=== PATIENT | female | born 1950 | race Caucasian/White ===

== ENCOUNTER 2018-03-09 00:25 | Outpatient (CLI) | payer OTHER, SELFPAY ==
--- NOTE | 2018-03-09 16:17 | DI.MAMMO_ITS ---
SYMPTOM/DIAGNOSIS: SCREENING, Z12.31 MAMMOGRAMS: Mammograms were interpreted according to the usual protocol including computer analysis with CAD system, tomosynthesis and C view imaging. The breast tissue is heterogeneously radiodense which lowers the sensitivity of the study. There is no dominant mass. There are no suspicious calcifications. When compared with the previous images, there is a question regarding interval development of a small area of nodularity in the superior portion of the left breast. Further evaluation of this patient with a craniocaudad and mediolateral compression spot film and ultrasound is recommended to rule out the possibility of a small malignancy. IMPRESSION: Category 0. Breast density, category C. Further evaluation with compression spot films and ultrasound. SA ASSESSMENT OF FINDINGS: Incomplete: Needs additional imaging evaluation. Category 0. Patient will receive a letter notifying them of these results. Bi-RADS category C. The breasts are heterogeneously dense, which may obscure small masses.
== END 2018-03-09 00:45 ==
PROVIDERS: PCP Family Medicine; Visit Provider Family Medicine
DX: Z12.31 Encounter for screening mammogram for malignant neoplasm of breast (principal); R92.8 Other abnormal and inconclusive findings on diagnostic imaging of breast
CPT/HCPCS: 77063; 77067

== ENCOUNTER 2018-03-14 01:17 | Outpatient (CLI) | payer OTHER, SELFPAY ==
--- NOTE | 2018-03-14 10:02 | DI.MAMMO_ITS ---
SYMPTOM/DIAGNOSIS: F/U MAMMO, NODULARITY LEFT BREAST ADDITIONAL VIEWS: Additional images are interpreted according to the usual protocol including tomosynthesis and 2D imaging. CC and MLO spot compression views were performed of the upper and central portions of the left breast for a questioned nodular asymmetry. No persistent abnormality or change is seen on the additional views performed. The findings are consistent with overlying fibroglandular tissue. IMPRESSION: Category 1B, negative mammogram. Yearly screening mammography is recommended. RUST ASSESSMENT OF FINDINGS: Negative. Category 1. Patient will receive a letter notifying them of these results. BI-RADS category B. There are scattered areas of fibroglandular density.
== END 2018-03-14 01:37 ==
PROVIDERS: PCP Family Medicine; Visit Provider Family Medicine
DX: Z12.31 Encounter for screening mammogram for malignant neoplasm of breast (principal); R92.8 Other abnormal and inconclusive findings on diagnostic imaging of breast; N64.59 Other signs and symptoms in breast
CPT/HCPCS: 77063; 77067

== ENCOUNTER 2018-05-10 12:17 | Outpatient (CLI) | payer OTHER, SELFPAY ==
[2018-05-10 12:51] LABS: Abs Immature Grans 0.01 k/cumm (0.0-0.09); Absolute Basophil Count 0.03 k/cumm (0.0-0.2); Absolute Eosinophil Count 0.18 k/cumm (0.0-0.7); Absolute Lymphocyte Count 1.19 k/cumm (1.2-3.4); Absolute Monocyte Count 0.57 k/cumm (0.11-0.7); Absolute Neutrophil Count 3.54 k/cumm (1.2-6.7); Basophils % 0.5; Eosinophils % 3.3; HCT 37.5 % (36.0-46.0); Immature Grans % 0.2; Lymphocytes % 21.6; Mean Corp. HGB Concentration 34.7 g/dL (32.0-36.0); Mean Corpuscular Hemoglobin 32.4 pg (27.0-33.0); Mean Corpuscular Volume 93.5 fL (80-95); Mean Platelet Volume 8.7 fL (8.0-11.0); Monocytes % 10.3; Neutrophils % 64.1; Platelet Count 200 x1000/uL (130-400); RBC 4.01 m/cumm (4.00-5.20); White Blood Cell Count 5.52 k/cumm (4.4-10.8)
[2018-05-10 13:08] LABS: ALT 35 U/L (12-78); AST 23 U/L (15-37); Albumin 4.2 g/dL (3.4-5.0); Alkaline Phosphatase 98 U/L (46-116); Anion Gap 10.2 mmol/L (3-11); BUN 30 mg/dL (7-18); Bilirubin, Total 0.8 mg/dL (0.2-1.0); CO2 29.8 mmol/L (21.0-32.0); CREATININE 1.12 mg/dL (0.55-1.02); Chloride 100 mmol/L (98-107); Estimated GFR 48.82 (mL/min/1.73m2); Glucose 91 mg/dL (70-100); LDH 205 U/L (81-234); Sodium 140 mmol/L (136-145); Total Protein 7.8 g/dL (6.4-8.2)
== END 2018-05-10 12:37 ==
PROVIDERS: PCP Family Medicine; Visit Provider Internal Medicine Hematology & Oncology
DX: C83.30 Diffuse large B-cell lymphoma, unspecified site (principal); Z94.81 Bone marrow transplant status
CPT/HCPCS: 36415; 80053; 83615; 85025

== ENCOUNTER 2018-05-25 00:37 | Outpatient (CLI) | payer OTHER, SELFPAY ==
--- NOTE | 2018-05-25 13:55 | MERGE_ITS ---
*[facility]* *[facility]* [address] [place] [address] Date of study: 05/25/2018 Transthoracic Echocardiography M-mode, complete 2D, complete spectral Doppler, and color Doppler *STUDY CONCLUSIONS* Summary: 1. Left ventricle: The cavity size was normal. Systolic function was at the lower limits of normal. The estimated ejection fraction was 50-55%. Some parameters suggest diastolic dysfunction. There was no evidence of elevated ventricular filling pressure by Doppler parameters. 2. Mitral valve: There was moderate regurgitation. 3. Right ventricle: The cavity size was normal. Wall thickness was normal. Systolic function was normal. 4. Atrial septum: No defect or patent foramen ovale was identified. 5. Tricuspid valve: There was mild-moderate regurgitation. 6. Pulmonary arteries: Pulmonary systolic pressure was in the range of 15mm Hg to 25mm Hg. 7. Inferior vena cava: The vessel was patent and normal in size. The respirophasic diameter changes were in the normal range (greater than or equal to 50%), consistent with normal central venous pressure. *PATIENT PRESENTATION* Height: 157.5cm ((62in) ) S/D Pressure: 93 / 54 Weight: 66.7kg ((146.7lb) ) BSA: 1.73m^2 Test start time: 02:10 PM. Test stop time: 03:10 PM. CONSULTING Belén Griffin PERFORMING Unknown PERFORMING [facility] TRANSONIC ENGINEER Hanna Montgomery, (R)(CT), [facility] ORDERING Gabi Easley REFERRING Gabi Easley *PROCEDURE DATA* Procedure information: The patient was identified by two identifiers. This study was interpreted by [facility]. Pertinent images and digital data are archived for permanent storage and are available for subsequent review. No prior study was available for comparison. Study status: Routine. Transthoracic echocardiography. M-mode, complete 2D, complete spectral Doppler, and color Doppler. A Transthoracic Echocardiogram was performed. Scanning was performed from the parasternal, apical, subcostal, and suprasternal notch acoustic windows. Images were obtained using an [id number] cardiac ultrasound machine. Image quality was good. Study completion: The patient tolerated the procedure well. 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 *CARDIAC ANATOMY* Left ventricle: The cavity size was normal. Systolic function was at the lower limits of normal. The estimated ejection fraction was 50-55%. The tissue Doppler parameters were abnormal. Some parameters suggest diastolic dysfunction. There was no evidence of elevated ventricular filling pressure by Doppler parameters. Aortic valve: Trileaflet. Doppler: There was no stenosis. There was no regurgitation. VTI ratio of LVOT to aortic valve: 0.74. Valve area (VTI): 2.3cm^2. Indexed valve area (VTI): 1.3cm^2/m^2. Peak velocity ratio of LVOT to aortic valve: 0.71. Valve area (Vmax): 2.2cm^2. Indexed valve area (Vmax): 1.3cm^2/m^2. Mean velocity ratio of LVOT to aortic valve: 0.61. Valve area (Vmean): 1.9cm^2. Indexed valve area (Vmean): 1.1cm^2/m^2. Mean gradient (S): 2.6mm Hg. Peak gradient (S): 4.4mm Hg. Aorta: Aortic root: The aortic root was normal in size. Ascending aorta: The ascending aorta was normal in size. Mitral valve: Doppler: There was no evidence for stenosis. There was moderate regurgitation. Valve area by pressure half-time: 3.7cm^2. Indexed valve area by pressure half-time: 2.2cm^2/m^2. Left atrium: The atrium was normal in size. Atrial septum: No defect or patent foramen ovale was identified. Right ventricle: The cavity size was normal. Wall thickness was normal. Systolic function was normal. Pulmonic valve: Doppler: There was no evidence for stenosis. There was no significant regurgitation. Tricuspid valve: Doppler: There was mild-moderate regurgitation. Pulmonary artery: Poorly visualized. Pulmonary systolic pressure was in the range of 15mm Hg to 25mm Hg. Right atrium: The atrium was normal in size. Pericardium: There was no pericardial effusion. Systemic veins: Inferior vena cava: Well visualized. The vessel was patent and normal in size. The respirophasic diameter changes were in the normal range (greater than or equal to 50%), consistent with normal central venous pressure. Baseline ECG: Normal sinus rhythm. Measurements Left ventricle Value Reference LV ID, ED, PLAX 4.3 cm 3.5 - 6.0 LV ID, ES, PLAX 2.8 cm 2.1 - 4.0 LV PW thickness, ED, PLAX 0.8 cm LV end-diastolic volume, 1-p A2C 51 ml LV ejection fraction, 1-p A2C 52 % LV end-diastolic volume, 1-p A4C 64 ml LV ejection fraction, 1-p A4C 49 % LV e', lateral 0.067 m/sec LV E/e', lateral 9 LV e', medial 0.046 m/sec LV E/e', medial 13 LV e', average 0.057 m/sec LV E/e', average 10 Ventricular septum Value Reference IVS thickness, ED, PLAX 0.8 cm LVOT Value Reference LVOT ID, A-P 2.0 cm LVOT area 3.1 cm^2 LVOT peak velocity, S 0.74 m/sec LVOT mean velocity, S 0.47 m/sec LVOT VTI, S 15.6 cm LVOT peak gradient, S 2.2 mm Hg LVOT mean gradient, S 1 mm Hg Stroke volume (SV), LVOT DP 48 ml Stroke index (SV/bsa), LVOT DP 28 ml/m^2 Aortic valve Value Reference Aortic valve peak velocity, S 1 m/sec Aortic valve mean velocity, S 0.77 m/sec Aortic valve VTI, S 21.0 cm Aortic mean gradient, S 2.6 mm Hg Aortic peak gradient, S 4.4 mm Hg VTI ratio, LVOT/AV 0.74 Aortic valve area, VTI 2.3 cm^2 Velocity ratio, peak, LVOT/AV 0.71 Aortic valve area, peak velocity 2.2 cm^2 Velocity ratio, mean, LVOT/AV 0.61 Aortic valve area, mean velocity 1.9 cm^2 Aortic valve area/bsa, mean velocity 1.1 cm^2/m^2 Aorta Value Reference Aortic root ID, ED 2.9 cm Ascending aorta ID, A-P, S 2.8 cm Left atrium Value Reference LA ID, A-P, ES 3.4 cm LA ID/bsa, A-P 2.0 cm/m^2 <=2.2 LA area, ES, A4C 14.2 cm^2 8.8 - 23.4 LA area, ES, A2C 15 cm^2 LA volume/bsa, ES, 1-p A4C 23 ml/m^2 LA volume, ES, 2-p 38 ml LA volume/bsa, ES, 2-p 22 ml/m^2 LA/aortic root ratio 1.15 Mitral valve Value Reference Mitral E-wave peak velocity 0.58 m/sec Mitral A-wave peak velocity 0.86 m/sec Mitral deceleration time 203 ms 150 - 230 Mitral pressure half-time 59 ms Mitral E/A ratio, peak 0.68 Mitral valve area, PHT, DP 3.7 cm^2 Tricuspid valve Value Reference Tricuspid regurg peak velocity 2.1 m/sec Tricuspid peak RV-RA gradient 17.5 mm Hg Right atrium Value Reference RA area, ES, A4C 10.4 cm^2 8.3 - 19.5 Legend: (L) and (H) enio values outside specified reference range. I have personally reviewed the images and have reviewed and edited the reported findings. Electronically signed by Joshua Newton MD 05/25/2018 17:38
== END 2018-05-25 00:57 ==
PROVIDERS: PCP Family Medicine; Visit Provider Nurse Practitioner Family
DX: C83.30 Diffuse large B-cell lymphoma, unspecified site (principal); Z92.21 Personal history of antineoplastic chemotherapy; Z94.81 Bone marrow transplant status; I08.1 Rheumatic disorders of both mitral and tricuspid valves
CPT/HCPCS: 93306

== ENCOUNTER 2018-11-28 13:01 | Outpatient (CLI) | payer OTHER, SELFPAY ==
[2018-11-28 13:34] LABS: Abs Immature Grans 0.01 k/cumm (0.0-0.09); Absolute Basophil Count 0.02 k/cumm (0.0-0.2); Absolute Eosinophil Count 0.16 k/cumm (0.0-0.7); Absolute Lymphocyte Count 1.17 k/cumm (1.2-3.4); Absolute Monocyte Count 0.44 k/cumm (0.11-0.7); Absolute Neutrophil Count 3.53 k/cumm (1.2-6.7); Basophils % 0.4; HCT 35.4 % (36.0-46.0); HGB 11.9 g/dL (12.0-15.5); Immature Grans % 0.2; Mean Corp. HGB Concentration 33.6 g/dL (32.0-36.0); Mean Corpuscular Hemoglobin 31.8 pg (27.0-33.0); Mean Corpuscular Volume 94.7 fL (80-95); Mean Platelet Volume 8.7 fL (8.0-11.0); Monocytes % 8.3; Neutrophils % 66.1; Platelet Count 207 x1000/uL (130-400); RBC 3.74 m/cumm (4.00-5.20); RBC Distribution Width 12.3 % (11.7-14.6); White Blood Cell Count 5.33 k/cumm (4.4-10.8)
[2018-11-28 14:14] LABS: ALT 50 U/L (14-59); AST 21 U/L (15-37); Albumin 3.9 g/dL (3.4-5.0); Alkaline Phosphatase 101 U/L (46-116); Anion Gap 8.6 mmol/L (3-11); BUN 31 mg/dL (7-18); Bilirubin, Total 0.6 mg/dL (0.2-1.0); CO2 31.4 mmol/L (21.0-32.0); CREATININE 0.93 mg/dL (0.55-1.02); Calcium 9.6 mg/dL (8.5-10.1); Chloride 103 mmol/L (98-107); Glucose 103 mg/dL (70-100); LDH 197 U/L (81-234); Potassium 3.7 mmol/L (3.5-5.1); Sodium 143 mmol/L (136-145)
== END 2018-11-28 13:21 ==
PROVIDERS: PCP Family Medicine; Visit Provider Internal Medicine Hematology & Oncology
DX: C83.30 Diffuse large B-cell lymphoma, unspecified site (principal)
CPT/HCPCS: 36415; 80053; 83615; 85025

== ENCOUNTER 2019-06-06 01:49 | Outpatient (CLI) | payer MEDICARE, BC, SELFPAY ==
[2019-06-06 16:04] LABS: Abs Immature Grans 0.01 k/cumm (0.0-0.09); Absolute Basophil Count 0.01 k/cumm (0.0-0.2); Absolute Eosinophil Count 0.16 k/cumm (0.0-0.7); Absolute Lymphocyte Count 1.34 k/cumm (1.2-3.4); Absolute Monocyte Count 0.48 k/cumm (0.11-0.7); Basophils % 0.2; Eosinophils % 3.1; HCT 37.1 % (36.0-46.0); HGB 12.9 g/dL (12.0-15.5); Immature Grans % 0.2 %; Lymphocytes % 25.8; Mean Corp. HGB Concentration 34.8 g/dL (32.0-36.0); Mean Corpuscular Hemoglobin 32.5 pg (27.0-33.0); Mean Corpuscular Volume 93.5 fL (80-95); Mean Platelet Volume 8.8 fL (8.0-11.0); Monocytes % 9.2; Neutrophils % 61.5; Platelet Count 211 x1000/uL (130-400); RBC 3.97 m/cumm (4.00-5.20); RBC Distribution Width 12.4 % (11.7-14.6)
[2019-06-06 16:06] LABS: ALT 35 U/L (14-59); AST 20 U/L (15-37); Albumin 4.1 g/dL (3.4-5.0); Alkaline Phosphatase 100 U/L (46-116); Anion Gap 6.5 mmol/L (3-11); BUN 33 mg/dL (7-18); Bilirubin, Total 0.6 mg/dL (0.2-1.0); CO2 32.5 mmol/L (21.0-32.0); CREATININE 1.05 mg/dL (0.55-1.02); Calcium 9.9 mg/dL (8.5-10.1); Chloride 101 mmol/L (98-107); Estimated GFR 52.43 (mL/min/1.73m2); Glucose 92 mg/dL (74-106); LDH 223 U/L (81-234); Potassium 4.2 mmol/L (3.5-5.1); Sodium 140 mmol/L (136-145); Total Protein 7.8 g/dL (6.4-8.2)
== END 2019-06-06 02:09 ==
PROVIDERS: PCP Family Medicine; Visit Provider Internal Medicine Hematology & Oncology
DX: C83.30 Diffuse large B-cell lymphoma, unspecified site (principal)
CPT/HCPCS: 36415; 80053; 83615; 85025

== ENCOUNTER 2019-07-03 01:32 | Outpatient (CLI) | payer MEDICARE, BC, SELFPAY ==
--- NOTE | 2019-07-03 07:30 | DI.MAMMO_ITS ---
EXAM: MG MAMMO SCREENING CLINICAL HISTORY: screening,Z12.39 TECHNIQUE: Bilateral full field digital CC and MLO mammographic images were obtained with 3D tomosyn thesis and utilizing computer aided detection (CAD). COMPARISON: Available for comparison. FINDINGS: Masses/Architectural Distortion: None seen. There is asymmetric breast tissue in the upper central le ft breast on the mediolateral oblique view. Microcalcifications: No suspicious pleomorphic-type are seen. Skin Thickening/Nipple Retraction: None. IMPRESSION: 1. Asymmetric breast tissue in the upper central left breast on the MLO view. 2. Further evaluation with a spot compression views recommended. Ultrasound may be indicated at that time. BI-RADS Category 0 - Assessment Incomplete: Need additional imaging evaluation Breast Density - Category B - Scattered areas of fibroglandular density A negative radiographic report should not delay biopsy if a dominant or clinically suspicious mass is present. Up to ten percent of cancers are not identified on mammography. A negative report may reinforce clinical impression. Adenosis and dense breasts may obscure an underlying neoplasm. False positive reports average 6 to 10%. Patient will receive a letter notifying them of these results.
--- NOTE | 2019-07-03 14:15 | DI.RAD_ITS ---
EXAM: XR LUMBAR SPINE COMPLETE CLINICAL HISTORY: LBP, DORSALGIA, BACK PAIN, M54.9. TECHNIQUE: 2D digital imaging was performed. COMPARISON: CT CHEST WITH CONTRAST from 02/26/2014 FINDINGS: There are 5 lumbar type vertebral bodies. There is a right convex scoliosis of the thoracolumbar spi ne. No acute fracture or subluxation is identified. Disc space narrowing is seen throughout the lum bar spine with relative sparing of the L5-S1 disc space. Vacuum discs are seen at T12-L1 and L4-L5. Degenerative changes of the facets are present throughout the lumbar spine particularly from L3-4 th rough L5-S1. Moderate amount of retained stool is seen throughout the colon. IMPRESSION: 1. 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 2. Dextroscoliosis of the thoracolumbar spine. 3. Constipation. DATA REPOSITORY: RADIATION DOSE DELIVERED:
--- NOTE | 2019-07-03 14:15 | DI.RAD_ITS ---
EXAM: XR HIP PELVIS ADULT BL CLINICAL HISTORY: hip pain B/L, M25.559. TECHNIQUE: 2D digital imaging was performed. COMPARISON: No exams were available for comparison FINDINGS: BONES: No acute fracture is present. No bony destructive lesion is seen. JOINTS: No dislocation present. SOFT TISSUE: Normal. IMPRESSION: Unrmarkable radiographs of bilat hips. Unremarkable radiographs of the pelvis DATA REPOSITORY: RADIATION DOSE DELIVERED:
== END 2019-07-03 01:52 ==
PROVIDERS: PCP Family Medicine; Visit Provider Family Medicine
DX: Z12.31 Encounter for screening mammogram for malignant neoplasm of breast (principal); R92.8 Other abnormal and inconclusive findings on diagnostic imaging of breast; M25.551 Pain in right hip; M25.552 Pain in left hip; M54.5 Low back pain; M51.36 Other intervertebral disc degeneration, lumbar region; M47.816 Spondylosis without myelopathy or radiculopathy, lumbar region
CPT/HCPCS: 73521; 77063; 77067; 72110

== ENCOUNTER 2019-07-05 02:10 | Outpatient (CLI) | payer MEDICARE, BC, SELFPAY ==
--- NOTE | 2019-07-05 | DI.US_ITS ---
EXAM: MG MAMMO SCREEN CALL BACK UNI CLINICAL HISTORY: F/U MAMMO,ASYMMETRIC BREAST TISSUE,R92.8. TECHNIQUE: Craniocaudal and mediolateral oblique Full Field Digital Mammography views of the left br east with Computer Aided Diagnosis followed by Tomosynthesis and left breast ultrasound. COMPARISON: Priors available for comparison FINDINGS: Mammography/Tomosynthesis: Masses/Architectural Distortion: None seen. Microcalcifictions: No suspicious pleomorphic-type are seen. Skin Thickening/Nipple Retraction: None. Left breast US: Echotexture: Normal appearance of the glandular tissue. Shadowing: No suspicious foci. Cyst: None. Solid lesions: None seen. Ductal dilation: None. IMPRESSION: 1. No evidence of malignancy is noted. 2. Unless there is more urgent need, follow-up screening mammography is recommended, as per [employer] guidelines. 3. The findings were discussed with the patient on the date of the examination. BI-RADS Category 1 - Negative Breast Density - Category B - Scattered areas of fibroglandular density A negative radiographic report should not delay biopsy if a dominant or clinically suspicious mass is present. Up to ten percent of cancers are not identified on mammography. A negative report may reinforce clinical impression. Adenosis and dense breasts may obscure an underlying neoplasm. False positive reports average 6 to 10%. Patient will receive a letter notifying them of these results.
== END 2019-07-05 02:30 ==
PROVIDERS: PCP Family Medicine; Visit Provider Family Medicine
DX: Z12.31 Encounter for screening mammogram for malignant neoplasm of breast (principal); R92.8 Other abnormal and inconclusive findings on diagnostic imaging of breast; N64.59 Other signs and symptoms in breast
CPT/HCPCS: 76642; 77063; 77067

== ENCOUNTER 2019-09-11 09:38 | Outpatient (CLI) | payer MEDICARE, BC, SELFPAY ==
[2019-09-13 23:08] LABS: SARS-CoV-2 RNA Undetected (Undetected); SARS-CoV-2 Specimen Source Nasopharynx
== END 2019-09-11 09:58 ==
PROVIDERS: PCP Family Medicine; Visit Provider Family Medicine
DX: Z11.59 Encounter for screening for other viral diseases (principal)
CPT/HCPCS: U0003

== ENCOUNTER 2019-12-17 03:07 | Outpatient (CLI) | payer OTHER, MEDICARE, SELFPAY ==
[2019-12-17 16:02] LABS: Abs Immature Grans 0.01 10^3/uL (0.0-0.06); Absolute Basophil Count 0.03 10^3/uL (0.0-0.2); Absolute Eosinophil Count 0.14 10^3/uL (0.0-0.7); Absolute Lymphocyte Count 1.27 10^3/uL (1.2-3.4); Absolute Neutrophil Count 3.05 10^3/uL (1.2-6.7); Basophils % 0.6; Eosinophils % 2.7; HGB 11.9 g/dL (11.2-15.7); Immature Grans % 0.2; Lymphocytes % 24.9; MCH 31.8 pg (27.0-33.0); MCV 93.6 fL (80-95); MPV 9.1 fL (8.0-11.0); Monocytes % 11.8; Neutrophils % 59.8; Nucleated RBC 0 %; Platelet Count 180 10^3/uL (130-400); RBC 3.74 10^6/uL (3.93-5.22); RDW 11.9 % (11.7-14.6); RDW-SD 40.7 fL
[2019-12-17 17:04] LABS: ALT 45 U/L (14-59); AST 21 U/L (15-37); Albumin 3.8 g/dL (3.4-5.0); Alkaline Phosphatase 83 U/L (46-116); Anion Gap 7.2 mmol/L (3-11); BUN 37 mg/dL (7-18); Bilirubin, Total 0.6 mg/dL (0.2-1.0); CO2 28.8 mmol/L (21.0-32.0); CREATININE 1.13 mg/dL (0.55-1.02); Calcium 9.8 mg/dL (8.5-10.1); Chloride 104 mmol/L (98-107); Estimated GFR 48.03 (mL/min/1.73m2); Glucose 89 mg/dL (74-106); LDH 203 U/L (81-234); Potassium 3.9 mmol/L (3.5-5.1); Sodium 140 mmol/L (136-145); Total Protein 6.9 g/dL (6.4-8.2)
== END 2019-12-17 03:27 ==
PROVIDERS: PCP Family Medicine; Visit Provider Internal Medicine Hematology & Oncology
DX: C83.30 Diffuse large B-cell lymphoma, unspecified site (principal); Z94.81 Bone marrow transplant status
CPT/HCPCS: 36415; 80053; 83615; 85025

== ENCOUNTER 2020-06-26 02:01 | Outpatient (CLI) | payer OTHER, MEDICARE, SELFPAY ==
[2020-06-27 15:52] LABS: COVID-19 RT-PCR UVMMC Result Negative (Negative)
== END 2020-06-26 02:02 | disposition home or self-care (01) ==
LOC: LBO 02:01
PROVIDERS: PCP Family Medicine; Visit Provider Family Medicine
DX: Z20.822 Contact with and (suspected) exposure to COVID-19 (principal)
CPT/HCPCS: U0003

== ENCOUNTER 2020-07-16 02:57 | Outpatient (CLI) | payer OTHER, MEDICARE, SELFPAY ==
[2020-07-17 13:31] LABS: COVID-19 RT-PCR UVMMC Result Negative (Negative)
== END 2020-07-16 02:58 | disposition home or self-care (01) ==
LOC: LBO 02:57
PROVIDERS: PCP Family Medicine; Visit Provider Family Medicine
DX: Z20.822 Contact with and (suspected) exposure to COVID-19 (principal)
CPT/HCPCS: U0003

== ENCOUNTER 2020-08-05 02:54 | Outpatient (CLI) | payer OTHER, MEDICARE, SELFPAY ==
[2020-08-06 14:22] LABS: COVID-19 RT-PCR UVMMC Result Negative (Negative)
== END 2020-08-05 02:55 | disposition home or self-care (01) ==
LOC: LBO 02:54
PROVIDERS: PCP Family Medicine; Visit Provider Family Medicine
DX: Z20.822 Contact with and (suspected) exposure to COVID-19 (principal)
CPT/HCPCS: U0003

== ENCOUNTER 2021-04-07 02:05 | Outpatient (CLI) | payer OTHER, MEDICARE, SELFPAY ==
--- NOTE | 2021-04-07 06:45 | DI.MAMMO_ITS ---
Exam(s) MAMMO SCREENING EXAM: MAMMO SCREENING CLINICAL HISTORY: screening,z12.39 TECHNIQUE: Mammograms were interpreted according to the usual protocol including computer analysis w [employer] CAD system, tomosynthesis and C-view imaging. COMPARISON: FINDINGS: The breasts are of moderate density with fairly symmetrical distribution of fibroglandular tissue. N o dominant mass or clumped microcalcification is identified in either breast. The current examinatio n is compared with previous examinations including June 2019 and there has been no gross interval foster ge in appearance in comparison with the prior studies. IMPRESSION: No specific evidence of malignancy at this time. Routine screening examinations are suggested at yea rly intervals in this age group according to the ACS ACR guidelines. BI-RADS Category 1 - Negative Breast Density - Category B - Scattered areas of fibroglandular density
== END 2021-04-07 02:25 ==
PROVIDERS: PCP Family Medicine; Visit Provider Family Medicine
DX: Z12.31 Encounter for screening mammogram for malignant neoplasm of breast (principal)
CPT/HCPCS: 77063; 77067

== ENCOUNTER 2021-08-24 15:16 | Outpatient (REF) | payer MEDICARE, OTHER, SELFPAY ==
[2021-08-25 14:40] LABS: COVID-19 RT-PCR UVMMC Result Negative (Negative)
== END 2021-08-24 15:17 | disposition home or self-care (01) ==
LOC: LBN 15:16
PROVIDERS: PCP Family Medicine; Visit Provider Family Medicine
DX: Z20.822 Contact with and (suspected) exposure to COVID-19 (principal)
CPT/HCPCS: U0003

== ENCOUNTER 2022-04-12 02:47 | Outpatient (CLI) | payer MEDICARE, OTHER, SELFPAY ==
[2022-04-12 09:24] LABS: HCT 37.9 % (36.0-46.0); MCH 31.4 pg (27.0-33.0); MCHC 34.3 % (32.0-36.0); MCV 92 fL (80-95); MPV 8.9 fL (8.0-11.0); Platelet Count 183 10^3/uL (130-400); RBC 4.14 10^6/uL (3.93-5.22); RDW 12.3 % (11.7-14.6); RDW-SD 41.1 fL; WBC 5.45 10^3/uL (4.4-10.8)
[2022-04-12 10:12] LABS: Iron 99 ug/dL (50-170)
[2022-04-12 10:25] LABS: TSH (W/Ref FT4) 1.77 uIU/mL (0.36-3.74)
== END 2022-04-12 02:48 | disposition home or self-care (01) ==
LOC: LBO 02:47
PROVIDERS: PCP Family Medicine; Visit Provider Family Medicine
DX: F32.9 Major depressive disorder, single episode, unspecified (principal); C85.90 Non-Hodgkin lymphoma, unspecified, unspecified site
CPT/HCPCS: 36415; 85027; 83540; 84443

== ENCOUNTER 2022-05-07 00:51 | Outpatient (CLI) | payer MEDICARE, SELFPAY ==
--- NOTE | 2022-05-07 08:00 | DI.MAMMO_ITS ---
Exam(s) MAMMO SCREENING EXAM: MAMMO SCREENING CLINICAL HISTORY: screening,Z12.39 TECHNIQUE: Bilateral full field digital CC and MLO mammographic images were obtained with 3D tomosyn thesis and utilizing computer aided detection (CAD). COMPARISON: Available for comparison. FINDINGS: Masses/Architectural Distortion: None seen. Microcalcifications: No suspicious pleomorphic-type are seen. Skin Thickening/Nipple Retraction: None. IMPRESSION: 1. No significant interval change with no specific features of malignancy noted. 2. Unless there is more urgent need, screening mammography is recommended, as per [employer] guidelines. BI-RADS Category 1 - Negative Breast Density - Category B - Scattered areas of fibroglandular density Breast density category C or D implies that the patient has dense breast tissue. Dense breast tissue is very common and is not abnormal but dense breast tissue can make it harder to find cancer on a ma mmogram. Also, dense breast tissue may increase their breast cancer risk. This information about the result of the mammogram report was provided to the patient to raise their awareness. Use this report when you speak with the patient about their risks for breast cancer, which includes their family hist ory. At that time, you may recommend for more screening tests (Ultrasound or MRI) as they might be us eful based on their risk. A negative radiographic report should not delay biopsy if a dominant or clinically suspicious mass is present. Up to ten percent of cancers are not identified on mammography. A negative report may reinforce clinical impression. Adenosis and dense breasts may obscure an underlying neoplasm. False positive reports average 6 to 10%. Patient will receive a letter notifying them of these results.
--- NOTE | 2022-05-07 08:00 | DI.DEXA_ITS ---
Exam(s) XR DEXA BONE DENSITY W/WO RACHEL EXAM: XR DEXA BONE DENSITY W/WO RACHEL CLINICAL HISTORY: OSTEOPOROSIS, M81.0 TECHNIQUE: COMPARISON: CR XR LUMBAR SPINE COMPLETE from 07/03/2019.Comparison DEXA scan is 03/02/2004. FINDINGS: Lateral Spine Image: Unremarkable. No compression deformities identified. Left hip: Total T-Score: -1.9. Compares to -0.9 on the prior examination. Total Z-Score: -0.4 T- and Z-scores: Findings are consistent with osteopenia. Left forearm: Total T-Score: -0.5 Total Z-Score: 1.5 T- and Z-scores: Within normal limits. IMPRESSION: No evidence of osteoporosis.
== END 2022-05-07 01:11 ==
LOC: DI 00:52
PROVIDERS: PCP Family Medicine; Visit Provider Family Medicine
DX: Z12.31 Encounter for screening mammogram for malignant neoplasm of breast (principal); M81.0 Age-related osteoporosis without current pathological fracture; M85.88 Other specified disorders of bone density and structure, other site
CPT/HCPCS: 77063; 77067; 77080

== ENCOUNTER 2023-10-12 08:58 | Outpatient (CLI) | payer MEDICARE, SELFPAY ==
[2023-10-12 08:30] LABS: ESR 7 mm/hr (0-30); HGB 12.5 g/dL (11.2-15.7); MCH 31.7 pg (27.0-33.0); MCHC 34.7 % (32.0-36.0); MCV 91 fL (80-95); Platelet Count 190 10^3/uL (130-400); RBC 3.94 10^6/uL (3.93-5.22); RDW 12.2 % (11.7-14.6); RDW-SD 41.1 fL; WBC 3.94 10^3/uL (4.4-10.8)
[2023-10-12 08:54] LABS: ALT 40 U/L (14-59); AST 22 U/L (15-37); Albumin 3.7 g/dL (3.4-5.0); Alkaline Phosphatase 84 U/L (46-116); Anion Gap 7.7 mmol/L (3-11); BUN 26 mg/dL (7-18); Bilirubin, Total 0.86 mg/dL (0.2-1.0); C-Reactive Protein < 0.50 mg/dL (<or=0.5); CO2 30.3 mmol/L (21.0-32.0); CREATININE 1.3 mg/dL (0.55-1.02); Chloride 102 mmol/L (98-107); Estimated GFR 43.96 (mL/min/1.73m2); Glucose 135 mg/dL (74-106); Potassium 3.7 mmol/L (3.5-5.1); Sodium 140 mmol/L (136-145); Total Protein 7.1 g/dL (6.4-8.2)
[2023-10-12 09:28] LABS: Calculated LDL 178 mg/dL (<100); Cholesterol 277 mg/dL (<200); HDL Cholesterol 89 mg/dL (40-60); Triglyceride 53 mg/dL (<150); Vitamin D 25 Total 54.2 ng/mL (30-100)
[2023-10-12 10:42] LABS: Hemoglobin A1C 5.8 % (<5.7)
== END 2023-10-12 08:59 | disposition home or self-care (01) ==
LOC: LBO 08:59
PROVIDERS: PCP Family Medicine; Visit Provider Family Medicine
DX: C85.90 Non-Hodgkin lymphoma, unspecified, unspecified site (principal); G47.00 Insomnia, unspecified; R53.83 Other fatigue; I10 Essential (primary) hypertension; E03.9 Hypothyroidism, unspecified; R73.09 Other abnormal glucose
CPT/HCPCS: 36415; 80053; 80061; 82306; 85027; 85652; 83036; 84443; 86140

== ENCOUNTER 2023-10-21 08:38 | Outpatient (CLI) | payer MEDICARE, SELFPAY ==
[2023-10-21 07:43] LABS: ESR 5 mm/hr (0-30)
[2023-10-21 09:27] LABS: ALT 42 U/L (14-59); AST 22 U/L (15-37); Albumin 4.2 g/dL (3.4-5.0); Alkaline Phosphatase 95 U/L (46-116); Anion Gap 5.9 mmol/L (3-11); BUN 28 mg/dL (7-18); Bilirubin, Total 1.25 mg/dL (0.2-1.0); CO2 33.1 mmol/L (21.0-32.0); CREATININE 1.1 mg/dL (0.55-1.02); Calcium 10.4 mg/dL (8.5-10.1); Chloride 102 mmol/L (98-107); Estimated GFR 53.72 (mL/min/1.73m2); Glucose 95 mg/dL (74-106); Potassium 4.2 mmol/L (3.5-5.1); Sodium 141 mmol/L (136-145); Total Protein 7.4 g/dL (6.4-8.2); Vitamin B12 764 pg/mL (193-986)
[2023-10-21 09:38] LABS: Uric Acid 5.7 mg/dL (2.6-6.0)
[2023-10-21 18:17] LABS: Rheumatoid Factor <8.6 IU/mL (<12.0)
[2023-10-24 13:40] LABS: ANA Interpretation Positive (Negative)
== END 2023-10-21 08:39 | disposition home or self-care (01) ==
LOC: LBO 08:40
PROVIDERS: PCP Family Medicine; Visit Provider Family Medicine
DX: I10 Essential (primary) hypertension (principal); M25.50 Pain in unspecified joint; G62.9 Polyneuropathy, unspecified; R76.8 Other specified abnormal immunological findings in serum
CPT/HCPCS: 36415; 80053; 85652; 82607; 84550; 86038; 86431

== ENCOUNTER 2023-10-26 03:41 | Outpatient (CLI) | payer MEDICARE, SELFPAY ==
[2023-10-27 16:56] LABS: RNP Ab, IgG <6.0 CU (<20.0); SS-B (La) Ab, IgG <3.3 CU (<20.0); Sm (Smith) Ab, IgG <8.0 CU (<20.0); dsDNA Ab, IgG <22.0 IU/mL (<27.0)
== END 2023-10-26 03:42 | disposition home or self-care (01) ==
LOC: LBO 03:41
PROVIDERS: PCP Family Medicine; Visit Provider Family Medicine
DX: R76.8 Other specified abnormal immunological findings in serum (principal)
CPT/HCPCS: 36415; 86225; 86235

== ENCOUNTER 2023-10-28 00:22 | Outpatient (CLI) | payer MEDICARE, SELFPAY ==
--- OUTSIDE RECORDS SUMMARY | 2023-10-28 00:40 | XMS_ITS | Clinical Summary ---
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 Broke out in maculopapular pruritic dermatitis on abdomen, chest, forehead and upper back. Medications Medication Sig Dispensed Refills Start Date End Date Status diphenhydrAMINE-acetam inophen (TYLENOL PM) 25-500 mg TabletIndications:Othe r drug-induced neutropenia Take by mouth every evening. Reported on 03/24/2016 Active acetaminophen (TYLENOL) 500 mg Tablet Take 1,000 mg by mouth every 6 hours as needed for Pain. Reported on 03/24/2016 Active escitalopram (LEXAPRO) 10 mg Tablet Take 10 mg by mouth daily. Active cholecalciferol, Vitamin D3, 400 unit TabletIndications:Stat us post autologous bone marrow transplant,Lymphoma in remission Take 400 Units by mouth daily. Active b complex vitamins Tablet Take 1 tablet by mouth daily. Active magnesium 250 mg Tablet Take 1 tablet by mouth daily. Active LORazepam (Ativan) 0.5 mg Tablet Take 0.25 mg by mouth every 6 hours as needed for Anxiety. Active fish oil-omega-3 fatty acids 1,000 mg Capsule Take 2 g by mouth daily. Active Active Problems Problem Noted Date Diagnosed Date Status post autologous bone marrow transplant Chemotherapy adverse reaction 12/20/2014 Hypokalemia 10/25/2014 Hypomagnesemia 10/25/2014 Neutropenia 10/25/2014 Overview (04/16/2015): Approximately 3 months post transplant. Acute neutropenia. Requiring Neulasta injections several times. 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 No evidence of viral infection. Drug suspected. Possibly Rituxan delayed neutropenia Lymphoma 03/21/2014 Overview (12/26/2015): [address] biopsy consistent with DLBCL. PET with stage III A disease. BMBx with low grade lymphoma; no large cell. LDH = 412. IPI = 3 (age, stage, LDH) PET 03/28/14 IMPRESSION: 1. Intensely hypermetabolic lymphadenopathy supraclavicular, infraclavicular, and in the axilla on the left as well as paratracheal along the mediastinum with pretracheal and hilar extension on the right. 2. Abnormal hypermetabolic lymphadenopathy paraaortocaval, in the bilateral common iliac, internal iliac, and external iliac as well as left inguinal region. The largest lymph nodes are seen in the left common iliac and in the right external iliac chain. Plan for RCHOP on ECOG protocol. E1412 Randomized Phase II Open Label Study of Lenalidomide R-CHOP (R2CHOP) vs RCHOP (Rituximab, Cyclophosphamide, Doxorubicin, Vincristine and Prednisone) in Patients with Newly Diagnosed Diffuse Large B Cell Lymphoma Arm B: RCHOP repeat every 3 weeks for total of 6 cycles ?? Cycle 1 R-CHOP given on 04/12/14, with Neulasta support ?? Cycle 2 R-CHOP given on 05/01/14, with Neulasta support PET after 3 cycles 05/2014 IMPRESSION: 1. Overall marked interval improvement, however, residual active lymphoma in the residual right paratracheal ammon mass. 2. No other sites of active lymphoma. C#6 completed 07/24/14 PET 09/02/14 IMPRESSION: 1. Partial but significant improvement of hypermetabolic right paratracheal conglomerate ammon mass consistent with lymphoma. 2. Slight interval decrease in size of non-FDG avid left axillary lymph nodes most likely representing treated lymphoma. 3. No other sites of active lymphoma. Bronch biopsy of persistent PET avid LN 09/26/14 DISCUSSION Lymph node: right R2 (EBUS-guided FNA): - Large B-cell lymphoma (see NOTE). Abnormal lymphocytes in this FNA specimen consist of a mixture of medium to large size cell with irregular nuclear contours, fine chromatin, variably prominent nucleoli and a moderate amount of cytoplasm. Occasional small lymphocytes and apoptotic bodies are seen in the background. The neoplastic cells are PAX5(weak)+ CD10- BCL6-/(weak/partial)+ MUM1- and strongly BCL2+. The immunostain for CD3 highlights reactive T-cells in the background. Flow cytometry immunophenotype analysis was performed concurrently (see separate report) and identified a monoclonal, kappa-restricted CD5- CD10- B-cell population. In summary, these morphologic and immunophenotypic findings are consistent with involvement of the lymph node by B-cell lymphoma, reflecting residual disease. Immunostaining for cell of origin was not informative according to the [employer]sem putty remover, but the strong BCL2 expression in the absence of MUM1 suggests a germinal center origin via the Muris putty remover. Lymphoma TB discussion 10/01/14 Recommendations for salvage chemotherapy and [facility] C#2 [facility] 11/04/14 PET scan negative! 11/25/14 ! AD[place] 12/17/14 [place] [facility] [place]ipheral BlN/ood Stem Cell Transplant ?? Conditioning regimen: Carmustine, Etoposide and Cyclophosphamide ?? Day 0 = 12/23/14 Reinfusion of Auto stem cells ?? Complications: N/V/D; Hemorrhoids; anorexia; low grade fevers( no infectious source. Thought to be d/t count recovery) ?? Transfusion support: 1 RBC transfusion on 12/31; 1 unit Plts on 12/29 ?? Engraftment: ANC on 01/03 (day + 11) Plts on 01/05 (day +13) Seven days after transfusion on 12/29 ?? PET scan in March: Negative ?? CT scan in December: Negative Depression with anxiety 03/21/2014 Resolved Problems Problem Noted Date Diagnosed Date Resolved Date LOUISE (acute kidney injury) 10/25/2014 Immunizations Name Administration Dates Next Due DTaP/Hep B/IPV 07/01/2016, 6,08/28/2015,07/28 HIB Vaccine PRP-T (ActHIB, H iberix, OmniHib) 07/01/2016,10/02/2015,08/28/2015,07/28 Hepatitis B (Engerix-B, Juan M mbivax) 0-19yrs 07/01/2016,10/02/2015,08/28/2015,07/28 Influenza PF, Split 11/06/2014 Influenza Trivalent w/Preservative 12/25/2015 Influenza Vaccine, Whole 01/03/2006,12/22/2004 MMR Vaccine LIVE 01/10/2017 Pneumococcal Conjugate (Prevnar 13) 08/28/2015,0 07/29/2015,04/24/2015 Pneumococcal Polysaccharide (Pneumovax 23) 07/01/2016 Social History Tobacco Use Types Packs/Day Years Used Date Smoking Tobacco: Never Smokeless Tobacco: Never Alcohol Use Standard Drinks/Week Comments Yes 2 (1 standard drink = 0.6 oz pur e alcohol) Sex and Gender Information Value Date Recorded Sex Assigned at Not on file Gender Identity Not on file Sexual Orientation Not on file Last Filed Vital Signs Vital Sign Reading Time Taken Comments Blood Pressure 130/73 12/26/2019 11:02 AM EST Pulse 80 12/26/2019 11:02 AM EST Temperature 35.8 ??C (96.4 ??F) 12/26/2019 11:[address] Respiratory Rate 16 12/26/2019 11:02 AM EST Oxygen Saturation 100% 12/26/2019 11:02 AM EST Inhaled Oxygen Concentration - - Weight 67.6 kg (149 lb) 12/26/2019 11:02 AM EST Height 157 cm (5' 1.81) 12/26/2019 11:02 AM EST Body Mass Index 27.42 12/26/2019 11:02 AM EST Plan of Treatment Upcoming Encounters Date Type Department Care Team (Late st Contact Info) Description 12/07/2023 12:00 PM EDT Office Visit Dermatology at [address] [place] [address] Juan F Chappell MD [facility] [address] [place] [address] Health Maintenance Due Date Last Done Comments CT Colonography 1950 Colonoscopy 1950 Colorectal Cancer Screening 1950 FIT DNA 1950 FIT 1950 Sigmoidoscopy (10 year) with FIT yearly 1950 Sigmoidoscopy 1950 Tdap adult 10/05/1971 Tetanus vaccine 10/05/1971 Breast Cancer Share Decision Needed 1992 Breast Cancer screening 1992 Zoster vaccine (1 of 2) 2002 Bone Density Scan 2017 Pneumoccocal Vaccine: 65+ (3 of 3 - PPSV23 or PCV20) 07/01/2021 07/01/2016, 08/28/2015, 07/29/2015, Additional history exists Covid-19 Vaccine ( - 2022-2 4 season) 2023 Influenza (Flu) vaccine (1 o f 1 - Influenza standard series) 10/16/2023 12/25/2015, 11/06/2014, 01/03/2006, Additional history exists Hepatitis C Screening Completed 03/28/2014 Diabetes Screening (HgbA1C o r Glucose) Discontinued 10/27/2017, 07/18/2017, 01/10/2017, Additional history exists Procedures Procedure Name Priority Date/Time Associated Diagnosis Comments COMPREHENSIVE METABOLIC PANEL STAT 10/27/2017 11:00 AM EDT 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, unspecified body region HEPATITIS C ANTIBODY STAT 03/28/2014 10:56 AM EST Lymphoma from Last 3 Months or Most Recently Relevant to Health Maintenance Results * (ABNORMAL) Comprehensive metabolic panel (non-fasting) (10/27/2017 11:00 AM EDT) Glucose 94 65 - 199 mg/dL [facility] Comment:Diabetes: >=200 mg/d L plus symptoms Blood Urea Nitrogen 26(H) 8 - 18 mg/dL [facility] Creatinine 1.11 0.70 - 1.20 mg/dL [facility] Sodium 140 135 - 145 mmol/L [facility] Potassium 4.0 3.5 - 5.0 mmol/L [facility] Comment: Please note: ??Patients with WBC >100,000 may have falsely elevated Potassium levels. ??For accurate Potassium quantification in these patients send serum separator tube (gold top) for subsequent determinations. ??Contact the Clinical Chemistry Laboratory if there are any questions. Chloride 99 98 - 107 mmol/L [facility] Carbon Dioxide 28 22 - 31 mmol/L [facility] Anion Gap 13 5 - 15 mmol/L [facility] Calcium 10.2 8.5 - 10.5 mg/dL [facility] Protein, Total 7.3 6.1 - 8.0 gm/dL [facility] Albumin 4.3 3.2 - 5.2 gm/dL [facility] Aspartate Aminotransferase 22 0 - 30 unit/L [facility] Alanine Aminotransferase 25 0 - 30 unit/L [facility] Alkaline Phosphatase 88 40 - 104 unit/L [facility] Bilirubin, Total 0.9 0.2 - 1.3 mg/dL [facility] Est Glomerular Filtration Rate 52(L) >=60 mL/min/1. 73 m?? [facility] Comment: The eGFR was calculated using the CKD-EPI equation. As with all creatinine based estimates of kidney function, eGFR values calculated with the CKD-EPI equation are not accurate in patients with acute kidney failure, extremes of body mass or the acutely ill. [email or web address]/[facility] eGFR 60 >=60 mL/min/1. 73 m?? [facility] Comment: The eGFR was calculated using the CKD-EPI equation. As with all creatinine based estimates of kidney function, eGFR values calculated with the CKD-EPI equation are not accurate in patients with acute kidney failure, extremes of body mass or the acutely ill. http://[employer]/[facility] Blood specimen (specimen) 10/27/2017 11:00 AM EDT 10/27/2017 11:10 AM EDT Narrative Resulting Agency Comment Spec In Lab Kimberly Mondragon MD CHEMISTRY ORDERA BLES [facility] [place] [address] * Hepatitis C Antibody (03/28/2014 10:56 AM EST) Hepatitis C Antibody Negative Negative CERDANIA BUCHANANENNIUM Blood specimen (specimen) 03/28/2014 10:56 AM EST 03/28/2014 11:09 AM EST Narrative Resulting Agency Comment Spec In Lab Kimberly Mondragon MD CHEMISTRY ORDERA BLES GIBRAN COREAS from Last 3 Months or Most Recently Relevant to Health Maintenance Advance Directives Documents on File Type Date Recorded 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 Advance Directives and Livin g Will 05/22/2014 1:07 PM 01/20/2013 * Full Code (Latest Code Status on File) Date Activated Date Inactivated Comments 01/22/2016 12:47 PM 01/23/2016 4:35 AM Question Answer Comments Does patient have capacity to make decision: Yes * Full Code Date Activated Date Inactivated Comments 03/31/2015 3:07 PM 01/22/2016 12:47 PM Question Answer Comments Does patient have capacity to make decision: Yes * Full Code Date Activated Date Inactivated Comments 12/17/2014 4:55 PM 01/05/2015 6:24 PM Question Answer Comments Does patient have capacity to make decision: Yes * Full Code Date Activated Date Inactivated Comments 12/17/2014 8:46 AM 12/17/2014 4:55 PM Question Answer Comments Does patient have capacity to make decision: Yes * Full Code Date Activated Date Inactivated Comments 11/04/2014 4:06 PM 11/06/2014 4:21 PM Question Answer Comments Does patient have capacity to make decision: Yes Care Teams Racket Stringer Relationship Specialty Start Date End Date Belén Griffin MD [address] [place] [address] PCP - General Family Medicine 05/07/15
--- OUTSIDE RECORDS SUMMARY | 2023-10-28 00:40 | XMS_ITS ---
Author Organization [facility] Address [facility] [place] [address] Care Team Providers Care Archives Specialist Name Role Phone Belén Griffin MD Primary Care Provider [phone] Active Problems Problem Noted Date Diagnosed Date [...] was not informative according to the [place] cargo broker, but the strong BCL2 expression in the absence of MUM1 suggests a germinal center origin via the Muris cargo broker. Lymphoma TB discussion 10/01/14 Recommendations for salvage chemotherapy and autologous stem cell transplant. C#1 [facility] 8/26/15 [facility] 11/25/14 ! [place] [facility] [place] Bl[place] Stem Cell Transplant [...] in December: Negative Depression with anxiety 03/21/2014 Current Oncology Plans No current plan information found. Past Plans ADULT HSCT Plan Name Start Date Discontinue Date Treatment Medications Discontinue Reason Plan Provider Cycles BCN IP HSCT (AUTO) - CBV 12/18/19 15 09/29/2015 carmustine (BiCNU) in dextrose 5% 500 mL infusioncycloPHOSphamide (Cytoxan) in sodium chloride 0.9% 250 mL infusionetoposide (Vepesid) 20 mg/mLmesna (Mesnex) infusion Therapy Complete Kimberly Mondragon MD 1 of 1 cycle started ADULT TREATMENT Plan Name Start Date Discontinue Date Treatment Medications Discontinue Reason Plan Provider Cycles BCN IP HEM LYMPHOMA (NHL) - R-DHAP 5 12/17/2014 CISplatin (Platinol) in sodium chloride 0.9% 250 mL infusioncytarabine (Cytosar) in sodium chloride 0.9% 250 mL infusionriTUXimab (Rituxan) (2 mg/mL) in sodium chloride 0.9% infusion Therapy Kimberly Otto MD 2 of 2 cycles started Radiation Treatments * No radiation treatments are documented for this patient in [facility]. Treatments may have been administered in another system. Lifetime Dose Tracking * Chemical Lifetime Dose Automatic Entry Manual Entr y doxorubicin 295.661 mg/m2 (510 mg) 295.661 mg/m2 (510 mg) 0 mg/m2 (0 mg) Resolved Problems Problem Noted Date Diagnosed Date Resolved Date LOUISE (acute kidney injury) 10/25/2014
--- OUTSIDE RECORDS SUMMARY | 2023-10-28 00:41 | XMS_ITS | Encounter Summary ---
Author Organization [facility] Address [facility] [place] [address] Care Team Providers Care Pressroom Supervisor Name Role Phone Belén Griffin MD Primary Care Provider [phone] Encounter Details Date Type Department Care Team (Latest Contact Info) Description 12/16/2022 Travel Social History Tobacco Use Types Packs/Day Years Used Date Smoking Tobacco: Never Smokeless Tobacco: Never Alcohol Use Standard Drinks/Week Comments Yes 2 (1 standard drink = 0.6 oz pur e alcohol) Sex and Gender Information Value Date Recorded Sex Assigned at Not on file Gender Identity Not on file Sexual Orientation Not on file documented as of this encounter Plan of Treatment Upcoming Encounters Date Type Department Care Team (Late st Contact Info) Description 12/07/2023 12:00 PM EDT Office Visit Dermatology at [facility] [address] [place] [address] Juan F Chappell MD [facility] [address] [address] documented as of this encounter Visit Diagnoses Not on filedocumented in this encounter Care Teams Pressroom Supervisor Relationship Specialty Start Date End Date Belén Griffin MD [address] [place] [address] PCP - General Family Medicine 05/07/15 documented as of this encounter
--- OUTSIDE RECORDS SUMMARY | 2023-10-28 00:41 | XMS_ITS | Encounter Summary ---
Author Organization [facility] Address [facility] [place] [address] Care Team Providers Care Gasoline Plant Operator Name Role Phone Belén Griffin MD Primary Care Provider [phone] Encounter Details Date Type Department Care Team (Latest Contact Info) Description 01/10/2017 12:02 PM [facility] Hospital Encounter [place] [phone] Status post autologous bone marrow transplant; Diffuse large B-cell lymphoma, unspecified body region Discharge Disposition: Home Social History Tobacco Use Types Packs/Day Years Used Date Smoking Tobacco: Never Smokeless Tobacco: Never Alcohol Use Standard Drinks/Week Comments Yes 2 (1 standard drink = 0.6 oz pur e alcohol) Sex and Gender Information Value Date Recorded Sex Assigned at Not on file Gender Identity Not on file Sexual Orientation Not on file documented as of this encounter Medications at Time of Discharge Medication Sig Dispensed Refills Start Date End Date cholecalciferol, Vitamin D3, 400 unit TabletIndications:Statu s post autologous bone marrow transplant,Lymphoma in remission Take 400 Units by mouth daily. escitalopram (LEXAPRO) 10 mg Tablet Take 10 mg by mouth daily. diphenhydrAMINE-acetami nophen (TYLENOL PM) 25-500 mg TabletIndications:Other drug-induced neutropenia Take by mouth every evening. Reported on 03/24/2016 acetaminophen (TYLENOL) 500 mg Tablet Take 1,000 mg by mouth every 6 hours as needed for Pain. Reported on 03/24/2016 LORazepam (ATIVAN) 0.5 mg TabletIndications:DLBCL (diffuse large B cell lymphoma),Stem cell donor,Examination of participant in clinical trial Take 1 tablet by mouth every 6 hours as needed for Anxiety. 50 tablet 1 06/25/2015 11/29/2018 documented as of this encounter Progress Notes * Kendy Floyd RN - 01/10/2017 4:21 PM EST Patient Name: Myriam Vivas Patient Age: 66 y.o. Birthdate: 1950 Admit date: 01/10/2017 Attending Physician: No att. providers found Access visit. See MAR and/or flowsheet. MMR vaccine administered as ordered. Tolerated well. documented in this encounter Plan of Treatment Upcoming Encounters Date Type Department Care Team (Late st Contact Info) Description 12/07/2023 12:00 PM EDT Office Visit Dermatology at [address] [address] Juan F Chappell MD [facility] [address] [place] [address] documented as of this encounter Visit Diagnoses Diagnosis Status post autologous bone marrow transplant Bone marrow replaced by transplant Diffuse large B-cell lymphoma, unspecified body region documented in this encounter Care Teams Gasoline Plant Operator Relationship Specialty Start Date End Date Belén Griffin MD [address] [place] [address] PCP - General Family Medicine 05/07/15 documented as of this encounter
--- OUTSIDE RECORDS SUMMARY | 2023-10-28 00:41 | XMS_ITS | Encounter Summary ---
Author Organization [facility] Address [facility] [place] [address] Care Team Providers Care Door Closer Name Role Phone Belén Griffin MD Primary Care Provider [phone] Encounter Details Date Type Department Care Team (Late st Contact Info) Description 10/06/2016 3:00 PM EDT Office Visit Hematology/Oncology at [address] [address] Kimberly Mondragon MD [facility] [address] [place] [address] Large cell lymphoma Social History Tobacco Use Types Packs/Day Years Used Date Smoking Tobacco: Never Smokeless Tobacco: Never Alcohol Use Standard Drinks/Week Comments Yes 2 (1 standard drink = 0.6 oz pur e alcohol) Sex and Gender Information Value Date Recorded Sex Assigned at Not on file Gender Identity Not on file Sexual Orientation Not on file documented as of this encounter Last Filed Vital Signs Vital Sign Reading Time Taken Comments Blood Pressure 109/60 10/06/2016 3:09 PM EDT Pulse 92 10/06/2016 3:09 PM EDT Temperature 36.6 ??C (97.9 ??F) 10/06/2016 3:09 PM ED T Respiratory Rate 16 10/06/2016 3:09 PM EDT Oxygen Saturation 99% 10/06/2016 3:09 PM EDT Inhaled Oxygen Concentration - - Weight 68.5 kg (151 lb) 10/06/2016 3:09 PM EDT Height 157 cm (5' 1.81) 10/06/2016 3:09 PM EDT Body Mass Index 27.79 10/06/2016 3:09 PM EDT documented in this encounter Progress Notes * Kimberly Mondragon MD - 10/06/2016 3:00 PM EDT Hematology/BMT Clinic [place] [address] FOLLOW-UP PATIENT EVALUATION Patient Active Problem List Diagnosis ??? Depression with anxiety ??? Status post autologous bone marrow transplant ??? Chemotherapy adverse reaction ??? Hypokalemia ??? Hypomagnesemia ??? Neutropenia Approximately 3 months post transplant. Acute neutropenia. Requiring Neulasta injections several times. 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 No evidence of viral infection. Drug suspected. Possibly Rituxan delayed neutropenia ??? 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 BMBx with low grade lymphoma; no large cell. LDH = 412. IPI = 3 (age,stage, LDH) PET 03/28/14 IMPRESSION: 1. Intensely hypermetabolic [...] was not informative according to the [employer] supervisor home economics, but the strong BCL2 expression in the absence of MUM1 suggests a germinal center origin via the [place] supervisor home economics. Lymphoma TB discussion 10/01/14 Recommendations for salvage chemotherapy and autologous stem cell transplant. C#1 RDHAP 10/09/14 With stem cell collection C#2 RDHAP 11/04/14 PET scan negative! 11/25/14 ! [place]17[place] [facility] [place] [...] Negative ?? CT scan in December: Negative INTERIM HISTORY OF PRESENT ILLNESS: Myriam Vivas is a 65yo female with Primary Refractory DLBCL. She is 21 months (01/02/2015) s/p an Autologous peripheral blood stem cell transplant. Here for a 3 month followup. She is working full-time. She has been well - she did have a slight rash on her arms - saw MD ? Allergic reaction - did not require treatment, resolved on its own. She is still dealing with fatigue which is stable. She sleeps well with Tylenol PM nightly. She is looking forward to a trip to [facility] with her SO in October. She has been healthy - no recent infections. No B symptoms. No new adenopathy. Appetite is great and weight is up- which she is somewhat concerned with. Her primary care and dental is UTD Ex- still in fdc, but she has gone to visit him on occasion. MEDICATIONS: Current Outpatient Prescriptions on File Prior to Visit Medication Sig Dispense Refill ??? cholecalciferol, Vitamin D3, 400 unit Tablet Take 400 Units by mouth daily. ??? escitalopram (LEXAPRO) 10 mg Tablet Take 10 mg by mouth daily. ??? LORazepam (ATIVAN) 0.5 mg Tablet Take 1 tablet by mouth every 6 hours as needed for Anxiety. 50tablet 1 ??? diphenhydrAMINE-acetaminophen (TYLENOL PM) 25-500 mg Tablet Take by mouth every evening. Reported on 03/24/2016 ??? acetaminophen (TYLENOL) 500 mg Tablet Take 1,000 mg by mouth every 6 hours as needed for Pain. Reported on 03/24/2016 No current facility-administered medications on file prior to visit. ALLERGIES: Allergies Allergen Reactions ??? Levofloxacin Other (See Comments) tendonitis ??? Tegaderm [Transparent Dressings] Other (See Comments) Unsure if actual allergy Use Sorbaview ??? Vancomycin Itching and Dermatitis Sarah's syndrome. Slow infusion for any upcoming doses. Broke out in maculopapular pruritic dermatitis on abdomen, chest, forehead and upper back. INTERIM SOCIAL HISTORY: Changes in job, home situation, tobacco or alcohol use: No CHANGES IN RELEVANT FAMILY HISTORY: No ROS Energy level: Stable Pain: No Appetite:good Fevers/chills/sweats:No Bruising/bleeding/melena:No Recent infections:No Headaches:neg Vision:neg Hearing:neg Sinus: neg Seasonal Allergies: neg Mouth sores:neg Dentition: Good Swallowing: neg GERD : neg Nausea/vomiting: neg diarrhea/constipation:No SOB/HAUSRE/pulmonary sx: no chest pain:No sx: negative Change in adenopathy or other masses:No Unexpected weight loss or gain:No Skin rashes or petechiae:No Musculoskeletal complaints:No Extremities: Negative upper and lower bilaterally Neurologic symptoms:No Mental Status changes: neg Mood: Hx of Depression with anxiety under much better control Sleep: No difficulty sleeping PHYSICAL EXAM: BP 109/60 (Patient Position: Sitting) Pulse 92 Temp 36.6 ??C (97.9 ??F) (Oral) Resp 16 Ht 157 cm (5' 1.81) Wt 68.5 kg (151 lb) SpO2 99% BMI 27.79 kg/m2 GENERAL: Myriam Vivas is healthy appearing and looks great!!! Her hair is Short and curly. She looks beautiful. She has a friendly positive outlook, all smiles. HEENT: Oral mucosa is clear. Neck: Supple Lungs: Clear breath sounds bilaterally Heart: Regular rate and rhythm without murmur Abdomen: Soft, nontender and no organomegaly Skin: No rash Extremity: shows no edema Muskuloskeletal: Stable Neuro: A+O x 3 Psychiatric: Normal. LABORATORY STUDIES: WBC - 3.05 HG- 11.7 PLT - 154 RADIOLOGY STUDIES: ?? CT of C/A/P on 07/01/16: COMPARISON: December 25, 2015 ?? FINDINGS: ?? Chest: Lungs and large airways: New 10 mm left lower lobe opacity. Pleura: No effusion. Heart/vasculature: Normal. Lymph nodes/Mediastinum/Jazzy: Stable subcentimeter left axillary lymph nodes. None pathologically enlarged. ?? Abdomen/pelvis: Liver: Normal size and attenuation without lesions. Bile ducts: Nondilated. Gallbladder: No calcified gallstones. Normal caliber wall. Pancreas: Normal attenuation without ductal dilatation. Spleen: Normal. Adrenals: Normal. Kidneys: Stable hypodense subcentimeter left interpolar renal lesion too small to further characterize though I suspect simple cyst. No suspicious lesions. ?? Vasculature: Normal Lymph Nodes: No enlarged lymph nodes. Bowel: Moderate fecal load. Loops of large and small bowel are normal in caliber without mural thickening. Stomach is decompressed. Peritoneum and mesentery: No ascites, free air, or loculated fluid collection. No mesenteric inflammation. Abdominal wall: Normal. ?? Urinary Bladder: Normal. Reproductive organs: Normal. Osseous structures: No suspicious lesions. ?? IMPRESSION New 10 mm left lower lobe opacity which I suspect is inflammatory in nature. Follow-up to ensure resolution is suggested. Remainder of this exam is stable without pathologically enlarged lymph nodes. ASSESSMENT: Myriam Vivas is a delightful 66 y.o. female with Primary Refractory DLBCL. She is 21 months s/p an Autologous pb stem cell transplant. ?? Autologous stem cell transplant for primary refractory diffuse large B-cell lymphoma - 21 monthsout - Conditioning regimen: CBV - Day 0 = 12/23/14 Performance status is excellent! Laboratory studies are stable. No s/s of recurrent disease. LAST CT scan without overt evidence of relapse. Unlikely the 10mm left lower lobe opacity is disease, but we will f/u in [address] of chest to be sure it has not progressed. ?? ID - No focal s/s of infection. - rash - ? Etiology. Resolved on its own. ?? Psychosocial - Depression and Anxiety are under good control and she still sees a therapist. Remains on Lexapro with Ativan 0.5mg TID prn. ?? Vaccines - Completed 3 sets of vaccines. She will be due for boosters at her next visit - MMR #1 in 12/31 and MMR #2 in 02/2017. ?? Survivorship -Ongoing routine health maintenance with PCP, ie Check TSH annually, along with fasting glucose and cholesterol. Mammo, colo, pap smear/pelvic exam, etc.: These are all up to date!! ?? [place] in 3 [place] [facility] [place] And a repeat chest CT at that time. She will call sooner if she has any new or concerrning symptoms. CC: Belén Griffin MD documented in this encounter Plan of Treatment Upcoming Encounters Date Type Department Care Team (Late st Contact Info) Description 12/07/2023 12:00 PM EDT Office Visit Dermatology at [facility] [address] [place] [address] Juan F Chappell MD [facility] [address] RANDE[place] [address] documented as of this encounter Visit Diagnoses Diagnosis Large cell lymphoma Large cell lymphoma, unspecified site, extranodal and solid organ sites documented in this encounter Care Teams Door Closer Relationship Specialty Start Date End Date Belén Griffin MD [address] [facility] [address] [place] [address] PCP - General Family Medicine 05/07/15 documented as of this encounter
--- OUTSIDE RECORDS SUMMARY | 2023-10-28 00:41 | XMS_ITS | Encounter Summary ---
Author Organization [facility] Address [facility] [place] [address] Care Team Providers Care Hedge Fund Trader Name Role Phone Belén Griffin MD Primary Care Provider [phone] Encounter Details Date Type Department Care Team (Late st Contact Info) Description 12/16/2022 8:45 AM EDT Office Visit Dermatology at [facility] [address] [place] [address] Juan F Chappell MD [facility] DR RANDE[address] [place] [address] Seborrheic keratosis; Lentigines; History of nonmelanoma skin cancer; Multiple benign nevi of upper extremity, lower extremity, and trunk; Dermal nevus of other site; Seborrheic keratosis, inflamed Social History Tobacco Use Types Packs/Day Years Used Date Smoking Tobacco: Never Smokeless Tobacco: Never Alcohol Use Standard Drinks/Week Comments Yes 2 (1 standard drink = 0.6 oz pur e alcohol) Sex and Gender Information Value Date Recorded Sex Assigned at Not on file Gender Identity Not on file Sexual Orientation Not on file documented as of this encounter Progress Notes * Carolann Figueroa, SOBEIDA - 12/16/2022 8:45 AM EDT Images from the original note were not included. DEPARTMENT OF DERMATOLOGY Medical Dermatology Clinic Provider: Juan F Chappell MD Patient's preferred name Myriam Preferred contact method for results [x]Phone []myD-H []Letter Detailed phone message OK? Yes Are there any other people with whom we may discuss your care? Past Medical History Date, location, treatment Melanoma N Dysplastic nevi N SCC N BCC BCC left lower eyelid, Moh's [facility] 06/[address]? 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 Patient returns to clinic today for a fullskin exam with the following concerns: - She has a small scaly papule on her right nasal sidewall that she wants to have evaluated. She states it does not come off when she picks at it. - She has some scale on her forehead that does not extend into the hairline. Not itchy. Last visit at Dermatology: 12/01/2021 Last visit with this provider: 12/01/2021 Medications: Reviewed in eD-H Allergies: Reviewed in eD-H Skin Examination: Full skin examination: Patient asked to undress to their comfort level. Verbalized that the provider???s preference is that the patient remove all clothing and that the provider will not examine areas patient elects to keep covered. Patient elects to keep underwear on and have the following examined: scalp, hair, face, ears, neck, chest, axillae, abdomen, back, and upper and lower extremities. Genitalia and buttocks were not examined. Assessment/Plan #. Seborrheic Keratoses - Stuck on, waxy papules on the trunk and extremities including right cheek. - Benign. No treatment needed. Patient reassured. #. Lentigines - Scattered light-brown, evenly pigmented, well-demarcated macules on sun-exposed areas of the trunk and extremities. - No worrisome pigmented lesions. Discussed benign nature of lesions and provided reassurance. Willcontinue to monitor. #. [place] Angiomas - Multiple bright red, well-demarcated papules on the trunk and extremities. - Discussed benign nature of lesions and provided reassurance. No treatment necessary at this time. #. Benign Nevi - Scattered medium brown, evenly pigmented macules and papules on the trunk and extremities with reassuring pigment pattern on dermoscopy. - Discussed benign nature of lesions and provided reassurance. Will continue to monitor. #. Dermal Nevus - 2 mm skin colored papule on the right arm -pt reassured. No further intervention required. If irritated can perform a shave removal #. History of BCC - Well-healed scar on the left lower eyelid per skin history. - No evidence of recurrence; will continue to monitor. #. Inflamed Seborrheic Keratosis - Inflamed, stuck on, waxy papule on the right nasal sidewall x 1. - Discussed benign nature of lesion(s) and provided reassurance. - Due to irritation present on today's exam and history of symptoms, discussed removal with cryotherapy. - Patient elects to proceed with cryotherapy today. Procedure: Destruction of lesion(s) with cryotherapy (LN2). Location(s): As noted above Number: 1 Discussed procedure and expectations including risks and benefits. Verbal consent obtained. Treatedwith LN2. There were no complications; Patient tolerated the procedure well. Post-procedure expectations and wound care were reviewed. Other: Sun protection discussed (protective clothing and SPF30+ broad-spectrum sunscreen) RTC: 1 year for FSE []Note routed to secretary to the vice president [x]Recall placed in scheduling system []Appointment scheduled at checkout Scribe attestation: SOBEIDA Nolan has performed the documentation for this encounter in thepresence of and acting as a scribe for Juan F Chappell MD. I performed the above scribed service and agree with the accuracy of the documentation in this encounter. Reviewed and signed by: Juan F Chappell MD Dermatology [facility] documented in this encounter Plan of Treatment Upcoming Encounters Date Type Department Care Team (Late st Contact Info) Description 12/07/2023 12:00 PM EDT Office Visit Dermatology at [facility] [address] [place] [address] Juan F Chappell MD [facility] DR RANDEE [place] [address] documented as of this encounter Visit Diagnoses Diagnosis Seborrheic keratosis Other seborrheic keratosis Lentigines Other dyschromia History of nonmelanoma skin cancer Personal history of other malignant neoplasm of skin Multiple benign nevi of upper extremity, lower extremity, and trunk Dermal nevus of other site Benign neoplasm of other specified sites of skin Seborrheic keratosis, inflamed Inflamed seborrheic keratosis documented in this encounter Care Teams Hedge Fund Trader Relationship Specialty Start Date End Date Belén Griffin MD [address] [place] [address] PCP - General Family Medicine 05/07/15 documented as of this encounter
--- OUTSIDE RECORDS SUMMARY | 2023-10-28 00:41 | XMS_ITS | Encounter Summary ---
Author Organization [facility] Address [facility] [place] [address] Care Team Providers Care Supervisor Furnace Process Name Role Phone Belén Griffin MD Primary Care Provider [phone] Encounter Details Date Type Department Care Team (Latest Contact Info) Description 12/09/2022 Travel Social History Tobacco Use Types Packs/Day [...] 12:00 PM EDT Office Visit Dermatology at [facility] [address] [place] [address] Juan F Chappell MD [facility] DR [address] [address] documented as of this encounter Visit Diagnoses Not on filedocumented in this encounter Care Teams Supervisor Furnace Process Relationship Specialty Start Date End Date Belén Griffin MD [address] [place] [address] PCP - General Family Medicine 05/07/15 documented as of this encounter
--- OUTSIDE RECORDS SUMMARY | 2023-10-28 00:41 | XMS_ITS | Encounter Summary ---
Author Organization [facility] Address [facility] [place] [address] Care Team Providers Care Cloth Tester Quality Name Role Phone Belén Griffin MD Primary Care Provider [phone] Encounter Details Date Type Department Care Team (Late st Contact Info) Description 12/01/2020 9:15 AM EDT Office Visit Dermatology at [facility] [address] [place] [address] Juan F Chappell MD [facility] [address] [place] [address] [place] (actinic keratosis); SK (seborrheic keratosis); Lentigines; Dermal nevus of other site Social History Tobacco Use Types Packs/Day Years Used Date Smoking Tobacco: Never Smokeless Tobacco: Never Alcohol Use Standard Drinks/Week Comments Yes 2 (1 standard drink = 0.6 oz pur e alcohol) Sex and Gender Information Value Date Recorded Sex Assigned at Not on file Gender Identity Not on file Sexual Orientation Not on file documented as of this encounter Progress Notes * Juan F Chappell MD - 12/01/2020 9:15 AM EDT Images from the original note [...] LN2? 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 Patient is new and self-referred to the clinic for full skin exam. Patient denies any specific skin concerns today; no lesions that are new, changing or symptomatic. Medications: Reviewed in eD-H Allergies: Reviewed in eD-H Skin Examination: Full skin examination: Patient asked to undress to their comfort level. Verbalized that the provider's preference is that patient remove all clothing and that the provider will not examine areas patient elects to keep covered. Examination of the scalp, hair, head, face, ears, neck, chest, axillae, abdomen, back, buttocks, genitalia, and upper and lower extremities was normal with the exception ofthe findings below. Assessment/Plan #. Actinic Keratosis - Ill-defined gritty papule(s) on the forehead x1, left forearm x1 - Explained etiology, natural history and premalignant potential of these lesions. - Patient opted to proceed with liquid nitrogen. - Patient should to return to clinic for re-evaluation if lesions do not resolve within 6 weeks of this treatment. Procedure: Destruction of lesion(s) with cryotherapy. Location(s): As noted above Number: 2 Discussed procedure and expectations including risks and benefits. Verbal consent obtained. Treatedwith LN2. There were no complications. Patient tolerated the procedure well. Post-procedure expectations and wound care were reviewed. #. Seborrheic Keratoses - stuck on, waxy papules on the trunk and extremities - Benign. No treatment needed. Patient reassured. #. Solar lentigines - scattered light brown 3-6mm macules on the face, upper back, chest, bilateralarms, and bilateral lower extremities - Benign. No treatment needed. #. Dermal Nevus- 2mm skin colored papule on the right arm -pt reassured. No further intervention required. If irritated can perform a shave removal Other: ??? Sun protection discussed (protective clothing and SPF30+ broad-spectrum sunscreen) RTC: 1 year for FSE []Note routed to financial secretary [x]Recall placed in scheduling system []Appointment scheduled at checkout Scribe attestation: Jaye Kevin and Carolann Figueroa MA have performed the documentation for this encounter in the presence of and acting as a scribe for Juan F Chappell MD. I performed the above scribed service and agree with the accuracy of the documentation in this encounter. Reviewed and signed by: Juan F Chappell MD Dermatology [facility] documented in this encounter Plan of Treatment Upcoming Encounters Date Type Department Care Team (Late st Contact Info) Description 12/07/2023 12:00 PM EDT Office Visit Dermatology at [address] [address] Juan F Chappell MD [facility] [address] [place] [address] documented as of this encounter Visit Diagnoses Diagnosis AK (actinic keratosis) Actinic keratosis SK (seborrheic keratosis) Other seborrheic keratosis Lentigines Other dyschromia Dermal nevus of other site Benign neoplasm of other specified sites of skin documented in this encounter Care Teams Cloth Tester Quality Relationship Specialty Start Date End Date Belén Griffin MD [address] [place] [address] PCP - General Family Medicine 05/07/15 documented as of this encounter
--- OUTSIDE RECORDS SUMMARY | 2023-10-28 00:41 | XMS_ITS | Encounter Summary ---
Author Organization [facility] Address [facility] [place] [address] Care Team Providers Care Demi Chef Name Role Phone Belén Griffin MD Primary Care Provider [phone] Encounter Details Date Type Department Care Team (Late st Contact Info) Description 06/20/2019 12:30 PM EDT TH Visit (TeleHealth) Hematology/Oncology at [address] [phone] Kimberly Mondragon MD [facility] [address] [place] [address] Gabi Easley, [facility] [address] [place] [address] Status post autologous bone marrow transplant; Diffuse large B-cell lymphoma, unspecified body region Social History Tobacco Use Types Packs/Day Years Used Date Smoking Tobacco: Never Smokeless Tobacco: Never Alcohol Use Standard Drinks/Week Comments Yes 2 (1 standard drink = 0.6 oz pur e alcohol) Sex and Gender Information Value Date Recorded Sex Assigned at Not on file Gender Identity Not on file Sexual Orientation Not on file documented as of this encounter Progress Notes * Kimberly Mondragon MD - 06/20/2019 12:30 PM EDT Hematology/[place] [address] FOLLOW-UP PATIENT EVALUATION Patient Active Problem List [...] suspected. Possibly Rituxan delayed neutropenia ??? Lymphoma [address] biopsy consistent with [...] was not informative according to the Bassem opener, but the strong BCL2 expression in the absence of MUM1 suggests a germinal center origin via the Muris opener. Lymphoma TB discussion 10/01/14 Recommendations for salvage chemotherapy and autologous stem cell transplant. C#1 RDP 10/09/14 With stem cell collection C#2 RDP 11/04/14 PET scan negative! 11/25/14 ! ADMIT on 12/17/14 to [facility] for Autologous Peripheral BlN/ood Stem Cell Transplant [...] Negative ?? CT scan in December: Negative I confirmed with the patient that this was a telephone encounter in lieu of an office visit. Charges may be incurred. Patient agreed and gave me permission to proceed. Patient prefers to be called: Myriam Spouse/Partner: Carlos ( as of 2019) Other support: INTERIM HISTORY OF PRESENT ILLNESS: Myriam Vivas is a 68 y.o. female with Primary Refractory DLBCL. She is Almost 5 years (01/02/2015)s/p an Autologous peripheral blood stem cell transplant. Carlos has retired and bought a house in [place]. She retired in Jan 2019. 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 They had a difficult trip to [place]. She and Carlos have broken up but are still friends. Sheis managing well. Her ex- will be out of long-term within the year. She has been healthy - no recent infections. No B symptoms. No new adenopathy. She has no pulmonary or infectious symptoms. No fevers. No B symptoms. Myriam is appropriately sheltering in and following goldman virus epidemic precautions. Her primary care and dental is UTD. MEDICATIONS: Current Outpatient Medications on File Prior to Visit Medication Sig Dispense Refill ??? calcium carb/mag carb/folic ac ([id number] ACID ORAL) Take by mouth. ??? b complex vitamins Tablet Take 1 tablet by mouth daily. ??? cholecalciferol, Vitamin D3, 400 unit Tablet Take 400 Units by mouth daily. ??? escitalopram (LEXAPRO) 10 mg Tablet Take 10 mg by mouth daily. ??? acetaminophen (TYLENOL) 500 mg Tablet Take 1,000 mg by mouth every 6 hours as needed for Pain. Reported on 03/24/2016 ??? diphenhydrAMINE-acetaminophen (TYLENOL PM) 25-500 mg Tablet Take by mouth every evening. Reported on 03/24/2016 No current facility-administered medications [...] job, home situation, tobacco or alcohol use: Living alone in her apartment again CHANGES IN RELEVANT FAMILY HISTORY: No ROS Energy level: Stable Pain: No Appetite:good Fevers/chills/sweats:No Bruising/bleeding/melena:No Recent infections:No Headaches:neg Vision:neg Hearing:neg Sinus: neg Seasonal Allergies: neg Mouth sores:neg Dentition: Good Swallowing: neg GERD : neg Nausea/vomiting: neg diarrhea/constipation:No SOB/HAUSER/pulmonary sx: no chest pain:No sx: negative Change in adenopathy or other masses:No Unexpected weight loss or gain:No Skin rashes or petechiae:No Musculoskeletal complaints:No Extremities: Negative upper and lower bilaterally Neurologic symptoms:No Mental Status changes: neg Mood: Hx of Depression with anxiety under much better control Sleep: No difficulty sleeping PHYSICAL EXAM: There were no vitals taken for this visit. Telephone encounter LABORATORY STUDIES: No results found for this or any previous visit (from the past 72 hour(s)). Labs dated 06/06/2019 at [facility] White count 5.2 Hemoglobin 12.9 Platelets 211 ANC 3.2 creatinine 1.0 LFTs normal LDH 223 RADIOLOGY STUDIES: 10/27/17 CT Chest EXAMINATION: CT CHEST WO CONTRAST (GENERIC) ?? CLINICAL HISTORY: f/u on findings of CT chest 07/18/17a ?? TECHNIQUE: Helical CT of the chest was performed without contrast. Multiplanar reformatted images were reviewed. ?? COMPARISON: Chest CT 07/18/2017 ? FINDINGS: Lungs and airways: There is an overall better degree of aeration of both lungs. The previously reported new 7 x 5 mm RIGHT lower lobe nodule has almost completely disappeared. There are no new pulmonary nodules or other interval change. Again noted are the irregular opacity in the LEFT lower lobe (series 6 image 276). In a few small tree-in-bud opacities in the LEFT upper lobe (series 6 image 162). The central airways are patent. Pleura and pericardium: No effusions. Heart and vasculature: Heart size normal. No coronary artery calcification. ?? Mediastinum and hilar structures: No lymphadenopathy ?? Allowing for the lack of intravenous contrast, the portions of the abdominal organs included in the field of veiw are unchanged. Osseous structure: No focal lytic or sclerotic osseous lesion. ? IMPRESSION Impression: Near complete clearing of previously reported new 7 x 5 mm nodule in RIGHT lower lobe. No other interval change. ?? ASSESSMENT: Myriam Vivas is a delightful 68 y.o. female with Primary Refractory DLBCL s/p an Autologous pb stem cell transplant. ?? Autologous stem cell transplant for primary refractory diffuse large B-cell lymphoma - 4+ years from transplant - Conditioning regimen: CBV. - Day 0 = 12/23/14 Performance status is excellent! Laboratory studies are stable. No s/s of recurrent disease. She underwent a series of CT chest scans that needed to be followed for different reasons. Finally, she had a nuclear scan in October 2017 and further imaging follow-up is not necessary. ?? Psychosocial - Depression and Anxiety are under good control and she still sees a therapist. Remains on Lexapro no longer requiring Ativan 0.5mg BID prn. Sleeping better. Using essential oils to help w/ anxiety. Sleeping well. With tylenol PM. ?? Vaccines - Completed vaccines. - MMR #1 in 12/31 - given that she is auto, not allo, I will only plan one MMR as her risk is much lower. - OK for her to get the new Non-live Shingrex zoster vaccine. Would not get the old live Zostrix vaccine. - annual flu vaccine ?? Cardiac- echocardiogram dated 05/25/2018 in follow-up to her prior chemotherapy with ejection fraction of 50 to 55%. No further follow-up necessary. ?? RTC in 6 months with cbc, cmp, ldh in [place] -for her final visit.. She has completed her survivorship appointment with Gabi Easley. We will continue to follow her every 6 mos to 5 years until 2019.. She will call sooner if she has any new or concerrning symptoms. I spent 15 min on this telehealth encounter including chart review, time with the patient and documentation. CC: Belén Griffin MD documented in this encounter Plan of Treatment Upcoming Encounters Date Type Department Care Team (Late st Contact Info) Description 12/07/2023 12:00 PM EDT Office Visit Dermatology at [facility] [address] [place] [address] Juan F Chappell MD [facility] DR RANDEE [place] [address] documented as of this encounter Procedures Procedure Name Priority Date/Time Associated Diagnosis Comments CBC (WITH DIFF) Routine 06/06/2019 documented in this encounter Results * CBC (with Diff) (06/06/2019) White Blood Cell 5.2 Hemoglobin 12.9 Hematocrit 37.1 Platelet 211 Neutrophil Absolute (ANC) - Automated 3.2 Creatinine 1.05 Lactate Dehydrogenase 223 Blood specimen (specimen) 06/06/2019 Historical Provider HEMATOLOGY ORDERA BLES documented in this encounter Visit Diagnoses Diagnosis Status post autologous bone marrow transplant Bone marrow replaced by transplant Diffuse large B-cell lymphoma, unspecified body region documented in this encounter Care Teams Demi Chef Relationship Specialty Start Date End Date Belén Griffin MD [address] [place] [address] PCP - General Family Medicine 05/07/15 documented as of this encounter
--- OUTSIDE RECORDS SUMMARY | 2023-10-28 00:41 | XMS_ITS | Encounter Summary ---
Author Organization [facility] Address [facility] [place] [address] Care Team Providers Care Blanking Machine Operator Name Role Phone Belén Griffin MD Primary Care Provider [phone] Reason for Visit * Reason Comments Follow-up Encounter Details Date Type Department Care Team (Late st Contact Info) Description 10/27/2017 1:00 PM EDT Office Visit Hematology [place] [phone] Kimberly Mondragon MD [facility] DR HEMATOLOGY [place] [address] Status post autologous bone marrow transplant; Diffuse [...] Sign Reading Time Taken Comments Blood Pressure 101/57 10/27/2017 12:58 PM EDT Pulse 90 10/27/2017 12:58 PM EDT Temperature 36.6 ??C (97.9 ??F) 10/27/2017 12:58 PM E DT Respiratory Rate - - Oxygen Saturation 96% 10/27/2017 12:58 PM EDT Inhaled Oxygen Concentration - - Weight 65.8 kg (145 lb) 10/27/2017 12:58 PM EDT Height 157 cm (5' 1.81) 10/27/2017 12:58 PM EDT Body Mass Index 26.68 10/27/2017 12:58 PM EDT documented in this encounter Progress Notes * Kimberly Mondragon MD - 10/27/2017 1:00 PM EDT Hematology/BMT Clinic [place] [id number] FOLLOW-UP PATIENT EVALUATION Patient Active Problem List [...] was not informative according to the Bassem brake lining finisher, but the strong BCL2 expression in the absence of MUM1 suggests a germinal center origin via the Muris brake lining finisher. Lymphoma TB discussion 10/01/14 Recommendations for salvage chemotherapy and autologous stem cell transplant. C#1 RDHAP 10/09/14 With stem cell collection C#2 RDHAP 11/04/14 PET scan negative! 11/25/14 ! AD[place] 12/17/14 [place] [facility] [place] Bl[place]ood Stem Cell Transplant [...] with Primary Refractory DLBCL. She is Almost 3 years (01/02/2015) s/p an Autologous peripheral blood stem cell transplant. She is working full-time. Carlos has retired and bought a house in [place]. I have been crazy busy She went to the transplant survivor celebration yesterday which was hard for her to relive. Thinking of long term in 2020. Going to [facility]. She is still dealing with fatigue which is stable. She sleeps well with Tylenol PM nightly. Naps daily. Decreasing her ativan w/ Dr Griffin's direction. She has been healthy - no recent infections. No B symptoms. No new adenopathy. She has no pulmonary or infectious symptoms. No fevers. Her primary care and dental is UTD Ex- still in [facility], but she has gone to visit him [...] job, home situation, tobacco or alcohol use: Here with Carlos. CHANGES IN RELEVANT FAMILY HISTORY: No ROS [...] Sleep: No difficulty sleeping PHYSICAL EXAM: BP 101/57 (Patient Position: Sitting) Pulse 90 Temp 36.6 ??C (97.9 ??F) (Temporal) Ht 157 cm (5' 1.81) Wt 65.8 kg (145 lb) SpO2 96% BMI 26.68 kg/m2 GENERAL: Myriam Vivas is healthy appearing [...] A+O x 3 Psychiatric: Normal. LABORATORY STUDIES: Recent Results (from the past 72 hour(s)) Comprehensive metabolic panel (non-fasting) Result Value Ref Range Glucose Lvl 94 65 - 199 mg/dL BUN 26 (H) 8 - 18 mg/dL Creatinine 1.11 0.70 - 1.20 mg/dL Sodium 140 135 - 145 mmol/L Potassium 4.0 3.5 - 5.0 mmol/L Chloride 99 98 - 107 mmol/L CO2 28 22 - 31 mmol/L Anion Gap 13 5 - 15 mmol/L Calcium 10.2 8.5 - 10.5 mg/dL Total Protein 7.3 6.1 - 8.0 gm/dL Albumin 4.3 3.2 - 5.2 gm/dL AST 22 0 - 30 unit/L ALT 25 0 - 30 unit/L Alk Phos 88 40 - 104 unit/L Total Bilirubin 0.9 0.2 - 1.3 mg/dL eGFR 52 (L) >=60 mL/min/1.73 m?? eGFR 60 >=60 mL/min/1.73 m?? Lactate Dehydrogenase Result Value Ref Range LDH 217 110 - 220 unit/L Hemogram Result Value Ref Range WBC 5.2 4.0 - 9.5 x10(3)/mcL RBC 3.85 (L) 4.00 - 5.21 x10(6)/mcL Hemoglobin 12.3 11.7 - 15.5 gm/dL Hematocrit 35.5 (L) 35.7 - 45.8 % MCV 92.2 82.6 - 94.4 fL MCH 31.9 27.1 - 32.0 pg MCHC 34.6 31.7 - 35.0 gm/dL Platelets 186 145 - 357 x10(3)/mcL RDWSD 40.3 37.0 - 46.0 fL RDWCV 11.9 11.5 - 14.1 % MPV 8.8 7.6 - 12.9 fL nRBC % Auto 0.0 % nRBC Abs Auto 0.000 0.000 - 0.000 x10(3)/mcL Differential, Automated Result Value Ref Range Neutrophils % 66.4 % Neutr Abs (ANC) 3.42 1.70 - 6.10 x10(3)/mcL Lymphocytes % 19.2 % Lymphocytes Abs 1.0 0.9 - 3.2 x10(3)/mcL Monocytes % 10.5 % Monocyte Abs 0.5 0.3 - 0.9 x10(3)/mcL Eosinophils % 3.1 % Eosinophils Abs 0.2 0.0 - 0.4 x10(3)/mcL Basophils % 0.6 % Basophils Abs 0.0 0.0 - 0.1 x10(3)/mcL Immature Gran % 0.20 % [place] Gran Abs 0.01 0.00 - 0.04 x10(3)/mcL RADIOLOGY STUDIES: 10/27/17 CT Chest EXAMINATION: CT [...] ?? ASSESSMENT: Myriam Vivas is a delightful 67 y.o. female with Primary Refractory DLBCL s/p an Autologous pb stem cell transplant. ?? Autologous stem cell transplant for primary refractory diffuse large B-cell lymphoma - 2+ years from transplant - Conditioning regimen: CBV - Day 0 = 12/23/14 Performance status is excellent! Laboratory studies are stable. No s/s of recurrent disease. LAST CT scan without overt evidence of relapse. But there was a LLL nodule and she is here otday for 6 mo f/u. Today the nodule is stable but now radiology wants 3 mo f/u for tree in but appearance. ?? ID - No focal s/s of infection. ?? Psychosocial - Depression and Anxiety are under good control and she still sees a therapist. Remains on Lexapro with Ativan 0.5mg BID prn. ?? Vaccines - Completed vaccines. - MMR #1 in 12/31 - given that she is auto, not allo, I will only plan one MMR as her risk is much lower. - OK for her to get the new Non-live Shingrex zoster vaccine. Would not get the old live Zostrix vaccine. - annual flu vaccine ?? Pulmonary Process - Repeat CT chest w/o contrast Today with resolution. No further imaging necessary. ?? RTC in 6 months with cbc, cmp, [place]dh [place] [facility] Gabi for survivorship. We will continue to follow her every 6 mos to 5 years. She will call sooner if she has any new or concerrning symptoms. CC: Belén Griffin MD documented in this encounter Plan of Treatment Upcoming Encounters Date Type Department Care Team (Late st Contact Info) Description 12/07/2023 12:00 PM EDT Office Visit Dermatology at [facility] [address] [place] [address] Juan F Chappell MD [facility] DR RANDEE [place] [address] documented as of this encounter Visit Diagnoses Diagnosis Status post autologous bone marrow transplant Bone marrow replaced by transplant Diffuse large B-cell lymphoma, unspecified body region documented in this encounter Care Teams Blanking Machine Operator Relationship Specialty Start Date End Date Belén Griffin MD [address] [place] [address] PCP - General Family Medicine 05/07/15 documented as of this encounter
--- OUTSIDE RECORDS SUMMARY | 2023-10-28 00:41 | XMS_ITS | Encounter Summary ---
Author Organization [facility] Address [facility] [place] [address] Care Team Providers Care Hospice Spiritual Care Coordinator Name Role Phone Belén Griffin MD Primary Care Provider [phone] Encounter Details Date Type Department Care Team (Late st Contact Info) Description 08/23/2016 Orders Only Hematology [place] [address] Brittaney Henning Social History Tobacco Use Types Packs/Day Years [...] 12:00 PM EDT Office Visit Dermatology at [facility] [address] [place] [address] Juan F Chappell MD [facility] [address] [place] [address] documented as of this encounter Visit Diagnoses Not on filedocumented in this encounter Care Teams Hospice Spiritual Care Coordinator Relationship Specialty Start Date End Date Belén Griffin MD [address] [place] [address] PCP - General Family Medicine 05/07/15 documented as of this encounter
--- OUTSIDE RECORDS SUMMARY | 2023-10-28 00:41 | XMS_ITS | Encounter Summary ---
Author Organization [facility] Address [facility] [place] [address] Care Team Providers Care Metal Drill Operator Name Role Phone Belén Griffin MD Primary Care Provider Encounter Details Date Type Department Care Team (Late st Contact Info) Description 01/10/2017 Orders Only [place]ology [place] [address] Brittaney Henning Social History Tobacco Use Types [...] 12:00 PM EDT Office Visit Dermatology at [facility] [address] [place] [address] Juan F Chappell MD [facility] DR RANDEE [place] [address] documented as of this encounter Visit Diagnoses Not on filedocumented in this encounter Care Teams Metal Drill Operator Relationship Specialty Start Date End Date Belén Griffin MD [address] [place] [address] PCP - General Family Medicine 05/07/15 documented as of this encounter
--- OUTSIDE RECORDS SUMMARY | 2023-10-28 00:41 | XMS_ITS | Encounter Summary ---
Author Organization [facility] Address [facility] [place] [address] Care Team Providers Care Agriculture Engineer Name Role Phone Belén Griffin MD Primary Care Provider [phone] Reason for Visit * Reason Onset Date Comments Other 04/26/2019 Encounter Details Date Type Department Care Team (Late st Contact Info) Description 04/26/2019 Telephone Hematology/Oncology at [address] [address] Ana Paula Benz RN Other Social History Tobacco Use Types Packs/Day Years Used Date Smoking Tobacco: Never Smokeless Tobacco: Never Alcohol Use Standard Drinks/Week Comments Yes 2 (1 standard drink = 0.6 oz pur e alcohol) Sex and Gender Information Value Date Recorded Sex Assigned at Not on file Gender Identity Not on file Sexual Orientation Not on file documented as of this encounter Miscellaneous Notes * Telephone Encounter - Ana Paula Benz RN - 04/26/2019 2:22 PM EDT Pt's daughter called . Pt is in [place] planning to come home. They are concerned for her risk of sanjay the covid 19 virus. Let her know per Dr. Mondragon that she is not at anymore risk then anyone else. Her immune system is intact since her transplant. As far as taking plane home they will have to way the risks. Guided them to use CDC website or call [employer]. [employer] Energyfor help guiding them. Theyappreciated info. documented in this encounter Plan of Treatment Upcoming Encounters Date Type Department Care Team (Late st Contact Info) Description 12/07/2023 12:00 PM EDT Office Visit Dermatology at [facility] [address] [place] [address] Juan F Chappell MD [facility] DR RANDEE [place] [address] documented as of this encounter Visit Diagnoses Not on filedocumented in this encounter Care Teams Agriculture Engineer Relationship Specialty Start Date End Date Belén Griffin MD [address] [place] [address] PCP - General Family Medicine 05/07/15 documented as of this encounter
--- OUTSIDE RECORDS SUMMARY | 2023-10-28 00:41 | XMS_ITS | Encounter Summary ---
Author Organization [facility] [place] [address] Care Team Providers Care Hide Shaker Name Role Phone Belén Griffin MD Primary Care Provider [phone] Reason for Referral * Diagnostic Test (Routine) - Closed Specialty Diagnoses / Procedures Referred By Perry cabrera Referred To Contact Radiology Diagnoses Lymphoma, unspecified body region, unspecified lymphoma type Procedures IR Removal of Kimberly Lopez MD [facility] [address] [place] [address] [place] [address] Referral ID Status Reason Start Date Expiration Date V isits Requested Visits Authorized [id number] Closed Specialty Service Requested 01/02/2016 01/01/2017 1 1 Reason for Visit * Diagnostic Test (Routine) - Closed Specialty Diagnoses / Procedures Referred By Perry cabrera Referred To Contact Radiology Diagnoses Lymphoma, unspecified body region, unspecified lymphoma type Procedures IR Removal of Kimberly Lopez MD [facility] [place] [address] [facility] [place] [address] Referral ID Status Reason Start Date Expiration Date V isits Requested Visits Authorized [id number] Closed Specialty Service Requested 01/02/2016 01/01/2017 1 1 Encounter Details Date Type Department Care Team (Late st Contact Info) Description 01/22/2016 12:01 PM EST - 01/22/2016 11:59 PM EST Hospital Encounter [place] [address] Kimberly Mondragon MD [facility] DR HEMATOLOGY AND ONCOLOGY [place] [id number] Lymphoma, unspecified body region, unspecified lymphoma type Discharge Disposition: Home Social History Tobacco Use [...] Sign Reading Time Taken Comments Blood Pressure 107/54 01/22/2016 2:00 PM EST Pulse 85 01/22/2016 12:25 PM EST Temperature 36.8 ??C (98.3 ??F) 01/22/2016 12:[address] Respiratory Rate 18 01/22/2016 12:25 PM EST Oxygen Saturation 95% 01/22/2016 2:04 PM EST Inhaled Oxygen Concentration - - Weight - - Height - - Body Mass Index - - documented in this encounter Discharge Instructions * Discharge Instructions* Jasmine Lucero - 01/22/2016 1:44 PM EST [facility] Vascular and Interventional Radiology Discharge Instructions for your Chest Port Removal Activity: ??? Relax for the next 24 hours Diet: ??? Drink plenty of fluids. ??? Resume your regular diet Bandage: There is a sterile dressing consisting of small gauze with a clear dressing (Tegaderm or IV 3000). This dressing should be left in place for 48 hours. If the clear dressing becomes loose youshould place tape over the edges to secure it in place. No tub baths, swimming or whirlpools for 1 week. No showering for 48 hours. Note: If you have steri-strips beneath your dressing, simply allow them to fall off. Do not peel them off. There may be [employer]patterson (skin glue) also, allow this to flake off. Do not pick this off. Bathing: Do not take a shower until 48 hours after your port is removed; after this time you may shower with the dressing in place, then remove it and pat your skin dry. After 48 hours, we recommend that you cover the area with THE AQUA GUARD PROVIDED for 1 week while showering, facing away from the shower stream. You may use a bandaid to cover the site after the 48 hours are up if there is any drainage. No tub baths, whirlpools or swimming for one week following port removal. Pain: Apply ice bag to site (s) at 30 minute intervals (30 minutes on and 30 minutes off) for 24 hours?? . May use as needed for pain and/or bruising after 24 hours. When to call your healthcare provider: ??? If you notice bleeding from the incision on your chest, you should lie flat and apply firm pressure over the site for 10-15 minutes, keeping the site covered and call your doctor. If you are still bleeding after 10-15 minutes, reapply pressure, and have someone drive you to the nearest Emergency Department, or call 911. ??? If you develop pain, redness, drainage or swelling at or around chest incision site. ??? If you develop a fever equal to or greater than 101 degrees Fahrenheit. When to call the Interventional Radiology Department: Please call with any questions or concerns. If it is during regular office hours, please call [phone]. If it is after regular office hours, or on weekends or holidays, please call [phone] and ask to speak to the [employer] life insurance salesperson for Interventional Radiology. You have received medication during your procedure to help lesson anxiety and keep you comfortable.These medications affect judgement and reaction time. We recommend that you do not drive, operate equipment, sign any important documents, or smoke unattended for 24 hours following your procedure. Because of the sedation, be careful on stairs, as you may be unsteady on your feet. You may resume your regular diet as tolerated. IV site -- slight redness, or tenderness is normal, you can use a warm compress. If tenderness and redness increases or foul drainage occurs, please contact your M. D. Revised 02/28/15 documented in this encounter Medications at Time of Discharge Medication Sig Dispensed Refills Start Date End Date escitalopram (LEXAPRO) 10 mg Tablet Take 10 [...] as of this encounter Progress Notes * Ghassan Nassar MD - 01/20/2016 9:34 AM EST Images from the original note were not included. INTERVENTIONAL RADIOLOGY FOCUSED H&P and PRE-PROCEDURE NOTE: PCP: Belén Griffin MD Referring Physician: Kimberly Mondragon Planned Procedure: Mediport removal (RIGHT) Procedure Indication: Finished chemotherapy Presenting Diagnosis/ Complaint: Myriam De Souza is a 65 y.o. female with history of Diffuse Large Cell Non-Hodgkins Lymphoma who underwent mediport placement with IR on 04/05/14 for planned chemotherapy. Pt is followed by Kimberly Burnett, MSN, [employer] OFFICER of [facility], last seen in office on 12/25/15. P atient has since completed chemotherapy and CT CAP performed at this time was without evidence of disease recurrence. Request per Dr. Gupta is for removal of her mediport with IR. Past Medical/Surgical History: Patient Active Problem List Diagnosis Code ??? Lymphoma C85.90 ??? Depression with anxiety F41.8 ??? Hypokalemia E87.6 ??? Hypomagnesemia E83.42 ??? Neutropenia D70.9 ??? Chemotherapy adverse reaction T45.1X5A ??? 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 Past Surgical History Procedure Laterality Date ??? Pro bone marrow aspiration w/bx through same incision/site Right 03/29/2014 [place] BONE MARROW ASP PERFORMED W/BX THRU BX INCISION performed by Kimberly Mondragon MD at [facility] ??? Pro bone marrow bx, needle/trocar Right 03/29/2014 ([facility] BONE MARROW,BIOPSY performed by Kimberly Mondragon MD at [facility] ??? Pro bone marrow aspiration w/bx through same incision/site Left 09/02/2014 ([facility]) BONE MARROW ASP PERFORMED W/BX THRU BX INCISION performed by Kimberly Mondragon MD at [facility] ??? Pro bone marrow bx, needle/trocar Left 09/02/2014 ([facility] BONE MARROW,BIOPSY performed by Kimberly Mondragon MD at [facility] ??? Pro endobronchial u/s add-on N/A 09/26/2014 ENDOBRONCHIAL ULTRASOUND (EBUS) performed by Jamey Martin MD at [facility] ENDOSCOPY ??? Pro bone marrow aspiration w/bx through same incision/site Right 04/02/2015 ([facility] BONE MARROW ASP PERFORMED W/BX THRU BX INCISION performed by Kimberly Mondragon MD at [facility] ??? Pro bone marrow bx, needle/trocar Right 04/02/2015 ([facility] BONE MARROW,BIOPSY performed by Kimberly Mondragon MD at [facility] Medications: Current Outpatient Prescriptions on File Prior to Encounter Medication Sig Dispense Refill ??? escitalopram (LEXAPRO) 10 mg Tablet Take 10 mg by mouth daily. ??? LORazepam (ATIVAN) 0.5 mg Tablet Take 1 tablet by mouth every 6 hours as needed for Anxiety. 50tablet 1 ??? acetaminophen (TYLENOL) 500 mg Tablet Take 1,000 mg by mouth every 6 hours as needed for Pain. ??? diphenhydrAMINE-acetaminophen (TYLENOL PM) 25-500 mg Tablet Take by mouth every evening. No current facility-administered medications on file prior to encounter. Allergies: Levofloxacin; Tegaderm [transparent dressings]; and Vancomycin Social History and Habits: Social History Social History ??? Marital status: Spouse name: N/A ??? Number of children: N/A ??? Years of education: N/A Occupational History ??? Not on file. Social History Main Topics ??? Smoking status: Never Smoker ??? Smokeless tobacco: Never Used ??? Alcohol use 1.2 oz/week 2 Glasses of wine per week ??? Drug use: No ??? Sexual activity: Yes Partners: Male Other Topics Concern ??? Not on file Social History Narrative Living situation: Lives by herself in an apartment. Seeing a gentleman friend now. Daughter in [place] and another daughter in [place] [place]. Supportive friend group. 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 Significant Family History: No family history on file. Physical Examination: pending Labs: Lab Results Component Value Date WBC 3.9 (L) 12/25/2015 ANC 1.81 05/26/2015 HCT 32.3 (L) 12/25/2015 PLATELET 153 12/25/2015 INR 1.0 12/10/2014 BUN 22 (H) 12/25/2015 CREATININE 0.96 12/25/2015 ALKPHOS 80 12/25/2015 AST 22 12/25/2015 ALBUMIN 4.4 12/25/2015 BILIDIR 0.2 12/25/2015 BILITOT 0.8 12/25/2015 ALT 25 12/25/2015 PROT 6.6 12/25/2015 Imagin04/05/14 ASA: Pending (to be assessed in angio the day of procedure) Mallampati Class: Pending (to be assessed in angio the day of procedure) Assessment/Plan: 65 y.o. female with history of DLBCL s/p right IJV mediport placement 04/05/14 withIR for chemotherapy - now completed without evidence of disease recurrence. Plan is for removal of her mediport with IR at this time. I have reviewed the sedation plan for this patient???s case and concur that Fentanyl and Versed areappropriate choices for sedation and will be provided per the protocoled order set for this case Labs to be performed day of procedure: none additional Medication to STOP: none Sedation: Moderate sedation per IR RN protocols Prophylactic antibiotic: 2 gm Ancef IV Additional medications for procedure: none Planned access site: right chest Position: supine Consent: Pending - Ghassan Nassar MD (Pager #[phone]) 01/20/2016 * Jasmine Lucero - 01/19/2016 11:12 AM EST ANGIO NURSING DATABASE Name: MYRIAM DE SOUZA Date of : 1950 AGE 65 y.o. [address]: [address] [place] [id number] (home) [phone] (work) Mobile: Telephone Information: Referring Provider: Kimberly Mondragon REASON FOR VISIT: Question Answer Comment Where will study be performed? [facility] Reason for exam and clinical history: remove mediport chemo complete Exam/Procedure requested: remove mediport Does patient require sedation? None Is the patient on anticoagulant / anitplatelet therapy ? No Anticoagulant/antiplatelet/herbal med. stopped on per MD order. Allergies Allergen Reactions ??? Levofloxacin Other (See Comments) tendonitis ??? Tegaderm [Transparent Dressings] Other (See Comments) Unsure if actual allergy Use Sorbaview ??? Vancomycin Itching and Dermatitis Sarah's syndrome. Slow infusion for any upcoming doses. Broke out in maculopapular pruritic dermatitis on abdomen, chest, forehead and upper back. Pertinent PMH: Patient Active Problem List Diagnosis Code ??? Lymphoma C85.90 ??? Depression with anxiety F41.8 ??? Hypokalemia E87.6 ??? Hypomagnesemia E83.42 ??? Neutropenia D70.9 ??? Chemotherapy adverse reaction T45.1X5A ??? 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 Pro bone marrow aspiration w/bx through same incision/site Right 03/29/2014 ([facility]) BONE MARROW ASP PERFORMED W/BX THRU BX INCISION performed by Kimberly Mondragon MD at [facility] ??? Pro bone marrow bx, needle/trocar Right 03/29/2014 ([facility]) BONE MARROW,BIOPSY performed by Kimberly Mondragon MD at [facility] ??? Pro bone marrow aspiration w/bx through same incision/site Left 09/02/2014 ([facility]) BONE MARROW ASP PERFORMED W/BX THRU BX INCISION performed by Kimberly Mondragon MD at [facility] ??? Pro bone marrow bx, needle/trocar Left 09/02/2014 ([facility]) BONE MARROW,BIOPSY performed by Kimberly Mondragon MD at [facility] ??? Pro endobronchial u/s add-on N/A 09/26/2014 ENDOBRONCHIAL ULTRASOUND (EBUS) performed by Jamey Martin MD at [facility] ??? Pro bone marrow aspiration w/bx through same incision/site Right 04/02/2015 ([facility]) BONE MARROW ASP PERFORMED W/BX THRU BX INCISION performed by Kimberly Mondragon MD at [facility] ??? Pro bone marrow bx, needle/trocar Right 04/02/2015 ([facility] BONE MARROW,BIOPSY performed by Kimberly Mondragon MD at [facility] DATE PROCEDURE MEDS GIVEN 04/05/14 Mediport placement Ancef 1 gm IV; Versed 2.5 mg IV; Fentanyl 150 mcg IV. 10/23/14 Non-tunneled Temporary CVC Line. Fentanyl 150 mcg IV,Versed 2mg IV, 12/17/14 Triple lumen CVC tunneled, apheresis catheter placed. Ancef 2 gms IV; Versed 3 mg IV; Fentanyl 150 mcg IV. ?01/22/2016 Mediport removal Local only, Ancef 2g ? To procedure room two via stretcher. Onto stretcher supine. All monitors, O2, safety strap in place. Med's per protocol. Laboratory Results: Lab Results Component Value Date INR 1.0 12/10/2014 Lab Results Component Value Date CREATININE 0.96 12/25/2015 Lab Results Component Value Date K 4.0 12/25/2015 Lab Results Component Value Date PLATELET 153 12/25/2015 Medications: Prior to Admission medications Medication Sig Start Date End Date Taking? Authorizing Provider escitalopram (LEXAPRO) 10 mg Tablet Take 10 mg by mouth daily. PROVIDER, HISTORICAL LORazepam (ATIVAN) 0.5 mg Tablet Take 1 tablet by mouth every 6 hours as needed for Anxiety. 06/25/15 Hawa Overton APRN acetaminophen (TYLENOL) 500 mg Tablet Take 1,000 mg by mouth every 6 hours as needed for Pain. PROVIDER, HISTORICAL diphenhydrAMINE-acetaminophen (TYLENOL PM) 25-500 mg Tablet Take by mouth every evening. PROVIDER, HISTORICAL documented in this encounter Plan of Treatment Upcoming Encounters Date Type Department Care Team (Late st Contact Info) Description 12/07/2023 12:00 PM EDT Office Visit Dermatology at [facility] [address] [place] [address] Juan F Chappell MD [facility] DR [place] [address] documented as of this encounter Procedures Procedure Name Priority Date/Time Associated Diagnosis Comments IR MEDIPORT REMOVAL Routine 01/22/2016 2 :15 PM EST Lymphoma, unspecified body region, unspecified lymphoma type documented in this encounter Results * IR Removal of Mediport (01/22/2016 2:15 PM EST) Anatomical Region Laterality Modality X-Ray Angiograph y Narrative 01/23/2016 9:26 AM EST VIR PROCEDURE NOTE ? Procedure: Single lumen chest port removal. ? Indication for Procedure: Completion of chemotherapy; port no longer needed ? Intervention: Informed consent obtained. A moment of truth was performed and the patient and procedure correctly identified. Continuous monitoring of pulse, blood pressure and oxygen saturation performed by nursing. Maximal sterile barrier technique prep and drape. ?? Preprocedure IV antibiotics administered. Skin anesthetized with 1% lidocaine as well as bupivacaine with epinephrine. Blunt and sharp dissection used to remove, intact, single lumen port. Wound copiously irrigated. The pocket was closed using a two layer technique with absorbable suture material (2-0 vicryl deep interrupted and 4-0 monocryl running subcuticular). Skin closed with indermil. ? Meds: 2 gm IV ancef Lidocaine 1% 10cc ? Complications: None. ? Resident/Fellow: Blank Garland MD/ Cam Ortiz DO Assisted By: Jewels Knowles APRN ? Attending: Dr. Caceres (I was present for the procedure) Kimberly Mondragon MD IMG IR ORDERABLE S documented in this encounter Visit Diagnoses Diagnosis Lymphoma, unspecified body region, unspecified lymphoma type documented in this encounter Administered Medications Inactive Administered Medications - up to 3 most recent administrations Medication Order MAR Action Action Date Dose Rate Site BUpivacaine-EPINEPHrine 0.25 %-1:200,000 injection 20 mL 20 mL (50 mg), Infiltration, ONCE, 1 dose, On Cece 01/22/16 at 1245, For use in Interventional Radiology (IR) only for procedural sedation with direct provider supervision and verbal order., Angio/IR (Intra-Procedure), Routine Given 01/22/2016 12:45 PM EST 20 mLs ceFAZolin (ANCEF) 2g in dextrose 5% 50 mL 2 g, Intravenous, ONCE, 1 dose, On Cece 01/22/16 at 1245, Administer over 30 Minutes, Redose every 3 hours if CrCl is greater than 20. Redose every 8 hours if CrCl is less than 20., Day of Surgery (Day of Procedure), Indication for (Active or Suspected): Prophylaxis Given 01/22/2016 1:10 PM EST 2 g 100 mL/hr lidocaine (XYLOCAINE) 10 mg/mL (1 %) injection 10 mg 10 mg, Subcutaneous, ONCE, 1 dose, On Cece 01/22/16 at 1245, For use in Interventional Radiology (IR) only for procedure with direct provider supervision and verbal order., Angio/IR (Intra-Procedure), Routine Given 01/22/2016 1:49 PM EST 10 mg documented in this encounter Care Teams Hide Shaker Relationship Specialty Start Date End Date Belén Griffin MD [address] [place] [address] PCP - General Family Medicine 05/07/15 documented as of this encounter
--- OUTSIDE RECORDS SUMMARY | 2023-10-28 00:41 | XMS_ITS | Encounter Summary ---
Author Organization [facility] [place] [address] Care Team Providers Care Vehicle Mechanic Name Role Phone Belén Griffin MD Primary Care Provider [phone] Reason for Referral * Diagnostic Test (Routine) - Closed Specialty Diagnoses / Procedures Referred By Contnam Referred To Contact Radiology Diagnoses DLBCL (diffuse large B cell lymphoma) Procedures CT Chest w Contrast Kimberly Burnett APRN [facility] DR [place]EM[place] [address] [facility] [place] [address] Referral ID Status Reason Start Date Expiration Date V isits Requested Visits Authorized [id number] Closed Specialty Service Requested 12/24/2016 03/24/2017 1 1 Reason for Visit * Diagnostic Test (Routine) - Closed Specialty Diagnoses / Procedures Referred By Contnam Referred To Contact Radiology Diagnoses DLBCL (diffuse large B cell lymphoma) Procedures CT Chest w Contrast Kimberly Burnett APRN [facility] [place] [address] [facility] [place] [address] Referral ID Status Reason Start Date Expiration Date V isits Requested Visits Authorized [id number] Closed Specialty Service Requested 12/24/2016 03/24/2017 1 1 Encounter Details Date Type Department Care Team (Late st Contact Info) Description 01/10/2017 11:20 AM EST - 01/10/2017 12:01 PM EST Hospital Encounter CT Scan at [facility] [place] [phone] Kimberly Burnett APRN [facility] DR HEMATOLOGY [place] [address] DLBCL (diffuse large B cell lymphoma) Discharge Disposition: Home Social History Tobacco Use [...] 06/25/2015 11/29/2018 documented as of this encounter Plan of Treatment Upcoming Encounters Date Type Department Care Team (Late st Contact Info) Description 12/07/2023 12:00 PM EDT Office Visit Dermatology at [facility] [address] [place] [phone] Juan F Chappell MD [facility] [place] [address] documented as of this encounter Procedures Procedure Name Priority Date/Time Associated Diagnosis Comments CT CHEST W CONTRAST Routine 01/10/2017 1 1:49 AM EST DLBCL (diffuse large B cell lymphoma) documented in this encounter Results * CT Chest w Contrast (01/10/2017 11:49 AM EST) Anatomical Region Laterality Modality Chest Computed Tomogra phy Impressions 01/10/2017 12:36 PM EST Persistent left lower lobe basal opacity, but appears slightly flatter on orthogonal reconstructions, thus may reflect a very slowly organizing focal inflammatory/infectious process. Continued CT surveillance is recommended, which can be performed with noncontrast technique. No new or progressive findings. Narrative 01/10/2017 12:36 PM EST EXAMINATION: CT CHEST W CONTRAST CLINICAL HISTORY: Hx of Lymphoma. ??10mm left lobe opacity. ??r/o resolution. TECHNIQUE: 3.75 mm thick axial contiguous sections were obtained through the chest via helical acquisition after the intravenous administration of 60 cc of Omnipaque-350. Thin-section reconstructions as well as coronal and sagittal reformatted images were generated. COMPARISON: 07/01/2016. FINDINGS: Pulmonary parenchyma: Although the left lower lobe basal subpleural opacity is similar in maximum dimension, approximately 10 mm, it appears flatter on orthogonal reconstructions, see for example series 601 image 64 compared series 601 image 63 of prior. No new or progressive findings in either lung. Airways: No endobronchial opacities identified. Pleura: No pleural effusion seen. Lymph nodes: No thoracic lymphadenopathy noted. Heart, pericardium, and great vessels: No pericardial effusion or other interval findings. Other mediastinal structures: No new findings. Lower neck: No new findings. Upper abdomen: No new findings. Skeletal structures: No suspicious interval osseous findings. Procedure Note Kalie Solorzano MD - 01/10/2017 EXAMINATION: CT CHEST W CONTRAST CLINICAL HISTORY: Hx of Lymphoma. 10mm left lobe opacity. r/oresolution. TECHNIQUE: 3.75 mm thick axial contiguous sections were obtained throughthe chest via helical acquisition after the intravenous administration of 60cc of Omnipaque-350. Thin-section reconstructions as well as coronal andsagittal reformatted images were generated. COMPARISON: 07/01/2016. FINDINGS: Pulmonary parenchyma: Although the left lower lobe basal subpleuralopacity is similar in maximum dimension, approximately 10 mm, it appears flatter on orthogonal reconstructions, see for example series 601 image 64 comparedseries 601 image 63 of prior. No new or progressive findings in either lung. Airways: No endobronchial opacities identified. Pleura: No pleural effusion seen. Lymph nodes: No thoracic lymphadenopathy noted. Heart, pericardium, and great vessels: No pericardial effusion or otherinterval findings. Other mediastinal structures: No new findings. Lower neck: No new findings. Upper abdomen: No new findings. Skeletal structures: No suspicious interval osseous findings. IMPRESSION Persistent left lower lobe basal opacity, but appears slightly flatteron orthogonal reconstructions, thus may reflect a very slowly organizingfocal inflammatory/infectious process. Continued CT surveillance is recommended,which can be performed with noncontrast technique. No new or progressivefindings. Kimberly Burnett APRN IMG CT ORDERABLE S documented in this encounter Visit Diagnoses Diagnosis DLBCL (diffuse large B cell lymphoma) Other malignant lymphomas, unspecified site, extranodal and solid organ sites documented in this encounter Administered Medications Inactive Administered Medications - up to 3 most recent administrations Medication Order MAR Action Action Date Dose Rate Site iohexol (OMNIPAQUE) 350 mg/mL solution 0-200 mL 0-200 mL, Intravenous, ONCE PRN, 1 dose, Starting on Tue01/10/17 at 1130, Until Tue01/10/17 at 1145, Per Protocol, Warning Vesicant/Irritant Medication , Radiology Contrast, Routine Given 01/10/2017 11:45 AM EST 60 mLs documented in this encounter Care Teams Vehicle Mechanic Relationship Specialty Start Date End Date Belén Griffin MD [address] [place] [address] PCP - General Family Medicine 05/07/15 documented as of this encounter
--- OUTSIDE RECORDS SUMMARY | 2023-10-28 00:41 | XMS_ITS | Encounter Summary ---
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, unspecified body region Procedures CT Chest wo Contrast (Generic) Kimberly Mondragon MD [facility] [address] [place] [address] [facility] [place] [address] Referral ID Status Reason Start Date Expiration Date V isits Requested Visits Authorized [id number] Closed Specialty Service Requested 2017 01/02/2018 1 1 Encounter Details Date Type Department Care Team (Late st Contact Info) Description 07/18/2017 2:00 PM EDT Office Visit [place] [address] Kimberly Mondragon MD [facility] [address] [place] [address] Status post autologous bone marrow transplant; Diffuse [...] Sign Reading Time Taken Comments Blood Pressure 114/66 07/18/2017 2:08 PM EDT Pulse 88 07/18/2017 2:08 PM EDT Temperature 36.7 ??C (98.1 ??F) 07/18/2017 2:08 PM ED T Respiratory Rate 17 07/18/2017 2:08 PM EDT Oxygen Saturation 98% 07/18/2017 2:08 PM EDT Inhaled Oxygen Concentration - - Weight 65.9 kg (145 lb 3.2 oz) 07/18/2017 2:08 P M EDT Height 158.2 cm (5' 2.28) 07/18/2017 2:08 PM ED T Body Mass Index 26.32 07/18/2017 2:08 PM EDT documented in this encounter Progress Notes * Kimberly Mondragon MD - 07/18/2017 2:00 PM EDT Hematology/[place] [address] FOLLOW-UP PATIENT EVALUATION Patient Active Problem List [...] was not informative according to the Bassem showcase trimmer, but the strong BCL2 expression in the absence of MUM1 suggests a germinal center origin via the Muris showcase trimmer. Lymphoma TB discussion 10/01/14 Recommendations for salvage chemotherapy and autologous stem cell transplant. C#1 RDHAP 10/09/14 With stem cell collection C#2 RDHAP 11/04/14 PET scan negative! 11/25/14 ! 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 She is 2 1/2 years (01/02/2015) s/p an Autologous peripheral blood stem cell transplant. She is working full-time. Carlos has retired and bought a house in [place]. Just back from [place]. I have been crazy busy She went to the transplant survivor celebration yesterday which was hard for her to relive. Thinking of half-way in 2020. She is still dealing with fatigue which is stable. She sleeps well with Tylenol PM nightly. Naps daily. Decreasing her ativan w/ Dr Griffin's direction. She has been healthy - no recent infections. No B symptoms. No new adenopathy. She has no pulmonary or infectious symptoms. No fevers. Her primary care and dental is UTD Ex- still in half-way, but she has gone to visit him [...] job, home situation, tobacco or alcohol use: Just back from [facility] CHANGES IN RELEVANT FAMILY HISTORY: No ROS [...] Sleep: No difficulty sleeping PHYSICAL EXAM: BP 114/66 (Patient Position: Sitting) Pulse 88 Temp 36.7 ??C (98.1 ??F) (Temporal) Resp 17 Ht 158.2 cm (5' 2.28) Wt 65.9 kg (145 lb 3.2 oz) SpO2 98% BMI 26.32 kg/m2 GENERAL: Myriam Vivas is healthy appearing [...] (non-fasting) Result Value Ref Range Glucose Lvl 70 65 - 199 mg/dL BUN 28 (H) 8 - 18 mg/dL Creatinine 1.13 0.70 - 1.20 mg/dL Sodium 146 (H) 135 - 145 mmol/L Potassium 4.5 3.5 - 5.0 mmol/L Chloride 102 98 - 107 mmol/L CO2 29 22 - 31 mmol/L Anion Gap 15 5 - 15 mmol/L Calcium 10.3 8.5 - 10.5 mg/dL Total Protein 6.7 6.1 - 8.0 gm/dL Albumin 4.2 3.2 - 5.2 gm/dL AST 24 0 - 30 unit/L ALT 32 (H) 0 - 30 unit/L Alk Phos 89 40 - 104 unit/L Total Bilirubin 0.6 0.2 - 1.3 mg/dL Estimated GFR 48 (L) >=60 Lactate Dehydrogenase Result Value Ref Range LDH 198 110 - 220 unit/L Hemogram Result Value Ref Range WBC 5.0 4.0 - 9.5 x10(3)/mcL RBC 3.63 (L) 4.00 - 5.21 x10(6)/mcL Hemoglobin 11.8 11.7 - 15.5 gm/dL Hematocrit 35.4 (L) 35.7 - 45.8 % MCV 97.5 (H) 82.6 - 94.4 fL MCH 32.5 (H) 27.1 - 32.0 pg MCHC 33.3 31.7 - 35.0 gm/dL Platelets 166 145 - 357 x10(3)/mcL RDWSD 45.0 37.0 - 46.0 fL RDWCV 12.4 11.5 - 14.1 % MPV 8.7 7.6 - 12.9 fL nRBC % Auto 0.0 % nRBC Abs Auto 0.000 0.000 - 0.000 x10(3)/mcL Differential, Automated Result Value Ref Range Neutrophils % 63.1 % Neutr Abs (ANC) 3.12 1.70 - 6.10 x10(3)/mcL Lymphocytes % 20.6 % Lymphocytes Abs 1.0 0.9 - 3.2 x10(3)/mcL Monocytes % 11.7 % Monocyte Abs 0.6 0.3 - 0.9 x10(3)/mcL Eosinophils % 3.8 % Eosinophils Abs 0.2 0.0 - 0.4 x10(3)/mcL Basophils % 0.6 % Basophils Abs 0.0 0.0 - 0.1 x10(3)/mcL Immature Gran % 0.20 % [place] Gran Abs 0.01 0.00 - 0.04 x10(3)/mcL RADIOLOGY STUDIES: 07/18/17 CT Chest EXAMINATION: CT CHEST WO CONTRAST (GENERIC) ?? CLINICAL HISTORY: h/o lymphoma. s/p auto transplant Dec 2014. Following LLL nodule - 6 month f/u . ?? TECHNIQUE: 2.5 mm thick axial contiguous sections were obtained through the chest via helical acquisition without intravenous contrast administration using low radiation dose technique. Thin-section reconstructions as well as coronal and sagittal reformatted images were generated. ?? COMPARISON: 01/10/2017 ?? FINDINGS: Pulmonary parenchyma: No appreciable change in the approximately 10 mm left lower lobe irregular nodular opacity, see series 4 images 72 and 73 compared to series 4 images 48 and 49 of prior and series 4 images 49-50 of the 07/01/2016 study, and remains relatively flat on orthogonal reconstructions. New oblong nodular opacity at the right lung base measuring 7 x 5 mm, possibly an enlarged intrapulmonary lymph node in this patient who has new tree-in-bud opacities slightly more superiorly, see for example series 4 image 60. New smaller focal areas of tree-in-bud opacity are also present in the left upper lobe, see series 4 image 46 and at the base of the right middle lobe, see series 4 image 74. Airways: No endobronchial opacities identified. Pleura: No pleural effusion seen. Lymph nodes: No interval lymph node enlargement identified within limits of noncontrast technique. Heart, pericardium, and great vessels: Pericardial effusion or other interval change. Other mediastinal structures: No new findings. Lower neck: No new findings. Upper abdomen: No new findings. Skeletal structures: No new findings. ?? IMPRESSION ` 1. Left lower lobe opacity, indeterminate but unchanged. 2. New scattered tree-in-bud opacities and an oblong nodular opacity in the right lower lobe that may reflect minimal bronchiolitis and enlarged intrapulmonary lymph node, respectively, for which 3 month follow-up noncontrast chest CT is suggested to look for resolution versus persistence. ASSESSMENT: Myriam Vivas is a delightful 66 y.o. female with Primary Refractory DLBCL s/p [...] 0.5mg BID prn. ?? Vaccines - Completed 3 sets of vaccines. - MMR #1 in 12/31 - given that she is auto, not allo, I will only plan one MMR as her risk is much lower. ?? Pulmonary Process - CT chest very low suspician for recurrent lymphoma. Repeat CT chest w/o contrast In Oct 2017. ?? Survivorship -Ongoing routine health maintenance with PCP, ie Check TSH annually, along with fasting glucose and cholesterol. Mammo, colo, pap smear/pelvic exam, etc.: These are all up to date!! ?? RTC in 3 months to [facility] with labs and a repeat chest CT at that time. She will call sooner if she has any new or concerrning symptoms. CC: Belén Griffin MD documented in this encounter Plan of Treatment Upcoming Encounters Date Type Department Care Team (Late st Contact Info) Description 12/07/2023 12:00 PM EDT Office Visit Dermatology at [facility] [address] [place] [phone] Juan F Chappell MD [facility] [address] RAN[place] [address] documented as of this encounter Results * CT Chest wo Contrast (Generic) (10/27/2017 10:42 AM EDT) Anatomical Region Laterality Modality Chest Computed Tomogra phy Impressions 10/27/2017 1:14 PM EDT Impression: Near complete clearing of previously reported new 7 x 5 mm nodule in RIGHT lower lobe. No other interval change. Narrative 10/27/2017 1:14 PM EDT EXAMINATION: CT CHEST WO CONTRAST (GENERIC) CLINICAL HISTORY: f/u on findings of CT chest 07/18/17 TECHNIQUE: Helical CT of the chest was performed without contrast. Multiplanar reformatted images were reviewed. COMPARISON: Chest CT 07/18/2017 ? FINDINGS: Lungs [...] Heart size normal. No coronary artery calcification. Mediastinum and hilar structures: No lymphadenopathy Allowing for the lack of intravenous contrast, the portions of the abdominal organs included in the field of veiw are unchanged. Osseous structure: No focal lytic or sclerotic osseous lesion. ? Procedure Note Abhinav Kwon MD - 10/27/2017 EXAMINATION: CT CHEST WO CONTRAST (GENERIC) CLINICAL HISTORY: f/u on findings of CT chest 07/18/17 TECHNIQUE: Helical CT of the chest was performed without contrast.Multiplanar reformatted images were reviewed. COMPARISON: Chest CT 07/18/2017 ? FINDINGS: Lungs and airways: There is an overall better degree of aeration of bothlungs. The previously reported new 7 x 5 mm RIGHT lower lobe nodule has almost completely disappeared. There are no new pulmonary nodules or otherinterval change. Again noted are the irregular opacity in the LEFT lower lobe(series 6 image 276). In a few small tree-in-bud opacities in the LEFT upper lobe(series 6 image 162). The central airways are patent. Pleura and pericardium: No effusions. Heart and vasculature: Heart size normal. No coronary arterycalcification. Mediastinum and hilar structures: No lymphadenopathy Allowing for the lack of intravenous contrast, the portions of theabdominal organs included in the field of veiw are unchanged. Osseous structure: No focal lytic or sclerotic osseous lesion. ? IMPRESSION Impression: Near complete clearing of previously reported new 7 x 5 mm nodule in RIGHTlower lobe. No other interval change. 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
--- OUTSIDE RECORDS SUMMARY | 2023-10-28 00:41 | XMS_ITS | Encounter Summary ---
Author Organization [facility] Address [facility] [place] [address] Care Team Providers Care Ferry Terminal Supervisor Name Role Phone Belén Griffin MD Primary Care Provider [phone] Reason for Visit * Reason Onset Date Comments Labs Only 03/25/2016 Lab Tracking Encounter Details Date Type Department Care Team (Late st Contact Info) Description 03/25/2016 Telephone Hematology Oncology at [address] [phone] Faustina Soto RN Labs Only (Lab Tracking) Social History Tobacco Use Types Packs/Day Years [...] encounter Miscellaneous Notes * Telephone Encounter - Faustina Soto RN - 03/25/2016 9:12 AM EST LAB TRACKING Myriam Vivas Diagnosis: Lymphoma LABS ORDERED: FU with Dr Mondragon in June at [facility] Assessment: Pt seen in [facility] 03/24/16-Per Dr. Mondragon, no more lab tracking Plan: [facility] appointment in June for CT CAP, labs and vaccines (18 month post- transplant vaccines). DATE WBC HGB/HCT PLTS ANC MEDS/PLAN LOCATION 03/15/16 3.01 11.2/32.9 174k 1.74 F/U @ [facility] in June with labs, vaccines, and CT CAP June 2016 12/25/15 3.9 11.0/32.3 153k 2.55 F/u appt with EMB in 3 months 3 months at [facility] 10/01 4.3 10.3/29.9 173k 2.97 Next appt in 3 months 3 months at [facility] 08/27 3.1 10.7/29.5 142k 1,68 Follow up with EMB at [facility] on 10/01. Post transplant vaccines Lab once a month Next due at [facility] 10/0107/29/15 3.1 10.4/29.3 144K 2.04 Extra week Lab Tracking, met with LIDIA at [facility] today Labs were drawnat [facility] 07/21/15 2.99 10.7/30.2 168k 1.88 Meet with Giancarlo at [facility] 07/28 Labs every other Félix @ [facility] 07/07/15 3.24 10.4/30.2 185k 2.13 Labs every other week [facility] 06/30/15 3.82 10.3/29.1 180 2.53 CBC q tuesday [facility] 06/23/15 4.89 10.3/29.6 181k 3.70 Antibiotics per dentist Cbc every tuesday06/16/15 8.44 10.4/29.9 118K 6.50 CBC every Tuesday at [facility] 06/09/15 1.29 1028.5 160k 0.43 Pt will have neulasta 6 mg today Labs again next week. 05/26/15 2.74 1028.7 150K 1.81 No Change Labs every other week next due 06/09/15 05/12/15 2.16 9.5/27.7 177K 1.35 No change Labs every other week next due 05/2505/05/15 4.24 9.2/26.7 185k 3.18 Continue as planned Labs at [facility] 05/1104/28/15 4.56 9.3/27.6 224k 3.61 augmentin d/c'd thurs. 04/23 [facility] 05/0404/21/15 6.26 9.2/26.4 137k 5.20 Continued as planned [facility] 04/2704/14/15 6.03 9.7/27.6 129k 4.98 continued as planned [facility] 04/20 04/07 38.09 0.7/27.8 175 32.38 Weaning off Lexapro. Continues off Acyclovir and Bactrim [facility] 2.03/31/15 0.98 8.7/24.2 126k .09 Pt to have bone marrow biopsy tue and pet scan see Birgit [facility] 04/0703/24/15 5.36 10.2/28.1 123 4.22 [facility] 17.34 9.6/27.2 89 8.84 [facility] documented in this encounter Plan of Treatment Upcoming Encounters Date Type Department Care Team (Late st Contact Info) Description 12/07/2023 12:00 PM EDT Office Visit Dermatology at [address] [phone] Juan F Chappell MD [facility] DR [place] [address] documented as of this encounter Visit Diagnoses Not on filedocumented in this encounter Care Teams Ferry Terminal Supervisor Relationship Specialty Start Date End Date Belén Griffin MD [address] [place] [address] [address] [facility] [address] [place] [address] PCP - General Family Medicine 05/07/15 documented as of this encounter
--- OUTSIDE RECORDS SUMMARY | 2023-10-28 00:41 | XMS_ITS | Encounter Summary ---
Author Organization Replaced By [facility] [place] [address] Care Team Providers Care Qm Consultant Name Role Phone Belén Griffin MD Primary Care Provider [phone] Encounter Details Date Type Department Care Team (Latest Contact Info) Description 01/10/2017 12:03 PM EST - 01/10/2017 11:59 PM [facility] Hospital Encounter Hematology [place] [phone] Status post autologous bone marrow transplant; Diffuse [...] 12:00 PM EDT Office Visit Dermatology at 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, unspecified body region CBC (WITH DIFF) STAT 01/10/2017 12:08 PM EST 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, unspecified body region LACTATE DEHYDROGENASE STAT 01/10/2017 12:08 PM EST 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, unspecified body region COMPREHENSIVE METABOLIC PANEL STAT 01/10/2017 12:08 PM EST 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, unspecified body region documented in this encounter Results * Differential, Automated (01/10/2017 12:08 PM EST) Neutrophil % 61.5 % [facility] Neutrophil Absolute 2.39 1.70 - 6.10 x10(3)/[facility] LAB[facility] Lymph % 23.1 % [facility] Lymphocytes Abs 0.9 0.9 - 3.2 x10(3)/[facility] Monocyte % 10.5 % [facility] Monocyte Abs 0.4 0.3 - 0.9 x10(3)/[facility] Eos % 3.6 % [facility] Eosinophils Abs 0.1 0.0 - 0.4 x10(3)/[facility] Basophil % 1.0 % [facility] Baso Absolute 0.0 0.0 - 0.1 x10(3)/[facility]OR[facility] Immature Gran % 0.30 % [facility] Comment: Immature granulocytes(IG's)percentage and absolute count will include metamyelocytes, myelocytes, and promyelocytes. Blood smears from CBCs yielding IG's will be scanned manually for concordance. If this scan disagrees with the automated IG or if promyelocytes are noted, a manual differential will be performed. Immature Gran Absolute 0.01 0.00 - 0.04 x10(3)/[facility] Blood specimen (specimen) 01/10/2017 12:08 PM EST 01/10/2017 12:26 PM EST Narrative Resulting Agency Comment Spec In Lab Kimberly Mondragon MD HEMATOLOGY ORDER AYO [facility] [place] [address] * (ABNORMAL) Hemogram (01/10/2017 12:08 PM EST) White Blood Cell 3.9(L) 4.0 - 9.5 x10(3)/[facility] LAB[facility] Red Blood Cell 3.68(L) 4.00 - 5.21 x10(6)/[facility] Hemoglobin 11.7 11.7 - 15.5 gm/dL [facility] Hematocrit 34.7(L) 35.7 - 45.8 % [facility] Mean Cell Volume 94.3 82.6 - 94.4 fL [facility] Mean Cell Hemoglobin 31.8 27.1 - 32.0 pg [facility] Mean Cell Hemoglobin Concentration 33.7 31.7 - 35.0 gm/dL [facility] Platelet 158 145 - 357 x10(3)/mc L [facility] RDW Standard Deviation 41.8 37.0 - 46.0 fL [facility] RDW coefficient of variation 12.0 11.5 - 14.1 % [facility] Mean Platelet Volume 8.5 7.6 - 12.9 fL [facility] NRBC% auto 0.0 % [facility] NRBC Absolute 0.000 0.000 - 0.000 x10(3)/mc L [facility] Blood specimen (specimen) 01/10/2017 12:08 PM EST 01/10/2017 12:26 PM EST Narrative Resulting Agency Comment Spec In Lab Kimberly Mondragon MD HEMATOLOGY ORDER AYO Performing Organization Address City/[facility]/ZIP Co de Phone Number [facility] [place] [address] * Lactate Dehydrogenase (01/10/2017 12:08 PM EST) Lactate Dehydrogenase 212 110 - 220 unit/L [facility] Blood specimen (specimen) 01/10/2017 12:08 PM EST 01/10/2017 12:26 PM EST Narrative Resulting Agency Comment Spec In Lab Kimberly Mondragon MD CHEMISTRY ORDERA BLES Performing Organization Address City/[facility]/ZIP Co de Phone Number [facility] [place] [address] * (ABNORMAL) Comprehensive metabolic panel (non-fasting) (01/10/2017 12:08 PM EST) Glucose 102 65 - 199 mg/dL [facility] Comment:Diabetes: >=200 mg/d L plus symptoms Blood Urea Nitrogen 23(H) 8 - 18 mg/dL [facility] Creatinine 1.06 0.70 - 1.20 mg/dL [facility] Sodium 140 135 - 145 mmol/L [facility] Potassium 3.7 3.5 - 5.0 mmol/L [facility] Comment: Please note: ??Patients with WBC >100,000 may have falsely elevated Potassium levels. ??For accurate Potassium quantification in these patients send serum separator tube (gold top) for subsequent determinations. ??Contact the Clinical Chemistry Laboratory if there are any questions. Chloride 98 98 - 107 mmol/L [facility] Carbon Dioxide 30 22 - 31 mmol/L [facility] Anion Gap 12 5 - 15 mmol/L [facility] Calcium 10.2 8.5 - 10.5 mg/dL [facility] Protein, Total 6.9 6.1 - 8.0 gm/dL [facility] Albumin 4.6 3.2 - 5.2 gm/dL [facility] Aspartate Aminotransferase 20 0 - 30 unit/L [facility] Alanine Aminotransferase 24 0 - 30 unit/L [facility] Alkaline Phosphatase 81 40 - 104 unit/L [facility] Bilirubin, Total 0.8 0.2 - 1.3 mg/dL [facility] Est Glomerular Filtration Rate 52(L) >=60 [facility] Comment: The reported eGFR should be multiplied by 1.2 for patients. The MDRD is not an appropriate measure of renal function for patients with body mass extremes or in patients with acute kidney failure. http://[employer]/DHnkdep http://[employer]/DHMCnkf Blood specimen (specimen) 01/10/2017 12:08 PM EST 01/10/2017 12:26 PM EST Narrative Resulting Agency Comment Spec In Lab Kimberly Mondragon MD CHEMISTRY ORDERA LEANNA [facility] [place] [address] documented in this encounter Visit Diagnoses Diagnosis Status post autologous bone marrow transplant Bone marrow replaced by transplant Diffuse large B-cell lymphoma, unspecified body region documented in this encounter Care Teams Qm Consultant Relationship Specialty Start Date End Date Belén Griffin MD [address] [place] [address] PCP - General Family Medicine 05/07/15 documented as of this encounter
--- OUTSIDE RECORDS SUMMARY | 2023-10-28 00:41 | XMS_ITS | Encounter Summary ---
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, unspecified body region Procedures CT Chest wo Contrast (Generic) Kimberly Mondragon MD [facility] DR HEMATOLOGY [place] [address] [facility] [place] [address] Referral ID Status Reason Start Date Expiration Date V isits Requested Visits Authorized [id number] Closed Specialty Service Requested 2017 01/02/2018 1 1 Reason for Visit * Diagnostic Test (Routine) - Closed Specialty Diagnoses / Procedures Referred By Perry cabrera Referred To Contact Radiology Diagnoses 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, unspecified body region Procedures CT Chest wo Contrast (Generic) Kimberly Mondragon MD [facility] DR HEMATOLOGY [place] [address] [facility] [place] [address] Referral ID Status Reason Start Date Expiration Date V isits Requested Visits Authorized [id number] Closed Specialty Service Requested 2017 01/02/2018 1 1 Encounter Details Date Type Department Care Team (Late st Contact Info) Description 10/27/2017 9:55 AM EDT - 10/27/2017 10:50 AM EDT Hospital [place] [address] Kimberly Mondragon MD [facility] DR HEMATOLOGY [place] [address] Status post autologous bone marrow transplant; Diffuse [...] 12:00 PM EDT Office Visit Dermatology at [facility] [address] [place] [address] Juan F Chappell MD [facility] DR RANDEE [place] [address] documented as of this encounter Procedures Procedure Name Priority Date/Time Associated Diagnosis Comments CT CHEST WO CONTRAST (GENERIC) Routine 10/27/2017 10:42 AM EDT 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
--- OUTSIDE RECORDS SUMMARY | 2023-10-28 00:41 | XMS_ITS | Encounter Summary ---
Author Organization [facility]ly [facility] Address [facility] [place] [address] Care Team Providers Care Deep Submergence Vehicle Operator Name Role Phone Belén Griffin MD Primary Care Provider [phone] Encounter Details Date Type Department Care Team (Latest Contact Info) Description 07/01/2016 9:06 AM EDT Hospital Encounter [place] [phone] Lymphoma, unspecified body region, unspecified lymphoma type [...] 12:00 PM EDT Office Visit Dermatology at [facility] [address] [place] [address] Juan F Chappell MD [facility] [place] [address] documented as of this encounter Procedures Procedure Name Priority Date/Time Associated Diagnosis Comments HEMOGRAM STAT 07/01/2016 9:31 AM EDT Lymphoma, unspecified body region, unspecified lymphoma type DIFFERENTIAL, AUTOMATED STAT 07/01/2016 9:31 AM EDT Lymphoma, unspecified body region, unspecified lymphoma type CBC (WITH DIFF) STAT 07/01/2016 9:31 AM EDT Lymphoma, unspecified body region, unspecified lymphoma type LACTATE DEHYDROGENASE STAT 07/01/2016 9:31 AM EDT Lymphoma, unspecified body region, unspecified lymphoma type COMPREHENSIVE METABOLIC PANEL STAT 07/01/2016 9:31 AM EDT Lymphoma, unspecified body region, unspecified lymphoma type documented in this encounter Results * Differential, Automated (07/01/2016 9:31 AM EDT) Neutrophil % 59.8 % [facility] Neutrophil Absolute 2.42 1.70 - 6.10 x10(3)/[facility] LABORATORY Lymph % 21.7 % [facility] Lymphocytes Abs 0.9 0.9 - 3.2 x10(3)/[facility]OR[facility]ORY Monocyte % 14.3 % [facility] Monocyte Abs 0.6 0.3 - 0.9 x10(3)/[facility]OR[facility] Eos % 3.5 % [facility] Eosinophils Abs 0.1 0.0 - 0.4 x10(3)/[facility] Basophil % 0.5 % [facility] Baso Absolute 0.0 0.0 - 0.1 x10(3)/[facility]OR[facility]ORY Immature Gran % 0.20 % [facility] Comment: Immature granulocytes(IG's)percentage and absolute count will include metamyelocytes, myelocytes, and promyelocytes. Blood smears from CBCs yielding IG's will be scanned manually for concordance. If this scan disagrees with the automated IG or if promyelocytes are noted, a manual differential will be performed. Immature Gran Absolute 0.01 0.00 - 0.04 x10(3)/[facility] LABOR[facility]ORY Blood specimen (specimen) 07/01/2016 9:31 AM EDT 07/01/2016 9:46 AM EDT Narrative Resulting Agency Comment Spec In Lab Kimberly Mondragon MD HEMATOLOGY ORDER AYO [facility] [place] [address] * (ABNORMAL) Hemogram (07/01/2016 9:31 AM EDT) White Blood Cell 4.0 4.0 - 9.5 x10(3)/mc L [facility] Red Blood Cell 3.60(L) 4.00 - 5.21 x10(6)/mc L [facility] Hemoglobin 11.7 11.7 - 15.5 gm/dL [facility] Hematocrit 33.9(L) 35.7 - 45.8 % [facility] Mean Cell Volume 94.2 82.6 - 94.[address] [facility] Mean Cell Hemoglobin 32.5(H) 27.1 - 32.[address] [facility] Mean Cell Hemoglobin Concentration 34.5 31.7 - 35.0 gm/dL [facility] Platelet 171 145 - 357 x10(3)/mc L [facility] RDW Standard Deviation 42.9 37.0 - 46.[address] [facility] RDW coefficient of variation 12.5 11.5 - 14.1 % [facility] Mean Platelet Volume 8.6 7.6 - 12.[address] [facility] NRBC% auto 0.0 % [facility] NRBC Absolute 0.000 0.000 - 0.000 x10(3)/mc L [facility] Blood specimen (specimen) 07/01/2016 9:31 AM EDT 07/01/2016 9:46 AM EDT Narrative Resulting Agency Comment Spec In Lab Kimberly Mondragon MD HEMATOLOGY ORDER AYO Performing Organization Address City/[facility]/ZIP Co de Phone Number [facility] [place] [address] * Lactate Dehydrogenase (07/01/2016 9:31 AM EDT) Lactate Dehydrogenase 187 110 - 220 unit/L [facility] Blood specimen (specimen) 07/01/2016 9:31 AM EDT 07/01/2016 9:46 AM EDT Narrative Resulting Agency Comment Spec In Lab Kimberly Mondragon MD CHEMISTRY ORDERA BLES Performing Organization Address City/[facility]/ZIP Co de Phone Number [facility] [place] [address] * (ABNORMAL) Comprehensive metabolic panel (non-fasting) (07/01/2016 9:31 AM EDT) Glucose 85 65 - 199 mg/dL [facility] Comment:Diabetes: >=200 mg/d L plus symptoms Blood Urea Nitrogen 23(H) 8 - 18 mg/dL [facility] Creatinine 1.05 0.70 - 1.20 mg/dL [facility] Comment: Please note that the pediatric reference intervals supplied above were not validated at [facility]. Results from pediatric patients should be interpreted in conjunction to the patient's age, height and muscle mass. Sodium 140 135 - 145 mmol/L [facility] Potassium 4.9 3.5 - 5.0 mmol/L [facility] Comment: Please note: ??Patients with WBC >100,000 may have falsely elevated Potassium levels. ??For accurate Potassium quantification in these patients send serum separator tube (gold top) for subsequent determinations. ??Contact the Clinical Chemistry Laboratory if there are any questions. Chloride 98 98 - 107 mmol/L [facility] Carbon Dioxide 28 22 - 31 mmol/L [facility] Anion Gap 14 5 - 15 mmol/L [facility] Calcium 10.3 8.5 - 10.5 mg/dL [facility] Protein, Total 7.1 6.1 - 8.0 gm/dL [facility] Albumin 4.5 3.2 - 5.2 gm/dL [facility] Aspartate Aminotransferase 24 0 - 30 unit/L [facility] Alanine Aminotransferase 27 0 - 30 unit/L [facility] Alkaline Phosphatase 82 40 - 104 unit/L [facility] Bilirubin, Total 0.9 0.2 - 1.3 mg/dL [facility] Bilirubin, Direct 0.2 0.0 - 0.3 mg/dL [facility] Est Glomerular Filtration Rate 53(L) >=60 [facility] Comment: This estimated GFR (eGFR) value was calculated using the MDRD equation which has been validated on patients between the ages of 18 and 70. The MDRD should not be used to assess kidney function in patients < 18 years of age or in patients with extremes of body mass, or in patients with acute kidney failure. This value should be multiplied by 1.2 for patients. For further information please copy and paste the following links into your internet browser. http://[employer]/DHnkdep http://[employer]/DHMCnkf Blood specimen (specimen) 07/01/2016 9:31 AM EDT 07/01/2016 9:46 AM EDT Narrative Resulting Agency Comment Spec In Lab Kimberly Mondragon MD CHEMISTRY ORDERA BLES [facility] [place] [id number] documented in this encounter Visit Diagnoses Diagnosis Lymphoma, unspecified body region, unspecified lymphoma type documented in this encounter Care Teams Deep Submergence Vehicle Operator Relationship Specialty Start Date End Date Belén Griffin MD [address] [facility] [place] [address] PCP - General Family Medicine 05/07/15 documented as of this encounter
--- OUTSIDE RECORDS SUMMARY | 2023-10-28 00:41 | XMS_ITS | Encounter Summary ---
Author Organization [facility] Address [facility] [place] [address] Care Team Providers Care Shuttle Spotter Name Role Phone Belén Griffin MD Primary Care Provider Encounter Details Date Type Department Care Team (Late st Contact Info) Description 12/01/2021 11:15 AM EDT Office Visit Dermatology at [facility] [address] [place] [address] Juan F Chappell MD [facility] DR RANDE[place] [address] Seborrheic keratosis; Lentigines; History of nonmelanoma skin cancer; Multiple benign nevi of upper extremity, lower extremity, and trunk Social History Tobacco Use Types Packs/Day Years [...] Progress Notes * Carolann Figueroa, SOBEIDA - 12/01/2021 11:15 AM EDT Images from the original note were not included. DEPARTMENT OF DERMATOLOGY Medical Dermatology Clinic Provider: Juan F Chappell MD Patient's preferred name Myriam Preferred contact method for results [x]?Phone []?myD-H []?Letter Detailed phone message OK? Yes Are there any other people with whom we may discuss your care? Past Medical History Date, location, treatment Melanoma N Dysplastic nevi N SCC N BCC BCC left lower eyelid, Moh's [facility] 06/[address]? Unsure ? Other relevant past medical history ?? Family History Details Melanoma ?? NMSC ?? 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 Pre-Procedure Screening Details Allergy to lidocaine, epinephrine, Dermabond, chlorhexidine, or adhesives N Bleeding disorder or blood thinners N Pacemaker, defibrillator, deep brain stimulator, cochlear implant N History of Present Illness: Myriam Vivas is a 71 y.o. Patient returns to clinic today for a fullskin exam with the following concerns: - Patient denies any specific skin concerns today; no lesions that are new, changing or symptomatic. Last visit at Dermatology: 12/01/2020 Last visit with this provider: 12/01/2020 Medications: Reviewed in eD-H Allergies: Reviewed in [...] not examined. Assessment/Plan #. Seborrheic Keratoses - stuck on, waxy papules on the trunk and extremities - Benign. No treatment needed. Patient reassured. ?? #. Solar lentigines - scattered light brown 3-6mm macules on the face, upper back, chest, bilateralarms, and bilateral lower extremities - Benign. No treatment needed. ?? #. Dermal Nevus- 2mm skin colored papule on the right arm -pt reassured. No further intervention required. If irritated can perform a shave removal #. History of BCC - Well-healed scar on the left lower eyelid per skin history. - No evidence of recurrence; will continue to monitor. RTC: 1 year for FSE []Note routed to laboratory secretary [x]Recall placed in scheduling system []Appointment scheduled at checkout Scribe attestation: SOBEIDA Nolan has performed the documentation for this encounter in thepresence of and acting as a scribe for Juan F Chappell MD. I performed the above scribed service and agree with the accuracy of the documentation in this encounter. Reviewed and signed by: Juan F Chappell MD Dermatology [facility] documented in this encounter Plan of Treatment Upcoming Encounters Date Type Department Care Team (Late st Contact Info) Description 12/07/2023 12:00 PM EDT Office Visit Dermatology at [facility] [address] [place] [address] Juan F Chappell MD [facility] [place] [address] documented as of this encounter Visit Diagnoses Diagnosis Seborrheic keratosis Other seborrheic keratosis Lentigines Other dyschromia History of nonmelanoma skin cancer Personal history of other malignant neoplasm of skin Multiple benign nevi of upper extremity, lower extremity, and trunk documented in this encounter Care Teams Shuttle Spotter Relationship Specialty Start Date End Date Belén Griffin MD [address] [facility] [place] [address] PCP - General Family Medicine 05/07/15 documented as of this encounter
--- OUTSIDE RECORDS SUMMARY | 2023-10-28 00:41 | XMS_ITS | Encounter Summary ---
Author Organization [facility] Address [facility] [place] [address] Care Team Providers Care Tool Engine Lathe Set Up Operator Name Role Phone Belén Griffin MD Primary Care Provider [phone] Encounter Details Date Type Department Care Team (Late Contact Info) Description 03/25/2016 Notes Only Hematology/Oncology at [address] [phone] Kimberly Mondragon MD [facility] DR HEMATOLOGY [place] [address] Social History Tobacco Use Types Packs/Day Years [...] Encounters Date Type Department Care Team (Late Contact Info) Description 12/07/2023 12:00 PM EDT Office Visit Dermatology at [facility] [address] [place] [address] Juan F Chappell MD [facility] DR RANDEE [place] [address] documented as of this encounter Visit Diagnoses Not on filedocumented in this encounter Care Teams Tool Engine Lathe Set Up Operator Relationship Specialty Start Date End Date Belén Griffin MD [address] [place] [address] PCP - General Family Medicine 05/07/15 documented as of this encounter
--- OUTSIDE RECORDS SUMMARY | 2023-10-28 00:41 | XMS_ITS | Encounter Summary ---
Author Organization [facility] Address [facility] [place] [address] Care Team Providers Care Vegetable Handler Name Role Phone Belén Griffin MD Primary Care Provider [phone] Encounter Details Date Type Department Care Team (Late st Contact Info) Description 05/10/2018 11:00 AM EDT Clinical Support Hematology/Oncology at [address] [phone] Kimberly Mondragon MD [facility] DR HEMATOLOGY [place] [address] Gabi Easley, ADRIEN [facility] DR [place] [address] Status post autologous bone marrow transplant; Diffuse [...] Sign Reading Time Taken Comments Blood Pressure 106/87 05/10/2018 11:12 AM EDT Pulse 76 05/10/2018 11:12 AM EDT Temperature 36.5 ??C (97.7 ??F) 05/10/2018 11:12 AM E DT Respiratory Rate 17 05/10/2018 11:12 AM EDT Oxygen Saturation 98% 05/10/2018 11:12 AM EDT Inhaled Oxygen Concentration - - Weight 68.9 kg (152 lb) 05/10/2018 11:12 AM EDT Height 157 cm (5' 1.81) 05/10/2018 11:12 AM EDT copied Body Mass Index 27.97 05/10/2018 11:12 AM EDT documented in this encounter Progress Notes * Gabi Easley, TRAVEL CLERK - 05/10/2018 11:00 AM EDT Subjective: Patient ID: Myriam Vivas is a 67 y.o. female here for f/u of NHL Patient Active Problem List Diagnosis ??? 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 Lymphoma TB discussion 10/01/14 Recommendations for salvage chemotherapy and autologous stem cell transplant. C#1 RDHAP 10/09/14 With stem cell collection C#2 RDHAP 11/04/14 PET scan negative! 11/25/14 ! ADMIT on 12/17/14 to [facility] for Autologous Peripheral BlN/ood Stem Cell Transplant [...] Negative ?? CT scan in December: Negative HPI Myriam is doing well. She is here today with her SO. She has no complaints or concerns. She is retiring next year and plans to winter in [facility] after that. She hash ahd no infections over the winter. Her energy is good - she does get tired at times but does interfere with her ADL's. She denies any lumps or bumps, no drenching night sweats. She just started weight watchers this week. Review of Systems Constitutional: Negative. HENT: Negative. Eyes: Negative. Respiratory: Negative. Negative for cough and shortness of breath. Cardiovascular: Negative. Negative for chest pain, palpitations and leg swelling. Gastrointestinal: Positive for constipation. Negative for diarrhea, nausea and vomiting. Uses colace, fiber supp and prunes with good effect Genitourinary: Negative. Musculoskeletal: Negative. Skin: Negative. Neurological: Negative. Negative for weakness and numbness. Psychiatric/Behavioral: Negative. Objective: Physical Exam Constitutional: She is oriented to person, place, and time. She appears well- developed and well-nourished. No distress. HENT: Mouth/Throat: Oropharynx is clear and moist. No oropharyngeal exudate. Eyes: Pupils are equal, round, and reactive to light. Conjunctivae are normal. Neck: Normal range of motion. Neck supple. Cardiovascular: Normal rate, regular rhythm and normal heart sounds. No murmur heard. Pulmonary/Chest: Effort normal and breath sounds normal. She has no wheezes. She has no rales. Abdominal: Soft. Bowel sounds are normal. She exhibits no mass. There is no rebound and no guarding. Musculoskeletal: Normal range of motion. She exhibits no edema. Lymphadenopathy: She has no cervical adenopathy. She has no axillary adenopathy. Right: No inguinal and no supraclavicular adenopathy present. Left: No inguinal and no supraclavicular adenopathy present. Neurological: She is alert and oriented to person, place, and time. Skin: Skin is warm and dry. Psychiatric: She has a normal mood and affect. Labs pending BP 106/87 (Patient Position: Sitting) Pulse 76 Temp 36.5 ??C (97.7 ??F) (Oral) Resp 17 Ht 157 cm (5' 1.81) Comment: copied Wt 68.9 kg (152 lb) SpO2 98% BMI 27.97 kg/m?? Assessment and Plan: 1. 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 She has been doing very well with no B symptoms, no adenopathy and no recent infections. Overall she is doing very well. Today we did review her survivorship care plan. Please see under problem list - Oncology treatment summary. We reviewed in detail. All questions were addressed. She is overdue for post treatment echo - we will get that scheduled at [facility] She unfortunately did not have labs prior to appointment today - she will go today for CBC/d, CMP and LDH. We will continue to follow prospectively in hematology clinic. Myriam Vivas will return to clinic in 6 months. she will call before then if any concerns or changes in status. documented in this encounter Plan of Treatment Upcoming Encounters Date Type Department Care Team (Late st Contact Info) Description 12/07/2023 12:00 PM EDT Office Visit Dermatology at [facility] [address] [place] [address] Juan F Chappell MD [facility] DR RANDEE [place] [address] documented as of this encounter Procedures Procedure Name Priority Date/Time Associated Diagnosis Comments ECHO SCAN (SCAN) 05/25/2018 12:0 0 AM EDT CBC (WITH DIFF) Routine 05/10/2018 LACTATE DEHYDROGENASE Routine 05/10/2018 COMPREHENSIVE METABOLIC PANEL Routine 05/10/2018 documented in this encounter Results * SCAN DOC: ECHO (05/25/2018 12:00 AM EDT) Anatomical Region Laterality Modality Cardiac Other Narrative 05/25/2018 12:00 AM EDT Ordered by an unspecified provider. Scanning Provider MEDIA MGR SCAN EXT O RDR/RSLT * Lactate Dehydrogenase (05/10/2018) Lactate Dehydrogenase 205 Blood specimen (specimen) 05/10/2018 Gabi Bassem Easley APRN CHEMISTRY ORDERABLES * Comprehensive metabolic panel (non-fasting) (05/10/2018) Blood Urea Nitrogen 30 Creatinine 1.12 Blood specimen (specimen) 05/10/2018 Gabi Bassem Easley APRN CHEMISTRY ORDERABLES * CBC (with Diff) (05/10/2018) White Blood Cell 5.52 Hemoglobin 13.0 Hematocrit 37.5 Platelet 200 Neutrophil Absolute (ANC) - Automated 3.54 Blood specimen (specimen) 05/10/2018 Gabi Bassem Easley APRN HEMATOLOGY ORDERABLE S documented in this encounter Visit Diagnoses Diagnosis Status post autologous bone marrow transplant Bone marrow replaced by transplant Diffuse large B-cell lymphoma, unspecified body region documented in this encounter Care Teams Vegetable Handler Relationship Specialty Start Date End Date Belén Griffin MD [address] [place] [address] PCP - General Family Medicine 05/07/15 documented as of this encounter
--- OUTSIDE RECORDS SUMMARY | 2023-10-28 00:41 | XMS_ITS | Encounter Summary ---
Author Organization [facility] Address [facility] [place] [address] Care Team Providers Care Hand Bander Name Role Phone Belén Griffin MD Primary Care Provider [phone] Encounter Details Date Type Department Care Team (Late st Contact Info) Description 08/18/2018 Orders Only Hematology [place] [address] Kimberly Mondragon MD [facility] DR HEMATOLOGY [place] [address] Diffuse large B-cell lymphoma, unspecified body region [...] 12:00 PM EDT Office Visit Dermatology at [facility] [address] [place] [address] Juan F Chappell MD [facility] DR RANDEE TINOCO-[place] [address] documented as of this encounter Visit Diagnoses Diagnosis Diffuse large B-cell lymphoma, unspecified body region documented in this encounter Care Teams Hand Bander Relationship Specialty Start Date End Date Belén Griffin MD [address] [place] [address] PCP - General Family Medicine 05/07/15 documented as of this encounter
--- OUTSIDE RECORDS SUMMARY | 2023-10-28 00:41 | XMS_ITS | Encounter Summary ---
Author Organization [facility] Address [facility] [place] [address] Care Team Providers Care Wallpaper Inspector And Shipper Name Role Phone Belén Griffin MD Primary Care Provider [phone] Encounter Details Date Type Department Care Team (Latest Contact Info) Description 10/27/2017 10:51 AM EDT - 10/27/2017 11:59 PM EDT Hospital Encounter [place] [phone] Status post autologous bone marrow transplant; Diffuse [...] Sig Dispensed Refills Start Date End Date b complex vitamins Tablet Take 1 tablet by mouth daily. 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, unspecified body region CBC (WITH DIFF) STAT 10/27/2017 11:00 AM EDT 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, unspecified body region LACTATE DEHYDROGENASE STAT 10/27/2017 11:00 AM EDT 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5 0.3 - 0.9 x10(3)/[facility] Eos % 3.1 % [facility] Eosinophils Abs 0.2 0.0 - 0.4 x10(3)/[facility] Basophil % 0.6 % [facility] Baso Absolute 0.0 0.0 - 0.1 x10(3)/[facility] Immature Gran % 0.20 % [facility] Comment: Immature granulocytes(IG's)percentage and absolute count will include metamyelocytes, myelocytes, and promyelocytes. Blood smears from CBCs yielding IG's will be scanned manually for concordance. If this scan disagrees with the automated IG or if promyelocytes are noted, a manual differential will be performed. Immature Gran Absolute 0.01 0.00 - 0.04 x10(3)/[facility] Blood specimen (specimen) 10/27/2017 11:00 AM EDT 10/27/2017 11:10 AM EDT Narrative Resulting Agency Comment Spec In Lab Kimberly Mondragon MD HEMATOLOGY ORDER AYO [facility] [place] [address] * (ABNORMAL) Hemogram (10/27/2017 11:00 AM EDT) White Blood Cell 5.2 4.0 - 9.5 x10(3)/ L [facility] Red Blood Cell 3.85(L) 4.00 - 5.21 x10(6)/ L [facility] Hemoglobin 12.3 11.7 - 15.5 gm/dL [facility] Hematocrit 35.5(L) 35.7 - 45.8 % [facility] Mean Cell Volume 92.2 82.6 - 94.4 fL [facility] Mean Cell Hemoglobin 31.9 27.1 - 32.0 pg [facility] Mean Cell Hemoglobin Concentration 34.6 31.7 - 35.0 gm/dL [facility] Platelet 186 145 - 357 x10(3)/mc L [facility] RDW Standard Deviation 40.3 37.0 - 46.0 [facility] RDW coefficient of variation 11.9 11.5 - 14.1 % [facility] Mean Platelet Volume 8.8 7.6 - 12.9 fL [facility] NRBC% auto 0.0 % [facility] NRBC Absolute 0.000 0.000 - 0.000 x10(3)/mc L [facility] Blood specimen (specimen) 10/27/2017 11:00 AM EDT 10/27/2017 11:10 AM EDT Narrative Resulting Agency Comment Spec In Lab Kimberly Mondragon MD HEMATOLOGY ORDER AYO Performing Organization Address City/[facility]/ZIP Co de Phone Number [facility] [place] [address] * Lactate Dehydrogenase (10/27/2017 11:00 AM EDT) [facility] Lactate Dehydrogenase 217 110 - 220 unit/L [facility] Blood specimen (specimen) 10/27/2017 11:00 AM EDT 10/27/2017 11:10 AM EDT Narrative Resulting Agency Comment Spec In Lab Kimberly Mondragon MD CHEMISTRY ORDERA BLES Performing Organization Address City/[facility]/ZIP Co de Phone Number [facility] [place] [address] * (ABNORMAL) Comprehensive metabolic panel (non-fasting) (10/27/2017 11:00 AM EDT) Glucose 94 65 - 199 mg/dL [facility] Comment:Diabetes: >=200 mg/d L plus symptoms Blood Urea Nitrogen 26(H) 8 - 18 mg/dL [facility] Creatinine 1.11 0.70 - 1.20 mg/dL [facility] Sodium 140 135 - 145 mmol/L [facility] Potassium 4.0 3.5 - 5.0 mmol/L [facility] Comment: Please note: ??Patients with WBC >100,000 may have falsely elevated Potassium levels. ??For accurate Potassium quantification in these patients send serum separator tube (gold top) for subsequent determinations. ??Contact the Clinical Chemistry Laboratory if there are any questions. Chloride 99 98 - 107 mmol/L [facility] Carbon Dioxide 28 22 - 31 mmol/L [facility] Anion Gap 13 5 - 15 mmol/L [facility] Calcium 10.2 8.5 - 10.5 mg/dL [facility] Protein, Total 7.3 6.1 - 8.0 gm/dL [facility] Albumin 4.3 3.2 - 5.2 gm/dL [facility] Aspartate Aminotransferase 22 0 - 30 unit/L [facility] Alanine Aminotransferase 25 0 - 30 unit/L [facility] Alkaline Phosphatase 88 40 - 104 unit/L [facility] Bilirubin, Total 0.9 0.2 - 1.3 mg/dL [facility] Est Glomerular Filtration Rate 52(L) >=60 mL/min/1. 73 m?? [facility] Comment: The eGFR was calculated using the CKD-EPI equation. As with all creatinine based estimates of kidney function, eGFR values calculated with the CKD-EPI equation are not accurate in patients with acute kidney failure, extremes of body mass or the acutely ill. [email or web address] eGFR 60 >=60 mL/min/1. 73 m?? [facility] Comment: The eGFR was calculated using the CKD-EPI equation. As with all creatinine based estimates of kidney function, eGFR values calculated with the CKD-EPI equation are not accurate in patients with acute kidney failure, extremes of body mass or the acutely ill. 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
--- OUTSIDE RECORDS SUMMARY | 2023-10-28 00:41 | XMS_ITS | Encounter Summary ---
Author Organization [facility] Address [facility] [place] [address] Care Team Providers Care Coil Tester Name Role Phone Belén Griffin MD Primary Care Provider [phone] Encounter Details Date Type Department Care Team (Latest Contact Info) Description 07/18/2017 11:24 AM EDT - 07/18/2017 11:59 PM EDT Hospital Encounter [place]ology [place] [phone] Status post autologous bone marrow transplant; Diffuse [...] 12:00 PM EDT Office Visit Dermatology at [facility] [address] [place] [address] Juan F Chappell MD [facility] DR RANDE[place] [address] documented as of this encounter Procedures Procedure Name Priority Date/Time Associated Diagnosis Comments HEMOGRAM STAT 07/18/2017 11:29 AM EDT 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, unspecified body region DIFFERENTIAL, AUTOMATED STAT 07/18/2017 11:29 AM EDT 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, unspecified body region CBC (WITH DIFF) STAT 07/18/2017 11:29 AM EDT 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, unspecified body region LACTATE DEHYDROGENASE STAT 07/18/2017 11:29 AM EDT 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, unspecified body region COMPREHENSIVE METABOLIC PANEL STAT 07/18/2017 11:29 AM EDT 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, unspecified body region documented in this encounter Results * Differential, Automated (07/18/2017 11:29 AM EDT) Neutrophil % 63.1 % [facility] Neutrophil Absolute 3.12 1.70 - 6.10 x10(3)/[facility] Lymph % 20.6 % [facility] Lymphocytes Abs 1.0 0.9 - 3.2 x10(3)/[facility] Monocyte % 11.7 % [facility] Monocyte Abs 0.6 0.3 - 0.9 x10(3)/[facility] Eos % 3.8 % [facility] Eosinophils Abs 0.2 0.0 - 0.4 x10(3)/[facility] Basophil % 0.6 % [facility] Baso Absolute 0.0 0.0 - 0.1 x10(3)/[facility] Immature Gran % 0.20 % [facility] Comment: Immature granulocytes(IG's)percentage and absolute count will include metamyelocytes, myelocytes, and promyelocytes. Blood smears from CBCs yielding IG's will be scanned manually for concordance. If this scan disagrees with the automated IG or if promyelocytes are noted, a manual differential will be performed. Immature Gran Absolute 0.01 0.00 - 0.04 x10(3)/[facility] Blood specimen (specimen) 07/18/2017 11:29 AM EDT 07/18/2017 11:40 AM EDT Narrative Resulting Agency Comment Spec In Lab Kimberly Mondragon MD HEMATOLOGY ORDER AYO [facility] [place] [address] * (ABNORMAL) Hemogram (07/18/2017 11:29 AM EDT) White Blood Cell 5.0 4.0 - 9.5 x10(3)/mc L [facility] Red Blood Cell 3.63(L) 4.00 - 5.21 x10(6)/mc L [facility] Hemoglobin 11.8 11.7 - 15.5 gm/dL [facility] Hematocrit 35.4(L) 35.7 - 45.8 % [facility] Mean Cell Volume 97.5(H) 82.6 - 94.4 fL [facility] Mean Cell Hemoglobin 32.5(H) 27.1 - 32.0 pg [facility] Mean Cell Hemoglobin Concentration 33.3 31.7 - 35.0 gm/dL [facility] Platelet 166 145 - 357 x10(3)/mc L [facility] RDW Standard Deviation 45.0 37.0 - 46.0 fL [facility] RDW coefficient of variation 12.4 11.5 - 14.1 % [facility] Mean Platelet Volume 8.7 7.6 - 12.9 fL [facility] NRBC% auto 0.0 % [facility] NRBC Absolute 0.000 0.000 - 0.000 x10(3)/mc L [facility] Blood specimen (specimen) 07/18/2017 11:29 AM EDT 07/18/2017 11:40 AM EDT Narrative Resulting Agency Comment Spec In Lab Kimberly Mondragon MD HEMATOLOGY ORDER AYO Performing Organization Address City/[facility]/ZIP Co de Phone Number [facility] [place] [address] * Lactate Dehydrogenase (07/18/2017 11:29 AM EDT) Lactate Dehydrogenase 198 110 - 220 unit/L [facility] Blood specimen (specimen) 07/18/2017 11:29 AM EDT 07/18/2017 11:40 AM EDT Narrative Resulting Agency Comment Spec In Lab Kimberly Mondragon MD CHEMISTRY ORDERA BLES Performing Organization Address [facility] Co de Phone Number [facility] [place] [address] * (ABNORMAL) Comprehensive metabolic panel (non-fasting) (07/18/2017 11:29 AM EDT) Glucose 70 65 - 199 mg/dL [facility] Comment:Diabetes: >=200 mg/d L plus symptoms Blood Urea Nitrogen 28(H) 8 - 18 mg/dL [facility] Creatinine 1.13 0.70 - 1.20 mg/dL [facility] Sodium 146(H) 135 - 145 mmol/L [facility] Potassium 4.5 3.5 - 5.0 mmol/L [facility] Comment: Please note: ??Patients with WBC >100,000 may have falsely elevated Potassium levels. ??For accurate Potassium quantification in these patients send serum separator tube (gold top) for subsequent determinations. ??Contact the Clinical Chemistry Laboratory if there are any questions. Chloride 102 98 - 107 mmol/L [facility] Carbon Dioxide 29 22 - 31 mmol/L [facility] Anion Gap 15 5 - 15 mmol/L [facility] Calcium 10.3 8.5 - 10.5 mg/dL [facility] Protein, Total 6.7 6.1 - 8.0 gm/dL [facility] Albumin 4.2 3.2 - 5.2 gm/dL [facility] Aspartate Aminotransferase 24 0 - 30 unit/L [facility] Alanine Aminotransferase 32(H) 0 - 30 unit/L [facility] Alkaline Phosphatase 89 40 - 104 unit/L [facility] Bilirubin, Total 0.6 0.2 - 1.3 mg/dL [facility] Est Glomerular Filtration Rate 48(L) >=60 [facility] Comment: The reported eGFR should be multiplied by 1.2 for patients. The MDRD is not an appropriate measure of renal function for patients with body mass extremes or in patients with acute kidney failure. http://[employer]/DHnkdep [email or web address]://[employer]/DHMCnkf Blood specimen (specimen) 07/18/2017 11:29 AM EDT 07/18/2017 11:40 AM EDT Narrative Resulting Agency Comment Spec In Lab Kimberly Mondragon MD CHEMISTRY ORDERA BLES [facility] [place] [address] documented in this encounter Visit Diagnoses Diagnosis Status post autologous bone marrow transplant Bone marrow replaced by transplant Diffuse large B-cell lymphoma, unspecified body region documented in this encounter Care Teams Coil Tester Relationship Specialty Start Date End Date Belén Griffin MD [address] [place] [address] PCP - General Family Medicine 05/07/15 documented as of this encounter
--- OUTSIDE RECORDS SUMMARY | 2023-10-28 00:41 | XMS_ITS | Encounter Summary ---
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, unspecified body region Procedures CT Chest wo Contrast (Generic) Kimberly Mondragon MD [facility] [place] [address] [facility] [place] [address] Referral ID Status Reason Start Date Expiration Date V isits Requested Visits Authorized [id number] Closed Specialty Service Requested 07/06/2017 2017 1 1 Reason for Visit * Diagnostic Test (Routine) - Closed Specialty Diagnoses / Procedures Referred By Perry cabrera Referred To Contact Radiology Diagnoses 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, unspecified body region Procedures CT Chest wo Contrast (Generic) Kimberly Mondragon MD [facility] [place] [address] [facility] [place] [address] Referral ID Status Reason Start Date Expiration Date V isits Requested Visits Authorized [id number] Closed Specialty Service Requested 07/06/2017 2017 1 1 Encounter Details Date Type Department Care Team (Late st Contact Info) Description 07/18/2017 10:33 AM EDT - 07/18/2017 11:23 AM EDT Hospital [place] [address] Kimberly Mondragon MD [facility] [address] [place] [address] Status post autologous bone marrow [...] 12:00 PM EDT Office Visit Dermatology at [facility] [address] [place] [address] Juan F Chappell MD [facility] [address] [place] [address] documented as of this encounter Procedures Procedure Name Priority Date/Time Associated Diagnosis Comments CT CHEST WO CONTRAST (GENERIC) Routine 07/18/2017 11:16 AM EDT 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 Left lower lobe opacity, indeterminate but unchanged. 2. New scattered tree-in-bud opacities and an oblong nodular opacity in the right lower lobe that may reflect minimal bronchiolitis and enlarged intrapulmonary lymph node, respectively, for which 3 month follow-up noncontrast chest CT is suggested to look for resolution versus persistence. Narrative 07/18/2017 12:06 PM EDT EXAMINATION: CT CHEST WO CONTRAST (GENERIC) CLINICAL HISTORY: h/o lymphoma. ?? s/p auto transplant Dec 2014. ?? Following LLL nodule - 6 month f/u . TECHNIQUE: 2.5 mm thick axial contiguous sections were obtained through the chest via helical acquisition without intravenous contrast administration using low radiation dose technique. Thin-section reconstructions as well as coronal and sagittal reformatted images were generated. COMPARISON: 01/10/2017 FINDINGS: Pulmonary parenchyma: No appreciable change in [...] new findings. Skeletal structures: No new findings. Procedure Note Kalie Solorzano MD - 07/18/2017 EXAMINATION: CT CHEST WO CONTRAST (GENERIC) CLINICAL HISTORY: h/o lymphoma. s/p auto transplant Dec 2014.Following LLL nodule - 6 month f/u . TECHNIQUE: 2.5 mm thick axial contiguous sections were obtained throughthe chest via helical acquisition without intravenous contrast administrationusing low radiation dose technique. Thin-section reconstructions as well ascoronal and sagittal reformatted images were generated. COMPARISON: 01/10/2017 FINDINGS: Pulmonary parenchyma: No appreciable change in the approximately 10 mmleft lower lobe irregular nodular opacity, see series 4 images 72 and 73compared to series 4 images 48 and 49 of prior and series 4 images 49-50 of the07/01/2016 study, and remains relatively flat on orthogonal reconstructions. New oblong nodular opacity at the right lung base measuring 7 x 5 mm,possibly an enlarged intrapulmonary lymph node in this patient who has [id number] opacities slightly more superiorly, see for example series 4 image 60.New smaller focal areas of tree-in-bud opacity are also present in the leftupper lobe, see series 4 image 46 and at the base of the right middle lobe, seeseries 4 image 74. Airways: No endobronchial opacities identified. Pleura: No pleural effusion seen. Lymph nodes: No interval lymph node enlargement identified within limitsof noncontrast technique. Heart, pericardium, and great vessels: Pericardial effusion or otherinterval change. Other mediastinal structures: No new findings. Lower neck: No new findings. Upper abdomen: No new findings. Skeletal structures: No new findings. IMPRESSION ` 1. Left lower lobe opacity, indeterminate but unchanged. 2. New scattered tree-in-bud opacities and an oblong nodular opacity inthe right lower lobe that may reflect minimal bronchiolitis and enlarged intrapulmonary lymph node, respectively, for which 3 month follow-upnoncontrast chest CT is suggested to look for resolution versus persistence. Kimberly Mondragon MD IMG CT ORDERABLE S documented in this encounter Visit Diagnoses Diagnosis Status post autologous bone marrow transplant Bone marrow replaced by transplant Diffuse large B-cell lymphoma, unspecified body region documented in this encounter Care Teams Rv Detailer Relationship Specialty Start Date End Date Belén Griffin MD [address] [place] [address] PCP - General Family Medicine 05/07/15 documented as of this encounter
--- OUTSIDE RECORDS SUMMARY | 2023-10-28 00:41 | XMS_ITS | Encounter Summary ---
Author Organization [facility] Address [facility] [place] [address] Care Team Providers Care Oven Stripper Name Role Phone Belén Griffin MD Primary Care Provider Reason for Referral * Diagnostic Test (Routine) - Closed Specialty Diagnoses / Procedures Referred By Perry cabrera Referred To Contact Radiology Diagnoses Status post autologous bone marrow transplant Lymphoma in remission Procedures CT Chest Abdomen Pelvis w Contrast (Generic) Kimberly Mondragon MD [facility] DR HEMATOLOGY [place] [address] [facility] [place] [address] Referral ID Status Reason Start Date Expiration Date V isits Requested Visits Authorized [id number] Closed Specialty Service Requested 06/24/2016 09/22/2016 1 1 Encounter Details Date Type Department Care Team (Late st Contact Info) Description 03/24/2016 1:30 PM EST Office Visit Hematology/Oncology at [address] [address] Kimberly Mondragon MD [facility] DR HEMATOLOGY [place] [address] Status post autologous bone marrow transplant; Lymphoma in remission Social History Tobacco Use Types Packs/Day Years [...] Sign Reading Time Taken Comments Blood Pressure - - Pulse 88 03/24/2016 1:26 PM EST Temperature 36.5 ??C (97.7 ??F) 03/24/2016 1:26 PM ES T Respiratory Rate 16 03/24/2016 1:26 PM EST Oxygen Saturation 100% 03/24/2016 1:26 PM EST Inhaled Oxygen Concentration - - Weight 61.7 kg (136 lb) 03/24/2016 1:26 PM EST Height 157.5 cm (5' 2.01) 03/24/2016 1:26 PM ES T Body Mass Index 24.87 03/24/2016 1:26 PM EST documented in this encounter Progress Notes * Kimberly Mondragon MD - 03/24/2016 1:30 PM EST Hematology/[place] [address] FOLLOW-UP PATIENT EVALUATION Patient Active Problem List [...] was not informative according to the Bassem digital circuit designer, but the strong BCL2 expression in the absence of MUM1 suggests a germinal center origin via the Muris digital circuit designer. Lymphoma TB discussion 10/01/14 Recommendations for salvage chemotherapy and autologous stem cell transplant. C#1 RDHAP 10/09/14 With stem cell collection C#2 RDHAP 11/04/14 PET scan negative! 11/25/14 ! ADMIT on 12/17/14 [place] [facility] [place] Peripheral BlN/ood Stem Cell Transplant [...] OF PRESENT ILLNESS: Myriam Vivas is a 64yo female with Primary Refractory DLBCL. She is 1 year (01/02/2015) s/p an Autologous peripheral blood stem cell transplant. Here for a 3 month followup. No new health concerns. Almost back to work full-time. Less anxiety. Tired at end of the day. Dating Carlos and going on vacation soon to [place]. Brain is a little fuzzy, especially when she is tired. Able to get done what she wants to get done. Exercises in the morning. No fevers or recent infections. No B symptoms. Ex- is back in skilled nursing, which continues to cause much emotional stress. MEDICATIONS: Current Outpatient Prescriptions on File Prior to Visit Medication Sig Dispense Refill ??? escitalopram (LEXAPRO) [...] RELEVANT FAMILY HISTORY: No ROS Energy level: Improved Pain: No Appetite:good Fevers/chills/sweats:No Bruising/bleeding/melena:No Recent infections:No [...] Neurologic symptoms:No Mental Status changes: neg Mood: Depression with anxiety Sleep: No difficulty sleeping PHYSICAL EXAM: Pulse 88 Temp 36.5 ??C (97.7 ??F) (Oral) Resp 16 Ht 157.5 cm (5' 2.01) Wt 61.7 kg (136 lb) SpO2 100% BMI 24.87 kg/m2 GENERAL: Myriam Vivas is healthy appearing and looks great!!! Her hair is chort and curly. She looks beautiful. Accompanied by significant other. HEENT: Oral mucosa is clear. Neck: Supple Lungs: Clear breath sounds bilaterally Heart: Regular rate and rhythm without murmur Abdomen: Soft, nontender and no organomegaly Skin: No rash Extremity: shows no edema Muskuloskeletal: Stable Neuro: A+O x 3 Psychiatric: Normal. LABORATORY STUDIES: No results found for this or any previous visit (from the past 72 hour(s)). Labs at [facility] dated 03/15/16: Wbc 3.0 hgb 11.2 plt 174k anc 1.74 Creat 1.0 LFT Normal LDH 183 normal RADIOLOGY STUDIES: ?? CT of C/A/P on 12/25/15: FINDINGS: ? Chest Lungs and large airways: No abnormal opacity Pleura: No effusion Heart: Normal size, no pericardial effusion Mediastinum and carlo: No lymphadenopathy Axilla: Stable centimeter or less LEFT axillary lymph nodes, which were not metabolically active on the recent PET/CT. Abdomen/pelvis Liver: Within normal limits. Bile ducts: Normal caliber Gallbladder: No calcified gallstones. Normal caliber wall. Pancreas: Normal Spleen: Normal Adrenals: Normal Kidneys: Small, 6 mm, cyst in the interpole region of the LEFT kidney. No hydronephrosis bilaterally. ?? Lymph nodes: No enlarged abdominal or pelvic lymph nodes Bowel: Normal caliber, no wall thickening Peritoneum and mesentery: No ascites or free air, no fluid collection Reproductive organs: Within normal limits. Osseous structures: No suspicious lesions. ?? IMPRESSION No evidence of disease recurrence. ASSESSMENT: Myriam Vivas is a delightful 65 y.o. female with Primary Refractory DLBCL. She is 1 year s/p an Autologous pb stem cell transplant. ?? 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 No evidence of recurrent disease. NEGATIVE CT scan today ?? ID - No focal s/s of infection. - Has completed one year of Acyclovir 800mg bid. Discontinued. ?? Psychosocial - Depression and Anxiety has been an issue throughout her treatment. Remains on Lexapro with Ativan0.5mg TID. If she is late taking a dose of Ativan, she feels poorly, anxious, trembles, as if she is going through withdrawal. She would like to try and wean off of it, once the issues surrounding her ex- settle down. She has a therapist. ?? Vaccines - Completed 3 sets of vaccines. She will be due for boosters, 18 months post transplant, therefore, her next set of vaccines will be due June. - MMR #1 in 12/31 and MMR #2 in 02/2017. ?? Disposition ?? RTC at [facility] [place] - will also check a CT scan CAP on the same day which will be 18 mos post transplant ?? Vaccines at [facility] in June 2016 (18 month post transplant vaccines). ?? Ongoing routine health maintenance, ie Check TSH annually, along with fasting glucose and cholesterol. Mammo, colo, pap smear/pelvic exam, etc. CC: Belén Griffin MD documented in this encounter Plan of Treatment Upcoming Encounters Date Type Department Care Team (Late st Contact Info) Description 12/07/2023 12:00 PM EDT Office Visit Dermatology at [facility] [address] [place] [address] Juan F Chappell MD [facility] [place] [address] documented as of this encounter Results * CT Chest Abdomen Pelvis w Contrast (Generic) (07/01/2016 11:17 AM EDT) Anatomical Region Laterality Modality Abdomen, Pelvis Computed Tomogra phy Impressions 07/01/2016 12:09 PM EDT New 10 mm left lower lobe opacity which I suspect is inflammatory in nature. Follow-up to ensure resolution is suggested. Remainder of this exam is stable without pathologically enlarged lymph nodes. Narrative 07/01/2016 12:09 PM EDT EXAMINATION: CT CHEST ABDOMEN PELVIS W CONTRAST (GENERIC) CLINICAL HISTORY: restage lymphoma - 18 mos s/p transplant TECHNIQUE: Helical CT of the chest, abdomen, and pelvis was performed following intravenous administration of 71 ml of Omnipaque 350 Oral contrast was administered. COMPARISON: December 25, 2015 FINDINGS: Chest: Lungs and large airways: New 10 mm left lower lobe opacity. Pleura: No effusion. Heart/vasculature: Normal. Lymph nodes/Mediastinum/Carlo: Stable subcentimeter left axillary lymph nodes. None pathologically enlarged. Abdomen/pelvis: Liver: Normal size and attenuation without lesions. Bile ducts: Nondilated. Gallbladder: No calcified gallstones. Normal caliber wall. Pancreas: Normal attenuation without ductal dilatation. Spleen: Normal. Adrenals: Normal. Kidneys: Stable hypodense subcentimeter left interpolar renal lesion too small to further characterize though I suspect simple cyst. No suspicious lesions. ? Vasculature: Normal Lymph Nodes: ??No enlarged lymph nodes. Bowel: Moderate fecal load. Loops of large and small bowel are normal in caliber without mural thickening. Stomach is decompressed. Peritoneum and mesentery: No ascites, free air, or loculated fluid collection. No mesenteric inflammation. Abdominal wall: Normal. Urinary Bladder: Normal. Reproductive organs: Normal. Osseous structures: No suspicious lesions. Procedure Note Marci Grover MD - 07/01/2016 EXAMINATION: CT CHEST ABDOMEN PELVIS W CONTRAST (GENERIC) CLINICAL HISTORY: restage lymphoma - 18 mos s/p transplant TECHNIQUE: Helical CT of the chest, abdomen, and pelvis was performedfollowing intravenous administration of 71 ml of Omnipaque 350 Oral contrast was administered. COMPARISON: December 25, 2015 FINDINGS: Chest: Lungs and large airways: New 10 mm left lower lobe opacity. Pleura: No effusion. Heart/vasculature: Normal. Lymph nodes/Mediastinum/Carlo: Stable subcentimeter left axillary lymphnodes. None pathologically enlarged. Abdomen/pelvis: Liver: Normal size and attenuation without lesions. Bile ducts: Nondilated. Gallbladder: No calcified gallstones. Normal caliber wall. Pancreas: Normal attenuation without ductal dilatation. Spleen: Normal. Adrenals: Normal. Kidneys: Stable hypodense subcentimeter left interpolar renal lesion toosmall to further characterize though I suspect simple cyst. No suspiciouslesions. Vasculature: Normal Lymph Nodes: No enlarged lymph nodes. Bowel: Moderate fecal load. Loops of large and small bowel are normal incaliber without mural thickening. Stomach is decompressed. Peritoneum and mesentery: No ascites, free air, or loculated fluidcollection. No mesenteric inflammation. Abdominal wall: Normal. Urinary Bladder: Normal. Reproductive organs: Normal. Osseous structures: No suspicious lesions. IMPRESSION New 10 mm left lower lobe opacity which I suspect is inflammatory innature. Follow-up to ensure resolution is suggested. Remainder of this exam is stable without pathologically enlarged lymphnodes. Kimberly Mondragon MD IMG CT ORDERABLE S documented in this encounter Visit Diagnoses Diagnosis Status post autologous bone marrow transplant Bone marrow replaced by transplant Lymphoma in remission Other malignant lymphomas, unspecified site, extranodal and solid organ sites Status post autologous bone marrow transplant Bone marrow replaced by transplant Lymphoma in remission Other malignant lymphomas, unspecified site, extranodal and solid organ sites documented in this encounter Care Teams Oven Stripper Relationship Specialty Start Date End Date Belén Griffin MD [address] [facility] [address] [place] [address] PCP - General Family Medicine 05/07/15 documented as of this encounter
--- OUTSIDE RECORDS SUMMARY | 2023-10-28 00:41 | XMS_ITS | Encounter Summary ---
Author Organization [facility] Address [facility] [place] [address] Care Team Providers Care Gift Basket Packer Name Role Phone Belén Griffin MD Primary Care Provider [phone] Encounter Details Date Type Department Care Team (Late st Contact Info) Description 07/18/2017 Orders Only Hematology [place] [address] Kimberly Mondragon MD [facility] [address] [place] [address] Social History Tobacco Use Types Packs/Day Years [...] 12:00 PM EDT Office Visit Dermatology at [facility] [address] [place] [address] Juan F Chappell MD [facility] DR [facility] [address] documented as of this encounter Visit Diagnoses Not on filedocumented in this encounter Care Teams Gift Basket Packer Relationship Specialty Start Date End Date Belén Griffin MD [address] [place] [address] PCP - General Family Medicine 05/07/15 documented as of this encounter
--- OUTSIDE RECORDS SUMMARY | 2023-10-28 00:41 | XMS_ITS | Encounter Summary ---
Author Organization [facility] [place] [address] Care Team Providers Care Plate Furnace Operator Name Role Phone Belén Griffin MD Primary Care Provider [phone] Encounter Details Date Type Department Care Team (Latest Contact Info) Description 07/01/2016 9:07 AM EDT - 07/01/2016 11:59 PM EDT Hospital Encounter [place]ematology [place] [address] Status post autologous bone marrow transplant Discharge Disposition: Home Social History Tobacco Use [...] as of this encounter Progress Notes * Eli Matute RN - 07/01/2016 2:59 PM EDT Patient Name: Myriam Vivas Patient Age: 65 y.o. Birthdate: 1950 Admit date: 07/01/2016 Attending Physician: Jennifer att. providers found Access visit. See MAR and/or flowsheet. Patient received post transplant vaccinations, see MAR for details. Patient tolerated with out issue. documented in this encounter Plan of Treatment Upcoming Encounters Date Type Department Care Team (Late st Contact Info) Description 12/07/2023 12:00 PM EDT Office Visit Dermatology at [address] [address] Juan F Chappell MD [facility] DR RANDEE [place] [address] documented as of this encounter Visit Diagnoses Diagnosis Status post autologous bone marrow transplant Bone marrow replaced by transplant documented in this encounter Care Teams Plate Furnace Operator Relationship Specialty Start Date End Date Belén Griffin MD [address] [place] [address] PCP - General Family Medicine 05/07/15 documented as of this encounter
--- OUTSIDE RECORDS SUMMARY | 2023-10-28 00:41 | XMS_ITS | Encounter Summary ---
Author Organization [facility] Address [facility] [place] [address] Care Team Providers Care School Library Media Program Director Name Role Phone Belén Griffin MD Primary Care Provider [phone] Reason for Referral * Diagnostic Test (Routine) - Closed Specialty Diagnoses / Procedures Referred By Perry cabrera Referred To Contact Radiology Diagnoses 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, unspecified body region Procedures CT Chest wo Contrast (Generic) Kimberly Velez MD [facility] [address] HEMATOLOGY [place] [address] [facility] [place] [address] Referral ID Status Reason Start Date Expiration Date V isits Requested Visits Authorized [id number] Closed Specialty Service Requested 07/06/2017 2017 1 1 Reason for Visit * Reason Comments Follow-up Encounter Details Date Type Department Care Team (Late st Contact Info) Description 01/10/2017 2:30 PM EST Office Visit Hematology [place] [address] Kimberly Velez MD [facility] DR HEMATOLOGY [place] [address] Kisha Vazquez MD [facility] HEMATOLOGY/[place] [address] Status post autologous bone marrow transplant; Diffuse [...] Sign Reading Time Taken Comments Blood Pressure 95/65 01/10/2017 2:28 PM EST Pulse 95 01/10/2017 2:28 PM EST Temperature 36.7 ??C (98.1 ??F) 01/10/2017 2:28 PM ES T Respiratory Rate 17 01/10/2017 2:28 PM EST Oxygen Saturation 96% 01/10/2017 2:28 PM EST Inhaled Oxygen Concentration - - Weight 68.9 kg (152 lb) 01/10/2017 2:28 PM EST Height 157 cm (5' 1.81) 01/10/2017 2:28 PM EST Body Mass Index 27.97 01/10/2017 2:28 PM EST documented in this encounter Progress Notes * Kimberly Velez MD - 01/10/2017 2:30 PM EST Hematology/[place] [address] FOLLOW-UP PATIENT EVALUATION Patient Active Problem List [...] was not informative according to the Bassem transmission technician, but the strong BCL2 expression in the absence of MUM1 suggests a germinal center origin via the Muris transmission technician. Lymphoma TB discussion 10/01/14 Recommendations for salvage chemotherapy and autologous stem cell transplant. C#1 RDHAP 10/09/14 With stem cell collection C#2 RDHAP 11/04/14 PET scan negative! 11/25/14 ! ADMIT on 12/17/14 to [facility] for Autologous Peripheral BlN/ood Stem Cell Transplant [...] female with Primary Refractory DLBCL. She is 24 months (01/02/2015) s/p an Autologous peripheral blood stem cell transplant. Here for a 3 month followup. She is working full-time. Carlos has retired and bought a house in [place]. She is still dealing with fatigue which is stable. She sleeps well with Tylenol PM nightly. Naps daily. Decreasing her ativan w/ Dr Griffni's direction. She has been healthy - no recent infections. No B symptoms. No new adenopathy. She has no pulmonary or infectious symptoms. Her primary care and dental is UTD [...] by mouth every evening. Reported on 03/24/2016 Current Facility-Administered Medications on File Prior to Visit Medication Dose Route Frequency Provider Last Rate Last Dose ??? [COMPLETED] iohexol (OMNIPAQUE) 350 mg/mL solution 0-200 mL 0-200 mL Intravenous Once PRN Kalie Solorzano MD 60 mL at 01/10/17 3294 ALLERGIES: Allergies Allergen Reactions ??? Levofloxacin Other [...] Sleep: No difficulty sleeping PHYSICAL EXAM: BP 95/65 (Patient Position: Sitting) Pulse 95 Temp 36.7 ??C (98.1 ??F) (Oral) Resp 17 Ht 157 cm (5' 1.81) Wt 68.9 kg (152 lb) SpO2 96% BMI 27.97 kg/m2 GENERAL: Myriam Vivas is healthy appearing [...] (non-fasting) Result Value Ref Range Glucose Lvl 102 65 - 199 mg/dL BUN 23 (H) 8 - 18 mg/dL Creatinine 1.06 0.70 - 1.20 mg/dL Sodium 140 135 - 145 mmol/L Potassium 3.7 3.5 - 5.0 mmol/L Chloride 98 98 - 107 mmol/L CO2 30 22 - 31 mmol/L Anion Gap 12 5 - 15 mmol/L Calcium 10.2 8.5 - 10.5 mg/dL Total Protein 6.9 6.1 - 8.0 gm/dL Albumin 4.6 3.2 - 5.2 gm/dL AST 20 0 - 30 unit/L ALT 24 0 - 30 unit/L Alk Phos 81 40 - 104 unit/L Total Bilirubin 0.8 0.2 - 1.3 mg/dL Estimated GFR 52 (L) >=60 Lactate Dehydrogenase Result Value Ref Range LDH 212 110 - 220 unit/L Hemogram Result Value Ref Range WBC 3.9 (L) 4.0 - 9.5 x10(3)/mcL RBC 3.68 (L) 4.00 - 5.21 x10(6)/mcL Hemoglobin 11.7 11.7 - 15.5 gm/dL Hematocrit 34.7 (L) 35.7 - 45.8 % MCV 94.3 82.6 - 94.4 fL MCH 31.8 27.1 - 32.0 pg MCHC 33.7 31.7 - 35.0 gm/dL Platelets 158 145 - 357 x10(3)/mcL RDWSD 41.8 37.0 - 46.0 fL RDWCV 12.0 11.5 - 14.1 % MPV 8.5 7.6 - 12.9 fL nRBC % Auto 0.0 % nRBC Abs Auto 0.000 0.000 - 0.000 x10(3)/mcL Differential, Automated Result Value Ref Range Neutrophils % 61.5 % Neutr Abs (ANC) 2.39 1.70 - 6.10 x10(3)/mcL Lymphocytes % 23.1 % Lymphocytes Abs 0.9 0.9 - 3.2 x10(3)/mcL Monocytes % 10.5 % Monocyte Abs 0.4 0.3 - 0.9 x10(3)/mcL Eosinophils % 3.6 % Eosinophils Abs 0.1 0.0 - 0.4 x10(3)/mcL Basophils % 1.0 % Basophils Abs 0.0 0.0 - 0.1 x10(3)/mcL Immature Gran % 0.30 % [place] Gran Abs 0.01 0.00 - 0.04 x10(3)/mcL RADIOLOGY STUDIES: EXAMINATION: CT CHEST W CONTRAST ?? CLINICAL HISTORY: Hx of Lymphoma. 10mm left lobe opacity. r/o resolution. ?? TECHNIQUE: 3.75 mm thick axial contiguous sections were obtained through the chest via helical acquisition after the intravenous administration of 60 cc of Omnipaque-350. Thin-section reconstructions as well as coronal and sagittal reformatted images were generated. ?? COMPARISON: 07/01/2016. ?? FINDINGS: Pulmonary parenchyma: Although the left lower [...] Skeletal structures: No suspicious interval osseous findings. ?? IMPRESSION Persistent left lower lobe basal opacity, but appears slightly flatter on orthogonal reconstructions, thus may reflect a very slowly organizing focal inflammatory/infectious process. Continued CT surveillance is recommended, which can be performed with noncontrast technique. No new or progressive findings. ASSESSMENT: Myriam Vivas is a delightful 66 [...] left lower lobe opacity is disease, but today we did a 6 month f/u CT chest with minimal change. See above. We will plan repeat CT chest in [address] CAP was in June 2016 so no need to do abd/pelvis again at this time. ?? ID - No focal s/s of [...] recurrent lymphoma. Repeat CT chest w/o contrast June 2017. ?? Survivorship -Ongoing routine health maintenance with PCP, ie Check TSH annually, along with fasting glucose and cholesterol. Mammo, colo, pap smear/pelvic exam, etc.: These are all up to date!! ?? RTC in 6 months to [facility] with labs and a repeat chest CT at that time. She will call sooner if she has any new or concerrning symptoms. CC: Belén Griffin MD documented in this encounter Miscellaneous Notes * Addendum Note - Kimberly Velez MD - 01/10/2017 3:54 PM ESTAddended by: KIMBERLY VELEZ on: 01/10/2017 03:54 PM Modules accepted: Orders * Addendum Note - Kimberly Velez MD - 01/10/2017 3:33 PM ESTAddended by: KIMBERLY VELEZ on: 01/10/2017 03:33 PM Modules accepted: Orders documented in this encounter Plan of Treatment Upcoming Encounters Date Type Department Care Team (Late st Contact Info) Description 12/07/2023 12:00 PM EDT Office Visit Dermatology at [facility] [address] [place] [address] Juan F Chappell MD [facility] DR RANDEE [place] [address] documented as of this encounter Results * [...] lymph node in this patient who has [id number] opacities slightly more superiorly, see for example [...] to look for resolution versus persistence. Kimberly Velez MD IMG CT ORDERABLE S documented in this encounter Visit Diagnoses Diagnosis Status post autologous bone marrow transplant Bone marrow replaced by transplant Diffuse large B-cell lymphoma, unspecified body region Status post autologous bone marrow transplant Bone marrow replaced by transplant Diffuse large B-cell lymphoma, unspecified body region documented in this encounter Care Teams School Library Media Program Director Relationship Specialty Start Date End Date Belén Griffin MD [address] [place] [address] PCP - General Family Medicine 05/07/15 documented as of this encounter
--- OUTSIDE RECORDS SUMMARY | 2023-10-28 00:41 | XMS_ITS | Encounter Summary ---
Author Organization [facility] Address [facility] [place] [address] Care Team Providers Care Polysomnographic Technologist Name Role Phone Belén Griffin MD Primary Care Provider [phone] Encounter Details Date Type Department Care Team (Latest Contact Info) Description 10/19/2017 - 10/19/2017 11:59 PM EDT Hospital Encounter XRay at [address] [place] [address] Wild Owens MD [facility] HEMATOLOGY [place] [address] Research exam Discharge Disposition: Home Social History Tobacco Use [...] PM EDT Office Visit Dermatology at [facility] [address] [place] [address] Juan F Chappell MD [facility] DR RANDEE [place] [address] documented as of this encounter Procedures Procedure Name Priority Date/Time Associated Diagnosis Comments FILM LIBRARY RESEARCH COPY Routine 10/19/2017 12:00 AM EDT Research exam documented in this encounter Results * Film Library Research Copy (10/19/2017 12:00 AM EDT) Narrative [facility] - 04/04/2018 2:32 PM EST This exam is for storage only and is auto-finalizing. Wild Owens MD IMG FILM LIBRARY O RDERABLES [place], [place] documented in this encounter Visit Diagnoses Diagnosis Research exam Examination of participant in clinical trial documented in this encounter Care Teams Polysomnographic Technologist Relationship Specialty Start Date End Date Belén Griffin MD [address] [place] [address] [address] [place] [address] PCP - General Family Medicine 05/07/15 documented as of this encounter
--- OUTSIDE RECORDS SUMMARY | 2023-10-28 00:41 | XMS_ITS | Encounter Summary ---
Author Organization [facility] Address [facility] [place] [address] Care Team Providers Care Flying Squad Salesperson Name Role Phone Belén Griffin MD Primary Care Provider [phone] Reason for Referral * Diagnostic Test (Routine) - Closed Specialty Diagnoses / Procedures Referred By Perry cabrera Referred To Contact Radiology Diagnoses DLBCL (diffuse large B cell lymphoma) Procedures CT Chest w Contrast Kimberly Burnett APRN [facility] DR HEMATOLOGY [place] [address] [facility] [place] [address] Referral ID Status Reason Start Date Expiration Date V isits Requested Visits Authorized [id number] Closed Specialty Service Requested 12/24/2016 03/24/2017 1 1 Reason for Visit * Reason Comments Follow-up Encounter Details Date Type Department Care Team (Late st Contact Info) Description 07/01/2016 1:30 PM EDT Office Visit Hematology [place] [address] Kimberly Mondragon MD [facility] DR HEMATOLOGY [place] [address] Kimberly Burnett APRN [facility] [address] HEMATOLOGY [place] [address] DLBCL (diffuse large B cell lymphoma) Social History Tobacco Use Types Packs/Day Years [...] Sign Reading Time Taken Comments Blood Pressure 102/55 07/01/2016 1:28 PM EDT Pulse 95 07/01/2016 1:28 PM EDT Temperature 36.2 ??C (97.2 ??F) 07/01/2016 1:28 PM ED T Respiratory Rate 16 07/01/2016 1:28 PM EDT Oxygen Saturation 98% 07/01/2016 1:28 PM EDT Inhaled Oxygen Concentration - - Weight 64.8 kg (142 lb 12.8 oz) 07/01/2016 1:28 PM EDT Height 157 cm (5' 1.81) 07/01/2016 1:28 PM EDT Body Mass Index 26.28 07/01/2016 1:28 PM EDT documented in this encounter Progress Notes * Kimberly Burnett APRN - 07/01/2016 1:30 PM EDT Hematology/[place] [address] FOLLOW-UP PATIENT EVALUATION Patient Active Problem List [...] was not informative according to the Bassem catalogue maker, but the strong BCL2 expression in the absence of MUM1 suggests a germinal center origin via the Muris catalogue maker. Lymphoma TB discussion 10/01/14 Recommendations for salvage chemotherapy and autologous stem cell transplant. C#1 [facility] 10/09/14 With stem cell collection C#2 [facility] 11/04/14 PET scan negative! 11/25/14 ! 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 She is 18 months (01/02/2015) s/p an Autologous peripheral blood stem cell transplant. Here for a 3 month followup. No new health issues. She is working full-time, but is still dealing with fatigue. She is taking a daily nap for 2-3 hours, and is able to sleep well at night. Recently went to [place] and is planning on going to [place] next weekend. Keeping very busy. Works been going well. No B symptoms. She did have a long-lasting cough this winter, but finally resolved. No antibiotics needed. No palpable adenopathy. Appetite is great and weight is up!! Starting to get some walking in. Her bike has been repaired. Recently had a colo: negative. Had a mammo: negative. and pelvic exam. Ex- still in longterm, but she has gone to visit him [...] ??? [COMPLETED] iohexol (OMNIPAQUE) 350 mg/mL solution 17,500 mg 50 mL Oral Once PRN Yany Solorzano MD 17,500 mg at 07/01/16 0900 ??? [COMPLETED] iohexol (OMNIPAQUE) 350 mg/mL solution 24,850 mg 71 mL Intravenous Once PRN Kalie Solorzano MD 24,850 mg at 07/01/16 1118 ALLERGIES: Allergies Allergen Reactions ??? Levofloxacin Other [...] Sleep: No difficulty sleeping PHYSICAL EXAM: BP 102/55 (Patient Position: Sitting) Pulse 95 Temp 36.2 ??C (97.2 ??F) (Temporal) Resp 16 Ht 157 cm (5' 1.81) Wt 64.8 kg (142 lb 12.8 oz) SpO2 98% BMI 26.28 kg/m2 GENERAL: Myriam Vivas is healthy appearing and looks great!!! Her hair is Short and curly. She looks beautiful. Accompanied by [...] (non-fasting) Result Value Ref Range Glucose Lvl 85 65 - 199 mg/dL BUN 23 (H) 8 - 18 mg/dL Creatinine 1.05 0.70 - 1.20 mg/dL Sodium 140 135 - 145 mmol/L Potassium 4.9 3.5 - 5.0 mmol/L Chloride 98 98 - 107 mmol/L CO2 28 22 - 31 mmol/L Anion Gap 14 5 - 15 mmol/L Calcium 10.3 8.5 - 10.5 mg/dL Total Protein 7.1 6.1 - 8.0 gm/dL Albumin 4.5 3.2 - 5.2 gm/dL AST 24 0 - 30 unit/L ALT 27 0 - 30 unit/L Alk Phos 82 40 - 104 unit/L Total Bilirubin 0.9 0.2 - 1.3 mg/dL Bili, Direct 0.2 0.0 - 0.3 mg/dL Estimated GFR 53 (L) >=60 Lactate Dehydrogenase Result Value Ref Range LDH 187 110 - 220 unit/L Hemogram Result Value Ref Range WBC 4.0 4.0 - 9.5 x10(3)/mcL RBC 3.60 (L) 4.00 - 5.21 x10(6)/mcL Hemoglobin 11.7 11.7 - 15.5 gm/dL Hematocrit 33.9 (L) 35.7 - 45.8 % MCV 94.2 82.6 - 94.4 fL MCH 32.5 (H) 27.1 - 32.0 pg MCHC 34.5 31.7 - 35.0 gm/dL Platelets 171 145 - 357 x10(3)/mcL RDWSD 42.9 37.0 - 46.0 fL RDWCV 12.5 11.5 - 14.1 % MPV 8.6 7.6 - 12.9 fL nRBC % Auto 0.0 % nRBC Abs Auto 0.000 0.000 - 0.000 x10(3)/mcL Differential, Automated Result Value Ref Range Neutrophils % 59.8 % Neutr Abs (ANC) 2.42 1.70 - 6.10 x10(3)/mcL Lymphocytes % 21.7 % Lymphocytes Abs 0.9 0.9 - 3.2 x10(3)/mcL Monocytes % 14.3 % Monocyte Abs 0.6 0.3 - 0.9 x10(3)/mcL Eosinophils % 3.5 % Eosinophils Abs 0.1 0.0 - 0.4 x10(3)/mcL Basophils % 0.5 % Basophils Abs 0.0 0.0 - 0.1 x10(3)/mcL Immature Gran % 0.20 % [place] Gran Abs 0.01 0.00 - 0.04 x10(3)/mcL RADIOLOGY STUDIES: ?? CT of C/A/P on [...] nodes. ASSESSMENT: Myriam Vivas is a delightful 65 y.o. female with Primary Refractory DLBCL. She is 18 months s/p an Autologous pb stem cell transplant. ?? 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 Laboratory studies are stable. No s/s of recurrent disease. CT scan without overt evidence of relapse. Unlikely the 10mm left lower lobe opacity is disease, but we will f/u in [address] of chest to be sure it has not progressed. ?? ID - No focal s/s of infection. ?? Psychosocial - Depression and Anxiety are under better control and she still sees a therapist. Remains on Lexapro with Ativan 0.5mg TID prn. I am very impressed how she handled the results of her CT scan. She assured me she was not going to let the new finding on today's scan consume her- great job! ?? Vaccines - Completed 3 sets of vaccines. She will be due for boosters, 18 months post transplantbeing given today. - MMR #1 in 12/31 and MMR #2 in 02/2017. ?? Disposition ?? Vaccines at [facility] today (18 month post transplant vaccines). ?? Ongoing routine health maintenance, ie Check TSH annually, along with fasting glucose and cholesterol. Mammo, colo, pap smear/pelvic exam, etc.: These are all up to date!! ?? RTC in 3 months at [facility] ?? RTC in 6 months to [facility] for 24months MMR And a repeat chest CT at that time. Kimberly Burnett, MSN, REGISTERED NURSE [employer] Nurse Practitioner Section of Hematology/Oncology [facility] Office phone: CC: Belén Griffin MD documented in this encounter Plan of Treatment Upcoming Encounters Date Type Department Care Team (Late st Contact Info) Description 12/07/2023 12:00 PM EDT Office Visit Dermatology at [facility] [address] [place] [address] Juan F Chappell MD [facility] DR RANDEE [place] [address] documented as of this encounter Results * CT Chest w [...] No new or progressivefindings. Kimberly Burnett APRN [facility] CT ORDERABLE S documented in this encounter Visit Diagnoses Diagnosis DLBCL (diffuse large B cell lymphoma) Other malignant lymphomas, unspecified site, extranodal and solid organ sites DLBCL (diffuse large B cell lymphoma) Other malignant lymphomas, unspecified site, extranodal and solid organ sites documented in this encounter Care Teams Flying Squad Salesperson Relationship Specialty Start Date End Date Belén Griffin MD [address] [place] [address] PCP - General Family Medicine 05/07/15 documented as of this encounter
--- OUTSIDE RECORDS SUMMARY | 2023-10-28 00:41 | XMS_ITS | Encounter Summary ---
Author Organization [facility] Address [facility] [address] Care Team Providers Care Mop Handle Assembler Name Role Phone Belén Griffin MD Primary Care Provider [phone] Reason for Visit * Reason Onset Date Comments Labs Only 12/29/2015 Lab Tracking Encounter Details Date Type Department Care Team (Late st Contact Info) Description 12/29/2015 Telephone Hematology Oncology at [address] [address] James Davila, RN Labs Only (Lab Tracking) Social History [...] encounter Miscellaneous Notes * Telephone Encounter - James Davila RN - 12/29/2015 11:32 AM EST LAB TRACKING Myriam Vivas Diagnosis: Lymphoma LABS ORDERED: [address] FU with Dr Mondragon Assessment: Pt seen in [place] 12/25/15, see note. Plan: RTC with labs in 3 months, see [facility] [place], also to be seen at [facility] in 6 months for labs and vaccines (18 month post-transplant vaccines). DATE WBC HGB/HCT PLTS ANC MEDS/PLAN LOCATION 12/25/15 3.9 11.0/32.3 153k 2.55 F/u appt with EMB in 3 months 3 months at [facility] 10/01 4.3 10.3/29.9 173k 2.97 Next appt in 3 months 3 months at [facility] 08/27 3.1 10.7/29.5 142k 1,68 Follow up with EMB at [facility] on 10/01. Post transplant vaccines Lab once a month Next due at [facility] 10/0107/29/15 3.1 10.4/29.3 144K 2.04 Extra week Lab Tracking, met with LIDIA at [facility] today Labs were drawnat [facility] 07/21/15 2.99 10.7/30.2 168k 1.88 Meet with Giancarlo at [facility] 07/28 Labs every other Félix @ [facility] 07/07/15 3.24 10.4/30.2 185k 2.13 Labs every other week [facility] 06/30/15 3.82 10.3/29.1 180 2.53 CBC q tuesday [facility] 06/23/15 4.89 10.3/29.6 181k 3.70 Antibiotics per dentist Cbc every tuesday06/16/15 8.44 10.4/29.9 118K 6.50 CBC every Tuesday at [facility] 06/09/15 1.29 10.5 160k 0.43 Pt will have neulasta 6 mg today Labs again next week. 05/26/15 2.74 1028.7 150K 1.81 No Change Labs every other week next due 06/09/15 05/12/15 2.16 9.5/27.7 177K 1.35 No change Labs every other week next due 05/2505/05/15 4.24 9.2/26.7 185k 3.18 Continue as planned Labs at [facility] 05/1104/28/15 4.56 9.3/27.6 224k 3.61 augmentin d/c'd thurs. 04/23 [facility] 05/0404/21/15 6.26 9.2/26.4 137k 5.20 Continued as planned [facility] 04/2704/14/15 6.03 9.7/27.6 129k 4.98 continued as planned nv 04/20 04/07 38.09 0.7/27.8 175 32.38 Weaning off Lexapro. Continues off Acyclovir and Bactrim [facility] 2.03/31/15 0.98 8.7/24.2 126k .09 Pt to have bone marrow biopsy tue and pet scan see Birgit [facility] 04/0703/24/15 5.36 10.2/28.1 123 4.22 [facility] 17.34 9.6/27.2 89 8.84 [facility] documented in this encounter Plan of Treatment Upcoming Encounters Date Type Department Care Team (Late st Contact Info) Description 12/07/2023 12:00 PM EDT Office Visit Dermatology at [place] [address] [place] [address] Juan F Chappell MD [facility] DR [place] [address] documented as of this encounter Visit Diagnoses Not on filedocumented in this encounter Care Teams Mop Handle Assembler Relationship Specialty Start Date End Date Belén Griffin MD [address] [place] [address] PCP - General Family Medicine 05/07/15 documented as of this encounter
--- OUTSIDE RECORDS SUMMARY | 2023-10-28 00:41 | XMS_ITS | Encounter Summary ---
[place] [address] Care Team Providers Care Chiropractic Neurologist Name Role Phone Belén Griffin MD Primary Care Provider [phone] Reason for Visit * Reason Onset Date Comments Questions 05/17/2016 Encounter Details Date Type Department Care Team (Late st Contact Info) Description 05/17/2016 Telephone [place]ematology [place] [phone] Dafne Sandy, RN Questions Social History Tobacco Use Types Packs/Day Years [...] encounter Miscellaneous Notes * Telephone Encounter - Dafne Sandy RN - 05/17/2016 2:39 PM EDT RN received the following message from clinical nursing secretary: Myriam called, asking if she should get the shingles vaccine? She had one before she had her transplant, so she's not sure if she should get now? Discussed patient with Dr Mondragon and she states patient should love have a live vaccine such as shingles for approx 5 years with the dx of lymphoma. Left message for patient with above information. Requested clarification of vaccination she received prior to her transplant. Awaiting a return call. documented in this encounter Plan of Treatment Upcoming Encounters Date Type Department Care Team (Late st Contact Info) Description 12/07/2023 12:00 PM EDT Office Visit Dermatology at [facility] [address] [place] [address] Juan F Chappell MD [facility] DR RANDEE [place] [address] documented as of this encounter Visit Diagnoses Not on filedocumented in this encounter Care Teams Chiropractic Neurologist Relationship Specialty Start Date End Date Belén Griffin MD [address] [place] [address] PCP - General Family Medicine 05/07/15 documented as of this encounter
--- OUTSIDE RECORDS SUMMARY | 2023-10-28 00:41 | XMS_ITS | Encounter Summary ---
Author Organization [facility] [place] [address] Care Team Providers Care Wash Tank Tender Name Role Phone Belén Griffin MD Primary Care Provider [phone] Reason for Referral * Diagnostic Test (Routine) - Closed Specialty Diagnoses / Procedures Referred By Perry cabrera Referred To Contact Radiology Diagnoses Status post autologous bone marrow transplant Lymphoma in remission Procedures CT Chest Abdomen Pelvis w Contrast (Generic) Kimberly Mondragon MD [facility] HEMAT[place] [address] [facility] [place] [address] Referral ID Status Reason Start Date Expiration Date V isits Requested Visits Authorized [id number] Closed Specialty Service Requested 06/24/2016 09/22/2016 1 1 Reason for Visit * Diagnostic Test (Routine) - Closed Specialty Diagnoses / Procedures Referred By Perry cabrera Referred To Contact Radiology Diagnoses Status post autologous bone marrow transplant Lymphoma in remission Procedures CT Chest Abdomen Pelvis w Contrast (Generic) Kimberly Mondragon MD [facility] HEMATOLOGY [place] [address] [facility] [place] [address] Referral ID Status Reason Start Date Expiration Date V isits Requested Visits Authorized [id number] Closed Specialty Service Requested 06/24/2016 09/22/2016 1 1 Encounter Details Date Type Department Care Team (Late st Contact Info) Description 07/01/2016 8:56 AM EDT - 07/01/2016 9:05 AM EDT Hospital Encounter CT Scan at [facility] [place] [address] Kimberly Mondragon MD [facility] DR HEMATOLOGY [place] [address] Status post autologous bone marrow transplant; Lymphoma in remission Discharge Disposition: Home Social History Tobacco Use [...] Visit Dermatology at [address] [place] [address] Juan F Chappell MD [facility] [place] [address] documented as of this encounter Procedures Procedure Name Priority Date/Time Associated Diagnosis Comments CT CHEST ABDOMEN PELVIS W CONTRAST (GENERIC) Routine 07/01/2016 11:17 AM EDT Status post autologous bone marrow transplant Lymphoma in remission documented in this encounter Results * CT Chest Abdomen [...] structures: No suspicious lesions. Procedure Note Marci Grvoer MD - 07/01/2016 EXAMINATION: CT CHEST ABDOMEN [...] Normal. Lymph nodes/Mediastinum/Jazzy: Stable subcentimeter left axillary lymphnodes. None pathologically [...] Rate Site iohexol (OMNIPAQUE) 350 mg/mL solution 17,500 mg 17,500 mg (50 mL), Oral, ONCE PRN, 1 dose, Starting on Cece 07/01/16 at 1057, Until Cece 07/01/16 at 0900, Per Protocol, Warning Vesicant/Irritant Medication , Routine Given 07/01/2016 9:00 AM EDT 17,500 mg iohexol (OMNIPAQUE) 350 mg/mL solution 24,850 mg 24,850 mg (71 mL), Intravenous, ONCE PRN, 1 dose, Starting on Cece 07/01/16 at 1057, Until Cece 07/01/16 at 1118, Per Protocol, Warning Vesicant/Irritant Medication , Routine Given 07/01/2016 11:18 AM EDT 24,850 mg documented in this encounter Care Teams Wash Tank Tender Relationship Specialty Start Date End Date Belén Griffin MD [address] [facility] [address] [place] [address] PCP - General Family Medicine 05/07/15 documented as of this encounter
--- OUTSIDE RECORDS SUMMARY | 2023-10-28 00:41 | XMS_ITS | Encounter Summary ---
Author Organization [facility] Address [facility] [place] [address] Care Team Providers Care Cooler Tender Name Role Phone eBlén Griffin MD Primary Care Provider [phone] Encounter Details Date Type Department Care Team (Late st Contact Info) Description 12/26/2019 11:00 AM EST Office Visit Hematology/Oncology at [address] [phone] Kimberly Mondragon MD [facility] DR HEMATOLOGY [place] [address] Gabi Easley, [facility] DR HEMATOLOGY [place] [address] Diffuse large B-cell lymphoma, unspecified body region; Status post autologous bone marrow transplant Social History Tobacco Use Types Packs/Day Years [...] Mass Index 27.42 12/26/2019 11:02 AM EST documented in this encounter Progress Notes * Kimberly Mondragon MD - 12/26/2019 11:00 AM EST Hematology/[place] [address] FOLLOW-UP PATIENT EVALUATION Patient Active Problem List [...] was not informative according to the Bassem set making machine operator, but the strong BCL2 expression in the absence of MUM1 suggests a germinal center origin via the Muris set making machine operator. Lymphoma TB discussion 10/01/14 Recommendations for salvage chemotherapy and autologous stem cell transplant. C#1 [facility] 10/09/14 With stem cell collection C#2 [facility] 11/04/14 PET scan negative! 11/25/14 ! ADMIT on 12/17/14 to [facility] for Autologous Peripheral BlN/ood Stem Cell Transplant [...] Negative ?? CT scan in December: Negative Patient prefers to be called: Myriam Spouse/Partner: Carlos ( as of 2019) Other support: INTERIM HISTORY OF PRESENT ILLNESS: Myriam Vivas is a 69 y.o. female with Primary Refractory DLBCL. She is 5 years (01/02/2015) s/p anAutologous peripheral blood stem cell transplant. Carlos has retired and bought a house in [place]. She retired in Jan 2019. 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 She and Carlos have broken up but are still friends. She is managing well. Her ex- will be out of longterm within the year. She has been healthy - no recent infections. No B symptoms. No new adenopathy. She has no pulmonary or infectious symptoms. No fevers. No B symptoms. Myriam is appropriately sheltering in and following goldman virus epidemic precautions. Her primary care and dental is UTD. Here for her final Hematology follow up! MEDICATIONS: Current Outpatient Medications on File Prior to Visit Medication Sig Dispense Refill ??? magnesium 250 mg Tablet Take 1 tablet by mouth daily. ??? LORazepam (Ativan) 0.5 mg Tablet Take 0.25 mg by mouth every 6 hours as needed for Anxiety. ??? b complex vitamins Tablet Take 1 tablet by mouth daily. ??? cholecalciferol, Vitamin D3, 400 unit Tablet Take 400 Units by mouth daily. ??? escitalopram (LEXAPRO) 10 mg Tablet Take 10 mg by mouth daily. ??? diphenhydrAMINE-acetaminophen (TYLENOL PM) 25-500 mg Tablet Take by mouth every evening. Reported on 03/24/2016 ??? [DISCONTINUED] calcium carb/mag carb/folic ac ([id number]-[id number] ACID ORAL) Take by mouth. ??? acetaminophen (TYLENOL) 500 mg Tablet Take [...] better control Sleep: No difficulty sleeping PHYSICAL EXAM BP 130/73 (Patient Position: Sitting) Pulse 80 Temp 35.8 ??C (96.4 ??F) (Temporal) Resp 16 Ht 157 cm (5' 1.81) Wt 67.6 kg (149 lb) SpO2 100% BMI 27.42 kg/m?? Body surface area is 1.72 meters squared. GENERAL: Myriam Vivas appears well and is in no acute distress. ENT: Oral pharynx clear. EYES: SWATHI NECK: Supple without adenopathy. AXILLARY: no adenopathy OTHER LYMPH: no adenopathy CARDIAC: Regular rate and rhythm without S3,S4 or murmurs. LUNGS: Clear to auscultation./percussion ABDOMEN: Soft and non-tender without hepatosplenomegaly or masses. EXTREMITIES: No cyanosis, clubbing, edema or calf tenderness. SKIN: No bruises or petechiae. NEUROLOGICAL: Alert and oriented to person, place and time. MUSCULOSKELETAL: No spinal or chest wall tenderness. LABORATORY STUDIES: No results found for this or any previous visit (from the past 72 hour(s)). Labs dated 12/17/2019 White count 5.1, hemoglobin is 11.9, platelets are 180, ANC is 3.0. Creatinineis 1.13, LFTs are normal. LDH is normal at 203. RADIOLOGY STUDIES: 10/27/17 CT Chest EXAMINATION: CT [...] ?? ASSESSMENT: Myriam Vivas is a delightful 69 y.o. female with Primary Refractory DLBCL s/p [...] and further imaging follow-up is not necessary. LUMA to date She has completed 5 years of surveillance post transplant and has previously had a survivorship appointment with SHARONA Flowers. ?? Psychosocial - Depression and Anxiety are under good control and she still sees a therapist. Remains on Lexapro no longer requiring Ativan 0.5mg BID prn. Sleeping better. Using essential oils to help w/ anxiety. Sleeping well. With tylenol PM. ?? Cardiac- echocardiogram dated 05/25/2018 in follow-up to her prior chemotherapy with ejection fraction of 50 to 55%. No further follow-up necessary. ?? No further f/u needed - she has completed 5 years of surveillance post treatment! CC: Belén Griffin MD documented in this encounter Plan of Treatment Upcoming Encounters Date Type Department Care Team (Late st Contact Info) Description 12/07/2023 12:00 PM EDT Office Visit Dermatology at [facility] [address] [place] [address] Juan F Chappell MD [facility] DR RANDEE [place] [address] documented as of this encounter Procedures Procedure Name Priority Date/Time Associated Diagnosis Comments CBC (WITH DIFF) Routine 12/17/2019 documented in this encounter Results * CBC (with Diff) (12/17/2019) White Blood Cell 5.1 Hemoglobin 11.9 Hematocrit 35.0 Platelet 180 Neutrophil Absolute (ANC) - Automated 3.05 Creatinine 1.13 Blood Urea Nitrogen 37 Lactate Dehydrogenase 203 Blood specimen (specimen) 12/17/2019 Historical Provider HEMATOLOGY ORDERA BLES documented in this encounter Visit Diagnoses Diagnosis Diffuse large B-cell lymphoma, unspecified body region Status post autologous bone marrow transplant Bone marrow replaced by transplant documented in this encounter Care Teams Cooler Tender Relationship Specialty Start Date End Date Belén Griffin MD [address] [place] [address] PCP - General Family Medicine 05/07/15 documented as of this encounter
--- OUTSIDE RECORDS SUMMARY | 2023-10-28 00:41 | XMS_ITS | Encounter Summary ---
Author Organization [facility] Address [facility] [address] Care Team Providers Care Assistant Teaching Professor Name Role Phone Belén Griffin MD Primary Care Provider [phone] Encounter Details Date Type Department Care Team (Late st Contact Info) Description 01/02/2016 Telephone Hematology [place] [phone] Dafne Sandy RN Social History Tobacco Use Types Packs/Day Years [...] Miscellaneous Notes * Telephone Encounter - Dafne Sandy, RN - 01/02/2016 9:47 AM EST Received additional disability paperwork from Sushma. Paperwork forwarded to Marilu Daniels disability paperwork coordinator documented in this encounter Plan of Treatment Upcoming Encounters Date Type Department Care Team (Late st Contact Info) Description 12/07/2023 12:00 PM EDT Office Visit Dermatology at [address] [place] [address] Juan F Chappell MD [facility] DR RANDEE [place] [address] documented as of this encounter Visit Diagnoses Not on filedocumented in this encounter Care Teams Assistant Teaching Professor Relationship Specialty Start Date End Date Belén Griffin MD [address] [place] [address] [address] [place] [address] PCP - General Family Medicine 05/07/15 documented as of this encounter
--- OUTSIDE RECORDS SUMMARY | 2023-10-28 00:41 | XMS_ITS | Encounter Summary ---
Author Organization [facility] Address [facility] [place] [address] Care Team Providers Care Pulp Operator Name Role Phone Belén Griffin MD Primary Care Provider [phone] Encounter Details Date Type Department Care Team (Late st Contact Info) Description 11/29/2018 2:30 PM EDT Office Visit Hematology/Oncology at [address] [address] Kimberly Mondragon MD [facility] [address] [place] [address] Status post autologous bone marrow transplant; Diffuse [...] Sign Reading Time Taken Comments Blood Pressure 105/66 11/29/2018 2:13 PM EDT Pulse 88 11/29/2018 2:13 PM EDT Temperature 36.5 ??C (97.7 ??F) 11/29/2018 2:13 PM ED T Respiratory Rate 16 11/29/2018 2:13 PM EDT Oxygen Saturation 99% 11/29/2018 2:13 PM EDT Inhaled Oxygen Concentration - - Weight 64.4 kg (142 lb) 11/29/2018 2:13 PM EDT Height 157 cm (5' 1.81) 11/29/2018 2:13 PM EDT Body Mass Index 26.13 11/29/2018 2:13 PM EDT documented in this encounter Progress Notes * Kimberly Mondragon MD - 11/29/2018 2:30 PM EDT Hematology/[place] [address] FOLLOW-UP PATIENT EVALUATION Patient Active Problem List [...] was not informative according to the Bassem shell machine operator, but the strong BCL2 expression in the absence of MUM1 suggests a germinal center origin via the Muris shell machine operator. Lymphoma TB discussion 10/01/14 Recommendations for salvage chemotherapy and autologous stem cell transplant. C#1 RDHAP 10/09/14 With stem cell collection C#2 RDHAP 11/04/14 PET scan negative! 11/25/14 ! [place] 12[place]17/14 [place] [facility] [place]ood Stem Cell Transplant [...] with Primary Refractory DLBCL. She is Almost 4 years (01/02/2015) s/p an Autologous peripheral blood stem cell transplant. She is working full-time. Carlos has retired and bought a house in [place]. Planning to long-term in Jan 2019 . Going to [facility]. Her will [place] of [place] [facility] within the year. She has been healthy - no recent infections. No B symptoms. No new adenopathy. She has no pulmonary or infectious symptoms. No fevers. Her primary care and dental is [facility]. MEDICATIONS: Current Outpatient Medications on File Prior to Visit Medication Sig Dispense Refill ??? calcium carb/mag carb/folic ac (MKEORQDRX-[id number]-[id number] ACID ORAL) Take by mouth. ??? b [...] every evening. Reported on 03/24/2016 ??? [DISCONTINUED] LORazepam (ATIVAN) 0.5 mg Tablet Take 1 tablet by mouth every 6 hours as needed for Anxiety. (Patient not taking: Reported on 11/29/2018) 50 tablet 1 No current facility-administered medications on file prior [...] Sleep: No difficulty sleeping PHYSICAL EXAM: BP 105/66 (Patient Position: Sitting) Pulse 88 Temp 36.5 ??C (97.7 ??F) (Oral) Resp 16 Ht 157 cm (5' 1.81) Wt 64.4 kg (142 lb) SpO2 99% BMI 26.13 kg/m?? GENERAL: Myriam Vivas is healthy appearing and [...] Recent Results (from the past 72 hour(s)) CBC (with Diff) Result Value Ref Range WBC 5.33 Hemoglobin 11.9 Hematocrit 35.4 Platelets 207 Neutr Abs (ANC) 3.53 LDH 197 ANC 0.93 LFT's normal RADIOLOGY STUDIES: 10/27/17 CT Chest EXAMINATION: CT [...] needed to be followed for different reasons. Finally,she had a nuclear scan in October 2017 and further follow-up is not necessary. ?? Psychosocial - [...] 6 months with cbc, cmp, ldh in [facility]. She has completed her survivorship appointment with [...] 12:00 PM EDT Office Visit Dermatology at [facility] [address] [place] [address] Juan F Chappell MD [facility] [place] [address] documented as of this encounter Procedures Procedure Name Priority Date/Time Associated Diagnosis Comments CBC (WITH DIFF) Routine 11/28/2018 documented in this encounter Results * CBC (with Diff) (11/28/2018) White Blood Cell 5.33 Hemoglobin 11.9 Hematocrit 35.4 Platelet 207 Neutrophil Absolute (ANC) - Automated 3.53 Lactate Dehydrogenase 197 Blood specimen (specimen) 11/28/2018 Historical Provider HEMATOLOGY ORDERA BLES documented in this encounter Visit Diagnoses Diagnosis Status post autologous bone marrow transplant Bone marrow replaced by transplant Diffuse large B-cell lymphoma, unspecified body region documented in this encounter Care Teams Pulp Operator Relationship Specialty Start Date End Date Belén Griffin MD [address] [place] [address] PCP - General Family Medicine 05/07/15 documented as of this encounter
--- OUTSIDE RECORDS SUMMARY | 2023-10-28 00:42 | XMS_ITS | Encounter Summary ---
Author Organization [facility] Address [facility] [place] [address] Care Team Providers Care Supervisor Vacuum Metalizing Name Role Phone Belén Griffin MD Primary Care Provider [phone] Encounter Details Date Type Department Care Team (Latest Contact Info) Description 10/02/2015 10:16 AM EDT - 10/02/2015 11:59 PM EDT Hospital Encounter Hematology [place] [phone] Lymphoma; Lymphoma, unspecified body region, unspecified lymphoma type [...] for Anxiety. 50 tablet 1 06/25/2015 11/29/2018 escitalopram oxalate (LEXAPRO) 10 mg Tablet Take 1 tablet by mouth daily. 30 tablet 12 01/03/2015 12/25/2015 senna (SENOKOT) 8.6 mg Tablet Take 1 tablet by mouth daily. 12/25/2015 documented as of this encounter Progress Notes * Anne Welch RN - 10/02/2015 1:17 PM EDT Patient Name: Myriam Vivas Patient Age: 64 y.o. Birthdate: 1950 Admit date: 10/02/2015 Attending Physician: No att. providers found Administered Immunization injections as ordered; pt tolerated well. documented in this encounter Plan of Treatment Upcoming Encounters Date Type Department Care Team (Late st Contact Info) Description 12/07/2023 12:00 PM EDT Office Visit Dermatology at [facility] [address] [place] [address] Juan F Chappell MD [facility] DR [place] [address] documented as of this encounter Procedures Procedure Name Priority Date/Time Associated Diagnosis Comments HEMOGRAM STAT 10/02/2015 11:20 AM EDT Lymphoma DIFFERENTIAL, AUTOMATED STAT 10/02/2015 11:20 AM EDT Lymphoma CBC (WITH DIFF) STAT 10/02/2015 11:20 AM EDT Lymphoma LACTATE DEHYDROGENASE STAT 10/02/2015 11:20 AM EDT Lymphoma COMPREHENSIVE METABOLIC PANEL STAT 10/02/2015 11:20 AM EDT Lymphoma documented in this encounter Results * (ABNORMAL) Differential, Automated (10/02/2015 11:20 AM EDT) Neutrophil % 68.7 % [facility] Neutrophil Absolute 2.97 1.50 - 6.30 x10(3)/[facility] Lymph % 8.8 % [facility] Lymphocytes Abs 0.4(L) 1.0 - 3.6 x10(3)/[facility] Monocyte % 16.2 % [facility] Monocyte Abs 0.7 0.2 - 1.0 x10(3)/[facility] Eos % 5.6 % [facility] Eosinophils Abs 0.2 0.0 - 0.5 x10(3)/[facility] Basophil % 0.5 % [facility] Baso Absolute 0.0 0.0 - 0.2 x10(3)/[facility] Immature Gran % 0.20 % [facility] Comment: Immature granulocytes(IG's)percentage and absolute count will include metamyelocytes, myelocytes, and promyelocytes. Blood smears from CBCs yielding IG's will be scanned manually for concordance. If this scan disagrees with the automated IG or if promyelocytes are noted, a manual differential will be performed. Immature Gran Absolute 0.01 0.00 - 0.05 x10(3)/[facility] Blood specimen (specimen) 10/02/2015 11:20 AM EDT 10/02/2015 11:27 AM EDT Narrative Resulting Agency Comment Spec In Lab Kimberly Mondragon MD HEMATOLOGY ORDER AYO [facility] [place] [address] * (ABNORMAL) Hemogram (10/02/2015 11:20 AM EDT) White Blood Cell 4.3 4.0 - 10.0 x10(3)/[facility] Red Blood Cell 3.10(L) 3.93 - 5.22 x10(6)/ L [facility] Hemoglobin 10.3(L) 11.2 - 15.7 gm/dL [facility] Hematocrit 29.9(L) 34.0 - 45.0 % [facility] Mean Cell Volume 96.5(H) 79.0 - 94.0 fL [facility] Mean Cell Hemoglobin 33.2(H) 26.6 - 32.2 pg [facility] Mean Cell Hemoglobin Concentration 34.4 32.0 - 36.5 gm/dL [facility] Platelet 173 145 - 370 x10(3)/[facility] RDW Standard Deviation 42.4 35.0 - 46.0 fL [facility] RDW coefficient of variation 12.2 10.9 - 14.4 % [facility] Mean Platelet Volume 8.5(L) 9.0 - 12.0 fL [facility] NRBC% auto 0.0 % [facility] NRBC Absolute 0.000 0.000 - 0.012 x10(3)/[facility] Blood specimen (specimen) 10/02/2015 11:20 AM EDT 10/02/2015 11:27 AM EDT Narrative Resulting Agency Comment Spec In Lab Kimberly Mondragon MD HEMATOLOGY ORDER AYO [facility] [place] [address] * Lactate Dehydrogenase (10/02/2015 11:20 AM EDT) Lactate Dehydrogenase 175 110 - 220 unit/L [facility] Blood specimen (specimen) 10/02/2015 11:20 AM EDT 10/02/2015 11:27 AM EDT Narrative Resulting Agency Comment Spec In Lab Kimberly Mondragon MD CHEMISTRY ORDERA LEANNA [facility] [place] [address] * (ABNORMAL) Comprehensive metabolic panel (non-fasting) (10/02/2015 11:20 AM EDT) Glucose 96 65 - 199 mg/dL [facility] Comment:Diabetes: >=200 mg/d L plus symptoms Blood Urea Nitrogen 22(H) 8 - 18 mg/dL [facility] Creatinine 0.90 0.70 - 1.20 mg/dL [facility] Comment: Please note that the pediatric reference intervals supplied above were [place] [facility] Results from pediatric patients should be interpreted in conjunction to the patient's age, height and muscle mass. Sodium 142 135 - 145 mmol/L [facility] Potassium 4.1 3.5 - 5.0 mmol/L [facility] Comment: Please note: ??Patients with WBC >100,000 may have falsely elevated Potassium levels. ??For accurate Potassium quantification in these patients send serum separator tube (gold top) for subsequent determinations. ??Contact the Clinical Chemistry Laboratory if there are any questions. Chloride 102 98 - 107 mmol/L [facility] Carbon Dioxide 27 22 - 31 mmol/L [facility] Anion Gap 13 5 - 15 mmol/L [facility] Calcium 9.7 8.5 - 10.5 mg/dL [facility] Protein, Total 6.8 6.1 - 8.0 gm/dL [facility] Albumin 4.3 3.2 - 5.2 gm/dL [facility] Aspartate Aminotransferase 32(H) 0 - 30 unit/L [facility] Alanine Aminotransferase 55(H) 0 - 30 unit/L [facility] Alkaline Phosphatase 129(H) 40 - 104 unit/L [facility] Bilirubin, Total 0.7 0.2 - 1.3 mg/dL [facility] Bilirubin, Direct 0.2 0.0 - 0.3 mg/dL [facility] Est Glomerular Filtration Rate >60 >=60 [facility] Comment: This estimated GFR (eGFR) [...] the following links into your internet browser. [email or web address] Blood specimen (specimen) 10/02/2015 11:20 AM EDT 10/02/2015 11:27 AM EDT Narrative Resulting Agency Comment Spec In Lab Kimberly Mondragon MD CHEMISTRY ORDERA BLES [facility] [place] [id number] documented in this encounter Visit Diagnoses Diagnosis Lymphoma, unspecified body region, unspecified lymphoma type documented in this encounter Care Teams Supervisor Vacuum Metalizing Relationship Specialty Start Date End Date Belén Griffin MD [address] [place] [address] PCP - General Family Medicine 05/07/15 documented as of this encounter
--- OUTSIDE RECORDS SUMMARY | 2023-10-28 00:42 | XMS_ITS | Encounter Summary ---
Author Organization [facility] Address [facility] [place] [address] Care Team Providers Care Telephone Diaphragm Assembler Name Role Phone Belén Griffin MD Primary Care Provider [phone] Reason for Visit * Reason Onset Date Comments Labs Only 10/02/2015 Encounter Details Date Type Department Care Team (Late st Contact Info) Description 10/02/2015 Telephone Hematology Oncology at [address] [address] Dana Sanchez I, RN Labs Only Social History Tobacco Use Types Packs/Day Years [...] encounter Miscellaneous Notes * Telephone Encounter - Dana Sanchez RN - 10/02/2015 12:09 PM EDT LAB TRACKING Myriam Vivas Diagnosis: Lymphoma LABS ORDERED: [address] FU [address] Mondragon at [facility] Assessment: Labs reviewed by Dr. Mondragon . Plan: DATE WBC HGB/HCT PLTS ANC MEDS/PLAN LOCATION 10/01 4.3 10.3/29.9 [address] 2[address] [facility] 08/27 3.1 10.7/29.5 142k 1,68 Follow up with EMB at [facility] on 10/01. Post transplant vaccines Lab once a month Next due at [facility] 10/0107/29/15 3.1 10.4/29.3 144K 2.04 Extra week Lab Tracking, met with LIDIA at [facility] today Labs were drawnat [facility] 07/21/15 2.99 10.7/30.2 168k 1.88 [address] Giancarlo at [facility] 07/28 Labs every other Félix @ [facility] 07/07/15 3.24 10.4/30.2 185k 2.13 Labs every other week [facility] 06/30/15 3.82 10.29.1 180 2.53 CBC q tuesday [facility] 06/23/15 4.89 10.3/29.6 181k 3.70 Antibiotics per dentist Cbc every tuesday06/16/15 8.44 10.4/29.9 118K 6.50 CBC every Tuesday at [facility] 06/09/15 1.29 10.5 160k 0.43 Pt will have neulasta 6 mg today Labs again next week. 05/26/15 2.74 10.7 150K 1.81 No Change Labs every other week next due 06/09/15 05/12/15 2.16 9.5/27.7 177K 1.35 No change Labs every other week next due 05/2505/05/15 4.24 9.2/26.7 185k 3.18 Continue as planned Labs at [facility] 05/1104/28/15 4.56 9.3/27.6 224k 3.61 augmentin d/c'd thurs. 04/23 [facility] 05/0404/21/15 6.26 9.2/26.4 137k 5.20 Continued as planned [facility] 04/2704/14/15 6.03 9.7/27.6 129k 4.98 continued as planned [facility] 04/20 04/07 38.09 0.7/27.8 175 32.38 Weaning off Lexapro. Continues off Acyclovir and Bactrim [facility] 2.29 2/15/16 0.98 8.7/24.2 126k .09 Pt to have bone marrow biopsy tue and pet scan see Birgit [facility] 04/0716 5.36 10.2/28.1 123 4.22 [facility] 17.34 9.6/27.2 89 8.84 [facility] documented in this encounter Plan of Treatment Upcoming Encounters Date Type Department Care Team (Late st Contact Info) Description 12/07/2023 12:00 PM EDT Office Visit Dermatology at [facility] [address] [place] [address] [address] [facility] [address] [place] [address] documented as of this encounter Visit Diagnoses Not on filedocumented in this encounter Care Teams Telephone Diaphragm Assembler Relationship Specialty Start Date End Date Belén Griffin MD [address] [place] [address] PCP - General Family Medicine 05/07/15 documented as of this encounter
--- OUTSIDE RECORDS SUMMARY | 2023-10-28 00:42 | XMS_ITS | Encounter Summary ---
[place] [address] Care Team Providers Care Bulk Plant Operator Name Role Phone Belén Griffin MD Primary Care Provider [phone] Reason for Visit * Reason Onset Date Comments Questions 11/25/2015 Encounter Details Date Type Department Care Team (Late st Contact Info) Description 11/25/2015 Telephone Hematology [place] [phone] Dafne Sandy, RN Questions Social History Tobacco [...] Telephone Encounter - Dafne Sandy RN - 11/25/2015 3:53 PM EDT RN received the following message from clinical secretary administrative assistant: She called, saying that Sushma sent us paperwork to complete. ??Did we get it? [phone] Contacted patient and she is aware paperwork has been forwarded to appropriate person. She is asking how long it takes to complete. Patient is aware that this office has 30 days to complete, but typically it is done within a couple of weeks when possible. Patient states she will call at the end of the month to be sure paperwork has been sent. RN will continue to follow documented in this encounter Plan of Treatment Upcoming Encounters Date Type Department Care Team (Late st Contact Info) Description 12/07/2023 12:00 PM EDT Office Visit Dermatology at [facility] [address] [place] [address] Juan F Chappell MD [facility] DR RANDEE [place] [address] documented as of this encounter Visit Diagnoses Not on filedocumented in this encounter Care Teams Bulk Plant Operator Relationship Specialty Start Date End Date Belén Griffin MD [address] [place] [address] PCP - General Family Medicine 05/07/15 documented as of this encounter
--- OUTSIDE RECORDS SUMMARY | 2023-10-28 00:42 | XMS_ITS | Encounter Summary ---
Author Organization [facility] Address [facility] [place] [address] Care Team Providers Care Residential Concierge Name Role Phone Belén Griffin MD Primary Care Provider [phone] Reason for Visit * Reason Comments Follow-up Encounter Details Date Type Department Care Team (Late st Contact Info) Description 12/25/2015 1:00 PM EST Office Visit Hematology [place] [address] Kimberly Mondragon MD [facility] [address] [place] [address] Kimberly Burnett APRN [facility] [address] [place] [address] Diffuse large B-cell lymphoma, unspecified body region [...] Sign Reading Time Taken Comments Blood Pressure 107/56 12/25/2015 1:06 PM EST Pulse 92 12/25/2015 1:06 PM EST Temperature 36.7 ??C (98.1 ??F) 12/25/2015 1:06 PM ES T Respiratory Rate 18 12/25/2015 1:06 PM EST Oxygen Saturation 100% 12/25/2015 1:06 PM EST Inhaled Oxygen Concentration - - Weight 58.2 kg (128 lb 3.2 oz) 12/25/2015 1:10 P M EST Height - - Body Mass Index 23.44 10/02/2015 11:48 AM EDT documented in this encounter Progress Notes * Kimberly Burnett, CENTRAL STATION OPERATOR - 12/25/2015 1:00 PM EST Hematology/[place] [address] FOLLOW-UP PATIENT EVALUATION Patient Active Problem List [...] was not informative according to the Bas[place] gamb cutter, but the strong BCL2 expression in the absence of MUM1 suggests a germinal center origin via the Muris gamb cutter. Lymphoma TB discussion 10/01/14 Recommendations for salvage chemotherapy and autologous stem cell transplant. C#1 RDHAP 10/09/14 With stem cell collection C#2 RDHAP 11/04/14 PET scan negative! 11/25/14 ! [place] on 12/17/14 [place] [facility] [place] [...] new health concerns. Almost back to work full-time, up to 35 hours/week. Brain is a little fuzzy, especially when she is tired. Able to get done what she wants to get done. Exercises in the morning. No fevers or recent infections. No B symptoms. Going to [place] this weekend. Ex- is back in intermediate, which continues to cause much emotional stress. [...] mg Tablet Take by mouth every evening. Current Facility-Administered Medications on File Prior to Visit Medication Dose Route Frequency Provider Last Rate Last Dose ??? [DISCONTINUED] sodium chloride 0.9 % flush 10 mL 10 mL Intravenous Daily PRN Kimberly Mondragon MD ??? [DISCONTINUED] heparin, porcine 100 unit/mL flush 500 Units 500 Units Intercatheter Daily PRN Kimberly Mondragon MD ALLERGIES: Allergies Allergen Reactions ??? Levofloxacin Other [...] anxiety Sleep: No difficulty sleeping PHYSICAL EXAM: BP 107/56 (Patient Position: Sitting) Pulse 92 Temp 36.7 ??C (98.1 ??F) (Temporal) Resp 18 Wt 58.2 kg (128 lb 3.2 oz) SpO2 100% BMI 23.44 kg/m2 GENERAL: Myriam Vivas is healthy appearing [...] A+O x 3 Psychiatric: Normal. LABORATORY STUDIES: Lab Results Component Value Date WBC 3.9 (L) 12/25/2015 WBC 4.3 10/02/2015 RBC 3.36 (L) 12/25/2015 RBC 3.10 (L) 10/02/2015 HGB 11.0 (L) 12/25/2015 HGB 10.3 (L) 10/02/2015 HCT 32.3 (L) 12/25/2015 HCT 29.9 (L) 10/02/2015 MCV 96.1 (H) 12/25/2015 MCV 96.5 (H) 10/02/2015 MCH 32.7 (H) 12/25/2015 MCH 33.2 (H) 10/02/2015 MCHC 34.1 12/25/2015 MCHC 34.4 10/02/2015 PLATELET 153 12/25/2015 PLATELET 173 10/02/2015 RDWCV 12.0 12/25/2015 RDWCV 12.2 10/02/2015 NA 141 12/25/2015 NA 142 10/02/2015 K 4.0 12/25/2015 K 4.1 10/02/2015 CL 100 12/25/2015 CL 102 10/02/2015 CO2 30 12/25/2015 CO2 27 10/02/2015 BUN 22 (H) 12/25/2015 BUN 22 (H) 10/02/2015 CREATININE 0.96 12/25/2015 CREATININE 0.90 10/02/2015 GLUCOSE 99 12/25/2015 GLUCOSE 96 10/02/2015 CALCIUM 9.7 12/25/2015 CALCIUM 9.7 10/02/2015 LDH 166 12/25/2015 LDH 175 10/02/2015 RADIOLOGY STUDIES: ?? CT of C/A/P on [...] Has completed one year of Acyclovir 800mg bid, therefore, discontinue today. ?? Psychosocial - Depression and Anxiety has [...] #2 in 02/2017. ?? Disposition ?? RTC in 3 months with laboratory studies and will see Dr. Mondragon, in [place] ?? We will see her back in the hem clinic at [facility] [place] 6 months for labs, and vaccines(18 month post transplant vaccines). ?? Ongoing routine health maintenance, ie Check TSH annually, along with fasting glucose and cholesterol. Mammo, colo, pap smear/pelvic exam, etc. Kimberly Burnett, MSN, CENTRAL STATION OPERATOR Nurse Practitioner Section of Hematology/Oncology [facility] Office phone: CC: Belén Griffin MD documented in this encounter Plan of Treatment Upcoming Encounters Date Type Department Care Team (Late st Contact Info) Description 12/07/2023 12:00 PM EDT Office Visit Dermatology at [facility] [address] [place] [address] Juan F Chappell MD [facility] DR [place] [address] documented as of this encounter Visit Diagnoses Diagnosis Diffuse large B-cell lymphoma, unspecified body region documented in this encounter Care Teams Residential Concierge Relationship Specialty Start Date End Date Belén Griffin MD [address] [place] [address] PCP - General Family Medicine 05/07/15 documented as of this encounter
--- OUTSIDE RECORDS SUMMARY | 2023-10-28 00:42 | XMS_ITS | Encounter Summary ---
[place] [address] Care Team Providers Care Java Golden Gate Developer Name Role Phone Belén Griffin MD Primary Care Provider [phone] Reason for Visit * Reason Onset Date Comments Social Service Coordination 11/21/2015 Encounter Details Date Type Department Care Team (Late st Contact Info) Description 11/21/2015 Telephone Hematology [place] [phone] Dafne Sandy, RN Social Service Coordination Social History Tobacco Use Types Packs/Day Years [...] Telephone Encounter - Dafne Sandy RN - 11/21/2015 10:28 AM EDT Received disability paperwork from Sushma via fax. Paperwork forwarded to Marilu Daniels disability paperwork coordinator for completion. documented in this encounter Plan of Treatment Upcoming Encounters Date Type Department Care Team (Late st Contact Info) Description 12/07/2023 12:00 PM EDT Office Visit Dermatology at [facility] [address] [place] [address] Juan F Chappell MD [facility] DR [place] [address] documented as of this encounter Visit Diagnoses Not on filedocumented in this encounter Care Teams Java Golden Gate Developer Relationship Specialty Start Date End Date Belén Griffin MD [address] [place] [address] PCP - General Family Medicine 05/07/15 documented as of this encounter
--- OUTSIDE RECORDS SUMMARY | 2023-10-28 00:42 | XMS_ITS | Encounter Summary ---
Author Organization [facility] Address [facility] [place] [address] Care Team Providers Care Back Winder Name Role Phone Belén Griffin MD Primary Care Provider [phone] Encounter Details Date Type Department Care Team (Late st Contact Info) Description 05/26/2015 External Results Hematology [place] [address] Kimberly Mondragon MD [facility] DR [place] [address] Other malignant lymphomas, unspecified site, extranodal and solid organ sites Social History Tobacco Use Types Packs/Day Years [...] EDT Office Visit Dermatology at [facility] [address] [place] [address] Juan F Chappell MD [facility] [place] [address] documented as of this encounter Procedures Procedure Name Priority Date/Time Associated Diagnosis Comments CBC (WITH DIFF) STAT 05/26/2015 8:05 AM EDT Other malignant lymphomas, unspecified site, extranodal and solid organ sites documented in this encounter Results * (ABNORMAL) CBC (with Diff) (05/26/2015 8:05 AM EDT) White Blood Cell 2.74(EXTER NAL/ABN) EXTERNAL LAB Hemoglobin 10.0(EXTER NAL/ABN) EXTERNAL LAB Hematocrit 28.7(EXTER NAL/ABN) EXTERNAL LAB Platelet 150 EXTERNAL LAB Neutrophil Absolute (ANC) - Automated 1.81 EXTERNAL LAB Blood specimen (specimen) 05/26/2015 8:05 AM EDT Kimberly Mondragon MD HEMATOLOGY ORDER [facility] EXTERNAL LAB documented in this encounter Visit Diagnoses Diagnosis Other malignant lymphomas, unspecified site, extranodal and solid organ sites documented in this encounter Care Teams Back Winder Relationship Specialty Start Date End Date Belén Griffin MD [address] [place] [address] PCP - General Family Medicine 05/07/15 documented as of this encounter
--- OUTSIDE RECORDS SUMMARY | 2023-10-28 00:42 | XMS_ITS | Encounter Summary ---
Author Organization [facility] Address [facility] [place] [address] Care Team Providers Care Chief Cloth Finishing Range Operator Name Role Phone Belén Griffin MD Primary Care Provider [phone] Encounter Details Date Type Department Care Team (Late st Contact Info) Description 10/02/2015 Orders Only Hematology [place] [address] Brittaney Henning Social History Tobacco Use Types [...] 12:00 PM EDT Office Visit Dermatology at [facility] [address] [place] [address] Juan F Chappell MD [facility] DR R[address] [address] documented as of this encounter Visit Diagnoses Not on filedocumented in this encounter Care Teams Chief Cloth Finishing Range Operator Relationship Specialty Start Date End Date Belén Griffin MD [address] [place] [address] PCP - General Family Medicine 05/07/15 documented as of this encounter
--- OUTSIDE RECORDS SUMMARY | 2023-10-28 00:42 | XMS_ITS | Encounter Summary ---
Author Organization [facility] [place] [address] Care Team Providers Care Rac Specialist Name Role Phone Belén Griffin MD Primary Care Provider [phone] Encounter Details Date Type Department Care Team (Latest Contact Info) Description 12/25/2015 8:42 AM EST - 12/25/2015 11:[address] [facility] Hospital Encounter Hematology [place] [address] Status post autologous bone marrow transplant (Primary Dx); DLBCL (diffuse large B cell lymphoma); Stem cell donor; Examination of participant in clinical trial Discharge Disposition: Home Social History Tobacco Use [...] as of this encounter Progress Notes * Keyonna Horvath RN - 12/25/2015 9:38 AM EST Patient Name: Myriam Vivas Patient Age: 65 y.o. Birthdate: 1950 Admit date: 12/25/2015 Attending Physician: No att. providers found Access visit. See MAR and/or flowsheet. 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 Examination of participant in clinical trial DIFFERENTIAL, AUTOMATED STAT 12/25/2015 9:30 AM EST 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 Examination of participant in clinical trial CBC (WITH DIFF) STAT 12/25/2015 9:30 AM EST 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 Examination of participant in clinical trial LACTATE DEHYDROGENASE STAT 12/25/2015 9:30 AM EST 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 Examination of participant in clinical trial COMPREHENSIVE METABOLIC PANEL STAT 12/25/2015 9:30 AM EST 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 Examination of participant in clinical trial documented in this encounter Results * (ABNORMAL) Differential, Automated (12/25/2015 9:30 AM EST) Neutrophil % 65.2 % [facility] Neutrophil Absolute 2.55 1.70 - 6.10 x10(3)/mc L [facility] Lymph % 17.4 % [facility] Lymphocytes Abs 0.7(L) 0.9 - 3.2 x10(3)/ L [facility] Monocyte % 13.0 % [facility] Monocyte Abs 0.5 0.3 - 0.9 x10(3)/ L [facility] Eos % 3.6 % [facility] Eosinophils Abs 0.1 0.0 - 0.4 x10(3)/ L [facility] Basophil % 0.8 % [facility] Baso Absolute 0.0 0.0 - 0.1 x10(3)/mc L [facility] Immature Gran % 0.00 % [facility] Comment: Immature granulocytes(IG's)percentage and absolute count will include metamyelocytes, myelocytes, and promyelocytes. Blood smears from CBCs yielding IG's will be scanned manually for concordance. If this scan disagrees with the automated IG or if promyelocytes are noted, a manual differential will be performed. Immature Gran Absolute 0.00 0.00 - 0.04 x10(3)/mc L [facility] Blood specimen (specimen) 12/25/2015 9:30 AM EST 12/25/2015 9:56 AM EST Narrative Resulting Agency Comment Spec In Lab Kimberly Mondragon MD HEMATOLOGY ORDER [facility] [place] [address] * (ABNORMAL) Hemogram (12/25/2015 9:30 AM EST) White Blood Cell 3.9(L) 4.0 - 9.5 x10(3)/[facility] Red Blood Cell 3.36(L) 4.00 - 5.21 x10(6)/[facility] Hemoglobin 11.0(L) 11.7 - 15.5 gm/dL [facility] Hematocrit 32.3(L) 35.7 - 45.8 % [facility] Mean Cell Volume 96.1(H) 82.6 - 94.4 [facility] Mean Cell Hemoglobin 32.7(H) 27.1 - 32.0 pg [facility] Mean Cell Hemoglobin Concentration 34.1 31.7 - 35.0 gm/dL [facility] Platelet 153 145 - 357 x10(3)/[facility] RDW Standard Deviation 42.4 37.0 - 46.0 [facility] RDW coefficient of variation 12.0 11.5 - 14.1 % [facility] Mean Platelet Volume 8.7 7.6 - 12.9 [facility] NRBC% auto 0.0 % [facility] NRBC Absolute 0.000 0.000 - 0.000 x10(3)/[facility] Blood specimen (specimen) 12/25/2015 9:30 AM EST 12/25/2015 9:56 AM EST Narrative Resulting Agency Comment Spec In Lab Kimberly Mondragon MD HEMATOLOGY ORDER [facility] [place] [address] * Lactate Dehydrogenase (12/25/2015 9:30 AM EST) Pathologist [facility] Lactate Dehydrogenase 166 110 - 220 unit/L [facility] Blood specimen (specimen) 12/25/2015 9:30 AM EST 12/25/2015 9:56 AM EST Narrative Resulting Agency Comment Spec In Lab Kimberly Mondragon MD CHEMISTRY ORDERA BLES [facility] [place] [address] * (ABNORMAL) Comprehensive metabolic panel (non-fasting) (12/25/2015 9:30 AM EST) Glucose 99 65 - 199 mg/dL [facility] Comment:Diabetes: >=200 mg/d L plus symptoms Blood Urea Nitrogen 22(H) 8 - 18 mg/dL [facility] Creatinine 0.96 0.70 - 1.20 mg/dL [facility] Comment: Please note that the pediatric reference intervals supplied above were not validated at [facility]. Results from pediatric patients should be interpreted in conjunction to the patient's age, height and muscle mass. Sodium 141 135 - 145 mmol/L [facility] Potassium 4.0 3.5 - 5.0 mmol/L [facility] Comment: Please note: ??Patients with WBC >100,000 may have falsely elevated Potassium levels. ??For accurate Potassium quantification in these patients send serum separator tube (gold top) for subsequent determinations. ??Contact the Clinical Chemistry Laboratory if there are any questions. Chloride 100 98 - 107 mmol/L [facility] Carbon Dioxide 30 22 - 31 mmol/L [facility] Anion Gap 11 5 - 15 mmol/L [facility] Calcium 9.7 8.5 - 10.5 mg/dL [facility] Protein, Total 6.6 6.1 - 8.0 gm/dL [facility] Albumin 4.4 3.2 - 5.2 gm/dL [facility] Aspartate Aminotransferase 22 0 - 30 unit/L [facility] Alanine Aminotransferase 25 0 - 30 unit/L [facility] Alkaline Phosphatase 80 40 - 104 unit/L [facility] Bilirubin, Total 0.8 0.2 - 1.3 mg/dL [facility] Bilirubin, Direct 0.2 0.0 - 0.3 mg/dL [facility] Est Glomerular Filtration Rate 59(L) >=60 [facility] Comment: This estimated GFR (eGFR) [...] the following links into your internet browser. [email or web address] Blood specimen (specimen) 12/25/2015 9:30 AM EST 12/25/2015 9:56 AM EST Narrative Resulting Agency Comment Spec In Lab Kimberly Mondragon MD CHEMISTRY ORDERA BLES [facility] [place] [id number] documented in this encounter Visit Diagnoses Diagnosis 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 DLBCL (diffuse large B cell lymphoma) Other malignant lymphomas, unspecified site, extranodal and solid organ sites Stem cell donor Examination of participant in clinical trial documented in this encounter Care Teams Rac Specialist Relationship Specialty Start Date End Date Belén Griffin MD [address] [place] [address] PCP - General Family Medicine 05/07/15 documented as of this encounter
--- OUTSIDE RECORDS SUMMARY | 2023-10-28 00:42 | XMS_ITS | Encounter Summary ---
[place] [address] Care Team Providers Care Press Reader Name Role Phone Belén Griffin MD Primary Care Provider [phone] Reason for Visit * Reason Onset Date Comments Social Service Coordination 07/07/2015 Disa bility pprwork Encounter Details Date Type Department Care Team (Late st Contact Info) Description 07/07/2015 Telephone [place]ematology [place] [phone] Dafne Sandy, RN Social Service Coordination (Disability pprwork) Social History Tobacco Use Types Packs/Day Years [...] Telephone Encounter - Dafne Sandy RN - 07/07/2015 3:21 PM EDT Disability paperwork received from Sushma. Paperwork given to Marilu Daniels for completion documented in this encounter Plan of Treatment Upcoming Encounters Date Type Department Care Team (Late st Contact Info) Description 12/07/2023 12:00 PM EDT Office Visit Dermatology at [facility] [address] [place] [address] Juan F Chappell MD [facility] DR [place] [address] documented as of this encounter Visit Diagnoses Not on filedocumented in this encounter Care Teams Press Reader Relationship Specialty Start Date End Date Belén Griffin MD [address] [place] [address] PCP - General Family Medicine 05/07/15 documented as of this encounter
--- OUTSIDE RECORDS SUMMARY | 2023-10-28 00:42 | XMS_ITS | Encounter Summary ---
Author Organization [facility] Address [facility] [place] [address] Care Team Providers Care Drywall Worker Name Role Phone Belén Griffin MD Primary Care Provider [phone] Encounter Details Date Type Department Care Team (Late st Contact Info) Description 07/29/2015 External Results [facility] [place] [address] Kimberly Mondragon MD [facility] [place] [address] Social History Tobacco Use Types Packs/Day Years [...] 12:00 PM EDT Office Visit Dermatology at [facility] [address] [place] [address] Juan F Chapepll MD [facility] DR RAN[place] [address] documented as of this encounter Procedures Procedure Name Priority Date/Time Associated Diagnosis Comments CHEMOTHERAPY SCAN Routine 07/29/2015 documented in this encounter Results * Scan Doc: Chemotherapy (07/29/2015) Kimberly Mondragon MD MEDIA MGR SCAN E XT ORDR/RSLT documented in this encounter Visit Diagnoses Not on filedocumented in this encounter Care Teams Drywall Worker Relationship Specialty Start Date End Date Belén Griffin MD [address] [place] [address] [address] [place] [address] PCP - General Family Medicine 05/07/15 documented as of this encounter
--- OUTSIDE RECORDS SUMMARY | 2023-10-28 00:42 | XMS_ITS | Encounter Summary ---
Author Organization [facility] Address [facility] [place] [address] Care Team Providers Care Vamp Wetter Name Role Phone Belén Griffin MD Primary Care Provider [phone] Reason for Visit * Reason Comments Follow-up Encounter Details Date Type Department Care Team (Late st Contact Info) Description 07/29/2015 11:00 AM EDT Office Visit H[place]ology [place] [phone] Kimberly Mondragon MD [facility] [place] [address] Kimberly Burnett APRN [facility] [place] [address] DLBCL (diffuse large B cell lymphoma) Social [...] Sign Reading Time Taken Comments Blood Pressure 106/59 07/29/2015 10:45 AM EDT Pulse 75 07/29/2015 10:45 AM EDT Temperature 36.1 ??C (97 ??F) 07/29/2015 10:45 AM EDT Respiratory Rate - - Oxygen Saturation 100% 07/29/2015 10:45 AM EDT Inhaled Oxygen Concentration - - Weight 54.5 kg (120 lb 3.2 oz) 07/29/2015 10:45 AM EDT Height 157.5 cm (5' 2.01) 07/29/2015 10:45 AM E DT Body Mass Index 21.98 07/29/2015 10:45 AM EDT documented in this encounter Progress Notes * Kimberly Burnett, FOIL OPERATOR - 07/29/2015 11:37 AM EDT Hematology/[place] [address] FOLLOW-UP PATIENT EVALUATION Patient Active Problem List [...] was not informative according to the Bassem movie extra, but the strong BCL2 expression in the absence of MUM1 suggests a germinal center origin via the Muris movie extra. Lymphoma TB discussion 10/01/14 Recommendations for salvage chemotherapy and autologous stem cell transplant. C#1 RDHAP 10/09/14 With stem cell collection C#2 RDHAP 11/04/14 PET scan negative! 11/25/14 ! [place]17[place] [facility] Stem Cell Transplant [...] +13) Seven days after transfusion on 12/29 INTERIM HISTORY OF PRESENT ILLNESS: Luis Fernando Vivas is a 64yo female with Primary Refractory DLBCL. She is 7 Months (01/02/2015) s/p an Autologous peripheral blood stem cell transplant. Here for a 3 months followup. Doing ok. Still gets teired and takes a nap after four hours of work. Energy is improved overall. Naps once/day. Working 5 days/week. No B symptoms. No palpable adenopathy. Emotionally she is having a difficult time with accusations about the behavior of her ex-, and this has been very stressful. Remains on Lexapro Weight stable. No pain. No bleeding. MEDICATIONS: Current Outpatient Prescriptions on File Prior to Visit Medication Sig Dispense Refill ??? penicillin v potassium (VEETID) 500 mg Tablet Take 500 mg by mouth 4 times daily. ??? CHLORHEXIDINE GLUCONATE (PAROEX ORAL RINSE MM) by Mucous Membrane route 2 times daily. ??? escitalopram (LEXAPRO) 10 mg Tablet Take 10 mg by mouth daily. ??? LORazepam (ATIVAN) 0.5 mg Tablet Take 1 tablet by mouth every 6 hours as needed for Anxiety. 50tablet 1 ??? loperamide (IMMODIUM) 2 mg Capsule Take 2 mg by mouth 4 times daily as needed for Diarrhea. ??? acetaminophen (TYLENOL) 500 mg Tablet Take 1,000 mg by mouth every 6 hours as needed for Pain. ??? ondansetron (ZOFRAN) 8 mg Tablet Take 1 tablet by mouth every 8 hours as needed for Nausea. 20 tablet 3 ??? diphenhydrAMINE-acetaminophen (TYLENOL PM) 25-500 mg Tablet Take by mouth every evening. ??? hydrocortisone 1 % Cream Apply topically 4 times daily. Preparation-H. To hemorrhoids for discomfort 30 g 0 ??? escitalopram oxalate (LEXAPRO) 10 mg Tablet Take 1 tablet by mouth daily. 30 tablet 12 ??? docusate sodium (COLACE) 100 mg Capsule Take 100 mg by mouth 2 times daily. ??? senna (SENOKOT) 8.6 mg Tablet Take 1 tablet by mouth daily. No current facility-administered medications on file prior to visit. ALLERGIES: Allergies Allergen Reactions ??? Levofloxacin Other (See Comments) tendonitis ??? Tegaderm [Transparent Dressings] Other (See Comments) Unsure if actual allergy, please try [id number] Skin tears/rawness ??? Vancomycin Itching and Dermatitis Sarah's syndrome. Slow infusion for any upcoming doses. Broke out in maculopapular pruritic dermatitis on abdomen, chest, forehead and upper back. 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 CHANGES IN RELEVANT FAMILY HISTORY: ROS Energy level: Stable Pain: No Appetite:good [...] changes: neg Mood: Depression with anxiety Sleep: Difficulty sleeping PHYSICAL EXAM: BP 106/59 (Patient Position: Sitting) Pulse 75 Temp 36.1 ??C (97 ??F) (Temporal) Ht 157.5 cm (5' 2.01) Wt 54.5 kg (120 lb 3.2 oz) SpO2 100% BMI 21.98 kg/m2 GENERAL: Luis Fernando Vivas is in mild distress. Comes to the appointment alone. HEENT: Oral mucosa is clear. Neck: Supple Lungs: Clear breath sounds bilaterally Heart: Regular rate and rhythm without murmur Abdomen: Soft, nontender and no organomegaly Skin: No rash Extremity: shows no edema Muskuloskeletal: Walks slowly and deliberately. Neuro: A+O x 3 Psychiatric: Teary, depressed LABORATORY STUDIES: Lab Results Component Value Date WBC 3.1 (L) 07/29/2015 WBC 2.74 (EXTERNAL/ABN) 05/26/2015 RBC 3.10 (L) 07/29/2015 RBC 2.78 (L) 04/24/2015 HGB 10.4 (L) 07/29/2015 HGB 10.0 (EXTERNAL/ABN) 05/26/2015 HCT 29.3 (L) 07/29/2015 HCT 28.7 (EXTERNAL/ABN) 05/26/2015 MCV 94.5 (H) 07/29/2015 MCV 94.2 (H) 04/24/2015 MCH 33.5 (H) 07/29/2015 MCH 33.5 (H) 04/24/2015 MCHC 35.5 07/29/2015 MCHC 35.5 04/24/2015 PLATELET 144 (L) 07/29/2015 PLATELET 150 05/26/2015 RDWCV 13.2 07/29/2015 RDWCV 13.6 04/24/2015 NA 145 07/29/2015 NA 143 04/24/2015 K 3.8 07/29/2015 K 3.5 04/24/2015 CL 104 07/29/2015 CL 104 04/24/2015 CO2 28 07/29/2015 CO2 23 04/24/2015 BUN 22 (H) 07/29/2015 BUN 26 (H) 04/24/2015 CREATININE 1.00 07/29/2015 CREATININE 1.19 04/24/2015 GLUCOSE 114 07/29/2015 GLUCOSE 92 04/24/2015 CALCIUM 9.6 07/29/2015 CALCIUM 10.1 04/24/2015 LDH 184 07/29/2015 LDH 147 04/24/2015 Results for LUIS FERNANDO VIVAS ( ) as of 08/05/2015 15:08 Ref. Range 07/29/2015 09:30 Neutr Abs (ANC) Latest Ref Range: 1.50 - 6.30 x10(3)/mcL 2.04 RADIOLOGY STUDIES: none ASSESSMENT: Luis Fernando Vivas is a delightful 64 y.o. female with Primary Refractory DLBCL. She is +7 months s/p an Autologous pb stem cell transplant. ?? 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 It has been four months since she needed a dose of Neulasta. She is leukopenic today(stable), but not neutropenic. No focal s/s of infection. ?? Neutropenia - ?? Not neutropenic. Leukopenia stable. ?? ID - No focal s/s of infection. - Continue Acyclovir 800mg bid x 1 year post transplant. ?? Psychosocial - Depression and Anxiety has been an issue throughout her treatment, and is worse at the current time, despite being back on the Lexapro. A new issue with her ex- has surfaced, and she and herfamily are trying to deal with this. Using Ativan about 0.25 mg about 3-5 times daily. She is doinggreat with her ativan usage. She has a therapist. ?? Vaccines - Dose #1 Prevnar 13 given in April. Today, she will receive dose #2 Prevnar 13 (given at 3, 6, 9 months post transplant) and start her initial series of vaccinations today also: DTaP with IPV; Hib; Hep B #1 - In One month, Luis Fernando will return and receive her 2nd series of vaccines: DTaP with Hep B and IPV; Hib; Hep B #2 And 3rd dose of Prevnar 13 ?? Disposition - Great support from friends and Carlos. She is working part-time. IMMEDIATE PLANS: ?? Proceed with 1st series of post transplant vaccinations. Including 2nd dose of Prevnar. ?? Continue Lexapro 10mg daily ?? Continue ativan 0.25mg tid prn ?? Continue Acyclovir 800mg bid and continue for one year post transplant. ?? F/U with Dafne regarding:[employer] and letter regarding long-term disability. ?? RTC in One month for labs(cbc, diff), vaccines only and 2 months for labs, appt and vaccines Kimberly Burnett, MSN, FOIL OPERATOR Nurse Practitioner Section of Hematology/Oncology [facility] Office phone: CC: Belén Griffin MD documented in this encounter Plan of Treatment Upcoming Encounters Date Type Department Care Team (Late st Contact Info) Description 12/07/2023 12:00 PM EDT Office Visit Dermatology at [facility] [address] [place] [address] Juan F Chappell MD [facility] [address] [place] [address] documented as of this encounter Visit Diagnoses Diagnosis DLBCL (diffuse large B cell lymphoma) Other malignant lymphomas, unspecified site, extranodal and solid organ sites documented in this encounter Care Teams Vamp Wetter Relationship Specialty Start Date End Date Belén Griffin MD [address] [place] [address] PCP - General Family Medicine 05/07/15 documented as of this encounter
--- OUTSIDE RECORDS SUMMARY | 2023-10-28 00:42 | XMS_ITS | Encounter Summary ---
Author Organization [facility] Address [facility] [place] [address] Care Team Providers Care Canvas Shop Laborer Name Role Phone Belén Griffin MD Primary Care Provider [phone] Encounter Details Date Type Department Care Team (Latest Contact Info) Description 08/28/2015 11:04 AM EDT - 08/28/2015 11:59 PM EDT Hospital Encounter H[place]ology [place] [phone] Lymphoma, unspecified body region, unspecified lymphoma type (Primary Dx) Discharge Disposition: Home Social History Tobacco Use [...] Tablet Take 10 mg by mouth daily. diphenhydrAMINE-acetam inophen (TYLENOL PM) 25-500 mg TabletIndications:Othe r drug-induced neutropenia Take by mouth every evening. Reported on 03/24/2016 acetaminophen (TYLENOL) 500 mg Tablet Take 1,000 mg by mouth every 6 hours as needed for Pain. Reported on 03/24/2016 penicillin v potassium (VEETID) 500 mg Tablet Take 500 mg by mouth 4 times daily. 10/02/2015 CHLORHEXIDINE GLUCONATE (PAROEX ORAL RINSE MM) by Mucous Membrane route 2 times daily. 10/02/2015 LORazepam (ATIVAN) 0.5 mg TabletIndications:DLBC L (diffuse large B cell lymphoma),Stem cell donor,Examination of participant in clinical trial Take 1 tablet by mouth every 6 hours as needed for Anxiety. 50 tablet 1 06/25/2015 11/29/2018 loperamide (IMMODIUM) 2 mg Capsule Take 2 mg by mouth 4 times daily as needed for Diarrhea. 10/02/2015 ondansetron (ZOFRAN) 8 mg TabletIndications:Lymp fawn, unspecified lymphoma, unspecified lymphoma region,DLBCL (diffuse large B cell lymphoma),Stem cell donor,Examination of participant in clinical trial Take 1 tablet by mouth every 8 hours as needed for Nausea. 20 tablet 3 05/07/2015 10/02/2015 hydrocortisone 1 % Cream Apply topically 4 times daily. Preparation-H. To hemorrhoids for discomfort 30 g 0 01/03/2015 10/02/2015 escitalopram oxalate (LEXAPRO) 10 mg Tablet Take 1 tablet by mouth daily. 30 tablet 12 01/03/2015 12/25/2015 docusate sodium (COLACE) 100 mg Capsule Take 100 mg by mouth 2 times daily. 10/02/2015 senna (SENOKOT) 8.6 mg Tablet Take 1 tablet by mouth daily. 12/25/2015 documented as of this encounter Progress Notes * Vonda Stanley RN - 08/28/2015 1:34 PM EDT Patient Name: Myriam Vivas Patient Age: 64 y.o. Birthdate: 1950 Admit date: 08/28/2015 Attending Physician: No att. providers found Access visit. See MAR and/or flowsheet. documented in this encounter Plan of Treatment Upcoming Encounters Date Type Department Care Team (Late st Contact Info) Description 12/07/2023 12:00 PM EDT Office Visit Dermatology at [facility] [address] [place] [address] Juan F Chappell MD [facility] DR [place] [address] documented as of this encounter Visit Diagnoses Diagnosis Lymphoma, unspecified body region, unspecified lymphoma type- Primary documented in this encounter Care Teams Canvas Shop Laborer Relationship Specialty Start Date End Date Belén Griffin MD [address] [place] [address] PCP - General Family Medicine 05/07/15 documented as of this encounter
--- OUTSIDE RECORDS SUMMARY | 2023-10-28 00:42 | XMS_ITS | Encounter Summary ---
Author Organization [facility] Address [facility] [place] [address] Care Team Providers Care Refinery Operator Crude Unit Name Role Phone Belén Griffin MD Primary Care Provider [phone] Reason for Visit * Reason Onset Date Comments Labs Only 07/07/2015 lab tracking Encounter Details Date Type Department Care Team (Late st Contact Info) Description 07/07/2015 Telephone Hematology/Oncology at [address] [address] Ana Paula Benz RN Labs Only (lab tracking) Social History Tobacco Use Types Packs/Day Years [...] Encounter - Ana Paula Benz RN - 07/07/2015 10:19 AM EDT LAB TRACKING Diagnosis: Lymphoma LABS ORDERED: CBC every other Tuesday Assessment: Labs sent to Dr. Mondragon for review. Plan: Pt feels fine, pt can go to every other week per Dr. Mondragon, pt agrees with plan. DATE WBC HGB/HCT PLTS ANC MEDS/PLAN LOCATION 07/07/15 3.24 10.4/30.2 185k 2.13 Labs every other week [facility] 06/30/15 3.82 10.3/29.1 180 2.53 CBC q tuesday [facility] 06/23/15 4.89 10.3/29.6 181k 3.70 Antibiotics per dentist Cbc every [place] 06/16/15 8.44 10.4/29.9 118K 6.50 CBC every Tuesday at [facility] 06/09/15 1.29 10.5 160k 0.43 Pt will have neulasta 6 mg today Labs again next week. 05/26/15 2.74 10.7 150K 1.81 No Change Labs every other week next due 06/09/15 05/12/15 2.16 9.5/27.7 177K 1.35 No change Labs every other week next due 05/2505/05/15 4.24 9.2/26.7 185k 3.18 Continue as planned Labs at [facility] 05/1104/28/15 4.56 9.3/27.6 224k 3.61 augmentin d/c'd . 04/23 [facility] 05/0404/21/15 6.26 9.2/26.4 137k 5.20 Continued as planned [facility] 04/2704/14/15 6.03 9.7/27.6 129k 4.98 continued as planned [facility] 04/20 04/07 38.09 0.7/27.8 175 32.38 Weaning off Lexapro. Continues off Acyclovir and Bactrim [facility] .03/31/15 0.98 8.7/24.2 126k .09 Pt to have bone marrow biopsy tue and pet scan see Birgit [facility] 04/0703/24/15 5.36 10.2/28.1 123 4.22 [facility] 17.34 9.6/27.2 89 8.84 [facility] documented in this encounter Plan of Treatment Upcoming Encounters Date Type Department Care Team (Late st Contact Info) Description 12/07/2023 12:00 PM EDT Office Visit Dermatology at [address] [place] [address] Juan F Chappell MD [facility] DR RANDEE [place] [address] documented as of this encounter Visit Diagnoses Not on filedocumented in this encounter Care Teams Refinery Operator Crude Unit Relationship Specialty Start Date End Date Belén Griffin MD [address] [place] [address] [address] [facility] [address] [place] [address] PCP - General Family Medicine 05/07/15 documented as of this encounter
--- OUTSIDE RECORDS SUMMARY | 2023-10-28 00:42 | XMS_ITS | Encounter Summary ---
[place] [address] Care Team Providers Care Dietary Server Name Role Phone Belén Griffin MD Primary Care Provider [phone] Reason for Visit * Reason Onset Date Comments Follow-up 07/29/2015 Encounter Details Date Type Department Care Team (Late st Contact Info) Description 07/29/2015 Telephone Hematology [place] [phone] Dafne Sandy, RN Follow-up Social History Tobacco Use Types Packs/Day Years [...] Telephone Encounter - Dafne Sandy RN - 07/29/2015 2:46 PM EDT RN received the following message from clinical medical secretary teacher: Myriam called, she wanted to know when she is supposed to go to [facility] for her labs, and at what frequency? Would you please call her? Per Dr Mondragon, patient will follow up here in 1 month. No labs needed until f/u appt. Spoke with patient and she is aware of above plan. RN will continue to follow. documented in this encounter Plan of Treatment Upcoming Encounters Date Type Department Care Team (Late st Contact Info) Description 12/07/2023 12:00 PM EDT Office Visit Dermatology at [facility] [address] [place] [address] Juan F Chappell MD [facility] DR [address] [address] documented as of this encounter Visit Diagnoses Not on filedocumented in this encounter Care Teams Dietary Server Relationship Specialty Start Date End Date Belén Griffin MD [address] [place] [address] PCP - General Family Medicine 05/07/15 documented as of this encounter
--- OUTSIDE RECORDS SUMMARY | 2023-10-28 00:42 | XMS_ITS | Encounter Summary ---
Author Organization [facility] Address [facility] [place] [address] Care Team Providers Care Teletype Technician Name Role Phone Belén Griffin MD Primary Care Provider [phone] Reason for Visit * Reason Onset Date Comments Nutrition Counseling 07/24/2015 Encounter Details Date Type Department Care Team (Late st Contact Info) Description 07/24/2015 9:00 AM EDT Telephone Hematology/Oncology at [address] [address] [facility] [place] [address] Nutrition Counseling Social History Tobacco Use Types Packs/Day Years [...] encounter Miscellaneous Notes * Telephone Encounter - Markell Drew RD - 07/24/2015 10:45 AM EDT [facility] Dietitian Follow Up? Assessment Seen By: Arminda Drew, , RD, METAL COATER OPERATOR, LD Patient and diagnosis: Myriam Vivas is a 64yo female with Primary Refractory DLBCL.?? She is 5?? Months?? (01/02/2015)? s/p an Autologous peripheral blood stem cell transplant. ?? She was discharged home 4 days ago. Has spent most of her time in bed. She is sleeping very well and taking 3-4 daytime naps, each over a couple of hours. Did not do much walking while hospitalized. She is however, going up and down stairs 4-5x/day. Able to perform ADLs independently. Struggling with her appetite. No interest in eating and contending with taste changes. Had a few mouth sores during transplant, but these have healed. She is eating a few bites of crackers, yogurt, soup broth and cheese. Poor intake of fluids, < 1Liter. Has never been able to take in a lot of fluids. Assessment: ?? HPI: Patient Active Problem List?? Diagnosis?? Code? Lymphoma?? C85.90? Depression with anxiety?? F41.8? Hypokalemia?? E87.6? Hypomagnesemia?? E83.42? Neutropenia?? D70.9? Chemotherapy adverse reaction?? T45.1X5A? Status post autologous bone marrow transplant?? Z94.81?? ADMIT on 12/17/14 to [facility] for Autologous Peripheral BlN/ood [...] +13) Seven days after transfusion on 12/29 Meds: reviewed Labs: reviewed Ht/Wt: 157.5 cm Oncology Vitals 05/21/2015 Weight 54.432 kg Previous Wt: ??63.9 kg on 01/17/15; gain Oncology Vitals?? 01/10/2015?? Weight?? 62.823 kg?? Height?? 158.3 cm?? Wt Hx: ?UBW: ??125 - 150. 147 during chemo, but lost after BMT?% UBW: ?IBW: ??48.2 kg?+/- 10%?% IBW: ?? BMI: 22 ?___ Edema?___ Ascites?___Muscle wasting Calorie needs: ??1200 Protein needs: 58 Fluid needs: ??1.5 - 2 L Food Intake: Eating smaller meals, grazes. Feels stomach has shrunk. Went out to dinner three timeslast week. Has started cooking some, otherwise, she was relying of frozen meals. Buying premade smoothies - takes her three servings to drink it. Mouth sores may come and go, predominantly on sides of tongue. Am: 1/2 bagel and cream cheese (250 kcals, 6 g pro) Snack: high fat yogurt (260 kcals, 8 g pro), spoonful of PB (~ 100 kcals, 4 g pro) Noon: 1/2 chx salad sandwich (250 kals , 24 g pro), 1.5 cookies (200 kcals, 2 g pro) Pm: german left overs (lo mein - 231 kcals, 12 g pro, egg roll- 56 kcals, 2 g pro) Snacks: Intake: ~ 1200 kcals, 56 Fluids: Pettis nectar and water and 1/3 naked smoothi Supplements/Frequency: home made smoothies - ?___ Ensure/Plus ?___ Boost/Plus ?___ CIB ?___ Other: ?? Teas, vitamins, or other nutritional supplements: none currently Food allergies or avoidances: none Appetite: ??Good, eating small, frequent meals Nausea: not really Vomiting: Denies Chewing: ?? Dentition: ?? Swallowing: denies Taste Changes: starting to taste better Bowels: off and on, but regular at the moment. May take stool softener or immodium, prn Food availability/purchasing, meal planning and preparation: Staying with her significant other, Carlos. Depression: ?? Social Support: ?? 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 Nutrition Diagnosis: ?? Was asked by Faustina Soto RN to speak with Myriam while she was in clinic for IVF.?? We discussed the concept of food as medicine and the importance of eating small, frequent, calorically dense, protein-rich meals and snacks throughout the day.?? She is focusing on bland foods specifically cereals and crackers.?? She gets easily overwhelmed with food, which is not typical for her.? Becoming stronger and more active since discharged 6 days ago. Now can walk up stairs unassisted and walks them 5-6 times/d.?? Struggles with fluids.? Also discussed the benefits of light physical activity,?? Starting gradually with minutes and increasing daily, most days of the week to help with fatigue, stimulate appetite, and preserve muscle mass. ?? 05/29/15: Feels like she is gaining footing with life in general. 07/24/15: PC to Myriam for follow up, she was able to talk only briefly. She reports she is eating well, enjoying access to more fruits and vegetables as the weather has warmed up and has gained 4 lbs. She feels comfortable with current weight. She is at low nutritional risk and discussed if concerns arise we can touch base at that point. Nutrition Intervention: ? Increase caloric needs ?? Modify diet consistency: ? Increase frequency of meals and snacks ?? Need for supplements Nutrition Goals: ?? Educational Handouts provided: --Diarrhea --Fluid needs -- Taste and smell changes Other Recommendations: ? Monitoring and Evaluation: ?? Will follow up with janet Donahue * Telephone Encounter - Markell Drew RD - 07/24/2015 10:31 AM EDT [facility] Dietitian Follow Up? Assessment Seen By: Arminda Drew MS, RD, METAL COATER OPERATOR, LD Patient and diagnosis: Myriam Vivas is a 64yo female with Primary Refractory DLBCL.?? She is 5?? Months?? (01/02/2015)? s/p an Autologous peripheral blood stem cell transplant. ?? She was discharged home 4 days ago. Has spent most of her time in bed. She is sleeping very well and taking 3-4 daytime naps, each over a couple of hours. Did not do much walking while hospitalized. She is however, going up and down stairs 4-5x/day. Able to perform ADLs independently. Struggling with her appetite. No interest in eating and contending with taste changes. Had a few mouth sores during transplant, but these have healed. She is eating a few bites of crackers, yogurt, soup broth and cheese. Poor intake of fluids, < 1Liter. Has never been able to take in a lot of fluids. Assessment: ?? HPI: Patient Active Problem List?? Diagnosis?? Code? Lymphoma?? C85.90? Depression with anxiety?? F41.8? Hypokalemia?? E87.6? Hypomagnesemia?? E83.42? Neutropenia?? D70.9? Chemotherapy adverse reaction?? T45.1X5A? Status post autologous bone marrow transplant?? Z94.81?? ADMIT on 12/17/14 to [facility] for Autologous Peripheral BlN/ood [...] +13) Seven days after transfusion on 12/29 Meds: reviewed Labs: reviewed Ht/Wt: 157.5 cm Oncology Vitals 05/21/2015 Weight 54.432 kg Previous Wt: ??63.9 kg on 01/17/15; gain Oncology Vitals?? 01/10/2015?? Weight?? 62.823 kg?? Height?? 158.3 cm?? Wt Hx: ?UBW: ??125 - 150. 147 during chemo, but lost after BMT?% UBW: ?IBW: ??48.2 kg?+/- 10%?% IBW: ?? BMI: 22 ?___ Edema?___ Ascites?___Muscle wasting Calorie needs: ??1200 Protein needs: 58 Fluid needs: ??1.5 - 2 L Food Intake: Eating smaller meals, grazes. Feels stomach has shrunk. Went out to dinner three timeslast week. Has started cooking some, otherwise, she was relying of frozen meals. Buying premade smoothies - takes her three servings to drink it. Mouth sores may come and go, predominantly on sides of tongue. Am: 1/2 bagel and cream cheese (250 kcals, 6 g pro) Snack: high fat yogurt (260 kcals, 8 g pro), spoonful of PB (~ 100 kcals, 4 g pro) Noon: 1/2 chx salad sandwich (250 kals , 24 g pro), 1.5 cookies (200 kcals, 2 g pro) Pm: german left overs (lo mein - 231 kcals, 12 g pro, egg roll- 56 kcals, 2 g pro) Snacks: Intake: ~ 1200 kcals, 56 Fluids: Pettis nectar and water and 1/3 naked smoothi Supplements/Frequency: home made smoothies - ?___ Ensure/Plus ?___ Boost/Plus ?___ CIB ?___ Other: ?? Teas, vitamins, or other nutritional supplements: none currently Food allergies or avoidances: none Appetite: ??Good, eating small, frequent meals Nausea: not really Vomiting: Denies Chewing: ?? Dentition: ?? Swallowing: denies Taste Changes: starting to taste better Bowels: off and on, but regular at the moment. May take stool softener or immodium, prn Food availability/purchasing, meal planning and preparation: Staying with her significant other, Carlos. Depression: ?? Social Support: ?? 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 Nutrition Diagnosis: ?? Was asked by Faustina Soto, LINDA to speak with Myriam while she was in clinic for IVF.?? We discussed the concept of food as medicine and the importance of eating small, frequent, calorically dense, protein-rich meals and snacks throughout the day.?? She is focusing on bland foods specifically cereals and crackers.?? She gets easily overwhelmed with food, which is not typical for her.? Becoming stronger and more active since discharged 6 days ago. Now can walk up stairs unassisted and walks them 5-6 times/d.?? Struggles with fluids.? Also discussed the benefits of light physical activity,?? Starting gradually with minutes and increasing daily, most days of the week to help with fatigue, stimulate appetite, and preserve muscle mass. ?? 05/29/15: Feels like she is gaining footing with life in general. 07/24/15: Feels like Nutrition Intervention: ? Increase caloric needs ?? Modify diet consistency: ? Increase frequency of meals and snacks ?? Need for supplements Nutrition Goals: ?? Educational Handouts provided: --Diarrhea --Fluid needs -- Taste and smell changes Other Recommendations: ? Monitoring and Evaluation: ?? Will follow up with Mrs. Vivas in 4-6 week (s)?? Via TC to re-evaluate. documented in this encounter Plan of Treatment Upcoming Encounters Date Type Department Care Team (Late st Contact Info) Description 12/07/2023 12:00 PM EDT Office Visit Dermatology at [facility] [address] [place] [address] Juan F Chappell MD [facility] DR RANDEE [place] [address] documented as of this encounter Visit Diagnoses Not on filedocumented in this encounter Care Teams Teletype Technician Relationship Specialty Start Date End Date Belén Griffin MD [address] [place] [address] PCP - General Family Medicine 05/07/15 documented as of this encounter
--- OUTSIDE RECORDS SUMMARY | 2023-10-28 00:42 | XMS_ITS | Encounter Summary ---
Author Organization [facility] Address [facility] [place] [address] Care Team Providers Care Teacher Citizenship Name Role Phone Belén Griffin MD Primary Care Provider Reason for Visit * Reason Onset Date Comments Labs Only 05/26/2015 Lab Tracking Encounter Details Date Type Department Care Team (Late st Contact Info) Description 05/26/2015 Telephone Hematology/Oncology at [address] [address] Faustina Soto RN Labs Only [...] Telephone Encounter - Faustina Soto RN - 05/26/2015 10:25 AM EDT LAB TRACKING Diagnosis: Lymphoma LABS ORDERED: CBC every other mondays MEDICATIONS: Assessment: No Complaints per patient. Plan: labs every other week per Dr. Mondragon (started 05/12/15) DATE WBC HGB/HCT PLTS ANC MEDS/PLAN LOCATION 05/26/15 2.74 12/11.7 150K 1.81 No Change Labs every other week next due 06/09/15 05/12/15 2.16 9.5/27.7 177K 1.35 No change Labs every other week next due 05/2505/05/15 4.24 9.2/26.7 185k 3.18 Continue as planned Labs at [facility] 05/1104/28/15 4.56 9.3/27.6 224k 3.61 augmentin d/c'd th. 04/23 [facility] 05/0404/21/15 6.26 9.2/26.4 137k 5.20 Continued as planned [facility] 04/2704/14/15 6.03 9.7/27.6 129k 4.98 continued as planned [facility] 04/20 04/07 38.09 0.7/27.8 175 32.38 Weaning off Lexapro. Continues off Acyclovir and Bactrim [facility] .03/31/15 0.98 8.7/24.2 126k .09 Pt to have bone marrow biopsy tue and pet scan see Birgit [facility] 04/0703/24/15 5.36 10.2/28.1 123 4.22 [facility] 17.34 9.6/27.2 89 8.84 [facility] documented in this encounter Plan of Treatment Upcoming Encounters Date Type Department Care Team (Late st Contact Info) Description 12/07/2023 12:00 PM EDT Office Visit Dermatology at [facility] [address] [place] [address] Juan F Chappell MD [facility] DR RANDE[place] [address] documented as of this encounter Visit Diagnoses Not on filedocumented in this encounter Care Teams Teacher Citizenship Relationship Specialty Start Date End Date Belén Griffin MD [address] [place] [address] PCP - General Family Medicine 05/07/15 documented as of this encounter
--- OUTSIDE RECORDS SUMMARY | 2023-10-28 00:42 | XMS_ITS | Encounter Summary ---
Author Organization [facility] [address] Care Team Providers Care Machine Attendant Name Role Phone Belén Griffin MD Primary Care Provider [phone] Reason for Visit * Reason Onset Date Comments Questions 08/28/2015 Encounter Details Date Type Department Care Team (Late st Contact Info) Description 08/28/2015 Telephone Hematology [place] [phone] Dafne Sandy, RN Questions Social History Tobacco [...] Telephone Encounter - Dafne Sandy RN - 08/28/2015 3:27 PM EDT RN received the following message from clinical field secretary: Patient is having a dental appointment next Tue. ??Does she need to get labs prior to this? ??She can be reached at: [phone] RN reviewed today's results with Thelma Burnett NP and she states patient does not need to have repeat labs next week. Labs are stable today. RN called patient at above number and she is aware labs are stable. RN discussed with patient that she does not need labs again prior to her dental appt next week. Future appts reviewed with patient and she knows next lab draw will be in September. Patient knows to contact this office with further questions or concerns. RN will continue to follow documented in this encounter Plan of Treatment Upcoming Encounters Date Type Department Care Team (Late st Contact Info) Description 12/07/2023 12:00 PM EDT Office Visit Dermatology at [facility] [address] [place] [address] Juan F Chappell MD [facility] DR RANDEE [place] [address] documented as of this encounter Visit Diagnoses Not on filedocumented in this encounter Care Teams Machine Attendant Relationship Specialty Start Date End Date Belén Griffin MD [address] [place] [address] PCP - General Family Medicine 05/07/15 documented as of this encounter
--- OUTSIDE RECORDS SUMMARY | 2023-10-28 00:42 | XMS_ITS | Encounter Summary ---
Author Organization [facility] Address [facility] [place] [address] Care Team Providers Care Rehab Spec Name Role Phone Belén Griffin MD Primary Care Provider [phone] Encounter Details Date Type Department Care Team (Late st Contact Info) Description 08/21/2015 Telephone Hematology [place] [phone] Dafne Sandy RN Social History Tobacco Use [...] Telephone Encounter - Dafne Sandy RN - 08/21/2015 11:53 AM EDT RN received the following message from clinical litigation secretary: Myriam called, saying she is scheduled for labs and then vaccines on 08/27 in the morning. ??She saidshe is leaving for [place] right after her vaccinations. ??She wants to make sure we look at her labsbefore she leaves, so that if she needs anything prior to leaving for [place], she gets it. ??Her fear is that she leaves for [place] and then we call her, saying she needs to come back for some reason. I told her I would relay this to you to make sure someone is checking for her labs. Reminder placed in eDH for nursing to monitor results and contact patient once received. RN will continue to follow documented in this encounter Plan of Treatment Upcoming Encounters Date Type Department Care Team (Late st Contact Info) Description 12/07/2023 12:00 PM EDT Office Visit Dermatology at [facility] [address] [place] [address] Juan F Chappell MD [facility] DR RANDEE [place] [address] documented as of this encounter Visit Diagnoses Not on filedocumented in this encounter Care Teams Rehab Spec Relationship Specialty Start Date End Date Belén Griffin MD [address] [facility] [address] [place] [address] PCP - General Family Medicine 05/07/15 documented as of this encounter
--- OUTSIDE RECORDS SUMMARY | 2023-10-28 00:42 | XMS_ITS | Encounter Summary ---
Author Organization [facility] Address [facility] [place] [address] Care Team Providers Care Track Walker Name Role Phone Belén Griffin MD Primary Care Provider [phone] Encounter Details Date Type Department Care Team (Late st Contact Info) Description 06/25/2015 8:45 AM EDT Office Visit Hematology/Oncology at [address] [phone] Hawa Overton, BELT BUILDER [facility] [place] [address] DLBCL (diffuse large B cell lymphoma); Stem cell donor; Examination of participant in clinical trial Social History Tobacco Use Types Packs/Day Years [...] Sign Reading Time Taken Comments Blood Pressure 104/63 06/25/2015 8:57 AM EDT Pulse 70 06/25/2015 8:57 AM EDT Temperature 36.7 ??C (98.1 ??F) 06/25/2015 8:57 AM ED T Respiratory Rate 16 06/25/2015 8:57 AM EDT Oxygen Saturation 100% 06/25/2015 8:57 AM EDT Inhaled Oxygen Concentration - - Weight 53.3 kg (117 lb 8 oz) 06/25/2015 8:57 AM EDT Height - - Body Mass Index 21.49 05/21/2015 9:53 AM EDT documented in this encounter Patient Instructions * Patient Instructions* Hawa Overton APRN - 06/25/2015 9:43 AM EDT She will followup with paul in [place] as scheduled on 07/29/15. Will continue every other week labs for now. documented in this encounter Progress Notes * Hawa Overton APRN - 06/25/2015 9:42 AM EDT Hematology/BMT Clinic [place] [id number] FOLLOW-UP PATIENT EVALUATION Patient Active Problem List [...] was not informative according to the [employer] butcher supervisor, but the strong BCL2 expression in the absence of MUM1 suggests a germinal center origin via the [place] butcher supervisor. Lymphoma TB discussion 10/01/14 Recommendations for salvage chemotherapy and autologous stem cell transplant. C#1 RDHAP 10/09/14 With stem cell collection C#2 RDHAP 11/04/14 PET scan negative! 11/25/14 ! ADMIT on 12/17/14 to [facility] for Autologous Peripheral BlN/ood Stem [...] on 12/29 INTERIM HISTORY OF PRESENT ILLNESS: Myriam Vivas is a 64yo female with Primary Refractory DLBCL. She is 5 Months (01/02/2015) s/p an Autologous peripheral blood stem cell transplant. She is still fatigued. She is still napping. She is working 3-4 hrs day. Her last neulasta was two weeks ago. She had her last pentamidine treatment in early June. She saw the real estate inspector and is working on her weight. Her weight is down another 3 lbs since her visit last month. She is on antibiotics- penicillin for a dental issue. Emotionally, she feels like things are getting better. She is back seeing her therapist who believes she should go back on her Lexapro, which we stopped while trying to sort out her neutropenia. Myriam is doing a bit better on the lexapro. Had a nice trip to [place]. No fevers. No HAs, lightheadedness/dizziness. Breathing is stable. MEDICATIONS: Current Outpatient Prescriptions on File Prior to Visit Medication Sig Dispense Refill ??? acetaminophen (TYLENOL) 500 mg Tablet Take 1,000 mg by mouth every 6 hours as needed for Pain. ??? diphenhydrAMINE-acetaminophen (TYLENOL PM) 25-500 mg Tablet Take by mouth every evening. ??? escitalopram oxalate (LEXAPRO) 10 mg Tablet Take 1 tablet by mouth daily. 30 tablet 12 ??? loperamide (IMMODIUM) 2 mg Capsule Take 2 mg by mouth 4 times daily as needed for Diarrhea. ??? ondansetron (ZOFRAN) 8 mg Tablet Take 1 tablet by mouth every 8 hours as needed for Nausea. 20 tablet 3 ??? hydrocortisone 1 % Cream Apply topically 4 times daily. Preparation-H. To hemorrhoids for discomfort 30 g 0 ??? docusate sodium (COLACE) 100 mg Capsule Take 100 mg by mouth 2 times daily. ??? senna (SENOKOT) 8.6 mg Tablet Take 1 tablet by mouth daily. No current facility-administered medications on file prior to visit. ALLERGIES: Allergies Allergen Reactions ??? Levofloxacin Other (See Comments) tendonitis ??? Tegaderm [Transparent Dressings] Other (See Comments) Unsure if actual allergy, please try [id number] Skin tears/rawness ??? Vancomycin Itching and Dermatitis Sarah's syndrome. Slow infusion for any upcoming doses. Broke out in maculopapular pruritic dermatitis on abdomen, chest, forehead and upper back. 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 CHANGES IN RELEVANT FAMILY HISTORY: ROS Energy level:slowly improving Pain: No Appetite:good Fevers/chills/sweats:No Bruising/bleeding/melena:No Recent infections: Headaches:neg Vision:neg Hearing:neg Sinus: neg Seasonal Allergies: [...] anxiety Sleep: Difficulty sleeping PHYSICAL EXAM: BP 104/63 mmHg Pulse 70 Temp(Src) 36.7 ??C (98.1 ??F) (Oral) Resp 16 Wt 53.298 kg (117 lb 8oz) SpO2 100% GENERAL: Myriam Vivas is in better spirits today. HEENT: Oral mucosa is clear. Neck: Supple Lungs: Clear breath sounds bilaterally Heart: Regular rate and rhythm without murmur Abdomen: Soft, nontender and no organomegaly Skin: No rash Extremity: shows no edema Muskuloskeletal: Walks slowly and deliberately. Neuro: A+O x 3 Psychiatric: Teary, depressed LABORATORY STUDIES: date wbc anc hgb plt 01/17/15 5.2 3.13 7.9 218 01/29/15 4.5 2.3 8.8 187 1/20/16 2.0 0.98 9.5 149 03/12/15 0.89 0.02 9.8 135 Stop ACV, Bactrim and give neulasta #1 03/17/15 17.3 8.8 9.6 89 04/03/15 0.8 0.0 8.6 132 BMBx with maturation arrest in myeloid line. No MDS or lymphoma. Neulasta #2 given 04/07/15 38k 32k 9.7 175 04/14/15 2.8 4.9 9.7 129 04/28/15 4.5 3.6 9.3 224 05/05/15 4.2 3.1 9.2 185 06/23/15 4.89 3.7 10.3 181 RADIOLOGY STUDIES: none ASSESSMENT: Myriam Vivas is a delightful 64 y.o. female with Primary Refractory DLBCL. She is 5+ months s/p an Autologous pb stem cell transplant. ?? Autologous stem cell transplant for primary refractory diffuse large B-cell lymphoma - 5+ monthsout - Conditioning regimen: CBV - Day 0 = 12/23/14 - Last month she developed acute onset neutropenia without any identifying cause. Her evaluation was Negative for disease with a negative PET and a negative bone marrow biopsy. All medications were also held. She has received 2 doses of Neulasta, with the 2nd dose given 3 weeks ago. Both her wbc and ANC are normal today with an improvement in both her hgb and plt counts. In retrospect we think this was due to late rituxan effect. ?? Neutropenia - ?? Etiology of acute WBC/ANC drop remains unclear. It has been 4 + weeks since her 2nd Neulasta injection and her wbc/ANC remain normal. ?? every other week CBC. ?? She is back on her acyclovir 800mg bid and we have changed her pjp prophylaxis to monthly inhaled Pentamidine. She is scheduled for a treatment today and will need two more monthly treatments locally. ?? ID - Pentamidine inhalation therapy for PJP prophylaxis completed in early june - Continue Acyclovir 800mg bid x 1 year post transplant. ?? Psychosocial - Depression and Anxiety has been an issue throughout her treatment, and is worse at the current time, especially since we weaned her off of her Lexapro. We will restart the Lexapro at this time while she continues with Ativan prn. Using about 0.25 mg about 3-5 times daily. She is doing great with her ativan usage. ?? Vaccines - Dose #1 Prevnar 13 given in April. We will have Myriam return in 2- 3 mos for dose #2 Prevnar 13 (given at 3, 6, 9 months post transplant) and start her initial series of vaccinations. Due for Prevnar again in June/July at [facility]. ?? Ear pain - resolved ?? Pulmonary - Reviewed reasons to call - fevers, dyspnea, progressive cough. Today lungs are clearand she did not cough at all through the appt. But we talked at length about sx/sx to call for. ?? Weight loss - still not gaining weight. She has lost another 3 lbs since last visit. She has problems with early saiety. I hate to treat this with a pill. She has seen real estate inspector in the past. She is willing to try again. Her biggest problem is that she is so tired and fills up so quickly. If the real estate inspector thinks she needs an appettie stimulant then I am happy to prescribe. ?? Disposition - Great support from friends and Carlos. She has returned to work part-time. 3-4 hours per day. IMMEDIATE PLANS: - CBC only every other Tuesday though June then once in July at [facility] then will determine based on counts and overall recovery - J triage nurses to follow. Will give Neulasta for ANC falls near or below 500 again. If - Continue Lexapro 10mg daily - good effect to date. - Continue ativan 0.25mg tid prn - Continue Acyclovir 800mg bid and continue for one year post transplant. Will continue on penicillin for dental issue. Continue to work with real estate inspector re: weight loss issue. - RTC in July to [facility] for labs, prevnar #2. And to begin initial series of post- transplant vaccinations. This has been scheduled. CC: Belén Griffin MD documented in this encounter Plan of Treatment Upcoming Encounters Date Type Department Care Team (Late st Contact Info) Description 12/07/2023 12:00 PM EDT Office Visit Dermatology at [address] [place] [address] Juan F Chappell MD [facility] DR [place] [address] documented as of this encounter Visit Diagnoses Diagnosis DLBCL (diffuse large B cell lymphoma) Other malignant lymphomas, unspecified site, extranodal and solid organ sites Stem cell donor Examination of participant in clinical trial documented in this encounter Care Teams Track Walker Relationship Specialty Start Date End Date Belén Griffin MD [address] [place] [address] PCP - General Family Medicine 05/07/15 documented as of this encounter
--- OUTSIDE RECORDS SUMMARY | 2023-10-28 00:42 | XMS_ITS | Encounter Summary ---
Author Organization [facility] Address [facility] [place] [address] Care Team Providers Care Semi Automatic Sewing Machine Operator Name Role Phone Belén Griffin MD Primary Care Provider [phone] Reason for Visit * Reason Onset Date Comments Labs Only 06/23/2015 lab tracking Encounter Details Date Type Department Care Team (Late st Contact Info) Description 06/23/2015 Telephone Hematology/Oncology at [address] [phone] Ana Paula Benz RN Labs [...] Encounter - Ana Paula Benz RN - 06/23/2015 8:45 AM EDT LAB TRACKING Diagnosis: Lymphoma LABS ORDERED: CBC every Tuesday Assessment: Patient called and she has tooth ache in right molar. Needs to see dentist, they will not see her until Giancarlo gives OK. Plan: Per Dr. Mondragon pt can have any dental work done that is needed and they are to start her onantibiotics right away there choice and to be generous with them. Labs and note faxed to [facility] dental at [phone]. Pt agrees with plan. DATE WBC HGB/HCT PLTS ANC MEDS/PLAN LOCATION 06/23/15 4.89 10.3/29.6 181k 3.70 Antibiotics per dentist Cbc every catrachito 06/16/15 8.44 10.4/29.9 118K 6.50 CBC every Tuesday at [facility] 06/09/15 1.29 10.5 160k 0.43 Pt will have neulasta 6 mg today Labs again next week. 05/26/15 2.74 10.7 150K 1.81 No Change Labs every other week next due 06/09/15 05/12/15 2.16 9.5/27.7 177K 1.35 No change Labs every other week next due 05/2505/05/15 4.24 9.2/26.7 185k 3.18 Continue as planned Labs at [facility] 05/1104/28/15 4.56 9.3/27.6 224k 3.61 augmentin d/c'd th. 04/[address] [facility] 05/0404/21/15 6.26 9.2/26.4 137k 5.20 Continued as planned [facility] 04/2704/14/15 6.03 9.7/27.6 129k 4.98 continued as planned [facility] 04/20 04/07 38.09 0.7/27.8 175 32.38 Weaning off Lexapro. Continues off Acyclovir and Bactrim [facility] 2.03/31/15 0.98 8.7/24.2 126k .09 Pt to have bone marrow biopsy tue and pet scan see Birgit [facility] 04/0703/24/15 5.36 10.2/28.1 123 4.22 [facility] 17.34 9.6/27.2 89 8.84 [facility] documented in this encounter Plan of Treatment Upcoming Encounters Date Type Department Care Team (Late st Contact Info) Description 12/07/2023 12:00 PM EDT Office Visit Dermatology at [facility] [address] [place] [address] Juan F Chappell MD [facility] [address] [place] [address] documented as of this encounter Visit Diagnoses Not on filedocumented in this encounter Care Teams Semi Automatic Sewing Machine Operator Relationship Specialty Start Date End Date Belén Griffin MD [address] [place] [address] [address] PCP - General Family Medicine 05/07/15 documented as of this encounter
--- OUTSIDE RECORDS SUMMARY | 2023-10-28 00:42 | XMS_ITS | Encounter Summary ---
Author Organization [facility] Address [facility] [place] [address] Care Team Providers Care Dog Raiser Name Role Phone Belén Griffin MD Primary Care Provider [phone] Encounter Details Date Type Department Care Team (Late st Contact Info) Description 05/07/2015 1:30 PM EDT Office Visit Hematology/Oncology at [address] [phone] Kimberly Mondragon MD [facility] DR HEMATOLOGY [place] [address] DLBCL (diffuse large B cell lymphoma); Stem cell donor; Examination of participant in clinical trial; Lymphoma, unspecified lymphoma, unspecified lymphoma region Social History Tobacco Use Types Packs/Day [...] Sign Reading Time Taken Comments Blood Pressure 106/57 05/07/2015 1:22 PM EDT Pulse 98 05/07/2015 1:22 PM EDT Temperature 36.9 ??C (98.4 ??F) 05/07/2015 1:22 PM ED T Respiratory Rate 16 05/07/2015 1:22 PM EDT Oxygen Saturation 100% 05/07/2015 1:22 PM EDT Inhaled Oxygen Concentration - - Weight 55.3 kg (122 lb) 05/07/2015 1:22 PM EDT Height 157.5 cm (5' 2.01) 05/07/2015 1:22 PM ED T Body Mass Index 22.31 05/07/2015 1:22 PM EDT documented in this encounter Progress Notes * Kimberly Mondragon MD - 05/07/2015 12:46 PM EDT Hematology/[place] [address] FOLLOW-UP PATIENT EVALUATION Patient Active Problem List [...] was not informative according to the [employer] agency owner, but the strong BCL2 expression in the absence of MUM1 suggests a germinal center origin via the [employer] agency owner. Lymphoma TB discussion 10/01/14 Recommendations for salvage chemotherapy and autologous stem cell transplant. C#1 RDHAP 10/09/14 With stem cell collection C#2 RDHAP 11/04/14 PET scan negative! 11/25/14 ! ADMIT on 12/17/14 to [facility] for [place]ologous Peripheral BlN/ood Stem Cell Transplant [...] female with Primary Refractory DLBCL. She is 4 months s/p an Autologous peripheral blood stem cell transplant. When she was seen in [facility] last week with respiratory symptoms, she was started on a course of Augmentin(04/15). Shortly after starting this, she developed diarrhea, sometimes having difficulty making it to the bathroom because of its abrupt onset. The Augmentin has also affected her appetite. Lost 8pounds in the last 3 weeks. Her sore throat has been effectively treated and she has been left withresidual intermittent shooting pain along the outer aspect of her left ear. She has never had fevers, shaking chills or a productive cough. She is using Immodium Emotionally, she feels like things are falling apart and out of control. She is back seeing her therapist who believes she should go back on her Lexapro, which we stopped while trying to sort out herneutropenia. Myriam is doing a bit better on the lexapro. Not feeling depressed but she worries about her weight loss and her R ear hurts. No fevers. Dry cough since tuesday. Ear pain conrolled w/ 2 tylenol bid and one tylenol PM at [facility]. [place]th feels good on the ear. She says from the ear down the neck it just does not feel right. Using debrox. Has not tried anti- histamine. No HAs, lightheadedness/dizziness. Breathing is stable. Since the transplant she has lost About 12 #. Has lost 25# since her diagnosis. Her stomach is recovering from the antibiotic. She does get hungry but not eating a Lot. Wakes up hungry but fills up easily. No bleeding. Working 2-3 hours 5days/week but exhuasted once she gets home. MEDICATIONS: Current Outpatient Prescriptions on File Prior to Visit Medication Sig Dispense Refill ??? diphenhydrAMINE-acetaminophen (TYLENOL PM) 25-500 mg Tablet Take by mouth every evening. ??? LORazepam (ATIVAN) 0.5 mg Tablet Take 1 tablet by mouth every 6 hours as needed for Anxiety. 30tablet 1 ??? escitalopram oxalate (LEXAPRO) 10 mg Tablet Take 1 tablet by mouth daily. 30 tablet 12 ??? ondansetron (ZOFRAN) 8 mg Tablet Take 1 tablet by mouth every 8 hours as needed for Nausea. 20 tablet 3 ??? [DISCONTINUED] amoxicillin-clavulanate (AUGMENTIN) 875-125 mg Tablet Take 1 tablet by mouth 2 times daily. 20 tablet 0 ??? [DISCONTINUED] diphenhydrAMINE/aluminum-magnesium hydroxide/lidocaine (BMX) 1:1:1 Oral Suspension Take 5 mLs by mouth 4 times daily as needed. Apply to mouth ulcers as needed. 100 mL 3 ??? hydrocortisone 1 % Cream Apply topically 4 times daily. Preparation-H. To hemorrhoids for discomfort 30 g 0 ??? [DISCONTINUED] prochlorperazine (COMPAZINE) 10 mg Tablet Take 1 tablet by mouth every 6 hours as needed for Nausea. 30 tablet 1 ??? docusate sodium (COLACE) 100 mg Capsule Take 100 mg by mouth 2 times daily. ??? senna (SENOKOT) 8.6 mg Tablet Take 1 tablet by mouth daily. No current facility-administered medications on file prior to visit. ALLERGIES: Allergies Allergen Reactions ??? Levofloxacin Other (See Comments) tendonitis ??? Tegaderm [Transparent Dressings] Other (See Comments) Unsure if actual allergy, please try [id number] Skin tears/rawness ??? Vancomycin Itching and Dermatitis Sarah's syndrome. Slow infusion for any upcoming doses. Broke out in maculopapular pruritic dermatitis on abdomen, chest, forehead and upper back. INTERIM SOCIAL HISTORY: Changes in job, home situation, tobacco or alcohol use: She has returned to work CHANGES IN RELEVANT FAMILY HISTORY: ROS Energy level:stable Pain: No Appetite:good Fevers/chills/sweats:No Bruising/bleeding/melena:No Recent infections:No [...] anxiety Sleep: Difficulty sleeping PHYSICAL EXAM: BP 106/57 mmHg Pulse 98 Temp(Src) 36.9 ??C (98.4 ??F) (Oral) Resp 16 Ht 157.5 cm (5' 2.01) Wt 55.339 kg (122 lb) BMI 22.31 kg/m2 SpO2 100% GENERAL: Myriam Vivas is in mild distress. Teary. Accompanied by significant other. 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 No MDS or lymphoma. Neulasta #2 given 04/07/15 38k 32k 9.7 175 04/14/15 2.8 4.9 9.7 129 04/28/15 4.5 3.6 9.3 224 05/05/15 4.2 3.1 9.2 185 RADIOLOGY STUDIES: none ASSESSMENT: Myriam Vivas is a delightful 64 y.o. female with Primary Refractory DLBCL. She is 4+ months s/p an Autologous pb stem cell transplant. ?? Autologous stem cell transplant for primary refractory diffuse large B-cell lymphoma - 4+ monthsout - Conditioning regimen: CBV - Day [...] injection and her wbc/ANC remain normal. ?? CBC on 05/01 and if normal then can go to every other week CBC. ?? She is back on her acyclovir 800mg bid and we have changed her pjp prophylaxis to monthly inhaled Pentamidine. She is scheduled for a treatment today and will need two more monthly treatments locally. ?? ID - Recovering from a recent URI. The Augmentin that she is completing has caused significant diarrhea and loss of appetite. She has already completed 9 of the 10 day course, therefore, I have stopped this medication. - Pentamidine inhalation therapy for PJP prophylaxis today and monthly x 2 more treatments. Next due 05/22/15 at [facility] - Continue Acyclovir 800mg bid x 1 [...] ?? Vaccines - Dose #1 Prevnar 13 today. We will have Myriam return in 3 months for dose #2 Prevnar 13 (given at 3, 6, 9 months post transplant) and start her initial series of vaccinations. Due for Prevnar again in June/July. ?? Ear pain - exam is completely normal except for wax in R ear. SHe has been using debrox at home.We called PCP and they kindly got her in for removal tomorrow. I think that is the cause. Neck and OP exam is all normal. No bad teeth. She will call us if the was removal does not help. ?? Pulmonary - dry couhg. Reviewed reasons to call - fevers, dyspnea, progressive cough. Today lungs are clear and she did not cough at all through the appt. But we talked at length about sx/sx to call for. ?? Disposition - Great support from friends and Carlos. She has returned to work part-time. 2-3 hours per day. Going to [place] for the weekend. IMMEDIATE PLANS: - CBC only every Tuesday - [facility] triage nurses to follow. Will give Neulasta for ANC falls near or below 500 again. If - Continue Lexapro 10mg daily - Continue ativan 0.25mg tid prn - Pentamidine inhalation therapy today. She will need two more monthly treatments which have been arranged at [facility]. Next scheduled on 05/22/15. - Continue Acyclovir 800mg bid and continue for one year post transplant. - PCP kindly fit her in [facility] for wax removal of R ear. - Appt with Dr. Mondragon on 05/21/15 - RTC in July to [facility] for labs, prevnar #2. And to begin initial series of post- transplant vaccinations. CC: Belén Griffin MD documented in this encounter Plan of Treatment Upcoming Encounters Date Type Department Care Team (Late st Contact Info) Description 12/07/2023 12:00 PM EDT Office Visit Dermatology at [address] [place] [address] Juan F Chappell MD [facility] DR RANDEE [place] [address] documented as of this encounter Visit Diagnoses Diagnosis DLBCL (diffuse large B cell lymphoma) Other malignant lymphomas, unspecified site, extranodal and solid organ sites Stem cell donor Examination of participant in clinical trial Lymphoma, unspecified lymphoma, unspecified lymphoma region documented in this encounter Care Teams Dog Raiser Relationship Specialty Start Date End Date Belén Griffin MD [address] [place] [address] PCP - General Family Medicine 05/07/15 documented as of this encounter
--- OUTSIDE RECORDS SUMMARY | 2023-10-28 00:42 | XMS_ITS | Encounter Summary ---
Author Organization [facility] Address [facility] [place] [address] Care Team Providers Care Chief Of Hospital Medicine Name Role Phone Belén Griffin MD Primary Care Provider [phone] Encounter Details Date Type Department Care Team (Late st Contact Info) Description 09/19/2015 Orders Only [place] [address] Brenda Meyer Social History Tobacco Use Types Packs/Day Years [...] 12:00 PM EDT Office Visit Dermatology at [facility] [address] [place] [address] Juan F Chappell MD [facility] DR RAN[place] [address] documented as of this encounter Visit Diagnoses Not on filedocumented in this encounter Care Teams Chief Of Hospital Medicine Relationship Specialty Start Date End Date Belén Griffin MD [address] [place] [address] PCP - General Family Medicine 05/07/15 documented as of this encounter
--- OUTSIDE RECORDS SUMMARY | 2023-10-28 00:42 | XMS_ITS | Encounter Summary ---
Author Organization [facility] Address [facility] [address] Care Team Providers Care Highway Worker Name Role Phone Belén Griffin MD Primary Care Provider [phone] Encounter Details Date Type Department Care Team (Latest Contact Info) Description 08/28/2015 11:03 AM EDT Hospital Encounter [place]ematology [place] [phone] Lymphoma, unspecified body region, unspecified lymphoma type (Primary Dx); Other malignant lymphomas, unspecified site, extranodal and solid organ sites; Hypokalemia; Status post autologous bone marrow transplant; DLBCL (diffuse large B cell lymphoma); Stem [...] Notes * Vonda Stanley RN - 08/28/2015 11:41 AM EDT Patient Name: Myriam Vivas Patient Age: 64 y.o. Birthdate: 1950 Admit date: 08/28/2015 Attending Physician: No att. providers found Access visit. See MAR and/or flowsheet. documented in this encounter Plan of Treatment Upcoming Encounters Date Type Department Care Team (Late st Contact Info) Description 12/07/2023 12:00 PM EDT Office Visit Dermatology at [address] [place] [address] Juan F Chappell MD [facility] DR RAN[place] [address] Scheduled Orders Name Type Priority Associated Diagnoses Orde r Schedule CBC (with Diff) Lab STAT Other malignant lymphomas, unspecified site, extranodal and solid organ sites 1 Occurrences starting 08/28/2015 until 08/28/2015 documented as of this encounter Procedures Procedure Name Priority Date/Time Associated Diagnosis Comments HEMOGRAM STAT 08/28/2015 11:40 AM EDT 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 Examination of participant in clinical trial DIFFERENTIAL, AUTOMATED STAT 08/28/2015 11:40 AM EDT 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 Examination of participant in clinical trial CBC (WITH DIFF) STAT 08/28/2015 11:40 AM EDT 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 Examination of participant in clinical trial documented in this encounter Results * (ABNORMAL) Differential, Automated (08/28/2015 11:40 AM EDT) Neutrophil % 54.9 % [facility] Neutrophil Absolute 1.68 1.50 - 6.30 x10(3)/mc L [facility] Lymph % 26.8 % [facility] Lymphocytes Abs 0.8(L) 1.0 - 3.6 x10(3)/mc L [facility] Monocyte % 13.7 % [facility] Monocyte Abs 0.4 0.2 - 1.0 x10(3)/mc L [facility] Eos % 3.9 % [facility] Eosinophils Abs 0.1 0.0 - 0.5 x10(3)/mc L [facility] Basophil % 0.7 % [facility] Baso Absolute 0.0 0.0 - 0.2 x10(3)/[facility] Immature Gran % 0.00 % [facility] Comment: Immature granulocytes(IG's)percentage and absolute count will include metamyelocytes, myelocytes, and promyelocytes. Blood smears from CBCs yielding IG's will be scanned manually for concordance. If this scan disagrees with the automated IG or if promyelocytes are noted, a manual differential will be performed. Immature Gran Absolute 0.00 0.00 - 0.05 x10(3)/[facility] Blood specimen (specimen) 08/28/2015 11:40 AM EDT 08/28/2015 11:47 AM EDT Narrative Resulting Agency Comment Spec In Lab Kimberly Mondragon MD HEMATOLOGY ORDER AYO [facility] [place] [address] * (ABNORMAL) Hemogram (08/28/2015 11:40 AM EDT) White Blood Cell 3.1(L) 4.0 - 10.0 x10(3)/[facility] Red Blood Cell 3.12(L) 3.93 - 5.22 x10(6)/[facility] Hemoglobin 10.7(L) 11.2 - 15.7 gm/dL [facility] Hematocrit 29.5(L) 34.0 - 45.0 % [facility] Mean Cell Volume 94.6(H) 79.0 - 94.0 fL [facility] Mean Cell Hemoglobin 34.3(H) 26.6 - 32.2 pg [facility] Mean Cell Hemoglobin Concentration 36.3 32.0 - 36.5 gm/dL [facility] Platelet 142(L) 145 - 370 x10(3)/[facility] RDW Standard Deviation 42.3 35.0 - 46.0 fL [facility] RDW coefficient of variation 12.5 10.9 - 14.4 % [facility] Mean Platelet Volume 8.5(L) 9.0 - 12.0 fL [facility] Blood specimen (specimen) 08/28/2015 11:40 AM EDT 08/28/2015 11:47 AM EDT Narrative Resulting Agency Comment Spec In Lab Kimberly Mondragon MD HEMATOLOGY ORDER AYO [facility] [place] [place] [address] documented in this encounter Visit Diagnoses Diagnosis Lymphoma, unspecified body region, unspecified lymphoma type- Primary Other malignant lymphomas, unspecified site, extranodal and solid organ sites Hypokalemia Hypopotassemia Status post autologous bone marrow transplant Bone marrow replaced by transplant DLBCL (diffuse large B cell lymphoma) Other malignant lymphomas, unspecified site, extranodal and solid organ sites Stem cell donor Examination of participant in clinical trial documented in this encounter Administered Medications Inactive Administered Medications - up to 3 most recent administrations Medication Order MAR Action Action Date Dose Rate Site heparin, porcine 100 unit/mL flush 500 Units 500 Units, Intravenous, ONCE, 1 dose, On Cece 08/28/15 at 1145, Routine Given 08/28/2015 11:32 AM EDT 500 Units sodium chloride 0.9 % flush 20 mL 20 mL, Intravenous, CONTINUOUS PRN, 100 doses, Starting on Cece 08/28/15 at 1124, Until Tue08/29/15 at 0435, Recovery Operator, Routine New Bag 08/28/2015 11:31 AM EDT 20 mLs documented in this encounter Care Teams Highway Worker Relationship Specialty Start Date End Date Belén Griffin MD [address] [place] [address] PCP - General Family Medicine 05/07/15 documented as of this encounter
--- OUTSIDE RECORDS SUMMARY | 2023-10-28 00:42 | XMS_ITS | Encounter Summary ---
Author Organization [facility] Address [facility] [place] [address] Care Team Providers Care Second Baker Name Role Phone Belén Griffin MD Primary Care Provider [phone] Reason for Visit * Reason Onset Date Comments Labs Only 05/12/2015 lab tracking Encounter Details Date Type Department Care Team (Late st Contact Info) Description 05/12/2015 Telephone Hematology/Oncology at [address] [address] Ana Paula Benz RN Labs [...] Encounter - Ana Paula Benz RN - 05/12/2015 10:02 AM EDT LAB TRACKING Diagnosis: Lymphoma LABS ORDERED: CBC every other mondays MEDICATIONS: Assessment: Dr. miller reviewed labs Plan: labs every other week per JORDIN miller inf room notified , pt quite excited. DATE WBC HGB/HCT PLTS ANC MEDS/PLAN LOCATION 05/12/15 6.03 9.7/27.6 129k 4.98 No change Labs every other week next due 05/2505/05/15 4.24 9.2/26.7 185k 3.18 Continue as planned Labs at [facility] 05/1104/28/15 4.56 9.3/27.6 224k 3.61 augmentin d/c'd th. 04/23 [facility] 05/0404/21/15 6.26 9.2/26.4 137k 5.20 Continued as planned [facility] 04/2704/14/15 6.03 9.7/27.6 129k 4.98 continued as planned [facility] 04/20 04/07 38.09 0.7/27.8 175 32.38 Weaning off Lexapro. Continues off Acyclovir and Bactrim [facility] .03/31/1601 0.98 8.7/24.2 126k .09 Pt to have bone marrow biopsy wed and pet scan Th see Giancarlo after [facility] 04/0703/24/15 5.36 10.2/28.1 123 4.22 [facility] 17.34 9.6/27.2 89 8.84 [facility] documented in this encounter Plan of Treatment Upcoming Encounters Date Type Department Care Team (Late st Contact Info) Description 12/07/2023 12:00 PM EDT Office Visit Dermatology at [facility] [address] [place] [address] Juan F Chappell MD [facility] DR [address] [place] [address] documented as of this encounter Visit Diagnoses Not on filedocumented in this encounter Care Teams Second Baker Relationship Specialty Start Date End Date Belén Griffin MD [address] [place] [address] PCP - General Family Medicine 05/07/15 documented as of this encounter
--- OUTSIDE RECORDS SUMMARY | 2023-10-28 00:42 | XMS_ITS | Encounter Summary ---
Author Organization [facility] Address [facility] [place] [address] Care Team Providers Care Lace Stripper Name Role Phone Belén Griffin MD Primary Care Provider Reason for Visit * Reason Onset Date Comments Labs Only 07/29/2015 Lab Tracking Encounter Details Date Type Department Care Team (Late st Contact Info) Description 07/29/2015 Telephone Hematology Oncology at [address] [address] Faustina Soto RN Labs Only [...] Telephone Encounter - Faustina Soto RN - 07/29/2015 10:56 AM EDT LAB TRACKING Myriam Vivas Diagnosis: Lymphoma LABS ORDERED: CBC every other Tuesday Assessment: Labs sent to Dr. Mondragon for review. Plan: Every other Tuesday labs at [facility]. DATE WBC HGB/HCT PLTS ANC MEDS/PLAN LOCATION 07/29/15 3.1 10.4/29.3 144K 2.04 Extra week Lab Tracking, met with LIDIA at [facility] today Labs were drawn[facility] 07/21/15 2.99 10.7/30.2 168k 1.88 Meet with Giancarlo at [facility] 07/28 Labs every other Félix @ [facility] 07/07/15 3.24 10.4/30.2 185k 2.13 Labs every other week [facility] 06/30/15 3.82 10.3/29.1 180 2.53 CBC q tuesday [facility] 06/23/15 4.89 10.3/29.6 181k 3.70 Antibiotics per dentist Cbc every tuesday06/16/15 8.44 10.4/29.9 118K 6.50 CBC every Tuesday at [facility] 06/09/15 1.29 10.5 160k 0.43 Pt will have neulasta 6 mg today Labs again next week. 05/26/15 2.74 10.7 150K 1.81 No Change Labs every other week next due 06/09/15 05/12/15 2.16 9.5/27.7 177K 1.35 No change Labs every other week next due 05/2505/05/15 4.24 9.2/26.7 185k 3.18 Continue as planned Labs at [facility] 05/1104/28/15 4.56 9.3/27.6 224k 3.61 augmentin d/c'd th. 04/23 [facility] 05/0404/21/15 6.26 9.2/26.4 137k 5.20 Continued as planned [facility] 04/2704/14/15 6.03 9.7/27.6 129k 4.98 continued as planned [facility] 04/20 04/07 38.09 0.7/27.8 175 32.38 Weaning off Lexapro. Continues off Acyclovir and Bactrim [facility] .03/31/15 0.98 8.7/24.2 126k .09 Pt to have bone marrow biopsy tue and pet scan Th see Birgit [facility] 04/0703/24/15 5.36 10.2/28.1 123 4.22 [facility] 17.34 9.6/27.2 89 8.84 [facility] documented in this encounter Plan of Treatment Upcoming Encounters Date Type Department Care Team (Late st Contact Info) Description 12/07/2023 12:00 PM EDT Office Visit Dermatology at [facility] [address] [place] [address] Juan F Chappell MD [facility] DR [address] [address] documented as of this encounter Visit Diagnoses Not on filedocumented in this encounter Care Teams Lace Stripper Relationship Specialty Start Date End Date Belén Griffin MD [address] [place] [address] PCP - General Family Medicine 05/07/15 documented as of this encounter
--- OUTSIDE RECORDS SUMMARY | 2023-10-28 00:42 | XMS_ITS | Encounter Summary ---
Author Organization [facility] Address [facility] [place] [address] Care Team Providers Care Sand Conditioner Machine Name Role Phone Belén Griffin MD Primary Care Provider [phone] Reason for Visit * Reason Onset Date Comments Labs Only 08/28/2015 Encounter Details Date Type Department Care Team (Late st Contact Info) Description 08/28/2015 Telephone Hematology Oncology at [address] [phone] Dana Sanchez I, RN Labs [...] Notes * Telephone Encounter - Dana Sanchez I RN - 08/28/2015 3:04 PM EDT LAB TRACKING Myriam Vivas Diagnosis: Lymphoma LABS ORDERED: CBC once a month Assessment: Labs sent to Dr. Mondragon for review. Plan: Change lab to once a month DATE WBC HGB/HCT PLTS ANC MEDS/PLAN LOCATION 08/27 3.1 10.7/29.5 142k 1,68 Follow up with EMB at [facility] on 10/01. Post transplant vaccines Lab once a month Next due at [facility] 10/0107/29/15 3.1 10.4/29.3 144K 2.04 Extra week Lab Tracking, met with LIDIA at [facility] today Labs were drawnat [facility] 07/21/15 2.99 10.7/30.2 168k 1.88 Meet with Giancarlo at [facility] 07/28 Labs every other Félix @ [facility] 07/07/15 3.24 10.430.2 185k 2.13 Labs every other week [facility] 06/30/15 3.82 10.3/29.1 180 2.53 CBC q tuesday [facility] 06/23/15 4.89 10.329.6 181k 3.70 Antibiotics per dentist Cbc every tuesday06/16/15 8.44 10.4/29.9 118K 6.50 CBC every Tuesday at [facility] 06/09/15 1.29 10.5 160k 0.43 Pt will have neulasta 6 mg today Labs again next week. 05/26/15 2.74 10/28.7 150K 1.81 No Change Labs every other week next due 06/09/15 05/12/15 2.16 9.5/27.7 177K 1.35 No change Labs every other week next due 05/2505/05/15 4.24 9.2/26.7 185k 3.18 Continue as planned Labs at [facility] 05/1104/28/15 4.56 9.3/27.6 224k 3.61 augmentin d/c'd th. 04/23 [facility] 05/0404/21/15 6.26 9.2/26.4 137k 5.20 Continued as planned [facility] 04/2704/14/15 6.03 9.7/27.6 129k 4.98 continued as planned [facility] 04/20 04/07 38.09 0.7/27.8 175 32.38 Weaning off Lexapro. Continues off Acyclovir and Bactrim [facility] 2.29 03/31/15 0.98 8.7/24.2 126k .09 Pt to have bone marrow biopsy wed and pet scan see Birgit [facility] 04/0703/24/15 5.36 10.2/28.1 123 4.22 [facility] 17.34 9.6/27.2 89 8.84 [facility] documented in this encounter Plan of Treatment Upcoming Encounters Date Type Department Care Team (Late st Contact Info) Description 12/07/2023 12:00 PM EDT Office Visit Dermatology at [facility] [address] [place] [address] Juan F Chappell MD [facility] [address] [address] documented as of this encounter Visit Diagnoses Not on filedocumented in this encounter Care Teams Sand Conditioner Machine Relationship Specialty Start Date End Date Belén Griffin MD [address] [place] [address] [address] [place] [address] PCP - General Family Medicine 05/07/15 documented as of this encounter
--- OUTSIDE RECORDS SUMMARY | 2023-10-28 00:42 | XMS_ITS | Encounter Summary ---
Author Organization [facility] Address [facility] [place] [address] Care Team Providers Care Radial Drill Press Set Up Operator Name Role Phone Belén Griffin MD Primary Care Provider [phone] Encounter Details Date Type Department Care Team (Latest Contact Info) Description 07/29/2015 9:38 AM EDT Hospital Encounter [place]ology [place] [phone] DLBCL (diffuse large B cell lymphoma); Status post autologous bone marrow transplant; Hypokalemia; Stem cell donor; Examination of participant in [...] as of this encounter Progress Notes * Aileen Méndez RN - 07/29/2015 9:54 AM EDT Patient Name: Myriam Vivas Patient Age: 64 y.o. Birthdate: 1950 Admit date: 07/29/2015 Attending Physician: No att. providers found Access visit. See MAR and/or flowsheet. documented in this encounter Plan of Treatment Upcoming Encounters Date Type Department Care Team (Late st Contact Info) Description 12/07/2023 12:00 PM EDT Office Visit Dermatology at [facility] [address] [place] [address] Juan F Chappell MD [facility] DR [address] [address] documented as of this encounter Procedures Procedure Name Priority Date/Time Associated Diagnosis Comments HEMOGRAM STAT 07/29/2015 9:30 AM EDT 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 Examination of participant in clinical trial DIFFERENTIAL, AUTOMATED STAT 07/29/2015 9:30 AM EDT 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 Examination of participant in clinical trial CBC (WITH DIFF) STAT 07/29/2015 9:30 AM EDT 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 Examination of participant in clinical trial LACTATE DEHYDROGENASE STAT 07/29/2015 9:30 AM EDT 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 Examination of participant in clinical trial COMPREHENSIVE METABOLIC PANEL STAT 07/29/2015 9:30 AM EDT 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 Examination of participant in clinical trial documented in this encounter Results * (ABNORMAL) Differential, Automated (07/29/2015 9:30 AM EDT) Neutrophil % 65.9 % [facility] Neutrophil Absolute 2.04 1.50 - 6.30 x10(3)/mc L [facility] Lymph % 18.7 % [facility] Lymphocytes Abs 0.6(L) 1.0 - 3.6 x10(3)/mc L [facility] Monocyte % 10.3 % [facility] Monocyte Abs 0.3 0.2 - 1.0 x10(3)/mc L [facility] Eos % 4.5 % [facility] Eosinophils Abs 0.1 0.0 - 0.5 x10(3)/[facility] Basophil % 0.6 % [facility] Baso Absolute 0.0 0.0 - 0.2 x10(3)/[facility] Immature Gran % 0.00 % [facility] Comment: Immature granulocytes(IG's)percentage and absolute count will include metamyelocytes, myelocytes, and promyelocytes. Blood smears from CBCs yielding IG's will be scanned manually for concordance. If this scan disagrees with the automated IG or if promyelocytes are noted, a manual differential will be performed. Immature Gran Absolute 0.00 0.00 - 0.05 x10(3)/[facility] Blood specimen (specimen) 07/29/2015 9:30 AM EDT 07/29/2015 10:05 AM EDT Narrative Resulting Agency Comment Spec In Lab Kimberly Mondragon MD HEMATOLOGY ORDER AYO [facility] [place] [address] * (ABNORMAL) Hemogram (07/29/2015 9:30 AM EDT) White Blood Cell 3.1(L) 4.0 - 10.0 x10(3)/[facility] Red Blood Cell 3.10(L) 3.93 - 5.22 x10(6)/[facility] Hemoglobin 10.4(L) 11.2 - 15.7 gm/dL [facility] Hematocrit 29.3(L) 34.0 - 45.0 % [facility] Mean Cell Volume 94.5(H) 79.0 - 94.0 fL [facility] Mean Cell Hemoglobin 33.5(H) 26.6 - 32.2 pg [facility] Mean Cell Hemoglobin Concentration 35.5 32.0 - 36.5 gm/dL [facility] Platelet 144(L) 145 - 370 x10(3)/ L [facility] RDW Standard Deviation 45.5 35.0 - 46.0 fL [facility] RDW coefficient of variation 13.2 10.9 - 14.4 % [facility] Mean Platelet Volume 8.8(L) 9.0 - 12.0 fL [facility] Blood specimen (specimen) 07/29/2015 9:30 AM EDT 07/29/2015 10:05 AM EDT Narrative Resulting Agency Comment Spec In Lab Kimberly Mondragon MD HEMATOLOGY ORDER AYO Performing Organization Address City/[facility]/ZIP Co de Phone Number [facility] [place] [address] * Lactate Dehydrogenase (07/29/2015 9:30 AM EDT) [facility] Lactate Dehydrogenase 184 110 - 220 unit/L [facility] Blood specimen (specimen) 07/29/2015 9:30 AM EDT 07/29/2015 10:05 AM EDT Narrative Resulting Agency Comment Spec In Lab Kimberly Mondragon MD CHEMISTRY ORDERA BLES Performing Organization Address [facility] Co de Phone Number [facility] [address] * (ABNORMAL) Comprehensive metabolic panel (non-fasting) (07/29/2015 9:30 AM EDT) Glucose 114 65 - 199 mg/dL [facility] Comment:Diabetes: >=200 mg/d L plus symptoms Blood Urea Nitrogen 22(H) 8 - 18 mg/dL [facility] Creatinine 1.00 0.70 - 1.20 mg/dL [facility] Comment: Please note that the pediatric reference intervals supplied above were not validated at [facility]. Results from pediatric patients should be interpreted in conjunction to the patient's age, height and muscle mass. Sodium 145 135 - 145 mmol/L [facility] Potassium 3.8 3.5 - 5.0 mmol/L [facility] Comment: Please note: ??Patients with WBC >100,000 may have falsely elevated Potassium levels. ??For accurate Potassium quantification in these patients send serum separator tube (gold top) for subsequent determinations. ??Contact the Clinical Chemistry Laboratory if there are any questions. Chloride 104 98 - 107 mmol/L [facility] Carbon Dioxide 28 22 - 31 mmol/L [facility] Anion Gap 13 5 - 15 mmol/L [facility] Calcium 9.6 8.5 - 10.5 mg/dL [facility] Protein, Total 6.5 6.1 - 8.0 gm/dL [facility] Albumin 4.5 3.2 - 5.2 gm/dL [facility] Aspartate Aminotransferase 20 0 - 30 unit/L [facility] Alanine Aminotransferase 23 0 - 30 unit/L [facility] Alkaline Phosphatase 86 40 - 104 unit/L [facility] Bilirubin, Total 0.8 0.2 - 1.3 mg/dL [facility] Bilirubin, Direct 0.2 0.0 - 0.3 mg/dL [facility] Est Glomerular Filtration Rate 56(L) >=60 [facility] Comment: This estimated GFR (eGFR) [...] the following links into your internet browser. [email or web address] Blood specimen (specimen) 07/29/2015 9:30 AM EDT 07/29/2015 10:05 AM EDT Narrative Resulting Agency Comment Spec In Lab Kimberly Mondragon MD CHEMISTRY ORDERA [facility] [place] [address] documented in this encounter Visit Diagnoses Diagnosis DLBCL (diffuse large B cell lymphoma) Other malignant lymphomas, unspecified site, extranodal and solid organ sites Status post autologous bone marrow transplant Bone marrow replaced by transplant Hypokalemia Hypopotassemia Stem cell donor Examination of participant in clinical trial documented in this encounter Administered Medications Inactive Administered Medications - up to 3 most recent administrations Medication Order MAR Action Action Date Dose Rate Site heparin, porcine 100 unit/mL flush 500 Units 500 Units, Intravenous, ONCE, 1 dose, On e 07/29/15 at 0930, Routine Given 07/29/2015 9:53 AM EDT 500 Units sodium chloride 0.9 % flush 20 mL 20 mL, Intravenous, CONTINUOUS PRN, 1 dose, Starting on Tue07/29/15 at 0900, Until Tue07/29/15 at 0953, Wound/Ostomy Clinical Nurse Specialist, Routine New Bag 07/29/2015 9:53 AM EDT 20 mLs documented in this encounter Care Teams Radial Drill Press Set Up Operator Relationship Specialty Start Date End Date Belén Griffin MD [address] [place] [address] PCP - General Family Medicine 05/07/15 documented as of this encounter
--- OUTSIDE RECORDS SUMMARY | 2023-10-28 00:42 | XMS_ITS | Encounter Summary ---
Author Organization Count Includes [facility] Address [facility] [place] [address] Care Team Providers Care Soa Engineer Name Role Phone Belén Griffin MD Primary Care Provider [phone] Reason for Referral * Diagnostic Test (Routine) - Closed Specialty Diagnoses / Procedures Referred By Perry cabrera Referred To Contact Radiology Diagnoses Lymphoma, unspecified body region, unspecified lymphoma type Procedures CT Chest, Abdomen, & Pelvis With Contrast (GENERIC) Kimberly Mondragon MD [facility] [address] [place] [address] [facility] [place] [address] Referral ID Status Reason Start Date Expiration Date V isits Requested Visits Authorized [id number] Closed Specialty Service Requested 12/19/2015 03/18/2016 1 1 * Diagnostic Test (Routine) - Closed Specialty Diagnoses / Procedures Referred By Perry cabrera Referred To Contact Radiology Diagnoses Lymphoma, unspecified body region, unspecified lymphoma type Procedures IR Removal of Mediport Kimberly Mondragon MD [facility] [place] [address] [facility] [place] [address] Referral ID Status Reason Start Date Expiration Date V isits Requested Visits Authorized [id number] Closed Specialty Service Requested 01/02/2016 01/01/2017 1 1 Reason for Visit * Reason Comments Follow-up Encounter Details Date Type Department Care Team (Late st Contact Info) Description 10/02/2015 11:30 AM EDT Office Visit Hematology [place] [address] Kimberly Mondragon MD [facility] DR HEMATOLOGY AND ONCOLOGY [place] [id number] Lymphoma, unspecified body region, unspecified lymphoma type Social History Tobacco Use Types Packs/Day Years [...] Sign Reading Time Taken Comments Blood Pressure 110/56 10/02/2015 11:48 AM EDT Pulse 81 10/02/2015 11:48 AM EDT Temperature 36.4 ??C (97.5 ??F) 10/02/2015 11:48 AM E DT Respiratory Rate 16 10/02/2015 11:48 AM EDT Oxygen Saturation 99% 10/02/2015 11:48 AM EDT Inhaled Oxygen Concentration - - Weight 56 kg (123 lb 6.4 oz) 10/02/2015 11:48 AM EDT Height 157.5 cm (5' 2.01) 10/02/2015 11:48 AM E DT Body Mass Index 22.56 10/02/2015 11:48 AM EDT documented in this encounter Progress Notes * Kimberly Mondragon MD - 10/02/2015 11:30 AM EDT Hematology/BMT Clinic [place] [address] FOLLOW-UP PATIENT EVALUATION Patient Active Problem List [...] was not informative according to the Bassem mainframe programmer analyst, but the strong BCL2 expression in the absence of MUM1 suggests a germinal center origin via the Muris mainframe programmer analyst. Lymphoma TB discussion 10/01/14 Recommendations for salvage chemotherapy and autologous stem cell transplant. C#1 RDHAP 10/09/14 With stem cell collection C#2 RDHAP 11/04/14 PET scan negative! 11/25/14 ! 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 She is 9 Months (01/02/2015) s/p an Autologous peripheral blood stem cell transplant. Here for a 3 months followup. Doing ok. Still gets tired and takes a nap after five hours of work. Energy is improved overall. Naps once/day. Working 5 days/week. She is fine through work and then collapses when she finally relaxes. No B symptoms. No palpable adenopathy. Emotionally she is having a difficult time with accusations about the behavior of her ex-, and this has been very stressful. Remains on Lexapro Weight stable. No pain. No bleeding. He is still with [employer]. Her ex- was arrested. She is going to the cancer survivor [employer] camp. She needed more ativan during this time - Dr Griffin is helping her with this. MEDICATIONS: Current Outpatient Prescriptions on File Prior to Visit Medication Sig Dispense Refill ??? LORazepam (ATIVAN) 0.5 mg Tablet Take 1 tablet by mouth every 6 hours as needed for Anxiety. 50tablet 1 ??? diphenhydrAMINE-acetaminophen (TYLENOL PM) 25-500 mg Tablet Take by mouth every evening. ??? senna (SENOKOT) 8.6 mg Tablet Take 1 tablet by mouth daily. ??? escitalopram (LEXAPRO) 10 mg Tablet Take 10 mg by mouth daily. ??? acetaminophen (TYLENOL) 500 mg Tablet Take 1,000 mg by mouth every 6 hours as needed for Pain. ??? escitalopram oxalate (LEXAPRO) 10 mg Tablet Take 1 tablet by mouth daily. 30 tablet 12 No current facility-administered medications on file prior to visit. ALLERGIES: Allergies Allergen Reactions ??? Levofloxacin Other (See Comments) tendonitis ??? Tegaderm [Transparent Dressings] Other (See Comments) Unsure if actual allergy, please try [id number] Skin tears/rawness ??? Vancomycin Itching and Dermatitis Sarah's syndrome. Slow infusion for any upcoming doses. Broke out in maculopapular pruritic dermatitis on abdomen, chest, forehead and upper back. 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 CHANGES IN RELEVANT FAMILY HISTORY: ROS Energy [...] anxiety Sleep: Difficulty sleeping PHYSICAL EXAM: BP 110/56 (Patient Position: Sitting) Pulse 81 Temp 36.4 ??C (97.5 ??F) (Temporal) Resp 16 Ht 157.5cm (5' 2.01) Wt 56 kg (123 lb 6.4 oz) SpO2 99% BMI 22.56 kg/m2 GENERAL: Myriam Vivas is in mild distress. Comes to the appointment alone. HEENT: Oral mucosa is clear. Neck: Supple Lungs: Clear breath sounds bilaterally Heart: Regular rate and rhythm without murmur Abdomen: Soft, nontender and no organomegaly Skin: No rash Extremity: shows no edema Muskuloskeletal: Walks slowly and deliberately. Neuro: A+O x 3 Psychiatric: Teary, depressed LABORATORY STUDIES: Lab Results Component Value Date WBC 4.3 10/02/2015 WBC 3.1 (L) 08/28/2015 RBC 3.10 (L) 10/02/2015 RBC 3.12 (L) 08/28/2015 HGB 10.3 (L) 10/02/2015 HGB 10.7 (L) 08/28/2015 HCT 29.9 (L) 10/02/2015 HCT 29.5 (L) 08/28/2015 MCV 96.5 (H) 10/02/2015 MCV 94.6 (H) 08/28/2015 MCH 33.2 (H) 10/02/2015 MCH 34.3 (H) 08/28/2015 MCHC 34.4 10/02/2015 MCHC 36.3 08/28/2015 PLATELET 173 10/02/2015 PLATELET 142 (L) 08/28/2015 RDWCV 12.2 10/02/2015 RDWCV 12.5 08/28/2015 NA 142 10/02/2015 NA 145 07/29/2015 K 4.1 10/02/2015 K 3.8 07/29/2015 CL 102 10/02/2015 CL 104 07/29/2015 CO2 27 10/02/2015 CO2 28 07/29/2015 BUN 22 (H) 10/02/2015 BUN 22 (H) 07/29/2015 CREATININE 0.90 10/02/2015 CREATININE 1.00 07/29/2015 GLUCOSE 96 10/02/2015 GLUCOSE 114 07/29/2015 CALCIUM 9.7 10/02/2015 CALCIUM 9.6 07/29/2015 LDH 175 10/02/2015 LDH 184 07/29/2015 Results for MYRIAM VIVAS ( ) as of 08/05/2015 15:08 Ref. Range 07/29/2015 09:30 Neutr Abs (ANC) Latest Ref Range: 1.50 - 6.30 x10(3)/mcL 2.04 RADIOLOGY STUDIES: none ASSESSMENT: Myriam Vivas is a delightful 64 y.o. female with Primary Refractory DLBCL. She is +9 months s/p an Autologous pb stem cell transplant. ?? 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 It has been four months since she needed a dose of Neulasta. She is leukopenic today(stable), but not neutropenic. No focal s/s of infection. ?? ID - No focal s/s of [...] a therapist. ?? Vaccines - Completed 3 set vaccines. Final vaccines ?? Disposition - Great support from friends and Carlos. She is working part-time. Advancing hours as tolerated. IMMEDIATE PLANS: ?? Next vaccines are due Jan 2017. Third set will be completed today. ?? Continue Lexapro 10mg daily ?? Continue ativan 0.25mg tid prn per PCP ?? Continue Acyclovir 800mg bid and continue for one year post transplant. Complete acyclovir December 2016. ?? Mediport removal on day of CT ?? mediport flushes in Oct and Oct at [facility] ?? RTC in three month for labs(cbc, diff) and CT CAP. CC: Belén Griffin MD documented in this encounter Plan of Treatment Upcoming Encounters Date Type Department Care Team (Late st Contact Info) Description 12/07/2023 12:00 PM EDT Office Visit Dermatology at [facility] [address] [place] [address] Juan F Chappell MD [facility] [address] [place] [address] documented as of this encounter Results * IR Removal of [...] Kimberly Mondragon MD IMG IR ORDERABLE S * CT Chest, Abdomen, & Pelvis With Contrast (GENERIC) (12/25/2015 11:08 AM EST) Anatomical Region Laterality Modality Abdomen, Pelvis Computed Tomogra phy Impressions 12/25/2015 11:24 AM EST No evidence of disease recurrence. Narrative 12/25/2015 11:24 AM EST EXAMINATION: CT CHEST ABDOMEN PELVIS W CONTRAST (GENERIC) CLINICAL HISTORY: restage lymphoma - compare to PET scan TECHNIQUE: Helical CT of the chest, abdomen, and pelvis was performed following intravenous administration of 110 ml of Omnipaque 350 and oral contrast. COMPARISON: PET/CT dated April 03, 2015 FINDINGS: Chest Lungs and large airways: No abnormal [...] of the LEFT kidney. No hydronephrosis bilaterally. Lymph nodes: No enlarged abdominal or pelvic lymph nodes Bowel: Normal caliber, no wall thickening Peritoneum and mesentery: No ascites or free air, no fluid collection Reproductive organs: Within normal limits. Osseous structures: No suspicious lesions. Procedure Note Joshua Bal MD - 12/25/2015 EXAMINATION: CT CHEST ABDOMEN PELVIS W CONTRAST (GENERIC) CLINICAL HISTORY: restage lymphoma - compare to PET scan TECHNIQUE: Helical CT of the chest, abdomen, and pelvis was performedfollowing intravenous administration of 110 ml of Omnipaque 350 and oral contrast. COMPARISON: PET/CT dated April 03, 2015 FINDINGS: Chest Lungs and large airways: No abnormal opacity Pleura: No effusion Heart: Normal size, no pericardial effusion Mediastinum and carlo: No lymphadenopathy Axilla: Stable centimeter or less LEFT axillary lymph nodes, which werenot metabolically active on the recent PET/CT. Abdomen/pelvis Liver: Within normal limits. Bile ducts: Normal caliber Gallbladder: No calcified gallstones. Normal caliber wall. Pancreas: Normal Spleen: Normal Adrenals: Normal Kidneys: Small, 6 mm, cyst in the interpole region of the LEFT kidney.No hydronephrosis bilaterally. Lymph nodes: No enlarged abdominal or pelvic lymph nodes Bowel: Normal caliber, no wall thickening Peritoneum and mesentery: No ascites or free air, no fluid collection Reproductive organs: Within normal limits. Osseous structures: No suspicious lesions. IMPRESSION No evidence of disease recurrence. Kimberly Mondragon MD IMG CT ORDERABLE S documented in this encounter Visit Diagnoses Diagnosis Lymphoma, unspecified body region, unspecified lymphoma type Lymphoma, unspecified body region, unspecified lymphoma type Lymphoma, unspecified body region, unspecified lymphoma type documented in this encounter Care Teams Soa Engineer Relationship Specialty Start Date End Date Belén Griffin MD [address] [place] [address] PCP - General Family Medicine 05/07/15 documented as of this encounter
--- OUTSIDE RECORDS SUMMARY | 2023-10-28 00:42 | XMS_ITS | Encounter Summary ---
Author Organization [facility] [place] [address] Care Team Providers Care Choke Reamer Name Role Phone Belén Griffin MD Primary Care Provider [phone] Reason for Referral * Diagnostic Test (Routine) - Closed Specialty Diagnoses / Procedures Referred By Perry t Referred To Contact Radiology Diagnoses Lymphoma, unspecified body region, unspecified lymphoma type Procedures CT Chest, Abdomen, & Pelvis With Contrast (GENERIC) Kimberly Mondragon MD [facility] [address] HEMATOLOGY [place] [address] [facility] [place] [address] Referral ID Status Reason Start Date Expiration Date V isits Requested Visits Authorized [id number] Closed Specialty Service Requested 12/19/2015 03/18/2016 1 1 Reason for Visit * Diagnostic Test (Routine) - Closed Specialty Diagnoses / Procedures Referred By Perry cabrera Referred To Contact Radiology Diagnoses Lymphoma, unspecified body region, unspecified lymphoma type Procedures CT Chest, Abdomen, & Pelvis With Contrast (GENERIC) Kimberly Mondragon MD [facility] [address] HEMATOLOGY [place] [address] [facility] [place] [address] Referral ID Status Reason Start Date Expiration Date V isits Requested Visits Authorized [id number] Closed Specialty Service Requested 12/19/2015 03/18/2016 1 1 Encounter Details Date Type Department Care Team (Late st Contact Info) Description 12/25/2015 8:32 AM EST - 12/25/2015 8:41 AM [facility] Hospital Encounter CT Scan at [facility] [place] [address] [facility] [address] HEMATOLOG[place] [address] Lymphoma, unspecified body region, unspecified lymphoma type [...] 12:00 PM EDT Office Visit Dermatology at [facility] [address] [place] [address] [address] [facility] [address] [place] [address] documented as of this encounter Procedures Procedure Name Priority Date/Time Associated Diagnosis Comments CT CHEST ABDOMEN PELVIS W CONTRAST (GENERIC) Routine 12/25/2015 11:08 AM EST Lymphoma, unspecified body region, unspecified lymphoma type documented in this encounter Results * CT Chest, Abdomen, & Pelvis With [...] Rate Site iohexol (OMNIPAQUE) 350 mg/mL solution 38,500 mg 38,500 mg (110 mL), Intravenous, ONCE PRN, 1 dose, Starting on Cece 12/25/15 at 1109, Until Cece 12/25/15 at 1102, Per Protocol, Warning Vesicant/Irritant Medication , Routine Given 12/25/2015 11:02 AM EST 38,500 mg iohexol (OMNIPAQUE) 350 mg/mL solution 49 mg 49 mg (rounded from 50 mg), Oral, ONCE PRN, 1 dose, Starting on Cece 12/25/15 at 1109, Until Cece 12/25/15 at 0900, Per Protocol, Warning Vesicant/Irritant Medication , Routine Given 12/25/2015 9:00 AM EST 49 mg documented in this encounter Care Teams Choke Reamer Relationship Specialty Start Date End Date Belén Griffin MD [address] [place] [address] [address] [facility] [address] [place] [address] PCP - General Family Medicine 05/07/15 documented as of this encounter
--- OUTSIDE RECORDS SUMMARY | 2023-10-28 00:42 | XMS_ITS | Encounter Summary ---
Author Organization [facility] Address [facility] [place] [address] Care Team Providers Care Post Secondary Professional Name Role Phone Belén Griffin MD Primary Care Provider [phone] Reason for Visit * Reason Onset Date Comments Labs Only 06/16/2015 Lab Tracking Encounter Details Date Type Department Care Team (Late st Contact Info) Description 06/16/2015 Telephone Hematology/Oncology at [address] [address] Faustina Soto RN Labs Only [...] Telephone Encounter - Faustina Soto RN - 06/16/2015 9:30 AM EDT LAB TRACKING Diagnosis: Lymphoma LABS ORDERED: CBC every Tuesday Assessment: Patient called and states she is feeling fine. Myriam offered that yesterday she ate something that went right thru her and that she had diarrhea x3, it is resolved as of this morning, her Potassium was 3.3, and she plans on having a banana or two today. Plan: No change in plan. Labs again on Tuesday DATE WBC HGB/HCT PLTS ANC MEDS/PLAN LOCATION 06/16/15 8.44 10.4/29.9 118K 6.50 CBC every Tuesday at [facility] 06/09/15 1.29 10/28.5 160k 0.43 Pt will have neulasta 6 mg today Labs again next week. 05/26/15 2.74 10.7 150K 1.81 No Change Labs every other week next due 06/09/15 05/12/15 2.16 9.5/27.7 177K 1.35 No change Labs every other week next due 05/2505/05/15 4.24 9.2/26.7 185k 3.18 Continue as planned Labs at [facility] 05/1104/28/15 4.56 9.3/27.6 224k 3.61 augmentin d/c'd . 04/23 [facility] 05/0404/21/15 6.26 9.2/26.4 137k 5.20 Continued as planned [facility] 04/2704/14/15 6.03 9.7/27.6 129k 4.98 continued as planned [facility] 04/20 04/07 38.09 0.7/27.8 175 32.38 Weaning off Lexapro. Continues off Acyclovir and Bactrim [facility] .03/31/15 0.98 8.7/24.2 126k .09 Pt to have bone marrow biopsy tue and pet scan see Birgit [facility] 04/0703/24/15 5.36 10.2/28.1 123 4.22 [facility] 17.34 9.6/27.2 89 8.84 [facility] documented in this encounter Plan of Treatment Upcoming Encounters Date Type Department Care Team (Late st Contact Info) Description 12/07/2023 12:00 PM EDT Office Visit Dermatology at [facility] [address] [place] [address] Juan F Chappell MD [facility] [place] [address] documented as of this encounter Visit Diagnoses Not on filedocumented in this encounter Care Teams Post Secondary Professional Relationship Specialty Start Date End Date Belén Griffin MD [address] [place] [address] PCP - General Family Medicine 05/07/15 documented as of this encounter
--- OUTSIDE RECORDS SUMMARY | 2023-10-28 00:42 | XMS_ITS | Encounter Summary ---
Author Organization [facility] Address [facility] [place] [address] Care Team Providers Care Business Team Leader Name Role Phone Belén Griffin MD Primary Care Provider [phone] Encounter Details Date Type Department Care Team (Latest Contact Info) Description 07/29/2015 9:39 AM EDT - 07/29/2015 11:59 PM EDT Hospital Encounter Hematology [place] [address] Status post autologous bone marrow transplant; Lymphoma, unspecified body region, unspecified lymphoma type [...] of this encounter Progress Notes * Kendy Bach RN - 07/29/2015 1:07 PM EDT Patient Name: Myriam Vivas Patient Age: 64 y.o. Birthdate: 1950 Admit date: 07/29/2015 Attending Physician: No att. providers found Access visit. See MAR and/or flowsheet. 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
--- OUTSIDE RECORDS SUMMARY | 2023-10-28 00:42 | XMS_ITS | Encounter Summary ---
Author Organization [facility] Address [facility] [place] [address] Care Team Providers Care In File Operator Name Role Phone Belén Griffin MD Primary Care Provider [phone] Encounter Details Date Type Department Care Team (Latest Contact Info) Description 10/02/2015 10:16 AM EDT - 10/02/2015 11:59 PM EDT Hospital Encounter Hematology [place] [address] Lymphoma, unspecified body region, unspecified lymphoma type; Hypokalemia Discharge Disposition: Home Social History Tobacco Use [...] Notes * Anne Welch RN - 10/02/2015 11:17 AM EDT Patient Name: Myriam Vivas Patient Age: 64 y.o. Birthdate: 1950 Admit date: 10/02/2015 Attending Physician: Jennifer att. providers found Mediport accessed, labs drawn,de-accessed. See MAR/flowsheet. documented in this encounter Plan of Treatment Upcoming Encounters Date Type Department Care Team (Late st Contact Info) Description 12/07/2023 12:00 PM EDT Office Visit Dermatology at [facility] [address] [place] [address] Juan F Chappell MD [facility] [address] [place] [address] documented as of this encounter Visit Diagnoses Diagnosis Lymphoma, unspecified body region, unspecified lymphoma type Hypokalemia Hypopotassemia documented in this encounter Administered Medications Inactive Administered Medications - up to 3 most recent administrations Medication Order MAR Action Action Date Dose Rate Site heparin, porcine 100 unit/mL flush 500 Units 500 Units, Intravenous, ONCE, 1 dose, On Cece 10/02/15 at 0800, Routine Given 10/02/2015 11:16 AM EDT 500 Units sodium chloride 0.9 % flush 20 mL 20 mL, Intravenous, CONTINUOUS PRN, 100 doses, Starting on Cece 10/02/15 at 0740, Until Tue10/03/15 at 0435, [employer], Routine New Bag 10/02/2015 11:15 AM EDT 20 mLs documented in this encounter Care Teams In File Operator Relationship Specialty Start Date End Date Belén Griffin MD [address] [place] [address] PCP - General Family Medicine 05/07/15 documented as of this encounter
--- OUTSIDE RECORDS SUMMARY | 2023-10-28 00:42 | XMS_ITS | Encounter Summary ---
Author Organization [facility] Address [facility] [place] [address] Care Team Providers Care Wig Stylist Name Role Phone Belén Griffin MD Primary Care Provider [phone] Reason for Visit * Reason Comments Injections Encounter Details Date Type Department Care Team (Late st Contact Info) Description 06/09/2015 11:30 AM EDT Infusion Hematology Oncology at [address] [address] Diffuse large B-cell lymphoma, unspecified body region [...] as of this encounter Progress Notes * Alyse Lima, RN - 06/09/2015 11:39 AM EDT TIME TREATMENT STARTED: 1130 Myriam Vivas, 64 y.o. female with diagnosis of DLBCL is here for neulasta injection. S: Pt. offers no complaints at this time. O: ANC 0.43 today. Neulasta 6mg SQ given left abdomen. REACTIONS (DESCRIPTION, TIME, INTERVENTION AND EFFECTIVENESS) none A: Pt. Tolerated treatment well. Myriam Vivas confirms that all questions and issues have been addressed. P: Myriam will have labs repeated in one week. documented in this encounter Plan of Treatment Upcoming Encounters Date Type Department Care Team (Late st Contact Info) Description 12/07/2023 12:00 PM EDT Office Visit Dermatology at [facility] [address] [address] Juan F Chappell MD [facility] [address] [place] [address] documented as of this encounter Procedures Procedure Name Priority Date/Time Associated Diagnosis Comments CHEMOTHERAPY SCAN 06/09/2015 12:00 AM EDT documented in this encounter Results * SCAN DOC: CHEMOTHERAPY (06/09/2015 12:00 AM EDT) Scanning Provider MEDIA MGR SCAN EXT O RDR/RSLT documented in this encounter Visit Diagnoses Diagnosis Diffuse large B-cell lymphoma, unspecified body region documented in this encounter Administered Medications Inactive Administered Medications - up to 3 most recent administrations Medication Order MAR Action Action Date Dose Rate Site pegfilgrastim (NEULASTA) injection 6 mg 6 mg, Subcutaneous, ONCE, 1 dose, On Tue06/09/15 at 1130, Bring to room temperature 15-30 mins before administration., Routine Given 06/09/2015 11:38 AM EDT 6 mg documented in this encounter Care Teams Wig Stylist Relationship Specialty Start Date End Date Belén Griffin MD [address] [place] [address] [address] [place] [address] PCP - General Family Medicine 05/07/15 documented as of this encounter
--- OUTSIDE RECORDS SUMMARY | 2023-10-28 00:42 | XMS_ITS | Encounter Summary ---
Author Organization [facility] [place] [address] Care Team Providers Care Detention Worker Name Role Phone Belén Griffin MD Primary Care Provider [phone] Reason for Visit * Reason Onset Date Comments Disability Paperwork 11/28/2015 [employer] insurance P [phone] F [phone] Encounter Details Date Type Department Care Team (Late st Contact Info) Description 11/28/2015 Telephone [place]ology [place] [address] Marilu Daniels Disability Paperwork ([employer] insurance P [phone] F [phone] ) Social History Tobacco Use Types Packs/Day Years [...] encounter Miscellaneous Notes * Telephone Encounter - Marilu Daniels - 11/28/2015 11:06 AM EDT Received disability documentation from [email or web address]. Completed the documentation and forwarded a copy of the request to medical records. Scanned into eD. documented in this encounter Plan of Treatment Upcoming Encounters Date Type Department Care Team (Late st Contact Info) Description 12/07/2023 12:00 PM EDT Office Visit Dermatology at [facility] [address] [place] [address] Juan F Chappell MD [facility] [address] [place] [address] documented as of this encounter Visit Diagnoses Not on filedocumented in this encounter Care Teams Detention Worker Relationship Specialty Start Date End Date Belén Griffin MD [address] [place] [address] [address] [facility] 1 [place] [address] PCP - General Family Medicine 05/07/15 documented as of this encounter
--- OUTSIDE RECORDS SUMMARY | 2023-10-28 00:42 | XMS_ITS | Encounter Summary ---
Author Organization [facility] Address [facility] [place] [address] Care Team Providers Care Return Clerk Name Role Phone Belén Griffin MD Primary Care Provider [phone] Encounter Details Date Type Department Care Team (Late st Contact Info) Description 08/07/2015 Telephone [place] [phone] Dafne Sandy RN Social History Tobacco Use [...] Telephone Encounter - Dafne Sandy RN - 08/07/2015 10:18 AM EDT RN received request from Thelma Burnett NP to f/u with patient regarding disability paperwork. Left message for patient requesting call back. Spoke with patient and she states that [employer] has not received paperwork. RN will follow up with Disability Paperwork Specialist regarding this. Per Marilu Daniels, paperwork was filled out, and faxed. Marilu sent paperwork to medical records to be scanned into eD documented in this encounter Plan of Treatment Upcoming Encounters Date Type Department Care Team (Late st Contact Info) Description 12/07/2023 12:00 PM EDT Office Visit Dermatology at [facility] [address] [place] [address] Juan F Chappell MD [facility] [address] [place] [address] documented as of this encounter Visit Diagnoses Not on filedocumented in this encounter Care Teams Return Clerk Relationship Specialty Start Date End Date Belén Griffin MD [address] [facility] 1 [place] [address] PCP - General Family Medicine 05/07/15 documented as of this encounter
--- OUTSIDE RECORDS SUMMARY | 2023-10-28 00:42 | XMS_ITS | Encounter Summary ---
Author Organization [facility] Address [facility] [place] [address] Care Team Providers Care Industrial Pharmacist Name Role Phone Belén Griffin MD Primary Care Provider [phone] Encounter Details Date Type Department Care Team (Latest Contact Info) Description 05/29/2015 3:15 PM EDT Clinical Support Hematology/Oncology at [address] [phone] [facility] [place] [address] Dietary counseling and surveillance Social History Tobacco Use Types Packs/Day Years Used Date Smoking Tobacco: Never Smokeless Tobacco: Never Alcohol Use Standard Drinks/Week Comments Yes 2 (1 standard drink = 0.6 oz pur e alcohol) Sex and Gender Information Value Date Recorded Sex Assigned at Not on file Gender Identity Not on file Sexual Orientation Not on file documented as of this encounter Progress Notes * Markell Drew, JAKE - 05/29/2015 3:20 PM EDT [facility] Dietitian Follow Up? Assessment Seen By: Arminda Drew, MS, RD, SOLUTION SPEC, LD Patient and diagnosis: Myriam Vivas is [...] marrow transplant?? Z94.81?? 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 [...] is gaining footing with life in general. Nutrition Intervention: ? Increase caloric needs ?? [...] Dermatology at [facility] [address] [place] [address] Juan F Chappell MD [facility] DR RANDEE [place] [address] documented as of this encounter Visit Diagnoses Diagnosis Dietary counseling and surveillance Dietary surveillance and counseling documented in this encounter Care Teams Industrial Pharmacist Relationship Specialty Start Date End Date Belén Griffin MD [facility] [address] [facility] 1 [place] [address] PCP - General Family Medicine 05/07/15 documented as of this encounter
--- OUTSIDE RECORDS SUMMARY | 2023-10-28 00:42 | XMS_ITS | Encounter Summary ---
Author Organization [facility] Address [facility] [place] [address] Care Team Providers Care Home Planning Consultant Salesperson Name Role Phone Belén Griffin MD Primary Care Provider [phone] Reason for Visit * Reason Onset Date Comments Labs Only 06/09/2015 lab tracking Encounter Details Date Type Department Care Team (Late st Contact Info) Description 06/09/2015 Telephone Hematology/Oncology at [address] [address] Ana Paula Benz RN Labs [...] Encounter - Ana Paula Benz RN - 06/09/2015 9:34 AM EDT LAB TRACKING Diagnosis: Lymphoma LABS ORDERED: CBC every mondays MEDICATIONS: Assessment: pt feeling fine Plan: dr. Mondragon reviewed labs and pt to come in for neulasta and have labs again next week. DATE WBC HGB/HCT PLTS ANC MEDS/PLAN LOCATION 06/09/15 1.29 10/28.5 160k 0.43 Pt will have neulasta 6 mg today Labs again next week. 05/26/15 2.74 10.7 150K 1.81 No Change Labs every other week next due 06/09/15 05/12/15 2.16 9.5/27.7 177K 1.35 No change Labs every other week next due 05/2505/05/15 4.24 9.2/26.7 185k 3.18 Continue as planned Labs at [facility] 05/1104/28/15 4.56 9.3/27.6 224k 3.61 augmentin d/c'd . 04/23 [facility] 05/0404/21/15 6.26 9.2/26.4 137k 5.20 Continued as planned [facility] 04/2704/14/15 6.03 9.7/27.6 129k 4.98 continued as planned [facility] 04/20 04/07 38.09 0.7/27.8 175 32.38 Weaning off Lexapro. Continues off Acyclovir and Bactrim [facility] 2.03/31/15 0.98 8.7/24.2 126k .09 Pt to have bone marrow biopsy tue and pet scan see Birgit [facility] 04/0703/24/15 5.36 10.2/28.1 123 4.22 [facility] 17.34 9.6/27.[address] [facility] documented in this encounter Plan of Treatment Upcoming Encounters Date Type Department Care Team (Late st Contact Info) Description 12/07/2023 12:00 PM EDT Office Visit Dermatology at [facility] [address] [place] [address] Juan F Chappell MD [facility] DR RANDE[place] [address] documented as of this encounter Visit Diagnoses Not on filedocumented in this encounter Care Teams Home Planning Consultant Salesperson Relationship Specialty Start Date End Date Belén Griffin MD [address] [facility] [address] [place] [address] PCP - General Family Medicine 05/07/15 documented as of this encounter
--- OUTSIDE RECORDS SUMMARY | 2023-10-28 00:42 | XMS_ITS | Encounter Summary ---
Author Organization [facility] Address [facility] [place] [address] Care Team Providers Care Mobile Pet Groomer Name Role Phone Belén Griffin MD Primary Care Provider [phone] Encounter Details Date Type Department Care Team (Late st Contact Info) Description 09/29/2015 Orders Only [place]ology [place] [address] Brenda Meyer Social History Tobacco Use Types [...] 12:00 PM EDT Office Visit Dermatology at [facility] [address] [place] [address] Juan F Chappell MD [facility] DR [place] [address] documented as of this encounter Visit Diagnoses Not on filedocumented in this encounter Care Teams Mobile Pet Groomer Relationship Specialty Start Date End Date Belén Griffin MD [address] [facility] [address] [place] [address] PCP - General Family Medicine 05/07/15 documented as of this encounter
--- OUTSIDE RECORDS SUMMARY | 2023-10-28 00:42 | XMS_ITS | Encounter Summary ---
Author Organization [facility] [place] [address] Care Team Providers Care Cluster Bore Operator Name Role Phone Belén Griffin MD Primary Care Provider [phone] Reason for Visit * Reason Onset Date Comments Labs Only 07/21/2015 Lab Tracking Encounter Details Date Type Department Care Team (Late st Contact Info) Description 07/21/2015 Telephone Hematology/Oncology at [address] [address] James Davila, RN Labs Only [...] Telephone Encounter - James Davila RN - 07/21/2015 12:08 PM EDT LAB TRACKING Myriam Vivas Diagnosis: Lymphoma LABS ORDERED: CBC every other Tuesday Assessment: Labs sent to Dr. Mondragon for review. Myriam is meeting with Dr. Mondragon at [facility] next Friday 07/28 in which she plans to get labs drawn there and receive an immunization. Plan: Pt to have additional lab draw next Tuesday at [facility] for decrease in WBC/ANC. (Then continue with every other Félix labs at [facility].) DATE WBC HGB/HCT PLTS ANC MEDS/PLAN LOCATION 07/21/15 2.99 10.7/30.2 168k 1.88 Meet with Giancarlo at [facility] 07/28 Labs every other Tuesday @ [facility] 07/07/15 3.24 10.30.2 185k 2.13 Labs every other week [facility] 06/30/15 3.82 10.3/29.1 180 2.53 CBC q tuesday [facility] 06/23/15 4.89 10.329.6 181k 3.70 Antibiotics per dentist Cbc every tuesday06/16/15 8.44 10.4/29.9 118K 6.50 CBC every Tuesday at [facility] 06/09/15 1.29 10.5 160k 0.43 Pt will have neulasta 6 mg today Labs again next week. 05/26/15 2.74 1028.7 150K 1.81 No Change Labs every other week next due 06/09/15 05/12/15 2.16 9.5/27.7 177K 1.35 No change Labs every other week next due 05/2505/05/15 4.24 9.2/26.7 185k 3.18 Continue as planned Labs at [facility] 05/1104/28/15 4.56 9.3/27.6 224k 3.61 augmentin d/c'd . 04/23 [facility] 05/0404/21/15 6.26 9.2/26.4 137k 5.20 Continued as planned [facility] 04/2704/14/15 6.03 9.7/27.6 129k 4.98 continued as planned [facility] 04/20 04/07 38.09 0.7/27.8 175 32.38 Weaning off Lexapro. Continues off Acyclovir and Bactrim [facility] 2.03/31/15 0.98 8.7/24.2 126k .09 Pt to have bone marrow biopsy tue and pet scan see Birgit [facility] 04/0703/24/15 5.36 10.2/28.1 123 4.22 [facility] 17.34 9.6/27.2 89 8.84 [place] documented in this encounter Plan of Treatment Upcoming Encounters Date Type Department Care Team (Late st Contact Info) Description 12/07/2023 12:00 PM EDT Office Visit Dermatology at [facility] [address] [place] [address] Juan F Chappell MD [facility] DR RANDEE JO[place] [address] documented as of this encounter Visit Diagnoses Not on filedocumented in this encounter Care Teams Cluster Bore Operator Relationship Specialty Start Date End Date Belén Griffin MD [address] [place] [address] [address] [facility] 1 [place] [address] PCP - General Family Medicine 05/07/15 documented as of this encounter
--- OUTSIDE RECORDS SUMMARY | 2023-10-28 00:42 | XMS_ITS | Encounter Summary ---
Author Organization [facility] Address [facility] [place] [address] Care Team Providers Care Timber Hewer Name Role Phone Belén Griffin MD Primary Care Provider [phone] Encounter Details Date Type Department Care Team (Late st Contact Info) Description 05/21/2015 10:00 AM EDT Office Visit Hematology/Oncology at [address] [address] Kimberly Mondragon MD [facility] DR HEMATOLOGY [place] [address] Lymphoma, unspecified body region, unspecified lymphoma type [...] Sign Reading Time Taken Comments Blood Pressure 107/58 05/21/2015 9:53 AM EDT Pulse 100 05/21/2015 9:53 AM EDT Temperature 36.5 ??C (97.7 ??F) 05/21/2015 9:53 AM ED T Respiratory Rate 16 05/21/2015 9:53 AM EDT Oxygen Saturation 100% 05/21/2015 9:53 AM EDT Inhaled Oxygen Concentration - - Weight 54.4 kg (120 lb) 05/21/2015 9:53 AM EDT Height 157.5 cm (5' 2.01) 05/21/2015 9:53 AM ED T Body Mass Index 21.94 05/21/2015 9:53 AM EDT documented in this encounter Progress Notes * Kimberly Mondragon MD - 05/20/2015 10:41 PM EDT Hematology/BMT Clinic [place] [id number] FOLLOW-UP PATIENT EVALUATION Patient Active Problem List [...] was not informative according to the Bassem group leader wafer polishing, but 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 Lymphoma TB discussion 10/01/14 Recommendations for salvage chemotherapy and autologous stem cell transplant. C#1 R[facility]AP 10/09/14 With stem cell collection C#2 RDHAP 11/04/14 PET scan negative! 11/25/14 ! ADMIT on 12/17/14 to [facility] for Autologous Peripheral BlN/ood [...] cell transplant. When she was seen in [facility] last week with respiratory symptoms, she was [...] Immodium Emotionally, she feels like things are getting better. She is back seeing her therapist who believes she should go back on her Lexapro, which we stopped while trying to sort out her neutropenia. Myriam is doing a bit better on the lexapro. Had a nice trip to [place]. No fevers. Dry cough since tuesday. Ear pain Improved w/ wax removal. Has not tried anti-histamine. No HAs, lightheadedness/dizziness. Breathing is stable. Since the transplant she has lost About 12#. Has lost 25# since her diagnosis. Her stomach is recovering from the antibiotic. No bleeding. Working 2-3 hours 5days/week but exhuasted once she gets home. Takes a nap when she returns. MEDICATIONS: Current Outpatient Prescriptions on File Prior to Visit Medication Sig Dispense Refill ??? loperamide (IMMODIUM) 2 mg Capsule Take 2 mg by mouth 4 times daily as needed for Diarrhea. ??? acetaminophen (TYLENOL) 500 mg Tablet Take 1,000 mg by mouth every 6 hours as needed for Pain. ??? LORazepam (ATIVAN) 0.5 mg Tablet Take 1 tablet by mouth every 6 hours as needed for Anxiety. 50tablet 1 ??? ondansetron (ZOFRAN) 8 mg Tablet Take [...] Comments) Unsure if actual allergy, please try [id number] Skin tears/rawness ??? Vancomycin Itching and Dermatitis Sarah's syndrome. Slow infusion for any upcoming doses. Broke out in maculopapular pruritic dermatitis on abdomen, chest, forehead and upper back. 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 CHANGES IN RELEVANT FAMILY HISTORY: ROS Energy level:slowly improving Pain: No Appetite:good Fevers/chills/sweats:No Bruising/bleeding/melena:No Recent infections:No [...] with anxiety Sleep: Difficulty sleeping PHYSICAL EXAM: There were no vitals taken for this visit. GENERAL: Myriam Vivas is in mild distress. [...] 2 more treatments. Next due 05/22/15 at [facility] - Continue Acyclovir 800mg bid x 1 [...] of vaccinations. Due for Prevnar again in at [facility]. ?? Ear pain - improved with wax removal. We appreciate PCP getting her in so quickly. ?? Pulmonary - dry cough. Reviewed reasons to call - fevers, dyspnea, progressive cough. Today lungs are clear and she did not cough at all through the appt. But we talked at length about sx/sx to call for. ?? Weight loss - still not gaining weight. She has problems with early saiety. I hate to treat thiswith a pill. She has seen barrel waterer in the past. She is willing to try again. Her biggest problem is that she is so tired and fills up so quickly. If the barrel waterer thinks she needs an appettie stimulant then I am happy to prescribe. ?? Disposition - Great support from friends and Carlos. She has returned to work part-time. 2-3 hours per day. IMMEDIATE PLANS: - CBC only every other Tuesday though June then once in July at [facility] then will determine based on counts and overall recovery - [facility] triage nurses to follow. Will give Neulasta for ANC falls near or below 500 again. If - Continue Lexapro 10mg daily - good effect to date. - Continue ativan 0.25mg tid prn - Pentamidine inhalation therapy today. She will need one final more monthly treatment which have been arranged at [facility]. Next scheduled on 05/22/15. Then PJP prophylaxis is complete. - Continue Acyclovir 800mg bid and continue for one year post transplant. - refer to nutritionis again - Appt with :Hawa in 4-5 weeks - RTC in July to [facility] for labs, prevnar #2. And to begin initial series of post- transplant vaccinations. CC: Belén Griffin MD documented in this encounter Plan of Treatment Upcoming Encounters Date Type Department Care Team (Late st Contact Info) Description 12/07/2023 12:00 PM EDT Office Visit Dermatology at [facility] [address] [place] [address] Juan F Chappell MD [facility] DR RANDEE [place] [address] documented as of this encounter Visit Diagnoses Diagnosis Lymphoma, unspecified body region, unspecified lymphoma type documented in this encounter Care Teams Timber Hewer Relationship Specialty Start Date End Date Belén Griffin MD [address] [place] [address] PCP - General Family Medicine 05/07/15 documented as of this encounter
--- OUTSIDE RECORDS SUMMARY | 2023-10-28 00:42 | XMS_ITS | Encounter Summary ---
Author Organization [facility] Address [facility] [place] [address] Care Team Providers Care Maintenance Data Analyst Name Role Phone Belén Griffin MD Primary Care Provider [phone] Reason for Visit * Reason Onset Date Comments Medical Care Coordination 10/30/2015 Encounter Details Date Type Department Care Team (Late st Contact Info) Description 10/30/2015 Telephone Hematology Oncology at [address] [address] Dana Sanhcez I, RN Medical Care Coordination Social History Tobacco Use Types Packs/Day [...] Telephone Encounter - Dana Sanchez RN - 10/30/2015 4:02 PM EDT Received call from Perla at [facility]. We have orders to flush Myriam's port in Sept and Oct the patient lives in [place] . Port to be removed in Nov after her Ct Scan. New order generated for Dr Mondragon's signature. Tatianna Benz notified. documented in this encounter Plan of Treatment Upcoming Encounters Date Type Department Care Team (Late st Contact Info) Description 12/07/2023 12:00 PM EDT Office Visit Dermatology at [facility] [address] [place] [address] Juan F Chappell MD [facility] DR [place] [address] documented as of this encounter Visit Diagnoses Not on filedocumented in this encounter Care Teams Maintenance Data Analyst Relationship Specialty Start Date End Date Belén Griffin MD [address] [place] [address] [address] [facility] 1 [place] [address] PCP - General Family Medicine 05/07/15 documented as of this encounter
--- OUTSIDE RECORDS SUMMARY | 2023-10-28 00:42 | XMS_ITS | Encounter Summary ---
Author Organization [facility] Address [facility] [place] [address] Care Team Providers Care Forest Products Gatherer Name Role Phone Belén Griffin MD Primary Care Provider [phone] Encounter Details Date Type Department Care Team (Late st Contact Info) Description 05/05/2015 Telephone Hematology Oncology at [address] [address] Maryellen Pang RN Social History Tobacco Use Types Packs/Day [...] encounter Miscellaneous Notes * Telephone Encounter - Maryellen Pang RN - 05/05/2015 3:26 PM EDT LAB TRACKING Diagnosis: Lymphoma LABS ORDERED: CBC mondays MEDICATIONS: Assessment: Dr. miller reviewed labs Plan: continue weekly cbc's DATE WBC HGB/HCT PLTS ANC MEDS/PLAN LOCATION 05/05/15 4.24 9.2/26.7 185k 3.18 Continue as planned Labs at [facility] 05/1104/28/15 4.56 9.3/27.6 224k 3.61 augmentin d/c'd thurs. 04/23 [facility] 05/0404/21/15 6.26 9.2/26.4 137k 5.20 Continued as planned [facility] 04/2704/14/15 6.03 9.7/27.6 129k 4.98 continued as planned [facility] 04/20 04/07 38.09 0.7/27.8 175 32.38 Weaning off Lexapro. Continues off Acyclovir and Bactrim [facility] 2.03/3103/31/1601 0.98 8.7/24.2 126k .09 Pt to have bone marrow biopsy tue and pet scan see Giancarlo after [facility] 04/0703/24/15 5.36 10.2/28.1 123 4.22 [facility] 17.34 9.6/27.2 89 8.84 [facility] documented in this encounter Plan of Treatment Upcoming Encounters Date Type Department Care Team (Late st Contact Info) Description 12/07/2023 12:00 PM EDT Office Visit Dermatology at [address] [address] Juan F Chappell MD [facility] DR RANDE[place] [address] documented as of this encounter Visit Diagnoses Not on filedocumented in this encounter Care Teams Forest Products Gatherer Relationship Specialty Start Date End Date Belén Griffin MD [address] [place] [address] [address] [facility] 1 [place] [address] PCP - General Family Medicine 03/05/15 05/06/15 documented as of this encounter
--- OUTSIDE RECORDS SUMMARY | 2023-10-28 00:42 | XMS_ITS | Encounter Summary ---
Author Organization [facility] Address [facility] [place] [address] Care Team Providers Care Optometrist/Practice Owner Name Role Phone Belén Griffin MD Primary Care Provider [phone] Reason for Visit * Reason Onset Date Comments Labs Only 06/30/2015 lab tracking Encounter Details Date Type Department Care Team (Late st Contact Info) Description 06/30/2015 Telephone Hematology/Oncology at [address] [phone] Ramila Hernández RN Labs Only (lab tracking) Social History [...] encounter Miscellaneous Notes * Telephone Encounter - Ramila Hernández RN - 06/30/2015 1:44 PM EDT LAB TRACKING Diagnosis: Lymphoma LABS ORDERED: CBC every Tuesday Assessment: Patient on antibiotic/peroex rinse and reports that her oral cavity/gum feels much better. No new issues. Labs sent to Dr. Mondragon for review. Plan: Continue CBC q Tuesday for now. DATE WBC HGB/HCT PLTS ANC MEDS/PLAN LOCATION 06/30/15 3.82 10.3/29.1 180 2.53 CBC q tuesday [facility] 06/23/15 4.89 10.3/29.6 181k 3.70 Antibiotics per dentist Cbc every tuesday06/16/15 8.44 10.4/29.9 118K 6.50 CBC every Tuesday at [facility] 06/09/15 1.29 10.5 160k 0.43 Pt will have neulasta 6 mg today Labs again next week. 05/26/15 2.74 10.7 150K 1.81 No Change Labs every other week next due 06/09/15 05/12/15 2.16 9.5/27.7 177K 1.35 No change Labs every other week next due 05/2505/05/15 4.24 9.2/26.7 185k 3.18 Continue as planned Labs at [facility] 05/1104/28/15 4.56 9.3/27.6 224k 3.61 augmentin d/c'd . 04/23 [facility] 05/0404/21/15 6.26 9.2/26.4 137k 5.20 Continued as planned [facility] 04/2704/14/15 6.03 9.7/27.6 129k 4.98 continued as planned [facility] 04/20 04/07 38.09 0.7/27.8 175 32.38 Weaning off Lexapro. Continues off Acyclovir and Bactrim [facility] 2.03/31/15 0.98 8.7/24.2 126k .09 Pt to have bone marrow biopsy tue and pet scan see Birgit [facility] 04/0703/24/15 5.36 10.2/28.1 123 4.22 [facility] 17.34 9.6/27.2 89 8.84 [facility] documented in this encounter Plan of Treatment Upcoming Encounters Date Type Department Care Team (Late st Contact Info) Description 12/07/2023 12:00 PM EDT Office Visit Dermatology at [facility] [address] [place] [address] Juan F Chappell MD [facility] [address] [place] [address] documented as of this encounter Visit Diagnoses Not on filedocumented in this encounter Care Teams Optometrist/Practice Owner Relationship Specialty Start Date End Date Belén Griffin MD [address] [place] [address] [address] [place] [address] PCP - General Family Medicine 05/07/15 documented as of this encounter
--- OUTSIDE RECORDS SUMMARY | 2023-10-28 00:43 | XMS_ITS | Encounter Summary ---
Author Organization [facility] Address [facility] [place] [address] Care Team Providers Care Excel Vba Developer Name Role Phone Belén Griffin MD Primary Care Provider [phone] Reason for Visit * Reason Onset Date Comments Labs Only 03/31/2015 lab tracking Encounter Details Date Type Department Care Team (Late st Contact Info) Description 03/31/2015 Telephone Hematology/Oncology at [address] [phone] Ana Paula Benz RN Labs [...] Encounter - Ana Paula Benz RN - 03/31/2015 9:28 AM EST LAB TRACKING LABS ORDERED: CBC mondays MEDICATIONS: Neulasta 6mg on 03/12/15 DATE WBC HGB/HCT PLTS ANC MEDS/PLAN LOCATION 03/31/15 0.98 8.7/24.2 126k .09 Pt to have bone marrow biopsy tue and pet scan see Birgit [facility] 04/0703/24/15 5.36 10.2/28.1 123 4.22 [facility] 03/17/15 17.34 9.6/27.2 89 8.84 [facility] Assessment: Patient states she feels good, but is tired. Plan: labs every Tuesday per Dr. Mondragon-Patient aware and agreeable to plan documented in this encounter Plan of Treatment Upcoming Encounters Date Type Department Care Team (Late st Contact Info) Description 12/07/2023 12:00 PM EDT Office Visit Dermatology at [facility] [address] [place] [address] Juan F Chappell MD [facility] DR RANDE[place] [address] documented as of this encounter Visit Diagnoses Not on filedocumented in this encounter Care Teams Excel Vba Developer Relationship Specialty Start Date End Date Belén Griffin MD [address] [place] [address] PCP - General Family Medicine 03/05/15 05/06/15 documented as of this encounter
--- OUTSIDE RECORDS SUMMARY | 2023-10-28 00:43 | XMS_ITS | Encounter Summary ---
Author Organization [facility] Address [facility] [place] [address] Care Team Providers Care Secondary School Teacher Name Role Phone Belén Griffin MD Primary Care Provider Reason for Visit * Reason Onset Date Comments Labs Only 04/21/2015 lab tracking Encounter Details Date Type Department Care Team (Late st Contact Info) Description 04/21/2015 Telephone Hematology/Oncology at [address] [phone] Ana Paula Benz RN Labs [...] Encounter - Ana Paula Benz RN - 04/21/2015 10:12 AM EST LAB TRACKING Diagnosis: Lymphoma LABS ORDERED: CBC mondays MEDICATIONS: Assessment: Pt states she feels very tired and antibiotic given her diarrhea. Cold symptoms better.She is at work. No interest in eating, forcing herself to eat. Dr. Mondragon reviewed labs. Plan: She will see Dr. Mondragon in [place]. DATE WBC HGB/HCT PLTS ANC MEDS/PLAN LOCATION 04/21/15 6.26 9.2/26.4 137k 5.20 Continued as planned [facility] 04/2704/14/15 6.03 9.7/27.6 129k 4.98 continued as planned [facility] 04/20 04/07 38.09 0.7/27.8 175 32.38 Weaning off Lexapro. Continues off Acyclovir and Bactrim [facility] 2.03/31/15 0.98 8.7/24.2 126k .09 Pt to have bone marrow biopsy tue and pet scan see Birgit [place] 04/0703/24/15 5.36 10.2/28.1 123 4.22 [facility] 03/17/15 17.34 9.6/27.2 89 8.84 [facility] documented in this encounter Plan of Treatment Upcoming Encounters Date Type Department Care Team (Late st Contact Info) Description 12/07/2023 12:00 PM EDT Office Visit Dermatology at [address] [phone] Juan F Chappell MD [facility] [address] [place] [address] documented as of this encounter Visit Diagnoses Not on filedocumented in this encounter Care Teams Secondary School Teacher Relationship Specialty Start Date End Date Belén Griffin MD [address] [place] [address] [address] [facility] 1 [place] [address] PCP - General Family Medicine 03/05/15 05/06/15 documented as of this encounter
--- OUTSIDE RECORDS SUMMARY | 2023-10-28 00:43 | XMS_ITS | Encounter Summary ---
Author Organization [facility] Address [facility] [place] [address] Care Team Providers Care Car Ferrier Name Role Phone Belén Griffin MD Primary Care Provider Reason for Visit * Reason Onset Date Comments Labs Only 03/12/2015 Encounter Details Date Type Department Care Team (Late st Contact Info) Description 03/12/2015 Telephone Hematology/Oncology at [address] [phone] Dana Sanchez I, RN Labs [...] Telephone Encounter - Dana Sanchez RN - 03/12/2015 11:29 AM EST LAB TRACKING DIAGNOSIS: progressive neutropenia LABS ORDERED: cbc MEDICATIONS: ASSESSMENT: Status post BMT, progressive neutropenia. PLAN: Neulasta 6 mg today. Discontinue Acyclovir and Bactrim,. Repeat cbc on 03/17 and 03/31. Patient notified that cbc to be drawn at 11 am on 03/31 DATE WBC HGB/HCT PLTS ANC MEDS/PLAN LOCATION 03/12 0.89 9.8/27.5 135 0.02 Stop Acyclovir and Bactrim Repeat cbc on 03/17 and 03/31 [facility] documented in this encounter Plan of Treatment Upcoming Encounters Date Type Department Care Team (Late st Contact Info) Description 12/07/2023 12:00 PM EDT Office Visit Dermatology at [facility] [address] [place] [address] Juan F Chappell MD [facility] DR RANDE[place] [address] documented as of this encounter Visit Diagnoses Not on filedocumented in this encounter Care Teams Car Ferrier Relationship Specialty Start Date End Date Belén Griffin MD [address] [place] [address] [address] [facility] 1 [place] [address] PCP - General Family Medicine 03/05/15 05/06/15 documented as of this encounter
--- OUTSIDE RECORDS SUMMARY | 2023-10-28 00:43 | XMS_ITS | Encounter Summary ---
Author Organization [facility] Address [facility] [place] [address] Care Team Providers Care Manager Endoscopy Name Role Phone Maine Dunn Primary Care Provider Encounter Details Date Type Department Care Team (Late st Contact Info) Description 01/29/2015 12:30 PM EST Office Visit Hematology/Oncology at [address] [phone] Kimberly Mondragon MD [facility] DR HEMATOLOGY [place] [address] Lymphoma Social History Tobacco Use Types Packs/Day Years [...] Sign Reading Time Taken Comments Blood Pressure 114/56 01/29/2015 12:22 PM EST Pulse 103 01/29/2015 12:22 PM EST Temperature 36.8 ??C (98.2 ??F) 01/29/2015 12:[address] Respiratory Rate 20 01/29/2015 12:22 PM EST Oxygen Saturation 100% 01/29/2015 12:22 PM EST Inhaled Oxygen Concentration - - Weight 61.2 kg (135 lb) 01/29/2015 12:22 PM EST Height 158.3 cm (5' 2.32) 01/29/2015 12:[address] Body Mass Index 24.44 01/29/2015 12:22 PM EST documented in this encounter Progress Notes * Kimberly Mondragon MD - 01/29/2015 12:33 AM EST [facility] [place] [address] FOLLOW-UP PATIENT EVALUATION PROBLEM LIST: 1. Diffuse Large B-cell Lymphoma [address] biopsy consistent [...] was not informative according to the [place] heating and ventilating drafter, but the strong BCL2 expression in the absence of MUM1 suggests a germinal center origin via the [place] heating and ventilating drafter. Lymphoma TB discussion 10/01/14 Recommendations for salvage chemotherapy and autologous stem cell transplant. C#1 [facility] 10/09/14 With stem cell collection C#2 [facility] 11/04/14 PET scan negative! 11/25/14 ! 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 She is Day +38 s/p an Autologous peripheral blood stem cell transplant. She tolerated the transplant reasonably well(see specifics above). She is feeling quite anxious about the whole process, and says she doesn't really remember. More energy and walking outdoors a little bit. She is driving locally to do errands. Decorated her apartment last night. Dealing with a bit of depression. Scratchy throat. No fevers. Has an excellent Appetite and has been eating. No N/V. Taking bactrim. Down to one nap/day. Energy is improving. Starting to do more on her won. Going to supermarket. Yesterday was able to walk about 1/4-1/2 mile. Goes up and down stairs to get to her Apt. Bowels are fairly normal. One episode of nausea/week. MEDICATIONS: Current Outpatient Prescriptions on File Prior to Visit Medication Sig Dispense Refill ??? sulfamethoxazole-trimethoprim (BACTRIM DS) 800-160 mg Tablet Take 1 tablet by mouth 2 times daily. Take 1 pill 2 times daily on Saturdays and Sundays. 20 tablet 5 ??? LORazepam (ATIVAN) 0.5 mg Tablet Take 1 tablet by mouth every 6 hours as needed for Anxiety. 60tablet 1 ??? hydrocortisone 1 % Cream Apply topically 4 times daily. Preparation-H. To hemorrhoids for discomfort 30 g 0 ??? escitalopram oxalate (LEXAPRO) 10 mg Tablet Take 1 tablet by mouth daily. 30 tablet 12 ??? acyclovir (ZOVIRAX) 400 mg Tablet Take 2 tablets by mouth 2 times daily. 60 tablet 3 ??? ondansetron (ZOFRAN) 8 mg Tablet Take 1 tablet by mouth every 8 hours as needed for Nausea. 20 tablet 3 ??? prochlorperazine (COMPAZINE) 10 mg Tablet Take 1 [...] Comments) Unsure if actual allergy, please try [id number] Skin tears/rawness ??? Vancomycin Itching and Dermatitis Sarah's syndrome. Slow infusion for any upcoming doses. Broke out in maculopapular pruritic dermatitis on abdomen, chest, forehead and upper back. INTERIM SOCIAL HISTORY: Changes in job, home situation, tobacco or alcohol use: She has returned home. CHANGES IN RELEVANT FAMILY HISTORY: HEMATOLOGIC REVIEW OF SYSTEMS: CONSTITUTIONAL SYMPTOMS: Fevers/chills/drenching sweats: No Recent infections: No Unexpected weight loss of > 10% baseline body weight: 2 lb weight loss in the past week. Change in adenopathy or other masses: No GENERAL REVIEW OF SYSTEMS: Headache/lightheadedness/syncope: No Sinus pain/pressure: No Oral sores/lesions: No Sore throat/dysphagia: No Cough/SOB/chest pain: No Appetite: Improved Nausea/vomiting/dyspepsia: No Diarrhea/constipation: No Urinary pain, burning, incontinence: No Skin rashes or petechiae: No Peripheral edema: None Bruising/bleeding/melena: No Pain: No Other: Depression with anxiety PHYSICAL EXAM: BP 114/56 mmHg Pulse 103 Temp(Src) 36.8 ??C (98.2 ??F) (Oral) Resp 20 Ht 158.3 cm (5' 2.32) Wt 61.236 kg (135 lb) BMI 24.44 kg/m2 SpO2 100% GENERAL: Myriam Vivas is in no acute distress. Accompanied by her significant other. HEENT: Oral mucosa is clear. Neck: Supple Lungs: Clear breath sounds bilaterally Heart: Regular rate and rhythm without murmur Abdomen: Soft, nontender and no organomegaly Skin: No rash Extremity: shows no edema Muskuloskeletal: Walks slowly and deliberately. Neuro: A+O x 3 Psychiatric: Normal LABORATORY STUDIES: Lab Results Component Value Date WBC 4.1 01/23/2015 WBC 3.7* 01/14/2015 RBC 2.69* 01/23/2015 RBC 2.63* 01/14/2015 HGB 8.6* 01/23/2015 HGB 8.1* 01/14/2015 HCT 25.2* 01/23/2015 HCT 24.0* 01/14/2015 MCV 93.7 01/23/2015 MCV 91.3 01/14/2015 MCH 32.0 01/23/2015 MCH 30.8 01/14/2015 MCHC 34.1 01/23/2015 MCHC 33.8 01/14/2015 PLATELET 183 01/23/2015 PLATELET 144* 01/14/2015 RDWCV 18.3* 01/23/2015 RDWCV 15.8* 01/14/2015 NA 145 01/23/2015 NA 141 01/14/2015 K 3.9 01/23/2015 K 3.7 01/14/2015 CL 103 01/23/2015 CL 99 01/14/2015 CO2 27 01/23/2015 CO2 29 01/14/2015 BUN 19* 01/23/2015 BUN 14 01/14/2015 CREATININE 0.84 01/23/2015 CREATININE 0.92 01/14/2015 GLUCOSE 83 01/23/2015 GLUCOSE 95 01/14/2015 CALCIUM 10.1 01/23/2015 CALCIUM 9.7 01/14/2015 LDH 223* 01/23/2015 LDH 278* 01/14/2015 Labs today show a white count of 4.5, hemoglobin of 8.8, platelets of 187. Electrolytes are normal with a creatinine which has improved and is now 1.17. LFTs are normal. Albumin is 3.7. RADIOLOGY STUDIES: None ASSESSMENT: Myriam Vivas is a 64 y.o. female with Primary Refractory DLBCL. She recently underwent an Autologous pb stem cell transplant. 1. /BMT - DAY + 38 - Conditioning regimen: CBV - Day 0 = 12/23/14 - Complications included n/v/d. Low grade fevers thought to be d/t blood count recovery; hemoirrhoids, anorexia - minimal transfusion support - CBC has engrafted. - NO transfusions needed 2. ID - No focal s/s of infection. No infectious complications while hospitalized. - At time of discharge, both Keflex and Fluc were discontinued, given the absence of infection and count recovery - Remain on Acyclovir 800mg po BID for One year post transplant. - Continue PJP prophylaxis with Bactrim DS 1 tablet BID on Saturdays and Sundays, and continue for six months post transplant. 3. FEN/Renal - Improved appetite- She met with the local float remover last week. - She is hungry and has an appetite. - Reviewed better tolerance by taking in small amounts frequently. - Bun/Cre normal. - D/C oral magnesium supplement, given normal lab value and increased appetite. 4. Cardio/Pulmonary -No issues 5. GI/ Hepatic - Minimally elevated LDH. Doubtful it is lymphoma, given how soon out from transplant she is. May be related to bone marrow recovery. Will follow. - Minimal nausea. Relieved with current antiemetic regimen. 7. Psychosocial - Depression and Anxiety has been an issue this week. We discussed resuming sessions with her counselor. Will try and cut back on her daily use of Ativan. She is using 2 ativan per day (one to help w/ napping and sleeping). We will discuss this in the future to help wean her off. - she is going to call her therapist for an appt with her anxiety this week. - Reviewed the importance of daily activity, starting out with very small increments, ie. Walking 5minutes/day and building up slowly. 6. Disposition - Living back at home. Great support from friends and Carlos. - Return to work - Myriam states she is starting to get bored, but not sure that she has the stamina to return to work yet. We'll plan to see her on February and reassess. If she wants to return to work prior to that time, she can call Светлана Boone at [facility] [place] [place] who can write the letter of permission toreturn to work part-time. IMMEDIATE PLANS: - Continue Bactrim DS 1 tablet BID on Saturdays and Sundays. - Continue Acyclovir BID. - Next appt with Dr. Mondragon in 4- 6 weeks at [facility]. - restaging mid Mar with labs and PET. No BMBX needed. CC: Izzy Hinds MD documented in this encounter Plan of Treatment Upcoming Encounters Date Type Department Care Team (Late Contact Info) Description 12/07/2023 12:00 PM EDT Office Visit Dermatology at [facility] [address] [place] [address] Juan F Chappell MD [facility] DR RANDEE [place] [address] documented as of this encounter Visit Diagnoses Diagnosis Lymphoma Other malignant lymphomas, unspecified site, extranodal and solid organ sites documented in this encounter Care Teams Manager Endoscopy Relationship Specialty Start Date End Date Maine Dunn PA PCP - General 04/08/14 02/13/15 documented as of this encounter
--- OUTSIDE RECORDS SUMMARY | 2023-10-28 00:43 | XMS_ITS | Encounter Summary ---
Author Organization Formerly [facility] Address [facility] [place] [address] Care Team Providers Care Cataract Lens Generator Name Role Phone Belén Griffin MD Primary Care Provider [phone] Reason for Visit * Auth/Cert - Closed Specialty Diagnoses / Procedures Referred By Perry t Referred To Contact Diagnoses DLBCL Procedures PRO BONE MARROW ASPIRATION W/BX THROUGH SAME INCISION/SITE PRO BONE MARROW BX, NEEDLE/TROCAR ([facility]) BONE MARROW ASP PERFORMED W/BX THRU BX INCISION ([facility]URG) BONE MARROW,BIOPSY Referral ID Status Reason Start Date Expiration Date Visits Re quested Visits Authorized [id number] Closed 1 1 Encounter Details Date Type Department Care Team (Latest Contact Info) Description 04/02/2015 10:51 AM EST - 04/02/2015 11:59 PM EST Hospital Encounter [place]ology [place] [address] Lymphoma, unspecified lymphoma, unspecified lymphoma region (Primary Dx); Lymphoma; Hypokalemia Discharge Disposition: Home Social History Tobacco [...] Sig Dispensed Refills Start Date End Date diphenhydrAMINE/alumin um-magnesium hydroxide/lidocaine (BMX) 1:1:1 Oral Suspension Take 5 mLs by mouth 4 times daily as needed. Apply to mouth ulcers as needed. 100 mL 3 03/19/2015 05/07/2015 LORazepam (ATIVAN) 0.5 mg TabletIndications:DLBC L (diffuse large B cell lymphoma),Stem cell donor,Examination of participant in clinical trial Take 1 tablet by mouth every 6 hours as needed for Anxiety. 30 tablet 1 03/05/2015 05/07/2015 hydrocortisone 1 % Cream Apply topically 4 times daily. Preparation-H. To hemorrhoids for discomfort 30 g 0 01/03/2015 10/02/2015 escitalopram oxalate (LEXAPRO) 10 mg Tablet Take 1 tablet by mouth daily. 30 tablet 12 01/03/2015 12/25/2015 ondansetron (ZOFRAN) 8 mg TabletIndications:Lymp fawn,DLBCL (diffuse large B cell lymphoma),Stem cell donor,Examination of participant in clinical trial Take 1 tablet by mouth every 8 hours as needed for Nausea. 20 tablet 3 11/04/2014 05/07/2015 prochlorperazine (COMPAZINE) 10 mg Tablet Take 1 tablet by mouth every 6 hours as needed for Nausea. 30 tablet 1 10/25/2014 05/07/2015 docusate sodium (COLACE) 100 mg Capsule Take 100 mg by mouth 2 times daily. 10/02/2015 senna (SENOKOT) 8.6 mg Tablet Take 1 tablet by mouth daily. 12/25/2015 documented as of this encounter Progress Notes * Lei Castañeda RN - 04/02/2015 11:35 AM EST Patient Name: Myriam Vivas Patient Age: 64 y.o. Birthdate: 1950 Admit date: 04/02/2015 Attending Physician: Kimberly Mondragon MD Access visit. Mediport accessed without incident. Blood specimens obtained & sent to lab. See MAR and/or flowsheet. documented in this encounter Plan of Treatment Upcoming Encounters Date Type Department Care Team (Late st Contact Info) Description 12/07/2023 12:00 PM EDT Office Visit Dermatology at [facility] [address] [place] [phone] Juan F Chappell MD [facility] [address] [place] [address] documented as of this encounter Procedures Procedure Name Priority Date/Time Associated Diagnosis Comments PARVO B19 RESULT STAT 04/02/2015 11:2 5 AM EST Lymphoma, unspecified lymphoma, unspecified lymphoma region PARVO B19 PCR STAT 04/02/2015 11:25 AM EST Lymphoma, unspecified lymphoma, unspecified lymphoma region HEMOGRAM STAT 04/02/2015 11:25 AM EST Lymphoma, unspecified lymphoma, unspecified lymphoma region EBV PCR QUANTITATIVE (JUNE) STAT 04/02/2015 11:25 AM EST Lymphoma, unspecified lymphoma, unspecified lymphoma region CMV PCR, QUANTITATIVE STAT 04/02/2015 11:25 AM EST Lymphoma, unspecified lymphoma, unspecified lymphoma region ABO/RH TYPING STAT 04/02/2015 11:25 AM EST Lymphoma CBC (WITH DIFF) STAT 04/02/2015 11:25 AM EST Lymphoma, unspecified lymphoma, unspecified lymphoma region ANTIBODY SCREEN STAT 04/02/2015 11:25 AM EST Lymphoma TYPE AND SCREEN (MC/CGP/MARTHA) STAT 04/02/2015 11:25 AM EST Lymphoma LACTATE DEHYDROGENASE STAT 04/02/2015 11:25 AM EST Lymphoma COMPREHENSIVE METABOLIC PANEL STAT 04/02/2015 11:25 AM EST Lymphoma LAB SCAN 03/31/2015 12:00 AM EST documented in this encounter Results * PARVO B19 result (04/02/2015 11:25 AM EST) [id number] Result Negative [facility] [id number] Interp RESULT: The [id number] target DNA was not detected METHOD: This test was performed using real time PCR to amplify the VP2 gene sequence found in Parvovirus B19. Viral DNA was isolated and amplified using TaqMan primers (2) and probe specific to the above sequence, and analyzed using the [employer] Smart[employer]er. Control reactions for positive and negative samples gave expected results. This test was developed and its performance determined by the [facility] Molecular Pathology Laboratory. It has not been cleared or approved by the U.S. Food and Drug Administration. This test is used for clinical purposes and should not be considered investigational or for research purposes. The Molecular Pathology Laboratory is certified by the Clinical Laboratory Improvement Act of 1988 and as such is allowed to perform high complexity clinical testing. [facility] Comment: [VERIFIED DATE]04.07.15 Verified By:Preethi Morgan (Electronic Signature) Blood specimen (specimen) 04/02/2015 11:25 AM EST 04/02/2015 2:42 PM EST Narrative Resulting Agency Comment Spec In Lab Kimberly Mondragon MD HEMATOLOGY ORDER AYO [facility] [place] [address] * (ABNORMAL) Hemogram (04/02/2015 11:25 AM EST) White Blood Cell 0.8(Criti jenaro) 4.0 - 10.0 x10(3)/mc L CERNER MILLENNIUM Comment: Manual differential not performed. See previous results from last 24 hrs.. This result has been called to NOT CALLED by TRUDI ANDERSON on 04 02 2015 at 1211, and has not been read back. previous critical called Red Blood Cell 2.58(L) 3.93 - 5.22 x10(6)/mc L CERNER MILLENNIUM Hemoglobin 8.6(L) 11.2 - 15.7 gm/dL CERNER MILLENNIUM Hematocrit 24.2(L) 34.0 - 45.0 % CERNER MILLENNIUM Mean Cell Volume 93.8 79.0 - 94.0 fL CERNER MILLENNIUM Mean Cell Hemoglobin 33.3(H) 26.6 - 32.2 pg CERDANIA MILLENNIUM Mean Cell Hemoglobin Concentration 35.5 32.0 - 36.5 gm/dL CERDANIA MILLENNIUM Platelet 132(L) 145 - 370 x10(3)/mc L CERNER MILLENNIUM RDW Standard Deviation 43.3 35.0 - 46.0 fL CERNER MILLENNIUM RDW coefficient of variation 12.8 10.9 - 14.4 % CERNER MILLENNIUM Mean Platelet Volume 9.3 9.0 - 12.0 fL CERDANIA BUCHANANENNIUM Blood specimen (specimen) 04/02/2015 11:25 AM EST 04/02/2015 11:57 AM EST Narrative Resulting Agency Comment Spec In Lab Kimberly Mondragon MD HEMATOLOGY ORDER AYO G[facility]RAN GEEIUM * Antibody screen (04/02/2015 11:25 AM EST) Ab Screen Interp Negative GIBRAN GEEIUM Expires at [id number] on: 04/05/2015 GIBRAN GEEIUM Blood specimen (specimen) 04/02/2015 11:25 AM EST 04/02/2015 12:11 PM EST Narrative Resulting Agency Comment Spec In Lab Kimberly Mondragon MD BLOOD BANK LAB O RDERABLES Performing Organization Address City/[facility]/ZIP Co de Phone Number GIBRAN GEEIUM * ABO/Rh Typing (04/02/2015 11:25 AM EST) ABORH Type B Pos GIBRAN GEEIUM Blood specimen (specimen) 04/02/2015 11:25 AM EST 04/02/2015 12:11 PM EST Narrative Resulting Agency Comment Spec In Lab Kimberly Mondragon MD BLOOD BANK LAB O RDERABLES [facility] GEEIUM * Lactate Dehydrogenase (04/02/2015 11:25 AM EST) Lactate Dehydrogenase 155 110 - 220 unit/L CERNER MILLENNIUM Blood specimen (specimen) 04/02/2015 11:25 AM EST 04/02/2015 11:57 AM EST Narrative Resulting Agency Comment Spec In Lab Kimberly Mondragon MD CHEMISTRY ORDERA LAENNA CERNER MILLENNIUM * (ABNORMAL) Comprehensive metabolic panel (non-fasting) (04/02/2015 11:25 AM EST) Glucose 126 65 - 199 mg/dL CERNER MILLENNIUM Comment:Diabetes: >=200 mg/d L plus symptoms Blood Urea Nitrogen 18 8 - 18 mg/dL CERNER MILLENNIUM Creatinine 1.07 0.70 - 1.20 mg/dL CERNER MILLENNIUM Comment: Please note that the pediatric reference intervals supplied above were not validated at [facility]. Results from pediatric patients should be interpreted in conjunction to the patient's age, height and muscle mass. Sodium 144 135 - 145 mmol/L CERNER MILLENNIUM Potassium 3.4(L) 3.5 - 5.0 mmol/L CERNER MILLENNIUM Comment: Please note: ??Patients with WBC >100,000 may have falsely elevated Potassium levels. ??For accurate Potassium quantification in these patients send serum separator tube (gold top) for subsequent determinations. ??Contact the Clinical Chemistry Laboratory if there are any questions. Chloride 105 98 - 107 mmol/L CERNER MILLENNIUM Carbon Dioxide 26 22 - 31 mmol/L CERNER MILLENNIUM Anion Gap 13 5 - 15 mmol/L CERNER MILLENNIUM Calcium 9.4 8.5 - 10.5 mg/dL CERNER MILLENNIUM Protein, Total 6.5 6.1 - 8.0 gm/dL CERNER MILLENNIUM Albumin 4.4 3.2 - 5.2 gm/dL CERNER MILLENNIUM Aspartate Aminotransferase 17 0 - 30 unit/L CERNER MILLENNIUM Alanine Aminotransferase 18 0 - 30 unit/L CERNER MILLENNIUM Alkaline Phosphatase 74 40 - 104 unit/L CERNER MILLENNIUM Bilirubin, Total 0.9 0.2 - 1.3 mg/dL CERNER MILLENNIUM Bilirubin, Direct 0.2 0.0 - 0.3 mg/dL CERNER MILLENNIUM Est Glomerular Filtration Rate 52(L) >=60 [facility] Comment: This estimated GFR (eGFR) value was [...] the following links into your internet browser. [email or web address] Blood specimen (specimen) 04/02/2015 11:25 AM EST 04/02/2015 11:57 AM EST Narrative Resulting Agency Comment Spec In Lab Kimberly Mondragon MD CHEMISTRY ORDERIIZI group Performing Organization Address [facility] de Phone Number [facility] * CMV PCR, Quantitative (04/02/2015 11:25 AM EST) Pathologist [facility] CMV Quant (Numeric) <137 IU/mL [facility] CMV Quant (Interp) Result: Not Detected Sample: plasma Method: This quantitative real-time PCR assay was performed in the [facility] Molecular Pathology Laboratory using ??NEPTALI?? AmpliPrep/NEPTALI? ? TaqMan?? CMV Test ([employer] Linear Range: 137 IU/mL - 9,100,000 IU/mL (2.14 log ? 6.96 log IU/mL) Limit of Detection: 91 IU/mL (1.96 log IU/mL) [facility] Blood specimen (specimen) 04/02/2015 11:25 AM EST 04/04/2015 12:54 PM EST Narrative Resulting Agency Comment Spec In Lab Kimberly Mondragon MD MOLECULAR NICK RAM Performing Organization Address [facility] de Phone Number [facility] * EBV PCR Quantitative (04/02/2015 11:25 AM EST) Pathologist [facility] EBV PCR,Quantitative NONE DETECTED. ?Lower limit of detection is 500 copies/mL. GIBRAN COREAS Comment: Test performed by [facility] [employer], [place], [place]. Analyte Specific Reagent: This test was developed and its performance characteristics determined by [facility]. It has not been cleared or approved by the U.S. Food and Drug Administration. Blood specimen (specimen) 04/02/2015 11:25 AM EST 04/02/2015 12:11 PM EST Narrative Resulting Agency Comment Spec In Lab Kimberly Mondragon MD LAB SEND OUT ORD ERABLES GIBRAN COREAS * SCAN DOC: LAB (03/31/2015 12:00 AM EST) Scanning Provider MEDIA MGR SCAN EXT O RDR/RSLT documented in this encounter Visit Diagnoses Diagnosis Lymphoma, unspecified lymphoma, unspecified lymphoma region- Primary Hypokalemia Hypopotassemia documented in this encounter Administered Medications Inactive Administered Medications - up to 3 most recent administrations Medication Order MAR Action Action Date Dose Rate Site heparin, porcine 100 unit/mL flush 500 Units 500 Units, Intravenous, ONCE, 1 dose, On Tue04/02/15 at 1145, Routine Given 04/02/2015 11:25 AM EST 500 Units sodium chloride 0.9 % flush 10 mL 10 mL, Intravenous, EVERY 1 MIN PRN, Starting on Tue04/02/15 at 1121, Until Cece 04/03/15 at 0441, Chaplain, Routine Given 04/02/2015 11:25 AM EST 20 mLs documented in this encounter Care Teams Cataract Lens Generator Relationship Specialty Start Date End Date Belén Griffin MD [address] [place] [address] PCP - General Family Medicine 03/05/15 05/06/15 documented as of this encounter
--- OUTSIDE RECORDS SUMMARY | 2023-10-28 00:43 | XMS_ITS | Encounter Summary ---
Author Organization [facility] Address [facility] [place] [address] Care Team Providers Care Senior Air Director Name Role Phone Belén Griffin MD Primary Care Provider [phone] Reason for Visit * Reason Onset Date Comments Labs Only 04/28/2015 lab tracking Encounter Details Date Type Department Care Team (Late st Contact Info) Description 04/28/2015 Telephone Hematology/Oncology at [address] [address] Ana Paula Benz RN Labs [...] Encounter - Ana Paula Benz RN - 04/28/2015 9:16 AM EDT LAB TRACKING Diagnosis: Lymphoma LABS ORDERED: CBC mondays MEDICATIONS: Assessment: Dr. miller reviewed labs Plan: continue weekly cbc's DATE WBC HGB/HCT PLTS ANC MEDS/PLAN LOCATION 04/28/15 4.56 9.3/27.6 224k 3.61 augmentin d/c'd thurs. 04/23 [facility] 05/0404/21/15 6.26 9.2/26.4 137k 5.20 Continued as planned nv 04/2704/14/15 6.03 9.7/27.6 129k 4.98 continued as planned [facility] 04/20 04/07 38.09 0.7/27.8 175 32.38 Weaning off Lexapro. Continues off Acyclovir and Bactrim [facility] 2.03/31/15 0.98 8.7/24.2 126k .09 Pt to have bone marrow biopsy tue and pet scan see Birgit NV 04/0703/24/15 5.36 10.2/28.1 123 4.22 NV 03/17/15 17.34 9.6/27.2 89 8.84 NV documented in this encounter Plan of Treatment Upcoming Encounters Date Type Department Care Team (Late st Contact Info) Description 12/07/2023 12:00 PM EDT Office Visit Dermatology at [address] [address] Juan F Chappell MD [facility] DR RANDEE [place] [address] documented as of this encounter Visit Diagnoses Not on filedocumented in this encounter Care Teams Senior Air Director Relationship Specialty Start Date End Date Belén Griffin MD [facility] [address] [address] PCP - General Family Medicine 03/05/15 05/06/15 documented as of this encounter
--- OUTSIDE RECORDS SUMMARY | 2023-10-28 00:43 | XMS_ITS | Encounter Summary ---
Author Organization [facility] Address [facility] [place] [address] Care Team Providers Care Pointer Machine Operator Name Role Phone Maine Dunn Primary Care Provider [phone] Reason for Visit * Reason Onset Date Comments Nutrition Counseling 02/10/2015 Encounter Details Date Type Department Care Team (Late st Contact Info) Description 02/10/2015 8:30 AM EST Telephone Hematology [place] [phone] [address] [facility] [place] [address] Nutrition Counseling Social History Tobacco Use Types [...] Telephone Encounter - Markell Drew RD - 02/10/2015 12:49 PM EST [facility] Dietitian Phone Call Assessment Patient and diagnosis: Myriam Vivas is a 64yo female with Primary Refractory DLBCL. 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 HPI: Patient Active Problem List Diagnosis Code ??? Lymphoma C85.90 ??? Depression with anxiety F41.8 ??? Hypokalemia E87.6 ??? Hypomagnesemia E83.42 ??? Neutropenia D70.9 ??? Chemotherapy adverse reaction T45.1X5A ??? 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 She reports she does get thirsty, no longer having issues w/ fluid intake. Appetite isn't as vigorous as it was before BMT. Bowels are more consistent. She would like to return to work ~ 5 hrs/wk in about a week. Eating wide variety of foods and tastes is good. Hasn't had to take nausea meds. Energy levels are improving. Able to get out daily to do errands or walks. We discussed she will schedule follow up with myself in [facility] or colleagues in [facility] if she feels it is needed. documented in this encounter Plan of Treatment Upcoming Encounters Date Type Department Care Team (Late st Contact Info) Description 12/07/2023 12:00 PM EDT Office Visit Dermatology at [facility] [address] [place] [address] Juan F Chappell MD [facility] DR R[address] [address] documented as of this encounter Visit Diagnoses Not on filedocumented in this encounter Care Teams Pointer Machine Operator Relationship Specialty Start Date End Date Maine Dunn PA PCP - General 04/08/14 02/13/15 documented as of this encounter
--- OUTSIDE RECORDS SUMMARY | 2023-10-28 00:43 | XMS_ITS | Encounter Summary ---
Author Organization [facility] [place] [address] Care Team Providers Care Water Ski Assembler Name Role Phone Belén Griffin MD Primary Care Provider [phone] Encounter Details Date Type Department Care Team (Latest Contact Info) Description 04/24/2015 11:58 AM EST - 04/24/2015 11:59 PM EST Hospital Encounter [place] [phone] Lymphoma, unspecified lymphoma, unspecified lymphoma region Discharge Disposition: Home Social History Tobacco [...] Sign Reading Time Taken Comments Blood Pressure 119/64 04/24/2015 2:53 PM EST Pulse 110 04/24/2015 3:45 PM EST Temperature 37 ??C (98.6 ??F) 04/24/2015 2:53 PM EST Respiratory Rate 18 04/24/2015 3:45 PM EST Oxygen Saturation 98% 04/24/2015 3:45 PM EST Inhaled Oxygen Concentration - - Weight - - Height - - Body Mass Index - - documented in this encounter Medications at Time of Discharge Medication Sig Dispensed Refills Start Date End Date diphenhydrAMINE-acetam inophen (TYLENOL PM) 25-500 mg TabletIndications:Othe r drug-induced neutropenia Take by mouth every evening. Reported on 03/24/2016 amoxicillin-clavulanat e (AUGMENTIN) 875-125 mg TabletIndications:Othe r drug-induced neutropenia,Acute URI Take 1 tablet by mouth 2 times daily. 20 tablet 0 04/18/2015 05/07/2015 diphenhydrAMINE/alumin um-magnesium hydroxide/lidocaine (BMX) 1:1:1 Oral Suspension [...] as of this encounter Progress Notes * Lakesha Gil RN - 04/24/2015 3:27 PM EST Patient Name: Myriam Vivas Patient Age: 64 y.o. Birthdate: 1950 Admit date: 04/24/2015 Attending Physician: No att. providers found TIME TREATMENT STARTED: 1520 TIME TREATMENT ENDED: 1545 Myriam Vivas, 64 y.o. female with diagnosis of DLBCL s/p Auto SCT 4 months ago, is here for pentamidine inhalation treatment. This is patient's first time receiving pentamidine inhalation. Breath sounds prior to administration clear to auscultation bilaterally throughout. No cough noted.Patient denied any asthma or recent cough. Patient tolerated pentamidine treatment well. Following breath sounds were clear to auscultation bilaterally throughout. No coughing during treatment. HR post 110 - verified HR trend has been in the 100's. Oxygen saturation mid 90's on RA. Patient reportedshe felt well denied any SOB. Patient was able to have pentamidine titrated from 6L at start to 8L. S: Pt. offers no complaints at this time. O: Orders independently verified for correct drug name, route and dosage per patient's height, weight and BSA by Lakesha Gil RN and onsite pharmacist REACTIONS (DESCRIPTION, TIME, INTERVENTION AND EFFECTIVENESS) None A: Pt. Tolerated treatment well. Myriam Vivas confirms that all questions and issues have been addressed. P: Return to clinic as scheduled. documented in this encounter Plan of Treatment Upcoming Encounters Date Type Department Care Team (Late st Contact Info) Description 12/07/2023 12:00 PM EDT Office Visit Dermatology at [facility] [address] [place] [phone] Juan F Chappell MD [facility] DR RANDEE [place] [address] documented as of this encounter Visit Diagnoses Diagnosis Lymphoma, unspecified lymphoma, unspecified lymphoma region documented in this encounter Administered Medications Inactive Administered Medications - up to 3 most recent administrations Medication Order MAR Action Action Date Dose Rate Site pentamidine (PENTAM) solution 300 mg 300 mg, Inhalation, ONCE, 1 dose, On Cece 04/24/15 at 1500, Routine, Indication for (Active or Suspected): Prophylaxis Given 04/24/2015 3:21 PM EST 300 mg documented in this encounter Care Teams Water Ski Assembler Relationship Specialty Start Date End Date Belén Griffin MD [address] [facility] [address] [place] [address] PCP - General Family Medicine 03/05/15 05/06/15 documented as of this encounter
--- OUTSIDE RECORDS SUMMARY | 2023-10-28 00:43 | XMS_ITS | Encounter Summary ---
Author Organization [facility] Address [facility] [place] [address] Care Team Providers Care Paddle Dyeing Machine Operator Name Role Phone Belén Griffin MD Primary Care Provider [phone] Reason for Visit * Auth/Cert - Closed Specialty Diagnoses / Procedures Referred By Perry t Referred To Contact Diagnoses DLBCL Procedures PRO BONE MARROW ASPIRATION W/BX THROUGH SAME INCISION/SITE PRO BONE MARROW BX, NEEDLE/TROCAR ([facility] MSURG) BONE MARROW ASP PERFORMED W/BX THRU BX INCISION ([facility] MSURG) BONE MARROW,BIOPSY Referral ID Status Reason Start Date Expiration Date Visits Re quested Visits Authorized [id number] Closed 1 1 Encounter Details Date Type Department Care Team (Late st Contact Info) Description 04/02/2015 9:30 AM EST - 04/02/2015 10:30 AM EST Surgery [place] [address] Kimberly Mondragon MD [facility] [place] [address] ([facility] MSURG) BONE MARROW ASP PERFORMED W/BX THRU BX INCISION (WRVU 0.16) Social History Tobacco Use Types Packs/Day Years [...] Sign Reading Time Taken Comments Blood Pressure 102/58 04/02/2015 9:59 AM EST Pulse 83 04/02/2015 9:59 AM EST Temperature 36.5 ??C (97.7 ??F) 04/02/2015 8:32 AM ES T Respiratory Rate 18 04/02/2015 9:59 AM EST Oxygen Saturation 100% 04/02/2015 10:07 AM EST Inhaled Oxygen Concentration - - Weight 59 kg (130 lb) 04/02/2015 8:32 AM EST Height 157.5 cm (5' 2.01) 04/02/2015 8:32 AM ES T Body Mass Index 23.77 04/02/2015 8:32 AM EST documented in this encounter Discharge Instructions * Discharge Instructions* Justin Bess RN - 04/02/2015 8:28 AM EST OUTPATIENT SURGERY POST-OPERATIVE INSTRUCTIONS BONE MARROW BIOPSY SITE 1. You have had a bone marrow aspiration and or/biopsy, which is like having an operation with a tiny, deep incision. 2. Do Not do any strenuous work today, like housework, yard work, sports of any kind or lifting more than 5 pounds as it may cause your bone marrow site to bleed. 3. To avoid infection, leave the clear plastic dressing on the site for three days. You may shower,bathe, or swim as you wish, provided the clear dressing remains intact, and all sides of the dressing are firmly adhered to the skin. In the unlikely event that a portion or the entire dressing should come off, you may replace it with a conventional cloth band aid. However, you will no longer be able to get the site wet until three days have passed, as a conventional band aid is not waterproof and the site is no longer a sterile area. 4. It is not unusual for the site to leak a scant amount of blood, so do not be alarmed to see a small collection, or ???puddle?? of blood under the dressing. Wound healing will still occur. 5. If you are uncertain if there is an increase in any leaking from your bone marrow site, roll up a towel, lie down on a firm surface, place the towel directly under the puncture site to apply pressure, and rest there for one half hour. Direct, FIRM thumb pressure applied to the site for 10 minutes works well as an alternative method. Leave the dressing on. 6. Most people do not experience much discomfort after this procedure, but if you do, you should ask your physician what to take. AVOID ASPIRIN PRODUCTS as these interfere with clotting. 7. After three days, remove your dressing and leave it off, so the air can get to the site to finish the healing process. 8. NOTIFY YOUR DOCTOR FOR: a. Redness b. Heat c. Fever d. Swelling e. Drainage f. Increased pain g. Foul odor (which may not be apparent through the dressing) If you are having problems or have any additional concerns or questions: Between 8am and 5pm - Call the Hematology Clinic at . After 5pm or on a weekend: Call the [facility] owner operator tanker truck driver at and ask for the physician community organization director covering for your doctor. Instructions following sedation You may have received medication before and/or during your procedure, which affects judgement and reaction time. Use caution with stairs. Do not drive, operate machinery, drink alcoholic beverages, or make any legal decisions for 24 hours. You may eat a regular diet as tolerated. Do not smoke if you are alone. IV site -- slight redness, or tenderness is normal, you can use a warm compress. If tenderness and redness increases or foul drainage occurs, please contact your [facility] [address] [address] ??? [place] [address] ??? [phone] ??? [email or web address] [employer] ??? [facility] ??? [facility] ??? [facility] documented in this encounter Medications at Time [...] daily. 12/25/2015 documented as of this encounter H&P Notes * Kimberly Burnett APRN - 04/02/2015 9:20 AM EST Images from the original note were not included. 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 Assessment: Cardiovascular: Rhythm: Regular Rate: Normal Pulmonary: Breath sounds clear to auscultation ASA: 2: Patient with mild systemic disease Mallampati: III: only the base of the uvula can be seen H&P reviewed: Yes Relevant diagnostic studies: None Confirm NPO status: Yes, Date and Time of last intake: 04/01/15 at 2100 History of anesthetic complications: No Current medications reviewed: Yes Allergies reviewed: Yes Alcohol use: None, Date and Time of last drink: Drug use: None Sedation Plan: moderate (conscious sedation) The sedation plan, its benefits and risks, and alternatives were discussed with the patient. The planned procedure, its benefits and risks, and alternatives were discussed with the patient. The patient consented to the procedure. Discharge to: Hotel with significant other. Patient returns tomorrow for PET scan. Kimberly Burnett MSN, ENTEROSTOMAL NURSE Nurse Practitioner Section of Hematology/Oncology [facility] Office phone: documented in this encounter Procedure Notes * Kimberly Burnett APRN - 04/02/2015 10:05 AM ESTProcedure(s): HC BONE MARROW ASPIRATION PERFORMED W BIOPSY THROUGH BX INCISION Pre-Procedure Diagnose(s): DLBCL (diffuse large B cell lymphoma); Neutropenia, unspecified type BONE MARROW BIOPSY AND ASPIRATION PROCEDURE NOTE Bone Marrow Biopsy & Aspiration with Conscious Sedation Date/Time of Procedure: April 02, 2015 at 10:00am Proceduralist: KIMBERLY BURNETT APRN, RN, MS, WOOD DRILL OPERATOR DIAGNOSIS: Diffuse Large B- cell Lymphoma Pre-Procedure: (x) Consent signed and on chart. (x) CBC drawn within 3 days. (x) Medications/Allergies (x) H & P complete Prior to start of procedure the following is verified in a TIME OUT: (x) Patient identity (x) Planned procedure (x) Safety concerns IV ACCESS: Per sedation RN PAIN INTERVENTION: Per sedation RN Sterile Condition: Chlorohexidine was used to sterilize the area. Sterile drapes were used to create a sterile field. Local Anesthesia: 1% Lidocaine 18mLs with Sodium Bicarbonate 8.4% 2mLs PROCEDURE: A bone marrow biopsy and aspiration was performed on the RIGHT posterior iliac crest. [id number] dressing placed and pressure applied to site(s) for 30 minutes following the procedure. Estimated Blood Loss: minimal Complications: none POST INTERVENTION CARE & PAIN ASSESSMENT: Per [facility] nurses. Follow-up: Written/Verbal instructions for site care given to patient per [facility] nurses. Follow-up with Physician as instructed. Kimberly Burnett, MSN, ENTEROSTOMAL NURSE Nurse Practitioner Section of Hematology/Oncology [facility] Office phone: documented in this encounter Plan of Treatment Upcoming Encounters Date Type Department Care Team (Late st Contact Info) Description 12/07/2023 12:00 PM EDT Office Visit Dermatology at [facility] [address] [address] Juan F Chappell MD [facility] [place] [address] documented as of this encounter Procedures Procedure Name Priority Date/Time Associated Diagnosis Comments CHROMO REPORT ACQUIRED Routine 6 12:05 PM EST IMMUNOPHENOTYPING FLOW CYTOMETRY (BLOOD) Routine 04/02/2015 10:03 AM EST BONE MARROW FINAL REPORT Routine 016 10:03 AM EST IRON STAIN, BONE MARROW Routine 04/02/19 16 10:03 AM EST BONE MARROW PANEL (MC/CGP/APD) Routine 04/02/2015 10:03 AM EST ([facility] MSURG) BONE MARROW BIOPSY; DIAGNOSTIC (WRVU 1.28) 04/02/2015 9:42 AM EST DLBCL ([facility] MSURG) BONE MARROW ASP PERFORMED W/BX THRU BX INCISION (WRVU 0.16) 04/02/2015 9:42 AM EST DLBCL DIFFERENTIAL, MANUAL Routine 04/02/2015 9:08 AM EST HEMOGRAM Routine 04/02/2015 9:08 AM EST CBC (WITH DIFF) Routine 04/02/2015 9:08 AM EST ([facility] MSURG)BONE MARROW ASP PERFORMED W/BX THRU BX INCISION Routine 04/02/2015 8:20 AM EST ([facility] MSURG) BONE MARROW BIOPSY; DIAGNOSTIC Routine 04/02/2015 8:20 AM EST documented in this encounter Results * chromo report acquired (04/02/2015 12:05 PM EST) Cytogenetics Acquired Report Final Report ? [id number] Specimen Type: Bone Marrow Specimen Condition: 3.5mL, -fat, spicules Collection Date/Time: 04/02/2015 10:03 Received Date/Time: 04/02/2015 13:52 Indication: Lymphoma ---Results--- Normal karyotype ---Karyotype--- 46,XX[20] ---Preparation-- - Culture Type: 24 hour short term culture Days in Culture: 1 Banding Method: G-banding Banding Level: 400 bands FISH Method: N/A ---Analysis--- Cultures Analyzed: 1 Metaphase Cells Counted: ??30 Metaphase Cells Analyzed: ??20 Metaphase Cells Karyotyped: ??2 ---Interpretatio n--- Cytogenetic analysis of the bone marrow revealed a normal female karyotype of 46,XX. No clonal abnormalities were observed. ---Comments--- Correlation with clinical presentation and other laboratory testing results is suggested. 16 (Electronic Signature) Verified By: Rajeev MANN, Ph.D., [facility] [place] Director, Cytogenetics [facility] 04/02/2015 12:0 5 PM EST Kimberly Mondragon MD HEMATOLOGY ORDER AYO [facility] [place] [address] * Bone Marrow Final Report (04/02/2015 10:03 AM EST) Final Diagnosis [id number] ?Location: The signing pathologist has (i) examined the relevant preparation(s) for the specimen(s) and (ii) rendered or confirmed the diagnosis(es). . ? Bone Marrow Final DIAGNOSIS 1. Pancytopenia with agranulocytosis, peripheral blood. 2. Normocellular marrow with relative erythroid hyperplasia and ?? left-shifted granulopoiesis. 3. Benign lymphoid aggregate without evidence for involvement by B-cell ?? lymphoproliferative neoplasm (see Discussion). 04/05/15 DLO 04/05/15 Verified by: ? David MANN, Maryellen Roman ?Hematopathologist ?(Electronic Signature) The attending pathologist whose signature appears on this report has reviewed all diagnostic slides and has edited the gross and/or microscopic portion of the report in rendering the final pathologic diagnosis. DISCUSSION Flow cytometry immunophenotype analysis was performed concurrently on the bone marrow aspirate (see separate report) and identified a left-shifted granulocyte series and no monoclonal B-cell populations. In summary, the ?findings in this marrow are consistent with a maturation arrest in the granulocyte series, and the topographic appearance of granulocyte precursors suggests the beginning of recovery. A maturation arrest is often seen in the setting of a toxic exposure (e.g., viral infection, medication effect) and is usually self-limiting once the underlying trigger has resolved. Delayed onset neutropenia after autologous hematopoietic cell transplantation has been associated with ritixumab (Jason et al., Annals of Oncology 21: 169-1705, 2010). The megaloblastoid appearance of th erythroid precursors may reflect a treatment effect, nutritional deficiency or medication effect. A myelodysplastic syndrome is less likely, though not excluded. The specimen has been submitted for cytogenetic analysis and the restults will be reported separately when available. PERIPHERAL SMEAR The white blood cell count is 0.84K/uL, and the predominating cells are small lymphocytes. Occasional atypical lymphocytes are present, but no frankly abnormal forms are seen. Granulocytes are markedly reduced and left-shifted with only a single mature neutrophil s Mature monocytes and eosinophils are present and are morphologically normal. Normocytic anemia is evident (Hgb 8. g/dL; MCV 93.0 fL), but RBC morphology is generally unremarkabl Platelets are slightly decreased in number ( ? 135K/uL) but exhibit normal morphologic features. No blasts or abnormal circulating cell populations are appreciated. BONE MARROW ASPIRATE The bone marrow aspirate is particulate and cellular with a marked relative granulocytic hypoplasia such that the myeloid:erythroid ratio is estimated at 1:2. A neoplastic infilt is not identified. Myeloid maturation is reduced and left-shifted with an arrest at the promyelocyte stage but without an increase in blasts, and eosinophils are prominent throughout. Erythroid precursors show somewhat megaloblastoid maturation with nuclear- cytoplasmic dyssynchrony and occasional cells showing nuclear irregularities. Megakaryocyt are normal in number and morphology. Plasma cells and lymphocytes have normal morphology are not increased in number. An iron stain is performed and demonstrates that iron stores are present and distributed appropriately in macrophages. No increase in ring sideroblast is appreciated. . DIFFERENTIAL Neutrophils/bands 2%, Lymphocytes 10%, Monocytes 2%, Eosinophils 22%, Basophils 0%, Metamyelocytes 0%, Myelocytes 0%, Promyelocytes 7%, Blasts 2%, Erythroid precursors 50%, Plasma cells 4%. ENZYME CYTOCHEMISTRY N/A BONE MARROW BIOPSY and/or CLOT The decalcified bone marrow biopsy specimen consists of cortical and trabecular bone and hematopoietic tissue with focal areas of hemorrhagic aspiration artifact present. The bone marrow is roughly normocellular for age with an overall cellularity estimated at approximately 50%. Myeloid maturation is once again seen as reduced and left-shifted but without an increase in blasts. Granulocyte precursors are identified by the immunostain for myeloperoxidase and are concentrated in a normal location along the bony trabeculae. Active islands of maturing erythroid precursors are abundant throughout. Megakaryocytes a present in normal number, have a generally normal morphology and are distributed in a nor pattern throughout the bone marrow space without significant cluster formation or abnorma localization. There is a single, well-circumscribed lymphoid aggregate consisting of smal mature lymphocytes located in an interstitial location and having a benign appearance. Th immunostains for CD3 and PAX5 highlight the T- and B-cells, respectively, in the nodule and demonstate a T-cell predominance. The immunostain for CD20 is negative throughout. There are no granulomata or abnormal infiltrating nonhematopoietic cell populations. The bony trabeculae appear normal for age. Immunohistochemistry Studies: Formalin-fixed, paraffin-embedded tissue sections are studied using the B-SA system technique with appropriate positive and negative controls. ??These IHC studies provide the pathologist with adjunctive diagnostic information. Antibody specificity has been verifie by testing antibodies on a series of in-house tissues with known immunohistochemical performance characteristics. The clinical interpretation of any antibody positive stainin or its absence is evaluated within the context of clinical presentation, morphology, histopathological criteria and other diagnostic tests. Block ?Antibody ? Result (Positive/Negative) A1 ? CD3 ? See above discussion ? CD20 ? PAX5 ? Myeloperoxidase CLINICAL INFORMATION Specimen: ? Bone marrow aspirate and biopsy, right Clinical Diagnosis: ? Lymphoma, s/p autoHCT with late pancytopenia Indication for Study: ?? Evaluate etiology of pancytopenia ?Flow Cytometry DIAGNOSIS 1. Left-shifted granulocyte series without an increased blast population ?? identified. 2. No monoclonal B-cell populations present (see Discussion). 04/02/15 DLO 04/04/15 Verified by: ? David MANN, Maryellen Roman ?Hematopathologist ?(Electronic Signature) DISCUSSION The majority of lymphocytes in this bone marrow aspirate specimen are CD3+ T-cells (71% of lymphocytes; 33% of total cells) and CD3-CD56+ NK cells constitute 26% of lymphocytes (12 of total cells). Essentially no B-cells are present, thus there is no immmunophenotypic evidence for involvement of the bone marrow by a monoclonal B-cell lymphoproliferative neoplasm. The granulocyte series is left-shifted by CD45/side scatter criteria but there . DISCUSSION is no increased blast population identified. These immunophenotypic findings support the morphologic impression (see separate report). Flow analysis is an ancillary study. A definite diagnosis requires correlation with the morphologic features of this process and if necessary, correlation with other ancillary studies like immunohistochemistry, enzyme cytochemistry and/or cyto/molecular genetics. This test was developed and its performance characteristics determined by the Clinical Flow Cytometry Laboratory at [facility]. It has not been cleared or approved by the U.S. Food and Drug Administration. ??The FDA has determined that such clearance or approval is not necessary. ??This test is used for clinical purposes. ??It should not be regarded as investigational or for research. ??This laboratory is certified under the Clinical Laboratory Improvement Act of 1988 (CLIA) as qualified to perform high complexity clinical laboratory testing. SPECIMEN PROCESSING FCM: [id number] Cells for immunophenotypic analysis were derived from bone marrow. ??CD45 vs side scatter gating was utilized to identify a lymphoid analysis region that comprises approximately 46-52% of all cells. The following markers were assessed: CD3, CD5, CD10, CD19, CD45, CD56, kappa light chain, and lambda light chain. CLINICAL INFORMATION 64 yo female with hx DLBL. Now with severe neutropenia after initial recovery after autologous HCT. 04/05/2015 2:07 PM EST [facility] BONE MARROW STRUCTURE / Unknown 04/02/2015 10:03 AM EST 04/02/2015 10:03 AM EST Kimberly Mondragon MD PATHOLOGY/CYTOLO GY ORDERABLES Performing Organization Address City/State/[facility] [[email or web address]] Co de Phone Number GIBRAN COREAS [facility] [place] [address] * Immunophenotyping Flow Cytometry (04/02/2015 10:03 AM EST) Immunophenotyping Flow See Comment GIBRAN COREAS Comment: When completed by the Pathologist, the Flow Cytometry Report ([id number]) will display under the Pathology Results section within eD. Bone marrow specimen (specimen) 04/02/2015 10:03 AM EST 04/02/2015 10:23 AM EST Narrative Resulting Agency Comment Spec In Lab Kimberly Mondragon MD HEMATOLOGY ORDER AYO GIBRAN GEEIUM * Iron Stain, Bone Marrow (04/02/2015 10:03 AM EST) Bone Marrow Iron Stain See Comment CERNER MILLENNIUM Comment:See Bone Marrow Repo rt [id number] under Hematopathology Reports. Bone marrow specimen (specimen) 04/02/2015 10:03 AM EST 04/02/2015 10:23 AM EST Narrative Resulting Agency Comment Spec In Lab Kimberly Mondragon MD HEMATOLOGY ORDER AYO GIBRAN BUCHANANENNIUM * (ABNORMAL) Differential, Manual (04/02/2015 9:08 AM EST) Lymphocyte Manual 50 % CE RNER MILLENNIUM Monocyte Manual 15 % CERN ER MILLENNIUM Eosinophil Manual 13 % CE RNER MILLENNIUM Basophil Manual 4 % CERN ER MILLENNIUM Metamyelocyte Manual 16 % CERNER MILLENNIUM Myelocyte Manual 1 % CER NER MILLENNIUM Promyelocyte Manual 1 % CERNER MILLENNIUM Neutrophil Absolute (ANC) - Manual 0.0(L) 1.5 - 6.3 x10(3)/m cL CERNER MILLENNIUM Neutrophil Absolute (ANC) - Automated 0.00(Critical ) 1.50 - 6.30 x10(3)/m cL CERNER MILLENNIUM Comment: Called by: [facility], Read back by: Yan White, Date-Time: 04 02 2015 1036. This result has been called to YAN WHITE by Rajani Weinstein on 04 02 2015 at 1036, and has been read back. Lymph Absolute Manual 0.4(L) 1.0 - 3.6 x10(3)/m cL CERNER MILLENNIUM Monocyte Absolute Manual 0.1(L) 0.2 - 1.0 x10(3)/m cL CERNER MILLENNIUM Eos Absolute Manual 0.1 0.0 - 0.5 x10(3)/m cL CERNER MILLENNIUM Baso Absolute Manual 0.0 0.0 - 0.2 x10(3)/m cL CERNER MILLENNIUM [place]on Absolute Manual 0.1(H) 0.0 - 0.0 x10(3)/m cL CERNER MILLENNIUM Myelo Absolute Manual 0.0 0.0 - 0.0 x10(3)/m cL CERNER MILLENNIUM Promyelo Absolute Manual 0.0 0.0 - 0.0 x10(3)/m cL CERNER MILLENNIUM Total Cells Ct 100 CERNE R MILLENNIUM Plat estimate Decreased CERNER MILLENNIUM RBC Morphology Normal CERNE R MILLENNIUM Plat, Giant Less than 1 /HPF CERNER MILLENNIUM Blood specimen (specimen) 04/02/2015 9:08 AM EST 04/02/2015 9:31 AM EST Narrative Resulting Agency Comment Spec In Lab Kimberly Mondragon MD HEMATOLOGY ORDER AYO CERNER MILLENNIUM * (ABNORMAL) Hemogram (04/02/2015 9:08 AM EST) White Blood Cell 0.8(Criti jenaro) 4.0 - 10.0 x10(3)/mc L CERNER MILLENNIUM Comment: This result has been called to TREVOR WHITE by TRUDI ANDERSON on 04 02 2015 at 0946, and has been read back. Red Blood Cell 2.58(L) 3.93 - 5.22 x10(6)/mc L CERNER MILLENNIUM Hemoglobin 8.8(L) 11.2 - 15.7 gm/dL CERNER MILLENNIUM Hematocrit 24.0(L) 34.0 - 45.0 % CERNER MILLENNIUM Mean Cell Volume 93.0 79.0 - 94.0 fL CERNER MILLENNIUM Mean Cell Hemoglobin 34.1(H) 26.6 - 32.2 pg CERNER MILLENNIUM Mean Cell Hemoglobin Concentration 36.7(H) 32.0 - 36.5 gm/dL CERNER MILLENNIUM Platelet 135(L) 145 - 370 x10(3)/mc L CERNER MILLENNIUM RDW Standard Deviation 42.5 35.0 - 46.0 fL CERNER MILLENNIUM RDW coefficient of variation 12.7 10.9 - 14.4 % CERNER MILLENNIUM Mean Platelet Volume 9.1 9.0 - 12.0 fL GIBRAN COREAS Blood specimen (specimen) 04/02/2015 9:08 AM EST 04/02/2015 9:31 AM EST Narrative Resulting Agency Comment Spec In Lab Kimberly Mondragon MD HEMATOLOGY ORDER AYO GIBRAN COREAS documented in this encounter Visit Diagnoses Not on filedocumented in this encounter Administered Medications Inactive Administered Medications - up to 3 most recent administrations Medication Order MAR Action Action Date Dose Rate Site fentaNYL 50 mcg/mL multi-dose injection 25-50 mcg, Intravenous, EVERY 5 MIN PRN, Starting on Tue04/02/15 at 0822, Until Tue04/02/15 at 1028, Pain, Hold for respiratory rate less than 8 breaths per minute. (maximum dose 200 mcg), Intra-Operative (Intra-Procedure), Routine Given 04/02/2015 9:47 AM EST 25 mcg midazolam (PF) (VERSED) 1 mg/mL multi-dose injection 0.5-2 mg 0.5-2 mg, Intravenous, EVERY 5 MIN PRN, Starting on Tue04/02/15 at 0822, Until Tue04/02/15 at 1028, Sleep, Anxiety, Hold for delirium/agitation. (Maximum dose 5 mg)., Intra-Operative (Intra-Procedure), Routine Given 04/02/2015 9:51 AM EST 1 mg Given 04/02/2015 9:44 AM EST 2 mg sodium chloride 0.9% infusion 1,000 mL, at 100 mL/hr, Intravenous, CONTINUOUS, Starting on Tue04/02/15 at 0845, Until Tue04/02/15 at 1028, Day of Surgery (Day of Procedure) New Bag 04/02/2015 9:10 AM EST 1,000 mLs 100 mL/hr documented in this encounter Active and Recently Administered Medications Times are shown in EST. Continuous Medication Order 03/31/2015 04/01/2015 04/02/2015 sodium chloride 0.9% infusion (CANCELED) 1,000 mL, at 100 mL/hr, Intravenous, CONTINUOUS, Starting on Tue04/02/15 at 0845, Until Tue04/02/15 at 1028, Day of Surgery (Day of Procedure) 0910 (New Bag - Prov ider: Justin Bess RN) PRN Medication Order 03/31/2015 04/01/2015 04/02/2015 fentaNYL 50 mcg/mL multi-dose injection (CANCELED) 25-50 mcg, Intravenous, EVERY 5 MIN PRN, Starting on Tue04/02/15 at 0822, Until Tue04/02/15 at 1028, Pain, Hold for respiratory rate less than 8 breaths per minute. (maximum dose 200 mcg), Intra-Operative (Intra-Procedure), Routine 0947 (Given - Provid er: Justin Bess RN) midazolam (PF) (VERSED) 1 mg/mL multi-dose injection 0.5-2 mg (CANCELED) 0.5-2 mg, Intravenous, EVERY 5 MIN PRN, Starting on Tue04/02/15 at 0822, Until Tue04/02/15 at 1028, Sleep, Anxiety, Hold for delirium/agitation. (Maximum dose 5 mg)., Intra-Operative (Intra-Procedure), Routine 0944 (Given - Provid er: Justin Bess RN)0951 (Given - Provider: Justin Bess RN) documented in this encounter Care Teams Paddle Dyeing Machine Operator Relationship Specialty Start Date End Date Belén Griffin MD [address] [place] [address] [address] PCP - General Family Medicine 03/05/15 05/06/15 documented as of this encounter
--- OUTSIDE RECORDS SUMMARY | 2023-10-28 00:43 | XMS_ITS | Encounter Summary ---
Author Organization [facility] Address [facility] [place] [address] Care Team Providers Care Material Coordinator Name Role Phone Belén Griffin MD Primary Care Provider [phone] Reason for Visit * Reason Onset Date Comments Labs Only 03/24/2015 Lab Tracking Encounter Details Date Type Department Care Team (Late st Contact Info) Description 03/24/2015 Telephone Hematology/Oncology at [address] [address] Faustina Soto RN Labs Only [...] Telephone Encounter - Faustina Soto RN - 03/24/2015 12:46 PM EST LAB TRACKING LABS ORDERED: CBC MEDICATIONS: Neulasta 6mg on 03/12/15 DATE WBC HGB/HCT PLTS ANC MEDS/PLAN LOCATION 03/24/15 5.36 10.2/28.1 123 4.22 [facility] 03/17/15 17.34 9.6/27.2 89 8.84 [facility] Assessment: Patient states she feels good, but is tired. Plan: labs every Tuesday per Dr. Mondragon-Patient aware and agreeable to plan documented in this encounter Plan of Treatment Upcoming Encounters Date Type Department Care Team (Late st Contact Info) Description 12/07/2023 12:00 PM EDT Office Visit Dermatology at [facility] [address] [place] [address] Juan F Chappell MD [facility] DR RANDEE [place] [address] documented as of this encounter Visit Diagnoses Not on filedocumented in this encounter Care Teams Material Coordinator Relationship Specialty Start Date End Date Belén Griffin MD [address] [facility] [place] [address] PCP - General Family Medicine 03/05/15 05/06/15 documented as of this encounter
--- OUTSIDE RECORDS SUMMARY | 2023-10-28 00:43 | XMS_ITS | Encounter Summary ---
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 Examination of participant in clinical trial Procedures PET/CT STANDARD (Skull base to Mid-thigh) Kimberly Mondragon MD [facility] DR [place] [address] [place] [address] Referral ID Status Reason Start Date Expiration Date V isits Requested Visits Authorized [id number] Closed Specialty Service Requested 03/24/2015 05/23/2015 1 1 Reason for Visit * Diagnostic Test (Routine) - Closed Specialty Diagnoses / Procedures Referred By Perry cabrera Referred To Contact Radiology Diagnoses 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 Examination of participant in clinical trial Procedures PET/CT STANDARD (Skull base to Mid-thigh) Kimberly Mondragon MD [facility] [place] [address] [facility] [place] [address] Referral ID Status Reason Start Date Expiration Date V isits Requested Visits Authorized [id number] Closed Specialty Service Requested 03/24/2015 05/23/2015 1 1 Encounter Details Date Type Department Care Team (Late st Contact Info) Description 04/03/2015 9:20 AM [facility] Hospital Encounter [place] [address] Kimberly Mondragon MD [facility] [place] [address] Status post autologous bone marrow transplant; DLBCL [...] daily. 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 Thank you for referring this patient to [facility]. I have personally reviewed the image(s) and the residents interpretation and agree with the findings, Lazaro Thompson at 04/03/2015 12:16 PM Narrative 04/03/2015 12:16 PM EST EXAMINATION: PET/CT STANDARD (SKULL BASE TO MID THIGH) CLINICAL HISTORY: restage lymphoma after transplant TECHNIQUE: Procedure: Following IV injection of 97-xkewtl-1-deoxyglucose (FDG) a standard uptake of approximately 60 minutes, a noncontrast CT scan followed by a PET scan were acquired from the base of the skull to mid thighs. The noncontrast CT was used for anatomic localization and photon attenuation correction of the PET scan Blood glucose level: 90 (mg/dL) FDG dose: 11.8 mCi COMPARISON: PET CT 11/25/2014 FINDINGS: HEAD/NECK: Normal activity in all soft tissue regions of the neck and visualized lower head. ? CHEST: Normal activity in all soft tissue regions. Stable clusters of small non-FDG avid left axillary and right paratracheal lymph nodes. ABDOMEN/PELVIS: Normal activity in all soft tissue regions. Incidental note is made of a coarse calcification in the anterior aspect of the uterus (CT image 188), which was present as well on the prior exam and may represent a fibroid. SKELETON/EXTREMITIES: Normal activity in all regions of the axial and ??visualized appendicular skeleton. Incidental note made of a hemangioma in the T2 vertebral body. Procedure Note Lazaro Thompson MD - 04/03/2015 EXAMINATION: PET/CT STANDARD (SKULL BASE TO MID THIGH) CLINICAL HISTORY: restage lymphoma after transplant TECHNIQUE: Procedure: Following IV injection of 79-hptmmj-1-deoxyglucose(FDG) a standard uptake of approximately 60 minutes, a noncontrast CT scanfollowed by a PET scan were acquired from the base of the skull to mid thighs. Thenoncontrast CT was used for anatomic localization and photon attenuation correction ofthe PET scan Blood glucose level: 90 (mg/dL) FDG dose: 11.8 mCi COMPARISON: PET CT 11/25/2014 FINDINGS: HEAD/NECK: Normal activity in all soft tissue regions of the neck and visualizedlower head. CHEST: Normal activity in all soft tissue regions. Stable clusters of smallnon-FDG avid left axillary and right paratracheal lymph nodes. ABDOMEN/PELVIS: Normal activity in all soft tissue regions. Incidental note is made of acoarse calcification in the anterior aspect of the uterus (CT image 188), whichwas present as well on the prior exam and may represent a fibroid. SKELETON/EXTREMITIES: Normal activity in all regions of the axial and visualized appendicular skeleton. Incidental note made of a hemangioma in the T2 vertebral body. IMPRESSION IMPRESSION: No active lymphoma. Thank you for referring this patient to [facility]. I have personally reviewed the image(s) and the residents interpretationand agree with the findings, Lazaro Donna at 04/03/2015 12:16 PM Kimberly Mondragon MD IMG PET ORDERABL ES * POCT Glucose (04/03/2015 9:57 AM EST) Glucose, POC 90 65 - 199 mg/dL [facility] Comment: Supplemental ranges: <140 mg/dL before meals <180 mg/dL all other times of the day Blood specimen (specimen) 04/03/2015 9:57 AM EST 04/03/2015 9:57 AM EST Kimberly Mondragon MD POINT OF CARE TE ST ORDERABLES [facility] documented in this encounter Visit Diagnoses Diagnosis [...] MAR Action Action Date Dose Rate Site fludeoxyglucose (F-18) FDG injection 11.8 mCi 11.8 mCi, Intravenous, ONCE PRN, 1 dose, Starting on Cece 04/03/15 at 1000, Until Cece 04/03/15 at 1000, Per Protocol, Routine Given 04/03/2015 10:00 AM EST 11.8 mCi documented in this encounter Care Teams Change Coordinator Relationship Specialty Start Date End Date Belén Griffin MD [address] [place] [address] PCP - General Family Medicine 03/05/15 05/06/15 documented as of this encounter
--- OUTSIDE RECORDS SUMMARY | 2023-10-28 00:43 | XMS_ITS | Encounter Summary ---
Author Organization [facility] Address [facility] [place] [address] Care Team Providers Care Final Expense Agent Name Role Phone Belén Griffin MD Primary Care Provider [phone] Encounter Details Date Type Department Care Team (Late st Contact Info) Description 04/17/2015 Telephone Hematology [place] [phone] Carrie Kim, RN Social History Tobacco Use Types Packs/Day [...] encounter Miscellaneous Notes * Telephone Encounter - Carrie Orosco, LINDA - 04/17/2015 9:31 AM EST BMT Coordinator: Care Coordination -PJP prophylaxis Per Dr. Mondragon pt to receive pentamadine inhalation next 04/23 at her f/u at [facility] then locally for three months. Arranged with [facility] Respiratory department and orders faxed to along with demographics, med/allergy list, insurance information and Dr. Mckeon 04/15 office note. Confirmed receipt and [facility] will schedule pent tx with pt directly for timeline around May 21. Called Myriam to let her know and she is comfortable with the above plan. documented in this encounter Plan of Treatment Upcoming Encounters Date Type Department Care Team (Late st Contact Info) Description 12/07/2023 12:00 PM EDT Office Visit Dermatology at [facility] [address] [place] [address] Juan F Chappell MD [facility] DR RANDEE [place] [address] documented as of this encounter Visit Diagnoses Not on filedocumented in this encounter Care Teams Final Expense Agent Relationship Specialty Start Date End Date Belén Griffin MD [address] [place] [address] PCP - General Family Medicine 03/05/15 05/06/15 documented as of this encounter
--- OUTSIDE RECORDS SUMMARY | 2023-10-28 00:43 | XMS_ITS | Encounter Summary ---
Author Organization [facility] Address [facility] [place] [address] Care Team Providers Care Osteopathic Neurologist Name Role Phone Belén Griffin MD Primary Care Provider [phone] Reason for Visit * Reason Comments Follow-up Encounter Details Date Type Department Care Team (Late st Contact Info) Description 04/03/2015 1:00 PM EST Office Visit [place] [address] Kimberly Mondragon MD [facility] DR HEMATOLOGY [place] [address] Kimberly Burnett APRN [facility] [address] HEMATOLOGY [place] [address] Lymphoma, unspecified lymphoma, unspecified lymphoma region Social [...] Sign Reading Time Taken Comments Blood Pressure 104/52 04/03/2015 12:58 PM EST Pulse 109 04/03/2015 12:58 PM EST Temperature 36.8 ??C (98.2 ??F) 04/03/2015 12:[address] Respiratory Rate 18 04/03/2015 12:58 PM EST Oxygen Saturation 100% 04/03/2015 12:58 PM EST Inhaled Oxygen Concentration - - Weight 59.5 kg (131 lb 2.8 oz) 04/03/2015 12:58 PM EST Height 157.5 cm (5' 2.01) 04/03/2015 12:[address] Body Mass Index 23.99 04/03/2015 12:58 PM EST documented in this encounter Progress Notes * Kimberly Mondragon MD - 04/03/2015 1:07 PM EST Hematology/BMT Clinic [facility] [place] [address] FOLLOW-UP PATIENT EVALUATION PROBLEM LIST: 1. Diffuse [...] was not informative according to the [place] child nutrition director, but the strong BCL2 expression in the absence of MUM1 suggests a germinal center origin via the [place] child nutrition director. Lymphoma TB discussion 10/01/14 Recommendations for salvage chemotherapy and autologous stem cell transplant. C#1 [facility] 10/09/14 With stem cell collection C#2 [facility] 11/04/14 PET scan negative! 11/25/14 ! ADMIT on 12/17/14 [place] [facility] [place] Autologous Peripheral BlN/ood Stem Cell Transplant [...] female with Primary Refractory DLBCL. She is almost 3 months s/p an Autologous peripheral blood stem cell transplant. Just when she was returning to work, she had an acute drop in her ANC. Her acyclovir and Bactrim were held. I ended up giving her a dose of Neulasta and she had an excellent Response. She denies any other new medications. No viral symptoms. However, about 3 weeks after the Neulasta shot the white count dropped again. The drop is isolated to the myeloid lines. It is most consistent with drug effect. Myriam feels relatively well. She continues to deny any infectious symptoms. She is taking minimal medications and we reviewed all of these. She is on no homeopathic or naturopathic medications. She'shad no fevers or infections. MEDICATIONS: Current Outpatient Prescriptions on File Prior to Visit Medication Sig Dispense Refill ??? LORazepam (ATIVAN) 0.5 mg Tablet Take 1 tablet by mouth every 6 hours as needed for Anxiety. 30tablet 1 ??? escitalopram oxalate (LEXAPRO) 10 mg Tablet Take 1 tablet by mouth daily. 30 tablet 12 ??? diphenhydrAMINE/aluminum-magnesium hydroxide/lidocaine (BMX) 1:1:1 Oral Suspension Take 5 mLs by mouth 4 times daily as needed. Apply to mouth ulcers as needed. 100 mL 3 ??? hydrocortisone 1 % Cream Apply topically 4 times daily. Preparation-H. To hemorrhoids for discomfort 30 g 0 ??? ondansetron (ZOFRAN) 8 mg Tablet Take [...] Tablet Take 1 tablet by mouth daily. Current Facility-Administered Medications on File Prior to Visit Medication Dose Route Frequency Provider Last Rate Last Dose ??? [COMPLETED] fludeoxyglucose (F-18) FDG injection 11.8 mCi 11.8 mCi Intravenous Once PRN Lazaro Thompson MD 11.8 mCi at 04/03/15 1000 ??? [DISCONTINUED] sodium chloride 0.9 % flush 10 mL 10 mL Intravenous Q1 Min PRKimberly Cai MD 20 mL at 04/02/15 1125 ALLERGIES: Allergies Allergen Reactions ??? Levofloxacin Other (See Comments) tendonitis ??? Tegaderm [Transparent Dressings] Other (See Comments) Unsure if actual allergy, please try [id number] Skin tears/rawness ??? Vancomycin Itching and Dermatitis Sarah's syndrome. Slow infusion for any upcoming doses. Broke out in maculopapular pruritic dermatitis on abdomen, chest, forehead and upper back. INTERIM SOCIAL HISTORY: Changes in job, home situation, tobacco or alcohol use: She has returned to work CHANGES IN RELEVANT FAMILY HISTORY: HEMATOLOGIC REVIEW [...] Other: Depression with anxiety PHYSICAL EXAM: BP 104/52 mmHg Pulse 109 Temp(Src) 36.8 ??C (98.2 ??F) (Temporal) Resp 18 Ht 157.5 cm (5' 2.01) Wt 59.5 kg (131 lb 2.8 oz) BMI 23.99 kg/m2 SpO2 100% GENERAL: Myriam Vivas is in no acute distress. Accompanied by her significant other. HEENT: Oral mucosa is clear. Neck: Supple Lungs: Clear breath sounds bilaterally Heart: Regular rate and rhythm without murmur Abdomen: Soft, nontender and no organomegaly Skin: No rash Extremity: shows no edema Muskuloskeletal: Walks slowly and deliberately. Neuro: A+O x 3 Psychiatric: Normal LABORATORY STUDIES: date wbc anc hgb plt 12/4/15 5.2 3.13 7.9 218 01/29/15 4.5 2.3 8.8 187 03/05/15 2.0 0.98 9.5 149 03/12/15 0.89 0.02 9.8 135 Stop ACV, Bactrim and give neulasta 03/17/15 17.3 8.8 9.6 89 04/03/15 0.8 0.0 8.6 132 BMBx Results for MYRIAM VIVAS ( ) as of 04/03/2015 13:08 Ref. Range 04/02/2015 11:25 WBC Latest Ref Range: 4.0-10.0 x10(3)/mcL 0.8 (CRIT) RBC Latest Ref Range: 3.93-5.22 x10(6)/mcL 2.58 (L) Hemoglobin Latest Ref Range: 11.2-15.7 gm/dL 8.6 (L) Hematocrit Latest Ref Range: 34.0-45.0 % 24.2 (L) MCV Latest Ref Range: 79.0-94.0 fL 93.8 MCH Latest Ref Range: 26.6-32.2 pg 33.3 (H) MCHC Latest Ref Range: 32.0-36.5 gm/dL 35.5 RDWSD Latest Ref Range: 35.0-46.0 fL 43.3 RDWCV Latest Ref Range: 10.9-14.4 % 12.8 Platelets Latest Ref Range: 145-370 x10(3)/mcL 132 (L) MPV Latest Ref Range: 9.0-12.0 fL 9.3 Sodium Latest Ref Range: 135-145 mmol/L 144 Potassium Latest Ref Range: 3.5-5.0 mmol/L 3.4 (L) Chloride Latest Ref Range: 98-107 mmol/L 105 CO2 Latest Ref Range: 22-31 mmol/L 26 Anion Gap Latest Ref Range: 5-15 mmol/L 13 BUN Latest Ref Range: 8-18 mg/dL 18 Creatinine Latest Ref Range: 0.70-1.20 mg/dL 1.07 Estimated GFR Latest Ref Range: >=60 52 (L) Glucose Lvl Latest Ref Range: 65-199 mg/dL 126 Calcium Latest Ref Range: 8.5-10.5 mg/dL 9.4 Total Protein Latest Ref Range: 6.1-8.0 gm/dL 6.5 Albumin Latest Ref Range: 3.2-5.2 gm/dL 4.4 Total Bilirubin Latest Ref Range: 0.2-1.3 mg/dL 0.9 Bili, Direct Latest Ref Range: 0.0-0.3 mg/dL 0.2 Alk Phos Latest Ref Range: 40-104 unit/L 74 AST Latest Ref Range: 0-30 unit/L 17 ALT Latest Ref Range: 0-30 unit/L 18 LDH Latest Ref Range: 110-220 unit/L 155 PARVO B19 RESULT Unknown Rpt ABORh Type Unknown B Pos AB Screen Interp Unknown Negative Expires at 2359 on: Unknown 04/05/2015 Her electrolytes and LFT 's have been normal. RADIOLOGY STUDIES: Study Result ? EXAMINATION: PET/CT STANDARD (SKULL BASE TO MID THIGH) ?? CLINICAL HISTORY: restage lymphoma after transplant ?? TECHNIQUE: Procedure: Following IV injection of 06-amidzz-0-deoxyglucose (FDG) a standard uptake of approximately 60 minutes, a noncontrast CT scan followed by a PET scan were acquired from the base of the skull to mid thighs. The noncontrast CT was used for anatomic localization and photon attenuation correction of the PET scan ?? Blood glucose level: 90 (mg/dL) ?? FDG dose: 11.8 mCi ?? COMPARISON: PET CT 11/25/2014 ?? FINDINGS: ? HEAD/NECK: Normal activity in all soft tissue regions of the neck and visualized lower head.? CHEST: Normal activity in all soft tissue regions. Stable clusters of small non-FDG avid left axillary and right paratracheal lymph nodes. ?? ABDOMEN/PELVIS: ?? Normal activity in all soft tissue regions. Incidental note is made of a coarse calcification in the anterior aspect of the uterus (CT image 188), which was present as well on the prior exam and may represent a fibroid. ? SKELETON/EXTREMITIES: Normal activity in all regions of the axial and?? visualized appendicular skeleton. Incidental note made of a hemangioma in the T2 vertebral body. ?? IMPRESSION IMPRESSION: No active lymphoma. ASSESSMENT: Myriam Vivas is a 64 y.o. female with Primary Refractory DLBCL. She recently underwent an Autologous pb stem cell transplant. 1. 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 Her counts have dropped Last week. Her ANC fell below 1000. I gave her a shot of Neulasta and she responded immediately. She returns today for discussion of why the ANC may have dropped and further plans. Presently her Bactrim and acyclovir on hold. Etiology of acute WBC/ANC drop is unclear. She denies any infections or viral syndromes/symptoms. We are pleased to tell her that today her lymphoma is in remission with a negative PET scan. ?? Aphthous ulcers - started since WBC/ANC dropped. Have improved since last time I saw her. Off ACV so could be viral or could be from neutropenia. Rinsing w/ saline and baking soda. Juan M's biotene as well. BMX prn. ?? ID - No focal s/s of infection. No infectious complications while hospitalized. - We have held both bactrim and ACV for about 3 + weeks now. I was going to start pentamidine for PJP prophylaxis But given the neutropenia nad the fact that pentamidine has been associated with neuropenia in up to 10% ; It seems wiser to hold it at this time. ?? FEN/Renal - Improved appetite- disappointed that she needs to ?? Psychosocial - Depression and Anxiety has been an issue throughout her treatment. She is slowly weaning her Ativan. Unfortunately, just has this problem was really improving, we need to stop her antidepressant. It is one drug that has been associated with neutropenia and leukopenia. We've asked her to wean it to every other day for a week and then off. - Reviewed the importance of daily activity, starting out with very small increments, ie. Will increase work as tolerated. ?? Vaccines - to start post- transplant vaccinations 6 months post transplant - due June 2015. Will not administer these until WBC/ANC has recovered. She also needs flu shot annually. No shingles or MMR until 3 years post transplant or more due to live vaccine status. ?? Disposition - Great support from friends and Carlos. She has tightness in mm which might be due to lack of use or possibly also due to syd quinolones. I've referred her to physical therapy. She has returned to work part-time. 2-3 hours per day. ?? Neutropenia - Myriam had a bone marrow biopsy done yesterday. I spoke to Dr. Hernandez who is signing out. 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 It's possible that she sees some very early forms, but she is waiting for more stains. This would be most consistent with drug effect or viral infection. Myriam has had no signs or symptoms of virus in the last 2 months. Today we decided to stop every medication we could. She will remain on Ativan when necessary for her anxiety. Benadryl and Tylenol for sleep. We will stop all antibiotics. We will wean her off of her antidepressant. Once the count has rec overed, we will add in drugs wanted a time. She knows to call for signs or symptoms of infection. We reviewed neutropenic precautions. A second dose of Neulasta will be given today, now that the bonemarrow biopsy is complete. We will check labs again on Tuesday ?? IMMEDIATE PLANS: - Continue to hold bactrim and acyclovir. Will also hold pentamidine, lexapro. lexapro qod X 4 doses then off. Avoid other symptomatic meds as much as you can. We thought she could take tylenol and benadryl and ativan. - Referral to PT - will start when WBC recovers. - CBC only every Tuesday - [facility] triage nurses to follow. - neutropenic precautions reviewed. Neutropenic diet. No dentist or colo. - appt at [facility] next time I am there. I discussed all of the above with the patient and all of her questions were answered. Support and counseling given as appropriate. This note was written or modified using [employer] voice recognition software. The final note was screened for mistakes. Please excuse any remaining errors. Fax note to Dr Sacha Hancock [phone] per patient request. CC: Izzy Hinds MD documented in this encounter Plan of Treatment Upcoming Encounters Date Type Department Care Team (Late st Contact Info) Description 12/07/2023 12:00 PM EDT Office Visit Dermatology at [facility] [address] [place] [address] Juan F Chappell MD [facility] DR RANDEE [place] [address] documented as of this encounter Visit Diagnoses Diagnosis Lymphoma, unspecified lymphoma, unspecified lymphoma region documented in this encounter Care Teams Osteopathic Neurologist Relationship Specialty Start Date End Date Belén Griffin MD [address] [place] [address] PCP - General Family Medicine 03/05/15 05/06/15 documented as of this encounter
--- OUTSIDE RECORDS SUMMARY | 2023-10-28 00:43 | XMS_ITS | Encounter Summary ---
Author Organization [facility] Address [facility] [place] [address] Care Team Providers Care Clothing Worker Name Role Phone Belén Griffin MD Primary Care Provider [phone] Encounter Details Date Type Department Care Team (Late st Contact Info) Description 03/31/2015 Orders Only [place]ematology [place] [address] Kimberly Mondragon MD [facility] [place] [address] Lymphoma, unspecified lymphoma, unspecified lymphoma region Social [...] at [facility] [address] [place] [address] Juan F Chappell MD [facility] [address] [place] [address] documented as of this encounter Results * CMV PCR, Quantitative (04/02/2015 11:25 AM EST) CMV Quant (Numeric) <137 IU/mL [facility] CMV Quant (Interp) Result: Not Detected Sample: plasma Method: This quantitative real-time PCR assay was performed in the [facility] Molecular Pathology Laboratory using ??NEPTALI?? AmpliPrep/NEPTALI? ? TaqMan?? CMV Test ([employer] Linear Range: 137 IU/mL - 9,100,000 IU/mL (2.14 log ? 6.96 log IU/mL) Limit of Detection: 91 IU/mL (1.96 log IU/mL) [facility] Blood specimen (specimen) 04/02/2015 11:25 AM EST 04/04/2015 12:54 PM EST Narrative Resulting Agency Comment Spec In Lab Kimberly Mondragon MD MOLECULAR ORDERA LEANNA Performing Organization Address City/[facility]/ZIP Co de Phone Number [facility] * EBV PCR Quantitative (04/02/2015 11:25 AM EST) EBV PCR,Quantitative NONE DETECTED. ?Lower limit of detection is 500 copies/mL. [facility] Comment: Test performed by [facility] [email or web address], [place], [place]. Analyte Specific Reagent: This test was developed and its performance characteristics determined by [facility]. It has not been cleared or approved by the U.S. Food and Drug Administration. Blood specimen (specimen) 04/02/2015 11:25 AM EST 04/02/2015 12:11 PM EST Narrative Resulting Agency Comment Spec In Lab Kimberly Mondragon MD LAB SEND OUT ORD ERABLES Performing Organization Address City/[facility]/ZIP Co de Phone Number [facility] documented in this encounter Visit Diagnoses Diagnosis Lymphoma, unspecified lymphoma, unspecified lymphoma region documented in this encounter Care Teams Clothing Worker Relationship Specialty Start Date End Date Belén Griffin MD [address] [place], [place] [address] [place] [address] PCP - General Family Medicine 03/05/15 05/06/15 documented as of this encounter
--- OUTSIDE RECORDS SUMMARY | 2023-10-28 00:43 | XMS_ITS | Encounter Summary ---
Author Organization [facility] Address [facility] [place] [address] Care Team Providers Care Software Sales Consultant Name Role Phone Belén Griffin MD Primary Care Provider [phone] Reason for Visit * Reason Onset Date Comments Labs Only 03/17/2015 Lab Tracking Encounter Details Date Type Department Care Team (Late st Contact Info) Description 03/17/2015 Telephone Hematology Oncology at [address] [address] Faustina Soto RN Labs Only [...] Telephone Encounter - Faustina Soto RN - 03/17/2015 1:07 PM EST LAB TRACKING LABS ORDERED: CBC MEDICATIONS: Neulasta 6mg on 03/12/15 DATE WBC HGB/HCT PLTS ANC MEDS/PLAN LOCATION 03/17/15 17.34 9.6/27.2 89 8.84 [facility] Assessment: Plan: No further labs, see Dr. Mondragon on Tuesday documented in this encounter Plan of Treatment Upcoming Encounters Date Type Department Care Team (Late st Contact Info) Description 12/07/2023 12:00 PM EDT Office Visit Dermatology at [facility] [address] [place] [address] Juan F Chappell MD [facility] DR RANDE[address] [place] [address] documented as of this encounter Visit Diagnoses Not on filedocumented in this encounter Care Teams Software Sales Consultant Relationship Specialty Start Date End Date Belén Griffin MD [address] [place] [address] PCP - General Family Medicine 03/05/15 05/06/15 documented as of this encounter
--- OUTSIDE RECORDS SUMMARY | 2023-10-28 00:43 | XMS_ITS | Encounter Summary ---
Author Organization [facility] Address [facility] [place] [address] Care Team Providers Care Pasteurizing Machine Operator Name Role Phone Belén Griffin MD Primary Care Provider [phone] Encounter Details Date Type Department Care Team (Late st Contact Info) Description 04/18/2015 Orders Only Hematology [place] [address] Kimberly Mondragon MD [facility] [address] [place] [address] Other drug-induced neutropenia; Acute URI Social History Tobacco Use Types Packs/Day Years [...] [facility] [address] [place] [address] Juan F Chappell MD [facility] DR [address] [address] documented as of this encounter Visit Diagnoses Diagnosis Other drug-induced neutropenia Acute URI Acute upper respiratory infections of unspecified site documented in this encounter Care Teams Pasteurizing Machine Operator Relationship Specialty Start Date End Date Belén Griffin MD [address] [place] [address] PCP - General Family Medicine 03/05/15 05/06/15 documented as of this encounter
--- OUTSIDE RECORDS SUMMARY | 2023-10-28 00:43 | XMS_ITS | Encounter Summary ---
Author Organization [facility] Address [facility] [place] [address] Care Team Providers Care Facility Engineer Name Role Phone Belén Griffin MD Primary Care Provider Reason for Visit * Reason Comments Follow-up Encounter Details Date Type Department Care Team (Late st Contact Info) Description 04/24/2015 1:30 PM EST Office Visit [place]ematology [place] [id number] Kimberly Mondragon MD [facility] [address] [place] [address] Kimberly Burnett APRN [facility] [address] [place] [address] DLBCL (diffuse large B cell lymphoma) Social [...] Sign Reading Time Taken Comments Blood Pressure 107/68 04/24/2015 1:24 PM EST Pulse 114 04/24/2015 1:24 PM EST Temperature 36.7 ??C (98.1 ??F) 04/24/2015 1:24 PM ES T Respiratory Rate 18 04/24/2015 1:24 PM EST Oxygen Saturation 99% 04/24/2015 1:24 PM EST Inhaled Oxygen Concentration - - Weight 56 kg (123 lb 7.3 oz) 04/24/2015 1:24 PM EST Height 157.5 cm (5' 2.01) 04/24/2015 1:24 PM ES T Body Mass Index 22.57 04/24/2015 1:24 PM EST documented in this encounter Progress Notes * Kimberly Burnett, WINDOWS [employer] ADMINISTRATOR - 04/24/2015 12:12 PM EST Hematology/BMT Clinic [place] [address] FOLLOW-UP PATIENT EVALUATION PROBLEM LIST: 1. Diffuse [...] was not informative according to the [employer] merchandiser retail representative, but the strong BCL2 expression in the absence of MUM1 suggests a germinal center origin via the [employer] merchandiser retail representative. Lymphoma TB discussion 10/01/14 Recommendations for salvage chemotherapy and autologous stem cell transplant. C#1 [facility] 10/09/14 With stem cell collection C#2 [facility] 11/04/14 PET scan negative! 11/25/14 ! ADMIT on 12/17/14 to [facility] for Autologous Peripheral BlN/ood Stem Cell Transplant [...] cell transplant. When she was seen in [facility] last week with respiratory symptoms, she [...] stopped while trying to sort out herneutropenia. Luis Fernando would also like to resume Lexapro. Working 2-3 hours 5days/week but exhuasted once she gets home. No HAs, lightheadedness/dizziness. Breathing is stable. No bleeding. MEDICATIONS: Current Outpatient Prescriptions on File Prior to Visit Medication Sig Dispense Refill ??? amoxicillin-clavulanate (AUGMENTIN) 875-125 mg Tablet Take 1 tablet by mouth 2 times daily. 20 tablet 0 ??? calcium carbonate (TUMS) 200 mg calcium (500 mg) Tablet, Chewable Take 1 tablet by mouth as needed for Heartburn. ??? diphenhydrAMINE-acetaminophen (TYLENOL PM) 25-500 mg Tablet Take by mouth every evening. ??? diphenhydrAMINE/aluminum-magnesium hydroxide/lidocaine (BMX) 1:1:1 Oral Suspension Take 5 mLs by mouth 4 times daily as needed. Apply to mouth ulcers as needed. 100 mL 3 ??? LORazepam (ATIVAN) 0.5 mg Tablet Take 1 tablet by mouth every 6 hours as needed for Anxiety. 30tablet 1 ??? hydrocortisone 1 % Cream Apply [...] Comments) Unsure if actual allergy, please try [id number] Skin tears/rawness ??? Vancomycin Itching and Dermatitis Sarah's syndrome. Slow infusion for any upcoming doses. Broke out in maculopapular pruritic dermatitis on abdomen, chest, forehead and upper back. INTERIM SOCIAL HISTORY: Changes in job, home situation, tobacco or alcohol use: She has returned to work CHANGES IN RELEVANT FAMILY HISTORY: HEMATOLOGIC REVIEW OF SYSTEMS: CONSTITUTIONAL SYMPTOMS: Fevers/chills/drenching sweats: No Recent infections: Yes- URI Unexpected weight loss of > 10% baseline body weight: 8 lb weight loss in the past 3 weeks. Change in adenopathy or other masses: No GENERAL REVIEW OF SYSTEMS: Headache/lightheadedness/syncope: No Sinus pain/pressure: See above Oral sores/lesions: No Sore throat/dysphagia: See above Cough/SOB/chest pain: No Appetite: Poor while on Augmentin Nausea/vomiting/dyspepsia: No Diarrhea/constipation: Yes- diarrhea while on Augmentin Urinary pain, burning, incontinence: No Skin rashes or petechiae: No Peripheral edema: None Bruising/bleeding/melena: No Pain: No Other: Depression with anxiety PHYSICAL EXAM: Vitals Office Visit from 04/24/2015 in [facility] Hem Onc Weight - Scale 56 kg (123 lb 7.3 oz) Height 157.5 cm (5' 2.01) BSA (Calculated - sq m) 1.57 sq meters BMI (Calculated) 22.6 Temp 36.7 ??C (98.1 ??F) Temp Source Temporal Heart Rate 114 Heart Rate Source Left Resp 18 BP 107/68 mmHg BP Location Right arm Patient Position Sitting SpO2 99 % Karnofsky Score 80 GENERAL: Luis Fernando Vivas is in mild distress. Teary. Accompanied [...] 9.7 175 04/14/15 2.8 4.9 9.7 129 Lab Results Component Value Date WBC 4.0 04/24/2015 WBC 0.8* 04/02/2015 RBC 2.78* 04/24/2015 RBC 2.58* 04/02/2015 HGB 9.3* 04/24/2015 HGB 8.6* 04/02/2015 HCT 26.2* 04/24/2015 HCT 24.2* 04/02/2015 MCV 94.2* 04/24/2015 MCV 93.8 04/02/2015 MCH 33.5* 04/24/2015 MCH 33.3* 04/02/2015 MCHC 35.5 04/24/2015 MCHC 35.5 04/02/2015 PLATELET 162 04/24/2015 PLATELET 132* 04/02/2015 RDWCV 13.6 04/24/2015 RDWCV 12.8 04/02/2015 NA 143 04/24/2015 NA 144 04/02/2015 K 3.5 04/24/2015 K 3.4* 04/02/2015 CL 104 04/24/2015 CL 105 04/02/2015 CO2 23 04/24/2015 CO2 26 04/02/2015 BUN 26* 04/24/2015 BUN 18 04/02/2015 CREATININE 1.19 04/24/2015 CREATININE 1.07 04/02/2015 GLUCOSE 92 04/24/2015 GLUCOSE 126 04/02/2015 CALCIUM 10.1 04/24/2015 CALCIUM 9.4 04/02/2015 LDH 147 04/24/2015 LDH 155 04/02/2015 Results for LUIS FERNANDO VIVAS ( ) as of 04/30/2015 16:04 Ref. Range 04/24/2015 12:20 Neutr Abs (ANC) Latest Ref Range: 1.50-6.30 x10(3)/mcL 2.57 RADIOLOGY STUDIES: ASSESSMENT: Luis Fernando Vivas is a delightful 64 y.o. female with Primary Refractory DLBCL. She is 4 months s/p an Autologous pb stem cell transplant. ?? 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 ?? Neutropenia - ?? Etiology of acute WBC/ANC drop remains unclear. It has been 3 weeks since her 2nd Neulasta injection and her wbc/ANC remain normal. ?? She is back on her acyclovir 800mg bid and we have changed her pjp prophylaxis to monthly inhaled Pentamidine. She is scheduled for a treatment today and will need two more monthly treatments locally. ?? Given her increased anxiety and depression, I too agree that it is in Luis Fernando's best interest to restart her Lexapro. ?? ID - Recovering from a recent URI. The Augmentin that she is completing has caused significant diarrhea and loss of appetite. She has already completed 9 of the 10 day course, therefore, I have stopped this medication. - Pentamidine inhalation therapy for PJP prophylaxis today and monthly x 2 more treatments. - Continue Acyclovir 800mg bid x 1 year post transplant. ?? Psychosocial - Depression and Anxiety has been an issue throughout her treatment, and is worse at the current time, especially since we weaned her off of her Lexapro. We will restart the Lexapro at this time while she continues with Ativan prn. ?? Vaccines - Dose #1 Prevnar 13 today. We will have Luis Fernando return in 3 months for dose #2 Prevnar 13 (given at 3, 6, 9 months post transplant) and start her initial series of vaccinations. ?? Disposition - Great support from friends and Carlos. She has returned to work part-time. 2-3 hours per day. IMMEDIATE PLANS: - CBC only every Tuesday - [facility] triage nurses to follow. Will give Neulasta for ANC falls near or below 500 again. - STOP Augmentin - RESTART Lexapro 10mg daily - Continue ativan 0.25mg tid prn - Pentamidine inhalation therapy today. She will need two more monthly treatments which have been arranged at [facility]. - Continue Acyclovir 800mg bid and continue for one year post transplant. - Appt with Dr. Mondragon already scheduled at [facility] - RTC in 3 months to [facility] for labs, prevnar #2. And to begin initial series of post-transplant vaccinations. Kimberly Burnett, MSN, WINDOWS [employer] ADMINISTRATOR Nurse Practitioner Section of Hematology/Oncology [facility] Office phone: CC: Belén Griffin MD documented in this encounter Plan of Treatment Upcoming Encounters Date Type Department Care Team (Late st Contact Info) Description 12/07/2023 12:00 PM EDT Office Visit Dermatology at [facility] [address] [place] [address] Juan F Chappell MD [facility] DR [place] [address] documented as of this encounter Visit Diagnoses Diagnosis DLBCL (diffuse large B cell lymphoma) Other malignant lymphomas, unspecified site, extranodal and solid organ sites documented in this encounter Care Teams Facility Engineer Relationship Specialty Start Date End Date Belén Griffin MD [address] [place] [address] PCP - General Family Medicine 03/05/15 05/06/15 documented as of this encounter
--- OUTSIDE RECORDS SUMMARY | 2023-10-28 00:43 | XMS_ITS | Encounter Summary ---
Author Organization [facility] [place] [address] Care Team Providers Care Billing Collections Specialist Name Role Phone Maine Dunn Primary Care Provider [phone] Encounter Details Date Type Department Care Team (Latest Contact Info) Description 01/23/2015 9:37 AM EST - 01/23/2015 11:59 PM EST Hospital Encounter Hematology [place] [id number] Lymphoma (Primary Dx); Hypokalemia; Status post autologous bone marrow transplant Discharge [...] Sig Dispensed Refills Start Date End Date sulfamethoxazole-trime thoprim (BACTRIM DS) 800-160 mg Tablet Take 1 tablet by mouth 2 times daily. Take 1 pill 2 times daily on Saturdays and Sundays. 20 tablet 5 01/24/2015 03/19/2015 LORazepam (ATIVAN) 0.5 mg TabletIndications:Lymp fawn,DLBCL (diffuse large B cell lymphoma),Stem cell donor,Examination of participant in clinical trial Take 1 tablet by mouth every 6 hours as needed for Anxiety. 60 tablet 1 01/23/2015 03/05/2015 hydrocortisone 1 % Cream Apply topically 4 times daily. Preparation-H. To hemorrhoids for discomfort 30 g 0 01/03/2015 10/02/2015 escitalopram oxalate (LEXAPRO) 10 mg Tablet Take 1 tablet by mouth daily. 30 tablet 12 01/03/2015 12/25/2015 acyclovir (ZOVIRAX) 400 mg Tablet Take 2 tablets by mouth 2 times daily. 60 tablet 3 01/03/2015 03/05/2015 magnesium oxide (MAG-OX) 400 mg Tablet Take 1 tablet by mouth daily. 60 tablet 12 11/06/2014 01/29/2015 ondansetron (ZOFRAN) 8 mg TabletIndications:Lymp fawn,DLBCL (diffuse [...] Take 1 tablet by mouth daily. 12/25/2015 [place]-3 Fatty Acids-Vitamin E (FISH OIL) 1,000 mg CapsuleIndications:Lym phoma Take by mouth. 01/29/2015 Calcium 500 mg TabletIndications:Lymp fawn Take by mouth. 01/29/2015 Cholecalciferol, Vitamin D3, (VITAMIN D-3) 2,000 unit CapsuleIndications:Lym phoma Take 1,000 Units by mouth. 01/29/2015 documented as of this encounter Progress Notes * Vonda Stanley RN - 01/23/2015 10:08 AM EST Patient Name: Myriam Vivas Patient Age: 64 y.o. Birthdate: 1950 Admit date: 01/23/2015 Attending Physician: No att. providers found Access visit. See MAR and/or flowsheet. documented in this encounter Miscellaneous Notes * Addendum Note - Kendy Bach RN - 01/23/2015 12:14 PM ESTEncounter addended by: Kendy Bach, RN on: 01/23/2015 12:14 PM
Documentation filed: Inpatient Document Flowsheet, Inpatient MAR documented in this encounter Plan of Treatment Upcoming Encounters Date Type Department Care Team (Late st Contact Info) Description 12/07/2023 12:00 PM EDT Office Visit Dermatology at [facility] [address] [place] [address] Juan F Chappell MD [facility] DR RANDEE [place] [address] documented as of this encounter Procedures Procedure Name Priority Date/Time Associated Diagnosis Comments HEMOGRAM STAT 01/23/2015 10:21 AM EST Lymphoma DIFFERENTIAL, AUTOMATED STAT 01/23/2015 10:21 AM EST Lymphoma CBC (WITH DIFF) STAT 01/23/2015 10:21 AM EST Lymphoma MAGNESIUM STAT 01/23/2015 10:21 AM EST Lymphoma Status post autologous bone marrow transplant LACTATE DEHYDROGENASE STAT 01/23/2015 10:21 AM EST Lymphoma COMPREHENSIVE METABOLIC PANEL STAT 01/23/2015 10:21 AM EST Lymphoma ABO/RH TYPING Routine 01/23/2015 10:10 AM EST Lymphoma ANTIBODY SCREEN Routine 01/23/2015 10:10 AM EST Lymphoma TYPE AND SCREEN ([facility]/MARTHA) Routine 01/23/2015 10:10 AM EST Lymphoma documented in this encounter Results * (ABNORMAL) Differential, Automated (01/23/2015 10:21 AM EST) Neutrophil % 48.8 % CERNER MILLENNIUM Neutrophil Absolute 2.02 1.50 - 6.30 x10(3)/mc L CERNER MILLENNIUM Lymph % 21.3 % CERNER MILLENNIUM Lymphocytes Abs 0.9(L) 1.0 - 3.6 x10(3)/mc L CERNER MILLENNIUM Monocyte % 15.0 % CERNER MILLENNIUM Monocyte Abs 0.6 0.2 - 1.0 x10(3)/mc L CERNER MILLENNIUM Eos % 13.3 % CERNER MILLENNIUM Eosinophils Abs 0.6(H) 0.0 - 0.5 x10(3)/mc L CERNER MILLENNIUM Basophil % 1.4 % CERNER MILLENNIUM Baso Absolute 0.1 0.0 - 0.2 x10(3)/mc L CERNER MILLENNIUM Immature Gran % 0.20 % CERN ER MILLENNIUM Comment: Immature granulocytes(IG's)percentage and absolute count will include metamyelocytes, myelocytes, and promyelocytes. Blood smears from CBCs yielding IG's will be scanned manually for concordance. If this scan disagrees with the automated IG or if promyelocytes are noted, a manual differential will be performed. Immature Gran Absolute 0.01 0.00 - 0.05 x10(3)/mc L CERNER MILLENNIUM Blood specimen (specimen) 01/23/2015 10:21 AM EST 01/23/2015 10:21 AM EST Narrative Resulting Agency Comment Spec In Lab Kimberly Mondragon MD HEMATOLOGY ORDER AYO GIBRAN BUCHANANENNIUM * (ABNORMAL) Hemogram (01/23/2015 10:21 AM EST) White Blood Cell 4.1 4.0 - 10.0 x10(3)/mc L CERNER MILLENNIUM Red Blood Cell 2.69(L) 3.93 - 5.22 x10(6)/mc L CERNER MILLENNIUM Hemoglobin 8.6(L) 11.2 - 15.7 gm/dL CERNER MILLENNIUM Hematocrit 25.2(L) 34.0 - 45.0 % CERNER MILLENNIUM Mean Cell Volume 93.7 79.0 - 94.0 fL CERNER MILLENNIUM Mean Cell Hemoglobin 32.0 26.6 - 32.2 pg CERNER MILLENNIUM Mean Cell Hemoglobin Concentration 34.1 32.0 - 36.5 gm/dL CERNER MILLENNIUM Platelet 183 145 - 370 x10(3)/mc L CERNER MILLENNIUM RDW Standard Deviation 62.5(H) 35.0 - 46.0 fL CERNER MILLENNIUM RDW coefficient of variation 18.3(H) 10.9 - 14.4 % CERNER MILLENNIUM Mean Platelet Volume 8.8(L) 9.0 - 12.0 fL CERNER MILLENNIUM Blood specimen (specimen) 01/23/2015 10:21 AM EST 01/23/2015 10:21 AM EST Narrative Resulting Agency Comment Spec In Lab Kimberly Mondragon MD HEMATOLOGY ORDER AYO Performing Organization Address City/[facility] de Phone Number CERDANIA BUCHANANENNIUM * (ABNORMAL) Magnesium (01/23/2015 10:21 AM EST) Magnesium 0.68(L) 0.69 - 1.07 mmol/L CERNER MILLENNIUM Blood specimen (specimen) 01/23/2015 10:21 AM EST 01/23/2015 10:21 AM EST Narrative Resulting Agency Comment Spec In Lab Kimberly Mondragon MD CHEMISTRY ORDERA BLES Performing Organization Address City/[facility] Co de Phone Number CERDANIA BUCHANANENNIUM * (ABNORMAL) Lactate Dehydrogenase (01/23/2015 10:21 AM EST) Lactate Dehydrogenase 223(H) 110 - 220 unit/L CERNER MILLENNIUM Blood specimen (specimen) 01/23/2015 10:21 AM EST 01/23/2015 10:21 AM EST Narrative Resulting Agency Comment Spec In Lab Kimberly Mondragon MD CHEMISTRY ORDERA BLES CERNER MILLENNIUM * (ABNORMAL) Comprehensive metabolic panel (non-fasting) (01/23/2015 10:21 AM EST) [facility] Glucose 83 65 - 199 mg/dL CERNER MILLENNIUM Comment:Diabetes: >=200 mg/d L plus symptoms Blood Urea Nitrogen 19(H) 8 - 18 mg/dL CERNER MILLENNIUM Creatinine 0.84 0.70 - 1.20 mg/dL CERNER MILLENNIUM Comment: Please note that the pediatric reference intervals supplied above were not validated at [facility]. Results from pediatric patients should be interpreted in conjunction to the patient's age, height and muscle mass. Sodium 145 135 - 145 mmol/L CERNER MILLENNIUM Potassium 3.9 3.5 - 5.0 mmol/L CERNER MILLENNIUM Comment: Please note: ??Patients with WBC >100,000 may have falsely elevated Potassium levels. ??For accurate Potassium quantification in these patients send serum separator tube (gold top) for subsequent determinations. ??Contact the Clinical Chemistry Laboratory if there are any questions. Chloride 103 98 - 107 mmol/L CERNER MILLENNIUM Carbon Dioxide 27 22 - 31 mmol/L CERNER MILLENNIUM Anion Gap 15 5 - 15 mmol/L CERNER MILLENNIUM Calcium 10.1 8.5 - 10.5 mg/dL CERNER MILLENNIUM Protein, Total 6.8 6.1 - 8.0 gm/dL CERNER MILLENNIUM Albumin 4.3 3.2 - 5.2 gm/dL CERNER MILLENNIUM Aspartate Aminotransferase 30 0 - 30 unit/L CERNER MILLENNIUM Alanine Aminotransferase 26 0 - 30 unit/L CERNER MILLENNIUM Alkaline Phosphatase 71 40 - 104 unit/L CERNER MILLENNIUM Bilirubin, Total 0.5 0.2 - 1.3 mg/dL CERNER MILLENNIUM Bilirubin, Direct 0.1 0.0 - 0.3 mg/dL CERNER MILLENNIUM Est Glomerular Filtration Rate >60 >=60 CERNER MILLENNIUM Comment: This estimated GFR (eGFR) value was [...] the following links into your internet browser. [email or web address] Blood specimen (specimen) 01/23/2015 10:21 AM EST 01/23/2015 10:21 AM EST Narrative Resulting Agency Comment Spec In Lab Kimberly Mondragon MD CHEMISTRY ORDERA BLES Performing Organization Address [facility] Co de Phone Number [facility] * Antibody screen (01/23/2015 10:10 AM EST) Ab Screen Interp Negative [facility] Expires at [id number] on: 01/26/2015 [facility] Blood specimen (specimen) 01/23/2015 10:10 AM EST 01/23/2015 10:32 AM EST Narrative Resulting Agency Comment Spec In Lab Kimberly Mondragon MD BLOOD BANK LAB O RDERABLES Performing Organization Address [facility] de Phone Number [facility] * ABO/Rh Typing (01/23/2015 10:10 AM EST) ABORH Type B Pos [facility] Blood specimen (specimen) 01/23/2015 10:10 AM EST 01/23/2015 10:32 AM EST Narrative Resulting Agency Comment Spec In Lab Kimberly Mondragon MD BLOOD BANK LAB O RDERALEANNA Performing Organization Address [facility] de Phone Number [facility] documented in this encounter Visit Diagnoses Diagnosis Lymphoma- Primary Other malignant lymphomas, unspecified site, extranodal and solid organ sites Hypokalemia Hypopotassemia Status post autologous bone marrow transplant Bone marrow replaced by transplant documented in this encounter Administered Medications Inactive Administered Medications - up to 3 most recent administrations Medication Order MAR Action Action Date Dose Rate Site heparin, porcine 100 unit/mL flush 500 Units 500 Units, Intravenous, ONCE, 1 dose, On Cece 01/23/15 at 1000, Routine Given 01/23/2015 12:12 PM EST 500 Units sodium chloride 0.9 % flush 10 mL 10 mL, Intravenous, EVERY 1 MIN PRN, Starting on Cece 01/23/15 at 0940, Until Tue01/24/15 at 0436, Educational Therapy Teacher, Routine Given 01/23/2015 12:11 PM EST 20 mLs Given 01/23/2015 9:50 AM EST 20 mLs documented in this encounter Care Teams Billing Collections Specialist Relationship Specialty Start Date End Date Maine Dunn PA PCP - General 04/08/14 02/13/15 documented as of this encounter
--- OUTSIDE RECORDS SUMMARY | 2023-10-28 00:43 | XMS_ITS | Encounter Summary ---
Author Organization [facility] Address [facility] [address] [address] Care Team Providers Care Trauma Director Name Role Phone Belén Griffin MD Primary Care Provider [phone] Reason for Visit * Auth/Cert - Closed Specialty Diagnoses / Procedures Referred By Perry t Referred To Contact Diagnoses DLBCL Procedures PRO BONE MARROW ASPIRATION W/BX THROUGH SAME INCISION/SITE PRO BONE MARROW BX, NEEDLE/TROCAR ([facility] MSURG) BONE MARROW ASP PERFORMED W/BX THRU BX INCISION ([facility] MSURG) BONE MARROW,BIOPSY Referral ID Status Reason Start Date Expiration Date Visits Re quested Visits Authorized [id number] Closed 1 1 Encounter Details Date Type Department Care Team (Late st Contact Info) Description 04/02/2015 8:19 AM EST - 04/02/2015 10:30 AM [facility] Hospital Encounter [place] [address] Kimberly Mondragon MD [facility] [address] [place]EMAT[place] [address] Discharge Disposition: Home Social History Tobacco Use [...] 5pm or on a weekend: Call the [facility] breaker operator at and ask for the physician medical cost consultant covering for your doctor. Instructions following sedation [...] [address] ??? [place] [address] ??? [phone] ??? [email or web address] [employer] ??? [facility] ??? [facility] ??? [facility], [facility] documented in this encounter Medications at [...] tomorrow for PET scan. Kimberly Burnett MSN, BIOLOGY PROFESSOR Nurse Practitioner Section of Hematology/Oncology [facility] Office phone: documented in this encounter Procedure Notes * Kimbelry Burnett APRN - 04/02/2015 10:05 AM ESTProcedure(s): HC BONE MARROW ASPIRATION PERFORMED W BIOPSY THROUGH BX INCISION Pre-Procedure Diagnose(s): DLBCL (diffuse large B cell lymphoma); Neutropenia, unspecified type BONE MARROW BIOPSY AND ASPIRATION PROCEDURE NOTE Bone Marrow Biopsy & Aspiration with Conscious Sedation Date/Time of Procedure: April 02, 2015 at 10:00am Proceduralist: KIMBERLY BURNETT APRN, RN, MS, SHORT ORDER COOK DIAGNOSIS: Diffuse Large B- cell Lymphoma Pre-Procedure: [...] performed on the RIGHT posterior iliac crest. [id number] dressing placed and pressure applied to site(s) for 30 minutes following the procedure. Estimated Blood Loss: minimal Complications: none POST INTERVENTION CARE & PAIN ASSESSMENT: Per [facility] nurses. Follow-up: Written/Verbal instructions for site care given to patient per [facility] nurses. Follow-up with Physician as instructed. Kimberly Burnett MSN, BIOLOGY PROFESSOR Nurse Practitioner Section of Hematology/Oncology [facility] Office phone: documented in this encounter Plan of Treatment Upcoming Encounters Date Type Department Care Team (Late st Contact Info) Description 12/07/2023 12:00 PM EDT Office Visit Dermatology at [facility] [address] [place] [address] Juan F Chappell MD [facility] DR RANDEE [place] [address] documented as of this encounter Procedures Procedure Name Priority Date/Time Associated Diagnosis Comments CHROMO REPORT ACQUIRED Routine 6 12:05 PM EST IMMUNOPHENOTYPING FLOW CYTOMETRY (BLOOD) Routine 04/02/2015 10:03 AM EST BONE MARROW FINAL REPORT Routine 016 10:03 AM EST IRON STAIN, BONE MARROW Routine 04/02/19 16 10:03 AM EST BONE MARROW PANEL ([facility]/APD) Routine 04/02/2015 10:03 AM EST ([facility] MSURG) [...] chromo report acquired (04/02/2015 12:05 PM EST) [facility] Cytogenetics Acquired Report Final Report ? [id number] Specimen Type: Bone Marrow Specimen Condition: 3.5mL, [...] and other laboratory testing results is suggested. 04.12.15 (Electronic Signature) Verified By: Rajeev MANN, Ph.D., [facility] Centering Director, Cytogenetics [facility] 04/02/2015 12:0 5 PM EST Kimberly Mondragon MD HEMATOLOGY ORDER AYO [facility] [place] [address] * Bone Marrow Final Report (04/02/2015 10:03 AM EST) Pathologist [facility] Final Diagnosis [id number] ?Location: The signing pathologist has (i) examined [...] paraffin-embedded tissue sections are studied using the [employer] system technique with appropriate positive and negative [...] by the Clinical Flow Cytometry Laboratory at [facility]. It has not been cleared or approved [...] clinical laboratory testing. SPECIMEN PROCESSING FCM: [id number] Cells for immunophenotypic analysis were derived from [...] after autologous HCT. 04/05/2015 2:07 PM EST [facility] BONE MARROW STRUCTURE / Unknown 04/02/2015 10:03 AM EST 04/02/2015 10:03 AM EST Kimberly Mondragon MD PATHOLOGY/CYTOLO GY ORDERABLES [facility] [place] [place] [address] * Immunophenotyping Flow Cytometry (04/02/2015 10:03 AM EST) Immunophenotyping Flow See Comment [facility] Comment: When completed by the Pathologist, the Flow Cytometry Report ([id number]) will display under the Pathology Results section within eDH. Bone marrow specimen (specimen) 04/02/2015 10:03 AM EST 04/02/2015 10:23 AM EST Narrative Resulting Agency Comment Spec In Lab Kimberly Mondragon MD HEMATOLOGY ORDER AYO [facility] * Iron Stain, Bone Marrow (04/02/2015 10:03 AM EST) Bone Marrow Iron Stain See Comment CERNER MILLENNIUM Comment:See Bone Marrow Repo rt [id number] under Hematopathology Reports. Bone marrow specimen (specimen) 04/02/2015 10:03 AM EST 04/02/2015 10:23 AM EST Narrative Resulting Agency Comment Spec In Lab Kimberly Mondragon MD HEMATOLOGY ORDER AYO CERNER MILLENNIUM * (ABNORMAL) Differential, Manual (04/02/2015 9:08 AM [...] x10(3)/m cL CERNER MILLENNIUM Comment: Called by: [facility], Read back by: Yan White, Date-Time: 04 [...] 0.0 - 0.2 x10(3)/m cL CERNER MILLENNIUM [place] Absolute Manual 0.1(H) 0.0 - 0.0 x10(3)/m [...] Platelet Volume 9.1 9.0 - 12.0 fL CERNER MILLENNIUM Blood specimen (specimen) 04/02/2015 9:08 AM EST 04/02/2015 9:31 AM EST Narrative Resulting Agency Comment Spec In Lab Kimberly Mondragon MD HEMATOLOGY ORDER AYO [facility] documented in this encounter Visit Diagnoses Not on filedocumented in this encounter Administered Medications Inactive Administered Medications - up to 3 most recent administrations Medication Order MAR Action Action Date Dose Rate Site sodium chloride 0.9% infusion 1,000 mL, at [...] RN) documented in this encounter Care Teams Trauma Director Relationship Specialty Start Date End Date Belén Griffin MD [address] [place] [address] PCP - General Family Medicine 03/05/15 05/06/15 documented as of this encounter
--- OUTSIDE RECORDS SUMMARY | 2023-10-28 00:43 | XMS_ITS | Encounter Summary ---
Author Organization [facility] [place] [address] Care Team Providers Care Care Manager Name Role Phone Belén Griffin MD Primary Care Provider [phone] Encounter Details Date Type Department Care Team (Latest Contact Info) Description 04/24/2015 11:58 AM EST - 04/24/2015 11:59 PM [facility] Hospital Encounter Hematology [place] [phone] Status post autologous bone marrow transplant Discharge [...] as of this encounter Progress Notes * Neyda Suresh RN - 04/24/2015 2:50 PM EST Patient Name: Myriam Vivas Patient Age: 64 y.o. Birthdate: 1950 Admit date: 04/24/2015 Attending Physician: No att. providers found Access visit. See MAR and/or flowsheet. documented in this encounter Plan of Treatment Upcoming Encounters Date Type Department Care Team (Late st Contact Info) Description 12/07/2023 12:00 PM EDT Office Visit Dermatology at [facility] [address] [address] Juan F Chappell MD [facility] DR RANDEE [place] [address] documented as of this encounter Visit Diagnoses Diagnosis Status post autologous bone marrow transplant Bone marrow replaced by transplant documented in this encounter Care Teams Care Manager Relationship Specialty Start Date End Date Belén Griffin MD [address] [address] PCP - General Family Medicine 03/05/15 05/06/15 documented as of this encounter
--- OUTSIDE RECORDS SUMMARY | 2023-10-28 00:43 | XMS_ITS | Encounter Summary ---
Author Organization [facility] Address [facility] [place] [address] Care Team Providers Care Creative/Art Director Name Role Phone Belén Griffin MD Primary Care Provider [phone] Reason for Visit * Reason Comments Injections Neulasta Encounter Details Date Type Department Care Team (Late st Contact Info) Description 03/12/2015 12:00 PM EST Infusion Hematology Oncology at [address] [address] Status post autologous bone marrow transplant Social [...] as of this encounter Progress Notes * Faustina Soto RN - 03/12/2015 1:45 PM EST Infusion Note Diagnosis:Lymphoma/post Auto BMT Treatment: Neulasta Injection Neulasta 6 mg injected in right abdomen Patient aware to call clinic with any questions or concerns.Patient instructed by Dr. Mondragon to wear a mask and let us know of any s/s of infection. Plan: Return to clinic as scheduled. documented in this encounter Plan of Treatment Upcoming Encounters Date Type Department Care Team (Late st Contact Info) Description 12/07/2023 12:00 PM EDT Office Visit Dermatology at [facility] [address] [place] [address] Juan F Chappell MD [facility] [place] [address] documented as of this encounter Procedures Procedure Name Priority Date/Time Associated Diagnosis Comments CHEMOTHERAPY SCAN 03/12/2015 12:00 AM EST documented in this encounter Results * SCAN DOC: CHEMOTHERAPY (03/12/2015 12:00 AM EST) Scanning Provider MEDIA MGR [...] 6 mg, Subcutaneous, ONCE, 1 dose, On Tue03/12/15 at 1200, Routine Given 03/12/2015 11:54 AM EST 6 mg documented in this encounter Care Teams Creative/Art Director Relationship Specialty Start Date End Date Belén Griffin MD [address] [place] [address] PCP - General Family Medicine 03/05/15 05/06/15 documented as of this encounter
--- OUTSIDE RECORDS SUMMARY | 2023-10-28 00:43 | XMS_ITS | Encounter Summary ---
Author Organization [facility] Address [facility] [place] [address] Care Team Providers Care Flash Drier Operator Name Role Phone Belén Griffin MD Primary Care Provider [phone] Reason for Visit * Reason Onset Date Comments Labs Only 04/14/2015 lab tracking Encounter Details Date Type Department Care Team (Late st Contact Info) Description 04/14/2015 Telephone Hematology/Oncology at [address] [address] Ana Paula Benz RN Labs [...] Encounter - Ana Paula Benz RN - 04/14/2015 9:22 AM EST LAB TRACKING LABS ORDERED: CBC mondays MEDICATIONS: Assessment: pt states she has a cold no fever or chills, sore throat. Dr. Mondragon reviewed labs. Plan: Pt can go to work , have labs again next Tuesday and see Dr. Mondragon in clinic this tue. Pt agrees with plan. DATE WBC HGB/HCT PLTS ANC MEDS/PLAN LOCATION 04/14/15 6.03 9.7/27.6 129k 4.98 continued as planned [facility] 04/20 04/07 38.09 0.7/27.8 175 32.38 Weaning off Lexapro. Continues off Acyclovir and Bactrim [place] .03/31/15 0.98 8.7/24.2 126k .09 Pt to have bone marrow biopsy tue and pet scan see Birgit [facility] 04/0703/24/15 5.36 10.2/28.1 123 4.22 [place] 03/17/15 17.34 9.6/27.2 89 8.84 [facility] documented in this encounter Plan of Treatment Upcoming Encounters Date Type Department Care Team (Late st Contact Info) Description 12/07/2023 12:00 PM EDT Office Visit Dermatology at [facility] [address] [place] [address] Juan F Chappell MD [facility] DR RANDEE [place] [address] documented as of this encounter Visit Diagnoses Not on filedocumented in this encounter Care Teams Flash Drier Operator Relationship Specialty Start Date End Date Belén Griffin MD [address] [facility] [address] [place] [address] PCP - General Family Medicine 03/05/15 05/06/15 documented as of this encounter
--- OUTSIDE RECORDS SUMMARY | 2023-10-28 00:43 | XMS_ITS | Encounter Summary ---
Author Organization [facility] Address [facility] [place] [address] Care Team Providers Care Mill Labor Supervisor Name Role Phone Belén Griffin MD Primary Care Provider [phone] Encounter Details Date Type Department Care Team (Late st Contact Info) Description 03/31/2015 Orders Only [place] [address] Michelle Kemp APRN [facility] [place] [address] Social History Tobacco Use Types Packs/Day Years [...] 12:00 PM EDT Office Visit Dermatology at [facility] [address] [place] [address] Juan F Chappell MD [facility] DR RANDEE [place] [address] Scheduled Orders Name Type Priority Associated Diagnoses Orde r Schedule ([facility] MSURG)BONE MARROW ASP PERFORMED W/BX THRU BX INCISION Procedures Routine One Time f or 1 Occurrences starting 03/31/2015 until 03/31/2015 ([facility] MSURG) UNILAT BONE MARROW BIOSPY Procedures Routine One Time for 1 Occurrences starting 03/31/2015 until 03/31/2015 documented as of this encounter Visit Diagnoses Not on filedocumented in this encounter Care Teams Mill Labor Supervisor Relationship Specialty Start Date End Date Belén Griffin MD [address] [facility] [address] [place] [address] PCP - General Family Medicine 03/05/15 05/06/15 documented as of this encounter
--- OUTSIDE RECORDS SUMMARY | 2023-10-28 00:43 | XMS_ITS | Encounter Summary ---
Author Organization [facility] Address [facility] [place] [address] Care Team Providers Care Job Specification Writer Name Role Phone Belén Griffin MD Primary Care Provider [phone] Encounter Details Date Type Department Care Team (Late st Contact Info) Description 04/16/2015 1:30 PM EST Office Visit Hematology/Oncology at [address] [address] Kimberly Mondragon MD [facility] DR HEMAT[place] [address] Other drug-induced neutropenia Social History Tobacco Use Types Packs/Day Years [...] Sign Reading Time Taken Comments Blood Pressure 109/61 04/16/2015 1:24 PM EST Pulse 109 04/16/2015 1:24 PM EST Temperature 36.6 ??C (97.9 ??F) 04/16/2015 1:24 PM ES T Respiratory Rate 18 04/16/2015 1:24 PM EST Oxygen Saturation 100% 04/16/2015 1:24 PM EST Inhaled Oxygen Concentration - - Weight 57.6 kg (127 lb) 04/16/2015 1:24 PM EST Height 157.5 cm (5' 2.01) 04/16/2015 1:24 PM ES T Body Mass Index 23.22 04/16/2015 1:24 PM EST documented in this encounter Progress Notes * Kimberly Mondragon MD - 04/16/2015 8:10 AM EST Hematology/BMT Clinic [facility] [place] [address] FOLLOW-UP PATIENT EVALUATION PROBLEM LIST: 1. Diffuse Large B-cell Lymphoma [address] biopsy consistent [...] was not informative according to the Bassem bin piler, but the strong BCL2 expression in the absence of MUM1 suggests a germinal center origin via the Muris bin piler. Lymphoma TB discussion 10/01/14 Recommendations for salvage chemotherapy and autologous stem cell transplant. C#1 RDP 10/09/14 With stem cell collection C#2 RDP 11/04/14 PET scan negative! 11/25/14 ! ADMIT on 12/17/14 to [facility] for Autologous Peripheral BlN/ood Stem Cell Transplant [...] with Primary Refractory DLBCL. She is almost 4 months s/p an Autologous peripheral blood stem cell transplant. Just when she was returning to work, she had an acute drop in her ANC. Her acyclovir and Bactrim were held. I ended up giving her a dose of Neulasta (03/12/15) and she had an excellent Response. She denies any other new medications. No viral symptoms. However, about 3 weeks after the Neulasta shot the white count dropped again and needed neulasta (04/03/15) a second time. The drop is isolated to the myeloid lines. It is most consistent with drug effect. Possibly Rituxan. Bone marrow biopsy listedritesh Miguel feels relatively well. She is very tired and wonders how much is physical vs psychological. Hard to get herself going to do things. She saw her PCP yesterday. She had an anterior cervical lymphnode which was hard. PET negativity is reassuring. She was started on amoxicillin.. She is taking minimal medications and we reviewed all of these. She is on no homeopathic or naturopathic medications. She developed a viral syndrome (fatique, no fevers, L sided sore throat X 1 week, + clear rhinorhea, + itchy ear) - of note she has been off all medications given neutropenia listed above- and saw her PCP who palpated cervical adenoapthy especially on the Left and started amoxicillin. MEDICATIONS: Current Outpatient Prescriptions on File Prior to Visit Medication Sig Dispense Refill ??? LORazepam (ATIVAN) 0.5 mg Tablet Take 1 tablet by mouth every 6 hours as needed for Anxiety. 30tablet 1 ??? docusate sodium (COLACE) 100 mg Capsule Take 100 mg by mouth 2 times daily. ??? diphenhydrAMINE/aluminum-magnesium hydroxide/lidocaine (BMX) 1:1:1 Oral Suspension [...] needed for Nausea. 30 tablet 1 ??? senna (SENOKOT) 8.6 mg Tablet Take 1 tablet by mouth daily. No current facility-administered medications on file prior to visit. ALLERGIES: Allergies Allergen Reactions ??? Levofloxacin Other (See Comments) tendonitis ??? Tegaderm [Transparent Dressings] Other (See Comments) Unsure if actual allergy, please try [id number] Skin tears/rawness ??? Vancomycin Itching and Dermatitis [...] throat/dysphagia: See above Cough/SOB/chest pain: No Appetite: Improved Nausea/vomiting/dyspepsia: No Diarrhea/constipation: No Urinary pain, burning, incontinence: No Skin rashes or petechiae: No Peripheral edema: None Bruising/bleeding/melena: No Pain: No Other: Depression with anxiety PHYSICAL EXAM: BP 109/61 mmHg Pulse 109 Temp(Src) 36.6 ??C (97.9 ??F) Resp 18 Ht 157.5 cm (5' 2.01) Wt 57.607 kg (127 lb) BMI 23.22 kg/m2 SpO2 100% GENERAL: Myriam Vivas is in no acute distress. HEENT: Oral mucosa is clear. Neck: Supple [...] 9.7 175 04/14/15 2.8 4.9 9.7 129 Her electrolytes and LFT 's have been normal. HEMEPATH: DIAGNOSIS 1. Left-shifted granulocyte series without an increased blast population ?identified. 2. No monoclonal B-cell populations present (see Discussion). 04/02/15 DISCUSSION The majority of lymphocytes in this bone marrow aspirate specimen are CD3+ T- cells (71% of ??lymphocytes; 33% of total cells) and CD3-CD56+ NK cells constitute 26% of lymphocytes (12 ??of total cells). Essentially no B-cells are present, thus there is no immmunophenotypic ??evidence for involvement of the bone marrow by a monoclonal B-cell lymphoproliferative ??neoplasm. The granulocyte series is left-shifted by CD45/side scatter criteria but there RADIOLOGY STUDIES: Study Result ? EXAMINATION: PET/CT STANDARD (SKULL BASE TO MID THIGH) ?? CLINICAL HISTORY: restage lymphoma after transplant ?? TECHNIQUE: Procedure: Following IV injection of 04-abumgc-0-deoxyglucose (FDG) a standard uptake of approximately 60 [...] underwent an Autologous pb stem cell transplant. ?? 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 Her counts have dropped Last week. We are pleased to tell her that today her lymphoma is in remission with a negative PET scan. ?? Neutropenia - ?? Her ANC fell below 1000. I gave her a shot of Neulasta and she responded immediately. She returns today for discussion of why the ANC may have dropped and further plans. Presently her Bactrim and acyclovir on hold. We have also weaned her off of her Lexapro. Etiology of acute WBC/ANC drop is unclear. She denies any infections or viral syndromes/symptoms. ?? We'll restart acyclovir today at 800 mg twice a day. Will schedule her for pentamadine at [facility] next week. ?? Still having good effect from the Neulasta. If this is rituximab effect with delayed neutropenia, one would expect granulocyte recovery with one or more doses of rituximab. ?? Next drug to restart would be Lexapro. ?? Aphthous ulcers - started since WBC/ANC [...] for about 3 + weeks now. I am going to use pentamadine for P JPprophylaxis, given that she developed neutropenia while on Bactrim. Seems safer to temporarily use pentamadine and slowly restart other medications one by one. ?? Psychosocial - Depression and Anxiety has been an issue throughout her treatment. She is slowly weaning her Ativan. Unfortunately, just has this problem was really improving, we need to stop her antidepressant. It is one drug that has been associated with neutropenia and leukopenia. We've asked her to wean it to every other day for a week and then off. We talked at length today about whether she needed to restart the Lexapro. She feels she is doing okay with Ativan alone. Using 0.25 mg 3 times a day. She deftly seems a little bit more depressed which is understandable given the situation. We'll try to restart Lexapro next. - Reviewed the importance of daily activity, starting out with very small increments, ie. Will increase work as tolerated. ?? Vaccines - we'll see her at [facility] next week and plan to start her vaccines including Prevnar ?? Disposition - Great support from friends and Carlos. She has returned to work part-time. 2-3 hours per day. IMMEDIATE PLANS: - Referral to PT - will start when WBC recovers. - CBC only every Tuesday - [facility] triage nurses to follow. Will give Neulasta for ANC falls near or below 500 again. - neutropenic precautions reviewed. Neutropenic diet. No dentist or colo. - Continue amoxicillin her PCP recommendations. If her sore throat and earache have not recovered by Tuesday, she will call and we can change the amoxicillin to Augmentin. - she has weaned off lexapro. Using ativan 0.25mg tid. - Restart 1 med at a time. Consider lexapro next. - acyclovir 800mg bid will be restarted now - rtc on 04/23 with sabina - check labs, appt and prevnar to follow Will schedule pentamidine on that date as well. Following that, Carrie Orosco has graciously arranged future pentamadine's at [facility] which will be much more convenient for her. I discussed all of the above with the patient and all of her questions were answered. Support and counseling given as appropriate. This note was written or modified using [employer] voice recognition software. The final note was screened for mistakes. Please excuse any remaining errors. This note was written or modified using [employer] voice recognition software. The final note was screened for mistakes. Please excuse any remaining errors. Fax note to Dr Sacha Hancock [phone] per patient request. CC: Izzy Hinds MD documented in this encounter Plan of Treatment Upcoming Encounters Date Type Department Care Team (Late st Contact Info) Description 12/07/2023 12:00 PM EDT Office Visit Dermatology at [address] [address] Juan F Chappell MD [facility] DR RANDEE [place] [address] documented as of this encounter Visit Diagnoses Diagnosis Other drug-induced neutropenia documented in this encounter Care Teams Job Specification Writer Relationship Specialty Start Date End Date Belén Griffin MD [address] [place] [address] PCP - General Family Medicine 03/05/15 05/06/15 documented as of this encounter
--- OUTSIDE RECORDS SUMMARY | 2023-10-28 00:43 | XMS_ITS | Encounter Summary ---
Author Organization [facility] [place] [address] Care Team Providers Care Civil Defense Director Name Role Phone Belén Griffin MD Primary Care Provider Encounter Details Date Type Department Care Team (Latest Contact Info) Description 04/03/2015 1:32 PM EST - 04/03/2015 11:59 PM [facility] Hospital Encounter [place] [address] Lymphoma, unspecified lymphoma, unspecified lymphoma region Discharge [...] as of this encounter Progress Notes * Mayra Moreno RN - 04/03/2015 1:54 PM EST Patient Name: Myriam Vivas Patient Age: 64 y.o. Birthdate: 1950 Admit date: 04/03/2015 Attending Physician: No att. providers found Access visit. See MAR and/or flowsheet. neulasta given as documented in edh documented in this encounter Plan of Treatment Upcoming Encounters Date Type Department Care Team (Late st Contact Info) Description 12/07/2023 12:00 PM EDT Office Visit Dermatology at [facility] [address] [place] [address] Juan F Chappell MD [facility] DR RANDEE [place] [address] documented as of this encounter Visit Diagnoses Diagnosis Lymphoma, unspecified lymphoma, unspecified lymphoma region documented in this encounter Care Teams Civil Defense Director Relationship Specialty Start Date End Date Belén Griffin MD [address] [facility] [address] [place] [address] PCP - General Family Medicine 03/05/15 05/06/15 documented as of this encounter
--- OUTSIDE RECORDS SUMMARY | 2023-10-28 00:43 | XMS_ITS | Encounter Summary ---
Author Organization [facility] [place] [address] Care Team Providers Care Newspaper Vendor Name Role Phone Unavailable Primary Care Provider Unavailabl e Reason for Visit * Reason Comments Other Encounter Details Date Type Department Care Team (Late st Contact Info) Description 02/20/2015 Telephone Hematology [place] [address] Erika Workman, RN Social History Tobacco Use Types Packs/Day [...] encounter Miscellaneous Notes * Telephone Encounter - Erika Workman, RN - 02/20/2015 10:46 AM EST RESEARCH NURSE TELEPHONE NOTE E1412: Randomized Phase II Open Label Study of Lenalidomide R-CHOP (R2CHOP) vs RCHOP (Rituximab, Cyclophosphamide, Doxorubicin, Vincristine and Prednisone) in 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 Mondragon told her she was having scans in March. She believes she should be going to [facility] in February. Also, she wants to return to work, and was told to call to discuss this. Please call her at [phone]. Thanks! Kadie Protocol requirements reviewed with research coordinator. Due to primary refractory disease based upon biopsy s/p PET-6 and subsequent treatment, patient will be followed for survival only. Return call placed to patient, who states that she was under the impression that she did not need to do anything further for study and therefore was confused about the need to come to [facility] on 03/06/15 as scheduled. Microsoft Windows Engineer advised Ms. Vivas that her appointments for 03/06/15 at [facility] were booked in error. Discussed that although she has no specific requirements for the study any longer, we will continue tocollect data for E1412 in regards to survival status if she is agreeable. Myriam verbalizes agreement to data collection via medical records. She was appreciative of the phone call and will call [facility] to ensure that her next appointments with Dr. Mondragon are scheduled per [id number]. Message sent to Светлана Boone RN with request for assistance regarding return to work as mentioned above. documented in this encounter Plan of Treatment Upcoming Encounters Date Type Department Care Team (Late st Contact Info) Description 12/07/2023 12:00 PM EDT Office Visit Dermatology at [facility] [address] [place] [address] Juan F Chappell MD [facility] DR RANDEE [place] [address] documented as of this encounter Visit Diagnoses Not on filedocumented in this encounter
--- OUTSIDE RECORDS SUMMARY | 2023-10-28 00:43 | XMS_ITS | Encounter Summary ---
Author Organization Count Includes [facility] Address [facility] [place] [address] Care Team Providers Care Cargo And Container Inspector Name Role Phone Belén Griffin MD Primary Care Provider [phone] Encounter Details Date Type Department Care Team (Late st Contact Info) Description 03/12/2015 Notes Only Hematology [place] [phone] Kimberly Mondragon MD [facility] DR HEMATOLOGY [place] [address] Social History Tobacco Use Types Packs/Day Years [...] Progress Notes * Kimberly Mondragon MD - 03/12/2015 2:53 PM EST Labs noted w/ progressive neutropenia. Unclear etiology. No new meds. No illnesses. Asked her to hold acyclovir and bactrim. Neutropenic precautions discussed. Will give neulasta 6mg today and recheck CBC on 03/17/15 and again on 03/31/15. If neutropenia recurs may need to consider BMBx but normal H/Hand platelet count is very encouraging. Wbc 0.89 ANC 0.02 hgb 9.8 plt 135k documented in this encounter Plan of Treatment Upcoming Encounters Date Type Department Care Team (Late st Contact Info) Description 12/07/2023 12:00 PM EDT Office Visit Dermatology at [facility] [address] [place] [address] Juan F Chappell MD [facility] DR RANDEE [place] [address] documented as of this encounter Visit Diagnoses Not on filedocumented in this encounter Care Teams Cargo And Container Inspector Relationship Specialty Start Date End Date Belén Griffin MD [address] [place] [address] [address] [facility] [place] [address] PCP - General Family Medicine 03/05/15 05/06/15 documented as of this encounter
--- OUTSIDE RECORDS SUMMARY | 2023-10-28 00:43 | XMS_ITS | Encounter Summary ---
Author Organization [facility] Address [facility] [place] [address] Care Team Providers Care Wiring Mechanic Name Role Phone Belén Griffin MD Primary Care Provider Reason for Visit * Reason Onset Date Comments Labs Only 04/07/2015 Encounter Details Date Type Department Care Team (Late st Contact Info) Description 04/07/2015 Telephone Hematology/Oncology at [address] [address] Dana Sanchez I, RN Labs [...] Telephone Encounter - Dana Sanchez RN - 04/07/2015 11:08 AM EST LAB TRACKING LABS ORDERED: CBC mondays MEDICATIONS: Neulasta 6mg on 04/03/2015.Spoke with patient who reports feeling fatigued, otherwise well Per Dr mondragon Stay OFF all of the meds as she is doing CBC on Tuesday She can go to work and stop neutropenic diet for now Kimberly Mondragon MD DATE WBC HGB/HCT PLTS ANC MEDS/PLAN LOCATION 04/07 38.09 0.7/27.8 175 32.38 Weaning off Lexapro. Continues off Acyclovir and Bactrim [facility] 2.29 03/31/15 0.98 8.7/24.2 126k .09 Pt to have bone marrow biopsy tue and pet scan see Birgit [facility] 04/0703/24/15 5.36 10.2/28.1 123 4.22 [place] 03/17/15 17.34 9.6/27.2 89 8.84 NV Assessment: Patient states she feels good, but is tired. Plan: labs every Tuesday per Dr. Mondragon-Patient aware and agreeable to plan documented in this encounter Plan of Treatment Upcoming Encounters Date Type Department Care Team (Late st Contact Info) Description 12/07/2023 12:00 PM EDT Office Visit Dermatology at [facility] [address] [place] [address] Juan F Chappell MD [facility] DR [place] [address] documented as of this encounter Visit Diagnoses Not on filedocumented in this encounter Care Teams Wiring Mechanic Relationship Specialty Start Date End Date Belén Griffin MD [address] [place] [address] [address] [facility] [place] [address] PCP - General Family Medicine 03/05/15 05/06/15 documented as of this encounter
--- OUTSIDE RECORDS SUMMARY | 2023-10-28 00:43 | XMS_ITS | Encounter Summary ---
Author Organization [facility] Address [facility] [place] [address] Care Team Providers Care Ceramic Tiler Name Role Phone Belén Griffin MD Primary Care Provider [phone] Reason for Visit * Reason Onset Date Comments Medical Care Coordination 03/24/2015 Pentam idine Encounter Details Date Type Department Care Team (Late st Contact Info) Description 03/24/2015 Telephone Hematology [place] [phone] Светлана Boone RN Medical Care Coordination (Pentamidine) Social History Tobacco Use Types Packs/Day Years [...] encounter Miscellaneous Notes * Telephone Encounter - Светлана Boone RN - 03/24/2015 5:36 PM EST 03/24/15 BMT Coordinator note/ Pentamidine O: Dr Mondragon requested i set up pt for Pentamidine treatment at [facility] or [facility]. [facility] was willing to schedule myriam but she has never received care and doesn't have a medical record number or insurance info. The respiratory therapist from [facility] called me back and said that they haven't done the procedure for a couple of years but was willing to consider this. He spoke to the respir atory staff here to identify what equipment they would need and he is willing to consider performing Pentamidine for pt in April. Myriam has PET here on 04/03/15 and will get her Pentamidine at this time. A; Myriam agreeable to plan P: I will call [facility] beginning of April to confirm they are able to do the pentamidine therapy And will fax orders if they can. Myriam will need 5 more months of therapy. documented in this encounter Plan of Treatment Upcoming Encounters Date Type Department Care Team (Late st Contact Info) Description 12/07/2023 12:00 PM EDT Office Visit Dermatology at [facility] [address] [place] [address] Juan F Chappell MD [facility] DR RANDE[place] [address] documented as of this encounter Visit Diagnoses Not on filedocumented in this encounter Care Teams Ceramic Tiler Relationship Specialty Start Date End Date Belén Griffin MD [address] [place] [address] PCP - General Family Medicine 03/05/15 05/06/15 documented as of this encounter
--- OUTSIDE RECORDS SUMMARY | 2023-10-28 00:43 | XMS_ITS | Encounter Summary ---
Author Organization [facility] Address [facility] [place] [address] Care Team Providers Care Corporate Bond Trader Name Role Phone Belén Griffin MD Primary Care Provider [phone] Encounter Details Date Type Department Care Team (Late st Contact Info) Description 04/24/2015 [place] [address] Kimberly Burnett APRN [facility] [place] [address] Social History Tobacco Use Types Packs/Day Years [...] 12:00 PM EDT Office Visit Dermatology at [facility] [address] [place] [address] Juan F Chappell MD [facility] [address] [place] [address] documented as of this encounter Visit Diagnoses Not on filedocumented in this encounter Care Teams Corporate Bond Trader Relationship Specialty Start Date End Date Belén Griffin MD [address] [facility] 1 [place], [place] [address] PCP - General Family Medicine 03/05/15 05/06/15 documented as of this encounter
--- OUTSIDE RECORDS SUMMARY | 2023-10-28 00:43 | XMS_ITS | Encounter Summary ---
Author Organization [facility] Address [facility] [place] [address] Care Team Providers Care Mail Handlers Supervisor Name Role Phone Belén Griffin MD Primary Care Provider Reason for Visit * Diagnostic Test (Routine) - Closed Specialty Diagnoses / Procedures Referred By Perry cabrera Referred To Contact Radiology Diagnoses 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 Examination of participant in clinical trial Procedures PET/CT STANDARD (Skull base to Mid-thigh) Kimberly Mondragon MD [facility] [place] [address] [place] [address] Referral ID Status Reason Start Date Expiration Date V isits Requested Visits Authorized [id number] Closed Specialty Service Requested 03/24/2015 05/23/2015 1 1 Encounter Details Date Type Department Care Team (Late st Contact Info) Description 04/03/2015 9:21 AM EST - 04/03/2015 12:35 PM [facility] Hospital En[place] [address] Kimberly Mondragon MD [facility] [address] [place] [address] Discharge Disposition: Home Social History Tobacco Use [...] Visit Dermatology at [facility] [address] [place] [address] Juan F Chappell MD [facility] [address] [place] [address] documented as of this encounter Procedures Procedure Name Priority Date/Time Associated Diagnosis Comments NM PET CT SKULL BASE TO MID-THIGH ([facility]) Routine 04/03/2015 11:24 AM EST 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 Examination of participant in clinical trial documented in this encounter Results * PET/CT STANDARD (Skull base to Mid-thigh) (04/03/2015 11:24 AM EST) Anatomical Region Laterality Modality Nuclear Medicine Impressions 04/03/2015 12:16 PM EST IMPRESSION: No active lymphoma. Thank you for referring this patient to [facility]. I have personally reviewed the image(s) and the residents interpretation and agree with the findings, Lazaro Thompson at 04/03/2015 12:16 PM Narrative 04/03/2015 12:16 PM EST EXAMINATION: PET/CT STANDARD (SKULL BASE TO MID THIGH) CLINICAL HISTORY: restage lymphoma after transplant TECHNIQUE: Procedure: Following IV injection of 10-owihky-2-deoxyglucose (FDG) a standard uptake of approximately 60 [...] transplant TECHNIQUE: Procedure: Following IV injection of 80-ojmvoz-4-deoxyglucose(FDG) a standard uptake of approximately 60 minutes, [...] Thank you for referring this patient to [facility]. I have personally reviewed the image(s) and the residents interpretationand agree with the findings, Lazaro Thompson at 04/03/2015 12:16 PM Kimberly Mondragon MD IMG PET ORDERABL ES documented in this encounter Visit Diagnoses Not on filedocumented in this encounter Care Teams Mail Handlers Supervisor Relationship Specialty Start Date End Date Belén Griffin MD [address] [place] [address] PK[address] [facility] [[email or web address] [address] [place] [address] PCP - General Family Medicine 03/05/15 05/06/15 documented as of this encounter
--- OUTSIDE RECORDS SUMMARY | 2023-10-28 00:43 | XMS_ITS | Encounter Summary ---
Author Organization [facility] Address [facility] [place] [address] Care Team Providers Care Agricultural Service Technician Name Role Phone Belén Griffin MD Primary Care Provider [phone] Encounter Details Date Type Department Care Team (Latest Contact Info) Description 04/24/2015 11:57 AM [facility] Hospital Encounter Hematology [place] [id number] Lymphoma; Hypokalemia Discharge Disposition: Home Social History [...] Progress Notes * Lei Castañeda RN - 04/24/2015 12:22 PM EST Patient Name: Myriam Vivas Patient Age: 64 y.o. Birthdate: 1950 Admit date: 04/24/2015 Attending Physician: Kimberly Mondragon MD Access visit. Mediport accessed & de-accessed without incident. Blood specimens obtained & sent to lab. See MAR and/or flowsheet. documented in this encounter Plan of Treatment Upcoming Encounters Date Type Department Care Team (Late st Contact Info) Description 12/07/2023 12:00 PM EDT Office Visit Dermatology at [facility] [address] [place] [address] Juan F Chappell MD [facility] [place] [address] documented as of this encounter Procedures Procedure Name Priority Date/Time Associated Diagnosis Comments HEMOGRAM STAT 04/24/2015 12:20 PM EST Lymphoma DIFFERENTIAL, AUTOMATED STAT 04/24/2015 12:20 PM EST Lymphoma CBC (WITH DIFF) STAT 04/24/2015 12:20 PM EST Lymphoma LACTATE DEHYDROGENASE STAT 04/24/2015 12:20 PM EST Lymphoma COMPREHENSIVE METABOLIC PANEL STAT 04/24/2015 12:20 PM EST Lymphoma documented in this encounter Results * (ABNORMAL) Differential, Automated (04/24/2015 12:20 PM EST) Neutrophil % 64.2 % [facility] Neutrophil Absolute 2.57 1.50 - 6.30 x10(3)/mc L [facility] Lymph % 17.2 % [facility] Lymphocytes Abs 0.7(L) 1.0 - 3.6 x10(3)/mc L [facility] Monocyte % 15.5 % [facility] Monocyte Abs 0.6 0.2 - 1.0 x10(3)/mc L [facility] Eos % 2.7 % [facility] Eosinophils Abs 0.1 0.0 - 0.5 x10(3)/mc L [facility] Basophil % 0.2 % [facility] Baso Absolute 0.0 0.0 - 0.2 x10(3)/mc L [facility] Immature Gran % 0.20 % [facility] Comment: Immature granulocytes(IG's)percentage and absolute count will include metamyelocytes, myelocytes, and promyelocytes. Blood smears from CBCs yielding IG's will be scanned manually for concordance. If this scan disagrees with the automated IG or if promyelocytes are noted, a manual differential will be performed. Immature Gran Absolute 0.01 0.00 - 0.05 x10(3)/mc L [facility] Blood specimen (specimen) 04/24/2015 12:20 PM EST 04/24/2015 12:36 PM EST Narrative Resulting Agency Comment Spec In Lab Kimberly Mondragon MD HEMATOLOGY ORDER AYO [facility] [place] [address] * (ABNORMAL) Hemogram (04/24/2015 12:20 PM EST) White Blood Cell 4.0 4.0 - 10.0 x10(3)/[facility] Red Blood Cell 2.78(L) 3.93 - 5.22 x10(6)/ L [facility] Hemoglobin 9.3(L) 11.2 - 15.7 gm/dL [facility] Hematocrit 26.2(L) 34.0 - 45.0 % [facility] Mean Cell Volume 94.2(H) 79.0 - 94.0 fL [facility] Mean Cell Hemoglobin 33.5(H) 26.6 - 32.2 pg [facility] Mean Cell Hemoglobin Concentration 35.5 32.0 - 36.5 gm/dL [facility] Platelet 162 145 - 370 x10(3)/ L [facility] RDW Standard Deviation 46.4(H) 35.0 - 46.0 fL [facility] RDW coefficient of variation 13.6 10.9 - 14.4 % [facility] Mean Platelet Volume 9.2 9.0 - 12.0 fL [facility] Blood specimen (specimen) 04/24/2015 12:20 PM EST 04/24/2015 12:36 PM EST Narrative Resulting Agency Comment Spec In Lab Kimberly Mondragon MD HEMATOLOGY ORDER AYO Performing Organization Address City/[facility]/ZIP Co de Phone Number [facility] [place] [address] * Lactate Dehydrogenase (04/24/2015 12:20 PM EST) Lactate Dehydrogenase 147 110 - 220 unit/L [facility] Blood specimen (specimen) 04/24/2015 12:20 PM EST 04/24/2015 12:36 PM EST Narrative Resulting Agency Comment Spec In Lab Kimberly Mondragon MD CHEMISTRY ORDERA BLES Performing Organization Address [facility] Co de Phone Number [facility] [place] [address] * (ABNORMAL) Comprehensive metabolic panel (non-fasting) (04/24/2015 12:20 PM EST) Glucose 92 65 - 199 mg/dL [facility] Comment:Diabetes: >=200 mg/d L plus symptoms Blood Urea Nitrogen 26(H) 8 - 18 mg/dL [facility] Creatinine 1.19 0.70 - 1.20 mg/dL [facility] Comment: Please note that the pediatric reference intervals supplied above were not validated at [facility]. Results from pediatric patients should be interpreted in conjunction to the patient's age, height and muscle mass. Sodium 143 135 - 145 mmol/L [facility] Potassium 3.5 3.5 - 5.0 mmol/L [facility] Comment: Please note: ??Patients with WBC >100,000 may have falsely elevated Potassium levels. ??For accurate Potassium quantification in these patients send serum separator tube (gold top) for subsequent determinations. ??Contact the Clinical Chemistry Laboratory if there are any questions. Chloride 104 98 - 107 mmol/L [facility] Carbon Dioxide 23 22 - 31 mmol/L [facility] Anion Gap 16(H) 5 - 15 mmol/L [facility] Calcium 10.1 8.5 - 10.5 mg/dL [facility] Protein, Total 7.0 6.1 - 8.0 gm/dL [facility] Albumin 4.5 3.2 - 5.2 gm/dL [facility] Aspartate Aminotransferase 16 0 - 30 unit/L [facility] Alanine Aminotransferase 16 0 - 30 unit/L [facility] Alkaline Phosphatase 86 40 - 104 unit/L [facility] Bilirubin, Total 0.9 0.2 - 1.3 mg/dL [facility] Bilirubin, Direct 0.2 0.0 - 0.3 mg/dL [facility] Est Glomerular Filtration Rate 46(L) >=60 [facility] Comment: This estimated GFR [...] the following links into your internet browser. [email or web address] Blood specimen (specimen) 04/24/2015 12:20 PM EST 04/24/2015 12:36 PM EST Narrative Resulting Agency Comment Spec In Lab Kimberly Mondragon MD CHEMISTRY ORDERA BLES [facility] [place] [address] documented in this encounter Visit Diagnoses Diagnosis Lymphoma Other malignant lymphomas, unspecified site, extranodal and solid organ sites Hypokalemia Hypopotassemia documented in this encounter Administered Medications Inactive Administered Medications - up to 3 most recent administrations Medication Order MAR Action Action Date Dose Rate Site heparin, porcine 100 unit/mL flush 500 Units 500 Units, Intravenous, ONCE, 1 dose, On Cece 04/24/15 at 1000, Routine Given 04/24/2015 12:21 PM EST 500 Units sodium chloride 0.9 % flush 20 mL 20 mL, Intravenous, CONTINUOUS PRN, 100 doses, Starting on Cece 04/24/15 at 0942, Until Tue04/25/15 at 0439, Ham Pumper, Routine New Bag 04/24/2015 12:21 PM EST 20 mLs documented in this encounter Care Teams Agricultural Service Technician Relationship Specialty Start Date End Date Belén Griffin MD [address] [facility] [address] [place] [address] PCP - General Family Medicine 03/05/15 05/06/15 documented as of this encounter
--- OUTSIDE RECORDS SUMMARY | 2023-10-28 00:43 | XMS_ITS | Encounter Summary ---
Author Organization [facility] Address [facility] [place] [address] Care Team Providers Care Care Process Manager Name Role Phone Belén Griffin MD Primary Care Provider [phone] Encounter Details Date Type Department Care Team (Late st Contact Info) Description 04/18/2015 Telephone Hematology Oncology at [address] [address] Faustina Soto RN Social History Tobacco Use Types Packs/Day [...] Telephone Encounter - Faustina Soto RN - 04/18/2015 10:37 AM EST Patient called today with complaints of her throat continuing to be sore and she is unable to eat solid foods at this time. She is taking liquids. She denies any fevers or chills. Discussed with Dr. Mondragon plan as follows: CBC today - Scheduled at [facility] 2nd floor for 1130-12 noon Stop amoxicillin Start augmentin 875 bid X 10 d - Script sent to her pharmacy Patient made aware of plan and is agreeable to above. 1150 Patient had labs drawn WBC 5.03/Hgb 9.2/Hct 26.6/Plt 124/ANC 3.84 Patient is taking tylenol for throat discomfort and states pain is improved. She picked up her prescription for Augmentin. documented in this encounter Plan of Treatment Upcoming Encounters Date Type Department Care Team (Late st Contact Info) Description 12/07/2023 12:00 PM EDT Office Visit Dermatology at [facility] [address] [place] [address] Juan F Chappell MD [facility] DR RANDE[place] [address] documented as of this encounter Visit Diagnoses Not on filedocumented in this encounter Care Teams Care Process Manager Relationship Specialty Start Date End Date Belén Griffin MD [address] [place] [address] [address] PCP - General Family Medicine 03/05/15 05/06/15 documented as of this encounter
--- OUTSIDE RECORDS SUMMARY | 2023-10-28 00:43 | XMS_ITS | Encounter Summary ---
Author Organization [facility] Address [facility] [place] [address] Care Team Providers Care Lathe Operator Contact Lens Name Role Phone Belén Griffin MD Primary Care Provider [phone] Encounter Details Date Type Department Care Team (Late st Contact Info) Description 03/19/2015 12:00 PM EST Office Visit Hematology/Oncology at [address] [address] Kimberly Mondragon MD [facility] DR [place] [address] Lymphoma, unspecified lymphoma, unspecified lymphoma region Social [...] Sign Reading Time Taken Comments Blood Pressure 117/65 03/19/2015 12:05 PM EST Pulse 92 03/19/2015 12:05 PM EST Temperature 36.7 ??C (98.1 ??F) 03/19/2015 12:[address] Respiratory Rate 16 03/19/2015 12:05 PM EST Oxygen Saturation 100% 03/19/2015 12:05 PM EST Inhaled Oxygen Concentration - - Weight 61.7 kg (136 lb) 03/19/2015 12:05 PM EST Height 158.3 cm (5' 2.32) 03/19/2015 12:[address] Body Mass Index 24.62 03/19/2015 12:05 PM EST documented in this encounter Progress Notes * Kimberly Mondragon MD - 03/19/2015 12:32 AM EST Hematology/BMT Clinic [facility] [place] [address] FOLLOW-UP PATIENT EVALUATION PROBLEM LIST: 1. Diffuse [...] was not informative according to the Bassem manager chemical, but the strong BCL2 expression in the absence of MUM1 suggests a germinal center origin via the Muris manager chemical. Lymphoma TB discussion 10/01/14 Recommendations for salvage chemotherapy and autologous stem cell transplant. C#1 RDHAP 10/09/14 With stem cell collection C#2 RDHAP 11/04/14 PET scan negative! 11/25/14 ! ADMIT on 12/17/14 to [facility] for Autologous Peripheral BlN/ood Stem Cell Transplant [...] process, and says she doesn't really remember. Chest when she was returning to work, she had an acute drop in her ANC. Her acyclovir and Bactrim were held. I ended up giving her a dose of Neulasta and she had an excellent Response. She denies anyother new medications. No viral symptoms. MEDICATIONS: Current Outpatient Prescriptions on File Prior to Visit Medication Sig Dispense Refill ??? acyclovir (ZOVIRAX) 800 mg Tablet Take 1 tablet by mouth 2 times daily for 30 days. 60 tablet 11 ??? LORazepam (ATIVAN) 0.5 mg Tablet Take 1 tablet by mouth every 6 hours as needed for Anxiety. 30tablet 1 ??? sulfamethoxazole-trimethoprim (BACTRIM DS) 800-160 mg Tablet Take 1 tablet by mouth 2 times daily. Take 1 pill 2 times daily on Saturdays and Sundays. 20 tablet 5 ??? hydrocortisone 1 % Cream Apply topically [...] Comments) Unsure if actual allergy, please try [id number] Skin tears/rawness ??? Vancomycin Itching and Dermatitis [...] No Other: Depression with anxiety PHYSICAL EXAM: There were no vitals taken for this visit. GENERAL: Myriam Vivas is in no acute [...] give neulasta 03/17/15 17.3 8.8 9.6 89 Start pentamidine Her electrolytes and LFT 's have been normal. RADIOLOGY STUDIES: None ASSESSMENT: Myriam Vivas is [...] minimal transfusion support - CBC has engrafted. Her counts have dropped Last week. Her ANC fell below 1000. I gave her a shot of Neulasta and she responded immediately. She returns today for discussion of why the ANC may have dropped and further plans. Presently her Bactrim and acyclovir on hold. Etiology of acute WBC/ANC drop is unclear. She denies any infections or viral syndromes/symptoms. ?? Aphthous ulcers - started since WBC/ANC dropped. Off ACV so could be viral or could be from neutropenia. Rinsing w/ saline and baking soda. Juan M's biotene as well. Will also give BMX for local pain relief./ ?? ID - No focal s/s of infection. No infectious complications while hospitalized. - Will need pentamidine inhaled once a month. Will arrange at [facility] DANIELLE and continue monthly up to 6 months post transplant. ?? FEN/Renal - Improved appetite- She met with the local memorial adviser in the past. Limited by mouth ulcer pain right now. ?? Psychosocial - Depression and Anxiety has been an issue throughout her treatment. She is slowly weaning her Ativan. - Reviewed the importance of daily activity, starting out with very small increments, ie. Will increase work as tolerated. ?? Vaccines - to start post- transplant vaccinations 6 months post transplant - due June 2015. She also needs flu shot annually. No [...] to work part-time. 2-3 hours per day. - Return to work - see HPI IMMEDIATE PLANS: - Continue to hold bactrim and acyclovir. ACV held as of low WBC/ANC last week. - restaging mid Mar with labs and PET at [facility]. No BMBX needed. Scheduled on 04/03/15. - Referral to PT - starts tomorrow. - CBC only every Friday 03/24 and 03/31. (in addition to labs at [facility] on 04/03/15). - Will ask Светлана Boone to schedule pentamidine DANIELLE at [facility] I discussed all of the above with the patient and all of her questions were answered. Support and counseling given as appropriate. This note was written or modified using [employer] voice recognition software. The final note was screened for mistakes. Please excuse any remaining errors. CC: Izzy Hinds MD documented in this encounter Plan of Treatment Upcoming Encounters Date Type Department Care Team (Late st Contact Info) Description 12/07/2023 12:00 PM EDT Office Visit Dermatology at [facility] [address] [place] [address] Juan F Chappell MD [facility] [place] [address] documented as of this encounter Procedures Procedure Name Priority Date/Time Associated Diagnosis Comments LAB SCAN 03/17/2015 12:00 AM EST documented in this encounter Results * SCAN DOC: LAB (03/17/2015 12:00 AM EST) Scanning Provider MEDIA MGR SCAN EXT O RDR/RSLT documented in this encounter Visit Diagnoses Diagnosis Lymphoma, unspecified lymphoma, unspecified lymphoma region documented in this encounter Care Teams Lathe Operator Contact Lens Relationship Specialty Start Date End Date Belén Griffin MD [address] [place] [address] PCP - General Family Medicine 03/05/15 05/06/15 documented as of this encounter
--- OUTSIDE RECORDS SUMMARY | 2023-10-28 00:43 | XMS_ITS | Encounter Summary ---
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 Examination of participant in clinical trial Kimberly Mondragon MD [facility] [place] [address] Edward Mandel, PT [address] [facility] [address] [place] [address] Referral ID Status Reason Start Date Expiration Date V isits Requested Visits Authorized [id number] Closed Evaluate and Treat 03/05/2015 09/01/2015 12 12 * Diagnostic Test (Routine) - Closed Specialty Diagnoses / Procedures Referred By Contnam t Referred To Contact Radiology Diagnoses 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 Examination of participant in clinical trial Procedures PET/CT STANDARD (Skull base to Mid-thigh) Kimberly Mondragon MD [facility] [place] [address] [place] [address] Referral ID Status Reason Start Date Expiration Date V isits Requested Visits Authorized [id number] Closed Specialty Service Requested 03/24/2015 05/23/2015 1 1 Encounter Details Date Type Department Care Team (Late st Contact Info) Description 03/05/2015 9:30 AM EST Office Visit Hematology/Oncology at [address] [address] Kimberly Mondragon MD [facility] [place] [address] Status post autologous bone marrow transplant; DLBCL [...] Sign Reading Time Taken Comments Blood Pressure 115/62 03/05/2015 9:18 AM EST Pulse 95 03/05/2015 9:18 AM EST Temperature 36.4 ??C (97.5 ??F) 03/05/2015 9:18 AM ES T Respiratory Rate 16 03/05/2015 9:18 AM EST Oxygen Saturation 100% 03/05/2015 9:18 AM EST Inhaled Oxygen Concentration - - Weight 61.9 kg (136 lb 8 oz) 03/05/2015 9:18 AM EST Height 158.3 cm (5' 2.32) 03/05/2015 9:18 AM ES T Body Mass Index 24.71 03/05/2015 9:18 AM EST documented in this encounter Progress Notes * Kimberly Mondragon MD - 03/04/2015 9:29 PM EST Hematology/BMT Clinic [place] [address] FOLLOW-UP PATIENT EVALUATION PROBLEM LIST: 1. Diffuse [...] was not informative according to the Bassem reel fed printer, but the strong BCL2 expression in the absence of MUM1 suggests a germinal center origin via the Muris reel fed printer. Lymphoma TB discussion 10/01/14 Recommendations for salvage chemotherapy and autologous stem cell transplant. C#1 RDP 10/09/14 With stem cell collection C#2 [facility] 11/04[facility]14 PET scan negative! 11/25/14 ! 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 She is 2.5 months s/p an Autologous peripheral blood stem cell transplant. She tolerated the transplant reasonably well(see specifics above). She is feeling quite anxious about the whole process, and says she doesn't really remember. More energy and walking outdoors a little bit. She is driving locally to do errands. Decorated her apartment last night. Dealing with a bit of depression. Working 10 hours per week - this is her 2nd week back. Working about 2 hours per day. They have been very understanding w/ her reduced hours. Naps after working. Scratchy throat. No fevers. Has an excellent Appetite and has been eating. No N/V. Taking bactrim. Bowels are fairly normal. One episode of [...] as needed for Anxiety. 60tablet 1 ??? escitalopram oxalate (LEXAPRO) 10 mg Tablet Take 1 tablet by mouth daily. 30 tablet 12 ??? acyclovir (ZOVIRAX) 400 mg Tablet Take 2 tablets by mouth 2 times daily. 60 tablet 3 ??? hydrocortisone 1 % Cream [...] Comments) Unsure if actual allergy, please try [id number] Skin tears/rawness ??? Vancomycin Itching and Dermatitis [...] Other: Depression with anxiety PHYSICAL EXAM: BP 115/62 mmHg Pulse 95 Temp(Src) 36.4 ??C (97.5 ??F) (Oral) Resp 16 Ht 158.3 cm (5' 2.32) Wt 61.916 kg (136 lb 8 oz) BMI 24.71 kg/m2 SpO2 100% GENERAL: Myriam Vivas is in no acute distress. Accompanied by her significant other. HEENT: Oral mucosa is clear. Neck: Supple Lungs: Clear breath sounds bilaterally Heart: Regular rate and rhythm without murmur Abdomen: Soft, nontender and no organomegaly Skin: No rash Extremity: shows no edema Muskuloskeletal: Walks slowly and deliberately. Neuro: A+O x 3 Psychiatric: Normal LABORATORY STUDIES: Labs today with Wbc 2.0 ANC 0.98 hgb 9.5 plt 149 Her electrolytes are normal. Creatinine is stable at 1.35. LFTs are essentially stable. LDH is normal at 196. RADIOLOGY STUDIES: None ASSESSMENT: Myriam Vivas is a 64 y.o. female with Primary Refractory DLBCL. She recently underwent an Autologous pb stem cell transplant. 1. /BMT - 2.5 months out - Conditioning regimen: CBV - Day 0 = 12/23/14 - Complications included n/v/d. Low grade fevers thought to be d/t blood count recovery; hemoirrhoids, anorexia - minimal transfusion support - CBC has engrafted. Her counts have dropped into her last appointment. In the meantime, she's beenstarted on Bactrim. I suspect that this is the cause of the drop in white count, ANC, and platelet count. I'm going to have her hold her Bactrim this weekend. And recheck counts next week. She may need temp been prophylaxis. - NO transfusions needed 2. ID - [...] and continue for six months post transplant. - Given drop in her counts. I suspect this is from the addition of Bactrim. Going to have her hold her Bactrim this weekend and check a CBC next Tuesday. If the counts go up off the Bactrim, then she may need pentamidine prophylaxis instead of Bactrim. - 3. FEN/Renal - Improved appetite- She met with the local traffic clerk last week. - She is hungry and [...] daily use of Ativan. She is using 0.5-1.5 ativan per day. Not using it for sleep any more - Just using for anxiety. Using tylenol PM at night instead. We will discuss this in the future to help wean her off. - she is going to call her therapist for an appt with her anxiety this week. - Reviewed the importance of daily activity, starting out with very small increments, ie. Will increase work as tolerated. 6. Disposition - Living back at home. Great support from friends and Carlos. She has tightness in mm which might bedue to lack of use or possibly also due to syd quinolones. I've referred her to physical therapy. - Return to work - see HPI IMMEDIATE PLANS: - Hold Bactrim DS 1 tablet BID on Saturdays and Sundays. We will recheck a CBC next Tuesday. She may need 10 again if Bactrim is not tolerated due to drop in counts. - Continue Acyclovir BID. - restaging mid Mar with labs and PET at [facility]. No BMBX needed. - Referral to PT Myriam had a list of questions mainly regarding infectious risks at this point. We discussed all of these. OK to eat all foods. No restaurants yet except off hours. Mask in crowds. . Flights around 4-5 mos post transplant. I discussed all of the above with the patient and all of her questions were answered. Support and counseling given as appropriate. This note was written or modified using Mytrus voice recognition software. The final note was screened for mistakes. Please excuse any remaining errors. 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 Thank you for referring this patient to [facility]. I have personally reviewed the image(s) and the residents interpretation and agree with the findings, Lazaro Thompson at 04/03/2015 12:16 PM Narrative 04/03/2015 12:16 PM EST EXAMINATION: PET/CT STANDARD (SKULL BASE TO MID THIGH) CLINICAL HISTORY: restage lymphoma after transplant TECHNIQUE: Procedure: Following IV injection of 76-axeyus-5-deoxyglucose (FDG) a standard uptake of approximately 60 [...] transplant TECHNIQUE: Procedure: Following IV injection of 14-hsxcwa-8-deoxyglucose(FDG) a standard uptake of approximately 60 minutes, [...] Thank you for referring this patient to [facility]. I have personally reviewed the image(s) and the residents interpretationand agree with the findings, Lazaro Thompson at 04/03/2015 12:16 PM Kimberly Mondragon MD IMG PET ORDERABL ES documented in this encounter Visit Diagnoses Diagnosis Status post autologous bone marrow transplant Bone marrow replaced by transplant DLBCL (diffuse large B cell lymphoma) Other malignant lymphomas, unspecified site, extranodal and solid organ sites Stem cell donor Examination of participant in clinical trial Status post autologous bone marrow transplant Bone marrow replaced by transplant DLBCL (diffuse large B cell lymphoma) Other malignant lymphomas, unspecified site, extranodal and solid organ sites Stem cell donor Examination of participant in clinical trial documented in this encounter Care Teams Textbook Associate Relationship Specialty Start Date End Date Belén Griffin MD [address] [place] [address] PCP - General Family Medicine 03/05/15 05/06/15 documented as of this encounter
--- OUTSIDE RECORDS SUMMARY | 2023-10-28 00:44 | XMS_ITS | Encounter Summary ---
Author Organization [facility] Address [facility] [place] [address] Care Team Providers Care Oleomargarine Maker Name Role Phone Maine Dunn Primary Care Provider [phone] Reason for Visit * Reason Comments Lymphoma hydration Encounter Details Date Type Department Care Team (Late st Contact Info) Description 01/17/2015 1:30 PM EST Infusion Hematology Oncology at [address] [phone] Lymphoma Social History Tobacco Use Types Packs/Day [...] Sign Reading Time Taken Comments Blood Pressure 122/68 01/17/2015 12:50 PM EST Pulse 100 01/17/2015 12:50 PM EST Temperature 36.8 ??C (98.2 ??F) 01/17/2015 12:[address] Respiratory Rate 16 01/17/2015 12:50 PM EST Oxygen Saturation 99% 01/17/2015 12:50 PM EST Inhaled Oxygen Concentration - - Weight 64 kg (141 lb) 01/17/2015 12:50 PM EST Height 158.3 cm (5' 2.32) 01/17/2015 12:[address] Body Mass Index 25.52 01/17/2015 12:50 PM EST documented in this encounter Progress Notes * Carrie Rodriguez - 01/17/2015 1:01 PM EST INFUSION THERAPY ADMINISTRATION NOTES DIAGNOSIS: Non-Hodgkin's Lymphoma s/p Auto stem cell transplant REASON FOR VISIT: Hydration SUBJECTIVE Myriam is feeling much better than last week. Her appetite has improved, she is still not taking in enough fluids, but she says she is taking in more than last week. She denies pain. She does tend to have a little nausea in the middle of the night, for which her anti-emetics have been effective. Shetook one stool softener last night and has moved her bowels today. She is still very fatigued, but thinks it is improving as she was able to drive herself her for treatment today. OBJECTIVE 122/68 100 HR 99% of RA RR 18 36.8 IV ACCESS: Right mediport, +BR, flushed with 20cc NS & 500 units Heparin REACTIONS (DESCRIPTION, TIME, INTERVENTION AND EFFECTIVENESS) none ASSESSMENT Myriam was awake, alert and tolerated treatment well. PLAN Return to clinic per routine, as scheduled. documented in this encounter Plan of Treatment Upcoming Encounters Date Type Department Care Team (Late st Contact Info) Description 12/07/2023 12:00 PM EDT Office Visit Dermatology at [facility] [address] [place] [address] Juan F Chappell MD [facility] DR [place] [address] documented as of this encounter Visit Diagnoses Diagnosis Lymphoma Other malignant lymphomas, unspecified site, extranodal and solid organ sites documented in this encounter Administered Medications Inactive Administered Medications - up to 3 most recent administrations Medication Order MAR Action Action Date Dose Rate Site sodium chloride 0.9% infusion 1,000 mL, at 500 mL/hr, Intravenous, ONCE, 1 dose, On Tue01/17/15 at 1330 New Bag 01/17/2015 12:50 PM EST 1,000 mLs 500 mL/hr documented in this encounter Care Teams Oleomargarine Maker Relationship Specialty Start Date End Date Maine Dunn PA PCP - General 04/08/14 02/13/15 documented as of this encounter
--- OUTSIDE RECORDS SUMMARY | 2023-10-28 00:44 | XMS_ITS | Encounter Summary ---
Author Organization [facility] [place] [address] Care Team Providers Care Streetcar Repairer Name Role Phone Maine Dunn Primary Care Provider [phone] Reason for Visit * Reason Comments Lymphoma Encounter Details Date Type Department Care Team (Latest Contact Info) Description 01/07/2015 8:54 AM EST - 01/07/2015 9:12 AM EST Hospital Encounter [place] [id number] Status post autologous bone marrow transplant; Lymphoma Discharge Disposition: Home Social History Tobacco Use Types Packs/Day Years Used Date Smoking Tobacco: Never Smokeless Tobacco: Never Alcohol Use Standard Drinks/Week Comments Yes 2 (1 standard drink = 0.6 oz pur e alcohol) Sex and Gender Information Value Date Recorded Sex Assigned at Not on file Gender Identity Not on file Sexual Orientation Not on file documented as of this encounter Discharge Instructions * Patient Instructions* Merlene Macias, RN - 01/07/2015 10:53 AM EST Results for LUIS FERNANDO VIVAS ( ) as of 01/07/2015 10:52 Ref. Range 01/07/2015 09:28 WBC Latest Range: 4.0-10.0 x10(3)/mcL 12.8 (H) RBC Latest Range: 3.93-5.22 x10(6)/mcL 3.06 (L) Hemoglobin Latest Range: 11.2-15.7 gm/dL 9.7 (L) Hematocrit Latest Range: 34.0-45.0 % 27.7 (L) MCV Latest Range: 79.0-94.0 fL 90.5 MCH Latest Range: 26.6-32.2 pg 31.7 MCHC Latest Range: 32.0-36.5 gm/dL 35.0 RDWSD Latest Range: 35.0-46.0 fL 50.1 (H) RDWCV Latest Range: 10.9-14.4 % 15.4 (H) Platelets Latest Range: 145-370 x10(3)/mcL 53 (L) MPV Latest Range: 9.0-12.0 fL 11.0 Neutr Abs (ANC) Latest Range: 1.50-6.30 x10(3)/mcL 7.91 (H) Neutrophil % Latest Units: % 60 Band % Latest Units: % 2 Lymphocyte % Latest Units: % 3 Monocyte % Latest Units: % 20 Metamyelo % Latest Units: % 1 Myelocyte % Latest Units: % 10 Promyelocyte % Latest Units: % 4 Neutrophil Abs Latest Range: 1.5-6.3 x10(3)/mcL 7.6 (H) Band Abs Latest Range: 0.2-0.6 x10(3)/mcL 0.3 Lymphocyte Abs Latest Range: 1.0-3.6 x10(3)/mcL 0.4 (L) Monocyte Abs Latest Range: 0.2-1.0 x10(3)/mcL 2.6 (H) Metamyelo Abs Latest Range: 0.0-0.0 x10(3)/mcL 0.1 (H) Myelocyte Abs Latest Range: 0.0-0.0 x10(3)/mcL 1.3 (H) Promyelo Abs Latest Range: 0.0-0.0 x10(3)/mcL 0.5 (H) Tot Diff Cell Ct No range found 100 Plat Estimate No range found Decreased RBC Morphology No range found Abnormal Ovalocytes Latest Units: /HPF 1-5 Toxic Granulation No range found Present Dohle Bodies No range found Present Sodium Latest Range: 135-145 mmol/L 140 Potassium Latest Range: 3.5-5.0 mmol/L 3.7 Chloride Latest Range: 98-107 mmol/L 98 CO2 Latest Range: 22-31 mmol/L 27 Anion Gap Latest Range: 5-15 mmol/L 15 BUN Latest Range: 8-18 mg/dL 11 Creatinine Latest Range: 0.70-1.20 mg/dL 1.03 Estimated GFR Latest Range: >=60 54 (L) Glucose Lvl No range found 114 Calcium Latest Range: 8.5-10.5 mg/dL 10.2 Magnesium Latest Range: 0.69-1.07 mmol/L 0.73 Total Protein Latest Range: 6.1-8.0 gm/dL 7.0 Albumin Latest Range: 3.2-5.2 gm/dL 4.2 Total Bilirubin Latest Range: 0.2-1.3 mg/dL 0.4 Bili, Direct Latest Range: 0.0-0.3 mg/dL 0.1 Alk Phos Latest Range: 40-104 unit/L 154 (H) AST Latest Range: 0-30 unit/L 25 ALT Latest Range: 0-30 unit/L 21 ABORh Type No range found B Pos AB Screen Interp No range found Negative Expires at 2359 on: No range found 01/10/2015 documented in this encounter Medications at Time of Discharge Medication Sig Dispensed Refills Start Date End Date hydrocortisone 1 % Cream Apply topically 4 times daily. Preparation-H. To hemorrhoids for discomfort 30 g 0 01/03/2015 10/02/2015 escitalopram oxalate (LEXAPRO) 10 mg Tablet Take 1 tablet by mouth daily. 30 tablet 12 01/03/2015 12/25/2015 zolpidem (AMBIEN) 5 mg Tablet Take 1 tablet by mouth nightly as needed for Sleep. 10 tablet 0 01/03/2015 01/14/2015 acyclovir (ZOVIRAX) 400 mg Tablet Take 2 [...] for Nausea. 20 tablet 3 11/04/2014 05/07/2015 LORazepam (ATIVAN) 0.5 mg TabletIndications:Lymp fawn,DLBCL (diffuse large B cell lymphoma),Stem cell donor,Examination of participant in clinical trial Take 1 tablet by mouth every 6 hours as needed for Anxiety. 30 tablet 2 11/04/2014 01/13/2015 prochlorperazine (COMPAZINE) 10 mg Tablet Take 1 tablet by mouth every 6 hours as needed for Nausea. 30 tablet 1 10/25/2014 05/07/2015 docusate sodium (COLACE) 100 mg Capsule Take 100 mg by mouth 2 times daily. 10/02/2015 senna (SENOKOT) 8.6 mg Tablet Take 1 tablet by mouth daily. 12/25/2015 [place]-3 Fatty Acids-Vitamin E (FISH OIL) 1,000 mg CapsuleIndications:Lym phoma Take by mouth. 01/29/2015 Calcium 500 mg TabletIndications:Lymp fawn Take by mouth. 01/29/2015 Cholecalciferol, Vitamin D3, (VITAMIN D-3) 2,000 unit CapsuleIndications:Lym phoma Take 1,000 Units by mouth. 01/29/2015 documented as of this encounter Progress Notes * Merlene Macias RN - 01/07/2015 10:26 AM EST Patient Name: Luis Fernando Vivas Patient Age: 64 y.o. Birthdate: 1950 Admit date: 01/07/2015 Attending Physician: No att. providers found TIME TREATMENT STARTED: 1030 TIME TREATMENT ENDED: 1255 Luis Fernando Vivas, 64 y.o. female with diagnosis of Lymphoma s/p transplane is here for NS. S: Pt. offers no complaints at this time. O: Chemotherapy orders independently verified for correct drug name, route and dosage per Merlene Macias RN and onsite pharmacist. Port accessed in room 8 NS one liter over 2 hours per Thelma Burnett K+ 3.7 Mag 0.73 REACTIONS (DESCRIPTION, TIME, INTERVENTION AND EFFECTIVENESS) none A: Pt. Tolerated treatment well. Luis Fernando Vivas confirms that all questions and issues have been addressed. P: Return to clinic per routine. documented in this encounter Plan of Treatment Upcoming Encounters Date Type Department Care Team (Late st Contact Info) Description 12/07/2023 12:00 PM EDT Office Visit Dermatology at [facility] [address] [place] [address] Juan F Chappell MD 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 Lymphoma Other malignant lymphomas, unspecified site, extranodal and solid organ sites documented in this encounter Administered Medications Inactive Administered Medications - up to 3 most recent administrations Medication Order MAR Action Action Date Dose Rate Site sodium chloride 0.9% infusion 500 mL/hr, Intravenous, CONTINUOUS, Starting on Tue01/07/15 at 1100, Until Tue01/07/15 at 1259 New Bag 01/07/2015 10:51 AM EST 500 mL/hr 500 mL/hr documented in this encounter Care Teams Streetcar Repairer Relationship Specialty Start Date End Date Maine Dunn PA PCP - General 04/08/14 02/13/15 documented as of this encounter
--- OUTSIDE RECORDS SUMMARY | 2023-10-28 00:44 | XMS_ITS | Encounter Summary ---
Author Organization [facility] Address [facility] [place] [address] Care Team Providers Care Chronic Manager Name Role Phone Maine Dunn Primary Care Provider [phone] Reason for Visit * Reason Comments Follow-up Encounter Details Date Type Department Care Team (Late st Contact Info) Description 01/14/2015 10:00 AM EST Office Visit [place] [address] Kimberly Burnett CENTRAL SUPPLY NURSE [facility] HEMATOLOGY [place] [address] Lymphoma; Status post autologous bone marrow transplant Social [...] Sign Reading Time Taken Comments Blood Pressure 121/62 01/14/2015 9:48 AM EST Pulse 97 01/14/2015 9:48 AM EST Temperature 36.8 ??C (98.2 ??F) 01/14/2015 9:48 AM ES T Respiratory Rate 16 01/14/2015 9:48 AM EST Oxygen Saturation 100% 01/14/2015 9:48 AM EST Inhaled Oxygen Concentration - - Weight 62 kg (136 lb 9.6 oz) 01/14/2015 9:48 AM EST Height 158.3 cm (5' 2.32) 01/14/2015 9:48 AM ES T Body Mass Index 24.73 01/14/2015 9:48 AM EST documented in this encounter Progress Notes * Kimberly Burnett, CENTRAL SUPPLY NURSE - 01/14/2015 8:54 AM EST [facility]ematology[facility] [place] [address] FOLLOW-UP PATIENT EVALUATION PROBLEM LIST: 1. Diffuse [...] was not informative according to the Bassem bag machine adjuster, but the strong BCL2 expression in the absence of MUM1 suggests a germinal center origin via the Muris bag machine adjuster. Lymphoma TB discussion 10/01/14 Recommendations for salvage chemotherapy and autologous stem cell transplant. C#1 RDP 10/09/14 With stem cell collection C#2 RDHAP [...] with Primary Refractory DLBCL. She is Day +22 s/p an Autologous peripheral blood stem cell transplant. She tolerated the transplant reasonably well(see specifics above). She is feeling quite anxious about the whole process, and says she doesn't really remember. Since last week, Myriam has been eating and drinking better. Quantity has also improved. Tolerating eggs, peanut butter and yogurt. She is hungry and thirsty. She thinks she is getting in about 1L fluids/day. No mouth sores. No vomiting. A little bit of nausea- has taken either the Zofran or Compazine, which works better. She is back at her home since this past Tuesday. Not sleeping as much during the day. She alters rest with brief periods of activity. Sleeping well at night. Using Ativan at night. She does have a loton her mind, with a lot of paperwork to be completed for social security. No fevers or focal s/s of infection. Denies ARVIZU's, lightheadedness or dizziness. Breathing remains stable, even walking up stairs. No chest pain or pressure. Still has emorrhoids but not as bad, as she is not moving her bowels as often. Not necessarily diarrhea. Has not tried driving yet. Anxiety is well controlled. MEDICATIONS: Prior to Admission medications Medication Sig Start Date End Date Taking? Authorizing Provider hydrocortisone 1 % Cream Apply topically 4 times daily. Preparation-H. To hemorrhoids for discomfort 01/03/15 Yes Zayra Leach APRN escitalopram oxalate (LEXAPRO) 10 mg Tablet Take 1 tablet by mouth daily. 01/03/15 Yes Zayra Leach APRN acyclovir (ZOVIRAX) 400 mg Tablet Take 2 tablets by mouth 2 times daily. 01/03/15 Yes Zayra Leach APRN magnesium oxide (MAG-OX) 400 mg Tablet Take 1 tablet by mouth daily. 11/06/14 Yes Zayra Leach APRN LORazepam (ATIVAN) 0.5 mg Tablet Take 1 tablet by mouth every 6 hours as needed for Anxiety. 11/04/14 Yes Kimberly Mondragon MD senna (SENOKOT) 8.6 mg Tablet Take 1 tablet by mouth daily. Yes PROVIDER, HISTORICAL zolpidem (AMBIEN) 5 mg Tablet Take 1 tablet by mouth nightly as needed for Sleep. 01/03/15 Zayra Leach APRN ondansetron (ZOFRAN) 8 mg Tablet Take 1 tablet by mouth every 8 hours as needed for Nausea. 11/04/14Kimberly Mondragon MD prochlorperazine (COMPAZINE) 10 mg Tablet Take 1 tablet by mouth every 6 hours as needed for Nausea. 10/25/14 Elie Garce MD docusate sodium (COLACE) 100 mg Capsule Take 100 mg by mouth 2 times daily. PROVIDER, HISTORICAL [place]-3 Fatty Acids-Vitamin E (FISH OIL) 1,000 mg Capsule Take by mouth. PROVIDER, HISTORICAL Calcium 500 mg Tablet Take by mouth. PROVIDER, HISTORICAL Cholecalciferol, Vitamin D3, (VITAMIN D-3) 2,000 unit Capsule Take 1,000 Units by mouth. PROVIDER, HISTORICAL ALLERGIES: Allergies Allergen Reactions ??? Levofloxacin Other (See Comments) tendonitis ??? Tegaderm [Transparent Dressings] Other (See Comments) Unsure if actual allergy, please try [id number] Skin tears/rawness ??? Vancomycin Itching and Dermatitis [...] No Cough/SOB/chest pain: No Appetite: Improved Nausea/vomiting/dyspepsia: Nausea Diarrhea/constipation: No Urinary pain, burning, incontinence: No Skin rashes or petechiae: No Peripheral edema: None Bruising/bleeding/melena: No Pain: No Other: No PHYSICAL EXAM: Vitals Office Visit from 01/14/2015 in [facility] Weight - Scale 61.961 kg (136 lb 9.6 oz) Height 158.3 cm (5' 2.32) BSA (Calculated - sq m) 1.65 sq meters BMI (Calculated) 24.8 Temp 36.8 ??C (98.2 ??F) Temp Source Temporal Heart Rate 97 Heart Rate Source Right Resp 16 BP 121/62 mmHg BP Location Left arm Patient Position Sitting SpO2 100 % Karnofsky Score 80 GENERAL: Myriam Vivas is in no acute distress. Accompanied by her significant other. HEENT: Oral mucosa is clear. Neck: Supple Lungs: Clear breath sounds bilaterally Heart: Regular rate and rhythm without murmur Abdomen: Soft, nontender and no organomegaly Skin: Left chest with reduced erythema at site of soto removal. No drainage. Palms are peeling. Extremity: shows no edema Muskuloskeletal: Walks slowly and deliberately. Neuro: A+O x 3 Psychiatric: Normal LABORATORY STUDIES: Lab Results Component Value Date WBC 3.7* 01/14/2015 WBC 12.8* 01/07/2015 RBC 2.63* 01/14/2015 RBC 3.06* 01/07/2015 HGB 8.1* 01/14/2015 HGB 9.7* 01/07/2015 HCT 24.0* 01/14/2015 HCT 27.7* 01/07/2015 MCV 91.3 01/14/2015 MCV 90.5 01/07/2015 MCH 30.8 01/14/2015 MCH 31.7 01/07/2015 MCHC 33.8 01/14/2015 MCHC 35.0 01/07/2015 PLATELET 144* 01/14/2015 PLATELET 53* 01/07/2015 RDWCV 15.8* 01/14/2015 RDWCV 15.4* 01/07/2015 NA 141 01/14/2015 NA 140 01/07/2015 K 3.7 01/14/2015 K 3.7 01/07/2015 CL 99 01/14/2015 CL 98 01/07/2015 CO2 29 01/14/2015 CO2 27 01/07/2015 BUN 14 01/14/2015 BUN 11 01/07/2015 CREATININE 0.92 01/14/2015 CREATININE 1.03 01/07/2015 GLUCOSE 95 01/14/2015 GLUCOSE 114 01/07/2015 CALCIUM 9.7 01/14/2015 CALCIUM 10.2 01/07/2015 LDH 278* 01/14/2015 LDH 203 12/17/2014 RADIOLOGY STUDIES: ASSESSMENT: Myriam Vivas is a 64 y.o. female with Primary Refractory DLBCL. She recently underwent an Autologous pb stem cell transplant. 1. /BMT - DAY + 22 - Conditioning regimen: CBV - Day 0 = 12/23/14 - Complications included n/v/d. Low grade fevers thought to be d/t blood count recovery; hemoirrhoids, anorexia - minimal transfusion support - Decreased WBC today- manifestation of no longer being on growth factor support. More anemic, and will watch closely. Probably related to bone marrow still recovering. - Plts are great! - NO transfusions needed today. - Will recheck a cbc/diff on , 01/16, locally at [facility]. 2. ID - No focal s/s of infection. No infectious complications while hospitalized. - At time of discharge, both Keflex and Fluc were discontinued, given the absence of infection and count recovery - Remain on Acyclovir 800mg po BID for One year post transplant. - At Day + 30, if platelet count remains above 20k, untransfused, will begin PJP prophylaxis with Bactrim DS 1 tablet on Aiicrjf-Koivfpyfoq-Kdmhtxz and continue for six months post transplant. 3. FEN/Renal - Improved appetite- She met with the local night shift supervisor last week. - She is hungry and has an appetite. - Reviewed better tolerance by taking in small amounts frequently. - Bun/Cre normal. - D/C oral magnesium supplement, given normal lab value and increased appetite. - NO Hydration today: Will arrange for laboratory studies( cbc, diff) and Hydration support (NS 1Liter IV over 2 hours) at [facility] for , 01/16. 4. Cardio/Pulmonary -No issues 5. GI/ Hepatic - Elevated LDH. Doubtful it is lymphoma, given how soon out from transplant she is. May be related to bone marrow recovery. Will follow. - Minimal nausea. Relieved with current antiemetic regimen. 7. Psychosocial - Anxiety is less this week. She admits to being a bit overwhelmed with the amount of paperwork sheneeds to complete for social security. We discussed taking on a small amount of work at a time, so that the anxiety doesn't become overwhelming. - Reviewed the importance of daily activity, starting out with very small increments, ie. Walking 5minutes/day and building up slowly. 6. Disposition - Living back at home. Great support from friends and Carlos. IMMEDIATE PLANS: - No hydration today. - Will arrange for Hydration: NS 1Liter IV over 2 hours for , January 16 and labs(cbc, diff) also. To be done at . - No transfusion support today. - RTC in One week with laboratory studies(access room), appt with me and infusion time for additional hydration support. - Continue Acyclovir BID. -F/U Magnesium level today. If it remains normal, will discontinue oral supplement. Results for MYRIAM VIVAS ( ) as of 01/14/2015 16:38 Ref. Range 01/07/2015 09:28 01/14/2015 09:30 Magnesium Latest Range: 0.69-1.07 mmol/L 0.73 0.77 Kimberly Burnett, MSN, CENTRAL SUPPLY NURSE Nurse Practitioner Section of Hematology/Oncology [facility] Office phone: CC: Izzy Hinds MD documented in this encounter Plan of Treatment Upcoming Encounters Date Type Department Care Team (Late st Contact Info) Description 12/07/2023 12:00 PM EDT Office Visit Dermatology at [address] [address] Juan F Chappell MD [facility] DR RANDEE [place] [address] documented as of this encounter Results * (ABNORMAL) Magnesium (01/23/2015 10:21 AM EST) Magnesium 0.68(L) 0.69 - 1.07 mmol/L GIBRAN COREAS Blood specimen (specimen) 01/23/2015 10:21 AM EST 01/23/2015 10:21 AM EST Narrative Resulting Agency Comment Spec In Lab Kimberly Mondragon MD CHEMISTRY ORDERA BLES GIBRAN COREAS documented in this encounter Visit Diagnoses Diagnosis Lymphoma Other malignant lymphomas, unspecified site, extranodal and solid organ sites Status post autologous bone marrow transplant Bone marrow replaced by transplant documented in this encounter Care Teams Chronic Manager Relationship Specialty Start Date End Date Maine Dunn PA PCP - General 04/08/14 02/13/15 documented as of this encounter
--- OUTSIDE RECORDS SUMMARY | 2023-10-28 00:44 | XMS_ITS | Encounter Summary ---
Author Organization [facility] [place] [address] Care Team Providers Care Hand Silvering Supervisor Name Role Phone Maine Dunn Primary Care Provider [phone] Encounter Details Date Type Department Care Team (Latest Contact Info) Description 01/14/2015 9:09 AM EST - 01/14/2015 11:59 PM EST Hospital Encounter Hematology [place] [id number] Lymphoma Discharge Disposition: Home Social History Tobacco [...] Sig Dispensed Refills Start Date End Date LORazepam (ATIVAN) 0.5 mg TabletIndications:Lymp fawn,DLBCL (diffuse large B cell lymphoma),Stem cell donor,Examination of participant in clinical trial Take 1 tablet by mouth every 6 hours as needed for Anxiety. 30 tablet 2 01/13/2015 01/23/2015 hydrocortisone 1 % Cream Apply topically 4 [...] Take 1 tablet by mouth daily. 12/25/2015 [place]-3 Fatty Acids-Vitamin E (FISH OIL) 1,000 mg CapsuleIndications:Lym phoma Take by mouth. 01/29/2015 Calcium 500 mg TabletIndications:Lymp fawn Take by mouth. 01/29/2015 Cholecalciferol, Vitamin D3, (VITAMIN D-3) 2,000 unit CapsuleIndications:Lym phoma Take 1,000 Units by mouth. 01/29/2015 documented as of this encounter Progress Notes * Blank Alexander RN - 01/14/2015 9:39 AM EST Patient Name: Myriam Vivas Patient Age: 64 y.o. Birthdate: 1950 Admit date: 01/14/2015 Attending Physician: No att. providers found Access visit. See MAR and/or flowsheet. documented in this encounter Plan of Treatment Upcoming Encounters Date Type Department Care Team (Late st Contact Info) Description 12/07/2023 12:00 PM EDT Office Visit Dermatology at [facility] [address] [place] [address] Juan F Chappell MD [facility] DR RANDEE [place] [address] documented as of this encounter Procedures Procedure Name Priority Date/Time Associated Diagnosis Comments NUCLEATED RED BLOOD CELLS STAT 01/14/2015 9:30 AM EST HEMOGRAM STAT 01/14/2015 9:30 AM EST Lymphoma DIFFERENTIAL, AUTOMATED STAT 01/14/2015 9:30 AM EST Lymphoma ABO/RH TYPING STAT 01/14/2015 9:30 AM EST Lymphoma CBC (WITH DIFF) STAT 01/14/2015 9:30 AM EST Lymphoma ANTIBODY SCREEN STAT 01/14/2015 9:30 AM EST Lymphoma TYPE AND SCREEN ([facility]/MARTHA) STAT 01/14/2015 9:30 AM EST Lymphoma MAGNESIUM STAT 01/14/2015 9:30 AM EST LACTATE DEHYDROGENASE STAT 01/14/2015 9:30 AM EST Lymphoma COMPREHENSIVE METABOLIC PANEL STAT 01/14/2015 9:30 AM EST Lymphoma documented in this encounter Results * Magnesium (01/14/2015 9:30 AM EST) Pathologist [facility] Magnesium 0.77 0.69 - 1.07 mmol/L [facility] Blood specimen (specimen) Venous Draw / Unknown 01/14/2015 9:30 AM EST 01/14/2015 9:45 AM EST Narrative Resulting Agency Comment Spec In Lab Kimberly Mondragon MD CHEMISTRY ORDERA BLES [facility] * Nucleated Red Blood Cells (01/14/2015 9:30 AM EST) Pathologist [facility] NRBC% auto 0.0 % CERNER MILLENNIUM NRBC Absolute 0.000 0.000 - 0.012 x10(3)/mcL GIBRAN BUCHANANENNIUM Blood specimen (specimen) 01/14/2015 9:30 AM EST 01/14/2015 9:42 AM EST Narrative Resulting Agency Comment Spec In Lab Kimberly Mondragon MD HEMATOLOGY ORDER AYO Performing Organization Address [facility] Co de Phone Number GIBRAN GEEIUM * Antibody screen (01/14/2015 9:30 AM EST) Ab Screen Interp Negative GIBRAN GEEIUM Expires at [id number] on: 01/17/2015 GIBRAN GEEIUM Blood specimen (specimen) 01/14/2015 9:30 AM EST 01/14/2015 9:43 AM EST Narrative Resulting Agency Comment Spec In Lab Kimberly Mondragon MD BLOOD BANK LAB O RDERABLES Performing Organization Address [facility] Co de Phone Number GIBRAN GEEIUM * ABO/Rh Typing (01/14/2015 9:30 AM EST) ABORH Type B Pos GIBRAN GEEIUM Blood specimen (specimen) 01/14/2015 9:30 AM EST 01/14/2015 9:43 AM EST Narrative Resulting Agency Comment Spec In Lab Kimberly Mondragon MD BLOOD BANK LAB O RDERABLES Performing Organization Address [facility] de Phone Number GIBRAN GEEIUM * (ABNORMAL) Differential, Automated (01/14/2015 9:30 AM EST) Neutrophil % 54.4 % CERNER MILLENNIUM Neutrophil Absolute 2.03 1.50 - 6.30 x10(3)/mc L CERNER MILLENNIUM Lymph % 15.8 % CERNER MILLENNIUM Lymphocytes Abs 0.6(L) 1.0 - 3.6 x10(3)/mc L CERNER MILLENNIUM Monocyte % 25.1 % CERNER MILLENNIUM Monocyte Abs 0.9 0.2 - 1.0 x10(3)/mc L CERNER MILLENNIUM Eos % 1.3 % CERNER MILLENNIUM Eosinophils Abs 0.0 0.0 - 0.5 x10(3)/mc L CERNER MILLENNIUM Basophil % 2.9 % CERNER MILLENNIUM Baso Absolute 0.1 0.0 - 0.2 x10(3)/mc L CERNER MILLENNIUM Immature Gran % 0.50 % CERN ER MILLENNIUM Comment: Immature granulocytes(IG's)percentage and absolute count will include metamyelocytes, myelocytes, and promyelocytes. Blood smears from CBCs yielding IG's will be scanned manually for concordance. If this scan disagrees with the automated IG or if promyelocytes are noted, a manual differential will be performed. Immature Gran Absolute 0.02 0.00 - 0.05 x10(3)/mc L CERNER MILLENNIUM Blood specimen (specimen) 01/14/2015 9:30 AM EST 01/14/2015 9:42 AM EST Narrative Resulting Agency Comment Spec In Lab Kimberly Mondragon MD HEMATOLOGY ORDER AYO CERNER MILLENNIUM * (ABNORMAL) Hemogram (01/14/2015 9:30 AM EST) White Blood Cell 3.7(L) 4.0 - 10.0 x10(3)/mc L CERNER MILLENNIUM Red Blood Cell 2.63(L) 3.93 - 5.22 x10(6)/mc L CERNER MILLENNIUM Hemoglobin 8.1(L) 11.2 - 15.7 gm/dL CERNER MILLENNIUM Hematocrit 24.0(L) 34.0 - 45.0 % CERNER MILLENNIUM Mean Cell Volume 91.3 79.0 - 94.0 fL CERNER MILLENNIUM Mean Cell Hemoglobin 30.8 26.6 - 32.2 pg CERNER MILLENNIUM Mean Cell Hemoglobin Concentration 33.8 32.0 - 36.5 gm/dL CERNER MILLENNIUM Platelet 144(L) 145 - 370 x10(3)/mc L CERNER MILLENNIUM RDW Standard Deviation 49.4(H) 35.0 - 46.0 fL CERNER MILLENNIUM RDW coefficient of variation 15.8(H) 10.9 - 14.4 % CERNER MILLENNIUM Mean Platelet Volume 9.4 9.0 - 12.0 fL CERNER MILLENNIUM Blood specimen (specimen) 01/14/2015 9:30 AM EST 01/14/2015 9:42 AM EST Narrative Resulting Agency Comment Spec In Lab Kimberly Mondragon MD HEMATOLOGY ORDER AYO Performing Organization Address [facility] Co de Phone Number CERNER MILLENNIUM * (ABNORMAL) Lactate Dehydrogenase (01/14/2015 9:30 AM EST) Lactate Dehydrogenase 278(H) 110 - 220 unit/L CERNER MILLENNIUM Blood specimen (specimen) 01/14/2015 9:30 AM EST 01/14/2015 9:42 AM EST Narrative Resulting Agency Comment Spec In Lab Kimberly Mondragon MD CHEMISTRY ORDERA BLES Performing Organization Address [facility] de Phone Number CERNER MILLENNIUM * Comprehensive metabolic panel (non-fasting) (01/14/2015 9:30 AM EST) Glucose 95 65 - 199 mg/dL CERNER MILLENNIUM Comment:Diabetes: >=200 mg/d L plus symptoms Blood Urea Nitrogen 14 8 - 18 mg/dL CERNER MILLENNIUM Creatinine 0.92 0.70 - 1.20 mg/dL CERNER MILLENNIUM Comment: Please note that the pediatric reference intervals supplied above were not validated at [facility] [place]. Results from pediatric patients should be interpreted in conjunction to the patient's age, height and muscle mass. Sodium 141 135 - 145 mmol/L CERNER MILLENNIUM Potassium 3.7 3.5 - 5.0 mmol/L CERNER MILLENNIUM Comment: Please note: ??Patients with WBC >100,000 may have falsely elevated Potassium levels. ??For accurate Potassium quantification in these patients send serum separator tube (gold top) for subsequent determinations. ??Contact the Clinical Chemistry Laboratory if there are any questions. Chloride 99 98 - 107 mmol/L CERNER MILLENNIUM Carbon Dioxide 29 22 - 31 mmol/L CERNER MILLENNIUM Anion Gap 13 5 - 15 mmol/L CERNER MILLENNIUM Calcium 9.7 8.5 - 10.5 mg/dL CERNER MILLENNIUM Protein, Total 6.6 6.1 - 8.0 gm/dL CERNER MILLENNIUM Albumin 4.1 3.2 - 5.2 gm/dL CERNER MILLENNIUM Aspartate Aminotransferase 25 0 - 30 unit/L CERNER MILLENNIUM Alanine Aminotransferase 19 0 - 30 unit/L CERNER MILLENNIUM Alkaline Phosphatase 90 40 - 104 unit/L CERNER MILLENNIUM Bilirubin, [...] the following links into your internet browser. [email or web address] Blood specimen (specimen) 01/14/2015 9:30 AM EST 01/14/2015 9:42 AM EST Narrative Resulting Agency Comment Spec In Lab Kimberly Mondragon MD CHEMISTRY ORDERA BLES [facility] documented in this encounter Visit Diagnoses Diagnosis Lymphoma Other malignant lymphomas, unspecified site, extranodal and solid organ sites documented in this encounter Administered Medications Inactive Administered Medications - up to 3 most recent administrations Medication Order MAR Action Action Date Dose Rate Site sodium chloride 0.9 % flush 20 mL 20 mL, Intravenous, DAILY PRN, Starting on Tue01/14/15 at 0919, Until Tue01/15/15 at 0434, for the accessing and continued maintenance of an Implantable Port device, Routine Given 01/14/2015 9:39 AM EST 20 mLs documented in this encounter Care Teams Hand Silvering Supervisor Relationship Specialty Start Date End Date Maine Dunn PA PCP - General 04/08/14 02/13/15 documented as of this encounter
--- OUTSIDE RECORDS SUMMARY | 2023-10-28 00:44 | XMS_ITS | Encounter Summary ---
Author Organization [facility] Address [facility] [place] [address] Care Team Providers Care Oven Technician Name Role Phone Maine Dunn Primary Care Provider [phone] Reason for Visit * Reason Comments IV Medication Hydration Encounter Details Date Type Department Care Team (Late st Contact Info) Description 01/10/2015 2:00 PM EST Infusion Hematology Oncology at [address] [address] Lymphoma; Status post autologous bone marrow transplant [...] Sign Reading Time Taken Comments Blood Pressure 121/57 01/10/2015 1:59 PM EST Pulse 89 01/10/2015 1:59 PM EST Temperature 36.9 ??C (98.4 ??F) 01/10/2015 1:59 PM ES T Respiratory Rate 16 01/10/2015 1:59 PM EST Oxygen Saturation 98% 01/10/2015 1:59 PM EST Inhaled Oxygen Concentration - - Weight 62.8 kg (138 lb 8 oz) 01/10/2015 1:59 PM EST Height 158.3 cm (5' 2.32) 01/10/2015 1:59 PM ES T Body Mass Index 25.07 01/10/2015 1:59 PM EST documented in this encounter Progress Notes * Brianna Ash RN - 01/10/2015 3:37 PM EST INFUSION THERAPY ADMINISTRATION NOTES DIAGNOSIS: Lymphoma. Recent stem cell transplant REASON FOR VISIT: Hydration SUBJECTIVE: c/o nausea. Takes Zofran and it has been ineffective. Discussed trialing the Compazine Feels weak, tired, nauseous. Can't eat. Discouraged over the weight loss. Has question r/t the stemcell transplant and asked to see Faustina Soto RN. OBJECTIVE: vss. Pale. Discussed concerns with Faustina. Met with brand coordinator. IV ACCESS: R port accessed without difficulty. Flushes easily with good blood return. Hydration initiated per order. After 1 liter of NS over 2 hours the port was flushed with 20 cc of NS and [id number] units by Abel Biswas RN. REACTIONS: Myriam was awake, alert and tolerated treatment well. PLAN: Return to clinic per routine. at 1000 documented in this encounter Plan of Treatment Upcoming Encounters Date Type Department Care Team (Late st Contact Info) Description 12/07/2023 12:00 PM EDT Office Visit Dermatology at [facility] [address] [place] [address] Juan F Chappell MD [facility] DR RANDE[place] [address] documented as of this encounter Visit Diagnoses [...] 500 mL/hr, Intravenous, ONCE, 1 dose, On Tue01/10/15 at 1500 New Bag 01/10/2015 2:10 PM EST 1,000 mLs 500 mL/ hr documented in this encounter Care Teams Oven Technician Relationship Specialty Start Date End Date Maine Dunn PA PCP - General 04/08/14 02/13/15 documented as of this encounter
--- OUTSIDE RECORDS SUMMARY | 2023-10-28 00:44 | XMS_ITS | Encounter Summary ---
Author Organization Formerly [facility] Address [facility] [place] [address] Care Team Providers Care Pet Feeder Name Role Phone Maine Dunn Primary Care Provider [phone] Reason for Visit * Reason Comments Follow-up Encounter Details Date Type Department Care Team (Late st Contact Info) Description 01/23/2015 11:00 AM EST Office Visit [place] [phone] Kimberly Burnett APRN [facility] HEMATOLOGY [place] [address] Lymphoma; DLBCL (diffuse large B cell lymphoma); Stem [...] Sign Reading Time Taken Comments Blood Pressure 128/73 01/23/2015 10:42 AM EST Pulse 94 01/23/2015 10:42 AM EST Temperature 36.2 ??C (97.2 ??F) 01/23/2015 10:[address] Respiratory Rate 18 01/23/2015 10:42 AM EST Oxygen Saturation 100% 01/23/2015 10:42 AM EST Inhaled Oxygen Concentration - - Weight 61.3 kg (135 lb 3.2 oz) 01/23/2015 10:42 AM EST Height 158.3 cm (5' 2.32) 01/23/2015 10:[address] Body Mass Index 24.47 01/23/2015 10:42 AM EST documented in this encounter Progress Notes * Kimberly Burnett, CONSTRUCTION SERVICES TECHNICIAN - 01/23/2015 11:18 AM EST Hematology/[place] [address] FOLLOW-UP PATIENT EVALUATION PROBLEM LIST: 1. Diffuse [...] was not informative according to the Bassem seed pelleter, but the strong BCL2 expression in the absence of MUM1 suggests a germinal center origin via the Muris seed pelleter. Lymphoma TB discussion 10/01/14 Recommendations for salvage chemotherapy and autologous stem cell transplant. C#1 RDHAP 10/09/14 With stem cell collection C#2 RDHAP 11/04/14 PET scan negative! 11/25/14 ! ADMIT on 12/17/14 to [facility] for Autologous Peripheral BlN/ood Stem Cell Transplant [...] with Primary Refractory DLBCL. She is Day +31 s/p an Autologous peripheral blood stem cell transplant. She tolerated the transplant reasonably well(see specifics above). She is feeling quite anxious about the whole process, and says she doesn't really remember. More energy and walking outdoors a little bit. She is driving locally to do errands. Decorated her apartment last night. Dealing with a bit of depression. Scratchy throat. No fevers. Has a decent appetite Down to one nap/day. Bowels are fairly normal. One episode of nausea/week. MEDICATIONS: Prior to Admission medications Medication Sig [...] hours as needed for Nausea. 10/25/14 Elie Grace MD docusate sodium (COLACE) 100 mg Capsule Take 100 mg by mouth 2 times daily. PROVIDER, HISTORICAL Dunlow-3 Fatty Acids-Vitamin E (FISH OIL) 1,000 mg Capsule Take by mouth. PROVIDER, HISTORICAL Calcium 500 mg Tablet Take by mouth. PROVIDER, HISTORICAL Cholecalciferol, Vitamin D3, (VITAMIN D-3) 2,000 unit Capsule Take 1,000 Units by mouth. PROVIDER, HISTORICAL ALLERGIES: Allergies Allergen Reactions ??? Levofloxacin Other (See Comments) tendonitis ??? Tegaderm [Transparent Dressings] Other (See Comments) Unsure if actual allergy, please try [id number] Skin tears/rawness ??? Vancomycin Itching and Dermatitis [...] anxiety PHYSICAL EXAM: Vitals Office Visit from 01/23/2015 in [facility] Weight - Scale 61.326 kg (135 lb 3.2 oz) Height 158.3 cm (5' 2.32) BSA (Calculated - sq m) 1.64 sq meters BMI (Calculated) 24.5 Temp 36.2 ??C (97.2 ??F) Temp Source Temporal Heart Rate 94 Heart Rate Source Left Resp 18 BP 128/73 mmHg BP Location Right arm Patient Position Sitting SpO2 100 % [...] 01/14/2015 LDH 223* 01/23/2015 LDH 278* 01/14/2015 RADIOLOGY STUDIES: ASSESSMENT: Myriam Vivas is a 64 y.o. female with Primary Refractory DLBCL. She recently underwent an Autologous pb stem cell transplant. 1. /BMT - DAY + 31 - Conditioning regimen: CBV - Day 0 [...] BID for One year post transplant. - Beginning this weekend, Myriam will start PJP prophylaxis with Bactrim DS 1 tablet BID on Saturdays and Sundays, and continue for six months post transplant. 3. FEN/Renal - Improved appetite- She met with the local stockbroker last week. - She is hungry and has an appetite. - Reviewed better tolerance by taking in small amounts frequently. - Bun/Cre normal. - D/C oral magnesium supplement, given normal lab value and increased appetite. - NO Hydration today: Will arrange for laboratory studies( cbc, diff) and Hydration support (NS 1Liter IV over [address] hours) at [facility] for , 01/16. 4. Cardio/Pulmonary -No issues [...] cut back on her daily use of Ativan - Reviewed the importance of daily activity, starting out with very small increments, ie. Walking 5minutes/day and building up slowly. 6. Disposition - Living back at home. Great support from friends and Carlos. IMMEDIATE PLANS: - No hydration today. - Start Bactrim DS 1 tablet BID on Saturdays and Sundays. - Continue Acyclovir BID. - Next appt with Dr. Mondragon on 01/29 at [facility]. Kimberly Burnett, MSN, CONSTRUCTION SERVICES TECHNICIAN Nurse Practitioner Section of Hematology/Oncology [facility] Office phone: CC: Izzy Hinds MD documented in this encounter Plan of Treatment Upcoming Encounters Date Type Department Care Team (Late st Contact Info) Description 12/07/2023 12:00 PM EDT Office Visit Dermatology at [facility] [address] [place] [address] Juan F Chappell MD [facility] DR RANDEE T[place]OC[place] [address] documented as of this encounter Visit Diagnoses Diagnosis Lymphoma Other malignant lymphomas, unspecified site, extranodal and solid organ sites DLBCL (diffuse large B cell lymphoma) Other malignant lymphomas, unspecified site, extranodal and solid organ sites Stem cell donor Examination of participant in clinical trial documented in this encounter Care Teams Pet Feeder Relationship Specialty Start Date End Date aMine Dunn PA PCP - General 04/08/14 02/13/15 documented as of this encounter
--- OUTSIDE RECORDS SUMMARY | 2023-10-28 00:44 | XMS_ITS | Encounter Summary ---
Author Organization [facility] [place] [address] Care Team Providers Care Impression Printer Name Role Phone Maine Dunn Primary Care Provider [phone] Encounter Details Date Type Department Care Team (Latest Contact Info) Description 01/07/2015 9:13 AM EST - 01/07/2015 11:59 PM EST Hospital Encounter Hematology [place] [address] Lymphoma Discharge Disposition: Home Social History Tobacco [...] Take 1 tablet by mouth daily. 12/25/2015 [place]vel[place]-3 Fatty Acids-Vitamin E (FISH OIL) 1,000 mg CapsuleIndications:Lym phoma Take by mouth. 01/29/2015 Calcium 500 mg TabletIndications:Lymp fawn Take by mouth. 01/29/2015 Cholecalciferol, Vitamin D3, (VITAMIN D-3) 2,000 unit CapsuleIndications:Lym phoma Take 1,000 Units by mouth. 01/29/2015 documented as of this encounter Plan of Treatment Upcoming Encounters Date Type Department Care Team (Late st Contact Info) Description 12/07/2023 12:00 PM EDT Office Visit Dermatology at [facility] [address] [place] [phone] Juan F Chappell MD [facility] DR RANDEE [place] [address] Scheduled Orders Name Type Priority Associated Diagnoses Orde r Schedule Comprehensive metabolic panel (non-fasting) Lab STAT Lymphoma 1 Occurrences starting 01/07/2015 until 01/07/2015 Lactate Dehydrogenase Lab STAT Lymphoma 1 Occurrences starting 01/07/2015 until 01/07/2015 documented as of this encounter Procedures Procedure Name Priority Date/Time Associated Diagnosis Comments DIFFERENTIAL, MANUAL STAT 01/07/2015 9:28 AM EST HEMOGRAM STAT 01/07/2015 9:28 AM EST Lymphoma ABO/RH TYPING STAT 01/07/2015 9:28 AM EST Lymphoma CBC (WITH DIFF) STAT 01/07/2015 9:28 AM EST Lymphoma ANTIBODY SCREEN STAT 01/07/2015 9:28 AM EST Lymphoma TYPE AND SCREEN ([facility]/MARTHA) STAT 01/07/2015 9:28 AM EST Lymphoma MAGNESIUM STAT 01/07/2015 9:28 AM EST COMPREHENSIVE METABOLIC PANEL STAT 01/07/2015 9:28 AM EST Lymphoma documented in this encounter Results * (ABNORMAL) Differential, Manual (01/07/2015 9:28 AM EST) Neutrophil % Manual 60 % CERNER MILLENNIUM Band % 2 % CERNER MILLENNIUM Lymphocyte Manual 3 % CE RNER MILLENNIUM Monocyte Manual 20 % CERN ER MILLENNIUM Metamyelocyte Manual 1 % CERNER MILLENNIUM Myelocyte Manual 10 % CER NER MILLENNIUM Promyelocyte Manual 4 % CERNER MILLENNIUM Neutrophil Absolute (ANC) - Manual 7.6(H) 1.5 - 6.3 x10(3)/mc L CERNER MILLENNIUM Band Abs 0.3 0.2 - 0.6 x10(3)/mc L CERNER MILLENNIUM Neutrophil Absolute (ANC) - Automated 7.91(H) 1.50 - 6.30 x10(3)/mc L CERNER MILLENNIUM Lymph Absolute Manual 0.4(L) 1.0 - 3.6 x10(3)/mc L CERNER MILLENNIUM Monocyte Absolute Manual 2.6(H) 0.2 - 1.0 x10(3)/mc L CERNER MILLENNIUM [place] Absolute Manual 0.1(H) 0.0 - 0.0 x10(3)/mc L CERNER MILLENNIUM Myelo Absolute Manual 1.3(H) 0.0 - 0.0 x10(3)/mc L CERNER MILLENNIUM Promyelo Absolute Manual 0.5(H) 0.0 - 0.0 x10(3)/mc L CERNER MILLENNIUM Total Cells Ct 100 CERNE R MILLENNIUM Plat estimate Decreased CERNER MILLENNIUM RBC Morphology Abnormal CERNE R MILLENNIUM Ovalocytes 1-5 /HPF CERNER MILLENNIUM Toxic Granulation Present CE RNER MILLENNIUM Dohle Bodies Present CERNER DEWAYNEENNIUM Blood specimen (specimen) 01/07/2015 9:28 AM EST 01/07/2015 9:34 AM EST Narrative Resulting Agency Comment Spec In Lab Kimberly Mondragon MD HEMATOLOGY ORDER AYO GIBRAN GEEIUM * Magnesium (01/07/2015 9:28 AM EST) Magnesium 0.73 0.69 - 1.07 mmol/L GIBRAN GEEIUM Comment:result rechecked-NM Blood specimen (specimen) Venous Draw / Unknown 01/07/2015 9:28 AM EST 01/07/2015 9:37 AM EST Narrative Resulting Agency Comment Spec In Lab Kimberly Mondragon MD CHEMISTRY ORDERA BLES GIBRAN GEEIUM * Antibody screen (01/07/2015 9:28 AM EST) Ab Screen Interp Negative GIBRAN GEEIUM Expires at [id number] on: 01/10/2015 CERNER GERARDIUM Blood specimen (specimen) 01/07/2015 9:28 AM EST 01/07/2015 9:39 AM EST Narrative Resulting Agency Comment Spec In Lab Kimberly Mondragon MD BLOOD BANK LAB O RDERABLES CERNER MILLENNIUM * ABO/Rh Typing (01/07/2015 9:28 AM EST) ABORH Type B Pos CERNER MILLENNIUM Blood specimen (specimen) 01/07/2015 9:28 AM EST 01/07/2015 9:39 AM EST Narrative Resulting Agency Comment Spec In Lab Kimberly Mondragon MD BLOOD BANK LAB O RDERABLES GIBRAN BUCHANANENNIUM * (ABNORMAL) Hemogram (01/07/2015 9:28 AM EST) White Blood Cell 12.8(H) 4.0 - 10.0 x10(3)/mc L CERNER MILLENNIUM Red Blood Cell 3.06(L) 3.93 - 5.22 x10(6)/mc L CERNER MILLENNIUM Hemoglobin 9.7(L) 11.2 - 15.7 gm/dL CERNER MILLENNIUM Hematocrit 27.7(L) 34.0 - 45.0 % CERNER MILLENNIUM Mean Cell Volume 90.5 79.0 - 94.0 fL CERNER MILLENNIUM Mean Cell Hemoglobin 31.7 26.6 - 32.2 pg CERNER MILLENNIUM Mean Cell Hemoglobin Concentration 35.0 32.0 - 36.5 gm/dL CERNER MILLENNIUM Platelet 53(L) 145 - 370 x10(3)/mc L CERNER MILLENNIUM RDW Standard Deviation 50.1(H) 35.0 - 46.0 fL CERNER MILLENNIUM RDW coefficient of variation 15.4(H) 10.9 - 14.4 % CERNER MILLENNIUM Mean Platelet Volume 11.0 9.0 - 12.0 fL CERNER MILLENNIUM Blood specimen (specimen) 01/07/2015 9:28 AM EST 01/07/2015 9:34 AM EST Narrative Resulting Agency Comment Spec In Lab Kimberly Mondragon MD HEMATOLOGY ORDER AYO GIBRAN GEEIUM * (ABNORMAL) Comprehensive metabolic panel (non-fasting) (01/07/2015 9:28 AM EST) [facility] Glucose 114 65 - 199 mg/dL CERNER MILLENNIUM Comment:Diabetes: >=200 mg/d L plus symptoms Blood Urea Nitrogen 11 8 - 18 mg/dL CERNER MILLENNIUM Comment:result rechecked-NM Creatinine 1.03 0.70 - 1.20 mg/dL CERNER MILLENNIUM Comment: Please note that the pediatric reference intervals supplied above were not validated at [facility]. Results from pediatric patients should be interpreted in conjunction to the patient's age, height and muscle mass. Sodium 140 135 - 145 mmol/L CERNER MILLENNIUM Potassium 3.7 3.5 - 5.0 mmol/L CERNER MILLENNIUM Comment: Please note: ??Patients with WBC >100,000 may have falsely elevated Potassium levels. ??For accurate Potassium quantification in these patients send serum separator tube (gold top) for subsequent determinations. ??Contact the Clinical Chemistry Laboratory if there are any questions. Chloride 98 98 - 107 mmol/L CERNER MILLENNIUM Carbon Dioxide 27 22 - 31 mmol/L CERNER MILLENNIUM Anion Gap 15 5 - 15 mmol/L CERNER MILLENNIUM Calcium 10.2 8.5 - 10.5 mg/dL CERNER MILLENNIUM Protein, Total 7.0 6.1 - 8.0 gm/dL CERNER MILLENNIUM Albumin 4.2 3.2 - 5.2 gm/dL CERNER MILLENNIUM Aspartate Aminotransferase 25 0 - 30 unit/L CERNER MILLENNIUM Alanine Aminotransferase 21 0 - 30 unit/L CERNER MILLENNIUM Alkaline Phosphatase 154(H) 40 - 104 unit/L CERNER MILLENNIUM Bilirubin, Total 0.4 0.2 - 1.3 mg/dL CERNER MILLENNIUM Bilirubin, Direct 0.1 0.0 - 0.3 mg/dL CERNER MILLENNIUM Est Glomerular Filtration Rate 54(L) >=60 CERNER MILLENNIUM Comment: This estimated GFR [...] the following links into your internet browser. [email or web address] Blood specimen (specimen) 01/07/2015 9:28 AM EST 01/07/2015 9:34 AM EST Narrative Resulting Agency Comment Spec In Lab Kimberly Mondragon MD CHEMISTRY ORDERA LEANNA [facility] documented in this encounter Visit Diagnoses Diagnosis Lymphoma Other malignant lymphomas, unspecified site, extranodal and solid organ sites documented in this encounter Care Teams Impression Printer Relationship Specialty Start Date End Date Maine Dunn PA PCP - General 04/08/14 02/13/15 documented as of this encounter
--- OUTSIDE RECORDS SUMMARY | 2023-10-28 00:44 | XMS_ITS | Encounter Summary ---
Author Organization [facility] Address [facility] [place] [address] Care Team Providers Care Licensed Journeyman Electrician Name Role Phone Maine Dunn Primary Care Provider [phone] Encounter Details Date Type Department Care Team (Late st Contact Info) Description 01/07/2015 9:30 AM EST Office Visit [place] [phone] Kimberly Mondragon MD [facility] [address] HEMATOLOGY [place] [address] Lymphoma; Status post autologous bone marrow transplant [...] Sign Reading Time Taken Comments Blood Pressure 113/63 01/07/2015 9:29 AM EST Pulse 104 01/07/2015 9:29 AM EST Temperature 36.6 ??C (97.9 ??F) 01/07/2015 9:29 AM ES T Respiratory Rate 18 01/07/2015 9:29 AM EST Oxygen Saturation 99% 01/07/2015 9:29 AM EST Inhaled Oxygen Concentration - - Weight 63.3 kg (139 lb 9.6 oz) 01/07/2015 9:29 A M EST Height 158.3 cm (5' 2.32) 01/07/2015 9:29 AM ES T Body Mass Index 25.27 01/07/2015 9:29 AM EST documented in this encounter Progress Notes * Kimberly Burnett Hillary, AUTOMOTIVE LEASING SALES REPRESENTATIVE - 01/07/2015 9:23 AM EST Hematology/BMT [place] [address] FOLLOW-UP PATIENT EVALUATION PROBLEM LIST: 1. Diffuse [...] was not informative according to the Bassem seo associate, but the strong BCL2 expression in the absence of MUM1 suggests a germinal center origin via the Muris seo associate. Lymphoma TB discussion 10/01/14 Recommendations for salvage chemotherapy and autologous stem cell transplant. C#1 RDP 10/09/14 With stem cell collection C#2 RDP 11/04/14 PET scan negative! 11/25/14 ! [place] [facility]em Cell Transplant [...] with Primary Refractory DLBCL. She is Day +15 s/p an Autologous peripheral blood stem cell transplant. She tolerated the transplant reasonably well(see specifics above). She is feeling quite anxious about the whole process, and says she doesn't really remember. She was discharged home 2 days ago. Has spent most of her time in bed. She is sleeping very well and taking 3-4 daytime naps, each over a couple of hours. Did not do much walking while hospitalized. She is however, going up and down stairs 4-5x/day. Able to perform ADLs independently. No more low grade fevers, which were thought to be related to count recovery. No shaking chills andno focal s/s of infection. Denies ARVIZU's, lightheadedness or dizziness. Breathing remains stable, even walking up stairs. No chest pain or pressure. Struggling with her appetite. No interest in eating and contending with taste changes. Had a few mouth sores during transplant, but these have healed. She is eating a few bites of crackers, yogurt, soup broth and cheese. Poor intake of fluids, < 1Liter. Has never been able to take in a lot of fluids. Nausea this morning, but this is the first time No vomiting. Still having diarrhea- 2 episodes yesterday. Hemorrhoids are a little better. No longer needing to do sitz baths. They are not painful now and do not bleed. No pain. No bleeding or spontaneous bruising. No new rash. Residual erythema at old soto site. Anxiety is well controlled. MEDICATIONS: Prior to [...] by mouth 2 times daily. PROVIDER, HISTORICAL [place]-3 Fatty Acids-Vitamin E (FISH OIL) 1,000 mg Capsule Take by mouth. PROVIDER, HISTORICAL Calcium 500 mg Tablet Take by mouth. PROVIDER, HISTORICAL Cholecalciferol, Vitamin D3, (VITAMIN D-3) 2,000 unit Capsule Take 1,000 Units by mouth. PROVIDER, HISTORICAL ALLERGIES: Allergies Allergen Reactions ??? Levofloxacin Other (See Comments) tendonitis ??? Tegaderm [Transparent Dressings] Other (See Comments) Unsure if actual allergy, please try [id number] Skin tears/rawness ??? Vancomycin Itching and Dermatitis Sarah's syndrome. Slow infusion for any upcoming doses. Broke out in maculopapular pruritic dermatitis on abdomen, chest, forehead and upper back. INTERIM SOCIAL HISTORY: Changes in job, home situation, tobacco or alcohol use: Staying with her significant other CHANGES IN RELEVANT FAMILY HISTORY: HEMATOLOGIC REVIEW OF SYSTEMS: CONSTITUTIONAL SYMPTOMS: Fevers/chills/drenching sweats: No Recent infections: No Unexpected weight loss of > 10% baseline body weight: No Change in adenopathy or other masses: No GENERAL REVIEW OF SYSTEMS: Headache/lightheadedness/syncope: No Sinus pain/pressure: No Oral sores/lesions: No Sore throat/dysphagia: No Cough/SOB/chest pain: No Appetite: Poor Nausea/vomiting/dyspepsia: Nausea Diarrhea/constipation: Diarrhea Urinary pain, burning, incontinence: No Skin rashes or petechiae: No Peripheral edema: None Bruising/bleeding/melena: No Pain: No Other: No PHYSICAL EXAM: Vitals Office Visit from 01/07/2015 in [facility] Weight - Scale 63.322 kg (139 lb 9.6 oz) Height 158.3 cm (5' 2.32) BSA (Calculated - sq m) 1.67 sq meters BMI (Calculated) 25.3 Temp 36.6 ??C (97.9 ??F) Temp Source Temporal Heart Rate 104 Heart Rate Source Monitor Resp 18 BP 113/63 mmHg BP Location Right arm Patient Position Sitting SpO2 99 % GENERAL: Myriam Vivas is in no acute distress. Accompanied by her significant other. Looks tired. HEENT: Sunken eyes. Single healed oral ulcer on the left buccal mucosa. Mouth is dry Neck: Supple Lungs: Clear breath sounds bilaterally Heart: Slightly tachy with regular rhythm without murmur Abdomen: Soft, nontender and no organomegaly Skin: Healing petecchia on lower extremities. Skin is generally dry.. Left chest, at site of soto removal with erythema and 3-4mm opening - no drainage -no streaking Extremity: shows no edema Muskuloskeletal: Walks slowly and deliberately. Neuro: A+O x 3 Psychiatric: Teary LABORATORY STUDIES: Recent Results (from the past 24 hour(s)) Comprehensive metabolic panel (non-fasting) Result Value Ref Range Glucose Lvl 114 65 - 199 mg/dL BUN 11 8 - 18 mg/dL Creatinine 1.03 0.70 - 1.20 mg/dL Sodium 140 135 - 145 mmol/L Potassium 3.7 3.5 - 5.0 mmol/L Chloride 98 98 - 107 mmol/L CO2 27 22 - 31 mmol/L Anion Gap 15 5 - 15 mmol/L Calcium 10.2 8.5 - 10.5 mg/dL Total Protein 7.0 6.1 - 8.0 gm/dL Albumin 4.2 3.2 - 5.2 gm/dL AST 25 0 - 30 unit/L ALT 21 0 - 30 unit/L Alk Phos 154 (H) 40 - 104 unit/L Total Bilirubin 0.4 0.2 - 1.3 mg/dL Bili, Direct 0.1 0.0 - 0.3 mg/dL Estimated GFR 54 (L) >=60 Hemogram Result Value Ref Range WBC 12.8 (H) 4.0 - 10.0 x10(3)/mcL RBC 3.06 (L) 3.93 - 5.22 x10(6)/mcL Hemoglobin 9.7 (L) 11.2 - 15.7 gm/dL Hematocrit 27.7 (L) 34.0 - 45.0 % MCV 90.5 79.0 - 94.0 fL MCH 31.7 26.6 - 32.2 pg MCHC 35.0 32.0 - 36.5 gm/dL Platelets 53 (L) 145 - 370 x10(3)/mcL RDWSD 50.1 (H) 35.0 - 46.0 fL RDWCV 15.4 (H) 10.9 - 14.4 % MPV 11.0 9.0 - 12.0 fL ABO/Rh Typing Result Value Ref Range ABORh Type B Pos Antibody screen Result Value Ref Range Ab Screen Interp Negative Expires at 2359 on: 01/10/2015 Magnesium Result Value Ref Range Magnesium 0.73 0.69 - 1.07 mmol/L Differential, Manual Result Value Ref Range Neutrophil % 60 % Band % 2 % Lymphocyte % 3 % Monocyte % 20 % Metamyelo % 1 % Myelocyte % 10 % Promyelocyte % 4 % Neutrophil Abs 7.6 (H) 1.5 - 6.3 x10(3)/mcL Band Abs 0.3 0.2 - 0.6 x10(3)/mcL Neutr Abs (ANC) 7.91 (H) 1.50 - 6.30 x10(3)/mcL Lymphocyte Abs 0.4 (L) 1.0 - 3.6 x10(3)/mcL Monocyte Abs 2.6 (H) 0.2 - 1.0 x10(3)/mcL Metamyelo Abs 0.1 (H) 0.0 - 0.0 x10(3)/mcL Myelocyte Abs 1.3 (H) 0.0 - 0.0 x10(3)/mcL Promyelo Abs 0.5 (H) 0.0 - 0.0 x10(3)/mcL Tot Diff Cell Ct 100 Plat Estimate Decreased RBC Morphology Abnormal Ovalocytes 1-5 /HPF Toxic Granulation Present Dohle Bodies Present RADIOLOGY STUDIES: ASSESSMENT: Myriam Vivas is a 64 y.o. female with Primary Refractory DLBCL. She recently underwent an Autologous pb stem cell transplant. 1. /BMT - DAY + 15 - Conditioning regimen: CBV - Day 0 = 12/23/14 - Complications included n/v/d. Low grade fevers thought to be d/t blood count recovery; hemoirrhoids, anorexia - minimal transfusion support - CBC improved today. Has engrafted. - NO transfusions needed today. 2. ID - No focal s/s of [...] prophylaxis with Bactrim DS 1 tablet on Uzrivks-Oeuqrudqec-Qcyycdf and continue for six months post transplant. 3. FEN/Renal - Poor appetite- Myriam is feeling overwhelmed and pressured by the need to eat and drink an adequate amount. - Discussed better tolerance by taking in small amounts frequently. - Discussed protein and the need to increase her intake of fluids, which can include broth, jello and popsicles. - Does not need K+ or Mag replacement - Although Bun/Cre are normal, her Cre is up from discharge, confirming my suspicion for dehydration(urine has been darker). - Hydration today: NS 1 Liter IV over 2 hours. Will arrange for Hydration support only at [facility] for Tuesday, 01/10 4. Cardio/Pulmonary - Minimally tachycardic, also related to being dehydrated 5. GI/ Hepatic - Minimally elevated Alkp, otherwise, Normal LFTs - No nausea upon returning home until this morning. No vomiting. Has not needed any antiemetics. 7. Psychosocial - Talked a bit about her feelings of being overwhelmed, particularly around her lack of appetite. Assured Myriam what she is feeling is normal. Also mentioned to her significant other that it will be more work on his part finding food items Myriam is interested in. Also discussed it is normal and appropriate to tolerate small portions at one time. Talking about taking it One day at a time. - I discussed the importance of daily activity, starting out with very small increments, ie. Walking 5 minutes/day and building up slowly. Discussed that activity decreases the incidence of n/v, improves muscle tone and minimizes infectious risk, ie. Pneumonia. 6. Disposition - Staying with her significant other, Carlos. IMMEDIATE PLANS: - Hydration today: NS 1Liter IV over 2 hours - No transfusion support today. - Will arrange for hydration support on Tuesday, 01/10, locally at [facility] in One week with laboratory studies(access room), appt with me and infusion time for additional hydration support. Kimberly Burnett, MSN, AUTOMOTIVE LEASING SALES REPRESENTATIVE Nurse Practitioner Section of Hematology/Oncology [facility] Office phone: CC: Izzy Hinds MD documented in this encounter Plan of Treatment Upcoming Encounters Date Type Department Care Team (Late st Contact Info) Description 12/07/2023 12:00 PM EDT Office Visit Dermatology at [address] [phone] Juan F Chappell MD [facility] DR RANDEE [place] [address] documented as of this encounter Visit Diagnoses Diagnosis Lymphoma Other malignant lymphomas, unspecified site, extranodal and solid organ sites Status post autologous bone marrow transplant Bone marrow replaced by transplant documented in this encounter Care Teams Licensed Journeyman Electrician Relationship Specialty Start Date End Date Maine Dunn PA PCP - General 04/08/14 02/13/15 documented as of this encounter
--- OUTSIDE RECORDS SUMMARY | 2023-10-28 00:44 | XMS_ITS | Encounter Summary ---
Author Organization [facility] Address [facility] [place] [address] Care Team Providers Care [employer] Financials Developer Name Role Phone Maine Dunn Primary Care Provider Encounter Details Date Type Department Care Team (Latest Contact Info) Description 01/17/2015 2:15 PM EST Clinical Support Hematology/Oncology at [address] [phone] [facility] [place] [address] Status post autologous bone marrow transplant Social [...] of this encounter Progress Notes * Markell Drew RD - 01/17/2015 1:01 PM EST [facility] Dietitian Follow Up Assessment Seen By: Arminda Drew, MS, RD, PHYSICIST SOLID EARTH, LD Patient and diagnosis: Myriam Vivas is a 64yo female with Primary Refractory DLBCL. She is Day +18s/p an Autologous peripheral blood stem cell transplant. She was discharged home 4 days ago. [...] take in a lot of fluids. Assessment: HPI: Patient Active Problem List Diagnosis Code ??? Lymphoma C85.90 ??? Depression with anxiety F41.8 ??? Hypokalemia E87.6 ??? Hypomagnesemia E83.42 ??? Neutropenia D70.9 ??? Chemotherapy adverse reaction T45.1X5A ??? Status post autologous bone marrow transplant Z94.81 ADMIT on 12/17/[address] [facility] [place] for Autologous Peripheral BlN/ood Stem [...] on 12/29 Meds: reviewed Labs: reviewed Ht/Wt: 63.9 kg on 01/17/15; gain Previous Wt: Oncology Vitals 01/10/2015 Weight 62.823 kg Height 158.3 cm Wt Hx: UBW: 125 - 150 % UBW: IBW: +/- 10% % IBW: BMI: ___ Edema ___ Ascites ___Muscle wasting Calorie needs: Protein needs: Fluid needs: Food Intake: Eating a lot of frozen foods, but not the crap frozen foods. Eating Shanna's and Renee's Own. Am: 2 pieces toast w/ butter Noon: 1/2 bagel w/ egg and cheese Pm: pizza, but didn't like it. Snacks: canned peaches Fluids: Doing better this week. Took out water bottle today, but hasn't started to use it. Vi markus, cup of decaf tea (almost whole cup), water. Struggles with drinking. Claims 40 oz to be a good day. Supplements/Frequency: home made smoothies - ___ Ensure/Plus ___ Boost/Plus ___ CIB ___ Other: Teas, vitamins, or other nutritional supplements: Mag-ox Food allergies or avoidances: spicy foods are bothering her Appetite: Nausea: rarely, takes zofran, prn Vomiting: Denies Chewing: Dentition: Swallowing: denies Taste Changes: starting to taste better Bowels: rarely diarrhea now. Took stool softener yesterday. Food availability/purchasing, meal planning and preparation: Staying with her significant other, Carlos. Depression: Social Support: Economic Issues: Physical Activity: limited, walking stairs 5-6 times/d (full set of stairs). Nutrition Diagnosis: Was asked by Faustina Soto RN to speak with Myriam while she was in clinic for IVF. We discussed the concept of food as medicine and the importance of eating small, frequent, calorically dense, protein-rich meals and snacks throughout the day. She is focusing on bland foods specifically cereals and crackers. She gets easily overwhelmed with food, which is not typical for her. Becoming stronger and more active since discharged 6 days ago. Now can walk up stairs unassisted and walks them 5-6 times/d. Struggles with fluids. Also discussed the benefits of light physical activity, Starting gradually with minutes and increasing daily, most days of the week to help with fatigue, stimulate appetite, and preserve muscle mass. Nutrition Intervention: ? Increase caloric needs ? Modify diet consistency: ? Increase frequency of meals and snacks ? Need for supplements Nutrition Goals: Educational Handouts provided: --Diarrhea --Fluid needs -- Taste and smell changes Other Recommendations: ? Monitoring and Evaluation: Will follow up with Mrs. Vivas___ in __2__ week (s) Via [facility] to re-evaluate. documented in this encounter Plan of Treatment Upcoming Encounters Date Type Department Care Team (Late st Contact Info) Description 12/07/2023 12:00 PM EDT Office Visit Dermatology at [facility] [address] [place] [address] Juan F Chappell MD [facility] DR [place] [address] documented as of this encounter Procedures Procedure Name Priority Date/Time Associated Diagnosis Comments CHEMOTHERAPY SCAN 01/15/2015 12:00 AM EST documented in this encounter Results * SCAN DOC: CHEMOTHERAPY (01/15/2015 12:00 AM EST) Scanning Provider MEDIA MGR SCAN EXT O RDR/RSLT documented in this encounter Visit Diagnoses Diagnosis Status post autologous bone marrow transplant Bone marrow replaced by transplant documented in this encounter Care Teams [employer] Fin[employer] Developer Relationship Specialty Start Date End Date Maine Dunn PA PCP - General 04/08/14 02/13/15 documented as of this encounter
--- OUTSIDE RECORDS SUMMARY | 2023-10-28 00:44 | XMS_ITS | Encounter Summary ---
Author Organization [facility] Address [facility] [place] [address] Care Team Providers Care Mechanical Pencils Assembler Name Role Phone Maine Dunn Primary Care Provider [phone] Reason for Visit * Reason Onset Date Comments Medication Refill 01/13/2015 Encounter Details Date Type Department Care Team (Late st Contact Info) Description 01/13/2015 Refill Hematology/Oncology at [address] [phone] Ramila Hernández RN Lymphoma; DLBCL (diffuse large B cell lymphoma); [...] Telephone Encounter - Ramila Hernández RN - 01/13/2015 9:46 AM EST Telephone call from patient requesting refill lorazepam. I discussed this with Dr. Mondragon who approved refill. Refill phoned into [facility] at [facility]. Telephone call back to patient to let her know this refill has been called in. documented in this encounter Plan of Treatment Upcoming Encounters Date Type Department Care Team (Late st Contact Info) Description 12/07/2023 12:00 PM EDT Office Visit Dermatology at [facility] [address] [place] [address] Juan F Chappell MD [facility] DR R[place] [address] documented as of this encounter Visit Diagnoses Diagnosis Lymphoma Other malignant lymphomas, unspecified site, extranodal and solid organ sites DLBCL (diffuse large B cell lymphoma) Other malignant lymphomas, unspecified site, extranodal and solid organ sites Stem cell donor Examination of participant in clinical trial documented in this encounter Care Teams Mechanical Pencils Assembler Relationship Specialty Start Date End Date Maine Dunn PA PCP - General 04/08/14 02/13/15 documented as of this encounter
--- OUTSIDE RECORDS SUMMARY | 2023-10-28 00:44 | XMS_ITS | Encounter Summary ---
Author Organization [facility] Address [facility] [place] [address] Care Team Providers Care Vice President Of Consulting Services Name Role Phone Maine Dunn Primary Care Provider [phone] Encounter Details Date Type Department Care Team (Latest Contact Info) Description 01/10/2015 Unscheduled Encounter Hematology/Oncology at [address] [phone] [facility] [place] [address] Dietary counseling and surveillance Social History Tobacco [...] Progress Notes * Markell Drew RD - 01/10/2015 3:16 PM EST [facility] Dietitian Follow Up Assessment Seen By: Arminda Drew, MS, RD, MOTOR VEHICLE SALESPERSON, LD Patient and diagnosis: Myriam Vivas is [...] marrow transplant Z94.81 ADMIT on 12/17/14 to [facility] [...] on 12/29 Meds: reviewed Labs: reviewed Ht/Wt: Oncology Vitals 01/10/2015 Weight 62.823 kg Height 158.3 cm Wt Hx: UBW: 125 - 150 % UBW: IBW: +/- 10% % IBW: BMI: ___ Edema ___ Ascites ___Muscle wasting Calorie needs: Protein needs: Fluid needs: Food Intake: Today was the most she has eaten in a long time d/t N/D Am: 1/2 bowl instant oatmeal Noon: Pm: Snacks: saltienes Fluids: sipping on oumar markus, cup of decaf tea (almost whole cup), water. Struggles with drinking.Claims 40 oz to be a good day. Supplements/Frequency: ___ Ensure/Plus ___ Boost/Plus ___ CIB ___ Other: Teas, vitamins, or other nutritional supplements: Mag-ox Food allergies or avoidances: spicy foods are bothering her Appetite: Nausea: + taking zofran and has Vomiting: Chewing: Dentition: Swallowing: Mouth sore, no longer doing baking soda and salt rinses Taste Changes: + Bowels: diarrhea, incontence and wearing Depends. Food availability/purchasing, meal planning and preparation: Staying [...] Will follow up with Mrs. Vivas___ in __1__ week (s) to re-evaluate. documented in this encounter Plan of Treatment Upcoming Encounters Date Type Department Care Team (Late st Contact Info) Description 12/07/2023 12:00 PM EDT Office Visit Dermatology at [facility] [address] [place] [address] Juan F Chappell MD [facility] DR RANDEE [place] [address] documented as of this encounter Visit Diagnoses Diagnosis Dietary counseling and surveillance Dietary surveillance and counseling documented in this encounter Care Teams Vice President Of Consulting Services Relationship Specialty Start Date End Date Maine Dunn PA PCP - General 04/08/14 02/13/15 documented as of this encounter
--- OUTSIDE RECORDS SUMMARY | 2023-10-28 00:45 | XMS_ITS | Encounter Summary ---
Author Organization [facility] [place] [address] Care Team Providers Care Qual Research Manager Name Role Phone Maine Dunn Primary Care Provider [phone] Reason for Referral * Diagnostic Test (Routine) - Closed Specialty Diagnoses / Procedures Referred By Perry cabrera Referred To Contact Radiology Diagnoses DLBCL (diffuse large B cell lymphoma) Procedures IR central venous access Светл[place] [address] Referral ID Status Reason Start Date Expiration Date V isits Requested Visits Authorized [id number] Closed Specialty Service Requested 12/17/2014 12/17/2015 1 1 Reason for Visit * Auth/Cert - Closed Specialty Diagnoses / Procedures Referred By Contnam t Referred To Contact Diagnoses Diffuse large B-cell lymphoma, unspecified site [id number] CBV Procedures PRO BONE MARROW/STEM XPLANT, AUTOLOGOUS AUTOLOGOUS STEM CELL TRANSPLANT Referral ID Status Reason Start Date Expiration Date Visits Re quested Visits Authorized [id number] Closed 1 1 Encounter Details Date Type Department Care Team (Late st Contact Info) Description 12/17/2014 8:02 AM EST - 12/17/2014 10:44 AM EST Hospital [place] [address] Kimberly Mondragon MD [facility] DR HEMATOLOGY [place] [address] DLBCL (diffuse large B cell lymphoma) Discharge [...] Sign Reading Time Taken Comments Blood Pressure 126/74 12/17/2014 10:30 AM EST Pulse 89 12/17/2014 9:50 AM EST Temperature 35.9 ??C (96.6 ??F) 12/17/2014 9:59 AM ES T Respiratory Rate 16 12/17/2014 9:59 AM EST Oxygen Saturation 98% 12/17/2014 10:30 AM EST Inhaled Oxygen Concentration - - Weight - - Height - - Body Mass Index - - documented in this encounter Discharge Instructions * Discharge Instructions* Nile Owens RN - 12/17/2014 10:42 AM EST [facility] Vascular/Interventional Radiology DISCHARGE INSTRUCTIONS FOR TUNNELED CENTRAL VENOUS CATHETER CARE Bandage: There is a sterile dressing over the catheter site consisting of a small gauze with a clear dressing ( Tegaderm) over it. This dressing will be changed or removed by the hospital staff, and you should not change it at home. If the clear dressing becomes loose, you should place tape over the edges to secure it in place. Never touch the open end of the CVC when the cap has been removed. Bathing: You may shower 72 hours after the catheter has been inserted. When you shower or bathe, you must cover the site with a waterproof material, such as plastic wrap, taped over the dressing and injection caps. When to call your healthcare provider: ?? If you develop pain, redness, drainage of swelling at the catheter or neck puncture site. ?? If you develop a fever of 101 degrees or greater. ?? If you develop shaking chills. ?? If the catheter breaks, or you notice leaking from one of the ports or the catheter itself. ?? If you notice bleeding from the catheter or the neck puncture sites, apply firm pressure over both sites simultaneously for 10-15 minutes. If you are still bleeding after 10-15 minutes, have someone drive you to the nearest Emergency Department or call 911. When to call the Interventional Radiology Department: Please call with any questions or concerns. If it is during regular working hours, please call [phone]. If it is after 5 pm or a weekend or holiday, call [phone] and ask for the Sales Stock Associate sales assistants and salespersons for Interventional Radiology. You have received medication during your procedure to help lesson anxiety and keep you comfortable.We recommend that you do not drive, operate equipment, sign any important documents, or smoke unattended for 24 hours following your procedure. You may have received medication before and/or during your procedure, which affects judgement and reaction time. Be careful on stairs, as you may be unsteady on your feet. You may eat a regular diet as tolerated IV site -- slight redness, or tenderness is normal, you can use a warm compress. If tenderness and redness increases or foul drainage occurs, please contact your M. D. 02/26/11 documented in this encounter Medications at Time of Discharge Medication Sig Dispensed Refills Start Date End Date acyclovir (ZOVIRAX) 400 mg Tablet Take 2 tablets by mouth 2 times daily. 60 tablet 3 01/03/2015 01/03/2015 hydrocortisone 1 % Cream Apply topically 4 [...] for Nausea. 30 tablet 1 10/25/2014 05/07/2015 acyclovir (ZOVIRAX) 400 mg Tablet Take 1 tablet by mouth 2 times daily. 60 tablet 3 10/11/2014 01/03/2015 docusate sodium (COLACE) 100 mg Capsule Take 100 mg by mouth 2 times daily. 10/02/2015 senna (SENOKOT) 8.6 mg Tablet Take 1 tablet by mouth daily. 12/25/2015 Lyerly-3 Fatty Acids-Vitamin E (FISH OIL) 1,000 mg CapsuleIndications:Lym phoma Take by mouth. 01/29/2015 Calcium 500 mg TabletIndications:Lymp fawn Take by mouth. 01/29/2015 Cholecalciferol, Vitamin D3, (VITAMIN D-3) 2,000 unit CapsuleIndications:Lym phoma Take 1,000 Units by mouth. 01/29/2015 escitalopram (LEXAPRO) 10 mg tablet 03/08/2005 01/03/2015 documented as of this encounter Progress Notes * Marci Sahu PA - 12/16/2014 9:54 AM EST Images from the original note were not included. PRE-PROCEDURE VIR NOTE Date of : 1950 Age: 64 y.o. PCP: SOPHY FUNES Referring Physician (if different): Giancarlo Indication: Scheduled for stem cell transplant Planned Procedure: Tunneled triple lumen CVC ( non pheresis) Chief Complaint/Diagnosis: 64 yo female with h/o lymphoma scheduled for stem cell transplant. Tunneled triple lumen CVC requested. Pertinent Past Medical/Surgical History: Patient Active Problem List Diagnosis Code ??? Lymphoma C85.90 ??? Depression with anxiety F41.8 ??? Hypokalemia E87.6 ??? Hypomagnesemia E83.42 ??? LOUISE (acute kidney injury) N17.9 ??? Neutropenia D70.9 Allergies Allergen Reactions ??? Levofloxacin Other (See Comments) tendonitis ??? Tegaderm [Transparent Dressings] Other (See Comments) Unsure if actual allergy, please try [id number] Skin tears/rawness Current Outpatient Prescriptions on File Prior to Encounter Medication Sig Dispense Refill ??? magnesium oxide (MAG-OX) 400 mg Tablet Take 1 tablet by mouth daily. 60 tablet 12 ??? ondansetron (ZOFRAN) 8 mg Tablet Take 1 tablet by mouth every 8 hours as needed for Nausea. 20 tablet 3 ??? LORazepam (ATIVAN) 0.5 mg Tablet Take 1 tablet by mouth every 6 hours as needed for Anxiety. 30tablet 2 ??? prochlorperazine (COMPAZINE) 10 mg Tablet Take 1 tablet by mouth every 6 hours as needed for Nausea. 30 tablet 1 ??? acyclovir (ZOVIRAX) 400 mg Tablet Take 1 tablet by mouth 2 times daily. 60 tablet 3 ??? docusate sodium (COLACE) 100 mg Capsule Take 100 mg by mouth 2 times daily. ??? senna (SENOKOT) 8.6 mg Tablet Take 1 tablet by mouth daily. ??? Lyerly-3 Fatty Acids-Vitamin E (FISH OIL) 1,000 mg Capsule Take by mouth. ??? Calcium 500 mg Tablet Take by mouth. ??? Cholecalciferol, Vitamin D3, (VITAMIN D-3) 2,000 unit Capsule Take 1,000 Units by mouth. ??? escitalopram (LEXAPRO) 10 mg tablet No current facility-administered medications on file prior to encounter. Pertinent ROS: as per HPI Pertinent Family History: non contributory Social History: n/a Labs: Lab Results Component Value Date WBC 4.1 12/10/2014 ANC 3.60 11/04/2014 HCT 25.5* 12/10/2014 PLATELET 179 12/10/2014 INR 1.0 12/10/2014 BUN 28* 12/10/2014 Lab Results Component Value Date ALKPHOS 80 12/10/2014 AST 24 12/10/2014 ALBUMIN 4.3 12/10/2014 BILIDIR 0.1 12/10/2014 BILITOT 0.4 12/10/2014 ALT 29 12/10/2014 Physical Exam: pending ASA: Mallampati Class: Assessment / Plan: 64 yo female with h/o lymphoma scheduled for stem cell transplant. Tunneled triple lumen CVC requested. Medications to discontinue: none Prophylactic antibiotic: Ancef 2 grams IV Planned access site / position: Supine, likely LIJ Pre-Sedation Assessment: Assessment: Cardiovascular: Rhythm: Regular Rate: Normal Pulmonary: Breath sounds clear to auscultation ASA: 3: Patient with severe systemic disease Mallampati: II: tonsillar pillars are blocked by the tongue Sedation Plan: moderate (conscious sedation) The sedation plan, its benefits and risks, and alternatives were discussed with the patient. The planned procedure, its benefits and risks, and alternatives were discussed with the patient. The patient consented to the procedure. IE * Shameka Wilkerson RN - 12/12/2014 2:42 PM EDT ANGIO/VIR NURSING DATABASE Name: MYRIAM DE SOUZA Date of : 1950 AGE 64 y.o. [address]: [address] [place] [id number] (home) Mobile: No relevant phone numbers on file. Referring Provider: Светлана Boone PROCEDURE: 3-lumen IJ tunneled non pheresis catheter -DLBCL, s/p salvage therapy, PET negative , being admitted for autologous transplant Allergies Allergen Reactions ??? Levofloxacin Other (See Comments) tendonitis ??? Tegaderm [Transparent Dressings] Other (See Comments) Unsure if actual allergy, please try [id number] Skin tears/rawness Pertinent PMH: Patient Active Problem List Diagnosis Code ??? Lymphoma C85.90 ??? Depression with anxiety F41.8 ??? Hypokalemia E87.6 ??? Hypomagnesemia E83.42 ??? LOUISE (acute kidney injury) N17.9 ??? Neutropenia D70.9 Pertinent PSH: Past Surgical History Procedure Laterality Date ??? Pro bone marrow aspiration w/bx through same incision/site Right 03/29/2014 ([facility]) BONE MARROW ASP PERFORMED W/BX THRU BX INCISION performed by Kimberly Mondragon MD at [facility] ??? Pro bone marrow bx, needle/trocar Right 03/29/2014 ([facility]) BONE MARROW,BIOPSY performed by Kimberly Mondragon MD at [facility] ??? Pro bone marrow aspiration w/bx through same incision/site Left 09/02/2014 ([facility]) BONE MARROW ASP PERFORMED W/BX THRU BX INCISION performed by Kimberly Mondragon MD at [facility] ??? Pro bone marrow bx, needle/trocar Left 09/02/2014 ([facility]) BONE MARROW,BIOPSY performed by Kimberly Mondragon MD at [facility] ??? Pro endobronchial u/s add-on N/A 09/26/2014 ENDOBRONCHIAL ULTRASOUND (EBUS) performed by Jamey Martin MD at [facility] ENDOSCOPY DATE PROCEDURE MEDS GIVEN 04/05/14 Mediport placement Ancef 1 gm IV; Versed 2.5 mg IV; Fentanyl 150 mcg IV. 10/23/14 Non-tunneled Temporary CVC Line. Fentanyl 150 mcg IV,Versed 2mg IV, 12/17/14 Triple lumen CVC tunneled, apheresis catheter placed. Ancef 2 gms IV; Versed 3 mg IV; Fentanyl 150 mcg IV. Laboratory Results: Lab Results Component Value Date INR 1.0 12/10/2014 No components found for: PT/PTT Lab Results Component Value Date CREATININE 1.01 12/10/2014 Lab Results Component Value Date K 3.8 12/10/2014 Lab Results Component Value Date PLATELET 179 12/10/2014 Medications: Prior to Admission medications Medication Sig Start Date End Date Taking? Authorizing Provider magnesium oxide (MAG-OX) 400 mg Tablet Take 1 tablet by mouth daily. 11/06/14 Zayra Leach APRN ondansetron (ZOFRAN) 8 mg Tablet Take 1 tablet by mouth every 8 hours as needed for Nausea. 11/04/14Kimberly Mondragon MD LORazepam (ATIVAN) 0.5 mg Tablet Take 1 tablet by mouth every 6 hours as needed for Anxiety. 11/04/14 Kimberly Mondragon MD prochlorperazine (COMPAZINE) 10 mg Tablet Take 1 tablet by mouth every 6 hours as needed for Nausea. 10/25/14 Elie Grace MD acyclovir (ZOVIRAX) 400 mg Tablet Take 1 tablet by mouth 2 times daily. 10/11/14 Elsi Mena MD docusate sodium (COLACE) 100 mg Capsule Take 100 mg by mouth 2 times daily. PROVIDER, HISTORICAL senna (SENOKOT) 8.6 mg Tablet Take 1 tablet by mouth daily. PROVIDER, HISTORICAL Lyerly-3 Fatty Acids-Vitamin E (FISH OIL) 1,000 mg Capsule Take by mouth. PROVIDER, HISTORICAL Calcium 500 mg Tablet Take by mouth. PROVIDER, HISTORICAL Cholecalciferol, Vitamin D3, (VITAMIN D-3) 2,000 unit Capsule Take 1,000 Units by mouth. PROVIDER, HISTORICAL escitalopram (LEXAPRO) 10 mg tablet 03/08/05 ++++ FOR OUTPATIENT SCAN'S: I have informed this patient that they require a road oiling truck driver to be present and in the building to drive them home after this procedure. In the absence of a road oiling truck driver, IR will not be able to perform this procedure and will need to reschedule. Pt verbalized understanding of these i nstructions during the pre-procedure education via phone. (initials) documented in this encounter Plan of Treatment Upcoming Encounters Date Type Department Care Team (Late st Contact Info) Description 12/07/2023 12:00 PM EDT Office Visit Dermatology at [facility] [address] [place] [address] Juan F Chappell MD [facility] DR RANDEE [place] [address] documented as of this encounter Procedures Procedure Name Priority Date/Time Associated Diagnosis Comments IR TUNNELED CENTRAL VENOUS ACCESS NON-DIALYSIS Routine 12/17/2014 9:56 AM EST DLBCL (diffuse large B cell lymphoma) documented in this encounter Results * IR central venous access (12/17/2014 9:56 AM EST) Anatomical Region Laterality Modality Chest, Vascular X-Ray Angiograph y Narrative 12/18/2014 11:43 AM EST VIR PROCEDURE NOTE: ?? Procedure: ??Triple lumen tunneled non pheresis left ??IJ cath Indication: ??Stem cell transplant Technique: After discussing risks (including infection, bleeding, damage to surrounding structures), and benefits, patient consented to the procedure. A moment of truth was performed and the patient and procedure correctly identified. ??Due to discomfort during the ??procedure, split doses of fentanyl and versed were administered by the IR nurse during continuous monitoring of pulse, blood pressure and oxygen saturation. ?? Total administered: Fentanyl 150 mcg IV, Versed 3 mg IV. ??Ancef 2 g IV administered for antibiotic prophylaxis. After maximal sterile barrier technique preparation of the neck and upper chest, ultrasound was used to localize the internal jugular vein. ??1% lidocaine SQ was administered for anesthesia, and a 21 ga needle was advanced under ultrasound guidance into the IJ and a 0.018 inch wire was advanced into SVC. ??A 5 Fr introducer sheath was placed and the wire exchanged for a 0.035 inch wire. ?? Lidocaine was then infiltrated in a caudal-lateral direction, and incision below the clavicle made with an 11 blade. ??A tunneler was then used to bring the triple lumen 12.5 Fr catheter through the tunnel to the venotomy site. ??Venotomy was dilated to accommodate the 13 Fr peel-away sheath, and during breath-hold, the catheter advanced. ??Sheath was removed, and catheter secured to the skin. ??All ports flushed and aspirated well. ?? Patient tolerated the procedure well. ?? Complications: ??There were no immediate complications. Contrast: ??No contrast administered. ?? Fluoro time: 0.3 ??min. Impression: US and fluoro guided placement of a triple lumen tunneled left IJ non pheresis catheter, tip in the cavoatrial junction. Recommendation: Catheter ready for use. Procedure performed by ANGIE Walton Dr. Kimberly Mondragon MD IMG IR ORDERABLE S [...] (50 mg), Infiltration, ONCE, 1 dose, On Tue12/17/14 at 0900, For use in Interventional Radiology (IR) only for procedural sedation with direct provider supervision and verbal order., Angio/IR (Intra-Procedure), Routine Given 12/17/2014 9:27 AM EST 20 mLs ceFAZolin (ANCEF) 2g in dextrose 5% 50 mL 2 g, Intravenous, ONCE, 1 dose, On Tue12/17/14 at 0900, Administer over 30 Minutes, Redose every 3 hours if CrCl is greater than 20. Redose every 8 hours if CrCl is less than 20., Day of Surgery (Day of Procedure), Indication for (Active or Suspected): Prophylaxis Given 12/17/2014 9:14 AM EST 2 g 100 mL/hr fentaNYL 50 mcg/mL multi-dose injection 25-50 mcg, Intravenous, EVERY 5 MIN PRN, Starting on Tue12/17/14 at 0844, Until Tue12/17/14 at 0945, Pain, per unit protocol, For use in Interventional Radiology (IR) only for procedural sedation with direct provider supervision and verbal order., Angio/IR (Intra-Procedure), Routine Given 12/17/2014 9:32 AM EST 50 mcg Given 12/17/2014 9:22 AM EST 50 mcg Given 12/17/2014 9:11 AM EST 50 mcg lidocaine (XYLOCAINE) 10 mg/mL (1 %) injection 10 mg 10 mg, Subcutaneous, ONCE, 1 dose, On Tue12/17/14 at 0900, For use in Interventional Radiology (IR) only for procedure with direct provider supervision and verbal order., Angio/IR (Intra-Procedure), Routine Given 12/17/2014 9:26 AM EST 10 mg midazolam (PF) (VERSED) 1 mg/mL multi-dose injection 0.5-1 mg 0.5-1 mg, Intravenous, EVERY 5 MIN PRN, Starting on Tue12/17/14 at 0844, Until Tue12/17/14 at 0945, Anxiety, per unit protocol, For use in Interventional Radiology (IR) only for procedural sedation with direct provider supervision and verbal order., Angio/IR (Intra-Procedure), Routine Given 12/17/2014 9:32 AM EST 1 mg Given 12/17/2014 9:22 AM EST 1 mg Given 12/17/2014 9:11 AM EST 1 mg sodium chloride 0.9% infusion 1,000 mL, at 100 mL/hr, Intravenous, CONTINUOUS, Starting on Tue12/17/14 at 0900, Until Tue12/18/14 at 0436, Day of Surgery (Day of Procedure) New Bag 12/17/2014 8:37 AM EST 1,000 mLs 100 mL/hr documented in this encounter Care Teams Qual Research Manager Relationship Specialty Start Date End Date Maine Dunn PA PCP - General 04/08/14 02/13/15 documented as of this encounter
--- OUTSIDE RECORDS SUMMARY | 2023-10-28 00:45 | XMS_ITS | Encounter Summary ---
Author Organization [facility] Address [facility] [place] [address] Care Team Providers Care Sr. Operations Manager Name Role Phone Maine Dunn Primary Care Provider [phone] Reason for Visit * Reason Comments Follow-up Encounter Details Date Type Department Care Team (Late st Contact Info) Description 12/10/2014 8:30 AM EDT Office Visit Hematology [place] [id number] Kimberly Mondragon MD [facility] [place] [address] Светлана Boone RN Lymphoma Social History Tobacco Use Types Packs/Day [...] Sign Reading Time Taken Comments Blood Pressure 130/69 12/10/2014 8:31 AM EDT Pulse 83 12/10/2014 8:31 AM EDT Temperature 36.4 ??C (97.5 ??F) 12/10/2014 8:31 AM ED T Respiratory Rate 16 12/10/2014 8:31 AM EDT Oxygen Saturation 100% 12/10/2014 8:31 AM EDT Inhaled Oxygen Concentration - - Weight 66.5 kg (146 lb 9.7 oz) 12/10/2014 8:31 A M EDT Height 158.7 cm (5' 2.48) 12/10/2014 8:31 AM ED T Body Mass Index 26.4 12/10/2014 8:31 AM EDT documented in this encounter Progress Notes * Светлана Boone RN - 01/16/2015 4:32 PM EST 12/10/14 BMT Coordinator note/ Pre-transplant work-up and consent for transplant S I am exhausted from all the tests today. O: Myriam is here for her pre-transplant work-up and to discuss again the transplant process. Myriam verbalizes why we did all of these tests today. The results we have available as of today, she meetseligibility for transplant. I will request ins approval for her transplant when all results are available. We discussed in detail the chemotherapy she will receive, infusion of the stem cells, being neutropenic and complications during the hospital stay, counts recovering and discharge. Talked about the transplant recovery phase. Her goal is to return to work in February 2015. Myriam was asking good questions and is more prepared to move to her transplant admission. He daughter will be with her at the beginning of her transplant. Myriam plans to stay with a friend the first week after her discharge. I asked Myriam to complete the distress tool to have a base line before her transplant. She identifies her level to be be 3. I expected she would report a higher level because she reports anxiety and the need to use Ativan. She identified under practical problems making treatment decisions but she seems comfortable with the decision to proceed to transplant and recover and resume a normal life. She admits she worries but didn't identify any concerns or worries about the transplant during this meeting today. Her physical complaints are constipation ,fatigue, pain and sleep. She has been dealingwith these during her chemotherapy. Her pain was joint discomforts and stopping the Levaguin has dec reased her discomfort. A: Getting prepared for her transplant admission, scheduled for 12/17/14. P: Line placement, Labs, see a provider to be admitted, plan CBV regimen. Will communicate admit date to Thelma Cagle APRN to work on Veguita order set. * Kimberly Mondragon MD - 12/10/2014 8:37 AM EDT Hematology Clinic [facility] [place] [address] FOLLOW-UP PATIENT EVALUATION PROBLEM LIST: Patient Active Problem List Diagnosis ??? Depression with anxiety ??? Hypokalemia ??? Hypomagnesemia ??? LOUISE (acute kidney injury) ??? Neutropenia ??? Lymphoma [address] biopsy [...] was not informative according to the [employer] accounts adjustable clerk, but the strong BCL2 expression in the absence of MUM1 suggests a germinal center origin via the [place] accounts adjustable clerk. Lymphoma TB discussion 10/01/14 Recommendations for salvage chemotherapy and autologous stem cell transplant. C#1 RDHAP 10/09/14 With stem cell collection C#2 RDHAP 11/04/14 PET scan negative! 11/25/14 ! INTERIM HISTORY OF PRESENT ILLNESS: It was my pleasure to see Myriam Vivas back in clinic today. Myriam Vivas is a 64 y.o. 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 She is not sleeping well so very tired. No response at ativan, ambien, benadryl. Does not think it is anxiety. Has to sleep in in the AM to feel better. Plans to admit on Saturday 12/16 for transplant. ROS Energy level: She is getting out and doing errands and all ADL's Pain: No Appetite:good Fevers/chills/sweats:No Bruising/bleeding/melena:No Recent infections:No HEENT: negative Nausea/vomiting/diarrhea/constipation:No SOB/HAUSER/chest pain:No Change in adenopathy or other masses:No Unexpected weight loss or gain:No Skin rashes or petechiae:No Musculoskeletal complaints:No Extremities: Negative upper and lower bilaterally Neurologic symptoms:No Mood: Normal Sleep: Difficulty sleeping - see above MEDS: No outpatient prescriptions have been marked as taking for the 12/10/14 encounter (Office Visit) with Kimberly Mondragon MD. Allergies: Allergies Allergen Reactions ??? Levofloxacin Other (See Comments) tendonitis ??? Tegaderm [Transparent Dressings] Other (See Comments) Unsure if actual allergy, please try [id number] Skin tears/rawness INTERIM SOCIAL HISTORY Changes in job, home situation, tobacco or alcohol use: see HPI PHYSICAL EXAM BP 130/69 mmHg Pulse 83 Temp(Src) 36.4 ??C (97.5 ??F) (Temporal) Resp 16 Ht 158.7 cm (5' 2.48) Wt 66.5 kg (146 lb 9.7 oz) BMI 26.40 kg/m2 SpO2 100% Body surface area is 1.71 meters squared. GENERAL: Myriam Vivas appears well [...] MUSCULOSKELETAL: No spinal or chest wall tenderness. LINE: nontender, no erythema LABORATORY STUDIES No results found for this or any previous visit (from the past 72 hour(s)). RADIOLOGY STUDIES REVIEWED: none ASSESSMENT/PLAN: I met with Myriam Vivas and Janny to discuss autologous bone marrow transplant. I explained the transplant process itself. It requires at least three if not four weeks in the hospital. I would plan to treat her with BCNU, etoposide, and Cytoxan. I explained the timeframe of chemotherapy being given on days -6, -4, and -2 with stem cell infusion on day zero. Granulocyte engraftment usually happens around day 10 to 11 with discharge by day 15. I discussed side effects of the autologous transplant. I specifically talked about the BCNU and theagitation that can occur with its infusion. I wrote everything down for her as we talked. She understands that BCNU may require Ativan and/or Demerol during the infusion. Other side effects from the t ransplant include but are not limited to: hair loss, nausea and vomiting, fatigue, loss of appetite, potential need for parenteral nutrition, and organ damage including brain, Heart, lungs, kidney, and liver. Cytoxan can also do damage to both the Heart and lungs. Other risks include bleeding, lossof fertility, infection, need for antibiotics, need for transfusions, need for ICU care. There is a2 to 5% chance of dying from the transplant itself. There is a 5 to 8% chance of myelodysplastic syndrome, most often more than 5 years after the transplant . Diarrhea, mucositis, and rashes were also reviewed. Following the transplant, the patient is discharged when her ANC is over 500, she is off antibiotics, and is able to eat and drink enough as well as ambulate to maintain successful discharge/home going. We talked about the immunosuppression following transplant, which can last up from six months to a year. She will require both Bactrim and acyclovir following tHe transplant. All of her questions were answered, and I wrote down all the information for her. she understands the risks and would like to proceed with our plan for stem cell collection and transplantation. she will meet with Светлана Boone. I will meet w/ her again to re-review transplant and especially the potential side effects and risks and for consenting. total time: 40 min 8:30-9:10 time in counsellin min Copy SOPHY FUNES (General) documented in this encounter Plan of Treatment Upcoming Encounters Date Type Department Care Team (Late st Contact Info) Description 12/07/2023 12:00 PM EDT Office Visit Dermatology at [facility] [address] [place] [address] Juan F Chappell MD [facility] [address] [place] [address] documented as of this encounter Visit Diagnoses Diagnosis Lymphoma Other malignant lymphomas, unspecified site, extranodal and solid organ sites documented in this encounter Care Teams Sr. Operations Manager Relationship Specialty Start Date End Date Maine Dunn PA PCP - General 04/08/14 02/13/15 documented as of this encounter
--- OUTSIDE RECORDS SUMMARY | 2023-10-28 00:45 | XMS_ITS | Encounter Summary ---
Author Organization [facility] [place] [address] Care Team Providers Care Porcelain Enamel Sprayer Name Role Phone Maine Dunn Primary Care Provider [phone] Encounter Details Date Type Department Care Team (Latest Contact Info) Description 12/10/2014 8:28 AM EDT - 12/10/2014 9:29 AM EDT Hospital Encounter Hematology [place] [id number] DLBCL (diffuse large B cell lymphoma) Discharge [...] Sig Dispensed Refills Start Date End Date magnesium oxide (MAG-OX) 400 mg Tablet Take 1 tablet by mouth daily. 60 tablet 12 11/06/2014 01/29/2015 ondansetron (ZOFRAN) 8 mg TabletIndications:Lympho ma,DLBCL (diffuse large B cell lymphoma),Stem cell donor,Examination of participant in clinical trial Take 1 tablet by mouth every 8 hours as needed for Nausea. 20 tablet 3 11/04/2014 05/07/2015 LORazepam (ATIVAN) 0.5 mg TabletIndications:Lympho ma,DLBCL (diffuse large B cell lymphoma),Stem cell donor,Examination [...] Take 1 tablet by mouth daily. 12/25/2015 Fordyce-3 Fatty Acids-Vitamin E (FISH OIL) 1,000 mg CapsuleIndications:Lymph vivien Take by mouth. 01/29/2015 Calcium 500 mg TabletIndications:Lympho ma Take by mouth. 01/29/2015 Cholecalciferol, Vitamin D3, (VITAMIN D-3) 2,000 unit CapsuleIndications:Lymph vivien Take 1,000 Units by mouth. 01/29/2015 escitalopram (LEXAPRO) 10 mg tablet 03/08/2005 01/03/2015 documented as of this encounter Plan of Treatment Upcoming Encounters Date Type Department Care Team (Late st Contact Info) Description 12/07/2023 12:00 PM EDT Office Visit Dermatology at [facility] [address] [place] [address] Juan F Chappell MD [facility] DR RANDEE [place] [address] documented as of this encounter Procedures Procedure Name Priority Date/Time Associated Diagnosis Comments HLA SCREEN GLORIA Routine 12/10/2014 12:2 0 PM EDT HEMOGRAM STAT 12/10/2014 12:20 PM EDT DLBCL (diffuse large B cell lymphoma) DIFFERENTIAL, AUTOMATED STAT 12/10/2014 12:20 PM EDT DLBCL (diffuse large B cell lymphoma) KIMBERLY-WOOTEN VIRUS ANTIBODIES STAT 12/10/2014 12:20 PM EDT DLBCL (diffuse large B cell lymphoma) CMV ANTIBODY, IGM STAT 12/10/2014 12: 20 PM EDT DLBCL (diffuse large B cell lymphoma) ABO/RH TYPING STAT 12/10/2014 12:20 PM EDT DLBCL (diffuse large B cell lymphoma) TOXOPLASMA ANTIBODY, IGG STAT 12/10/2014 12:20 PM EDT DLBCL (diffuse large B cell lymphoma) CMV ANTIBODY, IGG STAT 12/10/2014 12: 20 PM EDT DLBCL (diffuse large B cell lymphoma) URINALYSIS WITH REFLEX CULTURE Routine 12/10/2014 12:20 PM EDT DLBCL (diffuse large B cell lymphoma) PROTHROMBIN TIME STAT 12/10/2014 12:2 0 PM EDT DLBCL (diffuse large B cell lymphoma) CBC (WITH DIFF) STAT 12/10/2014 12:20 PM EDT DLBCL (diffuse large B cell lymphoma) ANTIBODY SCREEN STAT 12/10/2014 12:20 PM EDT DLBCL (diffuse large B cell lymphoma) TYPE AND SCREEN (MC/CGP/MARTHA) STAT 12/10/2014 12:20 PM EDT DLBCL (diffuse large B cell lymphoma) DIRECT ANTIGLOBULIN TEST STAT 12/10/2014 12:20 PM EDT DLBCL (diffuse large B cell lymphoma) TSH STAT 12/10/2014 12:20 PM EDT DLBCL (diffuse large B cell lymphoma) PHOSPHORUS STAT 12/10/2014 12:20 PM EDT DLBCL (diffuse large B cell lymphoma) MAGNESIUM STAT 12/10/2014 12:20 PM EDT DLBCL (diffuse large B cell lymphoma) LACTATE DEHYDROGENASE STAT 12/10/2014 12:20 PM EDT DLBCL (diffuse large B cell lymphoma) COMPREHENSIVE METABOLIC PANEL STAT 12/10/2014 12:20 PM EDT DLBCL (diffuse large B cell lymphoma) HSV 1 AND 2 IGG ANTIBODIES STAT 12/10/2014 12:20 PM EDT DLBCL (diffuse large B cell lymphoma) VARICELLA ZOSTER ANTIBODY, IGG STAT 12/10/2014 12:20 PM EDT DLBCL (diffuse large B cell lymphoma) documented in this encounter Results * HLA Screen GLORIA (12/10/2014 12:20 PM EDT) Pathologist [facility] HLA (GLORIA) Interp No HLA or platelet specific antibodies detected. CERNER MILLENNIUM Blood specimen (specimen) Venous Draw / Unknown 12/10/2014 12:20 PM EDT 12/10/2014 12:39 PM EDT Kimberly Mondragon MD BLOOD BANK LAB O RDERABLES CERNER MILLENNIUM * (ABNORMAL) Differential, Automated (12/10/2014 12:20 PM EDT) Pathologist [facility] Neutrophil % 74.8 % CERNER MILLENNIUM Neutrophil Absolute 3.05 1.50 - 6.30 x10(3)/mc L CERNER MILLENNIUM Lymph % 12.3 % CERNER MILLENNIUM Lymphocytes Abs 0.5(L) 1.0 - 3.6 x10(3)/mc L CERNER MILLENNIUM Monocyte % 9.3 % CERNER MILLENNIUM Monocyte Abs 0.4 0.2 - 1.0 x10(3)/mc L CERNER MILLENNIUM Eos % 2.9 % CERNER MILLENNIUM Eosinophils Abs 0.1 0.0 - 0.5 x10(3)/mc L CERNER MILLENNIUM Basophil % 0.5 % CERNER MILLENNIUM Baso Absolute 0.0 0.0 - 0.2 x10(3)/mc L CERNER MILLENNIUM [...] x10(3)/mc L CERNER MILLENNIUM Blood specimen (specimen) 12/10/2014 12:20 PM EDT 12/10/2014 12:49 PM EDT Narrative Resulting Agency Comment Spec In Lab Kimberly Mondragon MD HEMATOLOGY ORDER AYO CERNER MILLENNIUM * (ABNORMAL) Hemogram (12/10/2014 12:20 PM EDT) White Blood Cell 4.1 4.0 - 10.0 x10(3)/mc L CERNER MILLENNIUM Red Blood Cell 2.68(L) 3.93 - 5.22 x10(6)/mc L CERNER MILLENNIUM Hemoglobin 8.8(L) 11.2 - 15.7 gm/dL CERNER MILLENNIUM Hematocrit 25.5(L) 34.0 - 45.0 % CERNER MILLENNIUM Mean Cell Volume 95.1(H) 79.0 - 94.0 fL CERNER MILLENNIUM Mean Cell Hemoglobin 32.8(H) 26.6 - 32.2 pg CERNER MILLENNIUM Mean Cell Hemoglobin Concentration 34.5 32.0 - 36.5 gm/dL CERNER MILLENNIUM Platelet 179 145 - 370 x10(3)/mc L CERNER MILLENNIUM RDW Standard Deviation 60.5(H) 35.0 - 46.0 fL CERNER MILLENNIUM RDW coefficient of variation 17.9(H) 10.9 - 14.4 % CERNER MILLENNIUM Mean Platelet Volume 9.0 9.0 - 12.0 fL CERNER MILLENNIUM Blood specimen (specimen) 12/10/2014 12:20 PM EDT 12/10/2014 12:49 PM EDT Narrative Resulting Agency Comment Spec In Lab Kimberly Mondragon MD HEMATOLOGY ORDER AYO Performing Organization Address City/[facility]/ZIP Co de Phone Number [facility] GERARDIUM * Antibody screen (12/10/2014 12:20 PM EDT) Ab Screen Interp Negative CERNER MILLENNIUM Expires at [id number] on: 12/13/2014 CERNER MILLENNIUM Blood specimen (specimen) 12/10/2014 12:20 PM EDT 12/10/2014 12:39 PM EDT Narrative Resulting Agency Comment Spec In Lab Kimberly Mondragon MD BLOOD BANK LAB O RDERABLES Performing Organization Address [facility] Co de Phone Number GIBRAN GEEIUM * ABO/Rh Typing (12/10/2014 12:20 PM EDT) ABORH Type B Pos CERNER DEWAYNEENNIUM Blood specimen (specimen) 12/10/2014 12:20 PM EDT 12/10/2014 12:39 PM EDT Narrative Resulting Agency Comment Spec In Lab Kimberly Mondragon MD BLOOD BANK LAB O RDERABLES Performing Organization Address [facility] Co de Phone Number CERDANIA GEEIUM * Urinalysis with reflex Culture (12/10/2014 12:20 PM EDT) Glucose, Urine Dipstick Negative Negative mg/dL CERNER MILLENNIUM Protein, Urine Dipstick Negative Negative mg/dL CERNER MILLENNIUM Bilirubin, Urine Dipstick Negative Negative mg/dL CERNER MILLENNIUM Comment: Clinical correlation required for positive Urine Bilirubin results as false positive may occur with some drugs and drug related products. If a false positive is suspected a serum total bilirubin should be considered if clinically indicated. Urobilinogen, Urine Dipstick Normal Normal mg/dL CERNER MILLENNIUM pH, Urn (dipstick) 5.0 5.0 - 8.0 CERNER MILLENNIUM Blood, Urine Dipstick Negative Negative mg/dL CERNER MILLENNIUM Ketone, Urine Dipstick Negative Negative mg/dL CERNER MILLENNIUM Nitrite, Urine Dipstick Negative Negative CERNER MILLENNIUM Leukocytes, Urine Dipstick Negative Negative mcL CERNER MILLENNIUM Appearance, Urine Dipstick Clear Clear CERNER MILLENNIUM Specific [place] Urine Automated 1.025 1.002 - 1.030 CERNER MILLENNIUM Color, Urine Dipstick Yellow Yellow CERNER MILLENNIUM RBC, Urine <1 0 - 4 /HPF CERNER MILLENNIUM WBC, Urine 2 0 - 5 /HPF CERNER MILLENNIUM Squamous Epithelial Cells, Urine <1 <=4 /HPF CERNER MILLENNIUM Reflex to Culture No CERNER MILLENNIUM Urine specimen obtained by clean catch procedure (specimen) 12/10/2014 12:20 PM EDT 12/10/2014 12:49 PM EDT Narrative Resulting Agency Comment Spec In Lab Kimberly Mondragon MD URINE ORDERABLES [facility] * Toxoplasma Antibody, IgG (12/10/2014 12:20 PM EDT) Toxoplasma Antibody IgG Neg Neg [facility] Blood specimen (specimen) 12/10/2014 12:20 PM EDT 12/11/2014 7:58 AM EDT Narrative Resulting Agency Comment Spec In Lab Kimberly Mondragon MD IMMUNOLOGY ORDER AYO [facility] * (ABNORMAL) Kimberly-Wooten Virus Antibodies (12/10/2014 12:20 PM EDT) EBV (VCA) IgG Ab Pos(A) Neg CER NER MILLENNIUM EBV (VCA) IgM Ab Neg Neg CER NER MILLENNIUM EBNA Antibodies Pos(A) Neg CERN ER MILLENNIUM EBV Interpretation Results suggest past infection. CERNER MILLENNIUM Comment: In most populations, at least 90% of the adult population will have been infected with EBV some time in the past and therefore, will be positive for anti-VCA/IgG and anti-EBNA. Antibodies to EBNA develop 6-8 weeks after primary infection and remain present for life. Presence of VCA/IgM antibodies indicates recent primary infection with EBV. Blood specimen (specimen) 12/10/2014 12:20 PM EDT 12/11/2014 7:58 AM EDT Narrative Resulting Agency Comment Spec In Lab Kimberly Mondragon MD IMMUNOLOGY ORDER AYO Performing Organization Address City/[facility] Co de Phone Number [facility] DEWAYNEENNIUM * CMV Antibody, IgM (12/10/2014 12:20 PM EDT) CMV IgM Neg Neg CERNER MILLENNIUM Blood specimen (specimen) 12/10/2014 12:20 PM EDT 12/11/2014 7:58 AM EDT Narrative Resulting Agency Comment Spec In Lab Kimberly Mondragon MD IMMUNOLOGY ORDER AYO Performing Organization Address City/[facility] Co de Phone Number [facility] DEWAYNEENNIUM * CMV Antibody, IgG (12/10/2014 12:20 PM EDT) CMV IgG Neg Neg CERNER MILLENNIUM Blood specimen (specimen) 12/10/2014 12:20 PM EDT 12/11/2014 7:58 AM EDT Narrative Resulting Agency Comment Spec In Lab Kimberly Mondragon MD IMMUNOLOGY ORDER AYO Performing Organization Address City/[facility] Co de Phone Number [facility] DEWAYNEENNIUM * Prothrombin Time (12/10/2014 12:20 PM EDT) Prothrombin Time 13.4 12.0 - 15.0 sec CERNER MILLENNIUM Comment: Transfusion Committee Guidelines: INR less than 2.0, PTT less than OR equal to 43.5 seconds, or Fibrinogen greater than or equal to 100 mg/dl indicate adequate procoagulant activity for hemostasis in patients without underlying bleeding disorders. International Normalization Ratio 1.0 0.9 - 1.1 CERNER MILLENNIUM Blood specimen (specimen) 12/10/2014 12:20 PM EDT 12/10/2014 12:49 PM EDT Narrative Resulting Agency Comment Spec In Lab Kimberly Mondragon MD HEMATOLOGY ORDER AYO Performing Organization Address City/[facility]/ZIP Co de Phone Number [facility] * Direct antiglobulin test (12/10/2014 12:20 PM EDT) SRUTHI Poly Negative [facility] DEWAYNETUCS[facility] HOS[facility]ITALIUM Blood specimen (specimen) 12/10/2014 12:20 PM EDT 12/10/2014 12:39 PM EDT Narrative Resulting Agency Comment Spec In Lab Kimberly Mondragon MD BLOOD BANK LAB O RDERABLES Performing Organization Address [facility]/ZIP Co de Phone Number [facility] * Lactate Dehydrogenase (12/10/2014 12:20 PM EDT) Lactate Dehydrogenase 204 110 - 220 unit/L [facility] Blood specimen (specimen) 12/10/2014 12:20 PM EDT 12/10/2014 12:49 PM EDT Narrative Resulting Agency Comment Spec In Lab Kimberly Mondragon MD CHEMISTRY ORDERA BLES Performing Organization Address [facility] Co de Phone Number [facility] * Phosphorus (12/10/2014 12:20 PM EDT) Phosphorus 3.8 2.5 - 4.5 mg/dL [facility] Blood specimen (specimen) 12/10/2014 12:20 PM EDT 12/10/2014 12:49 PM EDT Narrative Resulting Agency Comment Spec In Lab Kimberly Mondragon MD CHEMISTRY ORDERA BLES Performing Organization Address [facility] Co de Phone Number [facility] * (ABNORMAL) Magnesium (12/10/2014 12:20 PM EDT) Magnesium 0.61(L) 0.69 - 1.07 mmol/L [facility] Blood specimen (specimen) 12/10/2014 12:20 PM EDT 12/10/2014 12:49 PM EDT Narrative Resulting Agency Comment Spec In Lab Kimberly Mondragon MD CHEMISTRY ORDERA LEANNA CERNER MILLENNIUM * (ABNORMAL) Comprehensive metabolic panel (non-fasting) (12/10/2014 12:20 PM EDT) Glucose 169 65 - 199 mg/dL CERNER MILLENNIUM Comment:Diabetes: >=200 mg/d L plus symptoms Blood Urea Nitrogen 28(H) 8 - 18 mg/dL CERNER MILLENNIUM Creatinine 1.01 0.70 - 1.20 mg/dL CERNER MILLENNIUM Comment: Please note that the pediatric reference intervals supplied above were not validated [place] [facility]. Results from pediatric patients should be interpreted in conjunction to the patient's age, height and muscle mass. Sodium 144 135 - 145 mmol/L CERNER MILLENNIUM Potassium 3.8 3.5 - 5.0 mmol/L CERNER MILLENNIUM Comment: Please note: ??Patients with WBC >100,000 may have falsely elevated Potassium levels. ??For accurate Potassium quantification in these patients send serum separator tube (gold top) for subsequent determinations. ??Contact the Clinical Chemistry Laboratory if there are any questions. Chloride 103 98 - 107 mmol/L CERNER MILLENNIUM Carbon Dioxide 28 22 - 31 mmol/L CERNER MILLENNIUM Anion Gap 13 5 - 15 mmol/L CERNER MILLENNIUM Calcium 9.7 8.5 - 10.5 mg/dL CERNER MILLENNIUM Protein, Total 6.4 6.1 - 8.0 gm/dL CERNER MILLENNIUM Albumin 4.3 3.2 - 5.2 gm/dL CERNER MILLENNIUM Aspartate Aminotransferase 24 0 - 30 unit/L CERNER MILLENNIUM Alanine Aminotransferase 29 0 - 30 unit/L CERNER MILLENNIUM Alkaline Phosphatase 80 40 - 104 unit/L CERNER MILLENNIUM Bilirubin, Total 0.4 0.2 - 1.3 mg/dL CERNER MILLENNIUM Bilirubin, Direct 0.1 0.0 - 0.3 mg/dL CERNER MILLENNIUM Est Glomerular Filtration Rate 56(L) >=60 CERNER MILLENNIUM Comment: This estimated GFR [...] the following links into your internet browser. [email or web address] Blood specimen (specimen) 12/10/2014 12:20 PM EDT 12/10/2014 12:49 PM EDT Narrative Resulting Agency Comment Spec In Lab Kimberly Mondragon MD CHEMISTRY ORDERA BLES Performing Organization Address [facility] Co de Phone Number [facility] * TSH (12/10/2014 12:20 PM EDT) Thyroid Stimulating Hormone 2.12 0.27 - 4.20 mcIU/mL [facility] Blood specimen (specimen) 12/10/2014 12:20 PM EDT 12/10/2014 12:49 PM EDT Narrative Resulting Agency Comment Spec In Lab Kimberly Mondragon MD CHEMISTRY ORDERA BLES Performing Organization Address [facility] Co de Phone Number [facility] * Varicella zoster Antibody, IgG (12/10/2014 12:20 PM EDT) Varicella Zoster Antibody IgG Pos [facility] Blood specimen (specimen) 12/10/2014 12:20 PM EDT 12/11/2014 7:58 AM EDT Narrative Resulting Agency Comment Spec In Lab Kimberly Mondragon MD IMMUNOLOGY ORDER AYO Performing Organization Address [facility] Co de Phone Number [facility] * HSV 1 and 2 IgG Antibodies (12/10/2014 12:20 PM EDT) HSV Type 1 Ab, IgG Neg Neg CERNER MILLENNIUM HSV Type 2 Ab, IgG Neg Neg CERNER MILLENNIUM Blood specimen (specimen) 12/10/2014 12:20 PM EDT 12/11/2014 7:58 AM EDT Narrative Resulting Agency Comment Spec In Lab Kimberly Mondragon MD IMMUNOLOGY ORDER AYO [facility]NEJ[facility] documented in this encounter Visit Diagnoses Diagnosis DLBCL (diffuse large B cell lymphoma) Other malignant lymphomas, unspecified site, extranodal and solid organ sites documented in this encounter Care Teams Porcelain Enamel Sprayer Relationship Specialty Start Date End Date Maine Dunn PA PCP - General 04/08/14 02/13/15 documented as of this encounter
--- OUTSIDE RECORDS SUMMARY | 2023-10-28 00:45 | XMS_ITS | Encounter Summary ---
Author Organization [facility] [place] [address] Care Team Providers Care Culinary Intern Name Role Phone Maine Dunn Primary Care Provider [phone] Reason for Visit * Auth/Cert - Closed Specialty Diagnoses / Procedures Referred By Perry cabrera Referred To Contact Diagnoses Diffuse large B-cell lymphoma, unspecified site [id number] CBV Procedures PRO BONE MARROW/STEM XPLANT, AUTOLOGOUS AUTOLOGOUS STEM CELL TRANSPLANT Referral ID Status Reason Start Date Expiration Date Visits Re quested Visits Authorized [id number] Closed 1 1 Encounter Details Date Type Department Care Team (Latest Contact Info) Description 12/17/2014 10:45 AM EST - 12/17/2014 1:52 PM EST Hospital Encounter Hematology [place] [address] Lymphoma; DLBCL (diffuse large B cell lymphoma) Discharge [...] Take 1 tablet by mouth daily. 12/25/2015 [place]-3 Fatty Acids-Vitamin E (FISH OIL) 1,000 mg CapsuleIndications:Lym phoma Take by mouth. 01/29/2015 Calcium 500 mg TabletIndications:Lymp fawn Take by mouth. 01/29/2015 Cholecalciferol, Vitamin D3, (VITAMIN D-3) 2,000 unit CapsuleIndications:Lym phoma Take 1,000 Units by mouth. 01/29/2015 escitalopram (LEXAPRO) 10 mg tablet 03/08/2005 01/03/2015 documented as of this encounter Progress Notes * Neyda Suresh RN - 12/17/2014 11:12 AM EST Patient Name: Myriam Vivas Patient Age: 64 y.o. Birthdate: 1950 Admit date: 12/17/2014 Attending Physician: No att. providers found Access visit. See MAR and/or flowsheet. documented in this encounter Plan of Treatment Upcoming Encounters Date Type Department Care Team (Late st Contact Info) Description 12/07/2023 12:00 PM EDT Office Visit Dermatology at [facility] [address] [place] [address] Juan F Chappell MD [facility] [address] [address] Scheduled Orders Name Type Priority Associated Diagnoses Orde r Schedule CBC (with Diff) Lab STAT DLBCL (diffuse large B cell lymphoma) 1 Occurrences starting 12/17/2014 until 12/17/2014 documented as of this encounter Procedures Procedure Name Priority Date/Time Associated Diagnosis Comments URINALYSIS WITH REFLEX CULTURE STAT 12/17/2014 11:10 AM EST Lymphoma URINE CULTURE STAT 12/17/2014 11:10 AM EST ABO/RH TYPING STAT 12/17/2014 11:05 AM EST Lymphoma ANTIBODY SCREEN STAT 12/17/2014 11:05 AM EST Lymphoma TYPE AND SCREEN (MC/CGP/MARTHA) STAT 12/17/2014 11:05 AM EST Lymphoma URIC ACID STAT 12/17/2014 11:05 AM EST Lymphoma LACTATE DEHYDROGENASE STAT 12/17/2014 11:05 AM EST Lymphoma COMPREHENSIVE METABOLIC PANEL STAT 12/17/2014 11:05 AM EST Lymphoma documented in this encounter Results * (ABNORMAL) Urine culture (12/17/2014 11:10 AM EST) Urine Culture 1,000-9,000 cfu/ml Gram Positive organisms , probable contaminant(A ) CERNER MILLENNIUM Urine specimen obtained by clean catch procedure (specimen) 12/17/2014 11:10 AM EST 12/17/2014 12:05 PM EST Narrative Resulting Agency Comment Spec In Lab Kimberly Mondragon MD MICROBIOLOGY - G ENERAL ORDERABLES CERNER MILLENNIUM * (ABNORMAL) Urinalysis with reflex Culture (12/17/2014 11:10 AM EST) Glucose, Urine Dipstick Negative Negative mg/dL CERNER [...] Negative Negative CERNER MILLENNIUM Leukocytes, Urine Dipstick Moderate(A) Negative mcL CERNER MILLENNIUM Appearance, Urine Dipstick Clear Clear CERNER MILLENNIUM Specific [place] Urine Automated 1.024 1.002 - 1.030 CERNER MILLENNIUM Color, Urine Dipstick Yellow Yellow CERNER MILLENNIUM RBC, Urine 1 0 - 4 /HPF CERNER MILLENNIUM WBC, Urine 8(H) 0 - 5 /HPF CERNER MILLENNIUM Squamous Epithelial Cells, Urine 1 <=4 /HPF CERNER MILLENNIUM Hyaline Casts, Urine 3(H) 0 - 2 /LPF GIBRAN GEEIUM Reflex to Culture Yes [facility] Urine specimen obtained by clean catch procedure (specimen) 12/17/2014 11:10 AM EST 12/17/2014 11:50 AM EST Narrative Resulting Agency Comment Spec In Lab Kimberly Mondragon MD URINE ORDERABLES Performing Organization Address [facility] Co de Phone Number GIBRAN COREAS * Antibody screen (12/17/2014 11:05 AM EST) Ab Screen Interp Negative [facility] Expires at [id number] on: 12/20/2014 GIBRAN COREAS Blood specimen (specimen) 12/17/2014 11:05 AM EST 12/17/2014 11:57 AM EST Narrative Resulting Agency Comment Spec In Lab Kimberly Mondragon MD BLOOD BANK LAB O RDERABLES Performing Organization Address [facility] Co de Phone Number GIBRAN COREAS * ABO/Rh Typing (12/17/2014 11:05 AM EST) ABORH Type B Pos GIBRAN COREAS Blood specimen (specimen) 12/17/2014 11:05 AM EST 12/17/2014 11:57 AM EST Narrative Resulting Agency Comment Spec In Lab Kimberly Mondragon MD BLOOD BANK LAB O RDERABLES Performing Organization Address [facility] Co de Phone Number GIBRAN COREAS * Uric acid (12/17/2014 11:05 AM EST) Uric Acid 4.0 2.5 - 6.5 mg/dL GIBRAN COREAS Blood specimen (specimen) 12/17/2014 11:05 AM EST 12/17/2014 11:49 AM EST Narrative Resulting Agency Comment Spec In Lab Kimberly Mondragon MD CHEMISTRY ORDERA BLES CERNER MILLENNIUM * Lactate Dehydrogenase (12/17/2014 11:05 AM EST) Lactate Dehydrogenase 203 110 - 220 unit/L CERNER MILLENNIUM Blood specimen (specimen) 12/17/2014 11:05 AM EST 12/17/2014 11:49 AM EST Narrative Resulting Agency Comment Spec In Lab Kimberly Mondragon MD CHEMISTRY ORDERA LEANNA CERNER DEWAYNEENNIUM * (ABNORMAL) Comprehensive metabolic panel (non-fasting) (12/17/2014 11:05 AM EST) Glucose 143 65 - 199 mg/dL CERNER MILLENNIUM Comment:Diabetes: >=200 mg/d L plus symptoms Blood Urea Nitrogen 24(H) 8 - 18 mg/dL CERNER MILLENNIUM Creatinine 1.06 0.70 - 1.20 mg/dL CERNER MILLENNIUM Comment: Please note that the pediatric reference intervals supplied above were not validated at [facility]. Results from pediatric patients should be interpreted in conjunction to the patient's age, height and muscle mass. Sodium 141 135 - 145 mmol/L CERNER MILLENNIUM Potassium 4.2 3.5 - 5.0 mmol/L CERNER MILLENNIUM Comment: Please note: ??Patients with WBC >100,000 may have falsely elevated Potassium levels. ??For accurate Potassium quantification in these patients send serum separator tube (gold top) for subsequent determinations. ??Contact the Clinical Chemistry Laboratory if there are any questions. Chloride 102 98 - 107 mmol/L CERNER MILLENNIUM Carbon Dioxide 27 22 - 31 mmol/L CERNER MILLENNIUM Anion Gap 12 5 - 15 mmol/L CERNER MILLENNIUM Calcium 9.5 8.5 - 10.5 mg/dL CERNER MILLENNIUM Protein, Total 6.6 6.1 - 8.0 gm/dL CERNER MILLENNIUM Albumin 4.3 3.2 - 5.2 gm/dL CERNER MILLENNIUM Aspartate Aminotransferase 28 0 - 30 unit/L CERNER MILLENNIUM Alanine Aminotransferase 39(H) 0 - 30 unit/L CERNER MILLENNIUM Alkaline Phosphatase 93 40 - 104 unit/L CERNER MILLENNIUM Bilirubin, Total 0.4 0.2 - 1.3 mg/dL CERNER MILLENNIUM Bilirubin, Direct 0.1 0.0 - 0.3 mg/dL CERNER MILLENNIUM Est Glomerular Filtration Rate 53(L) >=60 CERNER MILLENNIUM Comment: This estimated GFR [...] the following links into your internet browser. [email or web address] [email or web address] Blood specimen (specimen) 12/17/2014 11:05 AM EST 12/17/2014 11:49 AM EST Narrative Resulting Agency Comment Spec In Lab Kimberly Mondragon MD CHEMISTRY ORDERA BLES [facility] [place] documented in this encounter Visit Diagnoses Diagnosis [...] Rate Site sodium chloride 0.9 % flush 10 mL 10 mL, Intravenous, DAILY PRN, Starting on Tue12/17/14 at 1054, Until Tue12/18/14 at 0436, for the accessing and continued maintenance of an Implantable Port device, Routine Given 12/17/2014 11:12 AM EST 10 mLs documented in this encounter Care Teams Culinary Intern Relationship Specialty Start Date End Date Maine Dunn PA PCP - General 04/08/14 02/13/15 documented as of this encounter
--- OUTSIDE RECORDS SUMMARY | 2023-10-28 00:45 | XMS_ITS | Encounter Summary ---
Author Organization [facility] Address [facility] [place] [address] Care Team Providers Care Jury Consultant Name Role Phone Maine Dunn Primary Care Provider [phone] Encounter Details Date Type Department Care Team (Late st Contact Info) Description 12/10/2014 12:30 PM EDT - 12/10/2014 11:59 PM EDT Hospital Encounter XRay at [address] [place] [address] [facility] HEMATOLOGY [place] [address] DLBCL (diffuse large B cell lymphoma) Discharge [...] Take 1 tablet by mouth daily. 12/25/2015 [place]-3 Fatty Acids-Vitamin E (FISH OIL) 1,000 mg [...] [facility] [address] [place] [address] Juan F Chappell MD [facility] [address] [address] documented as of this encounter Procedures Procedure Name Priority Date/Time Associated Diagnosis Comments INFECTIOUS DISEASE SERO PANEL Routine 12/12/2014 2:38 PM EDT XR CHEST PA AND LATERAL Routine 12/10/2014 12:51 PM EDT DLBCL (diffuse large B cell lymphoma) documented in this encounter Results * Infectious Disease Sero Panel (12/12/2014 2:38 PM EDT) Sero Panel Patient: Myriam Vivas Date of : 1950 Identification Number: [id number] Date Sample Drawn: 12/10/2014 The following serological tests were performed: ABO/Rh type = B Positive Antibody Screen= Negative ?[Ref Value: Negative] Hepatitis B Core Antibody = Negative ? [Ref Value: Negative] Hepatitis B Surface Antigen = Negative ?? [Ref Value: Negative] Hepatitis C Virus = Negative ? [Ref Value: Negative] HIV 1/2 Antibody = Negative ?[Ref Value: Negative] HTLV I/II Antibody = Negative ?[Ref Value: Negative] GLENN Multiplex = Negative ? [Ref Value: Negative] Syphilis Serology = Negative ? [Ref Value: Non-reactive] West Nile Virus GLENN = Negative ? [Ref Value: Negative] [place]ag[place] Antibody = Negative ? [Ref Value: Negative] CMV Antibody = Negative ?[Ref Value: Negative] All testing was performed by: [employer] [address] [place] [address] CLIA ID Number: [id number] EMIRDANIA BUCHANANTREVON Blood specimen (specimen) Other / Unknown 12/12/2014 2:38 PM EDT 12/12/2014 2:48 PM EDT Narrative Resulting Agency Comment Spec In Lab Kimberly Mondragon MD BLOOD BANK LAB O RDERABLES GIBRAN COREAS * XR Chest Routine PA & Lateral (12/10/2014 12:51 PM EDT) Anatomical Region Laterality Modality Chest N/A Digital Radiogra phy Impressions 12/10/2014 1:40 PM EDT IMPRESSION: No active cardiopulmonary pathology identified. Narrative 12/10/2014 1:40 PM EDT EXAMINATION: XR CHEST ROUTINE PA AND LATERAL CLINICAL HISTORY: pre-transplant eval, DLBCL, PET neg, needs auto transplant TECHNIQUE: PA and lateral views of the chest. ? COMPARISON: 10/24/2014. FINDINGS: Resolved pleural effusions. Clear lungs. Reports atelectasis catheter tip in unchanged position. The cardiomediastinal silhouette, carlo, and pulmonary vessels are within normal limits. No significant osseous findings are seen. Procedure Note Kalie Solorzano MD - 12/10/2014 EXAMINATION: XR CHEST ROUTINE PA AND LATERAL CLINICAL HISTORY: pre-transplant eval, DLBCL, PET neg, needs autotransplant TECHNIQUE: PA and lateral views of the chest. COMPARISON: 10/24/2014. FINDINGS: Resolved pleural effusions. Clear lungs. Reports atelectasiscatheter tip in unchanged position. The cardiomediastinal silhouette, carlo, andpulmonary vessels are within normal limits. No significant osseous findings areseen. IMPRESSION IMPRESSION: No active cardiopulmonary pathology identified. Kimberly Mondragon MD IMG DX ORDERABLE S documented in this encounter Visit Diagnoses Diagnosis DLBCL (diffuse large B cell lymphoma) Other malignant lymphomas, unspecified site, extranodal and solid organ sites documented in this encounter Care Teams Jury Consultant Relationship Specialty Start Date End Date Maine Dunn PA PCP - General 04/08/14 02/13/15 documented as of this encounter
--- OUTSIDE RECORDS SUMMARY | 2023-10-28 00:45 | XMS_ITS | Encounter Summary ---
[place] [address] Care Team Providers Care Soap Inspector Name Role Phone Maine Dunn Primary Care Provider [phone] Reason for Referral * Diagnostic Test (Routine) - Closed Specialty Diagnoses / Procedures Referred By Contac t Referred To Contact Hematology and Oncology Diagnoses DLBCL (diffuse large B cell lymphoma) Procedures Echocardiogram Transthoracic(Leb) Светлана Boone RN [facility] [place] [facility] [address] [place] [phone] Referral ID Status Reason Start Date Expiration Date V isits Requested Visits Authorized [id number] Closed Specialty Service Requested 12/09/2014 12/09/2015 1 1 Reason for Visit * Diagnostic Test (Routine) - Closed Specialty Diagnoses / Procedures Referred By Contac t Referred To Contact Hematology and Oncology Diagnoses DLBCL (diffuse large B cell lymphoma) Procedures Echocardiogram Transthoracic(Leb) Светлана Boone RN [facility] [place] [facility] [address] [place] [phone] Referral ID Status Reason Start Date Expiration Date V isits Requested Visits Authorized [id number] Closed Specialty Service Requested 12/09/2014 12/09/2015 1 1 Encounter Details Date Type Department Care Team (Late st Contact Info) Description 12/10/2014 9:30 AM EDT - 12/10/2014 9:40 AM EDT Hospital Encounter Non-Invasive Cardiology Lab [facility] [place] [address] Kimberly Mondragon MD [facility] HEMATOLOGY [place] [address] DLBCL (diffuse large B cell lymphoma) Discharge [...] Take 1 tablet by mouth daily. 12/25/2015 [facility]-3 Fatty Acids-Vitamin E (FISH OIL) 1,000 mg [...] Dermatology at [facility] [address] [place] [address] Juan F Chappell MD [facility] [place] [address] documented as of this encounter Procedures Procedure Name Priority Date/Time Associated Diagnosis Comments ECHO COMPLETE Routine 12/10/2014 10:17 AM EDT DLBCL (diffuse large B cell lymphoma) documented in this encounter Results * ECHO COMPLETE (12/10/2014 10:17 AM EDT) EF 63 HEARTLAB SYSTEM Anatomical Region Laterality Modality Other 12/10/2014 Narrative 12/10/2014 11:47 AM EDT Procedure: ?Transthoracic Echocardiogram Patient: ?AP Campuzano ? (Age): 1950(64y) Med Rec#: ? [id number] ?Sex: ?F ? Site Loc: ? [facility] ?Ht / Wt: ??157(cm)/68(kg) Pt. Loc: ?Echo Lab ?BSA: ?1.69 Study Date: ?? 12/10/2014 ?Pt. Type: Outpatient Tape: ? Referring: Kimberly Mondragon Reading: Pasha Duarte ([id number]) Seo Engineer: Christiana Ulrich [facility] Interpreting Fellow: Aram Ordonez Diagnosis: *ICD-10-PCS Neoplasm of unspecified behavior of unspecified site (D49.9) *Neoplasm of Uncertain Behavior of other Specified Sites (238.8) CPT Codes: *Echo Full (57854) *Spectral Doppler (50322) *Color Doppler (08210) Indication: ?? F/U Chemotherapy Rhythm: ? Sinus BP: ? 125/45 HR: ? 91 SUMMARY: 1. The left ventricular chamber size is normal. ??Left ventricular wall thickness is normal. ??There is normal global left ventricular systolic function (GLS -18%). ??The quantitative left ventricular ejection fraction by biplane Gallardo's method is 63%. ??There are no left ventricular segmental wall motion abnormalities. ??Doppler assessment is consistent with normal left sided filling pressure. 2. Right ventricular chamber size, wall thickness, and systolic function are within normal limits. ??Pulmonary artery hypertension could not be assessed due to inadequate tricuspid regurgitation jet. 3. There is no hemodynamically significant valve disease. 4. There is no significant change in LVEF compared to prior studies on 09/2014 and 03/2014. ?? 5. See remainder of report for additional findings. FINDINGS: ? Left Ventricle ?The left ventricular chamber size is normal. ?Left ventricular wall thickness is normal. ?No ventricular septal defect is visualized. ?There is normal global left ventricular systolic function. GLS -18%. ?The quantitative left ventricular ejection fraction by biplane Gallardo's method is 63%. ?The quantitative left ventricular ejection fraction by 3-D rendering is 65%. ?There are no left ventricular segmental wall motion abnormalities. ?Doppler assessment is consistent with normal left sided filling pressure. Left Atrium ?The left atrium is normal in size. 24 ml/m2. ?No atrial septal defect is visualized. Right Ventricle ?Right ventricular chamber size, wall thickness, and systolic function are within normal limits. ?Pulmonary artery hypertension could not be assessed due to inadequate tricuspid regurgitation jet. Right Atrium ?The right atrium is normal in size. Aortic Valve ?The aortic valve is trileaflet. The leaflets are thin with normal excursion. There is no aortic stenosis or regurgitation present. Mitral Valve ?The mitral valve leaflets are mildly thickened. ?There is trace mitral regurgitation present. Tricuspid Valve ?The tricuspid valve appears normal in structure and function. ?There is trace tricuspid regurgitation present. Pulmonic Valve ?The pulmonic valve is not well visualized. ?There is trace pulmonic regurgitation present. Pericardium ?The pericardium appears normal and there is no evidence of a pericardial effusion. Aorta ?The aortic root is normal in size. ?The ascending aorta is normal in size. Pulmonary Artery ?The main pulmonary artery appears normal. Venous ?The inferior vena cava appears normal in size. ?There is a greater than 50% respiratory change in the inferior vena cava dimension. Misc ?There is no hemodynamically significant valve disease. ?See remainder of report for additional findings. ?Two-dimensional echo, spectral Doppler and color Doppler performed. ?Three-dimensional echocardiogram performed. ?JOSE LUIS performed Chambers 2D ?Value ?Units (Range) ? IVSd (2D) ? 1 ?cm ? LVPWd (2D) ?1 ?cm ? IVS:LVPW ratio (2D) 0.9 ?ratio ? LVIDd (2D) ?4.1 ?cm ? LVIDs (2D) ?2.7 ?cm ? LVIDd (2D) index ?2.4 ?cm/m2 ? LVIDs (2D) index ?1.6 ?cm/m2 ? LV FS (2D) ?34 ? % ? EF Teichholz (2D) ?? 63 ? % ? Ao root diameter (2D2.9 ?cm (2.1 - 3.6) ? Ascending Ao ?2.7 ?cm (2 - 3.5) ? Volumes/Mass ?Value ?Units (Range) ? LA Area 4 CH ?13 ? cm2 (<21) ? LA ESV BP (A/L) inde23.8 ? ml/m2 ? RA AREA 4CH ? 12 ? cm2 ? LA ESV SP 4CH (MOD) 30.5 ? ml ? LA ESV SP 2CH (MOD) 45.6 ? ml ? LA ESV BP (MOD) inde24 ? ml/m2 ? LV ESV SP 4CH (MOD) 39.4 ? ml ? LV ESV SP 2CH (MOD) 25.2 ? ml ? LV EDV BP ? 86.4 ? ml ? LV ESV BP ? 31.7 ? ml ? BP EF (MOD) ? 63 ? % ? 3D LVEF ? 65 ? % ? 3D EDV ?97 ? ml ? 3D ESV ?34 ? ml ? Global Longiitudinal-18 ?% (-19.7 - 0.28) ? LV mass (2D) ?130.2 ?g ? LV mass (2D) index ??77.1 ? g/m2 ? Diastolic/Systolic Function ?Value ?Units (Range) ? MV E-wave Vmax ?0.6 ?m/sec ? MV deceleration [id number] ?msec ? MV A-wave Vmax ?0.8 ?m/sec ? MV E:A ratio ?0.7 ?ratio ? LV septal e' Vmax ?? 0.1 ?m/sec ? LV E:e' septal ratio12.4 ? ratio ? Measurement Trending Name ? 12/10/2014 ? LV EDV BP ?86.41 LVIDd (2D) ? 4.09 LV ESV BP ?31.74 LVIDs (2D) ? 2.7 Wall Motion: Segment Name ?Rest ? Base-Anteroseptal ?? Normal ? Base-Anterior ? Normal ? Base-Anterolateral ??Normal ? Base-Posterolateral Normal ? Base-Inferior ? Normal ? Base-Inferoseptal ?? Normal ? Mid-Anteroseptal ?Normal ? Mid-Anterior ?Normal ? Mid-Anterolateral ?? Normal ? Mid-Posterolateral ??Normal ? Mid-Inferior ?Normal ? Mid-Inferoseptal ?Normal ? [place]-Septal ? Normal ? [place]-Anterior ? Normal ? [place]-Lateral ?Normal ? [place]-Inferior ? Normal ? [place]-Tip ?Normal ? This report has been electronically signed by: Pasha Duarte MD ? 12/10/2014 11:46:58 Images reviewed and interpretation verified [facility] Cardiac [facility]trasound [facility] Procedure Note Pasha Duarte MD - 12/10/2014 Procedure: Transthoracic Echocardiogram Patient: AP Campuzano (Age): 1950(64y) Med Rec#: [id number] Sex: F Site Loc: [facility] Ht / Wt: 157(cm)/68(kg) Pt. Loc: Echo Lab BSA: 1.69 Study Date: 12/10/2014 Pt. Type: Outpatient Tape: Referring: Kimberly Mondragon Reading: Pasha Duarte ([id number]) Seo Engineer: Christiana Ulrich [facility] Interpreting Fellow: Aram Ordonez Diagnosis: *ICD-10-PCS Neoplasm of unspecified behavior of unspecified site (D49.9) *Neoplasm of Uncertain Behavior of other Specified Sites (238.8) CPT Codes: *Echo Full (84786) *Spectral Doppler (80951) *Color Doppler (37576) Indication: F/U Chemotherapy Rhythm: Sinus BP: 125/45 HR: 91 SUMMARY: 1. The left ventricular chamber size is normal. Left ventricular wall thickness is normal. There is normal global left ventricular systolic function (GLS -18%). The quantitative left ventricular ejection fraction by biplane Gallardo's method is 63%. There are no left ventricular segmental wall motion abnormalities. Doppler assessment is consistent with normal left sided filling pressure. 2. Right ventricular chamber size, wall thickness, and systolic function are within normal limits. Pulmonary artery hypertension could not be assessed due to inadequate tricuspid regurgitation jet. 3. There is no hemodynamically significant valve disease. 4. There is no significant change in LVEF compared to prior studies on 09/2014 and 03/2014. 5. See remainder of report for additional findings. FINDINGS: Left Ventricle The left ventricular chamber size is normal. Left ventricular wall thickness is normal. No ventricular septal defect is visualized. There is normal global left ventricular systolic function. GLS -18%. The quantitative left ventricular ejection fraction by biplane Gallardo's method is 63%. The quantitative left ventricular ejection fraction by 3-D rendering is 65%. There are no left ventricular segmental wall motion abnormalities. Doppler assessment is consistent with normal left sided filling pressure. Left Atrium The left atrium is normal in size. 24 ml/m2. No atrial septal defect is visualized. Right Ventricle Right ventricular chamber size, wall thickness, and systolic function are within normal limits. Pulmonary artery hypertension could not be assessed due to inadequate tricuspid regurgitation jet. Right Atrium The right atrium is normal in size. Aortic Valve The aortic valve is trileaflet. The leaflets are thin with normal excursion. There is no aortic stenosis or regurgitation present. Mitral Valve The mitral valve leaflets are mildly thickened. There is trace mitral regurgitation present. Tricuspid Valve The tricuspid valve appears normal in structure and function. There is trace tricuspid regurgitation present. Pulmonic Valve The pulmonic valve is not well visualized. There is trace pulmonic regurgitation present. Pericardium The pericardium appears normal and there is no evidence of a pericardial effusion. Aorta The aortic root is normal in size. The ascending aorta is normal in size. Pulmonary Artery The main pulmonary artery appears normal. Venous The inferior vena cava appears normal in size. There is a greater than 50% respiratory change in the inferior vena cava dimension. Misc There is no hemodynamically significant valve disease. See remainder of report for additional findings. Two-dimensional echo, spectral Doppler and color Doppler performed. Three-dimensional echocardiogram performed. JOSE LUIS performed Chambers 2D Value Units (Range) IVSd (2D) 1 cm LVPWd (2D) 1 cm IVS:LVPW ratio (2D) 0.9 ratio LVIDd (2D) 4.1 cm LVIDs (2D) 2.7 cm LVIDd (2D) index 2.4 cm/m2 LVIDs (2D) index 1.6 cm/m2 LV FS (2D) 34 % EF Teichholz (2D) 63 % Ao root diameter (2D2.9 cm (2.1 - 3.6) Ascending Ao 2.7 cm (2 - 3.5) Volumes/Mass Value Units (Range) LA Area 4 CH 13 cm2 (<21) LA ESV BP (A/L) inde23.8 ml/m2 RA AREA 4CH 12 cm2 LA ESV SP 4CH (MOD) 30.5 ml LA ESV SP 2CH (MOD) 45.6 ml LA ESV BP (MOD) inde24 ml/m2 LV ESV SP 4CH (MOD) 39.4 ml LV ESV SP 2CH (MOD) 25.2 ml LV EDV BP 86.4 ml LV ESV BP 31.7 ml BP EF (MOD) 63 % 3D LVEF 65 % 3D EDV 97 ml 3D ESV 34 ml Global Longiitudinal-18 % (-19.7 - 0.28) LV mass (2D) 130.2 g LV mass (2D) index 77.1 g/m2 Diastolic/Systolic Function Value Units (Range) MV E-wave Vmax 0.6 m/sec MV deceleration [id number] msec MV A-wave Vmax 0.8 m/sec MV E:A ratio 0.7 ratio LV septal e' Vmax 0.1 m/sec LV E:e' septal ratio12.4 ratio Measurement Trending Name 12/10/2014 LV EDV BP 86.41 LVIDd (2D) 4.09 LV ESV BP 31.74 LVIDs (2D) 2.7 Wall Motion: Segment Name Rest Base-Anteroseptal Normal Base-Anterior Normal Base-Anterolateral Normal Base-Posterolateral Normal Base-Inferior Normal Base-Inferoseptal Normal Mid-Anteroseptal Normal Mid-Anterior Normal Mid-Anterolateral Normal Mid-Posterolateral Normal Mid-Inferior Normal Mid-Inferoseptal Normal [place]-Septal Normal [place]-Anterior Normal [place]-Lateral Normal [place]-Inferior Normal [place]-Tip Normal This report has been electronically signed by: Pasha Duarte MD 12/10/2014 11:46:58 Images reviewed and interpretation verified [facility] Kimberly Mondragon MD ECHO ORDERABLES documented in this encounter Visit Diagnoses Diagnosis DLBCL (diffuse large B cell lymphoma) Other malignant lymphomas, unspecified site, extranodal and solid organ sites documented in this encounter Care Teams Soap Inspector Relationship Specialty Start Date End Date Maine Dunn PA PCP - General 04/08/14 02/13/15 documented as of this encounter
--- OUTSIDE RECORDS SUMMARY | 2023-10-28 00:45 | XMS_ITS | Encounter Summary ---
Author Organization [facility] [place] [address] Care Team Providers Care Digital Production Artist Name Role Phone Maine Dunn Primary Care Provider [phone] Reason for Referral * Diagnostic Test (Routine) - Closed Specialty Diagnoses / Procedures Referred By Perry cabrera Referred To Contact Hematology and Oncology Diagnoses DLBCL (diffuse large B cell lymphoma) Procedures Echocardiogram Transthoracic(Leb) Светлана Boone RN [facility] [address] [place] [address] Referral ID Status Reason Start Date Expiration Date V isits Requested Visits Authorized [id number] Closed Specialty Service Requested 12/09/2014 12/09/2015 1 1 Encounter Details Date Type Department Care Team (Late st Contact Info) Description 12/04/2014 Orders Only [place]ology [place] [address] Светлана Boone RN DLBCL (diffuse large B cell lymphoma) Social [...] 12:00 PM EDT Office Visit Dermatology at [facility] [address] [place] [phone] Juan F Chappell MD [facility] [place] [address] documented as of this encounter Results * XR Chest Routine PA & Lateral [...] Kimberly Mondragon MD IMG DX ORDERABLE S * Urinalysis with reflex Culture (12/10/2014 12:20 [...] Urine Dipstick Clear Clear CERNER MILLENNIUM Specific [place] Urine Automated 1.025 1.002 - 1.030 CERNER [...] Mondragon MD URINE ORDERABLES Performing Organization Address City/[facility] Co de Phone Number CERNER MILLENNIUM * Toxoplasma Antibody, IgG (12/10/2014 12:20 PM EDT) Toxoplasma Antibody IgG Neg Neg CERNER MILLENNIUM Blood specimen (specimen) 12/10/2014 12:20 PM EDT 12/11/2014 7:58 AM EDT Narrative Resulting Agency Comment Spec In Lab Kimberly Mondragon MD IMMUNOLOGY ORDER AYO [facility] * (ABNORMAL) Kimberly-Wooten Virus Antibodies (12/10/2014 12:20 PM EDT) EBV (VCA) IgG Ab Pos(A) Neg CER NER MILLENNIUM EBV (VCA) IgM Ab Neg Neg CER NER MILLENNIUM EBNA Antibodies Pos(A) Neg CERN ER MILLENNIUM EBV Interpretation Results suggest past infection. CERNER [facility] Comment: In most populations, at least 90% [...] Narrative Resulting Agency Comment Spec In Lab Kibmerly Mondragon MD IMMUNOLOGY ORDER AYO Performing Organization Address [facility] Co de Phone Number [facility] * CMV Antibody, IgM (12/10/2014 12:20 PM EDT) CMV IgM Neg Neg [facility] Blood specimen (specimen) 12/10/2014 12:20 PM EDT 12/11/2014 7:58 AM EDT Narrative Resulting Agency Comment Spec In Lab Kimberly Mondrgaon MD IMMUNOLOGY ORDER AYO Performing Organization Address City/[facility] Co de Phone Number [facility] * CMV Antibody, IgG (12/10/2014 12:20 PM EDT) CMV IgG Neg Neg [facility] Blood specimen (specimen) 12/10/2014 12:20 PM EDT 12/11/2014 7:58 AM EDT Narrative Resulting Agency Comment Spec In Lab Kimberly Mondragon MD IMMUNOLOGY ORDER AYO Performing Organization Address City/[facility] Co de Phone Number [facility] * Prothrombin Time (12/10/2014 12:20 PM EDT) Prothrombin Time 13.4 12.0 - 15.0 sec [facility] Comment: Transfusion Committee Guidelines: INR less than 2.0, PTT less than OR equal to 43.5 seconds, or Fibrinogen greater than or equal to 100 mg/dl indicate adequate procoagulant activity for hemostasis in patients without underlying bleeding disorders. International Normalization Ratio 1.0 0.9 - 1.1 [facility] Blood specimen (specimen) 12/10/2014 12:20 PM EDT 12/10/2014 12:49 PM EDT Narrative Resulting Agency Comment Spec In Lab Kimberly Mondragon MD HEMATOLOGY ORDER AYO Performing Organization Address [facility] de Phone Number [facility] * Direct antiglobulin test (12/10/2014 12:20 PM EDT) SRUTHI Poly Negative [facility] Blood specimen (specimen) 12/10/2014 12:20 PM EDT 12/10/2014 12:39 PM EDT Narrative Resulting Agency Comment Spec In Lab Kimberly Mondragon MD BLOOD BANK LAB O RDERABLES Performing Organization Address [facility] de Phone Number [facility] * Lactate Dehydrogenase (12/10/2014 12:20 PM EDT) Pathologist [facility] Lactate Dehydrogenase 204 110 - 220 unit/L [facility] Blood specimen (specimen) 12/10/2014 12:20 PM EDT 12/10/2014 12:49 PM EDT Narrative Resulting Agency Comment Spec In Lab Kimberly Mondragon MD CHEMISTRY ORDERA BLES Performing Organization Address [facility] de Phone Number [facility] * Phosphorus (12/10/2014 12:20 PM EDT) Phosphorus 3.8 2.5 - 4.5 mg/dL [facility] Blood specimen (specimen) 12/10/2014 12:20 PM EDT 12/10/2014 12:49 PM EDT Narrative Resulting Agency Comment Spec In Lab Kimberly Mondragon MD CHEMISTRY ORDERA BLES CERNER MILLENNIUM * (ABNORMAL) Magnesium (12/10/2014 12:20 PM EDT) Magnesium 0.61(L) 0.69 - 1.07 mmol/L CERNER MILLENNIUM Blood specimen (specimen) 12/10/2014 12:20 PM EDT 12/10/2014 12:49 PM EDT Narrative Resulting Agency Comment Spec In Lab Kimberly Mondragon MD CHEMISTRY ORDERA BLES Performing Organization Address [facility] Co de Phone Number CERNER MILLENNIUM * (ABNORMAL) Comprehensive metabolic panel (non-fasting) (12/10/2014 12:20 PM EDT) Glucose 169 65 - 199 mg/dL CERNER MILLENNIUM Comment:Diabetes: >=200 mg/d L plus symptoms Blood Urea Nitrogen 28(H) 8 - 18 mg/dL CERNER MILLENNIUM Creatinine 1.01 0.70 - 1.20 mg/dL CERNER MILLENNIUM Comment: Please note that the pediatric reference intervals supplied above were not validated at [facility]. Results from pediatric [...] the following links into your internet browser. [email or web address] Blood specimen (specimen) 12/10/2014 12:20 PM EDT 12/10/2014 12:49 PM EDT Narrative Resulting Agency Comment Spec In Lab Kimberly Mondragon MD CHEMISTRY ORDERA BLES [facility] * TSH (12/10/2014 12:20 PM EDT) Thyroid Stimulating Hormone 2.12 0.27 - 4.20 mcIU/mL CERNER MILLENNIUM Blood specimen (specimen) 12/10/2014 12:20 PM EDT 12/10/2014 12:49 PM EDT Narrative Resulting Agency Comment Spec In Lab Kimberly Mondragon MD CHEMISTRY ORDERA BLES [facility] * Varicella zoster Antibody, IgG (12/10/2014 12:20 PM EDT) Varicella Zoster Antibody IgG Pos CERNER MILLENNIUM Blood specimen (specimen) 12/10/2014 12:20 PM EDT 12/11/2014 7:58 AM EDT Narrative Resulting Agency Comment Spec In Lab Kimberly Mondragon MD IMMUNOLOGY ORDER AYO Performing Organization Address City/[facility]/ZIP Co de Phone Number [facility] * HSV 1 and 2 IgG Antibodies (12/10/2014 12:20 PM EDT) HSV Type 1 Ab, IgG Neg Neg CERNER MILLENNIUM HSV Type 2 Ab, IgG Neg Neg CERNER MILLENNIUM Blood specimen (specimen) 12/10/2014 12:20 PM EDT 12/11/2014 7:58 AM EDT Narrative Resulting Agency Comment Spec In Lab Kimberly Mondragon MD IMMUNOLOGY ORDER AYO Performing Organization Address [facility] de Phone Number [facility] * Pulmonary Function Testing (12/10/2014 11:34 AM EDT) Narrative Efren Warner MD - 12/10/2014 11:34 AM EDT Efren Warner MD ? 12/10/2014 11:34 AM FEV1, FVC, and FEV1/FVC are normal. ??Diffusing capacity uncorrected for hemoglobin is reduced. ??Oxygen saturation on room air at rest is normal. Impression: ??Normal spirometry. ??The isolated reduction in diffusing capacity is a non-specific finding consistent with a variety of cardiopulmonary disorders as well as anemia. Kimberly Mondragon MD PFT ORDERABLES * EKG 12 Lead (12/10/2014 10:26 AM EDT) Ventricular rate 78 BPM MUSE SYSTEM Atrial Rate 78 BPM MUSE SYSTEM P-R Interval 144 ms MUSE SYSTEM QRS Duration 78 ms MUSE SYSTEM Q-T Interval 382 ms MUSE SYSTEM QTC Calculated (Bezet) 435 ms MUSE SYSTEM Calculated P [place] 50 degrees MUSE SYSTEM Calculated R [place] 0 degrees MUSE SYSTEM Calculated T [place] 33 degrees MUSE SYSTEM INTERPRETATION Normal sinus rhythm Normal ECG No previous ECGs available Confirmed by MD Pablito, Rob ([id number]) on 12/10/2014 1:40:04 PM MUSE SYSTEM 12/10/2014 10:2 6 AM EDT 12/10/2014 1:40 PM EDT Kimberly Mondragon MD ECG ORDERABLES MUSE SYSTEM * ECHO COMPLETE (12/10/2014 10:17 AM EDT) EF 63 HEARTLAB SYSTEM Anatomical Region Laterality Modality Other 12/10/2014 Narrative 12/10/2014 11:47 AM EDT Procedure: ?Transthoracic Echocardiogram Patient: ?AP Campuzano ? (Age): 1950(64y) Med Rec#: ? [id number] ?Sex: ?F ? Site Loc: ? [facility] ?Ht / Wt: ??157(cm)/68(kg) Pt. Loc: ?Echo Lab ?BSA: ?1.69 Study Date: ?? 12/10/2014 ?Pt. Type: Outpatient Tape: ? Referring: Kimberly Mondragon Reading: Pasha Duarte ([id number]) Heater Planer Operator: Christiana Ulrich RDCS Interpreting Fellow: Aram Ordonez Diagnosis: *ICD-10-PCS Neoplasm of unspecified behavior of unspecified site (D49.9) *Neoplasm of Uncertain Behavior of other Specified Sites (238.8) CPT Codes: *Echo Full (12057) *Spectral Doppler (73154) *Color Doppler (31506) Indication: ?? F/U Chemotherapy Rhythm: ? Sinus [...] E-wave Vmax ?0.6 ?m/sec ? MV deceleration [id number] ?msec ? MV A-wave Vmax ?0.8 ?m/sec [...] ? Mid-Inferior ?Normal ? Mid-Inferoseptal ?Normal ? [place]-Septal ? Normal ? [place]-Anterior ? Normal ? [place]-Lateral ?Normal ? [place]-Inferior ? Normal ? [place]-Tip ?Normal ? This report has been electronically signed by: Pasha Duarte MD ? 12/10/2014 11:46:58 Images reviewed and interpretation verified [facility] Cardiac Ultrasound Laboratory Procedure Note Pasha Duarte MD - 12/10/2014 Procedure: Transthoracic Echocardiogram Patient: AP GALVEZ(Age): 1950(64y) Med Rec#: [id number] Sex: F Site Loc: [facility] Ht / Wt: 157(cm)/68(kg) Pt. Loc: Echo Lab BSA: 1.69 Study Date: 12/10/2014 Pt. Type: Outpatient Tape: Referring: Kimberly Mondragon Reading: Pasha Duarte ([id number]) Heater Planer Operator: Christiana Ulrich RDCS Interpreting Fellow: Aram Ordonez Diagnosis: *ICD-10-PCS Neoplasm of unspecified behavior of unspecified site (D49.9) *Neoplasm of Uncertain Behavior of other Specified Sites (238.8) CPT Codes: *Echo Full (81333) *Spectral Doppler (49926) *Color Doppler (59269) Indication: F/U Chemotherapy Rhythm: Sinus BP: 125/45 [...] MV E-wave Vmax 0.6 m/sec MV deceleration [id number] msec MV A-wave Vmax 0.8 m/sec MV [...] Normal Mid-Posterolateral Normal Mid-Inferior Normal Mid-Inferoseptal Normal [place]-Septal Normal [place]-Anterior Normal [place]-Lateral Normal [place]-Inferior Normal [place]-Tip Normal This report has been electronically signed by: Pasha Duarte MD 12/10/2014 11:46:58 Images reviewed and interpretation verified [facility] Cardiac Ultrasound Laboratory Kimberly Mondragon MD ECHO [...] sites documented in this encounter Care Teams Digital Production Artist Relationship Specialty Start Date End Date Maine Dunn PA PCP - General 04/08/14 02/13/15 documented as of this encounter
--- OUTSIDE RECORDS SUMMARY | 2023-10-28 00:45 | XMS_ITS | Encounter Summary ---
Author Organization [facility] Address [facility] [place] [address] Care Team Providers Care Music Typographer Name Role Phone Maine Dunn Primary Care Provider [phone] Reason for Visit * Reason Comments Follow-up * Auth/Cert - Closed Specialty Diagnoses / Procedures Referred By Perry cabrera Referred To Contact Diagnoses Diffuse large B-cell lymphoma, unspecified site [id number] CBV Procedures PRO BONE MARROW/STEM XPLANT, AUTOLOGOUS AUTOLOGOUS STEM CELL TRANSPLANT Referral ID Status Reason Start Date Expiration Date Visits Re quested Visits Authorized [id number] Closed 1 1 Encounter Details Date Type Department Care Team (Late st Contact Info) Description 12/17/2014 11:30 AM EST Office Visit Hematology [place] [phone] Kimberly Burnett APRN [facility] [place] [address] Kimberly Mondragon MD [facility] [place]EMAT[place] [address] Lymphoma Social History Tobacco Use Types Packs/Day [...] Taken Comments Blood Pressure - - Pulse - - Temperature - - Respiratory Rate - - Oxygen Saturation - - Inhaled Oxygen Concentration - - Weight 68.1 kg (150 lb 3.2 oz) 12/17/2014 11:15 AM EST Height 159.3 cm (5' 2.72) 12/17/2014 11:[address] Body Mass Index 26.85 12/17/2014 11:15 AM EST documented in this encounter Progress Notes * Kimberly Burnett, BRIM GREASER OPERATOR - 12/17/2014 9:45 AM [place] [address] FOLLOW-UP PATIENT EVALUATION PROBLEM LIST: Patient Active Problem List Diagnosis ??? Depression with anxiety ??? Hypokalemia ??? Hypomagnesemia ??? LOUISE (acute kidney injury) ??? Neutropenia ??? Lymphoma [address] biopsy [...] was not informative according to the [place] motorized squad captain, but the strong BCL2 expression in the absence of MUM1 suggests a germinal center origin via the [place] motorized squad captain. Lymphoma TB discussion 10/01/14 Recommendations for salvage chemotherapy and autologous stem cell transplant. C#1 RDHAP 10/09/14 With stem cell collection C#2 RDHAP 11/04/14 PET scan negative! 11/25/14 ! INTERIM HISTORY OF PRESENT ILLNESS: It was my pleasure to see Myriam Vivas back in clinic today. Myriam Vivas is a 64 y.o. year old female being seen for admission for Autologous Peripheral Blood Stem Cell Transplant. Doing pretty well. No new health concerns. No B symptoms. No intercurrent illnesses or infections. The previous discomfort she had in the muscles of her arms and legs is improving, since Levofloxacin was discontinued(it is now on her allergies). Breathing remains stable. Appetite is maintained. Bowels are regular. Energy is low but stable. She has the most energy in the late afternoon- early evening timeframe. Has not been walking regularly. Has been busy preparing for the transplant. She has 4 friends who are cleaning her entire house. She even went out and bought an artificial [place] tree. She requests that Ativan be scheduled TID, and not offered on a prn basis ROS Energy level: She is getting out and doing errands and all ADL's Pain: No Appetite:good Fevers/chills/sweats:No Bruising/bleeding/melena:No Recent infections:No HEENT: negative Nausea/vomiting/diarrhea/constipation:No SOB/HAUSER/chest pain:No Change in adenopathy or other masses:No Unexpected weight loss or gain:No Skin rashes or petechiae:No Musculoskeletal complaints:No Extremities: Negative upper and lower bilaterally Neurologic symptoms:No Mood: Normal Sleep: Difficulty sleeping - see above MEDS: Prior to Admission medications Medication Sig Start [...] 1 tablet by mouth daily. PROVIDER, HISTORICAL [place]-3 Fatty Acids-Vitamin E (FISH OIL) 1,000 mg Capsule Take by mouth. PROVIDER, HISTORICAL Calcium 500 mg Tablet Take by mouth. PROVIDER, HISTORICAL Cholecalciferol, Vitamin D3, (VITAMIN D-3) 2,000 unit Capsule Take 1,000 Units by mouth. PROVIDER, HISTORICAL escitalopram (LEXAPRO) 10 mg tablet 03/08/05 Allergies: Allergies Allergen Reactions ??? Levofloxacin Other (See Comments) tendonitis ??? Tegaderm [Transparent Dressings] Other (See Comments) Unsure if actual allergy, please try [id number] Skin tears/rawness INTERIM SOCIAL HISTORY Changes in job, home situation, tobacco or alcohol use: No PHYSICAL EXAM Vitals Office Visit from 12/17/2014 in [facility] Hem Onc Weight - Scale 68.13 kg (150 lb 3.2 oz) Height 159.3 cm (5' 2.72) BSA (Calculated - sq m) 1.74 sq meters BMI (Calculated) 26.9 GENERAL: Myriam Vivas appears well and is in no acute distress. Accompanied by her daughter. ENT: Oral pharynx clear. EYES: SWATHI NECK: Supple without adenopathy. AXILLARY: no adenopathy OTHER LYMPH: no adenopathy CARDIAC: Regular rate and rhythm without S3,S4 or murmurs. LUNGS: Clear to auscultation. ABDOMEN: Soft and non-tender without hepatosplenomegaly or masses. EXTREMITIES: No cyanosis, clubbing, edema or calf tenderness. SKIN: No bruises or petechiae. NEUROLOGICAL: Alert and oriented to person, place and time. MUSCULOSKELETAL: No spinal or chest wall tenderness. LINE: Right chest mediport; Left chest Triple Lumen Catheter LABORATORY STUDIES RADIOLOGY STUDIES REVIEWED: none ASSESSMENT/PLAN: Myriam Vivas is a 64yo female with Primary Refractory DLBCL. She is here today for admission for Autologous pb stem cell transplant. Conditioning regimen will be Carmustine, Etoposide and Cyclophosphamide. Clinically stable. Has done a lot of preparation for the transplant. I briefly reviewed side effects of the autologous transplant. Discussed the potential agitation that can occur with the BCNU, and that she will receive this chemo tonight, and will be given Ativan asa premed. Also, mentioned the myelosuppressive effects of the chemo, alopecia, n/v/d and self care measures to prevent infection, ie. Daily mouth care, skin and rectal care and the importance of walking on a daily basis. Discussed the importance of taking one day at a time, and she has paddy a suit-case full of toys, ie. Coloring books, Origami kit and many DVDs, along with some light reading.We talked a little bit about what it is like once she returns home, but I assured her I would spendtime with her after discharge. She understands that she will be supported with antiemetics, hydration, antibiotics and transfusionsupport if needed. All questions were answered to her satisfaction. Immediate Plans: ?? Admit to [address] [place] [address] for Autologous PB stem cell transplant. Attending on service is Justin Foote MD ?? Conditioning Regimen with CBV: Using patient's adjusted body weight for chemo doses. Day - 6 (12/17) Carmustine 15mg/kg = 825mg x 1 Day -4 (12/19) Etoposide 60mg/kg = 3, 300mg x 1 Day -2 (12/21) Cyclophosphamide 100mg/kg = 5,500mg x 1 with [place] 60mg/kg(actual patient's weight) =3, 990mg Day 0 (12/23) Stem Cell Infusion. ?? Infectious prophylaxis with Fluc, Keflex( patient is allergic to Levofloxacin) and Acyclovir. ?? Please order Ativan 0.5mg po/IV TID on a scheduled basis Kimberly Burnett, MSN, BRIM GREASER OPERATOR Nurse Practitioner Section of Hematology/Oncology [facility] Office phone: Copy SOPHY FUNES documented in this encounter Plan of Treatment Upcoming Encounters Date Type Department Care Team (Late st Contact Info) Description 12/07/2023 12:00 PM EDT Office Visit Dermatology at [facility] [address] [place] [phone] Juan F Chappell MD [facility] DR RANDEE [place] [address] documented as of this encounter Results * (ABNORMAL) Urinalysis with reflex Culture (12/17/2014 [...] Urine Dipstick Clear Clear CERNER MILLENNIUM Specific [place] Urine Automated 1.024 1.002 - 1.030 CERNER MILLENNIUM Color, Urine Dipstick Yellow Yellow CERNER MILLENNIUM RBC, Urine 1 0 - 4 /HPF CERNER MILLENNIUM WBC, Urine 8(H) 0 - 5 /HPF CERNER MILLENNIUM Squamous Epithelial Cells, Urine 1 <=4 /HPF CERNER MILLENNIUM Hyaline Casts, Urine 3(H) 0 - 2 /LPF CERNER MILLENNIUM Reflex to Culture Yes CERNER MILLENNIUM Urine specimen obtained by clean catch procedure (specimen) 12/17/2014 11:10 AM EST 12/17/2014 11:50 AM EST Narrative Resulting Agency Comment Spec In Lab Kimberly Mondragon MD URINE ORDERABLES CERNER MILLENNIUM * Uric acid (12/17/2014 11:05 AM EST) Uric Acid 4.0 2.5 - 6.5 mg/dL CERNER MILLENNIUM Blood specimen (specimen) 12/17/2014 11:05 AM EST 12/17/2014 11:49 AM EST Narrative Resulting Agency Comment Spec In Lab Kimberly Mondragon MD CHEMISTRY [facility] documented in this encounter Visit Diagnoses Diagnosis Lymphoma Other malignant lymphomas, unspecified site, extranodal and solid organ sites documented in this encounter Care Teams Music Typographer Relationship Specialty Start Date End Date Maine Dunn PA PCP - General 04/08/14 02/13/15 documented as of this encounter
--- OUTSIDE RECORDS SUMMARY | 2023-10-28 00:45 | XMS_ITS | Encounter Summary ---
[place] [address] Care Team Providers Care Universal Worker Assisted Living Name Role Phone Maine Dunn Primary Care Provider Encounter Details Date Type Department Care Team (Latest Contact Info) Description 12/10/2014 9:41 AM EDT - 12/10/2014 10:38 AM EDT Hospital Encounter [place] [phone] DLBCL (diffuse large B cell lymphoma) Discharge [...] Take 1 tablet by mouth daily. 12/25/2015 [place]-3 Fatty Acids-Vitamin E (FISH OIL) 1,000 mg [...] 12:00 PM EDT Office Visit Dermatology at [facility] [address] [place] [address] Juan F Chappell MD [facility] [address] RANDEE [place] [address] documented as of this encounter Procedures Procedure Name Priority Date/Time Associated Diagnosis Comments EKG 12-LEAD Routine 12/10/2014 10:26 AM EDT DLBCL (diffuse large B cell lymphoma) documented in this encounter Results * EKG 12 Lead (12/10/2014 10:26 AM EDT) Ventricular rate 78 BPM MUSE SYSTEM Atrial Rate 78 BPM MUSE SYSTEM P-R Interval 144 ms MUSE SYSTEM QRS Duration 78 ms MUSE SYSTEM Q-T Interval 382 ms MUSE SYSTEM QTC Calculated (Bezet) 435 ms MUSE SYSTEM Calculated P [place] 50 degrees MUSE SYSTEM Calculated R [place] 0 degrees MUSE SYSTEM Calculated T [place] 33 degrees MUSE SYSTEM INTERPRETATION Normal sinus rhythm Normal ECG No previous ECGs available Confirmed by MD Pablito, Rob ([id number]) on 12/10/2014 1:40:04 PM MUSE SYSTEM 12/10/2014 10:2 6 AM EDT 12/10/2014 1:40 PM EDT Kimberly Mondragon MD ECG ORDERABLES MUSE SYSTEM documented in this encounter Visit Diagnoses Diagnosis DLBCL (diffuse large B cell lymphoma) Other malignant lymphomas, unspecified site, extranodal and solid organ sites documented in this encounter Care Teams Universal Worker Assisted Living Relationship Specialty Start Date End Date Maine Dunn PA PCP - General 04/08/14 02/13/15 documented as of this encounter
--- OUTSIDE RECORDS SUMMARY | 2023-10-28 00:45 | XMS_ITS | Encounter Summary ---
[place] [address] Care Team Providers Care Meters Superintendent Name Role Phone Maine Dunn Primary Care Provider [phone] Encounter Details Date Type Department Care Team (Latest Contact Info) Description 12/10/2014 10:39 AM EDT - 12/10/2014 12:29 PM EDT Hospital Encounter [place] [phone] DLBCL (diffuse large B cell lymphoma) Discharge [...] Take 1 tablet by mouth daily. 12/25/2015 [place]-3 Fatty Acids-Vitamin E (FISH OIL) 1,000 mg CapsuleIndications:Lymph vivien Take by mouth. 01/29/2015 Calcium 500 mg TabletIndications:Lympho ma Take by mouth. 01/29/2015 Cholecalciferol, Vitamin D3, (VITAMIN D-3) 2,000 unit CapsuleIndications:Lymph vivien Take 1,000 Units by mouth. 01/29/2015 escitalopram (LEXAPRO) 10 mg tablet 03/08/2005 01/03/2015 documented as of this encounter Procedure Notes * Efren Warner MD - 12/10/2014 11:34 AM EDTAssociated Order(s): PULMONARY FUNCTION TEST FEV1, FVC, and FEV1/FVC are normal. Diffusing capacity uncorrected for hemoglobin is reduced. Oxygen saturation on room air at rest is normal. Impression: Normal spirometry. The isolated reduction in diffusing capacity is a non-specific finding consistent with a variety of cardiopulmonary disorders as well as anemia. documented in this encounter Plan of Treatment Upcoming Encounters Date Type Department Care Team (Late st Contact Info) Description 12/07/2023 12:00 PM EDT Office Visit Dermatology at [facility] [address] [place] [address] Juan F Chappell MD [facility] [place] [address] documented as of this encounter Procedures Procedure Name Priority Date/Time Associated Diagnosis Comments COMMON PULMONARY FUNCTION TEST Routine 12/10/2014 11:34 AM EDT DLBCL (diffuse large B cell lymphoma) documented in this encounter Results * Pulmonary Function Testing (12/10/2014 11:34 AM [...] as anemia. Kimberly Mondragon MD PFT ORDERABLES documented in this encounter Visit Diagnoses Diagnosis DLBCL (diffuse large B cell lymphoma) Other malignant lymphomas, unspecified site, extranodal and solid organ sites documented in this encounter Care Teams Meters Superintendent Relationship Specialty Start Date End Date Maine Dunn PA PCP - General 04/08/14 02/13/15 documented as of this encounter
--- OUTSIDE RECORDS SUMMARY | 2023-10-28 00:45 | XMS_ITS | Encounter Summary ---
Author Organization [place] [address] Care Team Providers Care Supervisor Aircraft Maintenance Name Role Phone Maine Dunn Primary Care Provider [phone] Reason for Visit * Reason Onset Date Comments Arm Pain 12/05/2014 Encounter Details Date Type Department Care Team (Late st Contact Info) Description 12/05/2014 Telephone Hematology [place] [phone] Светлана Boone RN Arm Pain Social History Tobacco Use Types Packs/Day Years [...] Telephone Encounter - Светлана Boone RN - 12/05/2014 5:15 PM EDT 12/05/14 BMT Coordinator Note/ follow-up S: overall it is getting better. I don't want to see my PCP. O: I called Myriam to tell her we weren't sure what was causing this arm pain. We recommended she see her PCP. She is aware of her appointment on Tuesday to discuss her upcoming transplant and shared she has her pre-transplant work-up. She wants to move forward with the transplant despite her arm discomfort and fatigue. She reports the arm discomfort is better and she is able to bend and tie her shoes. A; ? etilogy of arm discomfort P: Tuesday appt with pre-transplant work-up. Tentative transplant admission on 12/17/14. documented in this encounter Plan of Treatment Upcoming Encounters Date Type Department Care Team (Late st Contact Info) Description 12/07/2023 12:00 PM EDT Office Visit Dermatology at [facility] [address] [place] [address] Juan F Chappell MD [facility] [address] [place] [address] documented as of this encounter Visit Diagnoses Not on filedocumented in this encounter Care Teams Supervisor Aircraft Maintenance Relationship Specialty Start Date End Date Maine Dunn PA PCP - General 04/08/14 02/13/15 documented as of this encounter
--- OUTSIDE RECORDS SUMMARY | 2023-10-28 00:45 | XMS_ITS | Encounter Summary ---
Author Organization [facility] [place] [address] Care Team Providers Care Title One Kindergarten Teacher Name Role Phone Maine Dunn Primary Care Provider [phone] Reason for Visit * Reason Onset Date Comments Arm Pain 12/04/2014 Encounter Details Date Type Department Care Team (Late st Contact Info) Description 12/04/2014 Telephone Hematology [place] [phone] Светлана Boone RN Arm Pain Social History [...] Telephone Encounter - Светлана Boone RN - 12/04/2014 10:01 AM EDT 12/04/14 BMT Coordinator Note/ Triage S: I am still having arm discomfort. O: Myriam called yesterday to report she still is having katie arm pain, she describes it as if she got a tetanus shot. She had the pain in her upper thigh, groin area but that has gone away but her arms continue to hurt rebecca when she is doing something from an angle like dressing and shutting doors. She can't raise both arms above her head. She is only walking when she has activities not walking like a mile a day. She states she fatigues easily. Discussed the importance of walking to help with thefatigue and getting her ready for her upcoming transplant admission planned for 12/17/14. Her pre-transplant work-up planned for next week. A: ? Etiology of arm discomfort P: Discuss above with Dr Mondragon. Pre-transplant w/u. Will determine if she is ready for transplant admit. * Telephone Encounter - Светлана Boone RN - 12/04/2014 9:58 AM EDT ----- Message from Kimberly Milton sent at 12/02/2014 2:35 PM EDT ----- Regarding: Pt still having symptoms Contact: Светлана, Pt called, she says that she is still having symptoms, she says that after the last visit, Dr. Mondragon was hoping the change in medications would do it, but no success. She wanted to know if there were any other options. Would you please call her? [phone] Thanks! Kadie documented in this encounter Plan of Treatment Upcoming Encounters Date Type Department Care Team (Late st Contact Info) Description 12/07/2023 12:00 PM EDT Office Visit Dermatology at [facility] [address] [place] [address] Juan F Chappell MD [facility] [address] [address] documented as of this encounter Visit Diagnoses Not on filedocumented in this encounter Care Teams Title One Kindergarten Teacher Relationship Specialty Start Date End Date Maine Dunn PA PCP - General 04/08/14 02/13/15 documented as of this encounter
--- OUTSIDE RECORDS SUMMARY | 2023-10-28 00:45 | XMS_ITS | Encounter Summary ---
Author Organization [facility] [place] [address] Care Team Providers Care Chemical Dependency Counselor Name Role Phone Maine Dunn Primary Care Provider [phone] Reason for Referral * Diagnostic Test (Routine) - Closed Specialty Diagnoses / Procedures Referred By Perry cabrera Referred To Contact Radiology Diagnoses DLBCL (diffuse large B cell lymphoma) Procedures IR central venous access [place] [address] Referral ID Status Reason Start Date Expiration Date V isits Requested Visits Authorized [id number] Closed Specialty Service Requested 12/17/2014 12/17/2015 1 1 Encounter Details Date Type Department Care Team (Late st Contact Info) Description 12/11/2014 Orders Only Hematology [place] [phone] Светлана Boone RN DLBCL (diffuse [...] PM EDT Office Visit Dermatology at [facility] [address] [place] [address] Juan F Chappell MD [facility] [address] [address] documented as of this encounter Results * IR central venous [...] sites documented in this encounter Care Teams Chemical Dependency Counselor Relationship Specialty Start Date End Date Maine Dunn PA PCP - General 04/08/14 02/13/15 documented as of this encounter
--- OUTSIDE RECORDS SUMMARY | 2023-10-28 00:45 | XMS_ITS | Encounter Summary ---
Author Organization [facility] Address [facility] [place] [address] Care Team Providers Care Research Nurse Name Role Phone Maine Dunn Primary Care Provider [phone] Reason for Visit * Auth/Cert - Closed Specialty Diagnoses / Procedures Referred By Perry t Referred To Contact Diagnoses Diffuse large B-cell lymphoma, unspecified site [id number] CBV Procedures PRO BONE MARROW/STEM XPLANT, AUTOLOGOUS AUTOLOGOUS STEM CELL TRANSPLANT Referral ID Status Reason Start Date Expiration Date Visits Re quested Visits Authorized [id number] Closed 1 1 Encounter Details Date Type Department Care Team (Late st Contact Info) Description 12/17/2014 1:53 PM EST - 01/05/2015 4:15 PM EST Hospital Encounter Hematology [place] [address] Justin Foote Jr., MD [facility] [address] [place] [address] Wild Owens MD [facility] [address] [place] [address] Kimberly Mondragon MD [facility] [address] HEMATOLOGY [place] [address] Sally Nweton MD [facility] [address] [place] [address] Vimal Darden MD [facility] [address] [place] [address] Lymphoma; Hypomagnesemia; Chemotherapy adverse reaction, subsequent encounter; Chemotherapy adverse reaction, initial encounter Discharge Disposition: Home Social History Tobacco Use [...] Sign Reading Time Taken Comments Blood Pressure 121/76 01/05/2015 3:54 PM EST Pulse 97 01/05/2015 3:54 PM EST Temperature 37 ??C (98.6 ??F) 01/05/2015 3:54 PM EST Respiratory Rate 18 01/05/2015 3:54 PM EST Oxygen Saturation 96% 01/05/2015 3:54 PM EST Inhaled Oxygen Concentration - - Weight 63.2 kg (139 lb 5.3 oz) 01/05/2015 3:54 P M EST Height 159 cm (5' 2.6) 12/17/2014 2:00 PM EST Body Mass Index 25 12/17/2014 2:00 PM EST documented in this encounter Discharge Summaries * Vimal Darden MD - 01/05/2015 8:51 AM EST Discharge Summary Patient Name: Myriam De Souza Patient Age: 64 y.o. Language: Canadian Race: White Ethnicity: Not nor Admit date: 12/17/2014 Discharge date and time: 01/05/15 Attending Physician: Kimberly Mondragon MD Discharge Physician: Dr. Vimal Darden Follow-up Recommendations for Providers: -Continue discussion about hydration status and nutrition intake. -Ask about hemorrhoid pain. Discharge Diagnoses (Hospital Problems) and Secondary Diagnoses (Chronic Problems): Active Hospital Problems Diagnosis ??? Chemotherapy adverse reaction Resolved Hospital Problems Diagnosis Date Resolved No resolved problems to display. Active Non-Hospital Problems Diagnosis ??? Lymphoma History of Presentation: Recently admitted on 12/17 for Auto transplant in treatment of her refractory DLBCL. PET with stage III A disease. [...] was not informative according to the Bassem insert operator, but the strong BCL2 expression in the absence of MUM1 suggests a germinal center origin via the Muris insert operator. Lymphoma TB discussion 10/01/14 Recommendations for salvage chemotherapy and autologous stem cell transplant. C#1 RDHAP 10/09/14 With stem cell collection C#2 RDHAP 11/04/14 PET scan negative! 11/25/14 ! Hospital Course: # Auto transplant Day +11 today-Stem Cell Infusion Day (12/23/14) -Etoposide reaction with fevers. Work-up for sepsis negative. Chemotherapy/Transplant Meds: # Chemotherapy - CBV Conditioning Regimen prior to autologous stem cell transplant -Carmustine 15mg/kg (dose to be given 825 mg) IV x1 on day -6 (12/17/14) over 2 hours -Day -5 (12/18/14): Rest day -Etoposide 60/mg/kg (dose to be given 3,300 mg) IV x1 on day -4 (12/19/14) over 4 hours -Day -3 (12/20/14): Rest day -Cyclophosphamide 100mg/kg (dose to be given 5,500 mg) IV x1 on day -2 (12/21/14) over 2 hours -Mesna 120mg/kg (dose to be given 3,990 mg) IV x1 dose on day -2 (12/21 ) over 24 hours -Day -1 (12/22/14) Rest day -Day 0 (12/23-11/2014) -Stem Cell Transplant -Days 1-14 (12/17-12/28/14) -Awaiting Count Recovery # Antiemetics: -Zofran 16mg IV or PO beginning on day -6 and ongoing until day -3 -Palonsoetron 0.25 IV push on day -2 one hour prior to cyclophosphamide -Lorazepam 0.5mg PO/IV every 6 hours scheduled nausea/anxiety. May repeat once in 30 minutes if prior dose ineffective. -Aprepitant 125mg PO prior to cyclophosphamide on day -2, then aprepitant 80 mg PO daily on day -1. -Zofran 8mg PO/IV every 8 hours as needed beginning on day +1 # Pre-Medications: -Benadryl 25mg IV 30 minutes prior to etoposide and repeat 2 hours into the infusion. -Hydrocortisone 80mg IV 30 minutes prior to etoposide and repeat 2 hours into the infusion. # Chemotherapy Hydration: - for day -6 (carmustine hydration): give 0.9% NS IV @ 250ml/hr x4 hours before carmustine. Hold during carmustine. Restart @ 250ml for 2 hours after carmustine. - for day -4 (etoposide hydration): concurrent with etoposide run IV 0.9% NS IV @ 1,000mg/hr x 4 hours. Post etoposide, run 0.9% NS at 500ml/hr for 30 minutes, then at 250ml/hr for 30 minutes, then at 125ml/hr for 3 hours then stop. - for day -2 (cyclophosphamide hydration): give 0.9% NS IV @ 250ml/hr starting one hour prior to cyclophosphamide and continuing for at least 6 hours after completion of the cyclophosphamide. # FEN: - Lasix 20mg IV once 4 hours after completing etoposide as needed dyspnea only. Hold if SBP is lessthan 110. - Lasix 20mg IV once daily PRN wt greater than 1 kg above admit baseline - Lasix 20mg for wt greater than 1 kg over 12 hours or input exceeding output by greater than 1000ml per 12 hours. Hold if SBP is less than 90mmHg prior to Lasix administration. -Magnesium and potassium repletion per SOP. # Infection Prophylaxis: - If HSV positive: acyclovir 800mg PO BID on admit or Acyclovir 500mg IV every 12 hours if unable to take by mouth. - Keflex 500 mg QID po daily starting Day 0 -Fluconazole 400mg po daily starting Day 0 - Bactrim DS one table PO once daily from admission until and including day -2. Discontinue after day -2 dose given. - On day +30 start Bactrim DS one table once daily. #Nursing Care -Strict I/O -Caphosol 30mL four times a day -Neutropenic precautions and diet. -Weight BID -Incentive spirometry every 2 hours. -Rectal, oral, skin care per SOP #Mucositis -Magic mouthwash helping for throat pain, continue orders at Q2H PRN -Continue Oxy PRN for pain. -Anticipated improvement with count recovery. #Loss of appetite Nutrition consult ordered. Increasing PO intake. -PO intake encouraged as tolerated. Trying new drinks for hydration. -1 litre of LR today in light of weight loss. #GI - diarrhea better after 1 dose of immodium. Give additional x1 dose of immodium in light of loose stools. -C. Diff sample negative -Sitz baths for hemorrhoids. Continue Prep H and mary care. #Low Grade Fevers -Maybe indicative of count recovery. NO focal signs of infection at current time. If fever increases to 38 C x2 or 38.3C once will do septic workup. #Anemia -transfuse PRBC's PRN for hemoglobin less than 7 or symptomatic. 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 Cover with Band-Aid. Monitor site for infection. #Insomnia Slept well last night - has not required Ambien. Improving and sustaining sleep patterns. Vital Signs at Discharge: BP: 98/60 mmHg, Heart Rate: 89, Temp: 37.1 ??C (98.8 ??F), Resp: 20, BMI (Calculated): 26.7 Height: 159 cm (5' 2.6) (12/17/14 1400) Weight - Scale: 63.4 kg (139 lb 12.4 oz) (01/03/15 0444) Functional and Cognitive Status: Baseline Important Studies and Lab Data: Labs: Last 3 wbc, hgb, hct plt Recent Labs 01/03/15 0453 01/02/15 0450 01/01/15 0436 WBC 4.2 0.8* 0.1* HGB 7.6* 7.7* 7.7* HCT 21.7* 21.4* 20.9* PLATELET 18* 11* 11* Last 3 Lytes Recent Labs 01/03/15 0453 01/02/15 0450 01/01/15 0435 NA 139 137 139 K 3.9 3.7 3.7 CL 98 95* 99 CO2 30 30 31 BUN 5* 7* 8 CREATININE 0.85 0.83 0.66* Last 3 LFTs Recent Labs 01/02/15 0450 12/30/14 0320 12/26/14 0340 AST 18 12 30 ALT 21 24 51* ALKPHOS 153* 96 93 BILITOT 0.5 0.5 0.3 BILIDIR 0.2 0.2 0.1 Last Ca, Mg, Phos Recent Labs 01/03/15 0453 CALCIUM 9.3 PHOS 2.9 Studies: Microbiology: Urinalysis from 12/21/14 septic work up negative Urinalysis 12/23/14 + Ketones, Protein and Glucose. - for heme C-diff 12/30/14-negative Pertinent radiology/diagnostic studies: Chest x-ray on 12/20/14 IMPRESSION: 1. No focal consolidation to suggest pneumonia. 2. Nonspecific radiodensity projecting over the medial LEFT lung base of uncertain etiology or clinical significance. Discharge Conditions/Prognosis: Myriam De Souza is being discharged home today without services. She is doing well. Denies SOB, Nausea/Vomiting/Diarrhea/Constipation. VSS-afebrile. Labs stable. More than 30 minutes was spent with patient and family regarding chente management planning, discharge medication review/discussion, anticipated chemotherapy side effects of treatment and methods to manage symptoms. Patient and family states all questions were answered. Discharge to: Home of boyfriend Updated Allergies/ADRs: Allergies Allergen Reactions ??? Levofloxacin Other (See Comments) tendonitis ??? Tegaderm [Transparent Dressings] Other (See Comments) Unsure if actual allergy, please try [id number] Skin tears/rawness ??? Vancomycin Itching and Dermatitis Sarah's syndrome. Slow infusion for any upcoming doses. Broke out in maculopapular pruritic dermatitis on abdomen, chest, forehead and upper back. Immunizations Given this Hospitalization: Immunization History Administered Date(s) Administered ??? Influenza PF, Split 11/06/2014 ??? Influenza Vaccine, Whole 12/22/2004, 01/03/2006 Discharge Medications: Your Medications New Medications Dose Details hydrocortisone 1 % Crea Apply topically 4 times daily. Preparation-H. To hemorrhoids for discomfort Quantity: 30 g Refills: 0 Continued medications with new dosing Dose Details acyclovir 400 mg Tab Commonly known as: ZOVIRAX Take 2 tablets by mouth 2 times daily. What changed: how much to take 800 mg Quantity: 60 tablet Refills: 3 escitalopram oxalate 10 mg Tab Commonly known as: LEXAPRO Take 1 tablet by mouth daily. What changed: See the new instructions. 10 mg Quantity: 30 tablet Refills: 12 Continued medications, unchanged Dose Details Calcium 500 mg Tab Take by mouth. Refills: 0 cholecalciferol (Vitamin D3) 2,000 unit Cap Take 1,000 Units by mouth. Generic drug: cholecalciferol (Vitamin D3) 1000 Units Refills: 0 docusate sodium 100 mg Cap Commonly known as: COLACE Take 100 mg by mouth 2 times daily. 100 mg Refills: 0 FISH OIL 1,000 mg Cap Take by mouth. Generic drug: fish oil-omega-3 fatty acids with vitamin E Refills: 0 LORazepam 0.5 mg Tab Commonly known as: ATIVAN Take 1 tablet by mouth every 6 hours as needed for Anxiety. 0.5 mg Quantity: 30 tablet Refills: 2 magnesium oxide 400 mg Tab Commonly known as: MAG-OX Take 1 tablet by mouth daily. 400 mg Quantity: 60 tablet Refills: 12 ondansetron 8 mg Tab Commonly known as: ZOFRAN Take 1 tablet by mouth every 8 hours as needed for Nausea. 8 mg Quantity: 20 tablet Refills: 3 prochlorperazine 10 mg Tab Commonly known as: COMPAZINE Take 1 tablet by mouth every 6 hours as needed for Nausea. 10 mg Quantity: 30 tablet Refills: 1 senna 8.6 mg Tab Commonly known as: SENOKOT Take 1 tablet by mouth daily. 1 tablet Refills: 0 Smoking Status at Discharge: History Smoking status ??? Never Smoker Smokeless tobacco ??? Never Used Last Set of Vitals and range of vitals over past 24 hours: Last value Range last 24 hrs Temperature Temp: 37.1 ??C (98.8 ??F) Temp: [36.9 ??C (98.4 ??F)-37.3 ??C (99.1 ??F)] Heart Rate Heart Rate: 89 Heart Rate: [80-105] Blood Pressure BP: 98/60 mmHg BP: (98-124)/(54-72) Respiratory Rate Resp: 20 Resp: [15-20] SpO2 SpO2: 97 % SpO2: [96 %-98 %] Code Status at Discharge: Full Code Instructions Given to Patient at Discharge: Patient Instructions 1. You received an AUTO transplant (with CBV chemotherapy). Carmustine, BCNU and Etoposide 2. Use good hand washing and avoid crowds and people with colds or infections. Call right away if you have any of the following symptoms: Temperature greater than 100.4 F (oral) Check your temperature twice a day at home Shaking chills, with or without a fever Signs of infection (e.g. burning with urination, yellow or green sputum, redness, swelling, drainage of a wound or at the site of your central venous access device (Mediport, Garland) or mouth sores. Any unusual bleeding or bruising, or red spots on your skin (petechiae) Black tarry stools or red or dark brown urine Bloody or coffee ground colored emesis (vomit) Prolonged bleeding from cuts Unusual or new back or stomach pain Diarrhea for >24 hours Constipation for >48 hours Vomiting for >24 hours 3. At home you will take medications to prevent infection: Acyclovir (prevents viral infections, especially herpes zoster/shingles). Take 800mg (400mg two tablets) twice daily, ongoing. Changes in Your Medications: New Medications: - Prep-H rectal application for Hemorrhoid pain four times a day. 4. For nausea and vomiting, take anti-emetic medications (ondansetron or compazine) at the first sign of nausea/vomiting. Continue to try and drink plenty of fluid (attempt to drink 2 Liters/day), eat small frequent meals, avoid foods that are hot and spicy, and avoid triggers for nausea/vomiting (e.g., foods with strong odors, quick sudden movements). Notify your physician or nurse practitioner if: - You have nausea/vomiting not controlled by current nausea medicines. - You have nausea/vomiting that lasts longer than 24 hours. - You are unable to eat/drink or keep anything down for more than 24 hours. - You are dizzy or lightheaded. 5. When you go home, you may experience fatigue. This can be the result of a blood counts, especially low red blood cell count (anemia) and a low white blood cell count (neutropenia) . It should improve as your counts improve. Notify your physician or nurse practitioner if: - You are too tired to get out of bed for 24 hours. - You are feeling confused or unable to think clearly. - Fatigue becomes worse every day. - You feel short of breath or have a hard time breathing. Activity level: Try to increase the amount of activity you do every day. Chemotherapy can cause fatigue, but the best way to prevent fatigue is to continue exercising. Work: Wash your hands frequently and stay away from sick individuals. Pace yourself and rest when you are fatigued. Driving: Do not drive if you are feeling fatigued. Diet: Regular, healthy diet--wash fruits well. Peel root vegetables with skins (potatoes, carrots etc.) Follow-Up Appointments at [facility]: 1. On Tuesday, 01/07: Labs to be drawn on 3K Infusion at 8:30 AM Clinic appointment with Thelma Burnett APRN at 9:30 AM. If you have any questions or concerns, call Dr. Mondragon's office. During non- business hours, call [phone] and ask to speak to the Hematology Fellow On-Call. General Instructions None Future Appointments Provider Department Dept Phone 01/07/2015 8:30 AM LABORATORY, TECH [facility] [phone] 01/07/2015 9:30 AM Kimberly Mondragon MD [facility] [phone] 01/07/2015 10:30 AM [facility] THERAPY [facility] [phone] 01/14/2015 9:00 AM LABORATORY, TECH [facility] [phone] 01/14/2015 10:00 AM Kimberly Burnett APRN [facility] [phone] 03/06/2015 12:00 PM LABORATORY, TECH [facility] [phone] 03/06/2015 3:30 PM Maryellen Johnson RN; Kimebrly Mondragon MD [facility] [phone] Provider Contact Information: SOPHY FUNES [address] / [place] [address] Discharge References/Attachments None Zayra VENTURA, ADRIEN [facility] Hematology/Oncology-[address] [place] [address] Pager: [phone] documented in this encounter Discharge Instructions * Patient Instructions* Zayra Leach APRN - 12/18/2014 2:46 PM EST 1. You received an AUTO transplant (with CBV chemotherapy). Carmustine, BCNU and Etoposide 2. Use good hand washing and avoid crowds and people with colds or infections. Call right away if you have any of the following symptoms: Temperature greater than 100.4 F (oral) Check your temperature twice a day at home Shaking chills, with or without a fever Signs of infection (e.g. burning with urination, yellow or green sputum, redness, swelling, drainage of a wound or at the site of your central venous access device (Mediport, Garland) or mouth sores. Any unusual bleeding or bruising, or red spots on your skin (petechiae) Black tarry stools or red or dark brown urine Bloody or coffee ground colored emesis (vomit) Prolonged bleeding from cuts Unusual or new back or stomach pain Diarrhea for >24 hours Constipation for >48 hours Vomiting for >24 hours 3. At home you will take medications to prevent infection: Acyclovir (prevents viral infections, especially herpes zoster/shingles). Take 800mg (400mg two tablets) twice daily, ongoing. Changes in Your Medications: New Medications: - Prep-H rectal application for Hemorrhoid pain four times a day. 4. For nausea and vomiting, take anti-emetic medications (ondansetron or compazine) at the first sign of nausea/vomiting. Continue to try and drink plenty of fluid (attempt to drink 2 Liters/day), eat small frequent meals, avoid foods that are hot and spicy, and avoid triggers for nausea/vomiting (e.g., foods with strong odors, quick sudden movements). Notify your physician or nurse practitioner if: - You have nausea/vomiting not controlled by current nausea medicines. - You have nausea/vomiting that lasts longer than 24 hours. - You are unable to eat/drink or keep anything down for more than 24 hours. - You are dizzy or lightheaded. 5. When you go home, you may experience fatigue. This can be the result of a blood counts, especially low red blood cell count (anemia) and a low white blood cell count (neutropenia) . It should improve as your counts improve. Notify your physician or nurse practitioner if: - You are too tired to get out of bed for 24 hours. - You are feeling confused or unable to think clearly. - Fatigue becomes worse every day. - You feel short of breath or have a hard time breathing. Activity level: Try to increase the amount of activity you do every day. Chemotherapy can cause fatigue, but the best way to prevent fatigue is to continue exercising. Work: Wash your hands frequently and stay away from sick individuals. Pace yourself and rest when you are fatigued. Driving: Do not drive if you are feeling fatigued. Diet: Regular, healthy diet--wash fruits well. Peel root vegetables with skins (potatoes, carrots etc.) Follow-Up Appointments at [facility]: 1. On Tuesday, 01/07: Labs to be drawn on 3K Infusion at 8:30 AM Clinic appointment with Thelma Burnett APRN at 9:30 AM. If you have any questions or concerns, call Dr. Mondragon's office. During non- business hours, call [phone] and ask to speak to the Hematology Fellow On-Call. documented in this encounter Medications at Time [...] Take 1 tablet by mouth daily. 12/25/2015 Buford-3 Fatty Acids-Vitamin E (FISH OIL) 1,000 mg CapsuleIndications:Lym phoma Take by mouth. 01/29/2015 Calcium 500 mg TabletIndications:Lymp fawn Take by mouth. 01/29/2015 Cholecalciferol, Vitamin D3, (VITAMIN D-3) 2,000 unit CapsuleIndications:Lym phoma Take 1,000 Units by mouth. 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 PET showed stage III A disease and BMBX showed low grade lymphoma. Received x2 cycles of RCHOP and PET scan after 3 cycles on 06/03 showed residual active lymphoma and residual right paratracheal ammon mass. After 6 cycles of RCHOP (last dose 06/03/14) PET scan on 09/02/14 showed partial but significant improved hypermetabolic rightparatracheal conglomerate ammon mass consistent with lymphoma. And slight decrease in size of left axillary lymph nodes. Bronch biopsy of LN on 09/26/14. Began plans for salvage chemotherapy and autologous stem cell transplant. Treatment Plan: R-CHOP 04/12/14 #1 cycle with Neulasta support R-CHOP 05/01/14 #2 cycle with Neulasta support. R-CHOP 06/03/14 #6 cycle with Neulasta support Cycle 1 R-DHAP 10/09/14 with stem cell collection Cycle 2 R-DHAP 11/04/14 Dose reduced cisplatin to 50% and cytarabine to 1000mg/m2. Hospital Problem List: Patient Active Problem List Diagnosis Code ??? Lymphoma C85.90 ??? Depression with anxiety F41.8 ??? Hypokalemia E87.6 ??? Hypomagnesemia E83.42 ??? Neutropenia D70.9 ??? Chemotherapy adverse reaction T45.1X5A ??? Status post autologous bone marrow transplant Z94.81 24 Hour Events: [facility] in [facility] Anxious about d/c PHYSICAL EXAM: Blood pressure 108/68, pulse 89, temperature 36.9 ??C (98.4 ??F), temperature source Oral, resp. rate 18, height 159 cm (5' 2.6), weight 62.3 kg (137 lb 5.6 oz), SpO2 96 %. Constitutional:Appears fatigued but well-developed and well-nourished. No distress. HEENT: EOMI, PERRL. Oropharynx is moist. No buccal or lingual mucositis. No exudate. Eyes: Conjunctivae normal are normal. Pupils are equal, round, and reactive to light. Neck: Normal range of motion. Neck supple. No masses. Cardiovascular: RRR. No murmur or rubs heard. Normal pulses. Pulmonary/Chest: Clear to auscultation bilaterally, no wheezes or crackles, breathing symmetrical with no retractions or accessory muscle use. Abdomen: Soft, non-tender, non-distended. Bowel sounds are normal. Exam negative for adenopathy andhepatosplenomegaly. Rectal hemorrhoids are large but no evidence of erythema or bleeding. Musculoskeletal: Normal range of motion. Normal gait. Exhibits no edema. Lymphadenopathy: No cervical, axillary or inguinal adenopathy. Neurological: Alert and oriented to person, place, and time. Skin: Skin is warm and dry. No obvious rashes. Petechiae scattered on bilateral lower legs. Left tunneled catheter site with 3-4mm opening - no drainage - no erythema surrounding site, no streaking. Psychiatric: Normal mood and affect. Labs: Reviewed PLAN: # Auto transplant Day +13 Today-Stem Cell Infusion Day (12/23/14) She is ready to go today Last blood and platelet tx was on 12/31/14- despite low plates, she should begin to recover on her own She is due to se Dr Mondragon on - check K, Mag and ? Need for blood or platelet tx D/c meds: ativan, lexapro, nexium #Anxiety Ativan as ordered; I asked that she takes 0.5 mg TID, as she does as an outpt, along with lexapro She will need a lot of emotional support as an outpt I reviewed d/c plans and issues to monitor for, including fevers, N/V, and/or bleed Time: 38 mins with the majority spent in coordination of d/c planning Jose Darden MD [facility] Hematology/Oncology-1 [place] [address] Pager: [phone] * Vimal Darden MD - 01/04/2015 8:32 AM EST 1 [facility] Hematology/Oncology/SCT Progress Note Patient info: Patient Name: Myriam De Souza : 1950 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 PET showed stage III A disease and BMBX showed low grade lymphoma. Received x2 cycles of RCHOP and PET scan after 3 cycles on 06/03 showed residual active lymphoma and residual right paratracheal ammon mass. After 6 cycles of RCHOP (last dose 06/03/14) PET scan on 09/02/14 showed partial but significant improved hypermetabolic rightparatracheal conglomerate ammon mass consistent with lymphoma. And slight decrease in size of left axillary lymph nodes. Bronch biopsy of LN on 09/26/14. Began plans for salvage chemotherapy and autologous stem cell transplant. Treatment Plan: R-CHOP 04/12/14 #1 cycle with Neulasta support R-CHOP 05/01/14 #2 cycle with Neulasta support. R-CHOP 06/03/14 #6 cycle with Neulasta support Cycle 1 R-DHAP 10/09/14 with stem cell collection Cycle 2 R-DHAP 11/04/14 Dose reduced cisplatin to 50% and cytarabine to 1000mg/m2. PLAN: # Auto transplant Day +12 Today-Stem Cell Infusion Day (12/23/14) -Etoposide reaction with fevers. Work-up for sepsis negative. Hospital Problem List: Patient Active Problem List Diagnosis Code ??? Lymphoma C85.90 ??? Depression with anxiety F41.8 ??? Hypokalemia E87.6 ??? Hypomagnesemia E83.42 ??? Neutropenia D70.9 ??? Chemotherapy adverse reaction T45.1X5A 24 Hour Events: Nice inc in ANC Not eating - 1L po Antimicrobials: Acyclovir 800mg po BID Fluconazole 200mg BID Keflex 500mg QID - allergy to levaquin Chemotherapy/Transplant Meds: # Chemotherapy - CBV Conditioning Regimen prior to autologous stem cell transplant -Carmustine 15mg/kg (dose to be given 825 mg) IV x1 on day -6 (12/17/14) over 2 hours -Day -5 (12/18/14): Rest day -Etoposide 60/mg/kg (dose to be given 3,300 mg) IV x1 on day -4 (12/19/14) over 4 hours -Day -3 (12/20/14): Rest day -Cyclophosphamide 100mg/kg (dose to be given 5,500 mg) IV x1 on day -2 (12/21/14) over 2 hours -Mesna 120mg/kg (dose to be given 3,990 mg) IV x1 dose on day -2 (12/21 ) over 24 hours -Day -1 (12/22/14) Rest day -Day 0 (12/23-11/2014) -Stem Cell Transplant -Days 1-14 (12/24-01/07/15) -Awaiting Count recovery Pain meds: Oxycodone 5mg PO Q6H PRN Access Lines: -Right chest mediport site is CDI with no signs of infection. -old/removed left tunneled catheter site with 3-4mm opening - no drainage - no erythema, no streaking. CURRENT MEDS: ??? acyclovir 800 mg Oral BID ??? hydrocortisone Topical (Top) 4 Times Daily ??? bacitracin Topical (Top) Daily ??? sodium chloride 0.9 % 5 mL Intravenous Q12H ??? cephalexin 500 mg Oral 4 Times Daily ??? esomeprazole 40 mg Oral Daily ??? supersaturated calcium phosphate 30 mL Oral 4 Times Daily ??? fluconazole 400 mg Oral Daily ??? filgrastim 480 mcg Subcutaneous Daily ??? escitalopram oxalate 10 mg Oral Daily ??? LORazepam 0.5 mg Oral Q6H ??? sodium chloride 0.9 % 5 mL Intravenous BID ??? enoxaparin 40 mg Subcutaneous Daily Admit wt:67.4 kg ; wt is below baseline PHYSICAL EXAM: Blood pressure 96/56, pulse 93, temperature 36.9 ??C (98.4 ??F), temperature source Oral, resp. rate 20, height 159 cm (5' 2.6), weight 62.9 kg (138 lb 10.7 oz), SpO2 93 %. Constitutional:Appears fatigued but well-developed and well-nourished. No distress. HEENT: EOMI, PERRL. Oropharynx is moist. No buccal or lingual mucositis. No exudate. Eyes: Conjunctivae normal are normal. Pupils are equal, round, and reactive to light. Neck: Normal range of motion. Neck supple. No masses. Cardiovascular: RRR. No murmur or rubs heard. Normal pulses. Pulmonary/Chest: Clear to auscultation bilaterally, no wheezes or crackles, breathing symmetrical with no retractions or accessory muscle use. Abdomen: Soft, non-tender, non-distended. Bowel sounds are normal. Exam negative for adenopathy andhepatosplenomegaly. Rectal hemorrhoids are large but no evidence of erythema or bleeding. Musculoskeletal: Normal range of motion. Normal gait. Exhibits no edema. Lymphadenopathy: No cervical, axillary or inguinal adenopathy. Neurological: Alert and oriented to person, place, and time. Skin: Skin is warm and dry. No obvious rashes. Petechiae scattered on bilateral lower legs. Left tunneled catheter site with 3-4mm opening - no drainage - no erythema surrounding site, no streaking. Psychiatric: Normal mood and affect. Labs: Reviewed PLAN: # Auto transplant Day +12 today-Stem Cell Infusion Day (12/23/14) D/c G-CSF, acy, fluc and keflex, as wellas caphosol # Infection Prophylaxis: See above #Nursing Care Encourage po intake #Anemia -transfuse PRBC's PRN for hemoglobin less than 7 or symptomatic. #Anxiety Ativan as ordered K Katalina MANN [facility] Hematology/Oncology-[address] [place] [address] Pager: [phone] * Vy England, RD - 01/03/2015 3:51 PM EST Nutrition Progress Note: S: Per pt: Sleeping, spoke with RN - patient is trying her best to eat Appetite: Poor-Fair Chewing/Swallowing: no issues noted N/V: no issues noted O: Patient Active Problem List Diagnosis Code ??? Lymphoma C85.90 ??? Depression with anxiety F41.8 ??? Hypokalemia E87.6 ??? Hypomagnesemia E83.42 ??? Neutropenia D70.9 ??? Chemotherapy adverse reaction T45.1X5A No past medical history on file. Diet: BMT Height: 159 cm Admit Weight: 67.4 kg (148 lbs) BMI: 26.7 Current Weight: 63.4 kg (139 lbs) BMI: 25.0 Weight Change: 9 lbs lost (6% severe weight loss) in < 1 month Labs: (01/03) BUN 5, Mg 0.54 Medications: Caphosol, Immodium A: Patient seen for BMT follow up. RN reports that patient has been trying to eat, but is experiencing lack of appetite and taste changes. Family brings her food and she has her fridge stocked up with snacks. Snacks and supplements depend on her preference which changes daily. Nursing staff providing encouragement. Patient with compromised PO intake > 5 days and severe weight loss is consistent with severe protein calorie malnutrition. P: Continue current diet and provide patient preferences. Monitor and encourage PO intake. Monitor weights. Nutrition to follow. 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 PET showed stage III A disease and BMBX showed low grade lymphoma. Received x2 cycles of RCHOP and PET scan after 3 cycles on 06/03 showed residual active lymphoma and residual right paratracheal ammon mass. After 6 cycles of RCHOP (last dose 06/03/14) PET scan on 09/02/14 showed partial but significant improved hypermetabolic rightparatracheal conglomerate ammon mass consistent with lymphoma. And slight decrease in size of left axillary lymph nodes. Bronch biopsy of LN on 09/26/14. Began plans for salvage chemotherapy and autologous stem cell transplant. Treatment Plan: R-CHOP 04/12/14 #1 cycle with Neulasta support R-CHOP 05/01/14 #2 cycle with Neulasta support. R-CHOP 06/03/14 #6 cycle with Neulasta support Cycle 1 R-DHAP 10/09/14 with stem cell collection Cycle 2 R-DHAP 11/04/14 Dose reduced cisplatin to 50% and cytarabine to 1000mg/m2. PLAN: # Auto transplant Day +11 Today-Stem Cell Infusion Day (12/23/14) -Etoposide reaction with fevers. Work-up for sepsis negative. Hospital Problem List: Patient Active Problem List Diagnosis Code ??? Lymphoma C85.90 ??? Depression with anxiety F41.8 ??? Hypokalemia E87.6 ??? Hypomagnesemia E83.42 ??? Neutropenia D70.9 ??? Chemotherapy adverse reaction T45.1X5A 24 Hour Events: - ROS negative for: SOB, chest pain, abdominal pain, fevers, headache or N/V -Sore throat improved today. BMX and PRN oxycodone helpful. Increased appetite but nothing tastes good. Denies nausea and able to tolerate jello and liquids. Only ate bites of dinner last night. Ableto swallow pills and control saliva. -One episode of loose bowels last night. No incontinence. -tunneled catheter site stable -Healing. No erythema. No drainage. -biggest complaint is fatigue and dry mouth. - Hemorrhoids are swollen and painful. Using steroid cream, barrier ointment and sitz baths with good effect. No bleeding from hemorrhoids. - continues with low grade temps but improved 99.1F T max- no fever spike at this time Antimicrobials: Acyclovir 800mg po BID Fluconazole 200mg BID Keflex 500mg QID - allergy to levaquin Chemotherapy/Transplant Meds: # Chemotherapy - CBV Conditioning Regimen prior to autologous stem cell transplant -Carmustine 15mg/kg (dose to be given 825 mg) IV x1 on day -6 (12/17/14) over 2 hours -Day -5 (12/18/14): Rest day -Etoposide 60/mg/kg (dose to be given 3,300 mg) IV x1 on day -4 (12/19/14) over 4 hours -Day -3 (12/20/14): Rest day -Cyclophosphamide 100mg/kg (dose to be given 5,500 mg) IV x1 on day -2 (12/21/14) over 2 hours -Mesna 120mg/kg (dose to be given 3,990 mg) IV x1 dose on day -2 (12/21 ) over 24 hours -Day -1 (12/22/14) Rest day -Day 0 (12/23-11/2014) -Stem Cell Transplant -Days 1-14 (12/24-01/07/15) -Awaiting Count recovery Pain meds: Oxycodone 5mg PO Q6H PRN Access Lines: -Right chest mediport site is CDI with no signs of infection. -old/removed left tunneled catheter site with 3-4mm opening - no drainage - no erythema, no streaking. CURRENT MEDS: ??? hydrocortisone Topical (Top) 4 Times Daily ??? acyclovir 800 mg Oral BID ??? bacitracin Topical (Top) Daily ??? sodium chloride 0.9 % 5 mL Intravenous Q12H ??? zolpidem 5 mg Oral Nightly ??? cephalexin 500 mg Oral 4 Times Daily ??? esomeprazole 40 mg Oral Daily ??? supersaturated calcium phosphate 30 mL Oral 4 Times Daily ??? fluconazole 400 mg Oral Daily ??? filgrastim 480 mcg Subcutaneous Daily ??? escitalopram oxalate 10 mg Oral Daily ??? LORazepam 0.5 mg Oral Q6H ??? sodium chloride 0.9 % 5 mL Intravenous BID ??? enoxaparin 40 mg Subcutaneous Daily VITALS: Last value Range last 24 hrs Temperature Temp: 37.2 ??C (99 ??F) Temp: [36.9 ??C (98.4 ??F)-37.3 ??C (99.1 ??F)] Heart Rate Heart Rate: 94 Heart Rate: [80-105] Blood Pressure BP: 102/58 mmHg BP: (102-124)/(54-72) Respiratory Rate Resp: 16 Resp: [15-16] SpO2 SpO2: 97 % SpO2: [96 %-98 %] Intake/Output Summary (Last 24 hours) at 01/03/15 0814 Last data filed at 01/03/15 0640 Gross per 24 hour Intake 2291 ml Output 2300 ml Net -9 ml Patient Vitals for the past 168 hrs: Weight 01/03/15 0444 63.4 kg (139 lb 12.4 oz) 01/02/15 1550 64.4 kg (141 lb 15.6 oz) 01/02/15 0438 64 kg (141 lb 1.5 oz) 01/01/15 1537 65.5 kg (144 lb 6.4 oz) 01/01/15 0426 64.6 kg (142 lb 6.7 oz) 12/31/14 1537 64.1 kg (141 lb 5 oz) 12/31/14 0656 63.5 kg (139 lb 15.9 oz) 12/30/14 1751 64.7 kg (142 lb 10.2 oz) 12/30/14 0847 63.7 kg (140 lb 6.9 oz) 12/29/14 1657 64.5 kg (142 lb 3.2 oz) 12/29/14 0338 65 kg (143 lb 4.8 oz) 12/28/14 1607 64.2 kg (141 lb 8.6 oz) 12/28/14 0643 64.4 kg (141 lb 15.6 oz) 12/27/14 1728 65 kg (143 lb 4.8 oz) Admit wt:67.4 kg Change in weight to today: - 0.6 KG in 24 hours, -4 KG since admission PHYSICAL EXAM: Constitutional:Appears fatigued but well-developed and well-nourished. No distress. HEENT: EOMI, PERRL. Oropharynx is moist. No buccal or lingual mucositis. No exudate. Eyes: Conjunctivae normal are normal. Pupils are equal, round, and reactive to light. Neck: Normal range of motion. Neck supple. No masses. Cardiovascular: RRR. No murmur or rubs heard. Normal pulses. Pulmonary/Chest: Clear to auscultation bilaterally, no wheezes or crackles, breathing symmetrical with no retractions or accessory muscle use. Abdomen: Soft, non-tender, non-distended. Bowel sounds are normal. Exam negative for adenopathy andhepatosplenomegaly. Rectal hemorrhoids are large but no evidence of erythema or bleeding. Musculoskeletal: Normal range of motion. Normal gait. Exhibits no edema. Lymphadenopathy: No cervical, axillary or inguinal adenopathy. Neurological: Alert and oriented to person, place, and time. Skin: Skin is warm and dry. No obvious rashes. Petechiae scattered on bilateral lower legs. Left tunneled catheter site with 3-4mm opening - no drainage - no erythema surrounding site, no streaking. Psychiatric: Normal mood and affect. Labs: Recent Labs 01/03/1545201/02/1544901/01/15 0436 WBC 4.2 0.8* 0.1* HGB 7.6* 7.7* 7.7* HCT 21.7* 21.4* 20.9* PLATELET 18* 11* 11* NEUTROABS 2.05 -- -- Recent Labs 01/03/1545201/02/1544901/01/15 0435 NA 139 137 139 K 3.9 3.7 3.7 CL 98 95* 99 CO2 30 30 31 BUN 5* 7* 8 CREATININE 0.85 0.83 0.66* GLUCOSE 83 88 86 Recent Labs 01/03/1545201/02/1544901/01/15 0435 CALCIUM 9.3 9.3 9.3 MAGNESIUM 0.54* 0.71 0.59* PHOS 2.9 2.8 2.9 Recent Labs 01/02/150 12/30/14 0320 AST 18 12 ALT 21 24 ALKPHOS 153* 96 BILITOT 0.5 0.5 BILIDIR 0.2 0.2 No results for input(s): INR, PT, PTT in the last 72 hours. No results for input(s): LDH, URICACID in the last 168 hours. Tumor Lysis Labs: Recent Labs 01/03/1545201/02/150 01/01/15 0435 PHOS 2.9 2.8 2.9 K 3.9 3.7 3.7 Microbiology: Urinalysis from 12/21/14 septic work up negative Urinalysis 12/23/14 + Ketones, Protein and Glucose. - for heme C-diff 12/30/14-negative Pertinent radiology/diagnostic studies: Chest x-ray on 12/20/14 IMPRESSION: 1. No focal consolidation to suggest pneumonia. 2. Nonspecific radiodensity projecting over the medial LEFT lung base of uncertain etiology or clinical significance. ASSESSMENT: Myriam De Souza is a 64 y.o. female admitted for autologous stem cell transplant for DLBCL. PLAN: # Auto transplant Day +11 today-Stem Cell Infusion Day (12/23/14) -Etoposide reaction with fevers. Work-up for sepsis negative. Chemotherapy/Transplant Meds: # Chemotherapy - CBV Conditioning Regimen prior to autologous stem cell transplant -Carmustine 15mg/kg (dose to be given 825 mg) IV x1 on day -6 (12/17/14) over 2 hours -Day -5 (12/18/14): Rest day -Etoposide 60/mg/kg (dose to be given 3,300 mg) IV x1 on day -4 (12/19/14) over 4 hours -Day -3 (12/20/14): Rest day -Cyclophosphamide 100mg/kg (dose to be given 5,500 mg) IV x1 on day -2 (12/21/14) over 2 hours -Mesna 120mg/kg (dose to be given 3,990 mg) IV x1 dose on day -2 (12/21 ) over 24 hours -Day -1 (12/22/14) Rest day -Day 0 (12/23-11/2014) -Stem Cell Transplant -Days 1-14 (12/17-12/28/14) -Awaiting Count Recovery # Antiemetics: -Zofran 16mg IV or PO beginning on day -6 and ongoing until day -3 -Palonsoetron 0.25 IV push on day -2 one hour prior to cyclophosphamide -Lorazepam 0.5mg PO/IV every 6 hours scheduled nausea/anxiety. May repeat once in 30 minutes if prior dose ineffective. -Aprepitant 125mg PO prior to cyclophosphamide on day -2, then aprepitant 80 mg PO daily on day -1. -Zofran 8mg PO/IV every 8 hours as needed beginning on day +1 # Pre-Medications: -Benadryl 25mg IV 30 minutes prior to etoposide and repeat 2 hours into the infusion. -Hydrocortisone 80mg IV 30 minutes prior to etoposide and repeat 2 hours into the infusion. # Chemotherapy Hydration: - for day -6 (carmustine hydration): give 0.9% NS IV @ 250ml/hr x4 hours before carmustine. Hold during carmustine. Restart @ 250ml for 2 hours after carmustine. - for day -4 (etoposide hydration): concurrent with etoposide run IV 0.9% NS IV @ 1,000mg/hr x 4 hours. Post etoposide, run 0.9% NS at 500ml/hr for 30 minutes, then at 250ml/hr for 30 minutes, then at 125ml/hr for 3 hours then stop. - for day -2 (cyclophosphamide hydration): give 0.9% NS IV @ 250ml/hr starting one hour prior to cyclophosphamide and continuing for at least 6 hours after completion of the cyclophosphamide. # FEN: - Lasix 20mg IV once 4 hours after completing etoposide as needed dyspnea only. Hold if SBP is lessthan 110. - Lasix 20mg IV once daily PRN wt greater than 1 kg above admit baseline - Lasix 20mg for wt greater than 1 kg over 12 hours or input exceeding output by greater than 1000ml per 12 hours. Hold if SBP is less than 90mmHg prior to Lasix administration. -Magnesium and potassium repletion per SOP. # Infection Prophylaxis: - If HSV positive: acyclovir 800mg PO BID on admit or Acyclovir 500mg IV every 12 hours if unable to take by mouth. - Keflex 500 mg QID po daily starting Day 0 -Fluconazole 400mg po daily starting Day 0 - Bactrim DS one table PO once daily from admission until and including day -2. Discontinue after day -2 dose given. - On day +30 start Bactrim DS one table once daily. #Nursing Care -Strict I/O -Caphosol 30mL four times a day -Neutropenic precautions and diet. -Weight BID -Incentive spirometry every 2 hours. -Rectal, oral, skin care per SOP #Mucositis -Magic mouthwash helping for throat pain, continue orders at Q2H PRN -Continue Oxy PRN for pain. -Anticipated improvement with count recovery. #Loss of appetite Nutrition consult ordered. Increasing PO intake. -PO intake encouraged as tolerated. Trying new drinks for hydration. -1 litre of LR today in light of weight loss. #GI - diarrhea better after 1 dose of immodium. Give additional x1 dose of immodium in light of loose stools. -C. Diff sample negative -Sitz baths for hemorrhoids. Continue Prep H and mary care. #Low Grade Fevers -Maybe indicative of count recovery. NO focal signs of infection at current time. If fever increases to 38 C x2 or 38.3C once will do septic workup. #Anemia -transfuse PRBC's PRN for hemoglobin less than 7 or symptomatic. 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 Cover with Band-Aid. Monitor site for infection. #Insomnia Slept well last night - has not required Ambien. Improving and sustaining sleep patterns. #Pancytopenia due to Chemotherapy Treatment -Expected and anticipated in light of transplant status. -Anticipated count recovery at days 10-14. -Continue neutropenic precautions. -ANC 2,050 today. -Daily Neupogen subcutaneous until ANC greater than 1,500 x2 days or 5,000 for one day. -Transfuse with platelets if platelets are at or below 5K. If on Lovenox for prophylaxis, transfuseif platelets are at and below 10K. -Hold Lovenox if platelets are below 20K. #Electrolytes Mag and potassium replacement per protocol. CODE STATUS: Full code DIET: Regular ACTIVITY: Goal: walk 1 mile per day. DVT Prophylaxis: Lovenox 40 mg daily subcutaneous. Hold when platelets dip below 10K. Transfuse with 1 unit of platelets and give Lovenox after platelet infusion. Plan: Stable and awaiting count recovery expected at 10-14 days post stem cell transplant. Will be discharged when able to tolerate PO fluids, eat regular food and decreased stool incontinence. AUDREY Lott, ADRIEN [facility] Hematology/Oncology-[address] [place] [phone] Pager: [phone] Myriam De Souza Female, 64 y.o., 1950 ++++++++++++++++++++++++++++++++++++++++++++++++++++++++++++++++ Attending Addendum: I agree with the history, physical, assessment and plan of the housestaff. I have seen and examinedthe patient on rounds and I have discussed the management with the team. I have reviewed all pertinent laboratory and radiographic findings. This patient meets criteria for inpatient level of care due to the above medical complexity. I agree with the plan above. 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 PET showed stage III A disease and BMBX showed low grade lymphoma. Received x2 cycles of RCHOP and PET scan after 3 cycles on 06/03 showed residual active lymphoma and residual right paratracheal ammon mass. After 6 cycles of RCHOP (last dose 06/03/14) PET scan on 09/02/14 showed partial but significant improved hypermetabolic rightparatracheal conglomerate ammon mass consistent with lymphoma. And slight decrease in size of left axillary lymph nodes. Bronch biopsy of LN on 09/26/14. Began plans for salvage chemotherapy and autologous stem cell transplant. Treatment Plan: R-CHOP 04/12/14 #1 cycle with Neulasta support R-CHOP 05/01/14 #2 cycle with Neulasta support. R-CHOP 06/03/14 #6 cycle with Neulasta support Cycle 1 R-DHAP 10/09/14 with stem cell collection Cycle 2 R-DHAP 11/04/14 Dose reduced cisplatin to 50% and cytarabine to 1000mg/m2. PLAN: # Auto transplant Day +10 Today-Stem Cell Infusion Day (12/23/14) -Etoposide reaction with fevers. Work-up for sepsis negative. Hospital Problem List: Patient Active Problem List Diagnosis Code ??? Lymphoma C85.90 ??? Depression with anxiety F41.8 ??? Hypokalemia E87.6 ??? Hypomagnesemia E83.42 ??? Neutropenia D70.9 ??? Chemotherapy adverse reaction T45.1X5A 24 Hour Events: - ROS negative for: SOB, chest pain, abdominal pain, fevers, headache or N/V -complains of sore throat. Pain is 4-5/10 and most of pain sensation occurs with swallowing. BMX and PRN oxycodone helpful. No appetite - does not feel like eating or drinking, but forcing herself todo so. Denies nausea and able to tolerate jello and liquids. Oatmeal did not go over well yesterday. Difficulty swallowing. Able to swallow pills and control saliva. -Still loose stools. streaks in underwear and passing gas causes incontinence. -tunneled catheter site stable - no increase in erythema. No drainage. -biggest complaint is fatigue. Exhausted after shower. - Hemorrhoids are swollen and painful especially with incontinent episodes. Using steroid cream andbarrier ointment with good effect.Tuck pads are burning periarea. No bleeding from hemorrhoids. - continues with low grade temperature -T max 100.2F- no fever spike at this time Antimicrobials: Acyclovir 800mg po BID Fluconazole 200mg BID Keflex 500mg QID - allergy to levaquin Chemotherapy/Transplant Meds: # Chemotherapy - CBV Conditioning Regimen prior to autologous stem cell transplant -Carmustine 15mg/kg (dose to be given 825 mg) IV x1 on day -6 (12/17/14) over 2 hours -Day -5 (12/18/14): Rest day -Etoposide 60/mg/kg (dose to be given 3,300 mg) IV x1 on day -4 (12/19/14) over 4 hours -Day -3 (12/20/14): Rest day -Cyclophosphamide 100mg/kg (dose to be given 5,500 mg) IV x1 on day -2 (12/21/14) over 2 hours -Mesna 120mg/kg (dose to be given 3,990 mg) IV x1 dose on day -2 (12/21 ) over 24 hours -Day -1 (12/22/14) Rest day -Day 0 (12/23-11/2014) -Stem Cell Transplant -Days 1-14 (12/24-01/07/15) -Awaiting Count recovery Pain meds: Oxycodone 5mg PO Q6H PRN Access Lines: -Right chest mediport site is CDI with no signs of infection. -old/removed left tunneled catheter site with 3-4mm opening - no drainage - decreasing erythema surrounding site, no streaking. CURRENT MEDS: ??? lactated ringers 200 mL/hr Intravenous Once ??? loperamide 2 mg Oral Once ??? hydrocortisone Topical (Top) BID ??? acyclovir 800 mg Oral BID ??? bacitracin Topical (Top) Daily ??? sodium chloride 0.9 % 5 mL Intravenous Q12H ??? zolpidem 5 mg Oral Nightly ??? cephalexin 500 mg Oral 4 Times Daily ??? esomeprazole 40 mg Oral Daily ??? supersaturated calcium phosphate 30 mL Oral 4 Times Daily ??? fluconazole 400 mg Oral Daily ??? filgrastim 480 mcg Subcutaneous Daily ??? escitalopram oxalate 10 mg Oral Daily ??? LORazepam 0.5 mg Oral Q6H ??? sodium chloride 0.9 % 5 mL Intravenous BID ??? enoxaparin 40 mg Subcutaneous Daily VITALS: Last value Range last 24 hrs Temperature Temp: 36.5 ??C (97.7 ??F) Temp: [36.5 ??C (97.7 ??F)-37.9 ??C (100.2 ??F)] Heart Rate Heart Rate: 91 Heart Rate: [86-109] Blood Pressure BP: 106/78 mmHg BP: (100-126)/(65-78) Respiratory Rate Resp: 14 Resp: [14-16] SpO2 SpO2: 95 % SpO2: [95 %-97 %] Intake/Output Summary (Last 24 hours) at 01/02/15 0959 Last data filed at 01/02/15 0905 Gross per 24 hour Intake 1852 ml Output 2175 ml Net -323 ml Patient Vitals for the past 168 hrs: Weight 01/02/15 0438 64 kg (141 lb 1.5 oz) 01/01/15 1537 65.5 kg (144 lb 6.4 oz) 01/01/15 0426 64.6 kg (142 lb 6.7 oz) 12/31/14 1537 64.1 kg (141 lb 5 oz) 12/31/14 0656 63.5 kg (139 lb 15.9 oz) 12/30/14 1751 64.7 kg (142 lb 10.2 oz) 12/30/14 0847 63.7 kg (140 lb 6.9 oz) 12/29/14 1657 64.5 kg (142 lb 3.2 oz) 12/29/14 0338 65 kg (143 lb 4.8 oz) 12/28/14 1607 64.2 kg (141 lb 8.6 oz) 12/28/14 0643 64.4 kg (141 lb 15.6 oz) 12/27/14 1728 65 kg (143 lb 4.8 oz) 12/27/14 0316 64.2 kg (141 lb 8.6 oz) 12/26/14 1300 65 kg (143 lb 4.8 oz) Admit wt:67.4 kg Change in weight to today: - 0.6 KG in 24 hours, -3.4 KG since admission PHYSICAL EXAM: Constitutional:Appears fatigued but well-developed and well-nourished. No distress. HEENT: EOMI, PERRL. Oropharynx is moist. Small 1-2 mm lesion left buccal mucosa. No exudate. Eyes: Conjunctivae normal are normal. Pupils are equal, round, and reactive to light. Neck: Normal range of motion. Neck supple. No masses. Cardiovascular: RRR. No murmur or rubs heard. Normal pulses. Pulmonary/Chest: Clear to auscultation bilaterally, no wheezes or crackles, breathing symmetrical with no retractions or accessory muscle use. Abdomen: Soft, non-tender, non-distended. Bowel sounds are normal. Exam negative for adenopathy andhepatosplenomegaly. Rectal hemorrhoids are large but no evidence of erythema or bleeding. Musculoskeletal: Normal range of motion. Normal gait. Exhibits no edema. Lymphadenopathy: No cervical, axillary or inguinal adenopathy. Neurological: Alert and oriented to person, place, and time. Skin: Skin is warm and dry. No obvious rashes or petechiae. Left tunneled catheter site with 3-4mm opening - no drainage - slight erythema surrounding site, no streaking. Psychiatric: Normal mood and affect. Labs: Recent Labs 01/02/15 0450 01/01/15 0436 12/31/14 0430 WBC 0.8* 0.1* 0.0* HGB 7.7* 7.7* 6.5* HCT 21.4* 20.9* 17.9* PLATELET 11* 11* 14* Recent Labs 01/02/150 01/01/155 12/31/14 0430 NA 137 139 139 K 3.7 3.7 3.5 CL 95* 99 96* CO2 30 31 31 BUN 7* 8 12 CREATININE 0.83 0.66* 0.77 GLUCOSE 88 86 94 Recent Labs 01/02/150 01/01/15 0435 12/31/14 043 CALCIUM 9.3 9.3 9.2 MAGNESIUM 0.71 0.59* 0.73 PHOS 2.8 2.9 3.0 Recent Labs 01/02/15 0450 12/30/14 0320 AST 18 12 ALT 21 24 ALKPHOS 153* 96 BILITOT 0.5 0.5 BILIDIR 0.2 0.2 No results for input(s): INR, PT, PTT in the last 72 hours. No results for input(s): LDH, URICACID in the last 168 hours. Tumor Lysis Labs: Recent Labs 01/02/1544901/01/1543412/31/14429 PHOS 2.8 2.9 3.0 K 3.7 3.7 3.5 Microbiology: Urinalysis from 12/21/14 septic work up negative Urinalysis 12/23/14 + Ketones, Protein and Glucose. - for heme C-diff 12/30/14-negative Pertinent radiology/diagnostic studies: Chest x-ray on 12/20/14 IMPRESSION: 1. No focal consolidation to suggest pneumonia. 2. Nonspecific radiodensity projecting over the medial LEFT lung base of uncertain etiology or clinical significance. ASSESSMENT: Myriam De Souza is a 64 y.o. female admitted for autologous stem cell transplant for DLBCL. PLAN: # Auto transplant Day +10 today-Stem Cell Infusion Day (12/23/14) -Etoposide reaction with fevers. Work-up for sepsis negative. Chemotherapy/Transplant Meds: # Chemotherapy - CBV Conditioning Regimen prior to autologous stem cell transplant -Carmustine 15mg/kg (dose to be given 825 mg) IV x1 on day -6 (12/17/14) over 2 hours -Day -5 (12/18/14): Rest day -Etoposide 60/mg/kg (dose to be given 3,300 mg) IV x1 on day -4 (12/19/14) over 4 hours -Day -3 (12/20/14): Rest day -Cyclophosphamide 100mg/kg (dose to be given 5,500 mg) IV x1 on day -2 (12/21/14) over 2 hours -Mesna 120mg/kg (dose to be given 3,990 mg) IV x1 dose on day -2 (12/21 ) over 24 hours -Day -1 (12/22/14) Rest day -Day 0 (12/23-11/2014) -Stem Cell Transplant -Days 1-14 (12/17-12/28/14) -Awaiting Count Recovery # Antiemetics: -Zofran 16mg IV or PO beginning on day -6 and ongoing until day -3 -Palonsoetron 0.25 IV push on day -2 one hour prior to cyclophosphamide -Lorazepam 0.5mg PO/IV every 6 hours scheduled nausea/anxiety. May repeat once in 30 minutes if prior dose ineffective. -Aprepitant 125mg PO prior to cyclophosphamide on day -2, then aprepitant 80 mg PO daily on day -1. -Zofran 8mg PO/IV every 8 hours as needed beginning on day +1 # Pre-Medications: -Benadryl 25mg IV 30 minutes prior to etoposide and repeat 2 hours into the infusion. -Hydrocortisone 80mg IV 30 minutes prior to etoposide and repeat 2 hours into the infusion. # Chemotherapy Hydration: - for day -6 (carmustine hydration): give 0.9% NS IV @ 250ml/hr x4 hours before carmustine. Hold during carmustine. Restart @ 250ml for 2 hours after carmustine. - for day -4 (etoposide hydration): concurrent with etoposide run IV 0.9% NS IV @ 1,000mg/hr x 4 hours. Post etoposide, run 0.9% NS at 500ml/hr for 30 minutes, then at 250ml/hr for 30 minutes, then at 125ml/hr for 3 hours then stop. - for day -2 (cyclophosphamide hydration): give 0.9% NS IV @ 250ml/hr starting one hour prior to cyclophosphamide and continuing for at least 6 hours after completion of the cyclophosphamide. # FEN: - Lasix 20mg IV once 4 hours after completing etoposide as needed dyspnea only. Hold if SBP is lessthan 110. - Lasix 20mg IV once daily PRN wt greater than 1 kg above admit baseline - Lasix 20mg for wt greater than 1 kg over 12 hours or input exceeding output by greater than 1000ml per 12 hours. Hold if SBP is less than 90mmHg prior to Lasix administration. -Magnesium and potassium repletion per SOP. # Infection Prophylaxis: - If HSV positive: acyclovir 800mg PO BID on admit or Acyclovir 500mg IV every 12 hours if unable to take by mouth. - Keflex 500 mg QID po daily starting Day 0 -Fluconazole 400mg po daily starting Day 0 - Bactrim DS one table PO once daily from admission until and including day -2. Discontinue after day -2 dose given. - On day +30 start Bactrim DS one table once daily. #Nursing Care -Strict I/O -Caphosol 30mL four times a day -Neutropenic precautions and diet. -Weight BID -Incentive spirometry every 2 hours. -Rectal, oral, skin care per SOP #Mucositis -Magic mouthwash helping for throat pain, continue orders at Q2H PRN -Continue oxy PRN for pain. -Anticipated improvement with count recovery. #Loss of appetite Nutrition consult ordered. Increasing PO intake. -PO intake encouraged as tolerated -Difficulty maintaining PO fluids. -2 litre of LR today in light of weight loss. #GI - diarrhea better after 1 dose of immodium. Give additional x1 dose of immodium in light of stool incontinence. -C. Diff sample negative -Sitz baths for hemorrhoids. Continue Prep H and mary care. #Low Grade Fevers -Maybe indicative of count recovery. NO focal signs of infection at current time. If fever increases to 38 C x2 or 38.3C once will do septic workup. Afebrile this AM. #Anemia -transfuse PRBC's PRN for hemoglobin less than 7 or symptomatic. 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 Cover with Band-Aid. Monitor site for infection. #Insomnia Slept well last night - has not required Ambien. Improving and sustaining sleep patterns. #Pancytopenia due to Chemotherapy Treatment -Expected and anticipated in light of transplant status. -Anticipated count recovery at days 10-14. -Continue neutropenic precautions. -ANC 390 today. Expected increase tomorrow. -Daily Neupogen subcutaneous until ANC greater than 1,500 x2 days or 5,000 for one day. -Transfuse with platelets if platelets are at or below 5K. If on Lovenox for prophylaxis, transfuseif platelets are at and below 10K. -Hold Lovenox if platelets are below 20K. #Electrolytes Mag and potassium replacement per protocol. CODE STATUS: Full code DIET: Regular ACTIVITY: Goal: walk 1 mile per day. DVT Prophylaxis: Lovenox 40 mg daily subcutaneous. Hold when platelets dip below 10K. Transfuse with 1 unit of platelets and give Lovenox after platelet infusion. Plan: Stable and awaiting count recovery expected at 10-14 days post stem cell transplant. AUDREY Lott, ADRIEN [facility] Hematology/Oncology-[address] [place] [address] Pager: [phone]+++++++++++++++++++++++++++++++++++++++++++++++++++++++++++++++ Attending Addendum: I agree with the history, physical, assessment and plan of the housestaff. I have seen and examinedthe patient on rounds and I have discussed the management with the team. I have reviewed all pertinent laboratory and radiographic findings. This patient meets criteria for inpatient level of care due to the above medical complexity. I agree with the plan above. * Kimberly Mondragon MD - 01/01/2015 10:11 AM EST 1 [facility] Hematology/Oncology/SCT Progress Note Patient info: Patient Name: Myriam De Souza : 1950 Service: Hematology - GUEST SERVICE MANAGER Responsible Attending: Giancarlo Date of Admission: 12/17/2014 ( Hospital Day 15 days ) Service: 1 [place] Nurse Practitioner Services HPI: Myriam De Souza is a 64 y.o. 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 PET showed stage III A disease and BMBX showed low grade lymphoma. Received x2 cycles of RCHOP and PET scan after 3 cycles on 06/03 showed residual active lymphoma and residual right paratracheal ammon mass. After 6 cycles of RCHOP (last dose 06/03/14) PET scan on 09/02/14 showed partial but significant improved hypermetabolic rightparatracheal conglomerate ammon mass consistent with lymphoma. And slight decrease in size of left axillary lymph nodes. Bronch biopsy of LN on 09/26/14. Began plans for salvage chemotherapy and autologous stem cell transplant. Treatment Plan: R-CHOP 04/12/14 #1 cycle with Neulasta support R-CHOP 05/01/14 #2 cycle with Neulasta support. R-CHOP 06/03/14 #6 cycle with Neulasta support Cycle 1 R-DHAP 10/09/14 with stem cell collection Cycle 2 R-DHAP 11/04/14--current admission--Dose reduced cisplatin to 50% and cytarabine to 1000mg/m2. PLAN: # Auto transplant Day +9 Today-Stem Cell Infusion Day (12/23/14) -Etoposide reaction with fevers. Work-up for sepsis negative. Hospital Problem List: Patient Active Problem List Diagnosis Code ??? Lymphoma C85.90 ??? Depression with anxiety F41.8 ??? Hypokalemia E87.6 ??? Hypomagnesemia E83.42 ??? Neutropenia D70.9 ??? Chemotherapy adverse reaction T45.1X5A 24 Hour Events: - ROS negative for: SOB, chest pain, abdominal pain, fevers, headache or N/V -complains of sore throatPain is 4-5/10 and most of pain sensation occurs with swallowing. BMX and PRN oxycodone helpful. No appetite - does not feel like eating or drinking, but forcing herself to do so. Denies nausea and able to tolerate jello and liquids. Trying oatmeal this morning. -no further loose stools - took 1 immodium yesterday; however she does have small amounts of loose stool when urinating. No bleeding. -tunneled catheter site stable - no increase in erythema. No drainage -biggest complaint is fatigue -Hemorrhoids are stable. Using tucks and steroid cream with good effect. No rectal bleeding. - continues with low grade temperature - no fever spike at this time Antimicrobials: Acyclovir 800mg po BID Fluconazole 200mg BID Keflex 500mg QID - allergy to levaquin Chemotherapy/Transplant Meds: # Chemotherapy - CBV Conditioning Regimen prior to autologous stem cell transplant -Carmustine 15mg/kg (dose to be given 825 mg) IV x1 on day -6 (12/17/14) over 2 hours -Day -5 (12/18/14): Rest day -Etoposide 60/mg/kg (dose to be given 3,300 mg) IV x1 on day -4 (12/19/14) over 4 hours -Day -3 (12/20/14): Rest day -Cyclophosphamide 100mg/kg (dose to be given 5,500 mg) IV x1 on day -2 (12/21/14) over 2 hours -Mesna 120mg/kg (dose to be given 3,990 mg) IV x1 dose on day -2 (12/21 ) over 24 hours -Day -1 (12/22/14) Rest day -Day 0 (12/23-11/2014) -Stem Cell Transplant -Days 1-14 (12/24-01/07/15) -Awaiting Count recovery Pain meds: Oxycodone 5mg PO Q6H PRN Access Lines: -Right chest mediport site is CDI with no signs of infection. -old/removed left tunneled catheter site with 3-4mm opening - no drainage - decreasing erythema surrounding site, no streaking. - left hand PIV D/C'd. CURRENT MEDS: ??? hydrocortisone Topical (Top) BID ??? acyclovir 800 mg Oral BID ??? bacitracin Topical (Top) Daily ??? sodium chloride 0.9 % 5 mL Intravenous Q12H ??? zolpidem 5 mg Oral Nightly ??? cephalexin 500 mg Oral 4 Times Daily ??? esomeprazole 40 mg Oral Daily ??? supersaturated calcium phosphate 30 mL Oral 4 Times Daily ??? fluconazole 400 mg Oral Daily ??? filgrastim 480 mcg Subcutaneous Daily ??? escitalopram oxalate 10 mg Oral Daily ??? LORazepam 0.5 mg Oral Q6H ??? sodium chloride 0.9 % 5 mL Intravenous BID ??? enoxaparin 40 mg Subcutaneous Daily VITALS: Last value Range last 24 hrs Temperature Temp: 37.7 ??C (99.9 ??F) Temp: [36.8 ??C (98.2 ??F)-37.7 ??C (99.9 ??F)] Heart Rate Heart Rate: 95 Heart Rate: [83-99] Blood Pressure BP: 118/70 mmHg BP: (102-118)/(60-70) Respiratory Rate Resp: 16 Resp: [16-18] SpO2 SpO2: 96 % SpO2: [96 %-99 %] Intake/Output Summary (Last 24 hours) at 01/01/15 1011 Last data filed at 01/01/15 0442 Gross per 24 hour Intake 3144 ml Output 1750 ml Net 1394 ml Patient Vitals for the past 168 hrs: Weight 01/01/15 0426 64.6 kg (142 lb 6.7 oz) 12/31/14 1537 64.1 kg (141 lb 5 oz) 12/31/14 0656 63.5 kg (139 lb 15.9 oz) 12/30/14 1751 64.7 kg (142 lb 10.2 oz) 12/30/14 0847 63.7 kg (140 lb 6.9 oz) 12/29/14 1657 64.5 kg (142 lb 3.2 oz) 12/29/14 0338 65 kg (143 lb 4.8 oz) 12/28/14 1607 64.2 kg (141 lb 8.6 oz) 12/28/14 0643 64.4 kg (141 lb 15.6 oz) 12/27/14 1728 65 kg (143 lb 4.8 oz) 12/27/14 0316 64.2 kg (141 lb 8.6 oz) 12/26/14 1300 65 kg (143 lb 4.8 oz) 12/26/14 0330 64.4 kg (141 lb 15.6 oz) 12/25/14 1702 65 kg (143 lb 4.8 oz) Admit wt:67.4 kg Change in weight to today: - 1.2 KG in 24 hours, -3.9 KG since admission PHYSICAL EXAM: Constitutional:Appears fatigued but well-developed and well-nourished. No distress. HEENT: EOMI, PERRL. Oropharynx is moist. Small 1-2 mm lesion left buccal mucosa. No exudate. Eyes: Conjunctivae normal are normal. Pupils are equal, round, and reactive to light. Neck: Normal range of motion. Neck supple. No masses. Cardiovascular: RRR. No murmur or rubs heard. Normal pulses. Pulmonary/Chest: Clear to auscultation bilaterally, no wheezes or crackles, breathing symmetrical with no retractions or accessory muscle use. Abdomen: Soft, non-tender, non-distended. Bowel sounds are normal. Exam negative for adenopathy andhepatosplenomegaly. Musculoskeletal: Normal range of motion. Normal gait. Exhibits no edema. Lymphadenopathy: No cervical, axillary or inguinal adenopathy. Neurological: Alert and oriented to person, place, and time. Skin: Skin is warm and dry. No obvious rashes or petechiae. Left tunneled catheter site with 3-4mm opening - no drainage - slight erythema surrounding site, no streaking. Psychiatric: Normal mood and affect. Labs: Recent Labs 01/01/1543512/31/1442912/30/14 0320 WBC 0.1* 0.0* 0.0* HGB 7.7* 6.5* 7.5* HCT 20.9* 17.9* 20.9* PLATELET 11* 14* 22* Recent Labs 01/01/1543412/31/1442912/30/14 0320 NA 139 139 137 K 3.7 3.5 4.2 CL 99 96* 97* CO2 31 31 31 BUN 8 12 15 CREATININE 0.66* 0.77 0.84 GLUCOSE 86 94 93 Recent Labs 01/01/1543412/31/1442912/30/14 0320 CALCIUM 9.3 9.2 9.3 MAGNESIUM 0.59* 0.73 0.63* PHOS 2.9 3.0 3.6 Recent Labs 12/30/140 12/26/14 0340 AST 12 30 ALT 24 51* ALKPHOS 96 93 BILITOT 0.5 0.3 BILIDIR 0.2 0.1 No results for input(s): INR, PT, PTT in the last 72 hours. No results for input(s): LDH, URICACID in the last 168 hours. Tumor Lysis Labs: Recent Labs 01/01/1543412/31/14429 12/30/14 0320 PHOS 2.9 3.0 3.6 K 3.7 3.5 4.2 Microbiology: Urinalysis from 12/21/14 septic work up negative Urinalysis 12/23/14 + Ketones, Protein and Glucose. - for heme C-diff 12/30/14-negative Pertinent radiology/diagnostic studies: Chest x-ray on 12/20/14 IMPRESSION: 1. No focal consolidation to suggest pneumonia. 2. Nonspecific radiodensity projecting over the medial LEFT lung base of uncertain etiology or clinical significance. ASSESSMENT: Myriam De Souza is a 64 y.o. female admitted for autologous stem cell transplant for DLBCL. PLAN: # Auto transplant Day +9 today-Stem Cell Infusion Day (12/23/14) -Etoposide reaction with fevers. Work-up for sepsis negative. Chemotherapy/Transplant Meds: # Chemotherapy - CBV Conditioning Regimen prior to autologous stem cell transplant -Carmustine 15mg/kg (dose to be given 825 mg) IV x1 on day -6 (12/17/14) over 2 hours -Day -5 (12/18/14): Rest day -Etoposide 60/mg/kg (dose to be given 3,300 mg) IV x1 on day -4 (12/19/14) over 4 hours -Day -3 (12/20/14): Rest day -Cyclophosphamide 100mg/kg (dose to be given 5,500 mg) IV x1 on day -2 (12/21/14) over 2 hours -Mesna 120mg/kg (dose to be given 3,990 mg) IV x1 dose on day -2 (12/21 ) over 24 hours -Day -1 (12/22/14) Rest day -Day 0 (12/23-11/2014) -Stem Cell Transplant -Days 1-14 (12/17-12/28/14) -Awaiting Count Recovery # Antiemetics: -Zofran 16mg IV or PO beginning on day -6 and ongoing until day -3 -Palonsoetron 0.25 IV push on day -2 one hour prior to cyclophosphamide -Lorazepam 0.5mg PO/IV every 6 hours scheduled nausea/anxiety. May repeat once in 30 minutes if prior dose ineffective. -Aprepitant 125mg PO prior to cyclophosphamide on day -2, then aprepitant 80 mg PO daily on day -1. -Zofran 8mg PO/IV every 8 hours as needed beginning on day +1 # Pre-Medications: -Benadryl 25mg IV 30 minutes prior to etoposide and repeat 2 hours into the infusion. -Hydrocortisone 80mg IV 30 minutes prior to etoposide and repeat 2 hours into the infusion. # Chemotherapy Hydration: - for day -6 (carmustine hydration): give 0.9% NS IV @ 250ml/hr x4 hours before carmustine. Hold during carmustine. Restart @ 250ml for 2 hours after carmustine. - for day -4 (etoposide hydration): concurrent with etoposide run IV 0.9% NS IV @ 1,000mg/hr x 4 hours. Post etoposide, run 0.9% NS at 500ml/hr for 30 minutes, then at 250ml/hr for 30 minutes, then at 125ml/hr for 3 hours then stop. - for day -2 (cyclophosphamide hydration): give 0.9% NS IV @ 250ml/hr starting one hour prior to cyclophosphamide and continuing for at least 6 hours after completion of the cyclophosphamide. # FEN: - Lasix 20mg IV once 4 hours after completing etoposide as needed dyspnea only. Hold if SBP is lessthan 110. - Lasix 20mg IV once daily PRN wt greater than 1 kg above admit baseline - Lasix 20mg for wt greater than 1 kg over 12 hours or input exceeding output by greater than 1000ml per 12 hours. Hold if SBP is less than 90mmHg prior to Lasix administration. -Magnesium and potassium repletion per SOP. # Infection Prophylaxis: - If HSV positive: acyclovir 800mg PO BID on admit or Acyclovir 500mg IV every 12 hours if unable to take by mouth. - Keflex 500 mg QID po daily starting Day 0 -Fluconazole 400mg po daily starting Day 0 - Bactrim DS one table PO once daily from admission until and including day -2. Discontinue after day -2 dose given. - On day +30 start Bactrim DS one table once daily. #Nursing Care -Strict I/O -Caphosol 30mL four times a day -Neutropenic precautions and diet. -Weight BID -Incentive spirometry every 2 hours. -Rectal, oral, skin care per SOP #Mucositis -Magic mouthwash helping for throat pain, will increase orders to Q2H PRN -Continue oxy PRN for pain. -Anticipated improvement with count recovery. #Loss of appetite Nutrition consult ordered. Increasing PO intake. -PO intake encouraged as tolerated -Difficulty maintaining PO fluids. -1 litre of LR today #GI - diarrhea better after 1 dose of immodium -C. Diff sample negative #Anemia -transfuse PRBC's PRN. 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 Cover with Band-Aid. Monitor site for infection. #Insomnia Slept wekk last night - has not required Ambien. Improving and sustaining sleep patterns. #Pancytopenia due to Chemotherapy Treatment -Expected and anticipated in light of transplant status. -Anticipated count recovery at days 10-14. -Continue neutropenic precautions. -Daily Neupogen subcutaneous until ANC greater than 1,500 x2 days or 5,000 for one day. -Transfuse with platelets if platelets are at or below 5K. If on Lovenox for prophylaxis, transfuseif platelets are at and below 10K. -Hold Lovenox if platelets are below 20K. #Electrolytes Mag and potassium replacement per protocol. CODE STATUS: Full code DIET: Regular ACTIVITY: Goal: walk 1 mile per day. DVT Prophylaxis: Lovenox 40 mg daily subcutaneous. Hold when platelets dip below 10K. Transfuse with 1 unit of platelets and give Lovenox after platelet infusion. Plan: Stable and awaiting count recovery expected at 10-14 days post stem cell transplant. Gabi Easley, SETTLEMENT TECHNICIAN, LEATHER SCRAPER [facility] Hematology/Oncology-[address] [place] [phone] Pager: [phone]+++++++++++++++++++++++++++++++++++++++++++++++++++++++++++++++ Attending Addendum: I agree with the history, physical, assessment and plan of the housestaff. I have seen and examinedthe patient on rounds and I have discussed the management with the team. I have reviewed all pertinent laboratory and radiographic findings. This patient meets criteria for inpatient level of care due to the above medical complexity. I agree with the plan above. Day +9 Auto transplant for primary refractory DLBLC. CBV priming regimen. Tired with Mucositis and decreased appetite. No fevers. Continue electrolyte replacement, IVF, and prophylactic ATB. Expect count recovery day 10-12. emb * Kimberly Mondragon MD - 12/31/2014 9:26 AM EST 1 [facility] Hematology/Oncology/SCT Progress Note Patient info: Patient Name: Myriam De Souza : 1950 Service: Hematology - GUEST SERVICE MANAGER Responsible Attending: Giancarlo Date of Admission: 12/17/2014 ( Hospital Day 14 days ) Service: [facility] Nurse Practitioner Services HPI: Myriam De Souza is a 64 y.o. 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 PET showed stage III A disease and BMBX showed low grade lymphoma. Received x2 cycles of RCHOP and PET scan after 3 cycles on 06/03 showed residual active lymphoma and residual right paratracheal ammon mass. After 6 cycles of RCHOP (last dose 06/03/14) PET scan on 09/02/14 showed partial but significant improved hypermetabolic rightparatracheal conglomerate ammon mass consistent with lymphoma. And slight decrease in size of left axillary lymph nodes. Bronch biopsy of LN on 09/26/14. Began plans for salvage chemotherapy and autologous stem cell transplant. Treatment Plan: R-CHOP 04/12/14 #1 cycle with Neulasta support R-CHOP 05/01/14 #2 cycle with Neulasta support. R-CHOP 06/03/14 #6 cycle with Neulasta support Cycle 1 R-DHAP 10/09/14 with stem cell collection Cycle 2 R-DHAP 11/04/14--current admission--Dose reduced cisplatin to 50% and cytarabine to 1000mg/m2. PLAN: # Auto transplant Day +8 Today-Stem Cell Infusion Day (12/23/14) -Etoposide reaction with fevers. Work-up for sepsis negative. Hospital Problem List: Patient Active Problem List Diagnosis Code ??? Lymphoma C85.90 ??? Depression with anxiety F41.8 ??? Hypokalemia E87.6 ??? Hypomagnesemia E83.42 ??? Neutropenia D70.9 ??? Chemotherapy adverse reaction T45.1X5A 24 Hour Events: - ROS negative for: SOB, chest pain, abdominal pain, fevers, headache or N/V -complains of sore throat - mouth not too bad able to swallow. States mouth is less painful today. Pain is 4/10 and most of pain sensation occurs with swallowing. BMX and PRN oxycodone helpful. No appetite - does not feel like eating or drinking. Denies nausea and able to tolerate jello and liquids. -loose stools overnight with slight incontinence. -tunneled catheter site continues to improve with Bacitracin. Decreased redness. -biggest complaint is fatigue -Hemorrhoids are uncomfortable. Using witch regi pads with good effect. No rectal bleeding. Antimicrobials: Acyclovir 800mg po BID Fluconazole 200mg BID Keflex 500mg QID - allergy to levaquin Chemotherapy/Transplant Meds: # Chemotherapy - CBV Conditioning Regimen prior to autologous stem cell transplant -Carmustine 15mg/kg (dose to be given 825 mg) IV x1 on day -6 (12/17/14) over 2 hours -Day -5 (12/18/14): Rest day -Etoposide 60/mg/kg (dose to be given 3,300 mg) IV x1 on day -4 (12/19/14) over 4 hours -Day -3 (12/20/14): Rest day -Cyclophosphamide 100mg/kg (dose to be given 5,500 mg) IV x1 on day -2 (12/21/14) over 2 hours -Mesna 120mg/kg (dose to be given 3,990 mg) IV x1 dose on day -2 (12/21 ) over 24 hours -Day -1 (12/22/14) Rest day -Day 0 (12/23-11/2014) -Stem Cell Transplant -Days 1-14 (12/24-01/07/15) -Awaiting Count recovery Pain meds: Oxycodone 5mg PO Q6H PRN Access Lines: -Right chest mediport site is CDI with no signs of infection. -old/removed left tunneled catheter site with 3-4mm opening - no drainage - decreasing erythema surrounding site, no streaking. - left hand PIV is CDI with no signs of infection. CURRENT MEDS: ??? acyclovir 800 mg Oral BID ??? bacitracin Topical (Top) Daily ??? sodium chloride 0.9 % 5 mL Intravenous Q12H ??? zolpidem 5 mg Oral Nightly ??? cephalexin 500 mg Oral 4 Times Daily ??? esomeprazole 40 mg Oral Daily ??? supersaturated calcium phosphate 30 mL Oral 4 Times Daily ??? fluconazole 400 mg Oral Daily ??? filgrastim 480 mcg Subcutaneous Daily ??? escitalopram oxalate 10 mg Oral Daily ??? LORazepam 0.5 mg Oral Q6H ??? sodium chloride 0.9 % 5 mL Intravenous BID ??? enoxaparin 40 mg Subcutaneous Daily VITALS: Last value Range last 24 hrs Temperature Temp: 37 ??C (98.6 ??F) Temp: [37 ??C (98.6 ??F)-37.7 ??C (99.9 ??F)] Heart Rate Heart Rate: 88 Heart Rate: [83-95] Blood Pressure BP: 98/60 mmHg BP: (98-114)/(54-72) Respiratory Rate Resp: 16 Resp: [16-18] SpO2 SpO2: 98 % SpO2: [95 %-98 %] Intake/Output Summary (Last 24 hours) at 12/31/14 0926 Last data filed at 12/31/14 0443 Gross per 24 hour Intake 1775 ml Output 1100 ml Net 675 ml Patient Vitals for the past 168 hrs: Weight 12/31/14 0656 63.5 kg (139 lb 15.9 oz) 12/30/14 1751 64.7 kg (142 lb 10.2 oz) 12/30/14 0847 63.7 kg (140 lb 6.9 oz) 12/29/14 1657 64.5 kg (142 lb 3.2 oz) 12/29/14 0338 65 kg (143 lb 4.8 oz) 12/28/14 1607 64.2 kg (141 lb 8.6 oz) 12/28/14 0643 64.4 kg (141 lb 15.6 oz) 12/27/14 1728 65 kg (143 lb 4.8 oz) 12/27/14 0316 64.2 kg (141 lb 8.6 oz) 12/26/14 1300 65 kg (143 lb 4.8 oz) 12/26/14 0330 64.4 kg (141 lb 15.6 oz) 12/25/14 1702 65 kg (143 lb 4.8 oz) 12/25/14 0500 64.5 kg (142 lb 3.2 oz) 12/24/14 1550 65.2 kg (143 lb 11.8 oz) Admit wt:67.4 kg Change in weight to today: - 1.2 KG in 24 hours, -3.9 KG since admission PHYSICAL EXAM: Constitutional:Appears fatigued but well-developed and well-nourished. No distress. HEENT: EOMI, PERRL. Oropharynx is moist. Small 1-2 mm lesion left buccal mucosa. No exudate. Eyes: Conjunctivae normal are normal. Pupils are equal, round, and reactive to light. Neck: Normal range of motion. Neck supple. No masses. Cardiovascular: RRR. No murmur or rubs heard. Normal pulses. Pulmonary/Chest: Clear to auscultation bilaterally, no wheezes or crackles, breathing symmetrical with no retractions or accessory muscle use. Abdomen: Soft, non-tender, non-distended. Bowel sounds are normal. Exam negative for adenopathy andhepatosplenomegaly. Musculoskeletal: Normal range of motion. Normal gait. Exhibits no edema. Lymphadenopathy: No cervical, axillary or inguinal adenopathy. Neurological: Alert and oriented to person, place, and time. Skin: Skin is warm and dry. No obvious rashes or petechiae. Left tunneled catheter site with 3-4mm opening - no drainage - slight erythema surrounding site, no streaking. Psychiatric: Normal mood and affect. Labs: Recent Labs 12/31/14 0430 12/30/14 0320 12/29/14 0810 12/29/14 0330 12/25/14 0500 WBC 0.0* 0.0* -- 0.0* < > 0.7* HGB 6.5* 7.5* -- 7.1* < > 9.0* HCT 17.9* 20.9* -- 20.5* < > 25.5* PLATELET 14* 22* 23* 4* < > 52* NEUTROABS -- -- -- -- -- 0.55* < > = values in this interval not displayed. Recent Labs 12/31/14 0430 12/30/14 0320 12/29/14 0330 NA 139 137 138 K 3.5 4.2 4.0 CL 96* 97* 100 CO2 31 31 29 BUN 12 15 14 CREATININE 0.77 0.84 0.72 GLUCOSE 94 93 101 Recent Labs 12/31/14 0430 12/30/14 0320 12/29/14 0330 CALCIUM 9.2 9.3 9.0 MAGNESIUM 0.73 0.63* 0.80 PHOS 3.0 3.6 3.7 Recent Labs 12/30/140 12/26/14 0340 AST 12 30 ALT 24 51* ALKPHOS 96 93 BILITOT 0.5 0.3 BILIDIR 0.2 0.1 No results for input(s): INR, PT, PTT in the last 72 hours. No results for input(s): LDH, URICACID in the last 168 hours. Tumor Lysis Labs: Recent Labs 12/31/14 0430 12/30/14 0320 12/29/14 0330 PHOS 3.0 3.6 3.7 K 3.5 4.2 4.0 Microbiology: Urinalysis from 12/21/14 septic work up negative Urinalysis 12/23/14 + Ketones, Protein and Glucose. - for heme C-diff -pending Pertinent radiology/diagnostic studies: Chest x-ray on 12/20/14 IMPRESSION: 1. No focal consolidation to suggest pneumonia. 2. Nonspecific radiodensity projecting over the medial LEFT lung base of uncertain etiology or clinical significance. ASSESSMENT: Myriam De Souza is a 64 y.o. female admitted for autologous stem cell transplant for DLBCL. PLAN: # Auto transplant Day +8 today-Stem Cell Infusion Day (12/23/14) -Etoposide reaction with fevers. Work-up for sepsis negative. Chemotherapy/Transplant Meds: # Chemotherapy - CBV Conditioning Regimen prior to autologous stem cell transplant -Carmustine 15mg/kg (dose to be given 825 mg) IV x1 on day -6 (12/17/14) over 2 hours -Day -5 (12/18/14): Rest day -Etoposide 60/mg/kg (dose to be given 3,300 mg) IV x1 on day -4 (12/19/14) over 4 hours -Day -3 (12/20/14): Rest day -Cyclophosphamide 100mg/kg (dose to be given 5,500 mg) IV x1 on day -2 (12/21/14) over 2 hours -Mesna 120mg/kg (dose to be given 3,990 mg) IV x1 dose on day -2 (12/21 ) over 24 hours -Day -1 (12/22/14) Rest day -Day 0 (12/23-11/2014) -Stem Cell Transplant -Days 1-14 (12/17-12/28/14) -Awaiting Count Recovery # Antiemetics: -Zofran 16mg IV or PO beginning on day -6 and ongoing until day -3 -Palonsoetron 0.25 IV push on day -2 one hour prior to cyclophosphamide -Lorazepam 0.5mg PO/IV every 6 hours scheduled nausea/anxiety. May repeat once in 30 minutes if prior dose ineffective. -Aprepitant 125mg PO prior to cyclophosphamide on day -2, then aprepitant 80 mg PO daily on day -1. -Zofran 8mg PO/IV every 8 hours as needed beginning on day +1 # Pre-Medications: -Benadryl 25mg IV 30 minutes prior to etoposide and repeat 2 hours into the infusion. -Hydrocortisone 80mg IV 30 minutes prior to etoposide and repeat 2 hours into the infusion. # Chemotherapy Hydration: - for day -6 (carmustine hydration): give 0.9% NS IV @ 250ml/hr x4 hours before carmustine. Hold during carmustine. Restart @ 250ml for 2 hours after carmustine. - for day -4 (etoposide hydration): concurrent with etoposide run IV 0.9% NS IV @ 1,000mg/hr x 4 hours. Post etoposide, run 0.9% NS at 500ml/hr for 30 minutes, then at 250ml/hr for 30 minutes, then at 125ml/hr for 3 hours then stop. - for day -2 (cyclophosphamide hydration): give 0.9% NS IV @ 250ml/hr starting one hour prior to cyclophosphamide and continuing for at least 6 hours after completion of the cyclophosphamide. # FEN: - Lasix 20mg IV once 4 hours after completing etoposide as needed dyspnea only. Hold if SBP is lessthan 110. - Lasix 20mg IV once daily PRN wt greater than 1 kg above admit baseline - Lasix 20mg for wt greater than 1 kg over 12 hours or input exceeding output by greater than 1000ml per 12 hours. Hold if SBP is less than 90mmHg prior to Lasix administration. -Magnesium and potassium repletion per SOP. # Infection Prophylaxis: - If HSV positive: acyclovir 800mg PO BID on admit or Acyclovir 500mg IV every 12 hours if unable to take by mouth. - Keflex 500 mg QID po daily starting Day 0 -Fluconazole 400mg po daily starting Day 0 - Bactrim DS one table PO once daily from admission until and including day -2. Discontinue after day -2 dose given. - On day +30 start Bactrim DS one table once daily. #Nursing Care -Strict I/O -Caphosol 30mL four times a day -Neutropenic precautions and diet. -Weight BID -Incentive spirometry every 2 hours. -Rectal, oral, skin care per SOP #Mucositis -Magic mouthwash helping for throat pain, will increase orders to Q2H PRN -Continue oxy PRN for pain. -Anticipated improvement with count recovery. #Loss of appetite Nutrition consult ordered. Increasing PO intake. -PO intake encouraged as tolerated -Difficulty maintaining PO fluids. -1 litre of LR today #GI - diarrhea with urgency, incontinence yesterday. -C. Diff sample pending. If r/o C. Diff is negative will administer one dose of immodium. #Anemia -Will transfuse with 1 unit of RBC today for Hgb of 6.5. 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 Cover with Band-Aid. Monitor site for infection. #Insomnia Continue w/ Ambien nightly. Improving and sustaining sleep patterns. #Pancytopenia due to Chemotherapy Treatment -Expected and anticipated in light of transplant status. -Anticipated count recovery at days 10-14. -Continue neutropenic precautions. -Daily Neupogen subcutaneous until ANC greater than 1,500 x2 days or 5,000 for one day. -Transfuse with platelets if platelets are at or below 5K. If on Lovenox for prophylaxis, transfuseif platelets are at and below 10K. -Hold Lovenox if platelets are below 20K. #Electrolytes Mag and potassium replacement per protocol. CODE STATUS: Full code DIET: Regular ACTIVITY: Goal: walk 1 mile per day. DVT Prophylaxis: Lovenox 40 mg daily subcutaneous. Hold when platelets dip below 10K. Transfuse with 1 unit of platelets and give Lovenox after platelet infusion. Plan: Stable and awaiting count recovery expected at 10-14 days post stem cell transplant. Zayra Leach SETTLEMENT TECHNICIAN, LEATHER SCRAPER [facility] Hematology/Oncology-[address] [place] [address] Pager: [phone]+++++++++++++++++++++++++++++++++++++++++++++++++++++++++++++++ Attending Addendum: I agree with the history, physical, assessment and plan of the housestaff. I have seen and examinedthe patient on rounds and I have discussed the management with the team. I have reviewed all pertinent laboratory and radiographic findings. This patient meets criteria for inpatient level of care due to the above medical complexity. I agree with the plan above. Day +7 Auto transplant for primary refractory DLBLC. CBV priming regimen. Tired with Mucositis and decreased appetite. No fevers. Continue electrolyte replacement, IVF, and prophylactic ATB. Expect count recovery day 10-12. emb * Kimberly Mondragon MD - 12/30/2014 10:45 AM EST 1 [facility] Hematology/Oncology/SCT Progress Note Patient info: Patient Name: Myriam De Souza : 1950 Service: Hematology - GUEST SERVICE MANAGER Responsible Attending: Giancarlo Date of Admission: 12/17/2014 ( Hospital Day 13 days ) Service: 1 [place] Nurse Practitioner Services HPI: Myriam De Souza is a 64 y.o. 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 PET showed stage III A disease and BMBX showed low grade lymphoma. Received x2 cycles of RCHOP and PET scan after 3 cycles on 06/03 showed residual active lymphoma and residual right paratracheal ammon mass. After 6 cycles of RCHOP (last dose 06/03/14) PET scan on 09/02/14 showed partial but significant improved hypermetabolic rightparatracheal conglomerate ammon mass consistent with lymphoma. And slight decrease in size of left axillary lymph nodes. Bronch biopsy of LN on 09/26/14. Began plans for salvage chemotherapy and autologous stem cell transplant. Treatment Plan: R-CHOP 04/12/14 #1 cycle with Neulasta support R-CHOP 05/01/14 #2 cycle with Neulasta support. R-CHOP 06/03/14 #6 cycle with Neulasta support Cycle 1 R-DHAP 10/09/14 with stem cell collection Cycle 2 R-DHAP 11/04/14--current admission--Dose reduced cisplatin to 50% and cytarabine to 1000mg/m2. PLAN: # Auto transplant Day +7 Today-Stem Cell Infusion Day (12/23/14) -Etoposide reaction with fevers. Work-up for sepsis negative. Hospital Problem List: Patient Active Problem List Diagnosis Code ??? Lymphoma C85.90 ??? Depression with anxiety F41.8 ??? Hypokalemia E87.6 ??? Hypomagnesemia E83.42 ??? Neutropenia D70.9 ??? Chemotherapy adverse reaction T45.1X5A 24 Hour Events: - ROS negative for: SOB, chest pain, abdominal pain, fevers, headache or N/V -complains of sore throat - mouth not too bad able to swallow. BMX and PRN oxycodone helpful. No appetite - does not feel like eating or drinking. Denies nausea but feels foods are 'too heavy' Ableto tolerate jello and liquids. -loose stools X2 yesterday with urgency/incontinence. Denies BRBPR. -rash has resolved over the weekend -tunneled catheter site continues to improve with Bacitracin -biggest complaint is fatigue Antimicrobials: Acyclovir 800mg po BID Fluconazole 200mg BID Keflex 500mg QID - allergy to levaquin Chemotherapy/Transplant Meds: # Chemotherapy - CBV Conditioning Regimen prior to autologous stem cell transplant -Carmustine 15mg/kg (dose to be given 825 mg) IV x1 on day -6 (12/17/14) over 2 hours -Day -5 (12/18/14): Rest day -Etoposide 60/mg/kg (dose to be given 3,300 mg) IV x1 on day -4 (12/19/14) over 4 hours -Day -3 (12/20/14): Rest day -Cyclophosphamide 100mg/kg (dose to be given 5,500 mg) IV x1 on day -2 (12/21/14) over 2 hours -Mesna 120mg/kg (dose to be given 3,990 mg) IV x1 dose on day -2 (12/21 ) over 24 hours -Day -1 (12/22/14) Rest day -Day 0 (12/23-11/2014) -Stem Cell Transplant -Days 1-14 (12/24-01/07/15) -Awaiting Count recovery Pain meds: Oxycodone 5mg PO Q6H PRN Access Lines: -Right chest mediport site is CDI with no signs of infection. -old/removed left tunneled catheter site with 3-4mm opening - no drainage - + erythema surrounding site, no streaking. - left hand PIV is CDI CURRENT MEDS: ??? diphenhydrAMINE/aluminum-magnesium hydroxide/lidocaine (BMX) 5 mL Oral Q2H ??? acyclovir 800 mg Oral BID ??? bacitracin Topical (Top) Daily ??? sodium chloride 0.9 % 5 mL Intravenous Q12H ??? zolpidem 5 mg Oral Nightly ??? cephalexin 500 mg Oral 4 Times Daily ??? esomeprazole 40 mg Oral Daily ??? supersaturated calcium phosphate 30 mL Oral 4 Times Daily ??? fluconazole 400 mg Oral Daily ??? filgrastim 480 mcg Subcutaneous Daily ??? escitalopram oxalate 10 mg Oral Daily ??? LORazepam 0.5 mg Oral Q6H ??? sodium chloride 0.9 % 5 mL Intravenous BID ??? enoxaparin 40 mg Subcutaneous Daily VITALS: Last value Range last 24 hrs Temperature Temp: 37.3 ??C (99.1 ??F) Temp: [37.1 ??C (98.8 ??F)-37.7 ??C (99.9 ??F)] Heart Rate Heart Rate: 84 Heart Rate: [82-96] Blood Pressure BP: 106/64 mmHg BP: (90-122)/(60-80) Respiratory Rate Resp: 16 Resp: [12-18] SpO2 SpO2: 95 % SpO2: [93 %-97 %] Intake/Output Summary (Last 24 hours) at 12/30/14 1047 Last data filed at 12/30/14 1033 Gross per 24 hour Intake 260 ml Output 1375 ml Net -1115 ml Patient Vitals for the past 168 hrs: Weight 12/30/14 0847 63.7 kg (140 lb 6.9 oz) 12/29/14 1657 64.5 kg (142 lb 3.2 oz) 12/29/14 0338 65 kg (143 lb 4.8 oz) 12/28/14 1607 64.2 kg (141 lb 8.6 oz) 12/28/14 0643 64.4 kg (141 lb 15.6 oz) 12/27/14 1728 65 kg (143 lb 4.8 oz) 12/27/14 0316 64.2 kg (141 lb 8.6 oz) 12/26/14 1300 65 kg (143 lb 4.8 oz) 12/26/14 0330 64.4 kg (141 lb 15.6 oz) 12/25/14 1702 65 kg (143 lb 4.8 oz) 12/25/14 0500 64.5 kg (142 lb 3.2 oz) 12/24/14 1550 65.2 kg (143 lb 11.8 oz) 12/24/14 0747 65.2 kg (143 lb 11.8 oz) 12/23/14 1744 67 kg (147 lb 11.3 oz) Admit wt:67.4 kg Change in weight to today: - 0.8KG in 24 hours, -3.7 KG since admission PHYSICAL EXAM: Constitutional: Appears well-developed and well-nourished. No distress. HEENT: EOMI, PERRL. Oropharynx is pale and dry. Small 2-3 mm lesion left buccal mucosa. No exudate. Eyes: Conjunctivae normal are normal. Pupils are equal, round, and reactive to light. Neck: Normal range of motion. Neck supple. No masses. Cardiovascular: RRR. No murmur or rubs heard. Normal pulses. Pulmonary/Chest: Clear to auscultation bilaterally, no wheezes or crackles, breathing symmetrical with no retractions or accessory muscle use. Abdomen: Soft, non-tender, non-distended. Bowel sounds are normal. Exam negative for adenopathy andhepatosplenomegaly. Musculoskeletal: Normal range of motion. Normal gait. Exhibits no edema. Lymphadenopathy: No cervical, axillary or inguinal adenopathy. Neurological: Alert and oriented to person, place, and time. Skin: Skin is warm and dry. No obvious rashes or petechiae. Left tunneled catheter site with 3-4mm opening - no drainage - + erythema surrounding site, no streaking. Psychiatric: Normal mood and affect. Labs: Recent Labs 12/30/14 0320 12/29/14 0810 12/29/14 0330 12/28/14 0500 12/25/14 0500 12/24/14 0430 WBC 0.0* -- 0.0* 0.1* < > 0.7* 1.7* HGB 7.5* -- 7.1* 7.8* < > 9.0* 6.9* HCT 20.9* -- 20.5* 21.9* < > 25.5* 19.3* PLATELET 22* 23* 4* 12* < > 52* 64* NEUTROABS -- -- -- -- -- 0.55* 1.56 < > = values in this interval not displayed. Recent Labs 12/30/14 0320 12/29/14 0330 12/28/14 0500 NA 137 138 138 K 4.2 4.0 4.3 CL 97* 100 99 CO2 31 29 30 BUN 15 14 16 CREATININE 0.84 0.72 0.68* GLUCOSE 93 101 92 Recent Labs 12/30/14 0320 12/29/14 0330 12/28/14 0500 CALCIUM 9.3 9.0 9.2 MAGNESIUM 0.63* 0.80 0.65* PHOS 3.6 3.7 3.7 Recent Labs 12/30/14 0320 12/26/14 0340 AST 12 30 ALT 24 51* ALKPHOS 96 93 BILITOT 0.5 0.3 BILIDIR 0.2 0.1 No results for input(s): INR, PT, PTT in the last 72 hours. No results for input(s): LDH, URICACID in the last 168 hours. Tumor Lysis Labs: Recent Labs 12/30/14 0320 12/29/14 0330 12/28/14 0500 PHOS 3.6 3.7 3.7 K 4.2 4.0 4.3 Microbiology: Urinalysis from 12/21/14 septic work up negative Urinalysis 12/23/14 + Ketones, Protein and Glucose. - for heme C-diff -pending Pertinent radiology/diagnostic studies: Chest x-ray on 12/20/14 IMPRESSION: 1. No focal consolidation to suggest pneumonia. 2. Nonspecific radiodensity projecting over the medial LEFT lung base of uncertain etiology or clinical significance. ASSESSMENT: Myriam De Souza is a 64 y.o. female admitted for autologous stem cell transplant for DLBCL - today is day +7 PLAN: # Auto transplant Day +6 today-Stem Cell Infusion Day (12/23/14) -Etoposide reaction with fevers. Work-up for sepsis negative. Chemotherapy/Transplant Meds: # Chemotherapy - CBV Conditioning Regimen prior to autologous stem cell transplant -Carmustine 15mg/kg (dose to be given 825 mg) IV x1 on day -6 (12/17/14) over 2 hours -Day -5 (12/18/14): Rest day -Etoposide 60/mg/kg (dose to be given 3,300 mg) IV x1 on day -4 (12/19/14) over 4 hours -Day -3 (12/20/14): Rest day -Cyclophosphamide 100mg/kg (dose to be given 5,500 mg) IV x1 on day -2 (12/21/14) over 2 hours -Mesna 120mg/kg (dose to be given 3,990 mg) IV x1 dose on day -2 (12/21 ) over 24 hours -Day -1 (12/22/14) Rest day -Day 0 (12/23-11/2014) -Stem Cell Transplant -Days 1-14 (12/17-12/28/14) -Awaiting Count Recovery # Antiemetics: -Zofran 16mg IV or PO beginning on day -6 and ongoing until day -3 -Palonsoetron 0.25 IV push on day -2 one hour prior to cyclophosphamide -Lorazepam 0.5mg PO/IV every 6 hours scheduled nausea/anxiety. May repeat once in 30 minutes if prior dose ineffective. -Aprepitant 125mg PO prior to cyclophosphamide on day -2, then aprepitant 80 mg PO daily on day -1. -Zofran 8mg PO/IV every 8 hours as needed beginning on day +1 # Pre-Medications: -Benadryl 25mg IV 30 minutes prior to etoposide and repeat 2 hours into the infusion. -Hydrocortisone 80mg IV 30 minutes prior to etoposide and repeat 2 hours into the infusion. # Chemotherapy Hydration: - for day -6 (carmustine hydration): give 0.9% NS IV @ 250ml/hr x4 hours before carmustine. Hold during carmustine. Restart @ 250ml for 2 hours after carmustine. - for day -4 (etoposide hydration): concurrent with etoposide run IV 0.9% NS IV @ 1,000mg/hr x 4 hours. Post etoposide, run 0.9% NS at 500ml/hr for 30 minutes, then at 250ml/hr for 30 minutes, then at 125ml/hr for 3 hours then stop. - for day -2 (cyclophosphamide hydration): give 0.9% NS IV @ 250ml/hr starting one hour prior to cyclophosphamide and continuing for at least 6 hours after completion of the cyclophosphamide. # FEN: - Lasix 20mg IV once 4 hours after completing etoposide as needed dyspnea only. Hold if SBP is lessthan 110. - Lasix 20mg IV once daily PRN wt greater than 1 kg above admit baseline - Lasix 20mg for wt greater than 1 kg over 12 hours or input exceeding output by greater than 1000ml per 12 hours. Hold if SBP is less than 90mmHg prior to Lasix administration. -Magnesium and potassium repletion per SOP. # Infection Prophylaxis: - If HSV positive: acyclovir 800mg PO BID on admit or Acyclovir 500mg IV every 12 hours if unable to take by mouth. - Keflex 500 mg QID po daily starting Day 0 -Fluconazole 400mg po daily starting Day 0 - Bactrim DS one table PO once daily from admission until and including day -2. Discontinue after day -2 dose given. - On day +30 start Bactrim DS one table once daily. #Nursing Care -Strict I/O -Caphosol 30mL four times a day -Neutropenic precautions and diet. -Weight BID -Incentive spirometry every 2 hours. -Rectal, oral, skin care per SOP #Mucositis -Magic mouthwash helping for throat pain, will increase orders to Q2H PRN #Loss of appetite Nutrition consult ordered. Increasing PO intake. -PO intake encouraged as tolerated -Difficulty maintaining PO fluids. -1 litre of LR today #GI - diarrhea with urgency, incontinence yesterday. -Will send sample for C.diff today. #Anemia -Stable. Will transfuse with 1 unit of RBC if Hgb dips below 7. #Anxiety Ativan as ordered #Rash -Sarah's syndrome rash resolved - D/C S[place]. -Tunneled catheter site - continue to Apply bacitracin to open area (previous suture site) on left chest. Cover with Band-Aid. Monitor site for infection. #Insomnia Continue w/ Ambien nightly. Improving and sustaining sleep patterns. #Pancytopenia due to Chemotherapy Treatment -Expected and anticipated in light of transplant status. -Anticipated count recovery at days 10-14. -Continue neutropenic precautions. -Daily Neupogen subcutaneous until ANC greater than 1,500 x2 days or 5,000 for one day. -Transfuse with platelets if platelets are at or below 5K. If on Lovenox for prophylaxis, transfuseif platelets are at and below 10K. -Hold Lovenox if platelets are below 20K. #Electrolytes Mag and potassium replacement per protocol. CODE STATUS: Full code DIET: Regular ACTIVITY: Walk 1 mile per day DVT Prophylaxis: Lovenox 40 mg daily subcutaneous. Hold when platelets dip below 10K. Transfuse with 1 unit of platelets and give Lovenox after platelet infusion. Patient seen, examined and discussed with Dr Giancarlo Easley, MSN, LEATHER SCRAPER [address] Hematology/Oncology Nurse Practitioner Services Pager: [phone]+++++++++++++++++++++++++++++++++++++++++++++++++++++++++++++++ Attending Addendum: I agree with the history, physical, assessment and plan of the housestaff. I have seen and examinedthe patient on rounds and I have discussed the management with the team. I have reviewed all pertinent laboratory and radiographic findings. This patient meets criteria for inpatient level of care due to the above medical complexity. I agree with the plan above. Day +7 Auto transplant for primary refractory DLBLC. CBV priming regimen. Tired with Mucositis and decreased appetite. No fevers. Continue electrolyte replacement, IVF, and prophylactic ATB. Expect count recovery day 10-12. emb * Paige Hernandez - 12/29/2014 8:27 AM EST 1 [place] [facility] H[facility]/Oncology/SCT Progress Note Patient info: Patient Name: Myriam De Souza : 1950 Service: Hematology - GUEST SERVICE MANAGER Responsible Attending: Dr. Mondragon Date of Admission: 12/17/2014 ( Hospital Day 12 days ) Service: 1 [place] [facility] Pract[facility]er [facility] Interval history: Myriam De Souza is a 64 y.o. female with diffuse large B cell lymphoma who is admitted for autologous stem cell transplant. She is day +6. She complains of discomfort in her throat. She also has difficulty swallowing some of her bigger medications. Mild sore throat reported. No oral pain or lesions. She has some loose stool but not watey diarrhea. No abdominal pain. Her most bothersome complaint is fatigue however. Hospital Problem List: Patient Active Problem List Diagnosis Code ??? Lymphoma C85.90 ??? Depression with anxiety F41.8 ??? Hypokalemia E87.6 ??? Hypomagnesemia E83.42 ??? Neutropenia D70.9 ??? Chemotherapy adverse reaction T45.1X5A Antimicrobials: Acyclovir 800 bid Fluconazole 200 mg bid - begin on day 0 Keflex 500 mg qid - begin on day 0 ( allergy to Levaquin ) Pain meds: Oxycodone 5 mg po Q 6 hours prn Access Lines: -left chest tunneled line site is decreasing in erythema. Left chest line suture site is pink and ROSEMARY. Left hand peripheral line is CDI. Will access mediport at noon. 24 hours after Vancomycin CURRENT MEDS: ??? bacitracin Topical (Top) Daily ??? sodium chloride 0.9 % 5 mL Intravenous Q12H ??? camphor-menthol Topical (Top) TID ??? zolpidem 5 mg Oral Nightly ??? cephalexin 500 mg Oral 4 Times Daily ??? esomeprazole 40 mg Oral Daily ??? supersaturated calcium phosphate 30 mL Oral 4 Times Daily ??? fluconazole 400 mg Oral Daily ??? acyclovir 800 mg Oral BID ??? filgrastim 480 mcg Subcutaneous Daily ??? escitalopram oxalate 10 mg Oral Daily ??? LORazepam 0.5 mg Oral Q6H ??? sodium chloride 0.9 % 5 mL Intravenous BID ??? enoxaparin 40 mg Subcutaneous Daily VITALS: Last value Range last 24 hrs Temperature Temp: 37.2 ??C (99 ??F) Temp: [37.1 ??C (98.8 ??F)-37.6 ??C (99.7 ??F)] Heart Rate Heart Rate: 88 Heart Rate: [76-104] Blood Pressure BP: 110/64 mmHg BP: (108-116)/(60-72) Respiratory Rate Resp: 18 Resp: [17-19] SpO2 SpO2: 96 % SpO2: [95 %-97 %] Intake/Output Summary (Last 24 hours) at 12/29/14 0827 Last data filed at 12/29/14 0632 Gross per 24 hour Intake 2074 ml Output 1400 ml Net 674 ml Patient Vitals for the past 168 hrs: Weight 12/29/14 0338 65 kg (143 lb 4.8 oz) 12/28/14 1607 64.2 kg (141 lb 8.6 oz) 12/28/14 0643 64.4 kg (141 lb 15.6 oz) 12/27/14 1728 65 kg (143 lb 4.8 oz) 12/27/14 0316 64.2 kg (141 lb 8.6 oz) 12/26/14 1300 65 kg (143 lb 4.8 oz) 12/26/14 0330 64.4 kg (141 lb 15.6 oz) 12/25/14 1702 65 kg (143 lb 4.8 oz) 12/25/14 0500 64.5 kg (142 lb 3.2 oz) 12/24/14 1550 65.2 kg (143 lb 11.8 oz) 12/24/14 0747 65.2 kg (143 lb 11.8 oz) 12/23/14 1744 67 kg (147 lb 11.3 oz) 12/23/14 0433 65.9 kg (145 lb 4.5 oz) 12/22/14 1545 67.8 kg (149 lb 7.6 oz) Admit wt:68.4 kg. Change in weight to today: -4.2 KG PHYSICAL EXAM: Gen - alert and oriented, no distress, conversant EENT- Membrane is moist and intact. No lesions of mucositis present in visible orophaynx Neck - no cervical lymphadenopathy, masses, or stiffness Heart - RRR, no murmurs or rubs, no palpable thrill, normal pulses Lungs - clear to auscultation bilaterally, no wheezes or crackles, breathing symmetrical with no retractions or accessory muscle use Abdomen:No visible rash on abdomen no hepatosplenomegaly, no masses, soft, non- tender, non-distended, normal bowel sounds. Extremities - no LE edema, normal perfusion, no clubbing or cyanosis Musculoskeletal - normal (5/5) strength and tone in arms and legs, normal gait, mobile with normal range of motion of joints Heme - No lymphadenopathy in cervical, axillary or supraclavicular areas; no petechiae or bruising Labs: Recent Labs 12/29/14 0330 12/28/14 0500 12/27/14 0343 12/25/14 0500 12/24/14 0430 12/23/14 0200 WBC 0.0* 0.1* 0.1* < > 0.7* 1.7* 2.9* HGB 7.1* 7.8* 8.8* < > 9.0* 6.9* 7.7* HCT 20.5* 21.9* 25.5* < > 25.5* 19.3* 21.6* PLATELET 4* 12* 22* < > 52* 64* 97* NEUTROABS -- -- -- -- 0.55* 1.56 2.69 < > = values in this interval not displayed. Recent Labs 12/29/14 0330 12/28/14 0500 12/27/14 0343 NA 138 138 141 K 4.0 4.3 4.2 CL 100 99 100 CO2 29 30 26 BUN 14 16 20* CREATININE 0.72 0.68* 0.82 GLUCOSE 101 92 104 Recent Labs 12/29/14 0330 12/28/14 0500 12/27/14 0343 CALCIUM 9.0 9.2 9.3 MAGNESIUM 0.80 0.65* 0.87 PHOS 3.7 3.7 3.4 Recent Labs 12/26/14 0340 12/23/14 0200 AST 30 57* ALT 51* 103* ALKPHOS 93 94 BILITOT 0.3 0.7 BILIDIR 0.1 0.2 No results for input(s): INR, PT, PTT in the last 72 hours. No results for input(s): LDH, URICACID in the last 168 hours. Tumor Lysis Labs: Recent Labs 12/29/14 0330 12/28/14 0500 12/27/14 0343 PHOS 3.7 3.7 3.4 K 4.0 4.3 4.2 Microbiology: Urinalysis from 12/21/14 septic work up negative Urinalysis 12/23/14 + Ketones, Protein and Glucose. - for heme Pertinent radiology/diagnostic studies: Chest x-ray on 12/20/14 IMPRESSION: 1. No focal consolidation to suggest pneumonia. 2. Nonspecific radiodensity projecting over the medial LEFT lung base of uncertain etiology or clinical significance. ASSESSMENT: Myriam De Souza is a 64 y.o. 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 PLAN: # Auto transplant Day +6 today-Stem Cell Infusion Day (12/23/14) -Etoposide reaction with fevers. Work-up for sepsis negative. Chemotherapy/Transplant Meds: # Chemotherapy - CBV Conditioning Regimen prior to autologous stem cell transplant -Carmustine 15mg/kg (dose to be given 825 mg) IV x1 on day -6 (12/17/14) over 2 hours -Day -5 (12/18/14): Rest day -Etoposide 60/mg/kg (dose to be given 3,300 mg) IV x1 on day -4 (12/19/14) over 4 hours -Day -3 (12/20/14): Rest day -Cyclophosphamide 100mg/kg (dose to be given 5,500 mg) IV x1 on day -2 (12/21/14) over 2 hours -Mesna 120mg/kg (dose to be given 3,990 mg) IV x1 dose on day -2 (12/21 ) over 24 hours -Day -1 (12/22/14) Rest day -Day 0 (12/23-11/2014) -Stem Cell Transplant -Days 1-14 (12/17-12/28/14) -Awaiting Count Recovery # Antiemetics: -Zofran 16mg IV or PO beginning on day -6 and ongoing until day -3 -Palonsoetron 0.25 IV push on day -2 one hour prior to cyclophosphamide -Lorazepam 0.5mg PO/IV every 6 hours scheduled nausea/anxiety. May repeat once in 30 minutes if prior dose ineffective. -Aprepitant 125mg PO prior to cyclophosphamide on day -2, then aprepitant 80 mg PO daily on day -1. -Zofran 8mg PO/IV every 8 hours as needed beginning on day +1 # Pre-Medications: -Benadryl 25mg IV 30 minutes prior to etoposide and repeat 2 hours into the infusion. -Hydrocortisone 80mg IV 30 minutes prior to etoposide and repeat 2 hours into the infusion. # Chemotherapy Hydration: - for day -6 (carmustine hydration): give 0.9% NS IV @ 250ml/hr x4 hours before carmustine. Hold during carmustine. Restart @ 250ml for 2 hours after carmustine. - for day -4 (etoposide hydration): concurrent with etoposide run IV 0.9% NS IV @ 1,000mg/hr x 4 hours. Post etoposide, run 0.9% NS at 500ml/hr for 30 minutes, then at 250ml/hr for 30 minutes, then at 125ml/hr for 3 hours then stop. - for day -2 (cyclophosphamide hydration): give 0.9% NS IV @ 250ml/hr starting one hour prior to cyclophosphamide and continuing for at least 6 hours after completion of the cyclophosphamide. # FEN: - Lasix 20mg IV once 4 hours after completing etoposide as needed dyspnea only. Hold if SBP is lessthan 110. - Lasix 20mg IV once daily PRN wt greater than 1 kg above admit baseline - Lasix 20mg for wt greater than 1 kg over 12 hours or input exceeding output by greater than 1000ml per 12 hours. Hold if SBP is less than 90mmHg prior to Lasix administration. -Magnesium and potassium repletion per SOP. # Infection Prophylaxis: - If HSV positive: acyclovir 800mg PO BID on admit or Acyclovir 500mg IV every 12 hours if unable to take by mouth. - Keflex 500 mg QID po daily starting Day 0 -Fluconazole 400mg po daily starting Day 0 - Bactrim DS one table PO once daily from admission until and including day -2. Discontinue after day -2 dose given. - On day +30 start Bactrim DS one table once daily. #Nursing Care -Strict I/O -Caphosol 30mL four times a day -Neutropenic precautions and diet. -Weight BID -Incentive spirometry every 2 hours. -Rectal, oral, skin care per SOP #Mucositis -No oral lesions -Magic mouthwash helping for throat pain #Loss of appetite Nutrition consult ordered. Increasing PO intake. -PO intake encouraged as tolerated -Difficulty maintaining PO fluids. #GI Soft stool, not watery -Will send sample for C.diff if it becomes watery #Anemia -Stable. Will transfuse with 1 unit of RBC if Hgb dips below 7. 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 -Continue Sarna lotion TID. Continue to monitor. -Apply bacitracin to open area (previous suture site) on left chest. Cover with Band-Aid. Monitor site for infection. #Insomnia Continue w/ Ambien nightly. Improving and sustaining sleep patterns. #Pancytopenia due to Chemotherapy Treatment -Expected and anticipated in light of transplant status. -Anticipated count recovery at days 10-14. -Continue neutropenic precautions. -Daily Neupogen subcutaneous until ANC greater than 1,500 x2 days or 5,000 for one day. -Transfuse with platelets if platelets are at or below 5K. If on Lovenox for prophylaxis, transfuseif platelets are at and below 10K. -Hold Lovenox if platelets are below 20K. #Electrolytes Mag and potassium replacement per protocol. CODE STATUS: Full code DIET: Regular ACTIVITY: Walk 1 mile per day DVT Prophylaxis: Lovenox 40 mg daily subcutaneous. Hold when platelets dip below 10K. Transfuse with 1 unit of platelets and give Lovenox after platelet infusion. Patient seen, examined and discussed with Dr Aman Hernandez MD Fellow, Hematology & Oncology Pager [phone] Associated attestation - Sally Newton MD - 12/29/2014 2:58 PM EST BMT/Hematology Inpatient Staff Addendum I have independently interviewed and examined this patient and have personally reviewed the relevant clinical, laboratory and radiological data with the Hematology Inpatient House staff on rounds. Please refer to the comprehensive admit note, with which I concur, for complete details of our encounter with this patient. I have reviewed and endorse the plan as outlined and have made any additions/corrections below. This patient meets criteria for inpatient level of care due to the above medical complexity. 64 yo F s/p CBV conditioning regimen and Day +6 autologous stem cell transplant for DLBLC. + sore throat from mucositis, no visible oral lesions Chemotherapy induced pancytopenia -Platelets transfused today -Neupogen support starts today Infectious PPX Acyclovir 800 BID (liquid) -trouble tolerating pills Keflex 500 Qd (Levaquin allergy) Fluconazole 400 QD Mucositis -no oral lesions -+ sore throat -Magic mouthwash and prn pain medication GI PPX Esomeprazole DVT prophylaxis Lovenox 40 H/O Depression -Continue lexapro Insomnia Ambien prn SALLY NEWTON MD Dept. 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 Mondragon Date of Admission: 12/17/2014 ( Hospital Day 11 days ) Service: 1 [place] [facility] Interval history: Myriam De Souza is a 64 y.o. female with diffuse large B cell lymphoma who is admitted for autologous stem cell transplant. She is day +5. Mild sore throat reported. No oral pain or lesions. Appetite is decreased. Soft stool. No watery diarrhea.. No d/v/n, headache, SOB, pain, fevers, chills. Hospital Problem List: Patient Active Problem List Diagnosis Code ??? Lymphoma C85.90 ??? Depression with anxiety F41.8 ??? Hypokalemia E87.6 ??? Hypomagnesemia E83.42 ??? Neutropenia D70.9 ??? Chemotherapy adverse reaction T45.1X5A Antimicrobials: Acyclovir 800 bid Fluconazole 200 mg bid - begin on day 0 Keflex 500 mg qid - begin on day 0 ( allergy to Levaquin ) Pain meds: Oxycodone 5 mg po Q 6 hours prn Access Lines: -left chest tunneled line site is decreasing in erythema. Left chest line suture site is pink and [employer]. Left hand peripheral line is CDI. Will access mediport at noon. 24 hours after Vancomycin CURRENT MEDS: ??? bacitracin Topical (Top) Daily ??? sodium chloride 0.9 % 5 mL Intravenous Q12H ??? camphor-menthol Topical (Top) TID ??? zolpidem 5 mg Oral Nightly ??? cephalexin 500 mg Oral 4 Times Daily ??? esomeprazole 40 mg Oral Daily ??? supersaturated calcium phosphate 30 mL Oral 4 Times Daily ??? fluconazole 400 mg Oral Daily ??? acyclovir 800 mg Oral BID ??? filgrastim 480 mcg Subcutaneous Daily ??? escitalopram oxalate 10 mg Oral Daily ??? LORazepam 0.5 mg Oral Q6H ??? sodium chloride 0.9 % 5 mL Intravenous BID ??? enoxaparin 40 mg Subcutaneous Daily VITALS: Last value Range last 24 hrs Temperature Temp: 37.1 ??C (98.8 ??F) Temp: [36.7 ??C (98.1 ??F)-37.2 ??C (99 ??F)] Heart Rate Heart Rate: 77 Heart Rate: [77-91] Blood Pressure BP: 116/70 mmHg BP: (96-122)/(64-80) Respiratory Rate Resp: 18 Resp: [18-19] SpO2 SpO2: 97 % SpO2: [95 %-97 %] Intake/Output Summary (Last 24 hours) at 12/28/14 1248 Last data filed at 12/28/14 1229 Gross per 24 hour Intake 1840 ml Output 1200 ml Net 640 ml Patient Vitals for the past 168 hrs: Weight 12/28/14 0643 64.4 kg (141 lb 15.6 oz) 12/27/14 1728 65 kg (143 lb 4.8 oz) 12/27/14 0316 64.2 kg (141 lb 8.6 oz) 12/26/14 1300 65 kg (143 lb 4.8 oz) 12/26/14 0330 64.4 kg (141 lb 15.6 oz) 12/25/14 1702 65 kg (143 lb 4.8 oz) 12/25/14 0500 64.5 kg (142 lb 3.2 oz) 12/24/14 1550 65.2 kg (143 lb 11.8 oz) 12/24/14 0747 65.2 kg (143 lb 11.8 oz) 12/23/14 1744 67 kg (147 lb 11.3 oz) 12/23/14 0433 65.9 kg (145 lb 4.5 oz) 12/22/14 1545 67.8 kg (149 lb 7.6 oz) 12/22/14 0300 68.4 kg (150 lb 12.7 oz) 12/21/14 1538 68.2 kg (150 lb 5.7 oz) Admit wt:68.4 kg. Change in weight to today: -4.2 KG PHYSICAL EXAM: Gen - alert and oriented, no distress, conversant EENT- Membrane is moist and intact. No lesions of mucositis present. Neck - no cervical lymphadenopathy, masses, or stiffness Heart - RRR, no murmurs or rubs, no palpable thrill, normal pulses Lungs - clear to auscultation bilaterally, no wheezes or crackles, breathing symmetrical with no retractions or accessory muscle use Abdomen: Fading confluent maculopapular rash on abdomen, mild pruritis. no hepatosplenomegaly, no masses, soft, non-tender, non-distended, normal bowel sounds. Extremities - no LE edema, normal perfusion, no clubbing or cyanosis Musculoskeletal - normal (5/5) strength and tone in arms and legs, normal gait, mobile with normal range of motion of joints Heme - No lymphadenopathy in cervical, axillary or supraclavicular areas; no petechiae or bruising Labs: Recent Labs 12/28/14 0500 12/27/14 0343 12/26/14 0340 12/25/14 0500 12/24/14 0430 12/23/14 0200 WBC 0.1* 0.1* 0.2* 0.7* 1.7* 2.9* HGB 7.8* 8.8* 8.5* 9.0* 6.9* 7.7* HCT 21.9* 25.5* 24.8* 25.5* 19.3* 21.6* PLATELET 12* 22* 34* 52* 64* 97* NEUTROABS -- -- -- 0.55* 1.56 2.69 Recent Labs 12/28/14 0500 12/27/14 0343 12/26/14 0340 NA 138 141 142 K 4.3 4.2 4.3 CL 99 100 102 CO2 30 26 28 BUN 16 20* 21* CREATININE 0.68* 0.82 0.72 GLUCOSE 92 104 87 Recent Labs 12/28/14 0500 12/27/14 0343 12/26/14 0340 CALCIUM 9.2 9.3 9.1 MAGNESIUM 0.65* 0.87 0.67* PHOS 3.7 3.4 3.5 Recent Labs 12/26/14 0340 12/23/14 0200 AST 30 57* ALT 51* 103* ALKPHOS 93 94 BILITOT 0.3 0.7 BILIDIR 0.1 0.2 No results for input(s): INR, PT, PTT in the last 72 hours. No results for input(s): LDH, URICACID in the last 168 hours. Tumor Lysis Labs: Recent Labs 12/28/14 0500 12/27/14 0343 12/26/14 0340 PHOS 3.7 3.4 3.5 K 4.3 4.2 4.3 Microbiology: Urinalysis from 12/21/14 septic work up negative Urinalysis 12/23/14 + Ketones, Protein and Glucose. - for heme Pertinent radiology/diagnostic studies: Chest x-ray on 12/20/14 IMPRESSION: 1. No focal consolidation to suggest pneumonia. 2. Nonspecific radiodensity projecting over the medial LEFT lung base of uncertain etiology or clinical significance. ASSESSMENT: Myriam De Souza is a 64 y.o. 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 PLAN: # Auto transplant Day 5+ today-Stem Cell Infusion Day (12/23/14) -Etoposide reaction with fevers. Work-up for sepsis negative. Chemotherapy/Transplant Meds: # Chemotherapy - CBV Conditioning Regimen prior to autologous stem cell transplant -Carmustine 15mg/kg (dose to be given 825 mg) IV x1 on day -6 (12/17/14) over 2 hours -Day -5 (12/18/14): Rest day -Etoposide 60/mg/kg (dose to be given 3,300 mg) IV x1 on day -4 (12/19/14) over 4 hours -Day -3 (12/20/14): Rest day -Cyclophosphamide 100mg/kg (dose to be given 5,500 mg) IV x1 on day -2 (12/21/14) over 2 hours -Mesna 120mg/kg (dose to be given 3,990 mg) IV x1 dose on day -2 (12/21 ) over 24 hours -Day -1 (12/22/14) Rest day -Day 0 (12/24/14) -Stem Cell Transplant -Days 1-14 (12/17-12/28/14) -Awaiting Count Recovery # Antiemetics: -Zofran 16mg IV or PO beginning on day -6 and ongoing until day -3 -Palonsoetron 0.25 IV push on day -2 one hour prior to cyclophosphamide -Lorazepam 0.5mg PO/IV every 6 hours scheduled nausea/anxiety. May repeat once in 30 minutes if prior dose ineffective. -Aprepitant 125mg PO prior to cyclophosphamide on day -2, then aprepitant 80 mg PO daily on day -1. -Zofran 8mg PO/IV every 8 hours as needed beginning on day +1 # Pre-Medications: -Benadryl 25mg IV 30 minutes prior to etoposide and repeat 2 hours into the infusion. -Hydrocortisone 80mg IV 30 minutes prior to etoposide and repeat 2 hours into the infusion. # Chemotherapy Hydration: - for day -6 (carmustine hydration): give 0.9% NS IV @ 250ml/hr x4 hours before carmustine. Hold during carmustine. Restart @ 250ml for 2 hours after carmustine. - for day -4 (etoposide hydration): concurrent with etoposide run IV 0.9% NS IV @ 1,000mg/hr x 4 hours. Post etoposide, run 0.9% NS at 500ml/hr for 30 minutes, then at 250ml/hr for 30 minutes, then at 125ml/hr for 3 hours then stop. - for day -2 (cyclophosphamide hydration): give 0.9% NS IV @ 250ml/hr starting one hour prior to cyclophosphamide and continuing for at least 6 hours after completion of the cyclophosphamide. # FEN: - Lasix 20mg IV once 4 hours after completing etoposide as needed dyspnea only. Hold if SBP is lessthan 110. - Lasix 20mg IV once daily PRN wt greater than 1 kg above admit baseline - Lasix 20mg for wt greater than 1 kg over 12 hours or input exceeding output by greater than 1000ml per 12 hours. Hold if SBP is less than 90mmHg prior to Lasix administration. -Magnesium and potassium repletion per SOP. # Infection Prophylaxis: - If HSV positive: acyclovir 800mg PO BID on admit or Acyclovir 500mg IV every 12 hours if unable to take by mouth. - Keflex 500 mg QID po daily starting Day 0 -Fluconazole 400mg po daily starting Day 0 - Bactrim DS one table PO once daily from admission until and including day -2. Discontinue after day -2 dose given. - On day +30 start Bactrim DS one table once daily. #Nursing Care -Strict I/O -Caphosol 30mL four times a day -Neutropenic precautions and diet. -Weight BID -Incentive spirometry every 2 hours. -Rectal, oral, skin care per SOP #Mucositis -No oral lesions -Magic mouthwash helping for throat pain #Loss of appetite Nutrition consult ordered. Increasing PO intake. -PO intake encouraged as tolerated -Difficulty maintaining PO fluids. #GI Soft stool, not watery -Will send sample for C.diff if it becomes watery #Anemia -Stable. Will transfuse with 1 unit of RBC if Hgb dips below 7. 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 -Continue Sarna lotion TID. Continue to monitor. -Apply bacitracin to open area (previous suture site) on left chest. Cover with Band-Aid. Monitor site for infection. #Insomnia Continue w/ Ambien nightly. Improving and sustaining sleep patterns. #Pancytopenia due to Chemotherapy Treatment -Expected and anticipated in light of transplant status. -Anticipated count recovery at days 10-14. -Continue neutropenic precautions. -Daily Neupogen subcutaneous until ANC greater than 1,500 x2 days or 5,000 for one day. -Transfuse with platelets if platelets are at or below 5K. If on Lovenox for prophylaxis, transfuseif platelets are at and below 10K. -Hold Lovenox if platelets are below 20K. #Electrolytes Mag and potassium replacement per protocol. CODE STATUS: Full code DIET: Regular ACTIVITY: Walk 1 mile per day DVT Prophylaxis: Lovenox 40 mg daily subcutaneous. Hold when platelets dip below 10K. Transfuse with 1 unit of platelets and give Lovenox after platelet infusion. SALLY NEWTON MD Dept. Of Hematology Pager [phone] * Krys Butts, RD - 12/27/2014 3:10 PM EST Nutrition Progress Note: S: Per pt: I like shakes in the moment. Appetite: fair Chewing/Swallowing: no problems, but sensitive mouth N/V: no Bowels: daily loose BM O: Patient Active Problem List Diagnosis Code ??? Lymphoma C85.90 ??? Depression with anxiety F41.8 ??? Hypokalemia E87.6 ??? Hypomagnesemia E83.42 ??? Neutropenia D70.9 ??? Chemotherapy adverse reaction T45.1X5A No past medical history on file. Diet: BMT Admit Weight: 67.4 kg Estimated body mass index is 25.39 kg/(m^2) as calculated from the following: Height as of this encounter: 159 cm (5' 2.6). Weight as of this encounter: 64.2 kg (141 lb 8.6 oz). Labs: Lab Results Component Value Date NA 141 12/27/2014 K 4.2 12/27/2014 CL 100 12/27/2014 CO2 26 12/27/2014 BUN 20* 12/27/2014 CREATININE 0.82 12/27/2014 GLUCOSE 104 12/27/2014 MAGNESIUM 0.87 12/27/2014 CALCIUM 9.3 12/27/2014 PHOS 3.4 12/27/2014 AST 30 12/26/2014 ALT 51* 12/26/2014 ALKPHOS 93 12/26/2014 BILITOT 0.3 12/26/2014 BILIDIR 0.1 12/26/2014 Medications: Nexium, Mg-sulfate, caphosol, ativan A: Pt seen for nutrition follow up. Mrs De Souza is frustrated with her lack of appetite and concerned about weight loss. She is eating snacks brought in by family and friends, shakes (protein powder:Spiru Tein brought from home) mixed by nursing and soups. We talked about ordering options. Pt denied the need for different snacks, she will order additional food for her meals to save, so she can be more flexible with her choices. Provided contact information. Encouraged pt to contact Food and Nutrition services with any questions that may arise. P: Continue current diet order Provide pt preferences as needed Will provide cafe menu to maximize choices Encourage good po intake Nutrition to follow throughout hospital stay KRYS BUTTS RD * Iona Smallwood A - 12/27/2014 11:53 AM EST Mixer Crane Operator Encounter Note Patient Name: Myriam De Souza : [id number] MR#: [id number] Admit Date: 12/17/2014 1:53 PM Hospital Day 14 days Narrative: Initial visit with pt and her daughter while rounding on [facility] [place]. Assessment: Myriam and her daughter appeared in good spirits, reflecting on Myriam's journey through treatment thus far, and preparing for Myriam's daughter to head home to [facility]. Both appeared very supportiveof one another. Myriam shared that she grew up in the Conservative Evangel[employer] tradition. She shared thatas an adult she identifies culturally with her tradition, but not necessarily religiously. Intervention and Outcome: Brief intro to staff physician services and initial conversation with Myriam and her dtr. Spiritual and emotional support, through listening presence and life review. Visit ended when Myriam received a phone call from her insurance company. This commercial underwriter wished blessings to her daughter, who offered thanks for the visit. Left a business card for pt. Follow-up: Mixer Crane Operator remains available for follow-up visit and spiritual care support of pt. Time in Direct Care: 10 minutes IONA SMALLWOOD 12/31/2014 * Kimberly Mondragon MD - 12/27/2014 8:57 AM EST 1 [place] [facility] Hematology/Oncology/SCT Progress Note Patient info: Patient Name: Myriam De Souza : 1950 Service: Hematology - GUEST SERVICE MANAGER Responsible Attending: Dr. Mondragon Date of Admission: 12/17/2014 ( Hospital Day 10 days ) Service: 1 [place] [facility] Interval history: Myriam De Souza is a 64 y.o. female with diffuse large B cell lymphoma who is admitted for autologous stem cell transplant. She is day +4. Abdominal rash is improving. Small open areas where tunneled line site was sutured. She has improved appetite. No nausea and eating well. Increasing drinking. Frustrated at inability to eat real meals due to low appetite from normal appetite at home. Increased mobility and feeling well today. Daily BM is starting to firm up. Less loose today. No d/v/n, headache, SOB, pain, fevers, chills. Hospital Problem List: Patient Active Problem List Diagnosis Code ??? Lymphoma C85.90 ??? Depression with anxiety F41.8 ??? Hypokalemia E87.6 ??? Hypomagnesemia E83.42 ??? Neutropenia D70.9 ??? Chemotherapy adverse reaction T45.1X5A Antimicrobials: Acyclovir 800 bid Fluconazole 200 mg bid - begin on day 0 Keflex 500 mg qid - begin on day 0 ( allergy to Levaquin ) Pain meds: Oxycodone 5 mg po Q 6 hours prn Access Lines: -left chest tunneled line site is decreasing in erythema. Left chest line suture site is pink and ROSEM[employer]. Left hand peripheral line is CDI. Will access mediport at noon. 24 hours after Vancomycin CURRENT MEDS: ??? sodium chloride 0.9 % 5 mL Intravenous Q12H ??? camphor-menthol Topical (Top) TID ??? zolpidem 5 mg Oral Nightly ??? cephalexin 500 mg Oral 4 Times Daily ??? esomeprazole 40 mg Oral Daily ??? supersaturated calcium phosphate 30 mL Oral 4 Times Daily ??? fluconazole 400 mg Oral Daily ??? acyclovir 800 mg Oral BID ??? [START ON 12/28/2014] filgrastim 480 mcg Subcutaneous Daily ??? escitalopram oxalate 10 mg Oral Daily ??? LORazepam 0.5 mg Oral Q6H ??? sodium chloride 0.9 % 5 mL Intravenous BID ??? enoxaparin 40 mg Subcutaneous Daily VITALS: Last value Range last 24 hrs Temperature Temp: 36.9 ??C (98.4 ??F) Temp: [36.8 ??C (98.2 ??F)-37.2 ??C (99 ??F)] Heart Rate Heart Rate: 79 Heart Rate: [79-91] Blood Pressure BP: 124/66 mmHg BP: (110-124)/(60-76) Respiratory Rate Resp: 18 Resp: [18-20] SpO2 SpO2: 96 % SpO2: [96 %-97 %] Intake/Output Summary (Last 24 hours) at 12/27/14 0857 Last data filed at 12/27/14 0600 Gross per 24 hour Intake 1705 ml Output 1425 ml Net 280 ml Patient Vitals for the past 168 hrs: Weight 12/27/14 0316 64.2 kg (141 lb 8.6 oz) 12/26/14 1300 65 kg (143 lb 4.8 oz) 12/26/14 0330 64.4 kg (141 lb 15.6 oz) 12/25/14 1702 65 kg (143 lb 4.8 oz) 12/25/14 0500 64.5 kg (142 lb 3.2 oz) 12/24/14 1550 65.2 kg (143 lb 11.8 oz) 12/24/14 0747 65.2 kg (143 lb 11.8 oz) 12/23/14 1744 67 kg (147 lb 11.3 oz) 12/23/14 0433 65.9 kg (145 lb 4.5 oz) 12/22/14 1545 67.8 kg (149 lb 7.6 oz) 12/22/14 0300 68.4 kg (150 lb 12.7 oz) 12/21/14 1538 68.2 kg (150 lb 5.7 oz) 12/21/14 0450 67.6 kg (149 lb 0.5 oz) 12/20/14 1524 68.8 kg (151 lb 10.8 oz) Admit wt:68.4 kg. Change in weight to today: -4.2 KG PHYSICAL EXAM: Gen - alert and oriented, no distress, conversant EENT- Membrane is moist and intact. No lesions of mucositis present. Neck - no cervical lymphadenopathy, masses, or stiffness Heart - RRR, no murmurs or rubs, no palpable thrill, normal pulses Lungs - clear to auscultation bilaterally, no wheezes or crackles, breathing symmetrical with no retractions or accessory muscle use Abdomen: Fading confluent maculopapular rash on abdomen, mild pruritis. no hepatosplenomegaly, no masses, soft, non-tender, non-distended, normal bowel sounds. Extremities - no LE edema, normal perfusion, no clubbing or cyanosis Musculoskeletal - normal (5/5) strength and tone in arms and legs, normal gait, mobile with normal range of motion of joints Heme - No lymphadenopathy in cervical, axillary or supraclavicular areas; no petechiae or bruising Labs: Recent Labs 12/27/1434212/26/1433912/25/14 0500 12/24/14 0430 12/23/14 0200 WBC 0.1* 0.2* 0.7* 1.7* 2.9* HGB 8.8* 8.5* 9.0* 6.9* 7.7* HCT 25.5* 24.8* 25.5* 19.3* 21.6* PLATELET 22* 34* 52* 64* 97* NEUTROABS -- -- 0.55* 1.56 2.69 Recent Labs 12/27/1434212/26/14 0340 12/25/14 0500 NA 141 142 140 K 4.2 4.3 4.0 CL 100 102 100 CO2 26 28 30 BUN 20* 21* 17 CREATININE 0.82 0.72 0.65* GLUCOSE 104 87 96 Recent Labs 12/27/1434212/26/14 0340 12/25/14 0500 CALCIUM 9.3 9.1 9.4 MAGNESIUM 0.87 0.67* 0.75 PHOS 3.4 3.5 3.8 Recent Labs 12/26/14 0340 12/23/14 0200 12/21/14 0445 AST 30 57* 213* ALT 51* 103* 174* ALKPHOS 93 94 79 BILITOT 0.3 0.7 0.7 BILIDIR 0.1 0.2 0.2 No results for input(s): INR, PT, PTT in the last 72 hours. No results for input(s): LDH, URICACID in the last 168 hours. Tumor Lysis Labs: Recent Labs 12/27/14 0343 12/26/14 0340 12/25/14 0500 PHOS 3.4 3.5 3.8 K 4.2 4.3 4.0 Microbiology: Urinalysis from 12/21/14 septic work up negative Urinalysis 12/23/14 + Ketones, Protein and Glucose. - for heme Pertinent radiology/diagnostic studies: Chest x-ray on 12/20/14 IMPRESSION: 1. No focal consolidation to suggest pneumonia. 2. Nonspecific radiodensity projecting over the medial LEFT lung base of uncertain etiology or clinical significance. ASSESSMENT: Myriam De Souza is a 64 y.o. 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 PLAN: # Auto transplant Day 4+ today-Stem Cell Infusion Day (12/23/14) -Etoposide reaction with fevers. Work-up for sepsis negative. Chemotherapy/Transplant Meds: # Chemotherapy - CBV Conditioning Regimen prior to autologous stem cell transplant -Carmustine 15mg/kg (dose to be given 825 mg) IV x1 on day -6 (12/17/14) over 2 hours -Day -5 (12/18/14): Rest day -Etoposide 60/mg/kg (dose to be given 3,300 mg) IV x1 on day -4 (12/19/14) over 4 hours -Day -3 (12/20/14): Rest day -Cyclophosphamide 100mg/kg (dose to be given 5,500 mg) IV x1 on day -2 (12/21/14) over 2 hours -Mesna 120mg/kg (dose to be given 3,990 mg) IV x1 dose on day -2 (12/21 ) over 24 hours -Day -1 (12/22/14) Rest day -Day 0 (12/24/14) -Stem Cell Transplant -Days 1-14 (12/17-12/28/14) -Awaiting Count Recovery # Antiemetics: -Zofran 16mg IV or PO beginning on day -6 and ongoing until day -3 -Palonsoetron 0.25 IV push on day -2 one hour prior to cyclophosphamide -Lorazepam 0.5mg PO/IV every 6 hours scheduled nausea/anxiety. May repeat once in 30 minutes if prior dose ineffective. -Aprepitant 125mg PO prior to cyclophosphamide on day -2, then aprepitant 80 mg PO daily on day -1. -Zofran 8mg PO/IV every 8 hours as needed beginning on day +1 # Pre-Medications: -Benadryl 25mg IV 30 minutes prior to etoposide and repeat 2 hours into the infusion. -Hydrocortisone 80mg IV 30 minutes prior to etoposide and repeat 2 hours into the infusion. # Chemotherapy Hydration: - for day -6 (carmustine hydration): give 0.9% NS IV @ 250ml/hr x4 hours before carmustine. Hold during carmustine. Restart @ 250ml for 2 hours after carmustine. - for day -4 (etoposide hydration): concurrent with etoposide run IV 0.9% NS IV @ 1,000mg/hr x 4 hours. Post etoposide, run 0.9% NS at 500ml/hr for 30 minutes, then at 250ml/hr for 30 minutes, then at 125ml/hr for 3 hours then stop. - for day -2 (cyclophosphamide hydration): give 0.9% NS IV @ 250ml/hr starting one hour prior to cyclophosphamide and continuing for at least 6 hours after completion of the cyclophosphamide. # FEN: - Lasix 20mg IV once 4 hours after completing etoposide as needed dyspnea only. Hold if SBP is lessthan 110. - Lasix 20mg IV once daily PRN wt greater than 1 kg above admit baseline - Lasix 20mg for wt greater than 1 kg over 12 hours or input exceeding output by greater than 1000ml per 12 hours. Hold if SBP is less than 90mmHg prior to Lasix administration. -Magnesium and potassium repletion per SOP. # Infection Prophylaxis: - If HSV positive: acyclovir 800mg PO BID on admit or Acyclovir 500mg IV every 12 hours if unable to take by mouth. - Keflex 500 mg QID po daily starting Day 0 -Fluconazole 400mg po daily starting Day 0 - Bactrim DS one table PO once daily from admission until and including day -2. Discontinue after day -2 dose given. - On day +30 start Bactrim DS one table once daily. #Nursing Care -Strict I/O -Caphosol 30mL four times a day -Neutropenic precautions and diet. -Weight BID -Incentive spirometry every 2 hours. -Rectal, oral, skin care per SOP #Loss of appetite-Improving Nutrition consult ordered. Increasing PO intake. #Weight Loss -Infuse 1L of LR today for less than 4KG of weight loss. -Difficulty maintaining PO fluids. #Anemia -Stable. Will transfuse with 1 unit of RBC if Hgb dips below 7. 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 -Continue Sarna lotion TID. Continue to monitor. -Apply bacitrain to open area (previous suture site) on left chest. Cover with bandaid. Monitor site for infection. #Insomnia Continue w/ Ambien nightly. Improving and sustaining sleep patterns. #Pancytopenia due to Chemotherapy Treatment -Expected and anticipated in light of transplant status. -Anticipated count recovery at days 10-14. -Continue neutropenic precautions. -Daily Neupogen subcutaneous until ANC greater than 1,500 x2 days or 5,000 for one day. -Transfuse with platelets if platelets are at or below 5K. If on Lovenox for prophylaxis, transfuseif platelets are at and below 10K. -Hold Lovenox if platelets are below 20K. #Electrolytes Mag and potassium replacement per protocol. CODE STATUS: Full code DIET: Regluar ACTIVITY: Walk 1 mile per day DVT Prophylaxis: Lovenox 40 mg daily subcutaneous. Hold when platelets dip below 10K. Transfuse with 1 unit of platelets and give Lovenox after platelet infusion. Zayra Leach SETTLEMENT TECHNICIAN, LEATHER SCRAPER [facility] Hematology/Oncology-[address] [place] [address] Pager: [phone]+++++++++++++++++++++++++++++++++++++++++++++++++++++++++++++++ Attending Addendum: I agree with the history, physical, assessment and plan of the housestaff. I have seen and examinedthe patient on rounds and I have discussed the management with the team. I have reviewed all pertinent laboratory and radiographic findings. This patient meets criteria for inpatient level of care due to the above medical complexity. I agree with the plan above. * Larisa Hoskins RN - 12/26/2014 1:09 PM EST Office of Care Management Conche Operator RN Continued Hospitalization update/Discharge Planning update Reviewed record and discussed pt with Alonzo Leach APRN for inpt heme-onc service; and at interdisciplinary discharge rounds. Reason for continued hospitalization: 64 y.o. female with diffuse large B cell lymphoma who is admitted for autologous stem cell transplant. She is day +3. (12/26/2014, ezra marie) Still pancytopenic, and not yet medically ready for discharge. Planned removal today of tunneled nonpheresis CVC, placed 12/17, because of erythema at exit site. Pt is maintaining independent functional status thru hospitalization to date. Anticipate another 10 days +/- until count recovery appropriate for discharge. No continuing care needs identified at this time, but will re-assess closer to DC. PLAN: Conche Operator RN will continue to follow for coordination of care and discharge planning. Srinivasan Hoskins RN [employer] System Engineer of Care Management [phone] * Jewels Knowles APRN - 12/26/2014 9:37 AM EST PRE-PROCEDURE VIR NOTE Date of : 1950 Age: 64 y.o. PCP: SOPHY FUNES Referring Physician (if different): Hany Indication: Peritubal erythema Planned Procedure: Removal of tunneled CVC Chief Complaint/Diagnosis: 64 y.o. 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 A tunneled nonpheresis CVC was placed 12/17/14, and is now erythematous at the exitsite. We have been consulted for removal of CVC. TEGADERM ALLERGY. PLT 34, 000. Allergies Allergen Reactions ??? Levofloxacin Other (See Comments) tendonitis ??? Tegaderm [Transparent Dressings] Other (See Comments) Unsure if actual allergy, please try [id number] Skin tears/rawness Scheduled Meds: ??? vancomycin 1 g Intravenous Once ??? sodium chloride 0.9 % 5 mL Intravenous Q12H ??? camphor-menthol Topical (Top) TID ??? zolpidem 5 mg Oral Nightly ??? cephalexin 500 mg Oral 4 Times Daily ??? esomeprazole 40 mg Oral Daily ??? supersaturated calcium phosphate 30 mL Oral 4 Times Daily ??? fluconazole 400 mg Oral Daily ??? acyclovir 800 mg Oral BID ??? [START ON 12/28/2014] filgrastim 480 mcg Subcutaneous Daily ??? escitalopram oxalate 10 mg Oral Daily ??? LORazepam 0.5 mg Oral Q6H ??? sodium chloride 0.9 % 5 mL Intravenous BID ??? enoxaparin 40 mg Subcutaneous Daily Continuous Infusions: PRN Meds:.sodium chloride 0.9 %, sodium chloride 0.9 %, senna-docusate, polyethylene glycol (MIRALAX)oral powder, acetaminophen, sodium chloride, LORazepam, ondansetron, prochlorperazine, furosemide,furosemide, potassium chloride, potassium chloride, potassium chloride, magnesium sulfate, magnesium sulfate, potassium phosphate, potassium phosphate, alteplase, heparin, porcine, sodium chloride 0.9 %, sodium chloride 0.9 %, lidocaine, oxyCODONE Pertinent ROS: as per HPI Pertinent Family History: non contributory Social History: n/a Labs: Lab Results Component Value Date WBC 0.2* 12/26/2014 ANC 3.60 11/04/2014 HCT 24.8* 12/26/2014 PLATELET 34* 12/26/2014 INR 1.0 12/10/2014 BUN 21* 12/26/2014 Assessment / Plan: 64 y.o. 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 A tunneled nonpheresis CVC was placed 12/17/14, and is now erythematous at the exit site. We have been consulted for removal of CVC. TEGADERM ALLERGY. PLT 34, 000. * Kimberly Mondragon MD - 12/26/2014 8:55 AM EST 1 [place] [facility] Hematology/Oncology/SCT Progress Note Patient info: Patient Name: Myriam De Souza : 1950 Service: Hematology - GUEST SERVICE MANAGER Responsible Attending: Dr. Mondragon Date of Admission: 12/17/2014 ( Hospital Day 9 days ) Service: [facility] Nurse Practitioner Services Interval history: Myriam De Souza is a 64 y.o. female with diffuse large B cell lymphoma who is admitted for autologous stem cell transplant. She is day +3. Abdominal rash is improving. She has improved appetite. No nausea and eating well. Increasing drinking. Increased mobility and feeling well today. Daily loose BM--not watery. No d/v/n, headache, SOB, pain, fevers, chills. Hospital Problem List: Patient Active Problem List Diagnosis Code ??? Lymphoma C85.90 ??? Depression with anxiety F41.8 ??? Hypokalemia E87.6 ??? Hypomagnesemia E83.42 ??? Neutropenia D70.9 ??? Chemotherapy adverse reaction T45.1X5A Antimicrobials: Acyclovir 800 bid Fluconazole 200 mg bid - begin on day 0 Keflex 500 mg qid - begin on day 0 ( allergy to Levaquin ) Pain meds: Oxycodone 5 mg po Q 6 hours prn Access Lines: -Left chest tunneled line site is pink at insertion site. Right chest single lumen mediport is not accessed at current time. In light of 0 ANC, will infuse with 1 gram Vancomycin IV x1 dose in tunneled line site. Insert peripheral IV and access mediport after vancomycin is infused. CURRENT MEDS: ??? vancomycin 1 g Intravenous Once ??? sodium chloride 0.9 % 5 mL Intravenous Q12H ??? camphor-menthol Topical (Top) TID ??? nystatin 500,000 Units Oral 4 Times Daily ??? zolpidem 5 mg Oral Nightly ??? cephalexin 500 mg Oral 4 Times Daily ??? esomeprazole 40 mg Oral Daily ??? supersaturated calcium phosphate 30 mL Oral 4 Times Daily ??? fluconazole 400 mg Oral Daily ??? acyclovir 800 mg Oral BID ??? [START ON 12/28/2014] filgrastim 480 mcg Subcutaneous Daily ??? escitalopram oxalate 10 mg Oral Daily ??? LORazepam 0.5 mg Oral Q6H ??? sodium chloride 0.9 % 5 mL Intravenous BID ??? enoxaparin 40 mg Subcutaneous Daily VITALS: Last value Range last 24 hrs Temperature Temp: 37.2 ??C (99 ??F) Temp: [36.9 ??C (98.4 ??F)-37.2 ??C (99 ??F)] Heart Rate Heart Rate: 89 Heart Rate: [82-89] Blood Pressure BP: 120/72 mmHg BP: (106-122)/(60-80) Respiratory Rate Resp: 18 Resp: [18] SpO2 SpO2: 96 % SpO2: [96 %-98 %] Intake/Output Summary (Last 24 hours) at 12/26/14 0859 Last data filed at 12/26/14 0833 Gross per 24 hour Intake 1605 ml Output 875 ml Net 730 ml Patient Vitals for the past 168 hrs: Weight 12/26/14 0330 64.4 kg (141 lb 15.6 oz) 12/25/14 1702 65 kg (143 lb 4.8 oz) 12/25/14 0500 64.5 kg (142 lb 3.2 oz) 12/24/14 1550 65.2 kg (143 lb 11.8 oz) 12/24/14 0747 65.2 kg (143 lb 11.8 oz) 12/23/14 1744 67 kg (147 lb 11.3 oz) 12/23/14 0433 65.9 kg (145 lb 4.5 oz) 12/22/14 1545 67.8 kg (149 lb 7.6 oz) 12/22/14 0300 68.4 kg (150 lb 12.7 oz) 12/21/14 1538 68.2 kg (150 lb 5.7 oz) 12/21/14 0450 67.6 kg (149 lb 0.5 oz) 12/20/14 1524 68.8 kg (151 lb 10.8 oz) 12/20/14 0550 68.2 kg (150 lb 5.7 oz) 12/19/14 1525 66.8 kg (147 lb 4.3 oz) Admit wt:68.4 kg. Change in weight to today: -2.4 KG PHYSICAL EXAM: Gen - alert and oriented, no distress, conversant EENT- No furry coating on tongue. Membrane is moist and intact. No lesions of mucositis present. Neck - no cervical lymphadenopathy, masses, or stiffness Heart - RRR, no murmurs or rubs, no palpable thrill, normal pulses Lungs - clear to auscultation bilaterally, no wheezes or crackles, breathing symmetrical with no retractions or accessory muscle use Abdomen: Fading confluent maculopapular rash on abdomen, mild pruritis. no hepatosplenomegaly, no masses, soft, non-tender, non-distended, normal bowel sounds. Extremities - no LE edema, normal perfusion, no clubbing or cyanosis Musculoskeletal - normal (5/5) strength and tone in arms and legs, normal gait, mobile with normal range of motion of joints Heme - No lymphadenopathy in cervical, axillary or supraclavicular areas; no petechiae or bruising Labs: Recent Labs 12/26/140 12/25/14 0500 12/24/14 0430 12/23/14 0200 WBC 0.2* 0.7* 1.7* 2.9* HGB 8.5* 9.0* 6.9* 7.7* HCT 24.8* 25.5* 19.3* 21.6* PLATELET 34* 52* 64* 97* NEUTROABS -- 0.55* 1.56 2.69 Recent Labs 12/26/14 0340 12/25/14 0500 12/24/14 0430 NA 142 140 142 K 4.3 4.0 3.9 CL 102 100 102 CO2 28 30 31 BUN 21* 17 13 CREATININE 0.72 0.65* 0.60* GLUCOSE 87 96 88 Recent Labs 12/26/14 0340 12/25/14 0500 12/24/14 0430 CALCIUM 9.1 9.4 9.0 MAGNESIUM 0.67* 0.75 0.56* PHOS 3.5 3.8 3.4 Recent Labs 12/26/14 0340 12/23/14 0200 12/21/14 0445 AST 30 57* 213* ALT 51* 103* 174* ALKPHOS 93 94 79 BILITOT 0.3 0.7 0.7 BILIDIR 0.1 0.2 0.2 No results for input(s): INR, PT, PTT in the last 72 hours. No results for input(s): LDH, URICACID in the last 168 hours. Tumor Lysis Labs: Recent Labs 12/26/14 0340 12/25/14 0500 12/24/14 0430 PHOS 3.5 3.8 3.4 K 4.3 4.0 3.9 Microbiology: Urinalysis from 12/21/14 septic work up negative Urinalysis 12/23/14 + Ketones, Protein and Glucose. - for heme Pertinent radiology/diagnostic studies: Chest x-ray on 12/20/14 IMPRESSION: 1. No focal consolidation to suggest pneumonia. 2. Nonspecific radiodensity projecting over the medial LEFT lung base of uncertain etiology or clinical significance. ASSESSMENT: Myriam De Souza is a 64 y.o. 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 PLAN: # Auto transplant Day 3+ today-Stem Cell Infusion Day (12/23/14) -Etoposide reaction with fevers. Work-up for sepsis negative. Chemotherapy/Transplant Meds: # Chemotherapy - CBV Conditioning Regimen prior to autologous stem cell transplant -Carmustine 15mg/kg (dose to be given 825 mg) IV x1 on day -6 (12/17/14) over 2 hours -Day -5 (12/18/14): Rest day -Etoposide 60/mg/kg (dose to be given 3,300 mg) IV x1 on day -4 (12/19/14) over 4 hours -Day -3 (12/20/14): Rest day -Cyclophosphamide 100mg/kg (dose to be given 5,500 mg) IV x1 on day -2 (12/21/14) over 2 hours -Mesna 120mg/kg (dose to be given 3,990 mg) IV x1 dose on day -2 (12/21 ) over 24 hours -Day -1 (12/22/14) Rest day -Day 0 (12/24/14) -Stem Cell Transplant -Days 1-14 (12/17-12/28/14) -Awaiting Count Recovery # Antiemetics: -Zofran 16mg IV or PO beginning on day -6 and ongoing until day -3 -Palonsoetron 0.25 IV push on day -2 one hour prior to cyclophosphamide -Lorazepam 0.5mg PO/IV every 6 hours scheduled nausea/anxiety. May repeat once in 30 minutes if prior dose ineffective. -Aprepitant 125mg PO prior to cyclophosphamide on day -2, then aprepitant 80 mg PO daily on day -1. -Zofran 8mg PO/IV every 8 hours as needed beginning on day +1 # Pre-Medications: -Benadryl 25mg IV 30 minutes prior to etoposide and repeat 2 hours into the infusion. -Hydrocortisone 80mg IV 30 minutes prior to etoposide and repeat 2 hours into the infusion. # Chemotherapy Hydration: - for day -6 (carmustine hydration): give 0.9% NS IV @ 250ml/hr x4 hours before carmustine. Hold during carmustine. Restart @ 250ml for 2 hours after carmustine. - for day -4 (etoposide hydration): concurrent with etoposide run IV 0.9% NS IV @ 1,000mg/hr x 4 hours. Post etoposide, run 0.9% NS at 500ml/hr for 30 minutes, then at 250ml/hr for 30 minutes, then at 125ml/hr for 3 hours then stop. - for day -2 (cyclophosphamide hydration): give 0.9% NS IV @ 250ml/hr starting one hour prior to cyclophosphamide and continuing for at least 6 hours after completion of the cyclophosphamide. # FEN: - Lasix 20mg IV once 4 hours after completing etoposide as needed dyspnea only. Hold if SBP is lessthan 110. - Lasix 20mg IV once daily PRN wt greater than 1 kg above admit baseline - Lasix 20mg for wt greater than 1 kg over 12 hours or input exceeding output by greater than 1000ml per 12 hours. Hold if SBP is less than 90mmHg prior to Lasix administration. -Magnesium and potassium repletion per SOP. # Infection Prophylaxis: - If HSV positive: acyclovir 800mg PO BID on admit or Acyclovir 500mg IV every 12 hours if unable to take by mouth. - Keflex 500 mg QID po daily starting Day 0 -Fluconazole 400mg po daily starting Day 0 - Bactrim DS one table PO once daily from admission until and including day -2. Discontinue after day -2 dose given. - On day +30 start Bactrim DS one table once daily. #Nursing Care -Strict I/O -Caphosol 30mL four times a day -Neutropenic precautions and diet. -Weight BID -Incentive spirometry every 2 hours. -Rectal, oral, skin care per SOP # Nausea Not gettingscheduled Zofran 16 mg BID for nausea on account of headaches and constipation. Ativan 0.5 mg q 6 hours #Loss of appetite-Improving Nutrition consult ordered. Increasing PO intake. -Urinalysis shows ketones--evidence of decreased caloric intake. #Weight Loss -Will transfuse with 1 L of LR if unable to increase weight by noon. Goal of drinking 1L by noon. #Thursh-Resolved -Will d/c nystatin s/s #Anemia -Stable. Will transfuse with 1 unit of RBC if Hgb dips below 7. #Appliance Counselor -Will transfuse with 1 gram Vancomycin IV through tunneled line. Remove tunneled line. Use peripheral IV for procedure of tunneled line removal. Then access mediport after vancomycin is infused and tunneled line is removed. #Anxiety Ativan as ordered #Insomnia Continue w/ Ambien nightly. Improving and sustaining sleep patterns. #Electrolytes Mag and potassium replacement per protocol. CODE STATUS: Full code DIET: Regluar ACTIVITY: Walk 1 mile per day DVT Prophylaxis: Lovenox 40 mg daily subcutaneous. Hold when platelets dip below 10K. Transfuse with 1 unit of platelets and give Lovenox after platelet infusion. Zayra Leach SETTLEMENT TECHNICIAN, LEATHER SCRAPER [facility] Hematology/Oncology-[address] [place] [address] Pager: [phone]+++++++++++++++++++++++++++++++++++++++++++++++++++++++++++++++ Attending Addendum: I agree with the history, physical, assessment and plan of the housestaff. I have seen and examinedthe patient on rounds and I have discussed the management with the team. I have reviewed all pertinent laboratory and radiographic findings. This patient meets criteria for inpatient level of care due to the above medical complexity. I agree with the plan above. * Moni Webb LPN - 12/25/2014 11:48 AM EST Therapeutic massage given. Myriam receptive and appreciative, stating Come back any time! Prior to session anxiety rated 4/10; after session 0/10. Prior to session fatigue rated 5/10; after session 3/10. [facility] Team will try and see 2-3x/week. * Kimberly Mondragon MD - 12/25/2014 9:02 AM EST 1 [place] [facility] Hematology/Oncology/SCT Progress Note Patient info: Patient Name: Myriam De Souza : 1950 Service: Hematology - GUEST SERVICE MANAGER Responsible Attending: Dr. Mondragon Date of Admission: 12/17/2014 ( Hospital Day 8 days ) Service: 1 [place] Nurse Practitioner Services Interval history: Myriam De Souza is a 64 y.o. female with diffuse large B cell lymphoma who is admitted for autologous stem cell transplant. She is day +2. Patient developed abdominal rash and x1 hive 10 minutes after blood transfusion completed. Resolvedwith Benadryl 25mg IV. Transfusion reaction work-up sent. She has improved appetite. No nausea and eating well. Increased mobility and feeling well today. Daily loose BM. No d/v/n, headache, SOB, pain. Hospital Problem List: Patient Active Problem List Diagnosis Code ??? Lymphoma C85.90 ??? Depression with anxiety F41.8 ??? Hypokalemia E87.6 ??? Hypomagnesemia E83.42 ??? Neutropenia D70.9 ??? Chemotherapy adverse reaction T45.1X5A Antimicrobials: Acyclovir 800 bid Fluconazole 200 mg bid - begin on day 0 Keflex 500 mg qid - begin on day 0 ( allergy to Levaquin ) Pain meds: Oxycodone 5 mg po Q 6 hours prn Access Lines: -Left chest tunneled line site is CD with no signs of infection. Dressing is curling at edges. RN to change today. Right chest single lumen mediport is not accessed. CURRENT MEDS: ??? nystatin 500,000 Units Oral 4 Times Daily ??? zolpidem 5 mg Oral Nightly ??? cephalexin 500 mg Oral 4 Times Daily ??? esomeprazole 40 mg Oral Daily ??? supersaturated calcium phosphate 30 mL Oral 4 Times Daily ??? fluconazole 400 mg Oral Daily ??? acyclovir 800 mg Oral BID ??? [START ON 12/28/2014] filgrastim 480 mcg Subcutaneous Daily ??? escitalopram oxalate 10 mg Oral Daily ??? LORazepam 0.5 mg Oral Q6H ??? sodium chloride 0.9 % 5 mL Intravenous BID ??? enoxaparin 40 mg Subcutaneous Daily VITALS: Last value Range last 24 hrs Temperature Temp: 37 ??C (98.6 ??F) Temp: [36.7 ??C (98.1 ??F)-37.1 ??C (98.8 ??F)] Heart Rate Heart Rate: 78 Heart Rate: [71-82] Blood Pressure BP: 114/76 mmHg BP: (106-128)/(68-76) Respiratory Rate Resp: 18 Resp: [16-20] SpO2 SpO2: 94 % SpO2: [94 %-98 %] Intake/Output Summary (Last 24 hours) at 12/25/14 0902 Last data filed at 12/25/14 0800 Gross per 24 hour Intake 2004 ml Output 2300 ml Net -296 ml Patient Vitals for the past 168 hrs: Weight 12/25/14 0500 64.5 kg (142 lb 3.2 oz) 12/24/14 1550 65.2 kg (143 lb 11.8 oz) 12/24/14 0747 65.2 kg (143 lb 11.8 oz) 12/23/14 1744 67 kg (147 lb 11.3 oz) 12/23/14 0433 65.9 kg (145 lb 4.5 oz) 12/22/14 1545 67.8 kg (149 lb 7.6 oz) 12/22/14 0300 68.4 kg (150 lb 12.7 oz) 12/21/14 1538 68.2 kg (150 lb 5.7 oz) 12/21/14 0450 67.6 kg (149 lb 0.5 oz) 12/20/14 1524 68.8 kg (151 lb 10.8 oz) 12/20/14 0550 68.2 kg (150 lb 5.7 oz) 12/19/14 1525 66.8 kg (147 lb 4.3 oz) 12/19/14 0344 65.9 kg (145 lb 4.5 oz) 12/18/14 1413 67.9 kg (149 lb 11.1 oz) Admit wt:68.4 kg. Change in weight to today: -3.9 KG PHYSICAL EXAM: Gen - alert and oriented, no distress, conversant EENT- Scant white furry coating on tongue. Decreased in size from yesterday. Neck - no cervical lymphadenopathy, masses, or stiffness Heart - RRR, no murmurs or rubs, no palpable thrill, normal pulses Lungs - clear to auscultation bilaterally, no wheezes or crackles, breathing symmetrical with no retractions or accessory muscle use Abdomen: Fading confluent maculopapular rash on abdomen, mild pruritis. no hepatosplenomegaly, no masses, soft, non-tender, non-distended, normal bowel sounds. Extremities - no LE edema, normal perfusion, no clubbing or cyanosis Musculoskeletal - normal (5/5) strength and tone in arms and legs, normal gait, mobile with normal range of motion of joints Heme - No lymphadenopathy in cervical, axillary or supraclavicular areas; no petechiae or bruising Labs: Recent Labs 12/25/14 0500 12/24/140 12/23/14 0200 WBC 0.7* 1.7* 2.9* HGB 9.0* 6.9* 7.7* HCT 25.5* 19.3* 21.6* PLATELET 52* 64* 97* NEUTROABS 0.55* 1.56 2.69 Recent Labs 12/25/14 0500 12/24/14 0430 12/23/14 0200 NA 140 142 142 K 4.0 3.9 4.1 CL 100 102 102 CO2 30 31 28 BUN 17 13 15 CREATININE 0.65* 0.60* 0.73 GLUCOSE 96 88 86 Recent Labs 12/25/14 0500 12/24/14 0430 12/23/14 0200 CALCIUM 9.4 9.0 9.7 MAGNESIUM 0.75 0.56* 0.79 PHOS 3.8 3.4 3.9 Recent Labs 12/23/14 0200 12/21/14 0445 AST 57* 213* ALT 103* 174* ALKPHOS 94 79 BILITOT 0.7 0.7 BILIDIR 0.2 0.2 No results for input(s): INR, PT, PTT in the last 72 hours. No results for input(s): LDH, URICACID in the last 168 hours. Tumor Lysis Labs: Recent Labs 12/25/14 0500 12/24/14 0430 12/23/14 0200 PHOS 3.8 3.4 3.9 K 4.0 3.9 4.1 Microbiology: Urinalysis from 12/21/14 septic work up negative Urinalysis 12/23/14 + Ketones, Protein and Glucose. - for heme Pertinent radiology/diagnostic studies: Chest x-ray on 12/20/14 IMPRESSION: 1. No focal consolidation to suggest pneumonia. 2. Nonspecific radiodensity projecting over the medial LEFT lung base of uncertain etiology or clinical significance. ASSESSMENT: Myriam De Souza is a 64 y.o. 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 PLAN: # Auto transplant Day 2+ today-Stem Cell Infusion Day (12/23/14) -Etoposide reaction with fevers. Work-up for sepsis negative. Chemotherapy/Transplant Meds: # Chemotherapy - CBV Conditioning Regimen prior to autologous stem cell transplant -Carmustine 15mg/kg (dose to be given 825 mg) IV x1 on day -6 (12/17/14) over 2 hours -Day -5 (12/18/14): Rest day -Etoposide 60/mg/kg (dose to be given 3,300 mg) IV x1 on day -4 (12/19/14) over 4 hours -Day -3 (12/20/14): Rest day -Cyclophosphamide 100mg/kg (dose to be given 5,500 mg) IV x1 on day -2 (12/21/14) over 2 hours -Mesna 120mg/kg (dose to be given 3,990 mg) IV x1 dose on day -2 (12/21 ) over 24 hours -Day -1 (12/22/14) Rest day -Day 0 (12/24/14) -Stem Cell Transplant -Days 1-14 (12/17-12/28/14) -Awaiting Count Recovery # Antiemetics: -Zofran 16mg IV or PO beginning on day -6 and ongoing until day -3 -Palonsoetron 0.25 IV push on day -2 one hour prior to cyclophosphamide -Lorazepam 0.5mg PO/IV every 6 hours scheduled nausea/anxiety. May repeat once in 30 minutes if prior dose ineffective. -Aprepitant 125mg PO prior to cyclophosphamide on day -2, then aprepitant 80 mg PO daily on day -1. -Zofran 8mg PO/IV every 8 hours as needed beginning on day +1 # Pre-Medications: -Benadryl 25mg IV 30 minutes prior to etoposide and repeat 2 hours into the infusion. -Hydrocortisone 80mg IV 30 minutes prior to etoposide and repeat 2 hours into the infusion. # Chemotherapy Hydration: - for day -6 (carmustine hydration): give 0.9% NS IV @ 250ml/hr x4 hours before carmustine. Hold during carmustine. Restart @ 250ml for 2 hours after carmustine. - for day -4 (etoposide hydration): concurrent with etoposide run IV 0.9% NS IV @ 1,000mg/hr x 4 hours. Post etoposide, run 0.9% NS at 500ml/hr for 30 minutes, then at 250ml/hr for 30 minutes, then at 125ml/hr for 3 hours then stop. - for day -2 (cyclophosphamide hydration): give 0.9% NS IV @ 250ml/hr starting one hour prior to cyclophosphamide and continuing for at least 6 hours after completion of the cyclophosphamide. # FEN: - Lasix 20mg IV once 4 hours after completing etoposide as needed dyspnea only. Hold if SBP is lessthan 110. - Lasix 20mg IV once daily PRN wt greater than 1 kg above admit baseline - Lasix 20mg for wt greater than 1 kg over 12 hours or input exceeding output by greater than 1000ml per 12 hours. Hold if SBP is less than 90mmHg prior to Lasix administration. -Magnesium and potassium repletion per SOP. # Infection Prophylaxis: - If HSV positive: acyclovir 800mg PO BID on admit or Acyclovir 500mg IV every 12 hours if unable to take by mouth. - Keflex 500 mg QID po daily starting Day 0 -Fluconazole 400mg po daily starting Day 0 - Bactrim DS one table PO once daily from admission until and including day -2. Discontinue after day -2 dose given. - On day +30 start Bactrim DS one table once daily. #Nursing Care -Strict I/O -Caphosol 30mL four times a day -Neutropenic precautions and diet. -Weight BID -Incentive spirometry every 2 hours. -Rectal, oral, skin care per SOP # Nausea Not gettingscheduled Zofran 16 mg BID for nausea on account of headaches and constipation. Ativan 0.5 mg q 6 hours #Loss of appetite-Improving Nutrition consult ordered. Increasing PO intake. -Urinalysis shows ketones--evidence of decreased caloric intake. #Thursh -Continue nystatin swish and spit four times a day. May require just for 2-3 more days for thrush to clear. -Continue to monitor. #Anemia -Transfuse with 1 unit of PRBC yesterday due to anemia and pending chente. Recovered count today. #Anxiety Ativan as ordered #Insomnia Continue w/ Ambien nightly. Improving and sustaining sleep patterns. #Constipation-Improved Daily BM. Taking Pericolace TID and Miralax PRN #Electrolytes Mag and potassium replacement per protocol. CODE STATUS: Full code DIET: Regluar ACTIVITY: Walk 1 mile per day DVT Prophylaxis: Lovenox 40 mg daily subcutaneous Zayra Leach SETTLEMENT TECHNICIAN, LEATHER SCRAPER [facility] Hematology/Oncology-[address] [place] [address] Pager: [phone]+++++++++++++++++++++++++++++++++++++++++++++++++++++++++++++++ Attending Addendum: I agree with the history, physical, assessment and plan of the housestaff. I have seen and examinedthe patient on rounds and I have discussed the management with the team. I have reviewed all pertinent laboratory and radiographic findings. This patient meets criteria for inpatient level of care due to the above medical complexity. I agree with the plan above. * Ewelina Reyna MD - 12/24/2014 5:36 PM EST Transfusion Medicine Service Transfusion Reaction Report Transfusion Medicine Attending Physician: Ewelina Reyna MD Transfusion Medicine Resident: Rajani Coleman MD Date: 12/24/2014 Patient Name: Myriam De Souza Date of : 1950 Chief Complaint: The patient is a 64 y.o. year-old female admitted for autologous stem cell transplant (day +1) for treatment of diffuse large B cell lymphoma on 12/17/2014 1:53 PM. Indication for Transfusion: The patient was transfused RBC on 12/24/2014 for anemia. Reaction Description: Per report, ten minutes after completion of blood product, patient complainedof a rash and itching on her chest. Patient denied other signs or symptoms. Implicated Component Information: Unit Number(s): [id number] Volume Transfused: 350 mL Premedication: None History of Previous Transfusion Reactions: No Vital signs: TIME TEMP PULSE RESP BP Pre- TXN 13:23 37.1 82 18 120/70 During TXN 13:51 37.1 80 16 118/68 Post- TXN 16:20 37.0 72 20 128/70 Reaction Assessment: CDC/NHSN Biovigilance Reaction Classification: Allergic reaction Severity: Grade 1 (Non-Severe) Imputability:Probable Recommendations: The Transfusion Medicine Service and Transfusion Committee advise against the routine premedicationof patients with no prior history of transfusion reactions or of those with a history of only febrile or mild allergic reactions as this practice has not been shown to reduce the rate of these reactions. The patient is cleared for additional blood product transfusions if clinically indicated. Please report any subsequent reactions to the Transfusion Medicine Service. RAJANI COLEMAN MD 12/24/2014 ATTENDING MD ATTESTATION: I reviewed the clinical data and laboratory evaluation. I agree with the interpretation as presented by Dr. Coleman. This patient may receive additional blood components if clinically indicated. EWELINA REYNA MD 12/24/2014 * Zayra Leach, LEATHER SCRAPER - 12/24/2014 7:56 AM EST 1 [place] [facility] Hematology/Oncology/SCT Progress Note Patient info: Patient Name: Myriam De Souza : 1950 Service: Hematology - GUEST SERVICE MANAGER Responsible Attending: Dr. Mondragon Date of Admission: 12/17/2014 ( Hospital Day 7 days ) Service: [facility] Nurse Practitioner Services Interval history: Myriam De Souza is a 64 y.o. female with diffuse large B cell lymphoma who is admitted for autologous stem cell transplant. She is day +1. There were no acute issues overnight - no fevers or chills. She has improved appetite. No nausea and eating well. Increased mobility and feeling well today. Daily BM. No d/v/n, headache, SOB, pain. Hospital Problem List: Patient Active Problem List Diagnosis Code ??? Lymphoma C85.90 ??? Depression with anxiety F41.8 ??? Hypokalemia E87.6 ??? Hypomagnesemia E83.42 ??? Neutropenia D70.9 ??? Chemotherapy adverse reaction T45.1X5A Antimicrobials: Acyclovir 800 bid Fluconazole 200 mg bid - begin on day 0 Keflex 500 mg qid - begin on day 0 ( allergy to Levaquin ) Pain meds: Oxycodone 5 mg po Q 6 hours prn Access Lines: -Left chest tunneled line site is CDI with no signs of infection. Right chest single lumen mediportis not accessed. CURRENT MEDS: ??? nystatin 500,000 Units Oral 4 Times Daily ??? zolpidem 5 mg Oral Nightly ??? senna-docusate 1 tablet Oral TID ??? cephalexin 500 mg Oral 4 Times Daily ??? esomeprazole 40 mg Oral Daily ??? supersaturated calcium phosphate 30 mL Oral 4 Times Daily ??? fluconazole 400 mg Oral Daily ??? acyclovir 800 mg Oral BID ??? [START ON 12/28/2014] filgrastim 480 mcg Subcutaneous Daily ??? escitalopram oxalate 10 mg Oral Daily ??? LORazepam 0.5 mg Oral Q6H ??? sodium chloride 0.9 % 5 mL Intravenous BID ??? enoxaparin 40 mg Subcutaneous Daily VITALS: Last value Range last 24 hrs Temperature Temp: 37.1 ??C (98.8 ??F) Temp: [36.7 ??C (98.1 ??F)-37.2 ??C (99 ??F)] Heart Rate Heart Rate: 77 Heart Rate: [76-100] Blood Pressure BP: 120/74 mmHg BP: (101-133)/(54-77) Respiratory Rate Resp: 18 Resp: [16-20] SpO2 SpO2: 98 % SpO2: [95 %-99 %] Intake/Output Summary (Last 24 hours) at 12/24/14 0756 Last data filed at 12/24/14 0632 Gross per 24 hour Intake 1914 ml Output 2600 ml Net -686 ml Patient Vitals for the past 168 hrs: Weight 12/24/14 0747 65.2 kg (143 lb 11.8 oz) 12/23/14 1744 67 kg (147 lb 11.3 oz) 12/23/14 0433 65.9 kg (145 lb 4.5 oz) 12/22/14 1545 67.8 kg (149 lb 7.6 oz) 12/22/14 0300 68.4 kg (150 lb 12.7 oz) 12/21/14 1538 68.2 kg (150 lb 5.7 oz) 12/21/14 0450 67.6 kg (149 lb 0.5 oz) 12/20/14 1524 68.8 kg (151 lb 10.8 oz) 12/20/14 0550 68.2 kg (150 lb 5.7 oz) 12/19/14 1525 66.8 kg (147 lb 4.3 oz) 12/19/14 0344 65.9 kg (145 lb 4.5 oz) 12/18/14 1413 67.9 kg (149 lb 11.1 oz) 12/18/14 0328 68 kg (149 lb 14.6 oz) 12/17/14 1400 67.4 kg (148 lb 9.4 oz) Admit wt:68.4 kg. Change in weight to today: -3.2 KG PHYSICAL EXAM: Gen - alert and oriented, no distress, conversant EENT- Thin white furry coating on tongue. Decreased in size from yesterday. Neck - no cervical lymphadenopathy, masses, or stiffness Heart - RRR, no murmurs or rubs, no palpable thrill, normal pulses Lungs - clear to auscultation bilaterally, no wheezes or crackles, breathing symmetrical with no retractions or accessory muscle use Abdomen: no hepatosplenomegaly, no masses, soft, non-tender, non-distended, normal bowel sounds. Extremities - no LE edema, normal perfusion, no clubbing or cyanosis Musculoskeletal - normal (5/5) strength and tone in arms and legs, normal gait, mobile with normal range of motion of joints Heme - No lymphadenopathy in cervical, axillary or supraclavicular areas; no petechiae or bruising Labs: Recent Labs 12/24/1442912/23/140 12/20/14 0354 WBC 1.7* 2.9* 13.6* HGB 6.9* 7.7* 7.3* HCT 19.3* 21.6* 21.3* PLATELET 64* 97* 104* NEUTROABS 1.56 2.69 13.17* Recent Labs 12/24/14 0430 12/23/14 0200 12/22/14 0245 NA 142 142 136 K 3.9 4.1 3.2* CL 102 102 100 CO2 31 28 25 BUN 13 15 12 CREATININE 0.60* 0.73 0.69* GLUCOSE 88 86 91 Recent Labs 12/24/14 0430 12/23/14 0200 12/22/14 0245 CALCIUM 9.0 9.7 8.6 MAGNESIUM 0.56* 0.79 0.49* PHOS 3.4 3.9 3.2 Recent Labs 12/23/14 0200 12/21/14 0445 12/17/14 1105 AST 57* 213* 28 ALT 103* 174* 39* ALKPHOS 94 79 93 BILITOT 0.7 0.7 0.4 BILIDIR 0.2 0.2 0.1 No results for input(s): INR, PT, PTT in the last 72 hours. Recent Labs 12/17/14 1105 LDH 203 URICACID 4.0 Tumor Lysis Labs: Recent Labs 12/24/14 0430 12/23/14 0200 12/22/14 0245 12/17/14 1105 URICACID -- -- -- -- 4.0 PHOS 3.4 3.9 3.2 < > -- K 3.9 4.1 3.2* < > 4.2 < > = values in this interval not displayed. Microbiology: Urinalysis from 12/21/14 septic work up negative Urinalysis 12/23/14 + Ketones, Protein and Glucose. - for heme Pertinent radiology/diagnostic studies: Chest x-ray on 12/20/14 IMPRESSION: 1. No focal consolidation to suggest pneumonia. 2. Nonspecific radiodensity projecting over the medial LEFT lung base of uncertain etiology or clinical significance. ASSESSMENT: Myriam De Souza is a 64 y.o. 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 PLAN: # Auto transplant Day 1+ today-Stem Cell Infusion Day (12/23/14) Chemotherapy/Transplant Meds: # Chemotherapy - CBV Conditioning Regimen prior to autologous stem cell transplant -Carmustine 15mg/kg (dose to be given 825 mg) IV x1 on day -6 (12/17/14) over 2 hours -Day -5 (12/18/14): Rest day -Etoposide 60/mg/kg (dose to be given 3,300 mg) IV x1 on day -4 (12/19/14) over 4 hours -Day -3 (12/20/14): Rest day -Cyclophosphamide 100mg/kg (dose to be given 5,500 mg) IV x1 on day -2 (12/21/14) over 2 hours -Mesna 120mg/kg (dose to be given 3,990 mg) IV x1 dose on day -2 (12/21 ) over 24 hours -Day -1 (12/22/14) Rest day -Day 0 (12/24/14) -Stem Cell Transplant -Days 1-14 (12/17-12/28/14) -Awaiting Count Recovery # Antiemetics: -Zofran 16mg IV or PO beginning on day -6 and ongoing until day -3 -Palonsoetron 0.25 IV push on day -2 one hour prior to cyclophosphamide -Lorazepam 0.5mg PO/IV every 6 hours scheduled nausea/anxiety. May repeat once in 30 minutes if prior dose ineffective. -Aprepitant 125mg PO prior to cyclophosphamide on day -2, then aprepitant 80 mg PO daily on day -1. -Zofran 8mg PO/IV every 8 hours as needed beginning on day +1 # Pre-Medications: -Benadryl 25mg IV 30 minutes prior to etoposide and repeat 2 hours into the infusion. -Hydrocortisone 80mg IV 30 minutes prior to etoposide and repeat 2 hours into the infusion. # Chemotherapy Hydration: - for day -6 (carmustine hydration): give 0.9% NS IV @ 250ml/hr x4 hours before carmustine. Hold during carmustine. Restart @ 250ml for 2 hours after carmustine. - for day -4 (etoposide hydration): concurrent with etoposide run IV 0.9% NS IV @ 1,000mg/hr x 4 hours. Post etoposide, run 0.9% NS at 500ml/hr for 30 minutes, then at 250ml/hr for 30 minutes, then at 125ml/hr for 3 hours then stop. - for day -2 (cyclophosphamide hydration): give 0.9% NS IV @ 250ml/hr starting one hour prior to cyclophosphamide and continuing for at least 6 hours after completion of the cyclophosphamide. # FEN: - Lasix 20mg IV once 4 hours after completing etoposide as needed dyspnea only. Hold if SBP is lessthan 110. - Lasix 20mg IV once daily PRN wt greater than 1 kg above admit baseline - Lasix 20mg for wt greater than 1 kg over 12 hours or input exceeding output by greater than 1000ml per 12 hours. Hold if SBP is less than 90mmHg prior to Lasix administration. -Magnesium and potassium repletion per SOP. # Infection Prophylaxis: - If HSV positive: acyclovir 800mg PO BID on admit or Acyclovir 500mg IV every 12 hours if unable to take by mouth. - Keflex 500 mg QID po daily starting Day 0 -Fluconazole 400mg po daily starting Day 0 - Bactrim DS one table PO once daily from admission until and including day -2. Discontinue after day -2 dose given. - On day +30 start Bactrim DS one table once daily. #Nursing Care -Strict I/O -Caphosol 30mL four times a day -Neutropenic precautions and diet. -Weight BID -Incentive spirometry every 2 hours. -Rectal, oral, skin care per SOP # Nausea Not gettingscheduled Zofran 16 mg BID for nausea on account of headaches and constipation. Ativan 0.5 mg q 6 hours #Loss of appetite-Improving Nutrition consult ordered. Increasing PO intake. -Urinalysis shows ketones--evidence of decreased caloric intake. #Thursh -Start nystatin swish and spit four times a day. -Continue to monitor. #Anemia -Transfuse with 1 unit of PRBC due to anemia and pending chente. #Hiccups-Resolved # Headache-Resolved #Anxiety Ativan as ordered #Insomnia Continue w/ Ambien #Constipation-Improved Daily BM. Taking Pericolace TID and Miralax PRN #Electrolytes Mag and potassium replacement per protocol. CODE STATUS: Full code DIET: Regluar ACTIVITY: Walk 1 mile per day DVT Prophylaxis: Lovenox 40 mg daily subcutaneous Zayra VENTURA APRN [facility] Hematology/Oncology-[address] [place] [phone] Pager: [phone]+++++++++++++++++++++++++++++++++++++++++++++++++++++++++++++++ Attending Addendum: I agree with the history, physical, assessment and plan of the housestaff. I have seen and examinedthe patient on rounds and I have discussed the management with the team. I have reviewed all pertinent laboratory and radiographic findings. This patient meets criteria for inpatient level of care due to the above medical complexity. I agree with the plan above. Dali Perez RN - 12/23/2014 6:00 PM EST Day 0 Infusion of Frozen Product Blood return in pt???s central line was verified on the day of infusion. Appropriate delay following conditioning regimen and prior to cellular therapy product infusion was confirmed. The procedure was explained to the patient and education provided on common side effects. The patient reported a good understanding. Pre-medications given as ordered. At the bedside 2 certified RN? s, this RN & Lakesha Gil, verified patient identification and performed a product verification. Blood bank product stickers can be found in pt???s paper chart. Product was infused per protocol. Bag/Syringe #1 57 mL - Start time: 1418 End time: 1423 12/23/14 1345 12/23/14 1418 12/23/14 1423 Adult Vital Signs Temp 37 ??C (98.6 ??F) (Pre signs) 36.9 ??C (98.4 ??F) (First push) 37 ??C (98.6 ??F) (End) Temp Source Oral Oral Oral Heart Rate 85 78 83 BP 122/77 mmHg 129/63 mmHg 133/61 mmHg BP Method Automatic Automatic Automatic BP Location (NBP) Right arm Left arm Left arm Resp 18 18 16 SpO2 98 % 96 % 98 % Visual Checks Awake;In bed Awake;In bed Awake;In bed Oxygen Therapy O2 Device [facility] 12/23/14 1438 12/23/14 1447 Adult Vital Signs Temp 36.8 ??C (98.2 ??F) (15 mins post) 36.7 ??C (98.1 ??F) (30 mins post) Temp Source Oral Oral Heart Rate 81 76 BP 101/54 mmHg 109/55 mmHg BP Method Automatic Automatic BP Location (NBP) Right arm Left arm Resp 18 18 SpO2 99 % 96 % Visual Checks Awake;In bed Awake;In bed Oxygen Therapy O2 Device [facility] Side effects experienced during re-infusion: [ ] Nausea [x] Hypotension [ ] Rigors [ ] Seizure Activity [ ] Vomiting [ ] Hypertension [ ] Chills [x] Other: tingling in fingers Response to above symptoms: The pt's baseline blood pressure was 122/77. The 15 minute post infusion blood pressure was 101/54.Per the Auto Stem Cell Transplant Procedure guidelines, the pt experienced a mild infusion reactionbecause her SBP decreased by 20 mmHg from baseline. Cell therapy and blood bank were immediately notified. Zayra Leach GUEST SERVICE MANAGER and the blood bank resident congressional representative were notified and the need to completea reaction workup was discussed. The correct reaction workup was verified by CNLeona Garland and Dr. Reyna. Per Dr. Reyna, the transfusion reaction documentation and empty stem cell bag were pili sent to the blood bank, but a blood sample and urinalysis were not needed. The pt was asymptomatic despite these BP changes. The pt also experience tingling in her fingers during the 5 minute cell infusion. This resolved once the infusion was complete. * Ewelina Reyna MD - 12/23/2014 3:48 PM EST Transfusion Medicine Service Infusion Reaction Report Transfusion Medicine Attending Physician: Ewelina Reyna MD Transfusion Medicine Fellow/Resident: ABI TAVERAS MD Date: 12/23/2014 Patient Name: Myriam De Souza Date of : 1950 Chief Complaint: The patient is a 64 y.o. year old female admitted for stem cell transplant on 12/17/2014 1:53 PM. Relevant Problems: Diffuse large B cell lymphoma admitted for autologous stem cell transplant Patient ABO Type: B Pos Product Type: Autologous stem cell infusion (cryopreserved) Infusion Description : Cellular therapy product infusion began at 1418 on 1423. Reaction Description: Nursing staff reported a drop in blood pressure from 122/61 to 101/54 after the transfusion. Onset of signs/symptoms occurred at 1438, 15 minutes after the start of the infusion. Cellular Therapy Product Information: Unit Number(s): [id number] AO Unit ABO Type(s): B Pos Volume Transfused: 57mL Premedication: Tylenol and Benadryl Other Blood Products Transfused in Previous 24 Hours: No Relevant History: History of Transfusion Reactions: No History: N/A Relevant Labs: Results for MYRIAM DE SOUZA ( ) as of 12/23/2014 16:35 Ref. Range 12/23/2014 02:00 WBC Latest Range: 4.0-10.0 x10(3)/mcL 2.9 (L) RBC Latest Range: 3.93-5.22 x10(6)/mcL 2.28 (L) Hemoglobin Latest Range: 11.2-15.7 gm/dL 7.7 (L) Hematocrit Latest Range: 34.0-45.0 % 21.6 (L) MCV Latest Range: 79.0-94.0 fL 94.7 (H) MCH Latest Range: 26.6-32.2 pg 33.8 (H) MCHC Latest Range: 32.0-36.5 gm/dL 35.6 RDWSD Latest Range: 35.0-46.0 fL 53.7 (H) RDWCV Latest Range: 10.9-14.4 % 15.8 (H) Platelets Latest Range: 145-370 x10(3)/mcL 97 (L) Relevant Medications: Acyclovir 400mg BID Vital signs associated with he transfusion reaction: TIME TEMP PULSE RESP BP Pre- TXN 1345 37 85 18 122/77 During TXN 1423 36.9 78 18 129/63 Post- TXN 1438 36.8 81 18 101/54 Vital signs over the last 24 hours: Last value Range last 24 hrs Temperature Temp: 36.7 ??C (98.1 ??F) (30 mins post) Temp: [36.6 ??C (97.9 ??F)- 37.2 ??C (99 ??F)] Heart Rate Heart Rate: 76 Heart Rate: [76-86] Blood Pressure BP: 109/55 mmHg BP: (96-133)/(52-78) Respiratory Rate Resp: 18 Resp: [16-20] SpO2 SpO2: 96 % SpO2: [96 %-99 %] Fluid Balance: Intake/Output Summary (Last 24 hours) at 12/23/14 1548 Last data filed at 12/23/14 1526 Gross per 24 hour Intake 1174 ml Output 1725 ml Net -551 ml Laboratory Investigation: Clerical check confirms that the patient received the correct product:yes Product Cultured: Yes Reaction Assessment: Hypotensive transfusion reactions are characterized by a drop in blood pressure (change >30mmHg,or value <80mmHg) occurring during or within one hour of cessation of transfusion. Other symptoms such as facial flushing, dyspnea or abdominal cramps may occur but usually hypotension is the solemanifestation. Product was cultured prior to and upon removal from storage. A patient blood sample was not required for this workup. Blood bank and cell therapy were notified and no patient interventions were required. The 21mmHg decrease in systolic blood pressure (pre- vs. post- transfusion) does not qualify as a hypotensive transfusion reaction. No other symptoms were reported and the clerical check found no issues. The values reported are all within the patients reported blood pressure range this admission. Recommendations: The patient is cleared for additional blood product transfusions if clinically indicated. Please report any subsequent reactions to the Transfusion Medicine Service. ABI TAVERAS MD, PhD 12/23/2014 ATTENDING MD ATTESTATION: I reviewed the clinical data and laboratory evaluation. I agree with the interpretation as presented by Dr. Taveras. This patient may receive additional blood components if clinically indicated. EWELINA REYNA MD 12/24/2014 * Krys Butts, RD - 12/23/2014 1:15 PM EST Nutrition Progress Note: S: Per pt: I think I'm doing better than last week. Appetite: poor, but improving Chewing/Swallowing: no problems noted N/V: N Bowels: 2 loose BM yesterday O: Patient Active Problem List Diagnosis Code ??? Lymphoma C85.90 ??? Depression with anxiety F41.8 ??? Hypokalemia E87.6 ??? Hypomagnesemia E83.42 ??? Neutropenia D70.9 ??? Chemotherapy adverse reaction T45.1X5A No past medical history on file. Diet: BMT Admit Weight: 67.4 kg Estimated body mass index is 26.07 kg/(m^2) as calculated from the following: Height as of this encounter: 159 cm (5' 2.6). Weight as of this encounter: 65.9 kg (145 lb 4.5 oz). Labs: Lab Results Component Value Date NA 142 12/23/2014 K 4.1 12/23/2014 CL 102 12/23/2014 CO2 28 12/23/2014 BUN 15 12/23/2014 CREATININE 0.73 12/23/2014 GLUCOSE 86 12/23/2014 MAGNESIUM 0.79 12/23/2014 CALCIUM 9.7 12/23/2014 PHOS 3.9 12/23/2014 AST 57* 12/23/2014 ALT 103* 12/23/2014 ALKPHOS 94 12/23/2014 BILITOT 0.7 12/23/2014 BILIDIR 0.2 12/23/2014 Medications: Nexium, Mg-sulfate, Ativan, Cahosol A: Rd consulted re poor po intake. I saw the pt with her daughter at her bedside. She reports that her appetite is slightly improved compared to our last encounter last week. Intake since last week has been poor. She had some of her breakfast (bagel, fruit, yogurt) today, but did not eat dinner yesterday. She has some protein shakes she brought from home, which she plans to drink later, and some dry cereal to snack on. She is a grazer and appreciates the option to get some snacks in between meals. She is also open to try Boost or CIB during her stay here.. Assessment: Pt at nutritional risk related to treatment, with suppressed appetite and inadequate pointake. Weight currently stable, but pt receiving IV fluids. Encouraged pt to contact Food and Nutrition services with any questions that may arise. 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 Foote Date of Admission: 12/17/2014 ( Hospital Day 6 days ) Service: 1 [place] [facility] Interval history: Myriam De Souza is a 64 y.o. female with diffuse large B cell lymphoma who is admitted for autologous stem cell transplant. She is day 0. She was seen, examined and discussed with her RN. Her daughter is present in the room There were no acute issues overnight - no fevers or chills. She has a reduced appetite and is agreeable to a nutrition evaluation. She has mild intermittent hiccups mostly when she lies flat. She also feels fatigued but it is not disabling. Mild nausea persists but no need for prn antiemetics so far this morning. Had a BM this am. She has no other symptoms. Hospital Problem List: Patient Active Problem List Diagnosis Code ??? Lymphoma C85.90 ??? Depression with anxiety F41.8 ??? Hypokalemia E87.6 ??? Hypomagnesemia E83.42 ??? Neutropenia D70.9 ??? Chemotherapy adverse reaction T45.1X5A Antimicrobials: Acyclovir 800 bid Fluconazole 200 mg bid - begin on day 0 Keflex 500 mg qid - begin on day 0 ( allergy to Levaquin ) Pain meds: Oxycodone 5 mg po Q 6 hours prn Access Lines: -Left chest tunneled line site is CDI with no signs of infection. Right chest single lumen mediportis not accessed. CURRENT MEDS: ??? zolpidem 5 mg Oral Nightly ??? senna-docusate 1 tablet Oral TID ??? cephalexin 500 mg Oral 4 Times Daily ??? aprepitant 80 mg Oral Daily ??? esomeprazole 40 mg Oral Daily ??? supersaturated calcium phosphate 30 mL Oral 4 Times Daily ??? fluconazole 400 mg Oral Daily ??? acyclovir 800 mg Oral BID ??? acetaminophen 650 mg Oral Once ??? diphenhydrAMINE 50 mg Oral Once ??? [START ON 12/28/2014] filgrastim 480 mcg Subcutaneous Daily ??? escitalopram oxalate 10 mg Oral Daily ??? LORazepam 0.5 mg Oral Q6H ??? sodium chloride 0.9 % 5 mL Intravenous BID ??? enoxaparin 40 mg Subcutaneous Daily VITALS: Last value Range last 24 hrs Temperature Temp: 36.6 ??C (97.9 ??F) Temp: [36.6 ??C (97.9 ??F)-37.2 ??C (99 ??F)] Heart Rate Heart Rate: 82 Heart Rate: [75-86] Blood Pressure BP: 118/78 mmHg BP: (96-124)/(52-78) Respiratory Rate Resp: 20 Resp: [18-20] SpO2 SpO2: 96 % SpO2: [96 %-98 %] Intake/Output Summary (Last 24 hours) at 12/23/14 0805 Last data filed at 12/23/14 0724 Gross per 24 hour Intake 919 ml Output 2600 ml Net -1681 ml Patient Vitals for the past 168 hrs: Weight 11/09/15 0433 65.9 kg (145 lb 4.5 oz) 12/22/14 1545 67.8 kg (149 lb 7.6 oz) 12/22/14 0300 68.4 kg (150 lb 12.7 oz) 12/21/14 1538 68.2 kg (150 lb 5.7 oz) 12/21/14 0450 67.6 kg (149 lb 0.5 oz) 12/20/14 1524 68.8 kg (151 lb 10.8 oz) 12/20/14 0550 68.2 kg (150 lb 5.7 oz) 12/19/14 1525 66.8 kg (147 lb 4.3 oz) 12/19/14 0344 65.9 kg (145 lb 4.5 oz) 12/18/14 1413 67.9 kg (149 lb 11.1 oz) 12/18/14 0328 68 kg (149 lb 14.6 oz) 12/17/14 1400 67.4 kg (148 lb 9.4 oz) Admit wt:68.4 kg. Change in weight to today: -1.5 KG PHYSICAL EXAM: Gen - alert and oriented, no distress, conversant EENT- Thick white furry coating on tongue. Neck - no cervical lymphadenopathy, masses, or stiffness Heart - RRR, no murmurs or rubs, no palpable thrill, normal pulses Lungs - clear to auscultation bilaterally, no wheezes or crackles, breathing symmetrical with no retractions or accessory muscle use Abdomen: no hepatosplenomegaly, no masses, soft, non-tender, non-distended, normal bowel sounds. Extremities - no LE edema, normal perfusion, no clubbing or cyanosis Musculoskeletal - normal (5/5) strength and tone in arms and legs, normal gait, mobile with normal range of motion of joints Heme - No lymphadenopathy in cervical, axillary or supraclavicular areas; no petechiae or bruising Labs: Recent Labs 12/23/14 0200 12/20/14 0354 12/17/14 1400 WBC 2.9* 13.6* 5.4 HGB 7.7* 7.3* 8.7* HCT 21.6* 21.3* 24.6* PLATELET 97* 104* 165 NEUTROABS 2.69 13.17* 3.74 Recent Labs 12/23/14 0200 12/22/14 0245 12/21/14 0445 NA 142 136 142 K 4.1 3.2* 4.1 CL 102 100 107 CO2 28 25 24 BUN 15 12 20* CREATININE 0.73 0.69* 0.90 GLUCOSE 86 91 90 Recent Labs 12/23/14 0200 12/22/14 0245 12/21/14 0445 CALCIUM 9.7 8.6 8.9 MAGNESIUM 0.79 0.49* 0.79 PHOS 3.9 3.2 2.8 Recent Labs 12/23/14 0200 12/21/14 0445 12/17/14 1105 AST 57* 213* 28 ALT 103* 174* 39* ALKPHOS 94 79 93 BILITOT 0.7 0.7 0.4 BILIDIR 0.2 0.2 0.1 No results for input(s): INR, PT, PTT in the last 72 hours. Recent Labs 12/17/14 1105 LDH 203 URICACID 4.0 Tumor Lysis Labs: Recent Labs 12/23/14 0200 12/22/14 0245 12/21/14 0445 12/17/14 1105 URICACID -- -- -- -- 4.0 PHOS 3.9 3.2 2.8 < > -- K 4.1 3.2* 4.1 < > 4.2 < > = values in this interval not displayed. Microbiology: Urinalysis from 12/21/14 septic work up negative Pertinent radiology/diagnostic studies: Chest x-ray on 12/20/14 IMPRESSION: 1. No focal consolidation to suggest pneumonia. 2. Nonspecific radiodensity projecting over the medial LEFT lung base of uncertain etiology or clinical significance. ASSESSMENT: Myriam De Souza is a 64 y.o. 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 PLAN: # Auto transplant Day 0-Stem Cell Transplant today (12/23/14) Chemotherapy/Transplant Meds: # Chemotherapy - CBV Conditioning Regimen prior to autologous stem cell transplant -Carmustine 15mg/kg (dose to be given 825 mg) IV x1 on day -6 (12/17/14) over 2 hours -Day -5 (12/18/14): Rest day -Etoposide 60/mg/kg (dose to be given 3,300 mg) IV x1 on day -4 (12/19/14) over 4 hours -Day -3 (12/20/14): Rest day -Cyclophosphamide 100mg/kg (dose to be given 5,500 mg) IV x1 on day -2 (12/21/14) over 2 hours -Mesna 120mg/kg (dose to be given 3,990 mg) IV x1 dose on day -2 (12/21 ) over 24 hours -Day -1 (12/22/14) Rest day -Day 0 (12/24/14) -Stem Cell Transplant -Days 1-14 (12/17-12/28/14) -Awaiting Count Recovery # Antiemetics: -Zofran 16mg IV or PO beginning on day -6 and ongoing until day -3 -Palonsoetron 0.25 IV push on day -2 one hour prior to cyclophosphamide -Lorazepam 0.5mg PO/IV every 6 hours scheduled nausea/anxiety. May repeat once in 30 minutes if prior dose ineffective. -Aprepitant 125mg PO prior to cyclophosphamide on day -2, then aprepitant 80 mg PO daily on day -1. -Zofran 8mg PO/IV every 8 hours as needed beginning on day +1 # Pre-Medications: -Benadryl 25mg IV 30 minutes prior to etoposide and repeat 2 hours into the infusion. -Hydrocortisone 80mg IV 30 minutes prior to etoposide and repeat 2 hours into the infusion. # Chemotherapy Hydration: - for day -6 (carmustine hydration): give 0.9% NS IV @ 250ml/hr x4 hours before carmustine. Hold during carmustine. Restart @ 250ml for 2 hours after carmustine. - for day -4 (etoposide hydration): concurrent with etoposide run IV 0.9% NS IV @ 1,000mg/hr x 4 hours. Post etoposide, run 0.9% NS at 500ml/hr for 30 minutes, then at 250ml/hr for 30 minutes, then at 125ml/hr for 3 hours then stop. - for day -2 (cyclophosphamide hydration): give 0.9% NS IV @ 250ml/hr starting one hour prior to cyclophosphamide and continuing for at least 6 hours after completion of the cyclophosphamide. # FEN: - Lasix 20mg IV once 4 hours after completing etoposide as needed dyspnea only. Hold if SBP is lessthan 110. - Lasix 20mg IV once daily PRN wt greater than 1 kg above admit baseline - Lasix 20mg for wt greater than 1 kg over 12 hours or input exceeding output by greater than 1000ml per 12 hours. Hold if SBP is less than 90mmHg prior to Lasix administration. -Magnesium and potassium repletion per SOP. # Infection Prophylaxis: - If HSV positive: acyclovir 800mg PO BID on admit or Acyclovir 500mg IV every 12 hours if unable to take by mouth. - Keflex 500 mg QID po daily starting Day 0 -Fluconazole 400mg po daily starting Day 0 - Bactrim DS one table PO once daily from admission until and including day -2. Discontinue after day -2 dose given. - On day +30 start Bactrim DS one table once daily. #Nursing Care -Strict I/O -Caphosol 30mL four times a day -Neutropenic precautions and diet. -Weight BID -Incentive spirometry every 2 hours. -Rectal, oral, skin care per SOP # Nausea Not gettingscheduled Zofran 16 mg BID for nausea on account of headaches and constipation. Ativan 0.5 mg q 6 hours #Loss of appetite Nutrition consult ordered #Thursh -Start nystatin swish and spit four times a day. -Continue to monitor. #Hiccups Mild Monitor Consider Thorazine, gabapentin, reglan if it becomes intractible # Headache Low-grade headache May be r/t Zofran but improved Nasal spray prn #Anxiety Ativan as ordered #Insomnia Continue w/ Ambien #Constipation Small, hard BM today Continue Pericolace TID Miralax today and PRN #Electrolytes Mag and potassium replacement per protocol. CODE STATUS: Full code DIET: Regluar ACTIVITY: Walk 1 mile per day DVT Prophylaxis: Lovenox 40 mg daily Zayra Leach SETTLEMENT TECHNICIAN, LEATHER SCRAPER [facility] Hematology/Oncology-[address] [place] [address] Pager: [phone]+++++++++++++++++++++++++++++++++++++++++++++++++++++++++++++++ Attending Addendum: I agree with the history, physical, assessment and plan of the housestaff. I have seen and examinedthe patient on rounds and I have discussed the management with the team. I have reviewed all pertinent laboratory and radiographic findings. This patient meets criteria for inpatient level of care due to the above medical complexity. I agree with the plan above. * Paige Hernandez - 12/22/2014 11:14 AM EST 1 [place] [facility]/Oncology/SCT Progress Note Patient info: Patient Name: Myriam De Souza : 1950 Service: Hematology - GUEST SERVICE MANAGER Responsible Attending: Dr. Foote Date of Admission: 12/17/2014 ( Hospital Day 5 days ) Service: [facility] Practitioner Services Interval history: Myriam De Souza is a 64 y.o. female with diffuse large B cell lymphoma who is admitted for autologous stem cell transplant. She is day -1. She was seen, examined and discussed with her RN. Her daughter is present in the room There were no acute issues overnight - no fevers or chills. She has a reduced appetite and is agreeable to a nutrition evaluation. She has mild intermittent hiccups mostly when she lies flat. She also feels fatigued but it is not disabling. Mild nausea persists but no need for prn antiemetics so far this morning. Had a BM this am. She has no other symptoms. Hospital Problem List: Patient Active Problem List Diagnosis Code ??? Lymphoma C85.90 ??? Depression with anxiety F41.8 ??? Hypokalemia E87.6 ??? Hypomagnesemia E83.42 ??? Neutropenia D70.9 ??? Chemotherapy adverse reaction T45.1X5A Antimicrobials: Acyclovir 800 bid Fluconazole 200 mg bid - begin on day 0 Keflex 500 mg qid - begin on day 0 ( allergy to Levaquin ) Chemotherapy/Transplant Meds: # Chemotherapy - CBV Conditioning Regimen prior to autologous stem cell transplant -Carmustine 15mg/kg (dose to be given 825 mg) IV x1 on day -6 (12/17/14) over 2 hours -Day -5 (12/18/14): Rest day -Etoposide 60/mg/kg (dose to be given 3,300 mg) IV x1 on day -4 (12/19/14) over 4 hours -Day -3 (12/20/14): Rest day -Cyclophosphamide 100mg/kg (dose to be given 5,500 mg) IV x1 on day -2 (12/21/14) over 2 hours -Mesna 120mg/kg (dose to be given 3,990 mg) IV x1 dose on day -2 (12/21 ) over 24 hours -Day -1 (12/22/14) Rest day -Day 0 (12/24/14) -Stem Cell Transplant -Days 1-14 (12/17-12/28/14) -Awaiting Count Recovery # Antiemetics: -Zofran 16mg IV or PO beginning on day -6 and ongoing until day -3 -Palonsoetron 0.25 IV push on day -2 one hour prior to cyclophosphamide -Lorazepam 0.5mg PO/IV every 6 hours scheduled nausea/anxiety. May repeat once in 30 minutes if prior dose ineffective. -Aprepitant 125mg PO prior to cyclophosphamide on day -2, then aprepitant 80 mg PO daily on day -1. -Zofran 8mg PO/IV every 8 hours as needed beginning on day +1 # Pre-Medications: -Benadryl 25mg IV 30 minutes prior to etoposide and repeat 2 hours into the infusion. -Hydrocortisone 80mg IV 30 minutes prior to etoposide and repeat 2 hours into the infusion. # Chemotherapy Hydration: - for day -6 (carmustine hydration): give 0.9% NS IV @ 250ml/hr x4 hours before carmustine. Hold during carmustine. Restart @ 250ml for 2 hours after carmustine. - for day -4 (etoposide hydration): concurrent with etoposide run IV 0.9% NS IV @ 1,000mg/hr x 4 hours. Post etoposide, run 0.9% NS at 500ml/hr for 30 minutes, then at 250ml/hr for 30 minutes, then at 125ml/hr for 3 hours then stop. - for day -2 (cyclophosphamide hydration): give 0.9% NS IV @ 250ml/hr starting one hour prior to cyclophosphamide and continuing for at least 6 hours after completion of the cyclophosphamide. # FEN: - Lasix 20mg IV once 4 hours after completing etoposide as needed dyspnea only. Hold if SBP is lessthan 110. - Lasix 20mg IV once daily PRN wt greater than 1 kg above admit baseline - Lasix 20mg for wt greater than 1 kg over 12 hours or input exceeding output by greater than 1000ml per 12 hours. Hold if SBP is less than 90mmHg prior to Lasix administration. -Magnesium and potassium repletion per SOP. # Infection Prophylaxis: - If HSV positive: acyclovir 800mg PO BID on admit or Acyclovir 500mg IV every 12 hours if unable to take by mouth. - Keflex 500 mg QID po daily starting Day 0 -Fluconazole 400mg po daily starting Day 0 - Bactrim DS one table PO once daily from admission until and including day -2. Discontinue after day -2 dose given. - On day +30 start Bactrim DS one table once daily. #Nursing Care -Strict I/O -Caphosol 30mL four times a day -Neutropenic precautions and diet. -Weight BID -Incentive spirometry every 2 hours. -Rectal, oral, skin care per SOP Pain meds: Oxycodone 5 mg po Q 6 hours prn Access Lines: -Left chest mediport site is CDI with no signs of infection. CURRENT MEDS: ??? zolpidem 5 mg Oral Nightly ??? senna-docusate 1 tablet Oral TID ??? [START ON 12/23/2014] cephalexin 500 mg Oral 4 Times Daily ??? aprepitant 80 mg Oral Daily ??? esomeprazole 40 mg Oral Daily ??? supersaturated calcium phosphate 30 mL Oral 4 Times Daily ??? [START ON 12/23/2014] fluconazole 400 mg Oral Daily ??? acyclovir 800 mg Oral BID ??? mesna (MESNEX) infusion 60 mg/kg/dose (Treatment Plan Actual) Intravenous Q12H ??? [START ON 12/23/2014] acetaminophen 650 mg Oral Once ??? [START ON 12/23/2014] diphenhydrAMINE 50 mg Oral Once ??? [START ON 12/28/2014] filgrastim 480 mcg Subcutaneous Daily ??? escitalopram oxalate 10 mg Oral Daily ??? LORazepam 0.5 mg Oral Q6H ??? sodium chloride 0.9 % 5 mL Intravenous BID ??? enoxaparin 40 mg Subcutaneous Daily VITALS: Last value Range last 24 hrs Temperature Temp: 36.9 ??C (98.4 ??F) Temp: [36.9 ??C (98.4 ??F)-37.2 ??C (99 ??F)] Heart Rate Heart Rate: 77 Heart Rate: [77-94] Blood Pressure BP: 112/70 mmHg BP: (110-120)/(68-74) Respiratory Rate Resp: 18 Resp: [18-20] SpO2 SpO2: 96 % SpO2: [95 %-98 %] Intake/Output Summary (Last 24 hours) at 12/22/14 1114 Last data filed at 12/22/14 1111 Gross per 24 hour Intake 5242 ml Output 3675 ml Net 1567 ml Patient Vitals for the past 168 hrs: Weight 12/22/14 0300 68.4 kg (150 lb 12.7 oz) 12/21/14 1538 68.2 kg (150 lb 5.7 oz) 12/21/14 0450 67.6 kg (149 lb 0.5 oz) 12/20/14 1524 68.8 kg (151 lb 10.8 oz) 12/20/14 0550 68.2 kg (150 lb 5.7 oz) 12/19/14 1525 66.8 kg (147 lb 4.3 oz) 12/19/14 0344 65.9 kg (145 lb 4.5 oz) 12/18/14 1413 67.9 kg (149 lb 11.1 oz) 12/18/14 0328 68 kg (149 lb 14.6 oz) 12/17/14 1400 67.4 kg (148 lb 9.4 oz) Admit wt:68.1 in clinic. Change in weight to today: weight: stable ( admit 68.1. Pm weight 68.2 ). PHYSICAL EXAM: Constitutional: Middle aged lady. Very pleasant. Comfortable in bed but looks tired. HEENT: EOMI, PERRL. Oropharynx is clear and moist. No oropharyngeal lesions or exudate. Neck: Normal range of motion. Neck supple. No masses. Cardiovascular: S1 and S2, regular without gallops rubs.No murmur. Normal pulses. Pulmonary/Chest: Clear to auscultation bilaterally, no wheezes or crackles. Abdomen: Soft, non-tender, non-distended. Bowel sounds are normal. Lymphadenopathy: No adenopathy Neurological: Alert and oriented to person, place, and time. Skin: Skin is warm and dry. No obvious rashes, ecchymosis, lesions or petechiae. Psychiatric: A&O. Left chest wall mediport w/out s/s infection. Labs: Recent Labs 12/20/14 0354 12/17/14 1400 WBC 13.6* 5.4 HGB 7.3* 8.7* HCT 21.3* 24.6* PLATELET 104* 165 NEUTROABS 13.17* 3.74 Recent Labs 12/22/14 0245 12/21/14 0445 12/20/14 0354 NA 136 142 149* K 3.2* 4.1 3.3* CL 100 107 112* CO2 25 24 21* BUN 12 20* 18 CREATININE 0.69* 0.90 1.03 GLUCOSE 91 90 136 Recent Labs 12/22/14 0245 12/21/14 0445 12/20/14 0354 CALCIUM 8.6 8.9 8.3* MAGNESIUM 0.49* 0.79 0.54* PHOS 3.2 2.8 3.4 Recent Labs 12/21/14 0445 12/17/14 1105 AST 213* 28 ALT 174* 39* ALKPHOS 79 93 BILITOT 0.7 0.4 BILIDIR 0.2 0.1 No results for input(s): INR, PT, PTT in the last 72 hours. Recent Labs 12/17/14 1105 LDH 203 URICACID 4.0 Tumor Lysis Labs: Recent Labs 12/22/14 0245 12/21/14 0445 12/20/14 0354 12/17/14 1105 URICACID -- -- -- -- 4.0 PHOS 3.2 2.8 3.4 < > -- K 3.2* 4.1 3.3* < > 4.2 < > = values in this interval not displayed. Microbiology: Urinalysis from septic work up negative Pertinent radiology/diagnostic studies: IMPRESSION: 1. No focal consolidation to suggest pneumonia. 2. Nonspecific radiodensity projecting over the medial LEFT lung base of uncertain etiology or clinical significance. ASSESSMENT: Myriam De Souza is a 64 y.o. 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 PLAN: # Auto transplant Day -1 REST TODAY # Nausea Not gettingscheduled Zofran 16 mg BID for nausea on account of headaches and constipation. Ativan 0.5 mg q 6 hours #Loss of appetite Nutrition consult ordered #Hiccups Mild Monitor Consider Thorazine, gabapentin, reglan if it becomes intractible # Headache Low-grade headache May be r/t Zofran but improved Nasal spray prn #Anxiety Ativan as ordered #Insomnia Continue w/ Ambien #Constipation Small, hard BM today Continue Pericolace TID Miralax today and PRN #Electrolytes Mag and potassium replacement today CODE STATUS: Full code DIET: Regluar ACTIVITY: Walk 1 mile per day DVT Prophylaxis: Lovenox 40 mg daily Updated Plan: 1. Day -1 of APSCT; Rest today 2. If further anti-emetics nec, will consider non-ondansetron alternative (eg, reglan, scopolamine), given pt's existing headache and constipation. Reglan will be a good alternative as it may help both nausea and hiccups 3. Continue close monitoring of wt/volume status as per transplant routine. Lasix diuresis prn. 4. Peripheral blood stem cell reinfusion scheduled for 12/23. All questions answered at time of this visit This patient meets criteria for inpatient level of care due to the above medical complexity. Patient seen, examined and discussed with Dr Graciela Hernandez MD Fellow, Hematology & Oncology Pager [phone] * Wild Owens MD - 12/21/2014 1:32 PM EST 1 [place] [facility]Oncology/SCT Progress Note Patient info: Patient Name: Myriam De Souza : 1950 Service: Hematology - GUEST SERVICE MANAGER Responsible Attending: Dr. Foote Date of Admission: 12/17/2014 ( Hospital Day 4 days ) Service: 1 [place] [facility] Pract[facility] Interval history: Myriam De Souza is a 64 y.o. female with diffuse large B cell lymphoma who is admitted for autologous stem cell transplant. She is day -3. She had a very difficult night. Spiked a fever to 39.2 approx 3+ hours after Etoposide infusion. Full septic work up initiated. CXR neg. Blood/ urine pending. No further fevers. Required Demerol for rigors. This morning Myriam is feeling exhausted. She has a low-grade frontal headache and is nauseated requiring IV Compazine. Taking in minimal po fluids. Requesting to get up to the shower as she was incontinent of urine during the night - wasn't able to get to the bathroom quickly enough. Has a bedside commode. In the afternoon, Myriam was feeling much better but still quite fatigued. Has persistent, mild nausea and low-grade headache which she attributes to nasal stuffiness. Requesting nasal saline spray. Concerned she has not had a good bowel movement. [employer] works for her. Walked up to 5th floor and two laps around the POD. Daughter remains at bedside. Hospital Problem List: Patient Active Problem List Diagnosis Code ??? Lymphoma C85.90 ??? Depression with anxiety F41.8 ??? Hypokalemia E87.6 ??? Hypomagnesemia E83.42 ??? Neutropenia D70.9 ??? Chemotherapy adverse reaction [id number] Antimicrobials: Acyclovir 800 bid Fluconazole 200 mg bid - begin on day 0 Keflex 500 mg qid - begin on day 0 ( allergy to Levaquin ) Chemotherapy/Transplant Meds: # Chemotherapy - CBV Conditioning Regimen prior to autologous stem cell transplant -Carmustine 15mg/kg (dose to be given 825 mg) IV x1 on day -6 (12/17/14) over 2 hours -Day -5 (12/18/14): Rest day -Etoposide 60/mg/kg (dose to be given 3,300 mg) IV x1 on day -4 (12/19/14) over 4 hours -Day -3 (12/20/14): Rest day -Cyclophosphamide 100mg/kg (dose to be given 5,500 mg) IV x1 on day -2 (12/21/14) over 2 hours -Mesna 120mg/kg (dose to be given 3,990 mg) IV x1 dose on day -2 (12/21 ) over 24 hours -Day -1 (12/22/14) Rest day -Day 0 (12/24/14) -Stem Cell Transplant -Days 1-14 (12/17-12/28/14) -Awaiting Count Recovery # Antiemetics: -Zofran 16mg IV or PO beginning on day -6 and ongoing until day -3 -Palonsoetron 0.25 IV push on day -2 one hour prior to cyclophosphamide -Lorazepam 0.5mg PO/IV every 6 hours scheduled nausea/anxiety. May repeat once in 30 minutes if prior dose ineffective. -Aprepitant 125mg PO prior to cyclophosphamide on day -2, then aprepitant 80 mg PO daily on day -1. -Zofran 8mg PO/IV every 8 hours as needed beginning on day +1 # Pre-Medications: -Benadryl 25mg IV 30 minutes prior to etoposide and repeat 2 hours into the infusion. -Hydrocortisone 80mg IV 30 minutes prior to etoposide and repeat 2 hours into the infusion. # Chemotherapy Hydration: - for day -6 (carmustine hydration): give 0.9% NS IV @ 250ml/hr x4 hours before carmustine. Hold during carmustine. Restart @ 250ml for 2 hours after carmustine. - for day -4 (etoposide hydration): concurrent with etoposide run IV 0.9% NS IV @ 1,000mg/hr x 4 hours. Post etoposide, run 0.9% NS at 500ml/hr for 30 minutes, then at 250ml/hr for 30 minutes, then at 125ml/hr for 3 hours then stop. - for day -2 (cyclophosphamide hydration): give 0.9% NS IV @ 250ml/hr starting one hour prior to cyclophosphamide and continuing for at least 6 hours after completion of the cyclophosphamide. # FEN: - Lasix 20mg IV once 4 hours after completing etoposide as needed dyspnea only. Hold if SBP is lessthan 110. - Lasix 20mg IV once daily PRN wt greater than 1 kg above admit baseline - Lasix 20mg for wt greater than 1 kg over 12 hours or input exceeding output by greater than 1000ml per 12 hours. Hold if SBP is less than 90mmHg prior to Lasix administration. -Magnesium and potassium repletion per SOP. # Infection Prophylaxis: - If HSV positive: acyclovir 800mg PO BID on admit or Acyclovir 500mg IV every 12 hours if unable to take by mouth. - Keflex 500 mg QID po daily starting Day 0 -Fluconazole 400mg po daily starting Day 0 - Bactrim DS one table PO once daily from admission until and including day -2. Discontinue after day -2 dose given. - On day +30 start Bactrim DS one table once daily. #Nursing Care -Strict I/O -Caphosol 30mL four times a day -Neutropenic precautions and diet. -Weight BID -Incentive spirometry every 2 hours. -Rectal, oral, skin care per SOP Pain meds: Oxycodone 5 mg po Q 6 hours prn Access Lines: -Left chest mediport site is CDI with no signs of infection. CURRENT MEDS: ??? zolpidem 5 mg Oral Nightly ??? senna-docusate 1 tablet Oral TID ??? [START ON 12/23/2014] cephalexin 500 mg Oral 4 Times Daily ??? [START ON 12/22/2014] aprepitant 80 mg Oral Daily ??? esomeprazole 40 mg Oral Daily ??? supersaturated calcium phosphate 30 mL Oral 4 Times Daily ??? [START ON 12/23/2014] fluconazole 400 mg Oral Daily ??? acyclovir 800 mg Oral BID ??? mesna (MESNEX) infusion 60 mg/kg/dose (Treatment Plan Actual) Intravenous Q12H ??? cyclophosphamide (CYTOXAN) chemo infusion 100 mg/kg/dose (Treatment Plan Adjusted) Intravenous Once ??? [START ON 12/23/2014] acetaminophen 650 mg Oral Once ??? [START ON 12/23/2014] diphenhydrAMINE 50 mg Oral Once ??? [START ON 12/28/2014] filgrastim 480 mcg Subcutaneous Daily ??? escitalopram oxalate 10 mg Oral Daily ??? LORazepam 0.5 mg Oral Q6H ??? sodium chloride 0.9 % 5 mL Intravenous BID ??? enoxaparin 40 mg Subcutaneous Daily VITALS: Last value Range last 24 hrs Temperature Temp: 37.1 ??C (98.8 ??F) Temp: [35.9 ??C (96.6 ??F)-37.5 ??C (99.5 ??F)] Heart Rate Heart Rate: 85 Heart Rate: [82-97] Blood Pressure BP: 116/68 mmHg BP: (106-118)/(60-74) Respiratory Rate Resp: 18 Resp: [16-19] SpO2 SpO2: 95 % SpO2: [95 %-96 %] Intake/Output Summary (Last 24 hours) at 12/21/14 1333 Last data filed at 12/21/14 1320 Gross per 24 hour Intake 1585 ml Output 1900 ml Net -315 ml Patient Vitals for the past 168 hrs: Weight 12/21/14 0450 67.6 kg (149 lb 0.5 oz) 12/20/14 1524 68.8 kg (151 lb 10.8 oz) 12/20/14 0550 68.2 kg (150 lb 5.7 oz) 12/19/14 1525 66.8 kg (147 lb 4.3 oz) 12/19/14 0344 65.9 kg (145 lb 4.5 oz) 12/18/14 1413 67.9 kg (149 lb 11.1 oz) 12/18/14 0328 68 kg (149 lb 14.6 oz) 12/17/14 1400 67.4 kg (148 lb 9.4 oz) Admit wt:68.1 in clinic. Change in weight to today: weight: stable ( admit 68.1. Pm weight 68.2 ). PHYSICAL EXAM: Constitutional: Appears exhausted but managing a smile. HEENT: EOMI, PERRL. Oropharynx is clear and moist. No oropharyngeal lesions or exudate. Neck: Normal range of motion. Neck supple. No masses. Cardiovascular: RRR. No murmur or rubs heard. Normal pulses. Pulmonary/Chest: Clear to auscultation bilaterally, no wheezes or crackles. Abdomen: Soft, non-tender, non-distended. Bowel sounds are normal. Lymphadenopathy: No adenopathy Neurological: Alert and oriented to person, place, and time. Skin: Skin is warm and dry. No obvious rashes, ecchymosis, lesions or petechiae. Psychiatric: A&O. Left chest wall mediport w/out s/s infection. Labs: Recent Labs 12/20/14 0354 12/17/14 1400 WBC 13.6* 5.4 HGB 7.3* 8.7* HCT 21.3* 24.6* PLATELET 104* 165 NEUTROABS 13.17* 3.74 Recent Labs 12/21/14 0445 12/20/14 0354 12/19/14 0350 NA 142 149* 143 K 4.1 3.3* 4.0 CL 107 112* 104 CO2 24 21* 30 BUN 20* 18 16 CREATININE 0.90 1.03 0.96 GLUCOSE 90 136 93 Recent Labs 12/21/14 0445 12/20/14 0354 12/19/14 0350 CALCIUM 8.9 8.3* 9.4 MAGNESIUM 0.79 0.54* 0.86 PHOS 2.8 3.4 3.2 Recent Labs 12/21/14 0445 12/17/14 1105 AST 213* 28 ALT 174* 39* ALKPHOS 79 93 BILITOT 0.7 0.4 BILIDIR 0.2 0.1 No results for input(s): INR, PT, PTT in the last 72 hours. Recent Labs 12/17/14 1105 LDH 203 URICACID 4.0 Tumor Lysis Labs: Recent Labs 12/21/145 12/20/14 0354 12/19/14 0350 12/17/14 1105 URICACID -- -- -- -- 4.0 PHOS 2.8 3.4 3.2 < > -- K 4.1 3.3* 4.0 < > 4.2 < > = values in this interval not displayed. Microbiology: Urinalysis from septic work up negative Pertinent radiology/diagnostic studies: IMPRESSION: 1. No focal consolidation to suggest pneumonia. 2. Nonspecific radiodensity projecting over the medial LEFT lung base of uncertain etiology or clinical significance. ASSESSMENT: Myriam De Souza is a 64 y.o. 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 PLAN: # Auto transplant Day -2 Cytoxan today # Nausea Continue scheduled Zofran 16 mg BID for nausea Ativan 0.5 mg q 6 hours # Headache Low-grade headache May be r/t Zofran Nasal spray prn #Anxiety Ativan as ordered #Insomnia Continue w/ Ambien #Constipation Small, hard BM today Continue Pericolace TID Miralax today and PRN #Electrolytes Mag and potassium replacement today CODE STATUS: Full code DIET: Regluar ACTIVITY: Walk 1 mile per day DVT Prophylaxis: Lovenox 40 mg daily Updated Plan: 1. Day -2 of APSCT; due for Cytoxan today with hyrdation 2. If further anti-emetics nec, will consider non-ondansetron alternative (eg, reglan, scopolamine), given pt's existing headache and constipation. 3. Continue close monitoring of wt/volume status as per transplant routine. Lasix diuresis prn. 4. Peripheral blood stem cell reinfusion scheduled for 12/23. All questions answered at time of this visit This patient meets criteria for inpatient level of care due to the above medical complexity. Wild Owens MD [employer] adviser Section of Hematology/Oncology [facility] * Ghassan Ho MSW - 12/20/2014 1:56 PM EST 12/19/14 1100 Social Work Plan Plan Pt, 64 DWF admitted for Auto-PBSCT for refractroty DLBCL. Please r/t comperhensive psychosocial assessment dated 10/11/14 located in Amubulatory Notes. Met brifely with pt and dtr while she pt was receiving RN care. Pt appreciates follow-up support-no current issues noted. Will follow through di sposition for DEPARTMENTAL SECRETARY support Patient/Family in Agreement with Plan yes * Justin Foote MD - 12/20/2014 9:31 AM EST 1 [place] Inpatient Hematology/Oncology/SCT Progress Note Patient info: Patient Name: Myriam De Souza : 1950 Service: Hematology - GUEST SERVICE MANAGER Responsible Attending: Dr. Foote Date of Admission: 12/17/2014 ( Hospital Day 3 days ) Service: 1 [place] Nurse Practitioner Services Interval history: Myriam De Souza is a 64 y.o. female with diffuse large B cell lymphoma who is admitted for autologous stem cell transplant. She is day -3. She had a very difficult night. Spiked a fever to 39.2 approx 3+ hours after Etoposide infusion. Full septic work up initiated. CXR neg. Blood/ urine pending. No further fevers. Required Demerol for rigors. This morning Myriam is feeling exhausted. She has a low-grade frontal headache and is nauseated requiring IV Compazine. Taking in minimal po fluids. Requesting to get up to the shower as she was incontinent of urine during the night - wasn't able to get to the bathroom quickly enough. Has a bedside commode. In the afternoon, Myriam was feeling much better but still quite fatigued. Has persistent, mild nausea and low-grade headache which she attributes to nasal stuffiness. Requesting nasal saline spray. Concerned she has not had a good bowel movement. [employer] works for her. Walked up to 5th floor and two laps around the POD. Daughter remains at bedside. Hospital Problem List: Patient Active Problem List Diagnosis Code ??? Lymphoma C85.90 ??? Depression with anxiety F41.8 ??? Hypokalemia E87.6 ??? Hypomagnesemia E83.42 ??? Neutropenia D70.9 Antimicrobials: Acyclovir 800 bid Fluconazole 200 mg bid - begin on day 0 Keflex 500 mg qid - begin on day 0 ( allergy to Levaquin ) Chemotherapy/Transplant Meds: # Chemotherapy - CBV Conditioning Regimen prior to autologous stem cell transplant -Carmustine 15mg/kg (dose to be given 825 mg) IV x1 on day -6 (12/17/14) over 2 hours -Day -5 (12/18/14): Rest day -Etoposide 60/mg/kg (dose to be given 3,300 mg) IV x1 on day -4 (12/19/14) over 4 hours -Day -3 (12/20/14): Rest day -Cyclophosphamide 100mg/kg (dose to be given 5,500 mg) IV x1 on day -2 (12/21/14) over 2 hours -Mesna 120mg/kg (dose to be given 3,990 mg) IV x1 dose on day -2 (12/21 ) over 24 hours -Day -1 (12/22/14) Rest day -Day 0 (12/24/14) -Stem Cell Transplant -Days 1-14 (12/17-12/28/14) -Awaiting Count Recovery # Antiemetics: -Zofran 16mg IV or PO beginning on day -6 and ongoing until day -3 -Palonsoetron 0.25 IV push on day -2 one hour prior to cyclophosphamide -Lorazepam 0.5mg PO/IV every 6 hours scheduled nausea/anxiety. May repeat once in 30 minutes if prior dose ineffective. -Aprepitant 125mg PO prior to cyclophosphamide on day -2, then aprepitant 80 mg PO daily on day -1. -Zofran 8mg PO/IV every 8 hours as needed beginning on day +1 # Pre-Medications: -Benadryl 25mg IV 30 minutes prior to etoposide and repeat 2 hours into the infusion. -Hydrocortisone 80mg IV 30 minutes prior to etoposide and repeat 2 hours into the infusion. # Chemotherapy Hydration: - for day -6 (carmustine hydration): give 0.9% NS IV @ 250ml/hr x4 hours before carmustine. Hold during carmustine. Restart @ 250ml for 2 hours after carmustine. - for day -4 (etoposide hydration): concurrent with etoposide run IV 0.9% NS IV @ 1,000mg/hr x 4 hours. Post etoposide, run 0.9% NS at 500ml/hr for 30 minutes, then at 250ml/hr for 30 minutes, then at 125ml/hr for 3 hours then stop. - for day -2 (cyclophosphamide hydration): give 0.9% NS IV @ 250ml/hr starting one hour prior to cyclophosphamide and continuing for at least 6 hours after completion of the cyclophosphamide. # FEN: - Lasix 20mg IV once 4 hours after completing etoposide as needed dyspnea only. Hold if SBP is lessthan 110. - Lasix 20mg IV once daily PRN wt greater than 1 kg above admit baseline - Lasix 20mg for wt greater than 1 kg over 12 hours or input exceeding output by greater than 1000ml per 12 hours. Hold if SBP is less than 90mmHg prior to Lasix administration. -Magnesium and potassium repletion per SOP. # Infection Prophylaxis: - If HSV positive: acyclovir 800mg PO BID on admit or Acyclovir 500mg IV every 12 hours if unable to take by mouth. - Keflex 500 mg QID po daily starting Day 0 -Fluconazole 400mg po daily starting Day 0 - Bactrim DS one table PO once daily from admission until and including day -2. Discontinue after day -2 dose given. - On day +30 start Bactrim DS one table once daily. #Nursing Care -Strict I/O -Caphosol 30mL four times a day -Neutropenic precautions and diet. -Weight BID -Incentive spirometry every 2 hours. -Rectal, oral, skin care per SOP Pain meds: Oxycodone 5 mg po Q 6 hours prn Access Lines: -Left chest mediport site is CDI with no signs of infection. CURRENT MEDS: ??? zolpidem 5 mg Oral Nightly ??? senna-docusate 1 tablet Oral TID ??? ondansetron 16 mg Intravenous Q12H ??? [START ON 12/23/2014] cephalexin 500 mg Oral 4 Times Daily ??? [START ON 12/21/2014] palonosetron 0.25 mg Intravenous Once ??? [START ON 12/21/2014] aprepitant 125 mg Oral Once ??? [START ON 12/22/2014] aprepitant 80 mg Oral Daily ??? esomeprazole 40 mg Oral Daily ??? supersaturated calcium phosphate 30 mL Oral 4 Times Daily ??? [START ON 12/23/2014] fluconazole 400 mg Oral Daily ??? acyclovir 800 mg Oral BID ??? [START ON 12/21/2014] mesna (MESNEX) infusion 60 mg/kg/dose (Treatment Plan Actual) Intravenous Q12H ??? [START ON 12/21/2014] cyclophosphamide (CYTOXAN) chemo infusion 100 mg/kg/dose (Treatment Plan Adjusted) Intravenous Once ??? [START ON 12/23/2014] acetaminophen 650 mg Oral Once ??? [START ON 12/23/2014] diphenhydrAMINE 50 mg Oral Once ??? [START ON 12/28/2014] filgrastim 480 mcg Subcutaneous Daily ??? escitalopram oxalate 10 mg Oral Daily ??? LORazepam 0.5 mg Oral Q6H ??? senna 8.6 mg Oral Daily ??? sodium chloride 0.9 % 5 mL Intravenous BID ??? enoxaparin 40 mg Subcutaneous Daily VITALS: Last value Range last 24 hrs Temperature Temp: 37 ??C (98.6 ??F) Temp: [37 ??C (98.6 ??F)-39.2 ??C (102.6 ??F)] Heart Rate Heart Rate: 91 Heart Rate: [91-125] Blood Pressure BP: 108/64 mmHg BP: (100-122)/(60-70) Respiratory Rate Resp: 16 Resp: [12-20] SpO2 SpO2: 97 % SpO2: [92 %-97 %] Intake/Output Summary (Last 24 hours) at 12/20/14 0931 Last data filed at 12/20/14 0655 Gross per 24 hour Intake 6731 ml Output 4850 ml Net 1881 ml Patient Vitals for the past 168 hrs: Weight 12/20/14 0550 68.2 kg (150 lb 5.7 oz) 12/19/14 1525 66.8 kg (147 lb 4.3 oz) 12/19/14 0344 65.9 kg (145 lb 4.5 oz) 12/18/14 1413 67.9 kg (149 lb 11.1 oz) 12/18/14 0328 68 kg (149 lb 14.6 oz) 12/17/14 1400 67.4 kg (148 lb 9.4 oz) Admit wt:68.1 in clinic. Change in weight to today: weight: stable ( admit 68.1. Pm weight 68.2 ). PHYSICAL EXAM: Constitutional: Appears exhausted but managing a smile. HEENT: EOMI, PERRL. Oropharynx is clear and moist. No oropharyngeal lesions or exudate. Neck: Normal range of motion. Neck supple. No masses. Cardiovascular: RRR. No murmur or rubs heard. Normal pulses. Pulmonary/Chest: Clear to auscultation bilaterally, no wheezes or crackles. Abdomen: Soft, non-tender, non-distended. Bowel sounds are normal. Lymphadenopathy: No adenopathy Neurological: Alert and oriented to person, place, and time. Skin: Skin is warm and dry. No obvious rashes, ecchymosis, lesions or petechiae. Psychiatric: A&O. Left chest wall mediport w/out s/s infection. Labs: Recent Labs 12/20/14 0354 12/17/14 1400 WBC 13.6* 5.4 HGB 7.3* 8.7* HCT 21.3* 24.6* PLATELET 104* 165 NEUTROABS 13.17* 3.74 Recent Labs 12/20/14 0354 12/19/14 0350 12/18/14 0330 NA 149* 143 137 K 3.3* 4.0 4.3 CL 112* 104 102 CO2 21* 30 26 BUN 18 16 23* CREATININE 1.03 0.96 0.97 GLUCOSE 136 93 116 Recent Labs 12/20/14 0354 12/19/14 0350 12/18/14 0330 CALCIUM 8.3* 9.4 8.8 MAGNESIUM 0.54* 0.86 0.61* PHOS 3.4 3.2 3.3 Recent Labs 12/17/14 1105 AST 28 ALT 39* ALKPHOS 93 BILITOT 0.4 BILIDIR 0.1 No results for input(s): INR, PT, PTT in the last 72 hours. Recent Labs 12/17/14 1105 LDH 203 URICACID 4.0 Tumor Lysis Labs: Recent Labs 12/20/14 0354 12/19/14 0350 12/18/14 0330 12/17/14 1105 URICACID -- -- -- 4.0 PHOS 3.4 3.2 3.3 -- K 3.3* 4.0 4.3 4.2 Microbiology: Urinalysis from septic work up negative Pertinent radiology/diagnostic studies: IMPRESSION: 1. No focal consolidation to suggest pneumonia. 2. Nonspecific radiodensity projecting over the medial LEFT lung base of uncertain etiology or clinical significance. ASSESSMENT: Myriam De Souza is a 64 y.o. female day -3 of autologous stem cell transplant for diffuse large cell lymphoma. PLAN: # Auto transplant Day -3 Rest day today. Cytoxan tomorrow # Nausea Continue scheduled Zofran 16 mg BID for nausea Ativan 0.5 mg q 6 hours # Headache Low-grade headache May be r/t Zofran Nasal spray prn #Anxiety Ativan as ordered #Insomnia Continue w/ Ambien #Constipation Small, hard BM today Continue Pericolace TID Miralax today and PRN #Electrolytes Mag and potassium replacement today CODE STATUS: Full code DIET: Regluar ACTIVITY: Walk 1 mile per day DVT Prophylaxis: Lovenox 40 mg daily Michelle Kemp APRN [facility] 1 [place] Hematology/Oncology Nurse Practitioner Services Hematology/BMT Inpatient Shared Visit Staff Addendum: I have participated in this shared medical visit via interview and examination of the patient, review of all pertinent clinical, laboratory and radiographic data and discussion of the case on rounds with the Hematology/BMT Inpatient SPACER TYPE BAR AND SEGMENT Team today. I agree with the findings, assessment and plan asoutlined in today's SPACER [employer] SEGMENT note, with any changes or add'l comments included below. 64 year old woman with primary refractory DLBCL now day -3 of high-dose CBV therapy and APSCT. She is overall clinically stable, with pre-adm'n neg PET/CT after initial R-CHOP followed by salvage DHAP therapy. Had usual effects following BCNU (resolved), then fever and rigors 3-4 hrs after Etoposide infusion yesterday, with lingering malaise, nausea and headache today. Also with constipation thatis being addressed with increased bowel regimen. Cytoxan due on 12/21, and we are closely following net positive wt relative to pre-adm'n baseline, with prn lasix diuresis. Updated Plan: 1. Day -3 of APSCT; due for Cytoxan on 12/21. 2. If further anti-emetics nec, will consider non-ondansetron alternative (eg, reglan, scopolamine), given pt's existing headache and constipation. 3. Continue close monitoring of wt/volume status as per transplant routine. Lasix diuresis prn. 4. Peripheral blood stem cell reinfusion scheduled for 12/23. This patient meets criteria for inpatient level of care due to the above medical complexity. RODOLFO Foote MD Heme/Onc Section * Bernadette Cintron U - 12/19/2014 11:19 PM EST Was called by RN that patient spiked temp.it is within >3 hours after chemo. As advised will getUA, CXR, Blood cultures. Close observation. Discussed with RN. * Bernadette Cintron U - 12/19/2014 10:08 PM EST Was requested by RN to prescribe demerol iv for rigors.discussed with pharmacy,she reviewed patientmedication.according to pharmacy it should be fine. 25 mg iv demerol was prescribed. * Justin Foote MD - 12/19/2014 12:20 PM EST 1 [place] Inpatient Hematology/Oncology/SCT Progress Note Patient info: Patient Name: Myriam De Souza : 1950 Service: Hematology - GUEST SERVICE MANAGER Responsible Attending: Dr. Foote Date of Admission: 12/17/2014 ( Hospital Day 2 days ) Service: [facility] Nurse Practitioner Services Interval history: Myriam De Souza is a 64 y.o. female with diffuse large B cell lymphoma who is admitted for autologous stem cell transplant. She is day -4. Had a good night with resolution of her headache and nausea. She felt Ambien helped her have a good night's sleep. Ate a full breakfast. Has been up walking the halls this morning. She is concerned about having a bowel movement and has requested a laxative today. Daughter will be here until day 0. [facility]. Due for Etoposide today. Hospital Problem List: Patient Active Problem List Diagnosis Code ??? Lymphoma C85.90 ??? Depression with anxiety F41.8 ??? Hypokalemia E87.6 ??? Hypomagnesemia E83.42 ??? Neutropenia D70.9 Antimicrobials: Acyclovir 800 bid Fluconazole 200 mg bid - begin on day 0 Keflex 500 mg qid - begin on day 0 ( allergy to Levaquin ) Chemotherapy/Transplant Meds: # Chemotherapy - CBV Conditioning Regimen prior to autologous stem cell transplant -Carmustine 15mg/kg (dose to be given 825 mg) IV x1 on day -6 (12/17/14) over 2 hours -Day -5 (12/18/14): Rest day -Etoposide 60/mg/kg (dose to be given 3,300 mg) IV x1 on day -4 (12/19/14) over 4 hours -Day -3 (12/20/14): Rest day -Cyclophosphamide 100mg/kg (dose to be given 5,500 mg) IV x1 on day -2 (12/21/14) over 2 hours -Mesna 120mg/kg (dose to be given 3,990 mg) IV x1 dose on day -2 (12/21 ) over 24 hours -Day -1 (12/22/14) Rest day -Day 0 (12/24/14) -Stem Cell Transplant -Days 1-14 (12/17-12/28/14) -Awaiting Count Recovery # Antiemetics: -Zofran 16mg IV or PO beginning on day -6 and ongoing until day -3 -Palonsoetron 0.25 IV push on day -2 one hour prior to cyclophosphamide -Lorazepam 0.5mg PO/IV every 6 hours scheduled nausea/anxiety. May repeat once in 30 minutes if prior dose ineffective. -Aprepitant 125mg PO prior to cyclophosphamide on day -2, then aprepitant 80 mg PO daily on day -1. -Zofran 8mg PO/IV every 8 hours as needed beginning on day +1 # Pre-Medications: -Benadryl 25mg IV 30 minutes prior to etoposide and repeat 2 hours into the infusion. -Hydrocortisone 80mg IV 30 minutes prior to etoposide and repeat 2 hours into the infusion. # Chemotherapy Hydration: - for day -6 (carmustine hydration): give 0.9% NS IV @ 250ml/hr x4 hours before carmustine. Hold during carmustine. Restart @ 250ml for 2 hours after carmustine. - for day -4 (etoposide hydration): concurrent with etoposide run IV 0.9% NS IV @ 1,000mg/hr x 4 hours. Post etoposide, run 0.9% NS at 500ml/hr for 30 minutes, then at 250ml/hr for 30 minutes, then at 125ml/hr for 3 hours then stop. - for day -2 (cyclophosphamide hydration): give 0.9% NS IV @ 250ml/hr starting one hour prior to cyclophosphamide and continuing for at least 6 hours after completion of the cyclophosphamide. # FEN: - Lasix 20mg IV once 4 hours after completing etoposide as needed dyspnea only. Hold if SBP is lessthan 110. - Lasix 20mg IV once daily PRN wt greater than 1 kg above admit baseline - Lasix 20mg for wt greater than 1 kg over 12 hours or input exceeding output by greater than 1000ml per 12 hours. Hold if SBP is less than 90mmHg prior to Lasix administration. -Magnesium and potassium repletion per SOP. # Infection Prophylaxis: - If HSV positive: acyclovir 800mg PO BID on admit or Acyclovir 500mg IV every 12 hours if unable to take by mouth. - Keflex 500 mg QID po daily starting Day 0 -Fluconazole 400mg po daily starting Day 0 - Bactrim DS one table PO once daily from admission until and including day -2. Discontinue after day -2 dose given. - On day +30 start Bactrim DS one table once daily. #Nursing Care -Strict I/O -Caphosol 30mL four times a day -Neutropenic precautions and diet. -Weight BID -Incentive spirometry every 2 hours. -Rectal, oral, skin care per SOP Pain meds: Oxycodone 5 mg po Q 6 hours prn Access Lines: -Left chest mediport site is CDI with no signs of infection. CURRENT MEDS: ??? zolpidem 5 mg Oral Nightly ??? ondansetron 16 mg Intravenous Q12H ??? [START ON 12/23/2014] cephalexin 500 mg Oral 4 Times Daily ??? diphenhydrAMINE 25 mg Intravenous Once ??? diphenhydrAMINE 25 mg Intravenous Once ??? hydrocortisone 1 mg/kg/dose (Treatment Plan Actual) Intravenous Once ??? hydrocortisone 1 mg/kg/dose (Treatment Plan Actual) Intravenous Once ??? [START ON 12/21/2014] palonosetron 0.25 mg Intravenous Once ??? [START ON 12/21/2014] aprepitant 125 mg Oral Once ??? [START ON 12/22/2014] aprepitant 80 mg Oral Daily ??? esomeprazole 40 mg Oral Daily ??? supersaturated calcium phosphate 30 mL Oral 4 Times Daily ??? [START ON 12/23/2014] fluconazole 400 mg Oral Daily ??? acyclovir 800 mg Oral BID ??? etoposide 60 mg/kg/dose (Treatment Plan Adjusted) Intravenous Once ??? [START ON 12/21/2014] mesna (MESNEX) infusion 60 mg/kg/dose (Treatment Plan Actual) Intravenous Q12H ??? [START ON 12/21/2014] cyclophosphamide (CYTOXAN) chemo infusion 100 mg/kg/dose (Treatment Plan Adjusted) Intravenous Once ??? [START ON 12/23/2014] acetaminophen 650 mg Oral Once ??? [START ON 12/23/2014] diphenhydrAMINE 50 mg Oral Once ??? [START ON 12/28/2014] filgrastim 480 mcg Subcutaneous Daily ??? docusate sodium 100 mg Oral BID ??? escitalopram oxalate 10 mg Oral Daily ??? LORazepam 0.5 mg Oral Q6H ??? senna 8.6 mg Oral Daily ??? sodium chloride 0.9 % 5 mL Intravenous BID ??? enoxaparin 40 mg Subcutaneous Daily VITALS: Last value Range last 24 hrs Temperature Temp: 36.9 ??C (98.4 ??F) Temp: [36.9 ??C (98.4 ??F)-37.1 ??C (98.8 ??F)] Heart Rate Heart Rate: 108 Heart Rate: [98-108] Blood Pressure BP: 106/64 mmHg BP: (106-124)/(64-76) Respiratory Rate Resp: 20 Resp: [16-20] SpO2 SpO2: 96 % SpO2: [95 %-99 %] Intake/Output Summary (Last 24 hours) at 12/19/14 1220 Last data filed at 12/19/14 1100 Gross per 24 hour Intake 1508 ml Output 2500 ml Net -992 ml Patient Vitals for the past 168 hrs: Weight 12/19/14 0344 65.9 kg (145 lb 4.5 oz) 12/18/14 1413 67.9 kg (149 lb 11.1 oz) 12/18/14 0328 68 kg (149 lb 14.6 oz) 12/17/14 1400 67.4 kg (148 lb 9.4 oz) Admit wt:67.4 kg Change in weight to today: Weight change: 0.5 kg (1 lb 1.6 oz) PHYSICAL EXAM: Constitutional: Looks well this morning in good spirits HEENT: EOMI, PERRL. Oropharynx is clear and moist. No oropharyngeal lesions or exudate. Neck: Normal range of motion. Neck supple. No masses. Cardiovascular: RRR. No murmur or rubs heard. Normal pulses. Pulmonary/Chest: Clear to auscultation bilaterally, no wheezes or crackles, breathing symmetrical with no retractions or accessory muscle use. Abdomen: Soft, non-tender, non-distended. Bowel sounds are normal. Lymphadenopathy: No adenopathy Neurological: Alert and oriented to person, place, and time. Skin: Skin is warm and dry. No obvious rashes, ecchymosis, lesions or petechiae. Psychiatric: Normal mood and affect. Labs: Recent Labs 12/17/14 1400 WBC 5.4 HGB 8.7* HCT 24.6* PLATELET 165 NEUTROABS 3.74 Recent Labs 12/19/14 0350 12/18/14 0330 12/17/14 1105 NA 143 137 141 K 4.0 4.3 4.2 CL 104 102 102 CO2 30 26 27 BUN 16 23* 24* CREATININE 0.96 0.97 1.06 GLUCOSE 93 116 143 Recent Labs 12/19/14 0350 12/18/14 0330 12/17/14 1105 CALCIUM 9.4 8.8 9.5 MAGNESIUM 0.86 0.61* -- PHOS 3.2 3.3 -- Recent Labs 12/17/14 1105 AST 28 ALT 39* ALKPHOS 93 BILITOT 0.4 BILIDIR 0.1 No results for input(s): INR, PT, PTT in the last 72 hours. Recent Labs 12/17/14 1105 LDH 203 URICACID 4.0 Tumor Lysis Labs: Recent Labs 12/19/14 0350 12/18/14 0330 12/17/14 1105 URICACID -- -- 4.0 PHOS 3.2 3.3 -- K 4.0 4.3 4.2 Microbiology: Urine clear today Pertinent radiology/diagnostic studies: None at current time. ASSESSMENT: Myriam De Souza is a 64 y.o. 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 Doing very well today. Up walking, showering, eating all meals. Side effects from Carmustine have resolved. PLAN: # Auto transplant Day -4 Etoposide tonight # Nausea Continue scheduled Zofran 16 mg BID for nausea Ativan 0.5 mg q 6 hours # Headache Resolved #Anxiety Ativan as ordered #Insomnia Ambien was helpful last night. Will write for scheduled Ambien #Constipation Two small, hard BM today Begin Pericolace TID #Electrolytes Stable today Note: After discussion with Dr. Foote, will hold off on any fever work-up if Myriam spikes during or two hours after infusion of Etoposide. She may have Tylenol as needed. If she spikes 4-6 hours afterthe infusion, proceed with septic work-up. CODE STATUS: Full code DIET: Regluar ACTIVITY: Walk 1 mile per day DVT Prophylaxis: Lovenox 40 mg daily Michelle Kemp APRN [address] Hematology/Oncology Nurse Practitioner Services Hematology/BMT Inpatient Shared Visit Staff Addendum: I have participated in this shared medical visit via interview and examination of the patient, review of all pertinent clinical, laboratory and radiographic data and discussion of the case on rounds with the Hematology/BMT Inpatient SPACER TYPE BAR AND SEGMENT Team today. I agree with the findings, assessment and plan asoutlined in today's SPACER TYPE BAR AND SEGMENT note, with any changes or add'l comments included below. 64 year old woman with primary refractory DLBCL now day -4 of high-dose CBV therapy and APSCT. She is overall clinically well, with recent neg PET/CT after initial R-CHOP followed by salvage DHAP therapy. Noted typical BCNU side effects (headache, nausea), now resolved, and she is due for Etoposideinfusion today. Wt moderately net negative relative to pre-adm'n baseline, and we will continue to follow this parameter closely. Updated Plan: 1. Due for Etoposide today; Cytoxan on 12/21. 2. Repeat urinalysis neg. No current indication for therapeutic atbx. 3. Close monitoring of wt/volume status as per transplant routine. 4. Peripheral blood stem cell reinfusion scheduled for 12/23. This patient meets criteria for inpatient level of care due to the above medical complexity. RODOLFO Foote MD Heme/Onc Section * Beckie Krys, RD - 12/18/2014 3:16 PM EST Nutrition Progress Note: S: Per pt: I don't think I will eat today. Appetite: poor Chewing/Swallowing: no problems noted N/V: vomiting, not really feeling nauseous O: Patient Active Problem List Diagnosis Code ??? Lymphoma C85.90 ??? Depression with anxiety F41.8 ??? Hypokalemia E87.6 ??? Hypomagnesemia E83.42 ??? Neutropenia D70.9 No past medical history on file. Diet: BMT Admit Weight: 67.4 kg Estimated body mass index is 26.86 kg/(m^2) as calculated from the following: Height as of this encounter: 159 cm (5' 2.6). Weight as of this encounter: 67.9 kg (149 lb 11.1 oz). Labs: Lab Results Component Value Date NA 137 12/18/2014 K 4.3 12/18/2014 CL 102 12/18/2014 CO2 26 12/18/2014 BUN 23* 12/18/2014 CREATININE 0.97 12/18/2014 GLUCOSE 116 12/18/2014 MAGNESIUM 0.61* 12/18/2014 CALCIUM 8.8 12/18/2014 PHOS 3.3 12/18/2014 AST 28 12/17/2014 ALT 39* 12/17/2014 ALKPHOS 93 12/17/2014 BILITOT 0.4 12/17/2014 BILIDIR 0.1 12/17/2014 Medications: Nexiumm Mg-sulfate, compazine, caphosol, Aloxi A: Pt seen re BMT diet order. Pt very sleepy, did not eat any meals so far today. She has some dry cereal she want to try and hopes for better appetite tomorrow. Pt has been on BMT diet precautions before and is familiar with the restrictions. I reviewed the basics and she denied any further questions. She also denies the need for snacks or supplements at this time. Provided BMT diet handout withcontact information. Encouraged pt to contact Food and Nutrition services with any questions that may arise. P: Continue current diet order Provide pt preferences as able Nutrition to follow throughout hospital stay [address] * Larisa Hoskins RN - 12/18/2014 2:42 PM EST Office of Care Management Conche Operator RN Initial Note Reviewed record and discussed pt with Gordo Kemp and Alonzo Maria for inpt heme-onc team; and at interdisciplinary discharge rounds. Did not interview pt today. For more complete information on pt's supports/resources, see pre-transplant Psycho-Social Assessment, in Telephone Note in Ambulatory Notes by Alonzo LYMAN, encounter date 10/11/2014, file date 10/17/2014. Reason for admission:64 y.o. female presents for admission for autologous stem cell transplant for her refractory diffuse large B cell lymphoma. 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 Srinivasan Hoskins RN Case Avionics System Engineer of Care Management pgr [phone] and [phone] * Justin Foote MD - 12/18/2014 8:58 AM EST 1 [place] Inpatient Hematology/Oncology/SCT Progress Note Patient info: Patient Name: Myraim De Souza : 1950 Service: Hematology - GUEST SERVICE MANAGER Responsible Attending: Dr. Foote Date of Admission: 12/17/2014 ( Hospital Day 1 day ) Service: 1 [place] Nurse Practitioner Services Interval history: Myriam De Souza is a 64 y.o. female with diffuse large B cell lymphoma who is admitted for autologous stem cell transplant. She is day -5. Received BCNU last evening and reported restless legs, headaches, nausea. Slept poorly. Oxycodone was helpful with her pain and Ativan / Zofran for the nausea. This morning she continues to c/o a headache 5/10; mostly frontal. Has some residual nausea but making an effort to eat breakfast and drink fluids. No fevers or other complaints overnight. Hospital Problem List: Patient Active Problem List Diagnosis Code ??? Lymphoma C85.90 ??? Depression with anxiety F41.8 ??? Hypokalemia E87.6 ??? Hypomagnesemia E83.42 ??? Neutropenia D70.9 Antimicrobials: Acyclovir 800 bid Fluconazole 200 mg bid - begin on day 0 Keflex 500 mg qid - begin on day 0 ( allergy to Levaquin ) Chemotherapy/Transplant Meds: # Chemotherapy - CBV Conditioning Regimen prior to autologous stem cell transplant -Carmustine 15mg/kg (dose to be given 825 mg) IV x1 on day -6 (12/17/14) over 2 hours -Day -5 (12/18/14): Rest day -Etoposide 60/mg/kg (dose to be given 3,300 mg) IV x1 on day -4 (12/19/14) over 4 hours -Day -3 (12/20/14): Rest day -Cyclophosphamide 100mg/kg (dose to be given 5,500 mg) IV x1 on day -2 (12/21/14) over 2 hours -Mesna 120mg/kg (dose to be given 3,990 mg) IV x1 dose on day -2 (12/21 ) over 24 hours -Day -1 (12/22/14) Rest day -Day 0 (12/24/14) -Stem Cell Transplant -Days 1-14 (12/17-12/28/14) -Awaiting Count Recovery # Antiemetics: -Zofran 16mg IV or PO beginning on day -6 and ongoing until day -3 -Palonsoetron 0.25 IV push on day -2 one hour prior to cyclophosphamide -Lorazepam 0.5mg PO/IV every 6 hours scheduled nausea/anxiety. May repeat once in 30 minutes if prior dose ineffective. -Aprepitant 125mg PO prior to cyclophosphamide on day -2, then aprepitant 80 mg PO daily on day -1. -Zofran 8mg PO/IV every 8 hours as needed beginning on day +1 # Pre-Medications: -Benadryl 25mg IV 30 minutes prior to etoposide and repeat 2 hours into the infusion. -Hydrocortisone 80mg IV 30 minutes prior to etoposide and repeat 2 hours into the infusion. # Chemotherapy Hydration: - for day -6 (carmustine hydration): give 0.9% NS IV @ 250ml/hr x4 hours before carmustine. Hold during carmustine. Restart @ 250ml for 2 hours after carmustine. - for day -4 (etoposide hydration): concurrent with etoposide run IV 0.9% NS IV @ 1,000mg/hr x 4 hours. Post etoposide, run 0.9% NS at 500ml/hr for 30 minutes, then at 250ml/hr for 30 minutes, then at 125ml/hr for 3 hours then stop. - for day -2 (cyclophosphamide hydration): give 0.9% NS IV @ 250ml/hr starting one hour prior to cyclophosphamide and continuing for at least 6 hours after completion of the cyclophosphamide. # FEN: - Lasix 20mg IV once 4 hours after completing etoposide as needed dyspnea only. Hold if SBP is lessthan 110. - Lasix 20mg IV once daily PRN wt greater than 1 kg above admit baseline - Lasix 20mg for wt greater than 1 kg over 12 hours or input exceeding output by greater than 1000ml per 12 hours. Hold if SBP is less than 90mmHg prior to Lasix administration. -Magnesium and potassium repletion per SOP. # Infection Prophylaxis: - If HSV positive: acyclovir 800mg PO BID on admit or Acyclovir 500mg IV every 12 hours if unable to take by mouth. - Keflex 500 mg QID po daily starting Day 0 -Fluconazole 400mg po daily starting Day 0 - Bactrim DS one table PO once daily from admission until and including day -2. Discontinue after day -2 dose given. - On day +30 start Bactrim DS one table once daily. #Nursing Care -Strict I/O -Caphosol 30mL four times a day -Neutropenic precautions and diet. -Weight BID -Incentive spirometry every 2 hours. -Rectal, oral, skin care per SOP Pain meds: Oxycodone 5 mg po Q 6 hours prn Access Lines: -Left chest mediport site is CDI with no signs of infection. CURRENT MEDS: ??? ondansetron 16 mg Oral Q12H ??? [START ON 12/19/2014] diphenhydrAMINE 25 mg Intravenous Once ??? [START ON 12/19/2014] diphenhydrAMINE 25 mg Intravenous Once ??? [START ON 12/19/2014] hydrocortisone 1 mg/kg/dose (Treatment Plan Actual) Intravenous Once ??? [START ON 12/19/2014] hydrocortisone 1 mg/kg/dose (Treatment Plan Actual) Intravenous Once ??? [START ON 12/21/2014] palonosetron 0.25 mg Intravenous Once ??? [START ON 12/21/2014] aprepitant 125 mg Oral Once ??? [START ON 12/22/2014] aprepitant 80 mg Oral Daily ??? esomeprazole 40 mg Oral Daily ??? supersaturated calcium phosphate 30 mL Oral 4 Times Daily ??? cephalexin 500 mg Oral 4 Times Daily ??? [START ON 12/23/2014] fluconazole 400 mg Oral Daily ??? acyclovir 800 mg Oral BID ??? [START ON 12/19/2014] etoposide 60 mg/kg/dose (Treatment Plan Adjusted) Intravenous Once ??? [START ON 12/21/2014] mesna (MESNEX) infusion 60 mg/kg/dose (Treatment Plan Actual) Intravenous Q12H ??? [START ON 12/21/2014] cyclophosphamide (CYTOXAN) chemo infusion 100 mg/kg/dose (Treatment Plan Adjusted) Intravenous Once ??? [START ON 12/23/2014] acetaminophen 650 mg Oral Once ??? [START ON 12/23/2014] diphenhydrAMINE 50 mg Oral Once ??? [START ON 12/28/2014] filgrastim 480 mcg Subcutaneous Daily ??? docusate sodium 100 mg Oral BID ??? escitalopram oxalate 10 mg Oral Daily ??? LORazepam 0.5 mg Oral Q6H ??? senna 8.6 mg Oral Daily ??? sodium chloride 0.9 % 5 mL Intravenous BID ??? enoxaparin 40 mg Subcutaneous Daily VITALS: Last value Range last 24 hrs Temperature Temp: 36.7 ??C (98.1 ??F) Temp: [35.9 ??C (96.6 ??F)-37 ??C (98.6 ??F)] Heart Rate Heart Rate: 97 Heart Rate: [71-99] Blood Pressure BP: 116/72 mmHg BP: (105-132)/(52-91) Respiratory Rate Resp: 18 Resp: [8-19] SpO2 SpO2: 98 % SpO2: [97 %-100 %] Intake/Output Summary (Last 24 hours) at 12/18/14 0901 Last data filed at 12/18/14 0647 Gross per 24 hour Intake 2214 ml Output 1525 ml Net 689 ml Patient Vitals for the past 168 hrs: Weight 12/18/14 0328 68 kg (149 lb 14.6 oz) 12/17/14 1400 67.4 kg (148 lb 9.4 oz) Admit wt:67.4 kg Change in weight to today: Weight change: 0.6kg increase PHYSICAL EXAM: Constitutional: Appears fatigued but in good spirits. HEENT: EOMI, PERRL. Oropharynx is clear and moist. No oropharyngeal lesions or exudate. Neck: Normal range of motion. Neck supple. No masses. Cardiovascular: RRR. No murmur or rubs heard. Normal pulses. Pulmonary/Chest: Clear to auscultation bilaterally, no wheezes or crackles, breathing symmetrical with no retractions or accessory muscle use. Abdomen: Soft, non-tender, non-distended. Bowel sounds are normal. Exam negative for adenopathy andhepatosplenomegaly. Lymphadenopathy: No adenopathy Neurological: Alert and oriented to person, place, and time. Skin: Skin is warm and dry. No obvious rashes, ecchymosis, lesions or petechiae. Psychiatric: Normal mood and affect. Labs: Recent Labs 12/17/14 1400 WBC 5.4 HGB 8.7* HCT 24.6* PLATELET 165 NEUTROABS 3.74 Recent Labs 12/18/14 0330 12/17/14 1105 NA 137 141 K 4.3 4.2 CL 102 102 CO2 26 27 BUN 23* 24* CREATININE 0.97 1.06 GLUCOSE 116 143 Recent Labs 12/18/14 0330 12/17/14 1105 CALCIUM 8.8 9.5 MAGNESIUM 0.61* -- PHOS 3.3 -- Recent Labs 12/17/14 1105 AST 28 ALT 39* ALKPHOS 93 BILITOT 0.4 BILIDIR 0.1 No results for input(s): INR, PT, PTT in the last 72 hours. Recent Labs 12/17/14 1105 LDH 203 URICACID 4.0 Tumor Lysis Labs: Recent Labs 12/18/14 0330 12/17/14 1105 URICACID -- 4.0 PHOS 3.3 -- K 4.3 4.2 Microbiology: Urine culture --> contaminant Will repeat Pertinent radiology/diagnostic studies: None at current time. ASSESSMENT: Myriam De Souza is a 64 y.o. female admitted for autologous stem cell transplant for her diffuse large b cell lymphoma. Received BCNU last evening and has had some lingering nausea and a low-grade headache; both have improved since this morning. Received a 500 cc bolus in the afternoon which she felt was helpful. Slept most of day. Ambulating to the bathroom frequently. No focal signs of infection. Due for Etoposide tomorrow. Will try Ambien tonight. PLAN: # Auto transplant Carmustine last evening Rest day today Etoposide tomorrow # Nausea Will order scheduled Zofran 16 mg to help with nausea Ativan 0.5 mg q 6 hours Ringer's lactate 500 cc bolus x 1 today # Headache Oxycodone 5 mg prn as ordered Mag sulfate replacement today Improved in afternoon #Anxiety Ativan as ordered #Insomnia Will try Ambien 5 mg po q hs; discussed with Myriam and she is in agreement to try. #Constipation Risk for constipation with Oxycodone and Zofran Will continue with routine bowel orders. No BM today. #Electrolytes Hypomagnesium Will give 4 gm IV Mag Sulfate today CODE STATUS: Full code DIET: Regluar ACTIVITY: Walk 1 mile per day DVT Prophylaxis: Lovenox 40 mg daily Michelle Kemp APRN [address] Hematology/Oncology Nurse Practitioner Services Hematology/BMT Inpatient Shared Visit Staff Addendum: I have participated in this shared medical visit via interview and examination of the patient, review of all pertinent clinical, laboratory and radiographic data and discussion of the case on rounds with the Hematology/BMT Inpatient SPACER TYPE BAR AND SEGMENT Team today. I agree with the findings, assessment and plan asoutlined in today's SPACER TYPE BAR AND SEGMENT note, with any changes or add'l comments included below. 64 year old woman with primary refractory DLBCL admitted on 12/17 for high-dose CBV therapy and APSCT. She is overall clinically well, with recent neg PET/CT after initial R-CHOP followed by salvage DHAP therapy. Tolerated BCNU infusion overnight with usual effects, and both nausea and headache are improved over course of the day today. Wt mildly net positive relative to pre-adm'n baseline, and amador continue to follow this parameter closely. Updated Plan: 1. IVF bolus and anti-emetic therapy today to minimize residual BCNU effects. 2. Urine cx s/p suggestive UTI is c/w contaminant. No current indication for therapeutic atbx. 3. Close monitoring of wt/volume status as per transplant routine. 4. Due for Etoposide on 12/19 with Cytoxan on 12/21 and stem cell reinfusion scheduled for 12/23. This patient meets criteria for inpatient level of care due to the above medical complexity. RODOLFO Foote MD Heme/Onc Section * Lizzette De La Cruz RN - 12/17/2014 7:34 PM EST Pt admitted to [facility] for Auto SCT with CBV conditioning for DLBCL. Hydration started at 1800. Pt with baseline anxiety- Q6 scheduled. Pt settled into room. educated on plan. * Justin Foote MD - 12/17/2014 6:14 PM EST Hematology/BMT Inpatient Shared Visit Staff Note: I have participated in this shared medical visit via interview and examination of the patient, review of all pertinent clinical, laboratory and radiographic data and discussion of the case on rounds with the Hematology/BMT Inpatient SPACER TYPE BAR AND SEGMENT Team today. I agree with the findings, assessment and plan asoutlined in today's SPACER TYPE BAR AND SEGMENT admit note, with any changes or add'l comments included below. 64 year old woman with primary refractory DLBCL now being admitted for high-dose CBV therapy and APSCT. She is overall clinically well, with recent neg PET/CT after initial R-CHOP followed by salvageDHAP therapy. I have reviewed the rationale, details and potential side effects of the CBV regimen with Myriam andher daughter, and all questions were addressed. She wishes to proceed today. Updated Plan: 1. Proceed with admission for HD chemo (CBV) and APSCT. 2. Anticipate add'n of antibiotics, pending C+S results from abNL urine today. Urinalysis suggests UTI. 3. Close monitoring of wt/volume status as per transplant routine. 4. SC reinfusion scheduled for 11/9. This patient meets criteria for inpatient level of care due to the above medical complexity. RODOLFO Foote MD Heme/Onc Section * Justo Michelle GuerraJOHNN - 12/17/2014 9:38 AM EST 1 [place] Hematology/Oncology Admission History and Physical Patient Name: Myriam De Souza Patient : 1950 Service: Hematology - GUEST SERVICE MANAGER Responsible Attending: Dr. Foote PCP: SOPHY FUNES PCP phone #: [phone] Chief Complaint: Myriam De Souza is a 64 y.o. female presents for admission for autologous stem cell transplant for her refractory diffuse large B cell lymphoma. She is admitted in a CR. History of Present Illness: PET with stage III A disease. BMBx [...] was not informative according to the Bassem insert operator, but the strong BCL2 expression in the absence of MUM1 suggests a germinal center origin via the Muris insert operator. Lymphoma TB discussion 10/01/14 Recommendations for salvage chemotherapy and autologous stem cell transplant. C#1 RDHAP 10/09/14 With stem cell collection C#2 RDHAP 11/04/14 PET scan negative! 11/25/14 ! Treatment Plan: Autologous stem cell transplant - CBV ( Cytoxan, Carmustine, and Etoposide ) Subjective: Myriam presents to the inpatient service today for admission for an autologous stem celltransplant. She states she feels well and is ready for therapy. She is accompanied by her daughter.She describes difficulty sleeping which is a long-standing issue. No trouble falling asleep but wakes up around 3 am to eat and then has difficulty falling back to sleep. She takes either Benadryl orAtivan. Melatonin gives her a headache. She has not tried any prescription pain medications. Myriam has chronic issues with constipation which has been prevalent since diagnosis. She takes a generic laxative and 3 colace daily and if that does not work, she will add Miralax. She has chronic but improving left and right shoulder pain and left groin pain felt to be caused byLevaquin. The pain has improved since stopping the Levaquin. It has been replaced by Keflex. She took an Ibuprofen this morning and last evening. Denies any use of Tylenol. Vitals: Last value Range last 24 hrs Temperature Temp: 36.6 ??C (97.9 ??F) Temp: [35.9 ??C (96.6 ??F)-36.6 ??C (97.9 ??F)] Heart Rate Heart Rate: [71-89] Blood Pressure BP: 120/70 mmHg BP: (105-137)/(52-91) Respiratory Rate Resp: 16 Resp: [8-19] SpO2 SpO2: 99 % SpO2: [97 %-100 %] Admission Weight: Review of Systems: Constitutional: Energy 08/23. Is independent with ADLs. HEENT: No ARVIZU, rhinitis, nasal congestion, sore throat or mouth sores. Resp: No SOB, HAUSER, cough, or chest tightness. CV: No chest pain or palpitations. No LE edema. Abd: No abd pain, + heartburn w/ some foods. No N/V/D. LBM today. Has chronic issues with constipation: : Denies dysuria, urgency, frequency. Musculoskeletal: + joint pain of right and left shoulder and left groin. Neuro: No neuropathy, weakness, gait imbalance, lightheadedness or dizziness. none Heme: No easy bruising or bleeding. Skin: No rash. Psych: Mood stable. No confusion or memory problems.+ anxiety Uses Ativan ATC for anxiety Pain: see MSK. Other: no additional findings. Problem List/Past Medical History Patient Active Problem List Diagnosis ??? Depression with anxiety ??? Hypokalemia ??? Hypomagnesemia ??? Neutropenia ??? Lymphoma 2015 Left Axillary [...] was not informative according to the Bassem insert operator, but the strong BCL2 expression in the absence of MUM1 suggests a germinal center origin via the Muris insert operator. Lymphoma TB discussion 10/01/14 Recommendations for salvage chemotherapy and autologous stem cell transplant. C#1 RDHAP 10/09/14 With stem cell collection C#2 RDHAP 11/04/14 PET scan negative! 11/25/14 ! Meds: Prior to Admission medications Medication Sig Start [...] 1 tablet by mouth daily. PROVIDER, HISTORICAL Buford-3 Fatty Acids-Vitamin E (FISH OIL) 1,000 mg [...] Comments) Unsure if actual allergy, please try [id number] Skin tears/rawness Family History: No family history on file. Social History: History Substance Use Topics ??? Smoking status: Never Smoker ??? Smokeless tobacco: Never Used ??? Alcohol Use: 1.2 oz/week 2 Glasses of wine per week History Social History Narrative Living situation: Lives by herself in an apartment. Seeing a gentleman friend now. Daughter in [place] and another daughter in [facility]. Supportive friend group. 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 Living situation: [place], [place] Lots of support. Will go to boyfriend's home after she is discharged then has a friend who will stay with her at her home. She has friends who will clean her home prior to her return. 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 Currently not working but hopes to return. Examination: Constitutional: Appears well-developed and well-nourished. No distress. HEENT: EOMI, PERRL. Oropharynx is clear and moist. No oropharyngeal lesions or exudate. Neck: Normal range of motion. Neck supple. No masses. Cardiovascular: RRR. No murmur or rubs heard. Normal pulses. Pulmonary/Chest: Clear to auscultation bilaterally, no wheezes or crackles, breathing symmetrical with no retractions or accessory muscle use. Abdomen: Soft, non-tender, non-distended. Bowel sounds are normal. Exam negative for adenopathy andhepatosplenomegaly. Musculoskeletal: Decreased ROM in shoulders bilaterally. Right > left Neurological: Alert and oriented to person, place, and time. Skin: Skin is warm and dry. No obvious rashes, ecchymosis, lesions or petechiae. Left chest wall tunneled central line site dressing clean, dry and intact. Psychiatric: Normal mood and affect. Access Lines: Left chest mediport Left site is CDI with no evidence of infection. Laboratory: Recent Labs 12/17/14 1400 WBC 5.4 HGB 8.7* HCT 24.6* PLATELET 165 NEUTROABS 3.74 Recent Labs 12/17/14 1105 NA 141 K 4.2 CL 102 CO2 27 BUN 24* CREATININE 1.06 Recent Labs 12/17/14 1105 AST 28 ALT 39* ALKPHOS 93 BILITOT 0.4 BILIDIR 0.1 Recent Labs 12/17/14 1105 CALCIUM 9.5 No results for input(s): PT, PTT, FIBRINOGEN, DDIMER in the last 168 hours. Invalid input(s): THROMBIN TIME Recent Labs 12/17/14 1105 LDH 203 URICACID 4.0 Microbiology: C&S pending Relevant Diagnostic Studies: None at current time ASSESSMENT: Myriam De Souza is a 64 y.o. 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 Does verbalize some anxiety and asks for ATC Ativan to help control it. Her daughter is here and she has a lot of support at home. Will admit to GUEST SERVICE MANAGER/ Dr. Fooet's service. Myriam reports all of her questions have been answered with regard to the chemotherapy and side effects. She verbalizes having read all material related to transplant given to her in the clinic. CODE STATUS: Full code ADVANCE DIRECTIVES: Yes DIET: Regular ACTIVITY: Ambulate TID, Goal of 1 mile daily. DVT Prophylaxis: Lovenox 40 mg daily Disposition: Stable and ready for admission Michelle Kemp APRN [facility] Hematology/Oncology-[address] [place] [phone] Pager: [phone] documented in this encounter Miscellaneous Notes * Plan of Care - Erika Swanson RN - 01/05/2015 4:19 PM EST Problem: General Plan of Care Goal: Plan of Care Review Outcome: Outcome (s) achieved Date Met: 01/05/15 01/05/15 1612 Coping/Psychosocial Response Interventions Plan of Care Reviewed with patient Plan of Care Review Plan of Care Outcome Status outcome achieved Progress progress toward functional goals as expected OUTCOME EVALUATION NOTE: OUTCOME SUMMARY: 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 Magnesium and Potassium replaced per protocol. Single lumen port deaccessed per protocol. Improved PO intake today. Discharge AVS, discharge instructions, medications, and follow-up care reviewed with patient. No further questions at this time. Pt discharged to home with no services. PLAN MOVING FORWARD: Discharge to home with no services. Follow-up appointment on 01/07 at 0830. INDIVIDUALIZED FALL PREVENTION: Assistance: None. Supervision: Independent. Surveillance: Declined masimo; aware of risks and benefits. Hourly rounding performed. CPG GOAL OUTCOME EVALUATION: Goal: Fall Prevention-Safe Patient Handling Outcome: Outcome (s) achieved Date Met: 01/05/15 12/21/14 0800 01/05/15 0855 Musculoskeletal Interventions Activity/Level of Assistance up in room;with stand by assist -- Positioning independent -- Muscle Strengthening -- activity/mobility promoted;mobility in bed promoted;up in chair encouraged for meals and activities Self-Care Promotion -- personal routines for BADL/IADL promoted Safety Interventions Safety Precautions/Fall Reduction -- environmental modification;fall reduction program maintained;lighting adjusted for task/safety;low bed;nonskid shoes/slippers when out of bed;room near unit station Garza Fall Risk History of Falling -- 0 Secondary Diagnosis -- 15 Ambulatory Aids -- 0 Intravenous Therapy/Heparin/Saline Lock -- 20 Gait/Transferring -- 0 Mental Status -- 0 Score -- 35 OTHER Garza Fall Risk -- Med Goal: Infection Control Outcome: Unable to achieve outcome by discharge 01/05/15 0855 Coping/Psychosocial Response Interventions Counseling calming techniques promoted;emotional support provided;problem solving facilitated;reassurance provided;relaxation techniques promoted;understanding of situation facilitated;verbalization of feelings encouraged Safety Interventions Isolation Precautions neutropenic precautions maintained Infection Prevention environmental surveillance;hydration promoted;nutrition promoted;promote handwashing;rest/sleep promoted Problem: Chemotherapy Effects (Adult) Goal: Signs and symptoms of listed potential problems will be absent or manageable (reference (Chemotherapy Effects (Adult)) CPG) Outcome: Unable to achieve outcome by discharge 01/05/15 1612 Chemotherapy Effects Problems Present (Chemotherapy Effects) altered nutrition;fatigue Problem: Skin Integrity Impairment, Risk/Actual (Adult, Obstetrics) Goal: Skin Integrity/Wound Healing Patient will demonstrate the desired outcomes. Outcome: Unable to achieve outcome by discharge 01/05/15 1612 Skin Integrity Impairment, Risk/Actual (Adult, Obstetrics) Skin Integrity/Wound Healing making progress toward outcome Problem: Pain, Acute (Adult, Obstetrics) Goal: Acceptable Pain Control/Comfort Level Patient will demonstrate the desired outcomes. Outcome: Outcome (s) achieved Date Met: 01/05/15 01/05/15 1612 Pain, Acute (Adult, Obstetrics) Acceptable Pain Control/Comfort Level achieves outcome * Plan of Care - Shanna Deleon RN - 01/04/2015 8:39 PM EST Problem: General Plan of Care Goal: Plan of Care Review Outcome: Ongoing (Interventions Implemented as Appropriate) 01/04/152022 Coping/Psychosocial Response Interventions Plan of Care Reviewed with patient Plan of Care Review Plan of Care Outcome Status ongoing (interventions implemented as appropriate) Progress progress toward functional goals as expected OUTCOME EVALUATION NOTE: OUTCOME SUMMARY: Patient with DLBCL, day +12 s/p autologous BMT with CBV conditioning; continues with poor po intake, encouraging po fluids. ANC > 10,000 today, neupogen held per orders, antibiotic, antiviral and antifungal discontinued. Patient without complaints today. Per Dr. Darden will change scheduled ativan to Q 8 hrs to help decrease fatigue and enable more activity. SBP soft 94-96, asymptomatic. BMT di scharge instructions reviewed at length with patient today, all questions were answered; will be staying with significant other at d/c for 1 week. PLAN MOVING FORWARD: Plan for discharge tomorrow 01/05 Monitor for s/s of infection Encourage po intake and out of bed activity INDIVIDUALIZED FALL PREVENTION: Assistance: none Supervision: independent Surveillance: Hourly rounding CPG GOAL OUTCOME EVALUATION: Goal: Individualization and Mutuality Outcome: Ongoing (Interventions Implemented as Appropriate) Goal: Fall Prevention-Safe Patient Handling Outcome: Ongoing (Interventions Implemented as Appropriate) 01/04/15901 Musculoskeletal Interventions Muscle Strengthening activity/mobility promoted;personal routines for BADL/IADL promoted;up in chair encouraged for meals and activities Self-Care Promotion independence encouraged while providing assistance;personal routines for BADL/IADL promoted Safety Interventions Safety Precautions/Fall Reduction fall reduction program maintained;lighting adjusted for task/safety;nonskid shoes/slippers when out of bed;muscle strengthening facilitated;room near unit station Garza Fall Risk History of Falling 0 Secondary Diagnosis 15 Ambulatory Aids 0 Intravenous Therapy/Heparin/Saline Lock 0 Gait/Transferring 0 Mental Status 0 Score 15 OTHER Garza Fall Risk Low Goal: Infection Control Outcome: Ongoing (Interventions Implemented as Appropriate) 01/04/15901 Coping/Psychosocial Response Interventions Counseling emotional support provided;verbalization of feelings encouraged;understanding of situation facilitated;goal setting facilitated Safety Interventions Isolation Precautions neutropenic precautions maintained Infection Prevention bronchial hygiene promoted;environmental surveillance;hydration promoted;nutrition promoted;promote handwashing;rest/sleep promoted Goal: Discharge Needs Assessment Outcome: Ongoing (Interventions Implemented as Appropriate) 01/04/152022 Living Environment Transportation Available family or friend will provide Discharge Needs Assessment Equipment Needed After Discharge none Self-Care Equipment Currently Used at Home none BMT specific discharge instructions reviewed thoroughly with patient today, 45 mins spent in teaching. Patient will be staying with her significant other for a about a week after discharge. There is concern about the wood stove heat and house plants; patient contacting significant other to instructto remove house plants from patients main living areas. There is an alternative heat source in the house that they will be using, will discuss wood stove with MD. All questions were answers and phonenumbers were provided for questions that arise after D/C. Problem: Chemotherapy Effects (Adult) Goal: Signs and symptoms of listed potential problems will be absent or manageable (reference (Chemotherapy Effects (Adult)) CPG) Outcome: Ongoing (Interventions Implemented as Appropriate) 01/04/152022 Chemotherapy Effects Problems Assessed (Chemotherapy Effects) all Problems Present (Chemotherapy Effects) altered nutrition;anemia;fatigue;thrombocytopenia Problem: Skin Integrity Impairment, Risk/Actual (Adult, Obstetrics) Goal: Skin Integrity/Wound Healing Patient will demonstrate the desired outcomes. Outcome: Ongoing (Interventions Implemented as Appropriate) 01/04/152022 Skin Integrity Impairment, Risk/Actual (Adult, Obstetrics) Skin Integrity/Wound Healing making progress toward outcome Problem: Pain, Acute (Adult, Obstetrics) Goal: Acceptable Pain Control/Comfort Level Patient will demonstrate the desired outcomes. Outcome: Ongoing (Interventions Implemented as Appropriate) 01/04/152022 Pain, Acute (Adult, Obstetrics) Acceptable Pain Control/Comfort Level achieves outcome * Plan of Care - Yahaira Villagran RN - 01/04/2015 6:26 AM EST Problem: General Plan of Care Goal: Plan of Care Review Outcome: Ongoing (Interventions Implemented as Appropriate) 01/03/15202001/03/152034 Coping/Psychosocial Response Interventions Plan of Care Reviewed with -- patient Plan of Care Review Plan of Care Outcome Status ongoing (interventions implemented as appropriate) -- Progress progress toward functional goals as expected -- OUTCOME EVALUATION NOTE: OUTCOME SUMMARY: Day +11/+12 Auto with CBV conditioning for DLBCL.Slightly improved PO intake. 2 gm magnesium Administered per protocol;1L IV fluids started for poor PO intake. mucocitis improving - refused pain medication. PLAN MOVING FORWARD: Continue with replacements as needed per transplant protocol. Monitor for s/s of infection. INDIVIDUALIZED FALL PREVENTION: Assistance: None. Supervision: Stand-by assist. Surveillance: Declined masimo; aware of risks and benefits. Hourly rounding performed. CPG GOAL OUTCOME EVALUATION: Goal: Individualization and Mutuality Outcome: Ongoing (Interventions Implemented as Appropriate) 12/17/142033 Mutuality/Individual Preferences What anxieties, fears or concerns do you have about your health or care? see comment (trusting that staff will help her through this process) What questions do you have about your health or care? see comment (not at this time, will ask as they arise) What information would help us give you more personalized care? see coment (humor helps) Goal: Fall Prevention-Safe Patient Handling Outcome: Ongoing (Interventions Implemented as Appropriate) 12/21/14 0800 01/03/15 1058 01/03/152034 Musculoskeletal Interventions Activity/Level of Assistance up in room;with stand by assist -- -- Positioning independent -- -- Muscle Strengthening -- activity/mobility promoted;mobility in bed promoted;up in chair encouraged for meals and activities -- Self-Care Promotion -- independence encouraged while providing assistance;personal routines for BADL/IADL promoted -- Safety Interventions Safety Precautions/Fall Reduction -- -- fall reduction program maintained;low bed;lighting adjustedfor task/safety;nonskid shoes/slippers when out of bed;food safety manager Garza Fall Risk History of Falling -- -- 0 Secondary Diagnosis -- -- 15 Ambulatory Aids -- -- 0 Intravenous Therapy/Heparin/Saline Lock -- -- 20 Gait/Transferring -- -- 0 Mental Status -- -- 0 Score -- -- 35 OTHER Garza Fall Risk -- -- Med Goal: Infection Control Outcome: Ongoing (Interventions Implemented as Appropriate) 01/03/152034 Coping/Psychosocial Response Interventions Counseling emotional support provided Safety Interventions Isolation Precautions standard precautions maintained;neutropenic precautions maintained Infection Prevention rest/sleep promoted;promote handwashing;nutrition promoted;hydration promoted;environmental surveillance;bronchial hygiene promoted Goal: Discharge Needs Assessment Outcome: Ongoing (Interventions Implemented as Appropriate) 12/18/14 0406 12/26/14 1730 Living Environment Transportation Available -- car;family or friend will provide Discharge Needs Assessment Concerns to be Addressed -- no discharge needs identified Equipment Needed After Discharge none -- Discharge Planning Comments will be staying with a friend at discharge for about a week for support-- Self-Care Equipment Currently Used at Home -- none Current Health Anticipated Changes Related to Illness -- none Problem: Chemotherapy Effects (Adult) Goal: Signs and symptoms of listed potential problems will be absent or manageable (reference (Chemotherapy Effects (Adult)) CPG) Outcome: Ongoing (Interventions Implemented as Appropriate) 01/03/152020 Chemotherapy Effects Problems Assessed (Chemotherapy Effects) all Problems Present (Chemotherapy Effects) altered nutrition;anemia;fatigue;neutropenia;thrombocytopenia Problem: Skin Integrity Impairment, Risk/Actual (Adult, Obstetrics) Goal: Skin Integrity/Wound Healing Patient will demonstrate the desired outcomes. Outcome: Ongoing (Interventions Implemented as Appropriate) 01/03/152020 Skin Integrity Impairment, Risk/Actual (Adult, Obstetrics) Skin Integrity/Wound Healing making progress toward outcome Problem: Pain, Acute (Adult, Obstetrics) Goal: Acceptable Pain Control/Comfort Level Patient will demonstrate the desired outcomes. Outcome: Ongoing (Interventions Implemented as Appropriate) 01/03/152020 Pain, Acute (Adult, Obstetrics) Acceptable Pain Control/Comfort Level achieves outcome * Plan of Care - Erika Swanson RN - 01/03/2015 8:26 PM EST Problem: General Plan of Care Goal: Plan of Care Review Outcome: Ongoing (Interventions Implemented as Appropriate) 01/03/152020 Coping/Psychosocial Response Interventions Plan of Care Reviewed with patient Plan of Care Review Plan of Care Outcome Status ongoing (interventions implemented as appropriate) Progress progress toward functional goals as expected OUTCOME EVALUATION NOTE: OUTCOME SUMMARY: Day +11 Auto with CBV conditioning for DLBCL. Pt ambulated x2 this shift. Slightly improved PO intake. Potassium replaced per protocol. 1 bag of magnesium replacements administered; oncoming RN awareto hang second bag. 1L IV fluids started for poor PO intake. Improved hemorrhoid and mucositis discomfort; continues with hemorrhoid cream when needed post BMs. Pt showered this shift. PLAN MOVING FORWARD: Continue with replacements as needed per transplant protocol. Monitor for s/s of infection. INDIVIDUALIZED FALL PREVENTION: Assistance: None. Supervision: Stand-by assist. Surveillance: Declined masimo; aware of risks and benefits. Hourly rounding performed. CPG GOAL OUTCOME EVALUATION: Goal: Fall Prevention-Safe Patient Handling Outcome: Ongoing (Interventions Implemented as Appropriate) 12/21/14 0801/03/15 1058 Musculoskeletal Interventions Activity/Level of Assistance up in room;with stand by assist -- Positioning independent -- Muscle Strengthening -- activity/mobility promoted;mobility in bed promoted;up in chair encouraged for meals and activities Self-Care Promotion -- independence encouraged while providing assistance;personal routines for BADL/IADL promoted Safety Interventions Safety Precautions/Fall Reduction -- environmental modification;fall reduction program maintained;lighting adjusted for task/safety;low bed;family at bedside;nonskid shoes/slippers when out of bed;room near unit station Garza Fall Risk History of Falling -- 0 Secondary Diagnosis -- 15 Ambulatory Aids -- 0 Intravenous Therapy/Heparin/Saline Lock -- 20 Gait/Transferring -- 0 Mental Status -- 0 Score -- 35 OTHER Garza Fall Risk -- Med Goal: Infection Control Outcome: Ongoing (Interventions Implemented as Appropriate) 01/03/15 1058 Coping/Psychosocial Response Interventions Counseling calming techniques promoted;emotional support provided;problem solving facilitated;reassurance provided;relaxation techniques promoted;understanding of situation facilitated;verbalization of feelings encouraged Safety Interventions Isolation Precautions neutropenic precautions maintained Infection Prevention environmental surveillance;hydration promoted;nutrition promoted;promote handwashing;rest/sleep promoted Problem: Chemotherapy Effects (Adult) Goal: Signs and symptoms of listed potential problems will be absent or manageable (reference (Chemotherapy Effects (Adult)) CPG) Outcome: Ongoing (Interventions Implemented as Appropriate) 01/03/152020 Chemotherapy Effects Problems Assessed (Chemotherapy Effects) all Problems Present (Chemotherapy Effects) altered nutrition;anemia;fatigue;neutropenia;thrombocytopenia Problem: Skin Integrity Impairment, Risk/Actual (Adult, Obstetrics) Goal: Skin Integrity/Wound Healing Patient will demonstrate the desired outcomes. Outcome: Ongoing (Interventions Implemented as Appropriate) 01/03/152020 Skin Integrity Impairment, Risk/Actual (Adult, Obstetrics) Skin Integrity/Wound Healing making progress toward outcome Problem: Pain, Acute (Adult, Obstetrics) Goal: Acceptable Pain Control/Comfort Level Patient will demonstrate the desired outcomes. Outcome: Ongoing (Interventions Implemented as Appropriate) 01/03/152020 Pain, Acute (Adult, Obstetrics) Acceptable Pain Control/Comfort Level achieves outcome * Plan of Care - Justine Elena RN - 01/03/2015 5:03 AM EST Problem: General Plan of Care Goal: Plan of Care Review Outcome: Ongoing (Interventions Implemented as Appropriate) 01/03/15457 Coping/Psychosocial Response Interventions Plan of Care Reviewed with patient Plan of Care Review Plan of Care Outcome Status ongoing (interventions implemented as appropriate) Progress progress toward functional goals as expected OUTCOME EVALUATION NOTE: OUTCOME SUMMARY: Patient is day +10 / +11 from Auto SCT for DLBCL with CBV conditioning. ANC up to 390 this AM. Mucositis/esophagitis continues however patient reports improvement. Continues to use BMX with relief. Patient continues with decreased intake completed 2nd liter of LR at 200cc/hr this evening. Weight remains below baseline. Afebrile overnight. Hemorrhoids continue to give patient discomfort; cleansed after each BM with hydrocortisone cream or Z-guard applied. K+ 3.9 & Magnesium 0.54 this am, replacements started per protocol. PLAN MOVING FORWARD: -Ongoing assessments and interventions as appropriate -Monitor pain, medicate prn -Replacements per protocol -Central line needle change due INDIVIDUALIZED FALL PREVENTION: Assistance: None Supervision: SBA Surveillance: Purposeful Hourly Rounding; Fall Precautions Maintained Goal: Individualization and Mutuality Outcome: Ongoing (Interventions Implemented as Appropriate) Goal: Fall Prevention-Safe Patient Handling Outcome: Ongoing (Interventions Implemented as Appropriate) 01/02/152035 Musculoskeletal Interventions Muscle Strengthening activity/mobility promoted;mobility in bed promoted Safety Interventions Safety Precautions/Fall Reduction environmental modification;fall reduction program maintained;lighting adjusted for task/safety;nonskid shoes/slippers when out of bed Garza Fall Risk History of Falling 0 Secondary Diagnosis 15 Ambulatory Aids 0 Intravenous Therapy/Heparin/Saline Lock 20 Gait/Transferring 0 Mental Status 0 Score 35 OTHER Garza Fall Risk Med Goal: Infection Control Outcome: Ongoing (Interventions Implemented as Appropriate) 01/02/152035 Safety Interventions Isolation Precautions neutropenic precautions maintained Infection Prevention bronchial hygiene promoted;environmental surveillance;hydration promoted;nutrition promoted;promote handwashing;rest/sleep promoted Goal: Discharge Needs Assessment Outcome: Ongoing (Interventions Implemented as Appropriate) Problem: Chemotherapy Effects (Adult) Goal: Signs and symptoms of listed potential problems will be absent or manageable (reference (Chemotherapy Effects (Adult)) CPG) Outcome: Ongoing (Interventions Implemented as Appropriate) 11/20/15 0458 Chemotherapy Effects Problems Assessed (Chemotherapy Effects) all Problems Present (Chemotherapy Effects) altered nutrition;anemia;fatigue;mucositis;neutropenia;thrombocytopenia Problem: Skin Integrity Impairment, Risk/Actual (Adult, Obstetrics) Goal: Skin Integrity/Wound Healing Patient will demonstrate the desired outcomes. Outcome: Ongoing (Interventions Implemented as Appropriate) 01/03/15 0458 Skin Integrity Impairment, Risk/Actual (Adult, Obstetrics) Skin Integrity/Wound Healing making progress toward outcome Problem: Pain, Acute (Adult, Obstetrics) Goal: Acceptable Pain Control/Comfort Level Patient will demonstrate the desired outcomes. Outcome: Ongoing (Interventions Implemented as Appropriate) 01/03/158 Pain, Acute (Adult, Obstetrics) Acceptable Pain Control/Comfort Level achieves outcome * Plan of Care - Lakesha Gil RN - 01/02/2015 4:53 PM EST Problem: General Plan of Care Goal: Plan of Care Review Outcome: Ongoing (Interventions Implemented as Appropriate) 01/02/15 1636 Coping/Psychosocial Response Interventions Plan of Care Reviewed with patient Plan of Care Review Plan of Care Outcome Status ongoing (interventions implemented as appropriate) Progress progress toward functional goals as expected OUTCOME EVALUATION NOTE: OUTCOME SUMMARY: Patient is day +10 from Auto SCT for DLBCL with CBV conditioning. ANC up to 390 this AM. Mucositis/esophagitis continues however patient reports improvement throughout shift. Continues to use BMX andreceived oxycodone 5mg x 1 PO with relief noted. Potassium replaced per protocol. Patient continueswith decreased intake and received 2L of LR at 200cc/hr. Weight remains below baseline. Afebrile Tmax 37.2. Hemorrhoids continue to give patient discomfort; utilized sitz bath this shift and has hydrocortisone cream for after each BM. Patient had one loose incontinent stool this evening - received immodium x 1. Patient very fatigued this shift but did tolerate 1 lap around unit. PLAN MOVING FORWARD: [place] treatment plan per protocol. Symptom management. Encourage eating, drinking, ambulation. INDIVIDUALIZED FALL PREVENTION: Assistance: Stand-by Supervision: Stand by when OOB Surveillance: Purposeful hourly rounding. Fall precautions maintained. CPG GOAL OUTCOME EVALUATION: Goal: Individualization and Mutuality Outcome: Ongoing (Interventions Implemented as Appropriate) Goal: Fall Prevention-Safe Patient Handling Outcome: Ongoing (Interventions Implemented as Appropriate) 12/21/14 0801/01/15 0801/01/152004 Musculoskeletal Interventions Activity/Level of Assistance up in room;with stand by assist -- -- Positioning independent -- -- Muscle Strengthening -- -- -- Self-Care Promotion -- personal routines for BADL/IADL promoted;personal/BADL objects within reach -- Safety Interventions Safety Precautions/Fall Reduction -- -- -- Garza Fall Risk History of Falling -- -- -- Secondary Diagnosis -- -- -- Ambulatory Aids -- -- -- Intravenous Therapy/Heparin/Saline Lock -- -- -- Gait/Transferring -- -- -- Mental Status -- -- -- Score -- -- -- OTHER Garza Fall Risk -- -- Med 01/02/1548 Musculoskeletal Interventions Activity/Level of Assistance -- Positioning -- Muscle Strengthening activity/mobility promoted Self-Care Promotion -- Safety Interventions Safety Precautions/Fall Reduction environmental modification;fall reduction program maintained;lighting adjusted for task/safety;low bed;room near unit station Garza Fall Risk History of Falling 0 Secondary Diagnosis 15 Ambulatory Aids 0 Intravenous Therapy/Heparin/Saline Lock 20 Gait/Transferring 0 Mental Status 0 Score 35 OTHER Garza Fall Risk -- Goal: Infection Control Outcome: Ongoing (Interventions Implemented as Appropriate) 01/01/1582901/01/152004 Coping/Psychosocial Response Interventions Counseling calming techniques promoted;emotional support provided;reassurance provided;relaxation techniques promoted;understanding of situation facilitated;verbalization of feelings encouraged -- Safety Interventions Isolation Precautions -- neutropenic precautions maintained Infection Prevention -- bronchial hygiene promoted;environmental surveillance;hydration promoted;nutrition promoted;promote handwashing;rest/sleep promoted Goal: Discharge Needs Assessment Outcome: Ongoing (Interventions Implemented as Appropriate) Problem: Chemotherapy Effects (Adult) Goal: Signs and symptoms of listed potential problems will be absent or manageable (reference (Chemotherapy Effects (Adult)) CPG) Outcome: Ongoing (Interventions Implemented as Appropriate) 01/02/15 1636 Chemotherapy Effects Problems Assessed (Chemotherapy Effects) all Problems Present (Chemotherapy Effects) altered nutrition;anemia;diarrhea;fatigue;mucositis;neutropenia;situational response;thrombocytopenia Problem: Skin Integrity Impairment, Risk/Actual (Adult, Obstetrics) Goal: Skin Integrity/Wound Healing Patient will demonstrate the desired outcomes. Outcome: Ongoing (Interventions Implemented as Appropriate) 01/02/15 1636 Skin Integrity Impairment, Risk/Actual (Adult, Obstetrics) Skin Integrity/Wound Healing making progress toward outcome Problem: Pain, Acute (Adult, Obstetrics) Goal: Acceptable Pain Control/Comfort Level Patient will demonstrate the desired outcomes. Outcome: Ongoing (Interventions Implemented as Appropriate) 01/02/15 1636 Pain, Acute (Adult, Obstetrics) Acceptable Pain Control/Comfort Level making progress toward outcome * Plan of Care - Justine Elena, LINDA - 01/02/2015 5:21 AM EST Problem: General Plan of Care Goal: Plan of Care Review Outcome: Ongoing (Interventions Implemented as Appropriate) 01/02/15 0451 Coping/Psychosocial Response Interventions Plan of Care Reviewed with patient Plan of Care Review Plan of Care Outcome Status ongoing (interventions implemented as appropriate) Progress progress toward functional goals as expected OUTCOME EVALUATION NOTE: OUTCOME SUMMARY: Patient day +9 / +10 of autologous SCT for DLBCL, conditioned with CBV. Mucositis/esophagitis continues. Tongue scalloped and a few lesions noted in oral mucosa. Patient utilizing BMX oral swishes throughout shift with some improvement.Taking sips of fluids this shift. Tmax 37.9 overnight. PLAN MOVING FORWARD: -Ongoing assessments and interventions as appropriate -Monitor pain, medicate prn INDIVIDUALIZED FALL PREVENTION: Assistance: None Supervision: Standby Assist Surveillance: Purposeful Hourly Rounding; Fall Precautions Maintained Goal: Individualization and Mutuality Outcome: Ongoing (Interventions Implemented as Appropriate) Goal: Fall Prevention-Safe Patient Handling Outcome: Ongoing (Interventions Implemented as Appropriate) 01/01/152004 Musculoskeletal Interventions Muscle Strengthening activity/mobility promoted;mobility in bed promoted Safety Interventions Safety Precautions/Fall Reduction environmental modification;fall reduction program maintained;lighting adjusted for task/safety;nonskid shoes/slippers when out of bed Garza Fall Risk History of Falling 0 Secondary Diagnosis 15 Ambulatory Aids 0 Intravenous Therapy/Heparin/Saline Lock 20 Gait/Transferring 0 Mental Status 0 Score 35 OTHER Garza Fall Risk Med Goal: Infection Control Outcome: Ongoing (Interventions Implemented as Appropriate) 01/01/152004 Safety Interventions Isolation Precautions neutropenic precautions maintained Infection Prevention bronchial hygiene promoted;environmental surveillance;hydration promoted;nutrition promoted;promote handwashing;rest/sleep promoted Goal: Discharge Needs Assessment Outcome: Ongoing (Interventions Implemented as Appropriate) Problem: Chemotherapy Effects (Adult) Goal: Signs and symptoms of listed potential problems will be absent or manageable (reference (Chemotherapy Effects (Adult)) CPG) Outcome: Ongoing (Interventions Implemented as Appropriate) 01/02/15 045 Chemotherapy Effects Problems Assessed (Chemotherapy Effects) all Problems Present (Chemotherapy Effects) altered nutrition;anemia;fatigue;mucositis;neutropenia;thrombocytopenia Problem: Skin Integrity Impairment, Risk/Actual (Adult, Obstetrics) Goal: Skin Integrity/Wound Healing Patient will demonstrate the desired outcomes. Outcome: Ongoing (Interventions Implemented as Appropriate) 01/02/15 045 Skin Integrity Impairment, Risk/Actual (Adult, Obstetrics) Skin Integrity/Wound Healing making progress toward outcome Problem: Pain, Acute (Adult, Obstetrics) Goal: Acceptable Pain Control/Comfort Level Patient will demonstrate the desired outcomes. Outcome: Ongoing (Interventions Implemented as Appropriate) 01/02/15450 Pain, Acute (Adult, Obstetrics) Acceptable Pain Control/Comfort Level making progress toward outcome * Plan of Care - Lakesha Gil RN - 01/01/2015 6:30 PM EST Problem: General Plan of Care Goal: Plan of Care Review Outcome: Ongoing (Interventions Implemented as Appropriate) 01/01/15 182 Coping/Psychosocial Response Interventions Plan of Care Reviewed with patient Plan of Care Review Plan of Care Outcome Status ongoing (interventions implemented as appropriate) Progress progress toward functional goals as expected OUTCOME EVALUATION NOTE: OUTCOME SUMMARY: Patient day +9 of autologous SCT for DLBCL, conditioned with CBV. Mucositis/esophagitis continues. Tongue scalloped and a few lesions noted in oral mucosa. Patient utilizing BMX oral swishes throughout shift and received oxycodone 5mg PO x 1 with improvement noted. Appetite continues to be poor alth ough trying small amounts of food each meal. Continues with small amount of loose bowel movements. Hemorrhoids biggest complaint - rating 8/10. LEATHER SCRAPER at bedside to assess at beginning of shift. Using tuck pads, hydrocortisone cream, z-guard. 1L LR infused per LEATHER SCRAPER order for poor intake. Mag and K+ replaced. VSS. Tmax 37.7. Very fatigued throughout shift - educated patient that counts should be coming in any day. Patient hopeful. Weight stable. PLAN MOVING FORWARD: Encourage PO intake. Ambulation. Transplant course per protocol. Await count recovery. Monitor closely for s/s of infection. INDIVIDUALIZED FALL PREVENTION: Assistance: None Supervision: Stand by assistance Surveillance: Purposeful hourly rounding. Fall precautions maintained. CPG GOAL OUTCOME EVALUATION: Goal: Individualization and Mutuality Outcome: Ongoing (Interventions Implemented as Appropriate) Goal: Fall Prevention-Safe Patient Handling Outcome: Ongoing (Interventions Implemented as Appropriate) 12/21/14 0800 01/01/15 0830 Musculoskeletal Interventions Activity/Level of Assistance up in room;with stand by assist -- Positioning independent -- Muscle Strengthening -- activity/mobility promoted;mobility in bed promoted;personal routines for BADL/IADL promoted Self-Care Promotion -- personal routines for BADL/IADL promoted;personal/BADL objects within reach Safety Interventions Safety Precautions/Fall Reduction -- environmental modification;fall reduction program maintained;lighting adjusted for task/safety;family at bedside;low bed;nonskid shoes/slippers when out of bed;room near unit station Garza Fall Risk History of Falling -- 0 Secondary Diagnosis -- 15 Ambulatory Aids -- 0 Intravenous Therapy/Heparin/Saline Lock -- 20 Gait/Transferring -- 0 Mental Status -- 0 Score -- 35 OTHER Garza Fall Risk -- Med Goal: Infection Control Outcome: Ongoing (Interventions Implemented as Appropriate) 01/01/15 0830 Coping/Psychosocial Response Interventions Counseling calming techniques promoted;emotional support provided;reassurance provided;relaxation techniques promoted;understanding of situation facilitated;verbalization of feelings encouraged Safety Interventions Isolation Precautions neutropenic precautions discontinued;standard precautions maintained Infection Prevention bronchial hygiene promoted;environmental surveillance;hydration promoted;nutrition promoted;promote handwashing;rest/sleep promoted Goal: Discharge Needs Assessment Outcome: Ongoing (Interventions Implemented as Appropriate) Problem: Chemotherapy Effects (Adult) Goal: Signs and symptoms of listed potential problems will be absent or manageable (reference (Chemotherapy Effects (Adult)) CPG) Outcome: Ongoing (Interventions Implemented as Appropriate) 01/01/15 1821 Chemotherapy Effects Problems Assessed (Chemotherapy Effects) all Problems Present (Chemotherapy Effects) altered nutrition;anemia;diarrhea;fatigue;mucositis;nausea and vomiting;neutropenia;situational response;thrombocytopenia Problem: Skin Integrity Impairment, Risk/Actual (Adult, Obstetrics) Goal: Skin Integrity/Wound Healing Patient will demonstrate the desired outcomes. Outcome: Ongoing (Interventions Implemented as Appropriate) 01/01/15 1821 Skin Integrity Impairment, Risk/Actual (Adult, Obstetrics) Skin Integrity/Wound Healing making progress toward outcome Problem: Pain, Acute (Adult, Obstetrics) Goal: Acceptable Pain Control/Comfort Level Patient will demonstrate the desired outcomes. Outcome: Ongoing (Interventions Implemented as Appropriate) 01/01/15 1821 Pain, Acute (Adult, Obstetrics) Acceptable Pain Control/Comfort Level making progress toward outcome * Plan of Care - Justin Guillen RN - 01/01/2015 5:27 AM EST Problem: General Plan of Care Goal: Plan of Care Review Outcome: Ongoing (Interventions Implemented as Appropriate) 01/01/15514 Coping/Psychosocial Response Interventions Plan of Care Reviewed with patient Plan of Care Review Plan of Care Outcome Status ongoing (interventions implemented as appropriate) Progress no change OUTCOME EVALUATION NOTE: OUTCOME SUMMARY: Slept ok. Continued throat pain, unchanged, some relief with BMX/oxycodone. Able to take meds, drink. Hemorrhoid pain improved, using pads and creams, doing good mary rectal care. PLAN MOVING FORWARD: Monitor labs, vital signs, fluid status. Monitor stools. Pain control. Continue self care activities, ambulation, intake as tolerated. Awaiting count recovery. INDIVIDUALIZED FALL PREVENTION: Assistance: Up independently, a little fatigued. Medium risk to fall score. Reviewed risk to fall with pt. Supervision: Independent. Surveillance: Purposeful hourly rounding. CPG GOAL OUTCOME EVALUATION: Goal: Infection Control Outcome: Ongoing (Interventions Implemented as Appropriate) 12/31/14200012/31/14212301/01/15514 Coping/Psychosocial Response Interventions Counseling -- -- reassurance provided;understanding of situation facilitated;verbalization of feelings encouraged Safety Interventions Isolation Precautions -- neutropenic precautions maintained -- Infection Prevention bronchial hygiene promoted;hydration promoted;nutrition promoted;promote handwashing;rest/sleep promoted -- -- Problem: Chemotherapy Effects (Adult) Goal: Signs and symptoms of listed potential problems will be absent or manageable (reference (Chemotherapy Effects (Adult)) CPG) Outcome: Ongoing (Interventions Implemented as Appropriate) 01/01/15514 Chemotherapy Effects Problems Assessed (Chemotherapy Effects) altered nutrition;anemia;diarrhea;fatigue;hemorrhagic cystitis;mucositis;nausea and vomiting;neurotoxicity;neutropenia;thrombocytopenia Problems Present (Chemotherapy Effects) altered nutrition;anemia;diarrhea;fatigue;mucositis;nausea and vomiting;neutropenia;thrombocytopenia Problem: Skin Integrity Impairment, Risk/Actual (Adult, Obstetrics) Goal: Skin Integrity/Wound Healing Patient will demonstrate the desired outcomes. Outcome: Ongoing (Interventions Implemented as Appropriate) 01/01/15 0515 Skin Integrity Impairment, Risk/Actual (Adult, Obstetrics) Skin Integrity/Wound Healing making progress toward outcome Problem: Pain, Acute (Adult, Obstetrics) Goal: Acceptable Pain Control/Comfort Level Patient will demonstrate the desired outcomes. Outcome: Ongoing (Interventions Implemented as Appropriate) 01/01/15 05 Pain, Acute (Adult, Obstetrics) Acceptable Pain Control/Comfort Level making progress toward outcome * Plan of Care - Lavinia Almanzar RN - 12/31/2014 5:31 PM EST Problem: General Plan of Care Goal: Plan of Care Review Outcome: Ongoing (Interventions Implemented as Appropriate) 12/31/14 05 Coping/Psychosocial Response Interventions Plan of Care Reviewed with patient Plan of Care Review Plan of Care Outcome Status ongoing (interventions implemented as appropriate) Progress no change OUTCOME EVALUATION NOTE: OUTCOME SUMMARY: VSS. Hg 6.5; 1 unit PRBC administered as ordered. Poor PO intake overall. Weight below baseline. 1 liter LR administered. Potassium replaced per sliding scale. BMX given for mucositis pain. Cdiff negative. Imodium given x1. Hemorrhoid pain continues; soft white wipes and lotion cleanser given to patient; patient discourages from using toilet paper as it is rough; tucks pads utilized. PLAN MOVING FORWARD: 1 liter of LR to be administered as per APR. Continue transplant protocol. Continue supportive nursing care. INDIVIDUALIZED FALL PREVENTION: Assistance: SBA Supervision: Eyes on Surveillance: Hourly roundingpaul CPG GOAL OUTCOME EVALUATION: Goal: Fall Prevention-Safe Patient Handling Outcome: Ongoing (Interventions Implemented as Appropriate) 12/21/14 0800 12/30/14 0930 12/31/14 0737 Musculoskeletal Interventions Activity/Level of Assistance up in room;with stand by assist -- -- Positioning independent -- -- Muscle Strengthening -- -- activity/mobility promoted;up in chair encouraged for meals and activities;personal routines for BADL/IADL promoted Self-Care Promotion -- independence encouraged while providing assistance -- Safety Interventions Safety Precautions/Fall Reduction -- -- lighting adjusted for task/safety;low bed;nonskid shoes/slippers when out of bed;chemotherapeutic agent precautions;environmental modification Garza Fall Risk History of Falling -- -- 0 Secondary Diagnosis -- -- 15 Ambulatory Aids -- -- 0 Intravenous Therapy/Heparin/Saline Lock -- -- 20 Gait/Transferring -- -- 0 Mental Status -- -- 0 Score -- -- 35 OTHER Garza Fall Risk -- -- Med Goal: Infection Control Outcome: Ongoing (Interventions Implemented as Appropriate) 12/30/14 2100 12/31/1452212/31/14 0737 Coping/Psychosocial Response Interventions Counseling -- verbalization of feelings encouraged;reassurance provided;understanding of situation facilitated -- Safety Interventions Isolation Precautions -- -- contact precautions maintained Infection Prevention bronchial hygiene promoted;hydration promoted;nutrition promoted;promote handwashing;rest/sleep promoted -- -- Problem: Chemotherapy Effects (Adult) Goal: Signs and symptoms of listed potential problems will be absent or manageable (reference (Chemotherapy Effects (Adult)) CPG) Outcome: Ongoing (Interventions Implemented as Appropriate) 12/31/14 1659 Chemotherapy Effects Problems Assessed (Chemotherapy Effects) all Problems Present (Chemotherapy Effects) altered nutrition;anemia;diarrhea;fatigue;mucositis;nausea and vomiting;neutropenia;thrombocytopenia Problem: Skin Integrity Impairment, Risk/Actual (Adult, Obstetrics) Goal: Skin Integrity/Wound Healing Patient will demonstrate the desired outcomes. Outcome: Ongoing (Interventions Implemented as Appropriate) 12/31/14 05 Skin Integrity Impairment, Risk/Actual (Adult, Obstetrics) Skin Integrity/Wound Healing making progress toward outcome Problem: Pain, Acute (Adult, Obstetrics) Goal: Acceptable Pain Control/Comfort Level Patient will demonstrate the desired outcomes. Outcome: Ongoing (Interventions Implemented as Appropriate) 12/31/14 05 Pain, Acute (Adult, Obstetrics) Acceptable Pain Control/Comfort Level making progress toward outcome * Plan of Care - Justin Guillen RN - 12/31/2014 5:34 AM EST Problem: General Plan of Care Goal: Plan of Care Review Outcome: Ongoing (Interventions Implemented as Appropriate) 12/31/14522 Coping/Psychosocial Response Interventions Plan of Care Reviewed with patient Plan of Care Review Plan of Care Outcome Status ongoing (interventions implemented as appropriate) Progress no change OUTCOME EVALUATION NOTE: OUTCOME SUMMARY: Slept ok. Fatigued. A few very small soft to loose stools this shift. C/o hemmorhoids and throat pain. Doing good mary rectal care, given witch regi pads, using creams. BMX helping throat pain, but usually 4-5/10. Able to drink a little and take meds. PLAN MOVING FORWARD: Monitor labs, vital signs. Await count recovery. Ambulate. Continue self care activities. Continue good oral and mary rectal care. Consider sitz baths. Have GUEST SERVICE MANAGER examine mary rectal area. Monitor pain control. Intake as tolerated - monitor fluid/electrolyte status. INDIVIDUALIZED FALL PREVENTION: Assistance: Pt up independently, steady on her feet. Discussed risk to fall. Medium risk to fall score. Supervision: independent Surveillance: Purposeful hourly rounding. CPG GOAL OUTCOME EVALUATION: Goal: Infection Control Outcome: Ongoing (Interventions Implemented as Appropriate) 12/30/14 2100 12/31/14522 Coping/Psychosocial Response Interventions Counseling -- verbalization of feelings encouraged;reassurance provided;understanding of situation facilitated Safety Interventions Isolation Precautions neutropenic precautions maintained -- Infection Prevention bronchial hygiene promoted;hydration promoted;nutrition promoted;promote handwashing;rest/sleep promoted -- Problem: Chemotherapy Effects (Adult) Goal: Signs and symptoms of listed potential problems will be absent or manageable (reference (Chemotherapy Effects (Adult)) CPG) Outcome: Ongoing (Interventions Implemented as Appropriate) 12/31/14522 Chemotherapy Effects Problems Assessed (Chemotherapy Effects) altered nutrition;anemia;diarrhea;fatigue;mucositis;nauseaand vomiting;neutropenia;thrombocytopenia Problems Present (Chemotherapy Effects) altered nutrition;anemia;diarrhea;fatigue;mucositis;nausea and vomiting;neutropenia;thrombocytopenia Problem: Skin Integrity Impairment, Risk/Actual (Adult, Obstetrics) Goal: Skin Integrity/Wound Healing Patient will demonstrate the desired outcomes. Outcome: Ongoing (Interventions Implemented as Appropriate) 12/31/14522 Skin Integrity Impairment, Risk/Actual (Adult, Obstetrics) Skin Integrity/Wound Healing making progress toward outcome Problem: Pain, Acute (Adult, Obstetrics) Goal: Acceptable Pain Control/Comfort Level Patient will demonstrate the desired outcomes. Outcome: Ongoing (Interventions Implemented as Appropriate) 12/31/14 0523 Pain, Acute (Adult, Obstetrics) Acceptable Pain Control/Comfort Level making progress toward outcome * Plan of Care - Dali Bah RN - 12/30/2014 7:06 PM EST Problem: General Plan of Care Goal: Plan of Care Review Outcome: Ongoing (Interventions Implemented as Appropriate) 12/30/14 1853 Coping/Psychosocial Response Interventions Plan of Care Reviewed with patient Plan of Care Review Plan of Care Outcome Status ongoing (interventions implemented as appropriate) Progress progress toward functional goals is gradual OUTCOME EVALUATION NOTE: OUTCOME SUMMARY: Pt day +7 of autologous SCT for DLBCL, conditioned with CBV. Still reporting throat discomfort, especially with po intake. BMX scheduled Q2hrs, pt reports some relief. Appetite poor, only ate small bites of soup. Moved bowels x1 today, incontinent and loose. Contact precautions initiated and c-diffsample sent, awaiting results. 1L LR infused per LEATHER SCRAPER order. Mag replaced. Rash on abdomen improved. Vitals stable, Tmax 37.5 PLAN MOVING FORWARD: Continue per transplant protocol. Encourage PO intake and activity out of bed. INDIVIDUALIZED FALL PREVENTION: Assistance: None Supervision: Independent Surveillance: Purposeful hourly rounding CPG OUTCOME EVALUATION: Goal: Individualization and Mutuality Outcome: Ongoing (Interventions Implemented as Appropriate) 12/17/142033 Mutuality/Individual Preferences What anxieties, fears or concerns do you have about your health or care? see comment (trusting that staff will help her through this process) What questions do you have about your health or care? see comment (not at this time, will ask as they arise) What information would help us give you more personalized care? see coment (humor helps) Goal: Fall Prevention-Safe Patient Handling Outcome: Ongoing (Interventions Implemented as Appropriate) 12/21/14 0800 12/30/14 0930 Musculoskeletal Interventions Activity/Level of Assistance up in room;with stand by assist -- Positioning independent -- Muscle Strengthening -- activity/mobility promoted;personal routines for BADL/IADL promoted Self-Care Promotion -- independence encouraged while providing assistance Safety Interventions Safety Precautions/Fall Reduction -- fall reduction program maintained;low bed;nonskid shoes/slippers when out of bed Garza Fall Risk History of Falling -- 0 Secondary Diagnosis -- 15 Ambulatory Aids -- 0 Intravenous Therapy/Heparin/Saline Lock -- 20 Gait/Transferring -- 0 Mental Status -- 0 Score -- 35 OTHER Garza Fall Risk -- Med Goal: Infection Control Outcome: Ongoing (Interventions Implemented as Appropriate) 12/30/14 0930 Coping/Psychosocial Response Interventions Counseling emotional support provided;reassurance provided Safety Interventions Isolation Precautions neutropenic precautions maintained;standard precautions maintained Infection Prevention bronchial hygiene promoted;environmental surveillance;hydration promoted;nutrition promoted;promote handwashing;rest/sleep promoted Goal: Discharge Needs Assessment Outcome: Ongoing (Interventions Implemented as Appropriate) 12/18/14 0406 12/26/14 1730 Living Environment Transportation Available -- car;family or friend will provide Discharge Needs Assessment Concerns to be Addressed -- no discharge needs identified Equipment Needed After Discharge none -- Discharge Planning Comments will be staying with a friend at discharge for about a week for support-- Self-Care Equipment Currently Used at Home -- none Current Health Anticipated Changes Related to Illness -- none Problem: Chemotherapy Effects (Adult) Goal: Signs and symptoms of listed potential problems will be absent or manageable (reference (Chemotherapy Effects (Adult)) CPG) Outcome: Ongoing (Interventions Implemented as Appropriate) 12/30/14 1705 12/30/14 185 Chemotherapy Effects Problems Assessed (Chemotherapy Effects) -- all Problems Present (Chemotherapy Effects) altered nutrition;anemia;diarrhea;fatigue;mucositis;nausea and vomiting;neutropenia;thrombocytopenia -- Problem: Skin Integrity Impairment, Risk/Actual (Adult, Obstetrics) Goal: Skin Integrity/Wound Healing Patient will demonstrate the desired outcomes. Outcome: Ongoing (Interventions Implemented as Appropriate) 12/30/141852 Skin Integrity Impairment, Risk/Actual (Adult, Obstetrics) Skin Integrity/Wound Healing making progress toward outcome Problem: Pain, Acute (Adult, Obstetrics) Goal: Acceptable Pain Control/Comfort Level Patient will demonstrate the desired outcomes. Outcome: Ongoing (Interventions Implemented as Appropriate) 12/30/141852 Pain, Acute (Adult, Obstetrics) Acceptable Pain Control/Comfort Level making progress toward outcome * Plan of Care - Yahaira Villagran RN - 12/30/2014 6:23 AM EST Problem: General Plan of Care Goal: Plan of Care Review Outcome: Ongoing (Interventions Implemented as Appropriate) 12/29/14 1837 12/29/142114 Coping/Psychosocial Response Interventions Plan of Care Reviewed with -- patient Plan of Care Review Plan of Care Outcome Status ongoing (interventions implemented as appropriate) -- Progress progress toward functional goals is gradual -- OUTCOME EVALUATION NOTE: Patient Day +6/+7auto SCT for DLBCL, conditioned with CBV. Patient's throat continues to be sore, no lesions seen in mouth. Oxycodone and BMX given for throat pain. PLAN MOVING FORWARD: Continue per transplant protocol. Continue to use BMX and Oxycodone for throat pain. Switch to IV meds if esophagitis gets worse. INDIVIDUALIZED FALL PREVENTION: Assistance: none Supervision: independent Surveillance: hourly rounding CPG GOAL OUTCOME EVALUATION: Goal: Individualization and Mutuality Outcome: Ongoing (Interventions Implemented as Appropriate) 12/17/142033 Mutuality/Individual Preferences What anxieties, fears or concerns do you have about your health or care? see comment (trusting that staff will help her through this process) What questions do you have about your health or care? see comment (not at this time, will ask as they arise) What information would help us give you more personalized care? see coment (humor helps) Goal: Fall Prevention-Safe Patient Handling Outcome: Ongoing (Interventions Implemented as Appropriate) 12/21/14 0800 12/27/14 0844 12/29/14 0806 Musculoskeletal Interventions Activity/Level of Assistance up in room;with stand by assist -- -- Positioning independent -- -- Muscle Strengthening -- activity/mobility promoted;mobility in bed promoted;personal routines for BADL/IADL promoted -- Self-Care Promotion -- -- personal routines for BADL/IADL promoted Safety Interventions Safety Precautions/Fall Reduction -- -- -- Garza Fall Risk History of Falling -- -- -- Secondary Diagnosis -- -- -- Ambulatory Aids -- -- -- Intravenous Therapy/Heparin/Saline Lock -- -- -- Gait/Transferring -- -- -- Mental Status -- -- -- Score -- -- -- OTHER Garza Fall Risk -- -- -- 12/29/142114 Musculoskeletal Interventions Activity/Level of Assistance -- Positioning -- Muscle Strengthening -- Self-Care Promotion -- Safety Interventions Safety Precautions/Fall Reduction bed alarm Garza Fall Risk History of Falling 0 Secondary Diagnosis 15 Ambulatory Aids 0 Intravenous Therapy/Heparin/Saline Lock 20 Gait/Transferring 0 Mental Status 0 Score 35 OTHER Garza Fall Risk Med Goal: Infection Control Outcome: Ongoing (Interventions Implemented as Appropriate) 12/29/142114 Coping/Psychosocial Response Interventions Counseling emotional support provided Safety Interventions Isolation Precautions standard precautions maintained;neutropenic precautions maintained Infection Prevention bronchial hygiene promoted;environmental surveillance;hydration promoted;nutrition promoted;promote handwashing;rest/sleep promoted Goal: Discharge Needs Assessment Outcome: Ongoing (Interventions Implemented as Appropriate) 12/18/14 0406 12/26/14 1730 Living Environment Transportation Available -- car;family or friend will provide Discharge Needs Assessment Concerns to be Addressed -- no discharge needs identified Equipment Needed After Discharge none -- Discharge Planning Comments will be staying with a friend at discharge for about a week for support-- Self-Care Equipment Currently Used at Home -- none Current Health Anticipated Changes Related to Illness -- none Problem: Chemotherapy Effects (Adult) Goal: Signs and symptoms of listed potential problems will be absent or manageable (reference (Chemotherapy Effects (Adult)) CPG) Outcome: Ongoing (Interventions Implemented as Appropriate) 12/27/14 1631 Chemotherapy Effects Problems Assessed (Chemotherapy Effects) all Problems Present (Chemotherapy Effects) altered nutrition;fatigue;neutropenia;thrombocytopenia Problem: Skin Integrity Impairment, Risk/Actual (Adult, Obstetrics) Goal: Skin Integrity/Wound Healing Patient will demonstrate the desired outcomes. Outcome: Ongoing (Interventions Implemented as Appropriate) 12/27/14 163 Skin Integrity Impairment, Risk/Actual (Adult, Obstetrics) Skin Integrity/Wound Healing making progress toward outcome Problem: Pain, Acute (Adult, Obstetrics) Goal: Acceptable Pain Control/Comfort Level Patient will demonstrate the desired outcomes. Outcome: Ongoing (Interventions Implemented as Appropriate) 12/24/142006 Pain, Acute (Adult, Obstetrics) Acceptable Pain Control/Comfort Level making progress toward outcome * Plan of Care - Jessy Gaxiola RN - 12/29/2014 6:55 PM EST Problem: General Plan of Care Goal: Plan of Care Review Outcome: Ongoing (Interventions Implemented as Appropriate) 12/29/14 1837 Coping/Psychosocial Response Interventions Plan of Care Reviewed with patient Plan of Care Review Plan of Care Outcome Status ongoing (interventions implemented as appropriate) Progress progress toward functional goals is gradual OUTCOME EVALUATION NOTE: OUTCOME SUMMARY: Patient 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 Patient's throat continues to be sore, no lesions seen in mouth. Oxycodone and BMX given for throat pain. Acyclovir switched to liquid. Post platelet count 23. PLAN MOVING FORWARD: Continue per transplant protocol. Continue to use BMX and Oxycodone for throat pain. Switch to IV meds if esophagitis gets worse. INDIVIDUALIZED FALL PREVENTION: Assistance: none Supervision: independent Surveillance: hourly rounding CPG GOAL OUTCOME EVALUATION: Goal: Individualization and Mutuality Outcome: Ongoing (Interventions Implemented as Appropriate) Goal: Fall Prevention-Safe Patient Handling Outcome: Ongoing (Interventions Implemented as Appropriate) 12/21/14 0812/27/14 0844 12/29/14 0806 Musculoskeletal Interventions Activity/Level of Assistance up in room;with stand by assist -- -- Positioning independent -- -- Muscle Strengthening -- activity/mobility promoted;mobility in bed promoted;personal routines for BADL/IADL promoted -- Self-Care Promotion -- -- personal routines for BADL/IADL promoted Safety Interventions Safety Precautions/Fall Reduction -- -- fall reduction program maintained;lighting adjusted for task/safety;low bed;nonskid shoes/slippers when out of bed Garza Fall Risk History of Falling -- -- 0 Secondary Diagnosis -- -- 15 Ambulatory Aids -- -- 0 Intravenous Therapy/Heparin/Saline Lock -- -- 20 Gait/Transferring -- -- 0 Mental Status -- -- 0 Score -- -- 35 OTHER Garza Fall Risk -- -- Med Goal: Infection Control Outcome: Ongoing (Interventions Implemented as Appropriate) 12/29/14 0806 Coping/Psychosocial Response Interventions Counseling emotional support provided;problem solving facilitated;reassurance provided;understanding of situation facilitated;verbalization of feelings encouraged Safety Interventions Isolation Precautions neutropenic precautions maintained Infection Prevention environmental surveillance;hydration promoted;nutrition promoted;promote handwashing;rest/sleep promoted Goal: Discharge Needs Assessment Outcome: Ongoing (Interventions Implemented as Appropriate) Problem: Chemotherapy Effects (Adult) Goal: Signs and symptoms of listed potential problems will be absent or manageable (reference (Chemotherapy Effects (Adult)) CPG) Outcome: Ongoing (Interventions Implemented as Appropriate) Problem: Skin Integrity Impairment, Risk/Actual (Adult, Obstetrics) Goal: Skin Integrity/Wound Healing Patient will demonstrate the desired outcomes. Outcome: Ongoing (Interventions Implemented as Appropriate) Problem: Pain, Acute (Adult, Obstetrics) Goal: Acceptable Pain Control/Comfort Level Patient will demonstrate the desired outcomes. Outcome: Ongoing (Interventions Implemented as Appropriate) * Plan of Care - Yahaira Villagran RN - 12/29/2014 6:11 AM EST Problem: General Plan of Care Goal: Plan of Care Review Outcome: Ongoing (Interventions Implemented as Appropriate) 12/28/141934 Coping/Psychosocial Response Interventions Plan of Care Reviewed with patient Plan of Care Review Plan of Care Outcome Status ongoing (interventions implemented as appropriate) Progress progress toward functional goals is gradual OUTCOME EVALUATION NOTE: OUTCOME SUMMARY: Patient Day +5/+6 roauto SCT for DLBCL Patient continues to have sore throat now requiring doses oxycodone r/t pain with difficulty swallowing' 12 hours of IV fluid coimpleted. Old central line site less reddened per patient; T. Max 37.6. Currently receiving platelets for plt count 4 .PLAN MOVING FORWARD: Continue per transplant protocol. Encourage PO intake. Use BMX prior to meds and meals. INDIVIDUALIZED FALL PREVENTION: Assistance: none Supervision: independent Surveillance: hourly rounding CPG GOAL OUTCOME EVALUATION: Goal: Individualization and Mutuality Outcome: Ongoing (Interventions Implemented as Appropriate) 12/17/142033 Mutuality/Individual Preferences What anxieties, fears or concerns do you have about your health or care? see comment (trusting that staff will help her through this process) What questions do you have about your health or care? see comment (not at this time, will ask as they arise) What information would help us give you more personalized care? see coment (humor helps) Goal: Fall Prevention-Safe Patient Handling Outcome: Ongoing (Interventions Implemented as Appropriate) 12/21/14 0800 12/27/14 0844 12/28/14 0830 Musculoskeletal Interventions Activity/Level of Assistance up in room;with stand by assist -- -- Positioning independent -- -- Muscle Strengthening -- activity/mobility promoted;mobility in bed promoted;personal routines for BADL/IADL promoted -- Self-Care Promotion -- -- personal routines for BADL/IADL promoted Safety Interventions Safety Precautions/Fall Reduction -- -- -- Garza Fall Risk History of Falling -- -- -- Secondary Diagnosis -- -- -- Ambulatory Aids -- -- -- Intravenous Therapy/Heparin/Saline Lock -- -- -- Gait/Transferring -- -- -- Mental Status -- -- -- Score -- -- -- OTHER Garza Fall Risk -- -- -- 12/28/141924 Musculoskeletal Interventions Activity/Level of Assistance -- Positioning -- Muscle Strengthening -- Self-Care Promotion -- Safety Interventions Safety Precautions/Fall Reduction fall reduction program maintained;nonskid shoes/slippers when outof bed Garza Fall Risk History of Falling 0 Secondary Diagnosis 15 Ambulatory Aids 0 Intravenous Therapy/Heparin/Saline Lock 20 Gait/Transferring 0 Mental Status 0 Score 35 OTHER Garza Fall Risk Med Goal: Infection Control Outcome: Ongoing (Interventions Implemented as Appropriate) 12/28/141924 Coping/Psychosocial Response Interventions Counseling emotional support provided Safety Interventions Isolation Precautions neutropenic precautions maintained;standard precautions maintained Infection Prevention bronchial hygiene promoted;environmental surveillance;hydration promoted;nutrition promoted;rest/sleep promoted;promote handwashing Goal: Discharge Needs Assessment Outcome: Ongoing (Interventions Implemented as Appropriate) 12/18/14 0406 12/26/14 1730 Living Environment Transportation Available -- car;family or friend will provide Discharge Needs Assessment Concerns to be Addressed -- no discharge needs identified Equipment Needed After Discharge none -- Discharge Planning Comments will be staying with a friend at discharge for about a week for support-- Self-Care Equipment Currently Used at Home -- none Current Health Anticipated Changes Related to Illness -- none Problem: Chemotherapy Effects (Adult) Goal: Signs and symptoms of listed potential problems will be absent or manageable (reference (Chemotherapy Effects (Adult)) CPG) Outcome: Ongoing (Interventions Implemented as Appropriate) 12/27/14 1631 Chemotherapy Effects Problems Assessed (Chemotherapy Effects) all Problems Present (Chemotherapy Effects) altered nutrition;fatigue;neutropenia;thrombocytopenia Problem: Skin Integrity Impairment, Risk/Actual (Adult, Obstetrics) Goal: Skin Integrity/Wound Healing Patient will demonstrate the desired outcomes. Outcome: Ongoing (Interventions Implemented as Appropriate) 12/27/14 1631 Skin Integrity Impairment, Risk/Actual (Adult, Obstetrics) Skin Integrity/Wound Healing making progress toward outcome Problem: Pain, Acute (Adult, Obstetrics) Goal: Acceptable Pain Control/Comfort Level Patient will demonstrate the desired outcomes. Outcome: Ongoing (Interventions Implemented as Appropriate) 12/24/142006 Pain, Acute (Adult, Obstetrics) Acceptable Pain Control/Comfort Level making progress toward outcome * Plan of Care - Jessy Gaxiola RN - 12/28/2014 7:43 PM EST Problem: General Plan of Care Goal: Plan of Care Review Outcome: Ongoing (Interventions Implemented as Appropriate) 12/28/14 1935 Coping/Psychosocial Response Interventions Plan of Care Reviewed with patient Plan of Care Review Plan of Care Outcome Status ongoing (interventions implemented as appropriate) Progress progress toward functional goals is gradual OUTCOME EVALUATION NOTE: OUTCOME SUMMARY: Patient Day +5 from auto SCT for DLBCL. Patient started Neupogen today. Mg repleted. Patient continues to have sore throat, ? start of esophagitis. BMX given x 2 prior to meds and food. IV fluids initiated this afternoon d/t poor PO intake (to continue for 12 hours). Old central line site less reddened per patient; area cleaned with chlorhexadine and bacitracin applied. PLAN MOVING FORWARD: Continue per transplant protocol. Encourage PO intake. Use BMX prior to meds and meals. INDIVIDUALIZED FALL PREVENTION: Assistance: none Supervision: independent Surveillance: hourly rounding CPG GOAL OUTCOME EVALUATION: Goal: Individualization and Mutuality Outcome: Ongoing (Interventions Implemented as Appropriate) Goal: Fall Prevention-Safe Patient Handling Outcome: Ongoing (Interventions Implemented as Appropriate) 12/21/14 0800 12/27/14 0844 12/28/14 0830 Musculoskeletal Interventions Activity/Level of Assistance up in room;with stand by assist -- -- Positioning independent -- -- Muscle Strengthening -- activity/mobility promoted;mobility in bed promoted;personal routines for BADL/IADL promoted -- Self-Care Promotion -- -- personal routines for BADL/IADL promoted Safety Interventions Safety Precautions/Fall Reduction -- -- fall reduction program maintained;family at bedside;lighting adjusted for task/safety;low bed;nonskid shoes/slippers when out of bed Garza Fall Risk History of Falling -- -- 0 Secondary Diagnosis -- -- 15 Ambulatory Aids -- -- 0 Intravenous Therapy/Heparin/Saline Lock -- -- 20 Gait/Transferring -- -- 0 Mental Status -- -- 0 Score -- -- 35 OTHER Garza Fall Risk -- -- Med Goal: Infection Control Outcome: Ongoing (Interventions Implemented as Appropriate) 12/28/14 0830 Coping/Psychosocial Response Interventions Counseling emotional support provided;problem solving facilitated;reassurance provided;understanding of situation facilitated;verbalization of feelings encouraged Safety Interventions Isolation Precautions neutropenic precautions maintained Infection Prevention environmental surveillance;hydration promoted;nutrition promoted;promote handwashing;rest/sleep promoted Goal: Discharge Needs Assessment Outcome: Ongoing (Interventions Implemented as Appropriate) Problem: Chemotherapy Effects (Adult) Goal: Signs and symptoms of listed potential problems will be absent or manageable (reference (Chemotherapy Effects (Adult)) CPG) Outcome: Ongoing (Interventions Implemented as Appropriate) Problem: Skin Integrity Impairment, Risk/Actual (Adult, Obstetrics) Goal: Skin Integrity/Wound Healing Patient will demonstrate the desired outcomes. Outcome: Ongoing (Interventions Implemented as Appropriate) * Plan of Care - Yahaira Villagran RN - 12/28/2014 3:29 AM EST Problem: General Plan of Care Goal: Plan of Care Review Outcome: Ongoing (Interventions Implemented as Appropriate) 12/27/14 1631 12/27/142020 Coping/Psychosocial Response Interventions Plan of Care Reviewed with -- patient Plan of Care Review Plan of Care Outcome Status ongoing (interventions implemented as appropriate) -- Progress improving -- OUTCOME EVALUATION NOTE: OUTCOME SUMMARY: Patient is day +4/+5 Auto SCT for DLBCL with CBV conditioning. Patient in good spirits this AM. Working on eating and drinking more. Denies any nausea/vomiting. Continues with diffuse red rash on abdomen. No pruritic and has sarna lotion available as needed.1 BM this shift PLAN MOVING FORWARD: Continue transplant course per protocol. Patient to start Neupogen tomorrow (12/28/14)on Day +5 to help with count recovery. Monitor for s/s of infection. INDIVIDUALIZED FALL PREVENTION: Assistance: None Supervision: Independent Surveillance: Purposeful hourly rounding. Fall precautions maintained. CPG GOAL OUTCOME EVALUATION: Goal: Individualization and Mutuality Outcome: Ongoing (Interventions Implemented as Appropriate) 12/17/142033 Mutuality/Individual Preferences What anxieties, fears or concerns do you have about your health or care? see comment (trusting that staff will help her through this process) What questions do you have about your health or care? see comment (not at this time, will ask as they arise) What information would help us give you more personalized care? see coment (humor helps) Goal: Fall Prevention-Safe Patient Handling Outcome: Ongoing (Interventions Implemented as Appropriate) 12/21/14 0800 12/27/14 0844 12/27/142020 Musculoskeletal Interventions Activity/Level of Assistance up in room;with stand by assist -- -- Positioning independent -- -- Muscle Strengthening -- activity/mobility promoted;mobility in bed promoted;personal routines for BADL/IADL promoted -- Self-Care Promotion -- personal routines for BADL/IADL promoted;personal/BADL objects within reach -- Safety Interventions Safety Precautions/Fall Reduction -- -- environmental modification;fall reduction program maintained;nonskid shoes/slippers when out of bed Garza Fall Risk History of Falling -- -- 0 Secondary Diagnosis -- -- 15 Ambulatory Aids -- -- 0 Intravenous Therapy/Heparin/Saline Lock -- -- 20 Gait/Transferring -- -- 0 Mental Status -- -- 0 Score -- -- 35 OTHER Garza Fall Risk -- -- Med Goal: Infection Control Outcome: Ongoing (Interventions Implemented as Appropriate) 12/27/142020 Coping/Psychosocial Response Interventions Counseling emotional support provided Safety Interventions Isolation Precautions neutropenic precautions maintained Infection Prevention bronchial hygiene promoted;environmental surveillance;hydration promoted;nutrition promoted;promote handwashing;rest/sleep promoted Goal: Discharge Needs Assessment Outcome: Ongoing (Interventions Implemented as Appropriate) 12/18/14 0406 12/26/14 1730 Living Environment Transportation Available -- car;family or friend will provide Discharge Needs Assessment Concerns to be Addressed -- no discharge needs identified Equipment Needed After Discharge none -- Discharge Planning Comments will be staying with a friend at discharge for about a week for support-- Self-Care Equipment Currently Used at Home -- none Current Health Anticipated Changes Related to Illness -- none Problem: Chemotherapy Effects (Adult) Goal: Signs and symptoms of listed potential problems will be absent or manageable (reference (Chemotherapy Effects (Adult)) CPG) Outcome: Ongoing (Interventions Implemented as Appropriate) 12/27/14 1631 Chemotherapy Effects Problems Assessed (Chemotherapy Effects) all Problems Present (Chemotherapy Effects) altered nutrition;fatigue;neutropenia;thrombocytopenia Problem: Skin Integrity Impairment, Risk/Actual (Adult, Obstetrics) Goal: Skin Integrity/Wound Healing Patient will demonstrate the desired outcomes. Outcome: Ongoing (Interventions Implemented as Appropriate) 12/27/14 1631 Skin Integrity Impairment, Risk/Actual (Adult, Obstetrics) Skin Integrity/Wound Healing making progress toward outcome * Plan of Care - Lakesha Gil RN - 12/27/2014 4:47 PM EST Problem: General Plan of Care Goal: Plan of Care Review Outcome: Ongoing (Interventions Implemented as Appropriate) 12/27/14 1631 Coping/Psychosocial Response Interventions Plan of Care Reviewed with patient;daughter Plan of Care Review Plan of Care Outcome Status ongoing (interventions implemented as appropriate) Progress improving OUTCOME EVALUATION NOTE: OUTCOME SUMMARY: Patient is day +4 from Auto SCT for DLBCL with CBV conditioning. Patient in good spirits this AM. Working on eating and drinking more. Denies any nausea/vomiting. Ambulating well around unit. Denies any lightheadedness or dizziness. VSS. Right mediport accessed this shift for post transplant infusions (patient will need multiple blood, platelet and electrolyte transfusions) also does not have good veins with multiple ecchymotic areas and a large hematoma on left arm from lab draw this AM. Receiving 1L of LR over 5 hours for decreased PO intake. Baseline weight 67.4kg. AM weight down to 64.2kg. PM weight 65kg. Patient's left tunneled line pulled yesterday 12/26. Site still slightly open withscab forming. Orders to clean area daily and apply bacitracin ointment with Band-Aid. Area cleansedwith chlorhexidine, bacitracin and Band-Aid applied. Patient denies any pain to site. Continues with diffuse red rash on abdomen. No pruritic and has sarna lotion available as needed. Patient with 3 BMs this shift - getting looser as the shift went on. PLAN MOVING FORWARD: Continue transplant course per protocol. Patient to start Neupogen tomorrow on Day +5 to help with count recovery. Monitor for s/s of infection. INDIVIDUALIZED FALL PREVENTION: Assistance: None Supervision: Independent Surveillance: Purposeful hourly rounding. Fall precautions maintained. CPG GOAL OUTCOME EVALUATION: Goal: Individualization and Mutuality Outcome: Ongoing (Interventions Implemented as Appropriate) Goal: Fall Prevention-Safe Patient Handling Outcome: Ongoing (Interventions Implemented as Appropriate) 12/21/14 0800 12/27/14 0844 Musculoskeletal Interventions Activity/Level of Assistance up in room;with stand by assist -- Positioning independent -- Muscle Strengthening -- activity/mobility promoted;mobility in bed promoted;personal routines for BADL/IADL promoted Self-Care Promotion -- personal routines for BADL/IADL promoted;personal/BADL objects within reach Safety Interventions Safety Precautions/Fall Reduction -- low bed;nonskid shoes/slippers when out of bed;room near unit station;environmental modification;fall reduction program maintained;family at bedside;lighting adjusted for task/safety Garza Fall Risk History of Falling -- 0 Secondary Diagnosis -- 15 Ambulatory Aids -- 0 Intravenous Therapy/Heparin/Saline Lock -- 20 Gait/Transferring -- 0 Mental Status -- 0 Score -- 35 OTHER Garza Fall Risk -- Med Goal: Infection Control Outcome: Ongoing (Interventions Implemented as Appropriate) 12/27/14 0844 Coping/Psychosocial Response Interventions Counseling calming techniques promoted;emotional support provided;reassurance provided;relaxation techniques promoted;understanding of situation facilitated;verbalization of feelings encouraged Safety Interventions Isolation Precautions neutropenic precautions maintained Infection Prevention bronchial hygiene promoted;hydration promoted;environmental surveillance;nutrition promoted;promote handwashing;rest/sleep promoted Goal: Discharge Needs Assessment Outcome: Ongoing (Interventions Implemented as Appropriate) Problem: Chemotherapy Effects (Adult) Goal: Signs and symptoms of listed potential problems will be absent or manageable (reference (Chemotherapy Effects (Adult)) CPG) Outcome: Ongoing (Interventions Implemented as Appropriate) 12/27/14 1631 Chemotherapy Effects Problems Assessed (Chemotherapy Effects) all Problems Present (Chemotherapy Effects) altered nutrition;fatigue;neutropenia;thrombocytopenia Problem: Skin Integrity Impairment, Risk/Actual (Adult, Obstetrics) Goal: Skin Integrity/Wound Healing Patient will demonstrate the desired outcomes. Outcome: Ongoing (Interventions Implemented as Appropriate) 12/27/14 1631 Skin Integrity Impairment, Risk/Actual (Adult, Obstetrics) Skin Integrity/Wound Healing making progress toward outcome * Plan of Care - Justin Guillen RN - 12/27/2014 4:51 AM EST Problem: General Plan of Care Goal: Plan of Care Review Outcome: Ongoing (Interventions Implemented as Appropriate) 12/26/14 2100 12/27/14446 Coping/Psychosocial Response Interventions Plan of Care Reviewed with patient;daughter -- Plan of Care Review Plan of Care Outcome Status -- ongoing (interventions implemented as appropriate) Progress -- no change OUTCOME EVALUATION NOTE: OUTCOME SUMMARY: Slept ok. Took a little more fluids overnight, but not much. Rash at abdomen resolving slowly. No new complaints. PLAN MOVING FORWARD: Monitor labs, vital signs. Continue self care activities, ambulation. Continue to encourage oral fluids and food as tolerated. Discuss fluid plan and access plan with team today. INDIVIDUALIZED FALL PREVENTION: Assistance: Pt steady on her feet, up independently, reliable. Medium risk to fall. Supervision: independent Surveillance: Purposeful hourly rounding. CPG GOAL OUTCOME EVALUATION: Goal: Infection Control Outcome: Ongoing (Interventions Implemented as Appropriate) 12/26/14209912/27/14446 Coping/Psychosocial Response Interventions Counseling -- verbalization of feelings encouraged;reassurance provided Safety Interventions Isolation Precautions neutropenic precautions maintained -- Infection Prevention -- bronchial hygiene promoted;hydration promoted;nutrition promoted;promote handwashing;rest/sleep promoted Problem: Chemotherapy Effects (Adult) Goal: Signs and symptoms of listed potential problems will be absent or manageable (reference (Chemotherapy Effects (Adult)) CPG) Outcome: Ongoing (Interventions Implemented as Appropriate) 12/27/14446 Chemotherapy Effects Problems Assessed (Chemotherapy Effects) altered nutrition;anemia;constipation;diarrhea;fatigue;hemorrhagic cystitis;mucositis;nausea and vomiting;neutropenia;thrombocytopenia Problems Present (Chemotherapy Effects) altered nutrition;anemia;neutropenia;thrombocytopenia Problem: Skin Integrity Impairment, Risk/Actual (Adult, Obstetrics) Goal: Skin Integrity/Wound Healing Patient will demonstrate the desired outcomes. Outcome: Ongoing (Interventions Implemented as Appropriate) 12/27/14446 Skin Integrity Impairment, Risk/Actual (Adult, Obstetrics) Skin Integrity/Wound Healing making progress toward outcome * Plan of Care - Dafne Rowan RN - 12/26/2014 6:08 PM EST Problem: General Plan of Care Goal: Plan of Care Review Outcome: Ongoing (Interventions Implemented as Appropriate) 12/26/14 0612/26/14 08 Coping/Psychosocial Response Interventions Plan of Care Reviewed with -- patient;daughter Plan of Care Review Plan of Care Outcome Status ongoing (interventions implemented as appropriate) -- Progress no change -- OUTCOME EVALUATION NOTE: OUTCOME SUMMARY: Pt is day +3 of her auto SCT; VSS throughout the day, denies c/o pain/n/v. She does c/o of itchiness on her abd, although she states the rash is improving steadily. This AM, noted that the skin superior to her Hickmann insertion site appeared pink/red, ? increased from even yesterday morning. Alonzo Leach NP, assessed site-- pt given 1 dose Vancomycin and the TCVAD was removed by IR w/o incident. The Vancomycin, however, did cause a rxn for Myriam-- red/raised/itchy rash across face, chest, upperarms, and upper back, much improved w/ IV Benadryl. After the TCVAD was removed, a L hand PIV was placed for IV access- plan to reassess in AM whether to access RCW port. She received 2 doses of 2g IV magnesium per protocol. Nystatin rinse d/c'd, oral thrush resolved. She continues w/ Caphosol rinses as ordered. This AM, Myriam showered and walked around the unit (multiple laps). PLAN MOVING FORWARD: Monitor counts/electrolytes and replete as needed, monitor I+O/weight and encourage PO intake INDIVIDUALIZED FALL PREVENTION: Assistance: Independent Surveillance: Purposeful hourly rounding CPG GOAL OUTCOME EVALUATION: Goal: Individualization and Mutuality Outcome: Ongoing (Interventions Implemented as Appropriate) Goal: Fall Prevention-Safe Patient Handling 12/21/14 0800 12/26/14 0812/26/14 0833 Musculoskeletal Interventions Activity/Level of Assistance up in room;with stand by assist -- -- Positioning independent -- -- Muscle Strengthening -- -- -- Self-Care Promotion -- -- -- Safety Interventions Safety Precautions/Fall Reduction -- -- -- Garza Fall Risk History of Falling -- -- 0 Secondary Diagnosis -- -- 15 Ambulatory Aids -- -- 0 Intravenous Therapy/Heparin/Saline Lock -- -- 20 Gait/Transferring -- -- 0 Mental Status -- -- 0 Score -- -- 35 OTHER Garza Fall Risk -- Med -- 12/26/14 1730 Musculoskeletal Interventions Activity/Level of Assistance -- Positioning -- Muscle Strengthening activity/mobility promoted;personal routines for BADL/IADL promoted;strengthening exercises performed Self-Care Promotion personal routines for BADL/IADL promoted Safety Interventions Safety Precautions/Fall Reduction fall reduction program maintained;environmental modification;family at bedside;low bed;lighting adjusted for task/safety;nonskid shoes/slippers when out of bed;muscle strengthening facilitated Garza Fall Risk History of Falling -- Secondary Diagnosis -- Ambulatory Aids -- Intravenous Therapy/Heparin/Saline Lock -- Gait/Transferring -- Mental Status -- Score -- OTHER Garza Fall Risk -- Goal: Infection Control Outcome: Ongoing (Interventions Implemented as Appropriate) 12/26/14 0833 Coping/Psychosocial Response Interventions Counseling verbalization of feelings encouraged Safety Interventions Isolation Precautions neutropenic precautions maintained Infection Prevention environmental surveillance;rest/sleep promoted;promote handwashing;hydration promoted Goal: Discharge Needs Assessment Outcome: Ongoing (Interventions Implemented as Appropriate) 12/26/14 173 Living Environment Transportation Available car;family or friend will provide Discharge Needs Assessment Concerns to be Addressed no discharge needs identified Self-Care Equipment Currently Used at Home none Current Health Anticipated Changes Related to Illness none Problem: Chemotherapy Effects (Adult) Goal: Signs and symptoms of listed potential problems will be absent or manageable (reference (Chemotherapy Effects (Adult)) CPG) Outcome: Ongoing (Interventions Implemented as Appropriate) 12/26/14 0603 Chemotherapy Effects Problems Assessed (Chemotherapy Effects) altered nutrition;anemia;constipation;diarrhea;fatigue;hemorrhagic cystitis;mucositis;nausea and vomiting;neutropenia;thrombocytopenia Problems Present (Chemotherapy Effects) altered nutrition;anemia;neutropenia;thrombocytopenia Problem: Skin Integrity Impairment, Risk/Actual (Adult, Obstetrics) Goal: Skin Integrity/Wound Healing Patient will demonstrate the desired outcomes. Outcome: Ongoing (Interventions Implemented as Appropriate) 12/26/14602 Skin Integrity Impairment, Risk/Actual (Adult, Obstetrics) Skin Integrity/Wound Healing making progress toward outcome * Plan of Care - Justin Guillen RN - 12/26/2014 6:08 AM EST Problem: General Plan of Care Goal: Plan of Care Review Outcome: Ongoing (Interventions Implemented as Appropriate) 12/26/14602 Coping/Psychosocial Response Interventions Plan of Care Reviewed with patient;daughter Plan of Care Review Plan of Care Outcome Status ongoing (interventions implemented as appropriate) Progress no change OUTCOME EVALUATION NOTE: OUTCOME SUMMARY: Slept ok. Some pruritis continues at maculopapular abdominal rash, unchanged in appearance. Slight redness, decreasing tenderness at CVC site. Drinking fair, snacking, but decreased appetite. No new complaints. PLAN MOVING FORWARD: Monitor labs, vital signs. Continue self care activities, ambulation. Encourage intake as tolerated, nutrient dense foods. INDIVIDUALIZED FALL PREVENTION: Assistance: Independent, reliable. Steady on her feet. Supervision: independent Surveillance: Purposeful hourly rounding. CPG GOAL OUTCOME EVALUATION: Goal: Infection Control Outcome: Ongoing (Interventions Implemented as Appropriate) 12/25/14211912/26/14602 Coping/Psychosocial Response Interventions Counseling -- verbalization of feelings encouraged;understanding of situation facilitated Safety Interventions Isolation Precautions neutropenic precautions maintained -- Infection Prevention environmental surveillance;hydration promoted;nutrition promoted;promote handwashing;rest/sleep promoted -- Problem: Chemotherapy Effects (Adult) Goal: Signs and symptoms of listed potential problems will be absent or manageable (reference (Chemotherapy Effects (Adult)) CPG) Outcome: Ongoing (Interventions Implemented as Appropriate) 12/26/14602 Chemotherapy Effects Problems Assessed (Chemotherapy Effects) altered nutrition;anemia;constipation;diarrhea;fatigue;hemorrhagic cystitis;mucositis;nausea and vomiting;neutropenia;thrombocytopenia Problems Present (Chemotherapy Effects) altered nutrition;anemia;neutropenia;thrombocytopenia Problem: Skin Integrity Impairment, Risk/Actual (Adult, Obstetrics) Goal: Skin Integrity/Wound Healing Patient will demonstrate the desired outcomes. Outcome: Ongoing (Interventions Implemented as Appropriate) 12/26/14602 Skin Integrity Impairment, Risk/Actual (Adult, Obstetrics) Skin Integrity/Wound Healing making progress toward outcome * Plan of Care - Erika Swanson RN - 12/25/2014 5:51 PM EST Problem: General Plan of Care Goal: Plan of Care Review Outcome: Ongoing (Interventions Implemented as Appropriate) 12/25/14 7833 Coping/Psychosocial Response Interventions Plan of Care Reviewed with patient Plan of Care Review Plan of Care Outcome Status ongoing (interventions implemented as appropriate) Progress progress toward functional goals as expected OUTCOME EVALUATION NOTE: OUTCOME SUMMARY: Day +2 Auto SCT for DLBCL; CBV conditioning. Potassium replaced this shift. Pt continues with adequate ambulation today. Weight is stable. Central line dressing changed today; some redness appreciated at insertion site and line continues to be tender. GUEST SERVICE MANAGER is aware and monitoring; will reassess need for line tomorrow. PLAN MOVING FORWARD: Continue with replacements as needed per transplant protocol. Monitor for s/s of infection. INDIVIDUALIZED FALL PREVENTION: Assistance: None. Supervision: Independent. Surveillance: Declined masimo; hourly rounding performed. CPG GOAL OUTCOME EVALUATION: Goal: Fall Prevention-Safe Patient Handling Outcome: Ongoing (Interventions Implemented as Appropriate) 12/21/14 0800 12/25/14 0830 Musculoskeletal Interventions Activity/Level of Assistance up in room;with stand by assist -- Positioning independent -- Muscle Strengthening -- activity/mobility promoted;personal routines for BADL/IADL promoted Garza Fall Risk History of Falling -- 0 Secondary Diagnosis -- 15 Ambulatory Aids -- 0 Intravenous Therapy/Heparin/Saline Lock -- 20 Gait/Transferring -- 0 Mental Status -- 0 Score -- 35 OTHER Garza Fall Risk -- Med Safety Interventions Safety Precautions/Fall Reduction -- chemotherapeutic agent precautions;commode/urinal/bedpan at bedside;environmental modification;fall reduction program maintained;family at bedside;lighting adjusted for task/safety;low bed;nonskid shoes/slippers when out of bed;room near unit station Goal: Infection Control Outcome: Ongoing (Interventions Implemented as Appropriate) 12/25/14 0830 Coping/Psychosocial Response Interventions Counseling calming techniques promoted;emotional support provided;problem solving facilitated;reassurance provided;relaxation techniques promoted;understanding of situation facilitated;verbalization of feelings encouraged Safety Interventions Isolation Precautions neutropenic precautions maintained Infection Prevention environmental surveillance;hydration promoted;nutrition promoted;promote handwashing;rest/sleep promoted Problem: Chemotherapy Effects (Adult) Goal: Signs and symptoms of listed potential problems will be absent or manageable (reference (Chemotherapy Effects (Adult)) CPG) Outcome: Ongoing (Interventions Implemented as Appropriate) 12/25/14 174 Chemotherapy Effects Problems Assessed (Chemotherapy Effects) all Problems Present (Chemotherapy Effects) altered nutrition;anemia;fatigue;neutropenia;thrombocytopenia Problem: Skin Integrity Impairment, Risk/Actual (Adult, Obstetrics) Goal: Skin Integrity/Wound Healing Patient will demonstrate the desired outcomes. Outcome: Ongoing (Interventions Implemented as Appropriate) 12/25/141742 Skin Integrity Impairment, Risk/Actual (Adult, Obstetrics) Skin Integrity/Wound Healing making progress toward outcome * Plan of Care - Justin Gulilen RN - 12/25/2014 6:51 AM EST Problem: General Plan of Care Goal: Plan of Care Review Outcome: Ongoing (Interventions Implemented as Appropriate) 12/25/14 06 Coping/Psychosocial Response Interventions Plan of Care Reviewed with patient Plan of Care Review Plan of Care Outcome Status ongoing (interventions implemented as appropriate) Progress no change OUTCOME EVALUATION NOTE: OUTCOME SUMMARY: Slept ok. No new complaints. Discussed ambulating more, drinking. PLAN MOVING FORWARD: Monitor labs, vital signs. Continue self care activities. Encourage intake, ambulation. INDIVIDUALIZED FALL PREVENTION: Assistance: Independent, steady on feet. Reviewed risk to fall. Pt calling appropriately. Supervision: Independent. Assess need for standby assist in [place]. Surveillance: Purposeful hourly rounding. CPG GOAL OUTCOME EVALUATION: Goal: Infection Control Outcome: Ongoing (Interventions Implemented as Appropriate) 12/24/14219912/25/14 06 Coping/Psychosocial Response Interventions Counseling -- understanding of situation facilitated;verbalization of feelings encouraged;reassurance provided Safety Interventions Isolation Precautions neutropenic precautions maintained -- Infection Prevention bronchial hygiene promoted;hydration promoted;nutrition promoted;promote handwashing;rest/sleep promoted -- Problem: Chemotherapy Effects (Adult) Goal: Signs and symptoms of listed potential problems will be absent or manageable (reference (Chemotherapy Effects (Adult)) CPG) Outcome: Ongoing (Interventions Implemented as Appropriate) 12/25/14 06 Chemotherapy Effects Problems Assessed (Chemotherapy Effects) altered nutrition;anemia;constipation;diarrhea;fatigue;mucositis;nausea and vomiting;neutropenia;thrombocytopenia Problems Present (Chemotherapy Effects) fatigue;neutropenia;thrombocytopenia Problem: Skin Integrity Impairment, Risk/Actual (Adult, Obstetrics) Goal: Skin Integrity/Wound Healing Patient will demonstrate the desired outcomes. Outcome: Ongoing (Interventions Implemented as Appropriate) 12/25/14 0643 Skin Integrity Impairment, Risk/Actual (Adult, Obstetrics) Skin Integrity/Wound Healing making progress toward outcome Problem: Pain, Acute (Adult, Obstetrics) Goal: Acceptable Pain Control/Comfort Level Patient will demonstrate the desired outcomes. Outcome: Outcome (s) achieved Date Met: 12/25/14 * Plan of Care - Erika Swanson RN - 12/24/2014 8:14 PM EST Problem: General Plan of Care Goal: Plan of Care Review Outcome: Ongoing (Interventions Implemented as Appropriate) 12/24/142006 Coping/Psychosocial Response Interventions Plan of Care Reviewed with patient Plan of Care Review Plan of Care Outcome Status ongoing (interventions implemented as appropriate) Progress progress toward functional goals as expected OUTCOME EVALUATION NOTE: OUTCOME SUMMARY: Day +1 Auto SCT for DLBCL; conditioned with CBV. Magnesium and Potassium replaced this shift. 1 unit of PRBCs administered. 10 minutes after infusion was complete pt reported noticing a pruritic umberto her abdomen; transfusion medicine and MD notified. Transfusion work-up initiated; RBC bag was not sent per MD's request. Deemed an allergic reaction and pt was cleared for future blood product infusions. Benadryl administered for rash. Weight is stable. PLAN MOVING FORWARD: Continue with replacements as needed per transplant protocol. Monitor for s/s of infection. INDIVIDUALIZED FALL PREVENTION: Assistance: None. Supervision: Independent. Surveillance: Declined masimo; hourly rounding performed. CPG GOAL OUTCOME EVALUATION: Goal: Fall Prevention-Safe Patient Handling Outcome: Ongoing (Interventions Implemented as Appropriate) 12/21/14 0800 12/24/14 0829 Musculoskeletal Interventions Activity/Level of Assistance up in room;with stand by assist -- Positioning independent -- Muscle Strengthening -- activity/mobility promoted Garza Fall Risk History of Falling -- 0 Secondary Diagnosis -- 15 Ambulatory Aids -- 0 Intravenous Therapy/Heparin/Saline Lock -- 20 Gait/Transferring -- 0 Mental Status -- 0 Score -- 35 OTHER Garza Fall Risk -- Med Safety Interventions Safety Precautions/Fall Reduction -- fall reduction program maintained;family at bedside;commode/urinal/bedpan at bedside;low bed;lighting adjusted for task/safety;nonskid shoes/slippers when out of bed;room near unit station (daughter present at bedside) Goal: Infection Control Outcome: Ongoing (Interventions Implemented as Appropriate) 12/24/14 0829 Coping/Psychosocial Response Interventions Counseling calming techniques promoted Safety Interventions Isolation Precautions neutropenic precautions maintained Infection Prevention environmental surveillance;hydration promoted;nutrition promoted;promote handwashing;rest/sleep promoted Problem: Chemotherapy Effects (Adult) Goal: Signs and symptoms of listed potential problems will be absent or manageable (reference (Chemotherapy Effects (Adult)) CPG) Outcome: Ongoing (Interventions Implemented as Appropriate) 12/24/142006 Chemotherapy Effects Problems Assessed (Chemotherapy Effects) all Problems Present (Chemotherapy Effects) altered nutrition;anemia;fatigue;neutropenia;thrombocytopenia Problem: Skin Integrity Impairment, Risk/Actual (Adult, Obstetrics) Goal: Skin Integrity/Wound Healing Patient will demonstrate the desired outcomes. Outcome: Ongoing (Interventions Implemented as Appropriate) 12/24/142006 Skin Integrity Impairment, Risk/Actual (Adult, Obstetrics) Skin Integrity/Wound Healing making progress toward outcome Problem: Pain, Acute (Adult, Obstetrics) Goal: Acceptable Pain Control/Comfort Level Patient will demonstrate the desired outcomes. Outcome: Ongoing (Interventions Implemented as Appropriate) 12/24/142006 Pain, Acute (Adult, Obstetrics) Acceptable Pain Control/Comfort Level making progress toward outcome * Plan of Care - Lizzette De La Cruz RN - 12/24/2014 3:11 AM EST Problem: General Plan of Care Goal: Plan of Care Review Outcome: Ongoing (Interventions Implemented as Appropriate) 12/24/14 0135 Coping/Psychosocial Response Interventions Plan of Care Reviewed with patient;daughter Plan of Care Review Plan of Care Outcome Status ongoing (interventions implemented as appropriate) Progress progress toward functional goals as expected OUTCOME EVALUATION NOTE: OUTCOME SUMMARY: Day 0 to+1 of autologous SCT for DLBCL, conditioned with CBV. Pt stable. Tongue coated- continues nystatin. PLAN MOVING FORWARD: Continue per transplant protocol. INDIVIDUALIZED FALL PREVENTION: Assistance: Independent Supervision: Independent Surveillance: Purposeful hourly rounding CPG OUTCOME EVALUATION: Goal: Individualization and Mutuality Outcome: Ongoing (Interventions Implemented as Appropriate) 12/17/142033 Mutuality/Individual Preferences What anxieties, fears or concerns do you have about your health or care? see comment (trusting that staff will help her through this process) What questions do you have about your health or care? see comment (not at this time, will ask as they arise) What information would help us give you more personalized care? see coment (humor helps) Goal: Fall Prevention-Safe Patient Handling Outcome: Ongoing (Interventions Implemented as Appropriate) 12/21/14 0800 12/23/142013 Musculoskeletal Interventions Activity/Level of Assistance up in room;with stand by assist -- Positioning independent -- Muscle Strengthening -- activity/mobility promoted;mobility in bed promoted Garza Fall Risk History of Falling -- 0 Secondary Diagnosis -- 15 Ambulatory Aids -- 0 Intravenous Therapy/Heparin/Saline Lock -- 0 Gait/Transferring -- 0 Mental Status -- 0 Score -- 15 OTHER Garza Fall Risk -- Low Safety Interventions Safety Precautions/Fall Reduction -- fall reduction program maintained;family at bedside;environmental modification;lighting adjusted for task/safety;low bed;nonskid shoes/slippers when out of bed Goal: Infection Control Outcome: Ongoing (Interventions Implemented as Appropriate) 12/23/142013 Coping/Psychosocial Response Interventions Counseling calming techniques promoted;emotional support provided;personal strengths integrated;problem solving facilitated;reassurance provided Safety Interventions Isolation Precautions neutropenic precautions maintained Infection Prevention environmental surveillance;hydration promoted;nutrition promoted;promote handwashing;rest/sleep promoted;bronchial hygiene promoted Goal: Discharge Needs Assessment Outcome: Ongoing (Interventions Implemented as Appropriate) 12/18/14 0406 Living Environment Transportation Available family or friend will provide Discharge Needs Assessment Concerns to be Addressed denies needs/concerns at this time Equipment Needed After Discharge none Discharge Planning Comments will be staying with a friend at discharge for about a week for support Self-Care Equipment Currently Used at Home none Problem: Chemotherapy Effects (Adult) Goal: Signs and symptoms of listed potential problems will be absent or manageable (reference (Chemotherapy Effects (Adult)) CPG) Outcome: Ongoing (Interventions Implemented as Appropriate) 12/23/14 19412/24/14 0135 Chemotherapy Effects Problems Assessed (Chemotherapy Effects) -- all Problems Present (Chemotherapy Effects) altered nutrition;anemia;fatigue;nausea and vomiting;thrombocytopenia -- Problem: Skin Integrity Impairment, Risk/Actual (Adult, Obstetrics) Goal: Skin Integrity/Wound Healing Patient will demonstrate the desired outcomes. Outcome: Ongoing (Interventions Implemented as Appropriate) 12/24/14 013 Skin Integrity Impairment, Risk/Actual (Adult, Obstetrics) Skin Integrity/Wound Healing achieves outcome Problem: Pain, Acute (Adult, Obstetrics) Goal: Acceptable Pain Control/Comfort Level Patient will demonstrate the desired outcomes. Outcome: Ongoing (Interventions Implemented as Appropriate) 12/24/14 013 Pain, Acute (Adult, Obstetrics) Acceptable Pain Control/Comfort Level making progress toward outcome * Plan of Care - Dali Bah RN - 12/23/2014 7:59 PM EST Problem: General Plan of Care Goal: Plan of Care Review Outcome: Ongoing (Interventions Implemented as Appropriate) 12/22/14173812/23/141944 Coping/Psychosocial Response Interventions Plan of Care Reviewed with -- patient Plan of Care Review Plan of Care Outcome Status -- ongoing (interventions implemented as appropriate) Progress progress toward functional goals as expected -- OUTCOME EVALUATION NOTE: OUTCOME SUMMARY: Day 0 of autologous SCT for DLBCL, conditioned with CBV. Developed oral thrush, nystatin ordered byAPRN. Provided education about proper hygiene care and rinse schedule. Reported nausea between breakfast and lunch, scheduled ativan given with minimal effect. IV compazine given and pt stated nauseaimproved. Cells given at 1400. Please see stem cell note for infusion details. Voiding adequatley and moved bowels x1. Bowel medications held per pt request. Appetite decreased, needs encouragement to increase fluid intake. Showered and ambulated to and from bathroom. PLAN MOVING FORWARD: Continue per transplant protocol. Encourage po intake. INDIVIDUALIZED FALL PREVENTION: Assistance: None Supervision: Independent/standby Surveillance: Purposeful hourly rounding CPG OUTCOME EVALUATION: Goal: Individualization and Mutuality Outcome: Ongoing (Interventions Implemented as Appropriate) 12/17/142033 Mutuality/Individual Preferences What anxieties, fears or concerns do you have about your health or care? see comment (trusting that staff will help her through this process) What questions do you have about your health or care? see comment (not at this time, will ask as they arise) What information would help us give you more personalized care? see coment (humor helps) Goal: Fall Prevention-Safe Patient Handling Outcome: Ongoing (Interventions Implemented as Appropriate) 12/21/14 0800 12/23/14 0849 Musculoskeletal Interventions Activity/Level of Assistance up in room;with stand by assist -- Positioning independent -- Muscle Strengthening -- activity/mobility promoted Garza Fall Risk History of Falling -- 0 Secondary Diagnosis -- 15 Ambulatory Aids -- 0 Intravenous Therapy/Heparin/Saline Lock -- 20 Gait/Transferring -- 0 Mental Status -- 0 Score -- 35 OTHER Garza Fall Risk -- Med Safety Interventions Safety Precautions/Fall Reduction -- fall reduction program maintained;low bed;nonskid shoes/slippers when out of bed Goal: Infection Control Outcome: Ongoing (Interventions Implemented as Appropriate) Goal: Discharge Needs Assessment Outcome: Ongoing (Interventions Implemented as Appropriate) Problem: Chemotherapy Effects (Adult) Goal: Signs and symptoms of listed potential problems will be absent or manageable (reference (Chemotherapy Effects (Adult)) CPG) Outcome: Ongoing (Interventions Implemented as Appropriate) 12/23/141944 Chemotherapy Effects Problems Assessed (Chemotherapy Effects) all Problems Present (Chemotherapy Effects) altered nutrition;anemia;fatigue;nausea and vomiting;thrombocytopenia Problem: Skin Integrity Impairment, Risk/Actual (Adult, Obstetrics) Goal: Skin Integrity/Wound Healing Patient will demonstrate the desired outcomes. Outcome: Ongoing (Interventions Implemented as Appropriate) 12/23/141944 Skin Integrity Impairment, Risk/Actual (Adult, Obstetrics) Skin Integrity/Wound Healing making progress toward outcome Problem: Pain, Acute (Adult, Obstetrics) Goal: Acceptable Pain Control/Comfort Level Patient will demonstrate the desired outcomes. 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 Intermittent nausea, scheduled ativan given. Drinking minimally. PLAN MOVING FORWARD: Continue per transplant protocol Monitor for chemotherapy side effects and treat as appropriate Monitor for signs/symptoms of infection INDIVIDUALIZED FALL PREVENTION: Assistance: none Supervision: Independent/Standby Surveillance: Hourly rounding, fall precautions CPG GOAL OUTCOME EVALUATION: Goal: Individualization and Mutuality Outcome: Ongoing (Interventions Implemented as Appropriate) Goal: Fall Prevention-Safe Patient Handling Outcome: Ongoing (Interventions Implemented as Appropriate) 12/21/14 0812/22/14173812/22/142104 Musculoskeletal Interventions Activity/Level of Assistance up in room;with stand by assist -- -- Positioning independent -- -- Muscle Strengthening -- activity/mobility promoted;personal routines for BADL/IADL promoted -- Garza Fall Risk History of Falling -- -- 0 Secondary Diagnosis -- -- 15 Ambulatory Aids -- -- 0 Intravenous Therapy/Heparin/Saline Lock -- -- 20 Gait/Transferring -- -- 0 Mental Status -- -- 0 Score -- -- 35 OTHER Garza Fall Risk -- -- Med Safety Interventions Safety Precautions/Fall Reduction -- -- fall reduction program maintained Goal: Infection Control Outcome: Ongoing (Interventions Implemented as Appropriate) 12/22/14 0812/22/142104 Coping/Psychosocial Response Interventions Counseling verbalization of feelings encouraged;understanding of situation facilitated;reassurance provided;goal setting facilitated -- Safety Interventions Isolation Precautions -- standard precautions maintained;neutropenic precautions maintained Infection Prevention -- bronchial hygiene promoted;environmental surveillance;nutrition promoted;hydration promoted;promote handwashing;rest/sleep promoted Goal: Discharge Needs Assessment Outcome: Ongoing (Interventions Implemented as Appropriate) 12/18/14 0406 Living Environment Transportation Available family or friend will provide Discharge Needs Assessment Concerns to be Addressed denies needs/concerns at this time Equipment Needed After Discharge none Discharge Planning Comments will be staying with a friend at discharge for about a week for support Self-Care Equipment Currently Used at Home none Problem: Chemotherapy Effects (Adult) Goal: Signs and symptoms of listed potential problems will be absent or manageable (reference (Chemotherapy Effects (Adult)) CPG) Outcome: Ongoing (Interventions Implemented as Appropriate) 12/22/14 173 Chemotherapy Effects Problems Assessed (Chemotherapy Effects) altered nutrition;anemia;constipation;diarrhea;fatigue;hemorrhagic cystitis;hypersensitivity reaction;mucositis;nausea and vomiting;neurotoxicity;neutropenia;situational response;thrombocytopenia Problems Present (Chemotherapy Effects) altered nutrition;constipation;diarrhea;fatigue;nausea and vomiting;thrombocytopenia Problem: Skin Integrity Impairment, Risk/Actual (Adult, Obstetrics) Goal: Skin Integrity/Wound Healing Patient will demonstrate the desired outcomes. Outcome: Ongoing (Interventions Implemented as Appropriate) 12/22/141738 Skin Integrity Impairment, Risk/Actual (Adult, Obstetrics) Skin Integrity/Wound Healing achieves outcome Problem: Pain, Acute (Adult, Obstetrics) Goal: Acceptable Pain Control/Comfort Level Patient will demonstrate the desired outcomes. Outcome: Ongoing (Interventions Implemented as Appropriate) 12/22/141738 Pain, Acute (Adult, Obstetrics) Acceptable Pain Control/Comfort Level achieves outcome * Plan of Care - Shanna Deleon RN - 12/22/2014 5:46 PM EST Problem: General Plan of Care Goal: Plan of Care Review Outcome: Ongoing (Interventions Implemented as Appropriate) 12/22/1482712/22/141738 Coping/Psychosocial Response Interventions Plan of Care Reviewed with patient;significant other;daughter -- Plan of Care Review Plan of Care Outcome Status -- ongoing (interventions implemented as appropriate) Progress -- progress toward functional goals as expected OUTCOME EVALUATION NOTE: OUTCOME SUMMARY: Day -1 from autologous SCT for DLBCL; conditioned with CBV. Day off of chemotherapy today, Teresa completed this shift. Intermittent nausea, scheduled ativan given. Drinking minimally today and appetite decreasing. 2 loose BMs, held scheduled bowel meds today. Potassium and Magnesium replaced per protocol. Showered and ambulated in hallway. PLAN MOVING FORWARD: Continue per transplant protocol Monitor for chemotherapy side effects and treat as appropriate Monitor for signs/symptoms of infection INDIVIDUALIZED FALL PREVENTION: Assistance: none Supervision: Independent/Standby Surveillance: Hourly rounding, fall precautions CPG GOAL OUTCOME EVALUATION: Goal: Individualization and Mutuality Outcome: Ongoing (Interventions Implemented as Appropriate) Goal: Fall Prevention-Safe Patient Handling Outcome: Ongoing (Interventions Implemented as Appropriate) 12/22/1482712/22/141738 Musculoskeletal Interventions Muscle Strengthening -- activity/mobility promoted;personal routines for BADL/IADL promoted Garza Fall Risk History of Falling 0 -- Secondary Diagnosis 15 -- Ambulatory Aids 0 -- Intravenous Therapy/Heparin/Saline Lock 20 -- Gait/Transferring 0 -- Mental Status 0 -- Score 35 -- OTHER Garza Fall Risk Med -- Safety Interventions Safety Precautions/Fall Reduction chemotherapeutic agent precautions;fall reduction program maintained;family at bedside;lighting adjusted for task/safety;nonskid shoes/slippers when out of bed;room near unit station -- Goal: Infection Control Outcome: Ongoing (Interventions Implemented as Appropriate) 12/22/14 0828 Coping/Psychosocial Response Interventions Counseling verbalization of feelings encouraged;understanding of situation facilitated;reassurance provided;goal setting facilitated Safety Interventions Isolation Precautions neutropenic precautions maintained Infection Prevention environmental surveillance;bronchial hygiene promoted;hydration promoted;nutrition promoted;promote handwashing;rest/sleep promoted Goal: Discharge Needs Assessment Outcome: Ongoing (Interventions Implemented as Appropriate) Problem: Chemotherapy Effects (Adult) Goal: Signs and symptoms of listed potential problems will be absent or manageable (reference (Chemotherapy Effects (Adult)) CPG) Outcome: Ongoing (Interventions Implemented as Appropriate) 12/22/14 1739 Chemotherapy Effects Problems Assessed (Chemotherapy Effects) altered nutrition;anemia;constipation;diarrhea;fatigue;hemorrhagic cystitis;hypersensitivity reaction;mucositis;nausea and vomiting;neurotoxicity;neutropenia;situational response;thrombocytopenia Problems Present (Chemotherapy Effects) altered nutrition;constipation;diarrhea;fatigue;nausea and vomiting;thrombocytopenia Problem: Skin Integrity Impairment, Risk/Actual (Adult, Obstetrics) Goal: Skin Integrity/Wound Healing Patient will demonstrate the desired outcomes. Outcome: Ongoing (Interventions Implemented as Appropriate) 12/22/14 173 Skin Integrity Impairment, Risk/Actual (Adult, Obstetrics) Skin Integrity/Wound Healing achieves outcome Problem: Pain, Acute (Adult, Obstetrics) Goal: Acceptable Pain Control/Comfort Level Patient will demonstrate the desired outcomes. Outcome: Ongoing (Interventions Implemented as Appropriate) 12/22/14 1739 Pain, Acute (Adult, Obstetrics) Acceptable Pain Control/Comfort Level achieves outcome * Plan of Care - Yahaira Villagran RN - 12/22/2014 5:03 AM EST Problem: General Plan of Care Goal: Plan of Care Review Outcome: Ongoing (Interventions Implemented as Appropriate) 12/21/14 1722 12/21/142004 Coping/Psychosocial Response Interventions Plan of Care Reviewed with -- patient Plan of Care Review Plan of Care Outcome Status ongoing (interventions implemented as appropriate) -- Progress progress toward functional goals as expected -- OUTCOME EVALUATION NOTE: OUTCOME SUMMARY: Day -2/-1 autologous SCT for DLBCL; conditioned with CBV. Continues with low grade nausea w/o emesis Controlled with po atian. Mesna to continue for total of 24 hours; no BM overnight PLAN MOVING FORWARD: Continue per transplant protocol, Monitor for chemotherapy side effects and treat as appropriate Monitor for signs/symptoms of infection INDIVIDUALIZED FALL PREVENTION: Assistance: none Supervision: standby Surveillance: Hourly rounding, paul, fall precautions CPG GOAL OUTCOME EVALUATION: Goal: Individualization and Mutuality Outcome: Ongoing (Interventions Implemented as Appropriate) 12/17/142033 Mutuality/Individual Preferences What anxieties, fears or concerns do you have about your health or care? see comment (trusting that staff will help her through this process) What questions do you have about your health or care? see comment (not at this time, will ask as they arise) What information would help us give you more personalized care? see coment (humor helps) Goal: Fall Prevention-Safe Patient Handling Outcome: Ongoing (Interventions Implemented as Appropriate) 12/21/14 0800 12/21/142004 Garza Fall Risk History of Falling -- 0 Secondary Diagnosis -- 15 Ambulatory Aids -- 0 Intravenous Therapy/Heparin/Saline Lock -- 20 Gait/Transferring -- 0 Mental Status -- 0 Score -- 35 OTHER Garza Fall Risk -- Med Safety Interventions Safety Precautions/Fall Reduction -- bed alarm;fall reduction program maintained;nonskid shoes/slippers when out of bed Musculoskeletal Interventions Activity/Level of Assistance up in room;with stand by assist -- Positioning independent -- Goal: Infection Control Outcome: Ongoing (Interventions Implemented as Appropriate) 12/21/142004 Coping/Psychosocial Response Interventions Counseling emotional support provided Safety Interventions Isolation Precautions standard precautions maintained;neutropenic precautions maintained Infection Prevention environmental surveillance;bronchial hygiene promoted;nutrition promoted;hydration promoted;promote handwashing;rest/sleep promoted Goal: Discharge Needs Assessment Outcome: Ongoing (Interventions Implemented as Appropriate) 12/18/14 0406 Living Environment Transportation Available family or friend will provide Discharge Needs Assessment Concerns to be Addressed denies needs/concerns at this time Equipment Needed After Discharge none Discharge Planning Comments will be staying with a friend at discharge for about a week for support Self-Care Equipment Currently Used at Home none Problem: Chemotherapy Effects (Adult) Goal: Signs and symptoms of listed potential problems will be absent or manageable (reference (Chemotherapy Effects (Adult)) CPG) Outcome: Ongoing (Interventions Implemented as Appropriate) 12/21/14 1722 Chemotherapy Effects Problems Assessed (Chemotherapy Effects) altered nutrition;anemia;constipation;diarrhea;fatigue;hemorrhagic cystitis;hypersensitivity reaction;mucositis;nausea and vomiting;neutropenia;thrombocytopenia Problems Present (Chemotherapy Effects) altered nutrition;anemia;fatigue;nausea and vomiting Problem: Skin Integrity Impairment, Risk/Actual (Adult, Obstetrics) Goal: Skin Integrity/Wound Healing Patient will demonstrate the desired outcomes. Outcome: Ongoing (Interventions Implemented as Appropriate) 12/21/14 1722 Skin Integrity Impairment, Risk/Actual (Adult, Obstetrics) Skin Integrity/Wound Healing achieves outcome Problem: Pain, Acute (Adult, Obstetrics) Goal: Acceptable Pain Control/Comfort Level Patient will demonstrate the desired outcomes. Outcome: Ongoing (Interventions Implemented as Appropriate) 12/21/14 1722 Pain, Acute (Adult, Obstetrics) Acceptable Pain Control/Comfort Level achieves outcome * Plan of Care - Shanna Deleon RN - 12/21/2014 5:38 PM EST Problem: General Plan of Care Goal: Plan of Care Review Outcome: Ongoing (Interventions Implemented as Appropriate) 12/21/14 0800 12/21/14 1722 Coping/Psychosocial Response Interventions Plan of Care Reviewed with patient;daughter -- Plan of Care Review Plan of Care Outcome Status -- ongoing (interventions implemented as appropriate) Progress -- progress toward functional goals as expected OUTCOME EVALUATION NOTE: OUTCOME SUMMARY: Day -2 from autologous SCT for DLBCL; conditioned with CBV. Received Cytoxan this shift, chemotherapy administered per policy; premedicated with Aloxi and Emend; Hydration and Mesna initiated 1 hour prior to Cytoxan; EKG done, reviewed by Dr. Owens. Mesna to continue for total of 24 hours; IVF to continue until 2300. Intermittent nausea throughout shift, scheduled ativan given as well as prn ativan IV and compazine with some relief. Drinking minimally today and appetite decreasing. 1 loose BM this evening, held scheduled bowel meds today. PLAN MOVING FORWARD: Continue per transplant protocol Monitor for chemotherapy side effects and treat as appropriate Monitor for signs/symptoms of infection D/C IV fluids at 2300 INDIVIDUALIZED FALL PREVENTION: Assistance: none Supervision: standby Surveillance: Hourly roundingpaul, fall precautions CPG GOAL OUTCOME EVALUATION: Goal: Individualization and Mutuality Outcome: Ongoing (Interventions Implemented as Appropriate) Goal: Fall Prevention-Safe Patient Handling Outcome: Ongoing (Interventions Implemented as Appropriate) 12/21/14 0800 Garza Fall Risk History of Falling 0 Secondary Diagnosis 15 Ambulatory Aids 0 Intravenous Therapy/Heparin/Saline Lock 20 Gait/Transferring 0 Mental Status 0 Score 35 OTHER Garza Fall Risk Med Safety Interventions Safety Precautions/Fall Reduction chemotherapeutic agent precautions;commode/urinal/bedpan at bedside;fall reduction program maintained;family at bedside;lighting adjusted for task/safety;nonskid shoe s/slippers when out of bed;room near unit station;muscle strengthening facilitated Musculoskeletal Interventions Activity/Level of Assistance up in room;with stand by assist Positioning independent Goal: Infection Control 12/21/14 0800 Coping/Psychosocial Response Interventions Counseling emotional support provided;goal setting facilitated;reassurance provided;understanding of situation facilitated;verbalization of feelings encouraged Safety Interventions Isolation Precautions standard precautions maintained;neutropenic precautions maintained Infection Prevention bronchial hygiene promoted;environmental surveillance;hydration promoted;nutrition promoted;promote handwashing;rest/sleep promoted Goal: Discharge Needs Assessment Outcome: Ongoing (Interventions Implemented as Appropriate) Problem: Chemotherapy Effects (Adult) Goal: Signs and symptoms of listed potential problems will be absent or manageable (reference (Chemotherapy Effects (Adult)) CPG) Outcome: Ongoing (Interventions Implemented as Appropriate) 12/21/14 172 Chemotherapy Effects Problems Assessed (Chemotherapy Effects) altered nutrition;anemia;constipation;diarrhea;fatigue;hemorrhagic cystitis;hypersensitivity reaction;mucositis;nausea and vomiting;neutropenia;thrombocytopenia Problems Present (Chemotherapy Effects) altered nutrition;anemia;fatigue;nausea and vomiting Problem: Skin Integrity Impairment, Risk/Actual (Adult, Obstetrics) Goal: Skin Integrity/Wound Healing Patient will demonstrate the desired outcomes. Outcome: Ongoing (Interventions Implemented as Appropriate) 12/21/14 172 Skin Integrity Impairment, Risk/Actual (Adult, Obstetrics) Skin Integrity/Wound Healing achieves outcome Problem: Pain, Acute (Adult, Obstetrics) Goal: Acceptable Pain Control/Comfort Level Patient will demonstrate the desired outcomes. Outcome: Ongoing (Interventions Implemented as Appropriate) 12/21/14 1722 Pain, Acute (Adult, Obstetrics) Acceptable Pain Control/Comfort Level achieves outcome * Plan of Care - Erika Swanson RN - 12/21/2014 6:00 AM EST Problem: General Plan of Care Goal: Plan of Care Review Outcome: Ongoing (Interventions Implemented as Appropriate) 12/21/14 0531 Coping/Psychosocial Response Interventions Plan of Care Reviewed with patient;daughter Plan of Care Review Plan of Care Outcome Status ongoing (interventions implemented as appropriate) Progress progress toward functional goals as expected OUTCOME EVALUATION NOTE: OUTCOME SUMMARY: Day -2 from autologous SCT for DLBCL; conditioned with CBV. One BM overnight. Pt denied headache pain overnight. Afebrile overnight. Denied nausea overnight; continued with scheduled Ativan and Zofran with good effect. Pt slept for the majority of the shift. Cytoxan scheduled for 1400 today; needs EKG and UA prior to receiving dose. PLAN MOVING FORWARD: Continue with replacements as needed per transplant protocol. Monitor for s/s of infection. Cytoxanscheduled for today at 1400. INDIVIDUALIZED FALL PREVENTION: Assistance: None. Supervision: SBA Surveillance: Paul. Hourly rounding performed. CPG GOAL OUTCOME EVALUATION: Goal: Fall Prevention-Safe Patient Handling Outcome: Ongoing (Interventions Implemented as Appropriate) 12/20/14201712/21/14 0450 Garza Fall Risk History of Falling 0 -- Secondary Diagnosis 15 -- Ambulatory Aids 0 -- Intravenous Therapy/Heparin/Saline Lock 20 -- Gait/Transferring 10 -- Mental Status 0 -- Score 45 -- OTHER Garza Fall Risk High -- Safety Interventions Safety Precautions/Fall Reduction bed alarm;commode/urinal/bedpan at bedside;environmental modification;fall reduction program maintained;family at bedside;lighting adjusted for task/safety;low bed;nonskid shoes/slippers when out of bed;room near unit station -- Musculoskeletal Interventions Activity/Level of Assistance -- up in room;with stand by assist Positioning -- independent Goal: Infection Control Outcome: Ongoing (Interventions Implemented as Appropriate) 12/20/142017 Coping/Psychosocial Response Interventions Counseling calming techniques promoted;emotional support provided;problem solving facilitated;reassurance provided;relaxation techniques promoted;understanding of situation facilitated;verbalization of feelings encouraged Safety Interventions Isolation Precautions standard precautions maintained Infection Prevention environmental surveillance;hydration promoted;nutrition promoted;promote handwashing;rest/sleep promoted Problem: Chemotherapy Effects (Adult) Goal: Signs and symptoms of listed potential problems will be absent or manageable (reference (Chemotherapy Effects (Adult)) CPG) Outcome: Ongoing (Interventions Implemented as Appropriate) 12/21/14 0531 Chemotherapy Effects Problems Assessed (Chemotherapy Effects) all Problems Present (Chemotherapy Effects) altered nutrition;anemia;fatigue;nausea and vomiting Problem: Skin Integrity Impairment, Risk/Actual (Adult, Obstetrics) Goal: Skin Integrity/Wound Healing Patient will demonstrate the desired outcomes. Outcome: Ongoing (Interventions Implemented as Appropriate) 12/21/14 0531 Skin Integrity Impairment, Risk/Actual (Adult, Obstetrics) Skin Integrity/Wound Healing achieves outcome Problem: Pain, Acute (Adult, Obstetrics) Goal: Acceptable Pain Control/Comfort Level Patient will demonstrate the desired outcomes. Outcome: Ongoing (Interventions Implemented as Appropriate) 12/21/14 0531 Pain, Acute (Adult, Obstetrics) Acceptable Pain Control/Comfort Level achieves outcome * Plan of Care - Lakesha Gil RN - 12/20/2014 6:44 PM EST Problem: General Plan of Care Goal: Plan of Care Review Outcome: Ongoing (Interventions Implemented as Appropriate) 12/20/14 1806 Coping/Psychosocial Response Interventions Plan of Care Reviewed with patient;daughter Plan of Care Review Plan of Care Outcome Status ongoing (interventions implemented as appropriate) Progress progress toward functional goals as expected OUTCOME EVALUATION NOTE: OUTCOME SUMMARY: Patient was very groggy this AM from overnight events (see previous notes). Incontinent of urine when waking up this AM. Patients' alertness improved throughout shift. Ambulated this evening around unit with daughter without issue. Patient received scheduled bowel medications and PRN miralax for ongoing constipation. This evening patient had very large bowel movement with a moderate size bowel movement following. Nausea continues intermittently received scheduled zofran, ativan, and PRN compazine x 1. Small amount of emesis x 1. Potassium and magnesium replaced per protocol. Afebrile throughout shift. VSS. Baseline weight 67.4. AM weight 68.2kg. PM 68.6kg. Discussed with GUEST SERVICE MANAGER's and decision made to hold on giving any lasix this evening d/t decreased intake and no s/s of fluid overload. PLAN MOVING FORWARD: Cytoxan tomorrow per protocol. Symptom management. Control nausea - encourage PO intake INDIVIDUALIZED FALL PREVENTION: Assistance: None Supervision: Stand by assistance Surveillance: Purposeful hourly rounding. Fall precautions maintained. CPG GOAL OUTCOME EVALUATION: Goal: Individualization and Mutuality Outcome: Ongoing (Interventions Implemented as Appropriate) Goal: Fall Prevention-Safe Patient Handling Outcome: Ongoing (Interventions Implemented as Appropriate) 12/20/14 1000 Garza Fall Risk History of Falling 0 Secondary Diagnosis 15 Ambulatory Aids 0 Intravenous Therapy/Heparin/Saline Lock 20 Gait/Transferring 10 Mental Status 0 Score 45 OTHER Garza Fall Risk High Safety Interventions Safety Precautions/Fall Reduction bed alarm;chemotherapeutic agent precautions;commode/urinal/bedpan at bedside;environmental modification;fall reduction program maintained;family at bedside;lightingadjusted for task/safety;low bed;nonskid shoes/slippers when out of bed;room near unit station Musculoskeletal Interventions Activity/Level of Assistance up in [place];up ad fernanda;up in room;ambulated;with stand by assist Positioning independent Goal: Infection Control Outcome: Ongoing (Interventions Implemented as Appropriate) 12/20/14 1000 Coping/Psychosocial Response Interventions Counseling calming techniques promoted;emotional support provided;relaxation techniques promoted;reassurance provided;understanding of situation facilitated;verbalization of feelings encouraged Safety Interventions Isolation Precautions standard precautions maintained;neutropenic precautions maintained Infection Prevention bronchial hygiene promoted;environmental surveillance;hydration promoted;nutrition promoted;rest/sleep promoted;promote handwashing Goal: Discharge Needs Assessment Outcome: Ongoing (Interventions Implemented as Appropriate) Problem: Chemotherapy Effects (Adult) Goal: Signs and symptoms of listed potential problems will be absent or manageable (reference (Chemotherapy Effects (Adult)) CPG) Outcome: Ongoing (Interventions Implemented as Appropriate) 12/20/14 180 Chemotherapy Effects Problems Assessed (Chemotherapy Effects) all Problems Present (Chemotherapy Effects) altered nutrition;anemia;constipation;fatigue;nausea and vomiting;situational response Problem: Skin Integrity Impairment, Risk/Actual (Adult, Obstetrics) Goal: Skin Integrity/Wound Healing Patient will demonstrate the desired outcomes. Outcome: Ongoing (Interventions Implemented as Appropriate) 12/20/14 180 Skin Integrity Impairment, Risk/Actual (Adult, Obstetrics) Skin Integrity/Wound Healing achieves outcome Problem: Pain, Acute (Adult, Obstetrics) Goal: Acceptable Pain Control/Comfort Level Patient will demonstrate the desired outcomes. Outcome: Ongoing (Interventions Implemented as Appropriate) 12/20/14 1806 Pain, Acute (Adult, Obstetrics) Acceptable Pain Control/Comfort Level achieves outcome * Plan of Care - Erika Swanson RN - 12/20/2014 7:07 AM EST Problem: General Plan of Care Goal: Plan of Care Review Outcome: Ongoing (Interventions Implemented as Appropriate) 12/20/14 0657 Coping/Psychosocial Response Interventions Plan of Care Reviewed with patient Plan of Care Review Plan of Care Outcome Status ongoing (interventions implemented as appropriate) Progress progress toward functional goals as expected OUTCOME EVALUATION NOTE: OUTCOME SUMMARY: 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 No BM overnight. Received oxycodone x2 with good effect for headache. Demerol administered for rigors post Etoposide infusion. Temp of 39.2at 2300; per discussion with covering MD r/t unclear nursing communication order and notes blood cultures x2, CXR, and UA were obtained. Tylenol administered per discussion with MD with good effect. PRN Compazine administered x1 with good effect. CBC drawn this morning after discussion with MD r/t fever spike and RN concern of not drawing a CBC for 6 days total. Potassium and Magnesium replacements started per protocol. PLAN MOVING FORWARD: Continue with replacements as needed per transplant protocol. Monitor for s/s of infection. Cytoxanscheduled for tomorrow. INDIVIDUALIZED FALL PREVENTION: Assistance: None. Supervision: SBA Surveillance: Paul. Bed Alarm. Hourly rounding performed. CPG GOAL OUTCOME EVALUATION: Goal: Fall Prevention-Safe Patient Handling Outcome: Ongoing (Interventions Implemented as Appropriate) 12/19/14 1934 12/20/14 0504 Garza Fall Risk History of Falling 0 -- Secondary Diagnosis 15 -- Ambulatory Aids 0 -- Intravenous Therapy/Heparin/Saline Lock 20 -- Gait/Transferring 0 -- Mental Status 0 -- Score 35 -- OTHER Garza Fall Risk Med -- Safety Interventions Safety Precautions/Fall Reduction chemotherapeutic agent precautions;environmental modification;fall reduction program maintained;family at bedside;lighting adjusted for task/safety;low bed;nonskid shoes/slippers when out of bed;room near unit station -- Musculoskeletal Interventions Activity/Level of Assistance -- up in room;with stand by assist Positioning -- independent Goal: Infection Control Outcome: Ongoing (Interventions Implemented as Appropriate) 12/19/14 1934 Coping/Psychosocial Response Interventions Counseling calming techniques promoted;emotional support provided;reassurance provided;problem solving facilitated;relaxation techniques promoted;understanding of situation facilitated;verbalization of feelings encouraged Safety Interventions Isolation Precautions neutropenic precautions maintained Infection Prevention hydration promoted;nutrition promoted;environmental surveillance;promote handwashing;rest/sleep promoted Problem: Chemotherapy Effects (Adult) Goal: Signs and symptoms of listed potential problems will be absent or manageable (reference (Chemotherapy Effects (Adult)) CPG) Outcome: Ongoing (Interventions Implemented as Appropriate) 12/20/14 0657 Chemotherapy Effects Problems Assessed (Chemotherapy Effects) all Problems Present (Chemotherapy Effects) altered nutrition;fatigue;nausea and vomiting Problem: Skin Integrity Impairment, Risk/Actual (Adult, Obstetrics) Goal: Skin Integrity/Wound Healing Patient will demonstrate the desired outcomes. Outcome: Ongoing (Interventions Implemented as Appropriate) 12/20/14 0657 Skin Integrity Impairment, Risk/Actual (Adult, Obstetrics) Skin Integrity/Wound Healing achieves outcome * Plan of Care - Lakesha Gil RN - 12/19/2014 5:44 PM EST Problem: General Plan of Care Goal: Plan of Care Review Outcome: Ongoing (Interventions Implemented as Appropriate) 12/19/14 1728 Coping/Psychosocial Response Interventions Plan of Care Reviewed with patient Plan of Care Review Plan of Care Outcome Status ongoing (interventions implemented as appropriate) Progress progress toward functional goals as expected OUTCOME EVALUATION NOTE: OUTCOME SUMMARY: Patient with DLBCL, admitted for Auto SCT Day -4. Patient received high dose etoposide this shift. Administered per [facility] chemotherapy policy and verified by two chemotherapy certified RNs. Tolerated infusion well. Tmax 37.5 so far. Discussed with home staging specialist and MDs work up if febrile and following order was written and is to be followed: If patient spikes during Etoposide or within 2 hours of the infusion, no septic work up is necessary. If she spikes four or more hours after the infusion, proceed with a septic work up. Order also placed for patient to get tylenol PRN for fever with specific administration instructions as followed: For fever spike after or during Etoposide infusion (do not give more than 2 hours after Etoposide infusion). Maximum dose of acetaminophen is 4000 mg from all sourcesin 24 hours. Patient receiving hydration per protocol see MAR for details. Received benadryl and solu-cortef per protocol before and half way through chemotherapy. Denied any ARVIZU or any other pain this shift. Continues with intermittent nausea received scheduled zofran and ativan throughout shift with PRN compazine 10mg IV given x 1 for breakthrough nausea. Patient tolerating meals throughout shift without issue. Reports constipation one small formed BM this shift. Discussed with home staging specialist and bowel regimen scheduled in APR. Hx of hemorrhoids. Sidra ordered PRN for sleep at night; worked well last night. Potassium replaced per protocol. Weight remains stable. May need lasix in AM with amount of fluid given with chemotherapy regimen today.Vitals stable and being taken every hour during chemotherapy. PLAN MOVING FORWARD: Continue transplant course per protocol. See above for if patient is febrile or needs tylenol. Monitor fluid status and watch for overload. Monitor vital signs closely. INDIVIDUALIZED FALL PREVENTION: Assistance: None Supervision: Independent - until pre medications of chemotherapy and chemotherapy started. Patient now stand by assistance and calling appropriately d/t IV benadryl and high dose etoposide. Surveillance: Purposeful hourly rounding. Maso monitoring in place. Fall precautions maintained. CPG GOAL OUTCOME EVALUATION: Goal: Individualization and Mutuality Outcome: Ongoing (Interventions Implemented as Appropriate) Goal: Fall Prevention-Safe Patient Handling Outcome: Ongoing (Interventions Implemented as Appropriate) 12/19/14 0900 Garza Fall Risk History of Falling 0 Secondary Diagnosis 15 Ambulatory Aids 0 Intravenous Therapy/Heparin/Saline Lock 20 Gait/Transferring 0 Mental Status 0 Score 35 OTHER Garza Fall Risk Med Safety Interventions Safety Precautions/Fall Reduction chemotherapeutic agent precautions;lighting adjusted for task/safety;nonskid shoes/slippers when out of bed Musculoskeletal Interventions Activity/Level of Assistance up ad fernanda;up in [place];independently;with stand by assist Positioning independent Goal: Infection Control Outcome: Ongoing (Interventions Implemented as Appropriate) 12/18/14201412/19/14 0900 Coping/Psychosocial Response Interventions Counseling emotional support provided;personal strengths integrated;problem solving facilitated;reassurance provided;verbalization of feelings encouraged -- Safety Interventions Isolation Precautions -- neutropenic precautions maintained Infection Prevention -- rest/sleep promoted;nutrition promoted;hydration promoted Goal: Discharge Needs Assessment Outcome: Ongoing (Interventions Implemented as Appropriate) Problem: Chemotherapy Effects (Adult) Goal: Signs and symptoms of listed potential problems will be absent or manageable (reference (Chemotherapy Effects (Adult)) CPG) Outcome: Ongoing (Interventions Implemented as Appropriate) 12/19/14 1728 Chemotherapy Effects Problems Assessed (Chemotherapy Effects) altered nutrition;constipation;fatigue;nausea and vomiting;thrombocytopenia Problem: Skin Integrity Impairment, Risk/Actual (Adult, Obstetrics) Goal: Identify Signs and Symptoms and Related Risk Factors Signs and symptoms and related risk factors are identified upon initiation of Human Response Clinical Practice Guideline (CPG) Outcome: Outcome (s) achieved Date Met: 12/19/14 Goal: Skin Integrity/Wound Healing Patient will demonstrate the desired outcomes. Outcome: Ongoing (Interventions Implemented as Appropriate) 12/19/14 1728 Skin Integrity Impairment, Risk/Actual (Adult, Obstetrics) Skin Integrity/Wound Healing achieves outcome Problem: Pain, Acute (Adult, Obstetrics) Goal: Identify Signs and Symptoms and Related Risk Factors Signs and symptoms and related risk factors are identified upon initiation of Human Response Clinical Practice Guideline (CPG) Outcome: Outcome (s) achieved Date Met: 12/19/14 Goal: Acceptable Pain Control/Comfort Level Patient will demonstrate the desired outcomes. Outcome: Outcome (s) achieved Date Met: 12/19/14 * Plan of Care - Didi Nathan - 12/19/2014 4:01 AM EST Problem: General Plan of Care Goal: Plan of Care Review Outcome: Ongoing (Interventions Implemented as Appropriate) 12/18/14 0406 12/18/142014 Coping/Psychosocial Response Interventions Plan of Care Reviewed with -- patient;daughter Plan of Care Review Plan of Care Outcome Status ongoing (interventions implemented as appropriate) -- Progress progress toward functional goals as expected -- OUTCOME EVALUATION NOTE: OUTCOME SUMMARY: Patient with DLBCL, admitted for Auto SCT, day -5/-4. Patient stated that BCNU ARVIZU has finally resolved, and with no other pain overnight. Patient does endorse very fatigued from lack of sleep from prior night. Patient requested ambien after GUEST SERVICE MANAGER made a suggestion about trying it overnight. MD made aware, ordered once time dose of 5mg ambien. Patient stated it had good effect on her. On scheduled zofran and ativan for nausea and anxiety, nausea well controlled overnight, no PRN antiemetics needed overnight. Patient stated she was able to tolerate cereal without nausea at the beginning of eveningshift. Bruising is noted on lower abdomen from Lovenox injections. PLAN MOVING FORWARD: Continue with transplant protocol. Patient to receive day-4 Etoposide at 1400 INDIVIDUALIZED FALL PREVENTION: Assistance: independent Supervision: Eyes on Surveillance: Hourly rounding, masimo monitoring, fall precaution in place CPG GOAL OUTCOME EVALUATION: Goal: Fall Prevention-Safe Patient Handling Outcome: Ongoing (Interventions Implemented as Appropriate) 12/18/142014 Garza Fall Risk History of Falling 0 Secondary Diagnosis 15 Ambulatory Aids 0 Intravenous Therapy/Heparin/Saline Lock 20 Gait/Transferring 0 Mental Status 0 Score 35 OTHER Garza Fall Risk Med Safety Interventions Safety Precautions/Fall Reduction chemotherapeutic agent precautions;environmental modification;fall reduction program maintained;lighting adjusted for task/safety;family at bedside;nonskid shoes/slippers when out of bed Musculoskeletal Interventions Activity/Level of Assistance up ad fernanda;ambulated;up in [place];independently;with stand by assist Positioning independent Goal: Infection Control Outcome: Ongoing (Interventions Implemented as Appropriate) 12/18/142014 Coping/Psychosocial Response Interventions Counseling emotional support provided;personal strengths integrated;problem solving facilitated;reassurance provided;verbalization of feelings encouraged Safety Interventions Isolation Precautions neutropenic precautions maintained Infection Prevention bronchial hygiene promoted;environmental surveillance;hydration promoted;nutrition promoted;promote handwashing;rest/sleep promoted Problem: Chemotherapy Effects (Adult) Goal: Signs and symptoms of listed potential problems will be absent or manageable (reference (Chemotherapy Effects (Adult)) CPG) Outcome: Ongoing (Interventions Implemented as Appropriate) 12/18/1440512/19/14 0341 Chemotherapy Effects Problems Assessed (Chemotherapy Effects) altered nutrition;anemia;constipation;diarrhea;fatigue;hypersensitivity reaction;mucositis;nausea and vomiting;neurotoxicity;neutropenia;thrombocytopenia -- Problems Present (Chemotherapy Effects) -- altered nutrition;fatigue;nausea and vomiting Problem: Skin Integrity Impairment, Risk/Actual (Adult, Obstetrics) Goal: Skin Integrity/Wound Healing Patient will demonstrate the desired outcomes. Outcome: Ongoing (Interventions Implemented as Appropriate) 12/18/14405 Skin Integrity Impairment, Risk/Actual (Adult, Obstetrics) Skin Integrity/Wound Healing achieves outcome Problem: Pain, Acute (Adult, Obstetrics) Goal: Acceptable Pain Control/Comfort Level Patient will demonstrate the desired outcomes. Outcome: Ongoing (Interventions Implemented as Appropriate) 12/19/14 0341 Pain, Acute (Adult, Obstetrics) Acceptable Pain Control/Comfort Level achieves outcome * Plan of Care - Shanna Deleon RN - 12/18/2014 4:20 AM EST Problem: General Plan of Care Goal: Plan of Care Review Outcome: Ongoing (Interventions Implemented as Appropriate) 12/17/14203312/18/14405 Coping/Psychosocial Response Interventions Plan of Care Reviewed with patient;daughter -- Plan of Care Review Plan of Care Outcome Status -- ongoing (interventions implemented as appropriate) Progress -- progress toward functional goals as expected OUTCOME EVALUATION NOTE: OUTCOME SUMMARY: Patient with DLBCL, day -6/-5 of Autologous SCT with CBV conditioning. Received Carmustine chemotherapy per protocol, chemotherapy checked and administered per policy, premedicated with zofran; received post hydration x2 hrs. Reported headache and restless legs during infusion; ativan given as scheduled and also given IV ativan prn with some relief. Headache treated with oxycodone x2 this shift with some relief but still present this morning. Pt reporting congestion, no cough noted. PLAN MOVING FORWARD: Continue per transplant protocol Monitor for chemotherapy side effects and treat as necessary Pain management INDIVIDUALIZED FALL PREVENTION: Assistance: none Supervision: independent Surveillance: hourly rounding, masimo, fall precautions, bed alarm CPG GOAL OUTCOME EVALUATION: Goal: Individualization and Mutuality Outcome: Ongoing (Interventions Implemented as Appropriate) Goal: Fall Prevention-Safe Patient Handling Outcome: Ongoing (Interventions Implemented as Appropriate) 12/17/142033 Garza Fall Risk History of Falling 0 Secondary Diagnosis 15 Ambulatory Aids 0 Intravenous Therapy/Heparin/Saline Lock 20 Gait/Transferring 0 Mental Status 0 Score 35 OTHER Garza Fall Risk Med Safety Interventions Safety Precautions/Fall Reduction chemotherapeutic agent precautions;fall reduction program maintained;family at bedside;lighting adjusted for task/safety;nonskid shoes/slippers when out of bed;room near unit station Musculoskeletal Interventions Activity/Level of Assistance up in room;with stand by assist Positioning independent Goal: Infection Control Outcome: Ongoing (Interventions Implemented as Appropriate) 12/17/14203312/18/14405 Coping/Psychosocial Response Interventions Counseling -- reassurance provided;understanding of situation facilitated;verbalization of feelingsencouraged Safety Interventions Isolation Precautions standard precautions maintained -- Infection Prevention rest/sleep promoted;environmental surveillance;hydration promoted;nutrition promoted;bronchial hygiene promoted;promote handwashing -- Goal: Discharge Needs Assessment Outcome: Ongoing (Interventions Implemented as Appropriate) 12/18/14405 Living Environment Transportation Available family or friend will provide Discharge Needs Assessment Concerns to be Addressed denies needs/concerns at this time Equipment Needed After Discharge none Discharge Planning Comments will be staying with a friend at discharge for about a week for support Self-Care Equipment Currently Used at Home none Problem: Chemotherapy Effects (Adult) Goal: Signs and symptoms of listed potential problems will be absent or manageable (reference (Chemotherapy Effects (Adult)) CPG) Outcome: Ongoing (Interventions Implemented as Appropriate) 12/18/14405 Chemotherapy Effects Problems Assessed (Chemotherapy Effects) altered nutrition;anemia;constipation;diarrhea;fatigue;hypersensitivity reaction;mucositis;nausea and vomiting;neurotoxicity;neutropenia;thrombocytopenia Problems Present (Chemotherapy Effects) fatigue Problem: Skin Integrity Impairment, Risk/Actual (Adult, Obstetrics) Goal: Skin Integrity/Wound Healing Patient will demonstrate the desired outcomes. Outcome: Ongoing (Interventions Implemented as Appropriate) 12/18/14405 Skin Integrity Impairment, Risk/Actual (Adult, Obstetrics) Skin Integrity/Wound Healing achieves outcome Problem: Pain, Acute (Adult, Obstetrics) Goal: Identify Signs and Symptoms and Related Risk Factors Signs and symptoms and related risk factors are identified upon initiation of Human Response Clinical Practice Guideline (CPG) Outcome: Ongoing (Interventions Implemented as Appropriate) Goal: Acceptable Pain Control/Comfort Level Patient will demonstrate the desired outcomes. Outcome: Ongoing (Interventions Implemented as Appropriate) 12/18/14405 Pain, Acute (Adult, Obstetrics) Acceptable Pain Control/Comfort Level unable to achieve outcome documented in this encounter Plan of Treatment Upcoming Encounters Date Type Department Care Team (Late st Contact Info) Description 12/07/2023 12:00 PM EDT Office Visit Dermatology at [facility] [address] [place] [address] Juan F Chappell MD [facility] [address] [place] [address] Pending Results Name Type Priority Associated Diagnoses Date /Time Transfuse 1 unit platelets, apheresis Blood Bank Routine 12/29/2014 5:24 AM EST Transfuse 1 unit platelets, apheresis Blood Bank Routine 12/29/2014 5:23 AM EST Scheduled Orders Name Type Priority Associated Diagnoses Orde r Schedule CBC (with Diff) Lab STAT Lymphoma 1 Occurrences starting 01/07/2015 until 01/07/2015 Comprehensive metabolic panel (non-fasting) Lab STAT Lymphoma 1 Occurrences starting 01/07/2015 until 01/07/2015 Lactate Dehydrogenase Lab STAT Lymphoma 1 Occurrences starting 01/07/2015 until 01/07/2015 CBC (with Diff) Lab STAT Lymphoma 1 Occurrences starting 01/07/2015 until 01/07/2015 Comprehensive metabolic panel (non-fasting) Lab STAT Lymphoma 1 Occurrences starting 01/07/2015 until 01/07/2015 Lactate Dehydrogenase Lab STAT Lymphoma 1 Occurrences starting 01/07/2015 until 01/07/2015 documented as of this encounter Procedures Procedure Name Priority Date/Time Associated Diagnosis Comments LAB SCAN 01/07/2015 12:00 AM EST LAB SCAN 01/07/2015 12:00 AM EST DIFFERENTIAL, MANUAL Routine 01/05/2015 5:05 AM EST HEMOGRAM Routine 01/05/2015 5:05 AM EST Lymphoma CBC (WITH DIFF) Routine 01/05/2015 5:05 AM EST Lymphoma PHOSPHORUS Routine 01/05/2015 5:05 AM EST Lymphoma MAGNESIUM Routine 01/05/2015 5:05 AM EST Lymphoma BASIC METABOLIC PANEL Routine 01/05/2015 5:05 AM EST Lymphoma DIFFERENTIAL, MANUAL Routine 01/04/2015 5:02 AM EST HEMOGRAM Routine 01/04/2015 5:02 AM EST ABO/RH TYPING Routine 01/04/2015 5:02 AM EST Lymphoma CBC (WITH DIFF) Routine 01/04/2015 5:02 AM EST ANTIBODY SCREEN Routine 01/04/2015 5:02 AM EST Lymphoma TYPE AND SCREEN ([facility]) Routine 01/04/2015 5:02 AM EST Lymphoma PHOSPHORUS Routine 01/04/2015 5:02 AM EST MAGNESIUM Routine 01/04/2015 5:02 AM EST BASIC METABOLIC PANEL Routine 01/04/2015 5:02 AM EST SCAN, PERIPHERAL BLOOD Routine 01/03/2015 4:53 AM EST HEMOGRAM Routine 01/03/2015 4:53 AM EST Lymphoma DIFFERENTIAL, AUTOMATED Routine 01/03/2015 4:53 AM EST Lymphoma CBC (WITH DIFF) Routine 01/03/2015 4:53 AM EST Lymphoma PHOSPHORUS Routine 01/03/2015 4:53 AM EST Lymphoma MAGNESIUM Routine 01/03/2015 4:53 AM EST Lymphoma BASIC METABOLIC PANEL Routine 01/03/2015 4:53 AM EST Lymphoma DIFFERENTIAL, MANUAL Routine 01/02/2015 4:50 AM EST HEMOGRAM Routine 01/02/2015 4:50 AM EST Lymphoma CBC (WITH DIFF) Routine 01/02/2015 4:50 AM EST Lymphoma PHOSPHORUS Routine 01/02/2015 4:50 AM EST Lymphoma MAGNESIUM Routine 01/02/2015 4:50 AM EST Lymphoma HEPATIC FUNCTION PANEL Routine 01/02/2015 4:50 AM EST BASIC METABOLIC PANEL Routine 01/02/2015 4:50 AM EST Lymphoma HEMOGRAM Routine 01/01/2015 4:36 AM EST PHOSPHORUS Routine 01/01/2015 4:35 AM EST Lymphoma MAGNESIUM Routine 01/01/2015 4:35 AM EST Lymphoma BASIC METABOLIC PANEL Routine 01/01/2015 4:35 AM EST Lymphoma TRANSFUSE RED BLOOD CELLS Routine 12/31/2014 11:34 AM EST PREPARE RBC Routine 12/31/2014 9:30 AM EST HEMOGRAM Routine 12/31/2014 4:30 AM EST Lymphoma ABO/RH TYPING Routine 12/31/2014 4:30 AM EST Lymphoma CBC (WITH DIFF) Routine 12/31/2014 4:30 AM EST Lymphoma ANTIBODY SCREEN Routine 12/31/2014 4:30 AM EST Lymphoma TYPE AND SCREEN ([facility]) Routine 12/31/2014 4:30 AM EST Lymphoma PHOSPHORUS Routine 12/31/2014 4:30 AM EST Lymphoma MAGNESIUM Routine 12/31/2014 4:30 AM EST Lymphoma BASIC METABOLIC PANEL Routine 12/31/2014 4:30 AM EST Lymphoma C. DIFFICILE SCREEN Routine 12/30/2014 1 2:29 PM EST HEMOGRAM Routine 12/30/2014 3:20 AM EST Lymphoma CBC (WITH DIFF) Routine 12/30/2014 3:20 AM EST Lymphoma PHOSPHORUS Routine 12/30/2014 3:20 AM EST Lymphoma MAGNESIUM Routine 12/30/2014 3:20 AM EST Lymphoma HEPATIC FUNCTION PANEL Routine 12/30/2014 3:20 AM EST BASIC METABOLIC PANEL Routine 12/30/2014 3:20 AM EST Lymphoma PLATELET COUNT Routine 12/29/2014 8:10 AM EST Lymphoma TRANSFUSE 1 UNIT PLATELET PHERESIS Routine 12/29/2014 5:23 AM EST PREPARE PLATELETS, APHERESIS STAT 12/29/2014 4:35 AM EST SCAN, PERIPHERAL BLOOD Routine 12/29/2014 3:30 AM EST HEMOGRAM Routine 12/29/2014 3:30 AM EST Lymphoma CBC (WITH DIFF) Routine 12/29/2014 3:30 AM EST Lymphoma PHOSPHORUS Routine 12/29/2014 3:30 AM EST Lymphoma MAGNESIUM Routine 12/29/2014 3:30 AM EST Lymphoma BASIC METABOLIC PANEL Routine 12/29/2014 3:30 AM EST Lymphoma HEMOGRAM Routine 12/28/2014 5:00 AM EST Lymphoma CBC (WITH DIFF) Routine 12/28/2014 5:00 AM EST Lymphoma PHOSPHORUS Routine 12/28/2014 5:00 AM EST Lymphoma MAGNESIUM Routine 12/28/2014 5:00 AM EST Lymphoma BASIC METABOLIC PANEL Routine 12/28/2014 5:00 AM EST Lymphoma HEMOGRAM Routine 12/27/2014 3:43 AM EST Lymphoma ABO/RH TYPING Routine 12/27/2014 3:43 AM EST Lymphoma CBC (WITH DIFF) Routine 12/27/2014 3:43 AM EST Lymphoma ANTIBODY SCREEN Routine 12/27/2014 3:43 AM EST Lymphoma TYPE AND SCREEN ([facility]) Routine 12/27/2014 3:43 AM EST Lymphoma PHOSPHORUS Routine 12/27/2014 3:43 AM EST Lymphoma MAGNESIUM Routine 12/27/2014 3:43 AM EST Lymphoma BASIC METABOLIC PANEL Routine 12/27/2014 3:43 AM EST Lymphoma IR LINE OR TUBE REMOVAL IN RECOVERY ROOM Routine 12/26/2014 1:49 PM EST SCAN, PERIPHERAL BLOOD Routine 12/26/2014 3:40 AM EST HEMOGRAM Routine 12/26/2014 3:40 AM EST Lymphoma CBC (WITH DIFF) Routine 12/26/2014 3:40 AM EST Lymphoma PHOSPHORUS Routine 12/26/2014 3:40 AM EST Lymphoma MAGNESIUM Routine 12/26/2014 3:40 AM EST Lymphoma HEPATIC FUNCTION PANEL Routine 12/26/2014 3:40 AM EST BASIC METABOLIC PANEL Routine 12/26/2014 3:40 AM EST Lymphoma HEMOGRAM Routine 12/25/2014 5:00 AM EST Lymphoma DIFFERENTIAL, AUTOMATED Routine 12/25/2014 5:00 AM EST Lymphoma CBC (WITH DIFF) Routine 12/25/2014 5:00 AM EST Lymphoma PHOSPHORUS Routine 12/25/2014 5:00 AM EST Lymphoma MAGNESIUM Routine 12/25/2014 5:00 AM EST Lymphoma BASIC METABOLIC PANEL Routine 12/25/2014 5:00 AM EST Lymphoma TRANSFUSION REACTION INTERP Routine 12/24/2014 5:49 PM EST ABO/RH TYPING Routine 12/24/2014 10:40 AM EST Lymphoma ANTIBODY SCREEN Routine 12/24/2014 10:40 AM EST Lymphoma TYPE AND SCREEN ([facility]) Routine 12/24/2014 10:40 AM EST Lymphoma PREPARE RBC Routine 12/24/2014 10:30 AM EST SCAN, PERIPHERAL BLOOD Routine 12/24/2014 4:30 AM EST HEMOGRAM Routine 12/24/2014 4:30 AM EST Lymphoma DIFFERENTIAL, AUTOMATED Routine 12/24/2014 4:30 AM EST Lymphoma CBC (WITH DIFF) Routine 12/24/2014 4:30 AM EST Lymphoma PHOSPHORUS Routine 12/24/2014 4:30 AM EST Lymphoma MAGNESIUM Routine 12/24/2014 4:30 AM EST Lymphoma BASIC METABOLIC PANEL Routine 12/24/2014 4:30 AM EST Lymphoma TRANSFUSION REACTION INTERP Routine 12/23/2014 4:13 PM EST URINALYSIS WITH REFLEX CULTURE Routine 12/23/2014 9:33 AM EST Lymphoma SCAN, PERIPHERAL BLOOD Routine 12/23/2014 2:00 AM EST HEMOGRAM Routine 12/23/2014 2:00 AM EST Lymphoma DIFFERENTIAL, AUTOMATED Routine 12/23/2014 2:00 AM EST Lymphoma CBC (WITH DIFF) Routine 12/23/2014 2:00 AM EST Lymphoma PHOSPHORUS Routine 12/23/2014 2:00 AM EST Lymphoma MAGNESIUM Routine 12/23/2014 2:00 AM EST Lymphoma HEPATIC FUNCTION PANEL Routine 12/23/2014 2:00 AM EST BASIC METABOLIC PANEL Routine 12/23/2014 2:00 AM EST Lymphoma PHOSPHORUS Routine 12/22/2014 2:45 AM EST Lymphoma MAGNESIUM Routine 12/22/2014 2:45 AM EST Lymphoma BASIC METABOLIC PANEL Routine 12/22/2014 2:45 AM EST Lymphoma EKG 12-LEAD Routine 12/21/2014 7:59 AM EST Chemotherapy adverse reaction, subsequent encounter PHOSPHORUS Routine 12/21/2014 4:45 AM EST Lymphoma MAGNESIUM Routine 12/21/2014 4:45 AM EST Lymphoma HEPATIC FUNCTION PANEL Routine 12/21/2014 4:45 AM EST BASIC METABOLIC PANEL Routine 12/21/2014 4:45 AM EST Lymphoma URINALYSIS WITH REFLEX CULTURE Routine 12/21/2014 4:00 AM EST Lymphoma HEMOGRAM Routine 12/20/2014 3:54 AM EST DIFFERENTIAL, AUTOMATED Routine 12/20/2014 3:54 AM EST CBC (WITH DIFF) Routine 12/20/2014 3:54 AM EST PHOSPHORUS Routine 12/20/2014 3:54 AM EST Lymphoma MAGNESIUM Routine 12/20/2014 3:54 AM EST Lymphoma BASIC METABOLIC PANEL Routine 12/20/2014 3:54 AM EST Lymphoma URINALYSIS WITH REFLEX CULTURE Routine 12/20/2014 2:02 AM EST XR CHEST ONE VIEW STAT 12/20/2014 12: 03 AM EST BLOOD CULTURE STAT 12/19/2014 11:42 PM EST BLOOD CULTURE STAT 12/19/2014 11:30 PM EST PHOSPHORUS Routine 12/19/2014 3:50 AM EST Lymphoma MAGNESIUM Routine 12/19/2014 3:50 AM EST Lymphoma BASIC METABOLIC PANEL Routine 12/19/2014 3:50 AM EST Lymphoma URINALYSIS WITH REFLEX CULTURE Routine 12/18/2014 7:50 PM EST URINALYSIS WITH REFLEX CULTURE Routine 12/18/2014 2:23 PM EST Lymphoma PHOSPHORUS Routine 12/18/2014 3:30 AM EST Lymphoma MAGNESIUM Routine 12/18/2014 3:30 AM EST Lymphoma BASIC METABOLIC PANEL Routine 12/18/2014 3:30 AM EST Lymphoma HEMOGRAM Routine 12/17/2014 2:00 PM EST DIFFERENTIAL, AUTOMATED Routine 12/17/2014 2:00 PM EST CBC (WITH DIFF) Routine 12/17/2014 2:00 PM EST documented in this encounter Results * SCAN DOC: LAB (01/07/2015 12:00 AM EST) Scanning Provider MEDIA MGR SCAN EXT O RDR/RSLT * SCAN DOC: LAB (01/07/2015 12:00 AM EST) Scanning Provider MEDIA MGR SCAN EXT O RDR/RSLT * (ABNORMAL) Differential, Manual (01/05/2015 5:05 AM EST) Neutrophil % Manual 85 % CERNER MILLENNIUM Band % 1 % CERNER MILLENNIUM Lymphocyte Manual 1 % CE RNER MILLENNIUM Monocyte Manual 7 % CERN ER MILLENNIUM Metamyelocyte Manual 2 % CERNER MILLENNIUM Myelocyte Manual 4 % CER NER MILLENNIUM Neutrophil Absolute (ANC) - Manual 13.7(H) 1.5 - 6.3 x10(3)/mc L CERNER MILLENNIUM Band Abs 0.2 0.2 - 0.6 x10(3)/mc L CERNER MILLENNIUM Neutrophil Absolute (ANC) - Automated 13.90(H) 1.50 - 6.30 x10(3)/mc L CERNER MILLENNIUM Lymph Absolute Manual 0.2(L) 1.0 - 3.6 x10(3)/mc L CERNER MILLENNIUM Monocyte Absolute Manual 1.1(H) 0.2 - 1.0 x10(3)/mc L CERNER MILLENNIUM Isabella Absolute Manual 0.3(H) 0.0 - 0.0 x10(3)/mc L CERNER MILLENNIUM Myelo Absolute Manual 0.6(H) 0.0 - 0.0 x10(3)/mc L CERNER MILLENNIUM Total Cells Ct 100 CERNE R MILLENNIUM Plat estimate Decreased CERNER MILLENNIUM RBC Morphology Normal CERNE R MILLENNIUM Blood specimen (specimen) 01/05/2015 5:05 AM EST 01/05/2015 5:33 AM EST Narrative Resulting Agency Comment Spec In Lab Justin Foote Jr., MD HEMATOLOGY ORDERABLE S CERNER MILLENNIUM * (ABNORMAL) Hemogram (01/05/2015 5:05 AM EST) White Blood Cell 16.2(H) 4.0 - 10.0 x10(3)/mc L CERNER MILLENNIUM Red Blood Cell 2.47(L) 3.93 - 5.22 x10(6)/mc L CERNER MILLENNIUM Hemoglobin 7.9(L) 11.2 - 15.7 gm/dL CERNER MILLENNIUM Hematocrit 22.1(L) 34.0 - 45.0 % CERNER MILLENNIUM Mean Cell Volume 89.5 79.0 - 94.0 fL CERNER MILLENNIUM Mean Cell Hemoglobin 32.0 26.6 - 32.2 pg CERNER MILLENNIUM Mean Cell Hemoglobin Concentration 35.7 32.0 - 36.5 gm/dL CERNER MILLENNIUM Platelet 22(L) 145 - 370 x10(3)/mc L CERNER MILLENNIUM RDW Standard Deviation 49.1(H) 35.0 - 46.0 fL CERNER MILLENNIUM RDW coefficient of variation 15.3(H) 10.9 - 14.4 % CERNER MILLENNIUM Mean Platelet Volume 9.3 9.0 - 12.0 fL CERNER MILLENNIUM Blood specimen (specimen) 01/05/2015 5:05 AM EST 01/05/2015 5:33 AM EST Narrative Resulting Agency Comment Spec In Lab Justin Foote Jr., MD HEMATOLOGY ORDERABLE S Performing Organization Address [facility] Co de Phone Number [facility] * Phosphorus (01/05/2015 5:05 AM EST) Phosphorus 3.0 2.5 - 4.5 mg/dL [facility] Blood specimen (specimen) 01/05/2015 5:05 AM EST 01/05/2015 5:33 AM EST Narrative Resulting Agency Comment Spec In Lab Justin Foote Jr., MD CHEMISTRY ORDERABLES Performing Organization Address [facility] de Phone Number [facility] * (ABNORMAL) Magnesium (01/05/2015 5:05 AM EST) Magnesium 0.64(L) 0.69 - 1.07 mmol/L [facility] Blood specimen (specimen) 01/05/2015 5:05 AM EST 01/05/2015 5:33 AM EST Narrative Resulting Agency Comment Spec In Lab Justin Foote Jr., MD CHEMISTRY ORDERABLES Performing Organization Address [facility] Phone Number [facility] * (ABNORMAL) Basic Metabolic Panel (non-fasting) (01/05/2015 5:05 AM EST) Glucose 96 65 - 199 mg/dL [facility] Comment:Diabetes: >=200 mg/d L plus symptoms Blood Urea Nitrogen 5(L) 8 - 18 mg/dL [facility] Creatinine 0.94 0.70 - 1.20 mg/dL CERNER MILLENNIUM Comment: Please note that the pediatric reference intervals supplied above were not validated at [facility]. Results from pediatric patients should be interpreted in conjunction to the patient's age, height and muscle mass. Sodium 143 135 - 145 mmol/L [facility] Potassium 3.7 3.5 - 5.0 mmol/L CERNER MILLENNIUM Comment: Please note: ??Patients with WBC >100,000 may have falsely elevated Potassium levels. ??For accurate Potassium quantification in these patients send serum separator tube (gold top) for subsequent determinations. ??Contact the Clinical Chemistry Laboratory if there are any questions. Chloride 100 98 - 107 mmol/L CERNER MILLENNIUM Carbon Dioxide 33(H) 22 - 31 mmol/L CERNER MILLENNIUM Anion Gap 10 5 - 15 mmol/L CERNER MILLENNIUM Calcium 9.2 8.5 - 10.5 mg/dL CERNER MILLENNIUM Est Glomerular Filtration Rate 60 >=60 CERNER MILLENNIUM Comment: This estimated GFR [...] the following links into your internet browser. [email or web address] Blood specimen (specimen) 01/05/2015 5:05 AM EST 01/05/2015 5:33 AM EST Narrative Resulting Agency Comment Spec In Lab Justin Foote Jr., MD CHEMISTRY ORDERABLES CERNER MILLENNIUM * (ABNORMAL) Differential, Manual (01/04/2015 5:02 AM EST) Neutrophil % Manual 77 % CERNER MILLENNIUM Band % 2 % CERNER MILLENNIUM Monocyte Manual 13 % CERN ER MILLENNIUM Eosinophil Manual 2 % CE RNER MILLENNIUM Metamyelocyte Manual 2 % CERNER MILLENNIUM Myelocyte Manual 4 % CER NER MILLENNIUM Neutrophil Absolute (ANC) - Manual 10.2(H) 1.5 - 6.3 x10(3)/mc L CERNER MILLENNIUM Band Abs 0.3 0.2 - 0.6 x10(3)/mc L CERNER MILLENNIUM Neutrophil Absolute (ANC) - Automated 10.45(H) 1.50 - 6.30 x10(3)/mc L CERNER MILLENNIUM Monocyte Absolute Manual 1.7(H) 0.2 - 1.0 x10(3)/mc L CERNER MILLENNIUM Eos Absolute Manual 0.3 0.0 - 0.5 x10(3)/mc L CERNER MILLENNIUM Isabella Absolute Manual 0.3(H) 0.0 - 0.0 x10(3)/mc L CERNER MILLENNIUM Myelo Absolute Manual 0.5(H) 0.0 - 0.0 x10(3)/mc L CERNER MILLENNIUM Total Cells Ct 100 CERNE R MILLENNIUM Plat estimate Decreased CERNER MILLENNIUM RBC Morphology Abnormal CERNE R MILLENNIUM Hypochromia Slight CERNER MILLENNIUM Blood specimen (specimen) 01/04/2015 5:02 AM EST 01/04/2015 5:22 AM EST Narrative Resulting Agency Comment Spec In Lab Kimberly Mondragon MD HEMATOLOGY ORDER AYO CERNER DEWAYNE[facility]NIUM * Antibody screen (01/04/2015 5:02 AM EST) Ab Screen Interp Negative CERDANIA BUCHANANENNIUM Expires at [id number] on: 01/07/2015 CERNER DEWAYNEENNIUM Blood specimen (specimen) 01/04/2015 5:02 AM EST 01/04/2015 5:21 AM EST Narrative Resulting Agency Comment Spec In Lab Justin Foote Jr., MD BLOOD BANK LAB ORDER AYO GIBRAN GEEIUM * ABO/Rh Typing (01/04/2015 5:02 AM EST) ABORH Type B Pos CERNER DEWAYNEENNIUM Blood specimen (specimen) 01/04/2015 5:02 AM EST 01/04/2015 5:21 AM EST Narrative Resulting Agency Comment Spec In Lab Justin Foote Jr., MD BLOOD BANK LAB ORDER AYO CERDANIA MILLENNIUM * (ABNORMAL) Hemogram (01/04/2015 5:02 AM EST) White Blood Cell 13.2(H) 4.0 - 10.0 x10(3)/mc L CERNER MILLENNIUM Red Blood Cell 2.53(L) 3.93 - 5.22 x10(6)/mc L CERNER MILLENNIUM Hemoglobin 7.8(L) 11.2 - 15.7 gm/dL CERNER MILLENNIUM Hematocrit 22.3(L) 34.0 - 45.0 % CERNER MILLENNIUM Mean Cell Volume 88.1 79.0 - 94.0 fL CERNER MILLENNIUM Mean Cell Hemoglobin 30.8 26.6 - 32.2 pg CERNER MILLENNIUM Mean Cell Hemoglobin Concentration 35.0 32.0 - 36.5 gm/dL CERNER MILLENNIUM Platelet 23(L) 145 - 370 x10(3)/mc L CERNER MILLENNIUM RDW Standard Deviation 47.4(H) 35.0 - 46.0 fL CERNER MILLENNIUM RDW coefficient of variation 14.8(H) 10.9 - 14.4 % CERNER MILLENNIUM Mean Platelet Volume 10.3 9.0 - 12.0 fL CERNER MILLENNIUM Blood specimen (specimen) 01/04/2015 5:02 AM EST 01/04/2015 5:22 AM EST Narrative Resulting Agency Comment Spec In Lab Kimberly Mondragon MD HEMATOLOGY ORDER AYO Performing Organization Address City/[facility] Co de Phone Number GIBRAN BUCHANANENNIUM * Phosphorus (01/04/2015 5:02 AM EST) Phosphorus 2.5 2.5 - 4.5 mg/dL CERNER MILLENNIUM Blood specimen (specimen) 01/04/2015 5:02 AM EST 01/04/2015 5:22 AM EST Narrative Resulting Agency Comment Spec In Lab Kimberly Mondragon MD CHEMISTRY ORDERA BLES CERNER MILLENNIUM * Magnesium (01/04/2015 5:02 AM EST) Magnesium 0.82 0.69 - 1.07 mmol/L CERNER MILLENNIUM Comment:result rechecked-TJ Blood specimen (specimen) 01/04/2015 5:02 AM EST 01/04/2015 5:22 AM EST Narrative Resulting Agency Comment Spec In Lab Kimberly Mondragon MD [facility]STRY [facility]A [facility] * (ABNORMAL) Basic Metabolic Panel (non-fasting) (01/04/2015 5:02 AM EST) Glucose 93 65 - 199 mg/dL CERNER MILLENNIUM Comment:Diabetes: >=200 mg/d L plus symptoms Blood Urea Nitrogen 4(L) 8 - 18 mg/dL CERNER MILLENNIUM Creatinine 0.90 0.70 - 1.20 mg/dL CERNER MILLENNIUM Comment: Please note that the pediatric reference intervals supplied above were not validated at [facility]. Results from pediatric patients should be interpreted [...] - 107 mmol/L CERNER MILLENNIUM Carbon Dioxide 31 22 - 31 mmol/L CERNER MILLENNIUM Anion Gap 11 5 - 15 mmol/L CERNER MILLENNIUM Calcium 9.3 8.5 - 10.5 mg/dL CERNER MILLENNIUM Est Glomerular Filtration Rate [...] the following links into your internet browser. [email or web address] Blood specimen (specimen) 01/04/2015 5:02 AM EST 01/04/2015 5:22 AM EST Narrative Resulting Agency Comment Spec In Lab Kimberly Mondragon MD CHEMISTRY ORDERA BLES Performing Organization Address City/[facility]/ZIP Co de Phone Number CERNER MILLENNIUM * Scan, Peripheral Blood (01/03/2015 4:53 AM EST) Plat estimate Decreased CERNER MILLENNIUM RBC Morphology Normal CERNE R MILLENNIUM Blood specimen (specimen) 01/03/2015 4:53 AM EST 01/03/2015 5:01 AM EST Narrative Resulting Agency Comment Spec In Lab Justin Foote Jr., MD HEMATOLOGY ORDERABLE S Performing Organization Address [facility] Co de Phone Number CERNER MILLENNIUM * (ABNORMAL) Differential, Automated (01/03/2015 4:53 AM EST) Neutrophil % 48.4 % CERNER MILLENNIUM Neutrophil Absolute 2.05 1.50 - 6.30 x10(3)/mc L CERNER MILLENNIUM Lymph % 18.6 % CERNER MILLENNIUM Lymphocytes Abs 0.8(L) 1.0 - 3.6 x10(3)/mc L CERNER MILLENNIUM Monocyte % 25.2 % CERNER MILLENNIUM Monocyte Abs 1.1(H) 0.2 - 1.0 x10(3)/mc L CERNER MILLENNIUM Eos % 0.0 % CERNER MILLENNIUM Eosinophils Abs 0.0 0.0 - 0.5 x10(3)/mc L CERNER MILLENNIUM Basophil % 0.7 % CERNER MILLENNIUM Baso Absolute 0.0 0.0 - 0.2 x10(3)/mc L CERNER MILLENNIUM Immature Gran % 7.10 % CERN ER MILLENNIUM Comment: Immature granulocytes(IG's)percentage and absolute count will include metamyelocytes, myelocytes, and promyelocytes. Blood smears from CBCs yielding IG's will be scanned manually for concordance. If this scan disagrees with the automated IG or if promyelocytes are noted, a manual differential will be performed. Immature Gran Absolute 0.30(H) 0.00 - 0.05 x10(3)/mc L CERNER MILLENNIUM Blood specimen (specimen) 01/03/2015 4:53 AM EST 01/03/2015 5:01 AM EST Narrative Resulting Agency Comment Spec In Lab Justin Foote Jr., MD HEMATOLOGY ORDERABLE S CERNER MILLENNIUM * (ABNORMAL) Hemogram (01/03/2015 4:53 AM EST) White Blood Cell 4.2 4.0 - 10.0 x10(3)/mc L CERNER MILLENNIUM Red Blood Cell 2.48(L) 3.93 - 5.22 x10(6)/mc L CERNER MILLENNIUM Hemoglobin 7.6(L) 11.2 - 15.7 gm/dL CERNER MILLENNIUM Hematocrit 21.7(L) 34.0 - 45.0 % CERNER MILLENNIUM Mean Cell Volume 87.5 79.0 - 94.0 fL CERNER MILLENNIUM Mean Cell Hemoglobin 30.6 26.6 - 32.2 pg CERNER MILLENNIUM Mean Cell Hemoglobin Concentration 35.0 32.0 - 36.5 gm/dL CERNER MILLENNIUM Platelet 18(Critic al) 145 - 370 x10(3)/mc L CERNER MILLENNIUM RDW Standard Deviation 46.8(H) 35.0 - 46.0 fL CERNER MILLENNIUM RDW coefficient of variation 14.7(H) 10.9 - 14.4 % CERNER MILLENNIUM Mean Platelet Volume 9.3 9.0 - 12.0 fL CERNER MILLENNIUM Blood specimen (specimen) 01/03/2015 4:53 AM EST 01/03/2015 5:01 AM EST Narrative Resulting Agency Comment Spec In Lab Justin Foote Jr., MD HEMATOLOGY ORDERABLE S Performing Organization Address [facility] de Phone Number GIBRAN GEEIUM * Phosphorus (01/03/2015 4:53 AM EST) Pathologist [facility] Phosphorus 2.9 2.5 - 4.5 mg/dL CERNER MILLENNIUM Blood specimen (specimen) 01/03/2015 4:53 AM EST 01/03/2015 5:01 AM EST Narrative Resulting Agency Comment Spec In Lab Justin Foote Jr., MD CHEMISTRY ORDERABLES Performing Organization Address [facility] de Phone Number [facility] * (ABNORMAL) Magnesium (01/03/2015 4:53 AM EST) Pathologist [facility] Magnesium 0.54(L) 0.69 - 1.07 mmol/L [facility] Blood specimen (specimen) 01/03/2015 4:53 AM EST 01/03/2015 5:01 AM EST Narrative Resulting Agency Comment Spec In Lab Justin Foote Jr., MD CHEMISTRY ORDERABLES Performing Organization Address [facility] de Phone Number [facility] * (ABNORMAL) Basic Metabolic Panel (non-fasting) (01/03/2015 4:53 AM EST) Pathologist [facility] Glucose 83 65 - 199 mg/dL [facility]ILL[facility]UM Comment:Diabetes: >=200 mg/d L plus symptoms Blood Urea Nitrogen 5(L) 8 - 18 mg/dL CERNER MILLENNIUM Creatinine 0.85 0.70 - 1.20 mg/dL CERNER MILLENNIUM Comment: Please note that the pediatric reference intervals supplied above were not validated at [facility]. Results from pediatric patients should be interpreted in conjunction to the patient's age, height and muscle mass. Sodium 139 135 - 145 mmol/L CERNER MILLENNIUM Potassium 3.9 3.5 - 5.0 mmol/L CERNER MILLENNIUM Comment: Please note: ??Patients with WBC >100,000 may have falsely elevated Potassium levels. ??For accurate Potassium quantification in these patients send serum separator tube (gold top) for subsequent determinations. ??Contact the Clinical Chemistry Laboratory if there are any questions. Chloride 98 98 - 107 mmol/L CERNER MILLENNIUM Carbon Dioxide 30 22 - 31 mmol/L CERNER MILLENNIUM Anion Gap 11 5 - 15 mmol/L CERNER MILLENNIUM Calcium 9.3 8.5 - 10.5 mg/dL CERNER MILLENNIUM Est Glomerular Filtration Rate [...] the following links into your internet browser. [email or web address] Blood specimen (specimen) 01/03/2015 4:53 AM EST 01/03/2015 5:01 AM EST Narrative Resulting Agency Comment Spec In Lab Justin Foote Jr., MD CHEMISTRY ORDERABLES CERNER MILLENNIUM * (ABNORMAL) Differential, Manual (01/02/2015 4:50 AM EST) Neutrophil % Manual 51 % CERNER MILLENNIUM Band % 1 % CERNER MILLENNIUM Lymphocyte Manual 17 % CE RNER MILLENNIUM Monocyte Manual 27 % CERN ER MILLENNIUM Basophil Manual 1 % CERN ER MILLENNIUM Metamyelocyte Manual 3 % CERNER MILLENNIUM Neutrophil Absolute (ANC) - Manual 0.4(L) 1.5 - 6.3 x10(3)/m cL CERNER MILLENNIUM Band Abs 0.0(L) 0.2 - 0.6 x10(3)/m cL CERNER MILLENNIUM Neutrophil Absolute (ANC) - Automated 0.39(Critical ) 1.50 - 6.30 x10(3)/m cL CERNER MILLENNIUM Lymph Absolute Manual 0.1(L) 1.0 - 3.6 x10(3)/m cL CERNER MILLENNIUM Monocyte Absolute Manual 0.2 0.2 - 1.0 x10(3)/m cL CERNER MILLENNIUM Baso Absolute Manual 0.0 0.0 - 0.2 x10(3)/m cL CERNER MILLENNIUM Isabella Absolute Manual 0.0 0.0 - 0.0 x10(3)/m cL CERNER MILLENNIUM Nucleated Red Cell Manual 3 % CERNER MILLENNIUM Total Cells Ct 100 CERNE R MILLENNIUM Plat estimate Decreased CERNER MILLENNIUM RBC Morphology Normal CERNE R MILLENNIUM nRBC Abs 0.020(H) 0.000 - 0.012 x10(3)/m cL CERNER MILLENNIUM Blood specimen (specimen) 01/02/2015 4:50 AM EST 01/02/2015 4:53 AM EST Narrative Resulting Agency Comment Spec In Lab Justin Foote Jr., MD HEMATOLOGY ORDERABLE S Performing Organization Address City/[facility] Co de Phone Number CERNER MILLENNIUM * (ABNORMAL) Hepatic Function Panel (01/02/2015 4:50 AM EST) Protein, Total 5.9(L) 6.1 - 8.0 gm/dL CERNER MILLENNIUM Albumin 3.6 3.2 - 5.2 gm/dL CERNER MILLENNIUM Aspartate Aminotransferase 18 0 - 30 unit/L CERNER MILLENNIUM Alanine Aminotransferase 21 0 - 30 unit/L CERNER MILLENNIUM Alkaline Phosphatase 153(H) 40 - 104 unit/L CERNER MILLENNIUM Bilirubin, Total 0.5 0.2 - 1.3 mg/dL CERNER MILLENNIUM Bilirubin, Direct 0.2 0.0 - 0.3 mg/dL CERNER MILLENNIUM Blood specimen (specimen) Venous Draw / Unknown 01/02/2015 4:50 AM EST 01/02/2015 4:53 AM EST Narrative Resulting Agency Comment Spec In Lab Justin Foote Jr., MD CHEMISTRY ORDERABLES CERNER DEWAYNEENNIUM * (ABNORMAL) Hemogram (01/02/2015 4:50 AM EST) White Blood Cell 0.8(Criti jenaro) 4.0 - 10.0 x10(3)/mc L CERNER MILLENNIUM Red Blood Cell 2.50(L) 3.93 - 5.22 x10(6)/mc L CERNER MILLENNIUM Hemoglobin 7.7(L) 11.2 - 15.7 gm/dL CERNER MILLENNIUM Hematocrit 21.4(L) 34.0 - 45.0 % CERNER MILLENNIUM Mean Cell Volume 85.6 79.0 - 94.0 fL CERNER MILLENNIUM Mean Cell Hemoglobin 30.8 26.6 - 32.2 pg CERNER MILLENNIUM Mean Cell Hemoglobin Concentration 36.0 32.0 - 36.5 gm/dL CERNER MILLENNIUM Platelet 11(Critic al) 145 - 370 x10(3)/mc L CERNER MILLENNIUM RDW Standard Deviation 46.8(H) 35.0 - 46.0 fL CERNER MILLENNIUM RDW coefficient of variation 14.7(H) 10.9 - 14.4 % CERNER MILLENNIUM Mean Platelet Volume 8.9(L) 9.0 - 12.0 fL CERNER MILLENNIUM Blood specimen (specimen) 01/02/2015 4:50 AM EST 01/02/2015 4:53 AM EST Narrative Resulting Agency Comment Spec In Lab Justin Foote Jr., MD HEMATOLOGY ORDERABLE S Performing Organization Address City/[facility] Co de Phone Number CERDANIA BUCHANANENNIUM * Phosphorus (01/02/2015 4:50 AM EST) Phosphorus 2.8 2.5 - 4.5 mg/dL CERNER MILLENNIUM Blood specimen (specimen) 01/02/2015 4:50 AM EST 01/02/2015 4:53 AM EST Narrative Resulting Agency Comment Spec In Lab Justin Foote Jr., MD CHEMISTRY ORDERABLES CERNER DEWAYNEENNIUM * Magnesium (01/02/2015 4:50 AM EST) Magnesium 0.71 0.69 - 1.07 mmol/L CERNER MILLENNIUM Blood specimen (specimen) 01/02/2015 4:50 AM EST 01/02/2015 4:53 AM EST Narrative Resulting Agency Comment Spec In Lab Justin Foote Jr., MD CHEMISTRY ORDERABLES CERNER MILLENNIUM * (ABNORMAL) Basic Metabolic Panel (non-fasting) (01/02/2015 4:50 AM EST) Glucose 88 65 - 199 mg/dL CERNER MILLENNIUM Comment:Diabetes: >=200 mg/d L plus symptoms Blood Urea Nitrogen 7(L) 8 - 18 mg/dL CERNER MILLENNIUM Creatinine 0.83 0.70 - 1.20 mg/dL CERNER MILLENNIUM Comment: Please note that the pediatric reference intervals supplied above were not validated at [facility]. Results from pediatric patients should be interpreted in conjunction to the patient's age, height and muscle mass. Sodium 137 135 - 145 mmol/L CERNER MILLENNIUM Potassium 3.7 3.5 - 5.0 mmol/L CERNER MILLENNIUM Comment: Please note: ??Patients with WBC >100,000 may have falsely elevated Potassium levels. ??For accurate Potassium quantification in these patients send serum separator tube (gold top) for subsequent determinations. ??Contact the Clinical Chemistry Laboratory if there are any questions. Chloride 95(L) 98 - 107 mmol/L CERNER MILLENNIUM Carbon Dioxide 30 22 - 31 mmol/L CERNER MILLENNIUM Anion Gap 12 5 - 15 mmol/L CERNER MILLENNIUM Calcium 9.3 8.5 - 10.5 mg/dL CERNER MILLENNIUM Est Glomerular Filtration Rate [...] the following links into your internet browser. [email or web address] Blood specimen (specimen) 01/02/2015 4:50 AM EST 01/02/2015 4:53 AM EST Narrative Resulting Agency Comment Spec In Lab Justin Foote Jr., MD CHEMISTRY ORDERABLES CERNER MILLENNIUM * (ABNORMAL) Hemogram (01/01/2015 4:36 AM EST) White Blood Cell 0.1(Criti jenaro) 4.0 - 10.0 x10(3)/mc L CERNER MILLENNIUM Comment:Diff not performed-W BC Less than or equal to 0.25. Red Blood Cell 2.43(L) 3.93 - 5.22 x10(6)/mc L CERNER MILLENNIUM Hemoglobin 7.7(L) 11.2 - 15.7 gm/dL CERNER MILLENNIUM Hematocrit 20.9(L) 34.0 - 45.0 % CERNER MILLENNIUM Mean Cell Volume 86.0 79.0 - 94.0 fL CERNER MILLENNIUM Mean Cell Hemoglobin 31.7 26.6 - 32.2 pg CERNER MILLENNIUM Mean Cell Hemoglobin Concentration 36.8(H) 32.0 - 36.5 gm/dL CERNER MILLENNIUM Platelet 11(Critic al) 145 - 370 x10(3)/mc L CERNER MILLENNIUM RDW Standard Deviation 49.2(H) 35.0 - 46.0 fL CERNER MILLENNIUM RDW coefficient of variation 15.5(H) 10.9 - 14.4 % CERNER MILLENNIUM Mean Platelet Volume 9.9 9.0 - 12.0 fL CERNER MILLENNIUM Blood specimen (specimen) Venous Draw / Unknown 01/01/2015 4:36 AM EST 01/01/2015 4:36 AM EST Narrative Resulting Agency Comment Spec In Lab Justin Foote Jr., MD HEMATOLOGY ORDERABLE S CERNER MILLENNIUM * Phosphorus (01/01/2015 4:35 AM EST) Phosphorus 2.9 2.5 - 4.5 mg/dL CERNER MILLENNIUM Blood specimen (specimen) 01/01/2015 4:35 AM EST 01/01/2015 4:54 AM EST Narrative Resulting Agency Comment Spec In Lab Justin Foote Jr., MD CHEMISTRY ORDERABLES Performing Organization Address [facility] de Phone Number CERNER MILLENNIUM * (ABNORMAL) Magnesium (01/01/2015 4:35 AM EST) Magnesium 0.59(L) 0.69 - 1.07 mmol/L CERNER MILLENNIUM Blood specimen (specimen) 01/01/2015 4:35 AM EST 01/01/2015 4:54 AM EST Narrative Resulting Agency Comment Spec In Lab Justin Foote Jr., MD CHEMISTRY ORDERABLES Performing Organization Address [facility] de Phone Number CERNER MILLENNIUM * (ABNORMAL) Basic Metabolic Panel (non-fasting) (01/01/2015 4:35 AM EST) Glucose 86 65 - 199 mg/dL CERNER MILLENNIUM Comment:Diabetes: >=200 mg/d L plus symptoms Blood Urea Nitrogen 8 8 - 18 mg/dL CERNER MILLENNIUM Creatinine 0.66(L) 0.70 - 1.20 mg/dL CERNER MILLENNIUM Comment: Please note that the pediatric reference intervals supplied above were not validated at [facility]. Results from pediatric patients should be interpreted in conjunction to the patient's age, height and muscle mass. Sodium 139 135 - 145 mmol/L CERNER MILLENNIUM Potassium 3.7 3.5 - 5.0 mmol/L CERNER MILLENNIUM Comment: Please note: ??Patients with WBC >100,000 may have falsely elevated Potassium levels. ??For accurate Potassium quantification in these patients send serum separator tube (gold top) for subsequent determinations. ??Contact the Clinical Chemistry Laboratory if there are any questions. Chloride 99 98 - 107 mmol/L CERNER MILLENNIUM Carbon Dioxide 31 22 - 31 mmol/L CERNER MILLENNIUM Anion Gap 9 5 - 15 mmol/L CERDANIA GEEIUM Calcium 9.3 8.5 - 10.5 mg/dL CERNER MILLENNIUM Est Glomerular Filtration Rate >60 >=60 CERDANIA GEEIUM Comment: This estimated GFR (eGFR) value was [...] the following links into your internet browser. [email or web address] Blood specimen (specimen) 01/01/2015 4:35 AM EST 01/01/2015 4:54 AM EST Narrative Resulting Agency Comment Spec In Lab Justin Foote Jr., MD CHEMISTRY ORDERABLES GIBRAN COREAS * Transfuse RBC (12/31/2014 1:49 PM EST) Kimberly Mondragon MD NURSING TREATMEN T ORDERABLES - BLOOD ADMIN * Transfuse RBC (12/31/2014 1:49 PM EST) Kimberly Mondragon MD NURSING TREATMEN T ORDERABLES - BLOOD ADMIN * Prepare RBC (12/31/2014 9:30 AM EST) Dispensed? Yes GIBRAN COREAS Blood specimen (specimen) 12/31/2014 9:30 AM EST 12/31/2014 9:25 AM EST Kimberly Mondragon MD BLOOD BANK PRODU CT ORDERABLES GIBRAN COREAS * Antibody screen (12/31/2014 4:30 AM EST) Ab Screen Interp Negative GIBRAN COREAS Expires at [id number] on: 01/03/2015 CERNER MILLENNIUM Blood specimen (specimen) 12/31/2014 4:30 AM EST 12/31/2014 5:08 AM EST Narrative Resulting Agency Comment Spec In Lab Justin Foote Jr., MD BLOOD BANK LAB ORDER AYO CERNER MILLENNIUM * ABO/Rh Typing (12/31/2014 4:30 AM EST) ABORH Type B Pos CERNER MILLENNIUM Blood specimen (specimen) 12/31/2014 4:30 AM EST 12/31/2014 5:08 AM EST Narrative Resulting Agency Comment Spec In Lab Justin Foote Jr., MD BLOOD BANK LAB ORDER AYO Performing Organization Address City/[facility] Co de Phone Number CERNER MILLENNIUM * (ABNORMAL) Hemogram (12/31/2014 4:30 AM EST) White Blood Cell 0.0(Criti jenaro) 4.0 - 10.0 x10(3)/mc L CERNER MILLENNIUM Comment:Diff not performed-W BC Less than or equal to 0.25. Red Blood Cell 2.03(L) 3.93 - 5.22 x10(6)/mc L CERNER MILLENNIUM Hemoglobin 6.5(L) 11.2 - 15.7 gm/dL CERNER MILLENNIUM Hematocrit 17.9(L) 34.0 - 45.0 % CERNER MILLENNIUM Mean Cell Volume 88.2 79.0 - 94.0 fL CERNER MILLENNIUM Mean Cell Hemoglobin 32.0 26.6 - 32.2 pg CERNER MILLENNIUM Mean Cell Hemoglobin Concentration 36.3 32.0 - 36.5 gm/dL CERNER MILLENNIUM Platelet 14(Critic al) 145 - 370 x10(3)/mc L CERNER MILLENNIUM RDW Standard Deviation 46.2(H) 35.0 - 46.0 fL CERNER MILLENNIUM RDW coefficient of variation 14.3 10.9 - 14.4 % CERNER MILLENNIUM Mean Platelet Volume 10.2 9.0 - 12.0 fL CERNER MILLENNIUM Blood specimen (specimen) 12/31/2014 4:30 AM EST 12/31/2014 4:59 AM EST Narrative Resulting Agency Comment Spec In Lab Justin Foote Jr., MD HEMATOLOGY ORDERABLE S Performing Organization Address [facility] Phone Number [facility] GERARDI[facility] * Phosphorus (12/31/2014 4:30 AM EST) Phosphorus 3.0 2.5 - 4.5 mg/dL [facility] Blood specimen (specimen) 12/31/2014 4:30 AM EST 12/31/2014 4:59 AM EST Narrative Resulting Agency Comment Spec In Lab Justin Foote Jr., MD CHEMISTRY ORDERABLES Performing Organization Address [facility] Phone Number [facility] * Magnesium (12/31/2014 4:30 AM EST) Magnesium 0.73 0.69 - 1.07 mmol/L [facility] Blood specimen (specimen) 12/31/2014 4:30 AM EST 12/31/2014 4:59 AM EST Narrative Resulting Agency Comment Spec In Lab Justin Foote Jr., MD CHEMISTRY ORDERABLES Performing Organization Address [facility] Phone Number [facility] * (ABNORMAL) Basic Metabolic Panel (non-fasting) (12/31/2014 4:30 AM EST) Glucose 94 65 - 199 mg/dL [facility] Comment:Diabetes: >=200 mg/d L plus symptoms Blood Urea Nitrogen 12 8 - 18 mg/dL [facility] MILLENNIUM Creatinine 0.77 0.70 - 1.20 mg/dL [facility] MILLENNIUM Comment: Please note that the pediatric reference intervals supplied above were not validated at [facility]. Results from pediatric patients should be interpreted in conjunction to the patient's age, height and muscle mass. Sodium 139 135 - 145 mmol/L [facility] Potassium 3.5 3.5 - 5.0 mmol/L [facility] MILLENNIUM Comment: Please note: ??Patients with WBC >100,000 may have falsely elevated Potassium levels. ??For accurate Potassium quantification in these patients send serum separator tube (gold top) for subsequent determinations. ??Contact the Clinical Chemistry Laboratory if there are any questions. Chloride 96(L) 98 - 107 mmol/L CERNER MILLENNIUM Carbon Dioxide 31 22 - 31 mmol/L CERNER MILLENNIUM Anion Gap 12 5 - 15 mmol/L CERNER MILLENNIUM Calcium 9.2 8.5 - 10.5 mg/dL CERNER MILLENNIUM Est Glomerular Filtration Rate [...] the following links into your internet browser. [email or web address] Blood specimen (specimen) 12/31/2014 4:30 AM EST 12/31/2014 4:59 AM EST Narrative Resulting Agency Comment Spec In Lab Justin Foote Jr., MD CHEMISTRY ORDERABLES Performing Organization Address [facility] Co de Phone Number [facility] * C. Difficile Screen (12/30/2014 12:29 PM EST) C Diff Interp Negative Negative [facility] Stool specimen (specimen) 12/30/2014 12:29 PM EST 12/30/2014 12:48 PM EST Narrative Resulting Agency Comment Spec In Lab Kimberly Mondragon MD MICROBIOLOGY - G ENERAL ORDERABLES Performing Organization Address [facility] Co de Phone Number [facility] * (ABNORMAL) Hepatic Function Panel (12/30/2014 3:20 AM EST) Protein, Total 6.0(L) 6.1 - 8.0 gm/dL CERNER MILLENNIUM Albumin 3.7 3.2 - 5.2 gm/dL CERNER MILLENNIUM Aspartate Aminotransferase 12 0 - 30 unit/L CERNER MILLENNIUM Alanine Aminotransferase 24 0 - 30 unit/L CERNER MILLENNIUM Alkaline Phosphatase 96 40 - 104 unit/L CERNER MILLENNIUM Bilirubin, Total 0.5 0.2 - 1.3 mg/dL CERNER MILLENNIUM Bilirubin, Direct 0.2 0.0 - 0.3 mg/dL CERNER MILLENNIUM Blood specimen (specimen) Venous Draw / Unknown 12/30/2014 3:20 AM EST 12/30/2014 3:49 AM EST Narrative Resulting Agency Comment Spec In Lab Justin Foote Jr., MD CHEMISTRY ORDERABLES CERNER MILLENNIUM * (ABNORMAL) Hemogram (12/30/2014 3:20 AM EST) White Blood Cell 0.0(Criti jenaro) 4.0 - 10.0 x10(3)/mc L CERNER MILLENNIUM Comment:Diff not performed-W BC Less than or equal to 0.25. Red Blood Cell 2.33(L) 3.93 - 5.22 x10(6)/mc L CERNER MILLENNIUM Hemoglobin 7.5(L) 11.2 - 15.7 gm/dL CERNER MILLENNIUM Hematocrit 20.9(L) 34.0 - 45.0 % CERNER MILLENNIUM Mean Cell Volume 89.7 79.0 - 94.0 fL CERNER MILLENNIUM Mean Cell Hemoglobin 32.2 26.6 - 32.2 pg CERNER MILLENNIUM Mean Cell Hemoglobin Concentration 35.9 32.0 - 36.5 gm/dL CERNER MILLENNIUM Platelet 22(L) 145 - 370 x10(3)/mc L CERNER MILLENNIUM RDW Standard Deviation 48.8(H) 35.0 - 46.0 fL CERNER MILLENNIUM RDW coefficient of variation 14.7(H) 10.9 - 14.4 % CERNER MILLENNIUM Mean Platelet Volume 9.6 9.0 - 12.0 fL CERNER MILLENNIUM Blood specimen (specimen) 12/30/2014 3:20 AM EST 12/30/2014 3:49 AM EST Narrative Resulting Agency Comment Spec In Lab Justin Foote Jr., MD HEMATOLOGY ORDERABLE S Performing Organization Address [facility] Phone Number [facility] * Phosphorus (12/30/2014 3:20 AM EST) Phosphorus 3.6 2.5 - 4.5 mg/dL [facility] Blood specimen (specimen) 12/30/2014 3:20 AM EST 12/30/2014 3:49 AM EST Narrative Resulting Agency Comment Spec In Lab Justin Foote Jr., MD CHEMISTRY ORDERABLES Performing Organization Address [facility] Phone Number [facility] * (ABNORMAL) Magnesium (12/30/2014 3:20 AM EST) Pathologist [facility] Magnesium 0.63(L) 0.69 - 1.07 mmol/L [facility] MILLENNIUM Blood specimen (specimen) 12/30/2014 3:20 AM EST 12/30/2014 3:49 AM EST Narrative Resulting Agency Comment Spec In Lab Justin Foote Jr., MD CHEMISTRY ORDERABLES Performing Organization Address [facility] Phone Number [facility] * (ABNORMAL) Basic Metabolic Panel (non-fasting) (12/30/2014 3:20 AM EST) Glucose 93 65 - 199 mg/dL [facility] MILL[facility]UM Comment:Diabetes: >=200 mg/d L plus symptoms Blood Urea Nitrogen 15 8 - 18 mg/dL CERNER MILLENNIUM Creatinine 0.84 0.70 - 1.20 mg/dL CERNER MILLENNIUM Comment: Please note that the pediatric reference intervals supplied above were not validated at [facility]. Results from pediatric patients should be interpreted in conjunction to the patient's age, height and muscle mass. Sodium 137 135 - 145 mmol/L [facility] MILLENNIUM Potassium 4.2 3.5 - 5.0 mmol/L [facility] Comment: Please note: ??Patients with WBC >100,000 may have falsely elevated Potassium levels. ??For accurate Potassium quantification in these patients send serum separator tube (gold top) for subsequent determinations. ??Contact the Clinical Chemistry Laboratory if there are any questions. Chloride 97(L) 98 - 107 mmol/L CERNER MILLENNIUM Carbon Dioxide 31 22 - 31 mmol/L CERNER MILLENNIUM Anion Gap 9 5 - 15 mmol/L CERNER MILLENNIUM Calcium 9.3 8.5 - 10.5 mg/dL CERNER MILLENNIUM Est Glomerular Filtration Rate [...] the following links into your internet browser. [email or web address] Blood specimen (specimen) 12/30/2014 3:20 AM EST 12/30/2014 3:49 AM EST Narrative Resulting Agency Comment Spec In Lab Justin Foote Jr., MD CHEMISTRY ORDERABLES Performing Organization Address [facility] de Phone Number [facility] * (ABNORMAL) Platelet count (12/29/2014 8:10 AM EST) Platelet 23(L) 145 - 370 x10(3)/mcL CERNER MILLENNIUM Blood specimen (specimen) 12/29/2014 8:10 AM EST 12/29/2014 8:23 AM EST Narrative Resulting Agency Comment Spec In Lab Justin Foote Jr., MD HEMATOLOGY ORDERABLE S Performing Organization Address City/[facility] Co de Phone Number [facility] * Transfuse RBC (12/29/2014 6:36 AM EST) Kimberly Mondragon MD NURSING TREATMEN T ORDERABLES - BLOOD ADMIN * Prepare Platelets, Apheresis (12/29/2014 4:35 AM EST) Dispensed? Yes CERNER DEWAYNEENNIUM Blood specimen (specimen) 12/29/2014 4:35 AM EST 12/29/2014 4:34 AM EST Claude Wilkerson MD BLOOD BANK PRODUCT O RDERABLES Performing Organization Address City/[facility]/ZIP Co de Phone Number GIBRAN BUCHANANENNIUM * Scan, Peripheral Blood (12/29/2014 3:30 AM EST) Plat estimate Decreased CERNER MILLENNIUM RBC Morphology Normal CERNE R MILLENNIUM Blood specimen (specimen) 12/29/2014 3:30 AM EST 12/29/2014 3:47 AM EST Narrative Resulting Agency Comment Spec In Lab Justin Foote Jr., MD HEMATOLOGY ORDERABLE S Performing Organization Address City/[facility] Co de Phone Number CERDANIA BUCHANANENNIUM * (ABNORMAL) Hemogram (12/29/2014 3:30 AM EST) White Blood Cell 0.0(Criti jenaro) 4.0 - 10.0 x10(3)/mc L CERNER MILLENNIUM Comment:Diff not performed-W BC Less than or equal to 0.25. Red Blood Cell 2.26(L) 3.93 - 5.22 x10(6)/mc L CERNER MILLENNIUM Hemoglobin 7.1(L) 11.2 - 15.7 gm/dL CERNER MILLENNIUM Hematocrit 20.5(L) 34.0 - 45.0 % CERNER MILLENNIUM Mean Cell Volume 90.7 79.0 - 94.0 fL CERNER MILLENNIUM Mean Cell Hemoglobin 31.4 26.6 - 32.2 pg CERNER MILLENNIUM Mean Cell Hemoglobin Concentration 34.6 32.0 - 36.5 gm/dL CERNER MILLENNIUM Platelet 4(Critica l) 145 - 370 x10(3)/mc L CERNER MILLENNIUM Comment: This result has been called to YAHAIRA VILLAGRAN by MALAIKA YI on 12 29 2014 at [id number], and has been read back. RDW Standard Deviation 49.0(H) 35.0 - 46.0 fL [facility] RDW coefficient of variation 14.6(H) 10.9 - 14.4 % [facility]ILL[facility] Mean Platelet Volume 8.0(L) 9.0 - 12.0 fL [facility] MILLENNIUM Blood specimen (specimen) 12/29/2014 3:30 AM EST 12/29/2014 3:47 AM EST Narrative Resulting Agency Comment Spec In Lab Justin Foote Jr., MD HEMATOLOGY ORDERABLE S Performing Organization Address [facility] Co de Phone Number [facility] * Phosphorus (12/29/2014 3:30 AM EST) [facility] Phosphorus 3.7 2.5 - 4.5 mg/dL [facility] Blood specimen (specimen) 12/29/2014 3:30 AM EST 12/29/2014 3:47 AM EST Narrative Resulting Agency Comment Spec In Lab Justin Foote Jr., MD CHEMISTRY ORDERABLES Performing Organization Address [facility] Co de Phone Number [facility] * Magnesium (12/29/2014 3:30 AM EST) [facility] Magnesium 0.80 0.69 - 1.07 mmol/L [facility] Blood specimen (specimen) 12/29/2014 3:30 AM EST 12/29/2014 3:47 AM EST Narrative Resulting Agency Comment Spec In Lab Justin Foote Jr., MD CHEMISTRY ORDERABLES Performing Organization Address [facility] Co de Phone Number [facility] * Basic Metabolic Panel (non-fasting) (12/29/2014 3:30 AM EST) Pathologist [facility] Glucose 101 65 - 199 mg/dL [facility] Comment:Diabetes: >=200 mg/d L plus symptoms Blood Urea Nitrogen 14 8 - 18 mg/dL [facility] Creatinine 0.72 0.70 - 1.20 mg/dL CERNER MILLENNIUM Comment: Please note that the pediatric reference intervals supplied above were not validated at [facility]. Results from pediatric patients should be interpreted in conjunction to the patient's age, height and muscle mass. Sodium 138 135 - 145 mmol/L CERNER MILLENNIUM Potassium 4.0 3.5 - 5.0 mmol/L CERNER MILLENNIUM Comment: Please note: ??Patients with WBC >100,000 may have falsely elevated Potassium levels. ??For accurate Potassium quantification in these patients send serum separator tube (gold top) for subsequent determinations. ??Contact the Clinical Chemistry Laboratory if there are any questions. Chloride 100 98 - 107 mmol/L CERNER MILLENNIUM Carbon Dioxide 29 22 - 31 mmol/L CERNER MILLENNIUM Anion Gap 9 5 - 15 mmol/L CERNER MILLENNIUM Calcium 9.0 8.5 - 10.5 mg/dL CERNER MILLENNIUM Est Glomerular Filtration Rate [...] the following links into your internet browser. [email or web address] Blood specimen (specimen) 12/29/2014 3:30 AM EST 12/29/2014 3:47 AM EST Narrative Resulting Agency Comment Spec In Lab Justin Foote Jr., MD CHEMISTRY ORDERABLES [facility] * (ABNORMAL) Hemogram (12/28/2014 5:00 AM EST) White Blood Cell 0.1(Criti jenaro) 4.0 - 10.0 x10(3)/mc L CERNER MILLENNIUM Comment:Diff not performed-W BC Less than or equal to 0.25. Red Blood Cell 2.42(L) 3.93 - 5.22 x10(6)/mc L CERNER MILLENNIUM Hemoglobin 7.8(L) 11.2 - 15.7 gm/dL CERNER MILLENNIUM Hematocrit 21.9(L) 34.0 - 45.0 % CERNER MILLENNIUM Mean Cell Volume 90.5 79.0 - 94.0 fL CERNER MILLENNIUM Mean Cell Hemoglobin 32.2 26.6 - 32.2 pg CERNER MILLENNIUM Mean Cell Hemoglobin Concentration 35.6 32.0 - 36.5 gm/dL CERNER MILLENNIUM Platelet 12(Critic al) 145 - 370 x10(3)/mc L CERNER MILLENNIUM RDW Standard Deviation 51.4(H) 35.0 - 46.0 fL CERNER MILLENNIUM RDW coefficient of variation 15.5(H) 10.9 - 14.4 % CERNER MILLENNIUM Mean Platelet Volume 9.9 9.0 - 12.0 fL CERNER MILLENNIUM Blood specimen (specimen) 12/28/2014 5:00 AM EST 12/28/2014 5:20 AM EST Narrative Resulting Agency Comment Spec In Lab Justin Foote Jr., MD HEMATOLOGY ORDERABLE S GIBRAN GEEIUM * Phosphorus (12/28/2014 5:00 AM EST) Phosphorus 3.7 2.5 - 4.5 mg/dL GIBRAN GEEIUM Blood specimen (specimen) 12/28/2014 5:00 AM EST 12/28/2014 5:20 AM EST Narrative Resulting Agency Comment Spec In Lab Justin Foote Jr., MD CHEMISTRY ORDERABLES GIBRAN GEEIUM * (ABNORMAL) Magnesium (12/28/2014 5:00 AM EST) Magnesium 0.65(L) 0.69 - 1.07 mmol/L CERNER MILLENNIUM Blood specimen (specimen) 12/28/2014 5:00 AM EST 12/28/2014 5:20 AM EST Narrative Resulting Agency Comment Spec In Lab Justin Foote Jr., MD CHEMISTRY ORDERABLES [facility] * (ABNORMAL) Basic Metabolic Panel (non-fasting) (12/28/2014 5:00 AM EST) Glucose 92 65 - 199 mg/dL CERNER MILLENNIUM Comment:Diabetes: >=200 mg/d L plus symptoms Blood Urea Nitrogen 16 8 - 18 mg/dL CERNER MILLENNIUM Creatinine 0.68(L) 0.70 - 1.20 mg/dL CERNER MILLENNIUM Comment: Please note that the pediatric reference intervals supplied above were not validated at [facility]. Results from pediatric patients should be interpreted in conjunction to the patient's age, height and muscle mass. Sodium 138 135 - 145 mmol/L CERNER MILLENNIUM Potassium 4.3 3.5 - 5.0 mmol/L CERNER MILLENNIUM Comment: Please note: ??Patients with WBC >100,000 may have falsely elevated Potassium levels. ??For accurate Potassium quantification in these patients send serum separator tube (gold top) for subsequent determinations. ??Contact the Clinical Chemistry Laboratory if there are any questions. Chloride 99 98 - 107 mmol/L CERNER MILLENNIUM Carbon Dioxide 30 22 - 31 mmol/L CERNER MILLENNIUM Anion Gap 9 5 - 15 mmol/L CERNER MILLENNIUM Calcium 9.2 8.5 - 10.5 mg/dL CERNER MILLENNIUM Est Glomerular Filtration Rate [...] the following links into your internet browser. [email or web address] Blood specimen (specimen) 12/28/2014 5:00 AM EST 12/28/2014 5:20 AM EST Narrative Resulting Agency Comment Spec In Lab Justin Foote Jr., MD CHEMISTRY ORDERABLES GIBRAN GEEIUM * (ABNORMAL) Hemogram (12/27/2014 3:43 AM EST) White Blood Cell 0.1(Criti jenaro) 4.0 - 10.0 x10(3)/mc L CERNER MILLENNIUM Comment:Diff not performed-W BC Less than or equal to 0.25. Red Blood Cell 2.74(L) 3.93 - 5.22 x10(6)/mc L CERNER MILLENNIUM Hemoglobin 8.8(L) 11.2 - 15.7 gm/dL CERNER MILLENNIUM Hematocrit 25.5(L) 34.0 - 45.0 % CERNER MILLENNIUM Mean Cell Volume 93.1 79.0 - 94.0 fL CERNER MILLENNIUM Mean Cell Hemoglobin 32.1 26.6 - 32.2 pg CERNER MILLENNIUM Mean Cell Hemoglobin Concentration 34.5 32.0 - 36.5 gm/dL CERNER MILLENNIUM Platelet 22(L) 145 - 370 x10(3)/mc L CERNER MILLENNIUM RDW Standard Deviation 55.6(H) 35.0 - 46.0 fL CERNER MILLENNIUM RDW coefficient of variation 16.4(H) 10.9 - 14.4 % CERNER MILLENNIUM Mean Platelet Volume 8.4(L) 9.0 - 12.0 fL CERNER MILLENNIUM Blood specimen (specimen) 12/27/2014 3:43 AM EST 12/27/2014 4:00 AM EST Narrative Resulting Agency Comment Spec In Lab Justin Foote Jr., MD HEMATOLOGY ORDERABLE S GIBRAN GEEIUM * Antibody screen (12/27/2014 3:43 AM EST) Ab Screen Interp Negative CERNER MILLENNIUM Expires at [id number] on: 12/30/2014 CERNER MILLENNIUM Blood specimen (specimen) 12/27/2014 3:43 AM EST 12/27/2014 3:51 AM EST Narrative Resulting Agency Comment Spec In Lab Justin Foote Jr., MD BLOOD BANK LAB ORDER AYO Performing Organization Address [facility] Phone Number [facility] * ABO/Rh Typing (12/27/2014 3:43 AM EST) ABORH Type B Pos [facility] Blood specimen (specimen) 12/27/2014 3:43 AM EST 12/27/2014 3:51 AM EST Narrative Resulting Agency Comment Spec In Lab Justin Foote Jr., MD BLOOD BANK LAB ORDER AYO Performing Organization Address [facility] Phone Number [facility] * Phosphorus (12/27/2014 3:43 AM EST) Pathologist [facility] Phosphorus 3.4 2.5 - 4.5 mg/dL [facility] Blood specimen (specimen) 12/27/2014 3:43 AM EST 12/27/2014 4:00 AM EST Narrative Resulting Agency Comment Spec In Lab Justin Foote Jr., MD CHEMISTRY ORDERABLES Performing Organization Address [facility] Phone Number [facility] * Magnesium (12/27/2014 3:43 AM EST) Pathologist [facility] Magnesium 0.87 0.69 - 1.07 mmol/L [facility] Blood specimen (specimen) 12/27/2014 3:43 AM EST 12/27/2014 4:00 AM EST Narrative Resulting Agency Comment Spec In Lab Justin Foote Jr., MD CHEMISTRY ORDERABLES Performing Organization Address [facility] [facility] Phone Number [facility] * (ABNORMAL) Basic Metabolic Panel (non-fasting) (12/27/2014 3:43 AM EST) Glucose 104 65 - 199 mg/dL [facility] Comment:Diabetes: >=200 mg/d L plus symptoms Blood Urea Nitrogen 20(H) 8 - 18 mg/dL CERNER MILLENNIUM Creatinine 0.82 0.70 - 1.20 mg/dL CERNER MILLENNIUM Comment: Please note that the pediatric reference intervals supplied above were not validated at [facility]. Results from pediatric patients should be interpreted [...] questions. Chloride 100 98 - 107 mmol/L CERNER MILLENNIUM Carbon Dioxide 26 22 - 31 mmol/L CERNER MILLENNIUM Anion Gap 15 5 - 15 mmol/L CERNER MILLENNIUM Calcium 9.3 8.5 - 10.5 mg/dL CERNER MILLENNIUM Est Glomerular Filtration Rate [...] the following links into your internet browser. [email or web address] Blood specimen (specimen) 12/27/2014 3:43 AM EST 12/27/2014 4:00 AM EST Narrative Resulting Agency Comment Spec In Lab Justin Foote Jr., MD CHEMISTRY ORDERABLES CERDANIA MILLENNIUM * IR line/tube removal recovery room- APULL (12/26/2014 1:49 PM EST) Anatomical Region Laterality Modality X-Ray Angiograph y Narrative 03/17/2015 9:44 AM EST VIR PROCEDURE NOTE ? Procedure: ??Removal of tunneled CVC catheter. ? Indication: ??No longer needed, local erythema ? Techniques and Findings: ??The area was prepped and draped in maximal sterile barrier technique fashion. ??Local anesthesia was provided with 1% Lidocaine. ??Using blunt dissection, the catheter was freed from the surrounding tissues and removed. ??Manual hemostasis achieved and DSD applied. ? Complications: ??None apparent. ? Impression: ??Removal of tunneled CVC catheter, as above. ?? Procedure performed by Marci Sahu PA-C ? Attending: ??Dr. Orellana Kimberly Mondragon MD IMG IR ORDERABLE S * Scan, Peripheral Blood (12/26/2014 3:40 AM EST) Plat estimate Decreased CERNER MILLENNIUM RBC Morphology Abnormal CERNE R MILLENNIUM Ovalocytes 1-5 /HPF CERNER MILLENNIUM Blood specimen (specimen) 12/26/2014 3:40 AM EST 12/26/2014 4:31 AM EST Narrative Resulting Agency Comment Spec In Lab Justin Foote Jr., MD HEMATOLOGY ORDERABLE S Performing Organization Address [facility] de Phone Number CERNER MILLENNIUM * (ABNORMAL) Hepatic Function Panel (12/26/2014 3:40 AM EST) Pathologist [facility] Protein, Total 6.0(L) 6.1 - 8.0 gm/dL CERNER MILLENNIUM Albumin 3.9 3.2 - 5.2 gm/dL CERNER MILLENNIUM Aspartate Aminotransferase 30 0 - 30 unit/L CERNER MILLENNIUM Alanine Aminotransferase 51(H) 0 - 30 unit/L CERNER MILLENNIUM Alkaline Phosphatase 93 40 - 104 unit/L CERNER MILLENNIUM Bilirubin, Total 0.3 0.2 - 1.3 mg/dL CERNER MILLENNIUM Bilirubin, Direct 0.1 0.0 - 0.3 mg/dL CERNER MILLENNIUM Blood specimen (specimen) Venous Draw / Unknown 12/26/2014 3:40 AM EST 12/26/2014 4:31 AM EST Narrative Resulting Agency Comment Spec In Lab Justin Foote Jr., MD CHEMISTRY ORDERABLES Performing Organization Address [facility] Co de Phone Number CERNER MILLENNIUM * (ABNORMAL) Hemogram (12/26/2014 3:40 AM EST) White Blood Cell 0.2(Criti jenaro) 4.0 - 10.0 x10(3)/mc L CERNER MILLENNIUM Comment:Diff not performed-W BC Less than or equal to 0.25. Red Blood Cell 2.67(L) 3.93 - 5.22 x10(6)/mc L CERNER MILLENNIUM Hemoglobin 8.5(L) 11.2 - 15.7 gm/dL CERNER MILLENNIUM Hematocrit 24.8(L) 34.0 - 45.0 % CERNER MILLENNIUM Mean Cell Volume 92.9 79.0 - 94.0 fL CERNER MILLENNIUM Mean Cell Hemoglobin 31.8 26.6 - 32.2 pg CERNER MILLENNIUM Mean Cell Hemoglobin Concentration 34.3 32.0 - 36.5 gm/dL CERNER MILLENNIUM Platelet 34(L) 145 - 370 x10(3)/mc L CERNER MILLENNIUM RDW Standard Deviation 58.6(H) 35.0 - 46.0 fL CERNER MILLENNIUM RDW coefficient of variation 17.5(H) 10.9 - 14.4 % CERNER MILLENNIUM Mean Platelet Volume 8.9(L) 9.0 - 12.0 fL CERNER MILLENNIUM Blood specimen (specimen) 12/26/2014 3:40 AM EST 12/26/2014 4:31 AM EST Narrative Resulting Agency Comment Spec In Lab Justin Foote Jr., MD HEMATOLOGY ORDERABLE S Performing Organization Address City/[facility] Co de Phone Number CERDANIA BUCHANANENNIUM * Phosphorus (12/26/2014 3:40 AM EST) Phosphorus 3.5 2.5 - 4.5 mg/dL CERNER MILLENNIUM Blood specimen (specimen) 12/26/2014 3:40 AM EST 12/26/2014 4:31 AM EST Narrative Resulting Agency Comment Spec In Lab Justin Foote Jr., MD CHEMISTRY ORDERABLES CERNER DEWAYNEENNIUM * (ABNORMAL) Magnesium (12/26/2014 3:40 AM EST) Magnesium 0.67(L) 0.69 - 1.07 mmol/L CERNER MILLENNIUM Blood specimen (specimen) 12/26/2014 3:40 AM EST 12/26/2014 4:31 AM EST Narrative Resulting Agency Comment Spec In Lab Justin Foote Jr., MD CHEMISTRY ORDERABLES CERNER MILLENNIUM * (ABNORMAL) Basic Metabolic Panel (non-fasting) (12/26/2014 3:40 AM EST) Glucose 87 65 - 199 mg/dL CERNER MILLENNIUM Comment:Diabetes: >=200 mg/d L plus symptoms Blood Urea Nitrogen 21(H) 8 - 18 mg/dL CERNER MILLENNIUM Creatinine 0.72 0.70 - 1.20 mg/dL CERNER MILLENNIUM Comment: Please note that the pediatric reference intervals supplied above were not validated at [facility]. Results from pediatric patients should be interpreted in conjunction to the patient's age, height and muscle mass. Sodium 142 135 - 145 mmol/L CERNER MILLENNIUM Potassium 4.3 3.5 - 5.0 mmol/L CERNER MILLENNIUM Comment: [...] 5 - 15 mmol/L CERNER MILLENNIUM Calcium 9.1 8.5 - 10.5 mg/dL CERNER MILLENNIUM Est Glomerular Filtration Rate [...] the following links into your internet browser. [email or web address] Blood specimen (specimen) 12/26/2014 3:40 AM EST 12/26/2014 4:31 AM EST Narrative Resulting Agency Comment Spec In Lab Justin Foote Jr., MD CHEMISTRY ORDERABLES Performing Organization Address City/[facility]/ZIP Co de Phone Number CERNER MILLENNIUM * (ABNORMAL) Differential, Automated (12/25/2014 5:00 AM EST) Neutrophil % 82.1 % CERNER MILLENNIUM Neutrophil Absolute 0.55(L) 1.50 - 6.30 x10(3)/mc L CERNER MILLENNIUM Lymph % 13.4 % CERNER MILLENNIUM Lymphocytes Abs 0.1(L) 1.0 - 3.6 x10(3)/mc L CERNER MILLENNIUM Monocyte % 1.5 % CERNER MILLENNIUM Monocyte Abs 0.0(L) 0.2 - 1.0 x10(3)/mc L CERNER MILLENNIUM Eos % 1.5 % CERNER MILLENNIUM Eosinophils Abs 0.0 0.0 - 0.5 x10(3)/mc L CERNER MILLENNIUM Basophil % 0.0 % CERNER MILLENNIUM Baso Absolute 0.0 0.0 - 0.2 x10(3)/mc L CERNER MILLENNIUM Immature Gran % 1.50 % CERN ER MILLENNIUM Comment: Immature granulocytes(IG's)percentage and absolute count will include metamyelocytes, myelocytes, and promyelocytes. Blood smears from CBCs yielding IG's will be scanned manually for concordance. If this scan disagrees with the automated IG or if promyelocytes are noted, a manual differential will be performed. Immature Gran Absolute 0.01 0.00 - 0.05 x10(3)/mc L CERNER MILLENNIUM Blood specimen (specimen) 12/25/2014 5:00 AM EST 12/25/2014 5:24 AM EST Narrative Resulting Agency Comment Spec In Lab Justin Foote Jr., MD HEMATOLOGY ORDERABLE S CERNER DEWAYNEENNIUM * (ABNORMAL) Hemogram (12/25/2014 5:00 AM EST) White Blood Cell 0.7(Criti jenaro) 4.0 - 10.0 x10(3)/mc L CERNER MILLENNIUM Red Blood Cell 2.79(L) 3.93 - 5.22 x10(6)/mc L CERNER MILLENNIUM Hemoglobin 9.0(L) 11.2 - 15.7 gm/dL CERNER MILLENNIUM Hematocrit 25.5(L) 34.0 - 45.0 % CERNER MILLENNIUM Mean Cell Volume 91.4 79.0 - 94.0 fL CERNER MILLENNIUM Mean Cell Hemoglobin 32.3(H) 26.6 - 32.2 pg CERNER MILLENNIUM Mean Cell Hemoglobin Concentration 35.3 32.0 - 36.5 gm/dL CERNER MILLENNIUM Platelet 52(L) 145 - 370 x10(3)/mc L CERNER MILLENNIUM RDW Standard Deviation 59.1(H) 35.0 - 46.0 fL CERNER MILLENNIUM RDW coefficient of variation 17.9(H) 10.9 - 14.4 % CERNER MILLENNIUM Mean Platelet Volume 8.6(L) 9.0 - 12.0 fL CERNER MILLENNIUM Blood specimen (specimen) 12/25/2014 5:00 AM EST 12/25/2014 5:24 AM EST Narrative Resulting Agency Comment Spec In Lab Justin Foote Jr., MD HEMATOLOGY ORDERABLE S Performing Organization Address [facility] de Phone Number CERDANIA MILLENNIUM * Phosphorus (12/25/2014 5:00 AM EST) Phosphorus 3.8 2.5 - 4.5 mg/dL CERNER MILLENNIUM Blood specimen (specimen) 12/25/2014 5:00 AM EST 12/25/2014 5:24 AM EST Narrative Resulting Agency Comment Spec In Lab Justin Foote Jr., MD CHEMISTRY ORDERABLES Performing Organization Address City/[facility] de Phone Number CERNER DEWAYNEENNIUM * Magnesium (12/25/2014 5:00 AM EST) Magnesium 0.75 0.69 - 1.07 mmol/L CERNER MILLENNIUM Blood specimen (specimen) 12/25/2014 5:00 AM EST 12/25/2014 5:24 AM EST Narrative Resulting Agency Comment Spec In Lab Justin Foote Jr., MD CHEMISTRY ORDERABLES GIBRAN GEEIUM * (ABNORMAL) Basic Metabolic Panel (non-fasting) (12/25/2014 5:00 AM EST) Glucose 96 65 - 199 mg/dL CERNER MILLENNIUM Comment:Diabetes: >=200 mg/d L plus symptoms Blood Urea Nitrogen 17 8 - 18 mg/dL CERNER MILLENNIUM Creatinine 0.65(L) 0.70 - 1.20 mg/dL CERNER MILLENNIUM Comment: Please note that the pediatric reference intervals supplied above were not validated at [facility]. Results from pediatric patients should be interpreted in conjunction to the patient's age, height and muscle mass. Sodium 140 135 - 145 mmol/L CERNER MILLENNIUM Potassium 4.0 3.5 - 5.0 mmol/L CERNER MILLENNIUM Comment: Please note: ??Patients with WBC >100,000 may have falsely elevated Potassium levels. ??For accurate Potassium quantification in these patients send serum separator tube (gold top) for subsequent determinations. ??Contact the Clinical Chemistry Laboratory if there are any questions. Chloride 100 98 - 107 mmol/L CERNER MILLENNIUM Carbon Dioxide 30 22 - 31 mmol/L CERNER MILLENNIUM Anion Gap 10 5 - 15 mmol/L CERNER MILLENNIUM Calcium 9.4 8.5 - 10.5 mg/dL CERNER MILLENNIUM Est Glomerular Filtration Rate [...] the following links into your internet browser. [email or web address] Blood specimen (specimen) 12/25/2014 5:00 AM EST 12/25/2014 5:24 AM EST Narrative Resulting Agency Comment Spec In Lab Justin Foote Jr., MD CHEMISTRY ORDERABLES Performing Organization Address [facility] de Phone Number GIBRAN COREAS * Transfusion Reaction Interp (12/24/2014 5:49 PM EST) Trans RXN Interp INTERPRETATION: Allergic transfusion reaction. The patient is approved to receive future transfusions. Please refer to the clinical note for a complete summary of this transfusion reaction. Ewelina Reyna MD Transfusion Medicine Service 12/24/14 18:07 [facility] Comment: Ewelina Reyna, Pathologist Verified:12/24/14 Blood specimen (specimen) Other / Unknown 12/24/2014 5:49 PM EST 12/24/2014 5:49 PM EST Narrative Resulting Agency Comment Spec In Lab Kimberly Mondragon MD BLOOD BANK LAB O RDERABLES Performing Organization Address [facility] de Phone Number GIBRAN COREAS * Antibody screen (12/24/2014 10:40 AM EST) Ab Screen Interp Negative CERDANIA GEEIUM Expires at [id number] on: 12/27/2014 CERDANIA GEEIUM Blood specimen (specimen) 12/24/2014 10:40 AM EST 12/24/2014 10:57 AM EST Narrative Resulting Agency Comment Spec In Lab Justin Foote Jr., MD BLOOD BANK LAB ORDER AYO Performing Organization Address [facility] de Phone Number GIBRAN COREAS * ABO/Rh Typing (12/24/2014 10:40 AM EST) ABORH Type B Pos CERNER MILLENNIUM Blood specimen (specimen) 12/24/2014 10:40 AM EST 12/24/2014 10:57 AM EST Narrative Resulting Agency Comment Spec In Lab Justin Foote Jr., MD BLOOD BANK LAB ORDER AYO CERNER DEWAYNEENNIUM * Prepare RBC (12/24/2014 10:30 AM EST) Dispensed? Yes CERNER DEWAYNEENNIUM Blood specimen (specimen) 12/24/2014 10:30 AM EST 12/24/2014 10:26 AM EST Kimberly Mondragon MD BLOOD BANK PRODU CT ORDERABLES Performing Organization Address City/[facility]/ZIP Co de Phone Number CERDANIA GEEIUM * Scan, Peripheral Blood (12/24/2014 4:30 AM EST) Plat estimate Decreased CERNER MILLENNIUM RBC Morphology Normal CERNE R MILLENNIUM Blood specimen (specimen) 12/24/2014 4:30 AM EST 12/24/2014 4:40 AM EST Narrative Resulting Agency Comment Spec In Lab Justin Foote Jr., MD HEMATOLOGY ORDERABLE S Performing Organization Address [facility]/ZIP Co de Phone Number CERNER DEWAYNEENNIUM * (ABNORMAL) Differential, Automated (12/24/2014 4:30 AM EST) Neutrophil % 91.1 % CERNER MILLENNIUM Neutrophil Absolute 1.56 1.50 - 6.30 x10(3)/mc L CERNER MILLENNIUM Lymph % 5.3 % CERNER MILLENNIUM Lymphocytes Abs 0.1(L) 1.0 - 3.6 x10(3)/mc L CERNER MILLENNIUM Monocyte % 0.6 % CERNER MILLENNIUM Monocyte Abs 0.0(L) 0.2 - 1.0 x10(3)/mc L CERNER MILLENNIUM Eos % 1.2 % CERNER MILLENNIUM Eosinophils Abs 0.0 0.0 - 0.5 x10(3)/mc L CERNER MILLENNIUM Basophil % 0.0 % CERNER MILLENNIUM Baso Absolute 0.0 0.0 - 0.2 x10(3)/mc L CERNER MILLENNIUM Immature Gran % 1.80 % CERN ER MILLENNIUM Comment: Immature granulocytes(IG's)percentage and absolute count will include metamyelocytes, myelocytes, and promyelocytes. Blood smears from CBCs yielding IG's will be scanned manually for concordance. If this scan disagrees with the automated IG or if promyelocytes are noted, a manual differential will be performed. Immature Gran Absolute 0.03 0.00 - 0.05 x10(3)/mc L CERNER MILLENNIUM Blood specimen (specimen) 12/24/2014 4:30 AM EST 12/24/2014 4:40 AM EST Narrative Resulting Agency Comment Spec In Lab Justin Foote Jr., MD HEMATOLOGY ORDERABLE S CERNER MILLENNIUM * (ABNORMAL) Hemogram (12/24/2014 4:30 AM EST) White Blood Cell 1.7(Criti jenaro) 4.0 - 10.0 x10(3)/mc L CERNER MILLENNIUM Red Blood Cell 2.03(L) 3.93 - 5.22 x10(6)/mc L CERNER MILLENNIUM Hemoglobin 6.9(L) 11.2 - 15.7 gm/dL CERNER MILLENNIUM Hematocrit 19.3(L) 34.0 - 45.0 % CERNER MILLENNIUM Mean Cell Volume 95.1(H) 79.0 - 94.0 fL CERNER MILLENNIUM Mean Cell Hemoglobin 34.0(H) 26.6 - 32.2 pg CERNER MILLENNIUM Mean Cell Hemoglobin Concentration 35.8 32.0 - 36.5 gm/dL CERNER MILLENNIUM Platelet 64(L) 145 - 370 x10(3)/mc L CERNER MILLENNIUM RDW Standard Deviation 52.6(H) 35.0 - 46.0 fL CERNER MILLENNIUM RDW coefficient of variation 15.3(H) 10.9 - 14.4 % CERNER MILLENNIUM Mean Platelet Volume 8.7(L) 9.0 - 12.0 fL CERNER MILLENNIUM Blood specimen (specimen) 12/24/2014 4:30 AM EST 12/24/2014 4:40 AM EST Narrative Resulting Agency Comment Spec In Lab Justin Foote Jr., MD HEMATOLOGY ORDERABLE S Performing Organization Address [facility] de Phone Number [facility] * Phosphorus (12/24/2014 4:30 AM EST) Phosphorus 3.4 2.5 - 4.5 mg/dL [facility] MILL[facility] Blood specimen (specimen) 12/24/2014 4:30 AM EST 12/24/2014 4:40 AM EST Narrative Resulting Agency Comment Spec In Lab Justin Foote Jr., MD CHEMISTRY ORDERABLES Performing Organization Address [facility] Phone Number [facility] * (ABNORMAL) Magnesium (12/24/2014 4:30 AM EST) Magnesium 0.56(L) 0.69 - 1.07 mmol/L [facility] MILLENNIUM Blood specimen (specimen) 12/24/2014 4:30 AM EST 12/24/2014 4:40 AM EST Narrative Resulting Agency Comment Spec In Lab Justin Foote Jr., MD CHEMISTRY ORDERABLES Performing Organization Address [facility] Phone Number [facility] * (ABNORMAL) Basic Metabolic Panel (non-fasting) (12/24/2014 4:30 AM EST) Glucose 88 65 - 199 mg/dL [facility] MILLENNIUM Comment:Diabetes: >=200 mg/d L plus symptoms Blood Urea Nitrogen 13 8 - 18 mg/dL [facility] M[facility] Creatinine 0.60(L) 0.70 - 1.20 mg/dL CERNER MILLENNIUM Comment: Please note that the pediatric reference intervals supplied above were not validated at [facility]. Results from pediatric patients should be interpreted in conjunction to the patient's age, height and muscle mass. Sodium 142 135 - 145 mmol/L CERNER MILLENNIUM Potassium 3.9 3.5 - 5.0 mmol/L CERNER MILLENNIUM Comment: Please note: ??Patients with WBC >100,000 may have falsely elevated Potassium levels. ??For accurate Potassium quantification in these patients send serum separator tube (gold top) for subsequent determinations. ??Contact the Clinical Chemistry Laboratory if there are any questions. Chloride 102 98 - 107 mmol/L CERNER MILLENNIUM Carbon Dioxide 31 22 - 31 mmol/L CERNER MILLENNIUM Anion Gap 9 5 - 15 mmol/L CERNER MILLENNIUM Calcium 9.0 8.5 - 10.5 mg/dL CERNER MILLENNIUM Est Glomerular Filtration Rate [...] the following links into your internet browser. [email or web address] Blood specimen (specimen) 12/24/2014 4:30 AM EST 12/24/2014 4:40 AM EST Narrative Resulting Agency Comment Spec In Lab Justin Foote Jr., MD CHEMISTRY ORDERABLES [facility] * Transfusion Reaction Interp (12/23/2014 4:13 PM EST) Trans RXN Interp INTERPRETATION: UNclassified stem cell infusion reaction. The patient is approved to receive future transfusions. Please refer to the clinical note for a complete summary of this reaction. Ewelina Reyna MD Transfusion Medicine Service 12/24/14 18:09 CERNER MILLENNIUM Comment: Ewelina Reyna, Pathologist Verified:12/24/14 Specimen of unknown material (specimen) Other / Unknown 12/23/2014 4:13 PM EST 12/23/2014 4:13 PM EST Narrative Resulting Agency Comment Spec In Lab Zyara Sweet APRN BLOOD BANK LAB ORDER AYO CERNER MILLENNIUM * (ABNORMAL) Urinalysis with reflex Culture (12/23/2014 9:33 AM EST) Glucose, Urine Dipstick 50(A) Negative mg/dL CERNER MILLENNIUM Protein, Urine Dipstick 30(A) Negative mg/dL CERNER MILLENNIUM Bilirubin, Urine Dipstick Negative Negative mg/dL CERNER MILLENNIUM Comment: Clinical correlation required for positive Urine Bilirubin results as false positive may occur with some drugs and drug related products. If a false positive is suspected a serum total bilirubin should be considered if clinically indicated. Urobilinogen, Urine Dipstick Normal Normal mg/dL CERNER MILLENNIUM pH, Urn (dipstick) 7.0 5.0 - 8.0 CERNER MILLENNIUM Blood, Urine Dipstick Negative Negative mg/dL CERNER MILLENNIUM Ketone, Urine Dipstick 5(A) Negative mg/dL CERNER MILLENNIUM Nitrite, Urine Dipstick Negative Negative CERNER MILLENNIUM Leukocytes, Urine Dipstick Negative Negative mcL CERNER MILLENNIUM Appearance, Urine Dipstick Clear Clear CERNER MILLENNIUM Specific [place] Urine Automated 1.015 1.002 - 1.030 CERNER MILLENNIUM Color, Urine Dipstick Yellow Yellow CERNER MILLENNIUM RBC, Urine <1 0 - 4 /HPF CERNER MILLENNIUM WBC, Urine 1 0 - 5 /HPF CERNER MILLENNIUM Squamous Epithelial Cells, Urine 1 <=4 /HPF CERNER MILLENNIUM Reflex to Culture No CERNER MILLENNIUM Urine specimen obtained by clean catch procedure (specimen) 12/23/2014 9:33 AM EST 12/23/2014 9:48 AM EST Narrative Resulting Agency Comment Spec In Lab Justin Foote Jr., MD URINE ORDERABLES Performing Organization Address City/[facility]/ZIP Co de Phone Number CERNER MILLENNIUM * Scan, Peripheral Blood (12/23/2014 2:00 AM EST) Plat estimate Decreased CERNER MILLENNIUM RBC Morphology Abnormal CERNE R MILLENNIUM Macrocyte 1-5 /HPF CERNER MILLENNIUM Ovalocytes 1-5 /HPF CERNER MILLENNIUM Blood specimen (specimen) 12/23/2014 2:00 AM EST 12/23/2014 2:17 AM EST Narrative Resulting Agency Comment Spec In Lab Justin Foote Jr., MD HEMATOLOGY ORDERABLE S Performing Organization Address City/[facility] de Phone Number CERNER DEWAYNEENNIUM * (ABNORMAL) Hepatic Function Panel (12/23/2014 2:00 AM EST) Pathologist [facility] Protein, Total 5.7(L) 6.1 - 8.0 gm/dL CERNER MILLENNIUM Albumin 3.5 3.2 - 5.2 gm/dL CERNER MILLENNIUM Aspartate Aminotransferase 57(H) 0 - 30 unit/L CERNER MILLENNIUM Alanine Aminotransferase 103(H) 0 - 30 unit/L CERNER MILLENNIUM Alkaline Phosphatase 94 40 - 104 unit/L CERNER MILLENNIUM Bilirubin, Total 0.7 0.2 - 1.3 mg/dL CERNER MILLENNIUM Bilirubin, Direct 0.2 0.0 - 0.3 mg/dL CERNER MILLENNIUM Blood specimen (specimen) Venous Draw / Unknown 12/23/2014 2:00 AM EST 12/23/2014 2:17 AM EST Narrative Resulting Agency Comment Spec In Lab Justin Foote Jr., MD CHEMISTRY ORDERABLES Performing Organization Address [facility] Co de Phone Number CERDANIA BUCHANANENNIUM * (ABNORMAL) Differential, Automated (12/23/2014 2:00 AM EST) Pathologist [facility] Neutrophil % 92.9 % CERNER MILLENNIUM Neutrophil Absolute 2.69 1.50 - 6.30 x10(3)/mc L CERNER MILLENNIUM Lymph % 3.1 % CERNER MILLENNIUM Lymphocytes Abs 0.1(L) 1.0 - 3.6 x10(3)/mc L CERNER MILLENNIUM Monocyte % 0.3 % CERNER MILLENNIUM Monocyte Abs 0.0(L) 0.2 - 1.0 x10(3)/mc L CERNER MILLENNIUM Eos % 3.4 % CERNER MILLENNIUM Eosinophils Abs 0.1 0.0 - 0.5 x10(3)/mc L CERNER MILLENNIUM Basophil % 0.3 % CERNER MILLENNIUM Baso Absolute 0.0 0.0 - 0.2 x10(3)/mc L CERNER MILLENNIUM Immature Gran % 0.00 % CERN ER MILLENNIUM Comment: Immature granulocytes(IG's)percentage and absolute count will include metamyelocytes, myelocytes, and promyelocytes. Blood smears from CBCs yielding IG's will be scanned manually for concordance. If this scan disagrees with the automated IG or if promyelocytes are noted, a manual differential will be performed. Immature Gran Absolute 0.00 0.00 - 0.05 x10(3)/mc L CERNER MILLENNIUM Blood specimen (specimen) 12/23/2014 2:00 AM EST 12/23/2014 2:17 AM EST Narrative Resulting Agency Comment Spec In Lab Justin Foote Jr., MD HEMATOLOGY ORDERABLE S CERNER MILLENNIUM * (ABNORMAL) Hemogram (12/23/2014 2:00 AM EST) White Blood Cell 2.9(L) 4.0 - 10.0 x10(3)/mc L CERNER MILLENNIUM Comment:PER NURSING: EXPECTE D DELTA. STEM CELL TRANSPLANT PATIENT. Red Blood Cell 2.28(L) 3.93 - 5.22 x10(6)/mc L CERNER MILLENNIUM Hemoglobin 7.7(L) 11.2 - 15.7 gm/dL CERNER MILLENNIUM Hematocrit 21.6(L) 34.0 - 45.0 % CERNER MILLENNIUM Mean Cell Volume 94.7(H) 79.0 - 94.0 fL CERNER MILLENNIUM Mean Cell Hemoglobin 33.8(H) 26.6 - 32.2 pg CERNER MILLENNIUM Mean Cell Hemoglobin Concentration 35.6 32.0 - 36.5 gm/dL CERNER MILLENNIUM Platelet 97(L) 145 - 370 x10(3)/mc L CERNER MILLENNIUM RDW Standard Deviation 53.7(H) 35.0 - 46.0 fL [facility] RDW coefficient of variation 15.8(H) 10.9 - 14.4 % [facility] Mean Platelet Volume 8.7(L) 9.0 - 12.0 fL [facility] MILLENNIUM Blood specimen (specimen) 12/23/2014 2:00 AM EST 12/23/2014 2:17 AM EST Narrative Resulting Agency Comment Spec In Lab Justin Foote Jr., MD HEMATOLOGY ORDERABLE S Performing Organization Address [facility] Co de Phone Number [facility] * Phosphorus (12/23/2014 2:00 AM EST) Pathologist [facility] Phosphorus 3.9 2.5 - 4.5 mg/dL [facility] Blood specimen (specimen) 12/23/2014 2:00 AM EST 12/23/2014 2:17 AM EST Narrative Resulting Agency Comment Spec In Lab Justin Foote Jr., MD CHEMISTRY ORDERABLES Performing Organization Address [facility] Co de Phone Number [facility] * Magnesium (12/23/2014 2:00 AM EST) Pathologist [facility] Magnesium 0.79 0.69 - 1.07 mmol/L [facility] Comment:result rechecked-TJ Blood specimen (specimen) 12/23/2014 2:00 AM EST 12/23/2014 2:17 AM EST Narrative Resulting Agency Comment Spec In Lab Justin Foote Jr., MD CHEMISTRY ORDERABLES Performing Organization Address [facility] Co de Phone Number [facility] * Basic Metabolic Panel (non-fasting) (12/23/2014 2:00 AM EST) Glucose 86 65 - 199 mg/dL [facility] Comment:Diabetes: >=200 mg/d L plus symptoms Blood Urea Nitrogen 15 8 - 18 mg/dL [facility] Creatinine 0.73 0.70 - 1.20 mg/dL CERNER MILLENNIUM Comment: Please note that the pediatric reference intervals supplied above were not validated at [facility]. Results from pediatric patients should be interpreted in conjunction to the patient's age, height and muscle mass. Sodium 142 135 - 145 mmol/L CERNER MILLENNIUM Potassium 4.1 3.5 - 5.0 mmol/L CERNER MILLENNIUM Comment: [...] 9.7 8.5 - 10.5 mg/dL CERNER MILLENNIUM Comment:result rechecked-TJ Est Glomerular Filtration Rate >60 >=60 CERNER [...] the following links into your internet browser. [email or web address] Blood specimen (specimen) 12/23/2014 2:00 AM EST 12/23/2014 2:17 AM EST Narrative Resulting Agency Comment Spec In Lab Justin Foote Jr., MD CHEMISTRY ORDERABLES GIBRAN COREAS * Phosphorus (12/22/2014 2:45 AM EST) Phosphorus 3.2 2.5 - 4.5 mg/dL CERNER MILLENNIUM Blood specimen (specimen) 12/22/2014 2:45 AM EST 12/22/2014 2:53 AM EST Narrative Resulting Agency Comment Spec In Lab Justin Foote Jr., MD CHEMISTRY ORDERABLES Performing Organization Address [facility] Co de Phone Number CERDANIA BUCHANANENNIUM * (ABNORMAL) Magnesium (12/22/2014 2:45 AM EST) Magnesium 0.49(L) 0.69 - 1.07 mmol/L CERNER MILLENNIUM Blood specimen (specimen) 12/22/2014 2:45 AM EST 12/22/2014 2:53 AM EST Narrative Resulting Agency Comment Spec In Lab Justin Foote Jr., MD CHEMISTRY ORDERABLES Performing Organization Address [facility] de Phone Number CERDANIA BUCHANANENNIUM * (ABNORMAL) Basic Metabolic Panel (non-fasting) (12/22/2014 2:45 AM EST) Glucose 91 65 - 199 mg/dL CERNER MILLENNIUM Comment:Diabetes: >=200 mg/d L plus symptoms Blood Urea Nitrogen 12 8 - 18 mg/dL CERNER MILLENNIUM Creatinine 0.69(L) 0.70 - 1.20 mg/dL CERNER MILLENNIUM Comment: Please note that the pediatric reference intervals supplied above were not validated at [facility]. Results from pediatric patients should be interpreted in conjunction to the patient's age, height and muscle mass. Sodium 136 135 - 145 mmol/L CERNER MILLENNIUM Potassium 3.2(L) 3.5 - 5.0 mmol/L CERNER MILLENNIUM Comment: Please note: ??Patients with WBC >100,000 may have falsely elevated Potassium levels. ??For accurate Potassium quantification in these patients send serum separator tube (gold top) for subsequent determinations. ??Contact the Clinical Chemistry Laboratory if there are any questions. Chloride 100 98 - 107 mmol/L CERNER MILLENNIUM Carbon Dioxide 25 22 - 31 mmol/L CERNER MILLENNIUM Anion Gap 11 5 - 15 mmol/L CERNER MILLENNIUM Calcium 8.6 8.5 - 10.5 mg/dL CERNER MILLENNIUM Est Glomerular Filtration Rate [...] the following links into your internet browser. [email or web address] Blood specimen (specimen) 12/22/2014 2:45 AM EST 12/22/2014 2:53 AM EST Narrative Resulting Agency Comment Spec In Lab Justin Foote Jr., MD CHEMISTRY ORDERABLES Performing Organization Address [facility] de Phone Number [employer] * EKG 12 Lead (12/21/2014 7:59 AM EST) Ventricular rate 88 BPM MUSE SYSTEM Atrial Rate 88 BPM MUSE SYSTEM P-R Interval 142 ms MUSE SYSTEM QRS Duration 80 ms MUSE SYSTEM Q-T Interval 348 ms MUSE SYSTEM QTC Calculated (Bezet) 421 ms MUSE SYSTEM Calculated P [place] 58 degrees MUSE SYSTEM Calculated R [place] 2 degrees MUSE SYSTEM Calculated T [place] 34 degrees MUSE SYSTEM INTERPRETATION Normal sinus rhythm Normal ECG Confirmed by MD Sacha, Eladio ([id number]) on 12/21/2014 8:28:25 AM MUSE SYSTEM 12/21/2014 7:59 AM EST 12/21/2014 8:28 AM EST Bernadette Cintron MD ECG ORDERABLES Performing Organization Address [facility] de Phone Number MUSE SYSTEM * (ABNORMAL) Hepatic Function Panel (12/21/2014 4:45 AM EST) Protein, Total 5.2(L) 6.1 - 8.0 gm/dL CERNER MILLENNIUM Albumin 3.4 3.2 - 5.2 gm/dL CERNER MILLENNIUM Aspartate Aminotransferase 213(H) 0 - 30 unit/L CERNER MILLENNIUM Alanine Aminotransferase 174(H) 0 - 30 unit/L CERNER MILLENNIUM Alkaline Phosphatase 79 40 - 104 unit/L CERNER MILLENNIUM Bilirubin, Total 0.7 0.2 - 1.3 mg/dL [facility] Bilirubin, Direct 0.2 0.0 - 0.3 mg/dL [facility] Blood specimen (specimen) Venous Draw / Unknown 12/21/2014 4:45 AM EST 12/21/2014 4:52 AM EST Narrative Resulting Agency Comment Spec In Lab Justin Foote Jr., MD CHEMISTRY ORDERABLES Performing Organization Address [facility] de Phone Number [facility] * Phosphorus (12/21/2014 4:45 AM EST) Phosphorus 2.8 2.5 - 4.5 mg/dL [facility] Blood specimen (specimen) 12/21/2014 4:45 AM EST 12/21/2014 4:52 AM EST Narrative Resulting Agency Comment Spec In Lab Justin Foote Jr., MD CHEMISTRY ORDERABLES Performing Organization Address [facility] Phone Number [facility] * Magnesium (12/21/2014 4:45 AM EST) Magnesium 0.79 0.69 - 1.07 mmol/L [facility] Blood specimen (specimen) 12/21/2014 4:45 AM EST 12/21/2014 4:52 AM EST Narrative Resulting Agency Comment Spec In Lab Justin Foote Jr., MD CHEMISTRY ORDERABLES Performing Organization Address [facility] de Phone Number [facility] * (ABNORMAL) Basic Metabolic Panel (non-fasting) (12/21/2014 4:45 AM EST) Glucose 90 65 - 199 mg/dL [facility] Comment:Diabetes: >=200 mg/d L plus symptoms Blood Urea Nitrogen 20(H) 8 - 18 mg/dL [facility] Creatinine 0.90 0.70 - 1.20 mg/dL [facility] Comment: Please note that the pediatric reference intervals supplied above were not validated at [facility]. Results from pediatric patients should be interpreted in conjunction to the patient's age, height and muscle mass. Sodium 142 135 - 145 mmol/L CERNER MILLENNIUM Potassium 4.1 3.5 - 5.0 mmol/L CERNER MILLENNIUM Comment: Please note: ??Patients with WBC >100,000 may have falsely elevated Potassium levels. ??For accurate Potassium quantification in these patients send serum separator tube (gold top) for subsequent determinations. ??Contact the Clinical Chemistry Laboratory if there are any questions. Chloride 107 98 - 107 mmol/L CERNER MILLENNIUM Carbon Dioxide 24 22 - 31 mmol/L CERNER MILLENNIUM Anion Gap 11 5 - 15 mmol/L CERNER MILLENNIUM Calcium 8.9 8.5 - 10.5 mg/dL CERNER MILLENNIUM Est Glomerular Filtration Rate [...] the following links into your internet browser. [email or web address] Blood specimen (specimen) 12/21/2014 4:45 AM EST 12/21/2014 4:52 AM EST Narrative Resulting Agency Comment Spec In Lab Justin Foote Jr., MD CHEMISTRY ORDERABLES [facility] * Urinalysis with reflex Culture (12/21/2014 4:00 AM EST) Glucose, Urine Dipstick Negative Negative [...] Urine Dipstick Clear Clear CERNER MILLENNIUM Specific [place] Urine Automated 1.014 1.002 - 1.030 CERNER MILLENNIUM Color, Urine Dipstick Yellow Yellow CERNER MILLENNIUM RBC, Urine 1 0 - 4 /HPF CERNER MILLENNIUM WBC, Urine 1 0 - 5 /HPF CERNER MILLENNIUM Squamous Epithelial Cells, Urine <1 <=4 /HPF CERNER MILLENNIUM Reflex to Culture No CERNER MILLENNIUM Urine specimen (specimen) 12/21/2014 4:00 AM EST 12/21/2014 7:16 AM EST Narrative Resulting Agency Comment Spec In Lab Justin Foote Jr., MD URINE ORDERABLES CERNER MILLENNIUM * (ABNORMAL) Differential, Automated (12/20/2014 3:54 AM EST) Neutrophil % 96.6 % CERNER MILLENNIUM Neutrophil Absolute 13.17(H) 1.50 - 6.30 x10(3)/mc L CERNER MILLENNIUM Lymph % 1.2 % CERNER MILLENNIUM Lymphocytes Abs 0.2(L) 1.0 - 3.6 x10(3)/mc L CERNER MILLENNIUM Monocyte % 2.0 % CERNER MILLENNIUM Monocyte Abs 0.3 0.2 - 1.0 x10(3)/mc L CERNER MILLENNIUM Eos % 0.0 % CERNER MILLENNIUM Eosinophils Abs 0.0 0.0 - 0.5 x10(3)/mc L CERNER MILLENNIUM Basophil % 0.0 % CERNER MILLENNIUM Baso Absolute 0.0 0.0 [...] differential will be performed. Immature Gran Absolute 0.03 0.00 - 0.05 x10(3)/mc L CERNER MILLENNIUM Blood specimen (specimen) 12/20/2014 3:54 AM EST 12/20/2014 4:18 AM EST Narrative Resulting Agency Comment Spec In Lab Bernadette Cintron MD HEMATOLOGY ORDERABLE S CERNER MILLENNIUM * (ABNORMAL) Hemogram (12/20/2014 3:54 AM EST) White Blood Cell 13.6(H) 4.0 - 10.0 x10(3)/mc L CERNER MILLENNIUM Red Blood Cell 2.18(L) 3.93 - 5.22 x10(6)/mc L CERNER MILLENNIUM Hemoglobin 7.3(L) 11.2 - 15.7 gm/dL CERNER MILLENNIUM Hematocrit 21.3(L) 34.0 - 45.0 % CERNER MILLENNIUM Mean Cell Volume 97.7(H) 79.0 - 94.0 fL CERNER MILLENNIUM Mean Cell Hemoglobin 33.5(H) 26.6 - 32.2 pg CERNER MILLENNIUM Mean Cell Hemoglobin Concentration 34.3 32.0 - 36.5 gm/dL CERNER MILLENNIUM Platelet 104(L) 145 - 370 x10(3)/mc L CERNER MILLENNIUM RDW Standard Deviation 61.6(H) 35.0 - 46.0 fL CERNER MILLENNIUM RDW coefficient of variation 17.2(H) 10.9 - 14.4 % CERNER MILLENNIUM Mean Platelet Volume 8.7(L) 9.0 - 12.0 fL CERNER MILLENNIUM Blood specimen (specimen) 12/20/2014 3:54 AM EST 12/20/2014 4:18 AM EST Narrative Resulting Agency Comment Spec In Lab Bernadette Cintron MD HEMATOLOGY ORDERABLE S Performing Organization Address [facility] Phone Number [facility] * Phosphorus (12/20/2014 3:54 AM EST) Phosphorus 3.4 2.5 - 4.5 mg/dL CERNER MILLENNIUM Blood specimen (specimen) 12/20/2014 3:54 AM EST 12/20/2014 4:18 AM EST Narrative Resulting Agency Comment Spec In Lab Justin Foote Jr., MD CHEMISTRY ORDERABLES Performing Organization Address [facility] Phone Number [facility] * (ABNORMAL) Magnesium (12/20/2014 3:54 AM EST) Magnesium 0.54(L) 0.69 - 1.07 mmol/L [facility] Blood specimen (specimen) 12/20/2014 3:54 AM EST 12/20/2014 4:18 AM EST Narrative Resulting Agency Comment Spec In Lab Justin Foote Jr., MD CHEMISTRY ORDERABLES Performing Organization Address [facility] Phone Number [facility] * (ABNORMAL) Basic Metabolic Panel (non-fasting) (12/20/2014 3:54 AM EST) Glucose 136 65 - 199 mg/dL [facility] Comment:Diabetes: >=200 mg/d L plus symptoms Blood Urea Nitrogen 18 8 - 18 mg/dL [facility] Creatinine 1.03 0.70 - 1.20 mg/dL [facility] Comment: Please note that the pediatric reference intervals supplied above were not validated at [facility]. Results from pediatric patients should be interpreted in conjunction to the patient's age, height and muscle mass. Sodium 149(H) 135 - 145 mmol/L CERNER MILLENNIUM Potassium 3.3(L) 3.5 - 5.0 mmol/L [facility] Comment: Please note: ??Patients with WBC >100,000 may have falsely elevated Potassium levels. ??For accurate Potassium quantification in these patients send serum separator tube (gold top) for subsequent determinations. ??Contact the Clinical Chemistry Laboratory if there are any questions. Chloride 112(H) 98 - 107 mmol/L CERNER MILLENNIUM Carbon Dioxide 21(L) 22 - 31 mmol/L CERNER MILLENNIUM Anion Gap 16(H) 5 - 15 mmol/L CERNER MILLENNIUM Calcium 8.3(L) 8.5 - 10.5 mg/dL CERNER MILLENNIUM Comment:result rechecked-NM Est Glomerular Filtration Rate 54(L) >=60 CERNER [...] the following links into your internet browser. [email or web address] Blood specimen (specimen) 12/20/2014 3:54 AM EST 12/20/2014 4:18 AM EST Narrative Resulting Agency Comment Spec In Lab Justin Foote Jr., MD CHEMISTRY ORDERABLES [facility] * Urinalysis with reflex Culture (12/20/2014 2:02 AM EST) Glucose, Urine Dipstick Negative Negative [...] Urine Dipstick Clear Clear CERNER MILLENNIUM Specific [place] Urine Automated 1.014 1.002 - 1.030 CERNER MILLENNIUM Color, Urine Dipstick Straw Yellow CERNER MILLENNIUM RBC, Urine <1 0 - 4 /HPF CERNER MILLENNIUM WBC, Urine 3 0 - 5 /HPF CERNER MILLENNIUM Squamous Epithelial Cells, Urine <1 <=4 /HPF CERNER MILLENNIUM Reflex to Culture No CERNER MILLENNIUM Urine specimen (specimen) 12/20/2014 2:02 AM EST 12/20/2014 2:10 AM EST Narrative Resulting Agency Comment Spec In Lab Bernadette Cintron MD URINE ORDERABLES CERNER MILLENNIUM * XR Chest Pa or AP- 1 View (12/20/2014 12:03 AM EST) Anatomical Region Laterality Modality Chest N/A Digital Radiogra phy Impressions 12/20/2014 2:55 AM EST IMPRESSION: 1. ??No focal consolidation to suggest pneumonia. 2. ??Nonspecific radiodensity projecting over the medial LEFT lung base of uncertain etiology or clinical significance. I have personally reviewed the image(s) and the residents interpretation and agree with the findings, Babatunde Ronquillo at 12/20/2014 2:55 AM Narrative 12/20/2014 2:55 AM EST EXAMINATION: XR CHEST PA OR AP 1 VIEW CLINICAL HISTORY: B Cell lymphoma s/p chemo, spiked temp. TECHNIQUE: AP semiupright view of the chest COMPARISON: Radiograph 12/10/2014 FINDINGS: Right-sided Mediport and left sided central venous catheter both terminate over the mid SVC. Lungs remain clear without focal consolidation. Cardiomediastinal silhouette is similar allowing for differences in technique and patient rotation. Jazzy and pulmonary vasculature are within normal limits. No pleural effusion or pneumothorax identified. Nonspecific radiodensity projecting over the medial LEFT lung base of uncertain etiology or clinical significance. Scattered osseous degenerative changes. Procedure Note Babatunde Ronquillo MD - 12/20/2014 EXAMINATION: XR CHEST PA OR AP 1 VIEW CLINICAL HISTORY: B Cell lymphoma s/p chemo, spiked temp. TECHNIQUE: AP semiupright view of the chest COMPARISON: Radiograph 12/10/2014 FINDINGS: Right-sided Mediport and left sided central venous catheter both terminateover the mid SVC. Lungs remain clear without focal consolidation.Cardiomediastinal silhouette is similar allowing for differences in technique and patient rotation. Jazzy and pulmonary vasculature are within normal limits. Nopleural effusion or pneumothorax identified. Nonspecific radiodensity projectingover the medial LEFT lung base of uncertain etiology or clinicalsignificance. Scattered osseous degenerative changes. IMPRESSION IMPRESSION: 1. No focal consolidation to suggest pneumonia. 2. Nonspecific radiodensity projecting over the medial LEFT lung baseof uncertain etiology or clinical significance. I have personally reviewed the image(s) and the residents interpretationand agree with the findings, Babatunde Ronquillo at 12/20/2014 2:55 AM Bernadette Cintron MD IMG DX ORDERABLES * Blood culture (12/19/2014 11:42 PM EST) Blood Culture No growth at 5 days. GIBRAN COREAS Blood specimen (specimen) STRUCTURE OF RIGHT UPPER LIMB / Unknown 12/19/2014 11:42 PM EST 12/20/2014 12:47 AM EST Narrative Resulting Agency Comment Spec In Lab Bernadette Cintron MD MICROBIOLOGY - BLOOD ORDERABLES Performing Organization Address [facility] de Phone Number [facility] * Blood culture (12/19/2014 11:30 PM EST) Blood Culture No growth at 5 days. GIBRAN COREAS Blood specimen (specimen) 12/19/2014 11:30 PM EST 12/20/2014 12:46 AM EST Comment:TUNNELED LINE Narrative Resulting Agency Comment Spec In Lab Bernadette Cintron MD MICROBIOLOGY - BLOOD ORDERABLES Performing Organization Address [facility]/ZIP Co de Phone Number [facility] * Phosphorus (12/19/2014 3:50 AM EST) Phosphorus 3.2 2.5 - 4.5 mg/dL [facility] Blood specimen (specimen) 12/19/2014 3:50 AM EST 12/19/2014 3:58 AM EST Narrative Resulting Agency Comment Spec In Lab Justin Foote Jr., MD CHEMISTRY ORDERABLES Performing Organization Address [facility] de Phone Number [facility] * Magnesium (12/19/2014 3:50 AM EST) Magnesium 0.86 0.69 - 1.07 mmol/L [facility] Blood specimen (specimen) 12/19/2014 3:50 AM EST 12/19/2014 3:58 AM EST Narrative Resulting Agency Comment Spec In Lab Justin Foote Jr., MD CHEMISTRY ORDERABLES Performing Organization Address [facility] de Phone Number [facility] * (ABNORMAL) Basic Metabolic Panel (non-fasting) (12/19/2014 3:50 AM EST) Pathologist [facility] Glucose 93 65 - 199 mg/dL [facility] Comment:Diabetes: >=200 mg/d L plus symptoms Blood Urea Nitrogen 16 8 - 18 mg/dL [facility] Creatinine 0.96 0.70 - 1.20 mg/dL [facility] Comment: Please note that the pediatric reference intervals supplied above were not validated at [facility]. Results from pediatric patients should be interpreted in conjunction to the patient's age, height and muscle mass. Sodium 143 135 - 145 mmol/L [facility] Potassium 4.0 3.5 - 5.0 mmol/L [facility] Comment: Please note: ??Patients with WBC >100,000 may have falsely elevated Potassium levels. ??For accurate Potassium quantification in these patients send serum separator tube (gold top) for subsequent determinations. ??Contact the Clinical Chemistry Laboratory if there are any questions. Chloride 104 98 - 107 mmol/L [facility] Carbon Dioxide 30 22 - 31 mmol/L CERNER MILLENNIUM Anion Gap 9 5 - 15 mmol/L CERNER MILLENNIUM Calcium 9.4 8.5 - 10.5 mg/dL CERNER MILLENNIUM Est Glomerular Filtration Rate 59(L) >=60 CERNER MILLENNIUM Comment: This estimated GFR [...] the following links into your internet browser. [email or web address] Blood specimen (specimen) 12/19/2014 3:50 AM EST 12/19/2014 3:58 AM EST Narrative Resulting Agency Comment Spec In Lab Justin Foote Jr., MD CHEMISTRY ORDERABLES [facility] * (ABNORMAL) Urinalysis with reflex Culture (12/18/2014 7:50 PM EST) Glucose, Urine Dipstick Negative Negative mg/dL [...] Normal mg/dL CERNER MILLENNIUM pH, Urn (dipstick) 6.0 5.0 - 8.0 CERNER MILLENNIUM Blood, Urine Dipstick Negative Negative mg/dL CERNER MILLENNIUM Ketone, Urine Dipstick Negative Negative mg/dL CERNER MILLENNIUM Nitrite, Urine Dipstick Negative Negative CERNER MILLENNIUM Leukocytes, Urine Dipstick Negative Negative mcL CERNER MILLENNIUM Appearance, Urine Dipstick Clear Clear CERNER MILLENNIUM Specific [place] Urine Automated 1.008 1.002 - 1.030 CERNER MILLENNIUM Color, Urine Dipstick Straw Yellow CERNER MILLENNIUM RBC, Urine Not Present 0 - 4 /HPF CERNER MILLENNIUM WBC, Urine <1 0 - 5 /HPF CERNER MILLENNIUM Bacteria, Urine Rare(A) None /HPF CERN ER MILLENNIUM Squamous Epithelial Cells, Urine <1 <=4 /HPF CERNER MILLENNIUM Reflex to Culture No CERNER MILLENNIUM Urine specimen obtained by clean catch procedure (specimen) 12/18/2014 7:50 PM EST 12/18/2014 8:01 PM EST Narrative Resulting Agency Comment Spec In Lab Justin Foote Jr., MD URINE ORDERABLES [facility]ERN[facility] MILLENNIUM * (ABNORMAL) Urinalysis with reflex Culture (12/18/2014 2:23 PM EST) Glucose, Urine Dipstick Negative Negative mg/dL [...] Negative Negative CERNER MILLENNIUM Leukocytes, Urine Dipstick Trace(A) Negative mcL CERNER MILLENNIUM Appearance, Urine Dipstick Clear Clear CERNER MILLENNIUM Specific [place] Urine Automated 1.013 1.002 - 1.030 CERNER MILLENNIUM Color, Urine Dipstick Straw Yellow CERNER MILLENNIUM RBC, Urine Not Present 0 - 4 /HPF CERNER MILLENNIUM WBC, Urine 1 0 - 5 /HPF CERNER MILLENNIUM Squamous Epithelial Cells, Urine 1 <=4 /HPF CERNER MILLENNIUM Hyaline Casts, Urine 5(H) 0 - 2 /LPF [facility] Reflex to Culture See Note [facility] Comment:No Urine Culture Con tainer Recieved. No Culture Performed. Urine specimen obtained by clean catch procedure (specimen) 12/18/2014 2:23 PM EST 12/18/2014 2:43 PM EST Narrative Resulting Agency Comment Spec In Lab Justin Foote Jr., MD URINE ORDERABLES Performing Organization Address [facility] Phone Number [facility] * Phosphorus (12/18/2014 3:30 AM EST) Phosphorus 3.3 2.5 - 4.5 mg/dL [facility] Blood specimen (specimen) 12/18/2014 3:30 AM EST 12/18/2014 3:44 AM EST Narrative Resulting Agency Comment Spec In Lab Justin Foote Jr., MD CHEMISTRY ORDERABLES Performing Organization Address [facility] de Phone Number [facility] * (ABNORMAL) Magnesium (12/18/2014 3:30 AM EST) Magnesium 0.61(L) 0.69 - 1.07 mmol/L [facility] Blood specimen (specimen) 12/18/2014 3:30 AM EST 12/18/2014 3:44 AM EST Narrative Resulting Agency Comment Spec In Lab Justin Foote Jr., MD CHEMISTRY ORDERABLES Performing Organization Address [facility] de Phone Number [facility] * (ABNORMAL) Basic Metabolic Panel (non-fasting) (12/18/2014 3:30 AM EST) Glucose 116 65 - 199 mg/dL [facility] Comment:Diabetes: >=200 mg/d L plus symptoms Blood Urea Nitrogen 23(H) 8 - 18 mg/dL [facility] Creatinine 0.97 0.70 - 1.20 mg/dL [facility] Comment: Please note that the pediatric reference intervals supplied above were not validated at [facility]. Results from pediatric patients should be interpreted in conjunction to the patient's age, height and muscle mass. Sodium 137 135 - 145 mmol/L CERNER MILLENNIUM Potassium 4.3 3.5 - 5.0 mmol/L CERNER MILLENNIUM Comment: [...] - 31 mmol/L CERNER MILLENNIUM Anion Gap 9 5 - 15 mmol/L CERN[facility] MILLENNIUM Calcium 8.8 8.5 - 10.5 mg/dL CERNER MILLENNIUM Est Glomerular Filtration Rate 58(L) >=60 CERNER MILLENNIUM Comment: This estimated GFR [...] the following links into your internet browser. [email or web address] Blood specimen (specimen) 12/18/2014 3:30 AM EST 12/18/2014 3:44 AM EST Narrative Resulting Agency Comment Spec In Lab Justni Foote Jr., MD CHEMISTRY ORDERABLES [facility]ER DEWAYNEENNIUM * (ABNORMAL) Differential, Automated (12/17/2014 2:00 PM EST) Neutrophil % 69.6 % CERNER MILLENNIUM Neutrophil Absolute 3.74 1.50 - 6.30 x10(3)/mc L CERNER MILLENNIUM Lymph % 17.1 % CERNER MILLENNIUM Lymphocytes Abs 0.9(L) 1.0 - 3.6 x10(3)/mc L CERNER MILLENNIUM Monocyte % 8.6 % CERNER MILLENNIUM Monocyte Abs 0.5 0.2 - 1.0 x10(3)/mc L CERNER MILLENNIUM Eos % 4.5 % CERNER MILLENNIUM Eosinophils Abs 0.2 0.0 - 0.5 x10(3)/mc L CERNER MILLENNIUM Basophil % 0.2 % CERNER MILLENNIUM Baso Absolute 0.0 0.0 - 0.2 x10(3)/mc L CERNER MILLENNIUM Immature Gran % 0.00 % CERN ER MILLENNIUM Comment: Immature granulocytes(IG's)percentage and absolute count will include metamyelocytes, myelocytes, and promyelocytes. Blood smears from CBCs yielding IG's will be scanned manually for concordance. If this scan disagrees with the automated IG or if promyelocytes are noted, a manual differential will be performed. Immature Gran Absolute 0.00 0.00 - 0.05 x10(3)/mc L CERNER MILLENNIUM Blood specimen (specimen) 12/17/2014 2:00 PM EST 12/17/2014 2:21 PM EST Narrative Resulting Agency Comment Spec In Lab Justin Foote Jr., MD HEMATOLOGY ORDERABLE S CERNER MILLENNIUM * (ABNORMAL) Hemogram (12/17/2014 2:00 PM EST) White Blood Cell 5.4 4.0 - 10.0 x10(3)/mc L CERNER MILLENNIUM Red Blood Cell 2.58(L) 3.93 - 5.22 x10(6)/mc L CERNER MILLENNIUM Hemoglobin 8.7(L) 11.2 - 15.7 gm/dL CERNER MILLENNIUM Hematocrit 24.6(L) 34.0 - 45.0 % CERNER MILLENNIUM Mean Cell Volume 95.3(H) 79.0 - 94.0 fL CERNER MILLENNIUM Mean Cell Hemoglobin 33.7(H) 26.6 - 32.2 pg CERNER MILLENNIUM Mean Cell Hemoglobin Concentration 35.4 32.0 - 36.5 gm/dL CERNER MILLENNIUM Platelet 165 145 - 370 x10(3)/mc L GIBRAN GEEIUM RDW Standard Deviation 57.4(H) 35.0 - 46.0 fL GIBRAN BUCHANANENNIUM RDW coefficient of variation 16.7(H) 10.9 - 14.4 % GIBRAN BUCHANANENNIUM Mean Platelet Volume 8.7(L) 9.0 - 12.0 fL GIBRAN GEEIUM Blood specimen (specimen) 12/17/2014 2:00 PM EST 12/17/2014 2:21 PM EST Narrative Resulting Agency Comment Spec In Lab Justin Foote Jr., MD HEMATOLOGY ORDERABLE S GIBRAN COREAS documented in this encounter Visit Diagnoses Diagnosis 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 Lymphoma Other malignant lymphomas, unspecified site, extranodal and solid organ sites Hypomagnesemia Disorders of magnesium metabolism Chemotherapy adverse reaction, subsequent encounter Chemotherapy adverse reaction, initial encounter Chemotherapy adverse reaction Antineoplastic and immunosuppressive drugs causing adverse effect in therapeutic use documented in this encounter Administered Medications Inactive Administered Medications - up to 3 most recent administrations Medication Order MAR Action Action Date Dose Rate Site acetaminophen (TYLENOL) tablet 650 mg 650 mg, Oral, ONCE, 1 dose, On 12/23/14 at 1330, Administer 30 minutes prior to stem cell administration on Day (0)., Routine Given 12/23/2014 1:34 PM EST 650 mg acetaminophen (TYLENOL) tablet 650 mg 650 mg, Oral, EVERY 4 HOURS PRN, Starting on Cece 12/19/14 at 1652, Until 01/05/15 at 1824, Pain, For fever spike after or during Etoposide infusion (do not give more than 2 hours after Etoposide infusion). Maximum dose of acetaminophen is 4000 mg from all sources in 24 hours., Routine Given 12/19/2014 11:57 PM EST 650 mg acyclovir (ZOVIRAX) Oral suspension 800 mg 800 mg, Oral, 2 TIMES DAILY, First dose on 12/29/14 at 0930, Until Discontinued, Routine Given 01/02/2015 8:31 PM EST 800 mg Given 01/02/2015 10:03 AM EST 800 mg Given 01/01/2015 8:20 PM EST 800 mg acyclovir (ZOVIRAX) tablet 800 mg 800 mg, Oral, 2 TIMES DAILY, First dose on Tue12/17/14 at 2100, Until Discontinued, Beginning on day (-6). May give acyclovir 250 mg / m2 / dose IV every 12 hours if unable to take by mouth. Consider using ideal body weight for intravenous dosing when dosing obese patients (per Clinical Pharmacology). Debord body weight IBW (male) in kg = 50 + 2.3 kg per inch over 5 feet. IBW (female) in kg = 45.5 + 2.3 kg per inch over 5 feet., Routine, Indication for (Active or Suspected): Prophylaxis / Pre-Approved for HSCT Given 12/28/2014 8:54 PM EST 800 mg Given 12/28/2014 10:12 AM EST 800 mg Given 12/27/2014 8:30 PM EST 800 mg acyclovir (ZOVIRAX) tablet 800 mg 800 mg, Oral, 2 TIMES DAILY, First dose on Tue01/03/15 at 0915, Until Discontinued, Routine, Indication for (Active or Suspected): Prophylaxis Given 01/04/2015 8:47 AM EST 800 mg Given 01/03/2015 10:18 PM EST 800 mg Given 01/03/2015 11:31 AM EST 800 mg aprepitant (EMEND) capsule 125 mg 125 mg, Oral, ONCE, 1 dose, On 12/21/14 at 1300, Administer prior to cyclophosphamide once on day (-2)., Routine Given 12/21/2014 1:10 PM EST 125 mg aprepitant (EMEND) capsule 80 mg 80 mg, Oral, DAILY, 2 doses, First dose on Tue12/22/14 at 0900, Last dose on Tue12/23/14 at 0900, Administer daily on day (-1) and day (0)., Routine Given 12/23/2014 8:58 AM EST 80 mg Given 12/22/2014 9:24 AM EST 80 mg bacitracin ointment Topical (Top), 2 TIMES DAILY, First dose on Tue12/27/14 at 1100, Until Discontinued, Apply to left chest open area from tunneled line suture site. Cover with bandaid. Given 12/27/2014 12:43 PM EST bacitracin ointment Topical (Top), DAILY, First dose (after last modification) on 12/28/14 at 0900, Until Discontinued, Please clean left chest open areas with chlorohexadine wand. Apply bacitracin and cover with bandaid. Please remove dressings and leave [facility] for showers. Then re-dress with bacitracin and bandaid. Assess site for infection (erythema and drainage) and please inform providers. Given 01/05/2015 10:14 AM EST Given 01/04/2015 1:45 PM EST Given 01/03/2015 9:00 AM EST camphor-menthol (SARNA) lotion Topical (Top), 3 TIMES DAILY, First dose on Tue12/25/14 at 1200, Until Discontinued, For abdomen rash. Given 12/26/2014 8:59 PM EST Given 12/26/2014 3:24 PM EST Given 12/26/2014 8:21 AM EST carmustine (BICNU) 825 mg in dextrose 5% 747.5 mL chemo infusion 825 mg (15 mg/kg/dose ? 55 kg Treatment plan adjusted weight), Intravenous, ONCE, 1 dose, On Tue12/17/14 at 2200, Administer over 3 Hours, Carmustine ONLY compatible with D5W. Given once on Day (-6). Max dose 550 mg/m2. Delay carmustine if greater than or equal to 2 grams acetaminophen taken within 72 hours prior to dose or if the patient has had ANY acetaminophen 24 hours prior to carmustine. Alert provider immediately. Avoid acetaminophen for 24 hours after carmustine. Carmustine light-protected in a minimum volume of 500 mL. New Bag 12/17/2014 10:03 PM EST 825 mg 249.2 mL/hr cephalexin (KEFLEX) capsule 500 mg 500 mg, Oral, 4 TIMES DAILY, First dose (after last reorder) on 12/23/14 at 0900, Until Discontinued, Using for prophylaxis due to intolerance to levofloxacin., Routine, Indication for (Active or Suspected): Prophylaxis / HSCT Given 01/04/2015 8:47 AM EST 500 mg Given 01/03/2015 8:37 PM EST 500 mg Given 01/03/2015 4:57 PM EST 500 mg cyclophosphamide (CYTOXAN) 5,500 mg in dextrose 5% 775 mL chemo infusion 5,500 mg (100 mg/kg/dose ? 55 kg Treatment plan adjusted weight), Intravenous, ONCE, 1 dose, On 12/21/14 at 1400, Administer over 120 Minutes, Given once on Day (-2). EKG to be done before dose of cyclophosphamide and signed off by Manager Package. Hold cyclophosphamide for abnormal electrocardiogram. New Bag 12/21/2014 2:33 PM EST 5,500 mg 387.5 mL/hr diphenhydrAMINE (BENADRYL) capsule 50 mg 50 mg, Oral, ONCE, 1 dose, On 12/23/14 at 1330, Administer 30 minutes prior to stem cell administration on Day (0)., Routine Given 12/23/2014 1:34 PM EST 50 mg diphenhydrAMINE (BENADRYL) injection 25 mg 25 mg, Intravenous, ONCE, 1 dose, On Cece 12/19/14 at 1330, Administer 30 minutes prior to etoposide on day (-4)., Routine Given 12/19/2014 1:48 PM EST 25 mg diphenhydrAMINE (BENADRYL) injection 25 mg 25 mg, Intravenous, ONCE, 1 dose, On Cece 12/19/14 at 1600, Administer 2 hours after start of etoposide infusion on day (-4)., Routine Given 12/19/2014 3:51 PM EST 25 mg diphenhydrAMINE (BENADRYL) injection 25 mg 25 mg, Intravenous, ONCE, 1 dose, On 12/24/14 at 1730, Routine Given 12/24/2014 5:26 PM EST 25 mg diphenhydrAMINE (BENADRYL) injection 25 mg 25 mg, Intravenous, ONCE, 1 dose, On Cece 12/26/14 at 1400, Routine Given 12/26/2014 1:10 PM EST 25 mg diphenhydrAMINE/aluminum-magnesium hydroxide/lidocaine (BMX) 1:1:1 Oral Suspension 10 mL, Oral, ONCE, On 12/28/14 at 0545, 1 dose, Each 5mL contains equal parts of Maalox, Lidocaine, and Diphenhydramine Given 12/28/2014 6:56 AM EST 10 mLs diphenhydrAMINE/aluminum-magnesium hydroxide/lidocaine (BMX) 1:1:1 Oral Suspension 5 mL, Oral, EVERY 4 HOURS PRN, mouth pain, Starting on 12/28/14 at 0945, Until 12/30/14 at 0937, Each 5mL contains equal parts of Maalox, Lidocaine, and Diphenhydramine Given 12/30/2014 3:39 AM EST 5 mLs Given 12/29/2014 4:24 PM EST 5 mLs Given 12/29/2014 9:22 AM EST 5 mLs diphenhydrAMINE/aluminum-magnesium hydroxide/lidocaine (BMX) 1:1:1 Oral Suspension 5 mL, Oral, EVERY 2 HOURS, First dose (after last modification) on Tue12/30/14 at 1000, Until Discontinued, Each 5mL contains equal parts of Maalox, Lidocaine, and Diphenhydramine Given 12/31/2014 6:57 AM EST 5 mLs Given 12/31/2014 4:42 AM EST 5 mLs Given 12/31/2014 2:32 AM EST 5 mLs diphenhydrAMINE/aluminum-magnesium hydroxide/lidocaine (BMX) 1:1:1 Oral Suspension 5 mL, Oral, EVERY 2 HOURS PRN, mucositis, Starting on Tue12/31/14 at 0845, Until Tue01/05/15 at 1824, Each 5mL contains equal parts of Maalox, Lidocaine, and Diphenhydramine Given 01/03/2015 4:51 AM EST 5 mLs Given 01/02/2015 11:25 PM EST 5 mLs Given 01/02/2015 8:29 PM EST 5 mLs docusate sodium (COLACE) capsule 100 mg 100 mg, Oral, 2 TIMES DAILY, First dose on Tue12/17/14 at 2100, Until Discontinued, Routine Given 12/19/2014 9:58 AM EST 100 mg Given 12/18/2014 8:39 PM EST 100 mg Given 12/18/2014 8:41 AM EST 100 mg enoxaparin (LOVENOX) injection 40 mg 40 mg, Subcutaneous, DAILY, First dose on Tue12/17/14 at 2100, Until Discontinued, VOD prophylaxis in light of historic LFT elevation. Hold when platelets dip below 10K. Transfuse with 1 unit of platelets and give Lovenox after platelet infusion., Routine Given 01/04/2015 8:48 AM EST 40 mg Given 01/03/2015 9:55 AM EST 40 mg Given 01/02/2015 10:00 AM EST 40 mg escitalopram oxalate (LEXAPRO) tablet 10 mg 10 mg, Oral, DAILY, First dose on Tue12/18/14 at 0900, Until Discontinued, Routine Given 01/05/2015 9:06 AM EST 10 mg Given 01/04/2015 8:48 AM EST 10 mg Given 01/03/2015 9:03 AM EST 10 mg esomeprazole (NexIUM) capsule 40 mg 40 mg, Oral, DAILY, First dose on Tue12/17/14 at 2100, Until Discontinued, Give IV if unable to take by mouth. Pharmacy will send IV only upon request., Routine Given 01/05/2015 9:06 AM EST 40 mg Given 01/04/2015 8:48 AM EST 40 mg Given 01/03/2015 9:02 AM EST 40 mg etoposide (VEPESID) chemo injection 3,300 mg 3,300 mg (60 mg/kg/dose ? 55 kg Treatment plan adjusted weight), Intravenous, ONCE, 1 dose, On Cece 12/19/14 at 1400, Administer over 4 Hours, Given once on Day (-4). Place etoposide in a non-PVC container as undiluted drug and infuse via low-absorption tubing without a filter, and Y'd into the lower port of normal saline running at 1,000 mL/hour. See accompanying orders for premeds and hydration. Given 12/19/2014 2:34 PM EST 3,300 m g 41.3 mL/hr filgrastim (NEUPOGEN) injection 480 mcg 480 mcg, Subcutaneous, DAILY, First dose on 12/28/14 at 0900, Until Discontinued, 5 mcg/kg subcutaneously once daily beginning on day (+5) and until ANC greater than 1,500 mm^3 x 2 days or ANC greater than 5,000 mm^3 once post engraftment. Round dose based on actual weight: 1) For patient less than 60 kg give 300 mcg subcutaneously once daily. 2) For patient weight 60 - 99 kg give 480 mcg subcutaneously once daily. 3) For patient weight 100 - 130 kg give 600 mcg subcutaneously once daily. 4) For patient weight greater than 130 kg give 780 mcg subcutaneously once daily, Routine Given 01/03/2015 9:55 AM EST 480 mcg Given 01/02/2015 10:02 AM EST 480 mcg Given 01/01/2015 9:08 AM EST 480 mcg fluconazole (DIFLUCAN) tablet 400 mg 400 mg, Oral, DAILY, First dose on 12/23/14 at 0900, Until Discontinued, Begin on Day 0. May give IV if patient unable to take by mouth. Discontinue if other antifungal started., Routine, Indication for (Active or Suspected): Prophylaxis / Pre-Approved fro HSCT Given 01/04/2015 8:48 AM EST 400 mg Given 01/03/2015 9:02 AM EST 400 mg Given 01/02/2015 9:57 AM EST 400 mg heparin, porcine 100 unit/mL flush 500 Units 500 Units, Intercatheter, ONCE, 1 dose, On Tue12/17/14 at 1415, Routine Given 12/17/2014 2:12 PM EST 500 Units heparin, porcine 100 unit/mL flush 500 Units 500 Units, Intravenous, ONCE PRN, Starting on Tue12/17/14 at 1614, Until 01/05/15 at 1824, Line Care, Refer to Intravenous (IV) Procedure: Accessing Implanted Vascular Access Devices (811) procedure and/or Intravenous (IV) Job Aid: Adult Flushing & Catheter Care (3026) job aid for additional information regarding guidelines and administration., Routine Given 01/05/2015 3:49 PM EST 500 Units Given 01/03/2015 4:05 PM EST 500 Units hydrocortisone 1 % cream Topical (Top), 2 TIMES DAILY, First dose on Tue12/31/14 at 1000, Until Discontinued, Apply to hemorrhoid site Given 01/02/2015 10:05 AM EST Given 01/01/2015 8:23 PM EST Given 01/01/2015 9:08 AM EST hydrocortisone 1 % cream Topical (Top), 4 TIMES DAILY, First dose on Tue01/02/15 at 1300, Until Discontinued Given 01/05/2015 9:00 AM EST Given 01/04/2015 1:45 PM EST Given 01/03/2015 8:41 PM EST hydrocortisone sodium succinate (PF) (Solu-CORTEF) injection 65 mg 65 mg (rounded from 66.5 mg = 1 mg/kg/dose ? 66.5 kg Treatment plan Recorded weight), Intravenous, ONCE, 1 dose, On Cece 12/19/14 at 1330, Administer 30 minutes prior to etoposide on day (-4). Given 12/19/2014 1:48 PM EST 65 mg hydrocortisone sodium succinate (PF) (Solu-CORTEF) injection 65 mg 65 mg (rounded from 66.5 mg = 1 mg/kg/dose ? 66.5 kg Treatment plan Recorded weight), Intravenous, ONCE, 1 dose, On Cece 12/19/14 at 1600, Administer 2 hours after start of etoposide infusion on day (-4). Given 12/19/2014 3:53 PM EST 65 mg lactated ringers infusion 500 mL/hr, Intravenous, ONCE, 1 dose, On Tue12/18/14 at 1430, 500 cc over 30 minutes. Thank you. New Bag 12/18/2014 2:30 PM EST 500 mL/hr 500 mL/hr lactated ringers infusion 200 mL/hr, Intravenous, ONCE, 1 dose, On Tue12/27/14 at 0930, 1 Liter New Bag 12/27/2014 12:44 PM EST 200 mL/hr 200 mL/hr lactated ringers infusion 150 mL/hr, Intravenous, ONCE, 1 dose, On Tue12/30/14 at 1000, Admin only 1 litre please New Bag 12/30/2014 10:36 AM EST 150 mL/hr 150 mL/hr lactated ringers infusion 150 mL/hr, Intravenous, ONCE, 1 dose, On Tue12/31/14 at 1000, For 1 Liter New Bag 12/31/2014 1:41 PM EST 150 mL/hr 150 mL/hr lactated ringers infusion 150 mL/hr, Intravenous, ONCE, 1 dose, On Tue12/31/14 at 2000, For 1 Liter (total of two Liters for 12/31) New Bag 12/31/2014 8:00 PM EST 150 mL/hr 150 mL/hr lactated ringers infusion 200 mL/hr, Intravenous, CONTINUOUS, Starting on Tue01/01/15 at 1100, Until Tue01/01/15 at 1559, Total of 1 litre. New Bag 01/01/2015 11:09 AM EST 200 mL/hr 200 mL/hr lactated ringers infusion 200 mL/hr, Intravenous, ONCE, 1 dose, On Tue01/02/15 at 1015, 2L of IVF New Bag 01/02/2015 10:30 AM EST 200 mL/hr 200 mL/hr lactated ringers infusion 250 mL/hr, Intravenous, ONCE, 1 dose, On Tue01/03/15 at 0845, 1L of IVF New Bag 01/03/2015 4:50 PM EST 250 mL/hr 250 mL/hr lidocaine (XYLOCAINE) 10 mg/mL (1 %) injection 3 mg 3 mg (0.3 mL), Subcutaneous, ONCE PRN, 1 dose, Starting on Tue12/17/14 at 1657, Until Tue01/03/15 at 1605, for discomfort with PIV insertion, Routine Given 01/03/2015 4:05 PM EST 3 mg loperamide (IMMODIUM) capsule 2 mg 2 mg, Oral, ONCE, 1 dose, On Tue12/31/14 at 1430, Do not exceed 16 mg/day., Routine Given 12/31/2014 3:06 PM EST 2 mg loperamide (IMMODIUM) capsule 2 mg 2 mg, Oral, ONCE, 1 dose, On Cece 01/02/15 at 1015, Do not exceed 16 mg/day., Routine Given 01/02/2015 10:07 AM EST 2 mg loperamide (IMMODIUM) capsule 2 mg 2 mg, Oral, ONCE, 1 dose, On Tue01/03/15 at 0845, Do not exceed 16 mg/day., Routine Given 01/03/2015 9:02 AM EST 2 mg LORazepam (ATIVAN) injection 0.5 mg 0.5 mg, Intravenous, EVERY 4 HOURS PRN, Starting on Tue12/17/14 at 1614, Until Tue01/05/15 at 1824, Anxiety, Nausea, If multiple antiemetics are ordered, use in the following sequence: Ondansetron>Prochlorperazine or Promethazine>Lorazepam>Metoclopr amide May repeat once in 30 minutes if prior dose is ineffective. One repeat dose may be given within each 4-hour interval., Routine Given 12/21/2014 4:48 PM EST 0.5 mg Given 12/18/2014 12:47 AM EST 0.5 mg LORazepam (ATIVAN) tablet 0.5 mg 0.5 mg, Oral, EVERY 6 HOURS, First dose on Tue12/17/14 at 1730, Until Discontinued, Routine Given 01/05/2015 3:56 PM EST 0.5 mg Given 01/05/2015 9:21 AM EST 0.5 mg Given 01/04/2015 9:21 PM EST 0.5 mg magnesium sulfate 1g in dextrose 5% 100mL 1 g, Intravenous, EVERY 1 HOUR PRN, Starting on Tue12/17/14 at 1614, Until 01/05/15 at 1824, Administer over 60 Minutes, HSCT Electrolyte Replacement, Please consider using oral supplementation whenever possible If serum magnesium is between 0.51 - 0.69 mMol/L, give a total of 4 grams of magnesium sulfate as follows: magnesium sulfate 2 grams IV infused over 2 hours for 2 doses. If serum magnesium is less than or equal to 0.5 mMol/L, notify house wrecker and give 5 grams of magnesium sulfate as follows: magnesium sulfate 2 grams IV infused over 2 hours for 2 doses followed by magnesium sulfate 1 gram IV infused over 1 hour once. Discontinue these orders and have house wrecker order electrolytes if serum creatinine is greater than or equal to 1.7 mg/dL or if patient is receiving parenteral nutrition. Given 12/22/2014 1:52 PM EST 1 g 100 mL/hr magnesium sulfate 2 g in sterile water 50 mL 2 g, Intravenous, EVERY 2 HOURS PRN, Starting on Tue12/17/14 at 1614, Until 01/05/15 at 1824, Administer over 120 Minutes, HSCT Electrolyte Replacement, Please consider using oral supplementation whenever possible If serum magnesium is between 0.51 - 0.69 mMol/L, give a total of 4 grams of magnesium sulfate as follows: magnesium sulfate 2 grams IV infused over 2 hours for 2 doses. If serum magnesium is less than or equal to 0.5 mMol/L, notify house wrecker and give 5 grams of magnesium sulfate as follows: magnesium sulfate 2 grams IV infused over 2 hours for 2 doses followed by magnesium sulfate 1 gram IV infused over 1 hour once. Discontinue these orders and have house wrecker order electrolytes if serum creatinine is greater than or equal to 1.7 mg/dL or if patient is receiving parenteral nutrition. Given 01/05/2015 10:15 AM EST 2 g 25 mL/hr Given 01/05/2015 7:43 AM EST 2 g 25 mL/hr Given 01/03/2015 8:33 PM EST 2 g 25 mL/hr meperidine (PF) (DEMEROL) 25 mg/mL carpuject 25 mg 25 mg, Intravenous, ONCE, 1 dose, On Cece 12/19/14 at 2230, Routine Given 12/19/2014 10:15 PM EST 25 mg mesna (MESNEX) 3,990 mg in dextrose 5% 539.9 mL infusion 3,990 mg (60 mg/kg/dose ? 66.5 kg Treatment plan Recorded weight), Intravenous, EVERY 12 HOURS, 2 doses, First dose on Tue12/21/14 at 1300, Last dose on Tue12/22/14 at 0100, Administer over 12 Hours, Use actual weight. Administer mesna as a continuous infusion beginning one hour prior to cyclophosphamide on day (-2); administer each 12 hour bag of mesna in 500 mL 5% dextrose in water. New Bag 12/22/2014 12:59 AM EST 3,990 mg 45 mL/hr New Bag 12/21/2014 1:16 PM EST 3,990 mg 45 mL/hr nystatin (MYCOSTATIN) 100,000 unit/mL oral suspension 500,000 Units 500,000 Units, Oral, 4 TIMES DAILY, First dose on Tue12/23/14 at 1100, Until Discontinued, Please use as last rinse. Wait 30 minutes before eating or drinking after using., Routine Given 12/25/2014 9:19 PM EST 500,000 Un its Given 12/25/2014 6:52 PM EST 500,000 Units Given 12/25/2014 1:23 PM EST 500,000 Units ondansetron (ZOFRAN) 16 mg in sodium chloride 0.9% 58 mL 16 mg, Intravenous, EVERY 12 HOURS, 6 doses, First dose on Tue12/18/14 at 0930, Last dose on Tue12/20/14 at 2130, Administer over 15 Minutes Given 12/20/2014 10:10 PM EST 16 mg 232 mL/hr Given 12/20/2014 8:59 AM EST 16 mg 232 mL/hr Given 12/19/2014 10:21 PM EST 16 mg 232 mL/hr ondansetron (ZOFRAN) 8 mg in sodium chloride 0.9% 50 mL 8 mg, Intravenous, EVERY 8 HOURS PRN, Starting on Tue12/24/14 at 0900, Until Tue01/05/15 at 1824, Administer over 15 Minutes, Nausea, Vomiting, Beginning on Day (+1). If multiple antiemetics are ordered, use in the following sequence: Ondansetron>Prochlorperazine or Promethazine>Lorazepam>Metoclopramide Maximum dose 32 mg per day. Given 01/03/2015 5:30 PM EST 8 mg 216 mL/hr Given 12/29/2014 9:34 AM EST 8 mg 216 mL/hr ondansetron (ZOFRAN) tablet 16 mg 16 mg, Oral, EVERY 12 HOURS, 7 doses, First dose on Tue12/17/14 at 2100, Last dose on Tue12/20/14 at 2100, Administer every 12 hours beginning on day (-6) and ongoing through day (-3). Maximum daily dose 32 mg., Routine Given 12/17/2014 8:29 PM EST 16 mg oxyCODONE (ROXICODONE) immediate release tablet 5 mg 5 mg, Oral, EVERY 6 HOURS PRN, Starting on Tue12/17/14 at 1657, Until 01/05/15 at 1824, Pain, Headache, line pain, joint pain, Routine Given 01/02/2015 10:00 AM EST 5 mg Given 01/01/2015 12:11 PM EST 5 mg Given 12/31/2014 11:41 PM EST 5 mg palonosetron (ALOXI) injection 0.25 mg 0.25 mg, Intravenous, ONCE, 1 dose, On 12/21/14 at 1300, Administer on day (-2) one hour prior to cyclophosphamide., Routine Given 12/21/2014 1:10 PM EST 0.2 5 mg polyethylene glycol (MIRALAX) packet 17 g 17 g, Oral, DAILY PRN, Starting on Tue12/20/14 at 1531, Until 01/05/15 at 1824, Constipation, please mix in 4-8 oz of juice or flavored beverage., Routine Given 12/20/2014 4:11 PM EST 17 g potassium chloride (K-DUR/KLOR-CON) extended release tablet 20 mEq 20 mEq, Oral, EVERY 4 HOURS PRN, Starting on Tue12/17/14 at 1614, Until 01/05/15 at 1824, HSCT Electrolyte Replacement, If serum potassium is between 3.5 to 4 mMol/L give potassium chloride 20 mEq Extended Release tablet orally for 2 doses. May give IV if unable to take orally. Discontinue these orders and have house wrecker order electrolytes if serum creatinine is greater than or equal to 1.7 mg/dL or if patient is receiving parenteral nutrition., Routine Given 12/31/2014 3:11 PM EST 20 mEq Given 12/31/2014 11:24 AM EST 20 mEq Given 12/25/2014 1:23 PM EST 20 mEq potassium chloride 20 mEq in 100 mL 20 mEq, Intravenous, EVERY 1 HOUR PRN, Starting on Tue12/17/14 at 1614, Until Tue01/05/15 at 1824, Administer over 60 Minutes, HSCT Electrolyte Replacement, If serum potassium is between 3.5 to 4 mMol/L give Potassium Chloride 20 mEq/100 mL IV over one hour for 2 doses if unable to take orally. If serum potassium is between 3 to 3.4 mMol/L give Potassium Chloride 20 mEq/100 mL IV over 1 hour for 4 doses if unable to take orally. If serum potassium is less than or equal to 2.9 mMol/L, notify house wrecker and give Potassium Chloride 20 mEq/100 mL IV over 1 hour for 5 doses. Discontinue these orders and have house wrecker order electrolytes if serum creatinine is greater than or equal to 1.7 mg/dL or if patient is receiving parenteral nutrition. Given 01/05/2015 9:02 AM EST 20 mEq 100 mL/hr Given 01/05/2015 7:43 AM EST 20 mEq 100 mL/hr Given 01/03/2015 7:41 AM EST 20 mEq 100 mL/hr prochlorperazine (COMPAZINE) injection 10 mg 10 mg, Intravenous, EVERY 6 HOURS PRN, Starting on Tue12/17/14 at 1614, Until Tue01/05/15 at 1824, Nausea, Vomiting, If multiple antiemetics are ordered, use in the following sequence: Ondansetron>Prochlorperazine or Promethazine>Lorazepam>Metoclopramide, Routine Given 12/30/2014 9:21 AM EST 10 mg Given 12/29/2014 6:32 AM EST 10 mg Given 12/23/2014 12:42 PM EST 10 mg senna (SENOKOT) tablet 8.6 mg 8.6 mg, Oral, DAILY, First dose on Tue12/17/14 at 2100, Until Discontinued, Routine Given 12/20/2014 10:0 4 AM EST 8.6 mg Given 12/19/2014 9:59 AM EST 8.6 mg senna-docusate (PERICOLACE) 8.6-50 mg per tablet 1 tablet 1 tablet, Oral, 3 TIMES DAILY, First dose on Tue12/19/14 at 1700, Until Discontinued, Routine Given 12/20/2014 8:26 PM EST 1 tablet Given 12/20/2014 3:22 PM EST 1 tablet Given 12/20/2014 10:04 AM EST 1 tablet sodium chloride 0.9 % flush 10 mL 10 mL, Intravenous, DAILY PRN, Starting on Tue12/27/14 at 0859, Until Tue01/05/15 at 1824, For use when accessing Implantable Port, Routine Given 12/29/2014 9:58 PM EST 10 mLs sodium chloride 0.9 % flush 5 mL 5 mL, Intravenous, 2 TIMES DAILY, First dose on Tue12/17/14 at 2100, Until Discontinued, Routine Given 01/04/2015 9:16 PM EST 5 mLs Given 01/03/2015 9:05 PM EST 10 mLs Given 01/03/2015 9:04 AM EST 5 mLs sodium chloride 0.9 % flush 5 mL 5 mL, Intravenous, EVERY 12 HOURS, First dose on Tue12/26/14 at 0915, Until Discontinued, Routine Given 01/02/2015 10:05 AM EST 5 mLs Given 12/31/2014 11:23 AM EST 5 mLs Given 12/30/2014 9:04 PM EST 5 mLs sodium chloride 0.9% infusion 200 mL/hr, Intravenous, CONTINUOUS, Starting on Tue12/17/14 at 1800, Until Tue12/18/14 at 0259, Hydration for day (-6) (carmustine hydration): Give 0.9% sodium chloride IV at 200 mL/hour x 4 hours before carmustine. Hold during carmustine. Restart at 200 mL/hour for 2 hours after carmustine. New Bag 12/18/2014 1:21 AM EST 200 mL/hr 200 mL/hr New Bag 12/17/2014 5:55 PM EST 200 mL/hr 200 mL/hr sodium chloride 0.9% infusion 1,000 mL/hr, Intravenous, CONTINUOUS, Starting on Tue12/19/14 at 1400, Until Tue12/19/14 at 1759, Hydration for day (-4) (etoposide hydration): Concurrent with (Y-Site with) etoposide run IV 0.9% sodium chloride IV at 1,000 mL/hour x 4 hours. New Bag 12/19/2014 4:46 PM EST 1,000 mL/hr 1000 m L/hr New Bag 12/19/2014 2:34 PM EST 1,000 mL/hr 1000 mL/hr sodium chloride 0.9% infusion 125-500 mL/hr, Intravenous, CONTINUOUS, Starting on Cece 12/19/14 at 1800, Until Cece 12/19/14 at 2159, Post etoposide Day (-4), run 0.9% sodium chloride IV at 500 mL/hour for 30 minutes, then at 250 mL/hour for 30 minutes, then at 125 mL/hour for 3 hours, then stop. Continued Bag 12/19/2014 7:58 PM EST 125 mL/hr 125 mL/hr New Bag 12/19/2014 7:22 PM EST 250 mL/hr 250 mL/hr New Bag 12/19/2014 6:44 PM EST 500 mL/hr 500 mL/hr sodium chloride 0.9% infusion 250 mL/hr, Intravenous, CONTINUOUS, Starting on 12/21/14 at 1300, Until 12/21/14 at 2159, Hydration for day (-2) (cyclophosphamide hydration): Give 0.9% sodium chloride IV at 250 mL/hour starting one hour prior to cyclophosphamide and continuing for at least six hours after completion of the cyclophosphamide (total 9 hours). New Bag 12/21/2014 5:52 PM EST 250 mL/hr 250 mL/hr New Bag 12/21/2014 1:08 PM EST 250 mL/hr 250 mL/hr sodium chloride 0.9% infusion 250 mL/hr, Intravenous, CONTINUOUS, Starting on 12/23/14 at 1000, Until 12/23/14 at 1559, 1) Give 0.9% sodium chloride IV at 250 mL/hour for 4 hours prior to stem cell infusion. 2) Hold hydration during stem cell administration. 3) After stem cell infusion completed, restart 0.9% sodium chloride IV at 250 mL/hour for 2 hours. 4) Call provider after day (0) hydration completed to assess need for diuretic New Bag 12/23/2014 2:27 PM EST 250 mL/hr 250 mL/hr New Bag 12/23/2014 10:01 AM EST 250 mL/hr 250 mL/hr sodium chloride 0.9% infusion 100 mL/hr, Intravenous, CONTINUOUS, Starting on 12/28/14 at 1600, Until 12/29/14 at 0359 New Bag 12/28/2014 3:58 PM EST 100 mL/hr 100 mL/hr supersaturated calcium phosphate (CAPHOSOL) oral solution 30 mL 30 mL, Oral, 4 TIMES DAILY, First dose on Tue12/17/14 at 2100, Until Discontinued, Given four times per day starting on admission and continuing until resolution of mucositis AND ANC is greater than 500 /mm^3 for 2 days.. Mix 1 blue and 1 clear ampule together in a glass. Swish with half of the liquid for ONE full minute. Expectorate. Swish again with the other half for another full minute. Expectorate., Routine Given 01/04/2015 8:48 AM EST 30 mLs Given 01/03/2015 8:40 PM EST 30 mLs Given 01/03/2015 1:08 PM EST 30 mLs vancomycin 1 g in dextrose 5% 200 mL 1,000 mg (1 g), Intravenous, ONCE, 1 dose, On Cece 12/26/14 at 1100, Prior to Tunnelled line pull. Please infuse in tunnelled line prior to pulling. Maximum infusion rate is 1 gram/hour. If flushing of the face, neck, upper body, arms, and/or back occurs decrease infusion rate by 50% to reduce the severity of symptoms. This medication may have an associated drug lab level. Please see MAR for scheduled level., Routine, Indication for (Active or Suspected): Skin/Skin Structure / erythema noted at tunnelled line site Given 12/26/2014 11:19 AM EST 1,0 00 mg zolpidem (AMBIEN) tablet 5 mg 5 mg, Oral, ONCE, 1 dose, On Tue12/18/14 at 2130, Routine Given 12/18/2014 10:08 PM EST 5 mg documented in this encounter Active and Recently Administered Medications Times are shown in EST. Scheduled Medication Order 01/03/2015 01/04/2015 01/05/2015 acyclovir (ZOVIRAX) tablet 800 mg (CANCELED) 800 mg, Oral, 2 TIMES DAILY, First dose on Tue01/03/15 at 0915, Until Discontinued, Routine, Indication for (Active or Suspected): Prophylaxis 1131 (Given - Provider: Erika Swanson RN - Comment: correct dose arrived from pharmacy)2817 (Given - Provider: Yahaira Villagran RN - Comment: not available when due) 0847 (Given - Provider: Shanna Deleon RN) bacitracin ointment (CANCELED) Topical (Top), DAILY, First dose (after last modification) on Tue12/28/14 at 0900, Until Discontinued, Please clean left chest open areas with chlorohexadine wand. Apply bacitracin and cover with bandaid. Please remove dressings and leave [employer] for showers. Then re-dress with bacitracin and bandaid. Assess site for infection (erythema and drainage) and please inform providers. 0900 (Given - Provider: Erika Swanson RN) 1345 (Given - Provider: Shanna Deleon RN) 1014 (Given - Provider: Erika Swanson RN) cephalexin (KEFLEX) capsule 500 mg (CANCELED) 500 mg, Oral, 4 TIMES DAILY, First dose (after last reorder) on 12/23/14 at 0900, Until Discontinued, Using for prophylaxis due to intolerance to levofloxacin., Routine, Indication for (Active or Suspected): Prophylaxis / HSCT 09 (Given - Provider: Erika Swanson RN)1307 (Given - Provider: Erika Swanson RN)1657 (Given - Provider: Erika Swanson RN)2037 (Given - Provider: Yahaira Villagran RN) 0847 (Given - Provider: Shanna Deleon RN) enoxaparin (LOVENOX) injection 40 mg (CANCELED) 40 mg, Subcutaneous, DAILY, First dose on Tue12/17/14 at 2100, Until Discontinued, VOD prophylaxis in light of historic LFT elevation. Hold when platelets dip below 10K. Transfuse with 1 unit of platelets and give Lovenox after platelet infusion., Routine 09 (Given - Provider: Erika Swanson RN) 0848 (Given - Provider: Shanna Deleon, LINDA) escitalopram oxalate (LEXAPRO) tablet 10 mg (CANCELED) 10 mg, Oral, DAILY, First dose on Tue12/18/14 at 0900, Until Discontinued, Routine 09 (Given - Provider: Erika Swanson RN) 0848 (Given - Provider: Shanna Deleon, LINDA) 0906 (Given - Provider: Erika Swanson RN) esomeprazole (NexIUM) capsule 40 mg (CANCELED) 40 mg, Oral, DAILY, First dose on 12/17/14 at 2100, Until Discontinued, Give IV if unable to take by mouth. Pharmacy will send IV only upon request., Routine 901 (Given - Provider: Erika Swanson RN) 08 (Given - Provider: Shanna Deleon, RN) 09 (Given - Provider: Erika Swanson RN) filgrastim (NEUPOGEN) injection 480 mcg (CANCELED) 480 mcg, Subcutaneous, DAILY, First dose on 12/28/14 at 0900, Until Discontinued, 5 mcg/kg subcutaneously once daily beginning on day (+5) and until ANC greater than 1,500 mm^3 x 2 days or ANC greater than 5,000 mm^3 once post engraftment. Round dose based on actual weight: 1) For patient less than 60 kg give 300 mcg subcutaneously once daily. 2) For patient weight 60 - 99 kg give 480 mcg subcutaneously once daily. 3) For patient weight 100 - 130 kg give 600 mcg subcutaneously once daily. 4) For patient weight greater than 130 kg give 780 mcg subcutaneously once daily, Routine 09 (Given - Provider: Erika Swanson RN) 09 (Not Given - Provider: Shanna Deleon RN - Reason: Order parameters not met) fluconazole (DIFLUCAN) tablet 400 mg (CANCELED) 400 mg, Oral, DAILY, First dose on 12/23/14 at 0900, Until Discontinued, Begin on Day 0. May give IV if patient unable to take by mouth. Discontinue if other antifungal started., Routine, Indication for (Active or Suspected): Prophylaxis / Pre-Approved fro HSCT 901 (Given - Provider: Erika Swanson RN) 847 (Given - Provider: Shanna Deleon RN) hydrocortisone 1 % cream Topical (Top), 4 TIMES DAILY, First dose on Cece 01/02/15 at 1300, Until Discontinued 0800 (Given - Provider: Erika Swanson RN)1300 (Given - Provider: Erika Swanson RN)1657 (Given - Provider: Erika Swanson RN)2041 (Given - Provider: Yahaira Villagran RN) 0900 (Not Given - Provider: Shanna Deleon, RN - Reason: Patient/family refused)1345 (Given - Provider: Shanna Deleon RN)1700 (Not Given - Provider: Shanna Deleon RN - Reason: Patient/family refused)2100 (Not Given - Provider: Didi Nathan - Reason: Patient/family refused) 0900 (Given - Provider: Erika Swanson RN)1426 (Not Given - Provider: Erika Swanson RN - Reason: Patient/family refused) lactated ringers infusion (COMPLETED) 250 mL/hr, Intravenous, ONCE, 1 dose, On Tue01/03/15 at 0845, 1L of IVF 1650 (New Bag - Provider: Erika Swanson RN) loperamide (IMMODIUM) capsule 2 mg (COMPLETED) 2 mg, Oral, ONCE, 1 dose, On Tue01/03/15 at 0845, Do not exceed 16 mg/day., Routine 09 (Given - Provider: Erika Swanson RN) LORazepam (ATIVAN) tablet 0.5 mg (CANCELED) 0.5 mg, Oral, EVERY 6 HOURS, First dose on Tue12/17/14 at 1730, Until Discontinued, Routine 0452 (Given - Provider: Justine Elena RN)1130 (Given - Provider: Erika Swanson RN)1657 (Given - Provider: Erika Swanson RN)2306 (Given - Provider: Yahaira Villagran, LINDA) 0502 (Given - Provider: Yahaira Villagran RN)1130 (Not Given - Provider: Shanna Deleon RN - Reason: See comment - Comment: changing frequency, MD to change order)1437 (Given - Provider: Shanna Deleon RN)1730 (Not Given - Provider: Shanna Deleon RN - Reason: Patient/family refused)2121 (Given - Provider: Didi Nathan)2330 (Not Given - Provider: Victoria Mccracken RN - Reason: Contraindicated - Comment: to close to last dose) 0530 (Not Given - Provider: Victoria Mccracken RN - Reason: Patient/family refused - Comment: she wants to go back to [facility] home schedule and have her next dose between [id number])0921 (Given - Provider: Erika Swanson RN)1556 (Given - Provider: Erika Swanson RN) sodium chloride 0.9 % flush 5 mL (CANCELED) 5 mL, Intravenous, 2 TIMES DAILY, First dose on Tue12/17/14 at 2100, Until Discontinued, Routine 0904 (Given - Provider: Erika Swanson RN)210 (Given - Provider: Yahaira Villagran, LINDA) 0900 (Not Given - Provider: Shanna Deleon, RN - Reason: See comment - Comment: mediport flushed per policy)2115 (Given - Provider: Didi Nathan) 0900 (Not Given - Provider: Erika Swanson RN - Reason: See comment - Comment: flushed line at 0745) supersaturated calcium phosphate (CAPHOSOL) oral solution 30 mL (CANCELED) 30 mL, Oral, 4 TIMES DAILY, First dose on Tue12/17/14 at 2100, Until Discontinued, Given four times per day starting on admission and continuing until resolution of mucositis AND ANC is greater than 500 /mm^3 for 2 days.. Mix 1 blue and 1 clear ampule together in a glass. Swish with half of the liquid for ONE full minute. Expectorate. Swish again with the other half for another full minute. Expectorate., Routine 0904 (Given - Provider: Erika Swanson RN)1308 (Given - Provider: Erika Swanson, LINDA)1658 (Not Given - Provider: Erika Swanson RN - Reason: See comment - Comment: previous dose at bedside)2040 (Given - Provider: Yahaira Villagran, LINDA) 0848 (Given - Provider: Shanna Deleon, RN) PRN Medication Order 01/03/2015 01/04/2015 01/05/2015 diphenhydrAMINE/aluminum-mag nesium hydroxide/lidocaine (BMX) 1:1:1 Oral Suspension (CANCELED) 5 mL, Oral, EVERY 2 HOURS PRN, mucositis, Starting on Tue12/31/14 at 0845, Until 01/05/15 at 1824, Each 5mL contains equal parts of Maalox, Lidocaine, and Diphenhydramine 0451 (Given - Provider: Justine Elena RN) heparin, porcine 100 unit/mL flush 500 Units (CANCELED) 500 Units, Intravenous, ONCE PRN, Starting on Tue12/17/14 at 1614, Until 01/05/15 at 1824, Line Care, Refer to Intravenous (IV) Procedure: Accessing Implanted Vascular Access Devices (654) procedure and/or Intravenous (IV) Job Aid: Adult Flushing & Catheter Care (4085) job aid for additional information regarding guidelines and administration., Routine 1605 (Given - Provider: Erika Swanson RN) 1549 (Given - Provider: Erika Swanson RN) lidocaine (XYLOCAINE) 10 mg/mL (1 %) injection 3 mg (COMPLETED) 3 mg (0.3 mL), Subcutaneous, ONCE PRN, 1 dose, Starting on Tue12/17/14 at 1657, Until Tue01/03/15 at 1605, for discomfort with PIV insertion, Routine 1605 (Given - Provider: Erika Swanson RN) magnesium sulfate 2 g in sterile water 50 mL (CANCELED) 2 g, Intravenous, EVERY 2 HOURS PRN, Starting on Tue12/17/14 at 1614, Until Tue01/05/15 at 1824, Administer over 120 Minutes, HSCT Electrolyte Replacement, Please consider using oral supplementation whenever possible If serum magnesium is between 0.51 - 0.69 mMol/L, give a total of 4 grams of magnesium sulfate as follows: magnesium sulfate 2 grams IV infused over 2 hours for 2 doses. If serum magnesium is less than or equal to 0.5 mMol/L, notify house wrecker and give 5 grams of magnesium sulfate as follows: magnesium sulfate 2 grams IV infused over 2 hours for 2 doses followed by magnesium sulfate 1 gram IV infused over 1 hour once. Discontinue these orders and have house wrecker order electrolytes if serum creatinine is greater than or equal to 1.7 mg/dL or if patient is receiving parenteral nutrition. 1126 (Given - Provider: Erika Swanson RN)2032 (Given - Provider: Yahaira Villagran RN) 0743 (Given - Provider: Erika Swanson, RN)1015 (Given - Provider: Erika Swanson, RN) ondansetron (ZOFRAN) 8 mg in sodium chloride 0.9% 50 mL (CANCELED) 8 mg, Intravenous, EVERY 8 HOURS PRN, Starting on Tue12/24/14 at 0900, Until Tue01/05/15 at 1824, Administer over 15 Minutes, Nausea, Vomiting, Beginning on Day (+1). If multiple antiemetics are ordered, use in the following sequence: Ondansetron>Prochlorperazine or Promethazine>Lorazepam>Metoc lopramide Maximum dose 32 mg per day. 1730 (Given - Provider: Erika Swanson RN) potassium chloride 20 mEq in 100 mL (CANCELED) 20 mEq, Intravenous, EVERY 1 HOUR PRN, Starting on Tu12/17/14 at 1614, Until 01/05/15 at 1824, Administer over 60 Minutes, HSCT Electrolyte Replacement, If serum potassium is between 3.5 to 4 mMol/L give Potassium Chloride 20 mEq/100 mL IV over one hour for 2 doses if unable to take orally. If serum potassium is between 3 to 3.4 mMol/L give Potassium Chloride 20 mEq/100 mL IV over 1 hour for 4 doses if unable to take orally. If serum potassium is less than or equal to 2.9 mMol/L, notify house wrecker and give Potassium Chloride 20 mEq/100 mL IV over 1 hour for 5 doses. Discontinue these orders and have house wrecker order electrolytes if serum creatinine is greater than or equal to 1.7 mg/dL or if patient is receiving parenteral nutrition. 0640 (Given - Provider: Justine Elena RN)0741 (Given - Provider: Justine Elena RN) 0743 (Given - Provider: Erika Swanson RN)0902 (Given - Provider: Erika Swanson, LINDA) zolpidem (AMBIEN) tablet 5 mg 5 mg, Oral, NIGHTLY PRN, Starting on Tue01/03/15 at 0830, Until 01/05/15 at 1824, Sleep, Routine documented in this encounter Care Teams Research Nurse Relationship Specialty Start Date End Date Maine Dunn PA PCP - General 04/08/14 02/13/15 documented as of this encounter
--- OUTSIDE RECORDS SUMMARY | 2023-10-28 00:46 | XMS_ITS | Encounter Summary ---
Author Organization [facility] [place] [address] Care Team Providers Care Cable Splicing Technician Name Role Phone Maine Dunn Primary Care Provider [phone] Encounter Details Date Type Department Care Team (Late st Contact Info) Description 11/21/2014 Telephone Hematology Oncology at [address] [phone] Sarah Altamirano RN Social History Tobacco Use Types Packs/Day [...] encounter Miscellaneous Notes * Telephone Encounter - Sarah Altamirano RN - 11/21/2014 11:52 AM EDT LAB TRACKING [facility]AS DIAGNOSIS: DLBCL LABS ORDERED: Cbc/d, cmp/mon. and thurs. MEDICATIONS: Cycle # 1 - R-DHAP 10/09/14 with stem cell collection Cycle # 2 - R-DHAP 11/04/2014. Neulasta on 11/07 Assessment/Plan: Telephone call to Luis Fernando - continues to have bilateral upper extremities achiness. Took Tylenol only once with some effect. Going to [place] this weekend. Will have labs, PET and appt with Dr. Mondragon on Saturday 11/25. No further intervention needed. DATE WBC HGB/HCT PLTS ANC Others MEDS/PLAN LOCATION 11/21/14 15.81 8.8/26.2 103k 11.23 BUN/Creat 20/1.4 No transfusions necessary Labs, PET scan and appt with Giancarlo on 11/25. [facility] 11/18/14 15.20 8.5/25.0 84K 11.10 Bun/Creat 18/1.4 Labs on Tue/ as previously planned [facility] 11/14 3.24 8.8/25.7 24k 1.95 Bun/Creat 26/1.4 Transfuse 1 unit plt at [facility] 11/15 with post transfusion plt check 30 minutes following transfusion. [facility] 11/11 9 9.2/26.9 68 7.38 Bun/cr 35/1.5 [facility] 11/07 32.42 8.5/24.5 277 30.80 Bun/Creat - 30/1.3 Neulasta 6mg Hydration 11/07 & 11/08 [facility] documented in this encounter Plan of Treatment Upcoming Encounters Date Type Department Care Team (Late st Contact Info) Description 12/07/2023 12:00 PM EDT Office Visit Dermatology at [address] [address] Juan F Chappell MD [facility] [address] [place] [address] documented as of this encounter Visit Diagnoses Not on filedocumented in this encounter Care Teams Cable Splicing Technician Relationship Specialty Start Date End Date Maine Dunn PA PCP - General 04/08/14 02/13/15 documented as of this encounter
--- OUTSIDE RECORDS SUMMARY | 2023-10-28 00:46 | XMS_ITS | Encounter Summary ---
Author Organization [facility] Address [facility] [place] [address] Care Team Providers Care Moderate Needs Teacher Name Role Phone Maine Dunn Primary Care Provider [phone] Encounter Details Date Type Department Care Team (Late st Contact Info) Description 11/04/2014 7:00 AM EDT Hospital Encounter Hematology [place] [phone] Social History Tobacco Use Types Packs/Day Years [...] Sig Dispensed Refills Start Date End Date prednisoLONE acetate (PRED FORTE) 1 % Drops, SuspensionIndications:L ymphoma Place 2 drops into both eyes every 6 hours for 2 days. Continue until 5:00AM on 11/08. 11/06/2014 11/08/2014 magnesium oxide (MAG-OX) 400 mg Tablet Take 1 tablet by mouth daily. 60 tablet 12 11/06/2014 01/29/2015 melatonin 3 mg Tablet Take 2 tablets by mouth nightly. 11/06/2014 11/25/2014 dexamethasone (DECADRON) 4 mg Tablet Take 10 tablets by mouth once for 1 dose. Take on AM of 9/24. 10 tablet 0 11/07/2014 11/07/2014 prochlorperazine (COMPAZINE) 10 mg Tablet Take 1 [...] Take 1 tablet by mouth daily. 12/25/2015 [place]-3 Fatty Acids-Vitamin E (FISH OIL) 1,000 mg CapsuleIndications:Lymp fawn Take by mouth. 01/29/2015 Calcium 500 mg TabletIndications:Lymph vivien Take by mouth. 01/29/2015 Cholecalciferol, Vitamin D3, (VITAMIN D-3) 2,000 unit CapsuleIndications:Lymp fawn Take 1,000 Units by mouth. 01/29/2015 escitalopram (LEXAPRO) 10 mg tablet 03/08/2005 01/03/2015 documented as of this encounter Plan of Treatment Upcoming Encounters Date Type Department Care Team (Late st Contact Info) Description 12/07/2023 12:00 PM EDT Office Visit Dermatology at [facility] [address] [place] [address] Juan F Chappell MD [facility] DR [place] [address] documented as of this encounter Visit Diagnoses Not on filedocumented in this encounter Care Teams Moderate Needs Teacher Relationship Specialty Start Date End Date Maine Dunn PA PCP - General 04/08/14 02/13/15 documented as of this encounter
--- OUTSIDE RECORDS SUMMARY | 2023-10-28 00:46 | XMS_ITS | Encounter Summary ---
Author Organization [facility] [address] Care Team Providers Care Pipe Smoker Machine Operator Name Role Phone Maine Dunn Primary Care Provider [phone] Encounter Details Date Type Department Care Team (Late st Contact Info) Description 11/15/2014 Telephone Hematology/Oncology at [address] [phone] Faustina Soto RN Social History [...] Telephone Encounter - Faustina Soto RN - 11/15/2014 11:45 AM EDT Call placed to Myriam to see how her left leg pain was. Myriam states her pain is ok, its in my arms and legs, I have been moving more and that seems to help Patient is not taking ibuprofen at this time. She will call with any further questions or concerns. documented in this encounter Plan of Treatment Upcoming Encounters Date Type Department Care Team (Late st Contact Info) Description 12/07/2023 12:00 PM EDT Office Visit Dermatology at [facility] [address] [place] [address] Juan F Chappell MD [facility] DR R[place] [address] documented as of this encounter Visit Diagnoses Not on filedocumented in this encounter Care Teams Pipe Smoker Machine Operator Relationship Specialty Start Date End Date Maine Dunn PA PCP - General 04/08/14 02/13/15 documented as of this encounter
--- OUTSIDE RECORDS SUMMARY | 2023-10-28 00:46 | XMS_ITS | Encounter Summary ---
Author Organization [facility] Address [facility] [place] [address] Care Team Providers Care Singeing Torch Operator Name Role Phone Maine Dunn Primary Care Provider [phone] Reason for Visit * Reason Onset Date Comments Labs Only 11/14/2014 lab tracking Encounter Details Date Type Department Care Team (Late st Contact Info) Description 11/14/2014 Telephone Hematology/Oncology at [address] [phone] Ramila Hernández, RN Labs Only (lab tracking) Social History [...] Telephone Encounter - Ramila Hernández RN - 11/14/2014 1:39 PM EDT LAB TRACKING MYRIAM VIVAS DIAGNOSIS: DLBCL LABS ORDERED: Cbc/d, cmp/mon. and thurs. MEDICATIONS: Cycle # 1 - R-DHAP 10/09/14 with stem cell collection Cycle # 2 - R-DHAP 11/04/2014. Neulasta on 11/07 Assessment/Plan: Telephone call to Myriam. She reports that she has not been very good at remembering to take ibuprofen as instructed yesterday by Hawa Overton APRN but she has taken a couple doses of otc ibuprofen 400 mg and found this to be helpful for her LLE discomfort. Has also used warm pack which has also been helpful. She denies any signs of bleeding, bruising. Dr. Mondragon and Hawa Overton APRN advised of lab results and above telephone call to patient. advised plt transfusion tomorrow which patient prefers at [facility]. [facility] lab and second floor nursing infusion advised. Orders written by Dr. Sal Ward who was here today in clinic and faxedto both departments. Dr. Mondragon deferred discussion of LLE pain to Hawa Overton APRN who examined patient yesterday. Hawa Overton APRN advised patient to stop ibuprofen use and to continue to just use heat or cold for LLE discomfort, whichever feels better. Patient has been called with recommendation for plt transfusion tomorrow at [facility] and is agreeable to this. She will await hearing from [facility] time of appointment. I instructed her to stop ibuprofen useand the rationale for this. Advised per Hawa Overton that she can use heat or cold pack to LLE whichever gives most comfort to her. She states that heat works better. She is agreeable to stopping ibuprofen and using heat. I will have nursing call her tomorrow to assess comfort level but she will call if symptoms worsen or change in the meantime. DATE WBC HGB/HCT PLTS ANC Others MEDS/PLAN LOCATION 11/14 3.24 8.8/25.7 24k 1.95 Bun/Creat 26/1.4 Transfuse 1 unit plt at [facility] 11/15 with post transfusion plt check 30 minutes following transfusion. [facility] 11/11 9 9.2/26.9 68 7.38 Bun/cr 35/1.5 [facility] 11/07 32.42 8.5/24.5 277 30.80 Bun/Creat - 30/1.3 Neulasta 6mg Hydration 11/07 & 11/08 [facility] documented in this encounter Plan of Treatment Upcoming Encounters Date Type Department Care Team (Late st Contact Info) Description 12/07/2023 12:00 PM EDT Office Visit Dermatology at [facility] [address] [place] [address] Juan F Chappell MD [facility] [address] [place] [address] documented as of this encounter Visit Diagnoses Not on filedocumented in this encounter Care Teams Singeing Torch Operator Relationship Specialty Start Date End Date Maine Dunn PA PCP - General 04/08/14 02/13/15 documented as of this encounter
--- OUTSIDE RECORDS SUMMARY | 2023-10-28 00:46 | XMS_ITS | Encounter Summary ---
Author Organization [facility] Address [facility] [address] Care Team Providers Care Steam Hammer Operator Name Role Phone Maine Dunn Primary Care Provider [phone] Encounter Details Date Type Department Care Team (Late st Contact Info) Description 11/13/2014 Telephone Radiation Oncology at [address] [phone] Ramila Hernández RN Social History Tobacco Use Types Packs/Day [...] Telephone Encounter - Ramila Hernández RN - 11/13/2014 12:48 PM EDT Telephone call from Myriam reporting that she has developed in the last 3 days pain in her left upper leg. She says that her flexibility seems limited and she can not move it in certain positions suchas trying to cross her legs causes shooting pain. She says that if she is sitting comfortably it does not hurt. It has not stopped her from walking but she has been limping as trying to put full weight on it causes too much pain. She is unable to rate this pain using a scale. She denies any swelling or other changes in her LLE. She reports that her RLE is completely unaffected. She reports that she had been having similar muscle issues with her RUE but this is now about 75% improved. She says that she has been taking claritin daily as she was instructed by Dr. Mondragon. She tried putting someBen Kendall on her leg to see if that would help and she thought that it did perhaps a little bit. She wondered if there is anything else that she can be doing to help this. She denies any other new problems. I let her know that I would speak with a provider and call her back with any new recommendations. I spoke with Hawa Overton APRN and updated her regarding this phone call. She would like to examine Myriam and asked me to call her back to see if she could come in this afternoon to see her. 1:16 pm Telephone call to patient to advise that Hawa Overton APRN would like to see her this afternoon for examination. Myriam is agreeable to this and says she could come in around 2:15. I have asked to have this patient added to Hawa Overton's clinic schedule for this afternoon. documented in this encounter Plan of Treatment Upcoming Encounters Date Type Department Care Team (Late st Contact Info) Description 12/07/2023 12:00 PM EDT Office Visit Dermatology at [address] [address] Juan F Chappell MD [facility] DR RANDEE [place] [address] documented as of this encounter Visit Diagnoses Not on filedocumented in this encounter Care Teams Steam Hammer Operator Relationship Specialty Start Date End Date Maine Dunn PA PCP - General 04/08/14 02/13/15 documented as of this encounter
--- OUTSIDE RECORDS SUMMARY | 2023-10-28 00:46 | XMS_ITS | Encounter Summary ---
Author Organization [facility] Address [facility] [place] [address] Care Team Providers Care Reinsurance Clerk Name Role Phone Maine Dunn Primary Care Provider [phone] Reason for Visit * Reason Onset Date Comments Labs Only 11/11/2014 lab tracking Encounter Details Date Type Department Care Team (Late st Contact Info) Description 11/11/2014 Telephone Hematology/Oncology at [address] [phone] Ana Paula Benz RN Labs [...] Encounter - Ana Paula Benz RN - 11/11/2014 1:16 PM EDT LAB TRACKING DIAGNOSIS: DLBCL LABS ORDERED: Cbc/d, cmp/mon. and thurs. MEDICATIONS: Cycle # 1 - R-DHAP 10/09/14 with stem cell collection Cycle # 2 - R-DHAP 11/04/2014. Neulasta on 11/07 Assessment/Plan: Patient doing well no transfusion needed, encouraged to drink more fluids. Dr. Mondragon reviewed labs no changes. Pt to get labs again . DATE WBC HGB/HCT PLTS ANC Others MEDS/PLAN LOCATION 11/11 9 9.2/26.9 68 7.38 Bun/cr 35/1.5 [facility] 11/07 32.42 8.5/24.5 277 30.80 Bun/Creat - 30/1.3 Neulasta 6mg Hydration 11/07 & 11/08 [facility] documented in this encounter Plan of Treatment Upcoming Encounters Date Type Department Care Team (Late st Contact Info) Description 12/07/2023 12:00 PM EDT Office Visit Dermatology at [facility] [address] [place] [address] Juan F Chappell MD [facility] DR [address] [address] documented as of this encounter Visit Diagnoses Not on filedocumented in this encounter Care Teams Reinsurance Clerk Relationship Specialty Start Date End Date Maine Dunn PA PCP - General 04/08/14 02/13/15 documented as of this encounter
--- OUTSIDE RECORDS SUMMARY | 2023-10-28 00:46 | XMS_ITS | Encounter Summary ---
Author Organization [facility] Address [facility] [place] [address] Care Team Providers Care Business Intelligence Director Name Role Phone Maine Dunn Primary Care Provider [phone] Encounter Details Date Type Department Care Team (Late st Contact Info) Description 11/13/2014 2:30 PM EDT Follow-Up Hematology/Oncology at [address] [phone] Hawa Overton, [facility] [place] [address] Lymphoma Social History Tobacco Use Types Packs/Day [...] Reading Time Taken Comments Blood Pressure 104/52 11/13/2014 2:21 PM EDT Pulse 101 11/13/2014 2:21 PM EDT Temperature 36.6 ??C (97.9 ??F) 11/13/2014 2:21 PM ED T Respiratory Rate 16 11/13/2014 2:21 PM EDT Oxygen Saturation 98% 11/13/2014 2:21 PM EDT Inhaled Oxygen Concentration - - Weight 64.9 kg (143 lb) 11/13/2014 2:21 PM EDT Height 159 cm (5' 2.6) 11/13/2014 2:21 PM EDT Body Mass Index 25.66 11/13/2014 2:21 PM EDT documented in this encounter Patient Instructions * Patient Instructions* Hawa Overton APRN - 11/13/2014 4:24 PM EDT She will return as scheduled for her next treatment. 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 Lymphoma TB discussion 10/01/14 Recommendations for salvage chemotherapy and autologous stem cell transplant. C#1 RDHAP 10/09/14 With stem cell collection C#2 RDHAP 11/04/14 PET scan pending INTERIM HISTORY OF PRESENT ILLNESS: It was my pleasure to see Myriam Vivas back in clinic today. Myriam Vivas is a 64 y.o. 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 She had a successful stemcell collection off C#1 R-DHAP and returns for an unscheduled followup visit one week after treatment with C#2 .Tolerated relatively well. She is here today because of pain in her upper left leg thatis making it hard for her to walk. She states that it is a sharp shooting pain down the outer aspect of her upper thigh. When she walks she limps due to the pain. She has not tried anything for it. She does see a chiropractor on a regular basis but has not been there lately. It is causing her a lotof discomfort. She got one unit of plt in her chente. No PRBC needed. This was with cycle #1. ROS Energy level: low Pain: yes see above. Appetite:good Fevers/chills/sweats:No Bruising/bleeding/melena:No Recent infections:No HEENT: negative Nausea/vomiting/diarrhea/constipation:No SOB/HAUSER/chest pain:No Change in adenopathy or other masses:No Unexpected weight loss or gain:No Skin rashes or petechiae:No Musculoskeletal complaints:aches in arms X 2 days Extremities: Negative upper and lower bilaterally Neurologic symptoms:No Mood: Normal Sleep: Difficulty sleeping MEDS: Outpatient Prescriptions Marked as Taking for the 11/13/14 encounter (Follow-Up) with Hawa Overton APRN Medication Sig Dispense Refill ??? magnesium oxide (MAG-OX) 400 mg Tablet Take 1 tablet by mouth daily. 60 tablet 12 ??? melatonin 3 mg Tablet Take 2 tablets by mouth nightly. ??? LORazepam (ATIVAN) 0.5 mg Tablet Take 1 tablet by mouth every 6 hours as needed for Anxiety. 30tablet 2 ??? levofloxacin (LEVAQUIN) 750 mg Tablet Take 1 tablet by mouth daily for 30 days. 30 tablet 4 ??? fluconazole (DIFLUCAN) 200 mg Tablet Take 1 tablet by mouth daily for 30 days. 30 tablet 3 ??? prochlorperazine (COMPAZINE) 10 mg [...] Take 1 tablet by mouth daily. ??? Lorraine-3 Fatty Acids-Vitamin E (FISH OIL) 1,000 mg Capsule Take by mouth. ??? Calcium 500 mg Tablet Take by mouth. ??? Cholecalciferol, Vitamin D3, (VITAMIN D-3) 2,000 unit Capsule Take 1,000 Units by mouth. ??? escitalopram (LEXAPRO) 10 mg tablet Allergies: Allergies Allergen Reactions ??? Tegaderm [Transparent Dressings] Other (See Comments) Unsure if actual allergy, please try [id number] Skin tears/rawness INTERIM SOCIAL HISTORY Changes in job, home situation, tobacco or alcohol use: see HPI PHYSICAL EXAM BP 104/52 mmHg Pulse 101 Temp(Src) 36.6 ??C (97.9 ??F) (Oral) Resp 16 Ht 159 cm (5' 2.6) Wt 64.864 kg (143 lb) BMI 25.66 kg/m2 SpO2 98% Body surface area is 1.69 meters squared. GENERAL: Myriam Vivas appears well [...] and oriented to person, place and time. No nystagmus. Finger to nose intact. MUSCULOSKELETAL: No spinal or chest wall tenderness. She is not able to bend over to tie her shoe now due to the pain. LINE: nontender, no erythema LABORATORY STUDIES DATE WBC HGB/HCT PLTS ANC Others MEDS/PLAN LOCATION 11/11 9 9.2/26.9 68 7.38 Bun/cr 35/1.5 [facility] 11/07 32.42 8.5/24.5 277 30.80 Bun/Creat - 30/1.3 Neulasta 6mg Hydration 11/07 & 11/08 [facility] RADIOLOGY STUDIES REVIEWED: none ASSESSMENT/PLAN: We will proceed with cycle #2 of R-DHAP today. She will need Neulasta at [facility] on of this week. She will need lab draws on Mondays and at [facility] with transfusions for platelets less than 20,000 and hemoglobin less than 8. His lab draws will be done during the weeks of 11/11 and 11/18. Sarah Altamirano at [facility] will coordinate these. Home on acyclovir 400 mg by mouth twice a day, Levaquin 750 mg by mouth daily, and fluconazole 200 mg by mouth daily. Levaquin and fluconazole can be discontinued after her chente. Acyclovir should beongoing. She will return to clinic in 3 weeks with labs, PET scan, and appointment with [facility]. Addendum: Interval insufficiency noted after last treatment of R-DHAP . Creatinine clearance today is 54 (calculated). We'll dose cisplatin at 50% and cytarabine at 1000 mg/m?? per dose. I have reduced the cisplatin more than pharmacy recommendations given that the last dose did cause renal insufficiency. The refore I want to dose reduce even more than that which is recommended for the renal insufficiency seen today. This to avoid further renal insufficiency. TODAY; She likely has impingement on a nerve in her L spine. She has had chronic issues with her back thatshe sees a chiropractor for. She can try heat or cold to the area to see if this will relieve the pain. She can also try ibuprofen once to see if gives any relief. Her platelets are low so we need tocontinue to monitor her counts. She will have her counts repeated tomorrow. She will call if this do es not get better. She will follow up as scheduled with Dr Mondragon. Copy SOPHY FUNES (General) documented in this encounter Plan of Treatment Upcoming Encounters Date Type Department Care Team (Late st Contact Info) Description 12/07/2023 12:00 PM EDT Office Visit Dermatology at [facility] [address] [place] [address] Juan F Chappell MD [facility] DR R[place] [address] documented as of this encounter Procedures Procedure Name Priority Date/Time Associated Diagnosis Comments LAB SCAN 11/21/2014 12:00 AM EDT CHEMOTHERAPY SCAN 11/15/2014 12:00 AM EDT documented in this encounter Results * SCAN DOC: LAB (11/21/2014 12:00 AM EDT) Scanning Provider MEDIA MGR SCAN EXT O RDR/RSLT * SCAN DOC: CHEMOTHERAPY (11/15/2014 12:00 AM EDT) Scanning Provider MEDIA MGR SCAN EXT O RDR/RSLT documented in this encounter Visit Diagnoses Diagnosis Lymphoma Other malignant lymphomas, unspecified site, extranodal and solid organ sites documented in this encounter Care Teams Business Intelligence Director Relationship Specialty Start Date End Date Maine Dunn PA PCP - General 04/08/14 02/13/15 documented as of this encounter
--- OUTSIDE RECORDS SUMMARY | 2023-10-28 00:46 | XMS_ITS | Encounter Summary ---
Author Organization [facility] [place] [address] Care Team Providers Care Tests Superintendent Name Role Phone Maine Dunn Primary Care Provider [phone] Encounter Details Date Type Department Care Team (Late st Contact Info) Description 11/25/2014 11:33 AM EDT - 11/25/2014 11:52 AM EDT Hospital Encounter Hematology [place] [phone] Lymphoma Social History Tobacco Use Types Packs/Day [...] mouth daily. 60 tablet 12 11/06/2014 01/29/2015 fluconazole (DIFLUCAN) 200 mg TabletIndications:Lympho simón,DLBCL (diffuse large B cell lymphoma),Stem cell donor,Examination of participant in clinical trial Take 1 tablet by mouth daily for 30 days. 30 tablet 3 11/04/2014 12/04/2014 ondansetron (ZOFRAN) 8 mg TabletIndications:Lympho ma,DLBCL (diffuse [...] Take 1 tablet by mouth daily. 12/25/2015 Lakes[place]-3 Fatty Acids-Vitamin E (FISH OIL) 1,000 mg [...] at [facility] [address] [place] [address] Juan F Chappell MD [facility] DR RANDEE [place] [address] documented as of this encounter Procedures Procedure Name Priority Date/Time Associated Diagnosis Comments HEMOGRAM STAT 11/25/2014 11:47 AM EDT Lymphoma DIFFERENTIAL, AUTOMATED STAT 11/25/2014 11:47 AM EDT Lymphoma ABO/RH TYPING STAT 11/25/2014 11:47 AM EDT Lymphoma CBC (WITH DIFF) STAT 11/25/2014 11:47 AM EDT Lymphoma ANTIBODY SCREEN STAT 11/25/2014 11:47 AM EDT Lymphoma TYPE AND SCREEN ([facility]/MARTHA) STAT 11/25/2014 11:47 AM EDT Lymphoma LACTATE DEHYDROGENASE STAT 11/25/2014 11:47 AM EDT Lymphoma COMPREHENSIVE METABOLIC PANEL STAT 11/25/2014 11:47 AM EDT Lymphoma documented in this encounter Results * Antibody screen (11/25/2014 11:47 AM EDT) Pathologist [facility] Ab Screen Interp Negative [facility] Expires at [id number] on: 11/28/2014 [facility] Blood specimen (specimen) 11/25/2014 11:47 AM EDT 11/25/2014 12:06 PM EDT Narrative Resulting Agency Comment Spec In Lab Kimberly Mondragon MD BLOOD BANK LAB O RDERABLES Performing Organization Address [facility] Co de Phone Number [facility] * ABO/Rh Typing (11/25/2014 11:47 AM EDT) Pathologist [facility] ABORH Type B Pos [facility] Blood specimen (specimen) 11/25/2014 11:47 AM EDT 11/25/2014 12:06 PM EDT Narrative Resulting Agency Comment Spec In Lab Kimberly Mondragon MD BLOOD BANK LAB O RDERABLES Performing Organization Address City/[facility] Co de Phone Number [facility] * (ABNORMAL) Differential, Automated (11/25/2014 11:47 AM EDT) Pathologist [facility] Department Neutrophil % 71.4 % [facility] Neutrophil Absolute 5.36 1.50 - 6.30 x10(3)/mc L CERNER MILLENNIUM Lymph % 9.6 % CERNER MILLENNIUM Lymphocytes Abs 0.7(L) 1.0 - 3.6 x10(3)/mc L CERNER MILLENNIUM Monocyte % 15.6 % CERNER MILLENNIUM Monocyte Abs 1.2(H) 0.2 - 1.0 x10(3)/mc L CERNER MILLENNIUM Eos % 1.9 % CERNER MILLENNIUM Eosinophils Abs 0.1 0.0 - 0.5 x10(3)/mc L CERNER MILLENNIUM Basophil % 0.4 % CERNER MILLENNIUM Baso Absolute 0.0 0.0 - 0.2 x10(3)/mc L CERNER MILLENNIUM Immature Gran % 1.10 % CERN ER MILLENNIUM Comment: Immature granulocytes(IG's)percentage and absolute count will include metamyelocytes, myelocytes, and promyelocytes. Blood smears from CBCs yielding IG's will be scanned manually for concordance. If this scan disagrees with the automated IG or if promyelocytes are noted, a manual differential will be performed. Immature Gran Absolute 0.08(H) 0.00 - 0.05 x10(3)/mc L CERNER MILLENNIUM Blood specimen (specimen) 11/25/2014 11:47 AM EDT 11/25/2014 12:02 PM EDT Narrative Resulting Agency Comment Spec In Lab Kimberly Mondragon MD HEMATOLOGY ORDER AYO CERDANIA BUCHANANENNIUM * (ABNORMAL) Hemogram (11/25/2014 11:47 AM EDT) White Blood Cell 7.5 4.0 - 10.0 x10(3)/mc L CERNER MILLENNIUM Red Blood Cell 2.82(L) 3.93 - 5.22 x10(6)/mc L CERNER MILLENNIUM Hemoglobin 8.9(L) 11.2 - 15.7 gm/dL CERNER MILLENNIUM Hematocrit 25.8(L) 34.0 - 45.0 % CERNER MILLENNIUM Mean Cell Volume 91.5 79.0 - 94.0 fL CERNER MILLENNIUM Mean Cell Hemoglobin 31.6 26.6 - 32.2 pg CERNER MILLENNIUM Mean Cell Hemoglobin Concentration 34.5 32.0 - 36.5 gm/dL CERNER MILLENNIUM Platelet 175 145 - 370 x10(3)/mc L CERNER MILLENNIUM RDW Standard Deviation 44.7 35.0 - 46.0 fL CERNER MILLENNIUM RDW coefficient of variation 14.2 10.9 - 14.4 % CERNER MILLENNIUM Mean Platelet Volume 9.0 9.0 - 12.0 fL CERNER MILLENNIUM Blood specimen (specimen) 11/25/2014 11:47 AM EDT 11/25/2014 12:02 PM EDT Narrative Resulting Agency Comment Spec In Lab Kimberly Mondragon MD HEMATOLOGY ORDER AYO Performing Organization Address City/[facility]/ZIP Co de Phone Number CERNER MILLENNIUM * (ABNORMAL) Lactate Dehydrogenase (11/25/2014 11:47 AM EDT) Lactate Dehydrogenase 257(H) 110 - 220 unit/L CERNER MILLENNIUM Blood specimen (specimen) 11/25/2014 11:47 AM EDT 11/25/2014 12:02 PM EDT Narrative Resulting Agency Comment Spec In Lab Kimberly Mondragon MD CHEMISTRY ORDERA BLES Performing Organization Address City/[facility]/ZIP Co de Phone Number [facility] MILLENNIUM * (ABNORMAL) Comprehensive metabolic panel (non-fasting) (11/25/2014 11:47 AM EDT) Glucose 100 65 - 199 mg/dL [facility] MILLENNIUM Comment:Diabetes: >=200 mg/d L plus symptoms Blood Urea Nitrogen 26(H) 8 - 18 mg/dL CERNER MILLENNIUM Creatinine 1.08 0.70 - 1.20 mg/dL CERNER MILLENNIUM Comment: Please note that the pediatric reference intervals supplied above were not validated at [facility]. Results from pediatric patients should be interpreted in conjunction to the patient's age, height and muscle mass. Sodium 141 135 - 145 mmol/L [facility] MILLENNIUM Potassium 4.9 3.5 - 5.0 mmol/L CERNER MILLENNIUM Comment: Please note: ??Patients with WBC >100,000 may have falsely elevated Potassium levels. ??For accurate Potassium quantification in these patients send serum separator tube (gold top) for subsequent determinations. ??Contact the Clinical Chemistry Laboratory if there are any questions. Chloride 101 98 - 107 mmol/L CERNER MILLENNIUM Carbon Dioxide 28 22 - 31 mmol/L CERNER MILLENNIUM Anion Gap 12 5 - 15 mmol/L CERNER MILLENNIUM Calcium 9.9 8.5 - 10.5 mg/dL CERNER MILLENNIUM Protein, Total 6.7 6.1 - 8.0 gm/dL CERNER MILLENNIUM Albumin 4.4 3.2 - 5.2 gm/dL CERNER MILLENNIUM Aspartate Aminotransferase 20 0 - 30 unit/L CERNER MILLENNIUM Alanine Aminotransferase 16 0 - 30 unit/L CERNER MILLENNIUM Alkaline Phosphatase 92 40 - 104 unit/L CERNER MILLENNIUM Bilirubin, Total 0.2 0.2 - 1.3 mg/dL CERNER MILLENNIUM Bilirubin, Direct 0.1 0.0 - 0.3 mg/dL CERNER MILLENNIUM Est Glomerular Filtration Rate 51(L) >=60 CERNER MILLENNIUM Comment: This estimated GFR [...] following links into your internet browser. [email or web address] Blood specimen (specimen) 11/25/2014 11:47 AM EDT 11/25/2014 12:02 PM EDT Narrative Resulting Agency Comment Spec In Lab Kimberly Mondragon MD CHEMISTRY ORDERA [facility] Organization Address City/State/ZIP Co de Phone Number CERNER MILLVivoxidIUM documented in this encounter Visit Diagnoses Diagnosis Lymphoma Other malignant lymphomas, unspecified site, extranodal and solid organ sites documented in this encounter Care Teams Tests Superintendent Relationship Specialty Start Date End Date Maine Dunn PA PCP - General 04/08/14 02/13/15 documented as of this encounter
--- OUTSIDE RECORDS SUMMARY | 2023-10-28 00:46 | XMS_ITS | Encounter Summary ---
Author Organization [facility] Address [facility] [place] [address] Care Team Providers Care Recycling Assistant Name Role Phone Maine Dunn Primary Care Provider [phone] Reason for Visit * Reason Comments Chemotherapy Encounter Details Date Type Department Care Team (Latest Contact Info) Description 11/04/2014 3:17 PM EDT - 11/06/2014 2:16 PM EDT Hospital Encounter 1 [place] [id number] INFUSION THERAPY, MEDS None Nichelle Selby MD [facility] [address] [place] [address] Lymphoma Discharge Disposition: Home Social History Tobacco [...] Sign Reading Time Taken Comments Blood Pressure 122/70 11/06/2014 10:59 AM EDT Pulse 56 11/06/2014 10:59 AM EDT Temperature 36.7 ??C (98.1 ??F) 11/06/2014 10:59 AM E DT Respiratory Rate 16 11/06/2014 10:59 AM EDT Oxygen Saturation 97% 11/06/2014 10:59 AM EDT Inhaled Oxygen Concentration - - Weight 70.1 kg (154 lb 9.6 oz) 11/06/2014 6:55 A M EDT Height 159 cm (5' 2.6) 11/04/2014 6:16 PM EDT Body Mass Index 27.74 11/04/2014 6:16 PM EDT documented in this encounter Discharge Summaries * Zayra Leach, POLICE SERVICE TECHNICIAN - 11/06/2014 8:59 AM EDT Discharge Summary Patient Name: Myriam De Souza Patient Age: 64 y.o. Language: Nepali Race: White Ethnicity: Not nor Admit date: 11/04/2014 Discharge date and time: 11/06/14 at 1200 Attending Physician: Nichelle Spencer MD Discharge Physician: Dr. Nichelle Spencer Follow-up Recommendations for Providers: -Right upper shoulder decreased ROM. Improving symptoms. May be attributed to impingement. Consulted PT for stretching exercises. -Started on Melatonin 6mg by mouth for insomnia. -Renal insufficiency is improved. Creatinine on day of admission was 1.07 improved the next day to 0.92. -Received 1 unit of PRBC due to Hgb of 6.6 while hospitalized. Received last day of admission 11/06. Discharge Diagnoses (Hospital Problems) and Secondary Diagnoses (Chronic Problems): There are no hospital problems to display for this patient. Active Non-Hospital Problems Diagnosis ??? Lymphoma History of Presentation: In March 2014, found to have DLBCL [...] to 50% and cytarabine to 1000mg/m2. Hospital Course: #Refractory DLBCL Day 1 (11/04): Rituximab (600mg), Cisplatin (85mg) (administer over 24 hrs), Dexamethasone 40mg Day 2 (11/05): Cytarabine (1,700mg) q12hrs x2 doses, Dexamethasone 40mg Day 3 (11/06-11/07) & Day 4: Dexamethasone 40mg Patient and declined education about chemotherapy and side effects. States she understands current treatment plan. All question were answered and she is ready for chemotherapy treatment. -Watch for neurotoxicity. Neuros WNL from baseline today. -Monitor for tumor lysis. IVF NS at 125 ml/hr and BID tumor lysis labs. -Discharge home on Dexamethasone 40mg by mouth for 11/07. #Acute Anemia related to Chemotherapy Treatment -Daily CBC w/ diff -Will transfuse if Hgb is at or below 7 or if patient is symptomatic. -Transfuse 1 unit of PRBC prior to discharge today due to low Hgb. -Patient consented and understands benefits of RBC prior to discharge. #Renal Insufficiency -Creatinine clearance is calculated at [address] day of [address] Mondragon dose reduced cisplatin to 50% and cytarabine to 1000mg/m2. -Creatinine improved to 0.92 today from 1.08. -Lasix 20mg IV today for fluid retention. #Hypomagnesmia -Replete with Mag Ox 400mg by mouth two doses prior to discharge. -Discharge home on Magnesium Oxide 400mg by mouth daily due to persistent hypomagnesemia. #Transaminitis -Noted elevation of AST 36 from 24 and ALT 35 from 25. Most likely due to hepatic clearance of chemotherapy. -Will receive labwork on 11/07 at [facility] tomorrow. #Depression with Anxiety -Continue Lexapro 10mg by mouth daily. -Continue ativan 0.5mg every 6 hours for anxiety prevention. #Insomnia -Continue 6mg of Melatonin overnight. #Nausea -Patient takes ativan 0.5mg every 8 hours and zofran 8mg every 8 hours for nausea prevention. -Continue ativan 0.5mg scheduled every 8 hours and zofran 16mg every 12 hours scheduled. #Follow-up: -Neulasta 6mg at [facility] on 11/07 -Biweekly labs on Tuesday and (CBC with Diff and CMP) the weeks of 11/11 and 11/18. -IVF at [facility] on (11/07) and Tuesday (11/08) this week. -Acyclovir 400mg BID--ongoing, Levaquin 750mg day 5 x 14 days until ANC>500, Fluconazole 200mg day 5 x 14 days until ANC >500. -Follow up in 3 weeks for PET scan, labwork and appointment with Dr. Mondragon. Vital Signs at Discharge: BP: 122/70 mmHg, Heart Rate: 56, Temp: 36.7 ??C (98.1 ??F), Resp: 16, BMI (Calculated): 26.2 Height: 159 cm (5' 2.6) (11/04/14 1816) Weight - Scale: 70.126 kg (154 lb 9.6 oz) (11/06/14 0655) Functional and Cognitive Status: Baseline Important Studies and Lab Data: Labs: Last 3 wbc, hgb, hct plt Recent Labs 11/06/14 04311/05/14 0430 11/04/14 2115 WBC 4.6 5.1 3.7* HGB 6.6* 7.2* 7.9* HCT 19.8* 21.2* 22.9* PLATELET 268 326 336 Last 3 Lytes Recent Labs 11/06/14 0430 11/05/14 1550 11/05/14 0430 NA 144 142 140 K 4.1 4.2 4.4 CL 110* 106 104 CO2 24 23 25 BUN 25* 22* 22* CREATININE 0.92 1.08 0.92 Last 3 LFTs Recent Labs 11/06/14 04311/05/14 1550 11/05/14 0430 AST 36* 24 24 ALT 35* 25 26 ALKPHOS 65 78 78 BILITOT <0.2* 0.2 0.2 BILIDIR 0.1 <0.1 <0.1 Last Ca, Mg, Phos Recent Labs 11/06/14 0430 CALCIUM 8.3* PHOS 3.6 Discharge Conditions/Prognosis: Myriam De Souza is being discharged home today without services. She is doing well. Denies SOB, Nausea/Vomiting/Diarrhea/Constipation. VSS-afebrile. Labs stable. More than 30 minutes was spent with patient and family regarding chente management planning, discharge medication review/discussion, anticipated chemotherapy side effects of treatment and methods to manage symptoms. Patient and family states all questions were answered. Discharge to: Home Updated Allergies/ADRs: Allergies Allergen Reactions ??? Tegaderm [Transparent Dressings] Other (See Comments) Unsure if actual allergy, please try [id number] Skin tears/rawness Immunizations Given this Hospitalization: Immunization History Administered Date(s) Administered ??? Influenza PF, Split 11/06/2014 ??? Influenza Vaccine, Whole 12/22/2004, 01/03/2006 Discharge Medications: Your Medications Notice Some of the medications listed here do not show instructions, such as how often to take the medication. Ask your doctor or nurse how to use these medications. Specifically ask about this and similar medications: escitalopram (LEXAPRO) 10 mg tablet New Medications Dose Details dexamethasone 4 mg Tab Commonly known as: DECADRON Take 10 tablets by mouth once for 1 dose. Take on AM of 11/07. Start taking on: 11/07/2014 40 mg Quantity: 10 tablet Refills: 0 magnesium oxide 400 mg Tab Commonly known as: MAG-OX Take 1 tablet by mouth daily. 400 mg Quantity: 60 tablet Refills: 12 melatonin 3 mg Tab Take 2 tablets by mouth nightly. 6 mg Refills: 0 prednisoLONE acetate 1 % Drps Commonly known as: PRED FORTE Place 2 drops into both eyes every 6 hours for 2 days. Continue until 5:00AM on 11/08. 2 drop Refills: 0 Continued medications with new dosing Dose Details LORazepam 0.5 mg Tab Commonly known as: ATIVAN Take 1 tablet by mouth every 6 hours as needed for Anxiety. What changed: Another medication with the same name was removed. Continue taking this medication, and follow the directions you see here. 0.5 mg Quantity: 30 tablet Refills: 2 Continued medications, unchanged Dose Details acyclovir 400 mg Tab Commonly known as: ZOVIRAX Take 1 tablet by mouth 2 times daily. 400 mg Quantity: 60 tablet Refills: 3 Calcium 500 mg Tab Take by mouth. [...] fatty acids with vitamin E Refills: 0 fluconazole 200 mg Tab Commonly known as: DIFLUCAN Take 1 tablet by mouth daily for 30 days. 200 mg Quantity: 30 tablet Refills: 3 levofloxacin 750 mg Tab Commonly known as: LEVAQUIN Take 1 tablet by mouth daily for 30 days. 750 mg Quantity: 30 tablet Refills: 4 LEXAPRO 10 mg Tab Generic drug: escitalopram oxalate Refills: 0 ondansetron 8 mg Tab Commonly known as: [...] Temperature Temp: 36.7 ??C (98.1 ??F) Temp: [36.6 ??C (97.9 ??F)-37 ??C (98.6 ??F)] Heart Rate Heart Rate: 56 Heart Rate: [56-85] Blood Pressure BP: 122/70 mmHg BP: (105-122)/(60-72) Respiratory Rate Resp: 16 Resp: [16-20] SpO2 SpO2: 97 % SpO2: [94 %-99 %] Code Status at Discharge: Full Code Instructions Given to Patient at Discharge: Patient Instructions 1. You were admitted to the hospital for chemotherapy. You received Cycle #2 (with R-DHAP chemotherapy). 2. Your blood counts are made up of white blood cells, which fight infection, red blood cells that carry oxygen, and platelets, which stop bleeding. Generally, blood counts fall between 7-14 days after chemotherapy. During the time your blood counts are at their lowest point (chente), you are at risk for infection and bleeding. Use good hand washing and avoid crowds [...] for >48 hours Vomiting for >24 hours Side Effects of your Chemotherapy: Rituximab: Hypersensitivity/Allergic reaction with first dose of chemo, fever night after infusion,shortness of breath, chest pain, chills, bone pain. Cisplatin: Kidney damage, significant acute and delayed nausea and vomiting, electrolyte imbalance of potassium and magnesium, hearing changes, neuropathy Cytarabine: Nausea, vomting, drug rash, drug fever, conjunctivitis, balance changes and neurological toxicities. 3. For the 48 hours after Receiving Chemotherapy: You will be releasing chemotherapy in your blood, tears, vomit, sweat, vaginal/semen secretions, saliva, urine and feces for 48 hours after your chemotherapy. You should take extra precautions to protect your loved ones during this time. To Do: 1. Gloves: Have your caregiver wear gloves when coming into contact with your secretions. 2. Laundry: You or your caregiver should wear disposable gloves when doing soiled laundry. The laundry should be double washed separately from other household laundry. 3. Sex: Abstain or use condoms for 48 hours after chemotherapy treatment. 4. At home you will take 3 medications to prevent infection: Acyclovir (prevents viral infections, especially herpes zoster/shingles). Take 400mg twice daily, ongoing. Levofloxacin (prevents bacterial infections). Take 750mg once daily for 14 days (stop when ANC >500). Fluconazole (prevent fungal infections): Take 200mg once daily for 14 days (stop when ANC >500). Changes in Your Medications: New Medications: -Dexamethasone 40mg by mouth on 11/07 AM. -Prednisiolone eye drops 2 drops every 6 hours both eyes until 5:00 AM on 11/07. -Magnesium oxide 400mg by mouth daily due to low levels of magnesium. -Melatonin 6mg every night for sleep. Please use instead of Benadryl or Ativan. 5. For nausea and vomiting, take anti-emetic medications (ondansetron) at the first sign of nausea/vomiting. Continue [...] hours. - You are dizzy or lightheaded. 6. When you go home, you may experience increasing fatigue. This can be the result of [...] hands frequently and stay away from sick individuals.Pace yourself and rest when you are fatigued. Driving: Do not drive if you are feeling fatigued. Diet: Regular, healthy diet Follow-Up Appointments at [facility]: 1. On November 07: Labwork at 12:00PM at [facility] prior to going to [facility] for Neulasta and hydration. Neulasta injection at 1:00 PM (this injection may cause bone pain). This medication is to prevent infection. IV hydration will also be completed at [facility] 2. On November 08: IV hydration at 11:00AM -- Plan for appointments on the following days: - Tuesday, 11/11: labs and transfusions (if needed) - 11/14: labs and transfusions (if needed) - Tuesday, 11/18: labs and transfusions (if needed) - , 11/21: labs and transfusions (if needed) Follow-Up Appointments [place] [facility]: 1. Next appointment will be in 3 weeks, we will contact you with your future appointment dates at [facility]. If you have any questions or concerns, call Dr. Mondragon's office. During non- business hours, call [phone] and ask to speak to the Hematology Fellow On-Call. General Instructions None Future Appointments Provider Department Dept Phone 11/07/2014 1:00 PM [facility], ROOM Hematology/Oncology [phone] 11/08/2014 11:00 AM [facility], ROOM Hematology/Oncology [phone] Provider Contact Information: SOPHY FUNES (General) [address] / [facility] [address] Discharge References/Attachments None Zayra VENTURA, POLICE SERVICE TECHNICIAN [facility] Hematology/Oncology-[address] [place] [address] Pager: [phone] documented in this encounter Discharge Instructions * Patient Instructions* Zayra Leach APRN - 11/04/2014 3:53 PM EDT 1. You were admitted to the hospital for chemotherapy. You received Cycle #2 (with R-DHAP chemotherapy). 2. Your blood counts are made up of white blood cells, which fight infection, red blood cells that carry oxygen, and platelets, which stop bleeding. Generally, blood counts fall between 7-14 days after chemotherapy. During the time your blood counts are at their lowest point (chente), you are at risk for infection and bleeding. Use good hand washing and avoid crowds [...] of your central venous access device (Mediport, [place]adn) or mouth sores. Any unusual bleeding or bruising, or red spots on your skin (petechiae) Black tarry stools or red or dark brown urine Bloody or coffee ground colored emesis (vomit) Prolonged bleeding from cuts Unusual or new back or stomach pain Diarrhea for >24 hours Constipation for >48 hours Vomiting for >24 hours Side Effects of your Chemotherapy: Rituximab: Hypersensitivity/Allergic reaction with first dose of chemo, fever night after infusion,shortness of breath, chest pain, chills, bone pain. Cisplatin: Kidney damage, significant acute and delayed nausea and vomiting, electrolyte imbalance of potassium and magnesium, hearing changes, neuropathy Cytarabine: Nausea, vomting, drug rash, drug fever, conjunctivitis, balance changes and neurological toxicities. 3. For the 48 hours after Receiving Chemotherapy: You will be releasing chemotherapy in your blood, tears, vomit, sweat, vaginal/semen secretions, saliva, urine and feces for 48 hours after your chemotherapy. You should take extra precautions to protect your loved ones during this time. To Do: 1. Gloves: Have your caregiver wear gloves when coming into contact with your secretions. 2. Laundry: You or your caregiver should wear disposable gloves when doing soiled laundry. The laundry should be double washed separately from other household laundry. 3. Sex: Abstain or use condoms for 48 hours after chemotherapy treatment. 4. At home you will take 3 medications to prevent infection: Acyclovir (prevents viral infections, especially herpes zoster/shingles). Take 400mg twice daily, ongoing. Levofloxacin (prevents bacterial infections). Take 750mg once daily for 14 days (stop when ANC >500). Fluconazole (prevent fungal infections): Take 200mg once daily for 14 days (stop when ANC >500). Changes in Your Medications: New Medications: -Dexamethasone 40mg by mouth on 11/07 AM. -Prednisiolone eye drops 2 drops every 6 hours both eyes until 5:00 AM on 11/07. -Magnesium oxide 400mg by mouth daily due to low levels of magnesium. -Melatonin 6mg every night for sleep. Please use instead of Benadryl or Ativan. 5. For nausea and vomiting, take anti-emetic medications (ondansetron) at the first sign of nausea/vomiting. Continue [...] hours. - You are dizzy or lightheaded. 6. When you go home, you may experience increasing fatigue. This can be the result of [...] hands frequently and stay away from sick individuals.Pace yourself and rest when you are fatigued. Driving: Do not drive if you are feeling fatigued. Diet: Regular, healthy diet Follow-Up Appointments at [facility]: 1. On November 07: Labwork at 12:00PM at [facility] prior to going to [facility] for Neulasta and hydration. Neulasta injection at 1:00 PM (this injection may cause bone pain). This medication is to prevent infection. IV hydration will also be completed at [place] [id number]. On November 08: IV hydration at 11:00AM -- Plan for appointments on the following days: - Tuesday, 11/11: labs and transfusions (if needed) - 11/14: labs and transfusions (if needed) - 11/18: labs and transfusions (if needed) - 11/21: labs and transfusions (if needed) Follow-Up Appointments [place] [facility]: 1. Next appointment will be in 3 weeks, we will contact you with your future appointment dates at [facility]. If you have any questions or concerns, call Dr. Mondragon's office. During non- business hours, call [phone] and ask to speak to the Hematology [...] for 1 dose. Take on AM of 11/07. 10 tablet 0 11/07/2014 11/07/2014 fluconazole (DIFLUCAN) 200 mg TabletIndications:Lymph vivien,DLBCL (diffuse large B cell lymphoma),Stem cell donor,Examination of participant in clinical trial Take 1 tablet by mouth daily for 30 days. 30 tablet 3 11/04/2014 12/04/2014 ondansetron (ZOFRAN) 8 mg TabletIndications:Lymph vivien,DLBCL (diffuse large B cell lymphoma),Stem cell donor,Examination of participant in clinical trial Take 1 tablet by mouth every 8 hours as needed for Nausea. 20 tablet 3 11/04/2014 05/07/2015 LORazepam (ATIVAN) 0.5 mg TabletIndications:Lymph vivien,DLBCL (diffuse large B cell lymphoma),Stem cell donor,Examination of participant in clinical trial Take 1 tablet by mouth every 6 hours as needed for Anxiety. 30 tablet 2 11/04/2014 01/13/2015 levofloxacin (LEVAQUIN) 750 mg TabletIndications:Lymph vivien,DLBCL (diffuse large B cell lymphoma),Stem cell donor,Examination of participant in clinical trial Take 1 tablet by mouth daily for 30 days. 30 tablet 4 11/04/2014 11/25/2014 prochlorperazine (COMPAZINE) 10 mg Tablet Take 1 [...] Take 1 tablet by mouth daily. 12/25/2015 [place]-3 Fatty Acids-Vitamin E (FISH OIL) 1,000 mg CapsuleIndications:Lymp fawn Take by mouth. 01/29/2015 Calcium 500 mg TabletIndications:Lymph vivien Take by mouth. 01/29/2015 Cholecalciferol, Vitamin D3, (VITAMIN D-3) 2,000 unit CapsuleIndications:Lymp fawn Take 1,000 Units by mouth. 01/29/2015 escitalopram (LEXAPRO) 10 mg tablet 03/08/2005 01/03/2015 documented as of this encounter Progress Notes * Myrna Barriga RN - 11/06/2014 2:42 PM EDT Discharge Note: Pt discharged home. AVS reviewed with patient by provider. Patient education provided on medications and what to call for reviewed with patient. Port de accessed and flushed with heparin. Future appointments reviewed with patient. * Alyse Cornejo RN - 11/06/2014 2:04 PM EDT Office of Care Management (OCM) / Superintendent Nonselling(CM)/ Initial Assessment Discussed patient with Provider Team and in multidisciplinary discharge-planning rounds. Pt discharged home prior to my visit. IPI order signed by Dr. Nichelle Spencer on 11/04/14 @2110. REASON for HOSPITALIZATION: Myriam De Souza is a 64 y.o. female admitted with Primary Refractory DLBCL admitted to [facility] for cycle 2 of R-DHAP. PMH No past medical history on file. Past Surgical History Procedure Laterality Date ??? Pro bone marrow aspiration w/bx through same incision/site Right 03/29/2014 ([facility]) BONE MARROW ASP PERFORMED W/BX THRU BX INCISION performed by Kimberly Mondragon MD at [facility] ??? Pro bone marrow bx, needle/trocar Right 03/29/2014 ([facility]) BONE MARROW,BIOPSY performed by Kimberly Mondragon MD at [facility] ??? Pro bone marrow aspiration w/bx through same incision/site Left 09/02/2014 ([facility]) BONE MARROW ASP PERFORMED W/BX THRU BX INCISION performed by Kimberly Mondragon MD at [facility] ??? Pro bone marrow bx, needle/trocar Left 09/02/2014 ([facility]) BONE MARROW,BIOPSY performed by Kimberly Mondragon MD at [facility] ??? Pro endobronchial u/s add-on N/A 09/26/2014 ENDOBRONCHIAL ULTRASOUND (EBUS) performed by Jamey Martin MD at [facility] ENDOSCOPY PREVIOUS FUNCTIONAL STATUS: Lives alone in an apartment in [place], [place]. Pt independent. CURRENT FUNCTIONAL STATUS: Discharged home today following Chemo infusion and 1 unit of RBCs. SOCIAL / FAMILY SUPPORTS: Lila De Souza Durable Power of Coordinator [employer] [phone] CapoCarlos cruz Friend [phone] DuranKelly see Cristian [phone] ADVANCE DIRECTIVES: On file in [employer]. HEALTH /PRESCRIPTION COVERAGE: [facility] - SELF - MYRIAM DE SOUZA TRANSPLANT BILLING [facility]acy: [facility] [address] - [address] [place] [phone] Open 24 Hours?: No CURRENT HOME/COMMUNITY SERVICES/EQUIPMENT: DME: None Home Health Agency: None Other: None PLATE DRILLER REFERRAL: Not indicated. PRIMARY CARE PHYSICIAN: SOPHY FUNES (General) [address] / [facility] [address] POTENTIAL DISCHARGE NEEDS: No needs. ANTICIPATED BARRIERS TO DISCHARGE: None TRANSPORTATION @ D/C: Via private car, presumably with friends. PLAN: A fellow Superintendent Nonselling will continue to monitor progress, follow for continuity of care and assist with discharge planning while hospitalized. Alyse Cornejo RN, BSN, Superintendent Nonselling Covering Srinivasan Hoskins CM for today; pger [phone]. 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 Nichelle Spencer Date of Admission: 11/04/2014 ( Hospital Day 2 days ) Service: [facility] Nurse Practitioner Services HPI: Myriam De Souza is a 64 y.o. female with DLBCL admitted to [facility] for cycle 2 of R-DHAP. History of Present Illness: In March 2014, found to have DLBCL [...] Active Problem List Diagnosis Code ??? Lymphoma 202.80 ??? Depression with anxiety 300.4 ??? Hypokalemia 276.8 ??? Hypomagnesemia 275.2 ??? LOUISE (acute kidney injury) 584.9 ??? Neutropenia 288.00 24 Hour Events: -Slept much better with the melatonin 6mg. -notes some swelling in her face and ankles this AM. -LBM this AM. -No dizziness/lightheadedness, SOB -Slight nausea last night. Relieved with compazine. - ROS negative for: SOB, chest pain, abdominal pain, fevers, headache or N/V/D/constipation. Antimicrobials: Acyclovir 400mg po BID Chemotherapy/Transplant Meds: Cytarabine dose #2 completing today. Chemo day #3 Pain meds: None at current time Access Lines: -Right chest mediport site is CDI with no signs of infection. CURRENT MEDS: ??? magnesium oxide 400 mg Oral BID ??? melatonin 6 mg Oral Nightly ??? dexamethasone inj 40 mg Intravenous Q24H ??? acyclovir 400 mg Oral BID ??? escitalopram oxalate 10 mg Oral Daily ??? famotidine 20 mg Oral BID ??? senna-docusate 2 tablet Oral BID ??? sodium chloride 0.9 % 5 mL Intravenous BID ??? enoxaparin 40 mg Subcutaneous Daily ??? prednisoLONE acetate 2 drop Both Eyes Q6H ??? cytarabine (CYTOSAR) chemo infusion 1,000 mg/m2/dose (Treatment Plan Actual) Intravenous Q12H ??? filgrastim 480 mcg Subcutaneous Daily VITALS: Last value Range last 24 hrs Temperature Temp: 36.7 ??C (98.1 ??F) Temp: [36.6 ??C (97.9 ??F)-37 ??C (98.6 ??F)] Heart Rate Heart Rate: 76 Heart Rate: [71-85] Blood Pressure BP: 122/68 mmHg BP: (105-122)/(60-72) Respiratory Rate Resp: 16 Resp: [16-24] SpO2 SpO2: 99 % SpO2: [94 %-99 %] Intake/Output Summary (Last 24 hours) at 11/06/14 0749 Last data filed at 11/06/14 0633 Gross per 24 hour Intake 3679 ml Output 1550 ml Net 2129 ml Patient Vitals for the past 168 hrs: Weight 11/06/14 0655 70.126 kg (154 lb 9.6 oz) 11/05/14 0429 66.9 kg (147 lb 7.8 oz) 11/04/14 1816 66.1 kg (145 lb 11.6 oz) Admit wt:66.1 kg Change in weight to today: Weight change: 4.026 kg (8 lb 14 oz) PHYSICAL EXAM: Constitutional: Appears well-developed and well-nourished. No distress. HEENT: Facial edema noted dependently. EOMI, PERRL. Oropharynx is clear and moist. No oropharyngeallesions or exudate. Eyes: Conjunctivae normal are normal. Pupils [...] normal. Exam negative for adenopathy andhepatosplenomegaly. Musculoskeletal: Limited ROM of right upper arm with overhead flexion movements. Normal range of motion. Normal gait.Bilateral hands have trace edema--unable to remove rings from fingers. Lymphadenopathy: No cervical, axillary or inguinal adenopathy. Neurological: Alert and oriented to person, place, and time. Oculomotor ROM shows one beat of nystagmus in each peripheral field. Gait steady and balance intact. Bilateral sensation to texture and temperature in hands and feet intact. Finger to nose test-rapid, fluid and accurate with placement. Rapid alternating and heel to toe movements fluid and accurate. Fine and gross motor skills and coordination intact, brisk and fluid. Bilateral upper and lower strength 5/5. Pronator drift negative. Skin: Skin is warm and dry. No obvious rashes, ecchymosis, lesions or petechiae. Psychiatric: Normal mood and affect. Labs: Recent Labs 11/06/1442911/05/1442911/04/14211411/04/14 0715 WBC 4.6 5.1 3.7* 4.8 4.8 HGB 6.6* 7.2* 7.9* 9.7* HCT 19.8* 21.2* 22.9* 28.5* PLATELET 268 326 336 470* NEUTROABS 3.64 4.35 -- 2.48 Recent Labs 11/06/1442911/05/14154911/05/14429 NA 144 142 140 K 4.1 4.2 4.4 CL 110* 106 104 CO2 24 23 25 BUN 25* 22* 22* CREATININE 0.92 1.08 0.92 GLUCOSE 106 163 121 Recent Labs 11/06/1442911/05/14154911/05/1442911/04/142114 CALCIUM 8.3* 8.5 8.6 8.8 MAGNESIUM 0.68* -- 0.65* 0.65* PHOS 3.6 2.2* 3.0 2.6 Recent Labs 11/06/1442911/05/14 15511/05/14429 AST 36* 24 24 ALT 35* 25 26 ALKPHOS 65 78 78 BILITOT <0.2* 0.2 0.2 BILIDIR 0.1 <0.1 <0.1 No results for input(s): INR, PT, PTT in the last 72 hours. Recent Labs 11/06/1442911/05/14154911/05/1442911/04/142114 LDH 206 -- 219 248* URICACID 4.5 3.5 3.7 4.3 Tumor Lysis Labs: Recent Labs 11/06/1442911/05/14 15511/05/14429 URICACID 4.5 3.5 3.7 PHOS 3.6 2.2* 3.0 K 4.1 4.2 4.4 Microbiology: None at current time. Pertinent radiology/diagnostic studies: None at current time. ASSESSMENT: Myriam De Souza is a 64 y.o. female admitted for cycle 2 of R-DHAP. PLAN: #Refractory DLBCL Day 1 (11/04): Rituximab (600mg), Cisplatin (85mg) (administer over 24 hrs), Dexamethasone 40mg Day 2 (11/05): Cytarabine (1,700mg) q12hrs x2 doses, Dexamethasone 40mg Day 3 (11/06-11/07) & Day 4: Dexamethasone 40mg Patient and declined education about chemotherapy and side effects. States she understands current treatment plan. All question were answered and she is ready for chemotherapy treatment. -Watch for neurotoxicity. Neuros WNL from baseline today. -Monitor for tumor lysis. IVF NS at 125 ml/hr and BID tumor lysis labs. -Discharge home on Dexamethasone 40mg by mouth for 11/07. #Acute Anemia related to Chemotherapy Treatment -Daily CBC w/ diff -Will transfuse if Hgb is at or below 7 or if patient is symptomatic. -Transfuse 1 unit of PRBC prior to discharge today due to low Hgb. -Patient consented and understands benefits of RBC prior to discharge. #Renal Insufficiency -Creatinine clearance is calculated at 54 on day of admission. Dr. Mondragon dose reduced cisplatin to 50% and cytarabine to 1000mg/m2. -Creatinine improved to 0.92 today from 1.08. -Lasix 20mg IV today for fluid retention. #Hypomagnesmia -Replete with Mag Ox 400mg by mouth two doses prior to discharge. -Discharge home on Magnesium Oxide 400mg by mouth daily due to persistent hypomagnesemia. #Transaminitis -Noted elevation of AST 36 from 24 and ALT 35 from 25. Most likely due to hepatic clearance of chemotherapy. -Will receive labwork on 11/07 at [facility] tomorrow. #Depression with Anxiety -Continue Lexapro 10mg by mouth daily. -Continue ativan 0.5mg every 6 hours for anxiety prevention. #Insomnia -Continue 6mg of Melatonin overnight. #Nausea -Patient takes ativan 0.5mg every 8 hours and zofran 8mg every 8 hours for nausea prevention. -Continue ativan 0.5mg scheduled every 8 hours and zofran 16mg every 12 hours scheduled. #Follow-up: -Neulasta 6mg at [facility] on 11/07 -Biweekly labs on Tuesday and (CBC with Diff and CMP) the weeks of 11/11 and 11/18. -IVF at [facility] on (11/07) and Tuesday (11/08) this week. -Acyclovir 400mg BID--ongoing, Levaquin 750mg day 5 x 14 days until ANC>500, Fluconazole 200mg day 5 x 14 days until ANC >500. -Follow up in 3 weeks for PET scan, labwork and appointment with Dr. Mondragon. CODE STATUS: Full Code ADVANCE DIRECTIVES: Completed and in eDH. DIET: Regular ACTIVITY: Ambulate TID. DVT Prophylaxis: Lovenox 40mg subcutaneous daily. Early ambulation. PPI Prophylaxis: Famotodine 20mg by mouth BID. Disposition: Stable and ready for discharge after completing cycle 2 of R-DHAP. Zayra Leach, MSN, POLICE SERVICE TECHNICIAN [facility]-[address] [place], [place] [id number] Pager: [phone] HEMATOLOGY/BMT STAFF DAY OF DISCHARGE NOTE I interviewed, examined and reviewed data on Myriam De Souza. Our assessment is that she is stable and ready for discharge today. I also reviewed her current status and plans for her discharge and follow-up with Myriam De Souza, her nurse, Zayra. she is aware that should questions or concerns arise, we are available 24 hours per day. At the end of our visit Myriam De Souza confirmed that all of her questions had been addressed. > 30 minutes was spent in patient care, counseling and in arranging this discharge. Nichelle Spencer MD * Dania Viveros RN - 11/05/2014 5:29 PM EDT Myriam continues with cycle 2 of R-DHAP. Completed 24 hour cisplatin this afternoon. Hourly site checks and every four hour blood returns checks per protocol. Received 1st of 2 doses of cytarabine this evening. Pred Forte eye drops given prior to and cerebellar function tested prior to start. No nystagmus noted. * Nichelle Spencer MD - 11/05/2014 8:03 AM EDT [facility] Progress Note Patient info: Patient Name: Myriam De Souza : 1950 Service: Hematology - [employer] Responsible Attending: Dr. Nichelle Spencer Date of Admission: 11/04/2014 ( Hospital Day 1 day ) Service: [facility] Nurse Practitioner Services HPI: Myriam De Souza is a 64 y.o. female with DLBCL admitted to [facility] for cycle 2 of R-DHAP. History of Present Illness: In March 2014, found to have DLBCL [...] Active Problem List Diagnosis Code ??? Lymphoma 202.80 ??? Depression with anxiety 300.4 ??? Hypokalemia 276.8 ??? Hypomagnesemia 275.2 ??? LOUISE (acute kidney injury) 584.9 ??? Neutropenia 288.00 24 Hour Events: -Insomnia noted overnight. Melatonin helped with sleep but could not sustain sleep due to interruption with nursing care. -LBM this AM. -No dizziness/lightheadedness, SOB -Ravenous per patient. Eating well. No nausea. - ROS negative for: SOB, chest pain, abdominal pain, fevers, headache or N/V/D/constipation. Antimicrobials: Acyclovir 400mg po BID Chemotherapy/Transplant Meds: Cytarabine dose #1, due at 1630 today Chemo day #2 Pain meds: None at current time Access Lines: -Right chest mediport site is CDI with no signs of infection. CURRENT MEDS: ??? ondansetron 16 mg Oral Q12H ??? dexamethasone inj 40 mg Intravenous Q24H ??? CISplatin (PLATINOL) chemo infusion 50 mg/m2/dose (Treatment Plan Actual) Intravenous Once ??? acyclovir 400 mg Oral BID ??? escitalopram oxalate 10 mg Oral Daily ??? melatonin 3 mg Oral Nightly ??? famotidine 20 mg Oral BID ??? senna-docusate 2 tablet Oral BID ??? sodium chloride 0.9 % 5 mL Intravenous BID ??? enoxaparin 40 mg Subcutaneous Daily ??? prednisoLONE acetate 2 drop Both Eyes Q6H ??? cytarabine (CYTOSAR) chemo infusion 1,000 mg/m2/dose (Treatment Plan Actual) Intravenous Q12H ??? [START ON 11/06/2014] filgrastim 480 mcg Subcutaneous Daily VITALS: Last value Range last 24 hrs Temperature Temp: 36.7 ??C (98.1 ??F) Temp: [36.7 ??C (98.1 ??F)-36.9 ??C (98.4 ??F)] Heart Rate Heart Rate: 105 Heart Rate: [76-110] Blood Pressure BP: 118/70 mmHg BP: (110-118)/(62-72) Respiratory Rate Resp: 18 Resp: [18-20] SpO2 SpO2: 97 % SpO2: [94 %-97 %] Intake/Output Summary (Last 24 hours) at 11/05/14 0803 Last data filed at 11/05/14 0636 Gross per 24 hour Intake 3009 ml Output 950 ml Net 2059 ml Patient Vitals for the past 168 hrs: Weight 11/05/14 0429 66.9 kg (147 lb 7.8 oz) 09/21/15 1816 66.1 kg (145 lb 11.6 oz) Admit wt:66.1 kg Change in weight to today: Weight change: PHYSICAL EXAM: Constitutional: Appears well-developed and well-nourished. No distress. HEENT: EOMI, PERRL. Oropharynx is clear and moist. No oropharyngeal lesions or exudate. Eyes: Conjunctivae normal are normal. Pupils [...] normal. Exam negative for adenopathy andhepatosplenomegaly. Musculoskeletal: Limited ROM of right upper arm with overhead flexion movements. Normal range of motion. Normal gait. Exhibits no edema. Lymphadenopathy: No cervical, axillary or inguinal adenopathy. Neurological: Alert and oriented to person, place, and time. Oculomotor ROM shows one beat of nystagmus in each peripheral field. Gait steady and balance intact. Bilateral sensation to texture and temperature in hands and feet intact. Finger to nose test-rapid, fluid and accurate with placement. Rapid alternating and heel to toe movements fluid and accurate. Fine and gross motor skills and coordination intact, brisk and fluid. Bilateral upper and lower strength 5/5. Pronator drift negative. Skin: Skin is warm and dry. No obvious rashes, ecchymosis, lesions or petechiae. Psychiatric: Normal mood and affect. Labs: Recent Labs 11/05/1442911/04/14211411/04/14 0715 WBC 5.1 3.7* 4.8 4.8 HGB 7.2* 7.9* 9.7* HCT 21.2* 22.9* 28.5* PLATELET 326 336 470* NEUTROABS 4.35 -- 2.48 Recent Labs 11/05/14 0430 11/04/14211411/04/14 0715 NA 140 141 139 K 4.4 4.8 4.6 CL 104 102 96* CO2 25 26 29 BUN 22* 25* 25* CREATININE 0.92 1.07 1.10 GLUCOSE 121 199 76 Recent Labs 11/05/1442911/04/14211411/04/14 0715 CALCIUM 8.6 8.8 10.3 MAGNESIUM 0.65* 0.65* -- PHOS 3.0 2.6 -- Recent Labs 11/05/1442911/04/14211411/04/14 0715 AST 24 34* 27 ALT 26 30 29 ALKPHOS 78 92 93 BILITOT 0.2 0.2 0.3 BILIDIR <0.1 <0.1 0.1 No results for input(s): INR, PT, PTT in the last 72 hours. Recent Labs 11/05/1442911/04/14211411/04/14 0715 LDH 219 248* 285* URICACID 3.7 4.3 -- Tumor Lysis Labs: Recent Labs 11/05/1442911/04/14211411/04/14 0715 URICACID 3.7 4.3 -- PHOS 3.0 2.6 -- K 4.4 4.8 4.6 Microbiology: None at current time. Pertinent radiology/diagnostic studies: None at current time. ASSESSMENT: Myriam De Souza is a 64 y.o. female admitted for cycle 2 of R-DHAP. PLAN: #Refractory DLBCL Day 1 (11/04): Rituximab (600mg), Cisplatin (85mg) (administer over 24 hrs), Dexamethasone 40mg Day 2 (11/05): Cytarabine (1,700mg) q12hrs x2 doses, Dexamethasone 40mg Day 3 (11/06-11/07) & Day 4: Dexamethasone 40mg Patient and declined education about chemotherapy and side effects. States she understands current treatment plan. All question were answered and she is ready for chemotherapy treatment. -Watch for neurotoxicity. Neuros WNL from baseline today. -Monitor for tumor lysis. IVF NS at 125 ml/hr and BID tumor lysis labs. -Discharge home on Dexamethasone 40mg by mouth for 11/07. #Acute Anemia related to Chemotherapy Treatment -Daily CBC w/ diff -Will transfuse if Hgb is at or below 7 or if patient is symptomatic. -Transfuse 1 unit of PRBC prior to discharge tomorrow morning due to low Hgb. -Patient consented and understands benefits of RBC prior to discharge. #Renal Insufficiency -Creatinine clearance is calculated at 54 on day of admission. Dr. Mondragon dose reduced cisplatin to 50% and cytarabine to 1000mg/m2. -Creatinine improved to 0.92 today from 1.07. #Depression with Anxiety -Continue Lexapro 10mg by mouth daily. -Continue ativan 0.5mg every 6 hours for anxiety prevention. #Insomnia -Increase to 6mg of Melatonin overnight. #Nausea -Patient takes ativan 0.5mg every 8 hours and zofran 8mg every 8 hours for nausea prevention. -Continue ativan 0.5mg scheduled every 8 hours and zofran 16mg every 12 hours scheduled. #Follow-up: -Neulasta [address]mg at [facility] on 11/07 -Biweekly labs on Tuesday and (CBC with Diff and CMP) the weeks of 11/11 and 11/18. -IVF at [facility] on (11/07) and Tuesday (11/08) this week. -Acyclovir 400mg BID--ongoing, Levaquin 750mg day 5 x 14 days until ANC>500, Fluconazole 200mg day 5 x 14 days until ANC >500. -Follow up in 3 weeks for PET scan, labwork and appointment with Dr. Mondragon. CODE STATUS: Full Code ADVANCE DIRECTIVES: Completed and in eDH. DIET: Regular ACTIVITY: Ambulate TID. DVT Prophylaxis: Lovenox 40mg subcutaneous daily. Early ambulation. PPI Prophylaxis: Famotodine 20mg by mouth BID. Disposition: Stable and ready for Cycle 2 of R-DHAP. Zayra Leach, MSN, POLICE SERVICE TECHNICIAN [facility]-[address] [place] [address] Pager: [phone] Hematology Shared In-Patient Visit Attending Note I performed the counseling portion of this face to face visit with Ms. Myriam Tatianna De Souza. She is a 64year old woman with history of primary refractory DLBCL who is admitted for cycle 2 of dose reducedR-DHAP. Details of this encounter include reviewing lab, discussing treatment plan.Proceed treatment today as planned. This patient meets criteria for inpatient level of care based on the above medical complexity. Nichelle Spencer MD * Smiley Dang RN - 11/04/2014 4:59 PM EDT Pt arrived to floor at 1645 from 3K. Received report from RN in 3K. Team [id number] alerted to pt's arrival to floor. Pt oriented to room , floor, purposeful rounding, and dietary menu/ordering food. Admission assessment started. Pt alert and oriented, on room air, denies pain, able to ambulate independently. Demonstrates understanding use of call martell. Vitals stable. Continue to monitor patient and implement plan of care as ordered. * Alyse Lima RN - 11/04/2014 10:13 AM EDT Patient Name: Myriam De Souza Patient Age: 64 y.o. Birthdate: 1950 Admit date: 11/04/2014 Attending Physician: INFUSION THERAPY, MEDS TIME TREATMENT STARTED: 930 TIME TREATMENT ENDED: 1610 transferred to room 116 Myriam De Souza, 64 y.o. female with diagnosis of lymphoma is here for chemotherapy infusion of R-DHAP. CYCLE: 2 DAY: 1 S: Pt. offers no complaints at this time. O: Chemotherapy orders independently verified for correct drug name, route and dosage per patient'sheight, weight and BSA by Juan MCKEON and onsite pharmacist. Mediport right chest 1 L NS @ 150cc/hr Tylenol 650mg, Benadryl 50mg, Decadron 40mg IV prior to rituxan Emend 150mg, zofran 16mg prior to cisplatin, ativan 0.5mg Rituxan 700mg run at rapid rate Cisplatin 170mg REACTIONS (DESCRIPTION, TIME, INTERVENTION AND EFFECTIVENESS) none A: Pt. Tolerated treatment well. Myriam De Souza confirms that all questions and issues have been addressed. Report given to Smiley MCKEON, pt transported to [facility] via wheelchair. P: Return to clinic per routine. documented in this encounter H&P Notes * Nichelle Spencer MD - 11/04/2014 3:46 PM EDT [facility] Admission History and Physical Patient Name: Myriam De Souza Patient : 1950 Service: Hematology - [employer] Responsible Attending: Dr. Nichelle Spencer PCP: SOPHY FUNES (General) PCP phone #: [phone] Chief Complaint: Myriam De Souza is a 64 y.o. female admitted with Primary Refractory DLBCL admitted to [facility] for cycle 2 of R-DHAP. History of Present Illness: In March 2014, found to have DLBCL [...] cisplatin to 50% and cytarabine to 1000mg/m2. Subjective: More fatigued with this last cycle. Low energy. Stays active at home and goes out of the house daily. Meets friends for meals/shopping/visits friends. Naps for 2-3 hours daily. Right achy upper arm for past 2 days. Increasing ROM and improving symptoms. Upper shoulder pain with moving arm in front of body. When laying on arm has pain. Headache resolved. Difficulty sleeping due to frequent urination. Can fall back to sleep. Takes an ativan or benadryl to help with sleep. Vitals: Last value Range last 24 hrs Temperature Temp: [36.3 ??C (97.3 ??F)] Heart Rate Heart Rate: [88] Blood Pressure BP: (116)/(66) Respiratory Rate Resp: [18] SpO2 SpO2: [100 %] Admission Weight: No data found. Review of Systems: Constitutional: Normal energy level, no fatigue, appetite good, no recent weight change, no fevers/chills, night sweats. HEENT: No ARVIZU, neck pain, rhinitis, nasal congestion, sore throat or mouth sores. Resp: No SOB, HAUSER, cough, or chest tightness. CV: No chest pain or palpitations. No LE edema. Abd: No abd pain, reflux, N/V/D/C. LBM today. : No dysuria, urgency, frequency. Musculoskeletal: Right shoulder pain with postioning and ROM; improving. No muscle or joint pain. Neuro: Generalized muscle weakness--bilaterally legs. No neuropathy, gait imbalance, lightheadedness or dizziness. Heme: No easy bruising or bleeding. Skin: No rash. Psych: Mood stable. No confusion or memory problems. Pain: Negative Problem List/Past Medical History Patient Active Problem [...] was not informative according to the [place] take out waiter, but the strong BCL2 expression in the absence of MUM1 suggests a germinal center origin via the [place]is take out waiter. Lymphoma TB discussion 10/01/14 Recommendations for salvage chemotherapy and autologous stem cell transplant. C#1 RDHAP 10/09/14 With stem cell collection C#2 RDHAP 11/04/14 PET scan pending Meds: Prior to Admission medications Medication Sig Start Date End Date Taking? Authorizing Provider ondansetron (ZOFRAN) 8 mg Tablet Take 1 tablet by mouth every 8 hours as needed for Nausea. 11/04/14Kimberly Mondragon MD LORazepam (ATIVAN) 0.5 mg Tablet Take 1 tablet by mouth every 6 hours as needed for Anxiety. 11/04/14 Kimberly Mondragon MD levofloxacin (LEVAQUIN) 750 mg Tablet Take 1 tablet by mouth daily for 30 days. 11/04/14 12/04/14 Kimberly Mondragon MD fluconazole (DIFLUCAN) 200 mg Tablet Take 1 tablet by mouth daily for 30 days. 11/04/14 12/04/14 Kimberly Mondragon MD prochlorperazine (COMPAZINE) 10 mg Tablet Take 1 tablet by mouth every 6 hours as needed for Nausea. 10/25/14 Elie Grace MD ondansetron (ZOFRAN, HYDROCHLORIDE,) 4 mg Tablet Take 1 tablet by mouth every 8 hours as needed for Nausea. 10/11/14 Elsi Mena MD acyclovir (ZOVIRAX) 400 mg Tablet Take 1 tablet by mouth 2 times daily. 10/11/14 Elsi Mena MD LORazepam (ATIVAN) 0.5 mg Tablet Take 1 tablet by mouth every 6 hours as needed for Anxiety. 10/11/14 11/04/14 Elsi Mena MD LORazepam (ATIVAN) 0.5 mg Tablet Take 1 tablet by mouth every 6 hours as needed for Anxiety. Patient takes one tablet in the morning, and two tablets at night 09/30/14 11/04/14 Kimberly Mondragon MD docusate sodium (COLACE) 100 mg Capsule Take 100 mg by mouth 2 times daily. PROVIDER, HISTORICAL senna (SENOKOT) 8.6 mg Tablet Take 1 tablet by mouth daily. PROVIDER, HISTORICAL [place]-3 Fatty Acids-Vitamin E (FISH OIL) 1,000 mg Capsule Take by mouth. PROVIDER, HISTORICAL Calcium 500 mg Tablet Take by mouth. PROVIDER, HISTORICAL Cholecalciferol, Vitamin D3, (VITAMIN D-3) 2,000 unit Capsule Take 1,000 Units by mouth. PROVIDER, HISTORICAL escitalopram (LEXAPRO) 10 mg tablet 03/08/05 Allergies: Allergies Allergen Reactions ??? Tegaderm [Transparent Dressings] Other (See Comments) Unsure if actual allergy, please try [id number] Skin tears/rawness Family History: No family history on file. Social History: History Substance Use Topics ??? Smoking status: Never Smoker ??? Smokeless tobacco: Never Used ??? Alcohol Use: 1.2 oz/week 2 Glasses of wine per week History Social History Narrative Living situation: Lives by herself in an apartment. Seeing a gentleman friend now. Daughter in [place] and another daughter in [facility]. Supportive friend group. 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 Examination: Constitutional: Appears well-developed and well-nourished. No distress. HEENT: EOMI, PERRL. Oropharynx is clear and moist. No oropharyngeal lesions or exudate. Eyes: Conjunctivae normal are normal. Pupils [...] normal. Exam negative for adenopathy andhepatosplenomegaly. Musculoskeletal: Limited ROM of right upper arm with overhead flexion movements. Normal range of motion. Normal gait. Exhibits no edema. Lymphadenopathy: No cervical, axillary or inguinal adenopathy. Neurological: Alert and oriented to person, place, and time. Oculomotor ROM shows one beat of nystagmus in each peripheral field. Gait steady and balance intact. Biceps and patellar reflexes 2+ bilaterally. Bilateral sensation to texture and temperature in hands and feet intact. Finger to nose test-rapid, fluid and accurate with placement. Rapid alternating and heel to toe movements fluid and accurate. Fine and gross motor skills and coordination intact, brisk and fluid. Bilateral upper and lower strength 5/5. Pronator drift negative. Skin: Skin is warm and dry. No obvious rashes, ecchymosis, lesions or petechiae. Psychiatric: Normal mood and affect. Access Lines: Right chest mediport site is CDI with no evidence of infection. Laboratory: Recent Labs 11/04/14 0715 WBC 4.8 4.8 HGB 9.7* HCT 28.5* PLATELET 470* NEUTROABS 2.48 Recent Labs 11/04/14 0715 NA 139 K 4.6 CL 96* CO2 29 BUN 25* CREATININE 1.10 Recent Labs 11/04/14 0715 AST 27 ALT 29 ALKPHOS 93 BILITOT 0.3 BILIDIR 0.1 Recent Labs 11/04/14 0715 CALCIUM 10.3 No results for input(s): PT, PTT, FIBRINOGEN, DDIMER in the last 168 hours. Invalid input(s): THROMBIN TIME Recent Labs 11/04/14 0715 LDH 285* Microbiology: None at current time Relevant Diagnostic Studies: None at current time ASSESSMENT: Myriam De Souza is a 64 y.o. female admitted for cycle 2 of R-DHAP. PLAN: #Refractory DLBCL Day 1 (11/04): Rituximab (600mg), Cisplatin (85mg) (administer over 24 hrs), Dexamethasone 40mg Day 2 (11/05): Cytarabine (1,700mg) q12hrs x2 doses, Dexamethasone 40mg Day 3 (11/06-11/07) & Day 4: Dexamethasone 40mg Patient and declined education about chemotherapy and side effects. States she understands current treatment plan. All question were answered and she is ready for chemotherapy treatment. -Watch for neurotoxicity. Neuros WNL from baseline today. -Monitor for tumor lysis. IVF NS at 125 ml/hr and BID tumor lysis labs. #Acute Anemia related to Chemotherapy Treatment -Daily CBC w/ diff -Will transfuse if Hgb is at or below 7 or if patient is symptomatic. #Renal Insufficiency -Creatinine clearance is calculated at 54. Dr. Mondragon dose reduced cisplatin to 50% and cytarabine to 1000mg/m2. #Depression with Anxiety -Continue Lexapro 10mg by mouth daily. -Continue ativan 0.5mg every 6 hours for anxiety prevention. #Nausea -Patient takes ativan 0.5mg every 8 hours and zofran 8mg every 8 hours for nausea prevention. -Continue ativan 0.5mg scheduled every 8 hours and zofran 16mg every 12 hours scheduled. #Follow-up: -Neulasta 6mg at [facility] on 11/07 -Biweekly labs on Tuesday and (CBC with Diff and CMP) the weeks of 11/11 and 11/18. -IVF at [facility] on (11/07) and Tuesday (11/08) this week. -Acyclovir 400mg BID--ongoing, Levaquin 750mg day 5 x 14 days until ANC>500, Fluconazole 200mg day 5 x 14 days until ANC >500. -Follow up in 3 weeks for PET scan, labwork and appointment with Dr. Mondragon. CODE STATUS: Full Code ADVANCE DIRECTIVES: Completed and in eDH. DIET: Regular ACTIVITY: Ambulate TID. DVT Prophylaxis: Lovenox 40mg subcutaneous daily. Early ambulation. PPI Prophylaxis: Famotodine 20mg by mouth BID. Disposition: Stable and ready for Cycle 2 of R-DHAP. Zayra Leach, MSN, POLICE SERVICE TECHNICIAN [facility]-[address] [place] [phone] Pager: [phone] Hematology Shared In-Patient Visit Attending Note I performed the counseling portion of this face to face visit with Ms. Myriam Olivaresernestina. She is a 64year old woman with history of primary refractory DLBCL who is admitted for cycle 2 of dose reducedR-DHAP. Details of this encounter include reviewing lab, discussing treatment plan. This patient meets criteria for inpatient level of care based on the above medical complexity. Nichelle Spencer MD documented in this encounter Miscellaneous Notes * Plan of Care - Myrna Barriga RN - 11/06/2014 1:05 PM EDT Problem: General Plan of Care Goal: Plan of Care Review Outcome: Outcome (s) achieved Date Met: 11/06/14 11/06/14 1301 Plan of Care Review Plan of Care Outcome Status outcome achieved Progress progress toward functional goals as expected Coping/Psychosocial Response Interventions Plan of Care Reviewed with patient OUTCOME EVALUATION NOTE: OUTCOME SUMMARY: Pt was pleasant throughout shift. Chemo infusion completed. 1 unit RBCs transfused, patient did notexperience a reaction. Discharge today PLAN MOVING FORWARD: Discharge INDIVIDUALIZED FALL PREVENTION: Assistance: No devices used Supervision: Eyes on, independent Surveillance: Hourly rounding, environmental modifications, fall reduction program maintained CPG GOAL OUTCOME EVALUATION: Goal: Individualization and Mutuality Outcome: Outcome (s) achieved Date Met: 11/06/14 Goal: Fall Prevention-Safe Patient Handling Outcome: Outcome (s) achieved Date Met: 11/06/14 11/06/14 1050 Garza Fall Risk History of Falling 0 Secondary Diagnosis 15 Ambulatory Aids 0 Intravenous Therapy/Heparin/Saline Lock 20 Gait/Transferring 0 Mental Status 0 Score 35 OTHER Garza Fall Risk Med Safety Interventions Safety Precautions/Fall Reduction fall reduction program maintained;environmental modification;nonskid shoes/slippers when out of bed;lighting adjusted for task/safety Musculoskeletal Interventions Activity/Level of Assistance up ad fernanda;up in room;independently Positioning independent Goal: Infection Control Outcome: Outcome (s) achieved Date Met: 11/06/14 11/06/14 1050 Coping/Psychosocial Response Interventions Counseling calming techniques promoted;emotional support provided;reassurance provided;understanding of situation facilitated;verbalization of feelings encouraged Safety Interventions Isolation Precautions standard precautions maintained Infection Prevention rest/sleep promoted;promote handwashing;nutrition promoted;hydration promoted;environmental surveillance;bronchial hygiene promoted Goal: Discharge Needs Assessment Outcome: Outcome (s) achieved Date Met: 11/06/14 Problem: Chemotherapy Effects (Adult) Goal: Signs and symptoms of listed potential problems will be absent or manageable (reference (Chemotherapy Effects (Adult)) CPG) Outcome: Outcome (s) achieved Date Met: 11/06/14 Problem: Skin Integrity Impairment, Risk/Actual (Adult, Obstetrics) Goal: Identify Signs and Symptoms and Related Risk Factors Signs and symptoms and related risk factors are identified upon initiation of Human Response Clinical Practice Guideline (CPG) Outcome: Outcome (s) achieved Date Met: 11/06/14 11/05/14 0319 Skin Integrity Impairment, Risk/Actual Personal Related Risk Factors (Skin Integrity Impairment, Risk/Actual) stress Physiological Related Risk Factors (Skin Integrity Impairment, Risk/Actual) malignancy Treatment Related Related Risk Factors (Skin Integrity Impairment, Risk/Actual) invasive catheters;medication Goal: Skin Integrity/Wound Healing Patient will demonstrate the desired outcomes. Outcome: Outcome (s) achieved Date Met: 11/06/14 11/06/14 1301 Skin Integrity Impairment, Risk/Actual (Adult, Obstetrics) Skin Integrity/Wound Healing achieves outcome * Plan of Care - Jeanine Yoder RN - 11/06/2014 5:49 AM EDT Problem: General Plan of Care Goal: Plan of Care Review Outcome: Ongoing (Interventions Implemented as Appropriate) 11/06/14546 Plan of Care Review Plan of Care Outcome Status ongoing (interventions implemented as appropriate) Progress progress toward functional goals as expected Coping/Psychosocial Response Interventions Plan of Care Reviewed with patient OUTCOME EVALUATION NOTE: OUTCOME SUMMARY: Myriam had a quiet night overnight. Given PRN antinausea meds with relief noted. Continues with second bag of cytarabine with negative cerebellar checks present. PLAN MOVING FORWARD: Receive 1 unit PRBCs after cytarabine finishes then discharge to home at 1 pm INDIVIDUALIZED FALL PREVENTION: Assistance: Independent Supervision: Intermittent Surveillance: Hourly rounding performed; VS taken; AM labs drawn CPG OUTCOME EVALUATION: Goal: Fall Prevention-Safe Patient Handling Outcome: Ongoing (Interventions Implemented as Appropriate) 11/05/142301 Garza Fall Risk History of Falling 0 Secondary Diagnosis 15 Ambulatory Aids 0 Intravenous Therapy/Heparin/Saline Lock 20 Gait/Transferring 0 Mental Status 0 Score 35 OTHER Garza Fall Risk Med Safety Interventions Safety Precautions/Fall Reduction chemotherapeutic agent precautions;elopement precautions initiated;environmental modification;fall reduction program maintained;lighting adjusted for task/safety;lowbed;nonskid shoes/slippers when out of bed;room near unit station Musculoskeletal Interventions Activity/Level of Assistance up ad fernanda;up in room;ambulated;independently Positioning independent Goal: Infection Control Outcome: Ongoing (Interventions Implemented as Appropriate) 11/05/142301 Coping/Psychosocial Response Interventions Counseling emotional support provided;calming techniques promoted;reassurance provided Safety Interventions Isolation Precautions standard precautions maintained Infection Prevention bronchial hygiene promoted;environmental surveillance;hydration promoted;nutrition promoted;promote handwashing;rest/sleep promoted Problem: Chemotherapy Effects (Adult) Goal: Signs and symptoms of listed potential problems will be absent or manageable (reference (Chemotherapy Effects (Adult)) CPG) Outcome: Ongoing (Interventions Implemented as Appropriate) 11/06/14546 Chemotherapy Effects Problems Assessed (Chemotherapy Effects) all Problems Present (Chemotherapy Effects) altered nutrition;nausea and vomiting Problem: Skin Integrity Impairment, Risk/Actual (Adult, Obstetrics) Goal: Skin Integrity/Wound Healing Patient will demonstrate the desired outcomes. Outcome: Ongoing (Interventions Implemented as Appropriate) 11/06/14546 Skin Integrity Impairment, Risk/Actual (Adult, Obstetrics) Skin Integrity/Wound Healing making progress toward outcome * Plan of Care - Violeta Andre RN - 11/05/2014 5:40 PM EDT Problem: General Plan of Care Goal: Plan of Care Review Outcome: Ongoing (Interventions Implemented as Appropriate) 11/05/1431811/05/14814 Plan of Care Review Plan of Care Outcome Status ongoing (interventions implemented as appropriate) -- Progress progress toward functional goals as expected -- Coping/Psychosocial Response Interventions Plan of Care Reviewed with -- patient OUTCOME EVALUATION NOTE: OUTCOME SUMMARY: Continued with chemo regimen. C/o nausea one time, given 16mg zofran as scheduled with good effect. No complaints of pain, VSS. Hgb: 7.2. PLAN MOVING FORWARD: Plan for discharge tomorrow around noon. RBC transfusion scheduled for head swamper after chemo (around 0730) before discharge to home. INDIVIDUALIZED FALL PREVENTION: Assistance: Independent/IV pole. Supervision: Call martell in reach, pt rings appropriately. Surveillance: Hourly/purposeful rounding. CPG GOAL OUTCOME EVALUATION: Ongoing. Problem: Chemotherapy Effects (Adult) Goal: Signs and symptoms of listed potential problems will be absent or manageable (reference (Chemotherapy Effects (Adult)) CPG) Outcome: Ongoing (Interventions Implemented as Appropriate) 11/05/14318 Chemotherapy Effects Problems Assessed (Chemotherapy Effects) all Problems Present (Chemotherapy Effects) nausea and vomiting Problem: Skin Integrity Impairment, Risk/Actual (Adult, Obstetrics) Goal: Identify Signs and Symptoms and Related Risk Factors Signs and symptoms and related risk factors are identified upon initiation of Human Response Clinical Practice Guideline (CPG) Outcome: Ongoing (Interventions Implemented as Appropriate) 11/05/14318 Skin Integrity Impairment, Risk/Actual Personal Related Risk Factors (Skin Integrity Impairment, Risk/Actual) stress Environmental Related Risk Factors (Skin Integrity Impairment, Risk/Actual) trauma Physiological Related Risk Factors (Skin Integrity Impairment, Risk/Actual) malignancy Treatment Related Related Risk Factors (Skin Integrity Impairment, Risk/Actual) invasive catheters;medication * Initial Assessments - Clementine Renteria PT - 11/05/2014 9:09 AM EDT Physical Therapy Brief Evaluation Patient profile: Patient is a 64 y.o. female admitted by Dr. Gupta on 11/04/2014 with h/x of lymphoma is here for chemotherapy infusion of R-DHAP. Pt consulted for h/x R arm pain after previous chemo. PMH: Depression with anxiety ??? Hypokalemia ??? Hypomagnesemia ??? LOUISE (acute kidney injury) ??? Neutropenia ??? 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 Social History:Lives by herself in an apartment. D in [place], D in [place], supportive friends, [employer]. More fatigued with this last cycle. Low energy. Stays active at home and goes out of the house daily. Meets friends for meals/shopping/visits friends. Naps for 2-3 hours daily. Right achy upper arm for past 2 days. Increasing ROM and improving symptoms. Upper shoulder pain with moving arm in front of body. When laying on arm has pain Precautions/Special Considerations: port Subjective: Right now it's fine.* I didn't realize how tight my neck and jaw were Objective: Pt was seen for brief evaluation, instruction in general arm exercises, review of relaxation strategies. Pain: no complaints Mental Status/Behavior: h/x of depression and anxiety, Lexapro and Ativan Strength: WNL ROM: WNL in shoulders, no c/o pain or limited ROM, shown pendulums, shoulder circles, flexion and general relaxation exercises. Sensation: denies neuropathies Bed Mobility: independent Transfers: ? ? Sit <-> Stand independent Gait: ??? Pt. Ambulates independently Education: Pt educated on role of therapy, general exercises, relaxation exercises, pendulums, shoulder circles. Patient status, treatment, and mobility recommendations discussed with nursing. Y Assessment: Pt seen for brief evaluation. Pt had developed RUE pain after last chemo Rx, symptoms have resolved, pt presents with good ROM, using RUE functionally. Able to do general exercises and ambulates for exercise. Plan: Home after chemo is finished. PET scan in a couple of weeks, hoping to have a transplant. Discharge Recommendations: Continue with functional activity in preparation of possible transplant. Total time spent with patient: 18 minutes Total timed interventions: 0 minutes Pager: [phone] CLEMENTINE RENTERIA, PT Physical Therapy Rehabilitation Department * Plan of Care - Blank Perez RN - 11/05/2014 3:25 AM EDT Problem: General Plan of Care Goal: Plan of Care Review Outcome: Ongoing (Interventions Implemented as Appropriate) 11/05/14318 Plan of Care Review Plan of Care Outcome Status ongoing (interventions implemented as appropriate) Progress progress toward functional goals as expected Coping/Psychosocial Response Interventions Plan of Care Reviewed with patient OUTCOME EVALUATION NOTE: OUTCOME SUMMARY: Pt tolerated chemo without issue. Expressed preference for oral ondansetron to be 8mg scheduled every 8 hours rather than 16mg Q12 hours. Discussed with night cover-will address in a.m. With [employer]. Pt also questioning lack of order for levaquin and fluconazole as she was taking both at home and had recently refilled her rx. PLAN MOVING FORWARD: Continue R-DHAP as ordered. Monitor for chemo side effects and treat appropriately. Education and emotional support as needed. Clarify medications with team in a.m. INDIVIDUALIZED FALL PREVENTION: Assistance: Independent. Supervision: Intermittent-using call martell appropriately for assistance. Surveillance: VS, I/O, labs, daily weight, purposeful rounding. CPG GOAL OUTCOME EVALUATION: Problem: Chemotherapy Effects (Adult) Goal: Signs and symptoms of listed potential problems will be absent or manageable (reference (Chemotherapy Effects (Adult)) CPG) Outcome: Ongoing (Interventions Implemented as Appropriate) 11/05/14318 Chemotherapy Effects Problems Assessed (Chemotherapy Effects) all Problems Present (Chemotherapy Effects) nausea and vomiting Problem: Skin Integrity Impairment, Risk/Actual (Adult, Obstetrics) Goal: Identify Signs and Symptoms and Related Risk Factors Signs and symptoms and related risk factors are identified upon initiation of Human Response Clinical Practice Guideline (CPG) Outcome: Ongoing (Interventions Implemented as Appropriate) 11/05/14318 Skin Integrity Impairment, Risk/Actual Personal Related Risk Factors (Skin Integrity Impairment, Risk/Actual) stress Environmental Related Risk Factors (Skin Integrity Impairment, Risk/Actual) trauma Physiological Related Risk Factors (Skin Integrity Impairment, Risk/Actual) malignancy Treatment Related Related Risk Factors (Skin Integrity Impairment, Risk/Actual) invasive catheters;medication documented in this encounter Plan of Treatment Upcoming Encounters Date Type Department Care Team (Late st Contact Info) Description 12/07/2023 12:00 PM EDT Office Visit Dermatology at [facility] [address] [place] [id number] Juan F Chappell MD [facility] [address] [place] [address] documented as of this encounter Procedures Procedure Name Priority Date/Time Associated Diagnosis Comments LAB SCAN 11/07/2014 12:00 AM EDT LAB SCAN 11/07/2014 12:00 AM EDT TRANSFUSE RED BLOOD CELLS Routine 11/06/2014 8:59 AM EDT HEMOGRAM Routine 11/06/2014 4:30 AM EDT Lymphoma DIFFERENTIAL, AUTOMATED Routine 11/06/2014 4:30 AM EDT Lymphoma CBC (WITH DIFF) Routine 11/06/2014 4:30 AM EDT Lymphoma URIC ACID Routine 11/06/2014 4:30 AM EDT Lymphoma PHOSPHORUS Routine 11/06/2014 4:30 AM EDT Lymphoma MAGNESIUM Routine 11/06/2014 4:30 AM EDT LACTATE DEHYDROGENASE Routine 11/06/2014 4:30 AM EDT COMPREHENSIVE METABOLIC PANEL Routine 11/06/2014 4:30 AM EDT Lymphoma PREPARE RBC Routine 11/06/2014 12:00 AM EDT URIC ACID Routine 11/05/2014 3:50 PM EDT Lymphoma PHOSPHORUS Routine 11/05/2014 3:50 PM EDT Lymphoma COMPREHENSIVE METABOLIC PANEL Routine 11/05/2014 3:50 PM EDT Lymphoma HEMOGRAM Routine 11/05/2014 4:30 AM EDT Lymphoma DIFFERENTIAL, AUTOMATED Routine 11/05/2014 4:30 AM EDT Lymphoma CBC (WITH DIFF) Routine 11/05/2014 4:30 AM EDT Lymphoma URIC ACID Routine 11/05/2014 4:30 AM EDT Lymphoma PHOSPHORUS Routine 11/05/2014 4:30 AM EDT Lymphoma MAGNESIUM Routine 11/05/2014 4:30 AM EDT LACTATE DEHYDROGENASE Routine 11/05/2014 4:30 AM EDT COMPREHENSIVE METABOLIC PANEL Routine 11/05/2014 4:30 AM EDT Lymphoma DIFFERENTIAL, MANUAL Routine 11/04/2014 9:15 PM EDT HEMOGRAM Routine 11/04/2014 9:15 PM EDT Lymphoma CBC (WITH DIFF) Routine 11/04/2014 9:15 PM EDT Lymphoma URIC ACID Routine 11/04/2014 9:15 PM EDT Lymphoma PHOSPHORUS Routine 11/04/2014 9:15 PM EDT Lymphoma MAGNESIUM Routine 11/04/2014 9:15 PM EDT Lymphoma LACTATE DEHYDROGENASE Routine 11/04/2014 9:15 PM EDT Lymphoma COMPREHENSIVE METABOLIC PANEL Routine 11/04/2014 9:15 PM EDT Lymphoma documented in this encounter Results * SCAN DOC: LAB (11/07/2014 12:00 AM EDT) Scanning Provider MEDIA MGR SCAN EXT O RDR/RSLT * SCAN DOC: LAB (11/07/2014 12:00 AM EDT) Scanning Provider MEDIA MGR SCAN EXT O RDR/RSLT * Transfuse RBC (11/06/2014 11:05 AM EDT) Nichelle Selby MD NURSING TREATMENT OR DERABLES - BLOOD ADMIN * Transfuse RBC (11/06/2014 11:05 AM EDT) Nichelle Selby MD NURSING TREATMENT OR DERABLES - BLOOD ADMIN * (ABNORMAL) Magnesium (11/06/2014 4:30 AM EDT) Magnesium 0.68(L) 0.69 - 1.07 mmol/L CERNER MILLENNIUM Blood specimen (specimen) Venous Draw / Unknown 11/06/2014 4:30 AM EDT 11/06/2014 4:34 AM EDT Narrative Resulting Agency Comment Spec In Lab Kimberly Mondragon MD CHEMISTRY ORDERA BLES Performing Organization Address City/[facility]/ZIP Co de Phone Number CERNER DEWAYNEENNIUM * Lactate Dehydrogenase (11/06/2014 4:30 AM EDT) Lactate Dehydrogenase 206 110 - 220 unit/L CERNER MILLENNIUM Blood specimen (specimen) Venous Draw / Unknown 11/06/2014 4:30 AM EDT 11/06/2014 4:34 AM EDT Narrative Resulting Agency Comment Spec In Lab Kimberly Mondragon MD CHEMISTRY ORDERA BLES CERNER DEWAYNEENNIUM * (ABNORMAL) Differential, Automated (11/06/2014 4:30 AM EDT) Neutrophil % 79.7 % CERNER MILLENNIUM Neutrophil Absolute 3.64 1.50 - 6.30 x10(3)/mc L CERNER MILLENNIUM Lymph % 10.9 % CERNER MILLENNIUM Lymphocytes Abs 0.5(L) 1.0 - 3.6 x10(3)/mc L CERNER MILLENNIUM Monocyte % 9.2 % CERNER MILLENNIUM Monocyte Abs 0.4 0.2 [...] x10(3)/mc L CERNER MILLENNIUM Blood specimen (specimen) 11/06/2014 4:30 AM EDT 11/06/2014 4:34 AM EDT Narrative Resulting Agency Comment Spec In Lab Kimberly Mondragon MD HEMATOLOGY ORDER AYO CERNER MILLENNIUM * (ABNORMAL) Hemogram (11/06/2014 4:30 AM EDT) White Blood Cell 4.6 4.0 - 10.0 x10(3)/mc L CERNER MILLENNIUM Red Blood Cell 2.14(L) 3.93 - 5.22 x10(6)/mc L CERNER MILLENNIUM Hemoglobin 6.6(L) 11.2 - 15.7 gm/dL CERNER MILLENNIUM Hematocrit 19.8(L) 34.0 - 45.0 % CERNER MILLENNIUM Mean Cell Volume 92.5 79.0 - 94.0 fL CERNER MILLENNIUM Mean Cell Hemoglobin 30.8 26.6 - 32.2 pg CERNER MILLENNIUM Mean Cell Hemoglobin Concentration 33.3 32.0 - 36.5 gm/dL CERNER MILLENNIUM Platelet 268 145 - 370 x10(3)/mc L CERNER MILLENNIUM RDW Standard Deviation 39.5 35.0 - 46.0 fL CERNER MILLENNIUM RDW coefficient of variation 12.9 10.9 - 14.4 % CERNER MILLENNIUM Mean Platelet Volume 8.6(L) 9.0 - 12.0 fL CERNER MILLENNIUM Blood specimen (specimen) 11/06/2014 4:30 AM EDT 11/06/2014 4:34 AM EDT Narrative Resulting Agency Comment Spec In Lab Kimberly Mondragon MD HEMATOLOGY ORDER AYO Performing Organization Address [facility] Co de Phone Number [facility] * Uric acid (11/06/2014 4:30 AM EDT) Uric Acid 4.5 2.5 - 6.5 mg/dL [facility] MILL[facility] Blood specimen (specimen) 11/06/2014 4:30 AM EDT 11/06/2014 4:34 AM EDT Narrative Resulting Agency Comment Spec In Lab Kimberly Mondragon MD CHEMISTRY ORDERA BLES Performing Organization Address [facility] de Phone Number [facility] * Phosphorus (11/06/2014 4:30 AM EDT) Phosphorus 3.6 2.5 - 4.5 mg/dL [facility] MILL[facility] Blood specimen (specimen) 11/06/2014 4:30 AM EDT 11/06/2014 4:34 AM EDT Narrative Resulting Agency Comment Spec In Lab Kimberly Mondragon MD CHEMISTRY ORDERA BLES Performing Organization Address [facility] de Phone Number [facility] * (ABNORMAL) Comprehensive metabolic panel (non-fasting) (11/06/2014 4:30 AM EDT) Glucose 106 65 - 199 mg/dL [facility] MILLENNIUM Comment:Diabetes: >=200 mg/d L plus symptoms Blood Urea Nitrogen 25(H) 8 - 18 mg/dL [facility] Creatinine 0.92 0.70 - 1.20 mg/dL [facility]ILL[facility] Comment: Please note that the pediatric reference intervals supplied above were not validated at [facility]. Results from pediatric patients should be interpreted [...] Laboratory if there are any questions. Chloride 110(H) 98 - 107 mmol/L CERNER MILLENNIUM Carbon Dioxide 24 22 - 31 mmol/L CERNER MILLENNIUM Anion Gap 10 5 - 15 mmol/L CERNER MILLENNIUM Calcium 8.3(L) 8.5 - 10.5 mg/dL CERNER MILLENNIUM Protein, Total 5.0(L) 6.1 - 8.0 gm/dL CERNER MILLENNIUM Albumin 3.2 3.2 - 5.2 gm/dL CERNER MILLENNIUM Aspartate Aminotransferase 36(H) 0 - 30 unit/L CERNER MILLENNIUM Alanine Aminotransferase 35(H) 0 - 30 unit/L CERNER MILLENNIUM Alkaline Phosphatase 65 40 - 104 unit/L CERNER MILLENNIUM Bilirubin, Total <0.2(L) 0.2 - 1.3 mg/dL CERNER MILLENNIUM Bilirubin, [...] the following links into your internet browser. [email or web address] Blood specimen (specimen) 11/06/2014 4:30 AM EDT 11/06/2014 4:34 AM EDT Narrative Resulting Agency Comment Spec In Lab Kimberly Mondragon MD CHEMISTRY ORDERA BLES Performing Organization Address [facility] Co de Phone Number [facility] * Prepare RBC (11/06/2014 12:00 AM EDT) Dispensed? Yes [facility] Blood specimen (specimen) 11/06/2014 11/05/2014 11:00 PM EDT Nichelle Selby MD BLOOD BANK PRODUCT O RDERABLES Performing Organization Address [facility] Co de Phone Number [facility] * Uric acid (11/05/2014 3:50 PM EDT) Uric Acid 3.5 2.5 - 6.5 mg/dL [facility] Blood specimen (specimen) 11/05/2014 3:50 PM EDT 11/05/2014 4:10 PM EDT Narrative Resulting Agency Comment Spec In Lab Kimberly Mondragon MD CHEMISTRY ORDERA BLES Performing Organization Address [facility] Co de Phone Number [facility] * (ABNORMAL) Phosphorus (11/05/2014 3:50 PM EDT) Phosphorus 2.2(L) 2.5 - 4.5 mg/dL [facility] Blood specimen (specimen) 11/05/2014 3:50 PM EDT 11/05/2014 4:10 PM EDT Narrative Resulting Agency Comment Spec In Lab Kimberly Mondragon MD CHEMISTRY ORDERA BLES Performing Organization Address [facility] de Phone Number [facility] * (ABNORMAL) Comprehensive metabolic panel (non-fasting) (11/05/2014 3:50 PM EDT) Glucose 163 65 - 199 mg/dL [facility] Comment:Diabetes: >=200 mg/d L plus symptoms Blood Urea Nitrogen 22(H) 8 - 18 mg/dL [facility] Creatinine 1.08 0.70 - 1.20 mg/dL CERNER MILLENNIUM Comment: Please note that the pediatric reference intervals supplied above were not validated at [facility]. Results from pediatric patients should be interpreted [...] Laboratory if there are any questions. Chloride 106 98 - 107 mmol/L CERNER MILLENNIUM Carbon Dioxide 23 22 - 31 mmol/L CERNER MILLENNIUM Anion Gap 13 5 - 15 mmol/L CERNER MILLENNIUM Calcium 8.5 8.5 - 10.5 mg/dL CERNER MILLENNIUM Protein, Total 5.4(L) 6.1 - 8.0 gm/dL CERNER MILLENNIUM Albumin 3.7 3.2 - 5.2 gm/dL CERNER MILLENNIUM Aspartate Aminotransferase 24 0 - 30 unit/L CERNER MILLENNIUM Alanine Aminotransferase 25 0 - 30 unit/L CERNER MILLENNIUM Alkaline Phosphatase 78 40 - 104 unit/L CERNER MILLENNIUM Bilirubin, Total 0.2 0.2 - 1.3 mg/dL CERNER MILLENNIUM Bilirubin, Direct <0.1 0.0 - 0.3 mg/dL CERNER MILLENNIUM Est [...] the following links into your internet browser. [email or web address] Blood specimen (specimen) 11/05/2014 3:50 PM EDT 11/05/2014 4:10 PM EDT Narrative Resulting Agency Comment Spec In Lab Kimberly Mondragon MD CHEMISTRY ORDERA BLES GIBRAN GEEIUM * Lactate Dehydrogenase (11/05/2014 4:30 AM EDT) Lactate Dehydrogenase 219 110 - 220 unit/L CERNER DEWAYNEENNIUM Blood specimen (specimen) Venous Draw / Unknown 11/05/2014 4:30 AM EDT 11/05/2014 4:39 AM EDT Narrative Resulting Agency Comment Spec In Lab Kimberly Mondragon MD CHEMISTRY ORDERA BLES Performing Organization Address City/[facility] Co de Phone Number GIBRAN GEEIUM * (ABNORMAL) Magnesium (11/05/2014 4:30 AM EDT) Magnesium 0.65(L) 0.69 - 1.07 mmol/L GIBRAN GEEIUM Blood specimen (specimen) Venous Draw / Unknown 11/05/2014 4:30 AM EDT 11/05/2014 4:39 AM EDT Narrative Resulting Agency Comment Spec In Lab Kimberly Mondragon MD CHEMISTRY ORDERA BLES Performing Organization Address [facility] Co de Phone Number GIBRAN GEEIUM * (ABNORMAL) Differential, Automated (11/05/2014 4:30 AM EDT) Neutrophil % 85.4 % CERNER MILLENNIUM Neutrophil Absolute 4.35 1.50 - 6.30 x10(3)/mc L CERNER MILLENNIUM Lymph % 7.9 % CERNER MILLENNIUM Lymphocytes Abs 0.4(L) 1.0 - 3.6 x10(3)/mc L CERNER MILLENNIUM Monocyte % 6.5 % CERNER MILLENNIUM Monocyte Abs 0.3 0.2 [...] x10(3)/mc L CERNER MILLENNIUM Blood specimen (specimen) 11/05/2014 4:30 AM EDT 11/05/2014 4:39 AM EDT Narrative Resulting Agency Comment Spec In Lab Kimberly Mondragon MD HEMATOLOGY ORDER AYO CERNER MILLENNIUM * (ABNORMAL) Hemogram (11/05/2014 4:30 AM EDT) White Blood Cell 5.1 4.0 - 10.0 x10(3)/mc L CERNER MILLENNIUM Red Blood Cell 2.34(L) 3.93 - 5.22 x10(6)/mc L CERNER MILLENNIUM Hemoglobin 7.2(L) 11.2 - 15.7 gm/dL CERNER MILLENNIUM Hematocrit 21.2(L) 34.0 - 45.0 % CERNER MILLENNIUM Mean Cell Volume 90.6 79.0 - 94.0 fL CERNER MILLENNIUM Mean Cell Hemoglobin 30.8 26.6 - 32.2 pg CERNER MILLENNIUM Mean Cell Hemoglobin Concentration 34.0 32.0 - 36.5 gm/dL CERNER MILLENNIUM Platelet 326 145 - 370 x10(3)/mc L CERNER MILLENNIUM RDW Standard Deviation 38.5 35.0 - 46.0 fL CERNER MILLENNIUM RDW coefficient of variation 12.3 10.9 - 14.4 % CERNER MILLENNIUM Mean Platelet Volume 8.8(L) 9.0 - 12.0 fL CERNER MILLENNIUM Blood specimen (specimen) 11/05/2014 4:30 AM EDT 11/05/2014 4:39 AM EDT Narrative Resulting Agency Comment Spec In Lab Kimberly Mondragon MD HEMATOLOGY ORDER AYO Performing Organization Address City/[facility]/ZIP Co de Phone Number [facility] * Uric acid (11/05/2014 4:30 AM EDT) Uric Acid 3.7 2.5 - 6.5 mg/dL [facility] MILLENNIUM Blood specimen (specimen) 11/05/2014 4:30 AM EDT 11/05/2014 4:39 AM EDT Narrative Resulting Agency Comment Spec In Lab Kimberly Mondragon MD CHEMISTRY ORDERA BLES Performing Organization Address [facility] de Phone Number [facility] * Phosphorus (11/05/2014 4:30 AM EDT) Phosphorus 3.0 2.5 - 4.5 mg/dL [facility] MILLENNIUM Blood specimen (specimen) 11/05/2014 4:30 AM EDT 11/05/2014 4:39 AM EDT Narrative Resulting Agency Comment Spec In Lab Kimberly Mondragon MD CHEMISTRY ORDERA BLES Performing Organization Address [facility] Co de Phone Number [facility] DEWAY[facility]UM * (ABNORMAL) Comprehensive metabolic panel (non-fasting) (11/05/2014 4:30 AM EDT) Glucose 121 65 - 199 mg/dL [facility] MILLENNIUM Comment:Diabetes: >=200 mg/d L plus symptoms Blood Urea Nitrogen 22(H) 8 - 18 mg/dL CERNER MILLENNIUM Creatinine 0.92 0.70 - 1.20 mg/dL CERNER MILLENNIUM Comment: Please note that the pediatric reference intervals supplied above were not validated at [facility] Results from pediatric patients should be interpreted in conjunction to the patient's age, height and muscle mass. Sodium 140 135 - 145 mmol/L [facility] MILLENNIUM Potassium 4.4 3.5 - 5.0 mmol/L CERNER MILLENNIUM Comment: Please note: ??Patients with WBC >100,000 may have falsely elevated Potassium levels. ??For accurate Potassium quantification in these patients send serum separator tube (gold top) for subsequent determinations. ??Contact the Clinical Chemistry Laboratory if there are any questions. Chloride 104 98 - 107 mmol/L CERNER MILLENNIUM Carbon Dioxide 25 22 - 31 mmol/L CERNER MILLENNIUM Anion Gap 11 5 - 15 mmol/L CERNER MILLENNIUM Calcium 8.6 8.5 - 10.5 mg/dL CERNER MILLENNIUM Protein, Total 5.4(L) 6.1 - 8.0 gm/dL CERNER MILLENNIUM Albumin 3.5 3.2 - 5.2 gm/dL CERNER MILLENNIUM Aspartate Aminotransferase 24 0 - 30 unit/L CERNER MILLENNIUM Alanine Aminotransferase 26 0 - 30 unit/L CERNER MILLENNIUM Alkaline Phosphatase 78 40 - 104 unit/L CERNER MILLENNIUM Bilirubin, Total 0.2 0.2 - 1.3 mg/dL CERNER MILLENNIUM Bilirubin, Direct <0.1 0.0 - 0.3 mg/dL CERNER MILLENNIUM Est [...] the following links into your internet browser. [email or web address] Blood specimen (specimen) 11/05/2014 4:30 AM EDT 11/05/2014 4:39 AM EDT Narrative Resulting Agency Comment Spec In Lab Kimberly Mondragon MD CHEMISTRY ORDERA BLES [facility] Organization Address City/State/ZIP Co de Phone Number [facility] [employer] ProtectionIUM * (ABNORMAL) Differential, Manual (11/04/2014 9:15 PM EDT) Neutrophil % Manual 86 % CERNER MILLENNIUM Band % 12 % CERNER MILLENNIUM Lymphocyte Manual 2 % CE RNER MILLENNIUM Neutrophil Absolute (ANC) - Manual 3.2 1.5 - 6.3 x10(3)/mc L CERNER MILLENNIUM Band Abs 0.4 0.2 - 0.6 x10(3)/mc L CERNER MILLENNIUM Neutrophil Absolute (ANC) - Automated 3.60 1.50 - 6.30 x10(3)/mc L CERNER MILLENNIUM Lymph Absolute Manual 0.1(L) 1.0 - 3.6 x10(3)/mc L CERNER MILLENNIUM Total Cells Ct 100 CERNE R MILLENNIUM Plat estimate Normal CERNER MILLENNIUM RBC Morphology Abnormal CERNE R MILLENNIUM Macrocyte 1-5 /HPF CERNER MILLENNIUM Polychromasia Present >5/HPF CERNER MILLENNIUM Blood specimen (specimen) 11/04/2014 9:15 PM EDT 11/04/2014 9:21 PM EDT Narrative Resulting Agency Comment Spec In Lab Kimberly Mondragon MD HEMATOLOGY ORDER AYO CERNER MILLENNIUM * (ABNORMAL) Hemogram (11/04/2014 9:15 PM EDT) Pathologist [facility] White Blood Cell 3.7(L) 4.0 - 10.0 x10(3)/mc L CERNER MILLENNIUM Red Blood Cell 2.50(L) 3.93 - 5.22 x10(6)/mc L CERNER MILLENNIUM Hemoglobin 7.9(L) 11.2 - 15.7 gm/dL CERNER MILLENNIUM Hematocrit 22.9(L) 34.0 - 45.0 % CERNER MILLENNIUM Mean Cell Volume 91.6 79.0 - 94.0 fL CERNER MILLENNIUM Mean Cell Hemoglobin 31.6 26.6 - 32.2 pg CERNER MILLENNIUM Mean Cell Hemoglobin Concentration 34.5 32.0 - 36.5 gm/dL CERNER MILLENNIUM Platelet 336 145 - 370 x10(3)/mc L CERNER MILLENNIUM RDW Standard Deviation 39.0 35.0 - 46.0 fL GIBRAN GEEIUM RDW coefficient of variation 12.2 10.9 - 14.4 % CERDANIA BUCHANANENNIUM Mean Platelet Volume 8.5(L) 9.0 - 12.0 fL GIBRAN BUCHANANENNIUM Blood specimen (specimen) 11/04/2014 9:15 PM EDT 11/04/2014 9:21 PM EDT Narrative Resulting Agency Comment Spec In Lab Kimberly Mondragon MD HEMATOLOGY ORDER AYO GIBRAN GEEIUM * Uric acid (11/04/2014 9:15 PM EDT) Uric Acid 4.3 2.5 - 6.5 mg/dL [facility]IUM Blood specimen (specimen) 11/04/2014 9:15 PM EDT 11/04/2014 9:21 PM EDT Narrative Resulting Agency Comment Spec In Lab Kimberly Mondragon MD CHEMISTRY ORDERA BLES Performing Organization Address City/[facility]/ZIP Co de Phone Number [facility] GERARDIUM * Phosphorus (11/04/2014 9:15 PM EDT) Phosphorus 2.6 2.5 - 4.5 mg/dL [facility]IUM Blood specimen (specimen) 11/04/2014 9:15 PM EDT 11/04/2014 9:21 PM EDT Narrative Resulting Agency Comment Spec In Lab Kimberly Mondragon MD CHEMISTRY ORDERA BLES GIBRAN COREAS * (ABNORMAL) Magnesium (11/04/2014 9:15 PM EDT) Magnesium 0.65(L) 0.69 - 1.07 mmol/L [facility]IUM Blood specimen (specimen) 11/04/2014 9:15 PM EDT 11/04/2014 9:21 PM EDT Narrative Resulting Agency Comment Spec In Lab Kimberly Mondragon MD CHEMISTRY ORDERA BLES Performing Organization Address City/[facility]/ZIP Co de Phone Number CERNER MILLENNIUM * (ABNORMAL) Lactate Dehydrogenase (11/04/2014 9:15 PM EDT) Lactate Dehydrogenase 248(H) 110 - 220 unit/L CERNER MILLENNIUM Blood specimen (specimen) 11/04/2014 9:15 PM EDT 11/04/2014 9:21 PM EDT Narrative Resulting Agency Comment Spec In Lab Kimberly Mondragon MD CHEMISTRY ORDERA BLES Performing Organization Address [facility] de Phone Number CERNER MILLENNIUM * (ABNORMAL) Comprehensive metabolic panel (non-fasting) (11/04/2014 9:15 PM EDT) Glucose 199 65 - 199 mg/dL CERNER MILLENNIUM Comment: result rechecked-mb Diabetes: >=200 mg/dL plus symptoms Blood Urea Nitrogen 25(H) 8 - 18 mg/dL CERNER MILLENNIUM Creatinine 1.07 0.70 - 1.20 mg/dL CERNER MILLENNIUM Comment: Please note that the pediatric reference intervals supplied above were not validated [place] [facility] Results from pediatric patients should be interpreted in conjunction to the patient's age, height and muscle mass. Sodium 141 135 - 145 mmol/L CERNER MILLENNIUM Potassium 4.8 3.5 - 5.0 mmol/L CERNER MILLENNIUM Comment: [...] 8.8 8.5 - 10.5 mg/dL CERNER MILLENNIUM Comment:result rechecked-mb Protein, Total 5.8(L) 6.1 - 8.0 gm/dL CERNER MILLENNIUM Albumin 3.8 3.2 - 5.2 gm/dL CERNER MILLENNIUM Aspartate Aminotransferase 34(H) 0 - 30 unit/L CERNER MILLENNIUM Alanine Aminotransferase 30 0 - 30 unit/L CERNER MILLENNIUM Alkaline Phosphatase 92 40 - 104 unit/L CERNER MILLENNIUM Bilirubin, Total 0.2 0.2 - 1.3 mg/dL CERNER MILLENNIUM Bilirubin, Direct <0.1 0.0 - 0.3 mg/dL CERNER MILLENNIUM Est Glomerular Filtration Rate 52(L) >=60 CERNER MILLENNIUM Comment: This estimated GFR [...] the following links into your internet browser. [email or web address] Blood specimen (specimen) 11/04/2014 9:15 PM EDT 11/04/2014 9:21 PM EDT Narrative Resulting Agency Comment Spec In Lab Kimberly Mondragon MD CHEMISTRY ORDERA [facility] Organization Address City/State/ZIP Co de Phone Number GIBRAN COREAS documented in this encounter Visit Diagnoses Diagnosis Lymphoma Other malignant lymphomas, unspecified site, extranodal and solid organ sites documented in this encounter Administered Medications Inactive Administered Medications - up to 3 most recent administrations Medication Order MAR Action Action Date Dose Rate Site acetaminophen (TYLENOL) tablet 650 mg 650 mg, Oral, ONCE, 1 dose, On Tue11/04/14 at 1030, Administer prior to riTUXimab., Routine Given 11/04/2014 10:41 AM EDT 650 mg acyclovir (ZOVIRAX) tablet 400 mg 400 mg, Oral, 2 TIMES DAILY, First dose on Tue11/04/14 at 2100, Until Discontinued, Routine, Indication for (Active or Suspected): Prophylaxis Given 11/06/2014 8:46 AM EDT 400 mg Given 11/05/2014 8:31 PM EDT 400 mg Given 11/05/2014 8:08 AM EDT 400 mg CISplatin (PLATINOL) 85 mg in sodium chloride 0.9% 335 mL chemo infusion 85 mg (50 mg/m2/dose ? 1.7 m2 Treatment Plan BSA from Recorded weight), Intravenous, ONCE, 1 dose, On Tue11/04/14 at 1630, Administer over 24 Hours New Bag 11/04/2014 3:39 PM EDT 85 mg 14 mL/hr cytarabine (PF) (CYTOSAR) 1,700 mg in sodium chloride 0.9% 267 mL chemo infusion 1,700 mg (1,000 mg/m2/dose ? 1.7 m2 Treatment Plan BSA from Recorded weight), Intravenous, EVERY 12 HOURS, 2 doses, First dose on Tue11/05/14 at 1630, Last dose on Tue11/06/14 at 0430, Administer over 3 Hours, Evaluate patient for cerebellar toxicity prior to each dose of Cytarabine. If noted, hold dose and contact physician. Place 2 drops of Prednisolone 1% in each eye every 6 hours beginning prior to the first dose of cytarabine and continuing for 48 hours after the last dose of cytarabine. New Bag 11/06/2014 5:07 AM EDT 1,700 mg 89 mL/ hr New Bag 11/05/2014 4:44 PM EDT 1,700 mg 89 mL/hr dexamethasone (DECADRON) 40 mg in sodium chloride 0.9% 60 mL 40 mg, Intravenous, EVERY 24 HOURS, 4 doses, First dose on Tue11/04/14 at 1030, Last dose on Tue11/07/14 at 0900, Administer over 30 Minutes, Schedule dexamethasone pre-riTUXimab on day 1. Given 11/05/2014 11:01 AM EDT 40 mg 120 mL/hr Given 11/04/2014 11:17 AM EDT 40 mg 120 mL/hr dexamethasone (DECADRON) tablet 40 mg 40 mg, Oral, ONCE, 1 dose, On Tue11/06/14 at 0900, Routine Given 11/06/2014 10:28 AM EDT 40 mg diphenhydrAMINE (BENADRYL) injection 50 mg 50 mg, Intravenous, ONCE, 1 dose, On Tue11/04/14 at 1030, Administer prior to riTUXimab., Routine Given 11/04/2014 10:41 AM EDT 50 mg enoxaparin (LOVENOX) injection 40 mg 40 mg, Subcutaneous, DAILY, First dose on Tue11/04/14 at 2000, Until Discontinued, Routine Given 11/06/2014 8:45 AM EDT 40 mg Given 11/05/2014 8:11 AM EDT 40 mg Given 11/04/2014 8:34 PM EDT 40 mg escitalopram oxalate (LEXAPRO) tablet 10 mg 10 mg, Oral, DAILY, First dose on Tue11/05/14 at 0900, Until Discontinued, Routine Given 11/06/2014 8:47 AM EDT 10 mg Given 11/05/2014 8:08 AM EDT 10 mg famotidine (PEPCID) tablet 20 mg 20 mg, Oral, 2 TIMES DAILY, First dose on Tue11/04/14 at 2100, Until Discontinued, Routine Given 11/06/2014 8:46 AM EDT 20 mg Given 11/05/2014 8:31 PM EDT 20 mg Given 11/05/2014 8:08 AM EDT 20 mg filgrastim (NEUPOGEN) injection 480 mcg 480 mcg, Subcutaneous, DAILY, First dose on Tue11/06/14 at 0900, Until Discontinued, Светлана Boone will arrange for GCSF post chemo with plans for stem cell collection, Routine Given 11/06/2014 8:47 AM EDT 480 mcg fosaprepitant (EMEND) 150 mg in sodium chloride 0.9% 155 mL infusion 150 mg, Intravenous, ONCE, 1 dose, On Tue11/04/14 at 1530, Administer over 30 Minutes, Administer prior to Cisplatin on day 1. New Bag 11/04/2014 2:33 PM EDT 150 mg 310 mL/hr furosemide (LASIX) injection 20 mg 20 mg, Intravenous, 2 TIMES DAILY PRN, Starting on Tue11/04/14 at 1907, Until Tue11/06/14 at 1621, wt gain of 2kg over baseline Given 11/06/2014 8:48 AM EDT 20 mg heparin, porcine 100 unit/mL flush 500 Units 500 Units, Intravenous, ONCE PRN, Starting on Tue11/04/14 at 1907, Until Tue11/06/14 at 1621, Line Care, Refer to Intravenous (IV) Procedure: Accessing Implanted Vascular Access Devices (654) procedure and/or Intravenous (IV) Job Aid: Adult Flushing & Catheter Care (4596) job aid for additional information regarding guidelines and administration., Routine Given 11/06/2014 11:28 AM EDT 500 Units LORazepam (ATIVAN) injection 0.5 mg 0.5 mg, Intravenous, EVERY 4 HOURS PRN, Starting on Tue11/04/14 at 1340, Until Tue11/05/14 at 1339, Anxiety, Nausea, Vomiting, If multiple antiemetics are ordered, use in the following sequence: Ondansetron>Prochlorperazine or Promethazine>Lorazepam>Metoclopr amide, Routine Given 11/04/2014 1:48 PM EDT 0.5 mg LORazepam (ATIVAN) tablet 0.5 mg 0.5 mg, Oral, EVERY 8 HOURS PRN, Starting on Tue11/04/14 at 1656, Until Tue11/06/14 at 1621, For anxiety and nausea. Patient does not have to take it--please offer., Routine Given 11/06/2014 8:46 AM EDT 0.5 mg Given 11/06/2014 12:29 AM EDT 0.5 mg Given 11/05/2014 2:41 PM EDT 0.5 mg magnesium oxide (MAG-OX) tablet 400 mg 400 mg, Oral, 2 TIMES DAILY, First dose on Tue11/06/14 at 0900, Until Discontinued, Routine Given 11/06/2014 11:20 AM EDT 400 mg Given 11/06/2014 9:41 AM EDT 400 mg melatonin tablet 3 mg 3 mg, Oral, NIGHTLY, First dose on Tue11/04/14 at 2100, Until Discontinued, Routine Given 11/04/2014 8:34 PM EDT 3 mg melatonin tablet 6 mg 6 mg, Oral, NIGHTLY, First dose (after last modification) on Tue11/05/14 at 2100, Until Discontinued, Routine Given 11/05/2014 8:31 PM EDT 6 mg ondansetron (ZOFRAN) tablet 16 mg 16 mg, Oral, EVERY 12 HOURS, 4 doses, First dose on Tue11/04/14 at 1300, Last dose on Tue11/06/14 at 0100, Administer prior to CISplatin on day 1., Routine Given 11/06/2014 12:29 AM EDT 16 mg Given 11/05/2014 12:38 PM EDT 16 mg Given 11/04/2014 11:59 PM EDT 16 mg prednisoLONE acetate (PRED FORTE) 1 % ophthalmic suspension 2 drop 2 drop, Both Eyes, EVERY 6 HOURS, First dose on Tue11/05/14 at 1600, Until Discontinued, Instill in each eye beginning prior to the first dose of cytarabine and continuing for 48 hours after last dose of cytarabine. Please discontinue eye drops 48 hours after the last dose of cytarabine., Routine Given 11/06/2014 9:42 AM EDT 2 drop s Given 11/06/2014 4:21 AM EDT 2 drops Given 11/05/2014 9:41 PM EDT 2 drops prochlorperazine (COMPAZINE) injection 10 mg 10 mg, Intravenous, EVERY 6 HOURS PRN, Starting on Tue11/04/14 at 1907, Until Tue11/06/14 at 1621, Nausea, Vomiting, If multiple antiemetics are ordered, use in the following sequence: Ondansetron>Prochlorperazine or Promethazine>Lorazepam>Metoclopramide, Routine Given 11/06/2014 4:33 AM EDT 10 mg Given 11/05/2014 8:30 PM EDT 10 mg riTUXimab (RITUXAN) 600 mg in sodium chloride 0.9% 300 mL infusion 600 mg, Intravenous, ONCE, 1 dose, On Tue11/04/14 at 1130, Administer Per Protocol, Round medication dose to the nearest 100 mg: Dose has been rounded to the nearest 100 mg, Patient is a candidate for rapid infusion riTUXimab? Yes, Comments (complete for other reason(s) or to provide additional information): round up New Bag 11/04/2014 11:54 A M EDT 600 mg sodium chloride 0.9 % flush 5 mL 5 mL, Intravenous, 2 TIMES DAILY, First dose on Tue11/04/14 at 2100, Until Discontinued, Routine Given 11/06/2014 8:48 AM EDT 5 mLs Given 11/05/2014 8:31 PM EDT 5 mLs Given 11/05/2014 8:00 AM EDT 5 mLs sodium chloride 0.9% infusion 150 mL/hr, Intravenous, CONTINUOUS, Starting on Tue11/04/14 at 1030, Until Tue11/04/14 at 1646, Administer 6 hours prior to CISplatin and continue for at least 48 hours. New Bag 11/04/2014 9:35 AM EDT 150 mL/hr 150 mL/hr sodium chloride 0.9% infusion 125 mL/hr, Intravenous, CONTINUOUS, Starting on Tue11/04/14 at 1715, Until Tue11/06/14 at 0831, Administer 6 hours prior to CISplatin and continue for at least 48 hours. New Bag 11/05/2014 3:50 PM EDT 125 mL/hr 125 mL/hr New Bag 11/05/2014 7:53 AM EDT 125 mL/hr 125 mL/hr New Bag 11/04/2014 11:59 PM EDT 125 mL/hr 125 mL/hr documented in this encounter Active and Recently Administered Medications Times are shown in EDT. Scheduled Medication Order 11/04/2014 11/05/2014 11/06/2014 acetaminophen (TYLENOL) tablet 650 mg (COMPLETED) 650 mg, Oral, ONCE, 1 dose, On Tue11/04/14 at 1030, Administer prior to riTUXimab., Routine 1041 (Given - Provider: Alyse Lima, RN) acyclovir (ZOVIRAX) tablet 400 mg (CANCELED) 400 mg, Oral, 2 TIMES DAILY, First dose on Tue11/04/14 at 2100, Until Discontinued, Routine, Indication for (Active or Suspected): Prophylaxis 2033 (Given - Provider: Blank Perez RN) 0808 (Given - Provider: Violeta Andre RN)2030 (Given - Provider: Jeanine Yoder RN) 0846 (Given - Provider: Myrna Barriga RN) CISplatin (PLATINOL) 85 mg in sodium chloride 0.9% 335 mL chemo infusion (COMPLETED) 85 mg (50 mg/m2/dose ? 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 1.7 m2 Treatment Plan BSA from Recorded weight), Intravenous, EVERY 12 HOURS, 2 doses, First dose on Tue11/05/14 at 1630, Last dose on Tue11/06/14 at 0430, Administer over 3 Hours, Evaluate patient for cerebellar toxicity prior to each dose of Cytarabine. If noted, hold dose and contact physician. Place 2 drops of Prednisolone 1% in each eye every 6 hours beginning prior to the first dose of cytarabine and continuing for 48 hours after the last dose of cytarabine. 1644 (New Bag - Provider: Dania Viveros, RN)1957 (Stopped - Provider: Aurora Hanna, LINDA) 0507 (New Bag - Provider: Jeanine Yoder RN)0824 (Stopped - Provider: Rajani Pendleton RN) dexamethasone (DECADRON) 40 mg in sodium chloride 0.9% 60 mL (CANCELED) 40 mg, Intravenous, EVERY 24 HOURS, 4 doses, First dose on Tue11/04/14 at 1030, Last dose on Tue11/07/14 at 0900, Administer over 30 Minutes, Schedule dexamethasone pre-riTUXimab on day 1. 1117 (Given - Provider: Alyse Lima RN)1147 (IV Stop - Provider: Alyse Lima RN) 1101 (Given - Provider: Violeta Andre RN) dexamethasone (DECADRON) tablet 40 mg (COMPLETED) 40 mg, Oral, ONCE, 1 dose, On Tue11/06/14 at 0900, Routine 1028 (Given - Provider: Myrna Barriga RN) diphenhydrAMINE (BENADRYL) injection 50 mg (COMPLETED) 50 mg, Intravenous, ONCE, 1 dose, On Tue11/04/14 at 1030, Administer prior to riTUXimab., Routine 1041 (Given - Provider: Alyse Lima RN) enoxaparin (LOVENOX) injection 40 mg (CANCELED) 40 mg, Subcutaneous, DAILY, First dose on Tue11/04/14 at 2000, Until Discontinued, Routine 2034 (Given - Provider: Blank Perez RN) 0811 (Given - Provider: Violeta Andre RN) 0845 (Given - Provider: Myrna Barriga RN) escitalopram oxalate (LEXAPRO) tablet 10 mg (CANCELED) 10 mg, Oral, DAILY, First dose on Tue11/05/14 at 0900, Until Discontinued, Routine 08 (Given - Provider: Violeta Andre RN) 08 (Given - Provider: Myrna Barriga RN) famotidine (PEPCID) tablet 20 mg (CANCELED) 20 mg, Oral, 2 TIMES DAILY, First dose on Tue11/04/14 at 2100, Until Discontinued, Routine 2033 (Given - Provider: Blank Perez, LINDA) 08 (Given - Provider: Violeta Andre RN)2030 (Given - Provider: Jeanine Yoder RN) 0846 (Given - Provider: Myrna Barriga RN) filgrastim (NEUPOGEN) injection 480 mcg (CANCELED) 480 mcg, Subcutaneous, DAILY, First dose on Tue11/06/14 at 0900, Until Discontinued, Светлана Mely will arrange for GCSF post chemo with plans for stem cell collection, Routine 846 (Given - Provider: Myrna Barriga RN) fosaprepitant (EMEND) 150 mg in sodium chloride 0.9% 155 mL infusion (COMPLETED) 150 mg, Intravenous, ONCE, 1 dose, On Tue11/04/14 at 1530, Administer over 30 Minutes, Administer prior to Cisplatin on day 1. 1433 (New Bag - Provider: Neyda Suresh RN)1505 (Stopped - Provider: Alyse Lima RN) magnesium oxide (MAG-OX) tablet 400 mg (CANCELED) 400 mg, Oral, 2 TIMES DAILY, First dose on Tue11/06/14 at 0900, Until Discontinued, Routine 09 (Given - Provider: Rajani Pendleton RN)112 (Given - Provider: Myrna Barriga RN) melatonin tablet 3 mg (CANCELED) 3 mg, Oral, NIGHTLY, First dose on Tue11/04/14 at 2100, Until Discontinued, Routine 2033 (Given - Provider: Blank Perez, LINDA) melatonin tablet 6 mg 6 mg, Oral, NIGHTLY, First dose (after last modification) on 9/22/15 at 2100, Until Discontinued, Routine 2030 (Given - Provider: Jeanine Yoder, LINDA) ondansetron (ZOFRAN) tablet 16 mg (COMPLETED) 16 mg, Oral, EVERY 12 HOURS, 4 doses, First dose on Tue11/04/14 at 1300, Last dose on Tue11/06/14 at 0100, Administer prior to CISplatin on day 1., Routine 1347 (Given - Provider: Alyse Lima RN)2359 (Given - Provider: Blank Perez, RN - Comment: per pt request) 010 (Canceled Entry - Provider: Blank Perez RN - Reason: See comment - Comment: move to new time per pt request)1238 (Given - Provider: Violeta Andre RN) 0029 (Given - Provider: Jeanine Yoder RN) prednisoLONE acetate (PRED FORTE) 1 % ophthalmic suspension 2 drop 2 drop, Both Eyes, EVERY 6 HOURS, First dose on Tue11/05/14 at 1600, Until Discontinued, Instill in each eye beginning prior to the first dose of cytarabine and continuing for 48 hours after last dose of cytarabine. Please discontinue eye drops 48 hours after the last dose of cytarabine., Routine 1625 (Given - Provider: Violeta Andre RN)2141 (Given - Provider: Jeanine Yoder, LINDA) 0421 (Given - Provider: Jeanine Yoder, LINDA)0942 (Given - Provider: Rajani Pendleton RN) riTUXimab (RITUXAN) 600 mg in sodium chloride 0.9% 300 mL infusion (COMPLETED) 600 mg, Intravenous, ONCE, 1 dose, On Tue11/04/14 at 1130, Administer Per Protocol, Round medication dose to the nearest 100 mg: Dose has been rounded to the nearest 100 mg, Patient is a candidate for rapid infusion riTUXimab? Yes, Comments (complete for other reason(s) or to provide additional information): round up 1154 (New Bag - Provider: Alyse Lima RN - Comment: rapid rate)1325 (Stopped - Provider: Alyse Lmia RN) sodium chloride 0.9 % flush 5 mL (CANCELED) 5 mL, Intravenous, 2 TIMES DAILY, First dose on Tue11/04/14 at 2100, Until Discontinued, Routine 2100 (Not Given - Provider: Blank Perez RN - Reason: See comment - Comment: infusing) 0800 (Given - Provider: Dania Viveros, RN)203 (Given - Provider: Jeanine Yoder RN) 0848 (Given - Provider: Myrna Barriga, LINDA) Continuous Medication Order 11/04/2014 11/05/2014 11/06/2014 sodium chloride 0.9% infusion (CANCELED) 150 mL/hr, Intravenous, CONTINUOUS, Starting on Tue11/04/14 at 1030, Until Tue11/04/14 at 1646, Administer 6 hours prior to CISplatin and continue for at least 48 hours. 0935 (New Bag - Provider: Alyse Lima RN) sodium chloride 0.9% infusion (CANCELED) 125 mL/hr, Intravenous, CONTINUOUS, Starting on Tue11/04/14 at 1715, Until Tue11/06/14 at 0831, Administer 6 hours prior to CISplatin and continue for at least 48 hours. 1658 (Continued Bag - Provider: Smiley Dang RN)[phone] (New Bag - Provider: Blank Perez, LINDA) 0753 (New Bag - Provider: Dania Viveros, RN)1550 (New Bag - Provider: Violeta Andre RN) PRN Medication Order 11/04/2014 11/05/2014 11/06/2014 furosemide (LASIX) injection 20 mg (CANCELED) 20 mg, Intravenous, 2 TIMES DAILY PRN, Starting on Tue11/04/14 at 1907, Until Tue11/06/14 at 1621, wt gain of 2kg over baseline 0848 (Given - Provider: Myrna Barriga RN) heparin, porcine 100 unit/mL flush 500 Units (CANCELED) 500 Units, Intravenous, ONCE PRN, Starting on Tue11/04/14 at 1907, Until Tue11/06/14 at 1621, Line Care, Refer to Intravenous (IV) Procedure: Accessing Implanted Vascular Access Devices (654) procedure and/or Intravenous (IV) Job Aid: Adult Flushing & Catheter Care (0870) job aid for additional information regarding guidelines and administration., Routine 1128 (Given - Provider: Myrna Barriga RN) LORazepam (ATIVAN) injection 0.5 mg () 0.5 mg, Intravenous, EVERY 4 HOURS PRN, Starting on Tue11/04/14 at 1340, Until Tue11/05/14 at 1339, Anxiety, Nausea, Vomiting, If multiple antiemetics are ordered, use in the following sequence: Ondansetron>Prochlorpe razine or Promethazine>Lorazepam >Metoclopramide, Routine 1348 (Given - Provider: Alyse Lima RN) LORazepam (ATIVAN) tablet 0.5 mg (CANCELED) 0.5 mg, Oral, EVERY 8 HOURS PRN, Starting on Tue11/04/14 at 1656, Until Tue11/06/14 at 1621, For anxiety and nausea. Patient does not have to take it--please offer., Routine 0132 (Given - Provider: Blank Perez RN)1441 (Given - Provider: Violeta Andre RN) 0029 (Given - Provider: Jeanine Yoder RN)0846 (Given - Provider: Myrna Barriga RN) prochlorperazine (COMPAZINE) injection 10 mg (CANCELED) 10 mg, Intravenous, EVERY 6 HOURS PRN, Starting on Tue11/04/14 at 1907, Until Tue11/06/14 at 1621, Nausea, Vomiting, If multiple antiemetics are ordered, use in the following sequence: Ondansetron>Prochlo rperazine or Promethazine>Lorazepam >Metoclopramide, Routine 2030 (Given - Provider: Jeanine Yoder RN) 0433 (Given - Provider: Jeanine Yoder RN) documented in this encounter Care Teams Recycling Assistant Relationship Specialty Start Date End Date Maine Dunn PA PCP - General 04/08/14 02/13/15 documented as of this encounter
--- OUTSIDE RECORDS SUMMARY | 2023-10-28 00:46 | XMS_ITS | Encounter Summary ---
Author Organization [facility] Address [facility] [address] Care Team Providers Care Staff Antisubmarine Officer Name Role Phone Maine Dunn Primary Care Provider [phone] Reason for Visit * Reason Comments Follow-up Encounter Details Date Type Department Care Team (Late st Contact Info) Description 11/25/2014 3:00 PM EDT Office Visit Hematology [place] [phone] Kimberly Mondragon MD [facility] HEMATOLOGY [place] [address] Светлана Boone RN Lymphoma Social History Tobacco [...] Sign Reading Time Taken Comments Blood Pressure 166/71 11/25/2014 2:35 PM EDT Pulse 117 11/25/2014 2:35 PM EDT Temperature 36.7 ??C (98.1 ??F) 11/25/2014 2:35 PM ED T Respiratory Rate 16 11/25/2014 2:35 PM EDT Oxygen Saturation 100% 11/25/2014 2:35 PM EDT Inhaled Oxygen Concentration - - Weight 65.7 kg (144 lb 13.5 oz) 11/25/2014 2:35 PM EDT Height 158.7 cm (5' 2.48) 11/25/2014 2:35 PM ED T Body Mass Index 26.09 11/25/2014 2:35 PM EDT documented in this encounter Progress Notes * Kimberly Mondragon MD - 11/25/2014 2:53 PM [place] [address] FOLLOW-UP PATIENT EVALUATION PROBLEM LIST: Patient Active [...] was not informative according to the [employer] business analyst sales operations, but the strong BCL2 expression in the absence of MUM1 suggests a germinal center origin via the [employer] business analyst sales operations. Lymphoma TB discussion 10/01/14 Recommendations for salvage chemotherapy and autologous stem cell transplant. C#1 RDHAP 10/09/14 With stem cell collection C#2 RDHAP 11/04/14 PET scan pending INTERIM HISTORY OF PRESENT ILLNESS: It was my pleasure to see Myriam Vivas back in clinic today. Myriam Vivas is a 64 y.o. 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 She has completed 2 cycles of RDHAP. Most recently she's complained of aching in her arms and legs. It is difficult for her to walk. It seems like it's more of the girdle muscles. Hard time holding her arms up over her head. Certainly, cisplatin and cytarabine can both cause neurotoxicity, but these symptoms clearly are unusual and more extreme than normally Seen. claritin does not help. No response with aleve, ibuprofen, claritin, and tylenol all w/o relief. Getting worse in the last week. Not sure if it is neulasta but seem like it is too long. ROS Energy level:stable Pain: Pain in groin and shoulders Appetite:good Fevers/chills/sweats:No Bruising/bleeding/melena:No Recent infections:No HEENT: negative Nausea/vomiting/diarrhea/constipation:No SOB/HAUSER/chest pain:No Change in adenopathy or other masses:No Unexpected weight loss or gain:No Skin rashes or petechiae:No Musculoskeletal complaints: see above Extremities: Negative upper and lower bilaterally Neurologic symptoms:No Mood: Normal Sleep: Difficulty sleeping MEDS: Outpatient Prescriptions Marked as Taking for the 11/25/14 encounter (Office Visit) with Kimberly Mondragon MD Medication Sig Dispense Refill ??? magnesium oxide [...] Take 1 tablet by mouth daily. ??? [place]-3 Fatty Acids-Vitamin E (FISH OIL) 1,000 mg Capsule Take by mouth. ??? Calcium 500 mg Tablet Take by mouth. ??? Cholecalciferol, Vitamin D3, (VITAMIN D-3) 2,000 unit Capsule Take 1,000 Units by mouth. ??? escitalopram (LEXAPRO) 10 mg tablet Allergies: Allergies Allergen Reactions ??? Tegaderm [Transparent Dressings] Other (See Comments) Unsure if actual allergy, please try [id number] Skin tears/rawness INTERIM SOCIAL HISTORY Changes in job, home situation, tobacco or alcohol use: see HPI PHYSICAL EXAM BP 166/71 mmHg Pulse 117 Temp(Src) 36.7 ??C (98.1 ??F) (Temporal) Resp 16 Ht 158.7 cm (5' 2.48) Wt 65.7 kg (144 lb 13.5 oz) BMI 26.09 kg/m2 SpO2 100% Body surface area is 1.70 meters squared. GENERAL: Myriam Vivas appears well [...] chest wall tenderness. LINE: nontender, no erythema accessed LABORATORY STUDIES Recent Results (from the past 72 hour(s)) Comprehensive metabolic panel (non-fasting) Result Value Ref Range Glucose Lvl 100 65 - 199 mg/dL BUN 26 (H) 8 - 18 mg/dL Creatinine 1.08 0.70 - 1.20 mg/dL Sodium 141 135 - 145 mmol/L Potassium 4.9 3.5 - 5.0 mmol/L Chloride 101 98 - 107 mmol/L CO2 28 22 - 31 mmol/L Anion Gap 12 5 - 15 mmol/L Calcium 9.9 8.5 - 10.5 mg/dL Total Protein 6.7 6.1 - 8.0 gm/dL Albumin 4.4 3.2 - 5.2 gm/dL AST 20 0 - 30 unit/L ALT 16 0 - 30 unit/L Alk Phos 92 40 - 104 unit/L Total Bilirubin 0.2 0.2 - 1.3 mg/dL Bili, Direct 0.1 0.0 - 0.3 mg/dL Estimated GFR 51 (L) >=60 Lactate Dehydrogenase Result Value Ref Range LDH 257 (H) 110 - 220 unit/L Hemogram Result Value Ref Range WBC 7.5 4.0 - 10.0 x10(3)/mcL RBC 2.82 (L) 3.93 - 5.22 x10(6)/mcL Hemoglobin 8.9 (L) 11.2 - 15.7 gm/dL Hematocrit 25.8 (L) 34.0 - 45.0 % MCV 91.5 79.0 - 94.0 fL MCH 31.6 26.6 - 32.2 pg MCHC 34.5 32.0 - 36.5 gm/dL Platelets 175 145 - 370 x10(3)/mcL RDWSD 44.7 35.0 - 46.0 fL RDWCV 14.2 10.9 - 14.4 % MPV 9.0 9.0 - 12.0 fL Differential, Automated Result Value Ref Range Neutrophils % 71.4 % Neutr Abs (ANC) 5.36 1.50 - 6.30 x10(3)/mcL Lymphocytes % 9.6 % Lymphocytes Abs 0.7 (L) 1.0 - 3.6 x10(3)/mcL Monocytes % 15.6 % Monocyte Abs 1.2 (H) 0.2 - 1.0 x10(3)/mcL Eosinophils % 1.9 % Eosinophils Abs 0.1 0.0 - 0.5 x10(3)/mcL Basophils % 0.4 % Basophils Abs 0.0 0.0 - 0.2 x10(3)/mcL Immature Gran % 1.10 % [place] Gran Abs 0.08 (H) 0.00 - 0.05 x10(3)/mcL ABO/Rh Typing Result Value Ref Range ABORh Type B Pos Antibody screen Result Value Ref Range Ab Screen Interp Negative Expires at 2359 on: 11/28/2014 POCT Glucose Result Value Ref Range POC Glucose 101 65 - 199 mg/dL RADIOLOGY STUDIES REVIEWED: EXAMINATION: PET/CT STANDARD (SKULL BASE TO MID-THIGH) CLINICAL HISTORY: restage lymphoma TECHNIQUE: Procedure: Following IV injection of 85-qpyxmg-9-deoxyglucose (FDG) a standard uptake of approximately 60 minutes, a noncontrast CT scan followed by a PET scan were acquired from the base of the skull to mid thighs. The noncontrast CT was used for anatomic localization and photon attenuation correction of the PET scan Blood glucose level: 101 (mg/dL) FDG dose: 9.2 mCi COMPARISON: None FINDINGS: HEAD/NECK: Normal activity in all soft tissue regions of the neck and visualized lower head. CHEST: Normal activity in all soft tissue regions. Previously seen hypermetabolic adenopathy in the right paratracheal region has decreased in size and has resolved metabolically to a level that is indistinguishable from mediastinal reference background. Stable multiple CT visualized borderline enlarged non-FDG avid lymph nodes in the left axilla. No other significant adenopathy. No significant pulmonary nodules are seen on CT. ABDOMEN/PELVIS: Normal activity in all soft tissue regions. No significant adenopathy is seen on CT. SKELETON/EXTREMITIES: No significant osseous abnormalities. IMPRESSION IMPRESSION: No active lymphoma. ASSESSMENT/PLAN: Was my pleasure to see Myriam and her boyfriend Karyn, back in clinic today. She's completed 2 cycles of RDHAP and returns today for restaging. Lymphoma - I was pleased to tell her that her PET was negative.! We will proceed to transplant after she has time to recover. Weakness and pain in muscles of legs and arms - she had a similar pain in just the right arm in thepast that resolved with time. The most logical explanation would be neurotoxicity from the chemotherapy although I have to say he has never seen it with either cisplatin or cytarabine. Both have mildmuscle and Neuro toxicity, but usually not to this degree. I wonder if it is from her levofloxacin - she is going to stop it. ID - stop fluconazole and levoflox. Continue acyclovir until transplant. Heme - nicely engrafted no more labs needed until next apt. Transplant talk on Mon or 12/09 or 12/10. Plan transplant week of 12/16/14! total time:40 time in counsellin Copy SOPHY FUNES (General) documented in this encounter Plan of Treatment Upcoming Encounters Date Type Department Care Team (Late st Contact Info) Description 12/07/2023 12:00 PM EDT Office Visit Dermatology at [facility] [address] [place] [address] Juan F Chappell MD [facility] DR RANDEE JOSEPH[place] [address] documented as of this encounter Visit Diagnoses Diagnosis Lymphoma Other malignant lymphomas, unspecified site, extranodal and solid organ sites documented in this encounter Care Teams Staff Antisubmarine Officer Relationship Specialty Start Date End Date Maine Dunn PA PCP - General 04/08/14 02/13/15 documented as of this encounter
--- OUTSIDE RECORDS SUMMARY | 2023-10-28 00:46 | XMS_ITS | Encounter Summary ---
Author Organization [facility] Address [facility] [place] [address] Care Team Providers Care Grooming Assistant Name Role Phone Maine Dunn Primary Care Provider [phone] Reason for Visit * Reason Onset Date Comments Labs Only 11/18/2014 Lab Tracking Encounter Details Date Type Department Care Team (Late st Contact Info) Description 11/18/2014 Telephone Hematology/Oncology at [address] [address] Faustina Soto, RN Labs Only (Lab Tracking) Social History [...] Telephone Encounter - Faustina Soto RN - 11/18/2014 1:36 PM EDT LAB TRACKING LUIS FERNANDO VIVAS DIAGNOSIS: DLBCL LABS ORDERED: Cbc/d, cmp/mon. and thurs. MEDICATIONS: Cycle # 1 - R-DHAP 10/09/14 with stem cell collection Cycle # 2 - R-DHAP 11/04/2014. Neulasta on 11/07 Assessment/Plan: Telephone call to Linda. Sunga states she is still having leg pain, and now it is in bilateral upper extremities. She states it is bone pain. She knows she is not supposed to take ibuprofen and will try tylenol for discomfort. DATE WBC HGB/HCT PLTS ANC Others MEDS/PLAN LOCATION 11/18/14 15.20 8.5/25.0 84K 11.10 Bun/Creat 18/1.4 Labs on Mon/Thurs as previously planned [facility] 11/14 3.24 8.8/25.7 24k 1.95 Bun/Creat 26/1.4 Transfuse 1 unit plt at [facility] 11/15 with post transfusion plt check 30 minutes following transfusion. [facility] 11/11 9 9.2/26.9 68 7.38 Bun/cr 35/1.5 [facility] 11/07 32.42 8.5/24.5 277 30.80 Bun/Creat - 30/1.3 Neulasta 6mg Hydration 11/07 & 11/08 [facility] documented in this encounter Plan of Treatment Upcoming Encounters Date Type Department Care Team (Late st Contact Info) Description 12/07/2023 12:00 PM EDT Office Visit Dermatology at [place] [address] [place] [address] Juan F Chappell MD [facility] DR RANDEE [place] [address] documented as of this encounter Visit Diagnoses Not on filedocumented in this encounter Care Teams Grooming Assistant Relationship Specialty Start Date End Date Maine Dunn PA PCP - General 04/08/14 02/13/15 documented as of this encounter
--- OUTSIDE RECORDS SUMMARY | 2023-10-28 00:46 | XMS_ITS | Encounter Summary ---
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 Examination of participant in clinical trial Procedures PET/CT STANDARD (Skull base to Mid-thigh) Kimberly Velez MD [facility] HEMATOLOGY [place] [address] [place] [address] Referral ID Status Reason Start Date Expiration Date Visits Re quested Visits Authorized [id number] Closed 11/25/2014 01/24/2015 1 1 Reason for Visit * Reason Comments Follow-up Encounter Details Date Type Department Care Team (Late st Contact Info) Description 11/04/2014 8:00 AM EDT Follow-Up Hematology [place] [address] Kimberly Velez MD [facility] HEMATOLOGY [place] [address] Lymphoma; DLBCL (diffuse large B cell lymphoma); [...] Sign Reading Time Taken Comments Blood Pressure 116/66 11/04/2014 8:03 AM EDT Pulse 88 11/04/2014 8:03 AM EDT Temperature 36.3 ??C (97.3 ??F) 11/04/2014 8:03 AM ED T Respiratory Rate 18 11/04/2014 8:03 AM EDT Oxygen Saturation 100% 11/04/2014 8:03 AM EDT Inhaled Oxygen Concentration - - Weight 65.3 kg (144 lb) 11/04/2014 8:03 AM EDT Height 158.5 cm (5' 2.4) 11/04/2014 8:03 AM EDT Body Mass Index 26 11/04/2014 8:03 AM EDT documented in this encounter Progress Notes * Kimberly Velez MD - 11/04/2014 8:12 [place] [address] FOLLOW-UP PATIENT EVALUATION PROBLEM LIST: Patient Active [...] was not informative according to the Bassem job estimator, but the strong BCL2 expression in the absence of MUM1 suggests a germinal center origin via the Muris job estimator. Lymphoma TB discussion 10/01/14 Recommendations for salvage [...] collection off C#1 R-DHAP and returns for C#2.Tolerated relatively well. Definitely harder forher. She is still tired. Does something every day but sleeps a lot. She got one unit of plt in her chente. No PRBC needed. ROS Energy level: low Pain: headache for last 2 weeks - now gone Appetite:good Fevers/chills/sweats:No Bruising/bleeding/melena:No Recent infections:No HEENT: negative Nausea/vomiting/diarrhea/constipation:No SOB/HAUSER/chest pain:No Change in adenopathy or other masses:No Unexpected weight loss or gain:No Skin rashes or petechiae:No Musculoskeletal complaints:aches in arms X 2 days Extremities: Negative upper and lower bilaterally Neurologic symptoms:No Mood: Normal Sleep: Difficulty sleeping MEDS: Outpatient Prescriptions Marked as Taking for the 11/04/14 encounter (Follow-Up) with Kimberly Velez MD Medication Sig Dispense Refill ??? prochlorperazine (COMPAZINE) 10 mg Tablet Take 1 tablet by mouth every 6 hours as needed for Nausea. 30 tablet 1 ??? ondansetron (ZOFRAN, HYDROCHLORIDE,) 4 mg Tablet Take 1 tablet by mouth every 8 hours as needed for Nausea. 20 tablet 0 ??? acyclovir (ZOVIRAX) 400 mg Tablet Take 1 tablet by mouth 2 times daily. 60 tablet 3 ??? LORazepam (ATIVAN) 0.5 mg Tablet Take 1 tablet by mouth every 6 hours as needed for Anxiety. 30tablet 0 ??? LORazepam (ATIVAN) 0.5 mg Tablet Take 1 tablet by mouth every 6 hours as needed for Anxiety. Patient takes one tablet in the morning, and two tablets at night 30 tablet 0 ??? docusate sodium (COLACE) 100 mg Capsule Take 100 mg by mouth 2 times daily. ??? senna (SENOKOT) 8.6 mg Tablet Take 1 tablet by mouth daily. ??? [place]-3 Fatty Acids-Vitamin E (FISH OIL) 1,000 mg Capsule Take by mouth. ??? Cholecalciferol, Vitamin D3, (VITAMIN D-3) 2,000 unit Capsule Take 1,000 Units by mouth. ??? escitalopram (LEXAPRO) 10 mg tablet Allergies: Allergies Allergen Reactions ??? Tegaderm [Transparent Dressings] Other (See Comments) Unsure if actual allergy, please try [id number] Skin tears/rawness INTERIM SOCIAL HISTORY Changes in job, home situation, tobacco or alcohol use: see HPI PHYSICAL EXAM BP 116/66 mmHg Pulse 88 Temp(Src) 36.3 ??C (97.3 ??F) (Temporal) Resp 18 Ht 158.5 cm (5' 2.4) Wt 65.318 kg (144 lb) BMI 26.00 kg/m2 SpO2 100% Body surface area is [...] tenderness. LINE: nontender, no erythema LABORATORY STUDIES Recent Results (from the past 72 hour(s)) Comprehensive metabolic panel (non-fasting) Result Value Ref Range Glucose Lvl 76 65 - 199 mg/dL BUN 25 (H) 8 - 18 mg/dL Creatinine 1.10 0.70 - 1.20 mg/dL Sodium 139 135 - 145 mmol/L Potassium 4.6 3.5 - 5.0 mmol/L Chloride 96 (L) 98 - 107 mmol/L CO2 29 22 - 31 mmol/L Anion Gap 14 5 - 15 mmol/L Calcium 10.3 8.5 - 10.5 mg/dL Total Protein 7.0 6.1 - 8.0 gm/dL Albumin 4.4 3.2 - 5.2 gm/dL AST 27 0 - 30 unit/L ALT 29 0 - 30 unit/L Alk Phos 93 40 - 104 unit/L Total Bilirubin 0.3 0.2 - 1.3 mg/dL Bili, Direct 0.1 0.0 - 0.3 mg/dL Estimated GFR 50 (L) >=60 Lactate Dehydrogenase Result Value Ref Range LDH 285 (H) 110 - 220 unit/L CD34 Peripheral Blood Result Value Ref Range WBC 4.8 4.0 - 10.0 x10(3)/mcL Lymphocytes % 10.4 % Lymphocytes Abs 0.5 (L) 1.0 - 3.6 x10(3)/mcL Hemogram Result Value Ref Range WBC 4.8 4.0 - 10.0 x10(3)/mcL RBC 3.11 (L) 3.93 - 5.22 x10(6)/mcL Hemoglobin 9.7 (L) 11.2 - 15.7 gm/dL Hematocrit 28.5 (L) 34.0 - 45.0 % MCV 91.6 79.0 - 94.0 fL MCH 31.2 26.6 - 32.2 pg MCHC 34.0 32.0 - 36.5 gm/dL Platelets 470 (H) 145 - 370 x10(3)/mcL RDWSD 39.2 35.0 - 46.0 fL RDWCV 12.1 10.9 - 14.4 % MPV 8.9 (L) 9.0 - 12.0 fL Differential, Automated Result Value Ref Range Neutrophils % 51.4 % Neutr Abs (ANC) 2.48 1.50 - 6.30 x10(3)/mcL Lymphocytes % 10.4 % Lymphocytes Abs 0.5 (L) 1.0 - 3.6 x10(3)/mcL Monocytes % 34.9 % Monocyte Abs 1.7 (H) 0.2 - 1.0 x10(3)/mcL Eosinophils % 0.6 % Eosinophils Abs 0.0 0.0 - 0.5 x10(3)/mcL Basophils % 2.3 % Basophils Abs 0.1 0.0 - 0.2 x10(3)/mcL Immature Gran % 0.40 % [place] Gran Abs 0.02 0.00 - 0.05 x10(3)/mcL Nucleated Red Blood Cells Result Value Ref Range nRBC % Auto 0.0 % nRBC Abs Auto 0.000 0.000 - 0.012 x10(3)/mcL RADIOLOGY STUDIES REVIEWED: none ASSESSMENT/PLAN: We will proceed with cycle #2 of R-DHAP today. She will need Neulasta at [facility] on of this week. She will need lab draws on Mondays and at [facility] with transfusions for platelets less than 20,000 and hemoglobin less than 8. His lab draws will be done during the weeks of 11/11 and 11/18. Sarah Altamirano at [facility] will coordinate these. Home on [...] today. This to avoid further renal insufficiency. I will arrange for IV fluids to be given at [facility] on and Tuesday of this week. Orders are written. I have requested appointment times for the patient. See appointments in ED H prior todischarge. total time: time in counselling: Copy SOPHY FUNES (General) documented in this encounter Miscellaneous Notes * Addendum Note - Kimberly Velez MD - 11/04/2014 12:11 PM EDTAddended by: KIMBERLY VELEZ on: 11/04/2014 12:11 PM Modules accepted: Level of Service documented in this encounter Plan of Treatment Upcoming Encounters Date Type Department Care Team (Late st Contact Info) Description 12/07/2023 12:00 PM EDT Office Visit Dermatology at [facility] [address] [place] [address] Juan F Chappell MD [facility] DR RANDEE [place] [address] documented as of this encounter Procedures Procedure Name Priority Date/Time Associated Diagnosis Comments NUCLEATED RED BLOOD CELLS STAT 11/04/2014 7:15 AM EDT Lymphoma 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 Examination of participant in clinical trial HEMOGRAM STAT 11/04/2014 7:15 AM EDT Lymphoma 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 Examination of participant in clinical trial DIFFERENTIAL, AUTOMATED STAT 11/04/2014 7:15 AM EDT Lymphoma 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 Examination of participant in clinical trial CD34 PERIPHERAL BLOOD STAT 11/04/2014 7:15 AM EDT 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 Lymphoma Examination of participant in clinical trial ABO/RH TYPING STAT 11/04/2014 7:15 AM EDT Lymphoma 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 Examination of participant in clinical trial CBC (WITH DIFF) STAT 11/04/2014 7:15 AM EDT Lymphoma 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 Examination of participant in clinical trial ANTIBODY SCREEN STAT 11/04/2014 7:15 AM EDT Lymphoma 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 Examination of participant in clinical trial TYPE AND SCREEN ([facility]/MARTHA) STAT 11/04/2014 7:15 AM EDT Lymphoma 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 Examination of participant in clinical trial LACTATE DEHYDROGENASE STAT 11/04/2014 7:15 AM EDT Lymphoma 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 Thank you for referring this patient to [facility]. Narrative 11/25/2014 3:44 PM EDT EXAMINATION: PET/CT STANDARD (SKULL BASE TO MID-THIGH) CLINICAL HISTORY: restage lymphoma TECHNIQUE: Procedure: Following IV injection of 40-wtvfot-9-deoxyglucose (FDG) a standard uptake of approximately 60 [...] on CT. SKELETON/EXTREMITIES: No significant osseous abnormalities. ? Procedure Note Rudolph Cardenas MD - 11/25/2014 EXAMINATION: PET/CT STANDARD (SKULL BASE TO MID-THIGH) CLINICAL HISTORY: restage lymphoma TECHNIQUE: Procedure: Following IV injection of 06-kmdfty-7-deoxyglucose(FDG) a standard uptake of approximately 60 minutes, a noncontrast CT scanfollowed by a PET scan were acquired from the base of the skull to mid thighs. Thenoncontrast CT was used for anatomic localization and photon attenuation correction ofthe PET scan Blood glucose level: 101 (mg/dL) FDG dose: 9.2 mCi COMPARISON: None FINDINGS: HEAD/NECK: Normal activity in all soft tissue regions of the neck and visualizedlower head. CHEST: Normal activity in all soft tissue regions. Previously seenhypermetabolic adenopathy in the right paratracheal region has decreased in size andhas resolved metabolically to a level that is indistinguishable frommediastinal reference background. Stable multiple CT visualized borderline enlargednon-FDG avid lymph nodes in the left axilla. No other significant adenopathy. No significant pulmonary nodules are seen on CT. ABDOMEN/PELVIS: Normal activity in all soft tissue regions. No significant adenopathy isseen on CT. SKELETON/EXTREMITIES: No significant osseous abnormalities. IMPRESSION IMPRESSION: No active lymphoma. Thank you for referring this patient to [facility]. Kimberly Velez MD IMG PET ORDERABL ES * Nucleated Red Blood Cells (11/04/2014 7:15 AM EDT) Pathologist [facility] NRBC% auto 0.0 % [facility] [employer] NRBC Absolute 0.000 0.000 - 0.012 x10(3)/mcL [facility] [employer] Blood specimen (specimen) 11/04/2014 7:15 AM EDT 11/04/2014 7:25 AM EDT Narrative Resulting Agency Comment Spec In Lab Kimberly Velez MD HEMATOLOGY ORDER AYO [facility] * Antibody screen (11/04/2014 7:15 AM EDT) Ab Screen Interp Negative [facility] [employer] Expires at [id number] on: 11/07/2014 [facility] [employer] Blood specimen (specimen) 11/04/2014 7:15 AM EDT 11/04/2014 7:24 AM EDT Narrative Resulting Agency Comment Spec In Lab Kimberly Velez MD BLOOD BANK LAB O RDERABLES CERNER MILLENNIUM * ABO/Rh Typing (11/04/2014 7:15 AM EDT) ABORH Type B Pos [facility]ERNER MILLENNIUM Blood specimen (specimen) 11/04/2014 7:15 AM EDT 11/04/2014 7:24 AM EDT Narrative Resulting Agency Comment Spec In Lab Kimberly Velez MD BLOOD BANK LAB O RDERABLES Performing Organization Address City/[facility]/ZIP Co de Phone Number CERNER MILLENNIUM * (ABNORMAL) Differential, Automated (11/04/2014 7:15 AM EDT) Neutrophil % 51.4 % CERNER MILLENNIUM Neutrophil Absolute 2.48 1.50 - 6.30 x10(3)/mc L [facility]ERNER MILLENNIUM Lymph % 10.4 % [facility]ERNER MILLENNIUM Lymphocytes Abs 0.5(L) 1.0 - 3.6 x10(3)/mc L [facility]ERNER MILLENNIUM Monocyte % 34.9 % CERNER MILLENNIUM Monocyte Abs 1.7(H) 0.2 - 1.0 x10(3)/mc L [facility]ERNER MILLENNIUM Eos % 0.6 % CERNER MILLENNIUM Eosinophils Abs 0.0 0.0 - 0.5 x10(3)/mc L CERNER MILLENNIUM Basophil % 2.3 % CERNER MILLENNIUM Baso Absolute 0.1 0.0 - 0.2 x10(3)/mc L [facility]ERNER MILLENNIUM Immature Gran % 0.40 % CERN ER MILLENNIUM Comment: Immature granulocytes(IG's)percentage and absolute count will include metamyelocytes, myelocytes, and promyelocytes. Blood smears from CBCs yielding IG's will be scanned manually for concordance. If this scan disagrees with the automated IG or if promyelocytes are noted, a manual differential will be performed. Immature Gran Absolute 0.02 0.00 - 0.05 x10(3)/mc L CERNER MILLENNIUM Blood specimen (specimen) 11/04/2014 7:15 AM EDT 11/04/2014 7:25 AM EDT Narrative Resulting Agency Comment Spec In Lab Kimberly Velez MD HEMATOLOGY ORDER AYO Performing Organization Address [facility] Co de Phone Number CERNER MILLENNIUM * (ABNORMAL) Hemogram (11/04/2014 7:15 AM EDT) White Blood Cell 4.8 4.0 - 10.0 x10(3)/mc L CERNER MILLENNIUM Red Blood Cell 3.11(L) 3.93 - 5.22 x10(6)/mc L CERNER MILLENNIUM Hemoglobin 9.7(L) 11.2 - 15.7 gm/dL [facility]ERNER MILLENNIUM Hematocrit 28.5(L) 34.0 - 45.0 % CERNER MILLENNIUM Mean Cell Volume 91.6 79.0 - 94.0 fL CERNER MILLENNIUM Mean Cell Hemoglobin 31.2 26.6 - 32.2 pg CERNER MILLENNIUM Mean Cell Hemoglobin Concentration 34.0 32.0 - 36.5 gm/dL CERNER MILLENNIUM Platelet 470(H) 145 - 370 x10(3)/mc L CERNER MILLENNIUM RDW Standard Deviation 39.2 35.0 - 46.0 fL CERNER MILLENNIUM RDW coefficient of variation 12.1 10.9 - 14.4 % CERNER MILLENNIUM Mean Platelet Volume 8.9(L) 9.0 - 12.0 fL CERNER MILLENNIUM Blood specimen (specimen) 11/04/2014 7:15 AM EDT 11/04/2014 7:25 AM EDT Narrative Resulting Agency Comment Spec In Lab Kimberly Velez MD HEMATOLOGY ORDER AYO CERNER MILLENNIUM * (ABNORMAL) CD34 Peripheral Blood (11/04/2014 7:15 AM EDT) CD34 PB ABS 5 /mcl CERNER MILLENNIUM Comment: CD34 Cells as Percent of CD45 Cells: 0.12%. This test was developed and it? s performance characteristics determined by the Clinical Flow Cytometry Laboratory at [facility].?? It has not been cleared or approved by the U.S. Food and Drug Administration.?? The FDA has determined that such clearance or approval is not necessary. This test is used for clinical purposes and should not be regarded as investigational or for research.?? This laboratory is certified under the Clinical Laboratory Improvement Act of 1988 (CLIA) as qualified to perform high complexity clinical laboratory testing.?? White Blood Cell 4.8 4.0 - 10.0 x10(3)/mc L CERNER MILLENNIUM Lymph % 10.4 % CERNER MILLENNIUM Lymphocytes Abs 0.5(L) 1.0 - 3.6 x10(3)/mc L CERNER MILLENNIUM Blood specimen (specimen) 11/04/2014 7:15 AM EDT 11/04/2014 7:25 AM EDT Narrative Resulting Agency Comment Spec In Lab Kimberly Velez MD HEMATOLOGY ORDER AYO Performing Organization Address [facility]/ZIP Co de Phone Number CERNER MILLENNIUM * (ABNORMAL) Lactate Dehydrogenase (11/04/2014 7:15 AM EDT) Lactate Dehydrogenase 285(H) 110 - 220 unit/L CERNER MILLENNIUM Blood specimen (specimen) 11/04/2014 7:15 AM EDT 11/04/2014 7:25 AM EDT Narrative Resulting Agency Comment Spec In Lab Kimberly Velez MD CHEMISTRY ORDERA BLES Performing Organization Address [facility]/ZIP Co de Phone Number CERNER MILLENNIUM * (ABNORMAL) Comprehensive metabolic panel (non-fasting) (11/04/2014 7:15 AM EDT) Glucose 76 65 - 199 mg/dL CERNER MILLENNIUM Comment:Diabetes: >=200 mg/d L plus symptoms Blood Urea Nitrogen 25(H) 8 - 18 mg/dL CERNER MILLENNIUM Creatinine 1.10 0.70 - 1.20 mg/dL CERNER MILLENNIUM Comment: Please note that the pediatric reference intervals supplied above were not validated at [facility]. Results from pediatric patients should be interpreted in conjunction to the patient's age, height and muscle mass. Sodium 139 135 - 145 mmol/L CERNER MILLENNIUM Potassium 4.6 3.5 - 5.0 mmol/L CERNER MILLENNIUM Comment: [...] - 31 mmol/L CERNER MILLENNIUM Anion Gap 14 5 - 15 mmol/L CERNER MILLENNIUM Calcium 10.3 8.5 - 10.5 mg/dL CERNER MILLENNIUM Protein, Total 7.0 6.1 - 8.0 gm/dL CERNER MILLENNIUM Albumin 4.4 3.2 - 5.2 gm/dL CERNER MILLENNIUM Aspartate Aminotransferase 27 0 - 30 unit/L CERNER MILLENNIUM Alanine Aminotransferase 29 0 - 30 unit/L CERNER MILLENNIUM Alkaline Phosphatase 93 40 - 104 unit/L CERNER MILLENNIUM Bilirubin, Total 0.3 0.2 - 1.3 mg/dL CERNER MILLENNIUM Bilirubin, Direct 0.1 0.0 - 0.3 mg/dL CERNER MILLENNIUM Est Glomerular Filtration Rate 50(L) >=60 CERNER MILLENNIUM Comment: This estimated GFR [...] following links into your internet browser. [email or web address] Blood specimen (specimen) 11/04/2014 7:15 AM EDT 11/04/2014 7:25 AM EDT Narrative Resulting Agency Comment Spec In Lab Kimberly Velez MD CHEMISTRY ORDERA BLES [facility] documented in this encounter Visit Diagnoses Diagnosis Lymphoma Other malignant lymphomas, unspecified site, extranodal and solid organ sites DLBCL (diffuse large B cell lymphoma) Other malignant lymphomas, unspecified site, extranodal and solid organ sites Stem cell donor Examination of participant in clinical trial Lymphoma Other malignant lymphomas, unspecified site, extranodal and solid organ sites DLBCL (diffuse large B cell lymphoma) Other malignant lymphomas, unspecified site, extranodal and solid organ sites Stem cell donor Examination of participant in clinical trial documented in this encounter Care Teams Monument Mason Relationship Specialty Start Date End Date Maine Dunn PA PCP - General 04/08/14 02/13/15 documented as of this encounter
--- OUTSIDE RECORDS SUMMARY | 2023-10-28 00:46 | XMS_ITS | Encounter Summary ---
Author Organization [facility] Address [facility] [place] [address] Care Team Providers Care Cna Pct Name Role Phone Maine Dunn Primary Care Provider [phone] Encounter Details Date Type Department Care Team (Late st Contact Info) Description 11/25/2014 Telephone Hematology Oncology at [address] [address] Sarah Altamirano RN Social History [...] Telephone Encounter - Sarah Altamirano RN - 11/25/2014 12:40 PM EDT LAB TRACKING LUIS FERNANDO SANGEETHA DIAGNOSIS: DLBCL LABS ORDERED: Cbc/d, cmp/mon. and thurs. MEDICATIONS: Cycle # 1 - R-DHAP 10/09/14 with stem cell collection Cycle # 2 - R-DHAP 11/04/2014. Neulasta on 11/07 Assessment/Plan: Patient had Labs/PET/Appt with Dr. Mondragon today at [facility]. See note for assessment/plan. Going to transplant. No further labs needed at this time. DATE WBC HGB/HCT PLTS ANC Others MEDS/PLAN LOCATION 11/25 7.5 8.9/25.8 175k 5.36 No transfusions needed. Appt with Dr. Mondragon today. No further labs needed until s/p transplant. [facility] 11/21/14 15.81 8.8/26.2 103k 11.23 BUN/Creat 20/1.4 No transfusions necessary Labs, PET scan and appt with Giancarlo on 11/25. [facility] 11/18/14 15.20 8.5/25.0 84K 11.10 Bun/Creat 18/1.4 Labs on Mon/Thurs as previously planned [facility] 11/14 3.24 8.8/25.7 24k 1.95 Bun/Creat 26/1.4 Transfuse 1 unit plt at [facility] 11/15 with post transfusion plt check 30 minutes following transfusion. [facility] 11/11 9 9.2/26.9 68 7.38 Bun/cr 35/1.[address] [facility] 11/07 32.42 8.5/24.5 277 30.80 Bun/Creat - 30/1.3 Neulasta 6mg Hydration 11/07 & 11/08 [facility] documented in this encounter Plan of Treatment Upcoming Encounters Date Type Department Care Team (Late st Contact Info) Description 12/07/2023 12:00 PM EDT Office Visit Dermatology at [facility] [place] [address] [place] [address] Juan F Chappell MD [facility] DR [place] [address] documented as of this encounter Visit Diagnoses Not on filedocumented in this encounter Care Teams Cna Pct Relationship Specialty Start Date End Date Maine Dunn PA PCP - General 04/08/14 02/13/15 documented as of this encounter
--- OUTSIDE RECORDS SUMMARY | 2023-10-28 00:46 | XMS_ITS | Encounter Summary ---
Author Organization [facility] Address [facility] [place] [address] Care Team Providers Care Truck Loader Overhead Crane Name Role Phone Maine Dunn Primary Care Provider [phone] Reason for Visit * Reason Comments IV Medication Hydration, Lasix Injections Neulasta Encounter Details Date Type Department Care Team (Late st Contact Info) Description 11/07/2014 1:00 PM EDT Infusion Hematology Oncology at [address] [address] CLINIC, DR MARINA HEM/ONC Lymphoma Discharge Disposition: Home Social History Tobacco [...] Sign Reading Time Taken Comments Blood Pressure 144/76 11/07/2014 12:25 PM EDT Pulse 73 11/07/2014 12:25 PM EDT Temperature 36.6 ??C (97.9 ??F) 11/07/2014 12:25 PM E DT Respiratory Rate 20 11/07/2014 12:25 PM EDT Oxygen Saturation 99% 11/07/2014 12:25 PM EDT Inhaled Oxygen Concentration - - Weight 69 kg (152 lb 1.6 oz) 11/07/2014 12:25 PM EDT Height 159 cm (5' 2.6) 11/07/2014 12:25 PM EDT copied Body Mass Index 27.29 11/07/2014 12:25 PM EDT documented in this encounter Progress Notes * Светлана Biswas RN - 11/07/2014 12:57 PM EDT INFUSION THERAPY ADMINISTRATION NOTES DIAGNOSIS: Lymphoma REASON FOR VISIT: Hydration, Lasix & Neulasta SUBJECTIVE Myriam offers no complaints. OBJECTIVE IV ACCESS: right infraclavicular Mediport with good blood return. REACTIONS (DESCRIPTION, TIME, INTERVENTION AND EFFECTIVENESS) none ASSESSMENT Myriam was awake, alert and tolerated treatment well. PLAN Return to clinic tomorrow for second day of hydration. documented in this encounter Plan of Treatment Upcoming Encounters Date Type Department Care Team (Late st Contact Info) Description 12/07/2023 12:00 PM EDT Office Visit Dermatology at [address] [address] Juan F Chappell MD [facility] DR RANDEE [place] [address] documented as of this encounter Procedures Procedure Name Priority Date/Time Associated Diagnosis Comments CHEMOTHERAPY SCAN 11/07/2014 12:00 AM EDT documented in this encounter Results * SCAN DOC: CHEMOTHERAPY (11/07/2014 12:00 AM EDT) Scanning Provider MEDIA MGR SCAN EXT O RDR/RSLT documented in this encounter Visit Diagnoses Diagnosis Lymphoma Other malignant lymphomas, unspecified site, extranodal and solid organ sites documented in this encounter Administered Medications Inactive Administered Medications - up to 3 most recent administrations Medication Order MAR Action Action Date Dose Rate Site furosemide (LASIX) injection 20 mg 20 mg, Intravenous, ONCE PRN, 1 dose, Starting on Cece 11/07/14 at 0000, Until Cece 11/07/14 at 1241, for weight over 67 kg. Given 11/07/2014 12:41 PM EDT 20 mg pegfilgrastim (NEULASTA) injection 6 mg 6 mg, Subcutaneous, ONCE, 1 dose, On Cece 11/07/14 at 1300, Routine Given 11/07/2014 1:48 PM EDT 6 mg Right Lower Quadrant sodium chloride 0.9% infusion 500 mL/hr, Intravenous, CONTINUOUS, Starting on Cece 11/07/14 at 1300, Until Cece 11/07/14 at 1631 New Bag 11/07/2014 12:40 PM EDT 500 mL/hr 500 mL/hr documented in this encounter Care Teams Truck Loader Overhead Crane Relationship Specialty Start Date End Date Maine Dunn PA PCP - General 04/08/14 02/13/15 documented as of this encounter
--- OUTSIDE RECORDS SUMMARY | 2023-10-28 00:46 | XMS_ITS | Encounter Summary ---
Author Organization [facility] Address [facility] [place] [address] Care Team Providers Care Company Manager Name Role Phone Maine Dunn Primary Care Provider Reason for Visit * Reason Comments IV Medication Hydration/Lasix Encounter Details Date Type Department Care Team (Late st Contact Info) Description 11/08/2014 11:00 AM EDT Infusion Hematology Oncology at [address] [address] CLINIC, DR MARINA HEM/ONC Isael Laurent MD [facility] [place] [address] Lymphoma Discharge Disposition: Home Social History Tobacco [...] Sign Reading Time Taken Comments Blood Pressure 129/75 11/08/2014 10:46 AM EDT Pulse 77 11/08/2014 10:46 AM EDT Temperature 36.5 ??C (97.7 ??F) 11/08/2014 1 0:46 AM EDT Respiratory Rate 20 11/08/2014 10:4 6 AM EDT Oxygen Saturation 100% 11/08/2014 10: 46 AM EDT Inhaled Oxygen Concentration - - Weight 67.9 kg (149 lb 12.8 oz) 015 10:46 AM EDT Height 159 cm (5' 2.6) 11/08/2014 10:4 6 AM EDT Body Mass Index 26.88 11/08/2014 10:46 AM EDT documented in this encounter Progress Notes * Faustina Soto RN - 11/08/2014 2:15 PM EDT INFUSION THERAPY ADMINISTRATION NOTES DIAGNOSIS: Lymphoma REASON FOR VISIT: Hydration SUBJECTIVE Myriam offers no complaints. OBJECTIVE IV ACCESS: Mediport REACTIONS (DESCRIPTION, TIME, INTERVENTION AND EFFECTIVENESS) none ASSESSMENT Myriam was awake, alert and tolerated treatment well. PLAN Return to clinic per routine. documented in this encounter Plan of Treatment Upcoming Encounters Date Type Department Care Team (Late st Contact Info) Description 12/07/2023 12:00 PM EDT Office Visit Dermatology at [address] [address] Juan F Chappell MD [facility] DR RANDEE [place] [address] documented as of this encounter Visit Diagnoses Diagnosis Lymphoma Other malignant lymphomas, unspecified site, extranodal and solid organ sites documented in this encounter Administered Medications Inactive Administered Medications - up to 3 most recent administrations Medication Order MAR Action Action Date Dose Rate Site furosemide (LASIX) injection 20 mg 20 mg, Intravenous, ONCE PRN, 1 dose, Starting on Tue11/08/14 at 1223, Until Tue11/08/14 at 1250, for weight over 67 kg. Given 11/08/2014 12:50 PM EDT 20 mg sodium chloride 0.9% infusion 500 mL/hr, Intravenous, CONTINUOUS, Starting on Tue11/08/14 at 1245, Until Tue11/08/14 at 1619 New Bag 11/08/2014 11:35 AM EDT 999 mL/hr 999 mL/hr documented in this encounter Care Teams Company Manager Relationship Specialty Start Date End Date Maine Dunn PA PCP - General 04/08/14 02/13/15 documented as of this encounter
--- OUTSIDE RECORDS SUMMARY | 2023-10-28 00:46 | XMS_ITS | Encounter Summary ---
Author Organization [facility] Address [facility] [place] [address] Care Team Providers Care Pelletising Extruder Operator Name Role Phone Maine Dunn Primary Care Provider Reason for Visit * Reason Onset Date Comments Questions 11/20/2014 Encounter Details Date Type Department Care Team (Late st Contact Info) Description 11/20/2014 Telephone Hematology [place] [phone] Arminda Hernández, RN Questions Social History Tobacco Use Types [...] encounter Miscellaneous Notes * Telephone Encounter - Arminda Hernández RN - 11/20/2014 2:33 PM EDT RN received eDH message from clinical administrative secretary with request to call patient. She has the followingquestions: is it safe for her to use a hot tub? Can she have a couple glasses of standard white wine? Finally, her legs and arms are still bothering her (pain), she wants to know if there's anything she can do to alleviate the pain. Spoke to Dr Mondragon regarding above questions. She provided the following instruction. It is Ok touse hot tub if PORT has not been accessed more that 3 days. It is OK to drink wine, but no more that 2 glasses in a day. She states that she should not consume alcohol every day. If leg pain is related to Neulasta, she instructed her to administer Claritin one day prior to injection and daily for several days after the injection. If pain is not r/t Neulasta, OK to administer tylenol prn pain as long as she does not have a fever. Spoke to patient to review above MD instruction. She states that she had spoke with RN at [facility] above questions were answered. Discussed contacting clinic office with further questions or concerns. documented in this encounter Plan of Treatment Upcoming Encounters Date Type Department Care Team (Late st Contact Info) Description 12/07/2023 12:00 PM EDT Office Visit Dermatology at [facility] [address] [place] [address] Juan F Chappell MD [facility] DR RANDEE [place] [address] documented as of this encounter Visit Diagnoses Not on filedocumented in this encounter Care Teams Pelletising Extruder Operator Relationship Specialty Start Date End Date Maine Dunn PA PCP - General 04/08/14 02/13/15 documented as of this encounter
--- OUTSIDE RECORDS SUMMARY | 2023-10-28 00:46 | XMS_ITS | Encounter Summary ---
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 Examination of participant in clinical trial Procedures PET/CT STANDARD (Skull base to Mid-thigh) Kimberly Mondragon MD [facility] DR [place] [address] [place] [address] Referral ID Status Reason Start Date Expiration Date Visits Re quested Visits Authorized [id number] Closed 11/25/2014 01/24/2015 1 1 Reason for Visit * MRI/CAT Scan (Routine) - Closed Specialty Diagnoses / Procedures Referred By Perry cabrera Referred To Contact Radiology Diagnoses Lymphoma 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 Examination of participant in clinical trial Procedures PET/CT STANDARD (Skull base to Mid-thigh) Kimberly Mondragon MD [facility] [place] [address] [place] [address] Referral ID Status Reason Start Date Expiration Date Visits Re quested Visits Authorized [id number] Closed 11/25/2014 01/24/2015 1 1 Encounter Details Date Type Department Care Team (Late st Contact Info) Description 11/25/2014 11:53 AM EDT - 11/25/2014 11:59 PM EDT Hospital Encounter [place] [address] Kimberly Mondragon MD [facility] DR [place] [address] Lymphoma; DLBCL (diffuse large B cell lymphoma); [...] 12 11/06/2014 01/29/2015 fluconazole (DIFLUCAN) 200 mg TabletIndications:Anthony grDLBCL (diffuse large B cell lymphoma),Stem cell donor,Examination of participant in clinical trial Take 1 tablet by mouth daily for 30 days. 30 tablet 3 11/04/2014 12/04/2014 ondansetron (ZOFRAN) 8 mg TabletIndications:Anthony grDLBCL (diffuse large B cell lymphoma),Stem cell donor,Examination [...] Take 1 tablet by mouth daily. 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 Thank you for referring this patient to [facility]. Narrative 11/25/2014 3:44 PM EDT EXAMINATION: PET/CT STANDARD (SKULL BASE TO MID-THIGH) CLINICAL HISTORY: restage lymphoma TECHNIQUE: Procedure: Following IV injection of 76-kknppu-2-deoxyglucose (FDG) a standard uptake of approximately 60 [...] lymphoma TECHNIQUE: Procedure: Following IV injection of 50-vuxoza-1-deoxyglucose(FDG) a standard uptake of approximately 60 minutes, [...] Thank you for referring this patient to [facility]. Kimberly Mondragon MD IMG PET ORDERABL ES * POCT Glucose (11/25/2014 12:05 PM EDT) Glucose, POC 101 65 - 199 mg/dL CERNER MILLENNIUM Comment: Supplemental ranges: <140 mg/dL before meals <180 mg/dL all other times of the day Blood specimen (specimen) 11/25/2014 12:05 PM EDT 11/25/2014 12:05 PM EDT Kimberly Mondragon MD POINT OF CARE TE ST ORDERABLES [facility] documented in this encounter Visit Diagnoses Diagnosis Lymphoma Other malignant lymphomas, unspecified site, extranodal and solid organ sites DLBCL (diffuse large B cell lymphoma) Other malignant lymphomas, unspecified site, extranodal and solid organ sites Stem cell donor Examination of participant in clinical trial documented in this encounter Care Teams Parboiler Relationship Specialty Start Date End Date Maine Dunn PA PCP - General 04/08/14 02/13/15 documented as of this encounter
--- OUTSIDE RECORDS SUMMARY | 2023-10-28 00:46 | XMS_ITS | Encounter Summary ---
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 Examination of participant in clinical trial Procedures PET/CT STANDARD (Skull base to Mid-thigh) Kimberly Mondragon MD [facility] DR HEMATOLOG[place] [address] [place] [address] Referral ID Status Reason Start Date Expiration Date Visits Re quested Visits Authorized [id number] Closed 11/25/2014 01/24/2015 1 1 Encounter Details Date Type Department Care Team (Late st Contact Info) Description 11/25/2014 11:53 AM EDT - 11/25/2014 11:59 PM EDT Hospital Encounter [place] [address] Kimberly Mondragon MD [facility] DR HEMATOLOG[place] [address] Social History Tobacco Use Types Packs/Day Years [...] 11/06/2014 01/29/2015 fluconazole (DIFLUCAN) 200 mg TabletIndications:Lympho ma,DLBCL (diffuse large B cell [...] Take 1 tablet by mouth daily. 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 Examination of participant in clinical trial documented in this encounter Visit Diagnoses Not on filedocumented in this encounter Administered Medications Inactive Administered Medications - up to 3 most recent administrations Medication Order MAR Action Action Date Dose Rate Site fludeoxyglucose (F-18) FDG injection 9.2 mCi 9.2 mCi, Intravenous, ONCE PRN, 1 dose, Starting on Tue11/25/14 at 1221, Until Tue11/25/14 at 1214, Per Protocol, R-HAND IV., Routine Given 11/25/2014 12:14 PM EDT 9.2 mCi documented in this encounter Care Teams Steel Erector Apprentice Relationship Specialty Start Date End Date Maine Dunn PA PCP - General 04/08/14 02/13/15 documented as of this encounter
--- OUTSIDE RECORDS SUMMARY | 2023-10-28 00:46 | XMS_ITS | Encounter Summary ---
Author Organization [facility] Address [facility] [place] [address] Care Team Providers Care Bellhop Service Captain Name Role Phone Maine Dunn Primary Care Provider [phone] Encounter Details Date Type Department Care Team (Late st Contact Info) Description 11/07/2014 Telephone Hematology Oncology at [address] [address] Sarah Altamirano RN Social History [...] Telephone Encounter - Sarah Altamirano RN - 11/07/2014 1:48 PM EDT LAB TRACKING DIAGNOSIS: DLBCL LABS ORDERED: Cbc/d, cmp MEDICATIONS: Cycle # 1 - R-DHAP 10/09/14 with stem cell collection Cycle # 2 - R-DHAP 11/04/2014. Neulasta on 11/07 Assessment/Plan: Patient into the clinic today for neulasta and hydration. No complaints. DATE WBC HGB/HCT PLTS ANC Others MEDS/PLAN LOCATION 11/07 32.42 8.5/24.5 277 30.80 Bun/Creat - 30/1.3 Neulasta 6mg Hydration 11/07 & 11/08 [facility] documented in this encounter Plan of Treatment Upcoming Encounters Date Type Department Care Team (Late st Contact Info) Description 12/07/2023 12:00 PM EDT Office Visit Dermatology at [facility] [address] [place] [address] Juan F Chappell MD [facility] DR [place] [address] documented as of this encounter Visit Diagnoses Not on filedocumented in this encounter Care Teams Bellhop Service Captain Relationship Specialty Start Date End Date Maine Dunn PA PCP - General 04/08/14 02/13/15 documented as of this encounter
--- OUTSIDE RECORDS SUMMARY | 2023-10-28 00:47 | XMS_ITS | Encounter Summary ---
Author Organization [facility] [place] [address] Care Team Providers Care Vertica Architect Name Role Phone Maine Dunn Primary Care Provider [phone] Reason for Visit * Reason Onset Date Comments Medical Care Coordination 10/17/2014 Encounter Details Date Type Department Care Team (Late st Contact Info) Description 10/17/2014 Telephone Hematology [place] [phone] Светлана Boone RN Medical Care Coordination Social History Tobacco [...] Telephone Encounter - Светлана Boone RN - 10/17/2014 5:06 PM EDT BMT Coordinator: Call to Patient Myriam is a 64 y/o with DLBCL who is day +9 s/p R-DHAP Mobilization with neupogen. I called for routine monitoring check and to review labs from yesterday. Neupogen: Dose is 780 mcg SQ started on 10/14/14. I confirmed this with patient and she is taking injections daily by self injection. She had just completed taking her dose for today. Subjective: Overall, I am doing well. My daughter is here and we are having some good laughs. Objective: Nausea: None, using ativan every 8 hours with Zofran Vomiting:only once Diarrhea: None Constipation: she had a small one but doesn't feel like she hasn't eaten enough, using a stool softner. Reminded her Zofran can cause constipation. Abdomen feels soft and she doesn't have any abdominal distention. She will take a dose of Miralax in the morning. Drinking avg 4 cups of fluid. i encouraged her to try to drink more. She remembered she had popsicles and ice cream in the fridge and will try that this evening. Fever/chills: None Energy/Fatigue: she is tired but is moving around more today. SOB/Cough: None Urinary Problems: None Teaching: Reviewed plan,encouraged PO intake, reviewed neutropenic and bleeding precautions. A: tolerated the chemo okay. Recent Results (from the past 72 hour(s)) CBC (with Diff) Result Value Ref Range WBC 10.24 (External Lab) Hemoglobin 11.9 (EXTERNAL/ABN) 12.0 - 16.0 Hematocrit 32.7 (EXTERNAL/ABN) 36.0 - 46.0 Platelets 69 (EXTERNAL/ABN) P: Labs to be drawn tomorrow, expect her to be neutropenic and planning stem cell collection on 10/23. Myriam knows to call if she develop a fever, chills or shakes. Continue Neupogen injections. She is aware she will need a temp line for the stem cell collection. She reminded me she has an allergy to Tagaderm, her skin peels. documented in this encounter Plan of Treatment Upcoming Encounters Date Type Department Care Team (Late st Contact Info) Description 12/07/2023 12:00 PM EDT [facility] [address] [place] [address] Juan F Chappell MD [facility] DR RANDEE [place] [address] documented as of this encounter Visit Diagnoses Not on filedocumented in this encounter Care Teams Vertica Architect Relationship Specialty Start Date End Date Maine Dunn PA PCP - General 04/08/14 02/13/15 documented as of this encounter
--- OUTSIDE RECORDS SUMMARY | 2023-10-28 00:47 | XMS_ITS | Encounter Summary ---
Author Organization [facility] Address [facility] [place] [address] Care Team Providers Care Sheet Metal [employer] Supervisor Name Role Phone Maine Dunn Primary Care Provider [phone] Encounter Details Date Type Department Care Team (Late st Contact Info) Description 10/02/2014 2:30 PM EDT Follow-Up Hematology/Oncology at [address] [id number] Kimberly Mondragon MD [facility] [address] [place] [address] Lymphoma Discharge Disposition: Home Social History Tobacco Use Types Packs/Day Years Used Date Smoking Tobacco: Never Alcohol Use Standard Drinks/Week Comments Yes 2 (1 standard drink = 0.6 oz pur e alcohol) Sex and Gender Information Value Date Recorded Sex Assigned at Not on file Gender Identity Not on file Sexual Orientation Not on file documented as of this encounter Last Filed Vital Signs Vital Sign Reading Time Taken Comments Blood Pressure 106/61 10/02/2014 2:28 PM EDT Pulse 83 10/02/2014 2:28 PM EDT Temperature 36.8 ??C (98.2 ??F) 10/02/2014 2:28 PM ED T Respiratory Rate 16 10/02/2014 2:28 PM EDT Oxygen Saturation 98% 10/02/2014 2:28 PM EDT Inhaled Oxygen Concentration - - Weight 66.2 kg (146 lb) 10/02/2014 2:28 PM EDT Height 159.1 cm (5' 2.64) 10/02/2014 2:28 PM ED T Body Mass Index 26.16 10/02/2014 2:28 PM EDT documented in this encounter Progress Notes * [place] Mondragon MD - 10/02/2014 9:17 PM EDT Patient Active Problem List Diagnosis ??? 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 Lymphoma TB discussion 10/01/14 Recommendations for salvage chemotherapy and autologous stem cell transplant. ??? Depression with anxiety It was my pleasure to see Myriam and her friend in clinic today. I called Myriam last night with the recommendations from lymphoma tumor board. She definitely has persistent disease based on biopsy. This makes her primary refractory. Best results for primary refractory disease are with salvage chemotherapy followed by autologous stem cell transplant. With this approach, up to 60% of patients can still be cured. I'm very hopeful that this will be the case for Myriam given the minimal amount of residual disease present. 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 Please see problem list above. In light of this based on the bio coral study, R-DHAP is probably the most effective salvage regimen. Rice chemotherapy could also be considered. I would restage her with a PET scan after 2 cycles. If we've had and near CR then I would proceed to autologous stem cell transplant. I would like to collect her stem cells off of her first cycle. Unfortunately, her insurance situation is still unclear. This makes it difficult to do any transplant testing or evaluation, because we first need insurance approval. I've asked her to please press her employment to find out he is going to stay on their insurance plan or whether she'll need to purchase [employer]. Either way, she is confident that she will have some sort of insurance, and in this case, we should be able to proceed with autologous stem cell transplant. I've contacted Светлана peterson and Venecia Kilo who will pursue transplant related issues including insurance and pretransplant testing. I reviewed the basics of autologous stem cell transplant and the fact that it takes 3 weeks in hospital. We reviewed that the idea is to give higher doses of chemotherapy than would normally be tolerated, but, rescue the bone marrow was previously collected stem cells. I explained that if full discussion of the autologous stem cell transplant takes at least 90 minutes and we usually devoted complete half-day in clinic to both the discussion as well as pain evaluation, a to her, etc. The next step is to clarify her insurance situation. After that, I will try to burnette her to R-DHAP chemotherapy and hopefully be able to perform stem cell collection following that. A total of 30 minutes was spent with the patient all of which was in discussion. Major questions were answered. We both understand further discussion is necessary so that she understands the whole procedure. At her request, we will fax this note as well as the others to her friend, Dr. Sacha Jean, who is been advising her. documented in this encounter Plan of Treatment Upcoming Encounters Date Type Department Care Team (Late st Contact Info) Description 12/07/2023 12:00 PM EDT Office Visit Dermatology at [address] [place] [address] Juan F Chappell MD [facility] [address] [facility] [address] documented as of this encounter Visit Diagnoses Diagnosis Lymphoma Other malignant lymphomas, unspecified site, extranodal and solid organ sites documented in this encounter Care Teams Sheet Metal [employer] Supervisor Relationship Specialty Start Date End Date Maine Dunn PA PCP - General 04/08/14 02/13/15 documented as of this encounter
--- OUTSIDE RECORDS SUMMARY | 2023-10-28 00:47 | XMS_ITS | Encounter Summary ---
Author Organization [facility] Address [facility] [place] [address] Care Team Providers Care Philosophy Faculty Member Name Role Phone Maine Dunn Primary Care Provider [phone] Encounter Details Date Type Department Care Team (Late st Contact Info) Description 10/09/2014 3:50 PM EDT - 10/11/2014 3:30 PM EDT Hospital Encounter 1 [place] [id number] Kimberly Mondragon MD [facility] [address] HEMATOLOGY [place] [address] Lymphoma Discharge Disposition: Home Social History Tobacco [...] Sign Reading Time Taken Comments Blood Pressure 98/72 10/11/2014 11:14 AM EDT Pulse 68 10/11/2014 11:14 AM EDT Temperature 36.8 ??C (98.2 ??F) 10/11/2014 11:14 AM E DT Respiratory Rate 16 10/11/2014 8:41 AM EDT Oxygen Saturation 96% 10/11/2014 11:14 AM EDT Inhaled Oxygen Concentration - - Weight 71.3 kg (157 lb 3 oz) 10/11/2014 3:41 AM EDT Height 157.5 cm (5' 2) 10/09/2014 4:22 PM EDT Body Mass Index 28.75 10/09/2014 4:22 PM EDT documented in this encounter Discharge Summaries * Kimberly Mondragon MD - 10/11/2014 3:39 PM EDT Discharge Summary Patient Name: Myriam Vivas Patient Age: 64 y.o. Language: Scottish Race: White Ethnicity: Not nor Admit date: 10/09/2014 Discharge date and time: 10/11/2014 Attending Physician: Kimberly Mondragon MD Discharge Physician: Kimberly Mondragon MD Follow-up Recommendations for Providers: -Monitor cell counts and necessity for prophylaxis. -Follow up on Neupogen requirements. She was given teaching and supplies and will be doing her own daily injections. She will likely have her stem cell collection around day 12 of chemotherapy which would be Tuesday, October 21, 2014. Inpatient Provider Contact Information: [address] [place] [phone] Discharge Diagnoses (Hospital Problems) and Secondary Diagnoses (Chronic Problems): Active Hospital Problems Diagnosis ??? Lymphoma ??? Depression with anxiety Resolved Hospital Problems Diagnosis Date Resolved No resolved problems to display. There are no active non-hospital problems to display for this patient. History of Presentation: HPI This is a 64 y/o woman with minimal past medical history who presented with cervical and axillary lymphadenopathy 1 year ago, with axillar LN biopsy found to be consistent with DLBCL, staged as IIIa.She underwent 6 cycles of R-CHOP, last one in July, with follow up PET scan 09/02 showing improvement but persistent disease in the right paratracheal space, she underwent bronch with FNA that showed residual disease. Since then, she feels well. 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 She denies fevers, chills, night sweats, pain, shortness of breath, easy bruising or bleeding. She endorses anxiety about the chemo. PET after 3 cycles 05/2014 IMPRESSION: 1. Overall marked interval improvement, however, residual active lymphoma in the residual right paratracheal ammon mass. 2. No other sites of active lymphoma. PET-CT after 6 cycles 09/02/2014: IMPRESSION: 1. Partial but significant improvement of hypermetabolic right paratracheal conglomerate ammon mass consistent with lymphoma. 2. Slight interval decrease in size of non-FDG avid left axillary lymph nodes most likely representing treated lymphoma. 3. No other sites of active lymphoma. Lymph node FNA by ebus: 09/26/2014: Abnormal lymphocytes in this FNA specimen consist [...] was not informative according to the [employer] software test engineer, but the strong BCL2 expression in the absence of MUM1 suggests a germinal center origin via the Muris software test engineer. Hospital Course: Myriam Vivas is a 64 y.o. w/ PMH of DLBCL s/p 6 cycles of R-CHOP who was admitted for cycle 1 ofR-DHAP which was started on the evening of 10/09/2014. Her course was uncomplicated and she tolerated her chemotherapy well. Her chemotherapy regimen is detailed below. Her anxiety was well controlledwith her home Lexapro and Ativan doses. She was given a 14 day supply of Levaquin, Fluconazole, andAcyclovir upon discharge. Chemotherapy: The R-DHAP chemo regimen is as follows: Rituxan on day 1, (700 mg) 10/09/14 Cisplatin on day 1, (172 mg) over 24 hours, 10/09/14 Cyatarabine Q12 hours x2 doses (3,440 mg) on day 2, 10/10/14 Dexamethasone 40 mg daily days 1-4 (10/09/14-10/12/14) Vital Signs at Discharge: BP: 98/72 mmHg, Heart Rate: 68, Temp: 36.8 ??C (98.2 ??F), Resp: 16, BMI (Calculated): 26.7 Height: 157.5 cm (5' 2) (10/09/14 1622) Weight - Scale: 71.3 kg (157 lb 3 oz) (10/11/14 0341) Functional and Cognitive Status: Baseline Functional and Cognitive Status Important Studies and Lab Data: Labs: Last 3 wbc, hgb, hct plt Recent Labs 10/11/14 0350 10/10/14 0425 10/09/14 1446 WBC 7.1 5.0 5.3 HGB 9.5* 11.3 12.7 HCT 27.9* 32.4* 36.5 PLATELET 147 208 235 Last 3 Lytes Recent Labs 10/11/14 0350 10/10/14 1630 10/10/14 0425 NA 144 142 143 K 3.7 3.7 4.0 CL 108* 106 106 CO2 25 25 Not Perf BUN 15 13 17 CREATININE 0.60* 0.61* 0.62* Last 3 LFTs Recent Labs 10/11/14 0350 10/10/14 1630 10/10/14 0425 AST 76* 47* 34* ALT 98* 58* 40* ALKPHOS 86 100 105* BILITOT 0.4 0.4 0.4 BILIDIR 0.1 0.1 0.1 Last Ca, Mg, Phos Recent Labs 10/11/14 0350 CALCIUM 8.4* PHOS 3.7 Last 3 Coags No results for input(s): PT, INR, PTT in the last 168 hours. Discharge Conditions/Prognosis: Stable Discharge to: Home Updated Allergies/ADRs: Allergies Allergen Reactions ??? Tegaderm [Transparent Dressings] Other (See Comments) Unsure if actual allergy, please try [id number] Skin tears/rawness Immunizations Given this Hospitalization: Immunization History Administered Date(s) Administered ??? Influenza Vaccine, Whole 12/22/2004, 01/03/2006 Discharge Medications: Your Medications Notice Some of the medications listed here do not show instructions, such as how often to take the medication. Ask your doctor or nurse how to use these medications. Specifically ask about this and similar medications: escitalopram (LEXAPRO) 10 mg tablet New Medications Dose Details acyclovir 400 mg Tab Commonly known as: ZOVIRAX Take 1 tablet by mouth 2 times daily. 400 mg Quantity: 60 tablet Refills: 3 * filgrastim 300 mcg/mL Soln Commonly known as: NEUPOGEN Inject 1 mL subcutaneously daily for 10 days. Total dose of 780 mcg daily Start taking on: 10/13/2014 300 mcg Quantity: 10 mL Refills: 1 * filgrastim 480 mcg/0.8 mL Syrg Commonly known as: NEUPOGEN Inject 0.8 mLs subcutaneously daily for 10 days. Total dose of 780 mcg. Start taking on: 10/13/2014 480 mcg Quantity: 10 Syringe Refills: 1 fluconazole 200 mg Tab Commonly known as: DIFLUCAN Take 1 tablet by mouth daily for 14 days. 200 mg Quantity: 14 tablet Refills: 0 levofloxacin 750 mg Tab Commonly known as: LEVAQUIN Take 1 tablet by mouth daily for 14 days. 750 mg Quantity: 14 tablet Refills: 0 ondansetron 4 mg Tab Commonly known as: ZOFRAN ( HYDROCHLORIDE) Take 1 tablet by mouth every 8 hours as needed for Nausea. 4 mg Quantity: 20 tablet Refills: 0 prednisoLONE acetate 1 % Drps Commonly known as: PRED FORTE Place 2 drops into both eyes every 6 hours for 2 days. Last dose 11:30 am on 10/13 2 drop Quantity: 10 mL Refills: 0 predniSONE 20 mg Tab Commonly known as: DELTASONE Take 2 tablets by mouth daily for 1 day. 40 mg Quantity: 2 tablet Refills: 0 * Notice: This list has 2 medication(s) that are the same as other medications prescribed for you. Read the directions carefully, and ask your doctor or other care provider to review them with you. Continued medications with new dosing Dose Details * LORazepam 0.5 mg Tab Commonly known as: ATIVAN Take 1 tablet by mouth every 6 hours as needed for Anxiety. Patient takes one tablet in the morning, and two tablets at night What changed: Another medication with the same name was added. Make sure you understand how and when to take each. 0.5 mg Quantity: 30 tablet Refills: 0 * LORazepam 0.5 mg Tab Commonly known as: ATIVAN Take 1 tablet by mouth every 6 hours as needed for Anxiety. What changed: You were already taking a medication with the same name, and this prescription was added. Make sure you understand how and when to take each. 0.5 mg Quantity: 30 tablet Refills: 0 * Notice: This list has 2 medication(s) that are the same as other medications prescribed for you. Read the directions carefully, and ask your doctor or other care provider to review them with you. Continued medications, unchanged Dose Details Calcium 500 mg Tab Take by mouth. Refills: 0 docusate sodium 100 mg Cap Commonly known as: COLACE Take 100 mg by mouth 2 times daily. 100 mg Refills: 0 FISH OIL 1,000 mg Cap Take by mouth. Generic drug: [place]-3 Fatty Acids-Vitamin E Refills: 0 LEXAPRO 10 mg Tab Generic drug: escitalopram oxalate Refills: 0 senna 8.6 mg Tab Commonly known as: SENOKOT Take 1 tablet by mouth daily. 1 tablet Refills: 0 Vitamin D-3 2,000 unit Cap Take 1,000 Units by mouth. Generic drug: Cholecalciferol (Vitamin D3) 1000 Units Refills: 0 STOPPED Medications acetaminophen 500 mg Tab Commonly known as: TYLENOL diphenhydrAMINE-Acetaminophen 25-500 mg Tab Smoking Status at Discharge: History Smoking status ??? Never Smoker Smokeless tobacco ??? Never Used Last Set of Vitals and range of vitals over past 24 hours: Last value Range last 24 hrs Temperature Temp: 36.8 ??C (98.2 ??F) Temp: [36.4 ??C (97.5 ??F)-36.8 ??C (98.2 ??F)] Heart Rate Heart Rate: 68 Heart Rate: [56-85] Blood Pressure BP: 98/72 mmHg BP: (82-102)/(54-72) Respiratory Rate Resp: 16 Resp: [16-18] SpO2 SpO2: 96 % SpO2: [85 %-98 %] Instructions Given to Patient at Discharge: Patient Instructions Instruction after leaving the hospital Why you were hospitalized: You were hospitalized for R-DHAP chemotherapy for diffuse large B-cell lymphoma. Call your doctor or seek medical attention if you develop the following: Call your doctor or seek medical attention if you experience any alarming symptoms. This may include, but is not limited to, fever, chest pain, severe shortness of breath, nausea with vomiting, persistent decrease in your urinary output, severe pain, or any other concerning symptoms. Activity level: As tolerated. Diet: Please wash all of your fruit. Don't eat any un-pasteurized milk products. Drink bottled water instead of well-water. Driving: Please do not drive if you feel lightheaded, dizzy, faint, or taking any opioids/narcotics(i.e oxycodone). It is advisable that you do not drive till you follow-up with your primary care physician. Shower/Bath: No new restrictions. Wound Care: None Home Oxygen therapy: N/A Patient Instructions: Neutropenic precautions: You should avoid crowds and people with active infections and practice good handwashing. Changes in Your Medications: New Medications: Prednisone 40 mg by mouth once tomorrow AM Prednisolone acetate eye drops every 6 hours for 2 days Acyclovir 400 mg by mouth twice per day Fluconazole 200 mg daily for 14 days Levofloxacin 750 mg daily for 14 days Zofran 4 mg by mouth every 8 hours as needed for pain Follow-Up Appointments Future Appointments Date Time Provider Department Center 10/17/2014 4:00 PM ECHO REGULAR NI Card None 10/22/2014 6:30 AM [facility] ANGIO/VIR WORKUP Rad Rn None 10/22/2014 7:30 AM ANGIO, VIR TWO MH IR None 10/22/2014 9:00 AM [facility] ANGIO/VIR RECOVERY Rad Rn None 11/04/2014 7:00 AM LABORATORY, TECH [facility] Inf 3K None 11/04/2014 8:00 AM Kimberly Mondragon MD [facility] Hem Onc [facility] 11/04/2014 9:30 AM [facility] INFUSION THERAPY [facility] 3K None Your Inpatient Doctor(s) [place] [facility] Kimberly Mondragon MD - Attending Medhat Porter MD - Fellow Yessy Landrum MD - Resident Santos Mobley MD - Manager Pmo Your Primary Care Provider: SOPHY FUNES (General) [address] / [facility] [address] For questions regarding this document or issues relating to this hospitalization on the Medical Service, please contact your inpatient physician through the [facility] Television Journalist . Issues afterhours and on weekends will be handled by the Hospitalist staff on-call. General Instructions None Future Appointments Provider Department Dept Phone 10/22/2014 6:30 AM [facility] ANGIO/VIR WORKUP [facility] RAD RN RESOURCE [phone] 10/22/2014 7:30 AM ANGIO, VIR TWO [facility] INTERVENTIONL RAD [phone] 10/22/2014 9:00 AM [facility] ANGIO/VIR RECOVERY [facility] RAD RN RESOURCE [phone] 11/04/2014 7:00 AM LABORATORY, TECH [facility] Hem Onc 3K [phone] 11/04/2014 8:00 AM Kimberly Mondragon MD [facility] Hem Onc 3K [phone] 11/04/2014 9:30 AM [facility] INFUSION THERAPY [facility] Hem Onc [phone] Provider Contact Information: SOPHY FNUES (General) [address] / [facility] [address] Discharge References/Attachments None ++++++++++++++++++++++++++++++++++++++++++++++++++++++++++++++++ Attending Addendum: I agree with the history, physical, assessment and plan of the housestaff. I have seen and examinedthe patient on rounds and I have discussed the management with the team. I have reviewed all pertinent laboratory and radiographic findings. This patient meets criteria for inpatient level of care due to the above medical complexity. I agree with the plan above. documented in this encounter Discharge Instructions * Patient Instructions* Yessy Landrum - 10/11/2014 1:18 PM EDT Instruction after leaving the hospital Why you were hospitalized: You were hospitalized for R-DHAP chemotherapy for diffuse large B-cell lymphoma. Call your doctor or seek medical attention if you develop the following: Call your doctor or seek medical attention if you experience any alarming symptoms. This may include, but is not limited to, fever, chest pain, severe shortness of breath, nausea with vomiting, persistent decrease in your urinary output, severe pain, or any other concerning symptoms. Activity level: As tolerated. Diet: Please wash all of your fruit. Don't eat any un-pasteurized milk products. Drink bottled water instead of well-water. Driving: Please do not drive if you feel lightheaded, dizzy, faint, or taking any opioids/narcotics(i.e oxycodone). It is advisable that you do not drive till you follow-up with your primary care physician. Shower/Bath: No new restrictions. Wound Care: None Home Oxygen therapy: N/A Patient Instructions: Neutropenic precautions: You should avoid crowds and people with active infections and practice good handwashing. Changes in Your Medications: New Medications: Prednisone 40 mg by mouth once tomorrow AM Prednisolone acetate eye drops every 6 hours for 2 days Acyclovir 400 mg by mouth twice per day Fluconazole 200 mg daily for 14 days Levofloxacin 750 mg daily for 14 days Zofran 4 mg by mouth every 8 hours as needed for pain Follow-Up Appointments Future Appointments Date Time Provider Department Center 10/17/2014 4:00 PM ECHO REGULAR NI Card None 10/22/2014 6:30 AM [facility] ANGIO/VIR WORKUP Rad Rn None 10/22/2014 7:30 AM ANGIO, VIR TWO IR None 10/22/2014 9:00 AM [facility] ANGIO/VIR RECOVERY Rad Rn None 11/04/2014 7:00 AM LABORATORY, TECH [facility] Inf 3K None 11/04/2014 8:00 AM Kimberly Mondragon MD [facility] Onc [facility] 11/04/2014 9:30 AM LEB INFUSION THERAPY [facility] 3K None Your Inpatient Doctor(s) at [facility]: Kimberly Mondragon MD - Attending Medhat Porter MD - Fellow Yessy Landrum MD - Resident Santos Mobley MD - Manager Pmo Your Primary Care Provider: SOPHY FUNES (General) [address] / [facility] [phone] For questions regarding this document or issues relating to this hospitalization on the Medical Service, please contact your inpatient physician through the [facility] Television Journalist . Issues afterhours and on weekends will be handled by the Hospitalist staff on-call. documented in this encounter Medications at Time of Discharge Medication Sig Dispensed Refills Start Date End Date prednisoLONE acetate (PRED FORTE) 1 % Drops, SuspensionIndicatio ns:Lymphoma Place 2 drops into both eyes every 6 hours for 2 days. Last dose 11:30 am on 10/13 10 mL 0 10/11/2014 10/13/2014 predniSONE (DELTASONE) 20 mg Tablet Take 2 tablets by mouth daily for 1 day. 2 tablet 0 10/11/2014 10/12/2014 ondansetron (ZOFRAN, HYDROCHLORIDE,) 4 mg Tablet Take 1 tablet by mouth every 8 hours as needed for Nausea. 20 tablet 0 10/11/2014 11/04/2014 levofloxacin (LEVAQUIN) 750 mg Tablet Take 1 tablet by mouth daily for 14 days. 14 tablet 0 10/11/2014 10/25/2014 fluconazole (DIFLUCAN) 200 mg Tablet Take 1 tablet by mouth daily for 14 days. 14 tablet 0 10/11/2014 10/25/2014 acyclovir (ZOVIRAX) 400 mg Tablet Take 1 tablet by mouth 2 times daily. 60 tablet 3 10/11/2014 01/03/2015 LORazepam (ATIVAN) 0.5 mg Tablet Take 1 tablet by mouth every 6 hours as needed for Anxiety. 30 tablet 0 10/11/2014 11/04/2014 filgrastim (NEUPOGEN) 300 mcg/mL Solution Inject 1 mL subcutaneously daily for 10 days. Total dose of 780 mcg daily 10 mL 1 10/13/2014 10/23/2014 filgrastim (NEUPOGEN) 480 mcg/0.8 mL Syringe Inject 0.8 mLs subcutaneously daily for 10 days. Total dose of 780 mcg. 10 Syringe 1 10/13/2014 10/23/2014 LORazepam (ATIVAN) 0.5 mg TabletIndications:L ymphoma Take 1 tablet by mouth every 6 hours as needed for Anxiety. Patient takes one tablet in the morning, and two tablets at night 30 tablet 0 09/30/2014 11/04/2014 docusate sodium (COLACE) 100 mg Capsule Take 100 mg by mouth 2 times daily. 10/02/2015 senna (SENOKOT) 8.6 mg Tablet Take 1 tablet by mouth daily. 12/25/2015 [place]-3 Fatty Acids-Vitamin E (FISH OIL) 1,000 mg CapsuleIndications: Lymphoma Take by mouth. 01/29/2015 Calcium 500 mg TabletIndications:L ymphoma Take by mouth. 01/29/2015 Cholecalciferol, Vitamin D3, (VITAMIN D-3) 2,000 unit CapsuleIndications: Lymphoma Take 1,000 Units by mouth. 01/29/2015 escitalopram (LEXAPRO) 10 mg tablet 03/08/2005 01/03/2015 documented as of this encounter Progress Notes * Kimberly Mondragon MD - 10/11/2014 10:48 AM EDT ATTENDING DISCHARGE NOTE I saw and examined pt on rounds. Patient discussed in detail and ready for discharge. Discussed home going meds with patient. Follow up appts arranged. All questions answered. * Kimberly Mondragon MD - 10/11/2014 5:51 AM EDT Inpatient Hematology/Oncology/SCT Progress Note Patient info: Name: Myriam Vivas : 1950 PCP: SOPHY FUNES (General) PCP phone number: [phone] Date of Admission: 10/09/2014 ( Hospital Day 2 days ) Service: Hem/Onc Team A pg [id number] (06/09) Responsible Attending:Kimberly Mondragon MD ID: Myriam Vivas is a 64 y.o. w/ PMH of DLBCL s/p 6 cycles of R-CHOP who was admitted for cycle 1 of R-DHAP. She is currently C1D3 R-DHAP. 24 Hour Events: -Overall she is doing well and tolerating her chemo. She complains of taking a little too much senna as her bowel movements were more frequent than usual overnight. -Overnight her phos was low so she was given Kphos 15mmol -Discontinued her IV fluids 5 hours after Cyplatin was finished in the chemo order set as as her weight is up 5 kg. -Given Lasix 20 mg IV and has been frequently urinating since then. -Giving magnesium Subjective: She denies nausea, vomiting, dizziness, lightheadedness, chest pain, SOB, diarrhea, and constipation. Vitals: Last value Range last 24 hrs Temperature Temp: 36.8 ??C (98.2 ??F) Temp: [36.4 ??C (97.5 ??F)-36.8 ??C (98.2 ??F)] Heart Rate Heart Rate: 58 Heart Rate: [56-78] Blood Pressure BP: 90/62 mmHg BP: (82-94)/(54-72) Respiratory Rate Resp: 18 Resp: [16-18] SpO2 SpO2: 98 % SpO2: [85 %-98 %] Intake/Output Summary (Last 24 hours) at 10/11/14 0651 Last data filed at 10/11/14 0522 Gross per 24 hour Intake 5495 ml Output 1675 ml Net 3820 ml Patient Vitals for the past 168 hrs: Weight 10/11/14 0341 71.3 kg (157 lb 3 oz) 10/10/14 0419 67.9 kg (149 lb 11.1 oz) 10/09/14 1622 66.1 kg (145 lb 11.6 oz) Admit wt: 66.1 kg Physical Exam: Gen: Alert and oriented to person, place and time. Pleasant and calm this morning. HEENT: No palpable lymphadenopathy, EOMI, pupils are equal and reactive to light CV: RRR, no murmurs Pulm: Clear to auscultation bilaterally Abd: Soft and non tender Neuro: Cranial nerves grossly in tact. Her cerebellar coordination exam is not changed and her cerebellar function is normal. Medications: Scheduled Meds: ??? docusate sodium 100 mg Oral BID ??? escitalopram oxalate 10 mg Oral Daily ??? calcium carbonate 500 mg Oral Daily ??? cholecalciferol (Vitamin D3) 400 Units Oral Daily ??? ondansetron 16 mg Oral Q12H ??? prednisoLONE acetate 2 drop Both Eyes Q6H ??? dexamethasone inj 40 mg Intravenous Q24H ??? cytarabine (CYTOSAR) chemo infusion 2,000 mg/m2/dose (Treatment Plan Actual) Intravenous Q12H ??? [START ON 10/12/2014] filgrastim 480 mcg Subcutaneous Daily ??? senna 8.6 mg Oral BID Continuous Infusions: PRN Meds:.LORazepam, simethicone, acetaminophen, diphenhydrAMINE OR diphenhydrAMINE, sodium chloride 0.9 %, dexamethasone inj, LORazepam, meperidine (PF), ondansetron, prochlorperazine, furosemide, alteplase, heparin, porcine, sodium chloride 0.9 %, polyethylene glycol (MIRALAX)oral powder Labs: Recent Labs 10/11/14 0350 10/10/14 0425 10/09/14 1446 WBC 7.1 5.0 5.3 HGB 9.5* 11.3 12.7 HCT 27.9* 32.4* 36.5 PLATELET 147 208 235 NEUTROABS 6.39* 4.71 3.88 Recent Labs 10/11/14 0350 10/10/14 1630 10/10/14 0425 NA 144 142 143 K 3.7 3.7 4.0 CL 108* 106 106 CO2 25 25 Not Perf BUN 15 13 17 CREATININE 0.60* 0.61* 0.62* Recent Labs 10/11/14 0350 10/10/14 1630 10/10/14 0425 10/09/14 1446 CALCIUM 8.4* 8.8 9.1 10.0 MAGNESIUM 0.67* -- 0.73 0.78 PHOS 3.7 1.8* 3.0 3.2 Recent Labs 10/11/14 0350 10/10/14 1630 10/10/14 0425 10/09/14 1446 AST 76* 47* 34* 28 ALT 98* 58* 40* 36* ALKPHOS 86 100 105* 120* BILITOT 0.4 0.4 0.4 0.6 BILIDIR 0.1 0.1 0.1 0.1 LDH 184 -- 179 197 No results for input(s): INR, PT, PTT in the last 72 hours. Assessment: This is a 64 y/o woman with anxiety presents for cycle 1 of R-DHAP salvage therapy for her residualDLBCL s/p 6 cycles of R-CHOP. She will require an autologous SCT in future. She will be monitored for myelosuppression, mucositis, and cerebellar toxicity. #DLBCL: She received 6 cycles of R-CHOP with evidence for residual disease. She started R-DHAP on 09/2614. She is currently C1D3 R-DHAP. She will likely be receiving a bone marrow transplant. Will plan on stem cell collection on day 12 of chemotherapy. The R-DHAP chemo regimen is as follows: Rituxan on day 1 Cisplatin on day 1, over 24 hours Cyatarabine Q12 hours x2 doses on day 2 Dexamethasone 40 mg daily days 1-4 -Daily tumor lysis labs -Allopurinol prophylaxis against tumor lysis -Zofran PRN for nausea -Benadryl PRN -Ordered echo today for BMT workup -Will prescribe Ativan and Zofran when she goes home. #Anxiety: -Continue home lexapro 10 mg daily -Continue home ativan .5 mg Q6 prn, 1 mg daily for sleep #Infection Prophylaxis -Levaquin is 750 mg, will prescribe 14 day supply -Fluconazole 200 mg daily -Acyclovir 400 mg 2x a day DVT ppx: Held for now, patient is ambulatory Diet: Regular Dispo: Pending course Code Status: Full Code DPOA is daughter Lila, phone #[phone] SANTOS MOBLEY MD PGY1 Internal Medicine 10/11/201406/09 Heme/Onc/BMT Team A Pager #[phone] ++++++++++++++++++++++++++++++++++++++++++++++++++++++++++++++++ Attending Addendum: I agree with the [...] agree with the plan above. * Moni Webb, COMMERCIAL LOAN PROCESSOR - 10/10/2014 3:06 PM EDT Therapeutic massage initiated. Myriam receptive and appreciative. Prior to session anxiety rated 4/10; after session 0/10. Unfortunately, there are no practitioners from the [facility] available until next week. Myriam was encouraged to have RNs put her name on massage list when she next gets admitted. * Kimberly Mondragon MD - 10/10/2014 6:25 AM EDT Inpatient Hematology/Oncology/SCT Progress Note Patient info: Name: Myriam Vivas : 1950 PCP: SOPHY FUNES (General) PCP phone number: [phone] Date of Admission: 10/09/2014 ( Hospital Day 1 day ) Service: Hem/Onc Team A pg [id number] (06/09) Responsible Attending:Kimberly Mondragon MD ID: Myriam Vivas is a 64 y.o. w/ PMH of DLBCL s/p 6 cycles of R-CHOP who was admitted for cycle 1 of R-DHAP. She is currently C1D1 R-DHAP. 24 Hour Events: -Overall feeling well. -She tolerated her chemo thus far and is planning on ordering breakfast. -She complains of having some stomach upset that resolved after she had her ativan. -She did not have her normal bowel movement this morning and will let us know if she needs any additional bowel regimen later in the day. Subjective: She denies nausea, vomiting, dizziness, lightheadedness, chest pain, SOB, diarrhea, and constipation. Vitals: Last value Range last 24 hrs Temperature Temp: 36.4 ??C (97.5 ??F) Temp: [36.2 ??C (97.2 ??F)-36.7 ??C (98.1 ??F)] Heart Rate Heart Rate: 78 Heart Rate: [76-94] Blood Pressure BP: 80/52 mmHg (RN aware ) BP: (80-120)/(50-78) Respiratory Rate Resp: 18 Resp: [16-20] SpO2 SpO2: 98 % SpO2: [95 %-99 %] Intake/Output Summary (Last 24 hours) at 10/10/14 0626 Last data filed at 10/10/14 0427 Gross per 24 hour Intake 2113 ml Output 1000 ml Net 1113 ml Patient Vitals for the past 168 hrs: Weight 10/10/14 0419 67.9 kg (149 lb 11.1 oz) 10/09/14 1622 66.1 kg (145 lb 11.6 oz) Admit wt: 66.1 kg Physical Exam: Gen: Alert and oriented to person, place and time. Pleasant and calm this morning. HEENT: No palpable lymphadenopathy, EOMI, pupils are equal and reactive to light CV: RRR, no murmurs Pulm: Clear to auscultation bilaterally Abd: Soft and non tender Neuro: Cranial nerves grossly in tact. Her cerebellar coordination exam is not changed and her cerebellar function is normal. Medications: Scheduled Meds: ??? docusate sodium 100 mg Oral BID ??? escitalopram oxalate 10 mg Oral Daily ??? calcium carbonate 500 mg Oral Daily ??? cholecalciferol (Vitamin D3) 400 Units Oral Daily ??? ondansetron 16 mg Oral Q12H ??? prednisoLONE acetate 2 drop Both Eyes Q6H ??? dexamethasone inj 40 mg Intravenous Q24H ??? CISplatin (PLATINOL) chemo infusion 100 mg/m2/dose (Treatment Plan Actual) Intravenous Once ??? cytarabine (CYTOSAR) chemo infusion 2,000 mg/m2/dose (Treatment Plan Actual) Intravenous Q12H ??? [START ON 10/12/2014] filgrastim 480 mcg Subcutaneous Daily ??? senna 8.6 mg Oral BID Continuous Infusions: ??? sodium chloride 0.9% 150 mL/hr (10/10/14 0207) PRN Meds:.acetaminophen, diphenhydrAMINE OR diphenhydrAMINE, sodium chloride 0.9 %, dexamethasone inj, LORazepam, meperidine (PF), [START ON 10/11/2014] ondansetron, prochlorperazine, furosemide, alteplase, heparin, porcine, sodium chloride 0.9 %, LORazepam, polyethylene glycol (MIRALAX)oral powder Labs: Recent Labs 10/10/14 0425 10/09/14 1446 WBC 5.0 5.3 HGB 11.3 12.7 HCT 32.4* 36.5 PLATELET 208 235 NEUTROABS 4.71 3.88 Recent Labs 10/09/14 1446 NA 144 K 3.8 CL 104 CO2 27 BUN 19* CREATININE 0.67* Recent Labs 10/10/14 0425 10/09/14 1446 CALCIUM -- 10.0 MAGNESIUM 0.73 0.78 PHOS -- 3.2 Recent Labs 10/10/14 0425 10/09/14 1446 AST -- 28 ALT -- 36* ALKPHOS -- 120* BILITOT -- 0.6 BILIDIR -- 0.1 LDH 179 197 No results for input(s): INR, PT, PTT in the last 72 hours. Assessment: This is a 64 y/o woman with anxiety presents for cycle 1 of R-DHAP salvage therapy for her residualDLBCL s/p 6 cycles of R-CHOP. She will require an autologous SCT in future. She will be monitored for myelosuppression, mucositis, and cerebellar toxicity. #DLBCL: She received 6 cycles of R-CHOP with evidence for residual disease. She started R-DHAP on 09/2614. She is currently C1D2 R-DHAP. She will likely be receiving a bone marrow transplant. Will plan on stem cell collection on day 12 of chemotherapy. The R-DHAP chemo regimen is as follows: Rituxan on day 1 Cisplatin on day 1, over 24 hours Cyatarabine Q12 hours x2 doses on day 2 Dexamethasone 40 mg daily days 1-4 -Daily tumor lysis labs -Allopurinol prophylaxis against tumor lysis -Zofran PRN for nausea -Benadryl PRN -Ordered echo today for BMT workup -Will prescribe Ativan and Zofran when she goes home. #Anxiety: -Continue home lexapro 10 mg daily -Continue home ativan .5 mg Q6 prn, 1 mg daily for sleep #Infection Prophylaxis -Levaquin is 750 mg, will prescribe 14 day supply -Fluconazole 200 mg daily -Acyclovir 400 mg 2x a day DVT ppx: Held for now, patient is ambulatory Diet: Regular Dispo: Pending course Code Status: Full Code DPOA is daughter Lila, phone #[phone] SANTOS MOBLEY MD PGY1 Internal Medicine 10/10/201406/09 Heme/Onc/BMT Team A Pager #[phone] ++++++++++++++++++++++++++++++++++++++++++++++++++++++++++++++++ Attending Addendum: I agree with the history, physical, assessment and plan of the housestaff. I have seen and examinedthe patient on rounds and I have discussed the management with the team. I have reviewed all pertinent laboratory and radiographic findings. This patient meets criteria for inpatient level of care due to the above medical complexity. I agree with the plan above. * Carlos Larios RN - 10/09/2014 6:22 PM EDT Pt was a direct admit today to start R-DHAP for a diagnosis of DLBDCL. She arrived to the unit walking and looking well. VSS so far. Steady on her feet. A/Ox4, no cough, no diarrhea, voiding well, and skin intact. Right single lumen power port accessed. Offers no other complaints. Plan to start Rituxan this shift and then Cisplatin over nightshift. Pt educated on use of call martell, hourly rounding, and nurse knowledge exchange at the bedside. Will continue to monitor. documented in this encounter H&P Notes * Kimberly Mondragon MD - 10/09/2014 2:26 PM EDT Inpatient Hematology- Admission Note Problem List: Active Hospital Problems Diagnosis ??? Lymphoma ??? Depression with anxiety Resolved Hospital Problems Diagnosis Date Resolved No resolved problems to display. ID: Myriam Vivas is a 64 y.o. Female who presents as a planned admission for R-DHAP. PCP: SOPHY FUNES (General) History of Present Illness: HPI This is a 64 y/o woman with minimal past medical history who presented with cervical and axillary lymphadenopathy 1 year ago, with axillar LN biopsy found to be consistent with DLBCL, staged as IIIa.She underwent 6 cycles of R-CHOP, last one in July, with follow up PET scan 09/02 showing improvement but persistent disease in the right paratracheal space, she underwent bronch with FNA that showed residual disease. Since then, she feels well. 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 She denies fevers, chills, night sweats, pain, shortness of breath, easy bruising or bleeding. She endorses anxiety about the chemo. PET after 3 cycles 05/2014 IMPRESSION: 1. Overall marked interval improvement, however, residual active lymphoma in the residual right paratracheal ammon mass. 2. No other sites of active lymphoma. PET-CT after 6 cycles 09/02/2014: IMPRESSION: 1. Partial but significant improvement of hypermetabolic right paratracheal conglomerate ammon mass consistent with lymphoma. 2. Slight interval decrease in size of non-FDG avid left axillary lymph nodes most likely representing treated lymphoma. 3. No other sites of active lymphoma. Lymph node FNA by ebus: 09/26/2014: Abnormal lymphocytes in this FNA specimen consist [...] was not informative according to the Bassem software test engineer, but the strong BCL2 expression in the absence of MUM1 suggests a germinal center origin via the Muris software test engineer. Review of Systems: Review of Systems Constitutional: Negative for fever, chills, diaphoresis, activity change, appetite change and fatigue. HENT: Negative. Eyes: Negative. Respiratory: Negative. Cardiovascular: Negative. Gastrointestinal: Negative. Neurological: Negative. Past Medical and Surgical History: DLBCL Anxiety Past Surgical History Procedure Laterality Date ??? Pro bone marrow [place] w/bx [place] [place] [facility] BONE MARROW ASP PERFORMED W/BX THRU BX INCISION performed by Kimberly Mondragon MD at [facility] ??? Pro bone marrow bx, needle/trocar Right 03/29/2014 [place] [place] [facility] BONE MARROW,BIOPSY performed by Kimberly Mondragon MD at [facility] ??? Pro bone marrow aspiration w/bx through same incision/site Left 09[place]02/2014 [place] [place] [facility]) BONE MARROW ASP PERFORMED W/BX THRU BX INCISION performed by Kimberly Mondragon MD at [facility] ??? Pro bone marrow bx, needle/trocar Left 09/02/2014 [place] [place] [facility] BONE MARROW,BIOPSY performed by Kimberly Mondragon MD at [facility] ??? Pro endobronchial u/s add-on N/A 09/26/2014 ENDOBRONCHIAL ULTRASOUND (EBUS) performed by Jamey Martin MD at [facility] Prior To Admission Medications: Prescriptions prior to admission Medication Sig Dispense Refill Last Dose ??? LORazepam (ATIVAN) 0.5 mg Tablet Take 1 tablet by mouth every 6 hours as needed for Anxiety. Patient takes one tablet in the morning, and two tablets at night 30 tablet 0 Unknown at Unknown time ??? diphenhydrAMINE-Acetaminophen 25-500 mg Tablet Take 50-1,000 mg by mouth. Unknown at Unknown time ??? docusate sodium (COLACE) 100 mg Capsule Take 100 mg by mouth 2 times daily. Unknown at Unknown time ??? senna (SENOKOT) 8.6 mg Tablet Take 1 tablet by mouth daily. Unknown at Unknown time ??? acetaminophen (TYLENOL) 500 mg Tablet Take 1,000 mg by mouth every 6 hours as needed. Unknown at Unknown time ??? [place]-3 Fatty Acids-Vitamin E (FISH OIL) 1,000 mg Capsule Take by mouth. Unknown at Unknown time ??? Calcium 500 mg Tablet Take by mouth. Unknown at Unknown time ??? Cholecalciferol, Vitamin D3, (VITAMIN D-3) 2,000 unit Capsule Take 1,000 Units by mouth. Unknown at Unknown time ??? escitalopram (LEXAPRO) 10 mg tablet Unknown at Unknown time Allergies: Allergies Allergen Reactions ??? Tegaderm [Transparent Dressings] Other (See Comments) Unsure if actual allergy, please try [id number] Skin tears/rawness Family History: Sister has breast cancer Sister in law from lymphoma 1 month ago Brother has esophageal and kidney cancer Social History and Habits: History Social History ??? Marital Status: Spouse Name: N/A Number of Children: N/A ??? Years of Education: N/A Occupational History ??? Not on file. Social History Main Topics ??? Smoking status: Never Smoker ??? Smokeless tobacco: Not on file ??? Alcohol Use: 1.2 oz/week 2 Glasses of wine per week ??? Drug Use: Yes Special: Benzodiazapines (Xanax, Valium) ??? Sexual Activity: Not on file Other Topics Concern ??? 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 , but has boyfriend. Immunizations: Immunization History Administered Date(s) Administered ??? Influenza Vaccine, Whole 12/22/2004, 01/03/2006 Physical Exam: Last Set of Vitals and range of vitals over past 24 hours: Last value Range last 24 hrs Temperature Temp: 36.6 ??C (97.9 ??F) Temp: [36.2 ??C (97.2 ??F)-36.6 ??C (97.9 ??F)] Heart Rate Heart Rate: 94 Heart Rate: [87-94] Blood Pressure BP: 120/78 mmHg BP: (113-120)/(66-78) Respiratory Rate Resp: 16 Resp: [16-18] SpO2 SpO2: 96 % SpO2: [96 %-99 %] Physical Exam Gen: Anxious but pleasant woman in NAD, head is shaved HEENT: PERRLA, EOMI, MMM, no cervical LAD, no axillary lymphadenopathy CV: RRR, no murmurs rubs or gallops Pulm: CTAB Abd: Benign Neuro: CN 2-12 intact, 5/5 strength in all extremities, no dymetria, veonyn-sa-hdib intact, gait intact and stable Laboratory (Last 24 Hours): Recent Results (from the past 24 hour(s)) Comprehensive metabolic panel (non-fasting) Result Value Ref Range Glucose Lvl 92 65 - 199 mg/dL BUN 19 (H) 8 - 18 mg/dL Creatinine 0.67 (L) 0.70 - 1.20 mg/dL Sodium 144 135 - 145 mmol/L Potassium 3.8 3.5 - 5.0 mmol/L Chloride 104 98 - 107 mmol/L CO2 27 22 - 31 mmol/L Anion Gap 13 5 - 15 mmol/L Calcium 10.0 8.5 - 10.5 mg/dL Total Protein 6.9 6.1 - 8.0 gm/dL Albumin 4.7 3.2 - 5.2 gm/dL AST 28 0 - 30 unit/L ALT 36 (H) 0 - 30 unit/L Alk Phos 120 (H) 40 - 104 unit/L Total Bilirubin 0.6 0.2 - 1.3 mg/dL Bili, Direct 0.1 0.0 - 0.3 mg/dL Estimated GFR >60 >=60 Lactate Dehydrogenase Result Value Ref Range LDH 197 110 - 220 unit/L ABO/Rh Typing Result Value Ref Range ABORh Type B Pos Antibody screen Result Value Ref Range Ab Screen Interp Negative Expires at 2359 on: 10/12/2014 Hemogram Result Value Ref Range WBC 5.3 4.0 - 10.0 x10(3)/mcL RBC 3.93 3.93 - 5.22 x10(6)/mcL Hemoglobin 12.7 11.2 - 15.7 gm/dL Hematocrit 36.5 34.0 - 45.0 % MCV 92.9 79.0 - 94.0 fL MCH 32.3 (H) 26.6 - 32.2 pg MCHC 34.8 32.0 - 36.5 gm/dL Platelets 235 145 - 370 x10(3)/mcL RDWSD 40.0 35.0 - 46.0 fL RDWCV 11.8 10.9 - 14.4 % MPV 9.2 9.0 - 12.0 fL Differential, Automated Result Value Ref Range Neutrophils % 72.7 % Neutr Abs (ANC) 3.88 1.50 - 6.30 x10(3)/mcL Lymphocytes % 15.6 % Lymphocytes Abs 0.8 (L) 1.0 - 3.6 x10(3)/mcL Monocytes % 7.5 % Monocyte Abs 0.4 0.2 - 1.0 x10(3)/mcL Eosinophils % 3.4 % Eosinophils Abs 0.2 0.0 - 0.5 x10(3)/mcL Basophils % 0.6 % Basophils Abs 0.0 0.0 - 0.2 x10(3)/mcL Immature Gran % 0.20 % [place] Gran Abs 0.01 0.00 - 0.05 x10(3)/mcL Microbiology: None Radiology: None new Other Studies: None new Assessment: This is a 64 y/o woman with DLBCL, anxiety and minimal other medical history who presents as a planned admission for R-DHAP salvage therapy and plan for autologous SCT in future. She is otherwise healthy. Will be on the look-out for myelosuppression, mucositis, and will plan to do coordination tests daily to look out for cerebellar toxicity. Details of plan to follow: Plan: ?? Admit to Heme Onc Team A #[phone] ?? Discussed Advanced Directives and Code Status. The patient wishesto be Full Code. DPOA is daughter Lila, phone #[phone] DLBCL: - Initiate R-DHAP Rituxan on day 1 Cisplatin on day 1, over 24 hours Cyatarabine Q12 hours x2 doses on day 2 Dexamethasone 40 mg daily days 1-4 TLS labs daily Allopurinol for TLS ppx Zofran PRN for nausea Benadryl PRN for itching and sleep Anxiety: Continue home lexapro 10 mg daily Continue home ativan .5 mg Q6 prn, 1 mg QHS for sleep No other active issues DVT ppx: Held for now, patient is ambulatory Diet: Regular Dispo: Pending course YESSY LANDRUM MD PGY2 Internal Medicine Heme Onc M3A Pager #[phone] 10/09/2014 ++++++++++++++++++++++++++++++++++++++++++++++++++++++++++++++++ Attending Addendum: I agree with the history, physical, assessment and plan of the housestaff. I have seen and examinedthe patient on rounds and I have discussed the management with the team. I have reviewed all pertinent laboratory and radiographic findings. This patient meets criteria for inpatient level of care due to the above medical complexity. I agree with the plan above. Plan: ?? Admit for cycle 1 of R-DHAP ?? Echocardiogram while in house ?? Please supply patient with prescriptions for Ativan and ondansetron upon discharge ?? Home-going antibiotics should include 14 day supply of levofloxacin 750 mg daily and mg daily. The patient should be on acyclovir 400 mg twice a day ongoing. ?? We are planning stem cell collection following his cycle of chemotherapy. Светлана Boone RN, aco coordinator, will organize follow-up Neupogen and labs. ?? Stem cell collection is anticipated on day 12 of chemotherapy documented in this encounter Miscellaneous Notes * Initial Assessments - Stephanie Lynn RN - 10/11/2014 9:25 AM EDT Office of Care Management/Initial Assessment Paper Spooler Stephanie Lynn RN, [facility] (pager [phone]) covering for Paper Spooler Larisa Hoskins RN ([email or web address]) Patient: Myriam Vivas : 1950 (64 y.o.) Home: [facility] [address] LOS: 2 days Care reviewed with Dr. Santos Mobley. Reviewed record and interviewed patient. Introduced CM role and services accepted. Patient Active Problem List Diagnosis Code ??? Lymphoma 202.80 ??? Depression with anxiety 300.4 Extended Emergency Contact Information Primary Emergency Contact: Lila Vivas Relation: Durable Power of Dairy Scientist for Healthcare Secondary Emergency Contact: Carlos Ramsey Relation: Friend ?? Code status: Full Code ?? Advance directives: Received ?? Insurance coverage: [place] [employer] [facility], [employer] Rx coverage ?? Admission status: 10/09/14 IPI Order to Admit is appropriate for lymphoma treatment with R-DHAP, and is signed by attending provider Dr. Kimberly Mondragon. ?? Anticipated barriers to discharge: None ?? Financial concerns: None ?? Identified patient/family concerns r/t discharge: None ?? Hr Assistant referral indicated: No ?? Baseline functional status/mobility: Independent ?? Bathing: Independent ?? Dressing: Independent ?? Toileting: Independent ?? Transferring: Independent ?? Continence: Continent ?? Feeding: Independent ?? Able to use a telephone on own initiative: Yes ?? Takes care of all shopping needs independently: Yes ?? Plans, prepares, and serves adequate meals independently: Yes ?? Maintains house alone with occasional assistance with heavy work: Yes ?? Does personal laundry completely: Yes ?? Travels independently on public transportation or drives own car: Drives own car ?? Is responsible for taking medication in correct dosages at correct time: Yes ?? Manages financial matters independently (budgets, writes checks, pays rent and bills, goes to bank); collects and keeps track of income: Yes ?? Current home/community services/equipment: None ?? Current functional status/mobility: Independent ?? Anticipated discharge date: Today, Wednesday 10/11 ?? Anticipated discharge place: Home ?? Anticipated discharge needs: None. Plans to fill Rxs at [facility] ([place], [place]); notified . Clinic [facility] Sotomayor is coordinating home Neupogen injections. ?? Transportation at discharge: Patient plans to call ride when her 11:30am infusion is started. ?? PCP: SOPHY FUNES (General), Future Appointments Date Time Provider Department Center 10/17/2014 4:00 PM ECHO REGULAR MH NI Card None 10/22/2014 6:30 AM [facility] ANGIO/VIR WORKUP Rad Rn None 10/22/2014 7:30 AM ANGIO, VIR TWO MH IR None 10/22/2014 9:00 AM [facility] ANGIO/VIR RECOVERY Rad Rn None 11/04/2014 7:00 AM LABORATORY, TECH [facility] None 11/04/2014 8:00 AM Kimberly Mondragon MD [facility] Hem Onc [facility] 11/04/2014 9:30 AM [facility] INFUSION THERAPY [facility] None Plan: Care Management will continue to monitor progress, follow for continuity of care, and assist with discharge planning. * Consult Note - Hernandez Stanley RN - 10/11/2014 7:19 AM EDT Went to Room 107 for vein assessment of Myriam Vivas for up coming PBSC. Myriam will require a central line for her stem cell collection procedure. She has fair access for return sights but no A.C. Draw sights on either arm. I went over the scenario of I.R. Visit,labs (CD-34) catheter placement,andcoming to [facility] for her collection. Myriam may need reinforcement and encouragement to go through this process. * Plan of Care - Marisol Miner RN - 10/11/2014 6:21 AM EDT Problem: General Plan of Care Goal: Plan of Care Review Outcome: Ongoing (Interventions Implemented as Appropriate) 10/10/14203710/11/14 0555 Plan of Care Review Plan of Care Outcome Status -- ongoing (interventions implemented as appropriate) Progress -- progress toward functional goals as expected Coping/Psychosocial Response Interventions Plan of Care Reviewed with patient -- OUTCOME EVALUATION NOTE: OUTCOME SUMMARY: Day 2 R-DHAP; Continuous Cisplatin completed at 0021; Blood return and site checks per protocol; Cerebellar exam negative and Prednisolone eye drops started prior to first dose of HD Cytarabine at 0022. Baseline weight is 66.1kg, today's weight is 71.3kg-Increased by 5.2kg; IVF discontinued and prnLasix administered; Myriam started to ask more questions about the next step in her treatment (i.e discharge instructions, Neupogen injections at home and stem cell collection); She will be staying with her SO over the weekend and her daughter is coming to stay with her starting next week through her stem cell collection. I gave her a brochure about local accommodations for her pheresis appointment. PLAN MOVING FORWARD: Last dose of HD Cytarabine today at 1130 then discharge home. INDIVIDUALIZED FALL PREVENTION: Assistance: No assistive devices needed; Independent; Supervision: Calling appropriately for nursing assistance as needed; Surveillance: Hourly rounding; Surveillance monitoring; Blood return checks Q4H & site checks Q1H with CIVI Cisplatin; CPG GOAL OUTCOME EVALUATION: Goal: Individualization and Mutuality Outcome: Ongoing (Interventions Implemented as Appropriate) 10/09/141999 Mutuality/Individual Preferences What questions do you have about your health or care? Chemotherapy schedule Goal: Fall Prevention-Safe Patient Handling Outcome: Ongoing (Interventions Implemented as Appropriate) 10/10/14181810/10/142037 Garza Fall Risk History of Falling -- 0 Secondary Diagnosis -- 15 Ambulatory Aids -- 0 Intravenous Therapy/Heparin/Saline Lock -- 20 Gait/Transferring -- 0 Mental Status -- 0 Score -- 35 Activity and Safety Assistive Device Other (iv pole) -- OTHER Garza Fall Risk -- Med Safety Interventions Safety Precautions/Fall Reduction -- chemotherapeutic agent precautions;commode/urinal/bedpan at bedside;environmental modification;fall reduction program maintained;lighting adjusted for task/safety;low bed;nonskid shoes/slippers when out of bed Musculoskeletal Interventions Activity/Level of Assistance -- up ad fernanda;independently Positioning -- independent Goal: Infection Control Outcome: Ongoing (Interventions Implemented as Appropriate) 10/10/142037 Safety Interventions Isolation Precautions other (see comments) Infection Prevention bronchial hygiene promoted;environmental surveillance;nutrition promoted;hydration promoted;promote handwashing;rest/sleep promoted Coping/Psychosocial Response Interventions Counseling emotional support provided;reassurance provided;understanding of situation facilitated;verbalization of feelings encouraged Goal: Discharge Needs Assessment Outcome: Ongoing (Interventions Implemented as Appropriate) 10/11/14 0555 Self-Care Equipment Currently Used at Home none Discharge Needs Assessment Concerns to be Addressed denies needs/concerns at this time Concerns Comments Reinforce Neuogen & Prednisolone eye drops teaching prior to discharge; Review followup appointments; Make sure patient has medication scripts for Zofran & Ativan; Readmission Within the Last 30 Days no previous admission in last 30 days Equipment Needed After Discharge none Current Discharge Risk lives alone Discharge Planning Comments Myriam will be staying with her SO over the weekend after discharge Living Environment Transportation Available family or friend will provide;car Problem: Chemotherapy Effects (Adult) Goal: Signs and symptoms of listed potential problems will be absent or manageable (reference (Chemotherapy Effects (Adult)) CPG) Outcome: Ongoing (Interventions Implemented as Appropriate) 10/11/14 0555 Chemotherapy Effects Problems Assessed (Chemotherapy Effects) all Problems Present (Chemotherapy Effects) none * Plan of Care - Margie Lopez RN - 10/10/2014 5:18 PM EDT Problem: General Plan of Care Goal: Plan of Care Review Outcome: Ongoing (Interventions Implemented as Appropriate) 10/10/14 0517 10/10/14 1000 Plan of Care Review Plan of Care Outcome Status ongoing (interventions implemented as appropriate) -- Progress progress toward functional goals as expected -- Coping/Psychosocial Response Interventions Plan of Care Reviewed with -- patient OUTCOME EVALUATION NOTE: OUTCOME SUMMARY: Day 2 of R-DHAP. Continuous cisplatin infusing. Will complete tonight and HiDAC to start following cisplatin completion. Echocardiogram completed this am. Simethicone ordered for gas pain. Hourly site checks. Blood return checks brisk and normal per LINDA Weems. PLAN MOVING FORWARD: Day 2 HD Cytarabine due 10/10 at 2330 INDIVIDUALIZED FALL PREVENTION: Assistance: Independent Supervision: Calls appropriately for nursing assistance as needed. Surveillance: Hourly rounding; masimo; call martell within reach [facility] GOAL OUTCOME EVALUATION: Goal: Individualization and Mutuality Outcome: Ongoing (Interventions Implemented as Appropriate) 10/09/141999 Mutuality/Individual Preferences What anxieties, fears or concerns do you have about your health or care? None What questions do you have about your health or care? Chemotherapy schedule What information would help us give you more personalized care? None Goal: Fall Prevention-Safe Patient Handling Outcome: Ongoing (Interventions Implemented as Appropriate) 10/10/14 1000 10/10/14 1437 Garza Fall Risk History of Falling 0 -- Secondary Diagnosis 15 -- Ambulatory Aids 0 -- Intravenous Therapy/Heparin/Saline Lock 20 -- Gait/Transferring 0 -- Mental Status 0 -- Score 35 -- Activity and Safety Assistive Device -- Other (iv pole) OTHER Garza Fall Risk Med -- Safety Interventions Safety Precautions/Fall Reduction low bed;muscle strengthening facilitated;nonskid shoes/slippers when out of bed;room near unit station;environmental modification;fall reduction program maintained;lighting adjusted for task/safety -- Musculoskeletal Interventions Activity/Level of Assistance -- up ad fernanda;up in [place];up in room;ambulated;independently Positioning HOB up 30 degrees -- Goal: Infection Control Outcome: Ongoing (Interventions Implemented as Appropriate) 10/10/14 1000 Safety Interventions Isolation Precautions standard precautions maintained Infection Prevention bronchial hygiene promoted;environmental surveillance;hydration promoted;nutrition promoted;promote handwashing;rest/sleep promoted Coping/Psychosocial Response Interventions Counseling verbalization of feelings encouraged;understanding of situation facilitated;relaxation techniques promoted;calming techniques promoted;goal setting facilitated;emotional support provided;personal strengths integrated;problem solving facilitated;reassurance provided Problem: Chemotherapy Effects (Adult) Goal: Signs and symptoms of listed potential problems will be absent or manageable (reference (Chemotherapy Effects (Adult)) [facility]) Outcome: Ongoing (Interventions Implemented as Appropriate) 10/10/14516 Chemotherapy Effects Problems Assessed (Chemotherapy Effects) all Problems Present (Chemotherapy Effects) none * Plan of Care - Marisol Miner RN - 10/10/2014 5:26 AM EDT Problem: General Plan of Care Goal: Plan of Care Review Outcome: Ongoing (Interventions Implemented as Appropriate) 10/09/14199910/10/14516 Plan of Care Review Plan of Care Outcome Status -- ongoing (interventions implemented as appropriate) Progress -- progress toward functional goals as expected Coping/Psychosocial Response Interventions Plan of Care Reviewed with patient -- OUTCOME EVALUATION NOTE: OUTCOME SUMMARY: Day 1 R-DHAP; Rituxan infusion complete, No s/s of reaction; Continuous Cisplatin infusing at 28cc/hr, Blood return and site checks per protocol; Myriam endorses some increased anxiety, headache and GI upset this morning, prn Ativan & Tylenol given x1. PLAN MOVING FORWARD: Day 2 HD Cytarabine due 10/10 at 2330; Confirm echocardiogram to be completed while here with team; INDIVIDUALIZED FALL PREVENTION: Assistance: No assistive devices needed; Independent; Supervision: Calls appropriately for nursing assistance as needed; Surveillance: Hourly rounding; Surveillance monitoring; Blood return checks Q4H; Site checks Q1H; [facility] GOAL OUTCOME EVALUATION: Goal: Individualization and Mutuality Outcome: Ongoing (Interventions Implemented as Appropriate) 10/09/141999 Mutuality/Individual Preferences What anxieties, fears or concerns do you have about your health or care? None What questions do you have about your health or care? Chemotherapy schedule What information would help us give you more personalized care? None Goal: Fall Prevention-Safe Patient Handling Outcome: Ongoing (Interventions Implemented as Appropriate) 10/09/14199910/09/142000 Garza Fall Risk History of Falling -- 0 Secondary Diagnosis -- 15 Ambulatory Aids -- 0 Intravenous Therapy/Heparin/Saline Lock -- 20 Gait/Transferring -- 0 Mental Status -- 0 Score -- 35 OTHER Garza Fall Risk -- Med Safety Interventions Safety Precautions/Fall Reduction chemotherapeutic agent precautions;environmental modification;fall reduction program maintained;lighting adjusted for task/safety;low bed;nonskid shoes/slippers when out of bed -- Musculoskeletal Interventions Activity/Level of Assistance up ad fernanda;independently -- Positioning independent -- Goal: Infection Control Outcome: Ongoing (Interventions Implemented as Appropriate) 10/09/141999 Safety Interventions Isolation Precautions standard precautions maintained Infection Prevention bronchial hygiene promoted;environmental surveillance;hydration promoted;nutrition promoted;promote handwashing;rest/sleep promoted Coping/Psychosocial Response Interventions Counseling verbalization of feelings encouraged Problem: Chemotherapy Effects (Adult) Goal: Signs and symptoms of listed potential problems will be absent or manageable (reference (Chemotherapy Effects (Adult)) [facility]) Outcome: Ongoing (Interventions Implemented as Appropriate) 10/10/14 0517 Chemotherapy Effects Problems Assessed (Chemotherapy Effects) all Problems Present (Chemotherapy Effects) none documented in this encounter Plan of Treatment Upcoming Encounters Date Type Department Care Team (Late st Contact Info) Description 12/07/2023 12:00 PM EDT Office Visit Dermatology at [address] [id number] Juan F Chappell MD [facility] DR RANDE[place] [address] documented as of this encounter Procedures Procedure Name Priority Date/Time Associated Diagnosis Comments INFECTIOUS DISEASE SERO PANEL Routine 10/11/2014 7:51 AM EDT HEMOGRAM Routine 10/11/2014 3:50 AM EDT Lymphoma DIFFERENTIAL, AUTOMATED Routine 10/12/19 3:50 AM EDT Lymphoma CBC (WITH DIFF) Routine 10/11/2014 3:50 AM EDT Lymphoma URIC ACID Routine 10/11/2014 3:50 AM EDT Lymphoma PHOSPHORUS Routine 10/11/2014 3:50 AM EDT Lymphoma MAGNESIUM Routine 10/11/2014 3:50 AM EDT LACTATE DEHYDROGENASE Routine 10/11/2014 3:50 AM EDT COMPREHENSIVE METABOLIC PANEL Routine 10/11/2014 3:50 AM EDT Lymphoma URIC ACID Routine 10/10/2014 4:30 PM EDT Lymphoma PHOSPHORUS Routine 10/10/2014 4:30 PM EDT Lymphoma COMPREHENSIVE METABOLIC PANEL Routine 10/10/2014 4:30 PM EDT Lymphoma ECHOCARDIOGRAM TRANSTHORACIC Routine 10/10/2014 12:54 PM EDT Lymphoma HEMOGRAM Routine 10/10/2014 4:25 AM EDT Lymphoma DIFFERENTIAL, AUTOMATED Routine 10/11/19 15 4:25 AM EDT Lymphoma CBC (WITH DIFF) Routine 10/10/2014 4:25 AM EDT Lymphoma URIC ACID Routine 10/10/2014 4:25 AM EDT PHOSPHORUS Routine 10/10/2014 4:25 AM EDT MAGNESIUM Routine 10/10/2014 4:25 AM EDT Lymphoma LACTATE DEHYDROGENASE Routine 10/10/2014 4:25 AM EDT Lymphoma COMPREHENSIVE METABOLIC PANEL Routine 10/10/2014 4:25 AM EDT documented in this encounter Results * Infectious Disease Sero Panel (10/11/2014 7:51 AM EDT) Sero Panel Patient: Myriam Vivas Date of : 1950 Identification Number: [id number] Date Sample Drawn: 10/11/2014 The following serological tests were performed: ABO/Rh [...] ? [Ref Value: Negative] Syphilis Serology = Non-Reactive ? [Ref Value: Non-reactive] West Nile Virus GLENN = Negative ? [Ref Value: Negative] Chagas Antibody = Negative ? [Ref Value: Negative] CMV Antibody = Negative ?[Ref Value: Negative] All testing was performed by: [facility] [id number] [place] [address] CLIA ID Number: [id number] GIBRAN COREAS Blood specimen (specimen) Other / Unknown 10/11/2014 7:51 AM EDT 10/11/2014 7:51 AM EDT Narrative Resulting Agency Comment Spec In Lab Kimberly Mondragon MD BLOOD BANK LAB O RDERABLES GIBRAN COREAS * (ABNORMAL) Magnesium (10/11/2014 3:50 AM EDT) Magnesium 0.67(L) 0.69 - 1.07 mmol/L GIBRAN COREAS Blood specimen (specimen) Venous Draw / Unknown 10/11/2014 3:50 AM EDT 10/11/2014 4:23 AM EDT Narrative Resulting Agency Comment Spec In Lab Kimberly Mondragon MD CHEMISTRY ORDERA BLES CERNER DEWAYNEENNIUM * Lactate Dehydrogenase (10/11/2014 3:50 AM EDT) Lactate Dehydrogenase 184 110 - 220 unit/L CERNER MILLENNIUM Blood specimen (specimen) Venous Draw / Unknown 10/11/2014 3:50 AM EDT 10/11/2014 4:23 AM EDT Narrative Resulting Agency Comment Spec In Lab Kimberly Mondragon MD CHEMISTRY ORDERA BLES Performing Organization Address [facility] Co de Phone Number CERNER MILLENNIUM * (ABNORMAL) Differential, Automated (10/11/2014 3:50 AM EDT) Neutrophil % 89.9 % CERNER MILLENNIUM Neutrophil Absolute 6.39(H) 1.50 - 6.30 x10(3)/mc L CERNER MILLENNIUM Lymph % 5.9 % CERNER MILLENNIUM Lymphocytes Abs 0.4(L) 1.0 - 3.6 x10(3)/mc L CERNER MILLENNIUM Monocyte % 4.1 % CERNER MILLENNIUM Monocyte Abs 0.3 0.2 - 1.0 x10(3)/mc L CERNER MILLENNIUM Eos % 0.1 % CERNER MILLENNIUM Eosinophils Abs 0.0 0.0 [...] x10(3)/mc L CERNER MILLENNIUM Blood specimen (specimen) 10/11/2014 3:50 AM EDT 10/11/2014 4:23 AM EDT Narrative Resulting Agency Comment Spec In Lab Kimberly Mondragon MD HEMATOLOGY ORDER AYO CERNER MILLENNIUM * (ABNORMAL) Hemogram (10/11/2014 3:50 AM EDT) White Blood Cell 7.1 4.0 - 10.0 x10(3)/mc L CERNER MILLENNIUM Red Blood Cell 3.02(L) 3.93 - 5.22 x10(6)/mc L CERNER MILLENNIUM Hemoglobin 9.5(L) 11.2 - 15.7 gm/dL CERNER MILLENNIUM Hematocrit 27.9(L) 34.0 - 45.0 % CERNER MILLENNIUM Mean Cell Volume 92.4 79.0 - 94.0 fL CERNER MILLENNIUM Mean Cell Hemoglobin 31.5 26.6 - 32.2 pg CERNER MILLENNIUM Mean Cell Hemoglobin Concentration 34.1 32.0 - 36.5 gm/dL CERNER MILLENNIUM Platelet 147 145 - 370 x10(3)/mc L CERNER MILLENNIUM RDW Standard Deviation 40.1 35.0 - 46.0 fL CERNER MILLENNIUM RDW coefficient of variation 11.8 10.9 - 14.4 % CERNER MILLENNIUM Mean Platelet Volume 9.3 9.0 - 12.0 fL CERNER MILLENNIUM Blood specimen (specimen) 10/11/2014 3:50 AM EDT 10/11/2014 4:23 AM EDT Narrative Resulting Agency Comment Spec In Lab Kimberly Mondragon MD HEMATOLOGY ORDER AYO CERDANIA BUCHANANENNIUM * (ABNORMAL) Uric acid (10/11/2014 3:50 AM EDT) Uric Acid 2.2(L) 2.5 - 6.5 mg/dL CERNER MILLENNIUM Blood specimen (specimen) 10/11/2014 3:50 AM EDT 10/11/2014 4:23 AM EDT Narrative Resulting Agency Comment Spec In Lab Kimberly Mondragon MD CHEMISTRY ORDERA BLES CERNER MILLENNIUM * Phosphorus (10/11/2014 3:50 AM EDT) Phosphorus 3.7 2.5 - 4.5 mg/dL CERNER MILLENNIUM Comment:result rechecked-[facility] Blood specimen (specimen) 10/11/2014 3:50 AM EDT 10/11/2014 4:23 AM EDT Narrative Resulting Agency Comment Spec In Lab Kimberly Mondragon MD CHEMISTRY ORDERA BLES Performing Organization Address City/[facility]/ZIP Co de Phone Number CERNER MILLENNIUM * (ABNORMAL) Comprehensive metabolic panel (non-fasting) (10/11/2014 3:50 AM EDT) Glucose 124 65 - 199 mg/dL CERNER MILLENNIUM Comment:Diabetes: >=200 mg/d L plus symptoms Blood Urea Nitrogen 15 8 - 18 mg/dL CERNER MILLENNIUM Creatinine 0.60(L) 0.70 - 1.20 mg/dL [...] Laboratory if there are any questions. Chloride 108(H) 98 - 107 mmol/L CERNER MILLENNIUM Carbon Dioxide 25 22 - 31 mmol/L CERNER MILLENNIUM Anion Gap 11 5 - 15 mmol/L CERNER MILLENNIUM Calcium 8.4(L) 8.5 - 10.5 mg/dL CERNER MILLENNIUM Protein, Total 5.1(L) 6.1 - 8.0 gm/dL CERNER MILLENNIUM Albumin 3.5 3.2 - 5.2 gm/dL CERNER MILLENNIUM Aspartate Aminotransferase 76(H) 0 - 30 unit/L CERNER MILLENNIUM Alanine Aminotransferase 98(H) 0 - 30 unit/L CERNER MILLENNIUM Alkaline Phosphatase 86 40 - 104 unit/L CERNER MILLENNIUM Bilirubin, [...] the following links into your internet browser. [email or web address] Blood specimen (specimen) 10/11/2014 3:50 AM EDT 10/11/2014 4:23 AM EDT Narrative Resulting Agency Comment Spec In Lab Kimberly Mondragon MD CHEMISTRY ORDERA BLES CERDANIA MILLENNIUM * (ABNORMAL) Uric acid (10/10/2014 4:30 PM EDT) Uric Acid 2.1(L) 2.5 - 6.5 mg/dL CERNER MILLENNIUM Blood specimen (specimen) 10/10/2014 4:30 PM EDT 10/10/2014 4:42 PM EDT Narrative Resulting Agency Comment Spec In Lab Kimberly Mondragon MD CHEMISTRY ORDERA BLES CERNER MILLENNIUM * (ABNORMAL) Phosphorus (10/10/2014 4:30 PM EDT) Phosphorus 1.8(L) 2.5 - 4.5 mg/dL CERNER MILLENNIUM Blood specimen (specimen) 10/10/2014 4:30 PM EDT 10/10/2014 4:42 PM EDT Narrative Resulting Agency Comment Spec In Lab Kimberly Mondragon MD CHEMISTRY ORDERA BLES Performing Organization Address City/[facility]/ZIP Co de Phone Number CERNER MILLENNIUM * (ABNORMAL) Comprehensive metabolic panel (non-fasting) (10/10/2014 4:30 PM EDT) Glucose 133 65 - 199 mg/dL CERNER MILLENNIUM Comment:Diabetes: >=200 mg/d L plus symptoms Blood Urea Nitrogen 13 8 - 18 mg/dL CERNER MILLENNIUM Creatinine 0.61(L) 0.70 - 1.20 mg/dL CERNER MILLENNIUM Comment: [...] 8.8 8.5 - 10.5 mg/dL CERNER MILLENNIUM Protein, Total 5.8(L) 6.1 - 8.0 gm/dL CERNER MILLENNIUM Albumin 3.8 3.2 - 5.2 gm/dL CERNER MILLENNIUM Aspartate Aminotransferase 47(H) 0 - 30 unit/L CERNER MILLENNIUM Alanine Aminotransferase 58(H) 0 - 30 unit/L CERNER MILLENNIUM Alkaline Phosphatase 100 40 - 104 unit/L CERNER MILLENNIUM Bilirubin, [...] the following links into your internet browser. [email or web address] Blood specimen (specimen) 10/10/2014 4:30 PM EDT 10/10/2014 4:42 PM EDT Narrative Resulting Agency Comment Spec In Lab Kimberly Mondragon MD CHEMISTRY NICK RAM GIBRAN COREAS * Echocardiogram Transthoracic(Leb) (10/10/2014 12:54 PM EDT) EF 69 HEARTLAB SYSTEM Anatomical Region Laterality Modality Other 10/10/2014 Narrative 10/10/2014 1:57 PM EDT Procedure: ?Transthoracic Echocardiogram Patient: ?AP Campuzano ? (Age): 1950(64y) Med Rec#: ? [id number] ?Sex: ?F ? [place] [facility]Ht / Wt: ??157(cm)/68(kg) Pt. Loc: ?Adult Floor ? BSA: ?1.69 Study Date: ?? 10/10/2014 ?Pt. Type: Inpatient Tape: ? 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 Lymphoma Rhythm: ? Sinus BP: ? 92/62 HR: ? 78 SUMMARY: 1. The left ventricular chamber size is normal. ??Left ventricular wall thickness is normal. ??There is normal global left ventricular systolic function. Global longitudinal systolic strain is normal at -20%. ??The quantitative left ventricular ejection fraction by biplane Gallardo's method is 69%. ??There are no left ventricular segmental wall motion abnormalities. 2. Right ventricular chamber size, wall thickness, and systolic function are within normal limits. ??The estimated pulmonary artery systolic pressure is 20 mmHg. 3. There is no hemodynamically significant valve disease. 4. See remainder of report for additional findings. FINDINGS: ? Left Ventricle ?The left ventricular chamber size is normal. ?Left ventricular wall thickness is normal. ?There is normal global left ventricular systolic function. GLS -20%. ?The quantitative left ventricular ejection fraction by biplane Gallardo's method is 69%. ?There are no left ventricular segmental wall motion abnormalities. ?Doppler assessment is consistent with normal left sided filling pressure. Left Atrium ?The left atrium is moderately dilated. 44 ml/m2. Right Ventricle ?Right ventricular chamber size, wall thickness, and systolic function are within normal limits. ?The estimated pulmonary artery systolic pressure is 20 mmHg. Right Atrium ?The right atrium is normal in size. Aortic Valve ?The aortic valve is trileaflet. The leaflets are thin with normal excursion. There is no aortic stenosis or regurgitation present. Mitral Valve ?The mitral valve leaflets are mildly thickened. ?There is mild (1+/4+) mitral regurgitation present. Tricuspid Valve ?The tricuspid [...] echo, spectral Doppler and color Doppler performed. ?JOSE LUIS performed Chambers 2D ?Value ?Units (Range) ? IVSd (2D) ? 0.9 ?cm ? LVPWd (2D) ?0.9 ?cm ? IVS:LVPW ratio (2D) 1.1 ?ratio ? LVIDd (2D) ?4.4 ?cm ? LVIDs (2D) ?3 ?cm ? LVIDd (2D) index ?2.6 ?cm/m2 ? LVIDs (2D) index ?1.8 ?cm/m2 ? LV FS (2D) ?32 ? % ? EF Teichholz (2D) ?? 60 ? % ? Ao root diameter (2D2.8 ?cm (2.1 - 3.6) ? Ascending Ao ?3 ?cm (2 - 3.5) ? Volumes/Mass ?Value ?Units (Range) ? LA Area 4 CH ?23 ? cm2 (<21) ? LA ESV SP 4CH (A/L) 75.9 ? ml ? LA ESV SP 2CH (A/L) 64 ? ml ? LA ESV BP (A/L) ? 74.2 ? ml ? LA ESV BP (A/L) inde43.9 ? ml/m2 ? RA AREA 4CH ? 14 ? cm2 ? LA ESV SP 4CH (MOD) 71 ? ml ? LA ESV SP 2CH (MOD) 61.8 ? ml ? LA ESV BP (MOD) inde44 ? ml/m2 ? LV EDV SP 4CH (MOD) 88.2 ? ml ? LV ESV SP 4CH (MOD) 23.8 ? ml ? EF SP 4CH (MOD) ? 73 ? % ? LV EDV SP 2CH (MOD) 84.7 ? ml ? LV ESV SP 2CH (MOD) 28.7 ? ml ? EF SP 2CH (MOD) ? 66 ? % ? LV EDV BP ? 86.3 ? ml ? LV ESV BP ? 26.7 ? ml ? BP EF (MOD) ? 69 ? % ? LV mass (2D) ?125.4 ?g ? LV mass (2D) index ??74.2 ? g/m2 ? Diastolic/Systolic Function ?Value ?Units (Range) ? MV E-wave Vmax ?0.9 ?m/sec ? MV deceleration aopz650.4 ?msec ? MV A-wave Vmax ?0.9 ?m/sec ? MV E:A ratio ?1 ?ratio ? LV septal e' Vmax ?? 0.1 ?m/sec ? LV E:e' septal ratio9.7 ?ratio ? Tricuspid Valve ?Value ?Units (Range) ? TR Vmax ? 2.1 ?m/sec ? TR peak gradient ?17 ? mmHg ? RAP ? 3 ?mmHg ? RVSP ?20 ? mmHg ? Measurement Trending Name ? 10/10/2014 ? LV EDV BP ?86.3399 LVIDd (2D) ? 4.80370307 LV ESV BP ?26.7418 LVIDs (2D) ? 2.14655011 LA ESV BP (A/L) ?40.4779 Wall Motion: Segment Name ?Rest ? Base-Anteroseptal ?? Normal ? Base-Anterior ? Normal ? Base-Anterolateral ??Normal ? Base-Posterolateral Normal ? Base-Inferior ? Normal ? Base-Inferoseptal ?? Normal ? Mid-Anteroseptal ?Normal ? Mid-Anterior ?Normal ? Mid-Anterolateral ?? Normal ? Mid-Posterolateral ??Normal ? Mid-Inferior ?Normal ? Mid-Inferoseptal ?Normal ? [place]-Septal ? Normal ? [place]-Anterior ? Normal ? [place]-Lateral ?Normal ? [place]-Inferior ? Normal ? [place]-Tip ?Normal ? This report has been electronically signed by: Bora Delaney. ? 10/10/2014 13:57:19 Images reviewed and interpretation verified [facility] Cardiac Ultrasound Laboratory Procedure Note Bora Delaney MD - 10/10/2014 Procedure: Transthoracic Echocardiogram Patient: AP Campuzano (Age): 1950(64y) Med Rec#: [id number] Sex: F [place] [facility] [place]t / Wt: 157(cm)/68(kg) Pt. Loc: Adult Floor BSA: 1.69 Study Date: 10/10/2014 Pt. 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 The left ventricular chamber size is normal. Left ventricular wall thickness is normal. There is normal global left ventricular systolic function. Global longitudinal systolic strain is normal at -20%. The quantitative left ventricular ejection fraction by biplane Gallardo's method is 69%. There are no left ventricular segmental wall motion abnormalities. 2. Right ventricular chamber size, wall thickness, and systolic function are within normal limits. The estimated pulmonary artery systolic pressure is 20 mmHg. 3. There is no hemodynamically significant valve disease. 4. See remainder of report for additional findings. FINDINGS: Left Ventricle The left ventricular chamber size is normal. Left ventricular wall thickness is normal. There is normal global left ventricular systolic function. GLS -20%. The quantitative left ventricular ejection fraction by biplane Gallardo's method is 69%. There are no left ventricular segmental wall motion abnormalities. Doppler assessment is consistent with normal left sided filling pressure. Left Atrium The left atrium is moderately dilated. 44 ml/m2. Right Ventricle Right ventricular chamber size, wall thickness, and systolic function are within normal limits. The estimated pulmonary artery systolic pressure is 20 mmHg. Right Atrium The right atrium is normal in size. Aortic Valve The aortic valve is trileaflet. The leaflets are thin with normal excursion. There is no aortic stenosis or regurgitation present. Mitral Valve The mitral valve leaflets are mildly thickened. There is mild (1+/4+) mitral regurgitation present. Tricuspid Valve The tricuspid [...] echo, spectral Doppler and color Doppler performed. JOSE LUIS performed Chambers 2D Value Units (Range) IVSd (2D) 0.9 cm LVPWd (2D) 0.9 cm IVS:LVPW ratio (2D) 1.1 ratio LVIDd (2D) 4.4 cm LVIDs (2D) 3 cm LVIDd (2D) index 2.6 cm/m2 LVIDs (2D) index 1.8 cm/m2 LV FS (2D) 32 % EF Teichholz (2D) 60 % Ao root diameter (2D2.8 cm (2.1 - 3.6) Ascending Ao 3 cm (2 - 3.5) Volumes/Mass Value Units (Range) LA Area 4 CH 23 cm2 (<21) LA ESV SP 4CH (A/L) 75.9 ml LA ESV SP 2CH (A/L) 64 ml LA ESV BP (A/L) 74.2 ml LA ESV BP (A/L) inde43.9 ml/m2 RA AREA 4CH 14 cm2 LA ESV SP 4CH (MOD) 71 ml LA ESV SP 2CH (MOD) 61.8 ml LA ESV BP (MOD) inde44 ml/m2 LV EDV SP 4CH (MOD) 88.2 ml LV ESV SP 4CH (MOD) 23.8 ml EF SP 4CH (MOD) 73 % LV EDV SP 2CH (MOD) 84.7 ml LV ESV SP 2CH (MOD) 28.7 ml EF SP 2CH (MOD) 66 % LV EDV BP 86.3 ml LV ESV BP 26.7 ml BP EF (MOD) 69 % LV mass (2D) 125.4 g LV mass (2D) index 74.2 g/m2 Diastolic/Systolic Function Value Units (Range) MV E-wave Vmax 0.9 m/sec MV deceleration dlis131.4 msec MV A-wave Vmax 0.9 m/sec MV E:A ratio 1 ratio LV septal e' Vmax 0.1 m/sec LV E:e' septal ratio9.7 ratio Tricuspid Valve Value Units (Range) TR Vmax 2.1 m/sec TR peak gradient 17 mmHg RAP 3 mmHg RVSP 20 mmHg Measurement Trending Name 10/10/2014 LV EDV BP 86.3399 LVIDd (2D) 4.14262442 LV ESV BP 26.7418 LVIDs (2D) 2.33734648 LA ESV BP (A/L) 74.1849 Wall Motion: Segment Name Rest Base-Anteroseptal Normal Base-Anterior Normal Base-Anterolateral Normal Base-Posterolateral Normal Base-Inferior Normal Base-Inferoseptal Normal Mid-Anteroseptal Normal Mid-Anterior Normal Mid-Anterolateral Normal Mid-Posterolateral Normal Mid-Inferior Normal Mid-Inferoseptal Normal [place]-Septal Normal [place]-Anterior Normal [place]-Lateral Normal [place]-Inferior Normal [place]-Tip Normal This report has been electronically signed by: Bora Delaney 10/10/2014 13:57:19 Images reviewed and interpretation verified [facility] Cardiac Ultrasound Laboratory Kimberly Mondragon MD ECHO ORDERABLES * Uric acid (10/10/2014 4:25 AM EDT) [facility] Uric Acid 2.6 2.5 - 6.5 mg/dL [facility] Blood specimen (specimen) Venous Draw / Unknown 10/10/2014 4:25 AM EDT 10/10/2014 5:10 AM EDT Narrative Resulting Agency Comment Spec In Lab Kimberly Mondragon MD CHEMISTRY ORDERA BLES [facility] * Phosphorus (10/10/2014 4:25 AM EDT) Phosphorus 3.0 2.5 - 4.5 mg/dL CERNER MILLENNIUM Blood specimen (specimen) Venous Draw / Unknown 10/10/2014 4:25 AM EDT 10/10/2014 5:10 AM EDT Narrative Resulting Agency Comment Spec In Lab Kimberly Mondragon MD CHEMISTRY ORDERA BLES CERNER MILLENNIUM * (ABNORMAL) Comprehensive metabolic panel (non-fasting) (10/10/2014 4:25 AM EDT) Glucose 147 65 - 199 mg/dL CERNER MILLENNIUM Comment:Diabetes: >=200 mg/d L plus symptoms Blood Urea Nitrogen 17 8 - 18 mg/dL CERNER MILLENNIUM Creatinine 0.62(L) 0.70 - 1.20 mg/dL CERNER MILLENNIUM Comment: Please note that the pediatric reference intervals supplied above were not validated [place] [facility] Results from pediatric patients should be interpreted in conjunction to the patient's age, height and muscle mass. Sodium 143 135 - 145 mmol/L CERNER MILLENNIUM Potassium 4.0 3.5 - 5.0 mmol/L CERNER MILLENNIUM Comment: Please note: ??Patients with WBC >100,000 may have falsely elevated Potassium levels. ??For accurate Potassium quantification in these patients send serum separator tube (gold top) for subsequent determinations. ??Contact the Clinical Chemistry Laboratory if there are any questions. Chloride 106 98 - 107 mmol/L CERNER MILLENNIUM Carbon Dioxide Not Perf 22 - 31 mmol/L CERNER MILLENNIUM Comment:Add-on request. Samp le too old to perform test. Anion Gap Unable to Calculate 5 - 15 mmol/L CERNER MILLENNIUM Calcium 9.1 8.5 - 10.5 mg/dL CERNER MILLENNIUM Protein, Total 6.2 6.1 - 8.0 gm/dL CERNER MILLENNIUM Albumin 4.0 3.2 - 5.2 gm/dL CERNER MILLENNIUM Aspartate Aminotransferase 34(H) 0 - 30 unit/L CERNER MILLENNIUM Alanine Aminotransferase 40(H) 0 - 30 unit/L CERNER MILLENNIUM Alkaline Phosphatase 105(H) 40 - 104 unit/L CERNER MILLENNIUM Bilirubin, [...] the following links into your internet browser. [email or web address] Blood specimen (specimen) Venous Draw / Unknown 10/10/2014 4:25 AM EDT 10/10/2014 5:10 AM EDT Narrative Resulting Agency Comment Spec In Lab Kimberly Mondragon MD CHEMISTRY ORDERA BLES CERNER MILLENNIUM * (ABNORMAL) Differential, Automated (10/10/2014 4:25 AM EDT) Neutrophil % 93.3 % CERNER MILLENNIUM Neutrophil Absolute 4.71 1.50 - 6.30 x10(3)/mc L CERNER MILLENNIUM Lymph % 5.5 % CERNER MILLENNIUM Lymphocytes Abs 0.3(L) 1.0 - 3.6 x10(3)/mc L CERNER MILLENNIUM Monocyte % 0.8 % CERNER MILLENNIUM Monocyte Abs 0.0(L) 0.2 [...] x10(3)/mc L CERNER MILLENNIUM Blood specimen (specimen) 10/10/2014 4:25 AM EDT 10/10/2014 5:09 AM EDT Narrative Resulting Agency Comment Spec In Lab Kimberly Mondragon MD HEMATOLOGY ORDER AYO CERNER MILLENNIUM * (ABNORMAL) Hemogram (10/10/2014 4:25 AM EDT) White Blood Cell 5.0 4.0 - 10.0 x10(3)/mc L CERNER MILLENNIUM Red Blood Cell 3.53(L) 3.93 - 5.22 x10(6)/mc L CERNER MILLENNIUM Hemoglobin 11.3 11.2 - 15.7 gm/dL CERNER MILLENNIUM Hematocrit 32.4(L) 34.0 - 45.0 % CERNER MILLENNIUM Mean Cell Volume 91.8 79.0 - 94.0 fL CERNER MILLENNIUM Mean Cell Hemoglobin 32.0 26.6 - 32.2 pg CERNER MILLENNIUM Mean Cell Hemoglobin Concentration 34.9 32.0 - 36.5 gm/dL CERNER MILLENNIUM Platelet 208 145 - 370 x10(3)/mc L CERNER MILLENNIUM RDW Standard Deviation 39.2 35.0 - 46.0 fL CERNER MILLENNIUM RDW coefficient of variation 11.7 10.9 - 14.4 % CERNER MILLENNIUM Mean Platelet Volume 9.3 9.0 - 12.0 fL CERNER MILLENNIUM Blood specimen (specimen) 10/10/2014 4:25 AM EDT 10/10/2014 5:09 AM EDT Narrative Resulting Agency Comment Spec In Lab Kimberly Mondragon MD HEMATOLOGY ORDER AYO Performing Organization Address City/[facility] Co de Phone Number GIBRAN COREAS * Magnesium (10/10/2014 4:25 AM EDT) Magnesium 0.73 0.69 - 1.07 mmol/L [facility] Blood specimen (specimen) 10/10/2014 4:25 AM EDT 10/10/2014 5:09 AM EDT Narrative Resulting Agency Comment Spec In Lab Kimberly Mondragon MD CHEMISTRY ORDERA BLES Performing Organization Address [facility] Co de Phone Number GIBRAN COREAS * Lactate Dehydrogenase (10/10/2014 4:25 AM EDT) Lactate Dehydrogenase 179 110 - 220 unit/L [facility] Blood specimen (specimen) 10/10/2014 4:25 AM EDT 10/10/2014 5:09 AM EDT Narrative Resulting Agency Comment Spec In Lab Kimberly Mondragon MD CHEMISTRY ORDERA BLES Performing Organization Address [facility] Co de Phone Number GIBRAN COREAS documented in this encounter Visit Diagnoses Diagnosis Lymphoma- Primary Other malignant lymphomas, unspecified site, extranodal and solid organ sites Lymphoma Other malignant lymphomas, unspecified site, extranodal and solid organ sites Depression with anxiety Dysthymic disorder documented in this encounter Administered Medications Inactive Administered Medications - up to 3 most recent administrations Medication Order MAR Action Action Date Dose Rate Site acetaminophen (TYLENOL) tablet 650 mg 650 mg, Oral, EVERY 4 HOURS PRN, Starting on Tue10/09/14 at 1654, Until Tue10/11/14 at 1731, Pain, Maximum dose of acetaminophen is 4000 mg from all sources in 24 hours., Routine Given 10/10/2014 4:35 AM EDT 650 mg acetaminophen (TYLENOL) tablet 650 mg 650 mg, Oral, ONCE, 1 dose, On Tue10/09/14 at 1730, Administer prior to riTUXimab., Routine Given 10/09/2014 5:54 PM EDT 650 mg calcium carbonate (TUMS) chewable tablet 500 mg 500 mg, Oral, DAILY, First dose on Tue10/10/14 at 0900, Until Discontinued, Routine Given 10/11/2014 8:16 AM EDT 500 mg Given 10/10/2014 10:05 AM EDT 500 mg cholecalciferol (Vitamin D3) tablet 400 Units 400 Units, Oral, DAILY, First dose on Tue10/09/14 at 2000, Until Discontinued, Routine Given 10/11/2014 8:16 AM EDT 400 Units Given 10/10/2014 10:06 AM EDT 400 Units CISplatin (PLATINOL) 172 mg in sodium chloride 0.9% 672 mL chemo infusion 172 mg (100 mg/m2/dose ? 1.72 m2 Treatment Plan BSA from Recorded weight), Intravenous, ONCE, 1 dose, On Tue10/09/14 at 2330, Administer over 24 Hours New Bag 10/09/2014 11:38 PM EDT 172 mg 28 mL/hr cytarabine (PF) (CYTOSAR) 3,440 mg in sodium chloride 0.9% 284.4 mL chemo infusion 3,440 mg (2,000 mg/m2/dose ? 1.72 m2 Treatment Plan BSA from Recorded weight), Intravenous, EVERY 12 HOURS, 2 doses, First dose on Tue10/10/14 at 2330, Last dose on Tue10/11/14 at 1130, Administer over 3 Hours, Evaluate patient for cerebellar toxicity prior to each dose of Cytarabine. If noted, hold dose and contact physician. Place 2 drops of Prednisolone 1% in each eye every 6 hours beginning prior to the first dose of cytarabine and continuing for 48 hours after the last dose of cytarabine. New Bag 10/11/2014 11:46 AM EDT 3,440 mg 94.8 mL/hr New Bag 10/11/2014 12:22 AM EDT 3,440 mg 94.8 mL/hr dexamethasone (DECADRON) 40 mg in sodium chloride 0.9% 60 mL 40 mg, Intravenous, EVERY 24 HOURS, 4 doses, First dose on Tue10/09/14 at 1730, Last dose on Tue10/12/14 at 1000, Administer over 30 Minutes, Schedule dexamethasone pre-riTUXimab on day 1. Given 10/11/2014 10:39 AM EDT 40 mg 120 mL/hr Given 10/10/2014 10:08 AM EDT 40 mg 120 mL/hr Given 10/09/2014 6:14 PM EDT 40 mg 120 mL/hr diphenhydrAMINE (BENADRYL) injection 50 mg 50 mg, Intravenous, ONCE, 1 dose, On Tue10/09/14 at 1730, Administer prior to riTUXimab., Routine Given 10/09/2014 5:54 PM EDT 50 mg docusate sodium (COLACE) capsule 100 mg 100 mg, Oral, 2 TIMES DAILY, First dose on Tue10/09/14 at 2100, Until Discontinued, Routine Given 10/10/2014 9:12 PM EDT 100 mg Given 10/10/2014 10:07 AM EDT 100 mg Given 10/09/2014 8:43 PM EDT 100 mg escitalopram oxalate (LEXAPRO) tablet 10 mg 10 mg, Oral, DAILY, First dose on Tue10/10/14 at 0900, Until Discontinued, Routine Given 10/11/2014 8:16 AM EDT 10 mg Given 10/10/2014 10:06 AM EDT 10 mg fosaprepitant (EMEND) 150 mg in sodium chloride 0.9% 155 mL infusion 150 mg, Intravenous, ONCE, 1 dose, On Tue10/09/14 at 2230, Administer over 30 Minutes, Administer prior to Cisplatin on day 1. New Bag 10/09/2014 10:08 PM EDT 150 mg 310 mL/hr furosemide (LASIX) injection 20 mg 20 mg, Intravenous, DAILY PRN, Starting on Tue10/09/14 at 1659, Until Tue10/11/14 at 1731, for weight gain greater than 2 kg above??baseline admission weight Given 10/11/2014 6:48 AM EDT 20 mg lidocaine (XYLOCAINE) 10 mg/mL (1 %) injection 1 dose, Starting on Tue10/09/14 at 1716, Until Tue10/09/14 at 1700, CARLOS LARIOS: cabinet override Given 10/09/2014 5:00 PM EDT 1 mg 12- Chest (Right) LORazepam (ATIVAN) injection 0.5 mg 0.5 mg, Intravenous, EVERY 4 HOURS PRN, Starting on Tue10/09/14 at 1659, Until Tue10/11/14 at 1731, Anxiety, Nausea, Vomiting, If multiple antiemetics are ordered, use in the following sequence: Ondansetron>Prochlorperaz ine or Promethazine>Lorazepam>Me toclopramide, Routine Given 10/10/2014 4:35 AM EDT 0.5 mg LORazepam (ATIVAN) tablet 0.5-1 mg 0.5-1 mg, Oral, EVERY 6 HOURS PRN, Starting on Tue10/10/14 at 0932, Until Tue10/11/14 at 1731, Anxiety, Insomnia, Routine Given 10/11/2014 8:20 AM EDT 0.5 mg Given 10/10/2014 9:12 PM EDT 1 mg magnesium sulfate 2 g in sterile water 50 mL 2 g, Intravenous, ONCE, 1 dose, On Tue10/11/14 at 1145, Administer over 120 Minutes Given 10/11/2014 12:45 PM EDT 2 g 25 mL/hr ondansetron (ZOFRAN) tablet 16 mg 16 mg, Oral, EVERY 12 HOURS, 4 doses, First dose on Tue10/09/14 at 2230, Last dose on Tue10/11/14 at 1030, Administer prior to CISplatin on day 1., Routine Given 10/11/2014 10:39 AM EDT 16 mg Given 10/10/2014 11:26 PM EDT 16 mg Given 10/10/2014 10:40 AM EDT 16 mg potassium phosphate 15 mMol in sodium chloride 0.9% 250 mL 15 mmol, Intravenous, ONCE, 1 dose, On Tue10/10/14 at 2200, Administer over 4 Hours, Administer over 4-6 hours Given 10/10/2014 9:39 PM EDT 15 mmol 62.5 mL/hr prednisoLONE acetate (PRED FORTE) 1 % ophthalmic suspension 2 drop 2 drop, Both Eyes, EVERY 6 HOURS, First dose on Tue10/10/14 at 2330, Until Discontinued, Instill in each eye beginning prior to the first dose of cytarabine and continuing for 48 hours after last dose of cytarabine. Please discontinue eye drops 48 hours after the last dose of cytarabine., Routine Given 10/11/2014 11:46 AM EDT 2 drops Given 10/11/2014 5:19 AM EDT 2 drops Given 10/10/2014 11:26 PM EDT 2 drops riTUXimab (RITUXAN) 700 mg in sodium chloride 0.9% 350 mL infusion 700 mg, Intravenous, ONCE, 1 dose, On Tue10/09/14 at 1830, Administer Per Protocol, Round medication dose to the nearest 100 mg: Dose has been rounded to the nearest 100 mg, Patient is a candidate for rapid infusion riTUXimab? Yes, Comments (complete for other reason(s) or to provide additional information): round up Rate/Dose Change 10/09/2014 8:35 PM EDT 700 mg 200 mL/hr Rate/Dose Change 10/09/2014 8:01 PM EDT 700 mg 150 mL/ hr Rate/Dose Change 10/09/2014 7:26 PM EDT 700 mg 100 mL/ hr senna (SENOKOT) tablet 8.6 mg 8.6 mg, Oral, 2 TIMES DAILY, First dose (after last modification) on Tue10/09/14 at 2215, Until Discontinued, Routine Given 10/10/2014 9:12 PM EDT 8.6 mg Given 10/10/2014 10:07 AM EDT 8.6 mg Given 10/09/2014 10:06 PM EDT 8.6 mg simethicone (MYLICON) chewable tablet 40 mg 40 mg, Oral, EVERY 6 HOURS PRN, Starting on Cece 10/10/14 at 1531, Until Tue10/11/14 at 1731, Cramping, Flatulence, Routine Given 10/10/2014 4:48 PM EDT 40 mg sodium chloride 0.9% infusion 150 mL/hr, Intravenous, CONTINUOUS, Starting on Tue10/09/14 at 1730, Until Tue10/11/14 at 0537, Administer 6 hours prior to CISplatin and continue for at least 48 hours. New Bag 10/10/2014 10:19 PM EDT 150 mL/h r 150 mL/hr New Bag 10/10/2014 8:50 AM EDT 150 mL/hr 150 mL/hr New Bag 10/10/2014 2:07 AM EDT 150 mL/hr 150 mL/hr documented in this encounter Active and Recently Administered Medications Times are shown in EDT. Scheduled Medication Order 10/09/2014 10/10/2014 10/11/2014 acetaminophen (TYLENOL) tablet 650 mg (COMPLETED) 650 mg, Oral, ONCE, 1 dose, On Tue10/09/14 at 1730, Administer prior to riTUXimab., Routine 1754 (Given - Provider: Carlos Larios RN) calcium carbonate (TUMS) chewable tablet 500 mg (CANCELED) 500 mg, Oral, DAILY, First dose on Tue10/10/14 at 0900, Until Discontinued, Routine 1005 (Given - Provider: Margie Lopez RN) 0816 (Given - Provider: Marilu Tabor, LINDA) cholecalciferol (Vitamin D3) tablet 400 Units (CANCELED) 400 Units, Oral, DAILY, First dose on Tue10/09/14 at 2000, Until Discontinued, Routine 1999 (Not Given - Provider: Marisol Miner RN - Reason: Patient/family refused - Comment: Already took today's dose at home) 1006 (Given - Provider: Margie Lopez, LINDA) 0816 (Given - Provider: Marilu Tabor RN) CISplatin (PLATINOL) 172 mg in sodium chloride 0.9% 672 mL chemo infusion (COMPLETED) 172 mg (100 mg/m2/dose ? 1.72 m2 Treatment Plan BSA from Recorded weight), Intravenous, ONCE, 1 dose, On Tue10/09/14 at 2330, Administer over 24 Hours 2338 (New Bag - Provider: Marisol Miner RN) 0021 (Stopped - Provider: Marisol Miner RN) cytarabine (PF) (CYTOSAR) 3,440 mg in sodium chloride 0.9% 284.4 mL chemo infusion (COMPLETED) 3,440 mg (2,000 mg/m2/dose ? 1.72 m2 Treatment Plan BSA from Recorded weight), Intravenous, EVERY 12 HOURS, 2 doses, First dose on Tue10/10/14 at 2330, Last dose on Tue10/11/14 at 1130, Administer over 3 Hours, Evaluate patient for cerebellar toxicity prior to each dose of Cytarabine. If noted, hold dose and contact physician. Place 2 drops of Prednisolone 1% in each eye every 6 hours beginning prior to the first dose of cytarabine and continuing for 48 hours after the last dose of cytarabine. 0022 (New Bag - Provider: Marisol Miner RN)0345 (Stopped - Provider: Marisol Miner RN)1146 (New Bag - Provider: Marilu Tabor, LINDA)1508 (Stopped - Provider: Marilu Tabor RN) dexamethasone (DECADRON) 40 mg in sodium chloride 0.9% 60 mL (CANCELED) 40 mg, Intravenous, EVERY 24 HOURS, 4 doses, First dose on Tue10/09/14 at 1730, Last dose on Tue10/12/14 at 1000, Administer over 30 Minutes, Schedule dexamethasone pre-riTUXimab on day 1. 1814 (Given - Provider: Carlos Larios, RN) 1008 (Given - Provider: Margie Lopez, RN) 1039 (Given - Provider: Marilu Tabor, LINDA) diphenhydrAMINE (BENADRYL) injection 50 mg (COMPLETED) 50 mg, Intravenous, ONCE, 1 dose, On Tue10/09/14 at 1730, Administer prior to riTUXimab., Routine 175 (Given - Provider: Carlos Larios, LINDA) docusate sodium (COLACE) capsule 100 mg (CANCELED) 100 mg, Oral, 2 TIMES DAILY, First dose on Tue10/09/14 at 2100, Until Discontinued, Routine 204 (Given - Provider: Marisol Miner RN) 1007 (Given - Provider: Margie Lopez, LINDA)2112 (Given - Provider: Marisol Miner RN) 0900 (Not Given - Provider: Marilu Tabor RN - Reason: Patient/family refused) escitalopram oxalate (LEXAPRO) tablet 10 mg (CANCELED) 10 mg, Oral, DAILY, First dose on Tue10/10/14 at 0900, Until Discontinued, Routine 1006 (Given - Provider: Margie Lopez, LINDA) 0816 (Given - Provider: Marilu Tabor, LINDA) fosaprepitant (EMEND) 150 mg in sodium chloride 0.9% 155 mL infusion (COMPLETED) 150 mg, Intravenous, ONCE, 1 dose, On Tue10/09/14 at 2230, Administer over 30 Minutes, Administer prior to Cisplatin on day 1. 2207 (New Bag - Provider: Marisol Miner RN) magnesium sulfate 2 g in sterile water 50 mL (COMPLETED) 2 g, Intravenous, ONCE, 1 dose, On Tue10/11/14 at 1145, Administer over 120 Minutes 1245 (Given - Provider: Marilu Tabor, LINDA) ondansetron (ZOFRAN) tablet 16 mg (COMPLETED) 16 mg, Oral, EVERY 12 HOURS, 4 doses, First dose on Tue10/09/14 at 2230, Last dose on Tue10/11/14 at 1030, Administer prior to CISplatin on day 1., Routine 2205 (Given - Provider: Marisol Miner RN) 1040 (Given - Provider: Margie Lopez RN)2325 (Given - Provider: Marisol Miner RN) 1039 (Given - Provider: Marilu Tabor, RN) potassium phosphate 15 mMol in sodium chloride 0.9% 250 mL (COMPLETED) 15 mmol, Intravenous, ONCE, 1 dose, On Tue10/10/14 at 2200, Administer over 4 Hours, Administer over 4-6 hours 2138 (Given - Provider: Marisol Miner, RN) prednisoLONE acetate (PRED FORTE) 1 % ophthalmic suspension 2 drop 2 drop, Both Eyes, EVERY 6 HOURS, First dose on Tue10/10/14 at 2330, Until Discontinued, Instill in each eye beginning prior to the first dose of cytarabine and continuing for 48 hours after last dose of cytarabine. Please discontinue eye drops 48 hours after the last dose of cytarabine., Routine 2325 (Given - Provider: Marisol Miner RN) 05 (Given - Provider: Marisol Miner, RN)1146 (Given - Provider: Marilu Tabor, LINDA) riTUXimab (RITUXAN) 700 mg in sodium chloride 0.9% 350 mL infusion (COMPLETED) 700 mg, Intravenous, ONCE, 1 dose, On Tue10/09/14 at 1830, Administer Per Protocol, Round medication dose to the nearest 100 mg: Dose has been rounded to the nearest 100 mg, Patient is a candidate for rapid infusion riTUXimab? Yes, Comments (complete for other reason(s) or to provide additional information): round up 184 (New Bag - Provider: Carlos Larios, LINDA)1925 (Rate/Dose Change - Provider: Marisol Miner, RN)2000 (Rate/Dose Change - Provider: Marisol Miner, RN)2034 (Rate/Dose Change - Provider: Marisol Miner, RN) senna (SENOKOT) tablet 8.6 mg (CANCELED) 8.6 mg, Oral, 2 TIMES DAILY, First dose (after last modification) on Tue10/09/14 at 2215, Until Discontinued, Routine 2205 (Given - Provider: Marisol Miner RN) 1007 (Given - Provider: Margie Lopez, RN)2112 (Given - Provider: Marisol Miner, RN) 0900 (Not Given - Provider: Marilu Tabor RN - Reason: Order parameters not met) Continuous Medication Order 10/09/2014 10/10/2014 10/11/2014 sodium chloride 0.9% infusion (CANCELED) 150 mL/hr, Intravenous, CONTINUOUS, Starting on Tue10/09/14 at 1730, Until Tue10/11/14 at 0537, Administer 6 hours prior to CISplatin and continue for at least 48 hours. 1754 (New Bag - Provider: Carlos Larios, RN) 0207 (New Bag - Provider: Marisol Miner RN)0850 (New Bag - Provider: Faustina Rocha RN)2219 (New Bag - Provider: Kim Cabrera, RN) 0536 (Stopped - Provider: Marisol Miner RN) PRN Medication Order 10/09/2014 10/10/2014 10/11/2014 acetaminophen (TYLENOL) tablet 650 mg (CANCELED) 650 mg, Oral, EVERY 4 HOURS PRN, Starting on Tue10/09/14 at 1654, Until Tue10/11/14 at 1731, Pain, Maximum dose of acetaminophen is 4000 mg from all sources in 24 hours., Routine 0435 (Given - Provider: Marisol Miner RN) 0701 (Canceled Entry - Provider: Marisol Miner RN - Reason: Patient/family refused) furosemide (LASIX) injection 20 mg (CANCELED) 20 mg, Intravenous, DAILY PRN, Starting on Tue10/09/14 at 1659, Until Tue10/11/14 at 1731, for weight gain greater than 2 kg above??baseline admission weight 0648 (Given - Provid er: Marisol Miner RN) LORazepam (ATIVAN) injection 0.5 mg (CANCELED) 0.5 mg, Intravenous, EVERY 4 HOURS PRN, Starting on Tue10/09/14 at 1659, Until Tue10/11/14 at 1731, Anxiety, Nausea, Vomiting, If multiple antiemetics are ordered, use in the following sequence: Ondansetron>Prochlorperazin e or Promethazine>Lorazepam>Meto clopramide, Routine 0435 (Given - Provider: Marisol Miner, RN) LORazepam (ATIVAN) tablet 0.5-1 mg 0.5-1 mg, Oral, EVERY 6 HOURS PRN, Starting on Cece 10/10/14 at 0932, Until Tue10/11/14 at 1731, Anxiety, Insomnia, Routine 2112 (Given - Provider: Marisol Miner, RN) 0820 (Given - Provider: Marilu Tabor RN) simethicone (MYLICON) chewable tablet 40 mg (CANCELED) 40 mg, Oral, EVERY 6 HOURS PRN, Starting on Cece 10/10/14 at 1531, Until Tue10/11/14 at 1731, Cramping, Flatulence, Routine 1648 (Given - Provider: Carlos Larios, LINDA) No Frequency Medication Order 10/09/2014 10/10/2014 10/11/2014 lidocaine (XYLOCAINE) 10 mg/mL (1 %) injection (COMPLETED) 1 dose, Starting on Tue10/09/14 at 1716, Until Tue10/09/14 at 1700, CARLOS LARIOS: cabinet override 1700 (Given - Provider: Carlos Larios, LINDA - Comment: For port access.) documented in this encounter Care Teams Philosophy Faculty Member Relationship Specialty Start Date End Date Maine Dunn PA PCP - General 04/08/14 02/13/15 documented as of this encounter
--- OUTSIDE RECORDS SUMMARY | 2023-10-28 00:47 | XMS_ITS | Encounter Summary ---
Author Organization [facility] Address [facility] [place] [address] Care Team Providers Care Automobile Mechanic Radiator Name Role Phone Maine Dunn Primary Care Provider [phone] Encounter Details Date Type Department Care Team (Late st Contact Info) Description 10/17/2014 Orders Only Hematology [place] [address] Светлана Boone RN DLBCL (diffuse large B cell lymphoma); Stem cell donor Social History Tobacco Use Types Packs/Day Years [...] 12:00 PM EDT Office Visit Dermatology at [facility] [address] [place] [id number] Juan F Chappell MD [facility] [address] [address] Scheduled Orders Name Type Priority Associated Diagnoses Orde r Schedule CBC (with Diff) Lab STAT 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 Expected: 10/22/2014 (Approximate), Expires: 10/18/2015 documented as of this encounter Results * (ABNORMAL) CD34 Peripheral Blood (11/04/2014 7:15 AM EDT) CD34 PB ABS 5 /mcl CERNER MILLENNIUM Comment: CD34 Cells as Percent of CD45 Cells: 0.12%. This test was developed and it? s performance characteristics determined by the Clinical Flow Cytometry Laboratory at [facility].?? It has not been cleared or approved [...] Mondragon MD HEMATOLOGY ORDER AYO GIBRAN GEEIUM documented in this encounter Visit Diagnoses Diagnosis DLBCL (diffuse large B cell lymphoma) Other malignant lymphomas, unspecified site, extranodal and solid organ sites Stem cell donor documented in this encounter Care Teams Automobile Mechanic Radiator Relationship Specialty Start Date End Date Maine Dunn PA PCP - General 04/08/14 02/13/15 documented as of this encounter
--- OUTSIDE RECORDS SUMMARY | 2023-10-28 00:47 | XMS_ITS | Encounter Summary ---
Author Organization [facility] Address [facility] [place] [address] Care Team Providers Care Wardrobe Coordinator Name Role Phone Maine Dunn Primary Care Provider [phone] Encounter Details Date Type Department Care Team (Late st Contact Info) Description 10/10/2014 Orders Only Hematology [place] [address] Светлана Boone RN Social History Tobacco Use Types Packs/Day [...] Dermatology at [facility] [address] [place] [address] Juan F Chappell MD [facility] [address] [place] [address] documented as of this encounter Visit Diagnoses Not on filedocumented in this encounter Care Teams Wardrobe Coordinator Relationship Specialty Start Date End Date Maine Dunn PA PCP - General 04/08/14 02/13/15 documented as of this encounter
--- OUTSIDE RECORDS SUMMARY | 2023-10-28 00:47 | XMS_ITS | Encounter Summary ---
Author Organization [facility] Address [facility] [place] [address] Care Team Providers Care Z [employer] Mainframe Systems Programmer Name Role Phone Maine Dunn Primary Care Provider [phone] Encounter Details Date Type Department Care Team (Latest Contact Info) Description 09/26/2014 2:51 PM EDT - 09/26/2014 7:23 PM EDT Hospital En[place] [id number] Camryn Gutierrez MD [facility] [place] [address] Discharge Disposition: Home Social History Tobacco Use [...] Sign Reading Time Taken Comments Blood Pressure 118/47 09/26/2014 5:22 PM EDT Pulse 82 09/26/2014 5:22 PM EDT Temperature 36.7 ??C (98.1 ??F) 09/26/2014 3:08 PM ED T Respiratory Rate 16 09/26/2014 5:22 PM EDT Oxygen Saturation 97% 09/26/2014 5:22 PM EDT Inhaled Oxygen Concentration - - Weight - - Height - - Body Mass Index - - documented in this encounter Discharge Instructions * Discharge Instructions* Sadaf Ashley RN - 09/26/2014 5:26 PM EDT Bronchoscopy What to expect at home This care sheet gives you a general idea of what to expect after the test Activity Because of the sedation that you received Your judgement and reaction time are affected ?? Go home and continue to rest for the next 1 or 2 days. Avoid strenuous activities. You may resume normal activities in 48 hours. ?? Change from one position to the next slowly. You may lose your balance unexpectedly. ?? Be careful on stairs as you may be unsteady on your feet. FOR THE NEXT 24 HRS ?? DO NOT DRIVE OR OPERATE ANY MACHINERY ?? DO NOT DRINK ALCOHOLIC BEVERAGES ?? DO NOT SIGN LEGAL DOCUMENTS ?? If you are a smoker: DO NOT SMOKE WHILE YOU ARE ALONE Diet ?? Continue on liquids for the next 2 hours then you can resume your normal diet ?? If it is painful to swallow, start out with cold drinks, popsicles, and ice cream. Next, try soft foods like pudding, yogurt, canned or cooked fruit, scrambled eggs, and mashed potatoes. Avoid eating hard or scratchy foods like chips or raw vegetables. Avoid orange or tomato juice and other acidic foods that can sting the throat. Medicines ?? You may notice a sore throat, this should resolve on it's own. You may use ice chips, popsicles or lozenges to help control the discomfort Other Instructions ?? You may cough up small amounts of blood, this should resolve on it's own. IV SITE may get red or tender this is normal. You may use warm compresses 20 minutes at a time on and off for the next day or so. If the tenderness +/or redness increases or foul drainage and a red streak occurs, please contact your PCP When should you call for help? Call 911 anytime you think you may need Emergency care. For example You passed out ( lost consciousness) You have sudden chest pain or shortness of breath You cough up large amounts of bright red blood You have severe pain in your chest You have severe trouble breathing Call your Doctor now or seek medical attention You cough up more than 1/2 cup blood You have pain that does not get better after you take pain medicine You have a fever over 100 F or chills that last over eight (8) hrs and is not relieved with Tylenoltablets every 4 hours ( not to exceed 2 extra-strength or 1000 mg at a time) You still sound hoarse after a few days You have bubbles under the skin around the collarbone. These may crackle and pop when you press on them. Watch closely for changes in your health, and be sure to contact your Doctor if you have any problems Contact Numbers Tuesday - Tuesday Pulmonary Clinic [phone] Same Day Endoscopy [phone] Otherwise call [facility] and ask to speak to the Pulmonary Doctor director of special education [phone] Discharge instructions reviewed with patient who expresses understanding documented in this encounter Medications at Time of Discharge Medication Sig Dispensed Refills Start Date End Date diphenhydrAMINE-Acetami nophen 25-500 mg Tablet Take 50-1,000 mg by mouth. 10/11/2014 LORazepam (ATIVAN) 0.5 mg Tablet Take 1 tablet by mouth every 6 hours as needed for Anxiety. Patient takes one tablet in the morning, and two tablets at night 60 tablet 1 08/05/2014 09/30/2014 ondansetron (ZOFRAN) 8 mg Tablet take 1 tablet by mouth every 8 hours if needed for nausea 10 tablet 6 07/16/2014 09/30/2014 docusate sodium (COLACE) 100 mg Capsule Take 100 mg by mouth 2 times daily. 10/02/2015 senna (SENOKOT) 8.6 mg Tablet Take 1 tablet by mouth daily. 12/25/2015 polyethylene glycol (MIRALAX) 17 gram Powder in Packet Take 17 g by mouth as needed. 09/30/2014 acetaminophen (TYLENOL) 500 mg Tablet Take 1,000 mg by mouth every 6 hours as needed. 10/11/2014 [place]-3 Fatty Acids-Vitamin E (FISH OIL) 1,000 mg CapsuleIndications:Lymp fawn Take by mouth. 01/29/2015 Calcium 500 mg TabletIndications:Lymph vivien Take by mouth. 01/29/2015 Cholecalciferol, Vitamin D3, (VITAMIN D-3) 2,000 unit CapsuleIndications:Lymp fawn Take 1,000 Units by mouth. 01/29/2015 escitalopram (LEXAPRO) 10 mg tablet 03/08/2005 01/03/2015 documented as of this encounter H&P Notes * Camryn Gutierrez MD - 09/26/2014 11:44 AM EDT Patient Name: Myriam De Souza Patient Age: 63 y.o. Birthdate: 1950 Admit date: (Not on file) Attending Physician: Camryn Gutierrez MD Please see today's H&P documented in this encounter Procedure Notes * Pratik García, RN - 09/26/2014 6:50 PM EDT Pt received 0.5 mg Versed during EBUS at 1651, I forgot to document this to bring a total of 5mg Versed and 250mcg Fentanyl. Pratik García RN Endo [id number] documented in this encounter Plan of Treatment Upcoming Encounters Date Type Department Care Team (Late st Contact Info) Description 12/07/2023 12:00 PM EDT Office Visit Dermatology at [facility] [address] [place] [address] Juan F Chappell MD [facility] [address] [place] [address] documented as of this encounter Procedures Procedure Name Priority Date/Time Associated Diagnosis Comments CYTOPATHOLOGY NON-GYNECOLOGICAL Routine 09/26/2014 5:14 PM EDT IMMUNOPHENOTYPING FLOW CYTOMETRY (BLOOD) Routine 09/26/2014 5:13 PM EDT NON-BLUEBERRY GROWER FLOW CYTOMETRY REPORT Routine 09/26/2014 5:00 PM EDT NON-BLUEBERRY GROWER FINAL REPORT Routine 09/26/2014 5:00 PM EDT CYTOPATHOLOGY NON-GYNECOLOGICAL Routine 09/26/2014 4:10 PM EDT ENDOBRONCHIAL ULTRASOUND (EBUS) 09/26/2014 3:53 PM EDT Lung mass BRONCHOSCOPY Routine 09/26/2014 2:50 PM EDT documented in this encounter Results * Cytopathology Non-Gynecological (09/26/2014 5:14 PM EDT) AP Specimen 09/26/2014 5:14 PM EDT 09/26/2014 5:14 PM EDT [facility]ative [facility] - 09/26/2014 5:14 PM EDT Specimen requisition ordered. ??Separate Pathology report to follow Camryn Gutierrez MD PATHOLOGY/CYTOLOGY O RDERABLES Performing Organization Address [facility]/ZIP Co de Phone Number [facility] * Immunophenotyping Flow Cytometry (09/26/2014 5:13 PM EDT) Immunophenotyping Flow See Comment [facility] Comment: When completed by the Pathologist, the Flow Cytometry Report ([id number]) will display under the Pathology Results section within eDH. Specimen of unknown material (specimen) Other / Unknown 09/26/2014 5:13 PM EDT 09/27/2014 9:09 AM EDT Narrative Resulting Agency Comment Spec In Lab Kiki Brizuela MD HEMATOLOGY ORDERABLE S Performing Organization Address [facility] Co de Phone Number [facility] [employer] [facility] * Non-Hydro Pneumatic Tester Final Report (09/26/2014 5:00 PM EDT) Diagnosis Discussion [id number] ? Location: 4T The signing pathologist has (i) examined the relevant preparation(s) for the specimen(s) and (ii) rendered or confirmed the diagnosis(es). . ? Non-Hydro Pneumatic Tester Final DIAGNOSIS Positive for Malignancy 09/30/14 ?Screened by: ? LMY ?Rescreened by: ?? DLO,DLO 10/01/14 ?Verified by: ? ALICIA MESSINA ? Hematopathologist ? (Electronic Signature) DISCUSSION Lymph node: right R2 (EBUS-guided FNA): - Large B-cell lymphoma (see NOTE). Abnormal lymphocytes in this FNA specimen consist of a mixture of medium to large size cell with irregular nuclear contours, fine chromatin, variably prominent nucleoli and a moderate amount of cytoplasm. Occasional small lymphocytes and apoptotic bodies are seen in the background. The neoplastic cells are PAX5(weak)+ CD10- BCL6-/(weak/ partial)+ MUM1- and strongly BCL2+. The immunostain for [...] was not informative according to the [facility] advisory internship, but the strong BCL2 expression in the absence of MUM1 suggests a germinal center origin via the [place] advisory internship. Immunohistochemistry Studies: Formalin-fixed, paraffin-embedded tissue sections are studied using the YieldBuild system technique with appropriate positive and negative controls. ? These IHC studies provide the pathologist with adjunctive diagnostic information. Antibody specificity has been verified by testing antibodies on a series of in-house tissues with known immunohistochemical performance characteristics. The clinical interpretation of any antibody positive staining or its absence is evaluated within the context of clinical presentation, morphology, histopathological criteria and other diagnostic tests. Block ? Antibody ?Result (Positive/Negative) A1 ? CD3 ?See above discussion ? PAX5 ? BCL2 ? BCL6 ? CD10 ? MUM1 STATEMENT OF ADEQUACY Specimen submitted is satisfactory. CLINICAL INFORMATION Specimen Source : ?? Lymph node: right R2 (EBUS-guided FNA - assisted) Pertinent Clinical Data and Significant Therapy: . CLINICAL INFORMATION ?? History lymphoma Clinical Impression: ?Lymphoma Pertinent Radiologic Findings: ?? (not provided) Gross Description: ?Received in Cytorich Red, approximately 15 mL total volume of clear, blood-tinged fluid, with clots. ?? Total Preparation: ??Diff-Quik 1; Pap Stain 1; Cell Block 1. Fine Needle Aspiration Intraoperative Consultation: Evaluation Episode #1 (1 slide): Adequate for final diagnosis. Lymphoid tissue present, some atypical, material sent for flow. Intraoperative Consultation by: Carmela Wood MD (fellow) and Kiki Brizuela MD.(Cytopathologist) They have personally examined the cytologic slides. Their interpretation is as stated. Note: Intraoperative Consultation results are preliminary assessments of adequacy and diagnosis. See final diagnostic comments for completed interpretation. ?Flow Cytometry DIAGNOSIS Monoclonal, kappa-restricted B-cell population identified (see Discussion). 09/27/14 DLO 09/27/14 Verified by: ? ALICIA MESSINA ?Hematopathologist ?(Electronic Signature) DISCUSSION CD19+ B-cells in this FNA specimen are monoclonal, CD5-, CD10- and kappa immunoglobulin light chain-restricted. CD3+ T-cells in the specimen have a mature immunophenotype with an appropriate mixture of CD4+ and CD8+ forms (CD4:CD8 approximately 1.3) without aberrant antigen loss or expression. In summary, these immunophenotypic findings are consistent with involvement of the lymph node by a monoclonal, kappa light chain- restricted B-cell lymphoproliferative neoplasm. This immunophenotype is similar to that previously identified in the original lesion (see [id number]) and suggests the presence of residual/recurrent disease. Complete diagnostic evaluation rests with morphologic review, however, which is currently in progress and the results of which will be reported separately when available. Flow analysis is an ancillary study. A definite diagnosis requires correlation with the morphologic features of this process and if necessary, correlation with other ancillary studies like immunohistochemistry, enzyme cytochemistry and/or cyto/molecular genetics. This test was developed and its performance characteristics determined by the Clinical Flow Cytometry Laboratory at [facility]. It has not been cleared or approved [...] to perform high complexity clinical laboratory testing. . SPECIMEN PROCESSING FCM: [id number] [id number] Cells for immunophenotypic analysis were derived from FNA. ??CD45 vs side scatter gating was utilized to identify a lymphoid analysis region that comprises approximately 82-84% of all cells. The following markers were assesed: CD2, CD3, CD4, CD5, CD7, CD8, CD10, CD19, CD45, CD56, ??kappa light chain and lambda light chain. 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 10/01/2014 12:00 PM EDT [facility] LYMPH NODE SPECIMEN / Unknown 09/26/2014 5:00 PM EDT 09/26/2014 5:00 PM EDT Camryn Gutierrez MD PATHOLOGY/CYTOLOGY O RDERALEANNA [facility]IBRAN [facility] [address] * Non-BLUEBERRY GROWER Flow Cytometry Report (09/26/2014 5:00 PM EDT) Non-BLUEBERRY GROWER Flow Cytometry Report ? [facility] ? Provider: ?? CAMRYN GUTIERREZ ? Pt. Name: ?? MYRIAM DE SOUZA ? Acc #: ?[id number] ? Pt. ? Col Date: ?? 09/26/2014 ? /Sex: ?1950,(63 years),Female ? Rec Date: ?? 09/26/2014 ? LOC: ?4T ? ANALYTICAL CELL PATHOLOGY ? CLINICAL INFORMATION ? 63 yo female with diffuse large B-cell lymphoma and persistent paratracheal ? ammon mass. ? SPECIMEN PROCESSING ? FCM: [id number] ? FN- ? Cells for immunophenotypic analysis were derived from FNA. ??CD45 vs side ? scatter gating was utilized to identify a lymphoid analysis region that ? comprises approximately 82-84% of all cells. ? The following markers were assesed: CD2, CD3, CD4, CD5, CD7, CD8, CD10, ? CD19, CD45, CD56, ??kappa light chain and lambda light chain. ? DIAGNOSIS ? Monoclonal, kappa-restricted B-cell population identified (see Discussion). ? 09/27/14 ? DLO ? 09/27/14 Verified by: ? ALICIA MESSINA ? Hematopathologist ? (Electronic Signature) ? DISCUSSION ? CD19+ B-cells in this FNA specimen are monoclonal, CD5-, CD10- and kappa ? immunoglobulin light chain-restricted. CD3+ T-cells in the specimen have a ? mature immunophenotype with an appropriate mixture of CD4+ and CD8+ forms ? (CD4:CD8 approximately 1.3) without aberrant antigen loss or expression. In ? summary, these immunophenotypic findings are consistent with involvement of ? the lymph node by a monoclonal, kappa light chain-restricted B-cell ? lymphoproliferative neoplasm. This immunophenotype is similar to that ? previously identified in the original lesion (see [id number]) and suggests ? the presence of residual/recurrent disease. Complete diagnostic evaluation ? rests with morphologic review, however, which is currently in progress and ? the results of which will be reported separately when available. ? Flow analysis is an ancillary study. A definite diagnosis requires ? correlation with the morphologic features of this process and if necessary, ? correlation with other ancillary studies like immunohistochemistry, enzyme ? cytochemistry and/or cyto/molecular genetics. ? This test was developed and its performance characteristics determined by ? the Clinical Flow Cytometry Laboratory at [facility] ? [facility] ? Provider: ?? CAMRYN GUTIERREZ ? Pt. Name: ?? MYRIAM DE SOUZA ? Acc #: ?[id number] ? Pt. ? Col Date: ?? 09/26/2014 ? /Sex: ?1950,(63 years),Female ? Rec Date: ?? 09/26/2014 ? LOC: ?4T ? ANALYTICAL CELL PATHOLOGY ? [facility]. It has not been cleared or approved by the U.S. ? Food and Drug Administration. ??The FDA has determined that such clearance ? or approval is not necessary. ??This test is used for clinical purposes. ??It ? should not be regarded as investigational or for research. ??This laboratory ? is certified under the Clinical Laboratory Improvement Act of 1988 (CLIA) ? as qualified to perform high complexity clinical laboratory testing. [facility] 09/26/2014 5:00 PM EDT Camryn Gutierrez MD PATHOLOGY/CYTOLOGY O ERUM Performing Organization Address [facility] Co de Phone Number [facility] * Cytopathology Non-Gynecological (09/26/2014 4:10 PM EDT) AP Specimen 09/26/2014 4:10 PM EDT 09/26/2014 4:10 PM EDT Narrative [facility] - 09/26/2014 4:10 PM EDT Specimen requisition ordered. ??Separate Pathology report to follow Camryn Gutierrez MD PATHOLOGY/CYTOLOGY O ERUM Performing Organization Address [facility] de Phone Number [facility] * BRONCHOSCOPY (09/26/2014 2:50 PM EDT) BRONCHOSCOPY [facility] Bronchoscopy Patient Name: Myriam De Souza ? Procedure Date: 09/26/2014 2:50 PM ? Age: 63 ? Procedure: ?Bronchoscopy Indications: ?FDG avid lesions in a patient with ?diffuse large B-cell lymphoma ?following treatment Providers: ?Camryn Gutierrez MD, Pratik García, ?RN, Liz Loera Referring MD: ? Maine Dunn MD Requesting Physician: Medicines: ?250 ? ? ?g fentanyl, 5 mg versed Complications: ?There were no complications Procedure: ?After obtaining informed consent, ?and performing a timeout during ?which the patient's identity was ?confirmed, the lack of need for ?antibiotics was confirmed, and the ?procedure to be performed was ?confirmed, fiberoptic bronchoscope ?was placed orally and inspection of ?the airways was undertaken. The ?oropharynx was normal. Vocal cords ?oppose normally. The trachea was ?normal. The mainstem yasir was ?normal. The left and right bronchial ?trees were normal in their entirety. ?Using endobronchial ultrasound, fine ?needle aspirates were taken of a ?level LANDY lymph node. These were ?reviewed in real time by ?cytopathology. Some abnormal cells ?were seen. Abundant additional ?material was sent for cell block and ?stain and for flow cytometry. ?The procedure was accomplished ?without difficulty. Findings: ? As above Impression: ? As above Recommendation: ? Await final cytopathology and flow ?cytometry _ Camryn Gutierrez MD 09/26/2014 5:34 PM This report has been signed electronically. Number of Addenda: 0 Note Initiated On: 09/26/2014 2:50 PM PROVATION 09/26/2014 2:50 PM EDT Maine GARCIASULUCIA ORDERS NO PO STOP PAIN QUESTION PROVATION documented in this encounter Visit Diagnoses Not on filedocumented in this encounter Active and Recently Administered Medications Times are shown in EDT. PRN Medication Order 09/24/2014 09/25/2014 09/26/2014 albuterol (PROVENTIL) nebulizer solution (CANCELED) ONCE PRN, Starting on Cece 09/26/14 at 1540, Until Cece 09/26/14 at 1742, Intra-Operative (Intra-Procedure), Routine 1540 (Given - Provid er: Pratik García RN - Comment: with 3cc 4% Lidi) fentaNYL 50 mcg/mL multi-dose injection (CANCELED) ONCE PRN, Starting on Cece 09/26/14 at 1557, Until Cece 09/26/14 at 1742, Intra-Operative (Intra-Procedure), Routine 1557 (Given - Provid er: Pratik García RN)1601 (Given - Provider: Pratik García RN)1607 (Given - Provider: Pratik García RN)1610 (Given - Provider: Pratik García RN)1613 (Given - Provider: Pratik García, RN)1625 (Given - Provider: Pratik García RN)1640 (Given - Provider: Pratik García RN)1651 (Given - Provider: Pratik García RN) lidocaine (XYLOCAINE) 2 % jelly (CANCELED) ONCE PRN, Starting on Cece 09/26/14 at 1617, Until Cece 09/26/14 at 1742, Intra-Operative (Intra-Procedure) 1617 (Given - Provid er: Pratik García RN) lidocaine (XYLOCAINE) 4 % (40 mg/mL) external solution (CANCELED) ONCE PRN, Starting on Cece 09/26/14 at 1655, Until Cece 09/26/14 at 1742, Intra-Operative (Intra-Procedure) 1655 (Given - Provid er: Pratik García RN - Comment: approximate with neb, atomizing and via scope) midazolam (PF) (VERSED) 1 mg/mL multi-dose injection (CANCELED) ONCE PRN, Starting on Cece 09/26/14 at 1557, Until Cece 09/26/14 at 1742, Intra-Operative (Intra-Procedure), Routine 1557 (Given - Provid er: Pratik García RN)1601 (Given - Provider: Pratik García RN)1607 (Given - Provider: Pratik García RN)1610 (Given - Provider: Pratik García RN)1613 (Given - Provider: Pratik García RN)1625 (Given - Provider: Pratik García RN)1640 (Given - Provider: Pratik García RN) documented in this encounter Care Teams [employer] Programmer Relationship Specialty Start Date End Date Maine Dunn PA PCP - General 04/08/14 02/13/15 documented as of this encounter
--- OUTSIDE RECORDS SUMMARY | 2023-10-28 00:47 | XMS_ITS | Encounter Summary ---
Author Organization [facility] Address [place] [address] Care Team Providers Care Computer Lab Para Professional Name Role Phone Maine Dunn Primary Care Provider [phone] Encounter Details Date Type Department Care Team (Late st Contact Info) Description 09/06/2014 Notes Only Hematology [place] [address] Kimberly Mondragon MD [facility] [address] [place] [address] Social History Tobacco Use Types Packs/Day Years Used Date Smoking Tobacco: Never Sex and Gender Information Value Date Recorded Sex Assigned at Not on file Gender Identity Not on file Sexual Orientation Not on file documented as of this encounter Progress Notes * Kimberly Mondragon MD - 09/06/2014 11:50 AM EDT Called pt Will proceed with bronch and biopsy. Move LTB discussion to after the bronch/bx Dr Martin will do bronch week of 09/16. documented in this encounter Plan of Treatment Upcoming Encounters Date Type Department Care Team (Late st Contact Info) Description 12/07/2023 12:00 PM EDT Office Visit Dermatology at [facility] [address] [place] [address] Juan F Chappell MD [facility] [address] [address] documented as of this encounter Visit Diagnoses Not on filedocumented in this encounter Care Teams Computer Lab Para Professional Relationship Specialty Start Date End Date Maine Dunn PA PCP - General 04/08/14 02/13/15 documented as of this encounter
--- OUTSIDE RECORDS SUMMARY | 2023-10-28 00:47 | XMS_ITS | Encounter Summary ---
Author Organization [facility] Address [facility] [place] [address] Care Team Providers Care Manager Cost Name Role Phone Maine Dunn Primary Care Provider [phone] Encounter Details Date Type Department Care Team (Late st Contact Info) Description 2014 Orders Only Hematology [place] [address] Kimberly Mondragon MD [facility] [address] HEMATOLOGY [place] [address] Lymphoma Social History Tobacco Use Types Packs/Day [...] 12:00 PM EDT Office Visit Dermatology at [facility] [address] [place] [address] Juan F Chappell MD [facility] DR RANDEE [place] [address] documented as of this encounter Results * Pulmonary Function Testing (10/09/2014 9:35 PM EDT) Narrative Sarbjit Tsang MD - 10/09/2014 9:35 PM EDT Sarbjit Tsang MD ? 10/09/2014 ??9:35 PM FVC , FEV1, FEV1/FVC within normal limits. Diffusing capacity within normal limits. IMPRESSION: Within normal limits. Kimberly Mondragon MD PFT ORDERABLES documented in this encounter Visit Diagnoses Diagnosis Lymphoma Other malignant lymphomas, unspecified site, extranodal and solid organ sites Lymphoma Other malignant lymphomas, unspecified site, extranodal and solid organ sites documented in this encounter Care Teams Manager Cost Relationship Specialty Start Date End Date Maine Dunn PA PCP - General 04/08/14 02/13/15 documented as of this encounter
--- OUTSIDE RECORDS SUMMARY | 2023-10-28 00:47 | XMS_ITS | Encounter Summary ---
Author Organization [facility] Address [facility] [place] [address] Care Team Providers Care Nicker And Breaker Name Role Phone Maine Dunn Primary Care Provider [phone] Encounter Details Date Type Department Care Team (Late st Contact Info) Description 10/01/2014 Notes Only Hematology [place] [address] Kimberly Mondragon MD [facility] [place] [address] Social History Tobacco Use Types Packs/Day Years [...] 12:00 PM EDT Office Visit Dermatology at [facility] [address] [place] [address] Juan F Chappell MD [facility] DR [address] [address] documented as of this encounter Visit Diagnoses Not on filedocumented in this encounter Care Teams Nicker And Breaker Relationship Specialty Start Date End Date Maine Dunn PA PCP - General 04/08/14 02/13/15 documented as of this encounter
--- OUTSIDE RECORDS SUMMARY | 2023-10-28 00:47 | XMS_ITS | Encounter Summary ---
Author Organization [facility] [address] Care Team Providers Care Phlebotomist Name Role Phone Maine Dunn Primary Care Provider [phone] Reason for Visit * Reason Onset Date Comments Medical Care Coordination 10/18/2014 Encounter Details Date Type Department Care Team (Late st Contact Info) Description 10/18/2014 Telephone Hematology [place] [address] Светлана Boone RN Medical Care Coordination Social [...] Telephone Encounter - Светлана Boone RN - 10/18/2014 1:37 PM EDT 10/18/14 BMT Coordinator / Mobilization monitoring S: I am more tired today. I am glad my daughter is here to help me. O: Myriam is 64 yo who is day +10 s/p chemo and Neupogen I called for routine monitoring check and to review labs from today. I was called WBC 1.75, Hgb 11.2, PLTS 26 Neupogen: Dose is 780 mcgstarted on 10/14/14. Confirmed this with patient and she is taking injections daily by self injection. Objective: Nausea: None Vomiting:None Diarrhea: None Constipation: yes, using Mirlax, and stool softner and eating Prunes. Fever/chills: None Energy/Fatigue: more tired. SOB/Cough: None Urinary Problems: None Teaching: Reviewed plan,encouraged PO intake, reviewed neutropenic and bleeding precautions. A: Myriam restated the plan to me, to seek medical care if she spikes a fever. P: Continue Neupogen and anticipate stem cell collection on 10/22/14. Temp line will be placed beforethe collection. documented in this encounter Plan of Treatment Upcoming Encounters Date Type Department Care Team (Late st Contact Info) Description 12/07/2023 12:00 PM EDT Office Visit Dermatology at [facility] [address] [place] [address] Juan F Chappell MD [facility] DR RANDE[place] [address] documented as of this encounter Visit Diagnoses Not on filedocumented in this encounter Care Teams Phlebotomist Relationship Specialty Start Date End Date Maine Dunn PA PCP - General 04/08/14 02/13/15 documented as of this encounter
--- OUTSIDE RECORDS SUMMARY | 2023-10-28 00:47 | XMS_ITS | Encounter Summary ---
Author Organization [facility] Address [facility] [place] [address] Care Team Providers Care Hull Grinder Name Role Phone Maine Dunn Primary Care Provider Encounter Details Date Type Department Care Team (Late st Contact Info) Description 10/22/2014 External Results Hematology [place] [address] Светлана Boone RN Social History Tobacco Use [...] 12:00 PM EDT Office Visit Dermatology at [facility] [address] [place] [address] Juan F Chappell MD [facility] DR RANDEE [place] [address] documented as of this encounter Procedures Procedure Name Priority Date/Time Associated Diagnosis Comments CBC (WITH DIFF) Routine 10/18/2014 11:20 AM EDT documented in this encounter Results * (ABNORMAL) CBC (with Diff) (10/18/2014 11:20 AM EDT) White Blood Cell 1.75(EXTER NAL/ABN) Hemoglobin 11.2(EXTER NAL/ABN) 12.0 - 16.0 Hematocrit 31.5(EXTER NAL/ABN) 36.0 - 46.0 Platelet 26(EXTERNA L/ABN) Blood specimen (specimen) 10/18/2014 11:20 AM EDT Historical Provider HEMATOLOGY ORDERA BLES documented in this encounter Visit Diagnoses Not on filedocumented in this encounter Care Teams Hull Grinder Relationship Specialty Start Date End Date Maine Dunn PA PCP - General 04/08/14 02/13/15 documented as of this encounter
--- OUTSIDE RECORDS SUMMARY | 2023-10-28 00:47 | XMS_ITS | Encounter Summary ---
Author Organization [facility] Address [facility] [place] [address] Care Team Providers Care Instrument Inspector Name Role Phone Maine Dunn Primary Care Provider [phone] Encounter Details Date Type Department Care Team (Late st Contact Info) Description 10/09/2014 Orders Only Hematology [place] [address] Светлана Boone RN DLBCL (diffuse large B [...] [facility] [address] [place] [address] Juan F Chappell MD [facility] DR RANDEE [place] [address] Scheduled Orders Name Type Priority Associated Diagnoses Orde r Schedule CBC (with Diff) Lab STAT DLBCL (diffuse large B cell lymphoma) Expected: 10/10/2014 (Approximate), Expires: 10/11/2015 documented as of this encounter Results * IR central venous access (10/23/2014 12:59 PM EDT) Anatomical Region Laterality Modality Chest, Vascular X-Ray Angiograph y 10/23/2014 12:5 9 PM EDT Impressions 10/23/2014 4:47 PM EDT Impression: Patent LEFT IJ vein; placement temporary LEFT IJ 13 Fr temporary hemodialysis catheter, tip at cavoatrial junction. Recommendation: Catheter ready for use. Procedure performed by Jewels Knowles APRN Attending: Dr. Caceres was not present for procedure. Narrative 10/23/2014 4:47 PM EDT VIR PROCEDURE NOTE: Procedure: Temporary LEFT IJ (chest port in RIJ) pheresis catheter placement ACC#: [id number] Indication: 64 y/o with DLBCL scheduled for stem cell collection. Temp pheresis catheter requested. She has a RIJ single lumen port that was placed 04/05/14. Technique: After discussing risks (including infection, bleeding, damage to surrounding structures), and benefits, patient consented to the procedure. A moment of truth was performed and the patient and procedure correctly identified. Split doses of fentanyl and versed were administered by the IR nurse during continuous monitoring of pulse, blood pressure and oxygen saturation. After maximal sterile barrier technique preparation of the neck and upper chest, ultrasound was used to localize the LEFT internal jugular vein. 1% lidocaine SQ was administered for anesthesia, and a 21 ga needle was advanced under ultrasound guidance into the IJ. The remainder of the procedure was performed under fluoroscopic guidance. An 0.018 inch wire was advanced into SVC. A 5 Fr introducer sheath was placed and the wire exchanged for a 0.035 inch wire. Venotomy was dilated to accommodate the 12 Fr HD catheter which was advanced over the wire without issue. Catheter was secured to the skin. All lumens flushed and aspirated well (blue and brown >5cc/sec). Patient tolerated the procedure well. Complications: There were no immediate complications. Contrast: No contrast administered. Fluoro time: 0.6 min. Procedure Note Romel Caceres MD - 10/23/2014 VIR PROCEDURE NOTE: Procedure: Temporary LEFT IJ (chest port in RIJ) pheresis catheterplacement ACC#: [id number] Indication: 64 y/o with DLBCL scheduled for stem cell collection. Temppheresis catheter requested. She has a RIJ single lumen port that was placed04/05/14. Technique: After discussing risks (including infection, bleeding, damageto surrounding structures), and benefits, patient consented to the procedure.A moment of truth was performed and the patient and procedure correctly identified. Split doses of fentanyl and versed were administered by the IRnurse during continuous monitoring of pulse, blood pressure and oxygensaturation. After maximal sterile barrier technique preparation of the neck and upperchest, ultrasound was used to localize the LEFT internal jugular vein. 1%lidocaine SQ was administered for anesthesia, and a 21 ga needle was advanced under ultrasound guidance into the IJ. The remainder of the procedure wasperformed under fluoroscopic guidance. An 0.018 inch wire was advanced into SVC. A 5Fr introducer sheath was placed and the wire exchanged for a 0.035 inch wire. Venotomy was dilated to accommodate the 12 Fr HD catheter which wasadvanced over the wire without issue. Catheter was secured to the skin. Alllumens flushed and aspirated well (blue and brown >5cc/sec). Patient toleratedthe procedure well. Complications: There were no immediate complications. Contrast: No contrast administered. Fluoro time: 0.6 min. IMPRESSION Impression: Patent LEFT IJ vein; placement temporary LEFT IJ 13 Frtemporary hemodialysis catheter, tip at cavoatrial junction. Recommendation: Catheter ready for use. Procedure performed by Jewels Knowles APRN Attending: Dr. Caceres was not present for procedure. Kimberly Mondragon MD IMG IR ORDERABLE S documented in this encounter Visit Diagnoses Diagnosis DLBCL (diffuse large B cell lymphoma) Other malignant lymphomas, unspecified site, extranodal and solid organ sites DLBCL (diffuse large B cell lymphoma) Other malignant lymphomas, unspecified site, extranodal and solid organ sites documented in this encounter Care Teams Instrument Inspector Relationship Specialty Start Date End Date Maine Dunn PA PCP - General 04/08/14 02/13/15 documented as of this encounter
--- OUTSIDE RECORDS SUMMARY | 2023-10-28 00:47 | XMS_ITS | Encounter Summary ---
Author Organization [facility] Address [facility] [place] [address] Care Team Providers Care Stone Hand Name Role Phone Maine Dunn Primary Care Provider [phone] Encounter Details Date Type Department Care Team (Late st Contact Info) Description 10/01/2014 Multidisciplinary Ca re Committee Hematology [place] [address] Kimberly Mondragon MD [facility] [address] [place] [address] Social History Tobacco Use Types Packs/Day Years Used Date Smoking Tobacco: Never Alcohol Use Standard Drinks/Week Comments Yes 2 (1 standard drink = 0.6 oz pur e alcohol) Sex and Gender Information Value Date Recorded Sex Assigned at Not on file Gender Identity Not on file Sexual Orientation Not on file documented as of this encounter Progress Notes * Kimberly Mondragon MD - 10/01/2014 5:43 PM EDT Lymphoma - Tumor Board Note Date Presented: 10/01/2014 Presenting Physician: Giancarlo Diagnosis/Tumor Site: DLBCL With bulky disease of axilla and neck. + PEt avid disease below diaphram as well. Synopsis of History/HPI: RCHOP X 4 with PET-4 with persistent PET avid paratracheal LN. PET-6 with improvement but persistent disease. Biopsy of LN consistent with residual DLBLC Problem List (Comorbidities): Patient Active Problem List Diagnosis Code ??? Lymphoma 202.80 ??? Depression with anxiety 300.4 Imaging: PET Mar, May, August reviewed Pathology:listed above Stage: IIIA Clinical Data (Exams, Labs, etc.): see above Histology:see above Clinical Trial Availability: none Options Discussed: Pt with continued improvement on PET but still we residual uptake in R paratracheal LN that is not insignificant. Biopsy performed with path consistent with the same DLBCL seen previously. Primary refractory disease. Discussed Salvage chemo with XRT or Auto. Auto clearly is standard of care and given that she is young and has excellent performance status we would strongly favor/recommend salvage chemo and auto stem cell Tranplant. Recommendations: Salvage chemo (RICE or RDHAP) and then Auto stem cell transplant DISCLAIMER: The patient was discussed and the tumor board made recommendations but it is ultimatelyup to the treatment provider(s) and the patient to determine the patient???s care. documented in this encounter Plan of Treatment Upcoming Encounters Date Type Department Care Team (Late st Contact Info) Description 12/07/2023 12:00 PM EDT Office Visit Dermatology at [facility] [address] [place] [address] Juan F Chappell MD [facility] DR [place] [address] documented as of this encounter Visit Diagnoses Not on filedocumented in this encounter Care Teams Stone Hand Relationship Specialty Start Date End Date Maine Dunn PA PCP - General 04/08/14 02/13/15 documented as of this encounter
--- OUTSIDE RECORDS SUMMARY | 2023-10-28 00:47 | XMS_ITS | Encounter Summary ---
Author Organization [facility] Address [facility] [place] [address] Care Team Providers Care Migratory Worker Name Role Phone Maine Dunn Primary Care Provider [phone] Encounter Details Date Type Department Care Team (Late st Contact Info) Description 10/17/2014 External Results Hematology [place] [address] Светлана Boone RN Social History Tobacco Use [...] 12:00 PM EDT Office Visit Dermatology at [facility] [address] [place] [address] Juan F Chappell MD [facility] [address] [place] [address] documented as of this encounter Procedures Procedure Name Priority Date/Time Associated Diagnosis Comments CBC (WITH DIFF) Routine 10/16/2014 11:14 AM EDT CBC (WITH DIFF) Routine 10/14/2014 11:22 AM EDT documented in this encounter Results * (ABNORMAL) CBC (with Diff) (10/16/2014 11:14 AM EDT) White Blood Cell 10.24(Exte rnal Lab) Hemoglobin 11.9(EXTER NAL/ABN) 12.0 - 16.0 Hematocrit 32.7(EXTER NAL/ABN) 36.0 - 46.0 Platelet 69(EXTERNA L/ABN) Blood specimen (specimen) 10/16/2014 11:14 AM EDT Historical Provider HEMATOLOGY ORDERA BLES * (ABNORMAL) CBC (with Diff) (10/14/2014 11:22 AM EDT) White Blood Cell 3.59(EXTER NAL/ABN) Hemoglobin 11.6(EXTER NAL/ABN) 12.0 - 16.0 Hematocrit 33.0(EXTER NAL/ABN) 36.0 - 46.0 Platelet 138(Choir Director al Lab) Blood specimen (specimen) 10/14/2014 11:22 AM EDT Historical Provider HEMATOLOGY ORDERA BLES documented in this encounter Visit Diagnoses Not on filedocumented in this encounter Care Teams Migratory Worker Relationship Specialty Start Date End Date Maine Dunn PA PCP - General 04/08/14 02/13/15 documented as of this encounter
--- OUTSIDE RECORDS SUMMARY | 2023-10-28 00:47 | XMS_ITS | Encounter Summary ---
Author Organization [facility] Address [facility] [place] [address] Care Team Providers Care Oyster Floater Name Role Phone Maine Dunn Primary Care Provider Reason for Visit * Reason Onset Date Comments Abnormal Labs 10/21/2014 Encounter Details Date Type Department Care Team (Late st Contact Info) Description 10/21/2014 Telephone Hematology [place] [address] Paige Hernandez MD [facility] HEMATOLOGY/[place] [address] Abnormal Labs Social History Tobacco Use Types Packs/Day Years [...] encounter Miscellaneous Notes * Telephone Encounter - Paige Hernandez - 10/21/2014 2:51 PM EDT Received call from [facility] laborer [facility] [place]. Patient had CBC drawn there this am and are abnormal as follows WBC -0.68 with ANC of 0.03, Plt of 6,000. Hb 10.5. Call made to patient and she feels well without bleeding or fever.She has been giving herself filgrastim shots as prescribed. Her only symptom is fatigue, otherwise she feels well. She is planned to have a temporary catheter placed and stem cells harvested tomorrow. I have asked her to present to [facility] ED Call made to [facility] ED and discussed with Dr Moura. Asked that pt be evaluated and receive a platelet transfusion. If evaluation concerning, he is to call me back otherwise patient to be discharged home to RTC tomorrow Plan -Pt to ED at [facility] for platelet transfusion and evalaution -To continue Neupogen injections Paige Hernandez MD Fellow, Hematology & Oncology Pager [phone] Addendum -Patient presented to [facility] yesterday and was told no platelets would be available for at least 4-5 hours. Patient proceeded to [facility] were she was then admitted for further management. documented in this encounter Plan of Treatment Upcoming Encounters Date Type Department Care Team (Late st Contact Info) Description 12/07/2023 12:00 PM EDT Office Visit Dermatology at [address] [address] Juan F Chappell MD [facility] DR RANDEE [place] [address] documented as of this encounter Visit Diagnoses Not on filedocumented in this encounter Care Teams Oyster Floater Relationship Specialty Start Date End Date Maine Dunn PA PCP - General 04/08/14 02/13/15 documented as of this encounter
--- OUTSIDE RECORDS SUMMARY | 2023-10-28 00:47 | XMS_ITS | Encounter Summary ---
Author Organization [facility] Address [facility] [place] [address] Care Team Providers Care Medical Collections Name Role Phone Maine Dunn Primary Care Provider [phone] Encounter Details Date Type Department Care Team (Late st Contact Info) Description 10/10/2014 Orders Only Hematology [place] [address] Светлана Boone RN DLBCL (diffuse large B [...] [facility] [address] [place] [address] Juan F Chappell MD [facility] DR [place] [address] documented as of this encounter Visit Diagnoses Diagnosis DLBCL (diffuse large B cell lymphoma) Other malignant lymphomas, unspecified site, extranodal and solid organ sites documented in this encounter Care Teams Medical Collections Relationship Specialty Start Date End Date Maine Dunn PA PCP - General 04/08/14 02/13/15 documented as of this encounter
--- OUTSIDE RECORDS SUMMARY | 2023-10-28 00:47 | XMS_ITS | Encounter Summary ---
[facility] Address [facility] [place] [address] Care Team Providers Care Interior Design Professor Name Role Phone Maine Dunn Primary Care Provider Reason for Visit * Reason Onset Date Comments Other 10/11/2014 BMT-PBSCT assess ment Encounter Details Date Type Department Care Team (Late st Contact Info) Description 10/11/2014 Telephone [place] [id number] Ghassan Ho MSW [facility] [address] PATIENT & [place] [address] Other (BMT-PBSCT assessment) Social History Tobacco Use Types Packs/Day Years [...] encounter Miscellaneous Notes * Telephone Encounter - Ghassan Ho MSW - 10/17/2014 3:49 PM EDT Office of Care Management - Blood and Marrow Transplant Program Psychosocial Assessment NURA FARRELL, [facility] [phone] 1. PRESENTING ISSUES Present at interview: Pt/TAIL RIPPER, during pt's planned admission for R-DHAP. Also with ongoing d/w BMT team and review of medical record. Pt description/presenting problems(s)/pertinent history/SCT plan: 64 y.o., female, Problem list/Initial dx date: For Auto-BPBSCT for dx DLBCL. For apheresis off of this cycle. YES NO Mental Health/Behavior Hx/barriers: _x__ ___ Pt describes onset of depression r/t menopause, using Ativan, considers it controlled. Also reported multiple life changes during past year-Illness, divorce after 40 y marriage. Dental care/coverage barriers: ___ _x__ Barriers to understanding SCT/recovery process ___ _x__ To degree this has been reviewed/dicussed. Comments/concerns: 2. FAMILY CONSTELLATION/SUPPORT SYSTEM/LIVING SPACE YES NO Migrant Leader/support barriers: ___ _x__ Marital Status: () () single (x) (Jbtqlh-jfzevvnay-zxh in support picture, though pt acknowledged she has been supporting him)() () Primary Support(s): () spouse (x) s/o () caregiver (x) other family (x) other () NONE Children: dtrs: Lila and Marisol Parents: Siblings: sister Kelly, brother-Ricardo (just lost spouse) Pets in the home: Other: S-O, Carlos, extended family, private therapist (who is moving to [place] for a year so this will be a loss for pt) friends and co-workers. Cousin's spouse is Head of hematology @ [employer] and pt has been consulting. [facility] [employer]. Lives with: Pre-SCT: alone Post-SCT: TBD but has options for support [employer]OND[employer]CHO[employer]INCIPAL PLAN IDENTIFIED _x__ ___ (Transportation, medication management, food preparation, home cleaning, etc.): BARRIERS: Comments/concerns Pt has had to cancel trips, including [place]. YES NO Living Space/Environmental Barriers: ___ _x__ Barriers: Inaccessible bathroom () Isolated road to home () Many stairs/steps () Mold/mildew/other contaminants () Unavailable running or hot water () Other () Heating source () oil () gas/propane () wood/pellet () electric () other: Comments/concerns: 3. ADVANCE CARE PLANNING YES NO Advance Directives Completed: _x__ ___ On file: _x__ ___ Requested copy for EMR: ___ ___ Primary advocate/contact center rep(s): maryan Comments/concerns: 4. 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 Expects to continue this until February and then transition to COBRA. Caregiver occupation/status: () F-T () P-T () seasonal () retired () disabled () unemployed () FMLA() other Comments/concerns: INSURANCE YES NO Medical/Dental/Rx insurance barriers: ___ _x__ PRIMARY: (x) private-type: [place]--A/O 11/14 WILL BE SWITCHING TO CIGNA () Medicare (from disability: () Y () N) () Medicaid () [place] () other () NSA () NONE How paid for: (x) Employer () spouse () self/OOP () group home () COBRA () other: [facility] In-Network: _x__ ___ SECONDARY/OTHER: () private-type: () Medicare () Medicare Supplement-type: () Medicaid () [place] () other () NSA () NONE How paid for: () Employer () spouse () self/OOP () group home () COBRA () other COBRA: Start/end date: ___ ___ Dental coverage _x__ ___ Service-branch: ___ _x__ [place] benefits: ___ ___ PRESCRIPTIONS Rx coverage plan: _x__ ___ Program: (x) same as insurance () Medicare D: Program info: () [place] () other () NONE Co-pays/limits/Cap amount concerns: If in Medicare Part D Plan, pt's coverage in relation to the [facility]: Pharmacy Information: [facility] Comments/concerns: ADDITIONAL FINANCIAL ASSISTANCE PROGRAMS: () NSA: () active: () pending: () application discussed/provided () [employer] Chronic [employer] Fund () active () information provided () VENNCOMM () active () application initiated () Leukemia & Lymphoma Society Co-Pay: () active () application initiated () Lymphoma Research Foundation () active () information provided () Social Security Disability/SSI: () active: a/o:() information provided () other: Comments/concerns: discussed opportuity to review other plans. Pt defers until after d/c. Understands she can consult with OP support team. 5. COPING PROCESSES YES NO Identified coping barriers: ___ _x__ Coping strengths/weakness, literacy, intimacy/sexuality: Significant life changes especially over the past year have been very challenging, but pt describes her strengths and ability to keep looking forward. I have been tested and seeing how others reach out to me strengthens and helps me. Understands her situation and potential for PBSCT process. Feels she has strong enough support and personal perspectives to manage this and also through recovery process. Pt feels connected to her therapistand wll miss this support during the next year. Will seek substitute for time being. 6. SUBSTANCE USE/HISTORY: YES NO Identified substance abuse stressors: ___ _x__ Tobacco (smoking/chew) ___ _x__ ETOH _x__ ___ social Marijuana/Other ___ _x__ Cessation programs offered: ___ ___ Comments/concerns: 7. SPIRITUAL/TAMICA-ISLAM/CULTURAL PREFERENCES: Personal strengths and spirituality, especially helping others 8. ASSESSMENT/PLAN: Pt finishing planned chemo and for stem cell collection off of this cycle for Auto-PBSCt for dx DLBCL. Good and available support system and care plan identified. AD's on file. Noidentified financial barriers and pt is actively focused on her current and future needs. Will confirm with team expectation of transition from BCBS to CIGNA in November. No identified coping barriers. No other identified psychosocial barriers to continue PBSCT consideration. Will communicate with BMT Team. 9: OVERALL TRANSPLANT CANDIDATE RISK ASSESSMENT (BASED ON ASSESSMENT AND REVIEW OF PACT TOOL): excellent candidate. PSA edit 02/18/14 documented in this encounter Plan of Treatment Upcoming Encounters Date Type Department Care Team (Late st Contact Info) Description 12/07/2023 12:00 PM EDT Office Visit Dermatology at [address] [place] [address] Juan F Chappell MD [facility] [address] [facility] [address] documented as of this encounter Visit Diagnoses Not on filedocumented in this encounter Care Teams Interior Design Professor Relationship Specialty Start Date End Date Maine Dunn PA PCP - General 04/08/14 02/13/15 documented as of this encounter
--- OUTSIDE RECORDS SUMMARY | 2023-10-28 00:47 | XMS_ITS | Encounter Summary ---
[place] [address] Care Team Providers Care Blanket Winder Helper Name Role Phone Maine Dunn Primary Care Provider [phone] Reason for Visit * Reason Onset Date Comments Prior Authorization 10/11/2014 Neupogen Encounter Details Date Type Department Care Team (Late st Contact Info) Description 10/11/2014 Telephone Hematology [place] [id number] Luz Holman Prior Authorization (Neupogen) Social History Tobacco Use Types Packs/Day Years [...] encounter Miscellaneous Notes * Telephone Encounter - Luz Holman, BIOMEDICAL EQUIPMENT TECH - 10/11/2014 10:09 AM EDT Prior Authorization for Neupogen ID#[id number] Call placed to [facility] ([phone]) for PA of Neupogen 300 mcg 11/23 Neupogen 480 mcg 11/23 Rationale:Stem cell mobilization--Lymphoma (202.80) Spoke w/Terri PA Valid through: Approved 10/10/17 SOPHY# [id number] Copay: $ 0/30d supply at retail pharmacy documented in this encounter Plan of Treatment Upcoming Encounters Date Type Department Care Team (Late st Contact Info) Description 12/07/2023 12:00 PM EDT Office Visit Dermatology at [facility] [address] [place] [address] Juan F Chappell MD [facility] DR RANDEE [place] [address] documented as of this encounter Visit Diagnoses Not on filedocumented in this encounter Care Teams Blanket Winder Helper Relationship Specialty Start Date End Date Maine Dunn PA PCP - General 04/08/14 02/13/15 documented as of this encounter
--- OUTSIDE RECORDS SUMMARY | 2023-10-28 00:47 | XMS_ITS | Encounter Summary ---
Author Organization [facility] Address [facility] [place] [address] Care Team Providers Care Top Lift Compresser Name Role Phone Maine Dunn Primary Care Provider Encounter Details Date Type Department Care Team (Late st Contact Info) Description 10/09/2014 10:54 AM EDT - 10/09/2014 11:59 PM EDT Hospital Encounter [place] [address] SCHEDULE 1, PFT Kimberly Mondragon MD [facility] [address] HEMATOLOG[place] [address] Lymphoma Discharge Disposition: Home Social History Tobacco [...] for Anxiety. 30 tablet 0 10/11/2014 11/04/2014 LORazepam (ATIVAN) 0.5 mg TabletIndications:Lymph vivien Take 1 tablet by mouth every 6 hours as needed for Anxiety. Patient takes one tablet in the morning, and two tablets at night 30 tablet 0 09/30/2014 11/04/2014 diphenhydrAMINE-Acetami nophen 25-500 mg Tablet Take 50-1,000 mg by mouth. 10/11/2014 docusate sodium (COLACE) 100 mg Capsule Take 100 mg by mouth 2 times daily. 10/02/2015 senna (SENOKOT) 8.6 mg Tablet Take 1 tablet by mouth daily. 12/25/2015 acetaminophen (TYLENOL) 500 mg Tablet Take 1,000 mg by mouth every 6 hours as needed. 10/11/2014 [place]-3 Fatty Acids-Vitamin E (FISH OIL) 1,000 mg CapsuleIndications:Lymp fawn Take by mouth. 01/29/2015 Calcium 500 mg TabletIndications:Lymph vivien Take by mouth. 01/29/2015 Cholecalciferol, Vitamin D3, (VITAMIN D-3) 2,000 unit CapsuleIndications:Lymp fawn Take 1,000 Units by mouth. 01/29/2015 escitalopram (LEXAPRO) 10 mg tablet 03/08/2005 01/03/2015 documented as of this encounter Procedure Notes * Sarbjit Tsang MD - 10/09/2014 9:35 PM EDTAssociated Order(s): PULMONARY FUNCTION TEST FVC , FEV1, FEV1/FVC within normal limits. Diffusing capacity within normal limits. IMPRESSION: Within normal limits. documented in this encounter Plan of Treatment Upcoming Encounters Date Type Department Care Team (Late st Contact Info) Description 12/07/2023 12:00 PM EDT Office Visit Dermatology at [facility] [address] [place] [address] Juan F Chappell MD [facility] [place] [address] documented as of this encounter Procedures Procedure Name Priority Date/Time Associated Diagnosis Comments COMMON PULMONARY FUNCTION TEST Routine 10/09/2014 9:35 PM EDT Lymphoma documented in this encounter Results * Pulmonary [...] sites documented in this encounter Care Teams Top Lift Compresser Relationship Specialty Start Date End Date Maine Dunn PA PCP - General 04/08/14 02/13/15 documented as of this encounter
--- OUTSIDE RECORDS SUMMARY | 2023-10-28 00:47 | XMS_ITS | Encounter Summary ---
Author Organization [facility] Address [facility] [place] [address] Care Team Providers Care Riverine Assault Craft Crewman Name Role Phone Maine Dunn Primary Care Provider [phone] Reason for Visit * Reason Comments Follow-up Encounter Details Date Type Department Care Team (Late st Contact Info) Description 09/30/2014 9:00 AM EDT Follow-Up [place] [phone] Kimberly Mondragon MD [facility] DR HEMATOLOGY [place] [address] Lymphoma Discharge Disposition: Home Social History Tobacco [...] Sign Reading Time Taken Comments Blood Pressure 118/70 09/30/2014 8:59 AM EDT Pulse 82 09/30/2014 8:59 AM EDT Temperature 36.6 ??C (97.9 ??F) 09/30/2014 8:59 AM ED T Respiratory Rate 17 09/30/2014 8:59 AM EDT Oxygen Saturation 99% 09/30/2014 8:59 AM EDT Inhaled Oxygen Concentration - - Weight 66.7 kg (147 lb 0.8 oz) 09/30/2014 8:59 A M EDT Height 159.1 cm (5' 2.64) 09/30/2014 8:59 AM ED T Body Mass Index 26.35 09/30/2014 8:59 AM EDT documented in this encounter Progress Notes * Kimberly Mondragon MD - 09/30/2014 10:37 [place] [address] FOLLOW-UP PATIENT EVALUATION PROBLEM LIST: Patient Active Problem List Diagnosis ??? 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 PET with stage III A disease. BMBx with low grade lymphoma; no large cell. LDH = 412. IPI = 3 (age,stage, LDH) Plan for RCHOP chemo vs ECOG protocol. ?? Cycle 1 R-CHOP given on 04/12/14, with Neulasta support ?? Cycle 2 R-CHOP given on 05/01/14, with Neulasta support ONCBCN ONCOLOGY (AMB) 04/12/2014 04/15/2014 05/01/2014 05/03/2014 cyclophosphamide (CYTOXAN) IV 1,300 mg 1,300 mg DOXOrubicin (ADRIAMYCIN) IV 85 mg 85 mg pegfilgrastim (NEULASTA) SubQ 6 mg 6 mg riTUXimab (RITUXAN) IV 650 mg 650 mg vinCRIStine (ONCOVIN) IV 2 mg 2 mg ??? Depression with anxiety INTERIM HISTORY OF PRESENT ILLNESS: It was my pleasure to see Myriam Vivas back in clinic today. Myriam Vivas is a 63 y.o. 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 I last saw her at the time of her PET scan which showed some residual disease. She underwent a bronchoscopic biopsy which revealed a monoclonal lymphoid process consistent with her previous. See path results from below. She is recovered from her last chemotherapy nicely. It was in July. She is working almost full-timeagain. She's cut back on her Ativan use. She is looking forward to a trip with [place] in early October. She feels that many of the side effects from the chemotherapy have subsided. Her starting togrow back again. ROS Energy level:improved Pain: No Appetite:good Fevers/chills/sweats:No Bruising/bleeding/melena:No Recent infections:No HEENT: negative Nausea/vomiting/diarrhea/constipation:No SOB/HAUSER/chest pain:No Change in adenopathy or other masses:No Unexpected weight loss or gain:No Skin rashes or petechiae:No Musculoskeletal complaints:No Extremities: Negative upper and lower bilaterally Neurologic symptoms:No Mood: Normal Sleep: Difficulty sleeping MEDS: Outpatient Prescriptions Marked as Taking for the 09/30/14 encounter (Follow-Up) with Kimberly Mondragon MD Medication Sig Dispense Refill ??? diphenhydrAMINE-Acetaminophen 25-500 mg Tablet Take 50-1,000 mg by mouth. ??? docusate sodium (COLACE) 100 mg Capsule Take 100 mg by mouth 2 times daily. ??? senna (SENOKOT) 8.6 mg Tablet Take 1 tablet by mouth daily. ??? [place]-3 Fatty Acids-Vitamin E (FISH OIL) 1,000 mg Capsule Take by mouth. ??? Calcium 500 mg Tablet Take by mouth. ??? Cholecalciferol, Vitamin D3, (VITAMIN D-3) 2,000 unit Capsule Take 1,000 Units by mouth. ??? escitalopram (LEXAPRO) 10 mg tablet Allergies: Allergies Allergen Reactions ??? Tegaderm [Transparent Dressings] Other (See Comments) Unsure if actual allergy, please try [id number] Skin tears/rawness INTERIM SOCIAL HISTORY Changes in job, home situation, tobacco or alcohol use: see HPI PHYSICAL EXAM BP 118/70 mmHg Pulse 82 Temp(Src) 36.6 ??C (97.9 ??F) (Temporal) Resp 17 Ht 159.1 cm (5' 2.64) Wt 66.7 kg (147 lb 0.8 oz) BMI 26.35 kg/m2 SpO2 99% Body surface area is 1.72 meters squared. GENERAL: Myiram Vivas appears well and is in no [...] previous visit (from the past 72 hour(s)). Pathology Results: CLINICAL INFORMATION 63 yo female with diffuse large B-cell lymphoma and persistent paratracheal ammon mass. SPECIMEN PROCESSING FCM: [id number] [id number] Cells for immunophenotypic analysis were derived from FNA. CD45 vs side scatter gating was utilized to identify a lymphoid analysis region that comprises approximately 82-84% of all cells. The following markers were assesed: CD2, CD3, CD4, CD5, CD7, CD8, CD10, CD19, CD45, CD56, kappa light chain and lambda light chain. DIAGNOSIS Monoclonal, kappa-restricted B-cell population identified (see Discussion). 09/27/14 DLO 09/27/14 Verified by: ALICIA MESSINA Hematopathologist (Electronic Signature) DISCUSSION CD19+ B-cells in this FNA [...] by a monoclonal, kappa light chain-restricted B-cell lymphoproliferative neoplasm. This immunophenotype is similar to that previously identified in the original lesion (see [id number]) and suggests the presence of residual/recurrent disease. Complete diagnostic evaluation rests with morphologic review, however, which is currently in progress and the results of which will be reported separately when available. RADIOLOGY STUDIES REVIEWED: EXAMINATION: PET/CT STANDARD (Skull base to Mid-thigh) CLINICAL HISTORY: diffuse large B cell lymphoma TECHNIQUE: Procedure: Following IV injection of 30-aimrbv-4-deoxyglucose (FDG) a standard uptake of approximately 60 minutes, a noncontrast CT scan followed by a PET scan were acquired from the base of the skull to mid thighs. The noncontrast CT was used for anatomic localization and photon attenuation correction of the PET scan Blood glucose level: 88 (mg/dL) FDG dose: 4.3 mCi COMPARISON: 06/10/2014 FINDINGS: HEAD/NECK: Normal activity in all soft tissue regions of the neck and visualized lower head. CHEST: There has been significant decrease in size and activity of the right paratracheal ammon mass. Note made of multiple non-FDG avid enlarged left axillary lymph nodes, which appear slightly diminished in size when compared to prior. Right-sided MediPort with tip at the cavoatrial junction. ABDOMEN/PELVIS: Normal activity in all soft tissue regions. SKELETON/EXTREMITIES: Normal activity in all regions of the axial and visualized appendicular skeleton. IMPRESSION IMPRESSION: 1. Partial but significant improvement of hypermetabolic right paratracheal conglomerate ammon mass consistent with lymphoma. 2. Slight interval decrease in size of non-FDG avid left axillary lymph nodes most likely representing treated lymphoma. 3. No other sites of active lymphoma. ASSESSMENT/PLAN: It was my pleasure to see Myriam back in clinic today. She had a bronchoscopy last week which went relatively well. She still has some residual cough. She likes Dr. Martin very much. I explained that the results to confirm that there is some residual lymphoma. It's monoclonal and kappa restricted similar to the previous biopsy. I reviewed her PET scans, and clearly from her PET-4 to PET-6 she continued to improve. The only active disease as this paratracheal lymph node. She had a significant amount of PET avid disease on her original PET scan. I'm encouraged that the lymph node continues to improve with each treatment. I view this differently than I would had she had a response and then progressed. Going to discuss her case at lymphoma tumor board tomorrow. She has primary factory disease, however, the continued improvement is very encouraging. Options would be to proceed with radiation therapy. Another option would be salvage chemotherapy to get her PET negative and then do radiation therapy. Given the primary refractory disease some would advocate for an autologous stem cell transplant. Ithink this might be a bit much given her clinical picture. I would save the autologous transplant, in case she ever relapses again. Her first sample was not typed for GC versus ABC subtyped. We will be able to do this on her present biopsy. I've asked pathology to add that on. That might help us determine if Revlimid might be an option for her. i gave her a script for ativan to help w/ her anxiety - #20 tabs. She will no longer be on study. I will advise our blood coordinator. I will call her after the tumor board with our recommendations. She is also asked that I send a note and tumor Board note to her friend, Dr. Sacha Jean, who is been advising her. I'm happy to do so. 30 min with 25 in discussion. total time: time in counselling: Copy SOPHY FUNES (General) documented in this encounter Plan of Treatment Upcoming Encounters Date Type Department Care Team (Late st Contact Info) Description 12/07/2023 12:00 PM EDT Office Visit Dermatology at [address] [address] Juan F Chappell MD [facility] DR [facility] [place] [address] documented as of this encounter Visit Diagnoses Diagnosis Lymphoma Other malignant lymphomas, unspecified site, extranodal and solid organ sites documented in this encounter Care Teams Riverine Assault Craft Crewman Relationship Specialty Start Date End Date Maine Dunn PA PCP - General 04/08/14 02/13/15 documented as of this encounter
--- OUTSIDE RECORDS SUMMARY | 2023-10-28 00:47 | XMS_ITS | Encounter Summary ---
Author Organization Formerly [facility] Address [facility] [place] [address] Care Team Providers Care Rubber Extrusion Machine Operator Name Role Phone Maine Dunn Primary Care Provider [phone] Encounter Details Date Type Department Care Team (Late st Contact Info) Description 09/26/2014 4:28 PM EDT - 09/26/2014 5:58 PM EDT [place] [phone] Camryn Gutierrez MD [facility] [place] [address] ENDOBRONCHIAL ULTRASOUND (EBUS) Social History Tobacco Use Types Packs/Day Years [...] Contact Numbers Tuesday - Tuesday Pulmonary Clinic [phone] Same Day Endoscopy [phone] Otherwise call [facility] and ask to speak to the Pulmonary Doctor manager action [phone] Discharge instructions reviewed with patient who expresses [...] mouth every 6 hours as needed. 10/11/2014 [place]-3 Fatty Acids-Vitamin E (FISH OIL) 1,000 mg [...] and 250mcg Fentanyl. Pratik García RN Endo [phone] documented in this encounter Plan of Treatment Upcoming Encounters Date Type Department Care Team (Late st Contact Info) Description 12/07/2023 12:00 PM EDT Office Visit Dermatology at [facility] [address] [place] [address] Juan F Chappell MD [facility] [address] [place] [address] documented as of this encounter Procedures Procedure Name Priority Date/Time Associated Diagnosis Comments CYTOPATHOLOGY NON-GYNECOLOGICAL Routine 09/26/2014 5:14 PM EDT IMMUNOPHENOTYPING FLOW CYTOMETRY (BLOOD) Routine 09/26/2014 5:13 PM EDT NON-DRY CELL TESTER FLOW CYTOMETRY REPORT Routine 09/26/2014 5:00 PM EDT NON-DRY CELL TESTER FINAL REPORT Routine 09/26/2014 5:00 PM EDT CYTOPATHOLOGY NON-GYNECOLOGICAL Routine 09/26/2014 4:10 PM EDT ENDOBRONCHIAL ULTRASOUND (EBUS) 09/26/2014 3:53 PM EDT Lung mass BRONCHOSCOPY Routine 09/26/2014 2:50 PM EDT documented in this encounter Results * Cytopathology Non-Gynecological (09/26/2014 5:14 PM EDT) AP Specimen 09/26/2014 5:14 PM EDT 09/26/2014 5:14 PM EDT [facility]ative [facility] 09/26/2014 5:14 PM EDT Specimen requisition ordered. ??Separate Pathology report to follow Camryn Gutierrez MD PATHOLOGY/CYTOLOGY O RDERABLES Performing Organization Address [facility] Co de Phone Number [facility] * Immunophenotyping Flow Cytometry (09/26/2014 5:13 PM EDT) Immunophenotyping Flow See Comment [facility] Comment: When completed by the Pathologist, the Flow Cytometry Report ([id number]) will display under the Pathology Results section within eDH. Specimen of unknown material (specimen) Other / Unknown 09/26/2014 5:13 PM EDT 09/27/2014 9:09 AM EDT Narrative Resulting Agency Comment Spec In Lab Kiki Brizuela MD HEMATOLOGY ORDERABLE S Performing Organization Address [facility] Co de Phone Number [facility] * Non-Pickle Water Pump Operator Final Report (09/26/2014 5:00 PM EDT) Diagnosis Discussion [id number] ? Location: 4T The signing pathologist has (i) examined the relevant preparation(s) for the specimen(s) and (ii) rendered or confirmed the diagnosis(es). . ? Non-Pickle Water Pump Operator Final DIAGNOSIS Positive for Malignancy 09/30/14 ?Screened [...] was not informative according to the [employer] rv parts and service director, but the strong BCL2 expression in the absence of MUM1 suggests a germinal center origin via the Muris rv parts and service director. Immunohistochemistry Studies: Formalin-fixed, paraffin-embedded tissue sections are studied using the [employer] system technique with appropriate positive and negative [...] by the Clinical Flow Cytometry Laboratory at [facility]. It has not been cleared or [...] laboratory testing. . SPECIMEN PROCESSING FCM: [id number] [id number] Cells for immunophenotypic analysis were derived from [...] paratracheal ammon mass. 10/01/2014 12:00 PM EDT [facility] LYMPH NODE SPECIMEN / Unknown 09/26/2014 5:00 PM EDT 09/26/2014 5:00 PM EDT Camryn Gutierrez MD PATHOLOGY/CYTOLOGY O RDERABLES [facility] [place] [address] * Non-DRY CELL TESTER Flow Cytometry Report (09/26/2014 5:00 PM EDT) Pathologist [facility] Non-DRY CELL TESTER Flow Cytometry Report ? [facility] ? Provider: ?? CAMRYN GUTIERREZ ? Pt. Name: ?? MYRIAM DE SOUZA ? Acc #: ?[id number] ? Pt. ? Col Date: ?? 09/26/2014 [...] ? the Clinical Flow Cytometry Laboratory at [facility]- ? [facility] ? Provider: ?? CAMRYN GUTIERREZ ? Pt. Name: ?? MYRIAM DE SOUZA ? Acc #: ?[id number] ? Pt. ? Col Date: ?? 09/26/2014 ? /Sex: ?1950,(63 years),Female ? Rec Date: ?? 09/26/2014 ? LOC: ?4T ? ANALYTICAL CELL PATHOLOGY ? [facility]. It has not been cleared or [...] perform high complexity clinical laboratory testing. [facility] 09/26/2014 5:00 PM EDT Camryn Gutierrez MD PATHOLOGY/CYTOLOGY Luca DANIELSON Performing Organization Address [facility] Co de Phone Number [facility] * Cytopathology Non-Gynecological (09/26/2014 4:10 PM EDT) AP Specimen 09/26/2014 4:10 PM EDT 09/26/2014 4:10 PM EDT Narrative [facility] - 09/26/2014 4:10 PM EDT Specimen requisition ordered. ??Separate Pathology report to follow Camryn Gutierrez MD PATHOLOGY/CYTOLOGY Luca DANIELSON Performing Organization Address [facility] Co de Phone Number [facility] * BRONCHOSCOPY (09/26/2014 2:50 PM EDT) BRONCHOSCOPY [facility] Bronchoscopy Patient Name: Myriam De Souza ? [...] [employer] documented in this encounter Visit Diagnoses Diagnosis Lung mass Swelling, mass, or lump in chest documented in this encounter Administered Medications Inactive Administered Medications - up to 3 most recent administrations Medication Order MAR Action Action Date Dose Rate Site albuterol (PROVENTIL) nebulizer solution ONCE PRN, Starting on Cece 09/26/14 at 1540, Until Cece 09/26/14 at 1742, Intra-Operative (Intra-Procedure), Routine Given 09/26/2014 3:40 PM EDT 2.5 mg fentaNYL 50 mcg/mL multi-dose injection ONCE PRN, Starting on Cece 09/26/14 at 1557, Until Cece 09/26/14 at 1742, Intra-Operative (Intra-Procedure), Routine Given 09/26/2014 4:51 PM EDT 25 mcg Given 09/26/2014 4:40 PM EDT 25 mcg Given 09/26/2014 4:25 PM EDT 50 mcg lidocaine (XYLOCAINE) 2 % jelly ONCE PRN, Starting on Cece 09/26/14 at 1617, Until Cece 09/26/14 at 1742, Intra-Operative (Intra-Procedure) Given 09/26/2014 4:17 PM EDT 1 Bottle lidocaine (XYLOCAINE) 4 % (40 mg/mL) external solution ONCE PRN, Starting on Cece 09/26/14 at 1655, Until Cece 09/26/14 at 1742, Intra-Operative (Intra-Procedure) Given 09/26/2014 4:55 PM EDT 10 mLs midazolam (PF) (VERSED) 1 mg/mL multi-dose injection ONCE PRN, Starting on Cece 09/26/14 at 1557, Until Cece 09/26/14 at 1742, Intra-Operative (Intra-Procedure), Routine Given 09/26/2014 4:40 PM EDT 0.5 mg Given 09/26/2014 4:25 PM EDT 1 mg Given 09/26/2014 4:13 PM EDT 1 mg documented in this encounter Active and [...] RN) documented in this encounter Care Teams Rubber Extrusion Machine Operator Relationship Specialty Start Date End Date Maine Dunn PA PCP - General 04/08/14 02/13/15 documented as of this encounter
--- OUTSIDE RECORDS SUMMARY | 2023-10-28 00:47 | XMS_ITS | Encounter Summary ---
Author Organization [facility] Address [facility] [place] [address] Care Team Providers Care Safety Attendant Name Role Phone Maine Dunn Primary Care Provider [phone] Reason for Visit * Reason Comments Referral Abnormal X-ray Encounter Details Date Type Department Care Team (Late st Contact Info) Description 09/26/2014 10:45 AM EDT Office [place] [phone] Jamey Gutierrez MD [facility] [place] [address] Lung nodule; Lymphoma Discharge Disposition: Home Social History Tobacco [...] Sign Reading Time Taken Comments Blood Pressure 123/66 09/26/2014 11:17 AM EDT Pulse 81 09/26/2014 11:17 AM EDT Temperature - - Respiratory Rate 20 09/26/2014 11:17 AM EDT Oxygen Saturation 99% 09/26/2014 11:17 AM EDT Inhaled Oxygen Concentration - - Weight 65.8 kg (145 lb) 09/26/2014 11:17 AM EDT Height 157.5 cm (5' 2) 09/26/2014 11:17 AM EDT Body Mass Index 26.52 09/26/2014 11:17 AM EDT documented in this encounter Progress Notes * Jamey Gutierrez MD - 09/26/2014 11:46 AM EDT This is a patient with a history of lymphoma with a PET scan showing some degree of uptake in the distal right trachea. She is sent for confirmation or reputation of persistent disease. The patient was originally diagnosed with lymphoma in 2014 with a left axillary lymph node biopsy. She had stage IIIa disease. She was treated with RCHOP every 3 weeks for 6 cycles. On discontinuation of therapy she had a PET scan showing residual uptake in the right paratracheal space. She is sent to me for evaluation of feasibility of possible bronchoscopy for tissue diagnosis. She has no symptoms referable to her chest. She denies difficulty chewing, swallowing, cough, chestpain. She denies significant fatigue or change in weight or energy or appetite. Review of systems: She denies headaches, change in hearing or vision, nasal congestion, difficulty chewing or swallowing, chest pain or pressure, shortness of breath or cough, nausea or vomiting, change in bowel or bladder habits. She notes that her energy level is improving. She thinks her weight and appetite are stable. All other systems reviewed and found negative. Past medical history: Lymphoma as above Depression and anxiety Social history: Smoked for only 3 years in her teens Family history: Negative for lung disease Blood pressure 123/66, pulse 81, resp. rate 20, height 157.5 cm (5' 2), weight 65.772 kg (145 lb),SpO2 99 %. Delightful woman with a shaved head. She speaks in full sentences without cough or wheeze. She is in no distress. Normocephalic/atraumatic Cranial nerves intact Nares clear Oropharynx is clear No cervical or submandibular supraclavicular lymphadenopathy Normal thoracic expansion with good air movement bilaterally, no wheezes or rhonchi Regular rate and rhythm Abdomen is benign No rash, no petechiae No edema PET scan from September 02 is compared to previous PET scan from May. Both are reviewed by me and show IMPRESSION: 1. Partial but significant improvement of hypermetabolic right paratracheal conglomerate ammon mass consistent with lymphoma. 2. Slight interval decrease in size of non-FDG avid left axillary lymph nodes most likely representing treated lymphoma. 3. No other sites of active lymphoma. I agree with this reading Results for LUIS FERNANDO VIVAS ( ) as of 09/26/2014 12:10 Ref. Range 09/02/2014 10:29 Sodium Latest Range: 135-145 mmol/L 141 Potassium Latest Range: 3.5-5.0 mmol/L 4.2 Chloride Latest Range: 98-107 mmol/L 100 CO2 Latest Range: 22-31 mmol/L 28 Anion Gap Latest Range: 5-15 mmol/L 13 BUN Latest Range: 8-18 mg/dL 20 (H) Creatinine Latest Range: 0.70-1.20 mg/dL 0.67 (L) Estimated GFR Latest Range: >=60 >60 Glucose Lvl No range found 94 Calcium Latest Range: 8.5-10.5 mg/dL 10.0 Total Protein Latest Range: 6.1-8.0 gm/dL 7.1 Albumin Latest Range: 3.2-5.2 gm/dL 4.6 Total Bilirubin Latest Range: 0.2-1.3 mg/dL 0.8 Bili, Direct Latest Range: 0.0-0.3 mg/dL 0.1 Alk Phos Latest Range: 40-104 unit/L 111 (H) AST Latest Range: 0-30 unit/L 33 (H) ALT Latest Range: 0-30 unit/L 41 (H) LDH Latest Range: 110-220 unit/L 219 Bone marrow from September 02, 2014 is viewed by me and shows Diagnosis--- 1. DLBCL, low grade in bone marrow, by history. 2. Slightly hypercellular marrow with maturing trilineage hematopoiesis. Assessment/plan Patient with a history of diffuse large B-cell lymphoma with persistent FDG uptake in the right paratracheal space on restaging. Whether this represents inflammation or infection or residual disease is not clear. The lesion is amenable to tissue sampling by bronchoscopy using endobronchial ultrasound. I have discussed the risks and benefits of bronchoscopy including bleeding, popped long, and intubation. After discussing these in some detail, the patient is willing to proceed. I will plan bronchoscopy under conscious sedation using endobronchial ultrasound with cytopathologypresent. Follow-up pending results. documented in this encounter Plan of Treatment Upcoming Encounters Date Type Department Care Team (Late st Contact Info) Description 12/07/2023 12:00 PM EDT Office Visit Dermatology at [facility] [address] [place] [address] Juan F Chappell MD [facility] [address] [place] [address] documented as of this encounter Visit Diagnoses Diagnosis Lung nodule Solitary pulmonary nodule Lymphoma Other malignant lymphomas, unspecified site, extranodal and solid organ sites documented in this encounter Care Teams Safety Attendant Relationship Specialty Start Date End Date Maine Dunn PA PCP - General 04/08/14 02/13/15 documented as of this encounter
--- OUTSIDE RECORDS SUMMARY | 2023-10-28 00:47 | XMS_ITS | Encounter Summary ---
Author Organization [facility] Address [facility] [place] [address] Care Team Providers Care [employer]sembler [employer] Name Role Phone Maine Dunn Primary Care Provider Reason for Visit * Reason Comments IV Medication Encounter Details Date Type Department Care Team (Late st Contact Info) Description 10/22/2014 12:17 AM EDT - 10/25/2014 3:00 PM EDT Hospital Encounter [address] [place] [address] Avtar Garcia MD [facility] [place] [address] Sylvester Odom [place] [facility] [place] HEMATOLOGY[place] [address] Sally Newton MD [facility] [place] [address] DLBCL (diffuse large B cell lymphoma) Discharge [...] Sign Reading Time Taken Comments Blood Pressure 112/72 10/25/2014 12:30 PM EDT Pulse 62 10/25/2014 12:30 PM EDT Temperature 36.8 ??C (98.2 ??F) 10/25/2014 1 2:30 PM EDT Respiratory Rate 18 10/25/2014 12:3 0 PM EDT Oxygen Saturation 94% 10/25/2014 12: 30 PM EDT Inhaled Oxygen Concentration - - Weight 68.4 kg (150 lb 12.7 oz) 10/25/2014 4:11 AM EDT Height 161 cm (5' 3.39) 10/22/2014 2:46 AM EDT Body Mass Index 26.39 10/22/2014 2:46 AM EDT documented in this encounter Discharge Summaries * Bessie Mobley MD - 10/25/2014 4:23 PM EDT Inpatient - Discharge Summary Patient Name: Myriam De Souza Patient Age: 64 y.o. Birthdate: 1950 Admit date: 10/22/2014 Discharge date and time: 10/25/2014 Attending Physician: Sylvester Odom MD === Follow-up Recommendations for Providers: === (1) Please repeat basic labs (BMP, CBC, magnesium) at next appointment 11/04 (2) Evaluate Creatinine for resolution of LOUISE Discharge Diagnoses (Hospital Problems) and Secondary Diagnoses (Chronic Problems): Active Hospital Problems Diagnosis ??? Depression with anxiety ??? Hypokalemia [...] was not informative according to the [employer] sales support advisor, but the strong BCL2 expression in the absence of MUM1 suggests a germinal center origin via the Muris sales support advisor. Lymphoma TB discussion 10/01/14 Recommendations for salvage chemotherapy and autologous stem cell transplant. Resolved Hospital Problems Diagnosis Date Resolved No resolved problems to display. There are no active non-hospital problems to display for this patient. Operations/Major Procedures: Other Major Procedures: Catheter placement and stem cell harvest 10/23 Catheter removed 10/24 History of Presentation: Myriam De Souza is a 64 y.o. female with PMHx of DLBCL Stage IIIa w/ [place] [facility] [place]11 after 1 cycle of R-DHAP presents to [facility] ED for plt transfusion w/ platelets of 60,000 on routine labs. She reports since her discharge she has continued to feel tired and not back to her baseline, she t akes frequent naps throughout the day. Her peak energy is 4pm-10pm. She has had a decrease in energy and endorses feeling shaky on her feet. Denies any lightheadedness or dizziness. She believes her head is clearer since discharge and is able to focus more. She has had a decrease in her PO intake of both food and liquids. She drinks 4 small glasses of water a day, some oumar-markus and snapple. She has had some nausea but no vomiting. No change in urination, w/ the exception of increase with night time urinating. No dysuria or hematuria. She has had some muscle pain bilaterally in her upper extremities that resolves with claritin. She had 1 episode of BRBPR which she believes was hemorrhoids. Her last colonoscopy was at [facility] 10ya and was normal per her. Denies any easy bruising, epistaxis, bleeding with teeth brushing, hematuria, or hematomas. She feels if she had not had the lab abnormality she would not have come to the ED. No sick contacts, recent travel or consumption of unwashed fruits/veggies or unpasteurized dairy. Hospital Course: # Diffuse large B cell lymphoma, LOUISE with Electrolyte Disturbance, transfusion dependant thrombocytopenia, and neutropenia Myriam De Souza is a 64 y.o. female with DLBCL Stage IIIa s/p 1 cycle of R-DHAP on 10/09-10/[address] [facility] on 10/21 for thrombocytopenia requiring a platelet transfusion and LOUISE prior to herscheduled catheter placement and stem cell harvest. The stem cells were harvested 10/23. Her LOUISE, likely secondary to poor PO fluid intake after her R-DHAP in September, consisted of a presenting creatinine 2.91 which resolved with fluids and her creatinine upon discharge was 1.5. Her course was complicated with uncontrolled nausea and vomiting which resolved when her medications became scheduled withthe addition of PRN compazine. Central IJ line was placed 10/23/14 and stem cells were harvested. After this Myriam had some electrolyte imbalances (namely hypomagnesemia, hypokalemia) requiring repletion. She also had a new O2 requirement of 1L and was kept another day for observation. A CXR was performed which revealed no edema/PNA but b/l small pleural effusions. The next morning she was breathing comfortably on room air and all electrolytes were within normal limits, she required no electrolyte repletion. She was feeling well with no complaints and discharged to home, with planned follow up and admission 11/04/14. Important Studies and Lab Data: Labs on day of discharge: CBC: WBC 19.8 Hb 7.9 PLT 31 ANC 1739 BMP: Na 144 K 3.8 Cl 100 CO2 35 BUN 13 Cr 1.50 Ca 8.8 Mag 0.73 Studies: CXR (10/24/14): IMPRESSION: No pneumonia or other acute cardiopulmonary process. Decreased bulk of mediastinal lymphadenopathy.New small bilateral pleural effusions. Pending Studies and Lab Data: No current labs Discharge Conditions/Prognosis: Stable Discharge to: Home Discharge Medications: Your Medications Notice Some of the medications listed here do not show instructions, such as how often to take the medication. Ask your doctor or nurse how to use these medications. Specifically ask about this and similar medications: escitalopram (LEXAPRO) 10 mg tablet New Medications Dose Details prochlorperazine 10 mg Tab Commonly known as: COMPAZINE Take 1 tablet by mouth every 6 hours as needed for Nausea. 10 mg Quantity: 30 tablet Refills: 1 Continued medications, unchanged Dose Details acyclovir 400 [...] mg Cap Take by mouth. Generic drug: Thornton-3 Fatty Acids-Vitamin E Refills: 0 LEXAPRO 10 mg Tab Generic drug: escitalopram oxalate Refills: 0 * LORazepam 0.5 mg Tab Commonly known as: ATIVAN Take 1 tablet by mouth every 6 hours as needed for Anxiety. Patient takes one tablet in the morning, and two tablets at night 0.5 mg Quantity: 30 tablet Refills: 0 * LORazepam 0.5 mg Tab Commonly known as: ATIVAN Take 1 tablet by mouth every 6 hours as needed for Anxiety. 0.5 mg Quantity: 30 tablet Refills: 0 ondansetron 4 mg Tab Commonly known as: ZOFRAN ( HYDROCHLORIDE) Take 1 tablet by mouth every 8 hours as needed for Nausea. 4 mg Quantity: 20 tablet Refills: 0 senna 8.6 mg Tab Commonly known as: SENOKOT Take 1 tablet by mouth daily. 1 tablet Refills: 0 Vitamin D-3 2,000 unit Cap Take 1,000 Units by mouth. Generic drug: Cholecalciferol (Vitamin D3) 1000 Units Refills: 0 * Notice: This list has 2 medication(s) that are the same as other medications prescribed for you. Read the directions carefully, and ask your doctor or other care provider to review them with you. STOPPED Medications filgrastim 300 mcg/mL Soln Commonly known as: NEUPOGEN filgrastim 480 mcg/0.8 mL Syrg Commonly known as: NEUPOGEN fluconazole 200 mg Tab Commonly known as: DIFLUCAN levofloxacin 750 mg Tab Commonly known as: LEVAQUIN Updated Allergies/ADRs: Allergies Allergen Reactions ??? Tegaderm [Transparent Dressings] Other (See Comments) Unsure if actual allergy, please try [id number] Skin tears/rawness Instructions Given to Patient at Discharge: Patient Instructions Instructions on Discharge to Home Why you were hospitalized - Thrombocytopenia Call your doctor or seek medical attention if you develop the following: Who to contact if unwell, if your symptoms change, or you notice any of the following please contact your doctor BEFORE going to the Emergency Dept or taking any meds: -Regular Business Hours: your regular Heme/Onc's office -After hours: Call [facility] ([phone]) & ask for the On-Call Heme/Onc Fellow -fevers > 100.4, shaking chills, night sweats -newly productive cough, chest pain, shortness of breath -painful/bloody urination, urinary frequency/urgency, decreased urination -localized warmth/tenderness/oozing especially at an indwelling catheter site (if you have one) -bleeding (nose, sputum, vomit, urine, stool), black stool, or any bleeding that won't stop, increased bruising -lightheadedness, dizziness, abnormal headache, increasing fatigue Activity level - As tolerated Diet - As before Driving - You are not permitted to drive if you are feeling ill in any way or taking any sedating medications. Shower/Bath - As tolerated Wound Care - Please keep left neck wound clean and dry until fully healed. Changes in Your Medications: New Medications: Compazine Medication dose changes: N/A Stop these medications: Fluconazole Levaquin Follow-up Appointments Future Appointments Date Time Provider Department Center 11/04/2014 7:00 AM LABORATORY, TECH [facility] None 11/04/2014 8:00 AM Kimberly Mondragon MD [facility] 11/04/2014 9:30 AM [facility] None Your Discharge Medication List Your Medications Notice Some of the medications listed here do not show instructions, such as how often to take the medication. Ask your doctor or nurse how to use these medications. Specifically ask about this and similar medications: escitalopram (LEXAPRO) 10 mg tablet New Medications Dose Details prochlorperazine 10 mg Tab Commonly known as: COMPAZINE Take 1 tablet by mouth every 6 hours as needed for Nausea. 10 mg Quantity: 30 tablet Refills: 1 Continued medications, unchanged Dose Details acyclovir 400 [...] mg Cap Take by mouth. Generic drug: Thornton-3 Fatty Acids-Vitamin E Refills: 0 LEXAPRO 10 mg Tab Generic drug: escitalopram oxalate Refills: 0 * LORazepam 0.5 mg Tab Commonly known as: ATIVAN Take 1 tablet by mouth every 6 hours as needed for Anxiety. Patient takes one tablet in the morning, and two tablets at night 0.5 mg Quantity: 30 tablet Refills: 0 * LORazepam 0.5 mg Tab Commonly known as: ATIVAN Take 1 tablet by mouth every 6 hours as needed for Anxiety. 0.5 mg Quantity: 30 tablet Refills: 0 ondansetron 4 mg Tab Commonly known as: ZOFRAN ( HYDROCHLORIDE) Take 1 tablet by mouth every 8 hours as needed for Nausea. 4 mg Quantity: 20 tablet Refills: 0 senna 8.6 mg Tab Commonly known as: SENOKOT Take 1 tablet by mouth daily. 1 tablet Refills: 0 Vitamin D-3 2,000 unit Cap Take 1,000 Units by mouth. Generic drug: Cholecalciferol (Vitamin D3) 1000 Units Refills: 0 * Notice: This list has 2 medication(s) that are the same as other medications prescribed for you. Read the directions carefully, and ask your doctor or other care provider to review them with you. STOPPED Medications filgrastim 300 mcg/mL Soln Commonly known as: NEUPOGEN filgrastim 480 mcg/0.8 mL Syrg Commonly known as: NEUPOGEN fluconazole 200 mg Tab Commonly known as: DIFLUCAN levofloxacin 750 mg Tab Commonly known as: LEVAQUIN Your Inpatient Medical Team at [facility] Name(s) of your inpatient provider(s): For questions regarding issues relating to your hospitalization on the Hospital Medicine Service, please contact your inpatient physician through the [facility] Medical Surgical Tech [phone]. Issues after hours and on weekends will be handled by the Hospitalist staff on-call. Your Primary Care Provider SOPHY FUNES (General) [phone] General Instructions None Future Appointments and Orders Future Appointments Provider Department Dept Phone 11/04/2014 7:00 AM LABORATORY, TECH [facility] [phone] 11/04/2014 8:00 AM Kimberly Mondragon MD [facility] [phone] 11/04/2014 9:30 AM [facility] [phone] Future Orders Complete By Expires De-Access Implantable Port: Contact Vascular Access Page 1865 [[id number] Custom] As directed Process Instructions: Scheduling Instructions: Questions: Discharge References/Attachments: Discharge References/Attachments None Inpatient Provider Contact Information: Electronically Signed By: Bessie Mobley PGY1 documented in this encounter Discharge Instructions * Patient Instructions* Elie Grace MD - 10/25/2014 12:06 PM EDT Instructions on Discharge to Home Why you were hospitalized - Thrombocytopenia Call your doctor or seek medical attention if you develop the following: Who to contact if unwell, if your symptoms change, or you notice any of the following please contact your doctor BEFORE going to the Emergency Dept or taking any meds: -Regular Business Hours: your regular Heme/Onc's office -After hours: Call [facility] ([phone]) & ask for the On-Call Heme/Onc Fellow -fevers > 100.4, shaking chills, night sweats -newly productive cough, chest pain, shortness of breath -painful/bloody urination, urinary frequency/urgency, decreased urination -localized warmth/tenderness/oozing especially at an indwelling catheter site (if you have one) -bleeding (nose, sputum, vomit, urine, stool), black stool, or any bleeding that won't stop, increased bruising -lightheadedness, dizziness, abnormal headache, increasing fatigue Activity level - As tolerated Diet - As before Driving - You are not permitted to drive if you are feeling ill in any way or taking any sedating medications. Shower/Bath - As tolerated Wound Care - Please keep left neck wound clean and dry until fully healed. Changes in Your Medications: New Medications: Compazine Medication dose changes: N/A Stop these medications: Fluconazole Levaquin Follow-up Appointments Future Appointments Date Time Provider Department Center 11/04/2014 7:00 AM [facility] None 11/04/2014 8:00 Kimberly Martinez MD [facility] 11/04/2014 9:30 AM [facility] None Your Discharge Medication List Your Medications Notice Some of the medications listed here do not show instructions, such as how often to take the medication. Ask your doctor or nurse how to use these medications. Specifically ask about this and similar medications: escitalopram (LEXAPRO) 10 mg tablet New Medications Dose Details prochlorperazine 10 mg Tab Commonly known as: COMPAZINE Take 1 tablet by mouth every 6 hours as needed for Nausea. 10 mg Quantity: 30 tablet Refills: 1 Continued medications, unchanged Dose Details acyclovir 400 [...] mg Cap Take by mouth. Generic drug: Thornton-3 Fatty Acids-Vitamin E Refills: 0 LEXAPRO 10 mg Tab Generic drug: escitalopram oxalate Refills: 0 * LORazepam 0.5 mg Tab Commonly known as: ATIVAN Take 1 tablet by mouth every 6 hours as needed for Anxiety. Patient takes one tablet in the morning, and two tablets at night 0.5 mg Quantity: 30 tablet Refills: 0 * LORazepam 0.5 mg Tab Commonly known as: ATIVAN Take 1 tablet by mouth every 6 hours as needed for Anxiety. 0.5 mg Quantity: 30 tablet Refills: 0 ondansetron 4 mg Tab Commonly known as: ZOFRAN ( HYDROCHLORIDE) Take 1 tablet by mouth every 8 hours as needed for Nausea. 4 mg Quantity: 20 tablet Refills: 0 senna 8.6 mg Tab Commonly known as: SENOKOT Take 1 tablet by mouth daily. 1 tablet Refills: 0 Vitamin D-3 2,000 unit Cap Take 1,000 Units by mouth. Generic drug: Cholecalciferol (Vitamin D3) 1000 Units Refills: 0 * Notice: This list has 2 medication(s) that are the same as other medications prescribed for you. Read the directions carefully, and ask your doctor or other care provider to review them with you. STOPPED Medications filgrastim 300 mcg/mL Soln Commonly known as: NEUPOGEN filgrastim 480 mcg/0.8 mL Syrg Commonly known as: NEUPOGEN fluconazole 200 mg Tab Commonly known as: DIFLUCAN levofloxacin 750 mg Tab Commonly known as: LEVAQUIN Your Inpatient Medical Team at [facility] Name(s) of your inpatient provider(s): For questions regarding issues relating to your hospitalization on the Hospital Medicine Service, please contact your inpatient physician through the [facility] Medical Surgical Tech [phone]. Issues after hours and on weekends will be handled by the Hospitalist staff on-call. Your Primary Care Provider SOPHY FUNES (General) [phone] documented in this encounter Medications at Time of Discharge Medication Sig Dispensed Refills Start Date End Date prochlorperazine (COMPAZINE) 10 mg Tablet Take 1 tablet by mouth every 6 hours as needed for Nausea. 30 tablet 1 10/25/2014 05/07/2015 ondansetron (ZOFRAN, HYDROCHLORIDE,) 4 mg Tablet Take 1 tablet by mouth every 8 hours as needed for Nausea. 20 tablet 0 10/11/2014 11/04/2014 acyclovir (ZOVIRAX) 400 mg Tablet Take 1 [...] Take 1 tablet by mouth daily. 12/25/2015 Thornton-3 Fatty Acids-Vitamin E (FISH OIL) 1,000 mg CapsuleIndications:Lymp fawn Take by mouth. 01/29/2015 Calcium 500 mg TabletIndications:Lymph vivien Take by mouth. 01/29/2015 Cholecalciferol, Vitamin D3, (VITAMIN D-3) 2,000 unit CapsuleIndications:Lymp fawn Take 1,000 Units by mouth. 01/29/2015 escitalopram (LEXAPRO) 10 mg tablet 03/08/2005 01/03/2015 documented as of this encounter Progress Notes * Larisa Hoskins RN - 10/25/2014 3:16 PM EDT Office of Care Management Delivery Analyst RN Initial Note/DC Planning: no continuing care needs identified Reviewed record and discussed pt with inpt heme-onc team and at interdisciplinary discharge rounds. Did not interview pt. Reason for admission:64 y.o. female with PMHx of DLBCL Stage IIIa w/ discharge from [facility] on 10[place]11 after 1 cycle of R-DHAP presents to [facility] ED for plt transfusion w/ platelets of 60,000 on routine labs. (10/22/2014, shayna odom md) Actual plt count on admit: 6,000. Incorrect as written in admit H&P. Functional status:up with standby assist; pt currently using oxygen at 1 lpm, but on nursing doc flowsheet in record, only sat below 90 was 88 recorded on 10/23; pt was NOT using supplemental oxygen prior to admit Immediate support:; lives in [facility]; lists family and friends as contacts Insurance/prescription coverage: [place] [employer] Anticipated needs at DC:no VNA services/ assistive equipment; anticipate no need for supplemental oxygen by the time pt is medically ready for discharge Hematology follow-up: Future Appointments Date Time Provider Department Center 11/04/2014 7:00 AM LABORATORY, TECH [facility] None 11/04/2014 8:00 AM Kimberly Mondragon MD [facility] 11/04/2014 9:30 AM [facility] INFUSION THERAPY [facility] None P: DC to home when medically ready. Delivery Analyst RN is available to assist with any identified continuing care needs until discharge. Srinivasan Hoskins RN Case Practical Nurse of Care Management [phone] and ext [phone] * Jaye Swan RN - 10/25/2014 3:15 PM EDT Pt A&O x4, daughter at bedside throughout shift. Ambulating independently to bathroom. Voiding adequately. Bowel meds held this am per pt request. Pt weaned from O2 this am, sating >92% on RA all day. Denies SOB/HAUSER. Encouraged IS and cough and deep breathe. Pt's IJ dressing changed by this afternoon. Mediport flushed w/ heparin, and de-accessed per protocol. Pt given AVS by and maureen murphy understanding. Home Neupogen returned to pt w/ ice packs. D/C'd to home this afternoon w/ allbelongings in possession. Pt's daughter provided transportation. * Vy England RD - 10/25/2014 1:06 PM EDT Nutrition Initial Note: S: Per pt: Feeling better as of yesterday, hoping to go home this afternoon Appetite: Fair Chewing/Swallowing: no issues noted N/V: no issues today, N/V prior to today per patient O: Patient Active Problem List Diagnosis Code ??? Lymphoma 202.80 ??? Depression with anxiety 300.4 History reviewed. No pertinent past medical history. Diet: BMT Height: 161 cm Admit Weight: 64.8 kg (143 lbs) BMI: 25.1 Labs: (10/24) K 3.3, Cr 1.58, Mg 0.47, GFR 33 Medications: Colace, Mag-Ox, KCl, Senna, Zofran A: Patient seen for BMT diet order. Patient reports feeling better today and able to tolerate PO intake. Her daughter just went upstairs to get her some lunch from [employer]. Discussed BMT diet precautions while here as well as at home. Patient asking appropriate questions and had no further concerns at this time. P: Continue current diet and provide patient preferences. Monitor and encourage PO Intake. Monitor weights. BMT diet education provided. Nutrition to follow throughout hospital stay. * Sylvester Odom MD - 10/25/2014 7:27 AM EDT Inpatient Hematology/Oncology/SCT Progress Note Patient info: Name: Myriam De Souza : 1950 PCP: SOPHY FUNES (General) PCP phone number: [phone] Date of Admission: 10/22/2014 ( Hospital Day 3 days ) Service: Hem/Onc Team A pg [id number] (06/09) Responsible Attending:No att. providers found ID: Myriam De Souza is a 64 y.o. female with DLBCL Stage IIIa s/p 1 cycle of R- DHAP on 10/09-10/10, currently day 16, who presented to [facility] ED on 10/21 for thrombocytopenia requiring a transfusion and LOUISE prior to her scheduled catheter placement and stem cell harvest. 24 Hour Events/ Subjective: -Complains of a headache. -overall doing well -Nausea is much better controlled with the scheduled ativan and zofran. She ate 3 meals yesterday. ROS: She denies nausea, vomiting, diarrhea, SOB, chest pain, or abdominal pain. Vitals: Last value Range last 24 hrs Temperature Temp: 36.8 ??C (98.2 ??F) Temp: [36.8 ??C (98.2 ??F)-37.3 ??C (99.1 ??F)] Heart Rate Heart Rate: 62 Heart Rate: [62-87] Blood Pressure BP: 112/72 mmHg BP: (98-120)/(62-72) Respiratory Rate Resp: 18 Resp: [15-18] SpO2 SpO2: 94 % SpO2: [93 %-98 %] Intake/Output Summary (Last 24 hours) at 10/25/14 1619 Last data filed at 10/25/14 1300 Gross per 24 hour Intake 1753 ml Output 2210 ml Net -457 ml Patient Vitals for the past 168 hrs: Weight 10/25/14 0411 68.4 kg (150 lb 12.7 oz) 10/24/14 0500 65.1 kg (143 lb 8.3 oz) 10/23/14 0452 66.3 kg (146 lb 2.6 oz) 10/22/14 0246 64.8 kg (142 lb 13.7 oz) 10/21/14 190 64.411 kg (142 lb) Admit wt: 64.411 kg Physical Exam: Gen: Alert and oriented to person, place and time. HEENT: No palpable lymphadenopathy, EOMI, pupils are equal and reactive to light CV: RRR, no murmurs Pulm: Slight crackles are the bases bilaterally Abd: Soft and non tender Neuro: Cranial nerves II-XII grossly in tact Medications: Scheduled Meds: ??? ondansetron 4 mg Oral Q8H KRYS Or ??? ondansetron 4 mg Intravenous Q8H KRYS ??? LORazepam 0.5 mg Oral BID And ??? LORazepam 1 mg Oral Nightly ??? magnesium oxide 400 mg Oral BID ??? esomeprazole 40 mg Oral Daily ??? acyclovir 400 mg Oral BID ??? escitalopram oxalate 10 mg Oral Daily ??? fluconazole 200 mg Oral Daily ??? levofloxacin 750 mg Oral Daily ??? docusate sodium 100 mg Oral BID ??? senna 8.6 mg Oral Daily ??? sodium chloride 0.9 % 5 mL Intravenous BID ??? loratadine 10 mg Oral Daily Continuous Infusions: PRN Meds:.heparin, porcine, prochlorperazine OR prochlorperazine, fentaNYL (PF), midazolam (PF), oxyCODONE, sodium chloride 0.9 %, lidocaine, sodium chloride Labs: Recent Labs 10/25/14 0410 10/24/14 0405 10/23/14 1904 10/22/14 0343 WBC 19.8* 11.6* 7.2 < > 1.0* HGB 7.9* 8.2* 7.8* < > 9.1* HCT 22.2* 23.1* 22.0* < > 25.8* PLATELET 31* 21* 19* < > 35* NEUTROABS -- -- -- -- 0.17* < > = values in this interval not displayed. Recent Labs 10/25/14 0830 10/24/14 0405 10/23/14 0300 NA 144 144 141 K 3.8 3.3* 3.5 CL 100 98 102 CO2 35* 34* 28 BUN 13 17 27* CREATININE 1.50* 1.58* 2.06* Recent Labs 10/25/14 0830 10/24/14 0405 10/23/14 0300 10/21/14 2021 CALCIUM 8.8 9.1 8.4* < > 9.3 MAGNESIUM 0.73 0.47* 0.63* -- 0.65* PHOS -- -- -- -- 2.6 < > = values in this interval not displayed. Recent Labs 10/22/14 0343 AST 12 ALT 14 ALKPHOS 85 BILITOT 0.4 BILIDIR 0.1 No results for input(s): INR, PT, PTT in the last 72 hours. Imaging CXR 10/24/14 FINDINGS: The lungs are clear. The previously noted massive mediastinal lymphadenopathy has decreased. There are new small bibasilar pleural effusions. Cardiac silhouette is within normal limits. No pneumothorax. Right-sided Mediport with tip terminating in the SVC. No acute osseous abnormalities. IMPRESSION IMPRESSION: No pneumonia or other acute cardiopulmonary process. Decreased bulk of mediastinal lymphadenopathy. New small bilateral pleural effusions. ASSESSMENT/PLAN: Myriam De Souza is a 64 y.o. female with DLBCL Stage IIIa s/p 1 cycle of R-DHAP on 10/09-10/[address] [facility] on 10/21 for thrombocytopenia requiring a transfusion and LOUISE prior to her scheduled catheter placement and stem cell harvest. The stem cells were harvested 10/23. Her LOUISE is continuingto improve. Her nausea and vomiting has been well controlled for the past 24 hours and she has beenable to eat, drink, and take all her PO medications. 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 She received Cycle 1 R-DHAP from 10/09 to 10/10 and is currently day 16. Stem cells harvested 10/23 in anticipation of an autologous SCT. - Stems cells harvested 10/23, the numbers were adequate -CXR to evaluate for reduced breath sounds on one side #Nausea and Vomiting: Uncontrolled with PRN's -Will schedule her zofran and her ativan q8hrs -Compazine PRN, will prescribe this for her. #LOUISE: Likely secondary to dehydration. Improved from initial 2.91 down to 1.5 today with fluid rehydration. -Follow creatinine and evaluate fluid status, will check at her f/u appt. -LFTs -Encourage PO intake #Hypokalemia and Hypomagnesia: Likely secondary to her N/V -Will continue to replete as needed #Pancytopenia secondary to Chemotherapy -Transfuse platelets less than 10 if active bleeding, transfuse platelets less than 5 if no active bleeding -Continue home Neupogen 780mcg QD # Neutropenic Prophylaxis: -Acyclovir 400mg BID - Fluconazole 200mg QD - Levofloxacin 750mg QD -Neutropenic Precautions #Anxiety -Lexapro 10mg QD -Ativan 0.5mg Q6H PRN #Other - Diet: NPO after midnight for procedure 10/23 - DVT PPx: SCD's, holding enoxaparin s/p catheter removal - GI PPx: Nexium - Code status: FULL BESSIE MOBLEY MD PGY1 Internal Medicine 10/25/2014 Pager #[phone] 06/09 Heme/Onc/BMT Team A Pager #[phone] HEMATOLOGY/BMT STAFF DAY OF DISCHARGE NOTE I interviewed, examined and reviewed data on Myriam De Souza. I agree with Dr. Mobley's findings, assessment and plans. Our assessment is that she is stable and ready for discharge today. Myriam's renal function has imprioved every day and is now near her baseline. Her hypoxia has resolved and her nausea is under excellent control so that she has resumed normal eating. I reviewed her current status and plans for her discharge and follow-up with Myriam Campuzano Marshallernestina, her nurse, the resident team and our communications planner, Victoria Mora RN. Myriam is aware that should questions or concerns arise, we are available 24 hours per day. She will f/u w/ Dr. Mondragon. At the end of our visit Myriam confirmed that all of her questions had been addressed. > 30 minutes was spent in patient care, counseling and in arranging this discharge. Sylvester Odom MD Section of Hematology/Oncology Page: #[phone] Office Phone: [phone] * Sylvester Odom MD - 10/24/2014 8:10 AM EDT Inpatient Hematology/Oncology/SCT Progress Note Patient info: Name: Myriam De Souza : 1950 PCP: SOPHY FUNES (General) PCP phone number: [phone] Date of Admission: 10/22/2014 ( Hospital Day 2 days ) Service: Hem/Onc Team A pg [phone] (06/09) Responsible Attending:Sylvester Odom MD ID: Myriam De Souza is a 64 y.o. female with DLBCL Stage IIIa s/p 1 cycle of R- DHAP on 10/09-10/10, currently day 15, who presented to [facility] on 10/21 for thrombocytopenia requiring a transfusion and LOUISE prior to her scheduled catheter placement and stem cell harvest. 24 Hour Events/ Subjective: -Nausea still not under control. She was vomiting last night. -She has not been able to eat very much. -Bowel movements yesterday. -Had an antiemetic yesterday when the cells were being harvested that helped and she would like to have that. -She complains of a headache ROS: She denies nausea, vomiting, diarrhea, SOB, chest pain, or abdominal pain. Vitals: Last value Range last 24 hrs Temperature Temp: 36.9 ??C (98.4 ??F) Temp: [36.3 ??C (97.4 ??F)-37.1 ??C (98.8 ??F)] Heart Rate Heart Rate: 72 Heart Rate: [59-74] Blood Pressure BP: 114/64 mmHg BP: (89-120)/(46-71) Respiratory Rate Resp: 16 Resp: [8-18] SpO2 SpO2: 98 % SpO2: [88 %-100 %] Intake/Output Summary (Last 24 hours) at 10/24/14 0810 Last data filed at 10/24/14 0644 Gross per 24 hour Intake 3597 ml Output 750 ml Net 2847 ml Patient Vitals for the past 168 hrs: Weight 10/24/14 0500 65.1 kg (143 lb 8.3 oz) 10/23/14 0452 66.3 kg (146 lb 2.6 oz) 10/22/14 0246 64.8 kg (142 lb 13.7 oz) 10/21/14 1901 64.411 kg (142 lb) Admit wt: 64.411 kg Physical Exam: Gen: Alert and oriented to person, place and time. HEENT: No palpable lymphadenopathy, EOMI, pupils are equal and reactive to light CV: RRR, no murmurs Pulm: Clear to auscultation bilaterally, reduced breath sounds unilaterally Abd: Soft and non tender Neuro: Cranial nerves II-XII grossly in tact Medications: Scheduled Meds: ??? magnesium sulfate 2 g Intravenous Once ??? potassium chloride 40 mEq Oral Once ??? magnesium oxide 400 mg Oral BID ??? esomeprazole 40 mg Oral Daily ??? acyclovir 400 mg Oral BID ??? escitalopram oxalate 10 mg Oral Daily ??? fluconazole 200 mg Oral Daily ??? levofloxacin 750 mg Oral Daily ??? docusate sodium 100 mg Oral BID ??? senna 8.6 mg Oral Daily ??? sodium chloride 0.9 % 5 mL Intravenous BID ??? filgrastim 780 mcg Subcutaneous Daily ??? loratadine 10 mg Oral Daily ??? LORazepam 0.5 mg Oral QAM And ??? LORazepam 1 mg Oral QPM Continuous Infusions: ??? sodium chloride 0.9% 1,000 mL (10/23/14 1130) PRN Meds:.fentaNYL (PF), midazolam (PF), oxyCODONE, prochlorperazine OR prochlorperazine, sodium chloride 0.9 %, lidocaine, ondansetron OR ondansetron, sodium chloride Labs: Recent Labs 10/24/14 04010/23/14 1904 10/23/14 0300 10/22/14 0343 WBC 11.6* 7.2 3.8* 3.8* 1.0* HGB 8.2* 7.8* 8.5* 9.1* HCT 23.1* 22.0* 24.1* 25.8* PLATELET 21* 19* 28* 35* NEUTROABS -- -- -- 0.17* Recent Labs 10/24/14 0405 10/23/14 0300 10/22/14 1055 NA 144 141 143 K 3.3* 3.5 3.8 CL 98 102 99 CO2 34* 28 31 BUN 17 27* 37* CREATININE 1.58* 2.06* 2.69* Recent Labs 10/24/14 0405 10/23/14 0300 10/22/14 1055 10/21/14 2021 CALCIUM 9.1 8.4* 9.1 9.3 MAGNESIUM 0.47* 0.63* -- 0.65* PHOS -- -- -- 2.6 Recent Labs 10/22/14 0343 AST 12 ALT 14 ALKPHOS 85 BILITOT 0.4 BILIDIR 0.1 Recent Labs 10/22/14 0343 INR 1.0 PT 13.6 PTT 27 ASSESSMENT/PLAN: Myriam De Souza is a 64 y.o. female with DLBCL Stage IIIa s/p 1 cycle of R-DHAP on 10/09-10/[address] [facility] on 10/21 for thrombocytopenia requiring a transfusion and LOUISE prior to her scheduled catheter placement and stem cell harvest. The stem cells were harvested 10/23. Her LOUISE is resolving,but she is having uncontrolled nausea and vomiting that is preventing her PO intake at this time. 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 She received Cycle 1 R-DHAP from 10/09 to 10/10 and is currently day 15. Stem cells harvested 10/23 in anticipation of an autologous SCT. - Stems cells harvested 10/23, the numbers were adequate, will remove line today - Trend cell counts and determine when she should have the harvest. -CXR to evaluate for reduced breath sounds on one side #Nausea and Vomiting: Uncontrolled with PRN's -Will schedule her zofran and her ativan q8hrs -Compazine PRN #LOUISE: Likely secondary to dehydration. Improved from initial 2.91 down to 2.06 with fluid rehydration. -IVF fluid 125 cc/hr and will continue to evaluate need for continued fluid rehydration. -Follow creatinine and evaluate fluid status -LFTs -Encourage PO intake #Hypokalemia and Hypomagnesia: Likely secondary to her N/V -Will continue to replete as needed #Pancytopenia secondary to Chemotherapy -Transfuse platelets less than 10 if active bleeding, transfuse platelets less than 5 if no active bleeding -Continue home Neupogen 780mcg QD # Neutropenic Prophylaxis: -Acyclovir 400mg BID - Fluconazole 200mg QD - Levofloxacin 750mg QD -Neutropenic Precautions #Anxiety -Lexapro 10mg QD -Ativan 0.5mg Q6H PRN #Other - Diet: NPO after midnight for procedure 10/23 - DVT PPx: SCD's, holding enoxaparin s/p catheter removal - GI PPx: Nexium - Code status: FULL BESSIE MOBLEY MD PGY1 Internal Medicine 10/24/2014 Pager #[phone] 06/09 Heme/Onc/BMT Team A Pager #[phone] HEMATOLOGY/BMT STAFF PROGRESS NOTE I interviewed, examined and reviewed data on Myriam De Souza today. I agree with Dr. Mobley's findings, assessment and plans as listed in her note. She had a very successful stem cell collection yesterday but today is having mild hypoxia on RA at rest, fatigue and nausea with vomiting. She has been afebrile. We are evaluating these issues to make sure there is no occult infection or other more serious issue. Her d/c will depend on this evaluation and whether or not her nausea and hypoxia improve. The team and I reviewed Myriam's situation and our plans for today with her during this visit. This patient meets criteria for inpatient level of care based on the above medical complexity. Sylvester Odom MD Section of Hematology/Oncology Page: #[phone] Office Phone: [phone] * Zeenat Malhotraann, PAYER SPECIALIST - 10/24/2014 6:33 AM EDT Interventional Radiology Inpatient- Progress Note Post procedure day 1 s/p placement of temporary pheresis catheter Responsible Attending: Sylvester Odom MD Time of patient encounter: 0600 24 Hour Events: Stem cells collected last night; catheter worked well. N/V x 1 ameliorated with antiemetic. No pain at LIJ catheter site. No F/C. Physical Exam: Last Set of Vitals and range of vitals over past 24 hours: Last value Range last 24 hrs Temperature Temp: 36.9 ??C (98.4 ??F) Temp: [36.3 ??C (97.4 ??F)-37.2 ??C (99 ??F)] Heart Rate Heart Rate: 72 Heart Rate: [59-74] Blood Pressure BP: 114/64 mmHg BP: (89-120)/(46-71) Respiratory Rate Resp: 16 Resp: [8-18] SpO2 SpO2: 98 % SpO2: [88 %-100 %] Gen: NAD; awakened for exam Skin: Left neck catheter site C/D/I. Physical Exam Laboratory (Last 24 Hours): Results for MYRIAM DE SOUZA ( ) as of 10/24/2014 06:40 10/24/2014 04:05 WBC 11.6 (H) RBC 2.58 (L) Hemoglobin 8.2 (L) Hematocrit 23.1 (L) MCV 89.5 MCH 31.8 MCHC 35.5 RDWSD 39.2 RDWCV 12.0 Platelets 21 (L) Assessment: 64 y/o with DLBCL; a temporary pheresis catheter was placed yesterday for stem cell collection. No issues with catheter during harvest. Plan: If Dr. Odom's team is not comfortable removing line, we would be happy to do so. JEWELS MALHOTRA APRN 10/24/2014 * Alana Rouse MD - 10/23/2014 7:00 PM EDT Transfusion Medicine Service Transfusion Medicine Attending Physician: Alana Rouse MD, PhD Transfusion Medicine Resident/Fellow: Ana Nielsen MD Procedure Type: Mononuclear Cell Collection Number: Date: 10/23/2014 Indication / Diagnosis: DLBCL Stage IIIa s/p 1 cycle of R-DHAP on 10/09-10/10, who presented to [facility] on 10/21 for thrombocytopenia and requiring a transfusion. She is here for a stem cell harvest. Requested number of cells to be collected: 3x 10e6 CD34+ cells/kilogram recipient weight Relevant History / Background: Ms. Myriam De Souza is a pleasant 64 year old female with DLBCL Stage IIIa s/p 1 cycle of R-DHAP on 10/09-10/10, who presented to [facility] on 10/21 for thrombocytopenia requiring a transfusion and LOUISE priorto her scheduled catheter placement. She is here for a stem cell harvest. Physical Exam: GENERAL: Pleasant, conversant, NAD CARDIAC: RRR, no murmurs LUNGS: CTAB ABDOMEN: Soft, NT/ND, large 15 cm in diameter bruise on the mid abdomen. EXTREMITIES: No peripheral edema SKIN: Warm and dry Current laboratory data: Recent Labs 10/24/14 0405 10/23/14 1904 10/23/14 0300 10/22/14 0343 WBC 11.6* 7.2 3.8* 3.8* 1.0* HGB 8.2* 7.8* 8.5* 9.1* HCT 23.1* 22.0* 24.1* 25.8* PLATELET 21* 19* 28* 35* NEUTROABS -- -- -- 0.17* Recent Labs 10/23/14 0300 [id number] Information about today's procedure A time out was called and the patient's identity was verified. Based on the physical exam and laboratory data the patient was qualified for mononuclear cell collection today and the procedure was initiated. The procedure was performed by Ria Keenan RN under the supervision of Alana Rouse MD, PhD. The procedure began at 1430 and concluded at 1900. Volumes/Fluid Balance: See scanned procedure flowsheet Vital signs: PRE: BP114/56, P74, R20, T98.6 POST: BP118/63, P59, R18, T98.3 Complications noted (if any): The procedure was tolerated well and was completed without complications. Additional comments about today's procedure: She developed nausea and vomiting mid-procedure. She was treated with Ondansetron which was a standing order Q8H. Assessment/Plan: Ms. Myriam De Souza is a pleasant 64 year old female with DLBCL Stage IIIa s/p 1 cycle of R-DHAP on 10/09-10/10, who presented to [facility] on 10/21 for thrombocytopenia requiring a transfusion and LOUISE priorto her scheduled catheter placement. Stem cell harvest procedure was performed with great final yield of CD34 of 8.77 x 10e6 CD34+ cells/kilogram recipient weight. The patient was transferred to the wards for further management. ANA NIELSEN MD 10/24/2014 ATTENDING MD ATTESTATION: The apheresis procedure was performed under my supervision. I was present during critical portions of the procedure and available throughout. I personally interviewed and examined the patient and reviewed all clinical and laboratory data. I reviewed the note written by Dr. Nielsen and agree with the findings, assessment and plan. The patient's CD34 measured today was 62/mcL, which prompted us to initiate collection today. The yield was very good. The patient tolerated the procedure with no complications and was discharged to the floor in good condition. No additional procedures are scheduled. ALANA ROUSE MD 10/24/2014 * Jewels Malhotra APRN - 10/23/2014 11:42 AM EDT Images from the original note were not included. Pre-Sedation Assessment: Planned procedure: TEMPORARY CVC Assessment: GEN: NAD CV: RRR No R/G/M PULM: CTA bilaterally ASA 3 MALLAMPATI 1 H&P reviewed: YES Current medications reviewed: YES Allergies reviewed:YES Sedation Plan: MODERATE SEDATION The sedation plan, its benefits and risks, and alternatives were discussed with the PATIENT. The planned procedure, its benefits and risks, and alternatives were discussed with the PATIENT. The patient consented to the procedure. * Sylvester Odom MD - 10/23/2014 6:57 AM EDT Inpatient Hematology/Oncology/SCT Progress Note Patient info: Name: Myriam De Souza : 1950 PCP: SOPHY FUNES (General) PCP phone number: [phone] Date of Admission: 10/22/2014 ( Hospital Day 1 day ) Service: Hem/Onc Team A pg [id number] (06/09) Responsible Attending:Sylvester Odom MD ID: Myriam De Souza is a 64 y.o. female with DLBCL Stage IIIa s/p 1 cycle of R- DHAP on 10/09-10/10, currently day 14, who presented to [facility] on 10/21 for thrombocytopenia requiring a transfusion and LOUISE prior to her scheduled catheter placement and stem cell harvest. 24 Hour Events/ Subjective: -Overall doing well. -She was having some nausea this morning. She did not have Ativan with her morning Zofran. -She is supposed to have her catheter placed this morning and was kept NPO overnight. ROS: She denies nausea, vomiting, diarrhea, SOB, chest pain, or abdominal pain. Vitals: Last value Range last 24 hrs Temperature Temp: 37.2 ??C (99 ??F) Temp: [36.9 ??C (98.4 ??F)-37.5 ??C (99.5 ??F)] Heart Rate Heart Rate: 78 Heart Rate: [77-81] Blood Pressure BP: 98/62 mmHg BP: (98-122)/(60-68) Respiratory Rate Resp: 16 Resp: [16-17] SpO2 SpO2: 94 % SpO2: [93 %-97 %] Intake/Output Summary (Last 24 hours) at 10/23/14 0659 Last data filed at 10/23/14 0625 Gross per 24 hour Intake 3968.9 ml Output 2025 ml Net 1943.9 ml Patient Vitals for the past 168 hrs: Weight 10/23/14 0452 66.3 kg (146 lb 2.6 oz) 10/22/14 0246 64.8 kg (142 lb 13.7 oz) 10/21/14 1901 64.411 kg (142 lb) Admit wt: 64.411 kg Physical Exam: Gen: Alert and oriented to person, place and time. HEENT: No palpable lymphadenopathy, EOMI, pupils are equal and reactive to light CV: RRR, no murmurs Pulm: Clear to auscultation bilaterally Abd: Soft and non tender Neuro: Cranial nerves II-XII grossly in tact Medications: Scheduled Meds: ??? acyclovir 400 mg Oral BID ??? escitalopram oxalate 10 mg Oral Daily ??? fluconazole 200 mg Oral Daily ??? levofloxacin 750 mg Oral Daily ??? docusate sodium 100 mg Oral BID ??? senna 8.6 mg Oral Daily ??? sodium chloride 0.9 % 5 mL Intravenous BID ??? filgrastim 780 mcg Subcutaneous Daily ??? loratadine 10 mg Oral Daily ??? LORazepam 0.5 mg Oral QAM And ??? LORazepam 1 mg Oral QPM Continuous Infusions: ??? sodium chloride 0.9% 150 mL/hr (10/23/14 0251) PRN Meds:.sodium chloride 0.9 %, lidocaine, ondansetron OR ondansetron, sodium chloride Labs: Recent Labs 10/23/14 0300 10/22/14 03410/21/142020 WBC 3.8* 3.8* 1.0* 0.7* HGB 8.5* 9.1* 10.0* HCT 24.1* 25.8* 27.9* PLATELET 28* 35* 5* NEUTROABS -- 0.17* -- Recent Labs 10/23/14 0300 10/22/14 1055 10/21/142020 NA 141 143 139 K 3.5 3.8 3.9 CL 102 99 94* CO2 28 31 30 BUN 27* 37* 45* CREATININE 2.06* 2.69* 2.91* Recent Labs 10/23/14 0300 10/22/14 10510/21/142020 CALCIUM 8.4* 9.1 9.3 MAGNESIUM 0.63* -- 0.65* PHOS -- -- 2.6 Recent Labs 10/22/14 034 AST 12 ALT 14 ALKPHOS 85 BILITOT 0.4 BILIDIR 0.1 Recent Labs 10/22/14342 INR 1.0 PT 13.6 PTT 27 ASSESSMENT/PLAN: Myriam De Souza is a 64 y.o. female with DLBCL Stage IIIa s/p 1 cycle of R-DHAP on 10/09-10/[address] [facility] on 10/21 for thrombocytopenia requiring a transfusion and LOUISE prior to her scheduled catheter placement and stem cell harvest. She will proceed with the catheter placement today (10/23)and will have her stem cells harvested once her counts are higher. 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 She received Cycle 1 R-DHAP from 10/09 to 10/10 and is currently day 14. Will have stem cells harvested later this week in anticipation of an autologous SCT. -Will have catheter placed today (10/23) -NPO at midnight - Trend cell counts and determine when she should have the harvest. #LOUISE: Likely secondary to dehydration. Improved from initial 2.91 down to 2.06 with fluid rehydration. -IVF fluid decreased 125 cc/hr and will continue to evaluate need for continued fluid rehydration. -Follow creatinine and evaluate fluid status -LFTs #Pancytopenia secondary to Chemotherapy -Transfuse platelets less than 10 if active bleeding, transfuse platelets less than 5 if no active bleeding -Continue home Neupogen 780mcg QD # Neutropenic Prophylaxis: -Acyclovir 400mg BID - Fluconazole 200mg QD - Levofloxacin 750mg QD -Neutropenic Precautions #Anxiety -Lexapro 10mg QD -Ativan 0.5mg Q6H PRN #Other - Diet: NPO after midnight for procedure 10/23 - DVT PPx: SCD's, holding enoxaparin for procedure tomorrow on 10/23 - GI PPx: Nexium - Code status: FULL BESSIE MOBLEY MD PGY1 Internal Medicine 10/23/2014 Pager #[phone] 06/09 Heme/Onc/BMT Team A Pager #[phone] HEMATOLOGY/BMT STAFF PROGRESS NOTE I interviewed, examined and reviewed data on Myriam De Souza today. I agree with Dr. Mobley's findings, assessment and plans as listed in her note. Myriam's creatinine is improving with hydration alone making it likely that she was pre- renal. Mild ATN is also possible. Her absolute CD34 count was ~60 today lorena she is undergoing PBSC harvest this afternoon. If she continues to do well she could bed/c as early as tomorrow. I reviewed Myriam's situation and our plans for today with her during thisvisit. This patient meets criteria for inpatient level of care based on the above medical complexity. Sylvester Odom MD Section of Hematology/Oncology Page: #[phone] Office Phone: [phone] * Yuliet Boyle RN - 10/22/2014 11:34 AM EDT [facility] DATAB[facility] Name: MYRIAM DE SOUZA Date of : 1950 AGE 64 y.o. Address: [address] [place] [id number] (home) Mobile: No relevant phone numbers on file. Referring Provider: No ref. provider found REASON FOR VISIT: 2 lumen non tunneled pheresis catheter Allergies Allergen Reactions ??? Tegaderm [Transparent Dressings] Other (See Comments) Unsure if actual allergy, please try [id number] Skin tears/rawness Pertinent PMH: Patient Active Problem List Diagnosis Code ??? Lymphoma 202.80 ??? Depression with anxiety 300.4 Pertinent PSH: Past Surgical History Procedure Laterality Date ??? Pro bone marrow aspiration w/bx through same incision/site Right 03/29/2014 ([facility]) BONE MARROW ASP PERFORMED W/BX THRU BX INCISION performed by Kimberly Mondragon MD at [facility] ??? Pro bone marrow bx, needle/trocar Right 03/29/2014 ([facility]) BONE MARROW,BIOPSY performed by Kimberly Mondragon MD at [facility] ??? Pro bone marrow aspiration w/bx through same incision/site Left 09/02/2014 ([facility]) BONE MARROW ASP PERFORMED W/BX THRU BX INCISION performed by Kimberly Mondragon MD at [facility] ??? Pro bone marrow bx, needle/trocar Left 09/02/2014 ([facility]) BONE MARROW,BIOPSY performed by Kimberly Mondragon MD at [facility] ??? Pro endobronchial u/s add-on N/A 09/26/2014 ENDOBRONCHIAL ULTRASOUND (EBUS) performed by Jamey Martin MD at [facility] Date/Procedure Med's given/comments 04/05/14 Mediport placement Ancef 1 gm IV; Versed 2.5 mg IV; Fentanyl 150 mcg IV. 10/23/14 Non-tunneled Temporary CVC Line. Fentanyl 150 mcg IV,Versed 2mg IV, Laboratory Results: Lab Results Component Value Date INR 1.0 10/22/2014 No components found for: PT/PTT Lab Results Component Value Date CREATININE 2.91* 10/21/2014 Lab Results Component Value Date K 3.9 10/21/2014 Lab Results Component Value Date PLATELET 35* 10/22/2014 Medications: Prior to Admission medications Medication Sig Start Date End Date Taking? Authorizing Provider ondansetron (ZOFRAN, HYDROCHLORIDE,) 4 mg Tablet Take 1 tablet by mouth every 8 hours as needed for Nausea. 10/11/14 Yes Elsi Mena MD levofloxacin (LEVAQUIN) 750 mg Tablet Take 1 tablet by mouth daily for 14 days. 10/11/14 10/25/14 Elsi Brooke MD fluconazole (DIFLUCAN) 200 mg Tablet Take 1 tablet by mouth daily for 14 days. 10/11/14 10/25/14 Yes Elsi Mena MD acyclovir (ZOVIRAX) 400 mg Tablet Take 1 tablet by mouth 2 times daily. 10/11/14 Yes Elsi Mena MD LORazepam (ATIVAN) 0.5 mg Tablet Take 1 tablet by mouth every 6 hours as needed for Anxiety. 10/11/14 Yes Elsi Mena MD filgrastim (NEUPOGEN) 300 mcg/mL Solution Inject 1 mL subcutaneously daily for 10 days. Total dose of 780 mcg daily 10/13/14 10/23/14 Yes Kimberly Mondragon MD filgrastim (NEUPOGEN) 480 mcg/0.8 mL Syringe Inject 0.8 mLs subcutaneously daily for 10 days. Totaldose of 780 mcg. 10/13/14 10/23/14 Yes Kimberly Mondragon MD LORazepam (ATIVAN) 0.5 mg Tablet Take 1 tablet by mouth every 6 hours as needed for Anxiety. Patient takes one tablet in the morning, and two tablets at night 09/30/14 Yes Kimberly Mondragon MD docusate sodium (COLACE) 100 mg Capsule Take 100 mg by mouth 2 times daily. Yes PROVIDER, HISTORICAL senna (SENOKOT) 8.6 mg Tablet Take 1 tablet by mouth daily. Yes PROVIDER, HISTORICAL Thornton-3 Fatty Acids-Vitamin E (FISH OIL) 1,000 mg Capsule Take by mouth. Yes PROVIDER, HISTORICAL Calcium 500 mg Tablet Take by mouth. Yes PROVIDER, HISTORICAL Cholecalciferol, Vitamin D3, (VITAMIN D-3) 2,000 unit Capsule Take 1,000 Units by mouth. Yes PROVIDER, HISTORICAL escitalopram (LEXAPRO) 10 mg tablet 03/08/05 Yes ++++ FOR OUTPATIENT SCAN'S: I have informed this patient that they require a test car driver to be present and in the building to drive them home after this procedure. In the absence of a test car driver, IR will not be able to perform this procedure and will need to reschedule. Pt verbalized understanding of these i nstructions during the pre-procedure education via phone. (initials) * Sylvester Odom MD - 10/22/2014 7:00 AM EDT Inpatient Hematology/Oncology/SCT Progress Note Patient info: Name: Myriam De Souza : 1950 PCP: SOPHY FUNES (General) PCP phone number: [phone] Date of Admission: 10/22/2014 ( Hospital Day 0 days ) Service: Hem/Onc Team A pg [phone] (06/09) Responsible Attending:Sylvester Odom MD ID: Myriam De Souza is a 64 y.o. female with DLBCL Stage IIIa s/p 1 cycle of R- DHAP on 10/09-10/10, currently day 13, who presented to [facility] on 10/21 for thrombocytopenia requiring a transfusion and LOUISE prior to her scheduled catheter placement and stem cell harvest. 24 Hour Events/ Subjective: -Overall doing well. -She was supposed to have her marrow collected. She recalls she has not been drinking enough lately. -She received her platelets. ROS: She denies nausea, vomiting, diarrhea, SOB, chest pain, or abdominal pain. Vitals: Last value Range last 24 hrs Temperature Temp: 37 ??C (98.6 ??F) Temp: [36.8 ??C (98.2 ??F)-37.3 ??C (99.1 ??F)] Heart Rate Heart Rate: 77 Heart Rate: [74-96] Blood Pressure BP: 100/60 mmHg BP: (96-114)/(52-95) Respiratory Rate Resp: 16 Resp: [11-20] SpO2 SpO2: 96 % SpO2: [94 %-99 %] Intake/Output Summary (Last 24 hours) at 10/22/14 1026 Last data filed at 10/22/14 0926 Gross per 24 hour Intake 557.9 ml Output 600 ml Net -42.1 ml Patient Vitals for the past 168 hrs: Weight 10/22/14 0246 64.8 kg (142 lb 13.7 oz) 10/21/14 190 64.411 kg (142 lb) Admit wt: 64.411 kg Physical Exam: Gen: Alert and oriented to person, place and time. Pleasant and calm this morning. HEENT: No palpable lymphadenopathy, EOMI, pupils are equal and reactive to light CV: RRR, no murmurs Pulm: Clear to auscultation bilaterally Abd: Soft and non tender Neuro: Cranial nerves II-XII grossly in tact. Medications: Scheduled Meds: ??? acyclovir 400 mg Oral BID ??? escitalopram oxalate 10 mg Oral Daily ??? fluconazole 200 mg Oral Daily ??? levofloxacin 750 mg Oral Daily ??? docusate sodium 100 mg Oral BID ??? senna 8.6 mg Oral Daily ??? sodium chloride 0.9 % 5 mL Intravenous BID ??? filgrastim 780 mcg Subcutaneous Daily Continuous Infusions: ??? sodium chloride 0.9% 75 mL/hr (10/22/14253) PRN Meds:.LORazepam, sodium chloride 0.9 %, lidocaine, ondansetron OR ondansetron Labs: Recent Labs 10/22/143 10/21/14202010/16/14 1114 WBC 1.0* 0.7* 10.24* HGB 9.1* 10.0* 11.9* HCT 25.8* 27.9* 32.7* PLATELET 35* 5* 69* NEUTROABS 0.17* -- -- Recent Labs 10/21/142020 NA 139 K 3.9 CL 94* CO2 30 BUN 45* CREATININE 2.91* Recent Labs 10/21/142020 CALCIUM 9.3 MAGNESIUM 0.65* PHOS 2.6 Recent Labs 10/22/14 034 AST 12 ALT 14 ALKPHOS 85 BILITOT 0.4 BILIDIR 0.1 Recent Labs 10/22/14342 INR 1.0 PT 13.6 PTT 27 ASSESSMENT/PLAN: Myriam De Souza is a 64 y.o. female with DLBCL Stage IIIa s/p 1 cycle of R-DHAP on 10/09-10/[address] [facility] on 10/21 for thrombocytopenia requiring a transfusion and LOUISE prior to her scheduled catheter placement and stem cell harvest. She will proceed with the catheter placement tomorrow morning (10/23) and will have her stem cells harvested once her counts are higher. 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 She received Cycle 1 R-DHAP from 10/09 to 10/10 and is currently day 13. Will have stem cells harvested later this week in anticipation of an autologous SCT. -Will have catheter placed tomorrow morning (10/23) -NPO at midnight - Trend cell counts and determine when she should have the harvest. #LOUISE: Likely secondary to dehydration -IVF 150cc/h until 10/23, evaluate need for continued fluid rehydration -Follow creatinine and evaluate fluid status daily -LFTs #Pancytopenia secondary to Chemotherapy -Transfuse platelets less than 10 if active bleeding, transfuse platelets less than 5 if no active bleeding -Continue home Neupogen 780mcg QD # Neutropenic Prophylaxis: -Acyclovir 400mg BID - Fluconazole 200mg QD - Levofloxacin 750mg QD -Neutropenic Precautions #Anxiety -Lexapro 10mg QD -Ativan 0.5mg Q6H PRN #Other - Diet: NPO after midnight for procedure 10/23 - DVT PPx: SCD's, holding enoxaparin for procedure tomorrow on 10/23 - GI PPx: Not indicated - Code status: FULL BESSIE MOBLEY MD PGY1 Internal Medicine 10/22/2014 Pager #[phone] 06/09 Heme/Onc/BMT Team A Pager #[phone] HEMATOLOGY/BMT STAFF PROGRESS NOTE I interviewed, examined and reviewed data on Myriam De Souza today. I agree with Dr. Mobley's findings, assessment and plans as listed in her note. Please see my addendum to Myriam's admission note for more details. I reviewed Myriam's situation and our plans for today with her during this visit. This patient meets criteria for inpatient level of care based on the above medical complexity. Sylvester Odom MD Section of Hematology/Oncology Page: #[phone] Office Phone: [phone] documented in this encounter H&P Notes * Sylvester Odom MD - 10/21/2014 11:17 PM EDT Hematology/Oncology - Admission Note : 1950 Service: Hematology/Oncology Attending: Avtar Garcia MD ID: Myriam De Souza is a 64 y.o. female with PMHx of DLBCL Stage IIIa w/ discharge from [facility] on 10/11 after 1 cycle of R-DHAP presents to [facility] for plt transfusion w/ platelets of 60,000 on routine labs. HPI History is obtained from [facility] and Patient. Myriam De Souza is a 64 y.o. female with PMHx of DLBCL Stage IIIa w/ discharge from [facility] on 10/11 after 1 cycle of R-DHAP presents to [facility] for plt transfusion w/ platelets of 60,000 on routine labs. She reports since her discharge she has continued to feel tired and not back to her baseline, she t akes frequent naps throughout the day. Her peak energy is 4pm-10pm. She has had a decrease in energy and endorses feeling shaky on her feet. Denies any lightheadedness or dizziness. She believes her head is clearer since discharge and is able to focus more. She has had a decrease in her PO intake of both food and liquids. She drinks 4 small glasses of water a day, some oumar-markus and snapple. She has had some nausea but no vomiting. No change in urination, w/ the exception of increase with night time urinating. No dysuria or hematuria. She has had some muscle pain bilaterally in her upper extremities that resolves with claritin. She had 1 episode of BRBPR which she believes was hemorrhoids. Her last colonoscopy was at [address] and was normal per her. Denies any easy bruising, epistaxis, bleeding with teeth brushing, hematuria, or hematomas. She feels if she had not had the lab abnormality she would not have come to the ED. No sick contacts, recent travel or consumption of unwashed fruits/veggies or unpasteurized dairy. Review of Systems Per HPI. Denies any Lightheadedness, ARVIZU, Vomiting, CP, SOB, dysphagia, odynophagia, cough, lymphadenopathy, visual changes, abdominal pain, diarrhea, constipation, leg swelling, orthopnea, PND, fevers, chills or night sweats. Past Medical and Surgical History DLBCL s/p 6 cycles of R-CHOP and 1 cycle of R-DHAP Anxiety Past Surgical History Procedure Laterality Date ??? Pro bone marrow aspiration w/bx through same incision/site Right 03/29/2014 ([facility]) BONE MARROW ASP PERFORMED W/BX THRU BX INCISION performed by Kimberly Mondragon MD at [facility] ??? Pro bone marrow bx, needle/trocar Right 03/29/2014 ([facility]) BONE MARROW,BIOPSY performed by Kimberly Mondragon MD at [facility] ??? Pro bone marrow aspiration w/bx through same incision/site Left 09/02/2014 ([facility]) BONE MARROW ASP PERFORMED W/BX THRU BX INCISION performed by Kimberly Mondragon MD at [facility] ??? Pro bone marrow bx, needle/trocar Left 09/02/2014 ([facility]) BONE MARROW,BIOPSY performed by Kimberly Mondragon MD at [facility] ??? Pro endobronchial u/s add-on N/A 09/26/2014 ENDOBRONCHIAL ULTRASOUND (EBUS) performed by Jamey Martin MD at [facility] Prior To Admission Medications: Acyclovir 400mg BID Calcium 500mg QD Vit D 100mg QD Docusate 100mg QD Lexapro 10mg QD Neupogen 780mcg QD Fluconazole 200mg QD Levofloxacin 750mg QD Ativan 0.5mg Q6H PRN Allergies Allergies Allergen Reactions ??? Tegaderm [Transparent Dressings] Other (See Comments) Unsure if actual allergy, please try [id number] Skin tears/rawness Family History History reviewed. No pertinent family history. Social History and Habits History Social History ??? Marital Status: Spouse Name: N/A Number of Children: N/A ??? Years of Education: N/A Social History Main Topics ??? Smoking status: Never Smoker ??? Smokeless tobacco: Never Used ??? Alcohol Use: 1.2 oz/week 2 Glasses of wine per week ??? Drug Use: No ??? Sexual Activity: Partners: Male Other Topics Concern ??? None Social History Narrative Immunizations Immunization History Administered Date(s) Administered ??? Influenza Vaccine, Whole 12/22/2004, 01/03/2006 Physical Exam Vitals Last value 24hr range T 36.8 ??C (98.2 ??F) Temp: [36.8 ??C (98.2 ??F)] HR 84 Heart Rate: [74-93] BP 103/58 mmHg BP: (96-114)/(52-69) RR 11 Resp: [-20] SpO2 97 % SpO2: [94 %-99 %] GEN: NAD, resting comfortably with daughter at bedside HEENT: NCAT, EOMi, PERRL DMM, No cervical LAD, 1mm Hematoma on left side of tongue CV: RRR no r/m/g Lungs: CTAB Back: No CVA tenderness Abdomen: Soft, non-tender, non-distended, normoactive BS Extremities: No edema, tattoo on left ankle, mild amount of petechia Neuro: AOx3 No focal deficits. Lab Last 3 wbc, hgb, hct plt Recent Labs 10/21/14202010/16/14 1114 10/14/14 1122 WBC 0.7* 10.24* 3.59* HGB 10.0* 11.9* 11.6* HCT 27.9* 32.7* 33.0* PLATELET 5* 69* 138* Last 3 Lytes Recent Labs 10/21/14202010/11/14 0350 10/10/14 1630 NA 139 144 142 K 3.9 3.7 3.7 CL 94* 108* 106 CO2 30 25 25 BUN 45* 15 13 CREATININE 2.91* 0.60* 0.61* Last 3 LFTs Recent Labs 10/11/14 0350 10/10/14 1630 10/10/14 0425 AST 76* 47* 34* ALT 98* 58* 40* ALKPHOS 86 100 105* BILITOT 0.4 0.4 0.4 BILIDIR 0.1 0.1 0.1 Last Ca, Mg, Phos Recent Labs 10/21/142020 CALCIUM 9.3 Microbiology Not indicated at this time Radiology None New Other Studies None New Assessment & Plan Myriam De Souza is a 64 y.o. female with PMHx of DLBCL Stage IIIa w/ discharge from [facility] [place]11 after 1 cycle of R-DHAP presents to [facility] for plt transfusion w/ platelets of 60,000 on routine labs. She is currently asymptomatic and is not bleeding from any source. Incidentally she has been foundto have LOUISE (on DC 10/11 Cr 0.6 today Cr 2.91) She is not endorsing any decrease in urination or changes in consistency/color. Differential for LOUISE includes pre-renal due to dehydration (although would not expect this high of an elevation simple due to dehydration, could potentially be pre-renal leading to ATN), intrarenal due to chemo (most notably cisplatin), post renal unlikely given lymphadenopathy location on recent pet. Fortunately no electrolyte abnormalities or indications for urgent/emergent dialysis. Although LOUISE and thrombocytopenic low suspicion for TTP/HUS given no altered mental status and alternative clinical dx higher on differential. Will admit for platelet transfusion and LOUISE work up. #Admit to heme/onc A team #Pancytopenia 2/ Chemo 2/2 DLBCL -Type and screen -Consent obtained -Transfuse platelets now -Check platelets post transfusion -Neutropenic precautions -Acyclovir 400mg BID -Continue home Neupogen 780mcg QD (confirm w/ attending in AM to ensure dose appropriate) - Fluconazole 200mg QD - Levofloxacin 750mg QD #LOUISE -Urine lytes -Urinalysis w/ micro -IVF 75cc/h -LFTs #Anxiety -Lexapro 10mg QD -Ativan 0.5mg Q6H PRN #Other - Diet: NPO after midnight for possible procedure - DVT PPx: SCDs, no enox given LOUISE and Plts - GI PPx: Not indicated - Code status: FULL A copy of this document will be sent to the patient's Primary Care Physician and/or Referring Physician. GABBIE CHIU MD Internal Medicine PGY2 Team Pager [phone] 10/21/2014 HEMATOLOGY/BMT STAFF ADMISSION NOTE I interviewed, examined and reviewed data on Myriam De Souza today as part of her admission evaluation. I agree with Dr. Chiu's findings, assessment and plans as listed in her note. Myriam has developed LOUISE. This seems most likely to be due to dehydration. Due to her low counts she will not be ableto proceed with stem cell collection that was planned for today. We will follow her counts with pheresis catheter placement tomorrow and pheresis most likely on . I reviewed Myriam's situationand our plans for today with her during this visit. This patient meets criteria for inpatient level of care based on the above medical complexity. Sylvester Odom MD Section of Hematology/Oncology Page: #[phone] Office Phone: [phone] documented in this encounter Procedure Notes * Jewels Malhotra APRN - 10/23/2014 1:20 PM EDTProcedure(s): SARAI\GOLDY.CATHETER NON-TUNNELED,5YR & OVER VIR PROCEDURE NOTE: Procedure: Temporary LEFT IJ (chest port in RIJ) pheresis catheter placement ACC#: [id number] Indication: 64 y/o with DLBCL scheduled for stem cell collection. Temp pheresis catheter requested.She has a RIJ single lumen port that [...] lidocaine SQ was administered for anesthesia, and a21 ga needle was advanced under ultrasound guidance [...] No contrast administered. Fluoro time: 0.6 min. Impression: Patent LEFT IJ vein; placement temporary LEFT IJ 13 Fr temporary hemodialysis catheter,tip at cavoatrial junction. Recommendation: Catheter ready for use. Procedure performed by Jewels Malhotra APRN Attending: Dr. Caceres was not present for procedure. documented in this encounter ED Notes * Justine Hein RN - 10/22/2014 1:41 AM EDT Report given to LINDA Bolton for pt admission to 115-A * Destinee Mohr MD - 10/21/2014 10:09 PM EDT Myriam De Souza is an 64 y.o. female who presents to the ED with: Chief Complaint Patient presents with ??? IV Medication I saw this patient at 10:09 PM History of Present Illness Myriam De Souza is a 64 y.o. female with non-Hodgkin's lymphoma (DLBCL, stage IIIa) on Neuopogen s/p 6 cycles R-CHOP and then 1 cycle R-DHAP with last prednisone dose 10/12/14 and depression who presents with leukopenia and thrombocytopenia from OSH. Ms. De Souza had residual disease after R-CHOP russell tment then had R-DHAP prior to future planned autologous SCT. She is supposed to have temporary catheter placed tomorrow (10/22/14) with stem cell collection. She has been monitored at [facility] for cell counts and today hers were low so they transferred her to [facility]. She is accompanied by her daughter today and reports that she is tired but otherwise has no complaints. She denies lightheadedness, dizziness, spontaneous bleeding, fevers/chills, cough or URI symptoms. Yesterday, she developed a large bruise on her abdomen from her Neupogen injection. Review of Systems Constitutional: Positive for fatigue. Negative for fever and chills. HENT: Negative for ear pain, sinus pressure and sore throat. Eyes: Negative for pain. Respiratory: Negative for cough and shortness of breath. Cardiovascular: Negative for chest pain and leg swelling. Gastrointestinal: Negative for nausea, vomiting, abdominal pain, diarrhea and constipation. Genitourinary: Negative for dysuria, urgency, frequency and difficulty urinating. Musculoskeletal: Negative for joint swelling. Skin: Negative for rash and wound. Neurological: Negative for dizziness, light-headedness, numbness and headaches. Hematological: As above Psychiatric/Behavioral: Negative for confusion. All other systems reviewed and are negative. PMHx, PSHx (ATOD), meds, & allergies reviewed & updated in chart as necessary. Physical Exam Filed Vitals: 10/21/14 2100 BP: 104/52 Pulse: 85 Temp: 36.8 Resp: 16 Physical Exam Constitutional: She is oriented to person, place, and time. She appears well- developed and well-nourished. No distress. HENT: Head: Normocephalic and atraumatic. Mouth/Throat: Oropharynx is clear and moist. Eyes: Conjunctivae and EOM are normal. Pupils are equal, round, and reactive to light. Neck: Normal range of motion. Neck supple. Cardiovascular: Normal rate, regular rhythm, normal heart sounds and intact distal pulses. Exam reveals no gallop and no friction rub. No murmur heard. Pulmonary/Chest: Effort normal and breath sounds normal. No respiratory distress. Abdominal: Soft. Bowel sounds are normal. She exhibits no distension. There is no tenderness. Musculoskeletal: She exhibits no edema. Neurological: She is alert and oriented to person, place, and time. Skin: Skin is warm and dry. Large ecchymosis on abdomen. Port in right chest. Psychiatric: She has a normal mood and affect. Nursing note and vitals reviewed. ED Course - Patient was evaluated and discussed with Dr. Garcia. - Vitals, triage and nursing notes reviewed. WNL - I reviewed labs: BMP - Cr=2.91, BUN=45 CBC - WBC=0.7 with ANC=0.15 and Dohle body, H/H=10/27.9, platelets=5 INR - 1.0 B Pos - I reviewed records as described above. - I discussed this patient with Hem/Oncology who will admit patient and transfuse. - Patient received these treatments: A/P Assessment: Myriam De Souza is a 64 y.o. female who presented with neutropenia and severe thrombocytopenia despite Neupogen s/p R-CHOP and most recently R- DHAP. She is currently asymptomatic with no fevers/chills or spontaneous bleeding; only ecchymosis from injection on abdomen. Patient is supposed to receive catheter and have stem cell harvesting tomorrow but her counts have decreased significantly since last visit and labs here several days ago. Hem/Onc will admit her and transfuse. Plan/Dispo: - Dispo: Admit to Hem/Onc ([facility]) Destinee Mohr PGY-1 Emergency Medicine Pager: [phone] Destinee Mohr MD Resident 10/22/14 0523 Associated attestation - Avtar Garcia MD - 10/22/2014 12:18 PM EDT ED ATTENDING ATTESTATION NOTE The patient was seen in conjunction with Dr. Santizo, the resident physician. I have independently performed the lora portions of the history and physical exam. I have reviewed the nursing notes, vital signs, and all diagnostic studies personally including labs, imaging studies and EKGs. I have discussed the details of the case with the resident and agree with the assessment and plan as described in the resident note below. Brief Summary: 64 yo with NHL referred from [facility] for low cell counts noted on routine monitoring. Generalized fatigue and large hematoma at injection site but no spontaneous bleed or other complication at this time. Admit to hematology. documented in this encounter Miscellaneous Notes * Plan of Care - Dali Singh RN - 10/25/2014 6:14 AM EDT Problem: General Plan of Care Goal: Plan of Care Review Outcome: Ongoing (Interventions Implemented as Appropriate) 10/25/14 0606 Plan of Care Review Plan of Care Outcome Status ongoing (interventions implemented as appropriate) Progress progress toward functional goals as expected Coping/Psychosocial Response Interventions Plan of Care Reviewed with patient;daughter OUTCOME EVALUATION NOTE: OUTCOME SUMMARY: Pt rested comfortably this shift. Pt required 1 L NC, sat's 93%-98%, VSS. Pt reported nausea was well managed per the timing of her medications, will continue to monitor. Pt verbalized importance of ICS and used frequently prior to falling asleep this evening, will continue to encourage the use of the ICS and deep breathing/coughing exercises. PLAN MOVING FORWARD: Continue to monitor nausea, labs, O2 requirement INDIVIDUALIZED FALL PREVENTION: Assistance: IV pole Supervision: eye's on independent Surveillance: hourly rounding, pt calls appropriately, paul, I/O CPG OUTCOME EVALUATION: Goal: Fall Prevention-Safe Patient Handling 10/24/142099 Safety Interventions Safety Precautions/Fall Reduction environmental modification;fall reduction program maintained;family at bedside;lighting adjusted for task/safety;muscle strengthening facilitated;nonskid shoes/slippers when out of bed Musculoskeletal Interventions Activity/Level of Assistance with stand by assist;up in room Positioning independent Self-Care Promotion personal/BADL objects within reach;personal routines for BADL/IADL promoted;instruction in safe use of adaptive equipment provided Garza Fall Risk History of Falling 0 Secondary Diagnosis 15 Ambulatory Aids 0 Intravenous Therapy/Heparin/Saline Lock 20 Gait/Transferring 0 Mental Status 0 Score 35 OTHER Garza Fall Risk Med Goal: Infection Control Outcome: Ongoing (Interventions Implemented as Appropriate) 10/24/142099 Safety Interventions Isolation Precautions standard precautions maintained;neutropenic precautions maintained Infection Prevention bronchial hygiene promoted;environmental surveillance;hydration promoted;nutrition promoted;promote handwashing;rest/sleep promoted Coping/Psychosocial Response Interventions Counseling calming techniques promoted;emotional support provided;goal setting facilitated;guided imagery facilitated;personal strengths integrated;problem solving facilitated;reassurance provided;relaxation techniques promoted;understanding of situation facilitated;verbalization of feelings encouraged Problem: Skin Integrity Impairment, Risk/Actual (Adult, Obstetrics) Goal: Identify Signs and Symptoms and Related Risk Factors Signs and symptoms and related risk factors are identified upon initiation of Human Response Clinical Practice Guideline (CPG) Outcome: Ongoing (Interventions Implemented as Appropriate) 10/25/14605 Skin Integrity Impairment, Risk/Actual Personal Related Risk Factors (Skin Integrity Impairment, Risk/Actual) stress Physiological Related Risk Factors (Skin Integrity Impairment, Risk/Actual) malignancy Goal: Skin Integrity/Wound Healing Patient will demonstrate the desired outcomes. Outcome: Ongoing (Interventions Implemented as Appropriate) 10/25/14605 Skin Integrity Impairment, Risk/Actual (Adult, Obstetrics) Skin Integrity/Wound Healing making progress toward outcome Problem: Pain, Acute (Adult, Obstetrics) Goal: Identify Signs and Symptoms and Related Risk Factors Signs and symptoms and related risk factors are identified upon initiation of Human Response Clinical Practice Guideline (CPG) Outcome: Ongoing (Interventions Implemented as Appropriate) 10/25/14605 Pain, Acute Related Risk Factors (Acute Pain) comorbidities;disease process;fatigue;stress Signs and Symptoms (Acute Pain) fatigue/weakness Goal: Acceptable Pain Control/Comfort Level Patient will demonstrate the desired outcomes. Outcome: Ongoing (Interventions Implemented as Appropriate) 10/25/14 0606 Pain, Acute (Adult, Obstetrics) Acceptable Pain Control/Comfort Level making progress toward outcome Problem: Neutropenia (Adult, Obstetrics) Goal: Signs and symptoms of listed potential problems will be absent or manageable (reference (Neutropenia (Adult, Obstetrics)) CPG) Outcome: Ongoing (Interventions Implemented as Appropriate) 10/25/14 0606 Neutropenia Problems Assessed (Neutropenia) all Problems Present (Neutropenia) none * Plan of Care - Jaye Swan RN - 10/24/2014 3:25 PM EDT Problem: General Plan of Care Goal: Plan of Care Review Outcome: Ongoing (Interventions Implemented as Appropriate) 10/24/14 1459 Plan of Care Review Plan of Care Outcome Status ongoing (interventions implemented as appropriate) Progress progress toward functional goals as expected Coping/Psychosocial Response Interventions Plan of Care Reviewed with patient OUTCOME EVALUATION NOTE: OUTCOME SUMMARY: Temporary IJ removed by MD this morning as adequate amount of cells obtained. Occlusive dressing isclean, dry and intact. Electrolyte repletion given as ordered, see MAR for details. Zofran and ativan given for nausea w/ good effect. O2 sat noted to drop to mid-80s, 2L NC applied. Given IS and instructed in use. Pt using hourly w/ encouragement. CXR ordered. PLAN MOVING FORWARD: CXR, continue to monitor labs, VS. D/C home when medically ready. INDIVIDUALIZED FALL PREVENTION: Assistance: Stand-by assist Supervision: Intermittent RN supervision, eyes on Surveillance: Continue hourly rounding, Masimo. Nonskid footwear in place when OOB. Call martell in reach, pt rings appropriately. CPG GOAL OUTCOME EVALUATION: Goal: Fall Prevention-Safe Patient Handling Outcome: Ongoing (Interventions Implemented as Appropriate) 10/24/14 1034 10/24/14 1400 Safety Interventions Safety Precautions/Fall Reduction fall reduction program maintained;family at bedside;lighting adjusted for task/safety;low bed;nonskid shoes/slippers when out of bed;room near unit station -- Musculoskeletal Interventions Activity/Level of Assistance -- with stand by assist Positioning independent -- Self-Care Promotion independence encouraged while providing assistance -- Garza Fall Risk History of Falling 0 -- Secondary Diagnosis 15 -- Ambulatory Aids 0 -- Intravenous Therapy/Heparin/Saline Lock 20 -- Gait/Transferring 0 -- Mental Status 0 -- Score 35 -- OTHER Garza Fall Risk Med -- Goal: Infection Control Outcome: Ongoing (Interventions Implemented as Appropriate) 10/24/14 1034 Safety Interventions Isolation Precautions neutropenic precautions maintained Infection Prevention bronchial hygiene promoted;hydration promoted;nutrition promoted;promote handwashing;rest/sleep promoted Coping/Psychosocial Response Interventions Counseling calming techniques promoted;emotional support provided;understanding of situation facilitated Problem: Skin Integrity Impairment, Risk/Actual (Adult, Obstetrics) Goal: Identify Signs and Symptoms and Related Risk Factors Signs and symptoms and related risk factors are identified upon initiation of Human Response Clinical Practice Guideline (CPG) Outcome: Ongoing (Interventions Implemented as Appropriate) 10/24/14 0455 Skin Integrity Impairment, Risk/Actual Personal Related Risk Factors (Skin Integrity Impairment, Risk/Actual) stress Physiological Related Risk Factors (Skin Integrity Impairment, Risk/Actual) malignancy Goal: Skin Integrity/Wound Healing Patient will demonstrate the desired outcomes. Outcome: Ongoing (Interventions Implemented as Appropriate) 10/24/14 1459 Skin Integrity Impairment, Risk/Actual (Adult, Obstetrics) Skin Integrity/Wound Healing making progress toward outcome Problem: Pain, Acute (Adult, Obstetrics) Goal: Identify Signs and Symptoms and Related Risk Factors Signs and symptoms and related risk factors are identified upon initiation of Human Response Clinical Practice Guideline (CPG) Outcome: Ongoing (Interventions Implemented as Appropriate) 10/22/14 0400 10/24/14 1459 Pain, Acute Related Risk Factors (Acute Pain) -- comorbidities;disease process;fatigue;stress Signs and Symptoms (Acute Pain) alteration in muscle tone;fatigue/weakness;verbalization of pain descriptors -- Goal: Acceptable Pain Control/Comfort Level Patient will demonstrate the desired outcomes. Outcome: Ongoing (Interventions Implemented as Appropriate) 10/24/14 1459 Pain, Acute (Adult, Obstetrics) Acceptable Pain Control/Comfort Level making progress toward outcome Problem: Neutropenia (Adult, Obstetrics) Goal: Signs and symptoms of listed potential problems will be absent or manageable (reference (Neutropenia (Adult, Obstetrics)) CPG) Outcome: Ongoing (Interventions Implemented as Appropriate) 10/24/14 1459 Neutropenia Problems Assessed (Neutropenia) all Problems Present (Neutropenia) none * Plan of Care - Pamela Strickland RN - 10/24/2014 5:04 AM EDT Problem: General Plan of Care Goal: Plan of Care Review Outcome: Ongoing (Interventions Implemented as Appropriate) 10/22/14 0400 10/23/14202410/24/14 0455 Plan of Care Review Plan of Care Outcome Status ongoing (interventions implemented as appropriate) -- -- Progress -- -- no change Coping/Psychosocial Response Interventions Plan of Care Reviewed with -- patient -- OUTCOME EVALUATION NOTE: OUTCOME SUMMARY: Pt arrived to floor at 2000 from stem-cell harvesting procedure. Pt tolerated procedure well. Arrived to floor on 2L NC, currently on 1L NC at this time. Requesting to eat yogurt upon arrival to floor. After eating yogurt, pt vomited x1, medicated with compazine with no episodes ofN/V for remainder of shift. Pt requesting to have an antiemetic prior to breakfast and AM medication administration. Slept comfortably throughout night. Calling appropriately to use the bathroom. PLAN MOVING FORWARD: Continue with nausea control. Plan pending results of 10/23 stem-cell harvesting, will know by 0910/24. Continue to wean from O2. INDIVIDUALIZED FALL PREVENTION: Assistance: SBA. Supervision: SBA. Call martell within reach, calling appropriately. Surveillance: masimo and purposeful hourly rounding. CPG OUTCOME EVALUATION: Goal: Fall Prevention-Safe Patient Handling Outcome: Ongoing (Interventions Implemented as Appropriate) 10/23/142024 Safety Interventions Safety Precautions/Fall Reduction environmental modification;fall reduction program maintained;lighting adjusted for task/safety;low bed;room near unit station;nonskid shoes/slippers when out of bed Musculoskeletal Interventions Activity/Level of Assistance up ad fernanda;independently Positioning independent Self-Care Promotion independence encouraged while providing assistance Garza Fall Risk History of Falling 0 Secondary Diagnosis 15 Ambulatory Aids 15 Intravenous Therapy/Heparin/Saline Lock 20 Gait/Transferring 10 Mental Status 0 Score 60 OTHER Garza Fall Risk High Goal: Infection Control Outcome: Ongoing (Interventions Implemented as Appropriate) 10/23/142024 Safety Interventions Isolation Precautions neutropenic precautions maintained Infection Prevention bronchial hygiene promoted;environmental surveillance;hydration promoted;nutrition promoted;promote handwashing;rest/sleep promoted Coping/Psychosocial Response Interventions Counseling calming techniques promoted;personal strengths integrated;reassurance provided;relaxation techniques promoted;understanding of situation facilitated;verbalization of feelings encouraged Problem: Skin Integrity Impairment, Risk/Actual (Adult, Obstetrics) Goal: Identify Signs and Symptoms and Related Risk Factors Signs and symptoms and related risk factors are identified upon initiation of Human Response Clinical Practice Guideline (CPG) Outcome: Ongoing (Interventions Implemented as Appropriate) 10/24/14 0455 Skin Integrity Impairment, Risk/Actual Personal Related Risk Factors (Skin Integrity Impairment, Risk/Actual) stress Physiological Related Risk Factors (Skin Integrity Impairment, Risk/Actual) malignancy Goal: Skin Integrity/Wound Healing Patient will demonstrate the desired outcomes. Outcome: Ongoing (Interventions Implemented as Appropriate) 10/24/14454 Skin Integrity Impairment, Risk/Actual (Adult, Obstetrics) Skin Integrity/Wound Healing making progress toward outcome Problem: Neutropenia (Adult, Obstetrics) Goal: Signs and symptoms of listed potential problems will be absent or manageable (reference (Neutropenia (Adult, Obstetrics)) CPG) Outcome: Ongoing (Interventions Implemented as Appropriate) 10/22/14 0400 10/24/14 0455 Neutropenia Problems Assessed (Neutropenia) -- all Problems Present (Neutropenia) none -- * Plan of Care - Marilu Almazan RN - 10/23/2014 6:04 PM EDT Problem: General Plan of Care Goal: Plan of Care Review 10/22/14 0400 10/23/14 0837 Plan of Care Review Plan of Care Outcome Status ongoing (interventions implemented as appropriate) -- Progress improving -- Coping/Psychosocial Response Interventions Plan of Care Reviewed with -- patient OUTCOME EVALUATION NOTE: OUTCOME SUMMARY: Patient remains on bleeding precautions. No s/s of bleeding noted. Emesis x1 this morning, PRN zofran administered with good effect. Pheresis catheter placed today. Pt then went to the donor room forcollection - has been off the floor since 1100. Will endorse to oncoming shift. Will continue to monitor. PLAN MOVING FORWARD: Nausea management. Monitor counts. INDIVIDUALIZED FALL PREVENTION: Assistance: Independent Supervision: Call light is within reach and pt calls appropriately Surveillance: Continue hourly rounding CPG OUTCOME EVALUATION: Goal: Individualization and Mutuality 10/22/14 0300 Mutuality/Individual Preferences What anxieties, fears or concerns do you have about your health or care? None What questions do you have about your health or care? None What information would help us give you more personalized care? None Goal: Fall Prevention-Safe Patient Handling 10/23/14836 Safety Interventions Safety Precautions/Fall Reduction environmental modification;fall reduction program maintained;low bed;lighting adjusted for task/safety;nonskid shoes/slippers when out of bed Musculoskeletal Interventions Activity/Level of Assistance up ad fernanda;independently Positioning independent Self-Care Promotion independence encouraged while providing assistance;personal/BADL objects withinreach;personal routines for BADL/IADL promoted Garza Fall Risk History of Falling 0 Secondary Diagnosis 0 Ambulatory Aids 0 Intravenous Therapy/Heparin/Saline Lock 20 Gait/Transferring 10 Mental Status 0 Score 30 OTHER Garza Fall Risk Med Goal: Infection Control 10/23/14836 Safety Interventions Isolation Precautions neutropenic precautions maintained Infection Prevention environmental surveillance;hydration promoted;nutrition promoted;promote handwashing;rest/sleep promoted Coping/Psychosocial Response Interventions Counseling calming techniques promoted;emotional support provided;goal setting facilitated;personalstrengths integrated;problem solving facilitated;understanding of situation facilitated;verbalization of feelings encouraged;relaxation techniques promoted;reassurance provided Goal: Discharge Needs Assessment 10/23/14 06 Discharge Needs Assessment Concerns to be Addressed no discharge needs identified Readmission Within the Last 30 Days no previous admission in last 30 days Equipment Needed After Discharge none Current Health Anticipated Changes Related to Illness none Self-Care Equipment Currently Used at Home none Living Environment Transportation Available family or friend will provide Problem: Skin Integrity Impairment, Risk/Actual (Adult, Obstetrics) Goal: Skin Integrity/Wound Healing Patient will demonstrate the desired outcomes. 10/22/14399 Skin Integrity Impairment, Risk/Actual (Adult, Obstetrics) Skin Integrity/Wound Healing making progress toward outcome Problem: Pain, Acute (Adult, Obstetrics) Goal: Identify Signs and Symptoms and Related Risk Factors Signs and symptoms and related risk factors are identified upon initiation of Human Response Clinical Practice Guideline (CPG) 10/22/14399 Pain, Acute Related Risk Factors (Acute Pain) disease process;other (see comments) (Bone pain r/t injections for stem cell harvest) Signs and Symptoms (Acute Pain) alteration in muscle tone;fatigue/weakness;verbalization of pain descriptors Goal: Acceptable Pain Control/Comfort Level Patient will demonstrate the desired outcomes. 10/22/14399 Pain, Acute (Adult, Obstetrics) Acceptable Pain Control/Comfort Level making progress toward outcome Problem: Neutropenia (Adult, Obstetrics) Goal: Signs and symptoms of listed potential problems will be absent or manageable (reference (Neutropenia (Adult, Obstetrics)) CPG) 10/22/14399 Neutropenia Problems Assessed (Neutropenia) all Problems Present (Neutropenia) none * Plan of Care - Selam Murrell RN - 10/23/2014 6:16 AM EDT Problem: General Plan of Care Goal: Plan of Care Review Outcome: Ongoing (Interventions Implemented as Appropriate) 10/22/1439910/23/1438 Plan of Care Review Plan of Care Outcome Status ongoing (interventions implemented as appropriate) -- Progress improving -- Coping/Psychosocial Response Interventions Plan of Care Reviewed with -- patient OUTCOME EVALUATION NOTE: OUTCOME SUMMARY: Patient remains on neutropenic and bleeding precautions. Afebrile and no signs of bleeding noted. Denies nausea and pain. No acute events occurred this shift. Will continue to monitor. PLAN MOVING FORWARD: Monitor labs Monitor s/s infection INDIVIDUALIZED FALL PREVENTION: Assistance: Independent Supervision: ad Lin Surveillance: Purposeful hourly rounding, fall precautions maintained CPG GOAL OUTCOME EVALUATION: Goal: Fall Prevention-Safe Patient Handling Outcome: Ongoing (Interventions Implemented as Appropriate) 10/23/1438 Safety Interventions Safety Precautions/Fall Reduction family at bedside;fall reduction program maintained;environmentalmodification;nonskid shoes/slippers when out of bed Musculoskeletal Interventions Activity/Level of Assistance up ad fernanda;up in room Positioning independent Self-Care Promotion independence encouraged while providing assistance;grooming assistance provided;hygiene assistance provided Garza Fall Risk History of Falling 0 Secondary Diagnosis 0 Ambulatory Aids 0 Intravenous Therapy/Heparin/Saline Lock 20 Gait/Transferring 10 Mental Status 0 Score 30 OTHER Garza Fall Risk Med Goal: Infection Control Outcome: Ongoing (Interventions Implemented as Appropriate) 10/23/1438 Safety Interventions Isolation Precautions neutropenic precautions maintained Infection Prevention environmental surveillance;hydration promoted;nutrition promoted Coping/Psychosocial Response Interventions Counseling calming techniques promoted;emotional support provided Goal: Discharge Needs Assessment Outcome: Ongoing (Interventions Implemented as Appropriate) 10/23/14 0608 Discharge Needs Assessment Concerns to be Addressed no discharge needs identified Readmission Within the Last 30 Days no previous admission in last 30 days Equipment Needed After Discharge none Current Health Anticipated Changes Related to Illness none Self-Care Equipment Currently Used at Home none Living Environment Transportation Available family or friend will provide Problem: Pain, Acute (Adult, Obstetrics) Goal: Identify Signs and Symptoms and Related Risk Factors Signs and symptoms and related risk factors are identified upon initiation of Human Response Clinical Practice Guideline (CPG) Outcome: Ongoing (Interventions Implemented as Appropriate) 10/22/14 0400 Pain, Acute Related Risk Factors (Acute Pain) disease process;other (see comments) (Bone pain r/t injections for stem cell harvest) Signs and Symptoms (Acute Pain) alteration in muscle tone;fatigue/weakness;verbalization of pain descriptors Problem: Neutropenia (Adult, Obstetrics) Goal: Signs and symptoms of listed potential problems will be absent or manageable (reference (Neutropenia (Adult, Obstetrics)) CPG) Outcome: Ongoing (Interventions Implemented as Appropriate) 10/22/14 0400 Neutropenia Problems Assessed (Neutropenia) all Problems Present (Neutropenia) none * Plan of Care - Marilu Almazan RN - 10/22/2014 5:24 PM EDT Problem: General Plan of Care Goal: Plan of Care Review 10/22/14 0400 10/22/14 1000 Plan of Care Review Plan of Care Outcome Status ongoing (interventions implemented as appropriate) -- Progress improving -- Coping/Psychosocial Response Interventions Plan of Care Reviewed with -- patient OUTCOME EVALUATION NOTE: OUTCOME SUMMARY: Patient remains on neutropenic and bleeding precautions. Afebrile and no signs of bleeding noted. Denies nausea and pain. No acute events occurred this shift. Will continue to monitor. PLAN MOVING FORWARD: Monitor vitals and counts. NPO @ 0000. INDIVIDUALIZED FALL PREVENTION: Assistance: Independent Supervision: Call light is within reach and pt calls appropriately Surveillance: Continue hourly rounding CPG OUTCOME EVALUATION: Goal: Individualization and Mutuality 10/22/14 0300 Mutuality/Individual Preferences What anxieties, fears or concerns do you have about your health or care? None What questions do you have about your health or care? None What information would help us give you more personalized care? None Goal: Fall Prevention-Safe Patient Handling 10/22/14 1000 Safety Interventions Safety Precautions/Fall Reduction environmental modification;fall reduction program maintained;lighting adjusted for task/safety;low bed;nonskid shoes/slippers when out of bed Musculoskeletal Interventions Activity/Level of Assistance up ad fernanda Positioning independent Self-Care Promotion independence encouraged while providing assistance;personal routines for BADL/IADL promoted;personal/BADL objects within reach Garza Fall Risk History of Falling 0 Secondary Diagnosis 0 Ambulatory Aids 0 Intravenous Therapy/Heparin/Saline Lock 20 Gait/Transferring 10 Mental Status 0 Score 30 OTHER Garza Fall Risk Med Goal: Infection Control 10/22/14 1000 Safety Interventions Isolation Precautions neutropenic precautions maintained Infection Prevention environmental surveillance;hydration promoted;promote handwashing;rest/sleep promoted;nutrition promoted Coping/Psychosocial Response Interventions Counseling calming techniques promoted;emotional support provided;goal setting facilitated;personalstrengths integrated;problem solving facilitated;relaxation techniques promoted;understanding of situation facilitated;verbalization of feelings encouraged;reassurance provided Goal: Discharge Needs Assessment 10/22/14 0300 Living Environment Transportation Available car;family or friend will provide Problem: Skin Integrity Impairment, Risk/Actual (Adult, Obstetrics) Goal: Skin Integrity/Wound Healing Patient will demonstrate the desired outcomes. 10/22/14 040 Skin Integrity Impairment, Risk/Actual (Adult, Obstetrics) Skin Integrity/Wound Healing making progress toward outcome Problem: Pain, Acute (Adult, Obstetrics) Goal: Identify Signs and Symptoms and Related Risk Factors Signs and symptoms and related risk factors are identified upon initiation of Human Response Clinical Practice Guideline (CPG) 10/22/14 040 Pain, Acute Related Risk Factors (Acute Pain) disease process;other (see comments) (Bone pain r/t injections for stem cell harvest) Signs and Symptoms (Acute Pain) alteration in muscle tone;fatigue/weakness;verbalization of pain descriptors Goal: Acceptable Pain Control/Comfort Level Patient will demonstrate the desired outcomes. 10/22/14 040 Pain, Acute (Adult, Obstetrics) Acceptable Pain Control/Comfort Level making progress toward outcome Problem: Neutropenia (Adult, Obstetrics) Goal: Signs and symptoms of listed potential problems will be absent or manageable (reference (Neutropenia (Adult, Obstetrics)) CPG) 10/22/14 040 Neutropenia Problems Assessed (Neutropenia) all Problems Present (Neutropenia) none * Plan of Care - Che Singh RN - 10/22/2014 4:07 AM EDT Problem: General Plan of Care Goal: Plan of Care Review Outcome: Ongoing (Interventions Implemented as Appropriate) 10/22/14 0400 Plan of Care Review Plan of Care Outcome Status ongoing (interventions implemented as appropriate) Progress improving Coping/Psychosocial Response Interventions Plan of Care Reviewed with patient OUTCOME EVALUATION NOTE: OUTCOME SUMMARY: Myriam was admitted these evening from the ED after arriving from [facility] for a platelet infusion. Since arrival she has been stable, afebrile. Labs drawn, awaiting results. IVF started and magnesium replacement initiated. Reports bone pain, but has not requested any pain medication. Offers no other complaints. Will continue to monitor. PLAN MOVING FORWARD: NPO, transfuse as necessary. Continue teaching about neutropenia precautions. Monitor VS. INDIVIDUALIZED FALL PREVENTION: Assistance: IV pole Supervision: SBA Surveillance: Hourly roundingPaul CPG OUTCOME EVALUATION: Goal: Fall Prevention-Safe Patient Handling Outcome: Ongoing (Interventions Implemented as Appropriate) 10/22/14 0145 10/22/14 0246 10/22/14 0300 Safety Interventions Safety Precautions/Fall Reduction -- -- -- Musculoskeletal Interventions Activity/Level of Assistance up ad fernanda -- -- Positioning -- independent -- Self-Care Promotion -- -- -- Garza Fall Risk History of Falling -- -- 0 Secondary Diagnosis -- -- 0 Ambulatory Aids -- -- 0 Intravenous Therapy/Heparin/Saline Lock -- -- 20 Gait/Transferring -- -- 10 Mental Status -- -- 0 Score -- -- 30 OTHER Garza Fall Risk -- -- Med 10/22/14 0400 Safety Interventions Safety Precautions/Fall Reduction environmental modification;fall reduction program maintained;lighting adjusted for task/safety;low bed;nonskid shoes/slippers when out of bed;room near unit station Musculoskeletal Interventions Activity/Level of Assistance -- Positioning -- Self-Care Promotion independence encouraged while providing assistance Garza Fall Risk History of Falling -- Secondary Diagnosis -- Ambulatory Aids -- Intravenous Therapy/Heparin/Saline Lock -- Gait/Transferring -- Mental Status -- Score -- OTHER Garza Fall Risk -- Goal: Infection Control Outcome: Ongoing (Interventions Implemented as Appropriate) 10/22/14 0246 10/22/14399 Safety Interventions Isolation Precautions -- neutropenic precautions discontinued Infection Prevention -- bronchial hygiene promoted;environmental surveillance;promote handwashing;rest/sleep promoted Coping/Psychosocial Response Interventions Counseling calming techniques promoted;emotional support provided;personal strengths integrated;problem solving facilitated;reassurance provided;relaxation techniques promoted;understanding of situation facilitated;verbalization of feelings encouraged -- Problem: Skin Integrity Impairment, Risk/Actual (Adult, Obstetrics) Goal: Skin Integrity/Wound Healing Patient will demonstrate the desired outcomes. Outcome: Ongoing (Interventions Implemented as Appropriate) 10/22/14399 Skin Integrity Impairment, Risk/Actual (Adult, Obstetrics) Skin Integrity/Wound Healing making progress toward outcome Problem: Pain, Acute (Adult, Obstetrics) Goal: Identify Signs and Symptoms and Related Risk Factors Signs and symptoms and related risk factors are identified upon initiation of Human Response Clinical Practice Guideline (CPG) Outcome: Ongoing (Interventions Implemented as Appropriate) 10/22/14399 Pain, Acute Related Risk Factors (Acute Pain) disease process;other (see comments) (Bone pain r/t injections for stem cell harvest) Signs and Symptoms (Acute Pain) alteration in muscle tone;fatigue/weakness;verbalization of pain descriptors Goal: Acceptable Pain Control/Comfort Level Patient will demonstrate the desired outcomes. Outcome: Ongoing (Interventions Implemented as Appropriate) 10/22/14399 Pain, Acute (Adult, Obstetrics) Acceptable Pain Control/Comfort Level making progress toward outcome Problem: Neutropenia (Adult, Obstetrics) Goal: Signs and symptoms of listed potential problems will be absent or manageable (reference (Neutropenia (Adult, Obstetrics)) CPG) Outcome: Ongoing (Interventions Implemented as Appropriate) 10/22/14399 Neutropenia Problems Assessed (Neutropenia) all Problems Present (Neutropenia) none * ED Triage - Mayra Plata RN - 10/21/2014 7:03 PM EDT Pt sent by [facility] for platelet infusion. Pt is undergoing chemo treatment for non- hodgkins lymphoma. Last chemo approx 2 weeks ago. No distress noted. documented in this encounter Plan of Treatment Upcoming Encounters Date Type Department Care Team (Late st Contact Info) Description 12/07/2023 12:00 PM EDT Office Visit Dermatology at [facility] [address] [place] [address] Juan F Chappell [facility] [address] documented as of this encounter Procedures Procedure Name Priority Date/Time Associated Diagnosis Comments LAB SCAN 10/26/2014 12:00 AM EDT MAGNESIUM Routine 10/25/2014 8:30 AM EDT BASIC METABOLIC PANEL Routine 10/25/2014 8:30 AM EDT DIFFERENTIAL, MANUAL Routine 10/25/2014 4:10 AM EDT HEMOGRAM Routine 10/25/2014 4:10 AM EDT CBC (WITH DIFF) Routine 10/25/2014 4:10 AM EDT XR CHEST PA AND LATERAL Routine 10/24/2014 4:15 PM EDT DIFFERENTIAL, MANUAL Routine 10/24/2014 4:05 AM EDT HEMOGRAM Routine 10/24/2014 4:05 AM EDT CBC (WITH DIFF) Routine 10/24/2014 4:05 AM EDT MAGNESIUM Routine 10/24/2014 4:05 AM EDT BASIC METABOLIC PANEL Routine 10/24/2014 4:05 AM EDT DIFFERENTIAL, MANUAL STAT 10/23/2014 7:04 PM EDT HEMOGRAM STAT 10/23/2014 7:04 PM EDT IR TUNNELED CENTRAL VENOUS ACCESS NON-DIALYSIS Routine 10/23/2014 12:59 PM EDT DLBCL (diffuse large B cell lymphoma) DIFFERENTIAL, MANUAL Routine 10/23/2014 3:00 AM EDT HEMOGRAM Routine 10/23/2014 3:00 AM EDT CD34 PERIPHERAL BLOOD Routine 10/23/2014 3:00 AM EDT CBC (WITH DIFF) Routine 10/23/2014 3:00 AM EDT MAGNESIUM Routine 10/23/2014 3:00 AM EDT BASIC METABOLIC PANEL Routine 10/23/2014 3:00 AM EDT BASIC METABOLIC PANEL Routine 10/22/2014 10:55 AM EDT SCAN, PERIPHERAL BLOOD Routine 10/22/2014 3:43 AM EDT HEMOGRAM Routine 10/22/2014 3:43 AM EDT DIFFERENTIAL, AUTOMATED Routine 10/22/2014 3:43 AM EDT APTT Routine 10/22/2014 3:43 AM EDT PROTHROMBIN TIME Routine 10/22/2014 3:43 AM EDT CBC (WITH DIFF) Routine 10/22/2014 3:43 AM EDT HEPATIC FUNCTION PANEL Routine 10/22/2014 3:43 AM EDT TRANSFUSE 1 UNIT PLATELET PHERESIS Routine 10/22/2014 12:44 AM EDT SODIUM, URINE, RANDOM STAT 10/22/2014 12:40 AM EDT CREATININE, URINE, RANDOM STAT 10/22/2014 12:40 AM EDT URINALYSIS WITH REFLEX CULTURE STAT 10/22/2014 12:40 AM EDT PREPARE PLATELETS, APHERESIS Routine 10/21/2014 11:55 PM EDT ABO/RH TYPING STAT 10/21/2014 8:30 PM EDT ANTIBODY SCREEN STAT 10/21/2014 8:30 PM EDT TYPE AND SCREEN ([facility]/MARTHA) STAT 10/21/2014 8:30 PM EDT DIFFERENTIAL, MANUAL STAT 10/21/2014 8:21 PM EDT HEMOGRAM STAT 10/21/2014 8:21 PM EDT GOLD TUBE HOLD STAT 10/21/2014 8:21 PM EDT BLUE TUBE HOLD STAT 10/21/2014 8:21 PM EDT CBC (WITH DIFF) STAT 10/21/2014 8:21 PM EDT URIC ACID STAT 10/21/2014 8:21 PM EDT PHOSPHORUS STAT 10/21/2014 8:21 PM EDT MAGNESIUM STAT 10/21/2014 8:21 PM EDT BASIC METABOLIC PANEL STAT 10/21/2014 8:21 PM EDT MAGNESIUM Add-On 10/21/2014 11:30 AM EDT documented in this encounter Results * SCAN DOC: LAB (10/26/2014 12:00 AM EDT) Scanning Provider MEDIA MGR SCAN EXT O RDR/RSLT * Magnesium (10/25/2014 8:30 AM EDT) Magnesium 0.73 0.69 - 1.07 mmol/L [facility] Blood specimen (specimen) 10/25/2014 8:30 AM EDT 10/25/2014 8:51 AM EDT Narrative Resulting Agency Comment Spec In Lab Sylvester Odom MD CHEMISTRY ORDERA [facility] Organization Address City/State/ZIP Co de Phone Number CERNER MILLENNIUM * (ABNORMAL) Basic Metabolic Panel (non-fasting) (10/25/2014 8:30 AM EDT) [facility] Glucose 100 65 - 199 mg/dL CERNER MILLENNIUM Comment:Diabetes: >=200 mg/d L plus symptoms Blood Urea Nitrogen 13 8 - 18 mg/dL CERNER MILLENNIUM Creatinine 1.50(H) 0.70 - 1.20 mg/dL CERNER MILLENNIUM Comment: [...] - 107 mmol/L CERNER MILLENNIUM Carbon Dioxide 35(H) 22 - 31 mmol/L CERNER MILLENNIUM Anion Gap 9 5 - 15 mmol/L CERNER MILLENNIUM Calcium 8.8 8.5 - 10.5 mg/dL CERNER MILLENNIUM Est Glomerular Filtration Rate 35(L) >=60 CERNER MILLENNIUM Comment: This estimated GFR [...] the following links into your internet browser. [email or web address] Blood specimen (specimen) 10/25/2014 8:30 AM EDT 10/25/2014 8:51 AM EDT Narrative Resulting Agency Comment Spec In Lab Sylvester Odom MD CHEMISTRY ORDERA BLES CERNER MILLENNIUM * (ABNORMAL) Differential, Manual (10/25/2014 4:10 AM EDT) Neutrophil % Manual 81 % CERNER MILLENNIUM Band % 7 % CERNER MILLENNIUM Lymphocyte Manual 1 % CE RNER MILLENNIUM Monocyte Manual 5 % CERN ER MILLENNIUM Eosinophil Manual 1 % CE RNER MILLENNIUM Metamyelocyte Manual 2 % CERNER MILLENNIUM Myelocyte Manual 3 % CER NER MILLENNIUM Neutrophil Absolute (ANC) - Manual 16.0(H) 1.5 - 6.3 x10(3)/mc L CERNER MILLENNIUM Band Abs 1.4(H) 0.2 - 0.6 x10(3)/mc L CERNER MILLENNIUM Neutrophil Absolute (ANC) - Automated 17.39(H) 1.50 - 6.30 x10(3)/mc L CERNER MILLENNIUM Lymph Absolute Manual 0.2(L) 1.0 - 3.6 x10(3)/mc L CERNER MILLENNIUM Monocyte Absolute Manual 1.0 0.2 - 1.0 x10(3)/mc L CERNER MILLENNIUM Eos Absolute Manual 0.2 0.0 - 0.5 x10(3)/mc L CERNER MILLENNIUM [place] Absolute Manual 0.4(H) 0.0 - 0.0 x10(3)/mc L CERNER MILLENNIUM Myelo Absolute Manual 0.6(H) 0.0 - 0.0 x10(3)/mc L CERNER MILLENNIUM Total Cells Ct 100 CERNE R MILLENNIUM Plat estimate Decreased CERNER MILLENNIUM RBC Morphology Abnormal CERNE R MILLENNIUM Hypochromia Slight CERNER MILLENNIUM Dohle Bodies Present CERNER MILLENNIUM Blood specimen (specimen) 10/25/2014 4:10 AM EDT 10/25/2014 4:22 AM EDT Narrative Resulting Agency Comment Spec In Lab Sylvester Odom MD HEMATOLOGY ORDER AYO CERNER MILLENNIUM * (ABNORMAL) Hemogram (10/25/2014 4:10 AM EDT) White Blood Cell 19.8(H) 4.0 - 10.0 x10(3)/mc L CERNER MILLENNIUM Red Blood Cell 2.48(L) 3.93 - 5.22 x10(6)/mc L CERNER MILLENNIUM Hemoglobin 7.9(L) 11.2 - 15.7 gm/dL CERNER MILLENNIUM Hematocrit 22.2(L) 34.0 - 45.0 % CERNER MILLENNIUM Mean Cell Volume 89.5 79.0 - 94.0 fL CERNER MILLENNIUM Mean Cell Hemoglobin 31.9 26.6 - 32.2 pg CERNER MILLENNIUM Mean Cell Hemoglobin Concentration 35.6 32.0 - 36.5 gm/dL CERNER MILLENNIUM Platelet 31(L) 145 - 370 x10(3)/mc L CERNER MILLENNIUM RDW Standard Deviation 39.7 35.0 - 46.0 fL CERNER MILLENNIUM RDW coefficient of variation 12.1 10.9 - 14.4 % CERNER MILLENNIUM Mean Platelet Volume 9.6 9.0 - 12.0 fL CERNER MILLENNIUM Blood specimen (specimen) 10/25/2014 4:10 AM EDT 10/25/2014 4:22 AM EDT Narrative Resulting Agency Comment Spec In Lab Sylvester Odom MD HEMATOLOGY ORDER AYO GIBRAN COREAS * XR Chest Routine PA & Lateral (10/24/2014 4:15 PM EDT) Anatomical Region Laterality Modality Chest N/A Radiographic Bekah ging 10/24/2014 4:15 PM EDT Impressions 10/24/2014 4:36 PM EDT IMPRESSION: No pneumonia or other acute cardiopulmonary process. Decreased bulk of mediastinal lymphadenopathy. New small bilateral pleural effusions. This report was reviewed by Abhinav Kwon at 10/24/2014 4:31 PM Film and interpretation reviewed by the attending Narrative 10/24/2014 4:36 PM EDT EXAMINATION: CHEST ROUTINE 2 VIEWS CLINICAL HISTORY: Pt w/ new O2 requirement since yesterday. Pls evaluate for pulm edema vs atelectasis vs PNA. Thank you. TECHNIQUE: PA and lateral chest radiographs. COMPARISON: CT chest 02/26/2014. FINDINGS: The lungs are clear. The previously noted massive mediastinal lymphadenopathy has decreased. There are new small bibasilar pleural effusions. Cardiac silhouette is within normal limits. No pneumothorax. Right-sided Mediport with tip terminating in the SVC. No acute osseous abnormalities. Procedure Note Abhinav Kwon MD - 10/24/2014 EXAMINATION: CHEST ROUTINE 2 VIEWS CLINICAL HISTORY: Pt w/ new O2 requirement since yesterday. Pls evaluatefor pulm edema vs atelectasis vs PNA. Thank you. TECHNIQUE: PA and lateral chest radiographs. COMPARISON: CT chest 02/26/2014. FINDINGS: The lungs are clear. The previously noted massive mediastinallymphadenopathy has decreased. There are new small bibasilar pleural effusions. Cardiac silhouette is within normal limits. No pneumothorax. Right-sided Mediportwith tip terminating in the SVC. No acute osseous abnormalities. IMPRESSION IMPRESSION: No pneumonia or other acute cardiopulmonary process. Decreased bulk of mediastinal lymphadenopathy. New small bilateral pleural effusions. This report was reviewed by Abhinav Kwon at 10/24/2014 4:31 PM Film and interpretation reviewed by the attending Sylvester Odom MD IMG DX ORDERABLE S * (ABNORMAL) Differential, Manual (10/24/2014 4:05 AM EDT) Neutrophil % Manual 81 % CERNER MILLENNIUM Band % 6 % CERNER MILLENNIUM Lymphocyte Manual 6 % CE RNER MILLENNIUM Monocyte Manual 2 % CERN ER MILLENNIUM Metamyelocyte Manual 4 % CERNER MILLENNIUM Myelocyte Manual 1 % CER NER MILLENNIUM Neutrophil Absolute (ANC) - Manual 9.4(H) 1.5 - 6.3 x10(3)/mc L CERNER MILLENNIUM Band Abs 0.7(H) 0.2 - 0.6 x10(3)/mc L CERNER MILLENNIUM Neutrophil Absolute (ANC) - Automated 10.06(H) 1.50 - 6.30 x10(3)/mc L CERNER MILLENNIUM Lymph Absolute Manual 0.7(L) 1.0 - 3.6 x10(3)/mc L CERNER MILLENNIUM Monocyte Absolute Manual 0.2 0.2 - 1.0 x10(3)/mc L CERNER MILLENNIUM [place] Absolute Manual 0.5(H) 0.0 - 0.0 x10(3)/mc L CERNER MILLENNIUM Myelo Absolute Manual 0.1(H) 0.0 - 0.0 x10(3)/mc L CERNER MILLENNIUM Total Cells Ct 100 CERNE R MILLENNIUM Plat estimate Decreased CERNER MILLENNIUM RBC Morphology Normal CERNE R MILLENNIUM Toxic Granulation Present CE RNER MILLENNIUM Dohle Bodies Present CERNER MILLENNIUM Blood specimen (specimen) 10/24/2014 4:05 AM EDT 10/24/2014 4:20 AM EDT Narrative Resulting Agency Comment Spec In Lab Sylvester Odom MD HEMATOLOGY ORDER AYO CERNER MILLENNIUM * (ABNORMAL) Hemogram (10/24/2014 4:05 AM EDT) White Blood Cell 11.6(H) 4.0 - 10.0 x10(3)/mc L CERNER MILLENNIUM Red Blood Cell 2.58(L) 3.93 - 5.22 x10(6)/mc L CERNER MILLENNIUM Hemoglobin 8.2(L) 11.2 - 15.7 gm/dL CERNER MILLENNIUM Hematocrit 23.1(L) 34.0 - 45.0 % CERNER MILLENNIUM Mean Cell Volume 89.5 79.0 - 94.0 fL CERNER MILLENNIUM Mean Cell Hemoglobin 31.8 26.6 - 32.2 pg CERNER MILLENNIUM Mean Cell Hemoglobin Concentration 35.5 32.0 - 36.5 gm/dL CERNER MILLENNIUM Platelet 21(L) 145 - 370 x10(3)/mc L CERNER MILLENNIUM RDW Standard Deviation 39.2 35.0 - 46.0 fL CERNER MILLENNIUM RDW coefficient of variation 12.0 10.9 - 14.4 % CERNER MILLENNIUM Mean Platelet Volume 9.9 9.0 - 12.0 fL CERNER MILLENNIUM Blood specimen (specimen) 10/24/2014 4:05 AM EDT 10/24/2014 4:20 AM EDT Narrative Resulting Agency Comment Spec In Lab Sylvester Odom MD HEMATOLOGY ORDER AYO CERNER MILLENNIUM * (ABNORMAL) Magnesium (10/24/2014 4:05 AM EDT) Magnesium 0.47(L) 0.69 - 1.07 mmol/L CERNER MILLENNIUM Blood specimen (specimen) 10/24/2014 4:05 AM EDT 10/24/2014 4:20 AM EDT Narrative Resulting Agency Comment Spec In Lab Sylvester Odom MD CHEMISTRY ORDERA BLES Performing Organization Address [facility] de Phone Number CERNER MILLENNIUM * (ABNORMAL) Basic Metabolic Panel (non-fasting) (10/24/2014 4:05 AM EDT) Glucose 86 65 - 199 mg/dL CERNER MILLENNIUM Comment:Diabetes: >=200 mg/d L plus symptoms Blood Urea Nitrogen 17 8 - 18 mg/dL CERNER MILLENNIUM Creatinine 1.58(H) 0.70 - 1.20 mg/dL CERNER MILLENNIUM Comment: Please note that the pediatric reference intervals supplied above were not validated [place] [facility] Results from pediatric patients should be interpreted in conjunction to the patient's age, height and muscle mass. Sodium 144 135 - 145 mmol/L CERNER MILLENNIUM Potassium 3.3(L) 3.5 - 5.0 mmol/L CERNER MILLENNIUM Comment: Please note: ??Patients with WBC >100,000 may have falsely elevated Potassium levels. ??For accurate Potassium quantification in these patients send serum separator tube (gold top) for subsequent determinations. ??Contact the Clinical Chemistry Laboratory if there are any questions. Chloride 98 98 - 107 mmol/L CERNER MILLENNIUM Carbon Dioxide 34(H) 22 - 31 mmol/L CERNER MILLENNIUM Anion Gap 12 5 - 15 mmol/L CERNER MILLENNIUM Calcium 9.1 8.5 - 10.5 mg/dL CERNER MILLENNIUM Est Glomerular Filtration Rate 33(L) >=60 CERNER MILLENNIUM Comment: This estimated GFR [...] the following links into your internet browser. [email or web address] Blood specimen (specimen) 10/24/2014 4:05 AM EDT 10/24/2014 4:20 AM EDT Narrative Resulting Agency Comment Spec In Lab Sylvester Odom MD CHEMISTRY ORDERA [facility] CERNER MILLENNIUM * (ABNORMAL) Differential, Manual (10/23/2014 7:04 PM EDT) Neutrophil % Manual 53 % CERNER MILLENNIUM Band % 21 % CERNER MILLENNIUM Lymphocyte Manual 7 % CERNER MILLENNIUM Monocyte Manual 12 % CERN ER MILLENNIUM Eosinophil Manual 2 % CERNER MILLENNIUM Myelocyte Manual 4 % CER NER MILLENNIUM Promyelocyte Manual 1 % CERNER MILLENNIUM Neutrophil Absolute (ANC) - Manual 3.8 1.5 - 6.3 x10(3)/mc L CERNER MILLENNIUM Band Abs 1.5(H) 0.2 - 0.6 x10(3)/mc L CERNER MILLENNIUM Neutrophil Absolute (ANC) - Automated 5.33 1.50 - 6.30 x10(3)/mc L CERNER MILLENNIUM Lymph Absolute Manual 0.5(L) 1.0 - 3.6 x10(3)/mc L CERNER MILLENNIUM Monocyte Absolute Manual 0.9 0.2 - 1.0 x10(3)/mc L CERNER MILLENNIUM Eos Absolute Manual 0.1 0.0 - 0.5 x10(3)/mc L CERNER MILLENNIUM Myelo Absolute Manual 0.3(H) 0.0 - 0.0 x10(3)/mc L CERNER MILLENNIUM Promyelo Absolute Manual 0.1(H) 0.0 - 0.0 x10(3)/mc L CERNER MILLENNIUM Total Cells Ct 100 CERNE R MILLENNIUM Plat estimate Decreased CERNER MILLENNIUM RBC Morphology Abnormal CERNE R MILLENNIUM Ovalocytes 1-5 /HPF CERNER MILLENNIUM Toxic Granulation Present CERNER MILLENNIUM Dohle Bodies Present CERNER MILLENNIUM Blood specimen (specimen) Venous Draw / Unknown 10/23/2014 7:04 PM EDT 10/23/2014 7:28 PM EDT Narrative Resulting Agency Comment Spec In Lab Alana Rouse MD HEMATOLOGY ORDERABLES CERNER MILLENNIUM * (ABNORMAL) Hemogram (10/23/2014 7:04 PM EDT) White Blood Cell 7.2 4.0 - 10.0 x10(3)/mc L CERNER MILLENNIUM Red Blood Cell 2.47(L) 3.93 - 5.22 x10(6)/mc L CERNER MILLENNIUM Hemoglobin 7.8(L) 11.2 - 15.7 gm/dL CERNER MILLENNIUM Hematocrit 22.0(L) 34.0 - 45.0 % CERNER MILLENNIUM Mean Cell Volume 89.1 79.0 - 94.0 fL CERNER MILLENNIUM Mean Cell Hemoglobin 31.6 26.6 - 32.2 pg CERNER MILLENNIUM Mean Cell Hemoglobin Concentration 35.5 32.0 - 36.5 gm/dL CERNER MILLENNIUM Platelet 19(Critic al) 145 - 370 x10(3)/mc L CERNER MILLENNIUM RDW Standard Deviation 38.6 35.0 - 46.0 fL CERNER MILLENNIUM RDW coefficient of variation 11.9 10.9 - 14.4 % CERNER MILLENNIUM Mean Platelet Volume 9.6 9.0 - 12.0 fL CERNER MILLENNIUM Blood specimen (specimen) Venous Draw / Unknown 10/23/2014 7:04 PM EDT 10/23/2014 7:25 PM EDT Narrative Resulting Agency Comment Spec In Lab Alana Rouse MD HEMATOLOGY ORDERABLES GIBRAN COREAS * IR central venous access (10/23/2014 12:59 PM EDT) Anatomical Region Laterality Modality Chest, Vascular X-Ray Angiograph y 10/23/2014 12:5 9 PM EDT Impressions 10/23/2014 4:47 PM EDT Impression: Patent LEFT IJ vein; placement temporary LEFT IJ 13 Fr temporary hemodialysis catheter, tip at cavoatrial junction. Recommendation: Catheter ready for use. Procedure performed by Jewels Malhotra APRN Attending: Dr. Caceres was not present for procedure. Narrative 10/23/2014 4:47 PM EDT VIR PROCEDURE NOTE: Procedure: Temporary LEFT IJ (chest port in RIJ) pheresis catheter placement ACC#: [id number] Indication: 64 y/o with DLBCL scheduled for [...] administered. Fluoro time: 0.6 min. Procedure Note ForRomel bright MD - 10/23/2014 VIR PROCEDURE NOTE: Procedure: Temporary LEFT IJ (chest port in RIJ) pheresis catheterplacement ACC#: [id number] Indication: 64 y/o with DLBCL scheduled for [...] ready for use. Procedure performed by Jewels Malhotra APRN Attending: Dr. Caceres was not present for procedure. Kimberly Mondragon MD IMG IR ORDERABLE S * (ABNORMAL) Differential, Manual (10/23/2014 3:00 AM EDT) Neutrophil % Manual 62 % CERNER MILLENNIUM Band % 5 % CERNER MILLENNIUM Lymphocyte Manual 6 % CERNER MILLENNIUM Monocyte Manual 20 % CERN ER MILLENNIUM Eosinophil Manual 3 % CERNER MILLENNIUM Myelocyte Manual 1 % CER NER MILLENNIUM Promyelocyte Manual 2 % CERNER MILLENNIUM Blasts Manual 1 % CERNER MILLENNIUM Neutrophil Absolute (ANC) - Manual 2.3 1.5 - 6.3 x10(3)/mc L CERNER MILLENNIUM Band Abs 0.2 0.2 - 0.6 x10(3)/mc L CERNER MILLENNIUM Neutrophil Absolute (ANC) - Automated 2.53 1.50 - 6.30 x10(3)/mc L CERNER MILLENNIUM Lymph Absolute Manual 0.2(L) 1.0 - 3.6 x10(3)/mc L CERNER MILLENNIUM Monocyte Absolute Manual 0.8 0.2 - 1.0 x10(3)/mc L CERNER MILLENNIUM Eos Absolute Manual 0.1 0.0 - 0.5 x10(3)/mc L CERNER MILLENNIUM Myelo Absolute Manual 0.0 0.0 - 0.0 x10(3)/mc L CERNER MILLENNIUM Promyelo Absolute Manual 0.1(H) 0.0 - 0.0 x10(3)/mc L CERNER MILLENNIUM Blasts Absolute Manual 0.0 0.0 - 0.0 x10(3)/mc L CERNER MILLENNIUM Total Cells Ct 100 CERNE R MILLENNIUM Plat estimate Decreased CERNER MILLENNIUM RBC Morphology Abnormal CERNE R MILLENNIUM Ovalocytes 1-5 /HPF CERNER MILLENNIUM Toxic Granulation Present CERNER MILLENNIUM Dohle Bodies Present CERNER MILLENNIUM Blood specimen (specimen) 10/23/2014 3:00 AM EDT 10/23/2014 3:35 AM EDT Narrative Resulting Agency Comment Spec In Lab Sylvester Odom MD HEMATOLOGY ORDER AYO CERNER MILLENNIUM * (ABNORMAL) Hemogram (10/23/2014 3:00 AM EDT) White Blood Cell 3.8(L) 4.0 - 10.0 x10(3)/mc L CERNER MILLENNIUM Red Blood Cell 2.70(L) 3.93 - 5.22 x10(6)/mc L [facility] Hemoglobin 8.5(L) 11.2 - 15.7 gm/dL [facility] Hematocrit 24.1(L) 34.0 - 45.0 % CERNER MILLENNIUM Mean Cell Volume 89.3 79.0 - 94.0 fL CERNER MILLENNIUM Mean Cell Hemoglobin 31.5 26.6 - 32.2 pg CERNER MILLENNIUM Mean Cell Hemoglobin Concentration 35.3 32.0 - 36.5 gm/dL [facility] Platelet 28(L) 145 - 370 x10(3)/mc L CERNER MILLENNIUM RDW Standard Deviation 37.9 35.0 - 46.0 fL CERNER MILLENNIUM RDW coefficient of variation 11.7 10.9 - 14.4 % CERNER MILLENNIUM Mean Platelet Volume 9.3 9.0 - 12.0 fL [facility] MILLENNIUM Blood specimen (specimen) 10/23/2014 3:00 AM EDT 10/23/2014 3:35 AM EDT Narrative Resulting Agency Comment Spec In Lab Sylvester Odom MD HEMATOLOGY ORDER AYO [facility] * (ABNORMAL) Magnesium (10/23/2014 3:00 AM EDT) Magnesium 0.63(L) 0.69 - 1.07 mmol/L [facility] Blood specimen (specimen) 10/23/2014 3:00 AM EDT 10/23/2014 3:35 AM EDT Narrative Resulting Agency Comment Spec In Lab Sylvester Odom MD CHEMISTRY ORDERA BLES [facility] * (ABNORMAL) Basic Metabolic Panel (non-fasting) (10/23/2014 3:00 AM EDT) Glucose 85 65 - 199 mg/dL [facility] Comment:Diabetes: >=200 mg/d L plus symptoms Blood Urea Nitrogen 27(H) 8 - 18 mg/dL CERNER MILLENNIUM Creatinine 2.06(H) 0.70 - 1.20 mg/dL CERNER MILLENNIUM Comment: Please note that the pediatric reference intervals supplied above were not [place] [facility] Results from pediatric patients should be interpreted in conjunction to the patient's age, height and muscle mass. Sodium 141 135 - 145 mmol/L CERNER MILLENNIUM Potassium 3.5 3.5 - 5.0 mmol/L CERNER MILLENNIUM Comment: [...] 8.4(L) 8.5 - 10.5 mg/dL CERNER MILLENNIUM Est Glomerular Filtration Rate 24(L) >=60 CERNER MILLENNIUM Comment: This estimated GFR [...] the following links into your internet browser. [email or web address] Blood specimen (specimen) 10/23/2014 3:00 AM EDT 10/23/2014 3:35 AM EDT Narrative Resulting Agency Comment Spec In Lab Sylvester Odom MD CHEMISTRY ORDERA BLES CERNER MILLENNIUM * (ABNORMAL) CD34 Peripheral Blood (10/23/2014 3:00 AM EDT) CD34 PB ABS 62 /mcl CERNER MILLENNIUM Comment: CD34 Cells as Percent of CD45 Cells: 1.62%. This test was developed and it? s performance characteristics determined by the Clinical Flow Cytometry Laboratory at [facility].?? It has not been cleared or approved [...] to perform high complexity clinical laboratory testing.?? Corrected from 33 /mcl [NA] on 10/23/14 10:06 by Elie Gamez White Blood Cell 3.8(L) 4.0 - 10.0 x10(3)/mc L CERNER MILLENNIUM Lymphocyte Manual 6 % CE RNER MILLENNIUM Lymph Absolute Manual 0.2(L) 1.0 - 3.6 x10(3)/mc L CERNER MILLENNIUM Blood specimen (specimen) 10/23/2014 3:00 AM EDT 10/23/2014 3:35 AM EDT Narrative Resulting Agency Comment Spec In Lab Sylvester Odom MD HEMATOLOGY ORDER AYO CERNER MILLENNIUM * (ABNORMAL) Basic Metabolic Panel (non-fasting) (10/22/2014 10:55 AM EDT) [facility] Glucose 89 65 - 199 mg/dL CERNER MILLENNIUM Comment:Diabetes: >=200 mg/d L plus symptoms Blood Urea Nitrogen 37(H) 8 - 18 mg/dL CERNER MILLENNIUM Creatinine 2.69(H) 0.70 - 1.20 mg/dL CERNER MILLENNIUM Comment: [...] mg/dL CERNER MILLENNIUM Est Glomerular Filtration Rate 18(L) >=60 CERNER MILLENNIUM Comment: This estimated GFR [...] the following links into your internet browser. [email or web address] Blood specimen (specimen) 10/22/2014 10:55 AM EDT 10/22/2014 11:15 AM EDT Narrative Resulting Agency Comment Spec In Lab Sylvester Odom MD CHEMISTRY ORDERA BLES Performing Organization Address City/[facility]/ZIP Co de Phone Number CERNER MILLENNIUM * Scan, Peripheral Blood (10/22/2014 3:43 AM EDT) Plat estimate Decreased CERNER MILLENNIUM RBC Morphology Normal CERNE R MILLENNIUM Toxic Granulation Present CERNER MILLENNIUM Dohle Bodies Present CERNER MILLENNIUM Blood specimen (specimen) 10/22/2014 3:43 AM EDT 10/22/2014 3:53 AM EDT Narrative Resulting Agency Comment Spec In Lab Sylvester Odom MD HEMATOLOGY ORDER AYO CERNER MILLENNIUM * (ABNORMAL) Differential, Automated (10/22/2014 3:43 AM EDT) Neutrophil % 16.4 % CERNER MILLENNIUM Neutrophil Absolute 0.17(Crit ical) 1.50 - 6.30 x10(3)/mc L CERNER MILLENNIUM Lymph % 31.7 % CERNER MILLENNIUM Lymphocytes Abs 0.3(L) 1.0 - 3.6 x10(3)/mc L CERNER MILLENNIUM Monocyte % 41.3 % CERNER MILLENNIUM Monocyte Abs 0.4 0.2 - 1.0 x10(3)/mc L CERNER MILLENNIUM Eos % 7.7 % CERNER MILLENNIUM Eosinophils Abs 0.1 0.0 - 0.5 x10(3)/mc L CERNER MILLENNIUM Basophil % 1.0 % CERNER MILLENNIUM Baso Absolute 0.0 0.0 - 0.2 x10(3)/mc L CERNER MILLENNIUM Immature Gran % 1.90 % CERN ER MILLENNIUM Comment: Immature granulocytes(IG's)percentage and absolute count will include metamyelocytes, myelocytes, and promyelocytes. Blood smears from CBCs yielding IG's will be scanned manually for concordance. If this scan disagrees with the automated IG or if promyelocytes are noted, a manual differential will be performed. Immature Gran Absolute 0.02 0.00 - 0.05 x10(3)/mc L CERNER MILLENNIUM Blood specimen (specimen) 10/22/2014 3:43 AM EDT 10/22/2014 3:53 AM EDT Narrative Resulting Agency Comment Spec In Lab Sylvester Odom MD HEMATOLOGY ORDER AYO CERDANIA BUCHANANENNIUM * (ABNORMAL) Hemogram (10/22/2014 3:43 AM EDT) White Blood Cell 1.0(Criti jenaro) 4.0 - 10.0 x10(3)/mc L CERNER MILLENNIUM Red Blood Cell 2.91(L) 3.93 - 5.22 x10(6)/mc L CERNER MILLENNIUM Hemoglobin 9.1(L) 11.2 - 15.7 gm/dL CERNER MILLENNIUM Hematocrit 25.8(L) 34.0 - 45.0 % CERNER MILLENNIUM Mean Cell Volume 88.7 79.0 - 94.0 fL CERNER MILLENNIUM Mean Cell Hemoglobin 31.3 26.6 - 32.2 pg CERNER MILLENNIUM Mean Cell Hemoglobin Concentration 35.3 32.0 - 36.5 gm/dL CERNER MILLENNIUM Platelet 35(L) 145 - 370 x10(3)/mc L CERNER MILLENNIUM RDW Standard Deviation 38.0 35.0 - 46.0 fL CERNER MILLENNIUM RDW coefficient of variation 11.7 10.9 - 14.4 % CERNER MILLENNIUM Mean Platelet Volume 8.8(L) 9.0 - 12.0 fL CERNER MILLENNIUM Blood specimen (specimen) 10/22/2014 3:43 AM EDT 10/22/2014 3:53 AM EDT Narrative Resulting Agency Comment Spec In Lab Sylvester dOom MD HEMATOLOGY ORDER AYO Performing Organization Address [facility] Co de Phone Number [facility] * APTT (10/22/2014 3:43 AM EDT) Partial Thromboplastin Time 27 25 - 35 sec [facility] MILLENNIUM Comment: Recommended therapeutic PTT range for full dose unfractionated heparin is 80-114 seconds. Blood specimen (specimen) 10/22/2014 3:43 AM EDT 10/22/2014 3:53 AM EDT Narrative Resulting Agency Comment Spec In Lab Sylvester Odom MD HEMATOLOGY ORDER AYO Performing Organization Address [facility] Co de Phone Number [facility] * Prothrombin Time (10/22/2014 3:43 AM EDT) Prothrombin Time 13.6 12.0 - 15.0 sec [facility] MILLENNIUM Comment: Transfusion Committee Guidelines: INR less than 2.0, PTT less than OR equal to 43.5 seconds, or Fibrinogen greater than or equal to 100 mg/dl indicate adequate procoagulant activity for hemostasis in patients without underlying bleeding disorders. International Normalization Ratio 1.0 0.9 - 1.1 CERNER MILLENNIUM Blood specimen (specimen) 10/22/2014 3:43 AM EDT 10/22/2014 3:53 AM EDT Narrative Resulting Agency Comment Spec In Lab Sylvester Odom MD HEMATOLOGY ORDER AYO Performing Organization Address [facility] de Phone Number SELECT [facility] * (ABNORMAL) Hepatic Function Panel (10/22/2014 3:43 AM EDT) Protein, Total 5.6(L) 6.1 - 8.0 gm/dL CERNER MILLENNIUM Albumin 3.7 3.2 - 5.2 gm/dL CERNER MILLENNIUM Aspartate Aminotransferase 12 0 - 30 unit/L CERNER MILLENNIUM Alanine Aminotransferase 14 0 - 30 unit/L CERNER MILLENNIUM Alkaline Phosphatase 85 40 - 104 unit/L CERNER MILLENNIUM Bilirubin, Total 0.4 0.2 - 1.3 mg/dL CERNER MILLENNIUM Bilirubin, Direct 0.1 0.0 - 0.3 mg/dL CERNER MILLENNIUM Blood specimen (specimen) 10/22/2014 3:43 AM EDT 10/22/2014 3:53 AM EDT Narrative Resulting Agency Comment Spec In Lab Sylvester Odom MD CHEMISTRY ORDERA BLES Performing Organization Address [facility] de Phone Number [facility] * Transfuse 1 unit platelets, apheresis (10/22/2014 1:48 AM EDT) Avtar Garcia MD NURSING TREATMENT OR DERABLES - BLOOD ADMIN * Transfuse 1 unit platelets, apheresis (10/22/2014 1:48 AM EDT) Avtar Garcia MD NURSING TREATMENT OR DERABLES - BLOOD ADMIN * Sodium, urine, random (10/22/2014 12:40 AM EDT) Sodium, Urine 38 mmol/L CERNER MILLENNIUM Urine specimen (specimen) 10/22/2014 12:40 AM EDT 10/22/2014 12:52 AM EDT Narrative Resulting Agency Comment Spec In Lab Avtar Garcia MD URINE ORDERABLES [facility] * Creatinine, urine, random (10/22/2014 12:40 AM EDT) Creatinine, Urine 135 mg/dL CERNER MILLENNIUM Urine specimen (specimen) 10/22/2014 12:40 AM EDT 10/22/2014 12:52 AM EDT Narrative Resulting Agency Comment Spec In Lab Avtar Garcia MD URINE ORDERABLES [facility] * Urinalysis with microscopic (10/22/2014 12:40 AM EDT) Glucose, Urine Dipstick Negative Negative mg/dL [...] Urine Dipstick Clear Clear CERNER MILLENNIUM Specific Yoder Urine Automated 1.014 1.002 - 1.030 CERNER MILLENNIUM Color, Urine Dipstick Yellow Yellow CERNER MILLENNIUM RBC, Urine 2 0 - 4 /HPF CERNER MILLENNIUM WBC, Urine 3 0 - 5 /HPF CERNER MILLENNIUM Squamous Epithelial Cells, Urine 1 <=4 /HPF CERNER MILLENNIUM Urine specimen (specimen) 10/22/2014 12:40 AM EDT 10/22/2014 12:52 AM EDT Narrative Resulting Agency Comment Spec In Lab Avtar Garcia MD URINE ORDERABLES [facility] * Prepare Platelets, Apheresis (10/21/2014 11:55 PM EDT) Dispensed? Yes [facility] Blood specimen (specimen) 10/21/2014 11:55 PM EDT 10/21/2014 11:55 PM EDT Avtar Garcia MD BLOOD BANK PRODUCT O RDERABLES Performing Organization Address City/[facility]/ZIP Co de Phone Number [facility] * Antibody screen (10/21/2014 8:30 PM EDT) Pathologist [facility] [place] Ab Screen Interp Negative [facility] Expires at [id number] on: 10/24/2014 [facility] Blood specimen (specimen) 10/21/2014 8:30 PM EDT 10/21/2014 8:30 PM EDT Narrative Resulting Agency Comment Spec In Lab Avtar Garcia MD BLOOD BANK LAB ORDER AYO Performing Organization Address [facility] Co de Phone Number [facility] * ABO/Rh Typing (10/21/2014 8:30 PM EDT) Pathologist [facility] [place] ABORH Type B Pos [facility] Blood specimen (specimen) 10/21/2014 8:30 PM EDT 10/21/2014 8:30 PM EDT Narrative Resulting Agency Comment Spec In Lab Avtar Garcia MD BLOOD BANK LAB ORDER AYO Performing Organization Address City/[facility]/ZIP Co de Phone Number [facility] * (ABNORMAL) Uric acid (10/21/2014 8:21 PM EDT) Pathologist [facility] [place] Uric Acid 6.7(H) 2.5 - 6.5 mg/dL [facility] Blood specimen (specimen) Venous Draw / Unknown 10/21/2014 8:21 PM EDT 10/22/2014 2:37 AM EDT Narrative Resulting Agency Comment Spec In Lab Avtar Garcia MD CHEMISTRY ORDERABLES GIBRAN GEEIUM * Phosphorus (10/21/2014 8:21 PM EDT) Phosphorus 2.6 2.5 - 4.5 mg/dL CERNER GERARDIUM Blood specimen (specimen) Venous Draw / Unknown 10/21/2014 8:21 PM EDT 10/21/2014 8:50 PM EDT Narrative Resulting Agency Comment Spec In Lab Avtar Garcia MD CHEMISTRY ORDERABLES Performing Organization Address City/[facility] Co de Phone Number GIBRAN GEEIUM * (ABNORMAL) Magnesium (10/21/2014 8:21 PM EDT) Magnesium 0.65(L) 0.69 - 1.07 mmol/L GIBRAN GEEIUM Blood specimen (specimen) Venous Draw / Unknown 10/21/2014 8:21 PM EDT 10/21/2014 8:50 PM EDT Narrative Resulting Agency Comment Spec In Lab Avtar Garcia MD CHEMISTRY ORDERABLES Performing Organization Address [facility] de Phone Number GIBRAN GEEIUM * (ABNORMAL) Differential, Manual (10/21/2014 8:21 PM EDT) Neutrophil % Manual 14 % CERNER MILLENNIUM Band % 6 % CERNER MILLENNIUM Lymphocyte Manual 37 % CERNER MILLENNIUM Monocyte Manual 32 % CERN ER MILLENNIUM Eosinophil Manual 11 % CERNER MILLENNIUM Neutrophil Absolute (ANC) - Manual 0.1(L) 1.5 - 6.3 x10(3)/mc L CERNER MILLENNIUM Band Abs 0.0(L) 0.2 - 0.6 x10(3)/mc L CERNER MILLENNIUM Neutrophil Absolute (ANC) - Automated 0.15(Critical ) 1.50 - 6.30 x10(3)/mc L CERNER MILLENNIUM Comment: This result has been called to ANGEL APODACA by ROBIN DUARTE on 10.21.14 at 21:50, and has been read back (). Lymph Absolute Manual 0.3(L) 1.0 - 3.6 x10(3)/mc L CERNER MILLENNIUM Monocyte Absolute Manual 0.2 0.2 - 1.0 x10(3)/mc L CERNER MILLENNIUM Eos Absolute Manual 0.1 0.0 - 0.5 x10(3)/mc L CERNER MILLENNIUM Total Cells Ct 100 CERNE R MILLENNIUM Plat estimate Decreased CERNER MILLENNIUM RBC Morphology Normal CERNE R MILLENNIUM Toxic Granulation Present CERNER MILLENNIUM Dohle Bodies Present CERNER MILLENNIUM Blood specimen (specimen) 10/21/2014 8:21 PM EDT 10/21/2014 8:45 PM EDT Narrative Resulting Agency Comment Spec In Lab Avtar Garcia MD HEMATOLOGY ORDERABLE S Performing Organization Address City/[facility]/ZIP Co de Phone Number GIBRAN BUCHANANENNIUM * Gold Tube HOLD (10/21/2014 8:21 PM EDT) Gold Hold Sample in lab. CERDANIA BUCHANANENNIUM Blood specimen (specimen) Venous Draw / Unknown 10/21/2014 8:21 PM EDT 10/21/2014 8:45 PM EDT Avtar Garcia MD CHEMISTRY ORDERABLES GIBRAN GEEIUM * Blue Tube HOLD (10/21/2014 8:21 PM EDT) Blue Hold Sample in lab. CERDANIA BUCHANANENNIUM Blood specimen (specimen) Venous Draw / Unknown 10/21/2014 8:21 PM EDT 10/21/2014 8:46 PM EDT Avtar Garcia MD HEMATOLOGY ORDERABLE S GIBRAN GEEIUM * (ABNORMAL) Hemogram (10/21/2014 8:21 PM EDT) White Blood Cell 0.7(Criti jenaro) 4.0 - 10.0 x10(3)/mc L CERNER MILLENNIUM Comment: This result has been called to ANGEL APODACA by ROBIN DUARTE on 10.21.14 at 21:32, and has been read back (). Red Blood Cell 3.15(L) 3.93 - 5.22 x10(6)/mc L CERNER MILLENNIUM Hemoglobin 10.0(L) 11.2 - 15.7 gm/dL CERNER MILLENNIUM Hematocrit 27.9(L) 34.0 - 45.0 % CERNER MILLENNIUM Mean Cell Volume 88.6 79.0 - 94.0 fL CERNER MILLENNIUM Mean Cell Hemoglobin 31.7 26.6 - 32.2 pg CERNER MILLENNIUM Mean Cell Hemoglobin Concentration 35.8 32.0 - 36.5 gm/dL CERNER MILLENNIUM Platelet 5(Critica l) 145 - 370 x10(3)/mc L CERNER MILLENNIUM Comment: This result has been called to ANGEL APODACA by ROBIN DUARTE on 10.21.14 at 21:32, and has been read back (). RDW Standard Deviation 38.2 35.0 - 46.0 fL CERNER MILLENNIUM RDW coefficient of variation 11.8 10.9 - 14.4 % CERNER MILLENNIUM Mean Platelet Volume 14.7(H) 9.0 - 12.0 fL CERNER MILLENNIUM Blood specimen (specimen) 10/21/2014 8:21 PM EDT 10/21/2014 8:45 PM EDT Narrative Resulting Agency Comment Spec In Lab Avtar Garcia MD HEMATOLOGY ORDERABLE S [facility] * (ABNORMAL) Basic Metabolic Panel (non-fasting) (10/21/2014 8:21 PM EDT) Glucose 105 65 - 199 mg/dL CERNER MILLENNIUM Comment:Diabetes: >=200 mg/d L plus symptoms Blood Urea Nitrogen 45(H) 8 - 18 mg/dL CERNER MILLENNIUM Creatinine 2.91(H) 0.70 - 1.20 mg/dL CERNER MILLENNIUM Comment: [...] Laboratory if there are any questions. Chloride 94(L) 98 - 107 mmol/L CERNER MILLENNIUM Carbon Dioxide 30 22 - 31 mmol/L CERNER MILLENNIUM Anion Gap 15 5 - 15 mmol/L CERNER MILLENNIUM Calcium 9.3 8.5 - 10.5 mg/dL CERNER MILLENNIUM Est Glomerular Filtration Rate 16(L) >=60 CERNER MILLENNIUM Comment: This estimated GFR [...] the following links into your internet browser. [email or web address] Blood specimen (specimen) 10/21/2014 8:21 PM EDT 10/21/2014 8:45 PM EDT Narrative Resulting Agency Comment Spec In Lab Avtar Garcia MD CHEMISTRY ORDERABLES CERDANIA GEEIUM * (ABNORMAL) Magnesium (10/21/2014 11:30 AM EDT) White Blood Cell 0.68(EXTER NAL/ABN) Hemoglobin 10.5(EXTER NAL/ABN) 12.0 - 16.0 Hematocrit 29.6(EXTER NAL/ABN) 36.0 - 46.0 Platelet 6(EXTERNAL /ABN) Blood specimen (specimen) 10/21/2014 11:30 AM EDT Sylvester Odom MD CHEMISTRY ORDERA BLES documented in this encounter Visit Diagnoses Diagnosis DLBCL (diffuse large B cell lymphoma) Other malignant lymphomas, unspecified site, extranodal and solid organ sites documented in this encounter Administered Medications Inactive Administered Medications - up to 3 most recent administrations Medication Order MAR Action Action Date Dose Rate Site acetaminophen (TYLENOL) tablet 650 mg 650 mg, Oral, ONCE, 1 dose, On Tue10/23/14 at 1915, Maximum dose of acetaminophen is 4000 mg from all sources in 24 hours., Routine Given 10/23/2014 6:50 PM EDT 650 mg acetaminophen (TYLENOL) tablet 650 mg 650 mg, Oral, ONCE, 1 dose, On Tue10/24/14 at 1030, Maximum dose of acetaminophen is 4000 mg from all sources in 24 hours., Routine Given 10/24/2014 10:34 AM EDT 650 mg acetaminophen (TYLENOL) tablet 650 mg 650 mg, Oral, ONCE, 1 dose, On Tue10/25/14 at 0900, Maximum dose of acetaminophen is 4000 mg from all sources in 24 hours., Routine Given 10/25/2014 8:48 AM EDT 650 mg acyclovir (ZOVIRAX) tablet 400 mg 400 mg, Oral, 2 TIMES DAILY, First dose on Tue10/22/14 at 0900, Until Discontinued, Routine, Indication for (Active or Suspected): Prophylaxis Given 10/25/2014 8:50 AM EDT 400 mg Given 10/24/2014 8:55 PM EDT 400 mg Given 10/24/2014 8:50 AM EDT 400 mg calcium gluconate 3 g in sodium chloride 0.9% 100 mL (Blood Donor Program Use Only) 3 g, Intravenous, 3 TIMES DAILY PRN, 3 doses, Starting on Tue10/23/14 at 1430, Until Tue10/23/14 at 2359, during HPCA collection Given 10/23/2014 4:53 PM EDT 3 g 37 mL/hr Given 10/23/2014 2:00 PM EDT 3 g 37 mL/hr docusate sodium (COLACE) capsule 100 mg 100 mg, Oral, 2 TIMES DAILY, First dose on Tue10/22/14 at 0900, Until Discontinued, Routine Given 10/24/2014 8:55 PM EDT 100 mg Given 10/24/2014 8:51 AM EDT 100 mg escitalopram oxalate (LEXAPRO) tablet 10 mg 10 mg, Oral, DAILY, First dose on Tue10/22/14 at 0900, Until Discontinued, Routine Given 10/25/2014 8:50 AM EDT 10 mg Given 10/24/2014 8:50 AM EDT 10 mg Given 10/23/2014 8:35 AM EDT 10 mg esomeprazole (NexIUM) capsule 40 mg 40 mg, Oral, DAILY, First dose on Tue10/23/14 at 1200, Until Discontinued, Routine Given 10/25/2014 8:49 AM EDT 40 mg Given 10/24/2014 8:50 AM EDT 40 mg Given 10/23/2014 8:23 PM EDT 40 mg fentaNYL 50 mcg/mL multi-dose injection 25-50 mcg, Intravenous, EVERY 5 MIN PRN, Starting on Tue10/23/14 at 1109, Until Tue10/25/14 at 1743, Pain, per unit protocol, For use in Interventional Radiology (IR) only for procedural sedation with direct provider supervision and verbal order., Angio/IR (Intra-Procedure), Routine Given 10/23/2014 12:37 PM EDT 50 mcg Given 10/23/2014 12:24 PM EDT 50 mcg Given 10/23/2014 12:06 PM EDT 50 mcg filgrastim (NEUPOGEN) injection 780 mcg 780 mcg, Subcutaneous, DAILY, First dose (after last modification) on Tue10/22/14 at 0900, Until Discontinued, Routine Given 10/23/2014 8:38 AM EDT 780 mcg Given 10/22/2014 10:00 AM EDT 780 mcg fluconazole (DIFLUCAN) tablet 200 mg 200 mg, Oral, DAILY, First dose on Tue10/22/14 at 0900, Until Discontinued, Routine, Indication for (Active or Suspected): Prophylaxis Given 10/25/2014 8:50 AM EDT 200 mg Given 10/24/2014 8:50 AM EDT 200 mg Given 10/23/2014 8:23 PM EDT 200 mg levofloxacin (LEVAQUIN) tablet 750 mg 750 mg, Oral, DAILY, First dose on Tue10/22/14 at 0900, Until Discontinued, Routine, Indication for (Active or Suspected): Prophylaxis, Restricted Antibiotic: Please indicate the most appropriate choice: Pre-approved Indication (State the indication in Comments field) / neutro proph Given 10/25/2014 8:49 AM EDT 750 mg Given 10/24/2014 8:51 AM EDT 750 mg Given 10/23/2014 8:24 PM EDT 750 mg loratadine (CLARITIN) tablet 10 mg 10 mg, Oral, DAILY, First dose on Tue10/22/14 at 2000, Until Discontinued, With Neupogen, Routine Given 10/24/2014 8:50 AM EDT 10 mg Given 10/23/2014 8:35 AM EDT 10 mg Given 10/22/2014 8:37 PM EDT 10 mg LORazepam (ATIVAN) tablet 0.5 mg 0.5 mg, Oral, EVERY 6 HOURS PRN, Starting on Tue10/22/14 at 0234, Until Tue10/22/14 at 1806, Anxiety, Routine Given 10/22/2014 10:02 AM EDT 0.5 mg LORazepam (ATIVAN) tablet 0.5 mg 0.5 mg, Oral, EVERY MORNING, First dose on Tue10/23/14 at 0700, Until Discontinued, Routine Given 10/24/2014 7:28 AM EDT 0.5 mg Given 10/23/2014 8:35 AM EDT 0.5 mg LORazepam (ATIVAN) tablet 0.5 mg 0.5 mg, Oral, 2 TIMES DAILY, First dose (after last modification) on Cece 10/24/14 at 1500, Until Discontinued, Per MD dosing should be 0.5 mg in am and afternoon and 1 mg in the evening., Routine Given 10/25/2014 2:28 PM EDT 0.5 mg Given 10/25/2014 7:00 AM EDT 0.5 mg Given 10/24/2014 2:42 PM EDT 0.5 mg LORazepam (ATIVAN) tablet 1 mg 1 mg, Oral, EVERY EVENING, First dose on Tue10/22/14 at 1830, Until Discontinued, Routine Given 10/23/2014 8:25 PM EDT 1 mg Given 10/22/2014 8:37 PM EDT 1 mg LORazepam (ATIVAN) tablet 1 mg 1 mg, Oral, NIGHTLY, First dose (after last modification) on Tue10/24/14 at 2100, Until Discontinued, Per dosing should be 0.5 mg in am and afternoon and 1 mg in the evening., Routine Given 10/24/2014 8:56 PM EDT 1 mg magnesium oxide (MAG-OX) tablet 400 mg 400 mg, Oral, 2 TIMES DAILY, First dose on Tue10/23/14 at 1200, Until Discontinued, Routine Given 10/25/2014 8:51 AM EDT 400 mg Given 10/24/2014 8:55 PM EDT 400 mg Given 10/24/2014 8:50 AM EDT 400 mg magnesium sulfate 2 g in sterile water 50 mL 2 g, Intravenous, ONCE, 1 dose, On Tue10/22/14 at 0315, Administer over 120 Minutes Given 10/22/2014 3:39 AM EDT 2 g 25 mL/hr magnesium sulfate 2 g in sterile water 50 mL 2 g, Intravenous, ONCE, 1 dose, On Tue10/24/14 at 0645, Administer over 120 Minutes Given 10/24/2014 6:48 AM EDT 2 g 25 mL/hr magnesium sulfate 2 g in sterile water 50 mL 2 g, Intravenous, EVERY HOUR, 2 doses, First dose on Tue10/24/14 at 1100, Last dose on Tue10/24/14 at 1200, Administer over 120 Minutes Given 10/24/2014 12:13 PM EDT 2 g 25 mL/hr magnesium sulfate 2 g in sterile water 50 mL 2 g, Intravenous, ONCE, 1 dose, On Tue10/24/14 at 1430, Administer over 120 Minutes Given 10/24/2014 2:38 PM EDT 2 g 25 mL/hr midazolam (PF) (VERSED) 1 mg/mL multi-dose injection 0.5-1 mg 0.5-1 mg, Intravenous, EVERY 5 MIN PRN, Starting on Tue10/23/14 at 1109, Until Tue10/25/14 at 1743, Anxiety, per unit protocol, For use in Interventional Radiology (IR) only for procedural sedation with direct provider supervision and verbal order., Angio/IR (Intra-Procedure), Routine Given 10/23/2014 12:24 PM EDT 1 mg Given 10/23/2014 12:06 PM EDT 1 mg ondansetron (ZOFRAN) injection 4 mg 4 mg, Intravenous, EVERY 8 HOURS PRN, Starting on Tue10/22/14 at 0234, Until Cece 10/24/14 at 1120, Nausea, May repeat times one in 30 minutes if ineffective. If multiple antiemetics are ordered, give ondansetron first. Given 10/23/2014 8:00 PM EDT 2 mg Given 10/23/2014 3:45 PM EDT 2 mg Given 10/23/2014 8:11 AM EDT 4 mg ondansetron (ZOFRAN) tablet 4 mg 4 mg, Oral, EVERY 8 HOURS PRN, Starting on Tue10/22/14 at 0234, Until Cece 10/24/14 at 1120, Nausea, Vomiting, If multiple antiemetics are ordered, use ondansetron first. PO Preferred. If patient unable to take PO, may give IV if ordered. May repeat times one in 45 minutes if ineffective. If unable to take PO, may give IV., Routine Given 10/24/2014 7:28 AM EDT 4 mg ondansetron (ZOFRAN) tablet 4 mg 4 mg, Oral, EVERY 8 HOURS SCHEDULED, First dose (after last modification) on Cece 10/24/14 at 1400, Until Discontinued, If multiple antiemetics are ordered, use ondansetron first. PO Preferred. If patient unable to take PO, may give IV if ordered. May repeat times one in 45 minutes if ineffective. If unable to take PO, may give IV., Routine Given 10/25/2014 2:28 PM EDT 4 m g Given 10/25/2014 7:00 AM EDT 4 mg Given 10/24/2014 9:01 PM EDT 4 mg potassium chloride (K-DUR/KLOR-CON) extended release tablet 40 mEq 40 mEq, Oral, ONCE, 1 dose, On Cece 10/24/14 at 0645, 20 mEq tablet may be dissolved in water for administration, Routine Given 10/24/2014 8:55 AM EDT 40 mEq potassium chloride (K-DUR/KLOR-CON) extended release tablet 40 mEq 40 mEq, Oral, ONCE, 1 dose, On Cece 10/24/14 at 0830, 20 mEq tablet may be dissolved in water for administration, Routine Given 10/24/2014 10:05 AM EDT 40 mEq prochlorperazine (COMPAZINE) injection 10 mg 10 mg, Intravenous, EVERY 6 HOURS PRN, Starting on Tue10/23/14 at 2220, Until Tue10/24/14 at 1122, Nausea, Nausea/Vomiting, Routine Given 10/23/2014 10:55 PM EDT 10 mg senna (SENOKOT) tablet 8.6 mg 8.6 mg, Oral, DAILY, First dose on Tue10/22/14 at 0900, Until Discontinued, Routine Given 10/24/2014 8:51 AM E DT 8.6 mg sodium chloride 0.9 % flush 5 mL 5 mL, Intravenous, 2 TIMES DAILY, First dose on Tue10/22/14 at 0900, Until Discontinued, Routine Given 10/25/2014 8:44 AM EDT 5 mLs Given 10/24/2014 8:52 PM EDT 5 mLs Given 10/23/2014 8:25 PM EDT 10 mLs sodium chloride 0.9% infusion 75 mL/hr, Intravenous, CONTINUOUS, Starting on Tue10/22/14 at 0300, Until Tue10/22/14 at 1027 New Bag 10/22/2014 2:54 AM EDT 75 mL/hr 75 mL/hr sodium chloride 0.9% infusion 125 mL/hr, Intravenous, CONTINUOUS, Starting on Tue10/22/14 at 1045, Until Tue10/23/14 at 1644 Rate/Dose Change 10/23/2014 9:17 AM EDT 125 mL/hr 125 mL/hr New Bag 10/23/2014 2:51 AM EDT 150 mL/hr 150 mL/hr New Bag 10/22/2014 8:42 PM EDT 150 mL/hr 150 mL/hr sodium chloride 0.9% infusion 1,000 mL, at 100 mL/hr, Intravenous, CONTINUOUS, Starting on Tue10/23/14 at 1130, Until Tue10/24/14 at 1010, Day of Surgery (Day of Procedure) New Bag 10/23/2014 11:30 AM EDT 1,000 mLs 100 mL/hr sodium chloride 0.9% infusion 1,000 mL, at 100 mL/hr, Intravenous, CONTINUOUS, Starting on Tue10/24/14 at 1030, Until Cece 9/10/15 at 1643, Day of Surgery (Day of Procedure) Continued Bag 10/24/2014 10:30 AM EDT 1,000 mLs 100 mL/hr documented in this encounter Active and Recently Administered Medications Times are shown in EDT. Scheduled Medication Order 10/23/2014 10/24/2014 10/25/2014 acetaminophen (TYLENOL) tablet 650 mg (COMPLETED) 650 mg, Oral, ONCE, 1 dose, On Tue10/23/14 at 1915, Maximum dose of acetaminophen is 4000 mg from all sources in 24 hours., Routine 1850 (Given - Provider: Ria Rossi RN - Comment: pt reports i've had a ARVIZU for 2 days) acetaminophen (TYLENOL) tablet 650 mg (COMPLETED) 650 mg, Oral, ONCE, 1 dose, On Tue10/24/14 at 1030, Maximum dose of acetaminophen is 4000 mg from all sources in 24 hours., Routine 1034 (Given - Provider: Jaye Swan RN) acetaminophen (TYLENOL) tablet 650 mg (COMPLETED) 650 mg, Oral, ONCE, 1 dose, On Tue10/25/14 at 0900, Maximum dose of acetaminophen is 4000 mg from all sources in 24 hours., Routine 0848 (Given - Provider: Jaye Swan RN) acyclovir (ZOVIRAX) tablet 400 mg (CANCELED) 400 mg, Oral, 2 TIMES DAILY, First dose on Tue10/22/14 at 0900, Until Discontinued, Routine, Indication for (Active or Suspected): Prophylaxis 0837 (Given - Provider: Marilu Almazan RN)2023 (Given - Provider: Pamela Pepe RN) 0850 (Given - Provider: Lizzette De La Cruz RN)2054 (Given - Provider: Dali Singh RN) 0850 (Given - Provider: Jaye Swan RN) docusate sodium (COLACE) capsule 100 mg (CANCELED) 100 mg, Oral, 2 TIMES DAILY, First dose on Tue10/22/14 at 0900, Until Discontinued, Routine 0900 (Not Given - Provider: Marilu Almazan RN - Reason: Patient/family refused)2100 (Not Given - Provider: Pamlea Pepe RN - Reason: Patient/family refused) 0851 (Given - Provider: Lizzette De La Cruz RN)2054 (Given - Provider: Dali Singh RN) 0849 (Not Given - Provider: Jaye Swan RN - Reason: Patient/family refused) escitalopram oxalate (LEXAPRO) tablet 10 mg (CANCELED) 10 mg, Oral, DAILY, First dose on Tue10/22/14 at 0900, Until Discontinued, Routine 0835 (Given - Provider: Marilu Almazan RN) 0850 (Given - Provider: Lizzette De La Cruz RN) 0850 (Given - Provider: Jaye Swan RN) esomeprazole (NexIUM) capsule 40 mg (CANCELED) 40 mg, Oral, DAILY, First dose on Tue10/23/14 at 1200, Until Discontinued, Routine 2022 (Given - Provider: Pamela Pepe RN) 0850 (Given - Provider: Lizzette De La Cruz RN) 0849 (Given - Provider: Jaye Swan RN) filgrastim (NEUPOGEN) injection 780 mcg (CANCELED) 780 mcg, Subcutaneous, DAILY, First dose (after last modification) on Tue10/22/14 at 0900, Until Discontinued, Routine 0838 (Given - Provider: Marilu Almazan RN) 0900 (Not Given - Provider: Jaye Swan RN - Reason: Order parameters not met) 0900 (Not Given - Provider: Jaye Swan RN - Reason: Order parameters not met - Comment: ANC [phone]) fluconazole (DIFLUCAN) tablet 200 mg (CANCELED) 200 mg, Oral, DAILY, First dose on Tue10/22/14 at 0900, Until Discontinued, Routine, Indication for (Active or Suspected): Prophylaxis 2022 (Given - Provider: Pamela Pepe RN) 0850 (Given - Provider: Lizzette De La Cruz, LINDA) 0850 (Given - Provider: Jaye Swan RN) levofloxacin (LEVAQUIN) tablet 750 mg (CANCELED) 750 mg, Oral, DAILY, First dose on Tue10/22/14 at 0900, Until Discontinued, Routine, Indication for (Active or Suspected): Prophylaxis, Restricted Antibiotic: Please indicate the most appropriate choice: Pre-approved Indication (State the indication in Comments field) / neutro proph 2023 (Given - Provider: Pamela Pepe RN) 0851 (Given - Provider: Lizzette De La Cruz, RN) 0849 (Given - Provider: Jaye Swan RN) loratadine (CLARITIN) tablet 10 mg (CANCELED) 10 mg, Oral, DAILY, First dose on Tue10/22/14 at 2000, Until Discontinued, With Neupogen, Routine 0835 (Given - Provider: Marilu Almazan RN) 0850 (Given - Provider: Lizzette De La Cruz, LINDA) 0850 (Not Given - Provider: Jaye Swan RN - Reason: Patient/family refused) LORazepam (ATIVAN) tablet 0.5 mg (CANCELED) 0.5 mg, Oral, EVERY MORNING, First dose on Tue10/23/14 at 0700, Until Discontinued, Routine 0835 (Given - Provider: Marilu Almazan RN) 0728 (Given - Provider: Pamela Pepe RN) LORazepam (ATIVAN) tablet 0.5 mg (CANCELED)(Linked Group 1) 0.5 mg, Oral, 2 TIMES DAILY, First dose (after last modification) on Tue10/24/14 at 1500, Until Discontinued, Per MD dosing should be 0.5 mg in am and afternoon and 1 mg in the evening., Routine 144 (Given - Provider: Jaye Swan RN) 0700 (Given - Provider: Dali Singh, LINDA)1428 (Given - Provider: Jaye Swan RN) LORazepam (ATIVAN) tablet 1 mg (CANCELED) 1 mg, Oral, EVERY EVENING, First dose on Tue10/22/14 at 1830, Until Discontinued, Routine 2024 (Given - Provider: Pamela Pepe RN) LORazepam (ATIVAN) tablet 1 mg (CANCELED)(Linked Group 1) 1 mg, Oral, NIGHTLY, First dose (after last modification) on Tue10/24/14 at 2100, Until Discontinued, Per MD dosing should be 0.5 mg in am and afternoon and 1 mg in the evening., Routine 2055 (Given - Provider: Dali Singh, LINDA) magnesium oxide (MAG-OX) tablet 400 mg (CANCELED) 400 mg, Oral, 2 TIMES DAILY, First dose on Tue10/23/14 at 1200, Until Discontinued, Routine 1200 (Hold - Provider: Marilu Almazan RN - Reason: See comment - Comment: Pt at procedure)2023 (Given - Provider: Pamela Pepe RN) 0850 (Given - Provider: Lizzette De La Cruz, LINDA)2054 (Given - Provider: Dali Singh, RN) 0851 (Given - Provider: Jaye Swan RN) magnesium sulfate 2 g in sterile water 50 mL (COMPLETED) 2 g, Intravenous, ONCE, 1 dose, On Cece 10/24/14 at 0645, Administer over 120 Minutes 0648 (Given - Provider: Pamela Pepe RN) magnesium sulfate 2 g in sterile water 50 mL (CANCELED) 2 g, Intravenous, EVERY HOUR, 2 doses, First dose on Cece 10/24/14 at 1100, Last dose on Cece 10/24/14 at 1200, Administer over 120 Minutes 1200 (Not Given - Provider: Jaye Swan RN - Reason: See comment - Comment: see alternate dose given)1213 (Given - Provider: Jaye Swan RN) magnesium sulfate 2 g in sterile water 50 mL (COMPLETED) 2 g, Intravenous, ONCE, 1 dose, On Cece 10/24/14 at 1430, Administer over 120 Minutes 1438 (Given - Provider: Jaye Swan, LINDA) ondansetron (ZOFRAN) tablet 4 mg (CANCELED) 4 mg, Oral, EVERY 8 HOURS SCHEDULED, First dose (after last modification) on Cece 10/24/14 at 1400, Until Discontinued, If multiple antiemetics are ordered, use ondansetron first. PO Preferred. If patient unable to take PO, may give IV if ordered. May repeat times one in 45 minutes if ineffective. If unable to take PO, may give IV., Routine 1442 (Given - Provider: Jaye Swan RN)2101 (Given - Provider: Dali Singh, LINDA) 0700 (Given - Provider: Dali Singh, LINDA)1428 (Given - Provider: Jaye Swan RN) potassium chloride (K-DUR/KLOR-CON) extended release tablet 40 mEq (COMPLETED) 40 mEq, Oral, ONCE, 1 dose, On Cece 10/24/14 at 0645, 20 mEq tablet may be dissolved in water for administration, Routine 0855 (Given - Provider: Lizzette De La Cruz, LINDA) potassium chloride (K-DUR/KLOR-CON) extended release tablet 40 mEq (COMPLETED) 40 mEq, Oral, ONCE, 1 dose, On Tue10/24/14 at 0830, 20 mEq tablet may be dissolved in water for administration, Routine 1005 (Given - Provider: Jaye Swan, RN) senna (SENOKOT) tablet 8.6 mg (CANCELED) 8.6 mg, Oral, DAILY, First dose on Tue10/22/14 at 0900, Until Discontinued, Routine 0900 (Not Given - Provider: Marilu Almazan RN - Reason: Patient/family refused) 0851 (Given - Provider: Lizzette De La Cruz RN) 0848 (Not Given - Provider: Jaye Swan RN - Reason: Patient/family refused) sodium chloride 0.9 % flush 5 mL (CANCELED) 5 mL, Intravenous, 2 TIMES DAILY, First dose on Tue10/22/14 at 0900, Until Discontinued, Routine 0837 (Given - Provider: Marilu Almazan RN)2024 (Given - Provider: Pamela Pepe RN) 0856 (Not Given - Provider: Lizzette De La Cruz RN - Reason: See comment)2051 (Given - Provider: Dali Singh RN) 0844 (Given - Provider: Jaye Swan, LINDA) Continuous Medication Order 10/23/2014 10/24/2014 10/25/2014 sodium chloride 0.9% infusion () 125 mL/hr, Intravenous, CONTINUOUS, Starting on Tue10/22/14 at 1045, Until Tue10/23/14 at 1644 0251 (New Bag - Provider: Obi Weldon, LINDA)0917 (Rate/Dose Change - Provider: Marilu Almazan RN) sodium chloride 0.9% infusion (CANCELED) 1,000 mL, at 100 mL/hr, Intravenous, CONTINUOUS, Starting on Tue10/23/14 at 1130, Until Tue10/24/14 at 1010, Day of Surgery (Day of Procedure) 1130 (New Bag - Provider: Nilson Felix, LINDA) sodium chloride 0.9% infusion (CANCELED) 1,000 mL, at 100 mL/hr, Intravenous, CONTINUOUS, Starting on Cece 10/24/14 at 1030, Until Cece 10/24/14 at 1643, Day of Surgery (Day of Procedure) 1030 (Continued Bag - Provider: Jaye Swan, RN)1650 (Stopped - Provider: Jaye Swan, RN) PRN Medication Order 10/23/2014 10/24/2014 10/25/2014 calcium gluconate 3 g in sodium chloride 0.9% 100 mL (Blood Donor Program Use Only) () 3 g, Intravenous, 3 TIMES DAILY PRN, 3 doses, Starting on Tue10/23/14 at 1430, Until Tue10/23/14 at 2359, during HPCA collection 1400 (Given - Provider: Ria Rossi RN - Comment: apheresis only)1653 (Given - Provider: Ria Rossi RN - Comment: apheresis only) fentaNYL 50 mcg/mL multi-dose injection (CANCELED) 25-50 mcg, Intravenous, EVERY 5 MIN PRN, Starting on Tue10/23/14 at 1109, Until Tue10/25/14 at 1743, Pain, per unit protocol, For use in Interventional Radiology (IR) only for procedural sedation with direct provider supervision and verbal order., Angio/IR (Intra-Procedure), Routine 1206 (Given - Provider: Yuliet Boyle RN)1224 (Given - Provider: Yuliet Boyle, RN)1237 (Given - Provider: Yuliet Boyle, RN) midazolam (PF) (VERSED) 1 mg/mL multi-dose injection 0.5-1 mg (CANCELED) 0.5-1 mg, Intravenous, EVERY 5 MIN PRN, Starting on Tue10/23/14 at 1109, Until Tue10/25/14 at 1743, Anxiety, per unit protocol, For use in Interventional Radiology (IR) only for procedural sedation with direct provider supervision and verbal order., Angio/IR (Intra-Procedure), Routine 1206 (Given - Provider: Yuliet Boyle RN)1224 (Given - Provider: Yuliet Boyle, RN) ondansetron (ZOFRAN) injection 4 mg (CANCELED)(Linked Group 2) 4 mg, Intravenous, EVERY 8 HOURS PRN, Starting on Tue10/22/14 at 0234, Until Tue10/24/14 at 1120, Nausea, May repeat times one in 30 minutes if ineffective. If multiple antiemetics are ordered, give ondansetron first. 0811 (Given - Provider: Marilu Tabor RN)1545 (Given - Provider: Ria Rossi, LINDA)1999 (Given - Provider: Ria Rossi RN) 727 (See Alternative - Provider: Pamela Strickland I, LINDA) ondansetron (ZOFRAN) tablet 4 mg (CANCELED)(Linked Group 2) 4 mg, Oral, EVERY 8 HOURS PRN, Starting on Tue10/22/14 at 0234, Until Tue10/24/14 at 1120, Nausea, Vomiting, If multiple antiemetics are ordered, use ondansetron first. PO Preferred. If patient unable to take PO, may give IV if ordered. May repeat times one in 45 minutes if ineffective. If unable to take PO, may give IV., Routine 0811 (See Alternative - Provider: Marilu Tabor RN)154 (See Alternative - Provider: Ria Rossi RN)1999 (See Alternative - Provider: Ria Rossi RN) 07 (Given - Provider: Pamela Strickland I, LINDA) prochlorperazine (COMPAZINE) injection 10 mg (CANCELED)(Linked Group 3) 10 mg, Intravenous, EVERY 6 HOURS PRN, Starting on Tue10/23/14 at 2220, Until Tue10/24/14 at 1122, Nausea, Nausea/Vomiting, Routine 2255 (Given - Provider: Pamela Strickland I, LINDA) prochlorperazine (COMPAZINE) tablet 10 mg 10 mg, Oral, EVERY 6 HOURS PRN, Starting on Tue10/24/14 at 1200, Until Tue10/25/14 at 1743, Nausea, If unable to take PO, may give IV, Routine Linked Groups Order Group 1: LORazepam (ATIVAN) tablet 0.5 mg (CANCELED)Jump to med 0.5 mg, Oral, 2 TIMES DAILY, First dose (after last modification) on Tue10/24/14 at 1500, Until Discontinued, Per MD dosing should be 0.5 mg in am and afternoon and 1 mg in the evening., Routine And LORazepam (ATIVAN) tablet 1 mg (CANCELED)Jump to med 1 mg, Oral, NIGHTLY, First dose (after last modification) on Tue10/24/14 at 2100, Until Discontinued, Per MD dosing should be 0.5 mg in am and afternoon and 1 mg in the evening., Routine Group 2: ondansetron (ZOFRAN) tablet 4 mg (CANCELED)Jump to med 4 mg, Oral, EVERY 8 HOURS PRN, Starting on Tue10/22/14 at 0234, Until Tue10/24/14 at 1120, Nausea, Vomiting, If multiple antiemetics are ordered, use ondansetron first. PO Preferred. If patient unable to take PO, may give IV if ordered. May repeat times one in 45 minutes if ineffective. If unable to take PO, may give IV., Routine Or ondansetron (ZOFRAN) injection 4 mg (CANCELED)Jump to med 4 mg, Intravenous, EVERY 8 HOURS PRN, Starting on Tue10/22/14 at 0234, Until Tue10/24/14 at 1120, Nausea, May repeat times one in 30 minutes if ineffective. If multiple antiemetics are ordered, give ondansetron first. Group 3: prochlorperazine (COMPAZINE) tablet 10 mg (CANCELED) 10 mg, Oral, EVERY 6 HOURS PRN, Starting on Tue10/23/14 at 2220, Until Tue10/24/14 at 1122, Nausea, Nausea/Vomiting, If unable to take PO, may give IV, Routine Or prochlorperazine (COMPAZINE) injection 10 mg (CANCELED)Jump to med 10 mg, Intravenous, EVERY 6 HOURS PRN, Starting on Tue10/23/14 at 2220, Until Tue10/24/14 at 1122, Nausea, Nausea/Vomiting, Routine documented in this encounter Care Teams [employer] Relationship Specialty Start Date End Date Maine Dunn PA PCP - General 04/08/14 02/13/15 documented as of this encounter
--- OUTSIDE RECORDS SUMMARY | 2023-10-28 00:47 | XMS_ITS | Encounter Summary ---
Author Organization [facility] Address [facility] [place] [address] Care Team Providers Care Family Service Worker Name Role Phone Maine Dunn Primary Care Provider [phone] Reason for Visit * Reason Comments Follow-up Encounter Details Date Type Department Care Team (Late st Contact Info) Description 10/09/2014 1:15 PM EDT Office Visit Hematology [place] [id number] Kimberly Mondragon MD [facility] [place] [address] Lymphoma Discharge Disposition: Home Social History Tobacco [...] Sign Reading Time Taken Comments Blood Pressure 113/66 10/09/2014 1:19 PM EDT Pulse 87 10/09/2014 1:19 PM EDT Temperature 36.2 ??C (97.2 ??F) 10/09/2014 1:19 PM ED T Respiratory Rate 18 10/09/2014 1:19 PM EDT Oxygen Saturation 99% 10/09/2014 1:19 PM EDT Inhaled Oxygen Concentration - - Weight 66.6 kg (146 lb 13.2 oz) 10/09/2014 1:19 PM EDT Height 159.1 cm (5' 2.64) 10/09/2014 1:19 PM ED T Body Mass Index 26.31 10/09/2014 1:19 PM EDT documented in this encounter Progress Notes * Светлана Boone RN - 10/14/2014 6:31 PM EDT 10/09/14 BMT coordinator note/patient education Subjective: I am feeling a little overwhelmed and need to take each day by day. Objective: I met with Myriam Vivas and her friend today to discuss stem cell mobilization. See 's note of transplant teaching done and her needing an upcoming autologous transplant. I created a calendar for Myriam showing the days that she would be in for chemotherapy and the plan to start her Neupogen injections. I explained the rationale of the Neupogen injections and potential sideeffects she might experience while taking the Neupogen injections. While patient is in the hospitalfor her chemotherapy she will be taught subcutaneous teaching. Explained the Neupogen would probably require a prior authorization from her insurance company and I will begin working on that and havea plan for her when she is discharged on Tuesday from the hospital. Also explained to Myriam, I wouldneed to coordinate labs at [facility] through the infusion medical unit so they can access her MediPort for the 3x per week lab draws. Assessment: Myriam was verbalizing understanding about the stem cell collection. She also understands she needs more therapy before proceeding to the actual transplant. Plan: I will see patient on Tuesday prior to her discharge from the hospital to clarify the plan forher Neupogen and timing of her lab draws at [facility]. Myriam will call me if she has any additional concerns or questions. Myriam has my contact number and knows I will be following her next week during her lab monitoring and we anticipate a stem cell collection on 10/22 and 10/23. I will also coordinate a line catheter placement for her on the day of her collection on 10/22. Ongoing support and education. * Kimberly Mondragon MD - 10/09/2014 10:40 PM EDT Hematology Clinic [facility] [place] Page [phone] FOLLOW-UP PATIENT EVALUATION PROBLEM LIST: Patient Active [...] was not informative according to the [employer] diagnostics sales developer, but the strong BCL2 expression in the absence of MUM1 suggests a germinal center origin via the [employer] diagnostics sales developer. Lymphoma TB discussion 10/01/14 Recommendations for salvage chemotherapy and autologous stem cell transplant. ??? Depression with anxiety INTERIM HISTORY OF PRESENT ILLNESS: It was my pleasure to see Myriam Vivas back in clinic today. Myriam Vivas is a 64 y.o. year old female being seen for follow-up evaluation of diffuse large B-cell lymphoma. She was being treated on protocol but was randomized to the R CHOP standard of care arm. She received 6 cycles of chemotherapy but had PET avid residual adenopathy in the chest. She underwent a transbronchial biopsy which confirmed residual disease. Her previous appointment I explained the best chance of cure include salvage chemotherapy followed by an autologous stem cell transplant. 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 For this reason, I elected to treat her with RDHAP. She is doing relatively well. She's had ongoing problems with anxiety but has tried to minimize herAtivan use. Given the current situation, I explained that using her Ativan to help her cope is reasonable at this time. We will provide her with additional Ativan if needed. She's trying to minimize it, using 1-2 per day which is quite reasonable. She has no B symptoms or pain. Unfortunately she had to cancel her flight and trip to [place] which was going to be a celebration of completion of her therapy. We are happy to fill out any forms insurance company needs . ROS Energy level:stable Pain: No Appetite:good Fevers/chills/sweats:No Bruising/bleeding/melena:No Recent infections:No HEENT: negative Nausea/vomiting/diarrhea/constipation:No SOB/HAUSER/chest pain:No Change in adenopathy or other masses:No Unexpected weight loss or gain:No Skin rashes or petechiae:No Musculoskeletal complaints:No Extremities: Negative upper and lower bilaterally Neurologic symptoms:No Mood: Mild to moderate anxiety, appropriate Sleep: Difficulty sleeping MEDS: Outpatient Prescriptions Marked as Taking for the 10/09/14 encounter (Office Visit) with Kimberly Mondragon MD Medication Sig Dispense Refill ??? LORazepam (ATIVAN) 0.5 mg Tablet Take 1 tablet by mouth every 6 hours as needed for Anxiety. Patient takes one tablet in the morning, and two tablets at night 30 tablet 0 ??? diphenhydrAMINE-Acetaminophen 25-500 mg Tablet Take 50-1,000 mg by mouth. ??? docusate sodium (COLACE) 100 mg Capsule Take 100 mg by mouth 2 times daily. ??? senna (SENOKOT) 8.6 mg Tablet Take 1 tablet by mouth daily. ??? acetaminophen (TYLENOL) 500 mg Tablet Take 1,000 mg by mouth every 6 hours as needed. ??? [place]-3 Fatty Acids-Vitamin E (FISH OIL) 1,000 mg Capsule Take by mouth. ??? Calcium 500 mg Tablet Take by mouth. ??? Cholecalciferol, Vitamin D3, (VITAMIN D-3) 2,000 unit Capsule Take 1,000 Units by mouth. ??? escitalopram (LEXAPRO) 10 mg tablet Allergies: Allergies Allergen Reactions ??? Tegaderm [Transparent Dressings] Other (See Comments) Unsure if actual allergy, please try [id number] Skin tears/rawness INTERIM SOCIAL HISTORY Changes in job, home situation, tobacco or alcohol use: see HPI PHYSICAL EXAM BP 113/66 mmHg Pulse 87 Temp(Src) 36.2 ??C (97.2 ??F) (Temporal) Resp 18 Ht 159.1 cm (5' 2.64) Wt 66.6 kg (146 lb 13.2 oz) BMI 26.31 kg/m2 SpO2 99% Body surface area is [...] Gran Abs 0.01 0.00 - 0.05 x10(3)/mcL Magnesium Result Value Ref Range Magnesium 0.78 0.69 - 1.07 mmol/L Phosphorus Result Value Ref Range Phosphorus 3.2 2.5 - 4.5 mg/dL Uric acid Result Value Ref Range Uric Acid 3.3 2.5 - 6.5 mg/dL RADIOLOGY STUDIES REVIEWED: none ASSESSMENT/PLAN: It was my pleasure to see Myriam in clinic today. She is here with her friend Gege Valero, and the appointment was in conjunction with Brittaney, our pharmacist and Jessie Davila, fellow. I started off by reviewing her course to date with her diffuse large B-cell lymphoma. She understands that her best chance of survival is with salvage chemotherapy, CR PET, and subsequent autologous stem cell transplant. With this strategy, if all goes well, we can anticipate about a 60% survival rate. I'm encouraged that she has minimal disease left. She did well with therapy. Her LDH is normal.She has excellent organ function. Labs are listed above. PFTs were completed today and will be scanned into [facility]. We will obtain an echocardiogram while in house I reviewed the rationale for transplant, I reviewed the [facility] chemotherapy, stem cell collection, and briefly reviewed the transplant process itself. By the time we got to the transplant process, thepatient was overwhelmed so I just briefly reviewed that, with anticipation that we will review it again in future visits. I then discussed the [facility] chemotherapy with her. Many of the side effects are typical of all chemotherapy such as hair loss, nausea and vomiting, drop in blood counts, need for transfusions, risk for infections , fatigue, diarrhea or constipation. Cisplatin can cause peripheral neuropathy and renal insufficiency. Aggressive IV fluids will be used. We discussed the risks of treatment with high dose THELMA-C with the patient and her friend, Gege. Side Effects include but are not limited to drop in counts, risk for infection, need for transfusions,renal impairment, cerebellar toxicity, hair loss, N/V, fatique, eye dryness, rash, and renal toxicity. I discussed the benefits and risks of rituxan. These include but are not limited to fever night after infusion and infusional reactions that include but are not limited to rash, hives, anaphylaxis, shortness of breath, chest pain, rigors, bone pain, fever, hepatitis B reactivation and case reports of [employer] infections. she agreed to proceed with therapy. Baseline neurologic functions today were all normal. she had no nystagmus. Finger to nose, Macarena cake, utbm-[id number], were all ntact. There was no dysdiadochokinesia. she agrees to treatment plan. All questions were answered. I met with Myriam Vivas and her friend, Gege Valero, to discuss autologous bone marrow transplant. I started by explaining the rationale behind a transplant. That is being able to give higher doses of chemotherapy and rescuing the bone marrow, and the increase in survival of about 10 to 15% in B celllymphomas for high risk patient who undergo chemo + autologous transplant as compared to chemotherapy alone. I then explained how the transplant is done. I discussed the process of collection and pheresis of stem cells. We would plan to collect stem cells affter Cycle [address] [facility] chemotherapy. We will do a chemo prime. She will be giving herself daily injections of HD Neupogen. Approximately day 12 -14 of chemo prime, we would anticipate her blood counts to come up, and she would come in for a CD34 count to be checked and, if greater than 10, we would plan pheresis. I explained the process of pheresis with potential need of line placement. The pheresis usually takes four to five hours per day and usually takes one to three days. She understands that she may be fatigued, cold, or have perioral numbness. Our goal is to collect over 3 million stem cells per kilogram. After pheresis, she would then go home, and we would anticipate admission for autologous transplant 2-3 weeks after count recovery from her last cycle of chemotherapy, as perf status allows. I explained the transplant process itself. It [...] discussed side effects of the autologous transplant. At this point, the patient was saturated andwas clearly becoming overwhelmed. I basically reviewed the time line of 2 cycles of hemotherapy, followed by repeat PET scanning. I then reviewed the time line of an autologous stem cell transplant. I explained that she will be in house for about 3 weeks. She will need transfusions and be at risk for infections. She will be tired, but we anticipate that she'll be able to walk on a daily basis. She asked about pain with the transplant. I explained the only pain involved is usually only mucositisand about 50% of patients experience that. She should not experience pain other than that. We will see her back after stem cell collection, to re--review autologous stem cell transplantation. By that time, having the stem cell collection behind her, she should be better prepared to concentrate and understand the transplant process All of her questions were answered, and I wrote down all the information for her. she understands the risks and would like to proceed with our plan for stem cell collection and transplantation. she will meet with Светлана Boone. I will meet w/ her again to re-review transplant and especially the potential side effects and risks and for consenting. Plan: ?? Admit for cycle 1 of R-DHAP ?? Echocardiogram while in house ?? Please supply patient with prescriptions for Ativan and ondansetron upon discharge ?? Home-going antibiotics should include 14 day supply of levofloxacin 700 mg daily and [id number] mg daily. The patient should be on acyclovir 400 mg twice a day ongoing. ?? We are planning stem cell collection following his cycle of chemotherapy. Светлана Boone RN, transplanter, will organize follow-up Neupogen and labs. ?? Stem cell collection is anticipated on day 12 of chemotherapy total time:90 time in counsellin Copy SOPHY FUNES (General) documented in this encounter Plan of Treatment Upcoming Encounters Date Type Department Care Team (Late st Contact Info) Description 12/07/2023 12:00 PM EDT Office Visit Dermatology at [facility] [address] [place] [address] Juan F Chappell MD [facility] DR RANDE[place] [address] documented as of this encounter Procedures Procedure Name Priority Date/Time Associated Diagnosis Comments HEMOGRAM STAT 10/09/2014 2:46 PM EDT Lymphoma DIFFERENTIAL, AUTOMATED STAT 10/09/2014 2:46 PM EDT Lymphoma ABO/RH TYPING Routine 10/09/2014 2:46 PM EDT Lymphoma CBC (WITH DIFF) STAT 10/09/2014 2:46 PM EDT Lymphoma ANTIBODY SCREEN Routine 10/09/2014 2:46 PM EDT Lymphoma TYPE AND SCREEN ([facility]/MARTHA) Routine 10/09/2014 2:46 PM EDT Lymphoma URIC ACID STAT 10/09/2014 2:46 PM EDT Lymphoma PHOSPHORUS STAT 10/09/2014 2:46 PM EDT Lymphoma MAGNESIUM STAT 10/09/2014 2:46 PM EDT Lymphoma LACTATE DEHYDROGENASE STAT 10/09/2014 2:46 PM EDT Lymphoma COMPREHENSIVE METABOLIC PANEL STAT 10/09/2014 2:46 PM EDT Lymphoma documented in this encounter Results * (ABNORMAL) Lactate Dehydrogenase (01/23/2015 10:21 AM EST) Lactate Dehydrogenase 223(H) 110 - 220 unit/L CERNER MILLENNIUM Blood specimen (specimen) 01/23/2015 10:21 AM EST 01/23/2015 10:21 AM EST Narrative Resulting Agency Comment Spec In Lab Kimberly Mondragon MD CHEMISTRY ORDERA LEANNA CERNER MILLENNIUM * (ABNORMAL) Comprehensive metabolic panel (non-fasting) (01/23/2015 10:21 AM EST) Glucose 83 65 - 199 mg/dL CERNER MILLENNIUM Comment:Diabetes: >=200 mg/d L plus symptoms Blood Urea Nitrogen 19(H) 8 - 18 mg/dL CERNER MILLENNIUM Creatinine 0.84 0.70 - 1.20 mg/dL CERNER MILLENNIUM Comment: Please note that the pediatric reference intervals supplied above were not validated at [facility]. Results from pediatric patients should be interpreted [...] the following links into your internet browser. [email or web address] Blood specimen (specimen) 01/23/2015 10:21 AM EST 01/23/2015 10:21 AM EST Narrative Resulting Agency Comment Spec In Lab Kimberly Mondragon MD CHEMISTRY ORDERA [facility] * (ABNORMAL) Comprehensive metabolic panel (non-fasting) (01/07/2015 9:28 AM EST) [facility] Signature Glucose 114 65 - 199 mg/dL CERNER MILLENNIUM Comment:Diabetes: >=200 mg/d L plus symptoms Blood Urea Nitrogen 11 8 - 18 mg/dL CERNER MILLENNIUM Comment:result rechecked-NM Creatinine 1.03 0.70 - 1.20 mg/dL CERNER MILLENNIUM Comment: Please note that the pediatric reference intervals supplied above were not validated at [facility]. Results from pediatric patients should be interpreted [...] the following links into your internet browser. [email or web address] Blood specimen (specimen) 01/07/2015 9:28 AM EST 01/07/2015 9:34 AM EST Narrative Resulting Agency Comment Spec In Lab Kimberly Mondragon MD CHEMISTRY ORDERA BLES [facility] MILL[facility] * (ABNORMAL) Lactate Dehydrogenase (11/25/2014 11:47 AM EDT) Lactate Dehydrogenase 257(H) 110 - 220 unit/L CERNER MILLENNIUM Blood specimen (specimen) 11/25/2014 11:47 AM EDT 11/25/2014 12:02 PM EDT Narrative Resulting Agency Comment Spec In Lab Kimberly Mondragon MD CHEMISTRY ORDERA EDWARS CERNER DEWAYNEENNIUM * (ABNORMAL) Comprehensive metabolic panel (non-fasting) (11/25/2014 11:47 AM EDT) Glucose 100 65 - 199 mg/dL CERNER MILLENNIUM Comment:Diabetes: >=200 mg/d L plus symptoms Blood Urea Nitrogen 26(H) 8 - 18 mg/dL CERNER MILLENNIUM Creatinine 1.08 0.70 - 1.20 mg/dL CERNER MILLENNIUM Comment: Please note that the pediatric reference intervals supplied above were not validated at [facility]. Results from pediatric patients should be interpreted in conjunction to the patient's age, height and muscle mass. Sodium 141 135 - 145 mmol/L CERNER MILLENNIUM Potassium 4.9 3.5 - 5.0 mmol/L [...] the following links into your internet browser. [email or web address] Blood specimen (specimen) 11/25/2014 11:47 AM EDT 11/25/2014 12:02 PM EDT Narrative Resulting Agency Comment Spec In Lab Kimberly Mondragon MD CHEMISTRY ORDERA BLEMarkell Performing Organization Address [facility] Co de Phone Number GIBRAN BUCHANANSkubanaWILY * Uric acid (10/09/2014 2:46 PM EDT) Uric Acid 3.3 2.5 - 6.5 mg/dL GIBRAN COREAS Blood specimen (specimen) Venous Draw / Unknown 10/09/2014 2:46 PM EDT 10/09/2014 2:55 PM EDT Narrative Resulting Agency Comment Spec In Lab Kimberly Mondragon MD CHEMISTRY ORDERA BLES Performing Organization Address [facility] Co de Phone Number GIBRAN COREAS * Phosphorus (10/09/2014 2:46 PM EDT) Phosphorus 3.2 2.5 - 4.5 mg/dL GIBRAN GEEIUM Blood specimen (specimen) Venous Draw / Unknown 10/09/2014 2:46 PM EDT 10/09/2014 2:55 PM EDT Narrative Resulting Agency Comment Spec In Lab Kimberly Mondragon MD CHEMISTRY ORDERA BLEMarkell Performing Organization Address [facility] Co de Phone Number GIBRAN COREAS * Magnesium (10/09/2014 2:46 PM EDT) Magnesium 0.78 0.69 - 1.07 mmol/L GIBRAN GEEIUM Blood specimen (specimen) Venous Draw / Unknown 10/09/2014 2:46 PM EDT 10/09/2014 2:55 PM EDT Narrative Resulting Agency Comment Spec In Lab Kimberly Mondragon MD CHEMISTRY ORDERA BLES Performing Organization Address City/[facility]/ZIP Co de Phone Number CERNER MILLENNIUM * (ABNORMAL) Differential, Automated (10/09/2014 2:46 PM EDT) Neutrophil % 72.7 % CERNER MILLENNIUM Neutrophil Absolute 3.88 1.50 - 6.30 x10(3)/mc L CERNER MILLENNIUM Lymph % 15.6 % CERNER MILLENNIUM Lymphocytes Abs 0.8(L) 1.0 - 3.6 x10(3)/mc L CERNER MILLENNIUM Monocyte % 7.5 % CERNER MILLENNIUM Monocyte Abs 0.4 0.2 - 1.0 x10(3)/mc L CERNER MILLENNIUM Eos % 3.4 % CERNER MILLENNIUM Eosinophils Abs 0.2 0.0 - 0.5 x10(3)/mc L CERNER MILLENNIUM Basophil % 0.6 % CERNER MILLENNIUM Baso Absolute 0.0 0.0 [...] x10(3)/mc L CERNER MILLENNIUM Blood specimen (specimen) 10/09/2014 2:46 PM EDT 10/09/2014 2:51 PM EDT Narrative Resulting Agency Comment Spec In Lab Kimberly Mondragon MD HEMATOLOGY ORDER AYO CERNER MILLENNIUM * (ABNORMAL) Hemogram (10/09/2014 2:46 PM EDT) Pathologist [facility] White Blood Cell 5.3 4.0 - 10.0 x10(3)/mc L [facility] Red Blood Cell 3.93 3.93 - 5.22 x10(6)/mc L [facility] MILL[facility] Hemoglobin 12.7 11.2 - 15.7 gm/dL [facility] MILLEN[facility]UM Hematocrit 36.5 34.0 - 45.0 % CERNER MILLENNIUM Mean Cell Volume 92.9 79.0 - 94.0 fL CERNER MILLENNIUM Mean Cell Hemoglobin 32.3(H) 26.6 - 32.2 pg [facility] Mean Cell Hemoglobin Concentration 34.8 32.0 - 36.5 gm/dL [facility] MILLENNIUM Platelet 235 145 - 370 x10(3)/mc L [facility] MILL[facility] RDW Standard Deviation 40.0 35.0 - 46.0 fL CERNER MILLENNIUM RDW coefficient of variation 11.8 10.9 - 14.4 % CERNER MILLENNIUM Mean Platelet Volume 9.2 9.0 - 12.0 fL [facility] MILL[facility] Blood specimen (specimen) 10/09/2014 2:46 PM EDT 10/09/2014 2:51 PM EDT Narrative Resulting Agency Comment Spec In Lab Kimberly Mondragon MD HEMATOLOGY ORDER [facility] G[facility] * Antibody screen (10/09/2014 2:46 PM EDT) Pathologist [facility] Ab Screen Interp Negative CERNER DEWAYNEENNIUM Expires at [id number] on: 10/12/2014 [facility] DEWAY[facility] Blood specimen (specimen) 10/09/2014 2:46 PM EDT 10/09/2014 3:04 PM EDT Narrative Resulting Agency Comment Spec In Lab Kimberly oMndragon MD BLOOD BANK LAB O RDERABLES [facility] GERARDIUM * ABO/Rh Typing (10/09/2014 2:46 PM EDT) ABORH Type B Pos CERNER MILLENNIUM Blood specimen (specimen) 10/09/2014 2:46 PM EDT 10/09/2014 3:04 PM EDT Narrative Resulting Agency Comment Spec In Lab Kimberly Mondragon MD BLOOD BANK LAB O RDERABLES Performing Organization Address [facility]/ZIP Co de Phone Number CERNER MILLENNIUM * Lactate Dehydrogenase (10/09/2014 2:46 PM EDT) Pathologist [facility] Lactate Dehydrogenase 197 110 - 220 unit/L CERNER MILLENNIUM Blood specimen (specimen) 10/09/2014 2:46 PM EDT 10/09/2014 2:51 PM EDT Narrative Resulting Agency Comment Spec In Lab Kimberly Mondragon MD CHEMISTRY ORDERA BLES Performing Organization Address [facility] Co de Phone Number CERNER MILLENNIUM * (ABNORMAL) Comprehensive metabolic panel (non-fasting) (10/09/2014 2:46 PM EDT) Pathologist [facility] Glucose 92 65 - 199 mg/dL CERNER MILLENNIUM Comment:Diabetes: >=200 mg/d L plus symptoms Blood Urea Nitrogen 19(H) 8 - 18 mg/dL CERNER MILLENNIUM Creatinine 0.67(L) 0.70 - 1.20 mg/dL CERNER MILLENNIUM Comment: Please note that the pediatric reference intervals supplied above were not validated at [facility]. Results from pediatric patients should be interpreted [...] 5 - 15 mmol/L CERNER MILLENNIUM Calcium 10.0 8.5 - 10.5 mg/dL CERNER MILLENNIUM Protein, Total 6.9 6.1 - 8.0 gm/dL CERNER MILLENNIUM Albumin 4.7 3.2 - 5.2 gm/dL CERNER MILLENNIUM Aspartate Aminotransferase 28 0 - 30 unit/L CERNER MILLENNIUM Alanine Aminotransferase 36(H) 0 - 30 unit/L CERNER MILLENNIUM Alkaline Phosphatase 120(H) 40 - 104 unit/L CERNER MILLENNIUM Bilirubin, Total 0.6 0.2 - 1.3 mg/dL CERNER MILLENNIUM Bilirubin, [...] the following links into your internet browser. [email or web address] Blood specimen (specimen) 10/09/2014 2:46 PM EDT 10/09/2014 2:51 PM EDT Narrative Resulting Agency Comment Spec In Lab Kimberly Mondragon MD CHEMISTRY ORDERA BLES GIBRAN COREAS documented in this encounter Visit Diagnoses Diagnosis Lymphoma Other malignant lymphomas, unspecified site, extranodal and solid organ sites documented in this encounter Care Teams Family Service Worker Relationship Specialty Start Date End Date Maine Dunn PA PCP - General 04/08/14 02/13/15 documented as of this encounter
--- OUTSIDE RECORDS SUMMARY | 2023-10-28 00:47 | XMS_ITS | Encounter Summary ---
Author Organization [facility] Address [facility] [place] [address] Care Team Providers Care It Network Engineer Name Role Phone Maine Dunn Primary Care Provider [phone] Encounter Details Date Type Department Care Team (Late st Contact Info) Description 10/01/2014 Notes Only H[place]ology [place] [address] Kimberly Mondragon MD [facility] [address] [place] [address] Social History Tobacco Use Types Packs/Day Years [...] 12:00 PM EDT Office Visit Dermatology at [facility] [address] [place] [address] Juan F Chappell MD [facility] DR [place] [address] documented as of this encounter Visit Diagnoses Not on filedocumented in this encounter Care Teams It Network Engineer Relationship Specialty Start Date End Date Maine Dunn PA PCP - General 04/08/14 02/13/15 documented as of this encounter
--- OUTSIDE RECORDS SUMMARY | 2023-10-28 00:48 | XMS_ITS | Encounter Summary ---
Author Organization [facility] Address [facility] [place] [address] Care Team Providers Care Phytopathologist Name Role Phone Maine Dunn Primary Care Provider Reason for Visit * Reason Comments Chemotherapy R-CHOP cycle 4 of 6 Study: [id number] Encounter Details Date Type Department Care Team (Late st Contact Info) Description 06/12/2014 10:00 AM EDT Office Visit Hematology Oncology at [address] [address] Lymphoma Social History Tobacco Use Types Packs/Day Years Used Date Smoking Tobacco: Never Sex and Gender Information Value Date Recorded Sex Assigned at Not on file Gender Identity Not on file Sexual Orientation Not on file documented as of this encounter Last Filed Vital Signs Vital Sign Reading Time Taken Comments Blood Pressure 92/41 06/12/2014 12:55 PM EDT Pulse 83 06/12/2014 12:55 PM EDT Temperature 36.8 ??C (98.2 ??F) 06/12/2014 12:55 PM E DT Respiratory Rate 18 06/12/2014 12:55 PM EDT Oxygen Saturation 95% 06/12/2014 12:55 PM EDT Inhaled Oxygen Concentration - - Weight - - Height - - Body Mass Index - - documented in this encounter Progress Notes * Carrie Rodriguez - 06/12/2014 10:01 AM EDT INFUSION THERAPY ADMINISTRATION NOTES DIAGNOSIS: Lympthom CYCLE #: 4 of 6 Investigational Study: [id number] REASON FOR VISIT: Chemotherapy SUBJECTIVE Myriam offers no complaints. OBJECTIVE LAB DATA: 06/10/14 WBC 4.8 Hgb 11.0 Plt 282 ANC 3.27 IV ACCESS: Right Mediport BLOOD RETURN: Yes + ANY S/S OF INFECTION/EXTRAVASATIONS: none IV FLUSHED WITH: 20 cc Normal Saline & 500 units Heparin IV DISCONTINUED: yes Pre administration: Chemotherapy orders independently verified for drug name, route, and dosage per patient's height, weight and BSA by LINDA Burger and onsite pharmacist. REACTIONS (DESCRIPTION, TIME, INTERVENTION AND EFFECTIVENESS) none ASSESSMENT Myriam was awake, alert and he tolerated treatment well. PLAN Return to clinic per routine, as scheduled. 06/13. documented in this encounter Plan of Treatment Upcoming Encounters Date Type Department Care Team (Late st Contact Info) Description 12/07/2023 12:00 PM EDT Office Visit Dermatology at [address] [address] Juan F Chappell MD [facility] DR RANDE[place] [address] documented as of this encounter Visit Diagnoses Diagnosis Lymphoma Other malignant lymphomas, unspecified site, extranodal and solid organ sites documented in this encounter Administered Medications Inactive Administered Medications - up to 3 most recent administrations Medication Order MAR Action Action Date Dose Rate Site acetaminophen (TYLENOL) tablet 650 mg 650 mg, Oral, ONCE, 1 dose, On Tue06/12/14 at 0930, 30 to 60 minutes prior to riTUXimab. Maximum dose of acetaminophen is 4000 mg from all sources in 24 hours., Routine Given 06/12/2014 10:35 AM EDT 650 mg cyclophosphamide (CYTOXAN) 1,300 mg in dextrose 5% 315 mL chemo infusion 1,300 mg, Intravenous, ONCE, 1 dose, On Tue06/12/14 at 0930, Administer over 30 Minutes New Bag 06/12/2014 1:44 PM EDT 1,300 mg 630 mL/hr diphenhydrAMINE (BENADRYL) capsule 50 mg 50 mg, Oral, ONCE, 1 dose, On Tue06/12/14 at 0930, 30 to 60 minutes prior to riTUXimab, Routine Given 06/12/2014 10:35 AM EDT 50 mg DOXOrubicin (ADRIAMYCIN) chemo injection 85 mg 85 mg, Intravenous, ONCE, 1 dose, On Tue06/12/14 at 0930, Administer over 6 Minutes, Total Dose 85 mg = 42.5 mL divided into 2 syringes. Each syringe contains 42.5 mg = 21.25 mL. Infuse each syringe over a minimum of 3 minutes. Vesicant/irritant. Avoid extravasation. Given 06/12/2014 1:25 PM EDT 85 mg 425 mL/hr ondansetron (ZOFRAN) tablet 16 mg 16 mg, Oral, ONCE, 1 dose, On Tue06/12/14 at 0930, Pre-chemotherapy on day 1, Routine Given 06/12/2014 10:35 AM EDT 16 mg predniSONE (DELTASONE) tablet 150 mg 150 mg, Oral, ONCE, 1 dose, On Tue06/12/14 at 0930, Total dose = 170 mg. Administer 30 to 60 minutes prior to riTUXimab on day 1., Routine Given 06/12/2014 10:36 AM EDT 150 mg predniSONE (DELTASONE) tablet 20 mg 20 mg, Oral, ONCE, 1 dose, On Tue06/12/14 at 0930, Total dose = 170 mg. Administer 30 to 60 minutes prior to riTUXimab on day 1., Routine Given 06/12/2014 10:36 AM EDT 20 mg riTUXimab (RITUXAN) 650 mg in sodium chloride 0.9% 325 mL infusion 650 mg, Intravenous, ONCE, 1 dose, On Tue06/12/14 at 0930, Round medication dose to the nearest 100 mg: Keep dose as calculated (DO NOT round), Patient is a candidate for rapid infusion riTUXimab? No Rate/Dose Change 06/12/2014 11:59 AM EDT 650 mg 260 mL/hr New Bag 06/12/2014 11:29 AM EDT 650 mg 130 mL/hr sodium chloride 0.9% infusion 125 mL/hr, Intravenous, CONTINUOUS, Starting on Tue06/12/14 at 0930, Until Tue06/12/14 at 1633, While in clinic New Bag 06/12/2014 10:26 AM EDT 125 mL/hr 125 mL/hr vinCRIStine (ONCOVIN) chemo injection 2 mg 2 mg, Intravenous, ONCE, 1 dose, On Tue06/12/14 at 0930, Administer over 2 Minutes, FOR IV USE ONLY. FATAL IF GIVEN BY OTHER ROUTES. Vesicant/irritant Avoid extravasation Given 06/12/2014 1:38 PM EDT 2 mg 60 mL/hr documented in this encounter Care Teams Phytopathologist Relationship Specialty Start Date End Date Maine Dunn PA PCP - General 04/08/14 02/13/15 documented as of this encounter
--- OUTSIDE RECORDS SUMMARY | 2023-10-28 00:48 | XMS_ITS | Encounter Summary ---
Author Organization [facility] Address [facility] [place] [address] Care Team Providers Care Gui Developer Name Role Phone Maine Dunn Primary Care Provider [phone] Encounter Details Date Type Department Care Team (Late st Contact Info) Description 06/10/2014 10:20 AM EDT Ancillary Appointment Hematology [place] [address] CLINIC, Kimberly Hanson MD [facility] [place] [address] Examination of participant in clinical trial Discharge [...] [facility] [address] [place] [address] Juan F Chappell MD [facility] [place] [address] documented as of this encounter Visit Diagnoses Diagnosis Examination of participant in clinical trial documented in this encounter Care Teams Gui Developer Relationship Specialty Start Date End Date Maine Dunn PA PCP - General 04/08/14 02/13/15 documented as of this encounter
--- OUTSIDE RECORDS SUMMARY | 2023-10-28 00:48 | XMS_ITS | Encounter Summary ---
Author Organization [facility] Address [facility] [place] [address] Care Team Providers Care Site Identification Specialist Name Role Phone Maine Dunn Primary Care Provider [phone] Reason for Visit * Reason Comments Follow-up Encounter Details Date Type Department Care Team (Late st Contact Info) Description 07/24/2014 9:00 AM EDT Follow-Up Hematology/Oncology at [address] [address] Hawa Overton APRN [facility] [place] [address] DLBCL (diffuse large B cell lymphoma) Discharge Disposition: Home Social History Tobacco Use Types Packs/Day Years Used Date Smoking Tobacco: Never Sex and Gender Information Value Date Recorded Sex Assigned at Not on file Gender Identity Not on file Sexual Orientation Not on file documented as of this encounter Last Filed Vital Signs Vital Sign Reading Time Taken Comments Blood Pressure 109/67 07/24/2014 8:42 AM EDT Pulse 82 07/24/2014 8:42 AM EDT Temperature 36.6 ??C (97.9 ??F) 07/24/2014 8:42 AM ED T Respiratory Rate 16 07/24/2014 8:42 AM EDT Oxygen Saturation 98% 07/24/2014 8:42 AM EDT Inhaled Oxygen Concentration - - Weight 67.4 kg (148 lb 8 oz) 07/24/2014 8:42 AM EDT Height 159 cm (5' 2.6) 07/24/2014 8:42 AM EDT Body Mass Index 26.64 07/24/2014 8:42 AM EDT documented in this encounter Patient Instructions * Patient Instructions* Hawa Overton APRN - 07/24/2014 11:39 AM EDT She will return in August for follow up with a pet scan- already scheduled. She will take zantac twice day for heartburn while she is on prednisone. She will continue with warm water and baking soda rinses. documented in this encounter Progress Notes * Hawa Overton APRN - 07/24/2014 11:38 AM EDT . [place] [address] FOLLOW-UP PATIENT EVALUATION PROBLEM LIST: Patient Active [...] female being seen for follow-up evaluation of DLBCL. She did pretty well with C#4 HOP on protocol. The nausea seems to be controlled. Uses ativan at night. Has had a lot going on at home with other family members. Work is stressful. She is with Jolie today. She had more depression with this last cycle of treatment so she doubled the lexapro during the time that she will on high dose prednisone.she couldn't stop crying and she didn't want to get out of bed. She had more issues with heartburn this last cycle as well. She tried tums and this helped. Taking ativan 0.5mg q AM and 1 mg q PM. She has noted more fatigue especially with this cycle. This is probably coincident and probably partially related to her drop in hemoglobin. Her hemoglobin stays 10.6 + constipation - using colace , Senna, smooth tea. No neuropathy. She's controlling her constipation better this week. Took her prednisone as ordered. She has her prednisone for this cycle. she is working on her oral intake. ROS Energy level:improving Pain: No Appetite:eating well but different foods than her normal Fevers/chills/sweats:No Bruising/bleeding/melena:No Recent infections:No HEENT: negative Nausea/vomiting/diarrhea/constipation: nausea at home SOB/HAUSER/chest pain:No Change in adenopathy or other masses:No Unexpected weight loss or gain: + wt gain Skin rashes or petechiae:No Musculoskeletal complaints:No Extremities: Negative upper and lower bilaterally Neurologic symptoms: see above Mood: Sig improvement in anxiety - 0.5mg ativan in AM Sleep: Using 1mg ativan to help w/ sleep. MEDS: Outpatient Prescriptions Marked as Taking for the 07/24/14 encounter (Follow-Up) with Hawa Overton APRN Medication Sig Dispense Refill ??? ondansetron (ZOFRAN) 8 mg Tablet take 1 tablet by mouth every 8 hours if needed for nausea 10 tablet 6 ??? LORazepam (ATIVAN) 0.5 mg Tablet Take 0.5 mg by mouth every 6 hours as needed for Anxiety. Patient takes one tablet in the morning, and two tablets at night ??? docusate sodium (COLACE) 100 mg Capsule Take 100 mg by mouth 2 times daily. ??? senna (SENOKOT) 8.6 mg Tablet Take 1 tablet by mouth daily. ??? polyethylene glycol (MIRALAX) 17 gram Powder in Packet Take 17 g by mouth daily. ??? acyclovir (ZOVIRAX) 400 mg Tablet Take 1 tablet by mouth 2 times daily. 60 tablet 3 ??? [place]-3 Fatty Acids-Vitamin E (FISH OIL) 1,000 mg Capsule Take by mouth. ??? Calcium 500 mg Tablet Take by mouth. ??? Cholecalciferol, Vitamin D3, (VITAMIN D-3) 2,000 unit Capsule Take 1,000 Units by mouth. ??? escitalopram (LEXAPRO) 10 mg tablet Allergies: Allergies Allergen Reactions ??? Tegaderm [Transparent Dressings] Other (See Comments) Unsure if actual allergy, please try [id number] Skin tears/rawness INTERIM SOCIAL HISTORY Changes in job, home situation, tobacco or alcohol use: Working 8-15 hours per week PHYSICAL EXAM BP 109/67 Pulse 82 Temp(Src) 36.6 ??C (97.9 ??F) (Oral) Resp 16 Ht 159 cm (5' 2.6) Wt 67.359 kg (148 lb 8 oz) BMI 26.64 kg/m2 SpO2 98% Body surface area is 1.73 meters squared. GENERAL: Myriam Vivas appears well and is in no acute distress. ENT: Oral pharynx clear. EYES: SWATHI NECK: Supple without adenopathy. AXILLARY: L axillary adenopathy multiple smaller LN - now no longer conglomerate -about 2 cm largest OTHER LYMPH: no adenopathy CARDIAC: Regular rate and rhythm without S3,S4 or murmurs. LUNGS: Clear to auscultation./percussion. Diminished LOLI. ABDOMEN: Soft and non-tender without hepatosplenomegaly or masses. EXTREMITIES: No cyanosis, clubbing, edema or calf tenderness. SKIN: No bruises or petechiae. NEUROLOGICAL: Alert and oriented to person, place and time. MUSCULOSKELETAL: No spinal or chest wall tenderness. LINE: nontender, no erythema LABORATORY STUDIES No results found for this or any previous visit (from the past 72 hour(s)). Labs from 07/22/14 show white count of 3.96 ANC of 2.5 hemoglobin of 10.3 platelets of 369.LDH 209 RADIOLOGY STUDIES REVIEWED: None done ASSESSMENT/PLAN: Myriam is here for f/u appt after C#5 RCHOP on protocol. She did relatively well with C#4. She has insurance ppwk that needs to be in by Tuesday so we worked with [facility] RN to get that resolved today. I reviewed all of her side effects (see HPI) and management of these. Research RN reinforced this as well. Today we primaily dis Heme - will support with neulasta again. Constipation - Much improved. Rash - gone Sleep - using ativan 1mg qhs. Anxiety - significantly improved - rare use of ativan during the day - mostly when she has to do work. Feels anxious when she is on pred and ativan helps with that as well. she felt more depressed with her last treatment. Her lexapro was doubled and this seemed to help. She will go to a friend's house after treatment who will help her with this depression. She continues to get anxious when plans change or she feels like things are not in control The therapist is helping her. Merek seems to be supportive and able to help her. Nausea - much better with last cycle. Myriam had questions re: how soon after treatment can she have the port removed. Heartburn- she will take zantac twice day while on the prednisone and for one week following the prednisone. Then she can take it prn. RTC on September [address] Mondragon with labs and PET scan. At that time a plan for followup will be made. total time: time in counselling: Copy SOPHY FUNES documented in this encounter Plan of Treatment Upcoming Encounters Date Type Department Care Team (Late st Contact Info) Description 12/07/2023 12:00 PM EDT Office Visit Dermatology at [place] [address] [place] [address] Juan F Chappell MD [facility] DR [place] [address] documented as of this encounter Procedures Procedure Name Priority Date/Time Associated Diagnosis Comments LAB SCAN 07/22/2014 12:00 AM EDT LAB SCAN 07/01/2014 12:00 AM EDT documented in this encounter Results * SCAN DOC: LAB (07/22/2014 12:00 AM EDT) Scanning Provider MEDIA MGR SCAN EXT O RDR/RSLT * SCAN DOC: LAB (07/01/2014 12:00 AM EDT) Scanning Provider MEDIA MGR SCAN EXT O RDR/RSLT documented in this encounter Visit Diagnoses Diagnosis DLBCL (diffuse large B cell lymphoma) Other malignant lymphomas, unspecified site, extranodal and solid organ sites documented in this encounter Care Teams Site Identification Specialist Relationship Specialty Start Date End Date Maine Dunn PA PCP - General 04/08/14 02/13/15 documented as of this encounter
--- OUTSIDE RECORDS SUMMARY | 2023-10-28 00:48 | XMS_ITS | Encounter Summary ---
Author Organization [facility] Address [facility] [place] [address] Care Team Providers Care Tooling Mechanic Name Role Phone Belén Griffin MD Primary Care Provider [phone] Reason for Visit * Reason Comments Medication Refill Encounter Details Date Type Department Care Team (Late st Contact Info) Description 07/15/2014 Refill Hematology [place] [address] Kimberly Mondragon MD [facility] [address] [place] [address] Social History Tobacco Use Types Packs/Day Years Used Date Smoking Tobacco: Never Sex and Gender Information Value Date Recorded Sex Assigned at Not on file Gender Identity Not on file Sexual Orientation Not on file documented as of this encounter Plan of Treatment Upcoming Encounters Date Type Department Care Team (Late st Contact Info) Description 12/07/2023 12:00 PM EDT Office Visit Dermatology at [facility] [address] [place] [address] Juan F Chappell MD [facility] DR RANDE[place] [address] documented as of this encounter Visit Diagnoses Not on filedocumented in this encounter Care Teams Tooling Mechanic Relationship Specialty Start Date End Date Belén Griffin MD [address] [facility] [address] [place] [address] PCP - General Family Medicine 05/07/15 documented as of this encounter
--- OUTSIDE RECORDS SUMMARY | 2023-10-28 00:48 | XMS_ITS | Encounter Summary ---
Author Organization [facility] Address [facility] [place] [address] Care Team Providers Care Continuous Loft Operator Name Role Phone Maine Dunn Primary Care Provider Encounter Details Date Type Department Care Team (Late st Contact Info) Description 07/03/2014 10:00 AM EDT Infusion Hematology Oncology at [address] [address] CLINIC, DR MARINA HEM/ONC Lymphoma (Primary Dx) Social History Tobacco Use Types Packs/Day Years Used Date Smoking Tobacco: Never Sex and Gender Information Value Date Recorded Sex Assigned at Not on file Gender Identity Not on file Sexual Orientation Not on file documented as of this encounter Last Filed Vital Signs Vital Sign Reading Time Taken Comments Blood Pressure 92/57 07/03/2014 12:15 PM EDT Pulse 81 07/03/2014 12:15 PM EDT Temperature 36.6 ??C (97.9 ??F) 07/03/2014 12:15 PM E DT Respiratory Rate 16 07/03/2014 12:15 PM EDT Oxygen Saturation 95% 07/03/2014 12:15 PM EDT Inhaled Oxygen Concentration - - Weight - - Height - - Body Mass Index - - documented in this encounter Progress Notes * Faustina Soto RN - 07/03/2014 4:10 PM EDT INFUSION THERAPY ADMINISTRATION NOTES DIAGNOSIS: DLBCL CYCLE #: 5 REASON FOR VISIT: [facility]--Protocol # E1412 Arm B SUBJECTIVE Myriam offers that she is tired. OBJECTIVE LAB DATA: WNL IV ACCESS: Mediport Pre administration: Chemotherapy orders independently verified for drug name, route, and dosage per patient's height, weight and BSA by Faustina Soto RN and Ghassan Castillo [facility]. REACTIONS (DESCRIPTION, TIME, INTERVENTION AND EFFECTIVENESS) none ASSESSMENT Myriam was awake, alert and tolerated treatment well. PLAN Return to clinic per routine. documented in this encounter Plan of Treatment Upcoming Encounters Date Type Department Care Team (Late st Contact Info) Description 12/07/2023 12:00 PM EDT Office Visit Dermatology at [facility] [address] [place] [address] Juan F Chappell MD [facility] DR RANDEE [place] [address] documented as of this encounter Visit Diagnoses Diagnosis Lymphoma- Primary Other malignant lymphomas, unspecified site, extranodal and solid organ sites documented in this encounter Administered Medications Inactive Administered Medications - up to 3 most recent administrations Medication Order MAR Action Action Date Dose Rate Site acetaminophen (TYLENOL) tablet 650 mg 650 mg, Oral, ONCE, 1 dose, On Tue07/03/14 at 1000, 30 to 60 minutes prior to riTUXimab. Maximum dose of acetaminophen is 4000 mg from all sources in 24 hours., Routine Given 07/03/2014 10:22 AM EDT 650 mg cyclophosphamide (CYTOXAN) 1,300 mg in dextrose 5% 315 mL chemo infusion 1,300 mg, Intravenous, ONCE, 1 dose, On Tue07/03/14 at 1000, Administer over 30 Minutes New Bag 07/03/2014 1:20 PM EDT 1,300 mg 630 mL/hr diphenhydrAMINE (BENADRYL) capsule 25 mg 25 mg, Oral, ONCE, 1 dose, On Tue07/03/14 at 1000, 30 to 60 minutes prior to riTUXimab, Routine Given 07/03/2014 10:22 AM EDT 25 mg DOXOrubicin (ADRIAMYCIN) chemo injection 85 mg 85 mg, Intravenous, ONCE, 1 dose, On Tue07/03/14 at 1000, Administer over 6 Minutes, Total Dose 85 mg = 42.5 mL divided into 2 syringes. Each syringe contains 42.5 mg = 21.25 mL. Infuse each syringe over a minimum of 3 minutes. Vesicant/irritant. Avoid extravasation. Given 07/03/2014 1:02 PM EDT 85 mg 425 mL/hr ondansetron (ZOFRAN) tablet 16 mg 16 mg, Oral, ONCE, 1 dose, On Tue07/03/14 at 1000, Pre-chemotherapy on day 1, Routine Given 07/03/2014 10:23 AM EDT 16 mg predniSONE (DELTASONE) tablet 170 mg 170 mg, Oral, ONCE, 1 dose, On Tue07/03/14 at 1000, Total dose = 170 mg. Administer 30 to 60 minutes prior to riTUXimab on day 1., Routine Given 07/03/2014 10:25 AM EDT 170 mg riTUXimab (RITUXAN) 650 mg in sodium chloride 0.9% 325 mL infusion 650 mg, Intravenous, ONCE, 1 dose, On Tue07/03/14 at 1000, Round medication dose to the nearest 100 mg: Keep dose as calculated (DO NOT round), Patient is a candidate for rapid infusion riTUXimab? No New Bag 07/03/2014 11:13 AM EDT 650 mg sodium chloride 0.9% infusion 1,000 mL, at 125 mL/hr, Intravenous, ONCE, 1 dose, On Tue07/03/14 at 1000, While in clinic New Bag 07/03/2014 10:00 AM EDT 1,000 mLs 125 mL/hr vinCRIStine (ONCOVIN) chemo injection 2 mg 2 mg, Intravenous, ONCE, 1 dose, On Tue07/03/14 at 1000, Administer over 2 Minutes, FOR IV USE ONLY. FATAL IF GIVEN BY OTHER ROUTES. Vesicant/irritant Avoid extravasation Given 07/03/2014 1:16 PM EDT 2 mg 60 mL/hr documented in this encounter Care Teams Continuous Loft Operator Relationship Specialty Start Date End Date Maine Dunn PA PCP - General 04/08/14 02/13/15 documented as of this encounter
--- OUTSIDE RECORDS SUMMARY | 2023-10-28 00:48 | XMS_ITS | Encounter Summary ---
Author Organization [facility] Address [facility] [place] [address] Care Team Providers Care Chief Librarian Branch Name Role Phone Maine Dunn Primary Care Provider [phone] Encounter Details Date Type Department Care Team (Late Contact Info) Description 07/16/2014 Orders Only Hematology/Oncology at [address] [phone] Ana Paula Benz RN Other malignant lymphomas, unspecified site, extranodal and [...] [facility] [address] [place] [address] Juan F Chappell MD [facility] DR [place] [address] documented as of this encounter Visit Diagnoses Diagnosis Other malignant lymphomas, unspecified site, extranodal and solid organ sites documented in this encounter Care Teams Chief Librarian Branch Relationship Specialty Start Date End Date Maine Dunn PA PCP - General 04/08/14 02/13/15 documented as of this encounter
--- OUTSIDE RECORDS SUMMARY | 2023-10-28 00:48 | XMS_ITS | Encounter Summary ---
Author Organization [facility] Address [facility] [place] [address] Care Team Providers Care Corporate Giving Manager Name Role Phone Maine Dunn Primary Care Provider [phone] Encounter Details Date Type Department Care Team (Late st Contact Info) Description 09/02/2014 1:00 PM EDT - 09/02/2014 2:00 PM EDT Surgery [place] [phone] Kimberly Velez MD [facility] DR HEMATOLOGY [place] [address] ([facility] MSURG) BONE MARROW ASP PERFORMED W/BX [...] Sign Reading Time Taken Comments Blood Pressure 110/48 09/02/2014 1:32 PM EDT Pulse 65 09/02/2014 1:32 PM EDT Temperature 36.5 ??C (97.7 ??F) 09/02/2014 11:36 AM E DT Respiratory Rate 14 09/02/2014 1:32 PM EDT Oxygen Saturation 99% 09/02/2014 1:32 PM EDT Inhaled Oxygen Concentration - - Weight 65.8 kg (145 lb) 09/02/2014 11:36 AM EDT Height 157.5 cm (5' 2) 09/02/2014 11:36 AM EDT Body Mass Index 26.52 09/02/2014 11:36 AM EDT documented in this encounter Discharge Instructions * Discharge Instructions* Christen Powell RN - 09/02/2014 11:15 AM EDT OUTPATIENT SURGERY POST-OPERATIVE INSTRUCTIONS BONE MARROW BIOPSY [...] 5pm or on a weekend: Call the [facility] oliving machine operator at and ask for the physician conference service coordinator covering for your doctor. Instructions following sedation You may have received medication before and/or during your procedure, which affects judgement and reaction time. Use caution with stairs. Do not drive, operate machinery, drink alcoholic beverages, or make any legal decisions for 24 hours. You may eat a regular diet as tolerated. IV site -- slight redness, or tenderness is normal, you can use a warm compress. If tenderness and redness increases or foul drainage occurs, please contact your [facility] [address] ??? [place] [address] ??? [phone] ??? [email or web address] ??? [facility] ??? [facility] ??? [facility] documented in this encounter Medications at Time of Discharge Medication Sig Dispensed Refills Start Date End Date acyclovir (ZOVIRAX) 400 mg Tablet take 1 tablet by mouth twice a day 60 tablet 3 08/23/2014 09/26/2014 LORazepam (ATIVAN) 0.5 mg Tablet Take 1 [...] mouth every 6 hours as needed. 10/11/2014 Exmore-3 Fatty Acids-Vitamin E (FISH OIL) 1,000 mg CapsuleIndications:Lymp fawn Take by mouth. 01/29/2015 Calcium 500 mg TabletIndications:Lymph vivien Take by mouth. 01/29/2015 Cholecalciferol, Vitamin D3, (VITAMIN D-3) 2,000 unit CapsuleIndications:Lymp fawn Take 1,000 Units by mouth. 01/29/2015 escitalopram (LEXAPRO) 10 mg tablet 03/08/2005 01/03/2015 documented as of this encounter Progress Notes * Michelle Kemp, ADRIEN - 09/02/2014 1:04 PM EDT Pre-Sedation Assessment: Planned procedure: bone marrow biopsy and aspirate Indications: staging lymphoma Diagnosis: lymphoma Assessment: Cardiovascular: Rhythm: Regular Rate: Normal Pulmonary: Breath sounds clear to auscultation ASA: 3: Patient with severe systemic disease Mallampati: II: tonsillar pillars are blocked by the tongue H&P reviewed: Yes Relevant diagnostic studies: Recent Results (from the past 72 hour(s)) HEMOGRAM Result Value Ref Range WBC 4.6 4.0 - 10.0 x10(3)/mcL RBC 3.50 (*) 3.93 - 5.22 x10(6)/mcL Hemoglobin 11.7 11.2 - 15.7 gm/dL Hematocrit 33.2 (*) 34.0 - 45.0 % MCV 94.9 (*) 79.0 - 94.0 fL MCH 33.4 (*) 26.6 - 32.2 pg MCHC 35.2 32.0 - 36.5 gm/dL Platelets 165 145 - 370 x10(3)/mcL RDWSD 43.3 35.0 - 46.0 fL RDWCV 12.5 10.9 - 14.4 % MPV 9.6 9.0 - 12.0 fL DIFFERENTIAL, AUTOMATED Result Value Ref Range Neutrophils % 61.3 Neutr Abs (ANC) 2.79 1.50 - 6.30 x10(3)/mcL Lymphocytes % 16.4 Lymphocytes Abs 0.8 (*) 1.0 - 3.6 x10(3)/mcL Monocytes % 14.7 Monocyte Abs 0.7 0.2 - 1.0 x10(3)/mcL Eosinophils % 5.9 Eosinophils Abs 0.3 0.0 - 0.5 x10(3)/mcL Basophils % 1.5 Basophils Abs 0.1 0.0 - 0.2 x10(3)/mcL Immature Gran % 0.20 [place] Gran Abs 0.01 0.00 - 0.05 x10(3)/mcL COMPREHENSIVE METABOLIC PANEL (NON-FASTING) Result Value Ref Range Glucose Lvl 94 65 - 199 mg/dL BUN 20 (*) 8 - 18 mg/dL Creatinine 0.67 (*) 0.70 - 1.20 mg/dL Sodium 141 135 - 145 mmol/L Potassium 4.2 3.5 - 5.0 mmol/L Chloride 100 98 - 107 mmol/L CO2 28 22 - 31 mmol/L Anion Gap 13 5 - 15 mmol/L Calcium 10.0 8.5 - 10.5 mg/dL Total Protein 7.1 6.1 - 8.0 gm/dL Albumin 4.6 3.2 - 5.2 gm/dL AST 33 (*) 0 - 30 unit/L ALT 41 (*) 0 - 30 unit/L Alk Phos 111 (*) 40 - 104 unit/L Total Bilirubin 0.8 0.2 - 1.3 mg/dL Bili, Direct 0.1 0.0 - 0.3 mg/dL Estimated GFR >60 >=60 LACTATE DEHYDROGENASE Result Value Ref Range LDH 219 110 - 220 unit/L Confirm NPO status: Yes, Date and Time of last intake: 0 last evening History of anesthetic complications: No Current medications reviewed: Yes Allergies reviewed: Yes Alcohol use: wine Date and Time of last drink: Tuesday evening Drug use: none Sedation Plan: moderate (conscious sedation) The sedation plan, its benefits and risks, and alternatives were discussed with the patient. The planned procedure, its benefits and risks, and alternatives were discussed with the patient. The patient consented to the procedure. Discharge to: Home with boyfriend. documented in this encounter Procedure Notes * Michelle Kemp APRN - 09/02/2014 3:22 PM EDTProcedure(s): BONE MARROW ASPIRATION W BIOPSY Pre-Procedure Diagnose(s): Lymphoma Bone Marrow Biopsy and Aspiration Procedure Note Date/Time of Procedure: 09/02/2014 Procedure: Bone Marrow Biopsy & Aspirate, Unilateral/ Proceduralist: Michelle Kemp APRN DIAGNOSIS: NHL - staging Pre-Procedure: (x) Pt and family educated about bone marrow biopsy and aspiration. (x) Consent signed (scanned into pt's chart) (x) CBC drawn within 3 days. (x) Medications/Allergies/Problem List reviewed Prior to start of procedure the following is verified in a Time Out: (x) Patient identity (x) Planned procedure (x) Safety concerns IV ACCESS: Port PAIN INTERVENTION: Conscious sedation Sterile Condition: Chlorohexidine used to sterilize the area. Sterile drapes used to create a sterile field. Local Anesthesia: 1% Lidocaine = 20 cc PROCEDURE: A bone marrow biopsy and aspiration was performed on the left posterior iliac crest . Tegaderm dressing placed and pressure applied to site(s) for 30 minutes following the procedure. Estimated Blood Loss: Minimal Complications: None POST INTERVENTION PAIN ASSESSMENT: Location: Posterior iliac crest Intensity: Mild Patient response to intervention: Tolerated well. IV DISCONTINUED: Yes Follow-up: Pt and family educated about bone marrow site care. Written and verbal instructions for site care given to patient. Pt will return to clinic for follow-up as scheduled. Michelle Kemp APRN I documented in this encounter Plan of Treatment Upcoming Encounters Date Type Department Care Team (Late st Contact Info) Description 12/07/2023 12:00 PM EDT Office Visit Dermatology at [facility] [address] [place] [address] Juan F Chappell MD [facility] DR RANDEE [place] [address] documented as of this encounter Procedures Procedure Name Priority Date/Time Associated Diagnosis Comments CHROMO REPORT ACQUIRED Routine 5 4:29 PM EDT IMMUNOPHENOTYPING FLOW CYTOMETRY (BLOOD) Routine 09/02/2014 1:30 PM EDT BONE MARROW FLOW CYTOMETRY REPORT Routine 09/02/2014 1:30 PM EDT BONE MARROW FINAL REPORT Routine 015 1:30 PM EDT IRON STAIN, BONE MARROW Routine 09/03/19 15 1:30 PM EDT BONE MARROW PANEL ([facility]/CGP/APD) Routine 09/02/2014 1:30 PM EDT ([facility] MS[facility]G) BONE MARROW BIOPSY; DIAGNOSTIC (WRVU 1.28) 09/02/2014 1:15 PM EDT Diffuse Large B-cell Lymphoma ([facility] MSURG) BONE MARROW ASP PERFORMED W/BX THRU BX INCISION (WRVU 0.16) 09/02/2014 1:15 PM EDT Diffuse Large B-cell Lymphoma ([facility] MSURG)BONE MARROW ASP PERFORMED W/BX THRU BX INCISION Routine 09/02/2014 11:13 AM EDT ([facility]) BONE MARROW BIOPSY; DIAGNOSTIC Routine 09/02/2014 11:13 AM EDT documented in this encounter Results * chromo report acquired (09/02/2014 4:29 PM EDT) [facility] Cytogenetics Acquired Report Final Report [id number] ---Clinical Information--- Indication for Study: Lymphoma Specimen: ? Bone Marrow Accession: ?[id number] Collection Date/Time: 09/02/2014 13:30 Received Date/Time: ?? 09/03/2014 12:47 ---Interpretati on--- Normal karyotype ---Preparation- -- 24hr, 48hr, B-cell mitogen stim cultures Banding Method: ??G-banding Banding Level: 350-400 bands ---Analysis--- Total Cultures Analyzed: ??2 Total Metaphase Cells Counted: ??23 Total Metaphase Cells Analyzed: ??22 Total Metaphase Cells Karyotyped: ??3 ---Karyotype--- 46,XX[20] ---Result Summary--- Cytogenetic analysis of the unstimulated and B-cell mitogen-stimula heriberto bone marrow preparations revealed a normal female karyotype of 46,XX. No clonal abnormalities were observed. 09.17.14 (Electronic Signature) Verified By: Rajeev MANN, Ph.D., [facility] Hospitaling Director, Cytogenetics [facility] COREAS 09/02/2014 4:29 PM EDT Kimberly Velez MD HEMATOLOGY ORDER [facility] * Bone Marrow Final Report (09/02/2014 1:30 PM EDT) Final Diagnosis [id number] ? Location: [facility] The signing pathologist has (i) examined the relevant preparation(s) for the specimen(s) and (ii) rendered or confirmed the diagnosis(es). . ?Pathology Bone Marrow Final Report Clinical Information Specimen: ? Bone marrow aspirate and biopsy, Left Clinical Diagnosis: ? 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 Staging Peripheral Smear WBC 4.5K/ul; RBC 3.5x10 ??6/ul; Hgb 11.7; MCV 94.9; RDW 12.5; PLT 165K/ul There is slight anemia with slight anisopoikilocytosis with elliptocytes, dacrocytes, rare microcytes seen. ??The granulocytes and platelets are morphologically unremarkable. Bone Marrow Aspirate The bone marrow aspirate is adequate. ??It is cellular with granulocyte:erythroid ratio of 2:1. ??Erythroid precursors show normoblastic maturation. ??Granulocytic precursors show normal maturation. ??Megakaryocytes are normal in number and morphology. ??Lymphocytes are normal. ??There is a slight increase in small mature lymphocytes with an occasional rare intermediate form seen. ??This likely represents a lymphoid aggregate. ??Plasma cells are not increased. ??Iron stain performed and shows that iron stores are decreased and distributed in macrophages. ??No ringed sideroblasts are seen. Differential Neutrophils/bands 34%, Lymphocytes 5%, Monocytes 0%, Eosinophils 5%, Basophils 0%, Metamyelocytes 6%, Myelocytes 12%, Promyelocytes 3%, Blasts 1%, Erythroid precursors 31%, Plasma cells 2%. Bone Marrow Biopsy and/or Clot The adequate decalcified bone marrow biopsy is slightly hypercellular (50%). ??The erythroid precursors are numerically normal to slightly increased. ??The granulocytic precursors are numerically normal to slightly increased with normal maturation. ??Megakaryocytes are normal in number and morphology. ??A small intertrabecular perivascular lymphoid aggregate containing polymorphous distribution of lymphocytes, occasional histiocytes is present. ??Plasma cells are not increased. ??Granulomas are not identified. ??Bony spicules appear normal for age. Diagnosis 1. ??DLBCL, low grade in bone marrow, by history. 2. ??Slightly hypercellular marrow with maturing trilineage hematopoiesis. Small lymphoid aggregate, likely reactive. No large cell lymphoma seen. ??See Comment. 09/03/14 [facility] 09/04/14 Verified by: ? Allison MANN, Dick ?Hematopathologist ?(Electronic Signature) The attending pathologist whose signature appears on this report has reviewed all diagnostic slides and has edited the gross and/or microscopic portion of the report in rendering the final pathologic diagnosis. . Comment Flow analysis supports the above findings. ??Previous bone marrow, BM-, is reviewed. ? Pathology Flow Cytometry Report Clinical Information discordant lymphoma Preparation FCM: [id number] [id number] Markers Cells for immunophenotypic analysis were derived from bone marrow. ??CD45 vs side scatter gating was utilized to identify a lymphoid analysis region that comprises approximately 6% of all cells. The following markers were assesed: CD2, CD3, CD4, CD5, CD7, CD8, CD10, CD19, CD45, CD56, kappa light chain and lambda light chain. Interpretation Blasts based on CD45 expression and orthogonal light scatter, are not increased. CD19 positive B-lymphocytes are too few, which precludes further delineation by Ig light chains. ??The T-cells are an admixture of CD4+ and CD8+ T lymphocytes (ratio of 2.2). No loss or atypical intensity distributions are seen for any bunch T antigen (CD2, 3, 4+8, 5, 7). There is no increase in NX28-txbqdcsk/CD3-neg NK cells. ? Diagnosis: ?? No significant B-cell population or phenotypically abnormal T-cell population or increase in blasts ??is detected. 09/03/14 [facility] 09/04/14 Verified by: ? Dick Cooper MD ?Hematopathologist ?(Electronic Signature) Comment ? Flow analysis is an ancillary study. A definite diagnosis requires correlation with the morphologic features of this process and if necessary, correlation with other ancillary studies like immunohistochemistry, enzyme cytochemistry and/or cyto/ molecular genetics. ? This test was developed and its performance characteristics determined by the Clinical Flow Cytometry Laboratory at [facility]. It has not been cleared or [...] to perform high complexity clinical laboratory testing. 09/04/2014 2:58 PM EDT [facility] BONE MARROW STRUCTURE / Unknown 09/02/2014 1:30 PM EDT 09/02/2014 1:30 PM EDT Kimberly Velez MD PATHOLOGY/CYTOLO GY ORDERABLES Performing Organization Address [facility]/State/ZIP Co de Phone Number [facility] [place] [address] * Bone Marrow Flow Cytometry Report (09/02/2014 1:30 PM EDT) Bone Marrow Flow Cytometry Report ? [facility] ? Provider: ?? KIMBERLY VELEZ Pt. Name: ?? ARTEMJONNYMYRIAM ?M ? Acc #: ?[id number] ? Pt. ? Col Date: ?? 09/02/2014 ? /Sex: ?1950,(63 years),Female ? Rec Date: ?? 09/02/2014 ? LOC: ?[facility] ? ANALYTICAL CELL PATHOLOGY ? ---Clinical Information--- ? discordant lymphoma ? ---Preparation--- ? FCM: [id number] ? [id number] ? ---Markers--- ? Cells for immunophenotypic analysis were derived from bone marrow. ??CD45 vs ? side scatter gating was utilized to identify a lymphoid analysis region ? that comprises approximately 6% of all cells. ? The following markers were assesed: CD2, CD3, CD4, CD5, CD7, CD8, CD10, ? CD19, CD45, CD56, kappa light chain and lambda light chain. ? ---Interpretation--- ? Blasts based on CD45 expression and orthogonal light scatter, are not ? increased. CD19 positive B-lymphocytes are too few, which precludes further ? delineation by Ig light chains. ??The T-cells are an admixture of CD4+ and ? CD8+ T lymphocytes (ratio of 2.2). No loss or atypical intensity ? distributions are seen for any bunch T antigen (CD2, 3, 4+8, 5, 7). There is ? no increase in RZ26-robvcoim/CD3-ne g NK cells. ?Diagnosis: ?? No significant B-cell population or phenotypically ? abnormal T-cell population or increase in blasts ??is detected. ? 09/03/14 ? [facility] ? 09/04/14 Verified by: ? Dick Cooper MD ? Hematopathologist ? (Electronic Signature) ? ---Comment--- ?Flow analysis is an ancillary study. A definite diagnosis requires ? correlation with the morphologic features of this process and if necessary, ? correlation with other ancillary studies like immunohistochemistry , enzyme ? cytochemistry and/or cyto/molecular genetics. ?This test was developed and its performance characteristics determined ? by the Clinical Flow Cytometry Laboratory at [facility] ? Center. It has not been cleared or approved by the U.S. Food and Drug ? Administration. ??The FDA has determined ? [facility] ? Provider: ?? KIMBERLY VELEZ Pt. Name: ?? MYRIAM VIVAS ?M ? Acc #: ?[id number] ? Pt. ? Col Date: ?? 09/02/2014 ? /Sex: ?1950,(63 years),Female ? Rec Date: ?? 09/02/2014 ? LOC: ?[facility] ? ANALYTICAL CELL PATHOLOGY ? that such clearance or approval is not necessary. ??This test is used for ? clinical purposes. ??It should not be regarded as investigational or for ? research. ??This laboratory is certified under the Clinical Laboratory ? Improvement Act of 1988 (CLIA) as qualified to perform high complexity ? clinical laboratory testing. [facility] COREAS 09/02/2014 1:30 PM EDT Kimberly Velez MD PATHOLOGY/CYTOLO GY ORDERABLES Performing Organization Address [facility] de Phone Number GIBRAN COREAS * Immunophenotyping Flow Cytometry (09/02/2014 1:30 PM EDT) Immunophenotyping Flow See Comment GIBRAN COREAS Comment: When completed by the Pathologist, the Flow Cytometry Report ([id number]) will display under the Pathology Results section within eDH. Bone marrow specimen (specimen) 09/02/2014 1:30 PM EDT 09/02/2014 1:54 PM EDT Narrative Resulting Agency Comment Spec In Lab Kimberly Velez MD HEMATOLOGY ORDER AYO Performing Organization Address [facility] de Phone Number GIBRAN COREAS * Iron Stain, Bone Marrow (09/02/2014 1:30 PM EDT) Bone Marrow Iron Stain See Comment GIBRAN COREAS Comment:See Bone Marrow Repo rt [id number] under Hematopathology Reports. Bone marrow specimen (specimen) 09/02/2014 1:30 PM EDT 09/02/2014 1:55 PM EDT Narrative Resulting Agency Comment Spec In Lab Kimberly Velez MD HEMATOLOGY ORDER AYO [facility] COREAS documented in this encounter Visit Diagnoses Not on filedocumented in this encounter Administered Medications Inactive Administered Medications - up to 3 most recent administrations Medication Order MAR Action Action Date Dose Rate Site fentaNYL 50 mcg/mL multi-dose injection 25-50 mcg, Intravenous, EVERY 5 MIN PRN, Starting on Tue09/02/14 at 1115, Until Tue09/02/14 at 1713, Pain, Hold for respiratory rate less than 8 breaths per minute. (maximum dose 200 mcg), Intra-Operative (Intra-Procedure), Routine Given 09/02/2014 1:20 PM EDT 25 mcg midazolam (PF) (VERSED) 1 mg/mL multi-dose injection 0.5-2 mg 0.5-2 mg, Intravenous, EVERY 5 MIN PRN, Starting on Tue09/02/14 at 1115, Until Tue09/02/14 at 1713, Sleep, Anxiety, Hold for delirium/agitation. (Maximum dose 5 mg)., Intra-Operative (Intra-Procedure), Routine Given 09/02/2014 1:21 PM EDT 1 mg Given 09/02/2014 1:17 PM EDT 2 mg sodium chloride 0.9% infusion 100 mL/hr, Intravenous, ONCE, 1 dose, On Tue09/02/14 at 1145, Day of Surgery (Day of Procedure) New Bag 09/02/2014 12:16 PM EDT 100 mL/hr 100 mL/hr documented in this encounter Active and Recently Administered Medications Times are shown in EDT. Scheduled Medication Order 08/31/2014 09/01/2014 09/02/2014 sodium chloride 0.9% infusion (COMPLETED) 100 mL/hr, Intravenous, ONCE, 1 dose, On Tue09/02/14 at 1145, Day of Surgery (Day of Procedure) 1216 (New Bag - Prov ider: Christen Powell RN) PRN Medication Order 08/31/2014 09/01/2014 09/02/2014 fentaNYL 50 mcg/mL multi-dose injection (CANCELED) 25-50 mcg, Intravenous, EVERY 5 MIN PRN, Starting on Tue09/02/14 at 1115, Until Tue09/02/14 at 1713, Pain, Hold for respiratory rate less than 8 breaths per minute. (maximum dose 200 mcg), Intra-Operative (Intra-Procedure), Routine 1320 (Given - Provid er: Christen Powell RN) midazolam (PF) (VERSED) 1 mg/mL multi-dose injection 0.5-2 mg (CANCELED) 0.5-2 mg, Intravenous, EVERY 5 MIN PRN, Starting on Tue09/02/14 at 1115, Until Tue09/02/14 at 1713, Sleep, Anxiety, Hold for delirium/agitation. (Maximum dose 5 mg)., Intra-Operative (Intra-Procedure), Routine 1317 (Given - Provid er: Christen Powell RN)1321 (Given - Provider: Christen Powell RN) documented in this encounter Care Teams Corporate Giving Manager Relationship Specialty Start Date End Date Maine Dunn PA PCP - General 04/08/14 02/13/15 documented as of this encounter
--- OUTSIDE RECORDS SUMMARY | 2023-10-28 00:48 | XMS_ITS | Encounter Summary ---
Author Organization [facility] Address [facility] [place] [address] Care Team Providers Care Coat Finisher Name Role Phone Maine Dunn Primary Care Provider [phone] Reason for Visit * Reason Comments Chemotherapy RCHOP cycle 6, Stefany col #[id number] Arm B Encounter Details Date Type Department Care Team (Late st Contact Info) Description 07/24/2014 10:00 AM EDT Infusion Hematology Oncology at [address] [address] CLINIC, DR MARINA HEM/ONC Lymphoma Social History Tobacco Use Types Packs/Day Years Used Date Smoking Tobacco: Never Sex and Gender Information Value Date Recorded Sex Assigned at Not on file Gender Identity Not on file Sexual Orientation Not on file documented as of this encounter Last Filed Vital Signs Vital Sign Reading Time Taken Comments Blood Pressure 94/48 07/24/2014 12:00 PM EDT Pulse 72 07/24/2014 12:00 PM EDT Temperature 36.7 ??C (98.1 ??F) 07/24/2014 12:00 PM E DT Respiratory Rate 18 07/24/2014 12:00 PM EDT Oxygen Saturation 98% 07/24/2014 12:00 PM EDT Inhaled Oxygen Concentration - - Weight - - Height - - Body Mass Index - - documented in this encounter Progress Notes * Tenisha Rea RN - 07/24/2014 1:55 PM EDT INFUSION THERAPY ADMINISTRATION NOTES TIME TREATMENT STARTED: 944 TIME TREATMENT ENDED: 1349 DIAGNOSIS: Lymphoma PROTOCOL: #[id number] Arm B CYCLE #: 6 REASON FOR VISIT: RCHOP SUBJECTIVE Myriam Vivas offers no complaints. She has prednisone at home and verbalizes understanding to take 170mg daily x 4 days. OBJECTIVE LAB DATA: Labs from 07/22/14 at [facility] reviewed and found adequate for treatment. WBC 3.96, HGB 10.3, Platelet 369K, ANC 2.58 IF PAIN IS >5, INTERVENTION AND EFFECTIVENESS: n/a REACTIONS (DESCRIPTION, TIME, INTERVENTION AND EFFECTIVENESS) none ASSESSMENT Myriam Vivas was awake, alert and he tolerated treatment well. Vital signs checked per protocol. PLAN Return to clinic tomorrow for neulasta injection documented in this encounter Plan of Treatment Upcoming Encounters Date Type Department Care Team (Late st Contact Info) Description 12/07/2023 12:00 PM EDT Office Visit Dermatology at [address] [place] [address] Juan F Chappell MD [facility] DR RANDEE [place] [address] documented as of this encounter Visit Diagnoses Diagnosis Lymphoma Other malignant lymphomas, unspecified site, extranodal and solid organ sites documented in this encounter Administered Medications Inactive Administered Medications - up to 3 most recent administrations Medication Order MAR Action Action Date Dose Rate Site acetaminophen (TYLENOL) tablet 650 mg 650 mg, Oral, ONCE, 1 dose, On Tue07/24/14 at 1000, 30 to 60 minutes prior to riTUXimab. Maximum dose of acetaminophen is 4000 mg from all sources in 24 hours., Routine Given 07/24/2014 10:23 AM EDT 650 mg cyclophosphamide (CYTOXAN) 1,300 mg in dextrose 5% 315 mL chemo infusion 1,300 mg, Intravenous, ONCE, 1 dose, On Tue07/24/14 at 1000, Administer over 30 Minutes New Bag 07/24/2014 1:10 PM EDT 1,300 mg 630 mL/hr diphenhydrAMINE (BENADRYL) capsule 25 mg 25 mg, Oral, ONCE, 1 dose, On Tue07/24/14 at 1000, 30 to 60 minutes prior to riTUXimab, Routine Given 07/24/2014 10:23 AM EDT 25 mg DOXOrubicin (ADRIAMYCIN) chemo injection 85 mg 85 mg, Intravenous, ONCE, 1 dose, On Tue07/24/14 at 1000, Administer over 6 Minutes, Total Dose 85 mg = 42.5 mL divided into 2 syringes. Each syringe contains 42.5 mg = 21.25 mL. Infuse each syringe over a minimum of 3 minutes. Vesicant/irritant. Avoid extravasation. Given 07/24/2014 12:53 PM EDT 85 mg 425 mL/hr ondansetron (ZOFRAN) tablet 16 mg 16 mg, Oral, ONCE, 1 dose, On Tue07/24/14 at 1000, Pre-chemotherapy on day 1, Routine Given 07/24/2014 10:23 AM EDT 16 mg predniSONE (DELTASONE) tablet 170 mg 170 mg, Oral, ONCE, 1 dose, On Tue07/24/14 at 1000, Total dose = 170 mg. Administer 30 to 60 minutes prior to riTUXimab on day 1., Routine Given 07/24/2014 10:23 AM EDT 170 mg riTUXimab (RITUXAN) 650 mg in sodium chloride 0.9% 325 mL infusion 650 mg, Intravenous, ONCE, 1 dose, On Tue07/24/14 at 1000, Round medication dose to the nearest 100 mg: Keep dose as calculated (DO NOT round), Patient is a candidate for rapid infusion riTUXimab? No New Bag 07/24/2014 11:11 AM EDT 650 mg sodium chloride 0.9% infusion 1,000 mL, at 125 mL/hr, Intravenous, ONCE, 1 dose, On Tue07/24/14 at 1000, While in clinic. New Bag 07/24/2014 10:05 AM EDT 1,000 mLs 125 mL/hr vinCRIStine (ONCOVIN) chemo injection 2 mg 2 mg, Intravenous, ONCE, 1 dose, On Tue07/24/14 at 1000, Administer over 2 Minutes, FOR IV USE ONLY. FATAL IF GIVEN BY OTHER ROUTES. Vesicant/irritant Avoid extravasation Given 07/24/2014 1:05 PM EDT 2 mg 60 mL/hr documented in this encounter Care Teams Coat Finisher Relationship Specialty Start Date End Date Maine Dunn PA PCP - General 04/08/14 02/13/15 documented as of this encounter
--- OUTSIDE RECORDS SUMMARY | 2023-10-28 00:48 | XMS_ITS | Encounter Summary ---
Author Organization [facility] Address [facility] [place] [address] Care Team Providers Care Medical Appliance Maker Name Role Phone Maine Dunn Primary Care Provider [phone] Reason for Visit * Reason Onset Date Comments Other 07/19/2014 SSI Encounter Details Date Type Department Care Team (Late st Contact Info) Description 07/19/2014 [place] [address] Myrna Alas, [facility] [place] [address] Other (SSI) Social History Tobacco Use Types Packs/Day Years Used Date Smoking Tobacco: Never Sex and Gender Information Value Date Recorded Sex Assigned at Not on file Gender Identity Not on file Sexual Orientation Not on file documented as of this encounter Miscellaneous Notes * Telephone Encounter - Myrna Alas, DIGITAL IMAGER - 07/19/2014 12:09 PM EDT Pt is set up for a phone interview for SSI on 08/08. Pt receives disability through work and they are requiring her to apply for SSI as well. Explained to pt that she will be completing releases and aROI will be sent to [facility] and [facility] which will have all that information. Advised her to havethe name of her primary oncologist on hand and that she doesn't need to justin down the rest of her records. Pt knows to call myself or Myriam LY[place] for any additional assistance. documented in this encounter Plan of Treatment Upcoming Encounters Date Type Department Care Team (Late st Contact Info) Description 12/07/2023 12:00 PM EDT Office Visit Dermatology at [facility] [address] [place] [address] Juan F Chappell MD [facility] DR RANDEE [place] [address] documented as of this encounter Visit Diagnoses Not on filedocumented in this encounter Care Teams Medical Appliance Maker Relationship Specialty Start Date End Date Maine Dunn PA PCP - General 04/08/14 02/13/15 documented as of this encounter
--- OUTSIDE RECORDS SUMMARY | 2023-10-28 00:48 | XMS_ITS | Encounter Summary ---
Author Organization [facility] Address [facility] [place] [address] Care Team Providers Care Citizenship Instructor Name Role Phone Maine Dunn Primary Care Provider [phone] Reason for Visit * Reason Onset Date Comments Medication Refill 08/05/2014 lorazepam Encounter Details Date Type Department Care Team (Late st Contact Info) Description 08/05/2014 Telephone Hematology/Oncology at [address] [address] Tenisha Rea, electronics parts sales representative Refill (lorazepam) Social History Tobacco Use Types Packs/Day Years Used Date Smoking Tobacco: Never Sex and Gender Information Value Date Recorded Sex Assigned at Not on file Gender Identity Not on file Sexual Orientation Not on file documented as of this encounter Miscellaneous Notes * Telephone Encounter - Tenisha Rea, RN - 08/05/2014 9:27 AM EDT Myriam Olivaresernestina called and is asking for a new script for lorazepam. She has 0.5 mg tablets and she is taking one in am, one mid day and two at night to help her sleep. She has 11 days worth left, but [place]. She recognizes that she needs to start decreasing use at some point but asks if she can wait until after her trip to start that. She sees Dr. Gupta again on 08/03 in [place]. documented in this encounter Plan of Treatment Upcoming Encounters Date Type Department Care Team (Late st Contact Info) Description 12/07/2023 12:00 PM EDT Office Visit Dermatology at [facility] [address] [place] [address] Juan F Chappell MD [facility] DR [place] [address] documented as of this encounter Visit Diagnoses Not on filedocumented in this encounter Care Teams Citizenship Instructor Relationship Specialty Start Date End Date Maine Dunn PA PCP - General 04/08/14 02/13/15 documented as of this encounter
--- OUTSIDE RECORDS SUMMARY | 2023-10-28 00:48 | XMS_ITS | Encounter Summary ---
Author Organization [facility] Address [facility] [place] [address] Care Team Providers Care Supervisor Cytology Name Role Phone Maine Dunn Primary Care Provider [phone] Encounter Details Date Type Department Care Team (Late Contact Info) Description 07/12/2014 Orders Only Hematology Oncology at [address] [phone] Yuliet Chavez RN DLBCL (diffuse large B cell lymphoma) [...] EDT Office Visit Dermatology at [facility] [address] [place] [address] Juan F Chappell MD [facility] DR R[place] [address] documented as of this encounter Results * PET/CT STANDARD (Skull base to Mid-thigh) (09/02/2014 4:18 PM EDT) Anatomical Region Laterality Modality Other 09/02/2014 4:18 PM EDT Addenda Addendum by Lazaro Thompson MD on 03/20/2015 9:08 AM EST As requested, bidimensional measurements were made as follows ??and compared to the prior study of June 10, 2014: Left axillary lymph node Current study CT slice 44: ??20 x [address] slice 53: ??26 x 13 mm Right paratracheal lymph node conglomerate Current study CT slice 47: ??44 x [address] slice 52: ??48 x 32 mm Left supraclavicular lymph node Current study: ??Not seen Prior study CT slice 29: ??8 x 5 mm Impressions 09/03/2014 1:20 PM EDT IMPRESSION: 1. ??Partial but significant improvement of hypermetabolic right paratracheal conglomerate ammon mass consistent with lymphoma. 2. ??Slight interval decrease in size of non-FDG avid left axillary lymph nodes most likely representing treated lymphoma. 3. ??No other sites of active lymphoma. Thank you for referring this patient to [facility]. This report was reviewed by Lazaro Thompson at 09/03/2014 1:15 PM Film and interpretation reviewed by the attending Narrative 09/03/2014 1:20 PM EDT EXAMINATION: PET/CT STANDARD (Skull base to Mid-thigh) CLINICAL HISTORY: diffuse large B cell lymphoma TECHNIQUE: Procedure: Following IV injection of 69-pwxhzl-0-deoxyglucose (FDG) a standard uptake of approximately 60 [...] neck and visualized lower head. ? CHEST: There has been significant decrease in size and activity of the right paratracheal ammon mass. Note made of multiple non-FDG avid enlarged left axillary lymph nodes, which appear slightly diminished in size when compared to prior. Right-sided MediPort with tip at the cavoatrial junction. ABDOMEN/PELVIS: Normal activity in all soft tissue regions. ? SKELETON/EXTREMITIES: Normal activity in all regions of the axial and ??visualized appendicular skeleton. ? Procedure Note Lazaro Thompson MD - 09/03/2014 EXAMINATION: PET/CT STANDARD (Skull base to Mid-thigh) CLINICAL HISTORY: diffuse large B cell lymphoma TECHNIQUE: Procedure: Following IV injection of 50-oshydh-2-deoxyglucose(FDG) a standard uptake of approximately 60 minutes, a noncontrast CT scanfollowed by a PET scan were acquired from the base of the skull to mid thighs. Thenoncontrast CT was used for anatomic localization and photon attenuation correction ofthe PET scan Blood glucose level: 88 (mg/dL) FDG dose: 4.3 mCi COMPARISON: 06/10/2014 FINDINGS: HEAD/NECK: Normal activity in all soft tissue regions of the neck and visualizedlower head. CHEST: There has been significant decrease in size and activity of the right paratracheal ammon mass. Note made of multiple non-FDG avid enlargedleft axillary lymph nodes, which appear slightly diminished in size whencompared to prior. Right-sided MediPort with tip at the cavoatrial junction. ABDOMEN/PELVIS: Normal activity in all soft tissue regions. SKELETON/EXTREMITIES: Normal activity in all regions of the axial and visualized appendicular skeleton. IMPRESSION IMPRESSION: 1. Partial but significant improvement of hypermetabolic rightparatracheal conglomerate ammon mass consistent with lymphoma. 2. Slight interval decrease in size of non-FDG avid left axillary lymphnodes most likely representing treated lymphoma. 3. No other sites of active lymphoma. Thank you for referring this patient to [facility]. This report was reviewed by Lazaro Thompson at 09/03/2014 1:15 PM Film and interpretation reviewed by the attending Kimberly Mondragon MD IMG PET ORDERABL ES documented in this encounter Visit Diagnoses Diagnosis DLBCL (diffuse large B cell lymphoma) Other malignant lymphomas, unspecified site, extranodal and solid organ sites DLBCL (diffuse large B cell lymphoma) Other malignant lymphomas, unspecified site, extranodal and solid organ sites documented in this encounter Care Teams Supervisor Cytology Relationship Specialty Start Date End Date Maine Dunn PA PCP - General 04/08/14 02/13/15 documented as of this encounter
--- OUTSIDE RECORDS SUMMARY | 2023-10-28 00:48 | XMS_ITS | Encounter Summary ---
Author Organization [facility]ly [facility] Address [facility] [place] [address] Care Team Providers Care Navy Material Inspector Name Role Phone Maine Dunn Primary Care Provider [phone] Reason for Visit * Reason Comments Lymphoma ht/wt check Encounter Details Date Type Department Care Team (Late st Contact Info) Description 07/22/2014 11:00 AM EDT Infusion Hematology Oncology at [address] [phone] Sal Ward MD [address] [place] [id number] Lymphoma Discharge Disposition: Home Social History Tobacco [...] - Inhaled Oxygen Concentration - - Weight 67.6 kg (149 lb) 07/22/2014 9:00 AM EDT Height 158.5 cm (5' 2.4) 07/22/2014 9:00 AM EDT Body Mass Index 26.9 07/22/2014 9:00 AM EDT documented in this encounter Progress Notes * Carrie Rodriguez - 07/22/2014 10:51 AM EDT Patient in for height & weight check for study protocol [id number] Ht 158.5 cm Wt 149 lbs Myriam is feeling more tired after this last cycle, glad to be finishing up this week! documented in this encounter Plan of Treatment Upcoming Encounters Date Type Department Care Team (Late st Contact Info) Description 12/07/2023 12:00 PM EDT Office Visit Dermatology at [address] [place] [address] Juan F Chappell MD [facility] DR RANDEE [place] [address] documented as of this encounter Procedures Procedure Name Priority Date/Time Associated Diagnosis Comments CHEMOTHERAPY SCAN 07/24/2014 12:00 AM EDT documented in this encounter Results * SCAN DOC: CHEMOTHERAPY (07/24/2014 12:00 AM EDT) Scanning Provider MEDIA MGR SCAN EXT O RDR/RSLT documented in this encounter Visit Diagnoses Diagnosis Lymphoma Other malignant lymphomas, unspecified site, extranodal and solid organ sites documented in this encounter Care Teams Navy Material Inspector Relationship Specialty Start Date End Date Maine Dunn PA PCP - General 04/08/14 02/13/15 documented as of this encounter
--- OUTSIDE RECORDS SUMMARY | 2023-10-28 00:48 | XMS_ITS | Encounter Summary ---
Author Organization [facility] Address [facility] [address] Care Team Providers Care Water Pollution Control Technician Name Role Phone Maine Dunn Primary Care Provider [phone] Encounter Details Date Type Department Care Team (Late st Contact Info) Description 06/12/2014 9:30 AM EDT Follow-Up Hematology/Oncology at [address] [phone] Kimberly Mondragon MD [facility] [address] [place] [address] Lymphoma Discharge Disposition: Home Social History Tobacco Use Types Packs/Day Years Used Date Smoking Tobacco: Never Sex and Gender Information Value Date Recorded Sex Assigned at Not on file Gender Identity Not on file Sexual Orientation Not on file documented as of this encounter Last Filed Vital Signs Vital Sign Reading Time Taken Comments Blood Pressure 112/74 06/12/2014 9:16 AM EDT Pulse 87 06/12/2014 9:16 AM EDT Temperature 36.7 ??C (98.1 ??F) 06/12/2014 9:16 AM ED T Respiratory Rate 18 06/12/2014 9:16 AM EDT Oxygen Saturation 100% 06/12/2014 9:16 AM EDT Inhaled Oxygen Concentration - - Weight 66.9 kg (147 lb 8 oz) 06/12/2014 9:16 AM EDT Height 159 cm (5' 2.6) 06/12/2014 9:16 AM EDT Body Mass Index 26.47 06/12/2014 9:16 AM EDT documented in this encounter Progress Notes * Kimberly Mondragon MD - 06/12/2014 9:26 AM EDT . Hematology Clinic [place] [address] FOLLOW-UP PATIENT EVALUATION PROBLEM LIST: Patient Active [...] of DLBCL. She did pretty well with C#3 RCHOP on protocol. She had more nausea with this cycle. Used zofran. Lasted 2.5 weeks. Uses ativan at night. Has had a lot going on at home with other family members. Work is stressful. Relationship is good. She took a trip to [facility]. + constipation - using colace , Senna, smooth tea. No neuropathy. Today we discussed strategies formanaging the constipation. Took her prednisone as ordered. Not drinking enough and she feels like she cannot get more in. Had PET scan With good CA - reviewed images with her - pls see below. ROS Energy level:improving Pain: No Appetite:eating well but different foods than her normal Fevers/chills/sweats:No Bruising/bleeding/melena:No Recent infections:No HEENT: negative Nausea/vomiting/diarrhea/constipation: nausea at home SOB/HAUSER/chest pain:No Change in adenopathy or other masses:No Unexpected weight loss or gain: + wt gain Skin rashes or petechiae:No Musculoskeletal complaints:No Extremities: Negative upper and lower bilaterally Neurologic symptoms: see above Mood: Sig improvement in anxiety Sleep: Using 1mg ativan to help w/ sleep. MEDS: Outpatient Prescriptions Marked as Taking for the 06/12/14 encounter (Follow-Up) with Kimberly Mondragon MD Medication Sig Dispense Refill ??? LORazepam (ATIVAN) 0.5 mg Tablet Take 1-2 tablets by mouth every 6 hours as needed for Anxiety for up to 30 days. 60 tablet 3 ??? docusate sodium (COLACE) 100 mg Capsule Take 100 mg by mouth 2 times daily. ??? senna (SENOKOT) 8.6 mg Tablet Take 1 tablet by mouth daily. ??? polyethylene glycol (MIRALAX) 17 gram Powder in Packet Take 17 g by mouth daily. ??? acyclovir (ZOVIRAX) 400 mg Tablet Take 1 tablet by mouth 2 times daily. 60 tablet 3 ??? UNABLE TO FIND 450 mg. Med Name: Tumeric ??? [place]-3 Fatty Acids-Vitamin E (FISH OIL) 1,000 mg Capsule Take by mouth. ??? Calcium 500 mg Tablet Take by mouth. ??? Cholecalciferol, Vitamin D3, (VITAMIN D-3) 2,000 unit Capsule Take 1,000 Units by mouth. ??? escitalopram (LEXAPRO) 10 mg tablet Allergies: Allergies Allergen Reactions ??? Tegaderm [Transparent Dressings] Other (See Comments) Unsure if actual allergy, please try [id number] Skin tears/rawness INTERIM SOCIAL HISTORY Changes in job, home situation, tobacco or alcohol use: Working 8-15 hours per week PHYSICAL EXAM BP 112/74 Pulse 87 Temp(Src) 36.7 ??C (98.1 ??F) (Oral) Resp 18 Ht 159 cm (5' 2.6) Wt 66.906 kg (147 lb 8 oz) BMI 26.46 kg/m2 SpO2 100% Body surface area is 1.72 meters squared. [...] Recent Results (from the past 72 hour(s)) COMPREHENSIVE METABOLIC PANEL (NON-FASTING) Result Value Ref Range Glucose Lvl 93 60 - 199 mg/dL BUN 18 8 - 18 mg/dL Creatinine 0.75 0.70 - 1.20 mg/dL Sodium 140 135 - 145 mmol/L Potassium 4.4 3.5 - 5.0 mmol/L Chloride 99 98 - 107 mmol/L CO2 29 22 - 31 mmol/L Anion Gap 12 5 - 15 mmol/L Calcium 10.0 8.5 - 10.5 mg/dL Total Protein 6.9 6.1 - 8.0 gm/dL Albumin 4.2 3.2 - 5.2 gm/dL AST 32 (*) 0 - 30 unit/L ALT 44 (*) 0 - 30 unit/L Alk Phos 85 40 - 104 unit/L Total Bilirubin 0.5 0.2 - 1.3 mg/dL Bili, Direct 0.1 0.0 - 0.3 mg/dL Estimated GFR >60 >=60 LACTATE DEHYDROGENASE Result Value Ref Range LDH 231 (*) 110 - 220 unit/L HEMOGRAM Result Value Ref Range WBC 4.8 4.0 - 10.0 x10(3)/mcL RBC 3.58 (*) 3.93 - 5.22 x10(6)/mcL Hemoglobin 11.0 (*) 11.2 - 15.7 gm/dL Hematocrit 32.2 (*) 34.0 - 45.0 % MCV 89.9 79.0 - 94.0 fL MCH 30.7 26.6 - 32.2 pg MCHC 34.2 32.0 - 36.5 gm/dL Platelets 282 145 - 370 x10(3)/mcL RDWSD 54.9 (*) 35.0 - 46.0 fL RDWCV 17.1 (*) 10.9 - 14.4 % MPV 8.8 (*) 9.0 - 12.0 fL DIFFERENTIAL, AUTOMATED Result Value Ref Range Neutrophils % 68.0 Neutr Abs (ANC) 3.27 1.50 - 6.30 x10(3)/mcL Lymphocytes % 18.5 Lymphocytes Abs 0.9 (*) 1.0 - 3.6 x10(3)/mcL Monocytes % 10.8 Monocyte Abs 0.5 0.2 - 1.0 x10(3)/mcL Eosinophils % 0.8 Eosinophils Abs 0.0 0.0 - 0.5 x10(3)/mcL Basophils % 1.5 Basophils Abs 0.1 0.0 - 0.2 x10(3)/mcL Immature Gran % 0.40 [place] Gran Abs 0.02 0.00 - 0.05 x10(3)/mcL POCT GLUCOSE Result Value Ref Range POC Glucose 92 60 - 199 mg/dL RADIOLOGY STUDIES REVIEWED: EXAMINATION: PET/CT STANDARD (Skull base to Mid-thigh) CLINICAL HISTORY: diffuse large B cell lymphoma TECHNIQUE: Procedure: Following IV injection of 29-ykccxj-1-deoxyglucose (FDG) a standard uptake of approximately 60 minutes, a noncontrast CT scan followed by a PET scan were acquired from the base of the skull to mid thighs. The noncontrast CT was used for anatomic localization and photon attenuation correction of the PET scan Blood glucose level: 92 (mg/dL) FDG dose: 10.2 mCi COMPARISON: PET/CT scan 03/28/2014 FINDINGS: HEAD/NECK: Normal activity in all soft tissue regions of the neck and visualized lower head. Interval resolution of metabolic activity with decreased anatomic size of the previously seen left supraclavicular lymph nodes. CHEST: Interval decrease in anatomic size of the right paratracheal ammon conglomerate which now measures 48 x 32 mm. The right paratracheal ammon mass is decreased in intensity remains hypermetabolic with max SUV measuring 6.0 compared to 13.2 on the prior study. No significant activity above mediastinal background seen in the left axilla where there is marked interval decrease in anatomic size of the left axillary lymph nodes with the largest node measuring 2.6 x 1.1 cm (CT axial image 53). No pleural effusion. The central airways are patent. A right-sided Mediport catheter terminates at the atriocaval junction. ABDOMEN/PELVIS: Normal activity in all soft tissue regions. Interval decrease in anatomic size and complete metabolic resolution of the previously seen retroperitoneal and left inguinal lymph nodes. SKELETON/EXTREMITIES: Mild diffuse marrow activity seen throughout the visualized axial and proximal appendicular skeleton consistent with reactive marrow. IMPRESSION IMPRESSION: 1. Overall marked interval improvement, however, residual active lymphoma in the residual right paratracheal ammon mass. 2. No other sites of active lymphoma. ASSESSMENT/PLAN: Myriam is here for f/u appt after C#4 RCHOP on protocol. She did relatively well with C#3. She has insurance ppwk that needs to be in by Tuesday so we worked with [facility] RN to get that resolved today. I reviewed all of her side effects (see HPI) and management of these. Research RN reinforced this as well. Today we primaily dis Heme - will support with neulasta again. Constipation - Much improved. Rash - gone Sleep - using ativan 1mg qhs. Script renewed Anxiety - significantly improved - rare use of ativan during the day - mostly when she has to do work. Feels anxious when she is on pred and ativan helps with that as well. She gets anxious when plans change or she feels like things are not in control The therapist is helping her. Mireillek seems to besupportive and able to help her. Unclear if nausea is a result of her anxiety. Nausea - much more with C#3 than #2 and #1. Discussed whether this might be from her anxiety. She may try more ativan. We can also try aloxi/emend if it continues. RTC in 3 weeks for next cycle. total time: time in counselling: Copy SOPHY FUNES documented in this encounter Plan of Treatment Upcoming Encounters Date Type Department Care Team (Late st Contact Info) Description 12/07/2023 12:00 PM EDT Office Visit Dermatology at [facility] [address] [place] [address] Juan F Chappell MD [facility] DR RANDEE [place] [address] documented as of this encounter Procedures Procedure Name Priority Date/Time Associated Diagnosis Comments CHEMOTHERAPY SCAN 06/12/2014 12:00 AM EDT documented in this encounter Results * SCAN DOC: CHEMOTHERAPY (06/12/2014 12:00 AM EDT) Scanning Provider MEDIA MGR SCAN EXT O RDR/RSLT documented in this encounter Visit Diagnoses Diagnosis Lymphoma Other malignant lymphomas, unspecified site, extranodal and solid organ sites documented in this encounter Care Teams Water Pollution Control Technician Relationship Specialty Start Date End Date Maine Dunn PA PCP - General 04/08/14 02/13/15 documented as of this encounter
--- OUTSIDE RECORDS SUMMARY | 2023-10-28 00:48 | XMS_ITS | Encounter Summary ---
Author Organization [facility] [place] [address] Care Team Providers Care Opticianry Teacher Name Role Phone Maine Dunn Primary Care Provider [phone] Reason for Visit * Reason Onset Date Comments Research 07/16/2014 Encounter Details Date Type Department Care Team (Late Contact Info) Description 07/16/2014 Telephone Hematology/Oncology at [address] [phone] Yuliet Chavez RN Research Social History Tobacco Use Types Packs/Day Years Used Date Smoking Tobacco: Never Sex and Gender Information Value Date Recorded Sex Assigned at Not on file Gender Identity Not on file Sexual Orientation Not on file documented as of this encounter Miscellaneous Notes * Telephone Encounter - Yuliet Chavez RN - 07/16/2014 3:33 PM EDT Message left on identified home answering machine that I will make appts for 07/22/14, to have her labs drawn at [facility] and to have her height and weight checked at the [facility] prior toC6D1 infusion scheduled for 07/24/14. documented in this encounter Plan of Treatment Upcoming Encounters Date Type Department Care Team (Late Contact Info) Description 12/07/2023 12:00 PM EDT Office Visit Dermatology at [facility] [address] [place] [address] Juan F Chappell MD [facility] DR RANDEE [place] [address] documented as of this encounter Visit Diagnoses Not on filedocumented in this encounter Care Teams Opticianry Teacher Relationship Specialty Start Date End Date Maine Dunn PA PCP - General 04/08/14 02/13/15 documented as of this encounter
--- OUTSIDE RECORDS SUMMARY | 2023-10-28 00:48 | XMS_ITS | Encounter Summary ---
[place] [address] Care Team Providers Care Line Tester Name Role Phone Maine Dunn Primary Care Provider [phone] Encounter Details Date Type Department Care Team (Latest Contact Info) Description 09/02/2014 2:22 PM EDT - 09/02/2014 11:59 PM EDT Hospital Encounter [place] [phone] CLINIC, DR PAINTER DLBCL (diffuse large B cell lymphoma) Social [...] mouth every 6 hours as needed. 10/11/2014 [place]-3 Fatty Acids-Vitamin E (FISH OIL) 1,000 mg [...] Dermatology at [facility] [address] [place] [address] Juan F Chappell MD [facility] DR RANDE[place] [address] documented as of this encounter Procedures Procedure Name Priority Date/Time Associated Diagnosis Comments NM PET CT SKULL BASE TO MID-THIGH ([facility]) STAT 09/02/2014 4:18 PM EDT DLBCL (diffuse large B cell lymphoma) documented in this encounter Results * PET/CT [...] Thank you for referring this patient to [facility]. This report was reviewed by Lazaro Thompson at 09/03/2014 1:15 PM Film and interpretation reviewed by the attending Narrative 09/03/2014 1:20 PM EDT EXAMINATION: PET/CT STANDARD (Skull base to Mid-thigh) CLINICAL HISTORY: diffuse large B cell lymphoma TECHNIQUE: Procedure: Following IV injection of 45-dysmiu-6-deoxyglucose (FDG) a standard uptake of approximately 60 [...] lymphoma TECHNIQUE: Procedure: Following IV injection of 41-zzcgsk-5-deoxyglucose(FDG) a standard uptake of approximately 60 minutes, [...] Thank you for referring this patient to [facility]. This report was reviewed by Lazaro Thompson at 09/03/2014 1:15 PM Film and interpretation reviewed by the attending Kimberly Mondragon MD IMG PET ORDERABL ES documented in this encounter Visit Diagnoses Diagnosis DLBCL (diffuse large B cell lymphoma) Other malignant lymphomas, unspecified site, extranodal and solid organ sites documented in this encounter Care Teams Line Tester Relationship Specialty Start Date End Date Maine Dunn PA PCP - General 04/08/14 02/13/15 documented as of this encounter
--- OUTSIDE RECORDS SUMMARY | 2023-10-28 00:48 | XMS_ITS | Encounter Summary ---
Author Organization [facility] [place] [address] Care Team Providers Care Striper Spray Gun Name Role Phone Maine Dunn Primary Care Provider [phone] Encounter Details Date Type Department Care Team (Late st Contact Info) Description 07/03/2014 Notes Only Hematology Oncology at [address] [phone] Yuliet Chavez RN Social History Tobacco Use Types Packs/Day Years Used Date Smoking Tobacco: Never Sex and Gender Information Value Date Recorded Sex Assigned at Not on file Gender Identity Not on file Sexual Orientation Not on file documented as of this encounter Progress Notes * Yuliet Chavez RN - 07/03/2014 11:52 AM EDT RESEARCH NURSE OFFICE NOTE CYCLE #5 DAY #1 E1412 Randomized Phase II Open Label Study of Lenalidomide R-CHOP (R2CHOP) vs RCHOP (Rituximab, Cyclophosphamide, Doxorubicin, Vincristine and Prednisone) in Patients with Newly Diagnosed Diffuse Large B Cell Lymphoma Arm B: RCHOP repeat every 3 weeks for total of 6 cycles SUBJECTIVE Patient here for C5D1 R-CHOP. Assessed by Dr. Kimberly Mondragon, please see her note. Myriam says she has felt more fatigued since her last chemo infusion on 06/12/14. She continues to take Ativan 1.0 before bed and is sleeping well most of the time. She occasionally takes Ativan 0.5 mgduring the day if she feels anxious. She denies much nausea after last chemo, although she continues to use calcium carbonate for occasional heart burn. She is eating well and says foods taste good. She still struggles to take in enoughfluids during the day. She denies having any mouth sores. She rinses her mouth with baking soda/water a few times a week - really only when I think of it. Constipation has improved and with use of generic colace, senna and Miralax PRN her bowels are regular. She verbalized that she was under alot of stress and wondered if the nausea may have been related to the anxiety she was feeling. The rash on her torso is gone, and she continues to take Acyclovir 400 mg BID. She has noticed thatfavio has a few freckles on her abdomen that she hadn't seen before. Myriam said she had been given a pamphlet about sexuality which she has misplaced and requested a new copy. Myriam filled the Rx for Prednisone 170 mg po x 4 days to take on 07/04 - 07/07/14. She gave me the the empty bottles saying, I already put them in my pill dispenser box. STUDY ASSESSMENTS COMPLETED Labs on 07/01/14 AEs Con meds PE with VS AE/SIDE EFFECT MONITORING # AE Grade CTCAE v 4.0 Start date Stop Date Action Outcome 1 mucocitis 1 04/15/14 ongoing Baking soda and water rinses 2 insomnia 2 04/15/14 ongoing Increase Ativan to 1.0 mg at bedtime 3 Bleeding hemorrhoids 1 04/19/14 ongoing Tucks, generic Preparation-H, 4 constipation 1 04/21/14 ongoing Colace, Miralax, increased fluid intake 5 rash 1 04/20/14 06/02/14 Acyclovir po BID 6 Night sweats 1 04/20/14 04/23/14 none 7 Tingling in legs and feet 1 04/24/14 04/25/14 none 8 Sinus pressure 1 04/23/14 ongoing Tylenol Sinus PRN 9 Burn on left thumb 1 05/19/14 05/24/14 Generic antibiotic ointment 10 Burn on right thumb 1 05/26/14 05/31/14 Generic antibiotic ointment CHEMOTHERAPY ?? I verified that the dose ordered is consistent with treatment plan per protocol. ?? Dose calculation doubled-checked. Pt BSA = 1.72 x dose/m2 = Prednisone 100 mg/m2, total dose ordered: 170 mg po once on day 1 and then once daily on days 2-5. ?? Rituxan 375 mg/m2, total dose ordered: 650 mg IV once on day 1 ?? Doxorubicin 50 mg/m2, total dose ordered: 85 mg IV once on day 1 ?? Vincristine 1.4 mg/m2 (max 2 mg), total dose ordered: 2 mg IV once on day 1 ?? Cyclophosphamide 750mg/m2 total dose ordered: 1300 mg IV once on day 1 Tolerated infusion well. EDUCATION Prednisone calendar given to patient. Offered [place] [employer] book, Sexuality for Women with Cancer, but she declined saying that the pamphlet she had been given before was much smaller. She thinks she has it at home and will look for it. Instructed to use baking soda/water rinses 3 -4 times daily this week after receiving chemo. Continue using Senekot and Miralax tonight and tomorrow to avoid constipation due to antiemetics caregivers homecare prior to chemo. Encourage to use Zofran and Ativan as needed for nausea and anxiety. She agrees to call or e-mail me with any questions or concerns. PLAN Patient is scheduled to receive Neulasta injection on July 04, 2014, in [place], [place] She is scheduled for C6D1 on July 24, 2014, in [place], [place] She agrees to continue participation in study E1412 documented in this encounter Plan of Treatment Upcoming Encounters Date Type Department Care Team (Late st Contact Info) Description 12/07/2023 12:00 PM EDT Office Visit Dermatology at [facility] [address] [place] [phone] Juan F Chappell MD [facility] DR RANDEE T[place] [address] documented as of this encounter Visit Diagnoses Not on filedocumented in this encounter Care Teams Striper Spray Gun Relationship Specialty Start Date End Date Maine Dunn PA PCP - General 04/08/14 02/13/15 documented as of this encounter
--- OUTSIDE RECORDS SUMMARY | 2023-10-28 00:48 | XMS_ITS | Encounter Summary ---
Author Organization [facility] [place] [address] Care Team Providers Care Automatic Drilling Machine Operator Name Role Phone Maine Dunn Primary Care Provider [phone] Encounter Details Date Type Department Care Team (Late st Contact Info) Description 09/02/2014 8:30 AM EDT - 09/02/2014 10:56 AM EDT Hospital Encounter [place] [phone] Social History Tobacco Use Types Packs/Day Years [...] mouth every 6 hours as needed. 10/11/2014 [place]-3 Fatty Acids-Vitamin E (FISH OIL) 1,000 mg [...] at [facility] [address] [place] [address] Juan F Chappell MD [facility] DR RAN[place] [address] documented as of this encounter Visit Diagnoses Not on filedocumented in this encounter Care Teams Automatic Drilling Machine Operator Relationship Specialty Start Date End Date Maine Dunn PA PCP - General 04/08/14 02/13/15 documented as of this encounter
--- OUTSIDE RECORDS SUMMARY | 2023-10-28 00:48 | XMS_ITS | Encounter Summary ---
Author Organization [facility] Address [facility] [place] [address] Care Team Providers Care Glass Blower Name Role Phone Maine Dunn Primary Care Provider [phone] Encounter Details Date Type Department Care Team (Late st Contact Info) Description 07/10/2014 Orders Only Hematology [place] [address] Kimberly Burnett APRN [facility] [place] [address] Social History Tobacco Use Types Packs/Day Years Used Date Smoking Tobacco: Never Sex and Gender Information Value Date Recorded Sex Assigned at Not on file Gender Identity Not on file Sexual Orientation Not on file documented as of this encounter Plan of Treatment Upcoming Encounters Date Type Department Care Team (Late st Contact Info) Description 12/07/2023 12:00 PM EDT Office Visit Dermatology at [facility] [address] [place] [phone] Juan F Chappell MD [facility] DR [place] [address] Scheduled Orders Name Type Priority Associated Diagnoses Orde r Schedule (OSC MSURG)BONE MARROW ASP PERFORMED W/BX THRU BX INCISION Procedures Routine One Time f or 1 Occurrences starting 07/10/2014 until 07/10/2014 ([facility] MSURG) UNILAT BONE MARROW BIOSPY Procedures Routine One Time for 1 Occurrences starting 07/10/2014 until 07/10/2014 documented as of this encounter Visit Diagnoses Not on filedocumented in this encounter Care Teams Glass Blower Relationship Specialty Start Date End Date Maine Dunn PA PCP - General 04/08/14 02/13/15 documented as of this encounter
--- OUTSIDE RECORDS SUMMARY | 2023-10-28 00:48 | XMS_ITS | Encounter Summary ---
Author Organization [facility] Address [facility] [place] [address] Care Team Providers Care Supervisor Metalizing Name Role Phone Maine Dunn Primary Care Provider [phone] Encounter Details Date Type Department Care Team (Late Contact Info) Description 07/01/2014 Orders Only Hematology/Oncology at [address] [phone] Yuliet Chavez RN DLBCL (diffuse large B [...] PM EDT Office Visit Dermatology at [facility] [address] [place] [address] Juan F Chappell MD [facility] DR RANDEE [place] [address] documented as of this encounter Visit Diagnoses Diagnosis DLBCL (diffuse large B cell lymphoma) Other malignant lymphomas, unspecified site, extranodal and solid organ sites documented in this encounter Care Teams Supervisor Metalizing Relationship Specialty Start Date End Date Maine Dunn PA PCP - General 04/08/14 02/13/15 documented as of this encounter
--- OUTSIDE RECORDS SUMMARY | 2023-10-28 00:48 | XMS_ITS | Encounter Summary ---
Author Organization [facility] Address [facility] [place] [address] Care Team Providers Care Community Planner Name Role Phone Maine Dunn Primary Care Provider [phone] Encounter Details Date Type Department Care Team (Late st Contact Info) Description 07/02/2014 Telephone Hematology/Oncology at [address] [phone] [facility] [place] [place] [address] Social History Tobacco Use Types Packs/Day Years Used Date Smoking Tobacco: Never Sex and Gender Information Value Date Recorded Sex Assigned at Not on file Gender Identity Not on file Sexual Orientation Not on file documented as of this encounter Miscellaneous Notes * Telephone Encounter - Markell Drew RD - 07/02/2014 2:28 PM EDT Called and LVMM on 07/02/14 - if doesn't return call will see when she returns to clinic on 07/26. Called and LVMM on 06/11/14- if doesn???t retrun call will back on 3 weeks. documented in this encounter Plan of Treatment Upcoming Encounters Date Type Department Care Team (Late st Contact Info) Description 12/07/2023 12:00 PM EDT Office Visit Dermatology at [facility] [address] [place] [address] Juan F Chappell MD [facility] DR [place] [address] documented as of this encounter Visit Diagnoses Not on filedocumented in this encounter Care Teams Community Planner Relationship Specialty Start Date End Date Maine Dunn PA PCP - General 04/08/14 02/13/15 documented as of this encounter
--- OUTSIDE RECORDS SUMMARY | 2023-10-28 00:48 | XMS_ITS | Encounter Summary ---
Author Organization [facility] [place] [address] Care Team Providers Care Oil Burner Mechanic Name Role Phone Maine Dunn Primary Care Provider [phone] Encounter Details Date Type Department Care Team (Late st Contact Info) Description 06/10/2014 10:00 AM EDT Ancillary Appointment Hematology [place] [phone] Lymphoma Social History Tobacco Use Types Packs/Day [...] - Inhaled Oxygen Concentration - - Weight 66.7 kg (147 lb 0.8 oz) 06/10/2014 10:10 AM EDT Height 159.6 cm (5' 2.84) 06/10/2014 10:10 AM E DT Body Mass Index 26.19 06/10/2014 10:10 AM EDT documented in this encounter Progress Notes * Yuliet Chavez RN - 06/10/2014 10:23 AM EDT RESEARCH NURSE OFFICE NOTE CYCLE #3 DAY #20 06/10/2014 E1412: Randomized Phase II Open Label Study of Lenalidomide R-CHOP (R2CHOP) vs RCHOP (Rituximab, Cyclophosphamide, Doxorubicin, Vincristine and Prednisone) in 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 Height and weight checked at this visit. Study assessments and AE updates will be done in [facility] on 06/12/14, prior to scheduled Cycle 4 infusions. PREVIOUS CYCLE SUPPLIES & MEDICATION COLLECTED ??? Patient returned empty prednisone bottles dated 04/25/14 and 05/12/14, and her Prednisone Medication calendar from 05/22 - 05/26/14. PLAN 1. Subject agrees to continue on study E1412 per protocol. 2. Next visit on 06/12/14 in [place], [place]. Patient verbalizes understanding of, and agreement with, plan. Advised to contact this office for any questions/concerns, as well as for any new or worsening symptoms. documented in this encounter Plan of Treatment Upcoming Encounters Date Type Department Care Team (Late st Contact Info) Description 12/07/2023 12:00 PM EDT Office Visit Dermatology at [address] [place] [address] Juan F Chappell MD [facility] [address] [place] [address] documented as of this encounter Visit Diagnoses Diagnosis Lymphoma Other malignant lymphomas, unspecified site, extranodal and solid organ sites documented in this encounter Care Teams Oil Burner Mechanic Relationship Specialty Start Date End Date Maine Dunn PA PCP - General 04/08/14 02/13/15 documented as of this encounter
--- OUTSIDE RECORDS SUMMARY | 2023-10-28 00:48 | XMS_ITS | Encounter Summary ---
Author Organization [facility] Address [facility] [place] [address] Care Team Providers Care High [employer] Industrial Arts Teacher Name Role Phone Maine Dunn Primary Care Provider [phone] Encounter Details Date Type Department Care Team (Late st Contact Info) Description 06/10/2014 9:50 AM EDT - 06/10/2014 11:59 PM EDT Hospital Encounter [place] [phone] Kimberly Mondragon MD [facility] [address] [place] [address] Lymphoma Discharge Disposition: Home Social History Tobacco Use Types Packs/Day Years Used Date Smoking Tobacco: Never Sex and Gender Information Value Date Recorded Sex Assigned at Not on file Gender Identity Not on file Sexual Orientation Not on file documented as of this encounter Medications at Time of Discharge Medication Sig Dispensed Refills Start Date End Date predniSONE (DELTASONE) 50 mg TabletIndications:Lymph vivien Take 3 tablets by mouth daily for 4 days. 12 tablet 0 06/10/2014 06/14/2014 predniSONE (DELTASONE) 20 mg TabletIndications:Lymph vivien Take 1 tablet by mouth daily for 4 days. 4 tablet 0 06/10/2014 06/14/2014 LORazepam (ATIVAN) 0.5 mg TabletIndications:Lymph vivien Take 1-2 tablets by mouth every 6 hours as needed for Anxiety for up to 30 days. 60 tablet 3 05/22/2014 06/21/2014 docusate sodium (COLACE) 100 mg Capsule Take 100 mg by mouth 2 times daily. 10/02/2015 senna (SENOKOT) 8.6 mg Tablet Take 1 tablet by mouth daily. 12/25/2015 polyethylene glycol (MIRALAX) 17 gram Powder in Packet Take 17 g by mouth as needed. 09/30/2014 acyclovir (ZOVIRAX) 400 mg Tablet Take 1 tablet by mouth 2 times daily. 60 tablet 3 04/25/2014 08/07/2014 acetaminophen (TYLENOL) 500 mg Tablet Take 1,000 mg by mouth every 6 hours as needed. 10/11/2014 ondansetron (ZOFRAN, HYDROCHLORIDE,) 8 mg TabletIndications:Lymph vivien Take 1 tablet by mouth every 8 hours as needed for Nausea. 10 tablet 6 04/11/2014 07/15/2014 UNABLE TO FIND 450 mg. Med Name: Tumeric 07/24/2014 [place]-3 Fatty Acids-Vitamin E (FISH OIL) 1,000 mg [...] PM EDT Office Visit Dermatology at [facility] [address] [place] [address] Juan F Chappell MD [facility] DR R[place] [address] documented as of this encounter Procedures Procedure Name Priority Date/Time Associated Diagnosis Comments HEMOGRAM STAT 06/10/2014 10:26 AM EDT Lymphoma DIFFERENTIAL, AUTOMATED STAT 06/10/2014 10:26 AM EDT Lymphoma CBC (WITH DIFF) STAT 06/10/2014 10:26 AM EDT Lymphoma LACTATE DEHYDROGENASE STAT 06/10/2014 10:26 AM EDT Lymphoma COMPREHENSIVE METABOLIC PANEL STAT 06/10/2014 10:26 AM EDT Lymphoma documented in this encounter Results * (ABNORMAL) Differential, Automated (06/10/2014 10:26 AM EDT) Neutrophil % 68.0 % CERNER MILLENNIUM Neutrophil Absolute 3.27 1.50 - 6.30 x10(3)/mc L CERNER MILLENNIUM Lymph % 18.5 % CERNER MILLENNIUM Lymphocytes Abs 0.9(L) 1.0 - 3.6 x10(3)/mc L CERNER MILLENNIUM Monocyte % 10.8 % CERNER MILLENNIUM Monocyte Abs 0.5 0.2 - 1.0 x10(3)/mc L CERNER MILLENNIUM Eos % 0.8 % CERNER MILLENNIUM Eosinophils Abs 0.0 0.0 - 0.5 x10(3)/mc L CERNER MILLENNIUM Basophil % 1.5 % CERNER MILLENNIUM Baso Absolute 0.1 0.0 [...] x10(3)/mc L CERNER MILLENNIUM Blood specimen (specimen) 06/10/2014 10:26 AM EDT 06/10/2014 10:48 AM EDT Narrative Resulting Agency Comment Spec In Lab Kimberly Mondragon MD HEMATOLOGY ORDER AYO GIBRAN BUCHANANENNIUM * (ABNORMAL) Hemogram (06/10/2014 10:26 AM EDT) White Blood Cell 4.8 4.0 - 10.0 x10(3)/mc L CERNER MILLENNIUM Red Blood Cell 3.58(L) 3.93 - 5.22 x10(6)/mc L CERNER MILLENNIUM Hemoglobin 11.0(L) 11.2 - 15.7 gm/dL CERNER MILLENNIUM Hematocrit 32.2(L) 34.0 - 45.0 % CERNER MILLENNIUM Mean Cell Volume 89.9 79.0 - 94.0 fL CERNER MILLENNIUM Mean Cell Hemoglobin 30.7 26.6 - 32.2 pg CERNER MILLENNIUM Mean Cell Hemoglobin Concentration 34.2 32.0 - 36.5 gm/dL CERNER MILLENNIUM Platelet 282 145 - 370 x10(3)/mc L CERNER MILLENNIUM RDW Standard Deviation 54.9(H) 35.0 - 46.0 fL CERNER MILLENNIUM RDW coefficient of variation 17.1(H) 10.9 - 14.4 % CERNER MILLENNIUM Mean Platelet Volume 8.8(L) 9.0 - 12.0 fL CERNER MILLENNIUM Blood specimen (specimen) 06/10/2014 10:26 AM EDT 06/10/2014 10:48 AM EDT Narrative Resulting Agency Comment Spec In Lab Kimberly Mondragon MD HEMATOLOGY ORDER AYO GIBRAN GEEIUM * (ABNORMAL) Lactate Dehydrogenase (06/10/2014 10:26 AM EDT) Lactate Dehydrogenase 231(H) 110 - 220 unit/L CERNER MILLENNIUM Blood specimen (specimen) 06/10/2014 10:26 AM EDT 06/10/2014 10:48 AM EDT Narrative Resulting Agency Comment Spec In Lab Kimberly Mondragon MD CHEMISTRY ORDERA BLES CERNER MILLENNIUM * (ABNORMAL) Comprehensive metabolic panel (non-fasting) (06/10/2014 10:26 AM EDT) [facility] Glucose 93 60 - 199 mg/dL CERNER MILLENNIUM Comment:Diabetes: >=200 mg/d L plus symptoms Blood Urea Nitrogen 18 8 - 18 mg/dL CERNER MILLENNIUM Creatinine 0.75 0.70 - 1.20 mg/dL CERNER MILLENNIUM Comment: Please note that the pediatric reference intervals supplied above were not validated at [facility]. Results from pediatric patients should be interpreted in conjunction to the patient's age, height and muscle mass. Sodium 140 135 - 145 mmol/L CERNER MILLENNIUM Potassium 4.4 3.5 - 5.0 mmol/L [...] - 5.2 gm/dL CERNER MILLENNIUM Aspartate Aminotransferase 32(H) 0 - 30 unit/L CERNER MILLENNIUM Alanine Aminotransferase 44(H) 0 - 30 unit/L CERNER MILLENNIUM Alkaline [...] the following links into your internet browser. [email or web address] Blood specimen (specimen) 06/10/2014 10:26 AM EDT 06/10/2014 10:48 AM EDT Narrative Resulting Agency Comment Spec In Lab Kimberly Mondragon MD CHEMISTRY ORDERA BLES [facility] documented in this encounter Visit Diagnoses Diagnosis Lymphoma Other malignant lymphomas, unspecified site, extranodal and solid organ sites documented in this encounter Care Teams [employer] Industrial Arts Teacher Relationship Specialty Start Date End Date Maine Dunn PA PCP - General 04/08/14 02/13/15 documented as of this encounter
--- OUTSIDE RECORDS SUMMARY | 2023-10-28 00:48 | XMS_ITS | Encounter Summary ---
Author Organization [facility] Address [facility] [address] Care Team Providers Care Front Desk Host Name Role Phone Maine Dunn Primary Care Provider Encounter Details Date Type Department Care Team (Late st Contact Info) Description 07/22/2014 Orders Only Hematology Oncology at [address] [phone] Yuliet Chavez RN Diffuse large B cell lymphoma Social History Tobacco Use Types [...] 12:00 PM EDT Office Visit Dermatology at [facility] [address] [place] [address] Juan F Chappell MD [facility] DR RANDEE [place] [address] documented as of this encounter Visit Diagnoses Diagnosis Diffuse large B cell lymphoma Other malignant lymphomas, unspecified site, extranodal and solid organ sites documented in this encounter Care Teams Front Desk Host Relationship Specialty Start Date End Date Maine Dunn PA PCP - General 04/08/14 02/13/15 documented as of this encounter
--- OUTSIDE RECORDS SUMMARY | 2023-10-28 00:48 | XMS_ITS | Encounter Summary ---
Author Organization [facility] Address [facility] [place] [address] Care Team Providers Care Program Services Assistant Name Role Phone Maine Dunn Primary Care Provider [phone] Reason for Visit * Reason Comments Injections neulasta injection Encounter Details Date Type Department Care Team (Late st Contact Info) Description 07/25/2014 3:30 PM EDT Infusion Hematology Oncology at [address] [phone] CLIN[address], DR [place] HEM/ONC Sal Ward MD [address] [place] [address] Lymphoma Discharge Disposition: Home Social History Tobacco Use Types Packs/Day Years Used Date Smoking Tobacco: Never Sex and Gender Information Value Date Recorded Sex Assigned at Not on file Gender Identity Not on file Sexual Orientation Not on file documented as of this encounter Last Filed Vital Signs Vital Sign Reading Time Taken Comments Blood Pressure - - Pulse 96 07/25/2014 3:35 PM EDT Temperature 37 ??C (98.6 ??F) 07/25/2014 3:35 PM EDT Respiratory Rate 18 07/25/2014 3:35 PM EDT Oxygen Saturation 96% 07/25/2014 3:35 PM EDT Inhaled Oxygen Concentration - - Weight - - Height - - Body Mass Index - - documented in this encounter Progress Notes * Rona, Tenisha H, RN - 07/25/2014 3:51 PM EDT Protocol: E1412 Arm B Treatment Started: 1530 Treatment Ended: 154 Diagnosis: Lymphoma Treatment: Neulasta injection for prevention of anticipated chemotherapy induced neutropenia S/O: Myriam denies any complaints. She is taking prednisone 170mg as prescribed. A/P: PET scan end of August. documented in this encounter Plan of Treatment Upcoming Encounters Date Type Department Care Team (Late st Contact Info) Description 12/07/2023 12:00 PM EDT Office Visit Dermatology at [facility] [address] [place] [address] Juan F Chappell MD [facility] [address] [place] [address] documented as of this encounter Visit Diagnoses Diagnosis Lymphoma Other malignant lymphomas, unspecified site, extranodal and solid organ sites documented in this encounter Administered Medications Inactive Administered Medications - up to 3 most recent administrations Medication Order MAR Action Action Date Dose Rate Site pegfilgrastim (NEULASTA) injection 6 mg 6 mg, Subcutaneous, ONCE, 1 dose, On Cece 07/25/14 at 1530, Dose between day 2-4 of each cycle, Routine Given 07/25/2014 3:40 PM EDT 6 mg Right Lower Quadrant documented in this encounter Care Teams Program Services Assistant Relationship Specialty Start Date End Date Maine Dunn PA PCP - General 04/08/14 02/13/15 documented as of this encounter
--- OUTSIDE RECORDS SUMMARY | 2023-10-28 00:48 | XMS_ITS | Encounter Summary ---
Author Organization [facility] Address [facility] [place] [address] Care Team Providers Care Solar Installation Foreman Name Role Phone Maine Dunn Primary Care Provider [phone] Encounter Details Date Type Department Care Team (Late st Contact Info) Description 06/24/2014 Orders Only Hematology Oncology at [address] [phone] Yuliet Chavez RN Diffuse large B cell [...] at [facility] [address] [place] [address] Juan F Chappell MD [facility] DR [place] [address] documented as of this encounter Visit Diagnoses Diagnosis Diffuse large B cell lymphoma Other malignant lymphomas, unspecified site, extranodal and solid organ sites documented in this encounter Care Teams Solar Installation Foreman Relationship Specialty Start Date End Date Maine Dunn PA PCP - General 04/08/14 02/13/15 documented as of this encounter
--- OUTSIDE RECORDS SUMMARY | 2023-10-28 00:48 | XMS_ITS | Encounter Summary ---
Author Organization [facility] [address] Care Team Providers Care Rattling Machine Tender Name Role Phone Maine Dunn Primary Care Provider [phone] Reason for Visit * Reason Onset Date Comments Appointment 07/12/2014 Encounter Details Date Type Department Care Team (Late st Contact Info) Description 07/12/2014 Telephone Hematology/Oncology at [address] [phone] Yuliet Chavez RN Appointment Social History Tobacco Use Types Packs/Day Years Used Date Smoking Tobacco: Never Sex and Gender Information Value Date Recorded Sex Assigned at Not on file Gender Identity Not on file Sexual Orientation Not on file documented as of this encounter Miscellaneous Notes * Telephone Encounter - Yuliet Chavez RN - 07/12/2014 10:35 AM EDT Message left on identified home phone answering machine that Myriam's appt on 07/26 with a engineering program analyst has been cancelled. An appt for Neulasta injection has been made on 07/25 at 3:30 PM in [facility].I also told her that I will send her a brochure explaining how to sign up for myD-H though the mail. documented in this encounter Plan of Treatment Upcoming Encounters Date Type Department Care Team (Late st Contact Info) Description 12/07/2023 12:00 PM EDT Office Visit Dermatology at [address] [place] [address] Juan F Chappell MD [facility] DR RANDEE [place] [address] documented as of this encounter Visit Diagnoses Not on filedocumented in this encounter Care Teams Rattling Machine Tender Relationship Specialty Start Date End Date Maine Dunn PA PCP - General 04/08/14 02/13/15 documented as of this encounter
--- OUTSIDE RECORDS SUMMARY | 2023-10-28 00:48 | XMS_ITS | Encounter Summary ---
Author Organization [facility] [place] [address] Care Team Providers Care Fish Fryer Name Role Phone Maine Dunn Primary Care Provider [phone] Encounter Details Date Type Department Care Team (Late st Contact Info) Description 07/24/2014 Notes Only Hematology/Oncology at [address] [phone] Yuliet Chavez RN Social History Tobacco Use Types Packs/Day Years Used Date Smoking Tobacco: Never Sex and Gender Information Value Date Recorded Sex Assigned at Not on file Gender Identity Not on file Sexual Orientation Not on file documented as of this encounter Progress Notes * Yuliet Chavez RN - 07/24/2014 9:46 AM EDT RESEARCH NURSE OFFICE NOTE CYCLE #6 DAY #1 E1412 Randomized Phase II Open Label Study of Lenalidomide R-CHOP (R2CHOP) vs RCHOP (Rituximab, Cyclophosphamide, Doxorubicin, Vincristine and Prednisone) in 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 Assessed by Hawa Overton APRN, please see her note. Myriam says she felt exhausted after her last chemo infusion on 07/03/14 and she felt very depressed.She took 2 Lexapro for several days which she said helped. She continues to take Ativan 1.0 before bed and is sleeping well most of the time. Occasionally she wakes up in the night and cannot go backto sleep. When this happens she takes Ativan 0.5 mg and is able to fall asleep again. She denies nausea after last chemo, although she continues to use calcium carbonate for occasional feeling of gastric/esphageal fullness/heart burn. She is eating well and says most but not all foodstaste good. She doesn't keep track of how much she drinks during the day but feels her fluid intakeis impoved. She denies having any mouth sores. She rinses her mouth with baking soda/water daily. She has learned what to do when she feels constipated, and when she uses generic colace, senna and Miralax PRN her bowels are regular. She denies chest or abdominal pain, SOB, nausea, numbness or tingling in feet, swelling of feel or ankles, weakness, dizziness or changes in vision Denies any rashes, and she continues to take Acyclovir 400 mg BID. Myriam returned the prednisone diary from Cycle 5. She filled the Rx for Prednisone 170 mg po x 4 days to take on 07/25- 07/28/14. She returned the empty bottles and said she put the current meds in herpill dispenser box. ECOG = 1 STUDY ASSESSMENTS COMPLETED Labs on 07/22/14 AEs Con meds PE with VS AE/SIDE EFFECT MONITORING # AE Grade CTCAE v 4.0 Start date Stop Date Action Outcome 1 mucocitis 1 04/15/14 ongoing Baking soda and water rinses 2 insomnia 2 04/15/14 ongoing Increase Ativan to 1.0 mg at bedtime and prn 3 Bleeding hemorrhoids 1 04/19/14 ongoing Tucks, [...] well. EDUCATION Prednisone calendar given to patient. Instructed to use baking soda/water rinses 3 -4 times daily this week after receiving chemo. Continue using Senekot and Miralax tonight and tomorrow to avoid constipation due to antiemetics acquisition cost estimator prior to chemo. Encourage to use Zofran and Ativan as needed for nausea and anxiety. Patient agrees to contact office with any questions/concerns PLAN Patient is scheduled to receive Neulasta injection on 07/25/14, in [place], [place] She is scheduled to have f/u labs, PET/CT scan, BMBX 09/02/14, in [place], [place] She agrees to continue participation in study E1412 documented in this encounter Plan of Treatment Upcoming Encounters Date Type Department Care Team (Late st Contact Info) Description 12/07/2023 12:00 PM EDT Office Visit Dermatology at [facility] [address] [place] [address] Juan F Chappell MD [facility] DR [place] [address] documented as of this encounter Visit Diagnoses Not on filedocumented in this encounter Care Teams Fish Fryer Relationship Specialty Start Date End Date Maine Dunn PA PCP - General 04/08/14 02/13/15 documented as of this encounter
--- OUTSIDE RECORDS SUMMARY | 2023-10-28 00:48 | XMS_ITS | Encounter Summary ---
Author Organization [facility] [place] [address] Care Team Providers Care Material Assembler Name Role Phone Maine Dunn Primary Care Provider [phone] Encounter Details Date Type Department Care Team (Late st Contact Info) Description 06/10/2014 9:54 AM EDT - 06/10/2014 10:29 AM EDT Hospital Encounter [place] [phone] Social History Tobacco Use Types Packs/Day Years Used Date Smoking Tobacco: Never Sex and Gender Information Value Date Recorded Sex Assigned at Not on file Gender Identity Not on file Sexual Orientation Not on file documented as of this encounter Medications at Time of Discharge Medication Sig Dispensed Refills Start Date End Date LORazepam (ATIVAN) 0.5 mg TabletIndications:Lymph vivien Take [...] FIND 450 mg. Med Name: Tumeric 07/24/2014 [place]-3 Fatty Acids-Vitamin E (FISH OIL) 1,000 mg [...] 12:00 PM EDT Office Visit Dermatology at [address] [phone] Juan F Chappell MD [facility] [address] [place] [address] documented as of this encounter Procedures Procedure Name Priority Date/Time Associated Diagnosis Comments CHEMOTHERAPY SCAN 07/24/2014 12: 00 AM EDT POCT GLUCOSE Routine 06/10/2014 10:40 AM EDT documented in this encounter Results * SCAN DOC: CHEMOTHERAPY (07/24/2014 12:00 AM EDT) Scanning Provider MEDIA MGR SCAN EXT O RDR/RSLT * POCT Glucose (06/10/2014 10:40 AM EDT) Glucose, POC 92 60 - 199 mg/dL [facility] Comment: Supplemental ranges: <140 mg/dL before meals <180 mg/dL all other times of the day Blood specimen (specimen) 06/10/2014 10:40 AM EDT 06/10/2014 10:40 AM EDT Kimberly Mondragon MD POINT OF CARE TE ST ORDERABLES Performing Organization Address City/State/[facility] Co me Phone Number [facility] documented in this encounter Visit Diagnoses Not on filedocumented in this encounter Care Teams Material Assembler Relationship Specialty Start Date End Date Maine Dunn PA PCP - General 04/08/14 02/13/15 documented as of this encounter
--- OUTSIDE RECORDS SUMMARY | 2023-10-28 00:48 | XMS_ITS | Encounter Summary ---
Author Organization [facility] Address [facility] [place] [address] Care Team Providers Care Director Electronics Name Role Phone Maine Dunn Primary Care Provider [phone] Reason for Visit * Reason Comments Follow-up Encounter Details Date Type Department Care Team (Late st Contact Info) Description 09/02/2014 9:30 AM EDT Follow-Up Hematology [place] [id number] Kimberly Velez MD [facility] [place] [address] Lymphoma Discharge Disposition: Home Social History Tobacco Use Types Packs/Day Years Used Date Smoking Tobacco: Never Sex and Gender Information Value Date Recorded Sex Assigned at Not on file Gender Identity Not on file Sexual Orientation Not on file documented as of this encounter Last Filed Vital Signs Vital Sign Reading Time Taken Comments Blood Pressure 114/47 09/02/2014 8:53 AM EDT Pulse 74 09/02/2014 8:53 AM EDT Temperature 36.3 ??C (97.3 ??F) 09/02/2014 8:53 AM ED T Respiratory Rate 18 09/02/2014 8:53 AM EDT Oxygen Saturation 100% 09/02/2014 8:53 AM EDT Inhaled Oxygen Concentration - - Weight 66 kg (145 lb 8.1 oz) 09/02/2014 8:53 AM EDT Height 158.7 cm (5' 2.48) 09/02/2014 8:53 AM ED T Body Mass Index 26.21 09/02/2014 8:53 AM EDT documented in this encounter Progress Notes * Kimberly Velez MD - 09/02/2014 1:42 PM EDT ++++++++++++++++++++++++++++++++++++++++++++++++++++++++++++++++ Attending Addendum: I personally saw, examined and interviewed the patient. I agree with the history, physical, assessment and plan in the note by Dr Grande of the same date. I have reviewed all pertinent laboratory and radiographic findings. We discussed the patient in detail and formulated the assessment and plan together. She has completed her chemotherapy (RCHOP X 6) and will be restaged today with BMBx and PET scan. We will jenaro her with these results. Labs are fine. She can stop her Acyclovir. If restaging studies show LUMA, then, I will see her backat [facility] per protocol - Yuliet Chavez RN will arrange f/u at [facility] with or [place]. * Joshua Grande MD - 09/02/2014 9:22 AM EDT [place] [address] FOLLOW-UP PATIENT EVALUATION PROBLEM LIST: Patient Active [...] of DLBCL. She did pretty well with C#6 HOP on protocol. Uses ativan at night but has been tapering it off. Has had a lot going on at home with other family members with sister dying from lymphoma. Work is stressful. Energy level pretty good, coming back, still napping once/day. Appetite coming back. NO constipation. Hair is coming back. No oral ulcers. No B symptoms. ROS Energy level:improving Pain: No Appetite:eating well but different foods than her normal Fevers/chills/sweats:No Bruising/bleeding/melena:No Recent infections:No HEENT: negative Nausea/vomiting/diarrhea/constipation: nausea at home SOB/HAUSER/chest pain:No Change in adenopathy or other masses:No Unexpected weight loss or gain: stable Skin rashes or petechiae:No Musculoskeletal complaints:No Extremities: Negative upper and lower bilaterally Neurologic symptoms: see above Mood: Sig improvement in anxiety - 0.5mg ativan in AM Sleep: Using 0.5mg ativan to help w/ sleep. MEDS: Outpatient Prescriptions Marked as Taking for the 09/02/14 encounter (Follow-Up) with Kimberly Velez MD Medication Sig Dispense Refill ??? acyclovir (ZOVIRAX) 400 mg Tablet take 1 tablet by mouth twice a day 60 tablet 3 ??? LORazepam (ATIVAN) 0.5 mg Tablet Take 1 tablet by mouth every 6 hours as needed for Anxiety. Patient takes one tablet in the morning, and two tablets at night 60 tablet 1 ??? ondansetron (ZOFRAN) 8 mg Tablet take 1 tablet by mouth every 8 hours if needed for nausea 10 tablet 6 ??? docusate sodium (COLACE) 100 mg Capsule Take 100 mg by mouth 2 times daily. ??? senna (SENOKOT) 8.6 mg Tablet Take 1 tablet by mouth daily. ??? polyethylene glycol (MIRALAX) 17 gram Powder in Packet Take 17 g by mouth as needed. ??? acetaminophen (TYLENOL) 500 mg Tablet Take 1,000 mg by mouth every 6 hours as needed. ??? [place]-3 Fatty Acids-Vitamin E (FISH OIL) 1,000 mg Capsule Take by mouth. ??? Calcium 500 mg Tablet Take by mouth. ??? Cholecalciferol, Vitamin D3, (VITAMIN D-3) 2,000 unit Capsule Take 1,000 Units by mouth. ??? escitalopram (LEXAPRO) 10 mg tablet Allergies: Allergies Allergen Reactions ??? Tegaderm [Transparent Dressings] Other (See Comments) Unsure if actual allergy, please try [id number] Skin tears/rawness INTERIM SOCIAL HISTORY Changes in job, home situation, tobacco or alcohol use: Working 8-15 hours per week PHYSICAL EXAM BP 114/47 Pulse 74 Temp(Src) 36.3 ??C (97.3 ??F) (Temporal) Resp 18 Ht 158.7 cm (5' 2.48) Wt 66 kg (145 lb 8.1 oz) BMI 26.21 kg/m2 SpO2 100% Body surface area is 1.71 meters squared. GENERAL: Myriam Vivas appears well and is in no acute distress. ENT: Oral pharynx clear. EYES: SWTAHI NECK: Supple without adenopathy. AXILLARY: none OTHER LYMPH: no adenopathy CARDIAC: Regular rate and rhythm without S3,S4 or murmurs. LUNGS: Clear to auscultation./percussion. ABDOMEN: Soft and non-tender without hepatosplenomegaly or [...] Range LDH 219 110 - 220 unit/L RADIOLOGY STUDIES REVIEWED: None done ASSESSMENT/PLAN: Myriam is here for f/u appt after C#6 RCHOP on protocol. She did relatively well with this last cycle. Heme - bone marrow biopsy and restaging PET today; can stop acyclovir; we will call with results Constipation - Controlled with senna/colace Sleep - using ativan 0.5 mg qhs but tapering it off; can try either melatonin, tylenol pm, benadryl Anxiety - improving, cutting down on Ativan twice daily; f/u with therapist Nausea - none She should wait a few months before getting eyes checked Joshua Grande MD Hematology/Oncology fellow Pager [phone] documented in this encounter Miscellaneous Notes * Addendum Note - Kimberly Velez MD - 09/02/2014 1:53 PM EDTAddended by: KIMBERLY VELEZ on: 09/02/2014 01:53 PM Modules accepted: Level of Service documented in this encounter Plan of Treatment Upcoming Encounters Date Type Department Care Team (Late st Contact Info) Description 12/07/2023 12:00 PM EDT Office Visit Dermatology at [facility] [address] [place] [address] Juan F Chappell MD [facility] DR [place] [address] documented as of this encounter Procedures Procedure Name Priority Date/Time Associated Diagnosis Comments POCT GLUCOSE Routine 09/02/2014 2:36 PM EDT LACTATE DEHYDROGENASE STAT 09/02/2014 10:29 AM EDT Lymphoma COMPREHENSIVE METABOLIC PANEL STAT 09/02/2014 10:29 AM EDT Lymphoma HEMOGRAM Routine 09/02/2014 8:48 AM EDT Lymphoma DIFFERENTIAL, AUTOMATED Routine 09/02/2014 8:48 AM EDT Lymphoma CBC (WITH DIFF) Routine 09/02/2014 8:48 AM EDT documented in this encounter Results * POCT Glucose (09/02/2014 2:36 PM EDT) Glucose, POC 88 65 - 199 mg/dL CERNER MILLENNIUM Comment: Supplemental ranges: <140 mg/dL before meals <180 mg/dL all other times of the day Blood specimen (specimen) 09/02/2014 2:36 PM EDT 09/02/2014 2:36 PM EDT Kimberly Velez MD POINT OF CARE TE ST ORDERABLES [facility] MoogiENNIUM * Lactate Dehydrogenase (09/02/2014 10:29 AM EDT) Lactate Dehydrogenase 219 110 - 220 unit/L [facility] Blood specimen (specimen) 09/02/2014 10:29 AM EDT 09/02/2014 10:39 AM EDT Narrative Resulting Agency Comment Spec In Lab Kimberly Velez MD CHEMISTRY ORDERA BLES Performing Organization Address City/[facility]/ZIP Co de Phone Number [facility] MoogiENNIUM * (ABNORMAL) Comprehensive metabolic panel (non-fasting) (09/02/2014 10:29 AM EDT) Glucose 94 65 - 199 mg/dL CERNER MILLENNIUM Comment:Diabetes: >=200 mg/d L plus symptoms Blood Urea Nitrogen 20(H) 8 - 18 mg/dL CERNER MILLENNIUM Creatinine 0.67(L) 0.70 - 1.20 mg/dL CERNER MILLENNIUM Comment: Please note that the pediatric reference intervals supplied above were not validated at [facility]. Results from pediatric patients should be interpreted [...] - 10.5 mg/dL CERNER MILLENNIUM Protein, Total 7.1 6.1 - 8.0 gm/dL CERNER MILLENNIUM Albumin 4.6 3.2 - 5.2 gm/dL CERNER MILLENNIUM Aspartate Aminotransferase 33(H) 0 - 30 unit/L CERNER MILLENNIUM Alanine Aminotransferase 41(H) 0 - 30 unit/L CERNER MILLENNIUM Alkaline Phosphatase 111(H) 40 - 104 unit/L CERNER MILLENNIUM Bilirubin, Total 0.8 0.2 - 1.3 mg/dL CERNER MILLENNIUM Bilirubin, [...] the following links into your internet browser. [email or web address] Blood specimen (specimen) 09/02/2014 10:29 AM EDT 09/02/2014 10:39 AM EDT Narrative Resulting Agency Comment Spec In Lab Kimberly Velez MD CHEMISTRY ORDERA BLES [facility] Organization Address City/State/ZIP Co de Phone Number CERNER MILLENNIUM * (ABNORMAL) Differential, Automated (09/02/2014 8:48 AM EDT) Neutrophil % 61.3 % CERNER MILLENNIUM Neutrophil Absolute 2.79 1.50 - 6.30 x10(3)/mc L CERNER MILLENNIUM Lymph % 16.4 % CERNER MILLENNIUM Lymphocytes Abs 0.8(L) 1.0 - 3.6 x10(3)/mc L CERNER MILLENNIUM Monocyte % 14.7 % CERNER MILLENNIUM Monocyte Abs 0.7 0.2 - 1.0 x10(3)/mc L CERNER MILLENNIUM Eos % 5.9 % CERNER MILLENNIUM Eosinophils Abs 0.3 0.0 - 0.5 x10(3)/mc L CERNER [...] x10(3)/mc L CERNER MILLENNIUM Blood specimen (specimen) 09/02/2014 8:48 AM EDT 09/02/2014 8:53 AM EDT Narrative Resulting Agency Comment Spec In Lab Kimberly Velez MD HEMATOLOGY ORDER AYO GIBRAN GEEIUM * (ABNORMAL) Hemogram (09/02/2014 8:48 AM EDT) White Blood Cell 4.6 4.0 - 10.0 x10(3)/mc L CERNER MILLENNIUM Red Blood Cell 3.50(L) 3.93 - 5.22 x10(6)/mc L CERNER MILLENNIUM Hemoglobin 11.7 11.2 - 15.7 gm/dL CERNER MILLENNIUM Hematocrit 33.2(L) 34.0 - 45.0 % CERNER MILLENNIUM Mean Cell Volume 94.9(H) 79.0 - 94.0 fL CERNER MILLENNIUM Mean Cell Hemoglobin 33.4(H) 26.6 - 32.2 pg CERNER MILLENNIUM Mean Cell Hemoglobin Concentration 35.2 32.0 - 36.5 gm/dL CERNER MILLENNIUM Platelet 165 145 - 370 x10(3)/mc L CERNER MILLENNIUM RDW Standard Deviation 43.3 35.0 - 46.0 fL CERNER MILLENNIUM RDW coefficient of variation 12.5 10.9 - 14.4 % CERNER MILLENNIUM Mean Platelet Volume 9.6 9.0 - 12.0 fL CERNER MILLENNIUM Blood specimen (specimen) 09/02/2014 8:48 AM EDT 09/02/2014 8:53 AM EDT Narrative Resulting Agency Comment Spec In Lab Kimberly Velez MD HEMATOLOGY ORDER AYO GIBRAN COREAS documented in this encounter Visit Diagnoses Diagnosis Lymphoma Other malignant lymphomas, unspecified site, extranodal and solid organ sites documented in this encounter Care Teams Director Electronics Relationship Specialty Start Date End Date Maine Dunn PA PCP - General 04/08/14 02/13/15 documented as of this encounter
--- OUTSIDE RECORDS SUMMARY | 2023-10-28 00:48 | XMS_ITS | Encounter Summary ---
Author Organization [facility] Address [facility] [place] [address] Care Team Providers Care Parts Order And Stock Clerk Name Role Phone Maine Dunn Primary Care Provider [phone] Reason for Visit * Reason Comments Follow-up Encounter Details Date Type Department Care Team (Late st Contact Info) Description 07/03/2014 9:00 AM EDT Follow-Up Hematology/Oncology at [address] [address] Kimberly Mondragon MD [facility] DR [place] [address] Lymphoma Discharge Disposition: Home Social History Tobacco Use Types Packs/Day Years Used Date Smoking Tobacco: Never Sex and Gender Information Value Date Recorded Sex Assigned at Not on file Gender Identity Not on file Sexual Orientation Not on file documented as of this encounter Last Filed Vital Signs Vital Sign Reading Time Taken Comments Blood Pressure 104/48 07/03/2014 8:43 AM EDT Pulse 91 07/03/2014 8:43 AM EDT Temperature 36.7 ??C (98.1 ??F) 07/03/2014 8:43 AM ED T Respiratory Rate 16 07/03/2014 8:43 AM EDT Oxygen Saturation 99% 07/03/2014 8:43 AM EDT Inhaled Oxygen Concentration - - Weight 66.9 kg (147 lb 8 oz) 07/03/2014 8:43 AM EDT Height 159 cm (5' 2.6) 07/03/2014 8:43 AM EDT Body Mass Index 26.47 07/03/2014 8:43 AM EDT documented in this encounter Progress Notes * Kimberly Mondragon MD - 07/03/2014 9:03 AM EDT . [facility] [place] [address] FOLLOW-UP PATIENT EVALUATION PROBLEM LIST: Patient Active [...] DLBCL. She did pretty well with C#4 RCHOP on protocol. She had more nausea with this cycle. Used zofran. Lasted 2.5 weeks. Uses ativan at night. Has had a lot going on at home with other family members. Work is stressful. She is with [employer] today. Taking ativan 0.5mg q AM and 1 [...] Outpatient Prescriptions Marked as Taking for the 07/03/14 encounter (Follow-Up) with Kimberly Mondragon MD Medication [...] 2 times daily. 60 tablet 3 ??? [place]-3 Fatty Acids-Vitamin E (FISH OIL) 1,000 mg Capsule Take by mouth. ??? Calcium 500 mg Tablet Take by mouth. ??? Cholecalciferol, Vitamin D3, (VITAMIN D-3) 2,000 unit Capsule Take 1,000 Units by mouth. ??? escitalopram (LEXAPRO) 10 mg tablet Allergies: Allergies Allergen Reactions ??? Tegaderm [Transparent Dressings] Other (See Comments) Unsure if actual allergy, please try [id number] Skin tears/rawness INTERIM SOCIAL HISTORY Changes in job, home situation, tobacco or alcohol use: Working 8-15 hours per week PHYSICAL EXAM BP 104/48 Pulse 91 Temp(Src) 36.7 ??C (98.1 ??F) (Oral) Resp 16 Ht 159 cm (5' 2.6) Wt 66.906 kg (147 lb 8 oz) BMI 26.46 kg/m2 SpO2 99% Body surface area is [...] (from the past 72 hour(s)). Labs from 07/01/14 show white count of 4.6 ANC of 3.1 hemoglobin of 10.6 platelets of 320. RADIOLOGY STUDIES REVIEWED: EXAMINATION: PET/CT STANDARD (Skull base to Mid-thigh) CLINICAL HISTORY: diffuse large B cell lymphoma TECHNIQUE: Procedure: Following IV injection of 62-qohlyw-6-deoxyglucose (FDG) a standard uptake of approximately 60 [...] in by Tuesday so we worked with [facility] RN to get that resolved today. [...] result of her anxiety. Nausea - much better with last cycle. Myriam had many questions regarding swimming, energy, sex and bleeding precautions, protocol f/u, Alcohol, and infection precautions. I answered all of them to the best of my ability. RTC in 3 weeks for next cycle. total time: time in counselling: Copy SOPHY FUNES documented in this encounter Plan of Treatment Upcoming Encounters Date Type Department Care Team (Late st Contact Info) Description 12/07/2023 12:00 PM EDT Office Visit Dermatology at [facility] [address] [place] [address] Juan F Chappell MD [facility] DR RANDEE [place] [address] documented as of this encounter Procedures Procedure Name Priority Date/Time Associated Diagnosis Comments CHEMOTHERAPY SCAN 07/04/2014 12:00 AM EDT CHEMOTHERAPY SCAN 07/04/2014 12:00 AM EDT documented in this encounter Results * SCAN DOC: CHEMOTHERAPY (07/04/2014 12:00 AM EDT) Scanning Provider MEDIA MGR SCAN EXT O RDR/RSLT * SCAN DOC: CHEMOTHERAPY (07/04/2014 12:00 AM EDT) Scanning Provider MEDIA MGR SCAN EXT O RDR/RSLT documented in this encounter Visit Diagnoses Diagnosis Lymphoma Other malignant lymphomas, unspecified site, extranodal and solid organ sites documented in this encounter Care Teams Parts Order And Stock Clerk Relationship Specialty Start Date End Date Maine Dunn PA PCP - General 04/08/14 02/13/15 documented as of this encounter
--- OUTSIDE RECORDS SUMMARY | 2023-10-28 00:48 | XMS_ITS | Encounter Summary ---
Author Organization [facility] Address [facility] [place] [address] Care Team Providers Care Logistics Supply Officer Name Role Phone Maine Dunn Primary Care Provider [phone] Encounter Details Date Type Department Care Team (Late st Contact Info) Description 07/24/2014 Notes Only Hematology Oncology at [address] [id number] Myriam Miles CORE DRILLING SUPERVISOR OFFICE OF CARE MANAGEMENT Social History Tobacco Use Types Packs/Day Years Used Date Smoking Tobacco: Never Sex and Gender Information Value Date Recorded Sex Assigned at Not on file Gender Identity Not on file Sexual Orientation Not on file documented as of this encounter Progress Notes * Myriam Miles MSW - 07/25/2014 10:52 AM EDT Follow up with pt during infusion 07-24-14. 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 Gave pt information re SS Disability and a worksheet to help her prep for this interview. Pt indicated she will spend the next few days after her treatment with a friend and then returns home. She indicated she is managing well overall. Offered support and reminded pt of my availability for support and resources. documented in this encounter Plan of Treatment Upcoming Encounters Date Type Department Care Team (Late st Contact Info) Description 12/07/2023 12:00 PM EDT Office Visit Dermatology at [facility] [address] [place] [address] Juan F Chappell MD [facility] DR RANDEE [place] [address] documented as of this encounter Visit Diagnoses Not on filedocumented in this encounter Care Teams Logistics Supply Officer Relationship Specialty Start Date End Date Maine Dunn PA PCP - General 04/08/14 02/13/15 documented as of this encounter
--- OUTSIDE RECORDS SUMMARY | 2023-10-28 00:48 | XMS_ITS | Encounter Summary ---
Author Organization [facility] Address [facility] [place] [address] Care Team Providers Care Barrel Cooper Name Role Phone Maine Dunn Primary Care Provider [phone] Reason for Visit * Reason Comments Other Height and Weight Ch shahram Encounter Details Date Type Department Care Team (Late st Contact Info) Description 07/01/2014 11:30 AM EDT Infusion Hematology Oncology at [address] [address] CLINIC, DR MARINA HEM/ONC Sal Ward MD [address] [place] [address] Lymphoma Discharge Disposition: Home Social History [...] Concentration - - Weight 66.7 kg (147 lb) 07/01/2014 10:49 AM EDT Height 159.2 cm (5' 2.68) 07/01/2014 10:49 AM E DT Body Mass Index 26.31 07/01/2014 10:49 AM EDT documented in this encounter Progress Notes * Faustina Soto RN - 07/01/2014 10:52 AM EDT Patient arrived in clinic today for height and weight check, both done and documented in EDH. Patient states that she needs new prescription for prednisone and requests that she get 50mg tablets and 20 mg tablets to equal dose ordered(she currently takes 8.5 of the 20mg tablets)-she would like this called into [facility] in [facility]-phone # [phone]. . Message sent to Yuliet Chavez RN for follow up. documented in this encounter Plan of Treatment Upcoming Encounters Date Type Department Care Team (Late st Contact Info) Description 12/07/2023 12:00 PM EDT Office Visit Dermatology at [place] [address] [place] [address] Juan F Chappell MD [facility] DR RANDE[place] [address] documented as of this encounter Visit Diagnoses Diagnosis Lymphoma Other malignant lymphomas, unspecified site, extranodal and solid organ sites documented in this encounter Care Teams Barrel Cooper Relationship Specialty Start Date End Date Maine Dunn PA PCP - General 04/08/14 02/13/15 documented as of this encounter
--- OUTSIDE RECORDS SUMMARY | 2023-10-28 00:48 | XMS_ITS | Encounter Summary ---
Author Organization [facility] Address [facility] [place] [address] Care Team Providers Care Bouffant Curtain Machine Tender Name Role Phone Belén Griffin MD Primary Care Provider [phone] Reason for Visit * Reason Onset Date Comments Medication Refill 08/22/2014 Encounter Details Date Type Department Care Team (Late st Contact Info) Description 08/22/2014 Refill Hematology [place] [address] Kimberly Burnett APRN [facility] DR [place]AT[place] [address] Social History Tobacco Use Types Packs/Day Years [...] [facility] [address] [place] [address] Juan F Chappell MD [facility] DR RANDEE [place] [address] documented as of this encounter Visit Diagnoses Not on filedocumented in this encounter Care Teams Bouffant Curtain Machine Tender Relationship Specialty Start Date End Date Belén Griffin MD [address] [facility] [address] [facility] [address] [place] [address] PCP - General Family Medicine 05/07/15 documented as of this encounter
--- OUTSIDE RECORDS SUMMARY | 2023-10-28 00:48 | XMS_ITS | Encounter Summary ---
Author Organization [facility] Address [facility] [place] [address] Care Team Providers Care Fast Food Cashier Name Role Phone Maine Dunn Primary Care Provider [phone] Encounter Details Date Type Department Care Team (Late st Contact Info) Description 09/02/2014 9:30 AM EDT Ancillary Appointment Hematology [place] [address] Social History Tobacco Use Types Packs/Day Years Used Date Smoking Tobacco: Never Sex and Gender Information Value Date Recorded Sex Assigned at Not on file Gender Identity Not on file Sexual Orientation Not on file documented as of this encounter Plan of Treatment Upcoming Encounters Date Type Department Care Team (Late st Contact Info) Description 12/07/2023 12:00 PM EDT Office Visit Dermatology at [address] [address] Juan F Chappell MD [facility] [address] [place] [address] documented as of this encounter Visit Diagnoses Not on filedocumented in this encounter Care Teams Fast Food Cashier Relationship Specialty Start Date End Date Maine Dunn PA PCP - General 04/08/14 02/13/15 documented as of this encounter
--- OUTSIDE RECORDS SUMMARY | 2023-10-28 00:48 | XMS_ITS | Encounter Summary ---
Author Organization Formerly [facility] [address] Care Team Providers Care Catering Staff Member Name Role Phone Maine Dunn Primary Care Provider [phone] Encounter Details Date Type Department Care Team (Late st Contact Info) Description 06/12/2014 Notes Only Hematology Oncology at [address] [phone] Yuliet Chavez RN Social History Tobacco Use Types Packs/Day Years Used Date Smoking Tobacco: Never Sex and Gender Information Value Date Recorded Sex Assigned at Not on file Gender Identity Not on file Sexual Orientation Not on file documented as of this encounter Progress Notes * Yuliet Chavez RN - 06/12/2014 10:34 AM EDT RESEARCH NURSE OFFICE NOTE CYCLE #4 DAY #1 E1412 Randomized Phase II Open Label Study of Lenalidomide R-CHOP (R2CHOP) vs RCHOP (Rituximab, Cyclophosphamide, Doxorubicin, Vincristine and Prednisone) in Patients with Newly Diagnosed Diffuse Large B Cell Lymphoma Arm B: RCHOP repeat every 3 weeks for total of 6 cycles SUBJECTIVE Patient here for C4D1 R-CHOP. Assessed by Dr. Kimberly Mondragon, please see her note. Myriam reports feeling very fatigued since her last chemo infusion on 05/22/14. She continues to take Ativan 1.0 before bed and is sleeping well. She had about 2 1/2 weeks of nausea, really it was queasiness after her last chemo. She used Zofran and calcium carbonate which gave her good control. She verbalized that she was under alot of stress and wondered if the nausea may have been related to the anxiety she was feeling. She reports that her appetite is good and is eating well. She drinks approx. 50 oz of clear liquidsplus soups and smoothies each day. She denies any current mouth sores. She rinses her mouth with baking soda/water a few times a week- really only when I think of it. She is using generic colace, Senna and Miralax as needed, and reports that her bowels are regular. Her hemorrhoids are not gone, but are not currently problematic. Since her last visit for chemo she has had small wilder on both of her thumbs twice on the stove while cooking. She used a generic antibacterial ointment with a band-aid for a few days and now both sites are completely healed. The rash on her torso is gone, and she continues to take Acyclovir 400 mg BID. When she was in [place] on Tuesday (06/10) for a study PET/CT and lab work, Myiram picked up a new Rx for Prednisone 170 mg po x 4 days to begin taking on 06/13. She returned the empty bottles saying, Kvng put them in my pill dispenser box. On 06/10, she returned the empty prednisone bottles fromcycle 2 - 05/01/14 and cycle 3 - 05/22/14. STUDY ASSESSMENTS COMPLETED Labs and study lab kit on 06/10/14 AEs Con meds PE with VS AE/SIDE [...] times daily this week after receiving chemo. Encourage to use Zofran and Ativan as needed for nausea and anxiety. Continue using Senekot and Miralax tonight and tomorrow to avoid constipation due to antiemetics hand mixer prior to chemo. Se agrees to call or e mail me with any questions or concerns. PLAN Patient is scheduled to receive Neulasta injection on June 13, 2014, in [place], [place] She is scheduled for C5D1 on July 03, 2014, in [place], [place] She agrees to continue participation in study E1412 documented in this encounter Plan of Treatment Upcoming Encounters Date Type Department Care Team (Late st Contact Info) Description 12/07/2023 12:00 PM EDT Office Visit Dermatology at [facility] [address] [place] [address] Juan F Chappell MD [facility] [address] [address] documented as of this encounter Visit Diagnoses Not on filedocumented in this encounter Care Teams Catering Staff Member Relationship Specialty Start Date End Date Maine Dunn PA PCP - General 04/08/14 02/13/15 documented as of this encounter
--- OUTSIDE RECORDS SUMMARY | 2023-10-28 00:48 | XMS_ITS | Encounter Summary ---
[place] [address] Care Team Providers Care Circulation Librarian Name Role Phone Maine Dunn Primary Care Provider [phone] Reason for Visit * Reason Onset Date Comments Results 09/05/2014 Encounter Details Date Type Department Care Team (Late st Contact Info) Description 09/05/2014 Telephone Hematology [place] [phone] Yuliet Chavez, RN Results Social History Tobacco Use Types Packs/Day Years Used Date Smoking Tobacco: Never Sex and Gender Information Value Date Recorded Sex Assigned at Not on file Gender Identity Not on file Sexual Orientation Not on file documented as of this encounter Miscellaneous Notes * Telephone Encounter - Yuliet Chavez RN - 09/05/2014 9:35 AM EDT Images from the original note were not included. Per Dr. Mondragon's request I called Myriam and told her that her BMBx results were negative. She requested that Dr. Mondragon send the results of her PET/CT scan and BMBx done on 09/02/14, to her cousin's , Sacha Hancock (patient was unsure of spelling). She said, Dr. Mondragon has been sending all that stuff to him right along. I filled out an authorization for it. Unable to locate authorization in [employer]D-H. Release of Information Office told me that a new release form must be filled out each time records are requested unless there is a time indicated on the form. Plan to contact Dr. Mondragon's sheet metal layout mechanic with request. From: Kimberly Mondragon Sent: August 9:37 AM To: Shayy Scott Subject: RE: Myriam Vivas OK to send Kimberly Mondragon MD Director Lymphoma Program [facility] Office: [phone] From: Shayy Scott Sent: August 9:33 AM To: Kimberly Mondragon Subject: RE: Myriam Mondragon, I called Myriam and told her the BMBX was negative. She said she appreciated hearing from you last night, and requested that I ask you to send results of recent tests to her cousin???s , Sacha.She wasn???t sure how to spell his last name and guessed Diugiud. She said you have sent other clinical information to him. Thanks! Yuliet Ferrari From: Kimberly Mondragon Sent: August 9:05 AM To: Yuliet Ferrari Scott Subject: RE: Myriam Vivas Called her last night Talking about the PET at [facility] on Tuesday - we will call her Wed with the plan - probably going to biopsy that LN Pls call her and let her know that her BMBx is negative - I had not seen it when I called her last night Thanks, E Kimberly Mondragon MD Director Lymphoma Program [facility] Office: [phone] From: ShayyVonda Chavez Sent: August 8:56 AM To: Kimberly Mondragon Subject: Myriam Mondragon, I don???t see that anyone has responded to Myriam???s request for the results of her PET/CT scan or BMBX. Please let me know if there is anything I can do. Thanks, Yuliet Chavez RN Regional Clinical Research Nurse [address] [address] Pager [phone] A culture of caring From: Myriam Vivas [mailto: ] Sent: Thursday, September 04, 2014 1:45 PM To: Yuliet Chavez Subject: HI Dr. Gupta said I would hear that night or the next day.now it's another day.I emailed on the DH thing.Any thoughts? Thank you documented in this encounter Plan of Treatment Upcoming Encounters Date Type Department Care Team (Late st Contact Info) Description 12/07/2023 12:00 PM EDT Office Visit Dermatology at [facility] [address] [place] [address] Juan F Chappell MD [facility] [address] RANDE[place] [address] documented as of this encounter Visit Diagnoses Not on filedocumented in this encounter Care Teams Circulation Librarian Relationship Specialty Start Date End Date Maine Dunn PA PCP - General 04/08/14 02/13/15 documented as of this encounter
--- OUTSIDE RECORDS SUMMARY | 2023-10-28 00:48 | XMS_ITS | Encounter Summary ---
Author Organization [facility] Address [facility] [place] [address] Care Team Providers Care Basket Person Name Role Phone Maine Dunn Primary Care Provider [phone] Reason for Visit * Reason Comments Lymphoma neulasta Encounter Details Date Type Department Care Team (Late st Contact Info) Description 07/04/2014 3:30 PM EDT Infusion Hematology Oncology at [address] [phone] CLIN[address], DR MARINA HEM/ONC Lymphoma Discharge Disposition: Home Social History Tobacco Use Types Packs/Day Years Used Date Smoking Tobacco: Never Sex and Gender Information Value Date Recorded Sex Assigned at Not on file Gender Identity Not on file Sexual Orientation Not on file documented as of this encounter Last Filed Vital Signs Vital Sign Reading Time Taken Comments Blood Pressure 111/59 07/04/2014 3:25 PM EDT Pulse 83 07/04/2014 3:25 PM EDT Temperature 36.8 ??C (98.2 ??F) 07/04/2014 3:25 PM ED T Respiratory Rate 16 07/04/2014 3:25 PM EDT Oxygen Saturation - - Inhaled Oxygen Concentration - - Weight - - Height - - Body Mass Index - - documented in this encounter Progress Notes * Ana Paula Benz RN - 07/04/2014 3:32 PM EDT Treatment Started:1515 Treatment Ended:1530 Diagnosis: lymphoma Protocol E1412 Treatment: neulasta 6 mg sc abdominal tissue Pt states very tired, going to have pedicure then go home and sleep. documented in this encounter Plan of Treatment Upcoming Encounters Date Type Department Care Team (Late st Contact Info) Description 12/07/2023 12:00 PM EDT Office Visit Dermatology at [facility] [address] [place] [address] Juan F Chappell MD [facility] [address] [place] [address] documented as of this encounter Visit Diagnoses Diagnosis Lymphoma Other malignant lymphomas, unspecified site, extranodal and solid organ sites documented in this encounter Administered Medications Inactive Administered Medications - up to 3 most recent administrations Medication Order MAR Action Action Date Dose Rate Site pegfilgrastim (NEULASTA) injection 6 mg 6 mg, Subcutaneous, ONCE, 1 dose, On Cece 07/04/14 at 1530, Dose between day 2-4 of each cycle, Routine Given 07/04/2014 3:20 PM EDT 6 mg Abdominal Tissue documented in this encounter Care Teams Basket Person Relationship Specialty Start Date End Date Maine Dunn PA PCP - General 04/08/14 02/13/15 documented as of this encounter
--- OUTSIDE RECORDS SUMMARY | 2023-10-28 00:48 | XMS_ITS | Encounter Summary ---
Author Organization [facility] [place] [address] Care Team Providers Care Clinical Immunologist Name Role Phone Maine Dunn Primary Care Provider [phone] Encounter Details Date Type Department Care Team (Late st Contact Info) Description 09/02/2014 Notes Only Hematology [place] [address] Yuliet Chavez RN Social History Tobacco Use Types Packs/Day Years Used Date Smoking Tobacco: Never Sex and Gender Information Value Date Recorded Sex Assigned at Not on file Gender Identity Not on file Sexual Orientation Not on file documented as of this encounter Progress Notes * Yuliet Chavez RN - 09/02/2014 9:25 AM EDT RESEARCH NURSE OFFICE NOTE End of Treatment E1412 Randomized Phase II Open Label Study of Lenalidomide R-CHOP (R2CHOP) vs RCHOP (Rituximab, Cyclophosphamide, Doxorubicin, Vincristine and Prednisone) in Patients with Newly Diagnosed Diffuse Large B Cell Lymphoma Arm B: RCHOP repeat every 3 weeks for total of 6 cycles SUBJECTIVE Patient here for end of treatment visit. Assessed by Drs. Grande and Giancarlo, please see their notes. Myriam says she is feeling more like herself with increased energy. 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 She finds that she needs to nap once each day in the afternoon. She needs to go on COBRA health insurance for approximately 2 months and getting this set up has been anxiety producing. She was directed to her HR dept for assistance. 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 A sister in law is dying of a neuro lymphoma and this has increased the stress in her life. She has tried Tylenol PM for sleep at night, but takes Ativan 0.25 mg if she wakes up and finds it difficult to go back to sleep. Myriam said she often takes half of a 0.5 mg tablet during the day and expressed concern about becoming addicted. She sometimes feels wierd if she doesn't take any for 8-[address] Mondragon assured her that on the low dose she has been taking she shouldn't have any withdrawal symptoms and told her to continue to take lesser amounts and when she has a good day to not take any. Any Ativan prescriptions will need to come through her PCP now that her chemo is done. Denies nausea. Normal taste has returned and she is eating well. She denies having any mouth sores.She rinses her mouth with baking soda/water daily. She asked if she can discontinue this and returnto using Listerine; told pt that Listerine is too strong at this point. She denies constipation and is now using only senna BID and generic colace PRN. Her bowels are regular. She had 2 days with greenish colored BMs. I think it had to do with something I ate. Her hemorrhoids have calmed down. She denies chest or abdominal pain, SOB, nausea, numbness or tingling in feet, swelling of feel or ankles, weakness, dizziness or changes in vision Denies any rashes. She continues to take Acyclovir 400 mg BID and would like to know when she can discontinue it. Dr. Mondragon told her she can stop now. ECOG = 1 STUDY ASSESSMENTS COMPLETED Labs [...] thumb 1 05/26/14 05/31/14 Generic antibiotic ointment EDUCATION Study follow-up visits including CT scans will take place in [place], [place]. Patient agrees to contact office with any questions/concerns PLAN She is scheduled to have f/u labs, PET/CT scan, BMBX today in [place], [place]. Patient will be called with results. Myriam agrees to continue participation in study E1412 documented in this encounter Plan of Treatment Upcoming Encounters Date Type Department Care Team (Late st Contact Info) Description 12/07/2023 12:00 PM EDT Office Visit Dermatology at [address] [address] Juan F Chappell MD [facility] DR [place] [address] documented as of this encounter Visit Diagnoses Not on filedocumented in this encounter Care Teams Clinical Immunologist Relationship Specialty Start Date End Date Maine Dunn PA PCP - General 04/08/14 02/13/15 documented as of this encounter
--- OUTSIDE RECORDS SUMMARY | 2023-10-28 00:48 | XMS_ITS | Encounter Summary ---
Author Organization [facility] Address [facility] [place] [address] Care Team Providers Care Rate Clerk Passenger Name Role Phone Maine Dunn Primary Care Provider [phone] Encounter Details Date Type Department Care Team (Late st Contact Info) Description 09/02/2014 10:57 AM EDT - 09/02/2014 2:08 PM EDT Hospital Encounter [facility] [place] [phone] Kimberly Velez MD [facility] DR HEMATOLOG[place] [address] Discharge Disposition: Home Social History Tobacco Use [...] encounter Discharge Instructions * Discharge Instructions* Christen Powell, RN - 09/02/2014 11:15 AM EDT OUTPATIENT [...] 5pm or on a weekend: Call the [facility] carbon paste mixer operator at and ask for the physician educational director covering for your doctor. Instructions following [...] drainage occurs, please contact your M. D. [facility] [address] ??? [place] [address] ??? [phone] ??? [email or web address] [employer] ??? [facility] ??? [facility] ??? [facility] documented in this encounter Medications at [...] mouth every 6 hours as needed. 10/11/2014 [place]-3 Fatty Acids-Vitamin E (FISH OIL) 1,000 mg CapsuleIndications:Lymp fawn Take by mouth. 01/29/2015 Calcium 500 mg TabletIndications:Lymph vivien Take by mouth. 01/29/2015 Cholecalciferol, Vitamin D3, (VITAMIN D-3) 2,000 unit CapsuleIndications:Lymp fawn Take 1,000 Units by mouth. 01/29/2015 escitalopram (LEXAPRO) 10 mg tablet 03/08/2005 01/03/2015 documented as of this encounter Progress Notes * Michelle Kemp, SOFTWARE ADMINISTRATOR - 09/02/2014 1:04 PM EDT Pre-Sedation Assessment: [...] Yes, Date and Time of last intake: 930 last evening History of anesthetic complications: No [...] PM EDT Office Visit Dermatology at [facility] [address] [place] [address] Juan F Chappell MD [facility] DR RANDEE [place] [address] documented as of this encounter Procedures Procedure Name Priority Date/Time Associated Diagnosis Comments CHROMO REPORT ACQUIRED Routine 5 4:29 PM EDT IMMUNOPHENOTYPING FLOW CYTOMETRY (BLOOD) Routine 09/02/2014 1:30 PM EDT BONE MARROW FLOW CYTOMETRY REPORT Routine 09/02/2014 1:30 PM EDT BONE MARROW FINAL REPORT Routine 015 1:30 PM EDT IRON STAIN, BONE MARROW Routine 09/03/19 15 1:30 PM EDT BONE MARROW PANEL ([facility]/CGP/APD) Routine 09/02/2014 1:30 PM EDT ([facility] MSURG) [...] chromo report acquired (09/02/2014 4:29 PM EDT) Pathologist [facility] Cytogenetics Acquired Report Final Report [id number] ---Clinical Information--- Indication for Study: Lymphoma Specimen: ? Bone Marrow Accession: ?[id number] Collection Date/Time: 09/02/2014 13:30 Received Date/Time: ?? [...] (Electronic Signature) Verified By: Rajeev MANN, Ph.D., [facility] Director, Cytogenetics GIBRAN COREAS 09/02/2014 4:29 PM EDT Kimberly Velez MD HEMATOLOGY ORDER AYO [facility] * Bone Marrow Final Report (09/02/2014 1:30 PM EDT) Final Diagnosis [id number] ? Location: [facility] The signing pathologist has [...] large cell lymphoma seen. ??See Comment. 09/03/14 [facility] 09/04/14 Verified by: ? Dick Cooper MD ?Hematopathologist ?(Electronic Signature) The attending pathologist whose signature appears on this report has reviewed all diagnostic slides and has edited the gross and/or microscopic portion of the report in rendering the final pathologic diagnosis. . Comment Flow analysis supports the above findings. ??Previous bone marrow, -, is reviewed. ? Pathology Flow Cytometry Report Clinical Information discordant lymphoma Preparation FCM: [id number] [id number] Markers Cells for immunophenotypic analysis were derived [...] 5, 7). There is no increase in PB56-qrjrkzsw/CD3-neg NK cells. ? Diagnosis: ?? No significant [...] clinical laboratory testing. 09/04/2014 2:58 PM EDT [facility] BONE MARROW STRUCTURE / Unknown 09/02/2014 1:30 PM EDT 09/02/2014 1:30 PM EDT Kimberly Velez MD PATHOLOGY/CYTOLO GY ORDERABLES Performing Organization Address [facility]/State/ZIP Co de Phone Number [facility] [place] [address] * Bone Marrow Flow Cytometry Report (09/02/2014 1:30 PM EDT) Bone Marrow Flow Cytometry Report ? [facility] ? Provider: ?? KIMBERLY VELEZ Pt. Name: ?? AP MYRIAM Tatianna ?M ? Acc #: [id number] ? Pt. ? Col Date: ?? 09/02/2014 ? /Sex: ?1950,(63 years),Female ? Rec Date: ?? 09/02/2014 ? LOC: ?[facility] ? ANALYTICAL CELL PATHOLOGY ? ---Clinical Information--- ? discordant lymphoma ? ---Preparation--- ? FCM: [id number] ? [id number] ? ---Markers--- ? Cells for immunophenotypic analysis [...] 7). There is ? no increase in AL60-snlbttdr/CD3-ne g NK cells. ?Diagnosis: ?? No significant [...] the Clinical Flow Cytometry Laboratory at [facility] ? Center. It has not been cleared or approved by the U.S. Food and Drug ? Administration. ??The FDA has determined ? [facility] ? Provider: ?? KIMBERLY VELEZ Pt. Name: ?? MYRIAM DE SOUZA ?M ? Acc #: ?[id number] ? Pt. ? Col Date: ?? 09/02/2014 [...] MD PATHOLOGY/CYTOLO GY ORDERABLES Performing Organization Address [facility] de Phone Number EMIRDANIA GEEIUM * Immunophenotyping Flow Cytometry (09/02/2014 1:30 PM EDT) Immunophenotyping Flow See Comment GIBRAN COREAS Comment: When completed by the Pathologist, the Flow Cytometry Report ([id number]) will display under the Pathology Results section within eDH. Bone marrow specimen (specimen) 09/02/2014 1:30 PM EDT 09/02/2014 1:54 PM EDT Narrative Resulting Agency Comment Spec In Lab Kimberly Velez MD HEMATOLOGY ORDER AYO Performing Organization Address [facility] de Phone Number GIBRAN DEWAYNEENNIUM * Iron Stain, Bone Marrow (09/02/2014 1:30 PM EDT) Bone Marrow Iron Stain See Comment GIBRAN GEEIUM Comment:See Bone Marrow Repo rt [id number] under Hematopathology Reports. Bone marrow specimen (specimen) 09/02/2014 1:30 PM EDT 09/02/2014 1:55 PM EDT Narrative Resulting Agency Comment Spec In Lab Kimberly Velez MD HEMATOLOGY ORDER AYO Performing Organization Address City/[facility]/[place] Co de Phone Number EMIRDANIA BUCHANANISAIAHIUM documented in this encounter Visit Diagnoses Not on filedocumented in this encounter Administered Medications Inactive Administered Medications - up to 3 most recent administrations Medication Order MAR Action Action Date Dose Rate Site sodium chloride 0.9% infusion 100 mL/hr, Intravenous, [...] RN) documented in this encounter Care Teams Rate Clerk Passenger Relationship Specialty Start Date End Date Maine Dunn PA PCP - General 04/08/14 02/13/15 documented as of this encounter
--- OUTSIDE RECORDS SUMMARY | 2023-10-28 00:48 | XMS_ITS | Encounter Summary ---
Author Organization [facility] Address [facility] [place] [address] Care Team Providers Care Professional System Administrator Name Role Phone Maine Dunn Primary Care Provider [phone] Reason for Visit * Reason Comments Medication Refill Encounter Details Date Type Department Care Team (Late st Contact Info) Description 08/07/2014 Refill Hematology [place] [address] Kimberly Burnett APRN [facility] DR HEMATOLOGY [place] [address] Social History Tobacco Use Types Packs/Day Years [...] [facility] [address] [place] [address] Juan F Chappell MD [facility] DR RANDEE [place] [address] documented as of this encounter Visit Diagnoses Not on filedocumented in this encounter Care Teams Professional System Administrator Relationship Specialty Start Date End Date Maine Dunn PA PCP - General 04/08/14 02/13/15 documented as of this encounter
--- OUTSIDE RECORDS SUMMARY | 2023-10-28 00:48 | XMS_ITS | Encounter Summary ---
Author Organization [facility] Address [facility] [place] [address] Care Team Providers Care Nutrition Helper Name Role Phone Maine Dunn Primary Care Provider [phone] Reason for Visit * Reason Comments Medication Refill Encounter Details Date Type Department Care Team (Late st Contact Info) Description 08/22/2014 Refill Hematology [place] [address] Kimberly Burnett APRN [facility] DR HEMATOLOGY [place] [address] Social History Tobacco Use Types Packs/Day Years Used Date Smoking Tobacco: Never Sex and Gender Information Value Date Recorded Sex Assigned at Not on file Gender Identity Not on file Sexual Orientation Not on file documented as of this encounter Plan of Treatment Upcoming Encounters Date Type Department Care Team (Late st Contact Info) Description 12/07/2023 12:00 PM EDT Office Visit Dermatology at [facility] [address] [place] [phone] Juan F Chappell MD [facility] DR RANDEE [place] [address] documented as of this encounter Visit Diagnoses Not on filedocumented in this encounter Care Teams Nutrition Helper Relationship Specialty Start Date End Date Maine Dunn PA PCP - General 04/08/14 02/13/15 documented as of this encounter
--- OUTSIDE RECORDS SUMMARY | 2023-10-28 00:48 | XMS_ITS | Encounter Summary ---
Author Organization [facility]ly [facility] Address [facility] [place] [address] Care Team Providers Care Retail Analyst Name Role Phone Maine Dunn Primary Care Provider [phone] Reason for Visit * Reason Comments Injections neulasta day 2 Encounter Details Date Type Department Care Team (Late st Contact Info) Description 06/13/2014 4:00 PM EDT Office Visit Hematology Oncology at [address] [address] CLINIC, DR MARINA HEM/ONC Raj Borges MD [facility] HEMATOLOGY [place] [address] Lymphoma Discharge Disposition: Home Social History Tobacco Use Types Packs/Day Years Used Date Smoking Tobacco: Never Sex and Gender Information Value Date Recorded Sex Assigned at Not on file Gender Identity Not on file Sexual Orientation Not on file documented as of this encounter Last Filed Vital Signs Vital Sign Reading Time Taken Comments Blood Pressure 110/60 06/13/2014 1:55 PM EDT Pulse 96 06/13/2014 1:55 PM EDT Temperature 36.8 ??C (98.2 ??F) 06/13/2014 1:55 PM ED T Respiratory Rate - - Oxygen Saturation 97% 06/13/2014 1:55 PM EDT Inhaled Oxygen Concentration - - Weight - - Height - - Body Mass Index - - documented in this encounter Progress Notes * Carrie Rodriguez - 06/13/2014 3:59 PM EDT Infusion Note Diagnosis: Lymphoma Treatment: Neulasta Injection Neulasta 6 mg injected in right abdomen. Patient aware to call clinic with any questions or concerns. Plan: Return to clinic as scheduled. documented in this encounter Plan of Treatment Upcoming Encounters Date Type Department Care Team (Late st Contact Info) Description 12/07/2023 12:00 PM EDT Office Visit Dermatology at [address] [place] [address] Juan F Chappell MD [facility] DR RANDEE [place] [address] documented as of this encounter Visit Diagnoses Diagnosis Lymphoma Other malignant lymphomas, unspecified site, extranodal and solid organ sites documented in this encounter Administered Medications Inactive Administered Medications - up to 3 most recent administrations Medication Order MAR Action Action Date Dose Rate Site pegfilgrastim (NEULASTA) injection 6 mg 6 mg, Subcutaneous, ONCE, 1 dose, On Cece 06/13/14 at 1600, Routine Given 06/13/2014 3:55 PM EDT 6 mg documented in this encounter Care Teams Retail Analyst Relationship Specialty Start Date End Date Maine Dunn PA PCP - General 04/08/14 02/13/15 documented as of this encounter
--- OUTSIDE RECORDS SUMMARY | 2023-10-28 00:48 | XMS_ITS | Encounter Summary ---
Author Organization [facility] Address [facility] [place] [address] Care Team Providers Care Rack Maker Name Role Phone Maine Dunn Primary Care Provider [phone] Encounter Details Date Type Department Care Team (Late st Contact Info) Description 07/04/2014 Notes Only Hematology/Oncology at [address] [phone] Markell Drew, JAKE [facility] [place] [place] [address] Social History Tobacco Use Types Packs/Day Years Used Date Smoking Tobacco: Never Sex and Gender Information Value Date Recorded Sex Assigned at Not on file Gender Identity Not on file Sexual Orientation Not on file documented as of this encounter Progress Notes * Markell Drew, JAKE - 07/04/2014 8:28 AM EDT Yuliet Ferrari, that sounds fine. I spoke to her on the phone the other day. She is doing well, reports no issues. So, I will ask that she be removed from the schedule on 07/26 and followed, prn. Arminda ===View-only below this line=== ----- Message ----- From: Yuliet Chavez RN Sent: 07/03/2014 10:25 AM To: Markell Drew RD Subject: appt on 07/26 Myriam Sage is scheduled to see you on Tuesday, 07/26, in [facility]. She is here today for her C5D1 infusion. Over the last month she has not had any problem with eating or nausea. She told me she doesn't feel she needs to see you again. She would like to cancel that appt. unless there is something more that you wanted to discuss with her. Please let me know what your thoughts are and if this appt. Is necessary. Thanks, Yuliet Chavez RN Regional Research Nurse documented in this encounter Plan of Treatment Upcoming Encounters Date Type Department Care Team (Late st Contact Info) Description 12/07/2023 12:00 PM EDT Office Visit Dermatology at [facility] [address] [place] [address] Juan F Chappell MD [facility] DR RAN[place] [address] documented as of this encounter Visit Diagnoses Not on filedocumented in this encounter Care Teams Rack Maker Relationship Specialty Start Date End Date Maine Dunn PA PCP - General 04/08/14 02/13/15 documented as of this encounter
--- OUTSIDE RECORDS SUMMARY | 2023-10-28 00:49 | XMS_ITS | Encounter Summary ---
[place] [address] Care Team Providers Care Rod Pointer Name Role Phone Maine Dunn Primary Care Provider [phone] Reason for Visit * Reason Comments Other Encounter Details Date Type Department Care Team (Late st Contact Info) Description 04/15/2014 Telephone Hematology [place] [address] Erika Workman, RN Social History Tobacco Use Types Packs/Day Years Used Date Smoking Tobacco: Never Sex and Gender Information Value Date Recorded Sex Assigned at Not on file Gender Identity Not on file Sexual Orientation Not on file documented as of this encounter Miscellaneous Notes * Telephone Encounter - Erika Workman RN - 04/15/2014 5:03 PM EST RESEARCH NURSE TELEPHONE NOTE E1412: Randomized Phase II Open Label Study of Lenalidomide R-CHOP (R2CHOP) vs RCHOP (Rituximab, Cyclophosphamide, Doxorubicin, Vincristine and Prednisone) 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 Myriam called, asking for a script for a sleeping aid. She is taking 2 of the tylenol PM's, ativan which isn't doing much, or lasting very long. She didn't know if we could call in something (she mentioned Ambien) for her. Gee in [place] on [address]. Pt number [phone] Ok to leave [facility]. Thanks! M Return call placed to patient, who states that she has had increased difficulty staying asleep at night. Generally has taken Tylenol PM every night to help sleep in the past. However, has recently increased her dose to 2 tylenol PMs, which allows her to sleep for approximately 3-4 hours, at whichpoint she awakens. Has tried to take Ativan at bedtime instead of the Tylenol PM, which has not resulted in any better sleep. Last night, she took 2 tylenol PMs and fell asleep for a few hours, afterwhich time she took 1/2 ativan. Discussed that insomnia was likely secondary to steroid treatment. Of note, will be finished with her prednisone as of tomorrow AM. Myriam reports that she does not want to feel groggy during the day and therefore would like advice as to what she could try. Discussed all with Dr. Owens, who advises that patient take 2 ativan doses (1 dose = 0.5 mg) at bedtime tonight for insomnia. Return call placed to patient. Myriam instructed to try ativan 1 mg at bedtime tonight to mitigate insomnia. RN to contact patient tomorrow to evaluate if this dose was adequate without side effects. Patient verbalizes understanding of, and agreement with, plan. Advised to contact this office for any questions/concerns, as well as for any new or worsening symptoms. documented in this encounter Plan of Treatment Upcoming Encounters Date Type Department Care Team (Late st Contact Info) Description 12/07/2023 12:00 PM EDT Office Visit Dermatology at [facility] [address] [place] [address] Juan F Chappell MD [facility] DR RANDEE [place] [address] documented as of this encounter Visit Diagnoses Not on filedocumented in this encounter Care Teams Rod Pointer Relationship Specialty Start Date End Date Maine Dunn PA PCP - General 04/08/14 02/13/15 documented as of this encounter
--- OUTSIDE RECORDS SUMMARY | 2023-10-28 00:49 | XMS_ITS | Encounter Summary ---
[place] [address] Care Team Providers Care Hospital Scientist Name Role Phone Maine Dunn Primary Care Provider [phone] Reason for Visit * Reason Onset Date Comments Hemorrhoids 04/19/2014 Encounter Details Date Type Department Care Team (Late st Contact Info) Description 04/19/2014 Telephone Hematology [place] [phone] Yuliet Chavez RN Hemorrhoids Social History Tobacco Use Types Packs/Day Years Used Date Smoking Tobacco: Never Sex and Gender Information Value Date Recorded Sex Assigned at Not on file Gender Identity Not on file Sexual Orientation Not on file documented as of this encounter Miscellaneous Notes * Telephone Encounter - Yuliet Chavez RN - 04/19/2014 11:18 AM EST Study Number: E1412: Randomized Phase II Open Label Study of Lenalidomide R-CHOP (R2CHOP) vs RCHOP (Rituximab, Cyclophosphamide, Doxorubicin, Vincristine and Prednisone) in 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 She is craving cheese and is drinking approximately 5 cups of water each day. She has also been eating a lot of soups. I know I'm not exercising enough, I'm just sitting here most of the time. Her BMs are somewhat dry and require that she push to expel.. She said her head has been congested and her mouth and nose have been dry over the last few days which is annoying. She felt some pressure in her ears after stopping taking prednisone on 04/16/14. She has been taking Tylenol 1000 mg occasionally since stopping the prednisone with good effect. She is using baking soda and water rinses as directed for oral sores. She reports that the sores are much better. She has not been able tolerate acidic foods. Education Provided: Instructed patient that cheese can be constipating, to increase fluid intake to 8 cups/day and to use an OTC stool softened once or twice/day. If she continues to have constipated stools she can add a fiber product (ie: Citrucel or Metamucil as per package direction). Also told patient she should increase exercise as tolerated. Instructed to continue using baking soda and water QID for mucositis symptoms. I gave Myriam my direct number and explained that she can call me or the clinic anytime she has questions or concerns. Plan: Pt agrees to continue on study E1412 per protocol. Next study visit on 05/01/14. Patient understands and agrees with plan and knows she can call the clinic with any further questions or concerns. documented in this encounter Plan of Treatment Upcoming Encounters Date Type Department Care Team (Late st Contact Info) Description 12/07/2023 12:00 PM EDT Office Visit Dermatology at [facility] [address] [place] [phone] Juan F Chappell MD [facility] DR RANDEE [place] [address] documented as of this encounter Visit Diagnoses Not on filedocumented in this encounter Care Teams Hospital Scientist Relationship Specialty Start Date End Date Maine Dunn PA PCP - General 04/08/14 02/13/15 documented as of this encounter
--- OUTSIDE RECORDS SUMMARY | 2023-10-28 00:49 | XMS_ITS | Encounter Summary ---
Author Organization [facility] Address [facility] [place] [address] Care Team Providers Care Consulting Sales Manager Name Role Phone Maine Dunn Primary Care Provider [phone] Encounter Details Date Type Department Care Team (Late st Contact Info) Description 05/06/2014 Orders Only Hematology [place] [address] Kimberly Mondragon MD [facility] DR H[place] [address] Lymphoma Social History Tobacco Use Types Packs/Day [...] [facility] [address] [place] [phone] Juan F Chappell MD [facility] DR RANDEE [place] [address] documented as of this encounter Visit Diagnoses Diagnosis Lymphoma Other malignant lymphomas, unspecified site, extranodal and solid organ sites documented in this encounter Care Teams Consulting Sales Manager Relationship Specialty Start Date End Date Maine Dunn PA PCP - General 04/08/14 02/13/15 documented as of this encounter
--- OUTSIDE RECORDS SUMMARY | 2023-10-28 00:49 | XMS_ITS | Encounter Summary ---
Author Organization [facility] [place] [address] Care Team Providers Care Psychologist Social Name Role Phone Maine Dunn Primary Care Provider [phone] Reason for Visit * Reason Comments Chemotherapy HOP - Protocol E14 12 Encounter Details Date Type Department Care Team (Late st Contact Info) Description 05/22/2014 10:00 AM EDT Office Visit Hematology Oncology at [address] [address] CLINIC, DR MARINA HEM/ONC Lymphoma Social History Tobacco Use Types Packs/Day Years Used Date Smoking Tobacco: Never Sex and Gender Information Value Date Recorded Sex Assigned at Not on file Gender Identity Not on file Sexual Orientation Not on file documented as of this encounter Progress Notes * Sarah Altamirano RN - 05/22/2014 12:29 PM EDT INFUSION THERAPY ADMINISTRATION NOTES DIAGNOSIS: DLBCL CYCLE #: 3 REASON FOR VISIT: HOP (Protocol E1412, participant number [id number]) HOMERO Miguel is here for her RCHOP chemotherapy. She is doing well and offers no complaints. OBJECTIVE LAB DATA: wbc 5.29, hgb 10.9, plts 303k, anc 3.46, creatinine 0.7 IV ACCESS: Mediport Right Chest BLOOD RETURN: yes, excellent ANY S/S OF INFECTION/EXTRAVASATIONS: None IV FLUSHED WITH: 20cc NS and 500 units Heparin IV DISCONTINUED: yes Pre administration: Chemotherapy orders independently verified for drug name, route, and dosage per patient's height, weight and BSA by Zaki Altamirano RN and Brandon Thomas Rph REACTIONS (DESCRIPTION, TIME, INTERVENTION AND EFFECTIVENESS) none ASSESSMENT Ms. Vivas was awake, alert and she tolerated treatment well. PLAN Return to clinic tomorrow for Neulasta Injection. documented in this encounter Plan of Treatment Upcoming Encounters Date Type Department Care Team (Late st Contact Info) Description 12/07/2023 12:00 PM EDT Office Visit Dermatology at [facility] [address] [place] [address] Juan F Chappell MD [facility] DR [place] [address] documented as of this encounter Visit Diagnoses Diagnosis Lymphoma Other malignant lymphomas, unspecified site, extranodal and solid organ sites documented in this encounter Administered Medications Inactive Administered Medications - up to 3 most recent administrations Medication Order MAR Action Action Date Dose Rate Site acetaminophen (TYLENOL) tablet 650 mg 650 mg, Oral, ONCE, 1 dose, On Tue05/22/14 at 0945, 30 to 60 minutes prior to riTUXimab. Maximum dose of acetaminophen is 4000 mg from all sources in 24 hours., Routine Given 05/22/2014 10:40 AM EDT 650 mg cyclophosphamide (CYTOXAN) 1,300 mg in dextrose 5% 315 mL chemo infusion 1,300 mg, Intravenous, ONCE, 1 dose, On Tue05/22/14 at 0945, Administer over 30 Minutes New Bag 05/22/2014 2:41 PM EDT 1,300 mg 630 mL/hr diphenhydrAMINE (BENADRYL) capsule 50 mg 50 mg, Oral, ONCE, 1 dose, On Tue05/22/14 at 0945, 30 to 60 minutes prior to riTUXimab, Routine Given 05/22/2014 10:40 AM EDT 50 mg DOXOrubicin (ADRIAMYCIN) chemo injection 85 mg 85 mg, Intravenous, ONCE, 1 dose, On Tue05/22/14 at 0945, Administer over 6 Minutes, Total Dose 85 mg = 42.5 mL divided into 2 syringes. Each syringe contains 42.5 mg = 21.25 mL. Infuse each syringe over a minimum of 3 minutes. Vesicant/irritant. Avoid extravasation. Given 05/22/2014 2:19 PM EDT 85 mg 425 mL/hr ondansetron (ZOFRAN) tablet 16 mg 16 mg, Oral, ONCE, 1 dose, On Tue05/22/14 at 0945, Pre-chemotherapy on day 1, Routine Given 05/22/2014 10:40 AM EDT 16 mg predniSONE (DELTASONE) tablet 150 mg 150 mg, Oral, ONCE, 1 dose, On Tue05/22/14 at 0945, Total dose = 170 mg. Administer 30 to 60 minutes prior to riTUXimab on day 1., Routine Given 05/22/2014 10:41 AM EDT 150 mg predniSONE (DELTASONE) tablet 20 mg 20 mg, Oral, ONCE, 1 dose, On Tue05/22/14 at 0945, Total dose = 170 mg. Administer 30 to 60 minutes prior to riTUXimab on day 1., Routine Given 05/22/2014 10:41 AM EDT 20 mg riTUXimab (RITUXAN) 650 mg in sodium chloride 0.9% 325 mL infusion 650 mg, Intravenous, ONCE, 1 dose, On Tue05/22/14 at 0945, Round medication dose to the nearest 100 mg: Keep dose as calculated (DO NOT round), Patient is a candidate for rapid infusion riTUXimab? No New Bag 05/22/2014 11:32 AM EDT 650 mg vinCRIStine (ONCOVIN) chemo injection 2 mg 2 mg, Intravenous, ONCE, 1 dose, On Tue05/22/14 at 0945, Administer over 2 Minutes, FOR IV USE ONLY. FATAL IF GIVEN BY OTHER ROUTES. Vesicant/irritant Avoid extravasation Given 05/22/2014 2:35 PM EDT 2 mg 60 mL/hr documented in this encounter Care Teams Psychologist Social Relationship Specialty Start Date End Date Maine Dunn PA PCP - General 04/08/14 02/13/15 documented as of this encounter
--- OUTSIDE RECORDS SUMMARY | 2023-10-28 00:49 | XMS_ITS | Encounter Summary ---
Author Organization [facility] Address [facility] [place] [address] Care Team Providers Care Coupon Redemption Clerk Name Role Phone Maine Dunn Primary Care Provider [phone] Encounter Details Date Type Department Care Team (Late st Contact Info) Description 05/01/2014 External [place] [address] Kimberly Mondragon MD [facility] [address] [place] [address] Social History Tobacco Use Types Packs/Day Years [...] PM EDT Office Visit Dermatology at [facility] [address] [place] [address] Juan F Chappell MD [facility] DR R[place] [address] documented as of this encounter Visit Diagnoses Not on filedocumented in this encounter Care Teams Coupon Redemption Clerk Relationship Specialty Start Date End Date Maine Dunn PA PCP - General 04/08/14 02/13/15 documented as of this encounter
--- OUTSIDE RECORDS SUMMARY | 2023-10-28 00:49 | XMS_ITS | Encounter Summary ---
Author Organization [facility] [place] [address] Care Team Providers Care Dairy Technician Name Role Phone Maine Dunn Primary Care Provider Encounter Details Date Type Department Care Team (Late st Contact Info) Description 05/22/2014 Notes Only Hematology Oncology at [address] [phone] Myriam Miles TRACK AND FIELD COACH OFFICE OF CARE MANAGEMENT Social History Tobacco Use Types Packs/Day Years Used Date Smoking Tobacco: Never Sex and Gender Information Value Date Recorded Sex Assigned at Not on file Gender Identity Not on file Sexual Orientation Not on file documented as of this encounter Progress Notes * Myriam Miles MSW - 05/23/2014 10:57 AM EDT Reason for Referral: Brief assessment of social and emotional needs. Met with pt during infusion 4-8-15. Social Supports: Pt . She has 2 daughters and both live out of state. She has one young grandson. Pt reports she has great friends and supportive co-workers. Living Situation/Daily Activities/Transportation: Pt lives in [place]. She manages her daily chores and activities. She does not expect any issues with transportation. 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 She has some flexibility with her work hours and is working some from home. Informed her of the Patient Financial Services dept if she has any insurance related questions. She did not indicate any financial issues atthis time. Advance Directives: Pt has completed her advance directives. With pt's permission a copy of her advance directive was retrieved from [facility] medical records for her [facility] record. [place] Status: Utilization of Community Resources: Discussed participation in the [place] [facility]. Pt agreeable and provided her with a program brochure. TC Katina Vuong RN, Chronic Associate Director Financial Aid at [facility]. Adjustment to Illness/Mental Health Issues: Pt indicated she has a private therapist who she sees on a regular basis. She has had some significant life changes this past year with a divorce and now her health issues. Identified Needs: Pt did not identify any specific needs at this time. Referrals: VOP Assessment: Good support system. Has additional mental health support in place. Plan: Informed pt of my availability and will follow for support and resources. documented in this encounter Plan of Treatment Upcoming Encounters Date Type Department Care Team (Late st Contact Info) Description 12/07/2023 12:00 PM EDT Office Visit Dermatology at [facility] [address] [place] [address] Juan F Chappell MD [facility] DR RANDE[place] [address] documented as of this encounter Visit Diagnoses Not on filedocumented in this encounter Care Teams Dairy Technician Relationship Specialty Start Date End Date Maine Dunn PA PCP - General 04/08/14 02/13/15 documented as of this encounter
--- OUTSIDE RECORDS SUMMARY | 2023-10-28 00:49 | XMS_ITS | Encounter Summary ---
Author Organization Formerly [facility] Address [facility] [place] [address] Care Team Providers Care Risk Control Manager Name Role Phone Maine Dunn Primary Care Provider [phone] Encounter Details Date Type Department Care Team (Late st Contact Info) Description 04/12/2014 External [place] [address] Kimberly Mondragon MD [facility] [address] [place] [address] Social History Tobacco Use Types Packs/Day Years [...] Dermatology at [facility] [address] [place] [address] Juan F Chappell MD [facility] [address] R[address] [place] [address] documented as of this encounter Visit Diagnoses Not on filedocumented in this encounter Care Teams Risk Control Manager Relationship Specialty Start Date End Date Maine Dunn PA PCP - General 04/08/14 02/13/15 documented as of this encounter
--- OUTSIDE RECORDS SUMMARY | 2023-10-28 00:49 | XMS_ITS | Encounter Summary ---
Author Organization [facility] Address [facility] [place] [address] Care Team Providers Care Paralegal Specialist Name Role Phone Maine Dunn Primary Care Provider [phone] Encounter Details Date Type Department Care Team (Late st Contact Info) Description 05/21/2014 Orders Only Hematology [place] [address] [facility] [address] [place] [address] Diffuse large B cell lymphoma Social History [...] at [facility] [address] [place] [id number] Juan F Chappell MD [facility] [address] [place] [address] documented as of this encounter Visit Diagnoses Diagnosis Diffuse large B cell lymphoma Other malignant lymphomas, unspecified site, extranodal and solid organ sites documented in this encounter Care Teams Paralegal Specialist Relationship Specialty Start Date End Date Maine Dunn PA PCP - General 04/08/14 02/13/15 documented as of this encounter
--- OUTSIDE RECORDS SUMMARY | 2023-10-28 00:49 | XMS_ITS | Encounter Summary ---
Author Organization [facility] Address [facility] [place] [address] Care Team Providers Care Acquisition Lead Name Role Phone Maine Dunn Primary Care Provider [phone] Reason for Visit * Reason Comments Chemotherapy ht/wt check per prot ocol before chemo Encounter Details Date Type Department Care Team (Late st Contact Info) Description 05/21/2014 2:00 PM EDT Office Visit Hematology Oncology at [address] [address] CLIN[address], DR MARINA HEM/ONC Raj Borges MD [facility] [place] [address] Lymphoma Discharge Disposition: Home Social History Tobacco [...] - Inhaled Oxygen Concentration - - Weight 66.9 kg (147 lb 8 oz) 05/21/2014 9:00 AM EDT Height 159 cm (5' 2.6) 05/21/2014 9:00 AM EDT Body Mass Index 26.47 05/21/2014 9:00 AM EDT documented in this encounter Progress Notes * Carrie Rordiguez - 05/21/2014 9:34 AM EDT Treatment Started: 929 Treatment Ended: 931 Diagnosis: Lymphoma Treatment: Height/weight check for chemo 05/22 Return to clinic 05/22 documented in this encounter Plan of Treatment Upcoming Encounters Date Type Department Care Team (Late st Contact Info) Description 12/07/2023 12:00 PM EDT Office Visit Dermatology at [address] [address] Juan F Chappell MD [facility] DR [place] [address] documented as of this encounter Visit Diagnoses Diagnosis Lymphoma Other malignant lymphomas, unspecified site, extranodal and solid organ sites documented in this encounter Care Teams Acquisition Lead Relationship Specialty Start Date End Date Maine Dunn PA PCP - General 04/08/14 02/13/15 documented as of this encounter
--- OUTSIDE RECORDS SUMMARY | 2023-10-28 00:49 | XMS_ITS | Encounter Summary ---
Author Organization [facility] Address [facility] [place] [address] Care Team Providers Care It Software Engineer Name Role Phone Maine Dunn Primary Care Provider [phone] Encounter Details Date Type Department Care Team (Late st Contact Info) Description 04/30/2014 External Results [place]ematology [place] [address] Kimberly Mondragon MD [facility] DR HEMATOLOGY [place] [address] Social History Tobacco Use Types Packs/Day Years [...] [facility] [address] [place] [phone] Juan F Chappell MD [facility] DR RANDEE [place] [address] documented as of this encounter Visit Diagnoses Not on filedocumented in this encounter Care Teams It Software Engineer Relationship Specialty Start Date End Date Maine Dunn PA PCP - General 04/08/14 02/13/15 documented as of this encounter
--- OUTSIDE RECORDS SUMMARY | 2023-10-28 00:49 | XMS_ITS | Encounter Summary ---
Author Organization [facility] Address [facility] [place] [address] Care Team Providers Care Sap Fico Architect Name Role Phone Dunia Calderon MD Primary Care Provider Reason for Visit * Reason Comments Follow-up Encounter Details Date Type Department Care Team (Late st Contact Info) Description 04/02/2014 3:00 PM EST Follow-Up Hematology [place] [id number] Kimberly Mondragon MD [facility] [address] HEMATOLOGY [place] [address] Diffuse large B cell lymphoma; Lymphoma Discharge Disposition: Home Social History Tobacco Use Types Packs/Day Years Used Date Smoking Tobacco: Never Sex and Gender Information Value Date Recorded Sex Assigned at Not on file Gender Identity Not on file Sexual Orientation Not on file documented as of this encounter Last Filed Vital Signs Vital Sign Reading Time Taken Comments Blood Pressure 141/59 04/02/2014 2:54 PM EST Pulse 102 04/02/2014 2:54 PM EST Temperature 36.5 ??C (97.7 ??F) 04/02/2014 2:54 PM ES T Respiratory Rate 18 04/02/2014 2:54 PM EST Oxygen Saturation 99% 04/02/2014 2:54 PM EST Inhaled Oxygen Concentration - - Weight 67.4 kg (148 lb 9.4 oz) 04/02/2014 2:54 P M EST Height 160.1 cm (5' 3.03) 04/02/2014 2:54 PM ES T Body Mass Index 26.3 04/02/2014 2:54 PM EST documented in this encounter Progress Notes * Kimberly Mondragon MD - 04/02/2014 10:34 [place] [address] FOLLOW-UP PATIENT EVALUATION PROBLEM LIST: Patient Active Problem List Diagnosis ??? 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 PET with stage III A disease. BMBx with low grade lymphoma; no large cell. LDH = 412. IPI = 3 (age,stage, LDH) Plan for RCHOP chemo vs ECOG protocol. ??? Depression with anxiety INTERIM HISTORY OF PRESENT ILLNESS: It was my pleasure to see Myriam De Souza back in clinic today. Myriam De Souza is a 63 y.o. 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 We reviewed her staging studies - listed below. Given that her disease burden is more extensive then originally appreciated, I recommended that she cancel her trip for next week so that we can proceed with chemotherapy. She is accompanied by her sig other, Ray. LINDSAY Energy level:stable - perhaps more fatiqued. Pain: No Appetite:good Fevers/chills/sweats:No Bruising/bleeding/melena:No Recent infections:No HEENT: negative Nausea/vomiting/diarrhea/constipation:No SOB/HAUSER/chest pain:No Change in adenopathy or other masses:No Unexpected weight loss or gain:No Skin rashes or petechiae:No Musculoskeletal complaints:No Extremities: Negative upper and lower bilaterally Neurologic symptoms:No Mood: Normal Sleep: Difficulty sleeping MEDS: Outpatient Prescriptions Marked as Taking for the 04/02/14 encounter (Follow-Up) with Kimberly Mondragon MD Medication Sig Dispense Refill ??? Cameron-3 Fatty Acids-Vitamin E (FISH OIL) 1,000 mg Capsule Take by mouth. ??? Calcium 500 mg Tablet Take by mouth. ??? Cholecalciferol, Vitamin D3, (VITAMIN D-3) 2,000 unit Capsule Take by mouth. ??? LORazepam (ATIVAN) 0.5 mg Tablet Take 0.5 mg by mouth every 6 hours as needed for Anxiety. ??? escitalopram (LEXAPRO) 10 mg tablet Allergies: No Known Allergies INTERIM SOCIAL HISTORY Changes in job, home situation, tobacco or alcohol use: see HPI PHYSICAL EXAM BP 141/59 Pulse 102 Temp(Src) 36.5 ??C (97.7 ??F) (Oral) Resp 18 Ht 160.1 cm (5' 3.03) Wt 67.4 kg (148 lb 9.4 oz) BMI 26.30 kg/m2 SpO2 99% Body surface area is 1.73 meters squared. GENERAL: Myriam De Souza appears well and is in no acute [...] previous visit (from the past 72 hour(s)). Results for MYRIAM DE SOUZA ( ) as of 04/02/2014 22:35 Ref. Range 03/28/2014 10:56 WBC Latest Range: 4.0-10.0 x10(3)/mcL 7.5 RBC Latest Range: 3.93-5.22 x10(6)/mcL 4.03 Hemoglobin Latest Range: 11.2-15.7 gm/dL 11.9 Hematocrit Latest Range: 34.0-45.0 % 34.9 MCV Latest Range: 79.0-94.0 fL 86.6 MCH Latest Range: 26.6-32.2 pg 29.5 MCHC Latest Range: 32.0-36.5 gm/dL 34.1 RDWSD Latest Range: 35.0-46.0 fL 41.7 RDWCV Latest Range: 10.9-14.4 % 13.2 Platelets Latest Range: 145-370 x10(3)/mcL 157 MPV Latest Range: 9.0-12.0 fL 8.9 (L) Neutr Abs (ANC) Latest Range: 1.50-6.30 x10(3)/mcL 3.58 Neutrophils % No range found 47.8 Immature Gran % No range found 0.10 Lymphocytes % No range found 41.7 Monocytes % No range found 4.9 Eosinophils % No range found 4.4 Basophils % No range found 1.1 [place] Gran Abs Latest Range: 0.00-0.05 x10(3)/mcL 0.01 Lymphocytes Abs Latest Range: 1.0-3.6 x10(3)/mcL 3.1 Monocyte Abs Latest Range: 0.2-1.0 x10(3)/mcL 0.4 Eosinophils Abs Latest Range: 0.0-0.5 x10(3)/mcL 0.3 Basophils Abs Latest Range: 0.0-0.2 x10(3)/mcL 0.1 Sodium Latest Range: 135-145 mmol/L 141 Potassium Latest Range: 3.5-5.0 mmol/L 3.9 Chloride Latest Range: 98-107 mmol/L 100 CO2 Latest Range: 22-31 mmol/L 28 Anion Gap Latest Range: 5-15 mmol/L 13 BUN Latest Range: 8-18 mg/dL 24 (H) Creatinine Latest Range: 0.70-1.20 mg/dL 0.64 (L) Estimated GFR Latest Range: >=60 >60 Glucose Lvl Latest Range: 60-199 mg/dL 88 Calcium Latest Range: 8.5-10.5 mg/dL 10.3 Uric Acid Latest Range: 2.5-6.5 mg/dL 3.1 Total Protein Latest Range: 6.4-8.3 gm/dL 7.4 Albumin Latest Range: 3.2-5.2 gm/dL 4.8 Total Bilirubin Latest Range: 0.2-1.3 mg/dL 0.9 Bili, Direct Latest Range: 0.0-0.3 mg/dL 0.2 Alk Phos Latest Range: 40-104 unit/L 100 AST Latest Range: 0-30 unit/L 26 ALT Latest Range: 0-30 unit/L 23 LDH Latest Range: 110-220 unit/L 430 (H) Total Prot Elec Latest Range: 6.4-8.3 gm/dL 6.9 Albumin Elect Latest Range: 3.60-6.00 gm/dL 4.57 Alpha1-Globulin Latest Range: 0.10-0.30 gm/dL 0.20 Alpha2-Globulin Latest Range: 0.40-0.90 gm/dL 0.78 Beta Globulin Latest Range: 0.50-1.00 gm/dL 0.63 Gamma Globulin Latest Range: 0.50-1.30 gm/dL 0.72 M1 Band Latest Range: None Detected gm/dL None Detected Scan No range found See Note IgG Latest Range: 700-1600 mg/dL 697 (L) IgA Latest Range: 70-400 mg/dL 26 (L) IgM Latest Range: 40-230 mg/dL 432 (H) HIV-1/2 Ab and Ag Latest Range: Negative Negative HepB Surface Ab No range found Negative HepB Surface Ag Latest Range: Negative Negative Hep B Core Ab Latest Range: Negative Negative Hepatitis C Ab Latest Range: Negative Negative RADIOLOGY STUDIES REVIEWED: EXAMINATION: PET/CT STANDARD (Skull base to Mid-thigh) CLINICAL HISTORY: staging lymphoma TECHNIQUE: Following IV injection of 59-fhsuto-1-deoxyglucose (FDG) a standard uptake of approximately 60 minutes, a noncontrast CT scan followed by a PET scan were acquired from the base of the skull to mid thighs. The noncontrast CT was used for anatomic localization and photon attenuation correction of the PET scan. Blood glucose level: 89 (mg/dL) FDG dose: 10.1 mCi COMPARISON: Outside chest CT February 26, 2014. FINDINGS: HEAD/NECK: Normal activity in the visualized lower head. Multiple hypermetabolic and enlarged left supraclavicular lymph nodes, which measure up to 26 x 17 mm. CHEST: Several small hypermetabolic lymph nodes are seen deep to and inferior to the left clavicle. Numerous intensely hypermetabolic and markedly enlarged lymph nodes are present in the left axilla with diameters up to 40 x 32 mm. A large conglomeration of lymph nodes extends right paratracheal from the level of the thoracic inlet along the right side of the mediastinum into the pretracheal region down to the level of the superior aspect of the right hilum. This conglomeration measures 80 x 80 x 75 mm. Central and segmental airways are widely patent. Normal findings of the lungs. No pleural effusion. ABDOMEN/PELVIS: Mildly increased uptake of 2 lymph nodes that are located prevertebral between the IVC and the abdominal aorta (image 123 and image 130). Intense hypermetabolic activity of left common iliac pathologically enlarged lymph nodes. In addition abnormal uptake is seen in small lymph nodes just anterior and inferior to the aortic bifurcation as well as in the right common iliac and left internal iliac lymph nodes. Bilateral hypermetabolic external iliac lymphadenopathy with larger lymph nodes on the right than on the left. Milder uptake in small inguinal lymph nodes is seen on the left. SKELETON/EXTREMITIES: Normal activity in all regions of the axial and visualized appendicular skeleton. IMPRESSION IMPRESSION: 1. Intensely hypermetabolic lymphadenopathy supraclavicular, infraclavicular, [...] and in the right external iliac chain. ASSESSMENT/PLAN: We reivewed there staging studies. I shared the elevated LDH and PET images w/ her. ECHO is normal.BMBx with low grade lymphoma will not change the prognosis (see referenced listed in marrow report below) but we will need f/u BMBx at completion of therapy. I reviewed the etiology and pathophysiology of lymphomas. I reviewed how lymphomas develop and how they can affect bone marrow, blood, and lymph nodes. The staging of lymphomas does not carry the same prognostic implications as the staging in other maligancies. I stressed this point several times. she Completed staging studies including bilateral BMBx, labs, and PET scan. ECHO cardiogram was checked because of anticipated anthracycline use. I reviewed general NonHodgkins Lymphoma - and subtypes B and T cell. I reviewed indolent, intermediate/aggressive and highly aggressive lymphomas. DLBCL falls int eh intermediate/aggressive category with a goal of cure. Of all patients there is about a 60% chance of cure but this varies with the IPI. The addition of rituxan to CHOP is standard of care first line treatment and rituxan has improved survivals and remission rates by about 10-15%. DLBCL can be a transformation from a follicular lymphoma and this is not the case with Myriam De Souza. The low grade lymphoma seen in marrow only has been shown in studies to not represent transformation if htat is the only site of indolent lymphoma. Because of her bulky disease I will prophylax her with extra fluids and allopurinol. Allopurinol 300mg daily X 14 days then stop. We discussed risk for tumor lysis. . I discussed standard of care treatment with RCHOP. I discussed the diagnosis of DLBCL with Myriam De Souza. We reviewed her results to date. PET positive with uptake in Above and below diaphram; no organ involment. BMBx indolent component only LDH elevated Stage IIIA Age 63 y.o. Extranodal sites: none [id number] status 0 IPI = 3 About 60-70% 5 year survival with RCHOP therapy. We then reviewed RCHOP w/ intent to cure if possible. We reviewed the potential schedule of RCHOP IV every 3 weeks. Would anticipate 6 cycles. Would plan to restage after C#3 or C#4 at [facility] [place] with PET scan. [employer]IVE prophylaxis with HD IV methotrexate is nont anticipated. PEt and BMBx at completion of therapy. No role for XRT. Side effects discussed include but are not limited to: Prednisone: increased energy, difficulty sleeping, increased appetite, weight gain, thrush, mood changes or irritability, hyperglycemia.. GI upset. Much less common at this dosing are: risk of infection, cataracts, osteoporosis, rojo facies. Rituxan : fever night after infusion and infusional reactions that include but are not limited to rash, hives, anaphylaxis, shortness of breath, chest pain, rigors, bone pain, fever. Cyclophosphamide: fatique, N/V, drop in blood counts, risk for infection, rare need for transfusions, hair thinning/loss, rare hemorrhagic cystitis, and rare pulmonary fibrosis. Reviewed neutropenic precautions and to call 24 hours per day for fever over 100.4. Check temp 2 X per day. Vincristine: constipation, neuropathy Adriamycin: fatique, N/V, drop in blood counts, risk for infection, need for transfusions, hair loss, rare long-term heart damage with frequency of about 2- 5%. [place] urine. Neulasta: bone pain We also discussed hte ECOG protocol randomizing RCHOP with RCHOP + revlamid. Would need to get sometherapy here rather than [facility]. Discussed rationale for the protocol. Revlamid is given first 10 days of each cycle. We discussed lenalidomiderevlamid in detail We discussed revlamid and how it is applied for and distributed from the pharmaceutical company. Side effects she might experience were explained to her and include fatigue, edema, dizziness, headache, pruritis, rash, GI upset including diarrhea, constipation, nausea, vomiting, myelosuppression, terell tropenic fever, infection, liver toxicity, neuropathy. Increased risk of DVT on lenalidomide and wediscussed the need for full ASA 325mg daily prophylaxis. Recently there has a report of increase inarterial thrombosis (CVA/DC) as well. This risk is very small. Risk of defects and therefore the pt was told that she must keep this medication away from any children or women of childbearing age. Blood counts will be followed closely and dose adjustments will be made as necessary. All information was written down for the pt and friend. All questions were answered. Numbers to call and reasons to call were reviewed. Pt was given the consent form and information on RCHOP to review. Plan: ?? Single lumen mediport (poor IV access) ?? Needs scripts for allopurinol, zofran, ativan and prednisone ?? Will see her back to review all of the above as she is clearly and understandably overwhelmed. ?? Will discuss optoins of therapy RCHOP vs protocol upon her return. ?? I will tentatively schedule her for chemo next week to reserve infusion room time ?? At her request I will forward my note and all of my future notes to her friend, Dr. Sacha Hancock a security lead at [facility]. Dr Sacha Hancock, Wire Roller at [facility] - fax [phone]. BMBx report reviewed and listed below: Col Date: 03/29/2014 /Sex: 1950,(63 years),Female Rec Date: 03/29/2014 LOC: [facility] ---Clinical Information--- Specimen: Aspirate and biopsy, right Clinical Diagnosis: Diffuse large B-cell lymphoma Indication for Study: Staging marrow ---Peripheral Blood Findings--- The white blood cell count is 7.49K/uL. The predominating cells are neutrophils with normal morphology. There is no absolute lymphocytosis, but occasional abnormal small lymphocytes with irregular nuclei, condensed nuclear chromatin, inconspicuous nucleoli and a moderate amount of pale blue, vacuolated cytoplasm are present. No anemia is evident (Hgb 11.9 g/dL; MCV 86.6 fL), and RBC morphology is generally unremarkable. Platelets are normal in number (157K/uL) and exhibit normal morphologic features. No blasts or abnormal circulating cell populations are appreciated. ---Aspirate--- The bone marrow aspirate is cellular and particulate. One aspirate smear (#1) is dominated by an infiltrate of small lymphocytes while the second (#2) shows maturing trilineage hematopoiesis with an estimated myeloid:erythroid (M:E) ratio of approximately 2:1. Myeloid maturation is sequential to the neutrophil without dysplastic features or an increase in blasts, and erythroid precursors show normoblastic maturation. Megakaryocytes are normal in number and morphology. Plasma cells and lymphocytes have normal morphology and are not increased in number. An iron stain is performed and demonstrates that iron stores are scant but present and distributed appropriately in macrophages. No increase in ringed sideroblasts is appreciated. ---Differential--- Not performed. ---Enzyme Cytochemistry--- N/A ---Biopsy and/or Clot Section--- The decalcified bone marrow biopsy specimen consists of cortical and trabecular bone and hematopoietic tissue with a substantial amount of hemorrhagic aspiration artifact present. The bone marrow is roughly normocellular for age with an overall cellularity estimated at approximately 40%. Myeloid maturation is once again seen as sequential to the neutrophil without an increase in blasts, and active islands of maturing erythroid precursors are present throughout. Megakaryocytes are present in normal number, have a generally normal morphology and are distributed in a normal pattern throughout the bone marrow space without significant cluster formation or abnormal localization. There are two lymphoid aggregates present in interstitial locations and comprised predominantly of small, mature lymphocytes and histiocytes without an appreciable large cell component. In total, the lymphocyte population appears to account for about 10-15% of the total marrow cellularity. There are no granulomata or abnormal infiltrating nonhematopoietic cell populations. The bony trabeculae appear normal for age. ---Diagnosis--- 1. Morphologically atypical lymphocyte population, peripheral blood. 2. Normocellular marrow with maturing trilineage hematopoiesis and involvement (10-15%) by low-grade B-cell lymphoproliferative neoplasm. 3. No morphologic evidence for blood or marrow involvement by large B- cell lymphoma (see Comment). ---Comment--- Flow cytometry immunophenotype analysis was performed concurrently on the bone marrow aspirate (see separate report) and identified a monoclonal, kappa-restricted B-cell population with the immunophenotype, CD19+ CD20+ CD5- CD10- CD23- FMC7-. In summary, these morphologic and immunophenotypic findings are consistent with involvement of the marrow by a B-cell lymphoproliferative neoplasm that likely reflects a low-grade component of the previously diagnosed diffuse large B-cell lymphoma (see [id number]). There is no morphologic evidence for involvement of the marrow by the large cell component. Available data suggest that discordant involvement of the bone marrow by B-cell lymphoma as seen in this case is not independently associated with adverse prognosis apart from IPI score (Sanders et al., Blood 2007;110:3037-6019 AND Sehn et al., J Clin Oncol 2011;29:1893-3284). The specimen has been submitted for karyotyping and the results will be reported separately when available. total time: 100 min all in discussion from 3-4:40pm time in counselling: Copy DUNIA CALDERON MD documented in this encounter Plan of Treatment Upcoming Encounters Date Type Department Care Team (Late st Contact Info) Description 12/07/2023 12:00 PM EDT Office Visit Dermatology at [facility] [address] [place] [id number] Juan F Chappell MD [facility] DR [address] [address] documented as of this encounter Results * IR Mediport Placement/Exchange (04/05/2014 11:00 AM EST) Anatomical Region Laterality Modality X-Ray Angiograph y 04/05/2014 11:0 0 AM EST Impressions 04/08/2014 12:00 PM EST IMPRESSION: Placement single lumen RIGHT IJ port, catheter tip in SVC. ??Port ready for use. ? Procedure performed by: Jewels Knowlse APRN Attending: ?Mary Anne was not present for procedure. Narrative 04/08/2014 12:00 PM EST Procedure: ??Placement of RIGHT IJ single lumen mediport (POWER) ACC#: ??[id number] Indication: 63 yo female with new diagnosis of Diffuse Large Cell Non-Hodgkins Lymphoma is starting chemotherapy. We have been consulted to place a single lumen chest port. TECHNIQUE: ??After discussing risks (including infection, hemorrhage, occlusion), and benefits, patient consented to the procedure and conscious sedation. A moment of truth was performed and the patient and procedure correctly identified. ?? Due to the painful nature of the procedure, split doses of fentanyl and Versed were administered by the IR nurse during continuous monitoring of pulse, blood pressure and oxygen saturation. ?? After maximal sterile barrier technique preparation of the right neck and upper chest, ultrasound was used to localize the right internal jugular vein. ??1% lidocaine SQ was administered for anesthesia, and a 21 ga needle was advanced under ultrasound guidance into the IJ. ??The remainder of the procedure was performed under fluoroscopic guidance. ?An 0.018 inch wire was advanced into SVC. ??A 4 Fr introducer sheath was placed and the wire exchanged for a 0.035 inch wire. ??Lidocaine was then infiltrated in a caudal-lateral direction, and infiltrated for pocket creation. ??An incision was made, and with blunt dissection a pocket created. ??Port was attached to the catheter, placed into the pocket. ??A tunneler was then used to bring the catheter through the tunnel to the venotomy site. ?? Venotomy was dilated to accommodate the peel-away sheath, and during breath-hold, the catheter advanced. ??Sheath was removed. ??Port flushed and aspirated well. ??The pocket was closed using a two layer technique with absorbable suture material (2-0 vicryl deep interrupted). Skin closed with Dermabond. ??Patient tolerated the procedure well. ?? Complication: ??There were no immediate complications. ?? Medication: Fentanyl ??150 mcg IV .Versed 2.5 mg IV. Ancef 1 gram IV . ??Lidocaine 1% 12cc Fluoro time: 0.2 min. ?? Procedure Note Justin North MD - 04/08/2014 Procedure: Placement of RIGHT IJ single lumen mediport (POWER) ACC#: [id number] Indication: 63 yo female with new diagnosis of Diffuse Large CellNon-Hodgkins Lymphoma is starting chemotherapy. We have been consulted to place asingle lumen chest port. TECHNIQUE: After discussing risks (including infection, hemorrhage,occlusion), and benefits, patient consented to the procedure and conscious sedation.A moment of truth was performed and the patient and procedure correctly identified. Due to the painful nature of the procedure, split doses of fentanyl and Versed were administered by the IR nurse during continuous monitoring of pulse, blood pressure and oxygen saturation. After maximal sterile barrier technique preparation of the right neck andupper chest, ultrasound was used to localize the right internal jugular vein.1% lidocaine SQ was administered for anesthesia, and a 21 ga needle wasadvanced under ultrasound guidance into the IJ. The remainder of the procedurewas performed under fluoroscopic guidance. An 0.018 inch wire was advancedinto SVC. A 4 Fr introducer sheath was placed and the wire exchanged for a0.035 inch wire. Lidocaine was then infiltrated in a caudal-lateral direction,and infiltrated for pocket creation. An incision was made, and with blunt dissection a pocket created. Port was attached to the catheter, placedinto the pocket. A tunneler was then used to bring the catheter through the tunnelto the venotomy site. Venotomy was dilated to accommodate the peel-away sheath, and during breath-hold, the catheter advanced. Sheath was removed. Port flushedand aspirated well. The pocket was closed using a two layer technique with absorbable suture material (2-0 vicryl deep interrupted). Skin closedwith Dermabond. Patient tolerated the procedure well. Complication: There were no immediate complications. Medication: Fentanyl 150 mcg IV .Versed 2.5 mg IV. Ancef 1 gram IV . Lidocaine 1%12cc Fluoro time: 0.2 min. IMPRESSION IMPRESSION: Placement single lumen RIGHT IJ port, catheter tip in SVC.Port ready for use. Procedure performed by: Jewels Knowles APRN Attending: Dr. North was not present for procedure. Kimberly Mondragon MD IMG IR ORDERABLE S documented in this encounter Visit Diagnoses Diagnosis Diffuse large B cell lymphoma Other malignant lymphomas, unspecified site, extranodal and solid organ sites Lymphoma Other malignant lymphomas, unspecified site, extranodal and solid organ sites Diffuse large B cell lymphoma Other malignant lymphomas, unspecified site, extranodal and solid organ sites documented in this encounter Care Teams Sap Fico Architect Relationship Specialty Start Date End Date Dunia Calderon MD PCP - General 03/21/14 04/07/14 documented as of this encounter
--- OUTSIDE RECORDS SUMMARY | 2023-10-28 00:49 | XMS_ITS | Encounter Summary ---
Author Organization [facility] Address [facility] [place] [address] Care Team Providers Care Pizza Chef Name Role Phone Maine Dunn Primary Care Provider [phone] Encounter Details Date Type Department Care Team (Late st Contact Info) Description 06/10/2014 10:30 AM EDT - 06/10/2014 11:59 PM EDT Hospital Encounter [place] [phone] CLINIC, Kimberly Hanson MD [facility] [place] [address] DLBCL (diffuse large B cell lymphoma) Discharge [...] FIND 450 mg. Med Name: Tumeric 07/24/2014 [place]-3 Fatty Acids-Vitamin E (FISH OIL) 1,000 mg [...] 12:00 PM EDT Office Visit Dermatology at [facility] [address] [place] [address] Juan F Chappell MD [facility] DR [address] [address] documented as of this encounter Procedures Procedure Name Priority Date/Time Associated Diagnosis Comments NM PET CT SKULL BASE TO MID-THIGH ([facility]) STAT 06/10/2014 12:48 PM EDT DLBCL (diffuse large B cell lymphoma) documented in this encounter Results * PET/CT STANDARD (Skull base to Mid-thigh) (06/10/2014 12:48 PM EDT) Anatomical Region Laterality Modality Other 06/10/2014 12:4 8 PM EDT Impressions 06/10/2014 4:02 PM EDT IMPRESSION: 1. ??Overall marked interval improvement, however, residual active lymphoma in the residual right paratracheal ammon mass. 2. ??No other sites of active lymphoma. Thank you for referring this patient to [facility]. This report was reviewed by Rudolph Cardenas at 06/10/2014 3:56 PM Film and interpretation reviewed by the attending Narrative 06/10/2014 4:02 PM EDT EXAMINATION: PET/CT STANDARD (Skull base to Mid-thigh) CLINICAL HISTORY: diffuse large B cell lymphoma TECHNIQUE: Procedure: Following IV injection of 26-vfoefs-6-deoxyglucose (FDG) a standard uptake of approximately 60 [...] proximal appendicular skeleton consistent with reactive marrow. ? Procedure Note Rudolph Cardenas MD - 06/10/2014 EXAMINATION: PET/CT STANDARD (Skull base to Mid-thigh) CLINICAL HISTORY: diffuse large B cell lymphoma TECHNIQUE: Procedure: Following IV injection of 43-wnxkvk-3-deoxyglucose(FDG) a standard uptake of approximately 60 minutes, a noncontrast CT scanfollowed by a PET scan were acquired from the base of the skull to mid thighs. Thenoncontrast CT was used for anatomic localization and photon attenuation correction ofthe PET scan Blood glucose level: 92 (mg/dL) FDG dose: 10.2 mCi COMPARISON: PET/CT scan 03/28/2014 FINDINGS: HEAD/NECK: Normal activity in all soft tissue regions of the neck and visualizedlower head. Interval resolution of metabolic activity with decreased anatomicsize of the previously seen left supraclavicular lymph nodes. CHEST: Interval decrease in anatomic size of the right paratracheal nodalconglomerate which now measures 48 x 32 mm. The right paratracheal ammon mass isdecreased in intensity remains hypermetabolic with max SUV measuring 6.0 compared to13.2 on the prior study. No significant activity above mediastinal background seen in the leftaxilla where there is marked interval decrease in anatomic size of the leftaxillary lymph nodes with the largest node measuring 2.6 x 1.1 cm (CT axial image53). No pleural effusion. The central airways are patent. A right-sidedMediport catheter terminates at the atriocaval junction. ABDOMEN/PELVIS: Normal activity in all soft tissue regions. Interval decrease in anatomicsize and complete metabolic resolution of the previously seen retroperitonealand left inguinal lymph nodes. SKELETON/EXTREMITIES: Mild diffuse marrow activity seen throughout the visualized axial andproximal appendicular skeleton consistent with reactive marrow. IMPRESSION IMPRESSION: 1. Overall marked interval improvement, however, residual active lymphomain the residual right paratracheal ammon mass. 2. No other sites of active lymphoma. Thank you for referring this patient to [facility]. This report was reviewed by Rudolph Cardenas at 06/10/2014 3:56 PM Film and interpretation reviewed by the [...] 17,500 mg 17,500 mg (50 mL), Oral, ONCE, 1 dose, On Tue06/10/14 at 1330, Routine Given 06/10/2014 10:45 AM EDT 17,500 mg documented in this encounter Care Teams Pizza Chef Relationship Specialty Start Date End Date Maine Dunn PA PCP - General 04/08/14 02/13/15 documented as of this encounter
--- OUTSIDE RECORDS SUMMARY | 2023-10-28 00:49 | XMS_ITS | Encounter Summary ---
Author Organization [facility] Address [facility] [place] [address] Care Team Providers Care Manager Internet Name Role Phone Maine Dunn Primary Care Provider [phone] Encounter Details Date Type Department Care Team (Late st Contact Info) Description 04/11/2014 8:55 AM EST - 04/11/2014 11:59 PM [facility] Hospital Encounter Hematology [place] [phone] CLINIC, Kimberly Hanson MD [facility] [place] [address] Discharge Disposition: Home Social History Tobacco Use Types Packs/Day Years Used Date Smoking Tobacco: Never Sex and Gender Information Value Date Recorded Sex Assigned at Not on file Gender Identity Not on file Sexual Orientation Not on file documented as of this encounter Medications at Time of Discharge Medication Sig Dispensed Refills Start Date End Date allopurinol (ZYLOPRIM) 300 mg TabletIndications:Lymph vivien Take 1 tablet by mouth daily for 14 days. 14 tablet 2 04/11/2014 04/25/2014 ondansetron (ZOFRAN, HYDROCHLORIDE,) 8 mg TabletIndications:Lymph vivien Take 1 tablet by mouth every 8 hours as needed for Nausea. 10 tablet 6 04/11/2014 07/15/2014 predniSONE (DELTASONE) 20 mg TabletIndications:Lymph vivien Take 8.5 tablets by mouth daily for 4 days. Take 8.5 tab every AM for 4 days after chemo 34 tablet 5 04/13/2014 05/20/2014 UNABLE TO FIND 450 mg. Med Name: Tumeric 07/24/2014 [place]-3 Fatty Acids-Vitamin E (FISH OIL) 1,000 mg CapsuleIndications:Lymp fawn Take by mouth. 01/29/2015 Calcium 500 mg TabletIndications:Lymph vivien Take by mouth. 01/29/2015 Cholecalciferol, Vitamin D3, (VITAMIN D-3) 2,000 unit CapsuleIndications:Lymp fawn Take 1,000 Units by mouth. 01/29/2015 LORazepam (ATIVAN) 0.5 mg TabletIndications:Lymph vivien Take 0.5 mg by mouth every 6 hours as needed for Anxiety. 05/08/2014 escitalopram (LEXAPRO) 10 mg tablet 03/08/2005 01/03/2015 documented as of this encounter Plan of Treatment Upcoming Encounters Date Type Department Care Team (Late st Contact Info) Description 12/07/2023 12:00 PM EDT Office Visit Dermatology at [facility] [address] [place] [address] Juan F Chappell MD [facility] [address] [place] [address] documented as of this encounter Visit Diagnoses Not on filedocumented in this encounter Care Teams Manager Internet Relationship Specialty Start Date End Date Maine Dunn PA PCP - General 04/08/14 02/13/15 documented as of this encounter
--- OUTSIDE RECORDS SUMMARY | 2023-10-28 00:49 | XMS_ITS | Encounter Summary ---
Author Organization [place] [address] Care Team Providers Care Nutrition Counselor Name Role Phone Maine Dunn Primary Care Provider [phone] Encounter Details Date Type Department Care Team (Late st Contact Info) Description 05/22/2014 Notes Only Hematology Oncology at [address] [phone] Yuliet Chavez RN Social History Tobacco Use Types Packs/Day Years Used Date Smoking Tobacco: Never Sex and Gender Information Value Date Recorded Sex Assigned at Not on file Gender Identity Not on file Sexual Orientation Not on file documented as of this encounter Progress Notes * Yuliet Chavez RN - 05/22/2014 2:10 PM EDT RESEARCH NURSE OFFICE NOTE CYCLE #3 DAY #1 E1412 Randomized Phase II Open Label Study of Lenalidomide R-CHOP (R2CHOP) vs RCHOP (Rituximab, Cyclophosphamide, Doxorubicin, Vincristine and Prednisone) in Patients with Newly Diagnosed Diffuse Large B Cell Lymphoma Arm B: RCHOP repeat every 3 weeks for total of 6 cycles SUBJECTIVE Patient here for C3D1 R-CHOP. Assessed by Blank Lee APRN, please see her note. Myriam reports feeling mildly fatigued at times. She continues to take Ativan 1.0 before bed and is sleeping well. She has lost her hair and thinks her eye brows are thinning. She has a good appetite and is eating well. She reports taking her antiemetics only a few times since last infusion. She has increased her fluid intake to approx. 50 oz or more each day. She is rinsing her mouth with baking soda/water most nights and says her mouth feels good. She has a small sore on the inside of her lower lip, It's not much. She is using generic colace and Miralax as needed. She reports that her bowels are moving regularly and her hemorrhoids are about gone. She has only a few spots of non-itchy rash on her torso and continues to take Acyclovir 400 mg BID. Offered new Rx for Prednisone to patient. She declined saying that she had that Rx filled already using a refill that had previously been written. She did not have the bottle with her. I explained tothe patient that the dose is determined using her height and weight, so she needs to receive a new Rx at each cycle of chemo. She expressed understanding. There was no change in 170 mg dose from C2 to C3. I will call patient tomorrow to confirm drug, dose and timing. ECOG = 1 STUDY ASSESSMENTS COMPLETED Labs AE Con meds PE with VS AE/SIDE EFFECT [...] increased fluid intake 5 rash 1 04/20/14 Acyclovir po BID 6 Night sweats 1 04/20/14 04/23/14 none 7 Tingling in legs and feet 1 04/24/14 04/25/14 none 8 Sinus pressure 1 04/23/14 ongoing Tylenol Sinus PRN 9 Burn on left thumb 1 05/19/14 Generic antibiotic ointment CHEMOTHERAPY ?? I verified that the dose ordered is consistent with treatment plan per protocol. ?? Dose calculation doubled-checked. Pt BSA = 1.72 x dose/m2 = Prednisone 100 mg/m2, total dose ordered: 170 mg po once on day 1 ?? Rituxan 375 mg/m2, total dose ordered: 650 mg IV once on day 1 ?? Doxorubicin 50 mg/m2, total dose ordered: 85 mg IV once on day 1 ?? Vincristine 1.4 mg/m2 (max 2 mg), total dose ordered: 2 mg IV once on day 1 ?? Cyclophosphamide 750mg/m2 total dose ordered: 1300 mg IV once on day 1 EDUCATION Prednisone calendar given to patient. Instructed to call or email with questions or concerns. Continue using baking soda/water rinses daily. Use Senekot and Miralax tonight and tomorrow to avoid constipation due to antiemetics game artist prior to chemo. PLAN Patient is scheduled to receive Neulasta injection on May 23, 2014, in [place], [place] She is scheduled for PET/CT scan and lab draw per protocol on June 10, 2014; and for C4D1 on 2014, in [place], [place] She agrees to bring empty bottle from Prednisone Rx to June 12 visit She agrees to continue participation in study E1412 documented in this encounter Plan of Treatment Upcoming Encounters Date Type Department Care Team (Late st Contact Info) Description 12/07/2023 12:00 PM EDT Office Visit Dermatology at [address] [place] [address] Juan F Chappell MD [facility] DR [address] [place] [address] documented as of this encounter Visit Diagnoses Not on filedocumented in this encounter Care Teams Nutrition Counselor Relationship Specialty Start Date End Date Maine Dunn PA PCP - General 04/08/14 02/13/15 documented as of this encounter
--- OUTSIDE RECORDS SUMMARY | 2023-10-28 00:49 | XMS_ITS | Encounter Summary ---
Author Organization [facility] Address [facility] [place] [address] Care Team Providers Care Hand Turner Name Role Phone Maine Dunn Primary Care Provider [phone] Reason for Referral * Consultation (Routine) - Closed Specialty Diagnoses / Procedures Referred By Perry cabrera Referred To Contact Hematology and Oncology Diagnoses Lymphoma Kimberly Mondragon MD [facility] [address] [place] [address] [facility] Hem Onc Infusion [address] [place] [id number] Referral ID Status Reason Start Date Expiration Date V isits Requested Visits Authorized [id number] Closed Continuity of Care 04/11/2014 04/11/2015 3 3 * Consultation (Routine) - Closed Specialty Diagnoses / Procedures Referred By Contnam t Referred To Contact Nutrition Diagnoses Lymphoma Kimberly Mondragon MD [facility] [place] [address] Referral ID Status Reason Start Date Expiration Date V isits Requested Visits Authorized [id number] Closed Continuity of Care 04/11/2014 10/08/2014 3 3 Reason for Visit * Reason Comments Follow-up Encounter Details Date Type Department Care Team (Late st Contact Info) Description 04/11/2014 10:00 AM EST Follow-Up Hematology and Oncology at [facility] [place] [address] Kimberly Mondragon MD [facility] [address] [place] [address] Lymphoma Discharge Disposition: Home Social History Tobacco Use Types Packs/Day Years Used Date Smoking Tobacco: Never Sex and Gender Information Value Date Recorded Sex Assigned at Not on file Gender Identity Not on file Sexual Orientation Not on file documented as of this encounter Last Filed Vital Signs Vital Sign Reading Time Taken Comments Blood Pressure 121/67 04/11/2014 9:18 AM EST Pulse 86 04/11/2014 9:18 AM EST Temperature 36.5 ??C (97.7 ??F) 04/11/2014 9:18 AM ES T Respiratory Rate 16 04/11/2014 9:18 AM EST Oxygen Saturation 100% 04/11/2014 9:18 AM EST Inhaled Oxygen Concentration - - Weight 67.1 kg (147 lb 14.9 oz) 04/11/2014 9:18 AM EST Height 160 cm (5' 2.99) 04/11/2014 9:18 AM EST Body Mass Index 26.21 04/11/2014 9:18 AM EST documented in this encounter Progress Notes * Erika Workman RN - 04/25/2014 1:09 PM EDT RESEARCH NURSE OFFICE VISIT CHEMOTHERAPY/IMMUNOTHERAPY TEACHING 04/11/2014 PROTOCOL: E1412: Randomized Phase II Open Label Study of Lenalidomide R-CHOP (R2CHOP) vs RCHOP (Rituximab, Cyclophosphamide, Doxorubicin, Vincristine and Prednisone) in Patients with Newly Diagnosed Diffuse Large B Cell Lymphoma Treatment Regimen: R-CHOP Although Dr. Gupta has provided extensive chemotherapy education over the past few appointments with patient, I met with Myriam Vivas to reinforce main points of chemotherapy teaching and provide additional written materials per MD request. No barriers to learning were identified today (eyesight corrected with glasses, but otherwise is able to read Tanzanian). Of note, patient has requested transfer of treatment to [place], [place] under the care of Dr. Mondragon when arrangements can be made to accommodate there on study. However, she will receive her first two cycles at [facility], as Dr. Mondragon will not be in [facility] for projected dates of C1D1 or C2D1. We briefly reviewed the environment of the infusion suite as well as the administration process foroutpatient chemotherapy/immunotherapy here at [facility]. Schedule of planned treatment, consisting of six 21-day cycles of R-CHOP reviewed. First treatment is scheduled for tomorrow, during which time shemay anticipate a full day of approximately 8 hours, with 7 hours of time in the infusion suite. Discussed that first-time rituximab is run very slowly, with rates titrated up gradually, due to potential for infusion reaction. Ms. Vivas verbalizes understanding that, if she has an infusion reaction, her infusion chair time could be greater tomorrow. Further discussed that, if she does not react,she should anticipate infusion chair time of approximately 6 hours with subsequent cycles. She was advised that she will need to take oral prednisone on days 2-5 as an outpatient per script provided.Research RN to provide study- specific drug calendars for recording purposes. Ms. Vivas was made aware that occasionally treatments are delayed based on labs and/or side effects, which is decided during MD/ACCOUNT ASSISTANT visits. Ms. Vivas states that she was previously given handouts on each of the drugs in her RCHOP regimen and has read through the side effect profiles of each per the study informed consent document. Common side effects of Rituxan discussed, including but not limited to: infusion reactions, chills,fatigue, and body aches. Explained that premedications are given to help mitigate infusion reactions. Instructed on proper use of antiemetics and management of potential side effects. Reviewed reasons to notify clinic, including a fever greater than 100.4, shaking chills, and others as listed on When to Call My Care Team magnet. Discussed importance of maintaining oral hydration of at least 64 ounces of non-caffeineated beverages per day for at least 48 hours after treatment. Reinforced awareness of side effects of prednisone, vincristine, doxorubicin, and cyclophosphamide. Antiemetic scripts provided per Dr. Mondragon. We reviewed how and when to use antiemetics for chemotherapy-induced nausea. Written/Audiovisual Materials provided to patient: ?? It's All About You chemotherapy patient teaching booklet ?? When to Call My Care Team magnet with care team and emergency contact numbers ?? NCI booklet Eating Hints: Before, During, and After Cancer Treatment ?? NCI booklet Taking Time: Support for People with Cancer ?? NCI booklet Chemotherapy and You: Support for People with Cancer Ms. Vivas was encouraged to further review written materials in detail. Myriam Vivas was givenan opportunity to ask questions and verbalized an understanding of the chemotherapy side effects and treatment self-care strategies. She denies any further questions or concerns at this time. Plan: Myriam Vivas to proceed with treatment per E1412 protocol, with C1D1 RCHOP scheduled for 04/12/14, and C1D2 Neulasta injection planned for 04/15/14 in [facility]. Patient verbalizes understanding of, and agreement with, plan. Advised to contact this office for any questions/concerns, as well as for any new or worsening symptoms. Erika Workman, RN, BSN Hematology/Oncology Research Nurse [facility] * Kimberly Mondragon MD - 04/11/2014 10:08 AM [place] [address] FOLLOW-UP PATIENT EVALUATION PROBLEM LIST: Patient Active Problem List Diagnosis ??? Lymphoma [address] biopsy [...] female being seen for follow-up evaluation of DLBLC. She has decided to participate in the E1412 protocol randomizing. She is overwhelmed and upset that she is missing her trip. She had questions from our discussion last week. She would like to see a travel consultant. I will request this a [facility] b/c we will eventually transfer her care there and this is more convenient for her. ROS Energy level:stable Pain: No Appetite:good Fevers/chills/sweats:No Bruising/bleeding/melena:No Recent infections:No HEENT: negative Nausea/vomiting/diarrhea/constipation:No SOB/HAUSER/chest pain:No Change in adenopathy or other masses:No Unexpected weight loss or gain:No Skin rashes or petechiae:No Musculoskeletal complaints:No Extremities: Negative upper and lower bilaterally Neurologic symptoms:No Mood: Anxiety Sleep: Difficulty sleeping MEDS: Outpatient Prescriptions Marked as Taking for the 04/11/14 encounter (Follow-Up) with Kimberly Mondragon MD Medication Sig Dispense Refill ??? UNABLE TO FIND Med Name: Tumeric ??? [place]ai-3 Fatty Acids-Vitamin E (FISH OIL) 1,000 mg Capsule Take by mouth. ??? Calcium 500 mg Tablet Take by mouth. ??? Cholecalciferol, Vitamin D3, (VITAMIN D-3) 2,000 unit Capsule Take 1,000 Units by mouth. ??? LORazepam (ATIVAN) 0.5 mg Tablet Take 0.5 mg by mouth every 6 hours as needed for Anxiety. ??? escitalopram (LEXAPRO) 10 mg tablet Allergies: Allergies Allergen Reactions ??? Tegaderm [Transparent Dressings] Other (See Comments) Unsure if actual allergy, please try [id number] Skin tears/rawness INTERIM SOCIAL HISTORY Changes in job, home situation, tobacco or alcohol use: see HPI PHYSICAL EXAM BP 121/67 Pulse 86 Temp(Src) 36.5 ??C (97.7 ??F) (Temporal) Resp 16 Ht 160 cm (5' 2.99) Wt 67.1 kg (147 lb 14.9 oz) BMI 26.21 kg/m2 SpO2 100% Body surface area is 1.73 meters squared. GENERAL: Myriam Vivas appears well and is in no acute distress. ENT: Oral pharynx clear. EYES: SWATHI NECK: Supple with 3cm L supraclavicular and subclav mass AXILLARY: L axillary adenopathy with multiple 2-[address] OTHER LYMPH: no adenopathy CARDIAC: Regular rate and rhythm without S3,S4 or murmurs. LUNGS: Clear to auscultation./percussion ABDOMEN: Soft and non-tender without hepatosplenomegaly or masses. EXTREMITIES: No cyanosis, clubbing, edema or calf tenderness. SKIN: No bruises or petechiae. NEUROLOGICAL: Alert and oriented to person, place and time. MUSCULOSKELETAL: No spinal or chest wall tenderness. LINE: nontender, no erythema - resolving ecchymoses. LABORATORY STUDIES Recent Results (from the past 72 hour(s)) COMPREHENSIVE METABOLIC PANEL (NON-FASTING) Result Value Ref Range Glucose Lvl 104 60 - 199 mg/dL BUN 24 (*) 8 - 18 mg/dL Creatinine 0.74 0.70 - 1.20 mg/dL Sodium 144 135 - 145 mmol/L Potassium 4.3 3.5 - 5.0 mmol/L Chloride 102 98 - 107 mmol/L CO2 31 22 - 31 mmol/L Anion Gap 11 5 - 15 mmol/L Calcium 10.3 8.5 - 10.5 mg/dL Total Protein 7.1 6.4 - 8.3 gm/dL Albumin 4.6 3.2 - 5.2 gm/dL AST 24 0 - 30 unit/L ALT 22 0 - 30 unit/L Alk Phos 107 (*) 40 - 104 unit/L Total Bilirubin 0.7 0.2 - 1.3 mg/dL Bili, Direct 0.1 0.0 - 0.3 mg/dL Estimated GFR >60 >=60 LACTATE DEHYDROGENASE Result Value Ref Range LDH 401 (*) 110 - 220 unit/L HEMOGRAM Result Value Ref Range WBC 7.2 4.0 - 10.0 x10(3)/mcL RBC 4.02 3.93 - 5.22 x10(6)/mcL Hemoglobin 11.8 11.2 - 15.7 gm/dL Hematocrit 35.0 34.0 - 45.0 % MCV 87.1 79.0 - 94.0 fL MCH 29.4 26.6 - 32.2 pg MCHC 33.7 32.0 - 36.5 gm/dL Platelets 158 145 - 370 x10(3)/mcL RDWSD 41.4 35.0 - 46.0 fL RDWCV 13.0 10.9 - 14.4 % MPV 9.1 9.0 - 12.0 fL DIFFERENTIAL, AUTOMATED Result Value Ref Range Neutrophils % 45.8 Neutr Abs (ANC) 3.30 1.50 - 6.30 x10(3)/mcL Lymphocytes % 41.1 Lymphocytes Abs 3.0 1.0 - 3.6 x10(3)/mcL Monocytes % 5.1 Monocyte Abs 0.4 0.2 - 1.0 x10(3)/mcL Eosinophils % 6.9 Eosinophils Abs 0.5 0.0 - 0.5 x10(3)/mcL Basophils % 1.0 Basophils Abs 0.1 0.0 - 0.2 x10(3)/mcL Immature Gran % 0.10 [place] Gran Abs 0.01 0.00 - 0.05 x10(3)/mcL RADIOLOGY STUDIES REVIEWED: none ASSESSMENT/PLAN: Myriam comes in today for discussion of protocol and f/u of side effects of RCHOP. Pt was seen in conjunction with Erika workman and raffi vann research nurses. She had many questions as our last discussion was understandably overwhelming. We answered all of our questions to the best of our ability. She was satisfied. We reviewed her financial considerations and side effects. She requests travel consultant appt. We will arrange this in [facility] since that is where she will ultimately be getting all of her therapy. Consent form was reviewed with her and all questions were answered. We reviewed the new changes to the consent form/protocol that were just released. Consent signed. We will contact study center for randomizatoin. Scripts for allopurinol 300mg X 14 days with C#1 only and zofran 8mg q 8 hours prn and prednisone given to the patient. Given that I am not at [facility] for start of C#2, We will plan to transfer her care to [facility] with start of C#3. I discussed all of the above with the patient and all of her questions were answered. Support and counseling given as appropriate. total time:40 10am - 10 40am time in counsellin Copy SOPHY FUNES documented in this encounter Plan of Treatment Upcoming Encounters Date Type Department Care Team (Late Contact Info) Description 12/07/2023 12:00 PM EDT Office Visit Dermatology at [facility] [address] [place] [address] Juan F Chappell MD [facility] DR [place] [address] Scheduled Referrals Name Type Priority Associated Diagnoses Orde r Schedule Referral to Nutrition Services Outpatient Referral Routine Lymphoma Ordered: 04/11/2014 Referral to Nutrition Services Outpatient Referral Routine Lymphoma Ordered: 04/11/2014 documented as of this encounter Procedures Procedure Name Priority Date/Time Associated Diagnosis Comments HEMOGRAM STAT 04/11/2014 9:15 AM EST Lymphoma DIFFERENTIAL, AUTOMATED STAT 04/11/2014 9:15 AM EST Lymphoma CBC (WITH DIFF) STAT 04/11/2014 9:15 AM EST Lymphoma LACTATE DEHYDROGENASE STAT 04/11/2014 9:15 AM EST Lymphoma COMPREHENSIVE METABOLIC PANEL STAT 04/11/2014 9:15 AM EST Lymphoma documented in this encounter Results * Comprehensive metabolic panel (non-fasting) (04/23/2014 7:49 AM EDT) [facility] Glucose 113 60 - 199 mg/dL CERNER MILLENNIUM Comment:Diabetes: >=200 mg/d L plus symptoms Blood Urea Nitrogen 17 8 - 18 mg/dL CERNER MILLENNIUM Creatinine 0.72 0.70 - 1.20 mg/dL CERNER MILLENNIUM Comment: Please note that the pediatric reference intervals supplied above were not validated at [facility]. Results from pediatric patients should be interpreted in conjunction to the patient's age, height and muscle mass. Sodium 143 135 - 145 mmol/L CERNER MILLENNIUM Potassium 3.6 3.5 - 5.0 mmol/L CERNER MILLENNIUM Comment: [...] - 5.2 gm/dL CERNER MILLENNIUM Aspartate Aminotransferase 14 0 - 30 unit/L CERNER MILLENNIUM Alanine Aminotransferase 21 0 - 30 unit/L CERNER MILLENNIUM Alkaline Phosphatase 99 40 - 104 unit/L CERNER MILLENNIUM Bilirubin, [...] the following links into your internet browser. [email or web address] Blood specimen (specimen) 04/23/2014 7:49 AM EDT 04/23/2014 7:53 AM EDT Narrative Resulting Agency Comment Spec In Lab Kimberly Mondragon MD CHEMISTRY ORDERA EDWAR CERNER MILLENNIUM * Differential, Automated (04/11/2014 9:15 AM EST) Neutrophil % 45.8 % CERNER MILLENNIUM Neutrophil Absolute 3.30 1.50 - 6.30 x10(3)/mcL CERNER MILLENNIUM Lymph % 41.1 % CERNER MILLENNIUM Lymphocytes Abs 3.0 1.0 - 3.6 x10(3)/mcL CERNER MILLENNIUM Monocyte % 5.1 % CERNER MILLENNIUM Monocyte Abs 0.4 0.2 - 1.0 x10(3)/mcL CERNER MILLENNIUM Eos % 6.9 % CERNER MILLENNIUM Eosinophils Abs 0.5 0.0 - 0.5 x10(3)/mcL CERNER MILLENNIUM Basophil % 1.0 % CERNER MILLENNIUM Baso Absolute 0.1 0.0 - 0.2 x10(3)/mcL CERNER MILLENNIUM Immature Gran % 0.10 % CERN ER MILLENNIUM Comment: Immature granulocytes(IG's)percentage and absolute count will include metamyelocytes, myelocytes, and promyelocytes. Blood smears from CBCs yielding IG's will be scanned manually for concordance. If this scan disagrees with the automated IG or if promyelocytes are noted, a manual differential will be performed. Immature Gran Absolute 0.01 0.00 - 0.05 x10(3)/mcL CERNER MILLENNIUM Blood specimen (specimen) 04/11/2014 9:15 AM EST 04/11/2014 9:34 AM EST Narrative Resulting Agency Comment Spec In Lab Kimberly Mondragon MD HEMATOLOGY ORDER AYO CERNER MILLENNIUM * Hemogram (04/11/2014 9:15 AM EST) White Blood Cell 7.2 4.0 - 10.0 x10(3)/mcL CERNER MILLENNIUM Red Blood Cell 4.02 3.93 - 5.22 x10(6)/mcL CERNER MILLENNIUM Hemoglobin 11.8 11.2 - 15.7 gm/dL CERNER MILLENNIUM Hematocrit 35.0 34.0 - 45.0 % CERNER MILLENNIUM Mean Cell Volume 87.1 79.0 - 94.0 fL CERNER MILLENNIUM Mean Cell Hemoglobin 29.4 26.6 - 32.2 pg CERNER MILLENNIUM Mean Cell Hemoglobin Concentration 33.7 32.0 - 36.5 gm/dL CERNER MILLENNIUM Platelet 158 145 - 370 x10(3)/mcL CERNER MILLENNIUM RDW Standard Deviation 41.4 35.0 - 46.0 fL CERNER MILLENNIUM RDW coefficient of variation 13.0 10.9 - 14.4 % CERNER MILLENNIUM Mean Platelet Volume 9.1 9.0 - 12.0 fL CERNER MILLENNIUM Blood specimen (specimen) 04/11/2014 9:15 AM EST 04/11/2014 9:34 AM EST Narrative Resulting Agency Comment Spec In Lab Kimberly Mondragon MD HEMATOLOGY ORDER AYO CERNER MILLENNIUM * (ABNORMAL) Lactate Dehydrogenase (04/11/2014 9:15 AM EST) Lactate Dehydrogenase 401(H) 110 - 220 unit/L CERNER MILLENNIUM Blood specimen (specimen) 04/11/2014 9:15 AM EST 04/11/2014 9:34 AM EST Narrative Resulting Agency Comment Spec In Lab Kimberly Mondragon MD CHEMISTRY ORDERA BLES Performing Organization Address [facility] Co de Phone Number CERNER MILLENNIUM * (ABNORMAL) Comprehensive metabolic panel (non-fasting) (04/11/2014 9:15 AM EST) Glucose 104 60 - 199 mg/dL CERNER MILLENNIUM Comment:Diabetes: >=200 mg/d L plus symptoms Blood Urea Nitrogen 24(H) 8 - 18 mg/dL CERNER MILLENNIUM Creatinine 0.74 0.70 - 1.20 mg/dL CERNER MILLENNIUM Comment: Please note that the pediatric reference intervals supplied above were not validated at [facility]. Results from pediatric patients should be interpreted [...] 10.5 mg/dL CERNER MILLENNIUM Protein, Total 7.1 6.4 - 8.3 gm/dL CERNER MILLENNIUM Albumin 4.6 3.2 - 5.2 gm/dL CERNER MILLENNIUM Aspartate Aminotransferase 24 0 - 30 unit/L CERNER MILLENNIUM Alanine Aminotransferase 22 0 - 30 unit/L CERNER MILLENNIUM Alkaline Phosphatase 107(H) 40 - 104 unit/L CERNER MILLENNIUM Bilirubin, [...] the following links into your internet browser. [email or web address] Blood specimen (specimen) 04/11/2014 9:15 AM EST 04/11/2014 9:34 AM EST Narrative Resulting Agency Comment Spec In Lab Kimberly Mondragon MD CHEMISTRY ORDERA EDWAR GIBRAN COREAS documented in this encounter Visit Diagnoses Diagnosis Lymphoma Other malignant lymphomas, unspecified site, extranodal and solid organ sites documented in this encounter Care Teams Hand Turner Relationship Specialty Start Date End Date Maine Dunn PA PCP - General 04/08/14 02/13/15 documented as of this encounter
--- OUTSIDE RECORDS SUMMARY | 2023-10-28 00:49 | XMS_ITS | Encounter Summary ---
Author Organization [facility] [place] [address] Care Team Providers Care Straight Line Press Setter Name Role Phone Maine Dunn Primary Care Provider [phone] Reason for Visit * Reason Comments Lymphoma Encounter Details Date Type Department Care Team (Latest Contact Info) Description 05/01/2014 7:53 AM EDT - 05/01/2014 11:59 PM EDT Hospital Encounter Hematology [place] [address] Lymphoma (Primary Dx) Social History Tobacco Use Types Packs/Day Years Used Date Smoking Tobacco: Never Sex and Gender Information Value Date Recorded Sex Assigned at Not on file Gender Identity Not on file Sexual Orientation Not on file documented as of this encounter Last Filed Vital Signs Vital Sign Reading Time Taken Comments Blood Pressure 140/53 05/01/2014 2:37 PM EDT Pulse 95 05/01/2014 2:37 PM EDT Temperature 36.6 ??C (97.9 ??F) 05/01/2014 2:37 PM ED T Respiratory Rate 18 05/01/2014 2:37 PM EDT Oxygen Saturation 97% 05/01/2014 2:37 PM EDT Inhaled Oxygen Concentration - - Weight - - Height - - Body Mass Index - - documented in this encounter Medications at Time of Discharge Medication Sig Dispensed Refills Start Date End Date LORazepam (ATIVAN) 0.5 mg TabletIndications:Lymph vivien Take 1-2 tablets by mouth every 6 hours as needed for Anxiety for up to 30 days. 30 tablet 3 05/01/2014 05/22/2014 acyclovir (ZOVIRAX) 400 mg Tablet Take 1 [...] UNABLE TO FIND 450 mg. Med Name: [facility] 07/24/2014 [place]-3 Fatty Acids-Vitamin E (FISH OIL) 1,000 mg [...] as of this encounter Progress Notes * Ana Anthony RN - 05/01/2014 11:10 AM EDT Patient Name: Myriam Vivas Patient Age: 63 y.o. Birthdate: 1950 Admit date: 05/01/2014 Attending Physician: No att. providers found TIME TREATMENT STARTED: 0940 TIME TREATMENT ENDED: 1438 Myriam Vivas, 63 y.o. female with diagnosis of Lymphoma is here for chemotherapy infusion of R-CHOP. PROTOCOL: #1412 CYCLE: 2 WEEK: n/a DAY: 1 S: Pt. offers no complaints at this time. O: Chemotherapy orders independently verified for correct drug name, route and dosage per patient'sheight, weight and BSA by Ana Anthony RN and onsite pharmacist REACTIONS (DESCRIPTION, TIME, INTERVENTION AND EFFECTIVENESS) none A: Pt. Tolerated treatment well. Myriam Vivas confirms that all questions and issues have been addressed. P: Return to clinic as advised. * Larisa Benz RN - 05/01/2014 9:54 AM EDT Port accessed by Merlene Macias RN documented in this encounter Plan of Treatment Upcoming Encounters Date Type Department Care Team (Late st Contact Info) Description 12/07/2023 12:00 PM EDT Office Visit Dermatology at [facility] [address] [place] [address] Juan F Chappell MD [facility] [address] [place] [address] documented as of this encounter Visit Diagnoses Diagnosis Lymphoma- Primary Other malignant lymphomas, unspecified site, extranodal and solid organ sites documented in this encounter Administered Medications Inactive Administered Medications - up to 3 most recent administrations Medication Order MAR Action Action Date Dose Rate Site acetaminophen (TYLENOL) tablet 650 mg 650 mg, Oral, ONCE, 1 dose, On Tue05/01/14 at 0930, 30 to 60 minutes prior to riTUXimab. Maximum dose of acetaminophen is 4000 mg from all sources in 24 hours., Routine Given 05/01/2014 10:01 AM EDT 650 mg cyclophosphamide (CYTOXAN) 1,300 mg in dextrose 5% 315 mL chemo infusion 1,300 mg, Intravenous, ONCE, 1 dose, On Tue05/01/14 at 0930, Administer over 30 Minutes New Bag 05/01/2014 1:43 PM EDT 1,300 mg 630 mL/hr diphenhydrAMINE (BENADRYL) capsule 50 mg 50 mg, Oral, ONCE, 1 dose, On Tue05/01/14 at 0930, 30 to 60 minutes prior to riTUXimab, Routine Given 05/01/2014 10:01 AM EDT 50 mg DOXOrubicin (ADRIAMYCIN) chemo injection 85 mg 85 mg, Intravenous, ONCE, 1 dose, On Tue05/01/14 at 0930, Administer over 6 Minutes, Total Dose 85 mg = 42.5 mL divided into 2 syringes. Each syringe contains 42.5 mg = 21.25 mL. Infuse each syringe over a minimum of 3 minutes. Vesicant/irritant. Avoid extravasation. Given 05/01/2014 1:32 PM EDT 85 mg 425 mL/hr heparin, porcine 100 unit/mL flush 500 Units 500 Units, Intercatheter, DAILY PRN, 1 dose, Starting on Tue05/01/14 at 1113, Until Tue05/01/14 at 1437, Line Care, Terminal Flush for de-accessing of Implantable Port, Routine Given 05/01/2014 2:37 PM EDT 500 Units ondansetron (ZOFRAN) tablet 16 mg 16 mg, Oral, ONCE, 1 dose, On Tue05/01/14 at 0930, Pre-chemotherapy on day 1, Routine Given 05/01/2014 10:00 AM EDT 16 mg predniSONE (DELTASONE) tablet 20 mg 20 mg, Oral, ONCE, 1 dose, On Tue05/01/14 at 0930, Total dose = 170 mg. Administer 30 to 60 minutes prior to riTUXimab on day 1., Routine Given 05/01/2014 10:01 AM EDT 170 mg riTUXimab (RITUXAN) 650 mg in sodium chloride 0.9% 325 mL infusion 650 mg, Intravenous, ONCE, 1 dose, On Tue05/01/14 at 0930, Round medication dose to the nearest 100 mg: Keep dose as calculated (DO NOT round), Patient is a candidate for rapid infusion riTUXimab? No New Bag 05/01/2014 10:57 AM EDT 650 mg sodium chloride 0.9 % flush 20 mL 20 mL, Intravenous, DAILY PRN, Starting on Tue05/01/14 at 1113, Until Tue11/06/14 at 0019, for the accessing and continued maintenance of an Implantable Port device, Routine Given 05/01/2014 2:37 PM EDT 20 mLs sodium chloride 0.9% infusion 125 mL/hr, Intravenous, CONTINUOUS, Starting on Tue05/01/14 at 0930, Until Cece 05/02/14 at 0929, While in clinic [facility] [place] 05/01/2014 10:02 AM EDT 125 mL/hr 125 mL/hr vinCRIStine (ONCOVIN) chemo injection 2 mg 2 mg, Intravenous, ONCE, 1 dose, On Tue05/01/14 at 0930, Administer over 2 Minutes, FOR IV USE ONLY. FATAL IF GIVEN BY OTHER ROUTES. Vesicant/irritant Avoid extravasation Given 05/01/2014 1:40 PM EDT 2 mg 60 mL/hr documented in this encounter Care Teams Straight Line Press Setter Relationship Specialty Start Date End Date Maine Dunn PA PCP - General 04/08/14 02/13/15 documented as of this encounter
--- OUTSIDE RECORDS SUMMARY | 2023-10-28 00:49 | XMS_ITS | Encounter Summary ---
Author Organization [facility] Address [facility] [place] [address] Care Team Providers Care Hair Spring Cutter Name Role Phone Dunia Calderon MD Primary Care Provider Encounter Details Date Type Department Care Team (Late st Contact Info) Description 04/05/2014 7:48 AM EST - 04/05/2014 11:59 PM EST Hospital En[place] [phone] CLINIC, Kimberly Hanson MD [facility] HEMATOLOGY [place] [address] Diffuse large B cell lymphoma Discharge Disposition: Home Social History Tobacco Use Types Packs/Day Years Used Date Smoking Tobacco: Never Sex and Gender Information Value Date Recorded Sex Assigned at Not on file Gender Identity Not on file Sexual Orientation Not on file documented as of this encounter Last Filed Vital Signs Vital Sign Reading Time Taken Comments Blood Pressure 102/49 04/05/2014 11:00 AM EST Pulse 90 04/05/2014 11:00 AM EST Temperature 35.8 ??C (96.4 ??F) 04/05/2014 10:[address] Respiratory Rate 16 04/05/2014 11:00 AM EST Oxygen Saturation 98% 04/05/2014 11:00 AM EST Inhaled Oxygen Concentration - - Weight - - Height - - Body Mass Index - - documented in this encounter Discharge Instructions * Discharge Instructions* Zohra Granda RN - 04/05/2014 10:46 AM EST Images from the original note were not included. [facility] Department of Vascular and Interventional Radiology Discharge Instructions for your Chest Port You have received a ???Power Port?? , which provides access for infusions and blood draws. What makes this a ???Power Port?? is the unique ability to ???power inject?? contrast (intravenous dye) through the port when getting a CT scan, which produces superior images (pictures). Patients who don???t have these special ports need to have an IV started if they need dye injected for their CT scan. Your port is printed with the letters ???CT?? which can be detected by x- ray to identify it as a ???Power Port?? . You will be provided with an ID card stating the java software architect and type of port you have. Please carry this with you in a safe place. . Bandage: There is a sterile dressing over the port site consisting of small gauze with a clear dressing (Tegaderm or [id number] ). This dressing should be left in place for 48 hours. If the clear dressing becomes loose you should place tape over the edges to secure it in place. Note: If you have steri-strips beneath your dressing, simply allow them to fall off. Do not peel them off. Bathing: Do not take a shower until 48 hours after your port is placed; after this time you may shower with the dressing in place, then remove it and pat your skin dry. After 48 hours, we recommend that you cover the area with THE AQUA GUARD PROVIDED for 1 week while showering, facing away from theshower stream. You may use a bandaid to cover the site after the 48 hours are up if there is any drainage. No tub baths, whirlpools or swimming for one week following port placement. What to expect when your port is accessed: 1. You may feel tenderness the first few times it is accessed but generally this subsides over time. Ask your healthcare provider to use a local anesthetic on the site if discomfort is a problem for you. You may ask for a prescription for a topical cream (EMLA) from your clinician; you may apply athome prior to your appointments, to help numb the skin over your port. 2. The clinician should be wearing sterile gloves and a mask during the access procedure. Anyone inthe room with you should also have a mask on. 3. The skin over and 2 inches around the port should be cleaned with a disinfectant 4. Tell the clinician if you would like the skin numbed (lidocaine) before the access needle is placed. 5. Unless you are unable to take heparin (blood thinner), the port should be injected with a heparin solution before deaccess (at end of each treatment or blood draw). When to call your healthcare provider: ??? If you notice bleeding from the puncture site in your neck, or from the port incision on your chest, you should apply firm pressure over the site for 10-15 minutes, keeping the site covered. Callif you are still bleeding after 10-15 minutes. ??? If you develop pain, redness, drainage or swelling at or around the port site, or the puncture site in the neck ??? If you develop fever (elevation of more than 2 degrees or greater than 101F) and/or shaking chills When to call the Interventional Radiology Department: Please call with any questions or concerns. If it is during regular office hours, please call [phone]. If it is after regular office hours, or on weekends or holidays, please call [phone] and ask to speak to the Engagement Specialist elementary instructional coach for Interventional Radiology. XXX You have received medication during your procedure to help lesson anxiety and keep you comfortable. These medications affect judgement and reaction time. We [...] occurs, please contact your M. D. Revised 02/26/11 documented in this encounter Medications at Time of Discharge Medication Sig Dispensed Refills Start Date End Date UNABLE TO FIND 450 mg. Med Name: Tumeric 07/24/2014 [place]-3 Fatty Acids-Vitamin E (FISH OIL) 1,000 mg CapsuleIndications:Lymph vivien Take by mouth. 01/29/2015 Calcium 500 mg TabletIndications:Lympho ma Take by mouth. 01/29/2015 Cholecalciferol, Vitamin D3, (VITAMIN D-3) 2,000 unit CapsuleIndications:Lymph vivien Take 1,000 Units by mouth. 01/29/2015 LORazepam (ATIVAN) 0.5 mg TabletIndications:Lympho ma Take 0.5 mg by mouth every 6 hours as needed for Anxiety. 05/08/2014 escitalopram (LEXAPRO) 10 mg tablet 03/08/2005 01/03/2015 documented as of this encounter Progress Notes * Teresita Law RN - 04/08/2014 10:53 AM EST Interventional and Vascular Radiology Post-Procedure Call Name: Myriam De Souza Age: 63 y.o. Sex; Female Date of : 1950 (home) No relevant phone numbers on file. PCP DUNIA CALDERON MD [phone] Date/Time of call: April 08, 2014/10:53 AM Procedure: Mediport placement Procedural Provider: Knowles Contact with patient or if not, with whom? Message left on answering machine? (yes/no) Provider notified via phone or email if unable to contact pt: (yes/no) Are you having pain related to your procedure now? Sore by neck where the incision is, not enough to need pain medicine Are you having any swelling or bleeding from the site? none Are there any improvement in your symptoms? n/a Are you having any other problems related to your procedure? The skin underneath is a mess, the skin is raw from dressing. Comments: Did you understand the discharge instructions given and do you have any questions? Yes, took her a while to interpret how to wear aquagard. Comments: Do you have any comments about your Nurse or Provider or the care you received? Everybody's wonderful there. No problems with anything Nurse Comments: Aquagard not staying on well * Rosario Long RN - 04/03/2014 4:02 PM EST ANGIO/VIR NURSING DATABASE Name: MYRIAM DE SOUZA Date of : 1950 AGE 63 y.o. [address]: [address] [place] [id number] (home) [phone] (work) Mobile: No relevant phone numbers on file. Referring Provider: Kimberly Burnett PROCEDURE: mediport placement-New diagnosis of Diffuse Large Cell Non-Hodgkin's Lymphoma. Needs to begin chemotherapy DANIELLE Assessment: Myriam De Souza is a 63 y.o. female with diffuse large cell Non- Hodgkin's Lymphoma needing to start chemotherapy DANIELLE. Will plan on RIJ single lumen chest port. Labs to be performed day of procedure: None Medication to STOP: None Sedation: Moderate sedation Prophylactic antibiotic: Cefazolin 1 gm IV Additional medications for procedure: None Planned access site: RIJ Position: Supine Consent: Pending No Known Allergies Pertinent PMH: Patient Active Problem List Diagnosis Code ??? Lymphoma 202.80 ??? Depression with anxiety 300.4 Pertinent PSH: Past Surgical History Procedure Laterality Date ??? Bone marrow aspiration w/bx through same incision/site Right 03/29/2014 ([facility]) BONE MARROW ASP PERFORMED W/BX THRU BX INCISION performed by Kimberly Mondragon MD at [facility] ??? Bone marrow bx, needle/trocar Right 03/29/2014 ([facility]) BONE MARROW,BIOPSY performed by Kimberly Mondragon MD at [facility] DATE PROCEDURE MEDS GIVEN 04/05/14 power port Ancef 1gm IV, Versed 2.5mg IV, Fentanyl 150mcg IV Laboratory Results: No results found for this basename: inr No components found with this basename: PT/PTT Lab Results Component Value Date CREATININE 0.64* 03/28/2014 Lab Results Component Value Date K 3.9 03/28/2014 Lab Results Component Value Date PLATELET 157 03/28/2014 Medications: Prior to Admission medications Medication Sig Start Date End Date Taking? Authorizing Provider [place]-3 Fatty Acids-Vitamin E (FISH OIL) 1,000 mg Capsule Take by mouth. Provider, Historical Calcium 500 mg Tablet Take by mouth. Provider, Historical Cholecalciferol, Vitamin D3, (VITAMIN D-3) 2,000 unit Capsule Take by mouth. Provider, Historical LORazepam (ATIVAN) 0.5 mg Tablet Take 0.5 mg by mouth every 6 hours as needed for Anxiety. Provider, Historical escitalopram (LEXAPRO) 10 mg tablet 03/08/05 ++++ FOR OUTPATIENT SCAN'S: I have informed this patient that they require a restaurant delivery driver to be present and in the building to drive them home after this procedure. In the absence of a restaurant delivery driver, IR will not be able to perform this procedure and will need to reschedule. Pt verbalized understanding of these i nstructions during the pre-procedure education via phone. (initials) * Juan Ramon Sales DO - 04/03/2014 10:41 AM EST PRE-SEDATION ASSESSMENT / FOCUSED H&P Addendum: The patient's history and physical exam have been reviewed and completed. Physical Exam Heart: RRR Lungs: clear ASA Classification: ASA 2 - Patient with mild systemic disease with no functional limitations Mallampati Classification: II (soft palate, uvula, fauces visible) VASCULAR AND INTERVENTIONAL RADIOLOGY PRE-PROCEDURE NOTE PCP: DUNIA CALDERON MD Referring Physician: Kimberly Burnett Planned Procedure: Single lumen chest port Procedure Indication: Diffuse large cell NHL, chemotherapy access Presenting Diagnosis/ Complaint: Myriam De Souza is a 63 y.o. female with anxiety and new diagnosisof Diffuse Large Cell Non-Hodgkin's Lymphoma. We have been consulted for single lumen chest port placement for chcf venous access for chemotherapy. Past Medical/Surgical History: Patient Active Problem List Diagnosis Code ??? Lymphoma 202.80 ??? Depression with anxiety 300.4 No past medical history on file. Past Surgical History Procedure Laterality Date ??? Bone marrow aspiration w/bx through same incision/site Right 03/29/2014 ([facility]) BONE MARROW ASP PERFORMED W/BX THRU BX INCISION performed by Kimberly Mondragon MD at [facility] ??? Bone marrow bx, needle/trocar Right 03/29/2014 ([facility]) BONE MARROW,BIOPSY performed by Kimberly Mondragon MD at [facility] Medications: Current Outpatient Prescriptions on File Prior to Encounter Medication Sig Dispense Refill ??? [place]-3 Fatty Acids-Vitamin E (FISH OIL) 1,000 mg Capsule Take by mouth. ??? Calcium 500 mg Tablet Take by mouth. ??? Cholecalciferol, Vitamin D3, (VITAMIN D-3) 2,000 unit Capsule Take by mouth. ??? LORazepam (ATIVAN) 0.5 mg Tablet Take 0.5 mg by mouth every 6 hours as needed for Anxiety. ??? escitalopram (LEXAPRO) 10 mg tablet No current facility-administered medications on file prior to encounter. Allergies: Review of patient's allergies indicates no known allergies. Social History: History Social History ??? Marital Status: Spouse Name: N/A Number of Children: N/A ??? Years of Education: N/A Occupational History ??? Not on file. Social History Main Topics ??? Smoking status: Never Smoker ??? Smokeless tobacco: Not on file ??? Alcohol Use: Not on file ??? Drug Use: Not on file ??? Sexual Activity: Not on file Other Topics Concern ??? Not on file Social History Narrative Significant Family History: No family history on file. Pertinent ROS: as per HPI Labs: Lab Results Component Value Date WBC 7.5 03/28/2014 HCT 34.9 03/28/2014 PLATELET 157 03/28/2014 BUN 24* 03/28/2014 CREATININE 0.64* 03/28/2014 ALKPHOS 100 03/28/2014 AST 26 03/28/2014 ALBUMIN 4.8 03/28/2014 BILIDIR 0.2 03/28/2014 BILITOT 0.9 03/28/2014 ALT 23 03/28/2014 PROT 7.4 03/28/2014 Imaging: Large right paratracheal conglomerate of nodes which compresses, but does not occlude the SVC. Physical Exam: Pending (to be performed in angio the day of procedure) ASA: Pending (to be assessed in angio the day of procedure) Mallampati Class: Pending (to be assessed in angio the day of procedure) Assessment: Myriam De Souza is a 63 y.o. female with diffuse large cell Non- Hodgkin's Lymphoma needing to start chemotherapy DANIELLE. Will plan on RIJ single lumen chest port. Labs to be performed day of procedure: None Medication to STOP: None Sedation: Moderate sedation Prophylactic antibiotic: Cefazolin 1 gm IV Additional medications for procedure: None Planned access site: RIJ Position: Supine Consent: Pending 04/03/2014 -- Jorge Mcgee MD Fellow, Vascular and Interventional Radiology Pager #[phone] * Cam Ortiz W - 04/03/2014 10:39 AM EST Images from the original note were not included. PRE-PROCEDURE VIR NOTE Date of : 1950 Age: 63 y.o. PCP: DUNIA CALDERON MD Referring Physician (if different): Kimberly Monrdagon Indication: New diagnosis of Diffuse Large Cell Non-Hodgkin's Lymphoma. Needs to begin chemotherapy. Planned Procedure: Single lumen mediport placement. Chief Complaint/Diagnosis: 63 yo female with new diagnosis of Diffuse Large Cell Non-Hodgkins Lymphoma is starting chemotherapy. We have been consulted to place a single lumen chest port. Pertinent Past Medical/Surgical History: No past medical history on file. Past Surgical History Procedure Laterality Date ??? Bone marrow aspiration w/bx through same incision/site Right 03/29/2014 ([facility]) BONE MARROW ASP PERFORMED W/BX THRU BX INCISION performed by Kimberly Mondragon MD at [facility] ??? Bone marrow bx, needle/trocar Right 03/29/2014 ([facility]) BONE MARROW,BIOPSY performed by Kimberly Mondragon MD at [facility] No Known Allergies Current Outpatient Prescriptions on File Prior to Encounter Medication Sig Dispense Refill ??? [place]-3 Fatty Acids-Vitamin E (FISH OIL) 1,000 mg Capsule Take by mouth. ??? Calcium 500 mg Tablet Take by mouth. ??? Cholecalciferol, Vitamin D3, (VITAMIN D-3) 2,000 unit Capsule Take by mouth. ??? LORazepam (ATIVAN) 0.5 mg Tablet Take 0.5 mg by mouth every 6 hours as needed for Anxiety. ??? escitalopram (LEXAPRO) 10 mg tablet No current facility-administered medications on file prior to encounter. Labs: Lab Results Component Value Date WBC 7.5 03/28/2014 HCT 34.9 03/28/2014 PLATELET 157 03/28/2014 BUN 24* 03/28/2014 Lab Results Component Value Date ALKPHOS 100 03/28/2014 AST 26 03/28/2014 ALBUMIN 4.8 03/28/2014 BILIDIR 0.2 03/28/2014 BILITOT 0.9 03/28/2014 ALT 23 03/28/2014 Imagin02/26/2014 Assessment / Plan: 63 yo female with new diagnosis of Diffuse Large Cell Non- Hodgkins Lymphoma is starting chemotherapy. Will proceed with single lumen chest port placement. Medications to discontinue: None Prophylactic antibiotic: 1 gram Ancef IV Planned access site / position: TBD documented in this encounter Procedure Notes * Jewels Knowles, LEAD DEVELOPER - 04/05/2014 5:39 PM ESTProcedure(s): SARAI\GOLDY.CATHETER,TUNNELED, WITH SQ PORT OR PUMP OVER 5YR VIR PROCEDURE NOTE: Procedure: Placement of RIGHT IJ single lumen mediport (POWER) ACC#: [id number] Indication: 63 yo female with new diagnosis of Diffuse Large Cell Non-Hodgkins Lymphoma is startingchemotherapy. We have been consulted to place a single lumen chest port. TECHNIQUE: After discussing risks (including infection, hemorrhage, occlusion), and [...] to localize the right internal jugular vein. 1% lidocaine SQ was administered for anesthesia, and a 21 ga needle was advanced under ultrasound guidance into the IJ. The remainder of the procedure was performed under fluoroscopic guidance. An 0.018 inch wire was advanced into SVC. A 4 Fr introducer sheath was placed and the wire exchanged for a 0.035 inch wire. Lidocaine was then infiltrated in a caudal-lateral direction, and infiltrated for pocket creation. An incision was made, and withblunt dissection a pocket created. Port was attached to the catheter, placed into the pocket. A tunneler was then used to bring the catheter through the tunnel to the venotomy site. Venotomy was dilated to accommodate the peel-away sheath, and during breath- hold, the catheter advanced. Sheath was removed. Port flushed and aspirated well. The pocket was closed using a two layer technique with absorbable suture material (2-0 vicryl deep interrupted). Skin closed with Dermabond. Patient tolerated the procedure well. Complication: There were no immediate complications. Medication: Fentanyl 150 mcg IV .Versed 2.5 mg IV. Ancef 1 gram IV . Lidocaine 1% 12cc Fluoro time: 0.2 min. IMPRESSION: Placement single lumen RIGHT IJ port, catheter tip in SVC. Port ready for use. Procedure performed by: Jewels Knowles APRN Attending: Dr. North was not present for procedure. documented in this encounter Plan of Treatment Upcoming Encounters Date Type Department Care Team (Late st Contact Info) Description 12/07/2023 12:00 PM EDT Office Visit Dermatology at [address] [place] [address] Juan F Chappell MD [facility] DR RANDEE [place] [address] documented as of this encounter Procedures Procedure Name Priority Date/Time Associated Diagnosis Comments IR MEDIPORT PLACEMENT Routine 04/05/2014 11:00 AM EST Diffuse large B cell lymphoma documented in this encounter Results * IR Mediport Placement/Exchange (04/05/2014 11:00 AM EST) Anatomical Region Laterality Modality X-Ray Angiograph y 04/05/2014 11:0 0 AM EST Impressions 04/08/2014 12:00 PM EST IMPRESSION: Placement single lumen RIGHT IJ port, catheter tip in SVC. ??Port ready for use. ? Procedure performed by: Jewels Knowles APRN Attending: ?Mary Anne was not present for procedure. Narrative 04/08/2014 12:00 PM EST Procedure: ??Placement of RIGHT IJ single lumen mediport (POWER) ACC#: ??[id number] Indication: 63 yo female with new diagnosis [...] RIGHT IJ single lumen mediport (POWER) ACC#: [id number] Indication: 63 yo female with new diagnosis [...] MAR Action Action Date Dose Rate Site ceFAZolin (ANCEF) 1g in dextrose 5% 50mL 1,000 mg (1 g), Intravenous, ONCE, 1 dose, On Tue04/05/14 at 0930, Administer over 30 Minutes, Redose after 4 hours., Day of Surgery (Day of Procedure), Indication for (Active or Suspected): Prophylaxis Given 04/05/2014 9:20 AM EST 1,000 mg 100 mL/hr fentaNYL 50mcg/mL injection 25-50 mcg, Intravenous, EVERY 5 MIN PRN, Starting on Tue04/03/14 at 1050, Until Tue04/05/14 at 1029, Pain, Angio/IR (Intra-Procedure), Routine Given 04/05/2014 10:23 AM EST 25 mcg Given 04/05/2014 10:15 AM EST 25 mcg Given 04/05/2014 9:55 AM EST 25 mcg midazolam (PF) (VERSED) 1 mg/mL injection 0.5-1 mg 0.5-1 mg, Intravenous, EVERY 5 MIN PRN, Starting on Tue04/03/14 at 1050, Until Tue04/05/14 at 1029, Sleep, Angio/IR (Intra-Procedure), Routine Given 04/05/2014 10:20 AM EST 0.5 mg Given 04/05/2014 9:55 AM EST 0.5 mg Given 04/05/2014 9:37 AM EST 1 mg documented in this encounter Care Teams Hair Spring Cutter Relationship Specialty Start Date End Date Dunia Calderon MD PCP - General 03/21/14 04/07/14 documented as of this encounter
--- OUTSIDE RECORDS SUMMARY | 2023-10-28 00:49 | XMS_ITS | Encounter Summary ---
Author Organization [facility] Address [facility] [place] [address] Care Team Providers Care Body Rolling Machine Tender Name Role Phone Maine Dunn Primary Care Provider [phone] Encounter Details Date Type Department Care Team (Late st Contact Info) Description 05/01/2014 8:00 AM EDT Ancillary Appointment Hematology [place] [id number] Social History Tobacco Use Types Packs/Day Years [...] Dermatology at [facility] [address] [place] [address] Juan F Chappell MD [facility] DR RANDEE [place] [address] documented as of this encounter Visit Diagnoses Not on filedocumented in this encounter Care Teams Body Rolling Machine Tender Relationship Specialty Start Date End Date Maine Dunn PA PCP - General 04/08/14 02/13/15 documented as of this encounter
--- OUTSIDE RECORDS SUMMARY | 2023-10-28 00:49 | XMS_ITS | Encounter Summary ---
Author Organization [facility] Address [facility] [place] [address] Care Team Providers Care Creative Intern Name Role Phone Maine Dunn Primary Care Provider [phone] Encounter Details Date Type Department Care Team (Late st Contact Info) Description 05/01/2014 Orders Only Hematology [place] [address] Kimberly Mondragon MD [facility] DR HEMATOLOGY [place] [address] Examination of participant in clinical trial Social [...] 12:00 PM EDT Office Visit Dermatology at [facility] [address] [place] [phone] Juan F Chappell MD [facility] DR RANDEE [place] [address] documented as of this encounter Visit Diagnoses Diagnosis Examination of participant in clinical trial documented in this encounter Care Teams Creative Intern Relationship Specialty Start Date End Date Maine Dunn PA PCP - General 04/08/14 02/13/15 documented as of this encounter
--- OUTSIDE RECORDS SUMMARY | 2023-10-28 00:49 | XMS_ITS | Encounter Summary ---
Author Organization [facility] Address [facility] [place] [address] Care Team Providers Care Back Hoe Operator Name Role Phone Maine Dunn Primary Care Provider [phone] Reason for Visit * Reason Comments Injections Neulasta Encounter Details Date Type Department Care Team (Late st Contact Info) Description 04/15/2014 2:00 PM EST Office Visit Hematology Oncology at [address] [address] CLIN[address], DR MARINA HEM/ONC Sal Ward MD [address] [place] [address] Lymphoma Discharge Disposition: Home Social History Tobacco Use Types Packs/Day Years Used Date Smoking Tobacco: Never Sex and Gender Information Value Date Recorded Sex Assigned at Not on file Gender Identity Not on file Sexual Orientation Not on file documented as of this encounter Last Filed Vital Signs Vital Sign Reading Time Taken Comments Blood Pressure 118/56 04/15/2014 2:08 PM EST Pulse 86 04/15/2014 2:08 PM EST Temperature 37.1 ??C (98.8 ??F) 04/15/2014 2:08 PM ES T Respiratory Rate 18 04/15/2014 2:08 PM EST Oxygen Saturation 96% 04/15/2014 2:08 PM EST Inhaled Oxygen Concentration - - Weight - - Height - - Body Mass Index - - documented in this encounter Progress Notes * Sarah Altamirano RN - 04/15/2014 3:35 PM EST Treatment Started: 1400 Treatment Ended: 1430 Diagnosis: Lymphoma Treatment: Neulasta Injection Assessment: Patient is into clinic today for neulasta injection. Had RCHOP on Wednesday 04/12. She denies nausea/vomiting, constipation, no fevers. She confirms that she is taking Prednisone at home and will complete this tomorrow (5 days total). Plan: Reviewed side effects of neulasta. She verbalized knowledge of phone numbers to call if she has any questions/concerns. documented in this encounter Plan of Treatment Upcoming Encounters Date Type Department Care Team (Late st Contact Info) Description 12/07/2023 12:00 PM EDT Office Visit Dermatology at [facility] [address] [place] [address] Juan F Chappell MD [facility] DR RANDEE T[place] [address] documented as of this encounter Visit Diagnoses Diagnosis Lymphoma Other malignant lymphomas, unspecified site, extranodal and solid organ sites documented in this encounter Administered Medications Inactive Administered Medications - up to 3 most recent administrations Medication Order MAR Action Action Date Dose Rate Site pegfilgrastim (NEULASTA) injection 6 mg 6 mg, Subcutaneous, ONCE, 1 dose, On Tue04/15/14 at 1445, Routine Given 04/15/2014 2:27 PM EST 6 mg Abdominal Tissue documented in this encounter Care Teams Back Hoe Operator Relationship Specialty Start Date End Date Maine Dunn PA PCP - General 04/08/14 02/13/15 documented as of this encounter
--- OUTSIDE RECORDS SUMMARY | 2023-10-28 00:49 | XMS_ITS | Encounter Summary ---
Author Organization [facility] Address [facility] [place] [address] Care Team Providers Care Utilities Estimator And Drafter Name Role Phone Maine Dunn Primary Care Provider [phone] Encounter Details Date Type Department Care Team (Late st Contact Info) Description 05/20/2014 Orders Only Hematology [place] [address] Kimberly Mondragon MD [facility] DR HEMATOLOGY [place] [address] Social History Tobacco Use Types Packs/Day Years [...] Dermatology at [facility] [address] [place] [address] Juan F Chappell MD [facility] DR RANDEE [place] [address] documented as of this encounter Visit Diagnoses Not on filedocumented in this encounter Care Teams Utilities Estimator And Drafter Relationship Specialty Start Date End Date Maine Dunn PA PCP - General 04/08/14 02/13/15 documented as of this encounter
--- OUTSIDE RECORDS SUMMARY | 2023-10-28 00:49 | XMS_ITS | Encounter Summary ---
Author Organization [facility] [place] [address] Care Team Providers Care Meat Team Member Name Role Phone Mellissa Gonsales MD Primary Care Provider Encounter Details Date Type Department Care Team (Late st Contact Info) Description 04/04/2014 Telephone Hematology [place] [address] Erika Workman, RN Social History Tobacco Use Types Packs/Day Years Used Date Smoking Tobacco: Never Sex and Gender Information Value Date Recorded Sex Assigned at Not on file Gender Identity Not on file Sexual Orientation Not on file documented as of this encounter Miscellaneous Notes * Telephone Encounter - Erika Workman, RN - 04/04/2014 11:31 AM EST RESEARCH NURSE NOTE Date: 04/04/[address] Mondragon, I called and spoke with Myriam Vivas to introduce myself, my role, and present information regarding clinical trial E1412: Randomized Phase II Open Label Study of Lenalidomide R-CHOP (R2CHOP) vs RCHOP (Rituximab, Cyclophosphamide, Doxorubicin, Vincristine and Prednisone) in Patients with Newly Diagnosed Diffuse Large B Cell Lymphoma, which had been previously discussed with her. Sangeetha had been given written information regarding general participation in clinical trials, a copy of the E1412 consent form, and my contact information at her appointment with Dr. Mondragon on 04/02/14. The patient states that she has not had the opportunity to thoroughly reviewthe consent form herself, but has discussed participation with her family (specifically her [id number]) and would like to proceed with participation. I advised Ms. Vivas that she will need to read through the consent form personally in order to conduct a study informed consent discussion/visit prior to any study-specific procedures being done. She is agreeable to this and assures me that she will read through the consent form prior to our meeting next week. Briefly discussed study in regards to visits required, as well as the fact that we are currently working towards opening the study in [facility] so that she may be treated locally there under Dr. Mondragon's care after cycle 1. Ad vised that, if she proceeds with study participation, imaging and study-required labs at defined timepoints will need to occur at [facility] in [place], [place]. Assessment/Outcome: Patient verbalizes interest in study. Encouraged Ms. Vivas to contact this automatic typewriter inspector for any questions/concerns that may arise prior to her appointments next week. Plan: 1. Patient to proceed with mediport placement at [facility] tomorrow (04/05/14). 2. Appointments to be rescheduled for 04/11/14 with research RN appointment at 9am for informed consent discussion, followed by labs at 9:45am, followed by MD/BLOOD DONOR RECRUITER visit at 10:00am. 3. C1D1 treatment tentatively scheduled @ [facility] for 04/12/14. Patient verbalizes understanding of, and agreement with, plan. documented in this encounter Plan of Treatment Upcoming Encounters Date Type Department Care Team (Late st Contact Info) Description 12/07/2023 12:00 PM EDT Office Visit Dermatology at [facility] [address] [place] [address] Juan F Chappell MD [facility] DR RANDEE [place] [address] documented as of this encounter Visit Diagnoses Not on filedocumented in this encounter Care Teams Meat Team Member Relationship Specialty Start Date End Date Mellissa Gonsales MD PCP - General 03/21/14 04/07/14 documented as of this encounter
--- OUTSIDE RECORDS SUMMARY | 2023-10-28 00:49 | XMS_ITS | Encounter Summary ---
Author Organization [facility] Address [facility] [place] [address] Care Team Providers Care Food And Drink Factory Workers Name Role Phone Maine Dunn Primary Care Provider [phone] Reason for Visit * Reason Comments Chemotherapy Encounter Details Date Type Department Care Team (Late st Contact Info) Description 04/12/2014 9:25 AM EST - 04/12/2014 11:59 PM EST Hospital Encounter Hematology [place] [phone] INFUSION THERAPY, MEDS None Kimberly Mondragon MD [facility] DR H[place]ATOLOGY [place] [address] Lymphoma (Primary Dx) Discharge Disposition: Home Social History Tobacco Use Types Packs/Day Years Used Date Smoking Tobacco: Never Sex and Gender Information Value Date Recorded Sex Assigned at Not on file Gender Identity Not on file Sexual Orientation Not on file documented as of this encounter Last Filed Vital Signs Vital Sign Reading Time Taken Comments Blood Pressure 108/53 04/12/2014 3:05 PM EST Pulse 98 04/12/2014 3:05 PM EST Temperature 37.1 ??C (98.8 ??F) 04/12/2014 3:05 PM ES T Respiratory Rate 18 04/12/2014 3:05 PM EST Oxygen Saturation 95% 04/12/2014 3:05 PM EST Inhaled Oxygen Concentration - - [...] FIND 450 mg. Med Name: Tumeric 07/24/2014 Revere-3 Fatty Acids-Vitamin E (FISH OIL) 1,000 mg [...] Progress Notes * Blank Alexander RN - 04/12/2014 4:06 PM EST Patient Name: Myriam Vivas Patient Age: 63 y.o. Birthdate: 1950 Admit date: 04/12/2014 Attending Physician: Infusion Therapy, Meds TIME TREATMENT STARTED: 1030 TIME TREATMENT ENDED: 1650 Myriam Vivas, 63 y.o. female with diagnosis of lymphoma is here for chemotherapy infusion of RCHOP. PROTOCOL: E1412 CYCLE: 1 WEEK: DAY: 1 S: Pt. offers no complaints at this time.First time, pt did very well. Mediport accessed and deaccessed per protocol w/o any issues. O: Chemotherapy orders independently verified for correct drug name, route and dosage per patient'sheight, weight and BSA by Zaki Alexander RN and onsite pharmacist REACTIONS (DESCRIPTION, TIME, INTERVENTION AND EFFECTIVENESS) none A: Pt. Tolerated treatment well. Myriam Campuzano Sangeetha confirms that all questions and issues have been addressed. P: Return to clinic prn documented in this encounter Plan of Treatment Upcoming Encounters Date Type Department Care Team (Late st Contact Info) Description 12/07/2023 12:00 PM EDT Office Visit Dermatology at [facility] [address] [place] [address] Juan F Chappell MD [facility] DR RANDE[place] [address] documented as of this encounter Visit Diagnoses Diagnosis Lymphoma- Primary Other malignant lymphomas, unspecified site, extranodal and solid organ sites documented in this encounter Administered Medications Inactive Administered Medications - up to 3 most recent administrations Medication Order MAR Action Action Date Dose Rate Site acetaminophen (TYLENOL) tablet 650 mg 650 mg, Oral, ONCE, 1 dose, On Tue04/12/14 at 1045, 30 to 60 minutes prior to riTUXimab. Maximum dose of acetaminophen is 4000 mg from all sources in 24 hours., Routine Given 04/12/2014 11:14 AM EST 650 mg acetaminophen (TYLENOL) tablet 650 mg 650 mg, Oral, EVERY 4 HOURS PRN, Starting on Tue04/12/14 at 1025, Until 04/13/14 at 0226, Other, all infusion reaction, Maximum dose of acetaminophen is 4000 mg from all sources in 24 hours., Routine Given 04/12/2014 11:17 AM EST 650 mg cyclophosphamide (CYTOXAN) 1,300 mg in dextrose 5% 315 mL chemo infusion 1,300 mg, Intravenous, ONCE, 1 dose, On Tue04/12/14 at 1045, Administer over 30 Minutes New Bag 04/12/2014 3:35 PM EST 1,300 mg 630 mL/hr diphenhydrAMINE (BENADRYL) capsule 50 mg 50 mg, Oral, ONCE, 1 dose, On Tue04/12/14 at 1045, 30 to 60 minutes prior to riTUXimab, Routine Given 04/12/2014 11:17 AM EST 50 mg DOXOrubicin (ADRIAMYCIN) chemo injection 85 mg 85 mg, Intravenous, ONCE, 1 dose, On Tue04/12/14 at 1045, Administer over 6 Minutes, Total Dose 85 mg = 42.5 mL divided into 2 syringes. Each syringe contains 42.5 mg = 21.25 mL. Infuse each syringe over a minimum of 3 minutes. Vesicant/irritant. Avoid extravasation. Given 04/12/2014 4:25 PM EST 85 mg 425 mL/hr ondansetron (ZOFRAN) tablet 16 mg 16 mg, Oral, ONCE, 1 dose, On Tue04/12/14 at 1045, Pre-chemotherapy on day 1, Routine Given 04/12/2014 11:16 AM EST 16 mg predniSONE (DELTASONE) tablet 150 mg 150 mg, Oral, ONCE, 1 dose, On Tue04/12/14 at 1045, Total dose = 170 mg. Administer 30 to 60 minutes prior to riTUXimab on day 1., Routine Given 04/12/2014 11:16 AM EST 150 mg predniSONE (DELTASONE) tablet 20 mg 20 mg, Oral, ONCE, 1 dose, On Tue04/12/14 at 1045, Total dose = 170 mg. Administer 30 to 60 minutes prior to riTUXimab on day 1., Routine Given 04/12/2014 11:16 AM EST 20 mg riTUXimab (RITUXAN) 650 mg in sodium chloride 0.9% 325 mL infusion 650 mg, Intravenous, ONCE, 1 dose, On Tue04/12/14 at 1045, Round medication dose to the nearest 100 mg: Keep dose as calculated (DO NOT round), Patient is a candidate for rapid infusion riTUXimab? No New Bag 04/12/2014 12:04 PM EST 650 mg sodium chloride 0.9% infusion 125 mL/hr, Intravenous, CONTINUOUS, Starting on Tue04/12/14 at 1045, Until 04/13/14 at 0226, While in clinic New Bag 04/12/2014 11:24 AM EST 125 mL/hr 125 mL/hr vinCRIStine (ONCOVIN) chemo injection 2 mg 2 mg, Intravenous, ONCE, 1 dose, On Tue04/12/14 at 1045, Administer over 2 Minutes, FOR IV USE ONLY. FATAL IF GIVEN BY OTHER ROUTES. Vesicant/irritant Avoid extravasation Given 04/12/2014 4:35 PM EST 2 mg 60 mL/hr documented in this encounter Care Teams Food And Drink Factory Workers Relationship Specialty Start Date End Date Maine Dunn PA PCP - General 04/08/14 02/13/15 documented as of this encounter
--- OUTSIDE RECORDS SUMMARY | 2023-10-28 00:49 | XMS_ITS | Encounter Summary ---
Author Organization [facility] Address [facility] [place] [address] Care Team Providers Care Refrigerator Glazier Name Role Phone Maine Dunn Primary Care Provider [phone] Reason for Visit * Reason Comments Injections Neulasta Encounter Details Date Type Department Care Team (Late st Contact Info) Description 05/23/2014 3:30 PM EDT Office Visit Hematology Oncology at [address] [address] Sal Ward MD [address] [place] [id number] Lymphoma Discharge Disposition: Home Social History Tobacco Use Types Packs/Day Years Used Date Smoking Tobacco: Never Sex and Gender Information Value Date Recorded Sex Assigned at Not on file Gender Identity Not on file Sexual Orientation Not on file documented as of this encounter Last Filed Vital Signs Vital Sign Reading Time Taken Comments Blood Pressure 117/60 05/23/2014 3:19 PM EDT Pulse 96 05/23/2014 3:19 PM EDT Temperature 36.7 ??C (98 ??F) 05/23/2014 3:19 PM EDT Respiratory Rate - - Oxygen Saturation 97% 05/23/2014 3:19 PM EDT Inhaled Oxygen Concentration - - Weight - - Height - - Body Mass Index - - documented in this encounter Progress Notes * Светлана Biswas RN - 05/23/2014 3:34 PM EDT Treatment Started: 1520 Treatment Ended: 153 Diagnosis: Lymphoma Treatment: Neulasta injection Patient reports sleeping well last night and feeling well today. Denies nausea, vomiting, neuropathy or constipation. Last BM this morning. Confirms that she took her prednisone this morning. Plan: PET scan scheduled for 06/10/14 & appointment with Dr. Mondragon on 06/12/14. Pt reminded to call for any questions or concerns. documented in this encounter Plan of Treatment Upcoming Encounters Date Type Department Care Team (Late st Contact Info) Description 12/07/2023 12:00 PM EDT Office Visit Dermatology at [address] [place] [address] [address] [facility] [address] [place] [address] documented as of this encounter Visit Diagnoses Diagnosis Lymphoma Other malignant lymphomas, unspecified site, extranodal and solid organ sites documented in this encounter Administered Medications Inactive Administered Medications - up to 3 most recent administrations Medication Order MAR Action Action Date Dose Rate Site pegfilgrastim (NEULASTA) injection 6 mg 6 mg, Subcutaneous, ONCE, 1 dose, On Cece 05/23/14 at 1530, Routine Given 05/23/2014 3:31 PM EDT 6 mg Abdominal Tissue documented in this encounter Care Teams Refrigerator Glazier Relationship Specialty Start Date End Date Maine Dunn PA PCP - General 04/08/14 02/13/15 documented as of this encounter
--- OUTSIDE RECORDS SUMMARY | 2023-10-28 00:49 | XMS_ITS | Encounter Summary ---
Author Organization [facility] [place] [address] Care Team Providers Care Burlap Bag Sewer Name Role Phone Maine Dunn Primary Care Provider [phone] Encounter Details Date Type Department Care Team (Late st Contact Info) Description 04/11/2014 Notes Only Hematology [place] [address] Yuliet Chavez RN Social History Tobacco Use Types Packs/Day Years Used Date Smoking Tobacco: Never Sex and Gender Information Value Date Recorded Sex Assigned at Not on file Gender Identity Not on file Sexual Orientation Not on file documented as of this encounter Progress Notes * Yuliet Chavez RN - 04/11/2014 12:18 PM EST RESEARCH NURSE INFORMED CONSENT NOTE E1412 Randomized Phase II Open Label Study of Lenalidomide R-CHOP (R2CHOP) vs RCHOP (Rituximab, Cyclophosphamide, Doxorubicin, Vincristine and Prednisone) in Patients with Newly Diagnosed Diffuse Large B Cell Lymphoma Date: 04/11/2014 Objective of visit: Meet with the patient (and friend) in clinic to provide information regarding protocol E1412, answer questions or concerns about study plan and evaluate interest in study participation. Information Provided: Protocol was reviewed with patient including, a description of the proposed care, treatment, services, medications, interventions, procedures, and follow-up including duration of subject???s participation in study. Potential discomforts and risks were reviewed. The patient wasinformed regarding the uncertainties, both in terms of benefit as well as risks that are part of participation in clinical trials. Discussed confidentiality of patient???s health information as specified in the protocol. Pt was advised that he/she may discontinue treatment at any time and that refus ing to participate or discontinuing treatment will not compromise the patient???s access to treatment options or care. The patient was given written information regarding the protocol and was offered adequate time to review the information. The patient was given adequate time to ask questions and review concerns, all of which were answered to the patient???s satisfaction. Myriam asked about duration of treatment and was told she will receive 6 cycles of 21 days each or about 5 months with follow up visits every 3 months for year 1-2 and every 6 months for year 3. She also asked what would happen if she relapsed. She was told that if s he had a recurrence she would be treated and would discontinue trial participation. She also expressed her desire to have her treatment in [place], [place], as much as possible. Assessment/Outcome: Patient verbalized understanding of protocol and consents for treatment. She also agreed to the biological sample submissions. Patient signed and dated consent, copy given to patient. Original, signed informed consent document scanned into patient???s electronic medical record and original hard copy given to MARY JO Gallagher. Written informed consent was obtained prior to any study procedures being done. Plan: 1. Pt will be enrolled on study E1412 and will come to [facility] for C1 D1 on 04/12/14. She is scheduled to come to [facility] on 05/01/24, for C2 D1 and then we well plan to have further chemo treatments done in [place], [place]. documented in this encounter Plan of Treatment Upcoming Encounters Date Type Department Care Team (Late st Contact Info) Description 12/07/2023 12:00 PM EDT Office Visit Dermatology at [facility] [address] [place] [address] Juan F Chappell MD [facility] [address] [place] [address] documented as of this encounter Visit Diagnoses Not on filedocumented in this encounter Care Teams Burlap Bag Sewer Relationship Specialty Start Date End Date Maine Dunn PA PCP - General 04/08/14 02/13/15 documented as of this encounter
--- OUTSIDE RECORDS SUMMARY | 2023-10-28 00:49 | XMS_ITS | Encounter Summary ---
[place] [address] Care Team Providers Care Actuarial Trainee Name Role Phone Maine Dunn Primary Care Provider [phone] Reason for Visit * Reason Onset Date Comments Numbness 04/25/2014 Other 04/25/2014 night sweats Encounter Details Date Type Department Care Team (Late st Contact Info) Description 04/25/2014 Telephone Hematology [place] [address] Yuliet Chavez, RN Numbness; Other (night sweats) Social History Tobacco Use Types Packs/Day Years Used Date Smoking Tobacco: Never Sex and Gender Information Value Date Recorded Sex Assigned at Not on file Gender Identity Not on file Sexual Orientation Not on file documented as of this encounter Miscellaneous Notes * Telephone Encounter - Yuliet Chavez, RN - 04/25/2014 10:05 AM EDT RESEARCH NURSE OFFICE NOTE CYCLE #1 DAY #14 E1412 Randomized Phase II Open Label Study of Lenalidomide R-CHOP (R2CHOP) vs RCHOP (Rituximab, Cyclophosphamide, Doxorubicin, Vincristine and Prednisone) in Patients with Newly Diagnosed Diffuse Large B Cell Lymphoma Cycle 1, Day 13 Arm B: RCHOP repeat every 3 weeks for total of 6 cycles SUBJECTIVE 10:00 AM - Called Myriam by phone to respond to emails: I realized I never got the answer as to whyI am getting the night sweats now.Thoughts? and Just an FYI.Getting the tingling in my legs........and feet. Message left to call back left on answering machine and email sent to patient. 1:15 PM - Returned patient call after receiving email response: The sweats have stopped and I onlyrealize it when I wake up.The tingling I had one day........My hair is falling out(sigh) and you are allowed a day off! The bowel situation is totally under control. Discussed patient's symptoms and schedule for cycle 2 on 05/02/14. AE/SIDE EFFECT MONITORING # AE Grade Start date Stop Date Serious PRICILA Study Related Action Outcome 1 mucocitis 1 04/15/14 no Baking soda and water rinses 2 insomnia 2 04/15/14 no Increase Ativan to 1.0 mg at bedtime 3 Bleeding hemorrhoids 1 04/19/14 no OTC stool softener, increase fluid intake, increase fiber intake 4 constipation 1 04/21/14 no Tucks, Colace, fiber pills increased fluid intake 5 rash 1 04/20/14 no Acyclovir po QID 6 Night sweats 1 no none 7 Tingling in legs and feet 1 04/24/14 04/25/14 no none PLAN Patient is scheduled for C2D1 on May 02, 2014, in [place] She agrees to continue participation in study E1412 documented in this encounter Plan of Treatment Upcoming Encounters Date Type Department Care Team (Late st Contact Info) Description 12/07/2023 12:00 PM EDT Office Visit Dermatology at [facility] [address] [facility] [place] [address] Juan F Chappell MD [facility] DR [place] [address] documented as of this encounter Visit Diagnoses Not on filedocumented in this encounter Care Teams Actuarial Trainee Relationship Specialty Start Date End Date Maine Dunn PA PCP - General 04/08/14 02/13/15 documented as of this encounter
--- OUTSIDE RECORDS SUMMARY | 2023-10-28 00:49 | XMS_ITS | Encounter Summary ---
Author Organization [facility] [place] [address] Care Team Providers Care Gluer And Slicer Hand Name Role Phone Maine Dunn Primary Care Provider [phone] Encounter Details Date Type Department Care Team (Late st Contact Info) Description 05/27/2014 Telephone [place] [phone] Luz Holman Social History Tobacco Use Types Packs/Day Years Used Date Smoking Tobacco: Never Sex and Gender Information Value Date Recorded Sex Assigned at Not on file Gender Identity Not on file Sexual Orientation Not on file documented as of this encounter Miscellaneous Notes * Telephone Encounter - Luz Holman, [facility] - 05/27/2014 2:42 PM EDT Call made to Myriam concerning disability paperwork, left message to return call. Myriam returned my call, I did explain to her that I have not received any forms from [employer]. I asked for [employer]'s phone number, Call made to [facility], spoke with Didi Thornton asked her to fax me the request. Received fax, printed office notes and faxed to ([phone]) June [address] Mondragon who was in the office with pt. Stated that Myriam received a call from [employer] saying they have not received information that was faxed on May 29. I calledSushma ([phone]) spoke to Didi who gave me another fax number to fax information to ([phone]) Receive a call from Erika Thornton from [employer] stating that she has received all of the information that wasfaxed yesterday. I let her know that she could contact me if anything else is needed. Myriam was contacted and is aware. documented in this encounter Plan of Treatment Upcoming Encounters Date Type Department Care Team (Late st Contact Info) Description 12/07/2023 12:00 PM EDT Office Visit Dermatology at [facility] [address] [place] [address] Juan F Chappell MD [facility] DR R[place] [address] documented as of this encounter Visit Diagnoses Not on filedocumented in this encounter Care Teams Gluer And Slicer Hand Relationship Specialty Start Date End Date Maine Dunn PA PCP - General 04/08/14 02/13/15 documented as of this encounter
--- OUTSIDE RECORDS SUMMARY | 2023-10-28 00:49 | XMS_ITS | Encounter Summary ---
[facility] Address [facility] [place] [address] Care Team Providers Care Jetting Machine Operator Name Role Phone Maine Dunn Primary Care Provider [phone] Encounter Details Date Type Department Care Team (Late st Contact Info) Description 05/10/2014 10:00 AM EDT Ancillary Appointment Hematology Oncology at [address] [phone] [address] [facility] [place] [address] Social History Tobacco Use Types Packs/Day Years Used Date Smoking Tobacco: Never Sex and Gender Information Value Date Recorded Sex Assigned at Not on file Gender Identity Not on file Sexual Orientation Not on file documented as of this encounter Progress Notes * Markell Drew RD - 05/10/2014 9:19 AM EDT [facility] Initial Dietitian Assessment Seen By: Arminda Drew MS, RD, GORE INSERTER, LD Referred by: Dr. Gupta Reason for visit: unexpected weight gain Patient and diagnosis: Myriam Vivas is a 63 y.o. 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 She did pretty well with C#2 RCHOP on protocol. Assessment: HPI: Patient Active Problem List Diagnosis ??? 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 BMBx with low grade lymphoma; no large cell. LDH = 412. IPI = 3 (age,stage, LDH) Plan for RCHOP chemo vs ECOG protocol. ?? Cycle 1 R-CHOP given on 04/12/14, with Neulasta support ??? Depression with anxiety Meds: reviewed Labs: NNL Ht/Wt: Reports this wt to be stable Oncology Vitals 05/08/2014 Weight 66.452 kg Height 158.9 cm Wt Hx: UBW: 140- 146 % UBW: IBW: 49.9 kg +/- 10% % IBW: BMI: 26.4 ___ Edema ___ Ascites ___Muscle wasting Calorie needs: 1200 - 1400 Protein needs: 59 Fluid needs: 1.5 - 2 L Food Intake: Food cravings and jags. Currently liking guacamole.Doesn't feel like she is eating terribly, but getting advice from many people. Am: 1 pcToast w/ PB, 2 prunes, activia. One cup of caffeinated tea w/ sugar. Noon: home made mushroom soup. Typically soups for lunch. Pm: Pizza with guacomole. Snacks: nutrs, dr. Fruit (prunes, dates, or marge), occ ice cream, nutella/banana and waffle, Fluids: herbal teas - which she didn't use to enjoy. Water - carries it with her drinks. States on a good day may get in 40 oz. Supplements/Frequency: ___ Ensure/Plus ___ Boost/Plus ___ CIB ___ Other: Teas, vitamins, or other nutritional supplements: Tumeric, O-3, Ca, D3 Food allergies or avoidances: not a big meat eater, otherwise nkfa Appetite: Hungry, Nausea: mild, stomach flips. Takes 1/2 zofran. takes the edge off Vomiting: Chewing: Dentition: Swallowing: + mouth sores Taste Changes: Bowels: + constipation. Prunes, sennakot, colace, miralax Food availability/purchasing, meal planning and preparation: She does or SO, some people are also preparing meals for her, too. 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 Works from home. Physical Activity: Has floor exercises that she tries to do daily. Not walking as much d/t weather.Does yoga and trying to get back to this. Level of Motivation/Readiness to Change: Nutrition Diagnosis: We discussed tisanes/herbal teas to help increase flui intake. Also www.[employer] as she struggles to get in enough water/d. Encouraged regular physical activity (walking - weather permitting- or yoga). Suggested online platform (www.[employer]) if unable to attend community class, which she tries to do once/wk. Reiterated the benefits of light physical activity, 20- 30 minutes, most days of the week to help with fatigue, stimulate appetite, and preserve muscle mass during treatment. Nutrition Intervention: ? Increase caloric needs ? Modify diet consistency: more fiber and fluid ? Increase frequency of meals and snacks ? Need for supplements: not at this time Nutrition Goals: Educational Handouts provided: -- constipation magnet -- Power pudding for regularity -- Constipation Mgmt -- Fiber For Bowel movements -- Fluid Mgmt Other Recommendations: ? Monitoring and Evaluation: Will follow up with Ms. Vivas in 4 week (s) to re-evaluate via email or TC, as this is her preference. I have provided her with my card and contact information should she have any questions in the mean time. Thank you for this consult. documented in this encounter Plan of Treatment Upcoming Encounters Date Type Department Care Team (Late st Contact Info) Description 12/07/2023 12:00 PM EDT Office Visit Dermatology at [facility] [address] [place] [address] Juan F Chappell MD [facility] DR RANDEE [place] [address] documented as of this encounter Visit Diagnoses Not on filedocumented in this encounter Care Teams Jetting Machine Operator Relationship Specialty Start Date End Date Maine Dunn PA PCP - General 04/08/14 02/13/15 documented as of this encounter
--- OUTSIDE RECORDS SUMMARY | 2023-10-28 00:49 | XMS_ITS | Encounter Summary ---
Author Organization [facility] Address [facility] [place] [address] Care Team Providers Care Special Officer Automat Name Role Phone Maine Dunn Primary Care Provider [phone] Encounter Details Date Type Department Care Team (Late st Contact Info) Description 05/17/2014 Orders Only Hematology [place] [address] Kimberly Mondragon MD [facility] DR HEMATOLOGY [place] [address] Lymphoma Social History Tobacco Use Types Packs/Day [...] [facility] [address] [place] [phone] Juan F Chappell MD [facility] DR RANDEE T[place] [address] documented as of this encounter Visit Diagnoses Diagnosis Lymphoma Other malignant lymphomas, unspecified site, extranodal and solid organ sites documented in this encounter Care Teams Special Officer Automat Relationship Specialty Start Date End Date Maine Dunn PA PCP - General 04/08/14 02/13/15 documented as of this encounter
--- OUTSIDE RECORDS SUMMARY | 2023-10-28 00:49 | XMS_ITS | Encounter Summary ---
Author Organization [facility] [place] [address] Care Team Providers Care Warehouse Assembly Worker Name Role Phone Maine Dunn Primary Care Provider [phone] Encounter Details Date Type Department Care Team (Late st Contact Info) Description 05/22/2014 9:00 AM EDT Follow-Up Hematology Oncology at [address] [phone] Blank Lee, COTTON GINNER HELPER [address] [facility] [place] [place] [address] Lymphoma; Depression with anxiety Discharge Disposition: Home Social History Tobacco Use Types Packs/Day Years Used Date Smoking Tobacco: Never Sex and Gender Information Value Date Recorded Sex Assigned at Not on file Gender Identity Not on file Sexual Orientation Not on file documented as of this encounter Last Filed Vital Signs Vital Sign Reading Time Taken Comments Blood Pressure 113/65 05/22/2014 9:00 AM EDT Pulse 84 05/22/2014 9:00 AM EDT Temperature 36.8 ??C (98.2 ??F) 05/22/2014 9:00 AM ED T Respiratory Rate 18 05/22/2014 9:00 AM EDT Oxygen Saturation 98% 05/22/2014 9:00 AM EDT Inhaled Oxygen Concentration - - Weight 68.5 kg (151 lb) 05/22/2014 9:00 AM EDT Height 159 cm (5' 2.6) 05/22/2014 9:00 AM EDT Body Mass Index 27.09 05/22/2014 9:00 AM EDT documented in this encounter Progress Notes * Blank Lee, COTTON GINNER HELPER - 05/22/2014 9:11 AM EDT Subjective: Patient ID: Myriam Vivas is a 63 y.o. female. HPI Comments: Myriam is here today for C3 of R CHOP with neulasta support on study protocol. She is feeling very well overall. Patient Active Problem List Diagnosis ??? Lymphoma [...] mg 2 mg ??? Depression with anxiety BP 113/65 Pulse 84 Temp(Src) 36.8 ??C (98.2 ??F) (Oral) Resp 18 Ht 159 cm (5' 2.6) Wt 68.493 kg (151 lb) BMI 27.09 kg/m2 SpO2 98% Current Outpatient Prescriptions on File Prior to Visit Medication Sig Dispense Refill ??? predniSONE (DELTASONE) 50 mg Tablet Take 3 tablets by mouth daily for 4 days. Take in conjunction with 1 - 20 mg prednisone tablet for a total dose of 170 mg daily on days 2-5 12 tablet 0 ??? predniSONE (DELTASONE) 20 mg Tablet Take 1 tablet by mouth daily for 4 days. Take in conjunction with 3 - 50 mg prednisone tablets for a total dose of 170 mg daily on days 2-5 4 tablet 0 ??? docusate sodium (COLACE) 100 mg Capsule Take 100 mg by mouth 2 times daily. ??? senna (SENOKOT) 8.6 mg Tablet Take 1 tablet by mouth daily. ??? polyethylene glycol (MIRALAX) 17 gram Powder in Packet Take 17 g by mouth daily. ??? LORazepam (ATIVAN) 0.5 mg Tablet Take 1-2 tablets by mouth every 6 hours as needed for Anxiety for up to 30 days. 30 tablet 3 ??? acyclovir (ZOVIRAX) 400 mg Tablet Take 1 tablet by mouth 2 times daily. 60 tablet 3 ??? acetaminophen (TYLENOL) 500 mg Tablet Take 1,000 mg by mouth every 6 hours as needed. ??? ondansetron (ZOFRAN, HYDROCHLORIDE,) 8 mg Tablet Take 1 tablet by mouth every 8 hours as needed for Nausea. 10 tablet 6 ??? UNABLE TO FIND Med Name: Tumeric ??? [place]-3 Fatty Acids-Vitamin E (FISH OIL) 1,000 mg Capsule Take by mouth. ??? Calcium 500 mg Tablet Take by mouth. ??? Cholecalciferol, Vitamin D3, (VITAMIN D-3) 2,000 unit Capsule Take 1,000 Units by mouth. ??? escitalopram (LEXAPRO) 10 mg tablet Current Facility-Administered Medications on File Prior to Visit Medication Dose Route Frequency Provider Last Rate Last Dose ??? sodium chloride 0.9 % flush 20 mL 20 mL Intravenous Daily PRN Kimberly Mondragon MD 20 mL at 05/01/14 9598 Review of Systems Constitutional: Positive for activity change (doing less as she gets tired easily- difficult to concentrate for long periods of time) and fatigue. Negative for fever, appetite change and unexpected weight change. Night sweats have resolved HENT: Positive for mouth sores (rare). Eyes: Negative. Respiratory: Negative. Cardiovascular: Negative. Gastrointestinal: Positive for nausea (occasional and responsive to meds at home) and constipation (using senna/colace and miralax). Negative for vomiting, abdominal pain and abdominal distention. Endocrine: Negative. Genitourinary: Negative. Musculoskeletal: Negative. Skin: Positive for rash (resolving - ?zoster completely asymptomatic from it). Neurological: Negative for dizziness, weakness, numbness and headaches. Psychiatric/Behavioral: Positive for sleep disturbance. The patient is nervous/anxious (good support and making use of therapist- requesting increase in ativan as she finds 1mg at night works very well for sleep). Objective: Physical Exam Constitutional: She is oriented to person, place, and time. She appears well- developed and well-nourished. HENT: Head: Normocephalic. Mouth/Throat: No oropharyngeal exudate. Eyes: Conjunctivae and EOM are normal. Pupils are equal, round, and reactive to light. Neck: Normal range of motion. Neck supple. Cardiovascular: Normal rate and regular rhythm. Pulmonary/Chest: Effort normal and breath sounds normal. Abdominal: Soft. She exhibits no distension and no mass. There is no tenderness. Musculoskeletal: Normal range of motion. She exhibits no edema. Lymphadenopathy: She has no cervical adenopathy. She has no axillary adenopathy. Right: No supraclavicular adenopathy present. Left: No supraclavicular adenopathy present. Neurological: She is alert and oriented to person, place, and time. She displays abnormal reflex (hypoactive patellar reflexes). Skin: Skin is warm and dry. Psychiatric: She has a normal mood and affect. Her behavior is normal. Judgment and thought contentnormal. Labs: All labs within normal limits except for mild transaminase elevation- AST 53 and ALT 114 - likely from treatment Assessment and Plan: Lymphoma: Plan to treat today for C3Abraham Miguel is doing exceptionally well. She was seen by the research nurse today and her orders have been prepared. I have encouraged her to call me if she has any trouble afterwards. She will RTC per protocol. Blank Lee, MSN, DIRECT SALES PROFESSIONAL, AOCN Hematology/Oncology Nurse Practitioner [place], [place] [phone] documented in this encounter Plan of Treatment Upcoming Encounters Date Type Department Care Team (Late st Contact Info) Description 12/07/2023 12:00 PM EDT Office Visit Dermatology at [facility] [address] [place] [address] Juan F Chappell MD [facility] DR R[place] [address] documented as of this encounter Visit Diagnoses Diagnosis Lymphoma Other malignant lymphomas, unspecified site, extranodal and solid organ sites Depression with anxiety Dysthymic disorder documented in this encounter Care Teams Warehouse Assembly Worker Relationship Specialty Start Date End Date Maine Dunn PA PCP - General 04/08/14 02/13/15 documented as of this encounter
--- OUTSIDE RECORDS SUMMARY | 2023-10-28 00:49 | XMS_ITS | Encounter Summary ---
Author Organization [facility] Address [facility] [place] [address] Care Team Providers Care Airplane Flight Attendant Name Role Phone Maine Dunn Primary Care Provider [phone] Reason for Visit * Reason Comments Injections Neulasta Encounter Details Date Type Department Care Team (Late st Contact Info) Description 05/03/2014 2:30 PM EDT Office Visit Hematology Oncology at [address] [phone] CL[address], DR MARINA HEM/ONC Isael Laurent MD [facility] [place] [address] Lymphoma Discharge Disposition: Home Social History Tobacco Use Types Packs/Day Years Used Date Smoking Tobacco: Never Sex and Gender Information Value Date Recorded Sex Assigned at Not on file Gender Identity Not on file Sexual Orientation Not on file documented as of this encounter Last Filed Vital Signs Vital Sign Reading Time Taken Comments Blood Pressure 118/56 05/03/2014 2:30 PM EDT Pulse 70 05/03/2014 2:30 PM EDT Temperature 36.5 ??C (97.7 ??F) 05/03/2014 2:30 PM ED T Respiratory Rate 18 05/03/2014 2:30 PM EDT Oxygen Saturation 97% 05/03/2014 2:30 PM EDT Inhaled Oxygen Concentration - - Weight - - Height - - Body Mass Index - - documented in this encounter Progress Notes * Faustina Soto RN - 05/03/2014 5:14 PM EDT Infusion Note Diagnosis:DLBCL Study # E 1412 Arm B Treatment: Neulasta Injection Neulasta 6mg injected in left abdomen Patient aware to call clinic with any questions or concerns. Plan: Return to clinic as scheduled. documented in this encounter Plan of Treatment Upcoming Encounters Date Type Department Care Team (Late st Contact Info) Description 12/07/2023 12:00 PM EDT Office Visit Dermatology at [facility] [address] [place] [address] Juan F Chappell MD [facility] DR [place] [address] documented as of this encounter Visit Diagnoses Diagnosis Lymphoma Other malignant lymphomas, unspecified site, extranodal and solid organ sites documented in this encounter Administered Medications Inactive Administered Medications - up to 3 most recent administrations Medication Order MAR Action Action Date Dose Rate Site pegfilgrastim (NEULASTA) injection 6 mg 6 mg, Subcutaneous, ONCE, 1 dose, On Tue05/03/14 at 1430, E1412 - cycle 2 day 3., Routine Given 05/03/2014 2:40 PM EDT 6 mg documented in this encounter Care Teams Airplane Flight Attendant Relationship Specialty Start Date End Date Maine Dunn PA PCP - General 04/08/14 02/13/15 documented as of this encounter
--- OUTSIDE RECORDS SUMMARY | 2023-10-28 00:49 | XMS_ITS | Encounter Summary ---
Author Organization [facility] Address [facility] [place] [address] Care Team Providers Care Director Of User Experience Name Role Phone Johann Dunn Primary Care Provider [phone] Reason for Visit * Reason Comments Follow-up Encounter Details Date Type Department Care Team (Late st Contact Info) Description 05/01/2014 8:00 AM EDT Follow-Up [place] [id number] Kimberly Mondragon MD [facility] [address] [place] [address] Lymphoma Discharge Disposition: Home Social History Tobacco Use Types Packs/Day Years Used Date Smoking Tobacco: Never Sex and Gender Information Value Date Recorded Sex Assigned at Not on file Gender Identity Not on file Sexual Orientation Not on file documented as of this encounter Last Filed Vital Signs Vital Sign Reading Time Taken Comments Blood Pressure 119/58 05/01/2014 8:00 AM EDT Pulse 106 05/01/2014 8:00 AM EDT Temperature 36.6 ??C (97.9 ??F) 05/01/2014 8:00 AM ED T Respiratory Rate 16 05/01/2014 8:00 AM EDT Oxygen Saturation 98% 05/01/2014 8:00 AM EDT Inhaled Oxygen Concentration - - Weight 66.4 kg (146 lb 6.4 oz) 05/01/2014 8:00 A M EDT Height 158.9 cm (5' 2.56) 05/01/2014 8:00 AM ED T Body Mass Index 26.3 05/01/2014 8:00 AM EDT documented in this encounter Progress Notes * Kimberly Mondragon MD - 05/01/2014 4:12 PM EDT . [facility] [place] [address] FOLLOW-UP PATIENT EVALUATION PROBLEM LIST: Patient Active Problem List Diagnosis ??? 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 PET with stage III A disease. BMBx with low grade lymphoma; no large cell. LDH = 412. IPI = 3 (age,stage, LDH) Plan for RCHOP chemo vs ECOG protocol. ?? Cycle 1 R-CHOP given on 04/12/14, with Neulasta support ??? Depression with anxiety INTERIM HISTORY OF PRESENT ILLNESS: It was my pleasure to see Myriam Vivas back in clinic today. Myriam Vivas is a 63 y.o. 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 She did pretty well with C#1 RCHOP on protocol. Feeling OK. Some constipation which she controlled with fiber diet, senna and colace. A day or 2of finger tip tingling ,now resolved. Minimal Nausea. Just needed 2 zofran tabs. + hair loss. + fatique - improving. LN improving. ROS Energy level:improving Pain: No Appetite:eating well but different foods than her normal Fevers/chills/sweats:No Bruising/bleeding/melena:No Recent infections:No HEENT: negative Nausea/vomiting/diarrhea/constipation: see above SOB/HAUSER/chest pain:No Change in adenopathy or other masses:No Unexpected weight loss or gain: + wt gain Skin rashes or petechiae:No Musculoskeletal complaints:No Extremities: Negative upper and lower bilaterally Neurologic symptoms: see above Mood: Sig improvement in anxiety Sleep: Using 1mg ativan to help w/ sleep. MEDS: Outpatient Prescriptions Marked as Taking for the 05/01/14 encounter (Follow-Up) with Kimberly Mondragon MD Medication Sig Dispense Refill ??? acyclovir (ZOVIRAX) 400 mg Tablet Take 1 tablet by mouth 2 times daily. 60 tablet 3 ??? acetaminophen (TYLENOL) 500 mg Tablet Take 1,000 mg by mouth every 6 hours as needed. ??? ondansetron (ZOFRAN, HYDROCHLORIDE,) 8 mg Tablet Take 1 tablet by mouth every 8 hours as needed for Nausea. 10 tablet 6 ??? UNABLE TO FIND Med Name: Tumeric ??? Matthews-3 Fatty Acids-Vitamin E (FISH OIL) 1,000 mg [...] Comments) Unsure if actual allergy, please try [id number] Skin tears/rawness INTERIM SOCIAL HISTORY Changes in job, home situation, tobacco or alcohol use: see HPI PHYSICAL EXAM BP 119/58 Pulse 106 Temp(Src) 36.6 ??C (97.9 ??F) (Oral) Resp 16 Ht 158.9 cm (5' 2.56) Wt 66.407 kg (146 lb 6.4 oz) BMI 26.30 kg/m2 SpO2 98% Body surface area is 1.71 meters squared. GENERAL: Myriam Vivas appears well and is in no acute distress. ENT: Oral pharynx clear. EYES: SWATHI NECK: Supple without adenopathy. AXILLARY: L axillary adenopathy multiple smaller LN - now no longer conglomerate -about 1.5cm largest OTHER LYMPH: no adenopathy CARDIAC: Regular [...] Results (from the past 72 hour(s)) CBC (WITH DIFF) Result Value Ref Range WBC 8.49 (*) Hemoglobin 11.1 (*) 12.0 - 16.0 Hematocrit 32.7 (*) 36.0 - 46.0 Platelets 334 (*) Neutr Abs (ANC) 6.13 (*) COMPREHENSIVE METABOLIC PANEL (NON-FASTING) Result Value Ref Range Calcium 9.3 (*) 8.7 - 10.7 Glucose Lvl 102 (*) BUN 26 (*) Creatinine 0.8 (*) Total Protein 7.1 (*) 6.4 - 8.2 Albumin 3.5 (*) 3.5 - 5.0 Total Bilirubin 0.4 (*) 0.1 - 1.4 Alk Phos 106 (*) Sodium 142 (*) 137 - 147 Potassium 3.7 (*) 3.4 - 5.3 Chloride 105 (*) 99 - 108 CO2 27 (*) 22 - 29 AST 18 (*) 13 - 35 ALT 34 (*) 7 - 35 LACTATE DEHYDROGENASE Result Value Ref Range LDH 239 (*) 80 - 250 RADIOLOGY STUDIES REVIEWED: none ASSESSMENT/PLAN: Myriam is here for C#2 RCHOP on protocol. She did relatively well with C#1. I reviewed all of her side effects (see HPI) and management of these. Research RN reinforced this as well. She is Ready for C#2. She has her prednisone and knows to start 170mg tomorrow X 4 days. Heme - will support with neulasta again. Constipation - continue current regimen - can add miralax if needed. Rash - almost completely resolved. Unclear etiology but since it appeared vesicular like shingles -we have kept her on ACV 400 bid ongoing and will plan to continue through end of treatmetn just as a precaution. TLS - none to date- stop allopurinol Sleep - using ativan 1mg qhs. Script renewed Anxiety - significantly improved - rare use of ativan during the day - mostly when she has to do work. Given her multiple side effect. I think one more mid-cycle check at [facility] might be helpful. We will plan to see her on 05/09 at [facility] and then transfer her care to [facility] (on protocol) for C#3. total time: time in counselling: Copy JOHANN LEORA, PA documented in this encounter Plan of Treatment Upcoming Encounters Date Type Department Care Team (Late st Contact Info) Description 12/07/2023 12:00 PM EDT Office Visit Dermatology at [facility] [address] [place] [address] Juan F Chappell MD [facility] [address] [place] [address] documented as of this encounter Results * (ABNORMAL) Lactate Dehydrogenase (06/10/2014 10:26 AM EDT) Lactate Dehydrogenase 231(H) 110 - 220 unit/L CERNER MILLENNIUM Blood specimen (specimen) 06/10/2014 10:26 AM EDT 06/10/2014 10:48 AM EDT Narrative Resulting Agency Comment Spec In Lab Kimberly Mondragon MD CHEMISTRY ORDERA [facility] coJuvoIUM * (ABNORMAL) Comprehensive metabolic panel (non-fasting) (06/10/2014 10:26 AM EDT) Glucose 93 60 - 199 mg/dL CERNER [...] the following links into your internet browser. [email or web address] Blood specimen (specimen) 06/10/2014 10:26 AM EDT 06/10/2014 10:48 AM EDT Narrative Resulting Agency Comment Spec In Lab Kimberly Mondragon MD CHEMISTRY ORDERA BLES CERDANIA COREAS documented in this encounter Visit Diagnoses Diagnosis Lymphoma Other malignant lymphomas, unspecified site, extranodal and solid organ sites documented in this encounter Care Teams Director Of User Experience Relationship Specialty Start Date End Date Johann Dunn PA PCP - General 04/08/14 02/13/15 documented as of this encounter
--- OUTSIDE RECORDS SUMMARY | 2023-10-28 00:49 | XMS_ITS | Encounter Summary ---
Author Organization [facility] Address [facility] [place] [address] Care Team Providers Care Aircraft Refueller Name Role Phone Maine Dunn Primary Care Provider [phone] Reason for Visit * Reason Comments Follow-up Encounter Details Date Type Department Care Team (Late st Contact Info) Description 04/23/2014 8:30 AM EDT Follow-Up [place] [phone] Kimberly Mondragon MD [facility] [address] [place] [address] Lymphoma; DLBCL (diffuse large B cell lymphoma) Discharge Disposition: Home Social History Tobacco Use Types Packs/Day Years Used Date Smoking Tobacco: Never Sex and Gender Information Value Date Recorded Sex Assigned at Not on file Gender Identity Not on file Sexual Orientation Not on file documented as of this encounter Last Filed Vital Signs Vital Sign Reading Time Taken Comments Blood Pressure 112/55 04/23/2014 8:12 AM EDT Pulse 87 04/23/2014 8:12 AM EDT Temperature 37.6 ??C (99.7 ??F) 04/23/2014 8:12 AM ED T Respiratory Rate 18 04/23/2014 8:12 AM EDT Oxygen Saturation 99% 04/23/2014 8:12 AM EDT Inhaled Oxygen Concentration - - Weight 65.7 kg (144 lb 13.5 oz) 04/23/2014 8:12 AM EDT Height 160 cm (5' 2.99) 04/23/2014 8:12 AM EDT Body Mass Index 25.66 04/23/2014 8:12 AM EDT documented in this encounter Progress Notes * Kimberly Burnett, BRAND DEVELOPMENT MANAGER - 04/22/2014 4:24 PM EDT [facility] [place] [address] FOLLOW-UP PATIENT EVALUATION PROBLEM LIST: Patient Active [...] is a 63 y.o. year old female Recently diagnosed with Diffuse Iomyq-B-bpcg Lymphoma who is Day + 12 s/p Cycle #1 R-CHOP chemotherapy. Also received Neulasta support. Tolerated Rituxan without any difficulty. Has several issues this past week since receiving treatment. Noticed a rash at the end of last weekon her trunk that were blistery looking and itchy, initially. Since then, they have crusted over and are no longer pruritic and have never been painful. The lesions are also smaller. No fevers or shaking chills, although she gets cold a lot easier. She also developed drenching night sweats two nights ago. Had sinus pain last week, which has resolved, and this is not unusual for her. Mild ARVIZU, clear rhinorrhea, which is normal for her. No sorethroat or cough. Developed mouth sores shortly after receiving chemo and using baking soda rinses. They are better. Food tastes totally different. Appetite is less, although she does get hungry and fills quickly. Eats in the middle of the night. Tolerating around 40oz fluids/day. Nausea a few days ago and no vomiting. Constipated about one week after chemo, causing bleeding hemmroids. Used smove move tea, fiber pills and colace. Very painful. Last BM was yesterday. No neuropathy ROS Energy level: variable. Tires quickly. Exercised one morning. 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 Pain: No Appetite: Decreased but stable Fevers/Chills/Sweats: Night sweats x 2 nights Bruising/bleeding/melena:No Recent infections:No HEENT: negative Nausea/vomiting/diarrhea/constipation:Nausea and Constipation SOB/HAUSER/chest pain:No Change in adenopathy or other masses:No Unexpected weight loss or gain:No Skin rashes or petechiae: Rash on abdomen and flank katie. Musculoskeletal complaints:No Extremities: Negative upper and lower bilaterally Neurologic symptoms:No Mood: Normal Sleep: No difficulty sleeping MEDS: Outpatient Prescriptions Marked as Taking for the 04/23/14 encounter (Follow-Up) with Kimberly Mondragon MD Medication Sig Dispense Refill ??? acetaminophen (TYLENOL) 500 mg Tablet Take 1,000 mg by mouth every 6 hours as needed. ??? allopurinol (ZYLOPRIM) 300 mg Tablet Take 1 tablet by mouth daily for 14 days. 14 tablet 2 ??? ondansetron (ZOFRAN, HYDROCHLORIDE,) 8 mg Tablet Take 1 tablet by mouth every 8 hours as needed for Nausea. 10 tablet 6 ??? UNABLE TO FIND Med Name: Tumeric ??? Winside-3 Fatty Acids-Vitamin E (FISH OIL) 1,000 mg [...] Comments) Unsure if actual allergy, please try [id number] Skin tears/rawness INTERIM SOCIAL HISTORY Changes in job, home situation, tobacco or alcohol use: see HPI PHYSICAL EXAM BP 112/55 Pulse 87 Temp(Src) 37.6 ??C (99.7 ??F) (Temporal) Resp 18 Ht 160 cm (5' 2.99) Wt 65.7 kg (144 lb 13.5 oz) BMI 25.66 kg/m2 SpO2 99% Body surface area is 1.71 meters squared. GENERAL: Myriam Vivas appears well and is in no acute distress. Accompanied by her friend. ENT: Oral pharynx clear. Healing ulcer on inner aspect of bottem lip. EYES: SWATHI NECK: Supple without discreet adenopathy. AXILLARY: Unable to appreciate left axilla adenopathy. OTHER LYMPH: no adenopathy CARDIAC: Regular rate and rhythm without S3,S4 or murmurs. LUNGS: Clear to auscultation./percussion ABDOMEN: Soft and non-tender without hepatosplenomegaly or masses. EXTREMITIES: No cyanosis, clubbing, edema or calf tenderness. SKIN: Discreet papular crusted over lesions over abdomen and extending around the flank bilaterally. NEUROLOGICAL: Alert and oriented to person, place and time. MUSCULOSKELETAL: No spinal or chest wall tenderness. LINE: Right chest Mediport LABORATORY STUDIES Recent Results (from the past 72 hour(s)) COMPREHENSIVE METABOLIC PANEL (NON-FASTING) Result Value Ref Range Glucose Lvl 113 60 - 199 mg/dL BUN 17 8 - 18 mg/dL Creatinine 0.72 0.70 - 1.20 mg/dL Sodium 143 135 - 145 mmol/L Potassium 3.6 3.5 - 5.0 mmol/L Chloride 100 98 - 107 mmol/L CO2 30 22 - 31 mmol/L Anion Gap 13 5 - 15 mmol/L Calcium 9.9 8.5 - 10.5 mg/dL Total Protein 6.4 6.1 - 8.0 gm/dL Albumin 4.0 3.2 - 5.2 gm/dL AST 14 0 - 30 unit/L ALT 21 0 - 30 unit/L Alk Phos 99 40 - 104 unit/L Total Bilirubin 0.3 0.2 - 1.3 mg/dL Bili, Direct 0.1 0.0 - 0.3 mg/dL Estimated GFR >60 >=60 HEMOGRAM Result Value Ref Range WBC 12.6 (*) 4.0 - 10.0 x10(3)/mcL RBC 3.53 (*) 3.93 - 5.22 x10(6)/mcL Hemoglobin 10.4 (*) 11.2 - 15.7 gm/dL Hematocrit 30.5 (*) 34.0 - 45.0 % MCV 86.4 79.0 - 94.0 fL MCH 29.5 26.6 - 32.2 pg MCHC 34.1 32.0 - 36.5 gm/dL Platelets 135 (*) 145 - 370 x10(3)/mcL RDWSD 39.4 35.0 - 46.0 fL RDWCV 12.6 10.9 - 14.4 % MPV 9.3 9.0 - 12.0 fL DIFFERENTIAL, MANUAL Result Value Ref Range Neutrophil % 68 Band % 10 Lymphocyte % 12 Monocyte % 6 Eosinophil % 1 Metamyelo % 2 Myelocyte % 1 Neutrophil Abs 8.6 (*) 1.5 - 6.3 x10(3)/mcL Band Abs 1.3 (*) 0.2 - 0.6 x10(3)/mcL Neutr Abs (ANC) 9.82 (*) 1.50 - 6.30 x10(3)/mcL Lymphocyte Abs 1.5 1.0 - 3.6 x10(3)/mcL Monocyte Abs 0.8 0.2 - 1.0 x10(3)/mcL Eosinophil Abs 0.1 0.0 - 0.5 x10(3)/mcL Metamyelo Abs 0.2 (*) 0.0 - 0.0 x10(3)/mcL Myelocyte Abs 0.1 (*) 0.0 - 0.0 x10(3)/mcL nRBC % [address] Plat Estimate Normal RBC Morphology Abnormal Ovalocytes 1-5 Toxic Granulation Present Dohle Bodies Present nRBC Abs 0.250 (*) 0.000 - 0.012 x10(3)/mcL RADIOLOGY STUDIES REVIEWED: none ASSESSMENT: 63yo female recently diagnosed with Diffuse Large B-Cell Lymphoma who is Day +12 Cycle #1 R-CHOP chemotherapy on protocal E1412: Randomized Phase II Open Label Study of Lenalidomide R-CHOP (R2CHOP) vs RCHOP (Rituximab, Cyclophosphamide, Doxorubicin, Vincristine and Prednisone) in Patients with Newly Diagnosed Diffuse Large B Cell Lymphoma Overall, tolerated treatment pretty well. Mouth sores are healing and blood counts are stable overall. Palpable neck and left axillary node decreased. 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 Discussed energy conservation measures and how fatigue is a cumulative side effect from treatment. Discussed diet and the importance of protein. Discussed an aggressive bowel regimen, including stopping the fiber pills(she was taking 10 pills/day, which probably did not help her constipation), and getting on a regimen of Colace BID and Sennokot 1 tablet nightly and increase based on results. Willadd in Miralax if the stool softenor/senna does not work. She will also modify her diet and will try prunes. We will call Myriam on to see how she is doing. Minimal nausea, well controlled onher antiemetics. PLAN: 1. She is scheduled to come to [facility] on 05/01, for C2 D1 R-CHOP, with Neulasta in [facility]. Subsequent chemo treatments will be administered in [place], [place]. 2. Acyclovir 800mg QID x 5 days, then prophylactic dose of 400mg BID will be initiated throughout the remainder of her therapy. 3. Aggressive bowel regimen. See above. We will call Myriam on to followup. Kimberly Burnett, MSN, BRAND DEVELOPMENT MANAGER Nurse Practitioner Section of Hematology/Oncology [facility] Office phone: Copy SOPHY FUNES documented in this encounter Miscellaneous Notes * Addendum Note - Ellie Workman RN - 04/30/2014 4:43 PM EDTAddended by: ELLIE WORKMAN on: 04/30/2014 04:43 PM Modules accepted: Orders documented in this encounter Plan of Treatment Upcoming Encounters Date Type Department Care Team (Late st Contact Info) Description 12/07/2023 12:00 PM EDT Office Visit Dermatology at [address] [place] [address] Juan F Chappell MD [facility] DR RANDEE [place] [address] documented as of this encounter Procedures Procedure Name Priority Date/Time Associated Diagnosis Comments CBC (WITH DIFF) STAT 04/30/2014 9:15 AM EDT DLBCL (diffuse large B cell lymphoma) LACTATE DEHYDROGENASE STAT 04/30/2014 9:15 AM EDT DLBCL (diffuse large B cell lymphoma) COMPREHENSIVE METABOLIC PANEL STAT 04/30/2014 9:15 AM EDT DLBCL (diffuse large B cell lymphoma) DIFFERENTIAL, MANUAL STAT 04/23/2014 7:49 AM EDT HEMOGRAM STAT 04/23/2014 7:49 AM EDT Lymphoma CBC (WITH DIFF) STAT 04/23/2014 7:49 AM EDT Lymphoma COMPREHENSIVE METABOLIC PANEL STAT 04/23/2014 7:49 AM EDT Lymphoma documented in this encounter Results * (ABNORMAL) Lactate Dehydrogenase (04/30/2014 9:15 AM EDT) Lactate Dehydrogenase 239(EXTER NAL/ABN) 80 - 250 Blood specimen (specimen) 04/30/2014 9:15 AM EDT Kimberly Mondragon MD CHEMISTRY ORDERA BLES * (ABNORMAL) Comprehensive metabolic panel (non-fasting) (04/30/2014 9:15 AM EDT) Calcium 9.3(Exter nal Lab) 8.7 - 10.7 Glucose 102(EXTER NAL/ABN) Blood Urea Nitrogen 26(ASSEMBLING MOTOR BUILDER AL/ABN) Creatinine 0.8(Exter nal Lab) Protein, Total 7.1(Exter nal Lab) 6.4 - 8.2 Albumin 3.5(Exter nal Lab) 3.5 - 5.0 Bilirubin, Total 0.4(Exter nal Lab) 0.1 - 1.4 Comment:Actual value 0.38 per outside lab report; rounded per eDH; please see scanned docs for reference Alkaline Phosphatase 106(Exter nal Lab) Sodium 142(Exter nal Lab) 137 - 147 Potassium 3.7(Exter nal Lab) 3.4 - 5.3 Chloride 105(Exter nal Lab) 99 - 108 Carbon Dioxide 27(Spinning Machine Tender al Lab) 22 - 29 Comment:Actual value 26.7 per outside lab report; rounded per eDH; please see scanned docs for reference Aspartate Aminotransferase 18(Spinning Machine Tender al Lab) 13 - 35 Alanine Aminotransferase 34(Spinning Machine Tender al Lab) 7 - 35 Blood specimen (specimen) 04/30/2014 9:15 AM EDT Kimberly Mondragon MD CHEMISTRY ORDERA BLES * (ABNORMAL) CBC (with Diff) (04/30/2014 9:15 AM EDT) White Blood Cell 8.49(Exter nal Lab) Hemoglobin 11.1(EXTER NAL/ABN) 12.0 - 16.0 Hematocrit 32.7(EXTER NAL/ABN) 36.0 - 46.0 Platelet 334(Spinning Machine Tender al Lab) Neutrophil Absolute (ANC) - Automated 6.13(Exter nal Lab) Blood specimen (specimen) 04/30/2014 9:15 AM EDT Kimberly Mondragon MD HEMATOLOGY ORDER AYO * (ABNORMAL) Differential, Manual (04/23/2014 7:49 AM EDT) Neutrophil % Manual 68 % CERNER MILLENNIUM Band % 10 % CERNER MILLENNIUM Lymphocyte Manual 12 % CE RNER MILLENNIUM Monocyte Manual 6 % CERN ER MILLENNIUM Eosinophil Manual 1 % CE RNER MILLENNIUM Metamyelocyte Manual 2 % CERNER MILLENNIUM Myelocyte Manual 1 % CER NER MILLENNIUM Neutrophil Absolute (ANC) - Manual 8.6(H) 1.5 - 6.3 x10(3)/mc L CERNER MILLENNIUM Band Abs 1.3(H) 0.2 - 0.6 x10(3)/mc L CERNER MILLENNIUM Neutrophil Absolute (ANC) - Automated 9.82(H) 1.50 - 6.30 x10(3)/mc L CERNER MILLENNIUM Lymph Absolute Manual 1.5 1.0 - 3.6 x10(3)/mc L CERNER MILLENNIUM Monocyte Absolute Manual 0.8 0.2 - 1.0 x10(3)/mc L CERNER MILLENNIUM Eos Absolute Manual 0.1 0.0 - 0.5 x10(3)/mc L CERNER MILLENNIUM Borden Absolute Manual 0.2(H) 0.0 - 0.0 x10(3)/mc L CERNER MILLENNIUM Myelo Absolute Manual 0.1(H) 0.0 - 0.0 x10(3)/mc L CERNER MILLENNIUM Nucleated Red Cell Manual 2 % CERNER MILLENNIUM Total Cells Ct 100 CERNE R MILLENNIUM Plat estimate Normal CERNER MILLENNIUM RBC Morphology Abnormal CERNE R MILLENNIUM Ovalocytes 1-5 /HPF CERNER MILLENNIUM Toxic Granulation Present CE RNER MILLENNIUM Dohle Bodies Present CERNER MILLENNIUM nRBC Abs 0.250(H) 0.000 - 0.012 x10(3)/mc L CERNER MILLENNIUM Blood specimen (specimen) 04/23/2014 7:49 AM EDT 04/23/2014 7:53 AM EDT Narrative Resulting Agency Comment Spec In Lab Kimberly Mondragon MD HEMATOLOGY ORDER AYO CERNER MILLENNIUM * (ABNORMAL) Hemogram (04/23/2014 7:49 AM EDT) White Blood Cell 12.6(H) 4.0 - 10.0 x10(3)/mc L CERNER MILLENNIUM Red Blood Cell 3.53(L) 3.93 - 5.22 x10(6)/mc L CERNER MILLENNIUM Hemoglobin 10.4(L) 11.2 - 15.7 gm/dL CERNER MILLENNIUM Hematocrit 30.5(L) 34.0 - 45.0 % CERNER MILLENNIUM Mean Cell Volume 86.4 79.0 - 94.0 fL CERNER MILLENNIUM Mean Cell Hemoglobin 29.5 26.6 - 32.2 pg CERNER MILLENNIUM Mean Cell Hemoglobin Concentration 34.1 32.0 - 36.5 gm/dL CERNER MILLENNIUM Platelet 135(L) 145 - 370 x10(3)/mc L CERNER MILLENNIUM RDW Standard Deviation 39.4 35.0 - 46.0 fL CERNER MILLENNIUM RDW coefficient of variation 12.6 10.9 - 14.4 % CERNER MILLENNIUM Mean Platelet Volume 9.3 9.0 - 12.0 fL CERNER MILLENNIUM Blood specimen (specimen) 04/23/2014 7:49 AM EDT 04/23/2014 7:53 AM EDT Narrative Resulting Agency Comment Spec In Lab Kimberly Mondragon MD HEMATOLOGY ORDER AYO CERNER MILLENNIUM * Comprehensive metabolic panel (non-fasting) (04/23/2014 7:49 AM EDT) [facility] Glucose 113 60 - 199 mg/dL CERNER MILLENNIUM Comment:Diabetes: >=200 mg/d L plus symptoms Blood Urea Nitrogen 17 8 - 18 mg/dL CERNER MILLENNIUM Creatinine 0.72 0.70 - 1.20 mg/dL CERNER MILLENNIUM Comment: Please note that the pediatric reference intervals supplied above were not validated at [facility]. Results from pediatric patients should [...] the following links into your internet browser. [email or web address] Blood specimen (specimen) 04/23/2014 7:49 AM EDT 04/23/2014 7:53 AM EDT Narrative Resulting Agency Comment Spec In Lab Kimberly Mondragon MD CHEMISTRY ORDERA [facility] COREAS documented in this encounter Visit Diagnoses Diagnosis Lymphoma Other malignant lymphomas, unspecified site, extranodal and solid organ sites DLBCL (diffuse large B cell lymphoma) Other malignant lymphomas, unspecified site, extranodal and solid organ sites documented in this encounter Care Teams Aircraft Refueller Relationship Specialty Start Date End Date Maine Dunn PA PCP - General 04/08/14 02/13/15 documented as of this encounter
--- OUTSIDE RECORDS SUMMARY | 2023-10-28 00:49 | XMS_ITS | Encounter Summary ---
Author Organization [facility] Address [facility] [place] [address] Care Team Providers Care English Language Learner Tutor Name Role Phone Maine Dunn Primary Care Provider [phone] Encounter Details Date Type Department Care Team (Late st Contact Info) Description 04/26/2014 Orders Only Hematology [place] [address] Yuliet Chavez RN DLBCL (diffuse large B [...] 12:00 PM EDT Office Visit Dermatology at [address] [place] [address] Juan F Chappell MD [facility] DR R[place] [address] documented as of this encounter Results * PET/CT STANDARD (Skull base to Mid-thigh) (06/10/2014 12:48 PM EDT) Anatomical Region Laterality Modality Other 06/10/2014 12:4 8 PM EDT Impressions 06/10/2014 4:02 PM EDT IMPRESSION: 1. ??Overall marked interval improvement, however, residual active lymphoma in the residual right paratracheal ammon mass. 2. ??No other sites of active lymphoma. Thank you for referring this patient to [facility]. This report was reviewed by Rudolph Cardenas at 06/10/2014 3:56 PM Film and interpretation reviewed by the attending Narrative 06/10/2014 4:02 PM EDT EXAMINATION: PET/CT STANDARD (Skull base to Mid-thigh) CLINICAL HISTORY: diffuse large B cell lymphoma TECHNIQUE: Procedure: Following IV injection of 33-trxdqg-5-deoxyglucose (FDG) a standard uptake of approximately 60 [...] lymphoma TECHNIQUE: Procedure: Following IV injection of 18-tqoipn-3-deoxyglucose(FDG) a standard uptake of approximately 60 minutes, [...] Thank you for referring this patient to [facility]. This report was reviewed by Rudolph Cardenas at 06/10/2014 3:56 PM Film and interpretation reviewed by the attending Kimberly Mondragon MD IMG PET ORDERABL ES * (ABNORMAL) Lactate Dehydrogenase (04/30/2014 9:15 AM EDT) Lactate Dehydrogenase 239(EXTER NAL/ABN) 80 - 250 Blood specimen (specimen) 04/30/2014 9:15 AM EDT Kimberly Mondragon MD CHEMISTRY ORDERA BLES * (ABNORMAL) Comprehensive metabolic panel (non-fasting) (04/30/2014 9:15 AM EDT) Calcium 9.3(Exter nal Lab) 8.7 - 10.7 Glucose 102(EXTER NAL/ABN) Blood Urea Nitrogen 26(METER SUPERVISOR AL/ABN) Creatinine 0.8(Exter nal Lab) Protein, Total [...] nal Lab) 99 - 108 Carbon Dioxide 27([facility] [employer] al Lab) 22 - 29 Comment:Actual value 26.7 per outside lab report; rounded per eDH; please see scanned docs for reference Aspartate Aminotransferase 18([facility]) 13 - 35 Alanine Aminotransferase 34([facility]) 7 - 35 Blood specimen (specimen) 04/30/2014 9:15 AM EDT Kimberly Mondragon MD CHEMISTRY ORDERA BLES * (ABNORMAL) CBC (with Diff) (04/30/2014 9:15 AM EDT) White Blood Cell 8.49(Exter nal Lab) Hemoglobin 11.1(EXTER NAL/ABN) 12.0 - 16.0 Hematocrit 32.7(EXTER NAL/ABN) 36.0 - 46.0 Platelet 334([employer] al Lab) Neutrophil Absolute (ANC) - Automated 6.13(Exter nal Lab) Blood specimen (specimen) 04/30/2014 9:15 AM EDT Kimberly Mondragon MD HEMATOLOGY ORDER AYO documented in this encounter Visit Diagnoses Diagnosis DLBCL (diffuse large B cell lymphoma) Other malignant lymphomas, unspecified site, extranodal and solid organ sites DLBCL (diffuse large B cell lymphoma) Other malignant lymphomas, unspecified site, extranodal and solid organ sites documented in this encounter Care Teams English Language Learner Tutor Relationship Specialty Start Date End Date Maine Dunn PA PCP - General 04/08/14 02/13/15 documented as of this encounter
--- OUTSIDE RECORDS SUMMARY | 2023-10-28 00:49 | XMS_ITS | Encounter Summary ---
Author Organization [facility] [place] [address] Care Team Providers Care Soft Mud Molder Name Role Phone Maine Dunn Primary Care Provider [phone] Encounter Details Date Type Department Care Team (Late st Contact Info) Description 04/11/2014 Telephone Hematology [place] [phone] Yuliet Chavez RN Social History Tobacco Use Types Packs/Day Years Used Date Smoking Tobacco: Never Sex and Gender Information Value Date Recorded Sex Assigned at Not on file Gender Identity Not on file Sexual Orientation Not on file documented as of this encounter Miscellaneous Notes * Telephone Encounter - Yuliet Chavez RN - 04/11/2014 2:38 PM EST E1412 Randomized Phase II Open Label Study of Lenalidomide R-CHOP (R2CHOP) vs RCHOP (Rituximab, Cyclophosphamide, Doxorubicin, Vincristine and Prednisone) in Patients with Newly Diagnosed Diffuse Large B Cell Lymphoma Called patient and informed her that she has been randomized to Arm B (R-CHOP) of Study # 1412. She questioned whether she should continue in the study since she will not be receiving lenalidomide, but after some discussion and thought she agreed to continue in this study. She will come to [facility] for C1 D1 tomorrow, 04/12/14. documented in this encounter Plan of Treatment Upcoming Encounters Date Type Department Care Team (Late st Contact Info) Description 12/07/2023 12:00 PM EDT Office Visit Dermatology at [facility] [address] [place] [address] Juan F Chappell MD [facility] DR RANDEE [place] [address] documented as of this encounter Visit Diagnoses Not on filedocumented in this encounter Care Teams Soft Mud Molder Relationship Specialty Start Date End Date Maine Dunn PA PCP - General 04/08/14 02/13/15 documented as of this encounter
--- OUTSIDE RECORDS SUMMARY | 2023-10-28 00:49 | XMS_ITS | Encounter Summary ---
Author Organization [facility] [place] [address] Care Team Providers Care Coating Technician Name Role Phone Maine Dunn Primary Care Provider [phone] Reason for Visit * Reason Onset Date Comments Research 05/23/2014 Encounter Details Date Type Department Care Team (Late st Contact Info) Description 05/23/2014 Telephone Hematology Oncology at [address] [address] Yuliet Chavez RN Research Social History Tobacco Use Types Packs/Day Years Used Date Smoking Tobacco: Never Sex and Gender Information Value Date Recorded Sex Assigned at Not on file Gender Identity Not on file Sexual Orientation Not on file documented as of this encounter Miscellaneous Notes * Telephone Encounter - Yuliet Chavez RN - 05/23/2014 10:29 AM EDT Called and spoke with Myriam at her home. She is feeling quite wel,although she is fatigued. She denies constipation and reports that her bowels are moving well this morning saying, They're just flying out of me after taking those meds. - referring to Colace, Senekot and Miralax. She will adjust dosage as needed. She said she found 2 empty prednisone bottles at home; one dated 04/25 and the other 05/12. She said she had already put the prednisone from 05/12 in her daily medication box. She read the label from that bottle to me confirming that the drug dispensed was prednisone 20 mg tabs, take 8 1/2 tablets once daily for 4 days. She will begin taking the prednisone today. She agrees to bring both empty bottles to her visit on 06/12/14. She agrees to e-mail or call me with any questions or changes in condition. documented in this encounter Plan of Treatment Upcoming Encounters Date Type Department Care Team (Late st Contact Info) Description 12/07/2023 12:00 PM EDT Office Visit Dermatology at [address] [place] [address] Juan F Chappell MD [facility] DR [place] [address] documented as of this encounter Visit Diagnoses Not on filedocumented in this encounter Care Teams Coating Technician Relationship Specialty Start Date End Date Maine Dunn PA PCP - General 04/08/14 02/13/15 documented as of this encounter
--- OUTSIDE RECORDS SUMMARY | 2023-10-28 00:49 | XMS_ITS | Encounter Summary ---
Author Organization [facility] Address [facility] [place] [address] Care Team Providers Care Cloud Subject Matter Expert Name Role Phone Maine Dunn Primary Care Provider [phone] Encounter Details Date Type Department Care Team (Late st Contact Info) Description 04/16/2014 Telephone Hematology [place] [phone] Kimberly Burnett APRN [facility] HEM[place] [address] Social History Tobacco Use Types Packs/Day Years Used Date Smoking Tobacco: Never Sex and Gender Information Value Date Recorded Sex Assigned at Not on file Gender Identity Not on file Sexual Orientation Not on file documented as of this encounter Miscellaneous Notes * Telephone Encounter - Erika Workman RN - 04/16/2014 9:59 AM EST RESEARCH NURSE TELEPHONE NOTE E1412: Randomized Phase II Open Label Study of Lenalidomide R-CHOP (R2CHOP) vs RCHOP (Rituximab, Cyclophosphamide, Doxorubicin, Vincristine and Prednisone) in Patients with Newly Diagnosed Diffuse Large B Cell Lymphoma Date: 04/16/2014 Time: 9:59 AM Study Day: C1D5 Reason for call: Symptom management (home) Received message from typing secretary that patient had called with questions regarding symptom management. Return call placed to Myriam, who stated that she noticed mouth sores as of last night when she atesome cucumbers with balsamic vinegar. Endorses mild dysgeusia, as well as some blisters in her mouth. Denies any severe pain. In regards to previously-reported insomnia, Myriam reports that she took1 mg Ativan last evening and slept better. Awoke once, but was able to get back to sleep without marked difficulty. Education Provided: Discussed that mouth sores are a very common side effect of chemotherapy, but that they generally improve with frequent rinsing. Advised that she may use salt water or baking soda/water mixture per the Symptoms and Self-Management section of the It's All About You booklet. Encouraged Myriam to rinse mouth with mixture at least 4 times daily and call this office if mouth sores are not improving or worsening over the next few days. Plan: 1. Pt will continue on study E1412 per protocol. 2. Next visit to be scheduled per protocol. Patient verbalizes understanding of, and agreement with, plan. Advised to contact this office for any questions/concerns, as well as for any new or worsening symptoms. documented in this encounter Plan of Treatment Upcoming Encounters Date Type Department Care Team (Late st Contact Info) Description 12/07/2023 12:00 PM EDT Office Visit Dermatology at [facility] [address] [facility] [place] [address] Juan F Chappell MD [facility] DR RANDEE [place] [address] documented as of this encounter Visit Diagnoses Not on filedocumented in this encounter Care Teams Cloud Subject Matter Expert Relationship Specialty Start Date End Date Maine Dunn PA PCP - General 04/08/14 02/13/15 documented as of this encounter
--- OUTSIDE RECORDS SUMMARY | 2023-10-28 00:49 | XMS_ITS | Encounter Summary ---
Author Organization [facility] Address [facility] [place] [address] Care Team Providers Care Prep Person Name Role Phone Maine Dunn Primary Care Provider [phone] Encounter Details Date Type Department Care Team (Late st Contact Info) Description 04/23/2014 7:36 AM EDT - 04/23/2014 11:59 PM EDT Hospital Encounter [place] [address] CLINIC, Kimberly Hanson MD [facility] [place] [address] Discharge Disposition: Home Social History Tobacco Use Types Packs/Day Years Used Date Smoking Tobacco: Never Sex and Gender Information Value Date Recorded Sex Assigned at Not on file Gender Identity Not on file Sexual Orientation Not on file documented as of this encounter Medications at Time of Discharge Medication Sig Dispensed Refills Start Date End Date acyclovir (ZOVIRAX) 400 mg Tablet Take 1 tablet by mouth 2 times daily. 60 tablet 3 04/25/2014 08/07/2014 acyclovir (ZOVIRAX) 800 mg TabletIndications:Lymph vivien Take 1 tablet by mouth 4 times daily. 20 tablet 1 04/23/2014 05/01/2014 acetaminophen (TYLENOL) 500 mg Tablet Take 1,000 mg by mouth every 6 hours as needed. 10/11/2014 allopurinol (ZYLOPRIM) 300 mg TabletIndications:Lymph vivien Take [...] FIND 450 mg. Med Name: Tumeric 07/24/2014 Isom-3 Fatty Acids-Vitamin E (FISH OIL) 1,000 mg [...] [facility] [address] [place] [address] Juan F Chappell MD [facility] DR RANDE[place] [address] documented as of this encounter Visit Diagnoses Not on filedocumented in this encounter Care Teams Prep Person Relationship Specialty Start Date End Date Maine Dunn PA PCP - General 04/08/14 02/13/15 documented as of this encounter
--- OUTSIDE RECORDS SUMMARY | 2023-10-28 00:49 | XMS_ITS | Encounter Summary ---
Author Organization [facility] Address [facility] [place] [address] Care Team Providers Care Canvas Goods Maker Name Role Phone Maine Dunn Primary Care Provider [phone] Reason for Visit * Reason Onset Date Comments Rash 05/31/2014 Encounter Details Date Type Department Care Team (Late st Contact Info) Description 05/31/2014 Telephone Hematology Oncology at [address] [address] Yuliet Chavez RN Rash Social History Tobacco Use Types Packs/Day Years Used Date Smoking Tobacco: Never Sex and Gender Information Value Date Recorded Sex Assigned at Not on file Gender Identity Not on file Sexual Orientation Not on file documented as of this encounter Miscellaneous Notes * Telephone Encounter - Yuliet Chavez RN - 05/31/2014 8:33 AM EDT RESEARCH NURSE TELEPHONE NOTE E1412: Randomized Phase II Open Label Study of Lenalidomide R-CHOP (R2CHOP) vs RCHOP (Rituximab, Cyclophosphamide, Doxorubicin, Vincristine and Prednisone) in Patients with Newly Diagnosed Diffuse Large B Cell Lymphoma Date: 05/31/2014 Time: 8:30 AM Reason for call: Received following email from patient written on 05/31/2014 at 7:16 AM: JUst filling you in on symptoms. This after effect has been horrible but finally figured how to use the nausea meds to balance ,which is helping a lot...and I sleep a lot and got one new bumpy,rash thing on my stomach. I am eating better again.....some constipation but slowly getting that under con trol..........Assuming this week will be better before chemo again. Myriam you noticed one on my back last time I saw you..so probably never went totally away Pt Home Spoke with patient who stated, It's just one little blistery itchy thing, it's really not a rash. Just like what I had before. I noticed it 2 days ago because it was itchy. She said spot is dry now and appears to be in one of the original spots. Myriam said she doesn't think the original rash ever went away completely. Denies temp elevation. She verified that she continues to take Acyclovir 400 mg BID. AE/SIDE EFFECT MONITORING # AE Grade CTCAE [...] left thumb 1 05/19/14 Generic antibiotic ointment Education Provided: Encouraged patient to take antiemetics prior to next infusion and to take time to rest and take care of herself. Plan: 1. Pt agrees to continue on study E1412 per protocol. Next study visit 06/10/2014 for PET/CT and labs in [place]. 2. Continue taking prophylactic Acyclovir as ordered. Discussed with Dr. Mondragon who said follow-up appt is not needed at this time. Pt understands and agrees with plan and knows she can call the clinic with any further questions orconcerns. documented in this encounter Plan of Treatment Upcoming Encounters Date Type Department Care Team (Late st Contact Info) Description 12/07/2023 12:00 PM EDT Office Visit Dermatology at [facility] [address] [place] [address] Juan F Chappell MD [facility] [address] [place] [address] documented as of this encounter Visit Diagnoses Not on filedocumented in this encounter Care Teams Canvas Goods Maker Relationship Specialty Start Date End Date Maine Dunn PA PCP - General 04/08/14 02/13/15 documented as of this encounter
--- OUTSIDE RECORDS SUMMARY | 2023-10-28 00:49 | XMS_ITS | Encounter Summary ---
Author Organization Count Includes [facility] Address [facility] [place] [address] Care Team Providers Care Roller Coaster Designer Name Role Phone Maine Dunn Primary Care Provider [phone] Encounter Details Date Type Department Care Team (Late st Contact Info) Description 04/11/2014 Orders Only Hematology [place] [address] Yuliet Chavez, LINDA Examination of participant in clinical trial Social [...] 12:00 PM EDT Office Visit Dermatology at [address] [place] [address] Juan F Chappell MD [facility] DR RANDE[place] [address] documented as of this encounter Visit Diagnoses Diagnosis Examination of participant in clinical trial documented in this encounter Care Teams Roller Coaster Designer Relationship Specialty Start Date End Date Maine Dunn PA PCP - General 04/08/14 02/13/15 documented as of this encounter
--- OUTSIDE RECORDS SUMMARY | 2023-10-28 00:49 | XMS_ITS | Encounter Summary ---
Author Organization [facility] Address [facility] [place] [address] Care Team Providers Care Coagulating Operator Name Role Phone Maine Dunn Primary Care Provider [phone] Encounter Details Date Type Department Care Team (Late st Contact Info) Description 04/11/2014 Orders Only [place]ology [place] [address] Erika Workman, RN Lymphoma Social History Tobacco Use Types [...] [facility] [address] [place] [address] Juan F Chappell MD [facility] DR RANDEE TINOC[place] [address] documented as of this encounter Visit Diagnoses Diagnosis Lymphoma Other malignant lymphomas, unspecified site, extranodal and solid organ sites documented in this encounter Care Teams Coagulating Operator Relationship Specialty Start Date End Date Maine Dunn PA PCP - General 04/08/14 02/13/15 documented as of this encounter
--- OUTSIDE RECORDS SUMMARY | 2023-10-28 00:49 | XMS_ITS | Encounter Summary ---
Author Organization [facility] [place] [address] Care Team Providers Care Bleach Liquor Maker Name Role Phone Maine Dunn Primary Care Provider [phone] Encounter Details Date Type Department Care Team (Late st Contact Info) Description 05/01/2014 Notes Only Hematology [place] [phone] Yuliet Chavez RN Social History Tobacco Use Types Packs/Day Years Used Date Smoking Tobacco: Never Sex and Gender Information Value Date Recorded Sex Assigned at Not on file Gender Identity Not on file Sexual Orientation Not on file documented as of this encounter Progress Notes * Yuliet Chavez RN - 05/01/2014 4:01 PM EDT RESEARCH NURSE OFFICE NOTE CYCLE #2 DAY #1 E1412 Randomized Phase II Open Label Study of Lenalidomide R-CHOP (R2CHOP) vs RCHOP (Rituximab, Cyclophosphamide, Doxorubicin, Vincristine and Prednisone) in Patients with Newly Diagnosed Diffuse Large B Cell Lymphoma Arm B: RCHOP repeat every 3 weeks for total of 6 cycles SUBJECTIVE Patient here for C2D1 R-CHOP accompanied by daughter. Assessed by Dr. Mondragon, please see her note. Myriam reports feeling mildly fatigued at times. She has been taking Ativan 1.0 before bed and is sleeping better at night. She is beginning to lose her hair. She is eating well, I've actually gainedsome weight. She is attempting to drink 64 oz of clear liquids each day but is finding it difficult. She is rinsing her mouth daily with baking soda/water and says he mouth feels good. A small spot of mucositis is noted on the right side of her inner cheek. The sore on the inside of her lower lip is gone. Her bowels are moving regularly. She continues to have spots of rash on her torso and is now taking Acyclovir 400 mg BID. STUDY ASSESSMENTS COMPLETED Labs AE Con meds PE with VS AE/SIDE EFFECT MONITORING # AE Grade Start date Stop Date Serious PRICILA Study Related Action Outcome 1 mucocitis 1 04/15/14 ongoing no Baking soda and water rinses 2 insomnia 2 04/15/14 ongoing no Increase Ativan to 1.0 mg at bedtime 3 Bleeding hemorrhoids 1 04/19/14 ongoing no Tucks, generic Preparation-H Smooth Move tea, 4 constipation 1 04/21/14 ongoing no Colace, fiber pills, increased fluid intake 5 rash 1 04/20/14 no Acyclovir po QID 6 Night sweats 1 04/20/14 04/23/14 no none 7 Tingling in legs and feet 1 04/24/14 04/25/14 no none 8 Sinus pressure 1 04/23/14 ongoing no Tylenol Sinus PRN CHEMOTHERAPY ?? I verified that the dose ordered is consistent with treatment plan per protocol. Dose calculation doubled-checked. Pt BSA = 1.71 x dose/m2 = Prednisone 100 mg/m2, total [...] concerns. Continue using baking soda/water rinses daily. Continue using treatments for constipation r/t chemo pre-medication. PLAN Patient is scheduled to receive Neulasta injection on May 03, 2014, in [place], [place] She is scheduled to see Arminda Drew audio narrator on May 10, 2014 in [place], [place] She is scheduled for C3D1 on May 22, 2014, in [place] She agrees to continue participation in study E1412 documented in this encounter Plan of Treatment Upcoming Encounters Date Type Department Care Team (Late st Contact Info) Description 12/07/2023 12:00 PM EDT Office Visit Dermatology at [place] [address] [place] [address] Juan F Chappell MD [facility] DR [place] [address] documented as of this encounter Visit Diagnoses Not on filedocumented in this encounter Care Teams Bleach Liquor Maker Relationship Specialty Start Date End Date Maine Dunn PA PCP - General 04/08/14 02/13/15 documented as of this encounter
--- OUTSIDE RECORDS SUMMARY | 2023-10-28 00:49 | XMS_ITS | Encounter Summary ---
Author Organization [facility] [place] [address] Care Team Providers Care Neurology Professor Name Role Phone Maine Dunn Primary Care Provider [phone] Reason for Visit * Reason Comments Follow-up Encounter Details Date Type Department Care Team (Late st Contact Info) Description 04/12/2014 9:30 AM EST Ancillary Appointment Hematology [place] [phone] Social History Tobacco Use Types Packs/Day Years Used Date Smoking Tobacco: Never Sex and Gender Information Value Date Recorded Sex Assigned at Not on file Gender Identity Not on file Sexual Orientation Not on file documented as of this encounter Last Filed Vital Signs Vital Sign Reading Time Taken Comments Blood Pressure 120/75 04/12/2014 9:30 AM EST Pulse 81 04/12/2014 9:30 AM EST Temperature 36.5 ??C (97.7 ??F) 04/12/2014 9:30 AM ES T Respiratory Rate 16 04/12/2014 9:30 AM EST Oxygen Saturation 100% 04/12/2014 9:30 AM EST Inhaled Oxygen Concentration - - Weight 67.5 kg (148 lb 13 oz) 04/12/2014 9:30 AM EST Height 158.9 cm (5' 2.56) 04/12/2014 9:30 AM ES T Body Mass Index 26.73 04/12/2014 9:30 AM EST documented in this encounter Progress Notes * Yuliet Chavez, RN - 04/12/2014 10:20 AM EST RESEARCH NURSE OFFICE NOTE CYCLE #1 DAY #1 E1412 Randomized Phase II Open Label Study of Lenalidomide R-CHOP (R2CHOP) vs RCHOP (Rituximab, Cyclophosphamide, Doxorubicin, Vincristine and Prednisone) in Patients with Newly Diagnosed Diffuse Large B Cell Lymphoma Cycle 1, Day 1 Arm B: RCHOP repeat every 3 weeks for total of 6 cycles SUBJECTIVE Pt presented to hem-onc clinic accompanied by sister and [id number] for day 1 of cycle # 1 of R-CHOP as per protocol. Pt was evaluated yesterday (04/11/2014) by Dr. Mondragon, please see her note. Verified that Myriam took Allopurinol this morning and applied EMLA cream to port access area on the drive to [facility]. Reviewed plan of the day emphasizing that patient should report any changes to her nurse while in the infusion suite and this nurse when at home. Business card given. STUDY ASSESSMENTS COMPLETED ??? Labs from 04/11/2014 ??? Study lab kit drawn today prior to treatment ??? ECOG performance status and vital signs ??? Physical exam from 04/11/2014 ??? AE assessment CHEMOTHERAPY ??? I verified that the dose ordered is consistent with treatment plan per protocol. Dose calculation doubled-checked. Pt BSA = 1.73 x dose/m2 = Prednisone 100 mg/m2, total dose ordered: 170 mg po once on day 1 ??? Rituxan 375 mg/m2, total dose ordered: 650 mg IV once on day 1 ??? Doxorubicin 50 mg/m2, total dose ordered: 85 mg IV once on day 1 ??? Vincristine 1.4 mg/m2 (max 2 mg), total dose ordered: 2 mg IV once on day 1 ??? Cyclophosphamide 750mg/m2 total dose ordered: 1300 mg IV once on day 1 AE/SIDE EFFECT MONITORING # AE Grade Start date Stop Date Serious PRICILA Study Related Action Outcome 1 EDUCATION PROVIDED Reviewed with patient that she should call with any new or worsening symptoms. Reviewed prednisone dosing (170 mg po = 8.5 20 mg tablets per day for the next 4 days) and use of calendar; calendar given to patient with today's dose of 170 mg entered. PLAN Pt agrees to continue on study E1412 per protocol. She is scheduled for Pegfilgrastim 6 mg sc injection on April 15, 2014, in [facility]. Next study visit to be scheduled for May 01 at [facility] for Cycle 2 of Chemotherapy. Advised to contact us if fever > 100.4 F, shortness of breath, new pain, weakness, bleeding, or any other unusual symptoms occur. documented in this encounter Plan of Treatment Upcoming Encounters Date Type Department Care Team (Late st Contact Info) Description 12/07/2023 12:00 PM EDT Office Visit Dermatology at [facility] [address] [place] [address] Juan F Chappell MD [facility] [address] [place] [address] documented as of this encounter Visit Diagnoses Not on filedocumented in this encounter Care Teams Neurology Professor Relationship Specialty Start Date End Date Maine Dunn PA PCP - General 04/08/14 02/13/15 documented as of this encounter
--- OUTSIDE RECORDS SUMMARY | 2023-10-28 00:49 | XMS_ITS | Encounter Summary ---
Author Organization [facility] Address [facility] [place] [address] Care Team Providers Care Surgical Specialist Name Role Phone Maine Dunn Primary Care Provider [phone] Encounter Details Date Type Department Care Team (Late st Contact Info) Description 05/08/2014 12:30 PM EDT Follow-Up Hematology Oncology at [address] [phone] Kimberly Mondragon MD [facility] [address] [place] [address] DLBCL (diffuse large B cell lymphoma) Discharge Disposition: Home Social History Tobacco Use Types Packs/Day Years Used Date Smoking Tobacco: Never Sex and Gender Information Value Date Recorded Sex Assigned at Not on file Gender Identity Not on file Sexual Orientation Not on file documented as of this encounter Last Filed Vital Signs Vital Sign Reading Time Taken Comments Blood Pressure 102/60 05/08/2014 12:22 PM EDT Pulse 96 05/08/2014 12:22 PM EDT Temperature 37.1 ??C (98.8 ??F) 05/08/2014 12:22 PM E DT Respiratory Rate 16 05/08/2014 12:22 PM EDT Oxygen Saturation 96% 05/08/2014 12:22 PM EDT Inhaled Oxygen Concentration - - Weight 66.5 kg (146 lb 8 oz) 05/08/2014 12:22 PM EDT Height 158.9 cm (5' 2.56) 05/08/2014 12:22 PM E DT Body Mass Index 26.32 05/08/2014 12:22 PM EDT documented in this encounter Progress Notes * Kimberly Mondragon MD - 05/08/2014 12:43 PM EDT . Hematology [place] [address] FOLLOW-UP PATIENT EVALUATION PROBLEM LIST: Patient Active [...] pretty well with C#2 RCHOP on protocol. I think i did really well with treatment this time head fog for 2 days. Some cramping yesterday. She did More exercises with relieve. + constipation - using colace , Senna, smooth tea. No neuropathy, no nausea. Today we discussed strategies for managing the constipation. Took her prednisone as ordered. Not drinking enough and she feels like she cannot get more in. ROS Energy level:improving Pain: No Appetite:eating well [...] Outpatient Prescriptions Marked as Taking for the 05/08/14 encounter (Follow-Up) with Kimberly Mondragon MD Medication Sig Dispense Refill ??? docusate sodium (COLACE) 100 mg Capsule [...] UNABLE TO FIND Med Name: Tumeric ??? Minto-3 Fatty Acids-Vitamin E (FISH OIL) 1,000 mg Capsule Take by mouth. ??? Calcium 500 mg Tablet Take by mouth. ??? Cholecalciferol, Vitamin D3, (VITAMIN D-3) 2,000 unit Capsule Take 1,000 Units by mouth. ??? escitalopram (LEXAPRO) 10 mg tablet Allergies: Allergies Allergen Reactions ??? Tegaderm [Transparent Dressings] Other (See Comments) Unsure if actual allergy, please try [id number] Skin tears/rawness INTERIM SOCIAL HISTORY Changes in job, home situation, tobacco or alcohol use: Working 8-15 hours per week PHYSICAL EXAM BP 102/60 Pulse 96 Temp(Src) 37.1 ??C (98.8 ??F) (Oral) Resp 16 Ht 158.9 cm (5' 2.56) Wt66.452 kg (146 lb 8 oz) BMI 26.32 kg/m2 SpO2 96% Body surface area is 1.71 meters squared. [...] (from the past 72 hour(s)). Labs from [facility] dated 05/08/14 Wbc 2.45 hgb 10.1 plt 199 ANC 1.57 Creat 0.6 ldh 200 normal LFT normal RADIOLOGY STUDIES REVIEWED: none ASSESSMENT/PLAN: Myriam is here for f/u appt after C#2 RCHOP on protocol. She did relatively well with C#2. I reviewed all of her side effects (see HPI) and management of these. Research RN reinforced this as well. Today we primaily dis Heme - will support with neulasta again. Constipation - see HPI - Sarah Galvez RN, had long discussion w/ her regarding symptom management while I was in the room Rash - occasional small individual lesions on abd- pruritic - do not look like zoster at all at this point. Unclear etiology but since it appeared vesicular like shingles - we have kept her on ACV 400 bid ongoing and will plan to continue through end of treatmetn just as a precaution. Sleep - using ativan 1mg qhs. Script renewed Anxiety - significantly improved - rare use of ativan during the day - mostly when she has to do work. Feels anxious when she is on pred and ativan helps with that as well. She gets anxious when plans change or she feels like things are not in control The therapist is helping her. Mireilleadamaris seems to besupportive and able to help her. total time: time in counselling: Copy SOPHY FUNES documented in this encounter Plan of Treatment Upcoming Encounters Date Type Department Care Team (Late st Contact Info) Description 12/07/2023 12:00 PM EDT Office Visit Dermatology at [facility] [address] [place] [address] Juan F Chappell MD [facility] [address] [address] documented as of this encounter Visit Diagnoses Diagnosis DLBCL (diffuse large B cell lymphoma) Other malignant lymphomas, unspecified site, extranodal and solid organ sites documented in this encounter Care Teams Surgical Specialist Relationship Specialty Start Date End Date Maine Dunn PA PCP - General 04/08/14 02/13/15 documented as of this encounter
--- OUTSIDE RECORDS SUMMARY | 2023-10-28 00:49 | XMS_ITS | Encounter Summary ---
[place] [address] Care Team Providers Care Rrt Name Role Phone Maine Dunn Primary Care Provider [phone] Reason for Visit * Reason Onset Date Comments Disability Paperwork 04/11/2014 FMLA paperw ork received Encounter Details Date Type Department Care Team (Late st Contact Info) Description 04/11/2014 Telephone [place]ology [place] [phone] Arminda Hernández RN Disability Paperwork (FMLA paperwork received) Social History Tobacco Use Types Packs/Day Years Used Date Smoking Tobacco: Never Sex and Gender Information Value Date Recorded Sex Assigned at Not on file Gender Identity Not on file Sexual Orientation Not on file documented as of this encounter Miscellaneous Notes * Telephone Encounter - Luz Holman LNA - 05/06/2014 3:46 PM EDT Completed disability paperwork, obtained signature and fax to [facility] ([phone]) narendra Collado * Telephone Encounter - Arminda Hernández RN - 04/11/2014 11:11 AM EST RN received FMLA paperwork from patient today. Paperwork given to SOPHY Kamara and Disability Paperwork Coordinator, on 04-11-14 with request for completion. RN will continue to follow. documented in this encounter Plan of Treatment Upcoming Encounters Date Type Department Care Team (Late st Contact Info) Description 12/07/2023 12:00 PM EDT Office Visit Dermatology at [facility] [address] [place] [address] Jua nF Chappell MD [facility] [address] [place] [address] documented as of this encounter Visit Diagnoses Not on filedocumented in this encounter Care Teams Rrt Relationship Specialty Start Date End Date Maine Dunn PA PCP - General 04/08/14 02/13/15 documented as of this encounter
--- OUTSIDE RECORDS SUMMARY | 2023-10-28 00:50 | XMS_ITS | Encounter Summary ---
Author Organization [facility] Address [facility] [place] [address] Care Team Providers Care Pipe Inspector Name Role Phone Michelle Hall MD Primary Care Provider Encounter Details Date Type Department Care Team (Late st Contact Info) Description 02/16/2012 Ancillary Procedure [place] [address] Belén Griffin MD [address] [place] [address] [address] [place] [address] Social History Tobacco Use Types Packs/Day Years Used Date Smoking Tobacco: Never Assessed Sex and Gender Information Value Date Recorded Sex Assigned at Not on file Gender Identity Not on file Sexual Orientation Not on file documented as of this encounter Plan of Treatment Upcoming Encounters Date Type Department Care Team (Late st Contact Info) Description 12/07/2023 12:00 PM EDT Office Visit Dermatology at [facility] [address] [place] [phone] Juan F Chappell MD [facility] [address] [address] documented as of this encounter Procedures Procedure Name Priority Date/Time Associated Diagnosis Comments FILM LIBRARY STORAGE ONLY MAMMO Routine 02/16/2012 12:00 AM EST documented in this encounter Results * Film Library- Storage Only Mammo (02/16/2012 12:00 AM EST) Narrative RAD - 03/19/2021 12:50 PM EST This exam is auto-finalizing. It's purpose is for storage only. Belén Griffin MD [facility] FILM LIBRARY ORD ERABLES [place], [place] documented in this encounter Visit Diagnoses Not on filedocumented in this encounter Care Teams Pipe Inspector Relationship Specialty Start Date End Date Michelle Hall MD [address] [place] [address] PCP - General 01/06/10 03/18/14 documented as of this encounter
--- OUTSIDE RECORDS SUMMARY | 2023-10-28 00:50 | XMS_ITS | Encounter Summary ---
Author Organization [facility] Address [address] [place] [address] Care Team Providers Care Teaching Pastor Name Role Phone Unavailable Primary Care Provider Unavailabl e Encounter Details Date Type Department Care Team (Latest Contact Info) Description 03/08/2014 14:50 EST - 03/08/2014 23:59 EST Hospital Encounter [address] [address] Unknown, Provider, Discharge Disposition: Home or Self Care Social History Tobacco Use Types Packs/Day Years Used Date Smoking Tobacco: Never Assessed Sex and Gender Information Value Date Recorded Sex Assigned at Not on file Gender Identity Not on file Sexual Orientation Not on file documented as of this encounter Discharge Disposition Disposition Code Departure Means Destination Home or Self Assisted documented in this encounter Plan of Treatment Not on file documented as of this encounter Visit Diagnoses Not on filedocumented in this encounter
--- OUTSIDE RECORDS SUMMARY | 2023-10-28 00:50 | XMS_ITS | Encounter Summary ---
Author Organization [facility] Address [address] [place] [address] Care Team Providers Care Development Coordinator Name Role Phone Unavailable Primary Care Provider Unavailabl e Encounter Details Date Type Department Care Team (Late st Contact Info) Description 01/21/2014 Results Only [facility] Services - [facility] [address] [place] [id number] Johann Dunn PA Social History Tobacco Use Types Packs/Day Years Used Date Smoking Tobacco: Never Assessed Sex and Gender Information Value Date Recorded Sex Assigned at Not on file Gender Identity Not on file Sexual Orientation Not on file documented as of this encounter Plan of Treatment Not on file documented as of this encounter Procedures Procedure Name Priority Date/Time Associated Diagnosis Comments PAP TEST- RESULT ONLY Routine 01/21/2014 0:00 EST documented in this encounter Results * PAP TEST- RESULT ONLY (01/21/2014 0:00 EST) Pathology Report: CYTOPATHOLOGY REPORT Reports generated via electronic interface contain original data; however they are lacking the format of the original report. Caution should be taken when reading/interpreti ng unformatted reports. Name: ? ARTEMJONNYLUIS FERNANDO ? Accession #: ? [id number] ? : ? 1950 (Age: 63) ??F ?Collect Date: ? 01/21/2014 ? Location: ? [facility] ? Receive Date: ? 01/22/2014 ? Provider: JOHANN BECKETT Copy to: ? Final Report SPECIMEN ADEQUACY ? Satisfactory for Evaluation - transformation zone component present - scant squamous epithelial component secondary to excessive inflammation GENERAL CATEGORIZATION ? Negative for Intraepithelial Lesion or Malignancy ?? Menstrual/Pregnanc y Status: ??Post Menopausal Specimen/Source: ??Pap Test, Cervix/Endocervix, ThinPrep Imaging System with manual evaluation Document reviewed and electronically signed by: ? JOSSELIN Freedman(ASCP) ? Report ??Date: 01/28/2014 10:56 HPV with Pap Test ? Date Ordered: ? 01/28/2014 ? Status: ?? Signed Out ?Date Complete: ? 01/29/2014 ? By: ??System Interface ? Date Reported: ? 01/29/2014 ? Interpretation RESULT: Negative for HPV. No E6 or E7 mRNA is detected from HPV types 16,18,31,33,35, 39,45,51,52,56,58, 59,66, and 68 by part time mediated amplification. Comments Document reviewed and electronically signed by: ? System Interface ? Report date: 01/29/2014 By the signature above, the attending physician certifies that he/she has personally conducted a gross and/or microscopic examination of the described specimens and rendered or confirmed the above diagnosis. End of Report [facility] 01/21/2014 01/22/2014 Johann BECKETT PATHOLOGY ORDERABLES [facility] [address] [place] [address] documented in this encounter Visit Diagnoses Not on filedocumented in this encounter
--- OUTSIDE RECORDS SUMMARY | 2023-10-28 00:50 | XMS_ITS | Encounter Summary ---
Author Organization [facility] Address [address] [place] [address] Care Team Providers Care Global Upstream Marketing Manager Name Role Phone Mellissa Gonsales MD Primary Care Provide r Belén Griffin MD Primary Care Provider Encounter Details Date Type Department Care Team (Late st Contact Info) Description 06/26/2020 Lab Requisition [facility] Pathology & Laboratory Medicine - [facility] [address] [place] [address] Outr Resulting Lab, Provider Social History Tobacco Use Types Packs/Day Years Used Date Smoking Tobacco: Never Assessed Interpersonal Safety Answer Date Record ed Physically Hurt Never 06/22/2020 Verbally Threaten Not on file 06/22/2020 Sex and Gender Information Value Date Recorded Sex Assigned at Not on file Gender Identity Not on file Sexual Orientation Not on file documented as of this encounter Plan of Treatment Not on file documented as of this encounter Procedures Procedure Name Priority Date/Time Associated Diagnosis Comments ZZCOVID-19 TEST [facility] PCR Today 06/26/2020 9:59 EDT COVID-19 TESTING Routine 06/26/2020 9:59 EDT documented in this encounter Results * COVID-19 TEST [facility] PCR (06/26/2020 9:59 EDT) Swab ENTIRE NASOPHARYNX / Unknown 06/26/2020 9:59 EDT 06/26/2020 17:08 EDT Provider Outr Resulting Lab MICROBIOLOGY - GENERAL ORDERABLES [facility] [address] [place] [address] * COVID-19 TESTING (06/26/2020 9:59 EDT) COVID-19 rt-PCR Result Negative Negative 06/27/2020 15:48 EDT [facility] Performing Lab [facility] Lab 06/27/2020 15:48 EDT [facility] Swab 06/26/2020 9:59 EDT 06/26/2020 17:08 EDT Provider Outr Resulting Lab MICROBIOLOGY - GENERAL ORDERABLES Performing Organization Address City/[facility]/ZIP Co de Phone Number [facility] [address] [place] [address] documented in this encounter Visit Diagnoses Not on filedocumented in this encounter Care Teams Global Upstream Marketing Manager Relationship Specialty Start Date End Date Mellissa Gonsales MD [address] [place] [phone] PCP - General 03/11/14 07/14/20 Belén Griffin MD [address] [place] [address] [address] [place] [phone] PCP - General 07/15/20 documented as of this encounter
--- OUTSIDE RECORDS SUMMARY | 2023-10-28 00:50 | XMS_ITS | Encounter Summary ---
Author Organization [facility] Address [address] [place] [address] Care Team Providers Care Operating Room Scheduler Name Role Phone Belén Griffin MD Primary Care Provider Encounter Details Date Type Department Care Team (Late st Contact Info) Description 08/05/2020 Lab Requisition [facility] Pathology & Laboratory Medicine - [address] [address] Outr Resulting Lab, Provider Social History Tobacco [...] Comments ZZCOVID-19 TEST [facility] PCR Today 08/05/2020 8:25 EDT COVID-19 TESTING Routine 08/05/2020 8:25 EDT documented in this encounter Results * COVID-19 TEST [facility] PCR (08/05/2020 8:25 EDT) Swab ENTIRE NASOPHARYNX / Unknown 08/05/2020 8:25 EDT 08/05/2020 15:33 EDT Provider Outr Resulting Lab MICROBIOLOGY - GENERAL ORDERABLES Performing Organization Address City/State/[facility] Co de Phone Number [facility] [address] [place] [address] * COVID-19 TESTING (08/05/2020 8:25 EDT) COVID-19 rt-PCR Result Negative Negative 08/06/2020 14:17 EDT [facility] Comment: This test has not been FDA cleared or approved. This test has been authorized by FDA under an EUA for use by authorized laboratories. This test has been authorized only for detection of nucleic acid from 2019-nCoV, not for any other viruses or pathogens. This test is only authorized for the duration of the declaration that circumstances exist justifying the authorization of emergency use of in vitro diagnostic tests for detection and/or diagnosis of 2019-nCoV under section 564(b)(1) of Act, 21 U.S.C ?? 360bbb-3(b) (1), unless the authorization is terminated or revoked sooner. Negative results do not preclude 2019-nCoV infection and should not be used as the sole basis for treatment or other patient management decisions. Negative results must be combined with clinical observations, patient history, and epidemiological information. This test was developed and its performance characteristics determined by [facility]. It has not been cleared or approved by the US Food and Drug Administration. FDA does not require this test to go through premarket FDA review. This test is used for clinical purposes. It should not be regarded as investigational or for research. This laboratory is certified under the Clinical Laboratory Improvement Amendments (CLIA) as qualified to perform high complexity clinical laboratory testing. This test is based on the [facility] COVID-19 Emergency Use Authorization (EUA) assay, with minor modification as defined by the FDA Performed on the [employer] 7 Flex RT-PCR System. Performing Lab [facility] Lab 08/06/2020 14:17 EDT [facility] Swab 08/05/2020 8:25 EDT 08/05/2020 15:33 EDT Provider Outr Resulting Lab MICROBIOLOGY - GENERAL ORDERABLES Performing Organization Address City/[facility] Co de Phone Number [facility] [address] [place] [address] documented in this encounter Visit Diagnoses Not on filedocumented in this encounter Care Teams Operating Room Scheduler Relationship Specialty Start Date End Date Belén Griffin MD [address] [place] [address] PCP - General 07/15/20 documented as of this encounter
--- OUTSIDE RECORDS SUMMARY | 2023-10-28 00:50 | XMS_ITS | Encounter Summary ---
Author Organization Count Includes [facility] Address [facility] [place] [address] Care Team Providers Care Starchmaker Name Role Phone Michelle Hall MD Primary Care Provider [phone] Encounter Details Date Type Department Care Team (Late st Contact Info) Description 02/18/2014 Orders Only Hematology Oncology at [address] [phone] Sal Ward MD [address] [place] [phone] [phone] Social History Tobacco Use Types Packs/Day Years [...] [facility] [address] [place] [address] Juan F Chappell MD [facility] DR RANDEE [place] [address] documented as of this encounter Procedures Procedure Name Priority Date/Time Associated Diagnosis Comments FILM LIBRARY STORAGE ONLY MAMMO Routine 02/18/2014 1:50 PM EST documented in this encounter Results * Film Library- Storage only Mammo (02/18/2014 1:50 PM EST) Anatomical Region Laterality Modality Other 02/18/2014 1:50 PM EST Narrative 03/18/2014 2:04 PM EST This is a Non-reportable exam Procedure Note AMANDA, UNSIGNED REPORT - 03/18/2014 This is a Non-reportable exam Sal Ward MD IMG FILM LIBRARY ORD ERABLES documented in this encounter Visit Diagnoses Not on filedocumented in this encounter Care Teams Starchmaker Relationship Specialty Start Date End Date Michelle Hall MD [address] [place] [address] PCP - General 01/06/10 03/18/14 documented as of this encounter
--- OUTSIDE RECORDS SUMMARY | 2023-10-28 00:50 | XMS_ITS | Encounter Summary ---
Author Organization [facility] Address [address] [place] [address] Care Team Providers Care Pediatric Psychiatrist Name Role Phone Belén Griffin MD Primary Care Provider Encounter Details Date Type Department Care Team (Late st Contact Info) Description 07/16/2020 Lab Requisition [facility] Pathology & Laboratory Medicine - [address] [address] Outr Resulting Lab, Provider Social History Tobacco [...] Comments ZZCOVID-19 TEST [facility] PCR Today 07/16/2020 8:29 EDT COVID-19 TESTING Routine 07/16/2020 8:29 EDT documented in this encounter Results * COVID-19 TEST [facility] PCR (07/16/2020 8:29 EDT) Swab ENTIRE NASOPHARYNX / Unknown 07/16/2020 8:29 EDT 07/16/2020 15:50 EDT Provider Outr Resulting Lab MICROBIOLOGY - GENERAL ORDERABLES Performing Organization Address City/State/[facility] [[email or web address]] Co de Phone Number [facility] [address] [place] [address] * COVID-19 TESTING (07/16/2020 8:29 EDT) COVID-19 rt-PCR Result Negative Negative 07/17/2020 13:26 EDT [facility] Comment: This test has not [...] developed and its performance characteristics determined by [employer]. It has not been cleared or approved [...] testing. This test is based on the [facility] [place] COVID-19 Emergency Use Authorization (EUA) assay, with minor modification as defined by the FDA Performed on the Tech[employer] 7 Flex RT-PCR System. Performing Lab [facility] 07/17/2020 13:26 EDT [facility] Swab 07/16/2020 8:29 EDT 07/16/2020 15:50 EDT Provider Outr Resulting Lab MICROBIOLOGY - GENERAL ORDERABLES Performing Organization Address City/[facility] [[email or web address]] Co de Phone Number [facility] [address] [place] [address] documented in this encounter Visit Diagnoses Not on filedocumented in this encounter Care Teams Pediatric Psychiatrist Relationship Specialty Start Date End Date Belén Griffin MD [address] [place] [address] PCP - General 07/15/20 documented as of this encounter
--- OUTSIDE RECORDS SUMMARY | 2023-10-28 00:50 | XMS_ITS | Encounter Summary ---
Author Organization [facility] Address [address] [place] [address] Care Team Providers Care Commercial Real Estate Associate Name Role Phone Belén Griffin MD Primary Care Provider [phone] Reason for Visit * Reason Comments Basal Cell Carcinoma left lower eyelid * Consult (Routine) - Closed Specialty Diagnoses / Procedures Referred By Contnam t Referred To Contact Dermatology Diagnoses Infiltrative basal cell carcinoma (BCC) Dana Bateman MD [address] [place] [phone] [facility] [address] [place] [id number] Referral ID Status Reason Start Date Expiration Date Visits Re quested Visits Authorized [id number] Closed 1 1 Encounter Details Date Type Department Care Team (Late st Contact Info) Description 07/15/2020 7:45 EDT Office Visit [facility] Dermatology 5th [address] [phone] Juan C Mittal MD [address] [facility], [address] [place] [address] Basal cell carcinoma of left lower eyelid (Primary Dx) Social History Tobacco Use Types [...] Sign Reading Time Taken Comments Blood Pressure 134/74 07/15/2020 0734 EDT Pulse 76 07/15/2020 0734 EDT Temperature 36.6 ??C (97.9 ??F) 07/15/2020 0734 EDT Respiratory Rate - - Oxygen Saturation - - Inhaled Oxygen Concentration - - Weight - - Height - - Body Mass Index - - documented in this encounter Progress Notes * Juan C Mittal MD - 07/15/2020 0745 EDT Images from the original note were not included. MOHS SURGERY POST-OP SUMMARY Myriam Vivas is a 69 y.o. year old female who underwent Mohs surgery today 07/15/2020. The following is a summary of the operative findings: Lesion 1 Infiltrative basal cell carcinoma Location left and lower eyelid Size Preop (cm) 0.5 cm x 0.4 cm Size Postop (cm) 0.7 cm x 0.6 cm Stages 1 Depth of Excision full thickness Repair referral to oculoplastics (Dr. Bateman) Ms. Vivas was discharged from the operative suite in good condition. She was carefully instructedin postoperative wound care both verbally and in writing. The patient will follow up with Dr. Bateman and will return to see me as needed. Note: None ANGIE Pa MD 07/15/2020 13:56 MOHS EVALUATION NOTE Chief Complaint Patient presents with ??? Basal Cell Carcinoma left lower eyelid Subjective: Myriam Vivas is a 69 y.o. year old female who is referred to me for evaluation and treatment of a skin cancer by Dr. Bateman. The patient is referred to consider Mohs surgery versus other treatment options. The patient notes that this lesion has been present for approximately 2 months, and reports no symptoms. Risk factors: Pacemaker/ICD: none Anticoagulants: none Total joint replacements/valves: none Allergies: Patient has No Known Allergies. Immunosuppression: none Smoking status: non-smoker For full Medical, Surgical, Family, and Social histories as well as Review of Systems, Medications and Allergies please see those sections of this encounter in the electronic chart which I have personally reviewed. Objective: The following data was reviewed: external note(s) from referring provider, photograph, diagram and pathology report. Examination of the affected area revealed the following: ?? An approximately 0.5 cm x 0.4 cm pearly and pink, papule located on the left and lower eyelid. Pathology: SKIN OF EYELID, LEFT LOWER, SHAVE BIOPSY: - Basal cell carcinoma, infiltrative type, involving the biopsy base and peripheral edges. 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 Vivas and I discussed the meaning of the diagnosis of skin cancer and the options for treatment. Due to the need for a high cure rate and optimum functional and aesthetic outcome, I feel that Mohs surgery is indicated. The risks of Mohs surgery and potential reconstructive surgery, including:bleeding, infection, scarring, recurrence, injury to functionally or cosmetically important nerve structures and an unsatisfactory cosmetic result were reviewed. Discussed with patient the increased risks of morbidity specific to the tumor type, tumor location and underlying patient characteristicsinclude: numbness, injury to the lacrimal duct or punctum and ectropion. The patient was given an opportunity to ask questions, and I believe that all of her questions were answered satisfactorily. Ms. Vivas understands that following Mohs surgery an operative repair may be required and may involve substantial suturing. We have jointly planned to have Dr. Carrie Bateman repair the wound at the day of surgery if needed. She understands that it typically takes 4 to 6 months for wounds to heal beforea decision can be made about the final cosmetic result and that in some cases a revision may be necessary to optimize the outcome. I explained to Ms. Vivas that in addition to the risk of recurrence from her skin cancer she has an increased risk of developing additional new skin cancers elsewhere. For that reason, follow up for ongoing skin surveillance examinations, after surgery, will be imperative. The patient has been scheduled to undergo surgery today. Note: None Attestation statement: I saw and examined the patient with the resident / fellow. I agree with the findings and plan of care documented in the resident's / fellow's note. Juan C Mittal MD 07/15/2020 13:56 MOHS OPERATIVE REPORT Patient Name: Myriam Vivas Date of Service: July 15, 2020 Surgeon and Pathologist: Juan C Mittal MD Vamp Creaser: Edward Anaya MD and Marci Louis PA-C Case #: [id number] Mohs AUC Score: 8 (APPROPRIATE) Preoperative Diagnosis: Infiltrative basal cell carcinoma Preoperative Procedure: Mohs micrographic surgery Location of Lesion: left and lower eyelid Preoperative Lesion Size: 0.5 cm x 0.4 cm Preoperative Procedure: Mohs microscopically-controlled fresh tissue excision Indications: The patient presents with a skin cancer with high risk features for recurrence including: poorly defined clinical borders, infiltrative pathology and location on eyelid. Because of the histologic and clinical nature of the lesion, as well as its location, the need to achieve the highest cure rate while providing maximum tissue preservation warranted tumor extirpation via microscopically-controlled excision using the Mohs fresh tissue technique. Alternate therapeutic options were discussed prior to surgery. After informed consent was obtained and appropriate instruction was provided, the patient underwent tumor extirpation by the Mohs fresh tissue technique as follows: PROCEDURE - INITIAL STAGE: Patient position: supine Anesthesia: 1% lidocaine with epinephrine 1:100,000 local infiltration Prep: Povodine Iodine No data found. The patient was brought to the operative suite. The lesion was identified and was prepped in a sterile fashion. The area was infiltrated with lidocaine/epinephrine to achieve complete anesthesia and to augment hemostasis. The Mohs procedure was then carried out by Dr. Mittal as follows: An initial b eveled excision was performed through the epidermis and dermis with a #15 scalpel blade. A hash wascreated in the specimen and within the adjacent epidermis for marking purposes. The Mohs specimen was then excised in a sharp manner, and carefully placed in proper orientation on the surgical tray. H emostasis of the operative wound was obtained with careful spot electrocoagulation. A sterile non-adherent dressing was applied to the operative wound. The Mohs tissue specimen was carefully transferred to the lab where the tissue was divided, and color inked for orientation. These specimens were mapped and then handed personally by the doctor to the medication technician for frozen sectioning. The tissue was embedded so that the deep and surface margins layin the same plane, and sections were made through this plane. Once the slide preparation was complete Dr. Mittal performed histologic evaluation and interpretation of all sections. A summary of the findings may be found below. Stage 1 findings: Wound Depth Full thickness/muscle Sections Created 1 Number of Sections Containing Tumor 0 (INFILTRATIVE BASAL CELL CARCINOMA -- Irregularly shaped cords and strands of basaloid keratinocytes infiltrate the dermis with a spiky growth pattern. The cellshave scant cytoplasm and round dark nuclei. Mitotic figures and apoptotic bodies are evident. The nuclei at the periphery of the islands have a palisaded arrangement. The islands are associated with a fibromyxoid stroma and there is cleft formation between some of the islands and stroma. BCC WAS WITHIN DEEPER SECTIONS ONLY, FIRST SECTIONS REPRESENTING TRUE MARGIN APPEAR CLEAR OF TUMOR). ADDITIONAL STAGES: None With the patient clear of microscopic tumor, surgery was considered complete. The wound was REFFERED to Dr. Bateman for reconstruction. Please see their separate procedure note for details of the reconstruction. . Postoperative Wound Size: 0.7 cm x 0.6 cm Final Diagnosis: Infiltrative basal cell carcinoma Final Procedure: Mohs micrographic surgery Blood Loss: Minimal Operative Time: 30 minutes Complications: None Note: None Marci Louis PA-C I, Marci Louis PA-C am acting as a scribe for Juan C Mittal MD. I was present during all lora and critical portions of this procedure and remained immediately available throughout. I personally performed the lora elements of the procedure. Juan C Mittal MD 07/15/2020 13:58 documented in this encounter Plan of Treatment Not on file documented as of this encounter Procedures Procedure Name Priority Date/Time Associated Diagnosis Comments PROCEDURE REPORTS - SCANNED 07/30/2020 14:14 EDT documented in this encounter Results * PROCEDURE REPORTS - SCANNED (07/30/2020 14:14 EDT) 07/30/2020 14:1 4 EDT Scan 2 Heat Regulator PROCEDURE/MINOR VIKI GICAL ORDERABLES documented in this encounter Visit Diagnoses Diagnosis Basal cell carcinoma of left lower eyelid- Primary documented in this encounter Historical Medications * This list may reflect changes made after this encounter. Medication Sig Dispensed Refills Start Date End Date docosahexaenoic acid/epa (FISH OIL ORAL) Take by mouth. ergocalciferol, vitamin D2, (VITAMIN D ORAL) Take by mouth. escitalopram oxalate (LEXAPRO) 10 mg tablet Take 10 mg by mouth daily. LORazepam (ATIVAN) 0.5 mg tablet Take 0.5 mg by mouth every 4 hours as needed for Anxiety. 0.25 as needed added in this encounter Care Teams Commercial Real Estate Associate Relationship Specialty Start Date End Date Belén Griffin MD [address] [facility] [address] [address] [place] [phone] PCP - General 07/15/20 documented as of this encounter
--- OUTSIDE RECORDS SUMMARY | 2023-10-28 00:50 | XMS_ITS | Referral Summary ---
Author Organization [facility] Address [address] [place] [address] Care Team Providers Care Bridge Instructor Name Role Phone Belén Griffin MD Primary Care Provider Encounters Date Type Department Care Team Description 10/26/2023 Lab Requisition [facility] Pathology & Laboratory [address] [address] Outr Resulting Lab, Provider 10/21/2023 Lab Requisition [facility] Pathology & Laboratory [facility] [address] [place] [address] Outr Resulting Lab, Provider from Last 3 Months Allergies No known active allergies Medications Medication Sig Dispensed Refills Start Date End Date Status LORazepam (ATIVAN) 0.5 mg tablet Take 0.5 mg by mouth every 4 hours as needed for Anxiety. 0.25 as needed Active escitalopram oxalate (LEXAPRO) 10 mg tablet Take 10 mg by mouth daily. Active ergocalciferol, vitamin D2, (VITAMIN D ORAL) Take by mouth. Active docosahexaenoic acid/epa (FISH OIL ORAL) Take by mouth. Active Active Problems No known active problems Social History Tobacco Use Types Packs/Day Years [...] - - Body Mass Index - - Plan of Treatment Not on file Procedures Procedure Name Priority Date/Time Associated Diagnosis Comments DOUBLE STRANDED DNA ANTIBODY, IGG Routine 10/26/2023 15:02 EDT PLATING AND POINT ASSEMBLY SUPERVISOR ANTIBODY, IGG Routine 10/26/2023 15: 02 EDT SM (SWANSON) ANTIBODY, IGG Routine 10/26/2023 15:02 EDT SS-B (LA) ANTIBODY, IGG Routine 10/26/2023 15:02 EDT RHEUMATOID FACTOR Routine 10/21/2023 7:3 0 EDT ANTI NUCLEAR AB (MARYA), IFA Routine 10/21/2023 7:30 EDT from Last 3 Months Results * SS-B (LA) ANTIBODY, IGG (10/26/2023 15:02 EDT) SSB Antibody, IgG <3.3 <20.0 CU 024 16:52 EDT [facility] Comment:Results were obtaine d with the [employer] Flash SS-B chemiluminescent immunoassay. Values obtained with different manufacturers' assay methods must not be used interchangeably. Blood VENOUS BLOOD / Unknown 10/26/2023 15:02 EDT 10/26/2023 21:39 EDT Provider Outr Resulting Lab IMMUNOLOGY A ND SEROLOGY ORDERABLES [facility] [address] [place] [address] * SM (SWANSON) ANTIBODY, IGG (10/26/2023 15:02 EDT) SM (Swanson) Antibody, IgG <8.0 <20.0 CU 10/27/2023 16:52 EDT [facility] Comment:Results were obtaine d with the [employer] Flash Sm chemiluminescent immunoassay. Values obtained with different manufacturers' assay methods must not be used interchangeably. Blood VENOUS BLOOD / Unknown 10/26/2023 15:02 EDT 10/26/2023 21:39 EDT Provider Outr Resulting Lab IMMUNOLOGY A ND SEROLOGY ORDERABLES Performing Organization Address [facility] de Phone Number [facility] [address] [place] [address] * PLATING AND POINT ASSEMBLY SUPERVISOR ANTIBODY, IGG (10/26/2023 15:02 EDT) PLATING AND POINT ASSEMBLY SUPERVISOR Antibody, IgG <6.0 <20.0 CU 024 16:52 EDT [facility] Comment:Results were obtaine d with the [employer] Flash PLATING AND POINT ASSEMBLY SUPERVISOR chemilumenscent immunoassay. Values obtained with different manufacturers' assay methods may not be used interchangeably. Blood VENOUS BLOOD / Unknown 10/26/2023 15:02 EDT 10/26/2023 21:39 EDT Provider Outr Resulting Lab IMMUNOLOGY A ND SEROLOGY ORDERABLES Performing Organization Address [facility] de Phone Number [facility] [address] [place] [phone] * DOUBLE STRANDED DNA ANTIBODY, IGG (10/26/2023 15:02 EDT) dsDNA Ab, IgG <22.0 <27.0 IU/mL 10/27/2023 16:52 EDT [facility] Comment: Negative: <27.0 IU/mL Indeterminate: 27.0 - 35.0 IU/mL Positive: >35.0 IU/mL Results were obtained with [employer] Flash dsDNA chemiluminescent immunoassay. Values obtained with different manufacturers' assay methods may not be used interchangeably. Blood VENOUS BLOOD / Unknown 10/26/2023 15:02 EDT 10/26/2023 21:39 EDT Provider Outr Resulting Lab IMMUNOLOGY A ND SEROLOGY ORDERABLES Performing Organization Address [facility] Co de Phone Number [facility] [address] [place] [address] * RHEUMATOID FACTOR (10/21/2023 7:30 EDT) Rheumatoid Factor <8.6 <12.0 IU/mL 10/21/2023 18:11 EDT [facility] Blood VENOUS BLOOD / Unknown 10/21/2023 7:30 EDT 10/21/2023 17:52 EDT Provider Outr Resulting Lab CHEMISTRY & BLOOD GAS ORDERABLES Performing Organization Address [facility] de Phone Number [facility] [address] [place] [phone] * (ABNORMAL) ANTI NUCLEAR AB (MARYA), IFA (10/21/2023 7:30 EDT) MARYA Interpretation Positive(A) Negative 10/24/2023 13:35 EDT [facility] Comment: For titers greater than or equal to 1:160 (except the centromere and nucleolar patterns) it is recommended that specific follow-up autoantibody testing ??(such as for dsDNA and Extractable Nuclear Antigens) be performed on all diffuse and/or speckled patterns NOTE: For add-on testing dsDNA is stable for 7 days refrigerated while Extractable Nuclear Antigens are only stable for 48 hours refrigerated. MARYA Titer and Pattern 1 1:320 Dense Fine Speckled 10/24/2023 13:35 EDT [facility] Blood VENOUS BLOOD / Unknown 10/21/2023 7:30 EDT 10/21/2023 17:52 EDT Narrative [facility] - 10/24/2023 13:35 EDT Results were obtained with the [employer] NOVA Lite HEp-2 MARYA Kit by indirect immunofluorescence. Provider Outr Resulting Lab IMMUNOLOGY A ND SEROLOGY ORDERABLES [facility] [address] [place] [address] from Last 3 Months Care Teams Bridge Instructor Relationship Specialty Start Date End Date Belén Griffin MD [address] [place] [phone] PCP - General 07/15/20
--- OUTSIDE RECORDS SUMMARY | 2023-10-28 00:50 | XMS_ITS | Encounter Summary ---
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 Name Role Phone Dunia Calderon MD Primary Care Provider Reason for Visit * Reason Comments Advice Only Encounter Details Date Type Department Care Team (Late st Contact Info) Description 03/21/2014 9:00 AM EST Office Visit Hematology [place] [id number] Kimberly Mondragon MD [facility] [place] [address] Lymphoma Discharge Disposition: Home Social History Tobacco Use Types Packs/Day Years Used Date Smoking Tobacco: Never Sex and Gender Information Value Date Recorded Sex Assigned at Not on file Gender Identity Not on file Sexual Orientation Not on file documented as of this encounter Last Filed Vital Signs Vital Sign Reading Time Taken Comments Blood Pressure 142/68 03/21/2014 8:56 AM EST Pulse 87 03/21/2014 8:56 AM EST Temperature 37.2 ??C (99 ??F) 03/21/2014 8:56 AM EST Respiratory Rate 18 03/21/2014 8:56 AM EST Oxygen Saturation 100% 03/21/2014 8:56 AM EST Inhaled Oxygen Concentration - - Weight 65.5 kg (144 lb 6.4 oz) 03/21/2014 8:56 A M EST Height 159.2 cm (5' 2.68) 03/21/2014 8:56 AM ES T Body Mass Index 25.84 03/21/2014 8:56 AM EST documented in this encounter Progress Notes * Kimberly Mondragon MD - 03/21/2014 9:12 AM EST Hematology Clinic [facility] [place] [place] [address] NEW PATIENT EVALUATION PROBLEM LIST: Patient Active Problem List Diagnosis ??? 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 ??? Depression with anxiety HISTORY OF PRESENT ILLNESS: It was my pleasure to meet Myriam Vivas today. Myriam Vivas is a 63 y.o. year old female being seen for evaluation of newly diagnosed DLBCL. she is referred in consultaion from Dr Crandall. Itwas my pleasure to meet this pleasant 63-year-old female who is referred in consultation from Dr. Crandall is a new diagnosis of diffuse large B-cell lymphoma. She has previously very healthy. She noticed adenopathy in early February on the day she had her mammogram. She went for her annual mammogram at [facility] and at that time pointed out left axillary adenopathy to check. Mammogram confirmed the adenopathy and she was referred to Dr. Crandall for excisional biopsy. The biopsy confirms diffuse large B-cell lymphoma. CT of the chest revealed adenopathy in the left axilla, left supraclavicular area and mediastinum. Her review of systems is notable for dryness in her left ear and a chronic cough which never seems to go away. PMHX: Depression/anxiety with menopause ROS Energy level: naps after work- no change; possibly some stress fatique Pain: No Appetite:good Fevers/chills/sweats:No Bruising/bleeding/melena:No Recent infections:No Headaches:neg Vision:neg Hearing:neg Sinus: Sinus problems and headaches from time to time Seasonal Allergies: occasional Mouth sores:neg Dentition: Good - regular dental visits Swallowing: neg GERD : neg Nausea/vomiting: neg Diarrhea/constipation;; nervous Diarrhea SOB/HAUSER/pulmonary sx: Cough X 6 mos - dry - nonproductive chest pain:No sx: negative Change in adenopathy or other masses: palpable adenopathy in L neck and L axialla Unexpected weight loss or gain:No Skin rashes or petechiae:No Musculoskeletal complaints: toes cross Extremities: Negative upper and lower bilaterally Neurologic symptoms:No change in cognition or stroke like symptoms Mental Status changes: neg Mood: Anxiety with diagnosis Sleep: Difficulty sleeping relieved with tylenol PM MEDS: Outpatient Prescriptions Marked as Taking for the 03/21/14 encounter (Office Visit) with Kimberly Mondragon MD Medication Sig Dispense Refill ??? [place]-3 Fatty Acids-Vitamin E (FISH OIL) 1,000 mg Capsule Take by mouth. ??? Calcium 500 mg Tablet Take by mouth. ??? Cholecalciferol, Vitamin D3, (VITAMIN D-3) 2,000 unit Capsule Take by mouth. ??? ACETAMINOPHEN/DIPHENHYDRAMINE (TYLENOL PM ORAL) Take by mouth. ??? escitalopram (LEXAPRO) 10 mg tablet Allergies: No Known Allergies FAMILY HISTORY: Mother: CAD disease at 88 of multiple medical problems Father: CAD disease at age 71 Sibs: sister with recent breast cancer diagnosis Children: 2 daughers in 's [employer] Other: negative SOCIAL HISTORY Personal: in December 2013 - previously 40 years ; enjoys yoga; has a great network of friends, likes to socialize with friends. She is in another relationship now with Carlos - who travels a lot; Has 2 daughters 32 and 35 ([place] and [place]). 1 grandson in [place]. Originally from [place]. 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 Previously did home visits ETOH: 2 glasses wine per week. Smoking: smoked for 3 years or so in late teens - mostly social smoker HIPPA Contact Permission: OK to discuss with sister Kelly Vaughan, Lila Vivas (daughter), Remedios Thomas (friend), Carlos Ramsey (relationship) OK to discuss with Dr Sacha Hancock, Regional Operations Director at [facility] - fax [phone]. She would like her notes faxed to him. PHYSICAL EXAM BP 142/68 Pulse 87 Temp(Src) 37.2 ??C (99 ??F) (Temporal) Resp 18 Ht 159.2 cm (5' 2.68) Wt 65.5 kg (144 lb 6.4 oz) BMI 25.84 kg/m2 SpO2 100% Body surface area is 1.70 meters squared. GENERAL: Myriam Vivas appears well and is in no acute distress. ENT: Oral pharynx clear. EYES: SWATHI NECK: Supple with 2-[address] AXILLARY: L axillary well healed scar with a 3cm LN just caudal to it OTHER LYMPH: no adenopathy CARDIAC: Regular rate and rhythm without S3,S4 or murmurs. LUNGS: Clear to auscultation./percussion ABDOMEN: Soft and non-tender without hepatosplenomegaly or masses. EXTREMITIES: No cyanosis, clubbing, edema or calf tenderness. SKIN: No bruises or petechiae. NEUROLOGICAL: Alert and oriented to person, place and time. MUSCULOSKELETAL: No spinal or chest wall tenderness. LABORATORY STUDIES No results found for this or any previous visit (from the past 72 hour(s)). Labs from [facility] dated 03/04/14 White count 7.3 hemoglobin 12.0 platelets 172 normal differential. ANC 3.3 ALC 2.9 sedimentation rate 29 normal CMP with creatinine of 0.8 and normal LFTs. LDH not checked yet RADIOLOGY STUDIES REVIEWED: Outside CT was personally reviewed. Adenopathy was noted and left axillary, left supraclavicular and mediastinum. The largest lymph node was 4.2 cm in the left axilla and 7.6 cm in the right paratracheal region. CT of the neck, abdomen and pelvis has not yet been completed. ASSESSMENT/PLAN: It was my pleasure to meet this delightful 63-year-old female referred in consultation from Dr. Merlin Crandall for newly diagnosed diffuse large B-cell lymphoma. The pathology has not yet been reviewed at [facility] but the report from [facility] notes CD20 positive CD 10 negative lymphoproliferative disorder that is monoclonal with a Ki-67 of about 50%. We will obtain the pathology slides both to confirm ABM (non-GC) vs GC etiology as well as the myc status. Because we do not yet have the path slides nor staging studies I spoke in broad terms about lymphomas and the treatment specifically of diffuse large B-cell lymphoma. I explained the pathophysiology of lymphomas and have his staging the first from other solid tumors. I reassured her that many lymphomas are high in stage this as well only one factor in the prognostic score. Overall approximately 60-75% of all diffuse large B cell lymphomas are cured Our goal in treatment is always cure. I reviewed the need for a PET scan and how it is done. I also reviewed the bone marrow biopsy with the potential risks for bleeding, infection, and pain. She prefers to have a sedated bone marrow biopsy. Baseline laboratories are necessary and she agreed to testing for HIV and hepatitis B and C. Finally, an echocardiogram will be done to evaluate cardiac function prior to chemotherapy. I did not yet discussed Mediport given that it may not be necessary if R. CHOP is the recommended therapy. I reviewed the basic schedule of R. CHOP chemotherapy being given every 3 weeks for one day. The entire treatment course is about 4-1/2 months. This may or may not be the chemotherapy chosen. I did explain to her that she will have mild to no nausea and vomiting and any nausea is easily controlled with anti-emetics. Alopecia is expected. Some patients choose to continue to work on a part-time basis others prefer to take disability during the treatment time. Whichever approach is better for her,I will support. We may have a clinical trial open pending her pathology review. If she were to go on clinical trial she would need her therapy at [facility]. Otherwise she can get it at our satellite facility in [facility]. At her request I will forward my note and all of my future notes to her friend, Dr. Sacha Hancock ahematologist at [facility] in [facility]. Dr Sacha Hancock, Regional Operations Director at [facility] - fax [phone]. Plan: Obtain her path from [facility] for review here PET/CT scan ECHO Staging BMBX - sedated Labs including cbc, cmp, ldh, quant ig, spep, HIV, Hep B/C I discussed all of the above with the patient and all of his questions were answered. Supportive counseling given as appropriate. Reading information and websites were provided to the patient. I willplan to see her back to 4 days after completion of all of the above studies to discuss the staging studies, her pathology, the treatment plan and the pre-treatment chemotherapy visit with teaching. This note was written or modified using Vaddio voice recognition software. The final note was screened for mistakes. Please excuse any remaining errors. total time:90 time in counsellin Copy DUNIA CALDERON MD documented in this encounter Plan of Treatment Upcoming Encounters Date Type Department Care Team (Late st Contact Info) Description 12/07/2023 12:00 PM EDT Office Visit Dermatology at [facility] [address] [place] [address] Juan F Chappell MD [facility] [place] [address] documented as of this encounter Results * PET/CT STANDARD (Skull base to Mid-thigh) (03/28/2014 12:45 PM EST) Anatomical Region Laterality Modality Other 03/28/2014 12:4 5 PM EST Impressions 03/28/2014 4:49 PM EST IMPRESSION: 1. Intensely hypermetabolic lymphadenopathy supraclavicular, infraclavicular, [...] and in the right external iliac chain. Thank you for referring this patient to [facility]. Narrative 03/28/2014 4:49 PM EST EXAMINATION: PET/CT STANDARD (Skull base to Mid-thigh) CLINICAL HISTORY: staging lymphoma TECHNIQUE: Following IV injection of 56-zjmzqg-6-deoxyglucose (FDG) a standard uptake of approximately 60 [...] measure up to 26 x 17 mm. ?? CHEST: Several small hypermetabolic lymph nodes are [...] of the axial and visualized appendicular skeleton. ? Procedure Note Nelsy Alexis MD - 03/28/2014 EXAMINATION: PET/CT STANDARD (Skull base to Mid-thigh) CLINICAL HISTORY: staging lymphoma TECHNIQUE: Following IV injection of 26-mcdwyw-1-deoxyglucose (FDG) astandard uptake of approximately 60 minutes, a noncontrast CT scan followed by aPET scan were acquired from the base of the skull to mid thighs. The noncontrast CTwas used for anatomic localization and photon attenuation correction of thePET scan. Blood glucose level: 89 (mg/dL) FDG dose: 10.1 mCi COMPARISON: Outside chest CT February 26, 2014. FINDINGS: HEAD/NECK: Normal activity in the visualized lower head. Multiple hypermetabolicand enlarged left supraclavicular lymph nodes, which measure up to 26 x 17mm. CHEST: Several small hypermetabolic lymph nodes are seen deep to and inferior tothe left clavicle. Numerous intensely hypermetabolic and markedly enlargedlymph nodes are present in the left axilla with diameters up to 40 x 32 mm. Alarge conglomeration of lymph nodes extends right paratracheal from the level ofthe thoracic inlet along the right side of the mediastinum into thepretracheal region down to the level of the superior aspect of the right hilum. This conglomeration measures 80 x 80 x 75 mm. Central and segmental airways are widely patent. Normal findings of thelungs. No pleural effusion. ABDOMEN/PELVIS: Mildly increased uptake of 2 lymph nodes that are located prevertebralbetween the IVC and the abdominal aorta (image 123 and image 130). Intense hypermetabolic activity of left common iliac pathologically enlargedlymph nodes. In addition abnormal uptake is seen in small lymph nodes justanterior and inferior to the aortic bifurcation as well as in the right commoniliac and left internal iliac lymph nodes. Bilateral hypermetabolic external iliac lymphadenopathy with larger lymph nodes on the right than on the left.Milder uptake in small inguinal lymph nodes is seen on the left. SKELETON/EXTREMITIES: Normal activity in all regions of the axial and visualized appendicular skeleton. IMPRESSION IMPRESSION: 1. Intensely hypermetabolic lymphadenopathy supraclavicular,infraclavicular, and in the axilla on the left as well as paratracheal along themediastinum with pretracheal and hilar extension on the right. 2. Abnormal hypermetabolic lymphadenopathy paraaortocaval, in thebilateral common iliac, internal iliac, and external iliac as well as leftinguinal region. The largest lymph nodes are seen in the left common iliac and inthe right external iliac chain. Thank you for referring this patient to [facility]. Kimberly Mondragon MD IMG PET ORDERABL ES * HIV (03/28/2014 10:56 AM EST) HIV Ab/Ag Screen Negative Negative [facility] Comment: This 4th Generation HIV test screens for the presence of the HIV-1 p24 antigen as well as antibodies reactive against HIV-1 and HIV-2. A negative screen does not rule out an acute HIV infection. If acute HIV infection is suspected, testing should be repeated in 2 - 3 weeks or HIV nucleic acid testing performed. Blood specimen (specimen) 03/28/2014 10:56 AM EST 03/28/2014 11:09 AM EST Narrative Resulting Agency Comment Spec In Lab Kimberly Mondragon MD CHEMISTRY ORDERA BLES Performing Organization Address [facility] Co de Phone Number [facility] * Hepatitis C Antibody (03/28/2014 10:56 AM EST) Hepatitis C Antibody Negative Negative [facility] Blood specimen (specimen) 03/28/2014 10:56 AM EST 03/28/2014 11:09 AM EST Narrative Resulting Agency Comment Spec In Lab Kimberly Mondragon MD CHEMISTRY ORDERA BLES Performing Organization Address [facility] Co de Phone Number [facility] * Hepatitis B Surface Antigen (03/28/2014 10:56 AM EST) Hepatitis B Surface Antigen Negative Negative [facility] Blood specimen (specimen) 03/28/2014 10:56 AM EST 03/28/2014 11:09 AM EST Narrative Resulting Agency Comment Spec In Lab Kimberly Mondragon MD CHEMISTRY ORDERA BLES Performing Organization Address [facility] Co de Phone Number [facility] * Hepatitis B Surface Antibody (03/28/2014 10:56 AM EST) Hepatitis B Surface Antibody Negative [facility] Comment: Expected Results: Vaccinated: Positive Unvaccinated: Negative Please note: A positive result for this assay is consistent with a concentration of anti-HBs antibodies >10mIU/ml, which indicates that anti-HBs antibodies have been detected at levels consistent with protective immunity against HBV infection. Blood specimen (specimen) 03/28/2014 10:56 AM EST 03/28/2014 11:09 AM EST Narrative Resulting Agency Comment Spec In Lab Kimberly Mondragon MD CHEMISTRY ORDERHillary RAM [facility] * Hepatitis B Core Antibody, Total (03/28/2014 10:56 AM EST) Hepatitis B Core Antibody Negative Negative [facility] M[facility]EN[facility] Blood specimen (specimen) 03/28/2014 10:56 AM EST 03/28/2014 11:09 AM EST Narrative Resulting Agency Comment Spec In Lab Kimberly Mondragon MD CHEMISTRY ORDERA BLES Performing Organization Address City/[facility]/ZIP Co de Phone Number [facility] * Uric acid (03/28/2014 10:56 AM EST) Pathologist [facility] Uric Acid 3.1 2.5 - 6.5 mg/dL [facility] MILLENNIUM Blood specimen (specimen) 03/28/2014 10:56 AM EST 03/28/2014 11:09 AM EST Narrative Resulting Agency Comment Spec In Lab Kimberly Mondragon MD CHEMISTRY ORDERHillary BLES Performing Organization Address [facility] Co de Phone Number [facility] * (ABNORMAL) Immunoglobulins, Quantitative (03/28/2014 10:56 AM EST) Pathologist [facility] Immunoglobulin G 697(L) 700 - 1,600 mg/dL [facility] MILLENNIUM IgA 26(L) 70 - 400 mg/dL [facility] MILLENNIUM IgM 432(H) 40 - 230 mg/dL [facility] MILLENNIUM Blood specimen (specimen) 03/28/2014 10:56 AM EST 03/28/2014 11:09 AM EST Narrative Resulting Agency Comment Spec In Lab Kimberly Mondragon MD CHEMISTRY ORDERHillary BLEMarkell Performing Organization Address City/[facility]/ZIP Co de Phone Number [facility] * Protein Electrophoresis, serum (03/28/2014 10:56 AM EST) Total Prot Electrophoresis 6.9 6.4 - 8.3 gm/dL [facility] MILLENNIUM Albumin Electrophoresis 4.57 3.60 - 6.00 gm/dL [facility] MILLENNIUM Alpha 1 Globulin 0.20 0.10 - 0.30 gm/dL [facility] MILLENNIUM Alpha 2 Globulin 0.78 0.40 - 0.90 gm/dL [facility] MILLENNIUM Beta Globulin 0.63 0.50 - 1.00 gm/dL [facility] MILLENNIUM Gamma Globulin 0.72 0.50 - 1.30 gm/dL [facility] MILLENNIUM M1 Band None Detected None Detected gm/dL [facility] MILLENNIUM Scan See Note [facility] MILLENNIUM Comment:Please see scanned r eport in Chart Review under the [facility] Laboratory Heading. Blood specimen (specimen) 03/28/2014 10:56 AM EST 03/28/2014 11:09 AM EST Narrative Resulting Agency Comment Spec In Lab Kimberly Mondragon MD CHEMISTRY ORDERA EDWARS Performing Organization Address [facility] Co de Phone Number [facility] MILLENNI[facility] * (ABNORMAL) Lactate Dehydrogenase (03/28/2014 10:56 AM EST) Lactate Dehydrogenase 430(H) 110 - 220 unit/L [facility] MILLENNIUM Blood specimen (specimen) 03/28/2014 10:56 AM EST 03/28/2014 11:09 AM EST Narrative Resulting Agency Comment Spec In Lab Kimberly Mondragon MD CHEMISTRY ORDERA BLES Performing Organization Address [facility] Co de Phone Number [facility] MILLENNIUM * (ABNORMAL) Comprehensive metabolic panel (non-fasting) (03/28/2014 10:56 AM EST) Glucose 88 60 - 199 mg/dL [facility] MILLENNIUM Comment:Diabetes: >=200 mg/d L plus symptoms Blood Urea Nitrogen 24(H) 8 - 18 mg/dL [facility] MILLENNIUM Creatinine 0.64(L) 0.70 - 1.20 mg/dL [facility] MILLENNIUM Comment: Please note that the pediatric reference intervals supplied above were not validated at [facility]. Results from pediatric patients should be interpreted [...] - 10.5 mg/dL [facility] MILLENNIUM Protein, Total 7.4 6.4 - 8.3 gm/dL [facility] MILLENNIUM Albumin 4.8 3.2 - 5.2 gm/dL [facility] MILLENNI[facility] Aspartate Aminotransferase 26 0 - 30 unit/L [facility] MILLENNIUM Alanine Aminotransferase 23 0 - 30 unit/L [facility] MILLENNIUM Alkaline [...] the following links into your internet browser. [email or web address] Blood specimen (specimen) 03/28/2014 10:56 AM EST 03/28/2014 11:09 AM EST Narrative Resulting Agency Comment Spec In Lab Kimberly Mondragon MD CHEMISTRY ORDERA LEANNA [facility] Organization Address City/State/ZIP Co de Phone Number [facility] MILLENNIUM * Echocardiogram Transthoracic(Leb) (03/28/2014 10:46 AM EST) EF 62 HEARTSleepOut SYSTEM Anatomical Region Laterality Modality Other 03/28/2014 Narrative 03/28/2014 11:04 AM EST Procedure: ? Transthoracic Echocardiogram Patient: ? AP Campuzano ?(Age): 1950(63) Med Rec#: ?[id number] ? Sex: ?F ? Site Loc: ?[facility] ? Ht / Wt: ??159(cm)/66(kg) Pt. Loc: ? Echo Lab ? BSA: ?1.71 Study Date: ?03/28/2014 ? Pt. Type: Outpatient Tape: ? Referring: Kimberly Mondragon Director Internal Control: Sandrine Ambrose Diagnosis:CPT Code(s): ??Echo Full (12233), ??Spectral Doppler (05650), Color Doppler (82250), Indication(s): ??Chemotherapy-baseline Rhythm: HR ?BP ?123/58 ?? SUMMARY: 1. There is normal global left ventricular systolic function. ??The quantitative left ventricular ejection fraction by biplane Gallardo's method is 62%. ??There are no left ventricular segmental wall motion abnormalities. 2. Right ventricular chamber size, wall thickness, and systolic function are within normal limits. 3. There is no hemodynamically significant valve disease. 4. See remainder of report for additional findings. FINDINGS: Left Ventricle ?The left ventricular chamber size is normal. ?Left ventricular wall thickness is normal. ?There is normal global left ventricular systolic function. ?The quantitative left ventricular ejection fraction by biplane Gallardo's method is 62%. ?There are no left ventricular segmental wall motion abnormalities. ?Doppler assessment is consistent with normal left sided filling pressure. Left Atrium ?The left atrium is normal in size.(22 ml/m2) Right Ventricle ?Right ventricular chamber size, wall thickness, and systolic function are within normal limits. Right Atrium ?The right atrium is normal in size. Aortic Valve ?The aortic valve is trileaflet. The leaflets are thin with normal excursion. There is no aortic stenosis or regurgitation present. Mitral Valve ?The mitral valve appears normal in structure and function. ?There is mild (1+/4+) mitral regurgitation present. Tricuspid Valve ?The tricuspid valve appears normal in structure and function. ?There is trace tricuspid regurgitation present. Pulmonic Valve ?The pulmonic valve appears normal in structure and function. ?There is trace pulmonic regurgitation present. Pericardium [...] echo, spectral Doppler and color Doppler performed. Wall Motion: Segment Name ?Rest ? Base-Anteroseptal ?? Normal ? Base-Anterior ? Normal ? Base-Anterolateral ??Normal ? Base-Posterolateral Normal ? Base-Inferior ? Normal ? Base-Inferoseptal ?? Normal ? Mid-Anteroseptal ?Normal ? Mid-Anterior ?Normal ? Mid-Anterolateral ?? Normal ? Mid-Posterolateral ??Normal ? Mid-Inferior ?Normal ? Mid-Inferoseptal ?Normal ? [place]-Septal ? Normal ? [place]-Anterior ? Normal ? [place]-Lateral ?Normal ? [place]-Inferior ? Normal ? [place]-Tip ?Normal ? Chambers ?Value ?Units (Range) ? EF ??Bi-p Simp ? 62 ? % (55 to 80) ? 3D LVEF ? 60 ? % ? 3D end di vol ? 81 ? ml ? 3D end sys vol ?32 ? ml ? IVSd 2D ? 0.9 ?cm ? LVIDd 2D ?3.8 ?cm ? PWd 2D ?0.8 ?cm ? LVIDs 2D ?2.5 ?cm ? LVFS 2D ? 34 ? % ? LA area ? 12.8 ? cm2 (<21) ? RA area ? 13.3 ? cm2 (<18) ? Ao root ? 2.9 ?cm (2.1 to 3.6) ? Asc Ao ?2.8 ?cm (2 to 3.5) ? Mitral Valve ?Value ?Units (Range) ? E peak ?0.67 ? m/sec ? E/A ratio ? 0.7 ?ratio ? MVDT ?159 ?msec ? E1 ?0.06 ? m/sec ? E/E1 ?11.2 ? ratio ? Tricuspid/Pulmonic Valves ?Value ?Units (Range) ? TR peak pancho ? 2.3 ?m/sec ? RAP ? 3 ?mmHg ? RVSP/PASP ? 25 ? mmHg ? This report has been electronically signed by: Antonio Johansen M.D. ? 03/28/2014 11:03:42 Images reviewed and interpretation verified [facility] Cardiac Ultrasound Laboratory Procedure Note Antonio Johansen MD - 03/28/2014 Procedure: Transthoracic Echocardiogram Patient: AP Campuzano DOB(Age): 1950(63) Med Rec#: [id number] Sex: F [place] Loc[place] [facility] [place]t / Wt: 159(cm)/66(kg) Pt. Loc: Echo Lab BSA: 1.71 Study Date: 03/28/2014 Pt. Type: Outpatient Tape: Referring: Kimberly Mondragon Director Internal Control: Sandrine Ambrose Diagnosis:CPT Code(s): Echo Full (76685), Spectral Doppler (94339), Color Doppler (98882), Indication(s): Chemotherapy-baseline Rhythm: HR BP 123/58 SUMMARY: 1. There is normal global left ventricular systolic function. The quantitative left ventricular ejection fraction by biplane Gallardo's method is 62%. There are no left ventricular segmental wall motion abnormalities. 2. Right ventricular chamber size, wall thickness, and systolic function are within normal limits. 3. There is no hemodynamically significant valve disease. 4. See remainder of report for additional findings. FINDINGS: Left Ventricle The left ventricular chamber size is normal. Left ventricular wall thickness is normal. There is normal global left ventricular systolic function. The quantitative left ventricular ejection fraction by biplane Gallardo's method is 62%. There are no left ventricular segmental wall motion abnormalities. Doppler assessment is consistent with normal left sided filling pressure. Left Atrium The left atrium is normal in size.(22 ml/m2) Right Ventricle Right ventricular chamber size, wall thickness, and systolic function are within normal limits. Right Atrium The right atrium is normal in size. Aortic Valve The aortic valve is trileaflet. The leaflets are thin with normal excursion. There is no aortic stenosis or regurgitation present. Mitral Valve The mitral valve appears normal in structure and function. There is mild (1+/4+) mitral regurgitation present. Tricuspid Valve The tricuspid valve appears normal in structure and function. There is trace tricuspid regurgitation present. Pulmonic Valve The pulmonic valve appears normal in structure and function. There is trace pulmonic regurgitation present. Pericardium [...] echo, spectral Doppler and color Doppler performed. Wall Motion: Segment Name Rest Base-Anteroseptal Normal Base-Anterior Normal Base-Anterolateral Normal Base-Posterolateral Normal Base-Inferior Normal Base-Inferoseptal Normal Mid-Anteroseptal Normal Mid-Anterior Normal Mid-Anterolateral Normal Mid-Posterolateral Normal Mid-Inferior Normal Mid-Inferoseptal Normal [place]-Septal Normal [place]-Anterior Normal [place]-Lateral Normal [place]-Inferior Normal [place]-Tip Normal Chambers Value Units (Range) EF Bi-p Simp 62 % (55 to 80) 3D LVEF 60 % 3D end di vol 81 ml 3D end sys vol 32 ml IVSd 2D 0.9 cm LVIDd 2D 3.8 cm PWd 2D 0.8 cm LVIDs 2D 2.5 cm LVFS 2D 34 % LA area 12.8 cm2 (<21) RA area 13.3 cm2 (<18) Ao root 2.9 cm (2.1 to 3.6) Asc Ao 2.8 cm (2 to 3.5) Mitral Valve Value Units (Range) E peak 0.67 m/sec E/A ratio 0.7 ratio MVDT 159 msec E1 0.06 m/sec E/E1 11.2 ratio Tricuspid/Pulmonic Valves Value Units (Range) TR peak pancho 2.3 m/sec RAP 3 mmHg RVSP/PASP 25 mmHg This report has been electronically signed by: Antonio Johansen M.D. 03/28/2014 11:03:42 Images reviewed and interpretation verified [facility] Cardiac Ultrasound Laboratory Kimberly Mondragon MD ECHO ORDERABLES documented in this encounter Visit Diagnoses Diagnosis Lymphoma Other malignant lymphomas, unspecified site, extranodal and solid organ sites Lymphoma Other malignant lymphomas, unspecified site, extranodal and solid organ sites Lymphoma Other malignant lymphomas, unspecified site, extranodal and solid organ sites documented in this encounter Care Teams Oil Burner Repairer Relationship Specialty Start Date End Date Dunia Calderon MD PCP - General 03/21/14 04/07/14 documented as of this encounter
--- OUTSIDE RECORDS SUMMARY | 2023-10-28 00:50 | XMS_ITS | Encounter Summary ---
Author Organization [facility] Address [address] [place] [address] Care Team Providers Care Adoption Counselor Name Role Phone Dunia Calderon MD Primary Care Provide r Encounter Details Date Type Department Care Team (Late st Contact Info) Description 03/08/2014 Results Only [facility] Laboratory Services - [facility] ([facility]) [address] [place] [address], [place] [address] Sylvester Schaeffer, [address] [facility] [address] [place], [place] [id number] Social History Tobacco Use Types Packs/Day Years Used Date Smoking Tobacco: Never Assessed Sex and Gender Information Value Date Recorded Sex Assigned at Not on file Gender Identity Not on file Sexual Orientation Not on file documented as of this encounter Plan of Treatment Not on file documented as of this encounter Procedures Procedure Name Priority Date/Time Associated Diagnosis Comments SURGICAL PATHOLOGY Routine 03/08/2014 9:12 EST FLOW CYTOMETRY Routine 03/08/2014 0:00 EST documented in this encounter Results * SURGICAL PATHOLOGY (03/08/2014 9:12 EST) Pathology Report: SURGICAL PATHOLOGY REPORT Reports generated via electronic interface contain original data; however they are lacking the format of the original report. Caution should be taken when reading/interpreting unformatted reports. Name: ? LUIS FERNANDO VIVAS ? Accession #: ? [id number] ? : ? 1950 (Age: 63) ??F ? Collect Date: ? 03/08/2014 ? Location: ? [facility] ? Receive Date: ? 03/08/2014 ? Provider: SYLVESTER SCHAEFFER DO Copy to: DUNIA CALDERON MD ? Final Pathologic Diagnosis: Lymph node, left axilla, excisional biopsy: ? Diffuse large B-cell lymphoma. ??See comment. Comment: ? The node is comprised of nodules of large centroblasts filling the cortical area and fatty infiltration in the central portion. ??Some of the areas have expanded to become diffuse. ?? The cells are positive for CD20 (B-cell) (L26, [place]) and BCL-6 (G/191E/A8, [place]), but lack CD10 (SP67, [place]) expression. ??CD3 (T-cell) (Rabbit Monoclonal (SP7), [employer]) stains background T-cells. ??CD21 (1F8, [place]) and D2-40 (D2-40, [place]) show retention of a dendritic network within the nodules but the nodular arrangement is lost in some areas.. ??MIB-1(Ki-67) (Rabbit Monoclonal (SP6), [employer]) is positive in about 50% of the large cells. ??Flow cytometry ([id number]) in non-contributory. The presence of some diffuse areas indicates this is diffuse large B-cell lymphoma. 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 ??This case was reviewed by Dr. Braxton who concurs. ? NOTE: ??One or more of the reagents used in immunohistochemical testing in this case may not have been cleared or approved by the U.S. Food and Drug Administration (FDA). ??The FDA has determined that such clearance or approval is not necessary. ??These tests are used for clinical purposes. ??They should not be regarded as investigational or for research. ??These reagents' performance characteristics have been determined by [facility]. ??This laboratory is certified under the Clinical Laboratory Improvement Amendments of 1988 (CLIA-88) as qualified to perform high complexity clinical laboratory testing. ?? Document reviewed and electronically signed by: MARIO SAMANIEGO MD Report ??Date: 03/15/2014 11:44 By the signature above, the attending physician certifies that he/she has personally conducted a gross and/or microscopic examination of the described specimens and rendered or confirmed the above diagnosis. Specimen(s) Received: Left axillary node Clinical History: Left axillary node swelling Gross Description: ? Received in formalin labelled with proper patient identification (initials H, L) and #1 left axillary node is a single hutton lymph node (1.2 x 0.8 x 0.7 cm). The node is serially sectioned and entirely submitted as [address] Hawley 03/11/2014 02:50 PM End of Report [facility] 03/08/2014 9:12 EST 03/08/2014 9:12 EST Sylvester Schaeffer DO PATHOLOGY ORDER AYO [facility] [address] [place] [address] * FLOW CYTOMETRY (03/08/2014 0:00 EST) Pathology Report: FLOW CYTOMETRY REPORT Reports generated via electronic interface contain original data; however they are lacking the format of the original report. Caution should be taken when reading/interpreting unformatted reports. Name: ? LUIS FERNANDO VIVAS ? Accession #: ? [id number] : ? 1950 (Age: 63) ??F ?Collect Date: ? 03/08/2014 00:00 Location: ? [facility] ? Receive Date: ? 03/09/2014 08:00 Provider: ?JANETTRICIANICHOLAS SCHAEFFER DO Copy to: ?DUNIA CALDERON MD ? FINAL IMMUNOPHENOTYPIC INTERPRETATION: ? Lymph node, flow cytometric analysis: ? No immunophenotypic evidence of a clonal cell population. ??See comment. ? COMMENT: ? The results of flow cytometry show no immunophenotypic evidence of involvement by a clonal lymphoproliferative disorder. ??Correlation of these findings with morphologic and clinical data is essential. ??(See [id number]) ? Document reviewed and electronically signed by: ? MARIO SAMANIEGO MD Report Date: ??03/15/2014 08:17 By the signature above, the attending physician certifies that he/she has personally conducted an evaluation of the described specimen and rendered or confirmed the above diagnosis. CLINICAL HISTORY: The patient is a 63-year-old female with lymphadenopathy. DESCRIPTION: ? The specimen consists of lymph node tissue from which a single cell suspension is prepared. ?? Gating is performed using CD45 fluorescence and side scatter. ??Cellular viability (assessed by propidium iodide exclusion) is poor (53%) among ??the CD45 positive events, but good (87%) among the lymphoid cells.. Expression of the following antigens is tested: CD2, CD3, CD4, CD5, CD7, CD8, CD10, CD11b, CD11c, CD14, CD16, CD19, CD20, CD23, CD38, CD45, CD56, CD57, FMC-7, HLA-DR, kappa, lambda. ? A majority of the lymphoid cells are T-lymphocytes (CD2+CD3+CD5+CD7+) with CD4+ and CD8+ subsets represented. ??T-cells are activated (CD38+) with some large cells, but no immunophenotypic abnormality is present. ??B-cells are few in number but appear polytypic. ? This test was developed and its performance characteristics determined by the Department of Pathology and Laboratory Medicine, [facility], [place], [place] ??It has not been cleared or approved by the U.S. Food and Drug Administration. ?? End of Report ?? [facility] 03/08/2014 03/09/2014 8:0 0 EST Sylvester Schaeffer DO PATHOLOGY ORDER AYO [facility] [address] [place] [address] documented in this encounter Visit Diagnoses Not on filedocumented in this encounter Care Teams Adoption Counselor Relationship Specialty Start Date End Date Dunia Calderon MD [address] [place] [phone] PCP - General 03/11/14 07/14/20 documented as of this encounter
--- OUTSIDE RECORDS SUMMARY | 2023-10-28 00:50 | XMS_ITS | Encounter Summary ---
Author Organization [facility] Address [address] [place] [address] Care Team Providers Care Card Grader Name Role Phone Belén Griffin MD Primary Care Provider [phone] Encounter Details Date Type Department Care Team (Late st Contact Info) Description 10/26/2023 Lab Requisition [facility] Pathology & Laboratory Medicine - [address] [address] Outr Resulting Lab, Provider Social History Tobacco [...] Procedure Name Priority Date/Time Associated Diagnosis Comments SS-B (LA) ANTIBODY, IGG Routine 10/26/2023 15:02 EDT SM ([place]) ANTIBODY, IGG Routine 10/26/2023 15:02 EDT AUTO TRANSMISSION SPECIALIST ANTIBODY, IGG Routine 10/26/2023 15: 02 EDT DOUBLE STRANDED DNA ANTIBODY, IGG Routine 10/26/2023 15:02 EDT documented in this encounter Results * DOUBLE STRANDED DNA ANTIBODY, IGG (10/26/2023 15:02 EDT) dsDNA Ab, IgG <22.0 <27.0 IU/mL 10/27/2023 16:52 EDT [facility] Comment: Negative: <27.0 IU/mL Indeterminate: 27.0 - 35.0 IU/mL Positive: >35.0 IU/mL Results were obtained with [employer]ool QUANTA Flash dsDNA chemiluminescent immunoassay. Values obtained with different manufacturers' assay methods may not be used interchangeably. Blood VENOUS BLOOD / Unknown 10/26/2023 15:02 EDT 10/26/2023 21:39 EDT Provider Outr Resulting Lab IMMUNOLOGY A ND SEROLOGY ORDERABLES Performing Organization Address [facility] de Phone Number [facility] [address] [place] [phone] * AUTO TRANSMISSION SPECIALIST ANTIBODY, IGG (10/26/2023 15:02 EDT) [facility] AUTO TRANSMISSION SPECIALIST Antibody, IgG <6.0 <20.0 CU 024 16:52 EDT [facility] Comment:Results were obtaine d with the [employer]ool QUANTA Flash AUTO TRANSMISSION SPECIALIST chemilumenscent immunoassay. Values obtained with different manufacturers' assay methods may not be used interchangeably. Blood VENOUS BLOOD / Unknown 10/26/2023 15:02 EDT 10/26/2023 21:39 EDT Provider Outr Resulting Lab IMMUNOLOGY A ND SEROLOGY ORDERABLES Performing Organization Address [facility] de Phone Number [facility] [address] [place] [address] * SM ([place]) ANTIBODY, IGG (10/26/2023 15:02 EDT) SM ([place]) Antibody, IgG <8.0 <20.0 CU 10/27/2023 16:52 EDT [facility] Comment:Results were obtaine d with the Qool QUANTA Flash Sm chemiluminescent immunoassay. Values obtained with different manufacturers' assay methods must not be used interchangeably. Blood VENOUS BLOOD / Unknown 10/26/2023 15:02 EDT 10/26/2023 21:39 EDT Provider Outr Resulting Lab IMMUNOLOGY A ND SEROLOGY ORDERABLES Performing Organization Address [facility] Co de Phone Number [facility] [address] [place], [place] [phone] * SS-B (LA) ANTIBODY, IGG (10/26/2023 15:02 EDT) SSB Antibody, IgG <3.3 <20.0 CU 024 16:52 EDT [facility] Comment:Results were obtaine d with the ZazooA Flash SS-B chemiluminescent immunoassay. Values obtained with different manufacturers' assay methods must not be used interchangeably. Blood VENOUS BLOOD / Unknown 10/26/2023 15:02 EDT 10/26/2023 21:39 EDT Provider Outr Resulting Lab IMMUNOLOGY A ND SEROLOGY ORDERABLES Performing Organization Address [facility] Co de Phone Number [facility] [address] [place], [place] [phone] documented in this encounter Visit Diagnoses Not on filedocumented in this encounter Care Teams Card Grader Relationship Specialty Start Date End Date Belén Griffin MD [address] [place] [phone] PCP - General 07/15/20 documented as of this encounter
--- OUTSIDE RECORDS SUMMARY | 2023-10-28 00:50 | XMS_ITS | Encounter Summary ---
Author Organization [facility] Address [facility] [place] [address] Care Team Providers Care Marine Propulsion Technician Name Role Phone Michelle Hall MD Primary Care Provider [phone] Encounter Details Date Type Department Care Team (Late st Contact Info) Description 02/16/2013 Orders Only Hematology Oncology at [address] [phone] Sal Ward MD [address] [place] [phone] Social History Tobacco Use Types Packs/Day Years Used Date Smoking Tobacco: Never Assessed Sex and Gender Information Value Date Recorded Sex Assigned at Not on file Gender Identity Not on file Sexual Orientation Not on file documented as of this encounter Plan of Treatment Upcoming Encounters Date Type Department Care Team (Late Contact Info) Description 12/07/2023 12:00 PM EDT Office Visit Dermatology at [facility] [address] [place] [phone] Juan F Chappell MD [facility] [address] [place] [address] documented as of this encounter Procedures Procedure Name Priority Date/Time Associated Diagnosis Comments FILM LIBRARY STORAGE ONLY MAMMO Routine 02/16/2013 1:45 PM EST documented in this encounter Results * Film Library- Storage only Mammo (02/16/2013 1:45 PM EST) Anatomical Region Laterality Modality Other 02/16/2013 1:45 PM EST Narrative 03/18/2014 2:02 PM EST This is a Non-reportable exam Procedure Note AMANDA, UNSIGNED REPORT - 03/18/2014 This is a Non-reportable exam Sal Ward MD IMG FILM LIBRARY ORD ERABLES documented in this encounter Visit Diagnoses Not on filedocumented in this encounter Care Teams Marine Propulsion Technician Relationship Specialty Start Date End Date Michelle Hall MD [address] [place] [address] PCP - General 01/06/10 03/18/14 documented as of this encounter
--- OUTSIDE RECORDS SUMMARY | 2023-10-28 00:50 | XMS_ITS | Encounter Summary ---
Author Organization [facility] Address [facility] [place] [address] Care Team Providers Care Senior Operator Name Role Phone Mellissa Gonsales MD Primary Care Provider Encounter Details Date Type Department Care Team (Late st Contact Info) Description 03/21/2014 Orders Only Hematology [place] [phone] Kimberly Mondragon MD [facility] [address] [place]ATOLOGY [place] [address] Social History Tobacco Use Types Packs/Day Years Used Date Smoking Tobacco: Never Sex and Gender Information Value Date Recorded Sex Assigned at Not on file Gender Identity Not on file Sexual Orientation Not on file documented as of this encounter Plan of Treatment Upcoming Encounters Date Type Department Care Team (Late st Contact Info) Description 12/07/2023 12:00 PM EDT Office Visit Dermatology at [facility] [address] [place] [phone] Juan F Chappell MD [facility] [address] [place] [address] Scheduled Orders Name Type Priority Associated Diagnoses Orde r Schedule ([facility] MSURG)BONE MARROW ASP PERFORMED W/BX THRU BX INCISION Procedures Routine One Time f or 1 Occurrences starting 03/21/2014 until 03/21/2014 ([facility] MSURG) UNILAT BONE MARROW BIOSPY Procedures Routine One Time for 1 Occurrences starting 03/21/2014 until 03/21/2014 documented as of this encounter Visit Diagnoses Not on filedocumented in this encounter Care Teams Senior Operator Relationship Specialty Start Date End Date Mellissa Gonsales MD PCP - General 03/21/14 04/07/14 documented as of this encounter
--- OUTSIDE RECORDS SUMMARY | 2023-10-28 00:50 | XMS_ITS | Encounter Summary ---
Author Organization [facility] Address [facility] [place] [address] Care Team Providers Care Medical Assistant Cardiology Name Role Phone Michelle Hall MD Primary Care Provider [phone] Encounter Details Date Type Department Care Team (Late st Contact Info) Description 02/28/2012 Orders Only Hematology Oncology at [address] [phone] Sal Ward MD [address] [place] [phone] Social History Tobacco Use Types Packs/Day Years [...] [facility] [address] [place] [address] Juan F Chappell MD [facility] [address] [place] [address] documented as of this encounter Procedures Procedure Name Priority Date/Time Associated Diagnosis Comments FILM LIBRARY STORAGE ONLY MAMMO Routine 02/28/2012 1:45 PM EST documented in this encounter Results * Film Library- Storage only Mammo (02/28/2012 1:45 PM EST) Anatomical Region Laterality Modality Other 02/28/2012 1:45 PM EST Narrative 03/18/2014 1:59 PM EST This is a Non-reportable exam Procedure Note AMANDA, UNSIGNED REPORT - 03/18/2014 This is a Non-reportable exam Sal Ward MD IMG FILM LIBRARY ORD ERABLES documented in this encounter Visit Diagnoses Not on filedocumented in this encounter Care Teams Medical Assistant Cardiology Relationship Specialty Start Date End Date Michelle Hall MD [address] [place] [address] PCP - General 01/06/10 03/18/14 documented as of this encounter
--- OUTSIDE RECORDS SUMMARY | 2023-10-28 00:50 | XMS_ITS | Encounter Summary ---
Author Organization [facility] [place] [address] Care Team Providers Care Ignition Expert Name Role Phone Mellissa Gonsales MD Primary Care Provider Encounter Details Date Type Department Care Team (Late st Contact Info) Description 03/28/2014 10:42 AM EST - 03/28/2014 11:59 PM [facility] Hospital Encounter [place] [phone] Lymphoma Social History Tobacco Use Types Packs/Day Years Used Date Smoking Tobacco: Never Sex and Gender Information Value Date Recorded Sex Assigned at Not on file Gender Identity Not on file Sexual Orientation Not on file documented as of this encounter Medications at Time of Discharge Medication Sig Dispensed Refills Start Date End Date [place]-3 Fatty Acids-Vitamin E (FISH OIL) 1,000 mg CapsuleIndications:Lympho ma Take by mouth. 01/29/2015 Calcium 500 mg TabletIndications:Lymphom a Take by mouth. 01/29/2015 Cholecalciferol, Vitamin D3, (VITAMIN D-3) 2,000 unit CapsuleIndications:Lympho ma Take 1,000 Units by mouth. 01/29/2015 ACETAMINOPHEN/DIPHENHYDRA MINE (TYLENOL PM ORAL)Indications:Lymphoma Take by mouth. 04/02/2014 LORazepam (ATIVAN) 0.5 mg TabletIndications:Lymphom a Take 0.5 mg by mouth every 6 hours as needed for Anxiety. 05/08/2014 escitalopram (LEXAPRO) 10 mg tablet 03/08/2005 01/03/2015 documented as of this encounter Plan of Treatment Upcoming Encounters Date Type Department Care Team (Late st Contact Info) Description 12/07/2023 12:00 PM EDT Office Visit Dermatology at [facility] [address] [place] [address] [facility] [address] RANDEE [place] [address] documented as of this encounter Procedures Procedure Name Priority Date/Time Associated Diagnosis Comments POCT GLUCOSE Routine 03/28/2014 11:21 AM EST IMMUNOGLOBULINS, QUANTITATIVE STAT 03/28/2014 10:56 AM EST Lymphoma HEMOGRAM STAT 03/28/2014 10:56 AM EST Lymphoma DIFFERENTIAL, AUTOMATED STAT 03/28/2014 10:56 AM EST Lymphoma HEPATITIS C ANTIBODY STAT 03/28/2014 10:56 AM EST Lymphoma HEPATITIS B CORE ANTIBODY, TOTAL STAT 03/28/2014 10:56 AM EST Lymphoma HIV SCREEN, 4TH GENERATION ([facility]/CGP/APD/NLH) STAT 03/28/2014 10:56 AM EST Lymphoma HEPATITIS B SURFACE ANTIBODY STAT 03/28/2014 10:56 AM EST Lymphoma HEPATITIS B SURFACE ANTIGEN STAT 03/28/2014 10:56 AM EST Lymphoma CBC (WITH DIFF) STAT 03/28/2014 10:56 AM EST Lymphoma URIC ACID STAT 03/28/2014 10:56 AM EST Lymphoma PROTEIN ELECTROPHORESIS, SERUM STAT 03/28/2014 10:56 AM EST Lymphoma LACTATE DEHYDROGENASE STAT 03/28/2014 10:56 AM EST Lymphoma COMPREHENSIVE METABOLIC PANEL STAT 03/28/2014 10:56 AM EST Lymphoma documented in this encounter Results * POCT Glucose (03/28/2014 11:21 AM EST) Glucose, POC 89 60 - 199 mg/dL CERNER MILLENNIUM Comment: Supplemental ranges: <140 mg/dL before meals <180 mg/dL all other times of the day Blood specimen (specimen) 03/28/2014 11:21 AM EST 03/28/2014 11:21 AM EST Kimberly Mondragon MD POINT OF CARE TE ST ORDERABLES CERNER MILLENNIUM * Differential, Automated (03/28/2014 10:56 AM EST) Neutrophil % 47.8 % CERNER MILLENNIUM Neutrophil Absolute 3.58 1.50 - 6.30 x10(3)/mcL CERNER MILLENNIUM Lymph % 41.7 % CERNER MILLENNIUM Lymphocytes Abs 3.1 1.0 - 3.6 x10(3)/mcL CERNER MILLENNIUM Monocyte % 4.9 % CERNER MILLENNIUM Monocyte Abs 0.4 0.2 - 1.0 x10(3)/mcL CERNER MILLENNIUM Eos % 4.4 % CERNER MILLENNIUM Eosinophils Abs 0.3 0.0 - 0.5 x10(3)/mcL CERNER MILLENNIUM Basophil % 1.1 % CERNER MILLENNIUM Baso Absolute 0.1 0.0 [...] 0.05 x10(3)/mcL CERNER MILLENNIUM Blood specimen (specimen) 03/28/2014 10:56 AM EST 03/28/2014 11:09 AM EST Narrative Resulting Agency Comment Spec In Lab Kimberly Mondragon MD HEMATOLOGY ORDER AYO Performing Organization Address City/[facility]/ZIP Co de Phone Number GIBRAN BUCHANANENNIUM * (ABNORMAL) Hemogram (03/28/2014 10:56 AM EST) White Blood Cell 7.5 4.0 - 10.0 x10(3)/mc L CERNER MILLENNIUM Red Blood Cell 4.03 3.93 - 5.22 x10(6)/mc L CERNER MILLENNIUM Hemoglobin 11.9 11.2 - 15.7 gm/dL CERNER MILLENNIUM Hematocrit 34.9 34.0 - 45.0 % CERNER MILLENNIUM Mean Cell Volume 86.6 79.0 - 94.0 fL CERNER MILLENNIUM Mean Cell Hemoglobin 29.5 26.6 - 32.2 pg CERNER MILLENNIUM Mean Cell Hemoglobin Concentration 34.1 32.0 - 36.5 gm/dL CERNER MILLENNIUM Platelet 157 145 - 370 x10(3)/mc L CERNER MILLENNIUM RDW Standard Deviation 41.7 35.0 - 46.0 fL CERNER MILLENNIUM RDW coefficient of variation 13.2 10.9 - 14.4 % CERNER MILLENNIUM Mean Platelet Volume 8.9(L) 9.0 - 12.0 fL CERNER MILLENNIUM Blood specimen (specimen) 03/28/2014 10:56 AM EST 03/28/2014 11:09 AM EST Narrative Resulting Agency Comment Spec In Lab Kimberly Mondragon MD HEMATOLOGY ORDER AYO GIBRAN GEEIUM * HIV (03/28/2014 10:56 AM EST) HIV Ab/Ag Screen Negative Negative CERNER MILLENNIUM Comment: This 4th Generation HIV test screens [...] MD CHEMISTRY ORDERA BLES Performing Organization Address [facility] de Phone Number [facility] * Hepatitis C Antibody (03/28/2014 10:56 AM EST) Hepatitis C Antibody Negative Negative [facility] Blood specimen (specimen) 03/28/2014 10:56 AM EST 03/28/2014 11:09 AM EST Narrative Resulting Agency Comment Spec In Lab Kimberly Mondragon MD CHEMISTRY ORDERA BLES Performing Organization Address [facility] de Phone Number [facility] * Hepatitis B Surface Antigen (03/28/2014 10:56 AM EST) Hepatitis B Surface Antigen Negative Negative [facility] Blood specimen (specimen) 03/28/2014 10:56 AM EST 03/28/2014 11:09 AM EST Narrative Resulting Agency Comment Spec In Lab Kimberly Mondragon MD CHEMISTRY ORDERA BLES Performing Organization Address [facility] de Phone Number [facility] * Hepatitis B Surface Antibody (03/28/2014 10:56 AM EST) Hepatitis B Surface Antibody Negative [facility] Comment: Expected Results: Vaccinated: Positive Unvaccinated: Negative [...] Lab Kimberly Mondragon MD CHEMISTRY ORDERA BLES [facility] * Hepatitis B Core Antibody, Total (03/28/2014 10:56 AM EST) Pathologist [facility] Hepatitis B Core Antibody Negative Negative [facility] Blood specimen (specimen) 03/28/2014 10:56 AM EST 03/28/2014 11:09 AM EST Narrative Resulting Agency Comment Spec In Lab Kimberly Mondragon MD CHEMISTRY ORDERA BLES Performing Organization Address City/[facility]/ZIP Co de Phone Number [facility] * Uric acid (03/28/2014 10:56 AM EST) Pathologist [facility] Uric Acid 3.1 2.5 - 6.5 mg/dL [facility] Blood specimen (specimen) 03/28/2014 10:56 AM EST 03/28/2014 11:09 AM EST Narrative Resulting Agency Comment Spec In Lab Kimberly Mondragon MD CHEMISTRY ORDERA BLES Performing Organization Address [facility] Co de Phone Number [facility] * (ABNORMAL) Immunoglobulins, Quantitative (03/28/2014 10:56 AM EST) Pathologist [facility] Immunoglobulin G 697(L) 700 - 1,600 mg/dL [facility] IgA 26(L) 70 - 400 mg/dL [facility] IgM 432(H) 40 - 230 mg/dL [facility] Blood specimen (specimen) 03/28/2014 10:56 AM EST 03/28/2014 11:09 AM EST Narrative Resulting Agency Comment Spec In Lab Kimberly Mondragon MD CHEMISTRY ORDERA BLEMarkell Performing Organization Address City/[facility]/ZIP Co de Phone Number [facility] * Protein Electrophoresis, serum (03/28/2014 10:56 AM EST) Pathologist [facility] Total Prot Electrophoresis 6.9 6.4 - 8.3 gm/dL [facility] Albumin Electrophoresis 4.57 3.60 - 6.00 [...] MD CHEMISTRY ORDERA BLES Performing Organization Address [facility]/ZIP Co de Phone Number [facility] * (ABNORMAL) Lactate Dehydrogenase (03/28/2014 10:56 AM EST) Pathologist [facility] Lactate Dehydrogenase 430(H) 110 - 220 unit/L [facility] Blood specimen (specimen) 03/28/2014 10:56 AM EST 03/28/2014 11:09 AM EST Narrative Resulting Agency Comment Spec In Lab Kimberly Mondragon MD CHEMISTRY ORDERA BLES Performing Organization Address [facility]/ZIP Co de Phone Number [facility] * (ABNORMAL) Comprehensive metabolic panel (non-fasting) (03/28/2014 10:56 AM EST) Pathologist [facility] Glucose 88 60 - 199 mg/dL [facility] MILLENNIUM Comment:Diabetes: >=200 mg/d L plus symptoms Blood Urea Nitrogen 24(H) 8 - 18 mg/dL [facility] Creatinine 0.64(L) 0.70 - 1.20 mg/dL [facility] Comment: Please note that the pediatric reference intervals supplied above were not validated at [facility]. Results from pediatric patients should be interpreted [...] the following links into your internet browser. [email or web address] Blood specimen (specimen) 03/28/2014 10:56 AM EST 03/28/2014 11:09 AM EST Narrative Resulting Agency Comment Spec In Lab Kimberly Mondragon MD CHEMISTRY ORDERA BLES [facility] documented in this encounter Visit Diagnoses Diagnosis Lymphoma Other malignant lymphomas, unspecified site, extranodal and solid organ sites documented in this encounter Care Teams Ignition Expert Relationship Specialty Start Date End Date Mellissa Gonsales MD PCP - General 03/21/14 04/07/14 documented as of this encounter
--- OUTSIDE RECORDS SUMMARY | 2023-10-28 00:50 | XMS_ITS | Encounter Summary ---
Author Organization [facility] Address [facility] [place] [address] Care Team Providers Care Z Os Mainframe Systems Programmer Name Role Phone Michelle Hall MD Primary Care Provider [phone] Encounter Details Date Type Department Care Team (Late st Contact Info) Description 02/28/2012 Ancillary Procedure [place] [address] Belén Griffin MD [address] [place] [address] [address] [place], [place] [address] Social History Tobacco Use Types Packs/Day Years [...] EDT Office Visit Dermatology at [facility] [address] [place] [phone] Juan F Chappell MD [facility] DR [place] [address] documented as of this encounter Procedures Procedure Name Priority Date/Time Associated Diagnosis Comments FILM LIBRARY STORAGE ONLY MAMMO Routine 02/28/2012 12:00 AM EST documented in this encounter Results * Film Library- Storage Only Mammo (02/28/2012 12:00 AM EST) Narrative RAD - 03/19/2021 12:49 PM EST This exam is auto-finalizing. It's purpose is for storage only. Belén Griffin MD [facility] FILM LIBRARY ORD ERABLES [place], [place] documented in this encounter Visit Diagnoses Not on filedocumented in this encounter Care Teams Z Os Mainframe Systems Programmer Relationship Specialty Start Date End Date Michelle Hall MD [address] [place] [address] PCP - General 01/06/10 03/18/14 documented as of this encounter
--- OUTSIDE RECORDS SUMMARY | 2023-10-28 00:50 | XMS_ITS | Encounter Summary ---
Author Organization [facility] Address [facility] [place] [address] Care Team Providers Care Stitch Bonding Machine Drawer In Name Role Phone Michelle Hall MD Primary Care Provider Encounter Details Date Type Department Care Team (Late st Contact Info) Description 02/09/2011 Ancillary Procedure [place] [address] Belén Griffin MD [address] [place] [address] [address] [place], [place] [address] Social History Tobacco Use Types Packs/Day Years [...] Visit Dermatology at [facility] [address] [place] [phone] Juan F Chappell MD [facility] DR [address]DE[address] [place] [address] documented as of this encounter Procedures Procedure Name Priority Date/Time Associated Diagnosis Comments FILM LIBRARY STORAGE ONLY MAMMO Routine 02/09/2011 12:00 AM EST documented in this encounter Results * Film Library- Storage Only Mammo (02/09/2011 12:00 AM EST) Narrative RAD - 03/19/2021 12:50 PM EST This exam is auto-finalizing. It's purpose is for storage only. Belén Griffin MD [facility] FILM LIBRARY ORD ERABLES [place], [place] documented in this encounter Visit Diagnoses Not on filedocumented in this encounter Care Teams Stitch Bonding Machine Drawer In Relationship Specialty Start Date End Date Michelle Hall MD [address] [place] [address] PCP - General 01/06/10 03/18/14 documented as of this encounter
--- OUTSIDE RECORDS SUMMARY | 2023-10-28 00:50 | XMS_ITS | Encounter Summary ---
Author Organization [facility] Address [address] [place] [address] Care Team Providers Care Refinery Operator Polymerization Plant Name Role Phone Unavailable Primary Care Provider Unavailabl e Encounter Details Date Type Department Care Team (Late st Contact Info) Description 12/30/2010 Results Only [facility] Laboratory Services - [facility] ([facility] [address] [place], [place] [address] Michelle Saba MD [address] [place], [place] [id number] Social History Tobacco Use Types Packs/Day Years [...] Diagnosis Comments PAP TEST- RESULT ONLY Routine 12/30/2010 0:00 EST documented in this encounter Results * PAP TEST- RESULT ONLY (12/30/2010 0:00 EST) Pathology Report: CYTOPATHOLOGY REPORT Reports generated via electronic interface contain original data; however they are lacking the format of the original report. Caution should be taken when reading/interpreti ng unformatted reports. Name: ? LUIS FERNANDO VIVAS ? Accession #: ? [id number] ? : ? 1950 (Age: 60) ??F ?Collect Date: ? 12/30/2010 ? Location: ? [facility] ? Receive Date: ? 12/31/2010 ? Provider: MICHELLE SABA MD Copy to: ? Final Report SPECIMEN ADEQUACY ? Satisfactory for Evaluation - transformation zone component present GENERAL CATEGORIZATION ? Negative for Intraepithelial Lesion or Malignancy ?? Menstural/Pregnanc y Status: ??Post Menopausal Specimen/Source: ??Pap Test, Cervix/Endocervix, ThinPrep Imaging System with manual evaluation Document reviewed and electronically signed by: ? Emily Cash, CT(ASCP) ? Report ??Date: 01/06/2011 11:42 HPV with Pap Test ? Date Ordered: ? 01/06/2011 ? Status: ?? Signed Out ?Date Complete: ? 01/11/2011 ? By: ??System Interface ? Date Reported: ? 01/11/2011 ? Interpretation RESULT: Negative for HPV types 16, 18, 31, 33, 35, 39, 45, 51, 52, 56, 58, 59, and 68. Comments Document reviewed and electronically signed by: ? System Interface ? Report date: 01/11/2011 By the signature above, the attending physician certifies that he/she has personally conducted a gross and/or microscopic examination of the described specimens and rendered or confirmed the above diagnosis. End of Report [facility] 12/30/2010 12/31/2010 Michelle Saba MD PATHOLOGY ORDERABLES Performing Organization Address City/State/[facility] Co de Phone Number [facility] [address] [place] [address] documented in this encounter Visit Diagnoses Not on filedocumented in this encounter
--- OUTSIDE RECORDS SUMMARY | 2023-10-28 00:50 | XMS_ITS | Encounter Summary ---
Author Organization [facility] Address [facility] [place] [address] Care Team Providers Care Mat Gauger Name Role Phone Mellissa Gonsales MD Primary Care Provider Encounter Details Date Type Department Care Team (Late st Contact Info) Description 03/28/2014 10:41 AM EST - 03/28/2014 11:59 PM [facility] Hospital Encounter [place] [phone] Kimberly Mondragon MD [facility] DR [place] [address] Discharge Disposition: Home Social History Tobacco Use Types Packs/Day Years Used Date Smoking Tobacco: Never Sex and Gender Information Value Date Recorded Sex Assigned at Not on file Gender Identity Not on file Sexual Orientation Not on file documented as of this encounter Medications at Time of Discharge Medication Sig Dispensed Refills Start Date End Date [place]-3 Fatty Acids-Vitamin E (FISH OIL) 1,000 mg [...] [facility] [address] [place] [address] Juan F Chappell MD [facility] DR RANDE[place] [address] documented as of this encounter Visit Diagnoses Not on filedocumented in this encounter Care Teams Mat Gauger Relationship Specialty Start Date End Date Mellissa Gonsales MD PCP - General 03/21/14 04/07/14 documented as of this encounter
--- OUTSIDE RECORDS SUMMARY | 2023-10-28 00:50 | XMS_ITS | Encounter Summary ---
Author Organization [facility] Address [facility] [place] [address] Care Team Providers Care Laboratory Clerk Name Role Phone Mellissa Gonsales MD Primary Care Provider [phone] Encounter Details Date Type Department Care Team (Late st Contact Info) Description 03/29/2014 8:21 AM EST - 03/29/2014 11:06 AM EST Hospital Encounter [place] [id number] Kimberly Velez MD [facility] [address] [place] [address] Discharge Disposition: Home Social History Tobacco Use Types Packs/Day Years Used Date Smoking Tobacco: Never Sex and Gender Information Value Date Recorded Sex Assigned at Not on file Gender Identity Not on file Sexual Orientation Not on file documented as of this encounter Last Filed Vital Signs Vital Sign Reading Time Taken Comments Blood Pressure 113/67 03/29/2014 10:25 AM EST Pulse 83 03/29/2014 10:25 AM EST Temperature 36.5 ??C (97.7 ??F) 03/29/2014 8:42 AM ES T Respiratory Rate 16 03/29/2014 10:25 AM EST Oxygen Saturation 96% 03/29/2014 10:25 AM EST Inhaled Oxygen Concentration - - Weight 65.8 kg (145 lb) 03/29/2014 8:42 AM EST Height 158.8 cm (5' 2.52) 03/29/2014 8:42 AM ES T Body Mass Index 26.08 03/29/2014 8:42 AM EST documented in this encounter Discharge Instructions * Discharge Instructions* Mayra White I, RN - 03/29/2014 9:01 AM EST OUTPATIENT SURGERY POST-OPERATIVE INSTRUCTIONS BONE [...] 5pm or on a weekend: Call the [facility] adjusto writer operator at and ask for the physician cash on delivery clerk covering for your doctor. Instructions following sedation [...] drainage occurs, please contact your M. D. [facility] [address] ??? [place] [address] ??? [phone] ??? [email or web address] ??? [facility] ??? [facility] ??? [facility] documented in this encounter Medications at Time of Discharge Medication Sig Dispensed Refills Start Date End Date [place]-3 Fatty Acids-Vitamin E (FISH OIL) 1,000 mg [...] as of this encounter H&P Notes * Brittaney Buenrostro APRN - 03/29/2014 9:34 AM EST Pre-Sedation Assessment: Planned procedure: Unilateral bone marrow biopsy and aspiration Indications: work up DLBCL Diagnosis: DLBCL Assessment: Cardiovascular: Rhythm: Regular Rate: Normal Pulmonary: Breath sounds clear to auscultation ASA: 2: Patient with mild systemic disease Mallampati: I: soft palate, fauces, tonsillar pillars and uvula can be seen H&P reviewed: Yes Relevant diagnostic studies: N/A Confirm NPO status: Yes, Date and Time of last intake: sips OJ at 5am History of anesthetic complications: No Current medications reviewed: Yes Allergies reviewed: Yes Alcohol use: rare, Date and Time of last drink: over 2 weeks ago Drug use: no Sedation Plan: moderate (conscious sedation) The sedation plan, its benefits and risks, and alternatives were discussed with the patient. The planned procedure, its benefits and risks, and alternatives were discussed with the patient. The patient consented to the procedure. Discharge to: home documented in this encounter Procedure Notes * Brittaney Buenrostro APRN - 03/29/2014 10:09 AM EST BONE MARROW BIOPSY AND ASPIRATION PROCEDURE NOTE Bone Marrow Biopsy & Aspiration with Conscious Sedation - Unilateral Date/Time of Procedure: 03/29/14 at 1005 Proceduralist: Brittaney Buenrostro APRN DIAGNOSIS: DBCL Prior to start of procedure the following is verified in a TIME OUT: (x) Patient identity (x) Planned procedure (x) Safety concerns IV ACCESS: Per sedation RN PAIN INTERVENTION: Per sedation RN Sterile Condition: Chlorohexidine/betadine was used to sterilize the area. Sterile drapes were usedto create a sterile field. Local Anesthesia: 1% Lidocaine 15 cc's. PROCEDURE: A bone marrow biopsy and aspiration was performed on the right posterior iliac crest. Pressure applied to site(s) for at least 20 minutes following the procedure and Tegaderm placed. Estimated Blood Loss: minimal Complications: none POST INTERVENTION CARE & PAIN ASSESSMENT: Per [facility] nurses. Follow-up: Written/Verbal instructions for site care given to patient per [facility] nurses. Follow-up with Physician as instructed. documented in this encounter Plan of Treatment Upcoming Encounters Date Type Department Care Team (Late st Contact Info) Description 12/07/2023 12:00 PM EDT Office Visit Dermatology at [facility] [address] [place] [address] Juan F Chappell MD [facility] [address] [place] [address] documented as of this encounter Procedures Procedure Name Priority Date/Time Associated Diagnosis Comments CHROMO ACQUIRED PRELIM REPORT Routine 03/29/2014 1:03 PM EST CHROMO REPORT ACQUIRED Routine 5 1:03 PM EST BONE MARROW FLOW CYTOMETRY REPORT Routine 03/29/2014 10:58 AM EST BONE MARROW FINAL REPORT Routine 015 10:58 AM EST IMMUNOPHENOTYPING FLOW CYTOMETRY (BLOOD) Routine 03/29/2014 10:13 AM EST IRON STAIN, BONE MARROW Routine 03/29/19 15 10:13 AM EST BONE MARROW PANEL (MC/CGP/APD) Routine 03/29/2014 10:13 AM EST ([facility] MSURG) BONE MARROW BIOPSY; DIAGNOSTIC (WRVU 1.28) 03/29/2014 9:56 AM EST DLBCL- staging ([facility] MSURG) BONE MARROW ASP PERFORMED W/BX THRU BX INCISION (WRVU 0.16) 03/29/2014 9:56 AM EST DLBCL- staging ([facility] MSURG)BONE MARROW ASP PERFORMED W/BX THRU BX INCISION Routine 03/29/2014 8:36 AM EST ([facility] MSURG) BONE MARROW BIOPSY; DIAGNOSTIC Routine 03/29/2014 8:36 AM EST documented in this encounter Results * chromo report acquired (03/29/2014 1:03 PM EST) Cytogenetics Acquired Report Final Report [id number] ---Clinical Information--- Indication for Study: Lymphoma Specimen: ? Bone Marrow Accession: ?[id number] Collection Date/Time: 03/29/2014 10:13 Received Date/Time: ?? 03/29/2014 13:23 ---Preparation--- 24 and 48 hour short term cultures Banding Method: ??G-banding ? Interphase FISH Banding Level: 400-450 bands ---Analysis--- Total Cultures Analyzed: ??2 Total Metaphase Cells Counted: ??31 Total Metaphase Cells Analyzed: ??20 Total Metaphase Cells Karyotyped: ??3 ---Karyotype--- 46,XX[20].nuc babar(BCL6x2)[220],( D8Z2,MYC,IGH)x2[20 3],(MYCx2)[201],(B CL2x2)[206] ---Interpretation- -- Cytogenetic analysis of the bone marrow revealed a normal female karyotype of 46,XX. No clonal abnormalities were observed. FISH results (aggressive lymphoma panel) (04/02/2014): NO EVIDENCE of BCL6/3q27 rearrangement, MYC/IGH/t(8;14), MYC/8q24 rearrangement, or BCL2/18q21 rearrangement. Interphase FISH analysis using the dual-color, break-apart BCL6/3q27 rearrangement probe ([employer] showed a signal pattern consistent with rearrangement in 0% of 220 cells scored. This was within the normal limits (0-3.5%). Thus, there was no evidence of BCL6 rearrangement. Interphase FISH analysis using dual-color, dual-fusion probe for the MYC/IGH/t(8;14)(q2 4;q32) ([employer] revealed a signal pattern consistent with MYC/IGH/t(8;14) in 0% of 203 cells analyzed. This was within the normal limits (<1.0%). Therefore, there was no evidence of MYC/IGH/t(8;14). Moreover, iInterphase FISH analysis using the dual-color, break-apart MYC/8q24 rearrangement probe ([employer] showed a signal pattern consistent with MYC rearrangement in 1.0% of 201 cells scored. This was within the normal limits (0-3.5%). Thus, there was no evidence of MYC rearrangement. Interphase FISH analysis using the dual-color, break-apart BCL2/18q21 rearrangement probe ([employer] showed a signal pattern consistent with BCL2 rearrangement in 0.5% of 206 cells scored. This was within the normal limits (0-3.5%). Thus, there was no evidence of BCL2 rearrangement. ---Recommendation- -- Correlation with clinical and pathological studies is suggested. ---Disclaimer--- The FISH tests were developed and their performance characteristics were determined by the [facility] ([facility] Cytogenetics [facility] as required by CLIA? 88 regulations. They have not been cleared or approved for specific uses by the U.S. Food and Drug Administration (FDA). The FDA has determined that such clearance or approve is not necessary. These tests are used for clinical purposes. They should not be regarded as investigational or for research. Pursuant to the requirements of CLIA? 88, this laboratory has established and verified the test? s accuracy and precision. The [facility] is certified under the CLIA? 88 as qualified to perform high complexity clinical laboratory testing. 04.09.14 (Electronic Signature) Verified By: Rajeev MANN, Ph.D., [facility] Director, Cytogenetics [facility] 03/29/2014 1:03 PM EST Kimberly Velez MD HEMATOLOGY ORDER [facility] * chromo acquired prelim report (03/29/2014 1:03 PM EST) [facility] Cytogenetics Acquired Prelim Preliminary Report Aggressive Lymphoma FISH Panel [id number] ---Clinical Information--- Indication for Study: Lymphoma Specimen: ? Bone Marrow Accession: ?[id number] Collection Date/Time: 03/29/2014 10:13 Received Date/Time: ?? 03/29/2014 13:23 ---Preparation--- 24 and 48 hour short term cultures Banding Method: ? Interphase FISH ---Analysis--- Total Cultures Analyzed: Total Metaphase Cells Counted: Total Metaphase Cells Analyzed: Total Metaphase Cells Karyotyped: ---Karyotype--- nuc babar(BCL6x2)[220],( D8Z2,MYC,IGH)x2[20 3],(MYCx2)[201],(B CL2x2)[206] ---Interpretation- -- FISH results (aggressive lymphoma panel) (04/02/2014): NO EVIDENCE of BCL6/3q27 rearrangement, MYC/IGH/t(8;14), MYC/8q24 rearrangement, or BCL2/18q21 rearrangement. Interphase FISH analysis using the dual-color, break-apart BCL6/3q27 rearrangement probe ([employer] showed a signal pattern consistent with rearrangement in 0% of 220 cells scored. This was within the normal limits (0-3.5%). Thus, there was no evidence of BCL6 rearrangement. Interphase FISH analysis using dual-color, dual-fusion probe for the MYC/IGH/t(8;14)(q2 4;q32) ([employer] revealed a signal pattern consistent with MYC/IGH/t(8;14) in 0% of 203 cells analyzed. This was within the normal limits (<1.0%). Therefore, there was no evidence of MYC/IGH/t(8;14). Moreover, iInterphase FISH analysis using the dual-color, break-apart MYC/8q24 rearrangement probe ([employer] showed a signal pattern consistent with MYC rearrangement in 1.0% of 201 cells scored. This was within the normal limits (0-3.5%). Thus, there was no evidence of MYC rearrangement. Interphase FISH analysis using the dual-color, break-apart BCL2/18q21 rearrangement probe ([employer] showed a signal pattern consistent with BCL2 rearrangement in 0.5% of 206 cells scored. This was within the normal limits (0-3.5%). Thus, there was no evidence of BCL2 rearrangement. Chromosome study is pending and the result will be issued in the final report. ---Recommendation- -- Correlation with clinical and pathological studies is suggested. ---Disclaimer--- The FISH tests were developed and their performance characteristics were determined by the [facility] ([facility]ogen[facility] as required by CLIA? 88 regulations. They have not been cleared or approved for specific uses by the U.S. Food and Drug Administration (FDA). The FDA has determined that such clearance or approve is not necessary. These tests are used for clinical purposes. They should not be regarded as investigational or for research. Pursuant to the requirements of CLIA? 88, this laboratory has established and verified the test? s accuracy and precision. The [facility] is certified under the CLIA? 88 as qualified to perform high complexity clinical laboratory testing. 04.02.15 (Electronic Signature) Verified By: Rajeev MANN, Ph.D., [facility] Director, Cytogenetics [facility] 03/29/2014 1:03 PM EST Kimberly Velez MD HEMATOLOGY ORDER [facility] * Bone Marrow Flow Cytometry Report (03/29/2014 10:58 AM EST) Bone Marrow Flow Cytometry Report ? [facility] ? Provider: ?? KIMBERLY VELEZ Pt. Name: ?? MYRIAM DE SOUZA ?M ? Acc #: ?[id number] ? Pt. ? Col Date: ?? 03/29/2014 ? /Sex: ?1950,(63 years),Female ? Rec Date: ?? 03/29/2014 ? LOC: ?[facility] ? ANALYTICAL CELL PATHOLOGY ? ---Preparation--- ? FCM: [id number] ? [id number] ? bone marrow ? ---Markers--- ? Cells for immunophenotypic analysis were derived from bone marrow. ??CD45 vs ? side scatter gating was utilized to identify a lymphoid analysis region ? that comprises approximately 15-18% of all cells. ? The following markers were assesed: CD2, CD3, CD4, CD5, CD7, CD8, CD10, ? CD19, CD20, CD23, CD38, CD45, CD56, FMC7, kappa light chain and lambda ? light chain. ? ---Interpretation--- ? Diagnosis: Monoclonal, kappa-restricted B-cell lymphoproliferative neoplasm ? (see Comment). ? 04/01/14 ? [facility] ? 04/01/14 Verified by: ? David MANN, Maryellen Roman ? (Electronic Signature) ? ---Comment--- ? The majority of B-cells in this bone marrow aspirate specimen (67% of ? lymphocytes; 12% of total cells) are monoclonal and kappa-restricted with ? the immunophenotype, CD19+ CD20+ CD5- CD10- CD23- FMC7-. CD3+ T-cells in ? the specimen have a mature immunophenotype with an appropriate mixture of ? CD4+ and CD8+ forms (CD4:CD8 approximately 1.5) without aberrant antigen ? loss or expression. The abnormal lymphocytes are small by forward scatter ? criteria (about the size of normal lymphocytes), and no significant large ? cell population is identified. In summary, these immunophenotypic findings ? are consistent with involvement of this bone marrow by a small, monoclonal, ? kappa-restricted B-cell lymphoproliferative neoplasm, and support the ? morphologic impression (see separate report). ? Flow analysis is an ancillary study. A definite diagnosis requires ? correlation with the morphologic features of this process and if necessary, ? correlation with other ancillary studies like immunohistochemistry, enzyme ? cytochemistry and/or cyto/molecular genetics. ? [facility] ? Provider: ?? KIMBERLY VELEZ Pt. Name: ?? MYRIAM DE SOUZA ?M ? Acc #: ?[id number] ? Pt. ? Col Date: ?? 03/29/2014 ? /Sex: ?1950,(63 years),Female ? Rec Date: ?? 03/29/2014 ? LOC: ?[facility] ? This test was developed and its performance characteristics determined by ? the Clinical Flow Cytometry Laboratory at [facility]- ? ANALYTICAL CELL PATHOLOGY ? [facility]. It has not been cleared or [...] perform high complexity clinical laboratory testing. GIBRAN COREAS 03/29/2014 10:5 8 AM EST Kimberly Velez MD PATHOLOGY/CYTOLO GY ORDERABLES [facility] COREAS * Bone Marrow Final Report (03/29/2014 10:58 AM EST) Final Diagnosis [id number] ? Location: [facility] The signing pathologist has (i) examined the relevant preparation(s) for the specimen(s) and (ii) rendered or confirmed the diagnosis(es). . ? Pathology Flow Cytometry Report Preparation FCM: [id number] bone marrow Markers Cells for immunophenotypic analysis were derived from bone marrow. ??CD45 vs side scatter gating was utilized to identify a lymphoid analysis region that comprises approximately 15-18% of all cells. The following markers were assesed: CD2, CD3, CD4, CD5, CD7, CD8, CD10, CD19, CD20, CD23, CD38, CD45, CD56, FMC7, kappa light chain and lambda light chain. Interpretation Diagnosis: Monoclonal, kappa-restricted B-cell lymphoproliferative neoplasm (see Comment). 04/01/14 [facility] 04/01/14 Verified by: ? David MANN, Maryellen Roman ?(Electronic Signature) Comment The majority of B-cells in this bone marrow aspirate specimen (67% of lymphocytes; 12% of total cells) are monoclonal and kappa-restricted with the immunophenotype, CD19+ CD20+ CD5- CD10- CD23- FMC7-. CD3+ T-cells in the specimen have a mature immunophenotype with an appropriate mixture of CD4+ and CD8+ forms (CD4:CD8 approximately 1.5) without aberrant antigen loss or expression. The abnormal lymphocytes are small by forward scatter criteria (about the size of normal lymphocytes), and no significant large cell population is identified. In summary, these immunophenotypic findings are consistent with involvement of this bone marrow by a small, monoclonal, kappa-restricted B-cell lymphoproliferative neoplasm, and support the morphologic impression (see separate report). Flow analysis is an ancillary study. A definite diagnosis requires correlation with the morphologic features of this process and if necessary, correlation with other ancillary studies like immunohistochemistry, enzyme cytochemistry and/or cyto/molecular genetics. This test was developed and its performance characteristics determined by the Clinical Flow Cytometry Laboratory at [facility]. It has not been cleared or approved [...] to perform high complexity clinical laboratory testing. ?Pathology Bone Marrow Final Report Clinical Information Specimen: ? Aspirate and biopsy, right Clinical Diagnosis: ? Diffuse large B-cell lymphoma Indication for Study: ?? Staging marrow . Peripheral Smear The white blood cell count is 7.49K/uL. [...] or abnormal circulating cell populations are appreciated. Bone Marrow Aspirate The bone marrow aspirate is cellular and [...] No increase in ringed sideroblasts is appreciated. Differential Not performed. Enzyme Cytochemistry N/A Bone Marrow Biopsy and/or Clot The decalcified bone marrow biopsy specimen consists [...] The bony trabeculae appear normal for age. Diagnosis ?? 1. ??Morphologically atypical lymphocyte population, peripheral blood. ?? 2. ??Normocellular marrow with maturing trilineage hematopoiesis and involvement ?(10-15%) by low-grade B-cell lymphoproliferative neoplasm. ?? 3. ??No morphologic evidence for blood or marrow involvement by large B-cell ?lymphoma (see Comment). 03/30/14 [facility] 04/01/14 Verified by: ? David MANN, Maryellen Roman ?(Electronic Signature) The attending pathologist whose signature appears on this report has reviewed all diagnostic slides and has edited the gross and/or microscopic portion of the report in rendering the final pathologic diagnosis. Comment Flow cytometry immunophenotype analysis was performed concurrently on the bone marrow aspirate (see separate report) and identified a monoclonal, kappa-restricted B-cell population with the immunophenotype, CD19+ CD20+ CD5- CD10- CD23- FMC7-. In summary, these morphologic and immunophenotypic findings are consistent with involvement of . Comment the marrow by a B-cell lymphoproliferative neoplasm that likely reflects a low-grade component of the previously diagnosed diffuse large B-cell lymphoma (see [id number]). There is no morphologic evidence for involvement of the marrow by the large cell component. Available data suggest that discordant involvement of the bone marrow by B-cell lymphoma as seen in this case is not independently associated with adverse prognosis apart from IPI score (Sanders ? et al., Blood ??2007;110:9921-0748 AND Lola ?e al., J Clin Oncol ??2011;29:9510-7011). The specimen has been submitted for karyotyping and the results will be reported separately when available. 04/01/2014 1:36 PM EST [facility] BONE MARROW STRUCTURE / Unknown 03/29/2014 10:58 AM EST 03/29/2014 10:58 AM EST Narrative Authorizing Provider Result Erum Velez MD PATHOLOGY/CYTOLO GY ORDERABLES Performing Organization Address City/[facility]/ZIP Co de Phone Number GIBRAN DEWAYNETREVON [facility] [place] [address] * Immunophenotyping Flow Cytometry (03/29/2014 10:13 AM EST) Immunophenotyping Flow See Comment GIBRAN DEWAYNEENNIUM Comment: When completed by the Pathologist, the Flow Cytometry Report ([id number])) will display under the Pathology Results section within [facility]. Bone marrow specimen (specimen) 03/29/2014 10:13 AM EST 03/29/2014 10:56 AM EST Narrative Resulting Agency Comment Spec In Lab Kimberly Velez MD HEMATOLOGY ORDER [facility] Performing Organization Address City/[facility]/ZIP Co de Phone Number GIBRAN LYUDMILA * Iron Stain, Bone Marrow (03/29/2014 10:13 AM EST) Bone Marrow Iron Stain See Comment GIBRAN GEEIUM Comment:See Bone Marrow Repo rt [id number] under Hematopathology Reports. Bone marrow specimen (specimen) 03/29/2014 10:13 AM EST 03/29/2014 10:56 AM EST Narrative Resulting Agency Comment Spec In Lab Kimberly Velez MD HEMATOLOGY ORDER [facility] Performing Organization Address City/[facility]/ZIP Co de Phone Number GIBRAN COREAS documented in this encounter Visit Diagnoses Not on filedocumented in this encounter Administered Medications Inactive Administered Medications - up to 3 most recent administrations Medication Order MAR Action Action Date Dose Rate Site fentaNYL 50mcg/mL injection 25 mcg, Intravenous, EVERY 5 MIN PRN, Starting on Tue03/29/14 at 0851, Until Tue03/29/14 at 1515, Pain, Administer every 5 minutes to achieve pain scale 1-3. Hold for respiratory rate less than 8 breaths per minute. Dose not to exceed 200 mcg., Intra-Operative (Intra-Procedure), Routine Given 03/29/2014 9:59 AM EST 25 mcg midazolam (PF) (VERSED) 1 mg/mL injection 1 mg 1 mg, Intravenous, EVERY 5 MIN PRN, Starting on Tue03/29/14 at 0851, Until Tue03/29/14 at 1515, Sleep, Anxiety, Administer every 5 minutes to achieve RASS (-)1. Hold for delirium/agitation. Dose not to exceed 5 mg., Intra-Operative (Intra-Procedure), Routine Given 03/29/2014 9:58 AM EST 1 mg Given 03/29/2014 9:52 AM EST 1 mg documented in this encounter Active and Recently Administered Medications Times are shown in EST. PRN Medication Order 03/27/2014 03/28/2014 03/29/2014 fentaNYL 50mcg/mL injection (CANCELED) 25 mcg, Intravenous, EVERY 5 MIN PRN, Starting on Tue03/29/14 at 0851, Until Tue03/29/14 at 1515, Pain, Administer every 5 minutes to achieve pain scale 1-3. Hold for respiratory rate less than 8 breaths per minute. Dose not to exceed 200 mcg., Intra-Operative (Intra-Procedure), Routine 0959 (Given - Provid er: Mayra Pepe RN - Comment: pre procedure) midazolam (PF) (VERSED) 1 mg/mL injection 1 mg (CANCELED) 1 mg, Intravenous, EVERY 5 MIN PRN, Starting on Tue03/29/14 at 0851, Until Tue03/29/14 at 1515, Sleep, Anxiety, Administer every 5 minutes to achieve RASS (-)1. Hold for delirium/agitation. Dose not to exceed 5 mg., Intra-Operative (Intra-Procedure), Routine 0952 (Given - Provid er: Mayra Pepe RN)0958 (Given - Provider: Mayra Pepe RN) documented in this encounter Care Teams Laboratory Clerk Relationship Specialty Start Date End Date Mellissa Gonsales MD PCP - General 03/21/14 04/07/14 documented as of this encounter
--- OUTSIDE RECORDS SUMMARY | 2023-10-28 00:50 | XMS_ITS | Encounter Summary ---
Author Organization [facility] Address [address] [place] [address] Care Team Providers Care Manager Wholesale Name Role Phone Mellissa Gonsales MD Primary Care Provide r Belén Griffin MD Primary Care Provider [phone] Encounter Details Date Type Department Care Team (Late st Contact Info) Description 05/30/2020 Lab Requisition [facility] Pathology & Laboratory Medicine - [facility] [address] [place] [address] Dana Bateman MD [address] [place] [phone] Encounter for other general examination Social History Tobacco Use Types Packs/Day Years Used Date Smoking Tobacco: Never Assessed Sex and Gender Information Value Date Recorded Sex Assigned at Not on file Gender Identity Not on file Sexual Orientation Not on file documented as of this encounter Plan of Treatment Not on file documented as of this encounter Procedures Procedure Name Priority Date/Time Associated Diagnosis Comments SURGICAL PATHOLOGY Today 05/30/2020 9: 40 EDT Encounter for other general examination documented in this encounter Results * SURGICAL PATHOLOGY (05/30/2020 9:40 EDT) Final Diagnosis A. SKIN OF EYELID, LEFT LOWER, SHAVE BIOPSY: - Basal cell carcinoma, infiltrative type, involving the biopsy base and peripheral edges. 06/02/2020 9:54 EDT [facility] Attestation By the signature below, the attending physician certifies that they have 1) personally conducted a gross and/or microscopic examination of the described specimen(s), and/or personally interpreted the results of laboratory testing of the described specimen(s), and 2) personally rendered or confirmed the above diagnosis. 06/02/2020 9:54 [facility] at 0954 Clinical History LLL, madarosis and ulceration 06/02/2020 9:54 T [facility] Gross Description A. Received in formalin labelled with proper patient identification (initials H, L) and left lower lid is a shave biopsy of hutton roughened skin (0.5 x 0.3 x 0.2 cm). There is an off center red hemorrhagic eroded area (0.2 x 0.2 cm by less than 0.1 cm in depth). The margin is inked blue. Submitted intact in A1. Librado Ferrell 05/31/2020 8:22 06/02/2020 9:54 EDT [facility] Performing Lab [facility] 06/02/2020 9:54 [facility] Scanned Images 06/02/2020 9:54 [facility] Tissue TISSUE SPECIMEN FROM SKIN / Unknown 05/30/2020 9:40 EDT 05/30/2020 21:00 EDT Dana Bateman MD PATHOLOGY ORDERABL ES Performing Organization Address City/State/[facility] Co de Phone Number [facility] [address] [place] [address] documented in this encounter Visit Diagnoses Diagnosis Encounter for other general examination documented in this encounter Care Teams Manager Wholesale Relationship Specialty Start Date End Date Mellissa Gonsales MD [address] [place] [phone] PCP - General 03/11/14 07/14/20 Belén Griffin MD [address] [place] [address] [address] [place] [address] PCP - General 07/15/20 documented as of this encounter
--- OUTSIDE RECORDS SUMMARY | 2023-10-28 00:50 | XMS_ITS | Encounter Summary ---
Author Organization [facility] Address [facility] [place] [address] Care Team Providers Care Dairy Cattle Farmer Name Role Phone Mellissa Gonsales MD Primary Care Provider Encounter Details Date Type Department Care Team (Late st Contact Info) Description 03/28/2014 11:02 AM EST - 03/28/2014 11:59 PM [facility] Hospital [place] [phone] CLINIC, Kimberly Hanson MD [facility] [place] [address] Lymphoma Discharge Disposition: Home Social History Tobacco Use Types Packs/Day Years Used Date Smoking Tobacco: Never Sex and Gender Information Value Date Recorded Sex Assigned at Not on file Gender Identity Not on file Sexual Orientation Not on file documented as of this encounter Medications at Time of Discharge Medication Sig Dispensed Refills Start Date End Date Palmyra-3 Fatty Acids-Vitamin E (FISH OIL) 1,000 mg [...] [facility] [address] [place] [address] Juan F Chappell MD [facility] DR [place] [address] documented as of this encounter Procedures Procedure Name Priority Date/Time Associated Diagnosis Comments NM PET CT SKULL BASE TO MID-THIGH ([facility]) Routine 03/28/2014 12:45 PM EST Lymphoma documented in this encounter Results * PET/CT [...] for referring this patient to [facility]. Narrative 03/28/2014 4:49 PM EST EXAMINATION: PET/CT STANDARD (Skull base to Mid-thigh) CLINICAL HISTORY: staging lymphoma TECHNIQUE: Following IV injection of 96-jyctch-0-deoxyglucose (FDG) a standard uptake of approximately 60 [...] staging lymphoma TECHNIQUE: Following IV injection of 01-wkdyaf-7-deoxyglucose (FDG) astandard uptake of approximately 60 minutes, [...] for referring this patient to [facility]. Kimberly Mondragon MD IMG PET ORDERABL ES documented in this encounter Visit Diagnoses Diagnosis Lymphoma Other malignant lymphomas, unspecified site, extranodal and solid organ sites documented in this encounter Administered Medications Inactive Administered Medications - up to 3 most recent administrations Medication Order MAR Action Action Date Dose Rate Site iohexol (OMNIPAQUE) 350 mg iodine/mL injection 17,500 mg 17,500 mg (50 mL), Oral, ONCE, 1 dose, On Cece 03/28/14 at 1200, Routine Given 03/28/2014 11:35 AM EST 17,500 mg documented in this encounter Care Teams Dairy Cattle Farmer Relationship Specialty Start Date End Date Mellissa Gonsales MD PCP - General 03/21/14 04/07/14 documented as of this encounter
--- OUTSIDE RECORDS SUMMARY | 2023-10-28 00:50 | XMS_ITS | Encounter Summary ---
Author Organization [facility] Address [facility] [place] [address] Care Team Providers Care Collar Band Creaser Name Role Phone Mellissa Gonsales MD Primary Care Provider Encounter Details Date Type Department Care Team (Late st Contact Info) Description 03/29/2014 9:30 AM EST - 03/29/2014 10:15 AM EST Surgery [facility] [place] [phone] Kimberly Velez MD [facility] [address] [place] [address] ([facility] MSURG) BONE MARROW ASP PERFORMED W/BX [...] Sign Reading Time Taken Comments Blood Pressure 98/65 03/29/2014 10:05 AM EST Pulse 87 03/29/2014 10:05 AM EST Temperature 36.5 ??C (97.7 ??F) 03/29/2014 8:42 AM ES T Respiratory Rate 16 03/29/2014 10:05 AM EST Oxygen Saturation 99% 03/29/2014 10:05 AM EST Inhaled Oxygen Concentration - - [...] 5pm or on a weekend: Call the [facility] winding operator at and ask for the physician case monitor covering for your doctor. Instructions following sedation [...] drainage occurs, please contact your M. D. [facility] [address] ??? [place] [address] ??? [phone] ??? [email or web address] ??? [facility] ??? [facility] ??? [facility] documented in this encounter Medications at Time of Discharge Medication Sig Dispensed Refills Start Date End Date Eagle-3 Fatty Acids-Vitamin E (FISH OIL) 1,000 mg [...] at [facility] [address] [place] [address] Juan F Chappell MD [facility] [address] [place] [address] documented as of this encounter Procedures Procedure [...] chromo report acquired (03/29/2014 1:03 PM EST) [facility] Cytogenetics Acquired Report Final Report [id number] ---Clinical Information--- Indication for Study: Lymphoma Specimen: ? Bone Marrow Accession: ?[id number] Collection Date/Time: 03/29/2014 10:13 Received Date/Time: ?? [...] their performance characteristics were determined by the [facility] ([facility]) Cytogenetics Laboratory as required by [...] the test? s accuracy and precision. The [facility] Cytogenetics Laboratory is certified under the CLIA? 88 as qualified to perform high complexity clinical laboratory testing. 04.09.14 (Electronic Signature) Verified By: Rajeev MANN, Ph.D., Liming Director, Cytogenetics [facility] 03/29/2014 1:03 PM EST Kimberly Velez MD HEMATOLOGY ORDER AYO [facility] * chromo acquired prelim report (03/29/2014 1:03 PM EST) Cytogenetics Acquired Prelim Preliminary Report Aggressive Lymphoma FISH Panel [id number] ---Clinical Information--- Indication for Study: Lymphoma Specimen: ? Bone Marrow Accession: ?[id number] Collection Date/Time: 03/29/2014 10:13 Received Date/Time: ?? [...] their performance characteristics were determined by the [facility] ([facility]) Cytogenetics Laboratory as required by [...] the test? s accuracy and precision. The [facility] Cytogenetics Laboratory is certified under the CLIA? 88 as qualified to perform high complexity clinical laboratory testing. 04.02.14 (Electronic Signature) Verified By: Rajeev MANN, Ph.D., Doctors Hospitaling Director, Cytogenetics [facility] 03/29/2014 1:03 PM EST Kimberly Velez MD HEMATOLOGY ORDER AYO [facility] * Bone Marrow Flow Cytometry Report (03/29/2014 10:58 AM EST) Bone Marrow Flow Cytometry Report ? [facility] ? Provider: ?? KIMBERLY VELEZ Pt. Name: ?? MYRIAM DE SOUZA ?M ? Acc #: ?[id number] ? Pt. ? Col Date: ?? 03/29/2014 ? /Sex: ?1950,(63 years),Female ? Rec Date: ?? 03/29/2014 ? LOC: ?[facility] ? ANALYTICAL CELL PATHOLOGY ? ---Preparation--- ? FCM: [id number] ? [id number] ? bone marrow ? ---Markers--- ? Cells [...] enzyme ? cytochemistry and/or cyto/molecular genetics. ? [facility] ? Provider: ?? KIMBERLY VELEZ Pt. Name: ?? MYRIAM DE SOUZA ?M ? Acc #: ?[id number] ? Pt. ? Col Date: ?? 03/29/2014 ? /Sex: ?1950,(63 years),Female ? Rec Date: ?? 03/29/2014 ? LOC: ?[facility] ? This test was developed and its performance characteristics determined by ? the Clinical Flow Cytometry Laboratory at [facility]- ? ANALYTICAL CELL PATHOLOGY ? [facility]. It has not been cleared [...] to perform high complexity clinical laboratory testing. [facility] 03/29/2014 10:5 8 AM EST Kimberly Velez MD PATHOLOGY/CYTOLO GY ORDERABLES [facility] * Bone Marrow Final Report (03/29/2014 10:58 AM EST) Final Diagnosis [id number] ? Location: [facility] The signing pathologist has (i) examined the relevant preparation(s) for the specimen(s) and (ii) rendered or confirmed the diagnosis(es). . ? Pathology Flow Cytometry Report Preparation FCM: [id number] bone marrow Markers Cells for immunophenotypic analysis [...] kappa-restricted B-cell lymphoproliferative neoplasm (see Comment). 04/01/14 [facility] 04/01/14 Verified by: ? David MANN, [...] by the Clinical Flow Cytometry Laboratory at [facility]. It has not been cleared or [...] 04/01/14 Verified by: ? David MANN, Maryellen Delgadillo. ?(Electronic Signature) The attending pathologist whose signature [...] previously diagnosed diffuse large B-cell lymphoma (see [id number]). There is no morphologic evidence for involvement of the marrow by the large cell component. Available data suggest that discordant involvement of the bone marrow by B-cell lymphoma as seen in this case is not independently associated with adverse prognosis apart from IPI score (Tommy ? et al., Blood ??2007;110:6007-9239 AND Lola ?e al., J Clin Oncol ??2011;29:5772-8471). The specimen has been submitted for karyotyping and the results will be reported separately when available. 04/01/2014 1:36 PM EST [facility] BONE MARROW STRUCTURE / Unknown 03/29/2014 10:58 AM EST 03/29/2014 10:58 AM EST Kimberly Velez MD PATHOLOGY/CYTOLO GY ORDERABLES Performing Organization Address City/[facility]/ZIP Co de Phone Number GIBRAN COREAS [facility] [place] [address] * Immunophenotyping Flow Cytometry (03/29/2014 10:13 AM EST) Immunophenotyping Flow See Comment GIBRAN COREAS Comment: When completed by the Pathologist, the Flow Cytometry Report ([id number])) will display under the Pathology Results section within [facility]. Bone marrow specimen (specimen) 03/29/2014 10:13 AM EST 03/29/2014 10:56 AM EST Narrative Resulting Agency Comment Spec In Lab Kimberly Velez MD HEMATOLOGY ORDER AYO Performing Organization Address City/[facility] Co de Phone Number GIBRAN DEWAYNE[facility] * Iron Stain, Bone Marrow (03/29/2014 10:13 AM EST) Bone Marrow Iron Stain See Comment GIBRAN COREAS Comment:See Bone Marrow Repo rt [id number] under Hematopathology Reports. Bone marrow specimen (specimen) 03/29/2014 10:13 AM EST 03/29/2014 10:56 AM EST Narrative Resulting Agency Comment Spec In Lab Kimberly Velez MD HEMATOLOGY ORDER AYO Performing Organization Address City/[facility] Co de Phone Number GIBRAN COREAS documented [...] to exceed 5 mg., Intra-Operative (Intra-Procedure), Routine 09 (Given - Provid er: Mayra Pepe RN)0958 (Given - Provider: Mayra Pepe RN) documented in this encounter Care Teams Collar Band Creaser Relationship Specialty Start Date End Date Mellissa Gonsales MD PCP - General 03/21/14 04/07/14 documented as of this encounter
--- OUTSIDE RECORDS SUMMARY | 2023-10-28 00:50 | XMS_ITS | Encounter Summary ---
Author Organization [facility] Address [facility] [place] [address] Care Team Providers Care Marketing Lead Name Role Phone Unknown Primary Care Provider Unavailabl e Encounter Details Date Type Department Care Team (Latest Contact Info) Description 03/19/2014 5:04 PM EST - 03/19/2014 11:59 PM EST [place] [address] Mario Ward MD [address] [place] [id number] Discharge Disposition: Home Social History Tobacco Use Types Packs/Day Years Used Date Smoking Tobacco: Never Assessed Sex and Gender Information Value Date Recorded Sex Assigned at Not on file Gender Identity Not on file Sexual Orientation Not on file documented as of this encounter Medications at Time of Discharge Medication Sig Dispensed Refills Start Date End Date escitalopram (LEXAPRO) 10 mg tablet 03/0801/03/2015 documented as of this encounter Plan of Treatment Upcoming Encounters Date Type Department Care Team (Late st Contact Info) Description 12/07/2023 12:00 PM EDT Office Visit Dermatology at [facility] [address] [place] [address] Juan F Chappell MD [facility] DR [place] [address] documented as of this encounter Procedures Procedure Name Priority Date/Time Associated Diagnosis Comments CHEMOTHERAPY SCAN 01/07/2015 12: 00 AM EST SURGICAL PATHOLOGY REPORT Routine 03/19/2014 10:03 AM EST documented in this encounter Results * SCAN DOC: CHEMOTHERAPY (01/07/2015 12:00 AM EST) Scanning Provider MEDIA MGR SCAN EXT O RDR/RSLT * Surgical Pathology Report (03/19/2014 10:03 AM EST) Final Diagnosis ? [facility] ? Provider: ?? MARIO WARD ?Pt. Name: ?? MYRIAM VIVAS ? Acc #: ?[id number] ?Pt. ? Col Date: ?? 03/19/2014 ?/Sex: ?1950,(63 years),Female ? Rec Date: ?? 03/20/2014 ?LOC: ?OPW ? SURGICAL PATHOLOGY ? ---Pathologic Diagnosis--- ? CONSULTATION CASE ? Outside slides labeled [id number], collection date 03/08/2014. ? A - Lymph node, left axilla, excision: ? - Diffuse large B-cell lymphoma (see Comment). ? 03/20/14 ? LLW ? 03/23/14 Verified by: ? Maryellen Hernandez MD ? (Electronic Signature) ? The attending pathologist whose signature appears on this report has ? reviewed all diagnostic slides and has edited the gross and/or ? microscopic portion of the report in rendering the final pathologic ? diagnosis. ? ---Comment--- ? Sections of this lymph node show diffuse and vaguely nodular infiltration ? by an abnormal lymphoid population that completely obliterates normal lymph ? node architecture with fatty infiltration of the medullary aspect. The ? infiltrate consists of abnormal large lymphoid cells with large irregular, ? often polylobated, nuclei, vesicular nuclear chromatin and prominent, often ? multiple, peripherally located nucleoli. Cytoplasm is moderate to abundant. ? Immunoblasts with prominent central nucleoli are seen throughout, and ? admixed to the neoplastic cell population are frequent mitotic figures, ? apoptotic bodies and small lymphocytes. The provided immunohistochemical ? stains show the malignant cells to be CD20+ CD10- and BCL6+. The CD21 and ? D2-40 stains highlight the scant remnants of follicular dendritic networks, ? though some of the neoplastic cells also appear to be CD21+. ??The stain for ? CD3 highlights a brisk infiltration of small reactive T-cells admixed to ? the B-cell tumor. The proliferative index in the large cells is estimated ? at approximately 50-60%, based on the MIB1 (Ki67) staining pattern. The ? accompanying report from the referring institution indicates that flow ? cytometry immunophenotype analysis was performed concurrently but failed to ? identify a monoclonal B-cell population. ? In summary, these morphologic and immunohistochemical findings are ? consistent with involvement of this lymph node by diffuse large B-cell ? lymphoma. No tissue block was provided with the slides, and delineation of ? the origin of this lesion (i.e., germinal center vs post-germinal center) ? is not possible with the provided immunostains. If clinically appropriate ? and further evaluation of this material ? [facility] ? Provider: ?? MARIO WARD ?Pt. Name: ?? MYRIAM VIVAS ? Acc #: ?[id number] ?Pt. ? Col Date: ?? 03/19/2014 ?/Sex: ?1950,(63 years),Female ? Rec Date: ?? 03/20/2014 ?LOC: ?[facility] ? SURGICAL PATHOLOGY ? is desired (e.g., cell of origin, BCL2/MYC/BCL6 translocation analysis), ? tissue block #1 could be requested from the referring institution and ? additional studies performed at . ? ---Frozen Section Diagnosis--- ? N/A ? ---Microscopic Description--- ? See below. ? ---Gross Description--- ? ([facility]) pathology slide(s) are ? reviewed. ??Refer to Diagnosis and Specimen Submitted for specific case ? information. ? For the full text of the [facility] report(s) please refer to Non- ? Documentation Pathology in the electronic health record (eDH). ? ---Clinical Information--- ? Specimen Submitted: ? CONSULTATION CASE ? A - 9 slides labeled [id number], collection date 03/08/2014. ? [id number] ? Report to: ? Surgical Pathology Department ? [facility], 2nd Floor ? [address] ? [place], [place] ??[address] ? 03/23/2014 12:21 PM EST [facility] Consult Case 03/19/2014 10:0 3 AM EST 03/19/2014 10:03 AM EST Mario Ward MD PATHOLOGY/CYTOLOGY O ERUM Performing Organization Address City/State/[facility] Co de Phone Number [facility] [place] [address] documented in this encounter Visit Diagnoses Not on filedocumented in this encounter Care Teams Marketing Lead Relationship Specialty Start Date End Date Unknown None PCP - General 03/19/14 03/20/14 documented as of this encounter
--- OUTSIDE RECORDS SUMMARY | 2023-10-28 00:50 | XMS_ITS | Encounter Summary ---
Author Organization [facility] Address [address] [place] [address] Care Team Providers Care Barrel Polisher Inside Name Role Phone Belén Griffin MD Primary Care Provider [phone] Encounter Details Date Type Department Care Team (Late st Contact Info) Description 10/21/2023 Lab Requisition [facility] Pathology & Laboratory Medicine - [address] [address] Outr Resulting Lab, Provider Social History Tobacco [...] Procedure Name Priority Date/Time Associated Diagnosis Comments RHEUMATOID FACTOR Routine 10/21/2023 7:3 0 EDT ANTI NUCLEAR AB (MARYA), IFA Routine 10/21/2023 7:30 EDT documented in this encounter Results * RHEUMATOID FACTOR (10/21/2023 7:30 EDT) Rheumatoid Factor <8.6 <12.0 IU/mL 10/21/2023 18:11 EDT [facility] Blood VENOUS BLOOD / Unknown 10/21/2023 7:30 EDT 10/21/2023 17:52 EDT Provider Outr Resulting Lab CHEMISTRY & BLOOD GAS ORDERABLES Performing Organization Address City/[facility]/ZIP Co de Phone Number [facility] [address] [place], [place] [address] * (ABNORMAL) ANTI NUCLEAR AB (MARYA), IFA (10/21/2023 7:30 EDT) MARYA Interpretation Positive(A) Negative 10/24/2023 13:35 EDT [facility] Comment: For titers greater than [...] 1:320 Dense Fine Speckled 10/24/2023 13:35 EDT [facility] Blood VENOUS BLOOD / Unknown 10/21/2023 7:30 EDT 10/21/2023 17:52 EDT Narrative [facility] - 10/24/2023 13:35 EDT Results were obtained with the Fiestah[employer] NOVA Lite HEp-2 MARYA Kit by indirect immunofluorescence. Provider Outr Resulting Lab IMMUNOLOGY A ND SEROLOGY ORDERABLES Performing Organization Address City/[facility]/ZIP Co de Phone Number [facility] [address] [place] [phone] documented in this encounter Visit Diagnoses Not on filedocumented in this encounter Care Teams Barrel Polisher Inside Relationship Specialty Start Date End Date Belén Griffin MD [address] [place] [address] PCP - General 07/15/20 documented as of this encounter
--- OUTSIDE RECORDS SUMMARY | 2023-10-28 00:50 | XMS_ITS | Encounter Summary ---
Author Organization [facility] Address [address] [place] [address] Care Team Providers Care Oil Well Service Unit Operator Name Role Phone Unavailable Primary Care Provider Unavailabl e Encounter Details Date Type Department Care Team (Late st Contact Info) Description 05/15/2007 Results Only [facility] - Maple conversion [address] [place] [address] Michelle Saba MD [address] [place], [place] [phone] Social History Tobacco Use Types Packs/Day Years Used Date Smoking Tobacco: Never Assessed Sex and Gender Information Value Date Recorded Sex Assigned at Not on file Gender Identity Not on file Sexual Orientation Not on file documented as of this encounter Plan of Treatment Not on file documented as of this encounter Procedures Procedure Name Priority Date/Time Associated Diagnosis Comments CYTOPATHOLOGY Routine 05/15/2007 0:00 EDT documented in this encounter Results * CYTOPATHOLOGY (05/15/2007 0:00 EDT) Pathology Report: CYTOPATHOLOGY REPORT Reports generated via electronic interface contain original data; however they are lacking the format of the original report. Caution should be taken when reading/interpreti ng unformatted reports. Name: ? MARSHALLERNESTINALUIS FERNANDO ? Accession #: ? [id number] : ? 1950 (Age: 56) ??F ?Collect Date: ? 05/15/2007 Location: ? [facility] ? Receive Date: ? 05/17/2007 Provider: ?MICHELLE SABA MD Copy to: ? Specimen/Source: ?ThinPrep Pap Test, Cervix/Endocervix, processed on [facility] ThinPrep Imaging System, with manual evaluation Last Menstrual Period: ? Other: ? HPVA - HPV testing requested if ASC-US on the current ThinPrep Pap test. ? SPECIMEN ADEQUACY ? Satisfactory for Evaluation - transformation zone component present GENERAL CATEGORIZATION ? Negative for Intraepithelial Lesion or Malignancy ? Document reviewed and electronically signed by: ? FIDELIA Deras(ASCP) ? Report Date: ??05/22/2007 10:35 End of Report LISA AMADOR 05/15/2007 05/17/2007 Michelle Saba MD PATHOLOGY ORDERABLES LISA AMADOR [address] [place] [address] documented in this encounter Visit Diagnoses Not on filedocumented in this encounter
--- OUTSIDE RECORDS SUMMARY | 2023-10-28 00:50 | XMS_ITS | Encounter Summary ---
Author Organization [facility] Address [address] [place] [address] Care Team Providers Care Media Production Manager Name Role Phone Belén Griffin MD Primary Care Provider Encounter Details Date Type Department Care Team (Late st Contact Info) Description 08/24/2021 Lab Requisition [facility] Pathology & Laboratory Medicine - [address] [address] Outr Resulting Lab, Provider Social History Tobacco [...] Comments ZZCOVID-19 TEST [facility] PCR Today 08/24/2021 8:00 EDT COVID-19 TESTING Routine 08/24/2021 8:00 EDT documented in this encounter Results * COVID-19 TEST [facility] PCR (08/24/2021 8:00 EDT) Swab 08/24/2021 8:00 EDT 08/24/2021 21:25 EDT Provider Outr Resulting Lab MICROBIOLOGY - GENERAL ORDERABLES [facility] [address] [place] [address] * COVID-19 TESTING (08/24/2021 8:00 EDT) COVID-19 rt-PCR Result Negative Negative 08/25/2021 14:35 EDT [facility] Comment: This test has not [...] clinical observations, patient history, and epidemiological information. Testing was performed using the sharon SARS-CoV-2 assay ([employer] on the Sharon 6800 System Performing Lab Sharon 68[address] [facility] 08/25/2021 14:35 EDT [facility] Swab 08/24/2021 8:00 EDT 08/24/2021 21:25 EDT Provider Outr Resulting Lab MICROBIOLOGY - GENERAL ORDERABLES [facility] [address] [place] [address] documented in this encounter Visit Diagnoses Not on filedocumented in this encounter Care Teams Media Production Manager Relationship Specialty Start Date End Date Belén Griffin MD [address] [place] [address] PCP - General 07/15/20 documented as of this encounter
--- OUTSIDE RECORDS SUMMARY | 2023-10-28 00:50 | XMS_ITS | Encounter Summary ---
Author Organization [facility] Address [facility] [place] [address] Care Team Providers Care Director Of Anesthesia Services Name Role Phone Mellissa Gonsales MD Primary Care Provider Encounter Details Date Type Department Care Team (Late st Contact Info) Description 03/20/2014 External [place] [phone] Provider, Scanning Social History Tobacco Use Types Packs/Day Years [...] EDT Office Visit Dermatology at [facility] [address] [place] [address] Juan F Chappell MD [facility] DR RADNEE [place] [address] documented as of this encounter Procedures Procedure Name Priority Date/Time Associated Diagnosis Comments SURGICAL PATHOLOGY SCAN Routine 03/19/2014 documented in this encounter Results * Scan Doc: Surgical Pathology (03/19/2014) Sal Ward MD MEDIA MGR SCAN EXT O RDR/RSLT documented in this encounter Visit Diagnoses Not on filedocumented in this encounter Care Teams Director Of Anesthesia Services Relationship Specialty Start Date End Date Mellissa Gonsales MD PCP - General 03/21/14 04/07/14 documented as of this encounter
--- OUTSIDE RECORDS SUMMARY | 2023-10-28 00:50 | XMS_ITS | Encounter Summary ---
Author Organization [facility] Address [facility] [place] [address] Care Team Providers Care Underbaster Name Role Phone Michelle Hall MD Primary Care Provider Encounter Details Date Type Department Care Team (Late st Contact Info) Description 02/28/2012 12:05 AM EST Ancillary Procedure [place] [address] Belén Griffin MD [address] [place] [address] [address] [place], [place] [address] Social History Tobacco Use Types Packs/Day Years [...] at [facility] [address] [phone] Juan F Chappell MD [facility] [address] [place] [address] documented as of this encounter Procedures Procedure Name Priority Date/Time Associated Diagnosis Comments FILM LIBRARY-STORAGE ONLY US BREAST Routine 02/28/2012 12:05 AM EST documented in this encounter Results * Film Library Storage Only US Breast (02/28/2012 12:05 AM EST) Narrative RAD - 03/19/2021 12:49 PM EST This exam is auto-finalizing. It's purpose is for storage only. Belén Griffin MD [facility] FILM LIBRARY ORD ERABLES [place], [place] documented in this encounter Visit Diagnoses Not on filedocumented in this encounter Care Teams Underbaster Relationship Specialty Start Date End Date Michelle Hall MD [address] [place] [address] PCP - General 01/06/10 03/18/14 documented as of this encounter
--- OUTSIDE RECORDS SUMMARY | 2023-10-28 00:50 | XMS_ITS | Encounter Summary ---
Author Organization [facility] Address [facility] [place] [address] Care Team Providers Care Animal Husbandry Worker Name Role Phone Michelle Hall MD Primary Care Provider [phone] Encounter Details Date Type Department Care Team (Late st Contact Info) Description 02/26/2014 Orders Only Hematology Oncology at [address] [phone] Sal Ward MD [address] [place] [phone] Social History Tobacco Use Types Packs/Day Years Used Date Smoking Tobacco: Never Assessed Sex and Gender Information Value Date Recorded Sex Assigned at Not on file Gender Identity Not on file Sexual Orientation Not on file documented as of this encounter Plan of Treatment Upcoming Encounters Date Type Department Care Team (Late Contact Info) Description 12/07/2023 12:00 PM EDT Office Visit Dermatology at [facility] [address] [place] [address] Juan F Chappell MD [facility] DR RANDEE [place] [address] documented as of this encounter Procedures Procedure Name Priority Date/Time Associated Diagnosis Comments FILM LIBRARY STORAGE ONLY CT CHEST Routine 02/26/2014 1:55 PM EST documented in this encounter Results * Film Library- Storage only CT Chest (02/26/2014 1:55 PM EST) Anatomical Region Laterality Modality Chest Other 02/26/2014 1:55 PM EST Narrative 03/18/2014 2:11 PM EST This is a Non-reportable exam Procedure Note AMANDA, UNSIGNED REPORT - 03/18/2014 This is a Non-reportable exam Sal Ward MD IMG FILM LIBRARY ORD ERABLES documented in this encounter Visit Diagnoses Not on filedocumented in this encounter Care Teams Animal Husbandry Worker Relationship Specialty Start Date End Date Michelle Hall MD [address] [place] [address] PCP - General 01/06/10 03/18/14 documented as of this encounter
--- OUTSIDE RECORDS SUMMARY | 2023-10-28 00:50 | XMS_ITS | Clinical Summary ---
Author Organization [facility] Address [address] [place] [address] Care Team Providers Care Marketing Education Teacher Name Role Phone Belén Griffin MD Primary Care Provider [phone] Allergies No known active allergies Medications Medication [...] Active Active Problems No known active problems Encounters Date Type Department Care Team Description 10/26/2023 Lab Requisition [facility] Pathology & Laboratory Medicine [address] [address] Outr Resulting Lab, Provider 10/21/2023 Lab Requisition [facility] Pathology & Laboratory [address] [address] Outr Resulting Lab, Provider from Last 3 Months Social History Tobacco Use Types Packs/Day Years Used Date Smoking Tobacco: Never Assessed Interpersonal Safety Answer Date Record ed Physically Hurt Never 06/22/2020 Verbally Threaten Not on file 06/22/2020 Sex and Gender Information Value Date Recorded Sex Assigned at Not on file Gender Identity Not on file Sexual Orientation Not on file Obstetrics History Last Filed Vital Signs Vital Sign Reading Time Taken Comments Blood Pressure 134/74 07/15/2020 0734 EDT Pulse 76 07/15/2020 0734 EDT Temperature 36.6 ??C (97.9 ??F) 07/15/2020 0734 EDT Respiratory Rate - - Oxygen Saturation - - Inhaled Oxygen Concentration - - Weight - - Height - - Body Mass Index - - Plan of Treatment Health Maintenance Due Date Last Done Comments Hepatitis C Screen 1950 RSV Immunization ( o r 60+ Years) (1 - 1-dose 60+ series) 2012 Fall Risk Screening 2017 COVID-19 Vaccine (2022-24 season) 2023 Procedures Procedure Name Priority Date/Time Associated Diagnosis Comments DOUBLE STRANDED DNA ANTIBODY, IGG Routine 10/26/2023 15:02 EDT NURSE RECRUITER ANTIBODY, IGG Routine 10/26/2023 15: 02 EDT SM (SWANSON) ANTIBODY, IGG Routine 10/26/2023 15:02 EDT SS-B (LA) ANTIBODY, IGG Routine 10/26/2023 15:02 EDT RHEUMATOID FACTOR Routine 10/21/2023 7:3 0 EDT ANTI NUCLEAR AB (MARYA), IFA Routine 10/21/2023 7:30 EDT from Last 3 Months Results * SS-B (LA) ANTIBODY, IGG (10/26/2023 15:02 EDT) SSB Antibody, IgG <3.3 <20.0 CU 024 16:52 EDT [facility] Comment:Results were obtaine d with the [employer] QUANTA Flash SS-B chemiluminescent immunoassay. Values obtained with different manufacturers' assay methods must not be used interchangeably. Blood VENOUS BLOOD / Unknown 10/26/2023 15:02 EDT 10/26/2023 21:39 EDT Provider Outr Resulting Lab IMMUNOLOGY A ND SEROLOGY ORDERABLES [facility] [address] [place], [place] [id number] * SM (SWANSON) ANTIBODY, IGG (10/26/2023 15:02 EDT) Pathologist [facility] SM (Swanson) Antibody, IgG <8.0 <20.0 CU 10/27/2023 16:52 EDT [facility] Comment:Results were obtaine d with the [employer] QUANTA Flash Sm chemiluminescent immunoassay. Values obtained with different manufacturers' assay methods must not be used interchangeably. Blood VENOUS BLOOD / Unknown 10/26/2023 15:02 EDT 10/26/2023 21:39 EDT Provider Outr Resulting Lab IMMUNOLOGY A ND SEROLOGY ORDERABLES Performing Organization Address [facility] Co de Phone Number [facility] [address] [place], [place] [id number] * NURSE RECRUITER ANTIBODY, IGG (10/26/2023 15:02 EDT) [facility] NURSE RECRUITER Antibody, IgG <6.0 <20.0 CU 024 16:52 EDT [facility] Comment:Results were obtaine d with the [employer] Flash NURSE RECRUITER chemilumenscent immunoassay. Values obtained with different manufacturers' assay methods may not be used interchangeably. Blood VENOUS BLOOD / Unknown 10/26/2023 15:02 EDT 10/26/2023 21:39 EDT Provider Outr Resulting Lab IMMUNOLOGY A ND SEROLOGY ORDERABLES Performing Organization Address City/[facility]/ZIP Co de Phone Number [facility] [address] [place], [place] [phone] * DOUBLE STRANDED DNA ANTIBODY, IGG (10/26/2023 15:02 EDT) [facility] dsDNA Ab, IgG <22.0 <27.0 IU/mL 10/27/2023 16:52 EDT [facility] Comment: Negative: <27.0 IU/mL Indeterminate: 27.0 - 35.0 IU/mL Positive: >35.0 IU/mL Results were obtained with [employer] QUANTA Flash dsDNA chemiluminescent immunoassay. Values obtained with different manufacturers' assay methods may not be used interchangeably. Blood VENOUS BLOOD / Unknown 10/26/2023 15:02 EDT 10/26/2023 21:39 EDT Provider Outr Resulting Lab IMMUNOLOGY A ND SEROLOGY ORDERABLES Performing Organization Address [facility] Co de Phone Number [facility] [address] [place] [address] * RHEUMATOID FACTOR (10/21/2023 7:30 EDT) Rheumatoid Factor <8.6 <12.0 IU/mL 10/21/2023 18:11 EDT [facility] Blood VENOUS BLOOD / Unknown 10/21/2023 7:30 EDT 10/21/2023 17:52 EDT Provider Outr Resulting Lab CHEMISTRY & BLOOD GAS ORDERABLES Performing Organization Address [facility] de Phone Number [facility] [address] [place] [address] * (ABNORMAL) ANTI NUCLEAR AB (MARYA), IFA (10/21/2023 7:30 EDT) MARYA Interpretation Positive(A) Negative 10/24/2023 13:35 EDT [facility] Comment: For titers greater than [...] 1:320 Dense Fine Speckled 10/24/2023 13:35 EDT [facility] Blood VENOUS BLOOD / Unknown 10/21/2023 7:30 EDT 10/21/2023 17:52 EDT Narrative [facility] - 10/24/2023 13:35 EDT Results were obtained with the [employer] CRISTOBALA [employer] HEp-2 MARYA Kit by indirect immunofluorescence. Provider Outr Resulting Lab IMMUNOLOGY A ND SEROLOGY ORDERABLES [facility] [address] [place] [address] from Last 3 Months Care Teams Marketing Education Teacher Relationship Specialty Start Date End Date Belén Griffin MD [address] [place] [address] [address] [place] [phone] PCP - General 07/15/20
--- OUTSIDE RECORDS SUMMARY | 2023-10-28 00:50 | XMS_ITS | Encounter Summary ---
Author Organization [facility] [place] [address] Care Team Providers Care Media Production Support Manager Name Role Phone Mellissa Gonsales MD Primary Care Provider [phone] Encounter Details Date Type Department Care Team (Late st Contact Info) Description 03/28/2014 9:11 AM EST - 03/28/2014 10:40 AM [facility] Encounter Non-Invasive [place] [phone] Lymphoma Social History Tobacco Use Types Packs/Day Years Used Date Smoking Tobacco: Never Sex and Gender Information Value Date Recorded Sex Assigned at Not on file Gender Identity Not on file Sexual Orientation Not on file documented as of this encounter Medications at Time of Discharge Medication Sig Dispensed Refills Start Date End Date [facility]-3 Fatty Acids-Vitamin E (FISH OIL) 1,000 mg [...] 12:00 PM EDT Office Visit Dermatology at [facility] [address] [place] [address] Juan F Chappell MD [facility] [address] [place] [address] documented as of this encounter Procedures Procedure Name Priority Date/Time Associated Diagnosis Comments ECHOCARDIOGRAM TRANSTHORACIC Routine 03/28/2014 10:46 AM EST Lymphoma documented in this encounter Results * Echocardiogram Transthoracic(Leb) (03/28/2014 10:46 AM EST) EF 62 HEARTLAB SYSTEM Anatomical Region Laterality Modality Other 03/28/2014 Narrative 03/28/2014 11:04 AM EST Procedure: ? Transthoracic Echocardiogram Patient: ? AP Campuzano ?(Age): 1950(63) Med Rec#: ?[id number] ? Sex: ?F ? Site Loc: ?[facility] ? Ht / Wt: ??159(cm)/66(kg) Pt. Loc: ? Echo Lab ? BSA: ?1.71 Study Date: ?03/28/2014 ? Pt. Type: Outpatient Tape: ? Referring: Kimberly Mondragon Manager Merchandising: Sandrine Ambrose Diagnosis:CPT Code(s): ??Echo Full (05689), ??Spectral Doppler (02607), Color Doppler (20919), Indication(s): ??Chemotherapy-baseline Rhythm: HR ?BP ?123/58 ?? [...] ? Mid-Inferior ?Normal ? Mid-Inferoseptal ?Normal ? [place]-Septal ? Normal ? [place]-Anterior ? Normal ? [place]-Lateral ?Normal ? [place]-Inferior ? Normal ? [place]-Tip ?Normal ? Chambers ?Value ?Units (Range) ? [...] 03/28/2014 11:03:42 Images reviewed and interpretation verified [facility] Procedure Note Antonio Johansen MD - 03/28/2014 Procedure: Transthoracic Echocardiogram Patient: AP GALVEZ(Age): 1950(63) Med Rec#: [id number] Sex: F Site Loc: [facility] Ht / Wt: 159(cm)/66(kg) Pt. Loc: Echo Lab BSA: 1.71 Study Date: 03/28/2014 Pt. Type: Outpatient Tape: Referring: Kimberly Mondragon Manager Merchandising: Sandrine Ambrose Diagnosis:CPT Code(s): Echo Full (18697), Spectral Doppler (24635), Color Doppler (49846), Indication(s): Chemotherapy-baseline Rhythm: HR BP 123/58 SUMMARY: [...] Normal Mid-Posterolateral Normal Mid-Inferior Normal Mid-Inferoseptal Normal [place]-Septal Normal [place]-Anterior Normal [place]-Lateral Normal [place]-Inferior Normal [place]-Tip Normal Chambers Value Units (Range) EF Bi-p [...] report has been electronically signed by: Antonio Johanesn M.D. 03/28/2014 11:03:42 Images reviewed and interpretation verified [facility] Kimberly Mondragon MD ECHO ORDERABLES documented in this encounter Visit Diagnoses Diagnosis Lymphoma Other malignant lymphomas, unspecified site, extranodal and solid organ sites documented in this encounter Care Teams Media Production Support Manager Relationship Specialty Start Date End Date Mellissa Gonsales MD PCP - General 03/21/14 04/07/14 documented as of this encounter
--- NOTE | 2023-10-28 10:10 | DI.RAD_ITS ---
Exam(s) XR ARTHRITIS SERIES EXAM: XR ARTHRITIS SERIES CLINICAL HISTORY: painful hands - rebecca thumbs,m25,541,m25.542,arthralgia both hands. TECHNIQUE: 2D digital imaging was performed. Two views of both hands. COMPARISON: No exams were available for comparison FINDINGS: BONES: No acute fracture is present. No erosive or productive bony lesions are seen. JOINTS: No dislocation present. Severe degenerative changes at the right 1st carpal metacarpal jodi nt with prominent periarticular spurring and joint space narrowing. Mild degenerative changes are se en at the left 1st CMC joint. No significant degenerative changes seen elsewhere. SOFT TISSUE: Normal. 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 DATA REPOSITORY: RADIATION DOSE DELIVERED:
== END 2023-10-28 00:42 ==
LOC: DI 00:22
PROVIDERS: PCP Family Medicine; Visit Provider Family Medicine
DX: M18.0 Bilateral primary osteoarthritis of first carpometacarpal joints (principal)
CPT/HCPCS: 73120

== ENCOUNTER 2024-05-02 02:02 | Outpatient (CLI) | payer MEDICARE, SELFPAY ==
--- NOTE | 2024-05-02 07:30 | DI.MAMMO_ITS ---
Exam(s) MAMMO SCREENING EXAM: MAMMO SCREENING CLINICAL HISTORY: screening,Z12.39 TECHNIQUE: Mammograms were interpreted according to the usual protocol including computer analysis w Granular CAD system, tomosynthesis and C-view imaging. COMPARISON: 2016 to 2022 FINDINGS: The breasts are composed of scattered fibroglandular densities, Breast Density category B. No suspicious masses or suspicious microcalcifications are seen. No skin thickening or abnormal axillary lymph nodes are seen. There has been no significant change from prior exams. IMPRESSION: BI-RADS Category 1, Negative mammogram Yearly screening mammography is recommended. Breast Density - Category B, scattered fibroglandular densities. A negative radiographic report should not delay biopsy if a dominant or clinically suspicious mass is present. Up to ten percent of cancers are not identified on mammography. A negative report may reinforce clinical impression. Adenosis and dense breasts may obscure an underlying neoplasm. False positive reports average 6 to 10%. Patient will receive a letter notifying them of these results.
== END 2024-05-02 02:22 ==
LOC: DI 02:02
PROVIDERS: PCP Family Medicine; Visit Provider Family Medicine
DX: Z12.31 Encounter for screening mammogram for malignant neoplasm of breast (principal); R92.323 Mammographic fibroglandular density, bilateral breasts
CPT/HCPCS: 77063; 77067

== ENCOUNTER 2024-10-19 08:44 | Outpatient (CLI) | payer MEDICARE, SELFPAY ==
[2024-10-19 08:51] LABS: Hemoglobin A1C 5.7 % (<5.7)
[2024-10-19 08:59] LABS: ALT 73 U/L (14-59); AST 33 U/L (15-37); Albumin 4.2 g/dL (3.4-5.0); Alkaline Phosphatase 97 U/L (46-116); Anion Gap 5.4 mmol/L (3-11); BUN 23 mg/dL (7-18); Bilirubin, Total 1.3 mg/dL (0.2-1.0); CO2 33.6 mmol/L (21.0-32.0); Calcium 10.6 mg/dL (8.5-10.1); Calculated LDL 103 mg/dL (<100); Chloride 100 mmol/L (98-107); Cholesterol 217 mg/dL (<200); Estimated GFR 67.92 (mL/min/1.73m2); Glucose 95 mg/dL (74-106); HDL Cholesterol 101 mg/dL (>or=50); Potassium 4.2 mmol/L (3.5-5.1); Sodium 139 mmol/L (136-145); Total Protein 7.6 g/dL (6.4-8.2); Triglyceride 69 mg/dL (<150)
[2024-10-20 02:37] LABS: Hepatitis C Ab w Rflx HCV PCR Negative (Negative)
== END 2024-10-19 08:45 | disposition home or self-care (01) ==
LOC: LBO 08:45
PROVIDERS: PCP Family Medicine; Visit Provider Family Medicine
DX: Z11.59 Encounter for screening for other viral diseases (principal); E11.9 Type 2 diabetes mellitus without complications; I10 Essential (primary) hypertension; E83.52 Hypercalcemia
CPT/HCPCS: 36415; 80053; 80061; 86803; 83036; 83970